=== PATIENT | male | born 1940 | race Caucasian/White ===

== ENCOUNTER 2017-08-04 13:58 | Emergency (ER) | payer MEDICARE ==
[~2017-08-04] VITALS: Ht 182.9 cm; Wt 86.6 kg
[~2017-08-04 13:58] MED LIST: AMLO10TA82 PO; AMOX500C2 PO; ASP81CT PO; ASPI-892 PO; ATOR80TA PO; CLN.1TRX PO; CLOP75TA PO; CRESTOR40 MG PO; EZET1TAB41 PO; FELO10TA31 PO; FISH1CAP15 PO; GBPN300C PO; GLIP10TA13 PO; GLIP5TAB13 PO; INSA10V1 SC; INSASP10V SQ; INSU100I14 SQ; INSU100I16 SQ; LEVO750T6 PO; METO100T5 PO; METO25TA PO; METO25TA2 PO; MULT-1030 PO; NF-ESOM40C PO; PHEN-633 PO; QUIN20TA15 PO; QUIN40TA17 PO; ROSU20TA14 PO; SULF1TAB38 PO; TMSL.4C PO
--- OUTSIDE RECORDS SUMMARY | 2017-08-04 14:05 | XMS REPORT | Continuity of Care Document ---
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 06/20/2011 Ot 397.0 TRICUSPID VALVE DISEASE 06/20/2011 Ot 401.9 HYPERTENSION NOS 06/20/2011 Ot 414.01 CORONARY ATHEROSCLEROSIS OF [place] CORON 06/20/2011 Ot 424.0 MITRAL VALVE DISORDER 06/20/2011 Ot 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 06/20/2011 Ot 440.0 AORTIC ATHEROSCLEROSIS 06/20/2011 Ot 599.0 URIN TRACT INFECTION NOS 06/20/2011 Ot 729.89 MUSCSKEL SYMPT LIMB NEC 06/20/2011 Ot 781.2 ABNORMALITY OF GAIT 06/20/2011 Ot V45.82 PERCUTANEOUS TRANSLUM CORON ANGIOPLASTY 05/06/2013 VICKIE DIXON MD Ot 413.9 ANGINA PECTORIS NEC/NOS 05/06/2013 VICKIE DIXON MD Ot V57.89 REHABILITATION PROC NEC 01/16/2015 SEBASTIÁN VALLE MD Ot 433.10 01/16/2015 SEBASTIÁN VALLE MD Ot 434.91 02/05/2015 SEBASTIÁN VALLE MD Ot 433.10 02/05/2015 SEBASTIÁN VALLE MD Ot 434.91 02/07/2015 SEBASTIÁN VALLE MD Ot 433.10 02/07/2015 SEBASTIÁN VALLE MD Ot 434.91 02/13/2015 SEBASTIÁN VALLE MD Ot 305.1 02/13/2015 SEBASTIÁN VALLE MD Ot 414.00 02/13/2015 SEBASTIÁN VALLE MD Ot 429.3 02/13/2015 SEBASTIÁN VALLE MD Ot 433.10 02/13/2015 SEBASTIÁN VALLE MD Ot 434.91 02/20/2015 JOSELUIS KELLEY Ot 250.00 02/20/2015 JOSELUIS KELLEY Ot 305.1 02/20/2015 JOSELUIS KELLEY Ot 414.00 02/20/2015 JOSELUIS KELLEY Ot 433.10 02/20/2015 JOSELUIS KELLEY Ot V58.67 03/02/2015 SEBASTIÁN VALLE MD Ot 433.10 03/02/2015 SEBASTIÁN VALLE MD Ot 434.91 03/02/2015 SEBASTIÁN VALLE MD Ot 305.1 03/02/2015 SEBASTIÁN VALLE MD Ot 414.00 03/02/2015 SEBASTIÁN VALLE MD Ot 429.3 03/02/2015 SEBASTIÁN VALLE MD Ot 433.10 03/02/2015 SEBASTIÁN VALLE MD Ot 434.91 03/10/2015 SEBASTIÁN VALLE MD Ot 305.1 03/10/2015 SEBASTIÁN VALLE MD Ot 414.00 03/10/2015 SEBASTIÁN VALLE MD Ot 429.3 03/10/2015 SEBASTIÁN VALLE MD Ot 433.10 03/10/2015 HALIE LE MD Ot 780.4 03/13/2015 HALIE LE MD Ot 780.4 03/14/2015 SEBASTIÁN VALLE MD Ot 250.00 DIAB BUCKY WO COMPL, TYPE II OR UNSPEC TY 03/14/2015 SEBASTIÁN VALLE MD Ot 272.4 HYPERLIPIDEMIA NEC/NOS 03/14/2015 SEBASTIÁN VALLE MD Ot 305.1 TOBACCO USE DISORDER 03/14/2015 SEBASTIÁN VALLE MD Ot 356.9 IDIO PERIPH NEURPTHY NOS 03/14/2015 SEBASTIÁN VALLE MD Ot 401.9 HYPERTENSION NOS 03/14/2015 SEBASTIÁN VALLE MD Ot 414.01 CORONARY ATHEROSCLEROSIS OF [place] CORON 03/14/2015 SEBASTIÁN VALLE MD Ot 414.2 CHRONIC TOTAL OCCLUSION OF CORONARY [place] 03/14/2015 SEBASTIÁN VALLE MD Ot 414.4 CORONARY ATHEROSCLEROSIS DUE TO CALCIFIE 03/14/2015 SEBASTIÁN VALLE MD Ot 426.0 ATRIOVENT BLOCK COMPLETE 03/14/2015 SEBASTIÁN VALLE MD Ot 438.20 LATE EFF-CEREBR DIS,HEMIPLEGIA AFFECTING 03/14/2015 SEBASTIÁN VALLE MD Ot 780.4 DIZZINESS AND GIDDINESS 03/14/2015 SEBASTIÁN VALLE MD Ot 794.30 ABN CARDIOVASC STUDY NOS 03/14/2015 SEBASTIÁN VALLE MD Ot V45.82 PERCUTANEOUS TRANSLUM CORON ANGIOPLASTY 03/14/2015 SEBASTIÁN VALLE MD, Ot V58.67 LONG-TERM (CURRENT) USE OF INSULIN 03/14/2015 SEBASTIÁN VALLE MD, Ot V58.69 OT MED,LT,CURRENT USE 03/30/2015 SEBASTIÁN VALLE MD Ot 305.1 03/30/2015 SEBASTIÁN VALLE MD Ot 414.00 03/30/2015 SEBASTIÁN VALLE MD Ot 429.3 03/30/2015 SEBASTIÁN VALLE MD Ot 433.10 04/11/2015 JOSELUIS KELLEY Ot 250.00 04/11/2015 JOSELUIS KELLEY Ot 305.1 04/11/2015 JOSELUIS KELLEY Ot 414.00 04/11/2015 JOSELUIS KELLEY Ot 433.10 04/11/2015 JOSELUIS KELLEY Ot V58.67 04/19/2015 JOSELUIS KELLEY Ot 250.00 04/19/2015 JOSELUIS KELLEY Ot 305.1 04/19/2015 JOSELUIS KELLEY Ot 414.00 04/19/2015 JOSELUIS KELLEY Ot 433.10 04/19/2015 JOSELUIS KELLEY Ot V58.67 04/26/2015 SEBASTIÁN VALLE MD Ot 414.01 CORONARY ATHEROSCLEROSIS OF [place] CORON 04/26/2015 SEBASTIÁN VALLE MD Ot 426.0 ATRIOVENT BLOCK COMPLETE 04/26/2015 SEBASTIÁN VALLE MD Ot 427.81 SINOATRIAL NODE DYSFUNCT 04/26/2015 SEBASTIÁN VALLE MD Ot 427.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 04/26/2015 SEBASTIÁN VALLE MD Ot 780.2 SYNCOPE AND COLLAPSE 04/26/2015 SEBASTIÁN VALLE MD Ot 780.4 DIZZINESS AND GIDDINESS 04/26/2015 SEBASTIÁN VALLE MD Ot V12.54 PERSONAL HX OF TIA, CEREBRAL INFARCTION 04/26/2015 SEBASTIÁN VALLE MD Ot V15.82 HISTORY OF TOBACCO USE 04/26/2015 SEBASTIÁN VALLE MD Ot V45.82 PERCUTANEOUS TRANSLUM CORON ANGIOPLASTY 04/26/2015 SEBASTIÁN VALLE MD, Ot V58.67 LONG-TERM (CURRENT) USE OF INSULIN 04/26/2015 SEBASTIÁN VALLE MD, Ot V58.69 OT MED,LT,CURRENT USE 05/20/2015 JOSELUIS KELLEY Ot 250.00 DIAB BUCKY WO COMPL, TYPE II OR UNSPEC TY 05/20/2015 JOSELUIS KELLEY Ot 305.1 TOBACCO USE DISORDER 05/20/2015 JOSELUIS KELLEY Ot 414.00 CORON ATHEROSCLER NOS TYPE VESSEL, NATIV 05/20/2015 JOSELUIS KELLEY Ot 433.10 CAROTID ARTERY OCCLUSION W O CEREBRAL IN 05/20/2015 JOSELUIS KELLEY Ot V58.67 LONG-TERM (CURRENT) USE OF INSULIN 08/04/2015 BRIDGET GAMBOA MD Ot E11.649 TYPE 2 DIABETES MELLITUS WITH HYPOGLYCEM 08/04/2015 BRIDGET GAMBOA MD Ot R55 SYNCOPE AND COLLAPSE 08/04/2015 BRIDGET GAMBOA MD Ot Z79.4 MCFP (CURRENT) USE OF INSULIN 10/26/2015 VICKIE PRESTON MD Ot G47.33 OBSTRUCTIVE SLEEP APNEA (ADULT) (PEDIATR 07/11/2016 EVERTON GARCIA MD Ot 592.0 CALCULUS OF KIDNEY 07/11/2016 EVERTON GARCIA MD Ot 599.70 HEMATURIA, UNSPECIFIED 07/11/2016 DENIZ KENT DO Ot 298.9 PSYCHOSIS NOS 07/11/2016 DENIZ KENT DO Ot 780.4 DIZZINESS AND GIDDINESS 07/11/2016 DENIZ KENT DO Ot 780.97 ALTERED MENTAL STATUS 07/11/2016 DENIZ KENT DO Ot 782.0 SKIN SENSATION DISTURB 07/11/2016 DENIZ KENT DO Ot 298.9 PSYCHOSIS NOS 07/11/2016 DENIZ KENT DO Ot 433.30 MULT BILTRAL ARTERY OCCLUSION WO CEREBRA 07/11/2016 DENIZ KENT DO Ot 780.97 ALTERED MENTAL STATUS 07/11/2016 DENIZ KENT DO Ot 298.9 PSYCHOSIS NOS 07/11/2016 DENIZ KENT DO Ot 435.9 TRANS CEREB ISCHEMIA NOS 07/11/2016 DENIZ KENT DO Ot 780.4 DIZZINESS AND GIDDINESS 07/11/2016 SEBASTIÁN VALLE MD Ot 305.1 TOBACCO USE DISORDER 07/11/2016 SEBASTIÁN VALLE MD Ot 414.00 CORON ATHEROSCLER NOS TYPE VESSEL, NATIV 07/11/2016 SEBASTIÁN VALLE MD Ot 429.3 CARDIOMEGALY 07/11/2016 SEBASTIÁN VALLE MD Ot 433.10 CAROTID ARTERY OCCLUSION W O CEREBRAL IN 07/11/2016 SEBASTIÁN VALLE MD Ot 434.91 CEREBRAL ART OCCLUSION NOS W CEREBRAL IN 07/11/2016 SEBASTIÁN VALLE MD Ot 305.1 TOBACCO USE DISORDER 07/11/2016 SEBASTIÁN VALLE MD Ot 414.00 CORON ATHEROSCLER NOS TYPE VESSEL, NATIV 07/11/2016 SEBASTIÁN VALLE MD Ot 429.3 CARDIOMEGALY 07/11/2016 SEBASTIÁN VALLE MD Ot 433.10 CAROTID ARTERY OCCLUSION W O CEREBRAL IN 07/11/2016 SEBASTIÁN VALLE MD Ot 433.10 CAROTID ARTERY OCCLUSION W O CEREBRAL IN 07/11/2016 SEBASTIÁN VALLE MD Ot 434.91 CEREBRAL ART OCCLUSION NOS W CEREBRAL IN 07/11/2016 HALIE LE MD Ot 780.4 DIZZINESS AND GIDDINESS 07/11/2016 SEBASTIÁN VALLE MD Ot 433.10 CAROTID ARTERY OCCLUSION W O CEREBRAL IN 07/11/2016 SEBASTIÁN VALLE MD Ot 434.91 CEREBRAL ART OCCLUSION NOS W CEREBRAL IN 07/11/2016 JOSELUIS KELLEY Ot 250.00 DIAB BUCKY WO COMPL, TYPE II OR UNSPEC TY 07/11/2016 JOSELUIS KELLEY Ot 305.1 TOBACCO USE DISORDER 07/11/2016 JOSELUIS KELLEY Ot 414.00 CORON ATHEROSCLER NOS TYPE VESSEL, NATIV 07/11/2016 JOSELUIS KELLEY Ot 433.10 CAROTID ARTERY OCCLUSION W O CEREBRAL IN 07/11/2016 JOSELUIS KELLYE Ot V58.67 LONG-TERM (CURRENT) USE OF INSULIN 07/14/2016 BRIDGET MORRELL MD Ot I51.9 HEART DISEASE, UNSPECIFIED 07/14/2016 BRIDGET MORRELL MD Ot I65.23 OCCLUSION AND STENOSIS OF [place]ILATERAL [place] 07/15/2016 SEBASTIÁN VALLE MD Ot I07.1 RHEUMATIC TRICUSPID INSUFFICIENCY 07/15/2016 SEBASTIÁN VALLE MD Ot I15.9 SECONDARY HYPERTENSION, UNSPECIFIED 07/15/2016 SEBASTIÁN VALLE MD Ot I51.7 CARDIOMEGALY 07/15/2016 SEBASTIÁN VALLE MD Ot I65.23 OCCLUSION AND STENOSIS OF [place]ATERAL [place] 07/29/2016 SEBASTIÁN VALLE MD Ot I07.1 RHEUMATIC TRICUSPID INSUFFICIENCY 07/29/2016 SEBASTIÁN VALLE MD Ot I51.7 CARDIOMEGALY 07/29/2016 SEBASTIÁN VALLE MD Ot I65.23 OCCLUSION AND STENOSIS OF [place]ILATERAL [place] 07/29/2016 SEBASTIÁN VALLE MD Ot I07.1 RHEUMATIC TRICUSPID INSUFFICIENCY 07/29/2016 SEBASTIÁN VALLE MD Ot I51.7 CARDIOMEGALY 07/29/2016 SEBASTIÁN VALLE MD Ot I65.23 OCCLUSION AND STENOSIS OF [place]ATERAL [place] 08/05/2016 BRIDGET MORRELL MD Ot I51.9 HEART DISEASE, UNSPECIFIED 08/05/2016 BRIDGET MORRELL MD Ot I65.23 OCCLUSION AND STENOSIS OF [place]ILATERAL [place] 08/06/2016 SEBASTIÁN VALLE MD Ot I07.1 RHEUMATIC TRICUSPID INSUFFICIENCY 08/06/2016 SEBASTIÁN VALLE MD Ot I15.9 SECONDARY HYPERTENSION, UNSPECIFIED 08/06/2016 SEBASTIÁN VALLE MD Ot I51.7 CARDIOMEGALY 08/06/2016 SEBASTIÁN VALLE MD Ot I65.23 OCCLUSION AND STENOSIS OF [place]ILATERAL [place] 08/07/2016 PETROS GUTIÉRREZ, BRIDGET Silva Ot I51.9 HEART DISEASE, UNSPECIFIED 08/07/2016 BRIDGET MORRELL MD Ot I65.23 OCCLUSION AND STENOSIS OF [place] 08/19/2016 SEBASTIÁN VALLE MD Ot I07.1 RHEUMATIC TRICUSPID INSUFFICIENCY 08/19/2016 SEBASTIÁN VALLE MD Ot I51.7 CARDIOMEGALY 08/19/2016 SEBASTIÁN VALLE MD Ot I65.23 OCCLUSION AND STENOSIS OF [place] 09/01/2016 SEBASTIÁN VALLE MD Ot I07.1 RHEUMATIC TRICUSPID INSUFFICIENCY 09/01/2016 SEBASTIÁN VALLE MD Ot I51.7 CARDIOMEGALY 09/01/2016 SEBASTIÁN VALLE MD Ot I65.23 OCCLUSION AND STENOSIS OF [place] Procedures Results Encounters ACCT No. Visit Date/Time Discharge Status Pt. Type Provider Facility Loc./Unit Complaint [id number] 07/28/2016 07:16:00 2015 23:59:59 CLS Outpatient SEBASTIÁN VALLE MD [facility] CARD LVH,TR,CAROTID ARTERY STENOSIS [id number] 07/14/2016 07:39:00 2015 23:59:59 CLS Outpatient SEBASTIÁN VALLE MD [facility] CARD LVH,TR [id number] 07/11/2016 14:18:00 2015 23:59:59 CLS Outpatient BRIDGET MORRELL MD [facility] RAD LVH,TR,DIASTOLIC DYSFUNCTION [id number] 10/25/2015 20:45:00 2015 06:40:00 DIS Outpatient MOHAN GUTIÉRREZ, VICKIE Zarate [facility] SLEEP SNORING,JANEL [id number] 08/04/2015 11:26:00 2014 13:22:00 DIS Emergency BRIDGET GAMBOA MD [facility] ER AMS [id number] 05/21/2015 09:00:00 2014 23:59:59 CLS Preadmit JOSELUIS KELLEY [facility] CARD CAD,EMILIO [id number] 02/19/2015 08:57:00 2014 00:01:00 DIS Outpatient JOSELUIS KELLEY [facility] CARD CAD,EMILIO [id number] 04/25/2015 09:23:00 2014 13:25:00 DIS Outpatient SEBASTIÁN VALLE MD [facility] CATH CHB,CAD,BRADYCARDIA,DIZZINESS [id number] 03/14/2015 08:55:00 2014 17:00:00 DIS Outpatient SEBASTIÁN VALLE MD [facility] CATH CAD,HTN,HLP,TOBACCOISM, COMPLETE HEART BLOCK [id number] 02/07/2015 07:43:00 2014 23:59:59 CLS Outpatient SEBASTIÁN VALLE MD [facility] CARD CAD,EMILIO,LVH [id number] 01/22/2015 07:55:00 2014 23:59:59 CLS Outpatient HALIE LE MD [facility] RT DIZZINESS, VERTIGO [id number] 01/19/2015 08:43:00 2014 23:59:59 CLS Outpatient SEBASTIÁN VALLE MD [facility] CARD CVA,CAD,EMILIO,LVH [id number] 01/05/2015 09:54:00 2014 23:59:59 CLS Outpatient SEBASTIÁN VALLE MD [facility] RAD CVA, CAROTID ARTERY STENOSIS [id number] 01/03/2015 17:29:00 2014 23:59:59 CLS Outpatient SEBASTIÁN VALLE MD [facility] LAB CVA,CAROTID ARTERY STENOSIS [id number] 01/20/2014 10:31:00 2013 23:59:59 CLS Outpatient DENIZ KENT DO [facility] RAD TRANS ISCHEMIC ATTACK [id number] 01/12/2014 14:21:00 2013 23:59:59 CLS Outpatient DENIZ KENT DO [facility] RAD CONFUSION,CHANGE IN MENTAL STATUS [id number] 01/10/2014 13:49:00 2013 23:59:59 CLS Outpatient DENIZ KENT DO [facility] RAD CONFUSION,CHANGE IN MENTAL STATUS [id number] 01/04/2014 11:08:00 2013 23:59:59 CLS Outpatient EVERTON GARCIA MD [facility] RAD HEMATURIA [id number] 05/06/2013 09:32:00 2012 12:53:00 DIS Outpatient VICKIE DIXON MD [facility] CR STABLE ANGINA [id number] 06/18/2011 08:15:00 Document Registration
[2017-08-04] MEDS ORDERED: NS IV 1000 ML 1,000 ML IV ONE (14:09)
[2017-08-04 14:17] LABS: BASOPHILS % (AUTO) 0 % (0-10); EOSINOPHILS # (AUTO) 0.2 10^3/uL (0.0-0.3); EOSINOPHILS % (AUTO) 2 % (0-10); LYMPHOCYTES # (AUTO) 2.3 X 10^3 (1.0-4.0); LYMPHOCYTES % (AUTO) 36 % (12-44); MEAN CORPUSCULAR HEMOGLOBIN 31 PG (25-34); MEAN CORPUSCULAR HGB CONC 35 G/DL (32-36); MEAN CORPUSCULAR VOLUME 90 FL (80-99); MEAN PLATELET VOLUME 10.7 FL (7.4-10.4); MONOCYTES # (AUTO) 0.7 X 10^3 (0.0-1.0); MONOCYTES % (AUTO) 11 % (0-12); NEUTROPHILS # (AUTO) 3.2 X 10^3 (1.8-7.8); NEUTROPHILS % (AUTO) 50 % (42-75); PLATELET COUNT 187 10^3/uL (130-400); RED CELL DISTRIBUTION WIDTH 12.5 % (10.0-14.5); WHITE BLOOD COUNT 6.4 10^3/uL (4.3-11.0)
--- NOTE | 2017-08-04 14:18 | ED Syncope ---
General Chief Complaint: Dizziness/Syncope Stated Complaint: SYNCOPE Source of Information: Patient, EMS, Spouse Exam Limitations: Other (vascular dementia) History of Present Illness Time Seen by Provider: 13:58 Initial Comments Patient arrives at ER by EMS with a chief complaint of just prior to arrival his found him in the garage sweeping leaves out leaning against the sidewall of the garage not making much sense. She lowered him to the ground and then got him a glucose mint and check his blood sugar immediately and it was 130. 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 She's noticed no change in his speech or change in his facial asymmetry. He has not had a stroke and no recent changes in his medications. He has been taking his medications appropriately. He has a history of seizures for which he has been placed on Dilantin 2 years ago. He had it checked about 2 months ago. He had his pacemaker checked 2 weeks ago at his sql server consultant, Dr. Karimi's office. For the past several days to week his son has noted the patient has been a very heavy sleeper when he comes by to check on him over his lunch. And difficult to arouse sometime's. His blood sugars also been elevated in the 200s and 300s in the afternoon and evening and this has concerned his that maybe he has an infection so she took him to Dr. Kent's office and had him checked out but they did not find anything in his urine or blood work. This was about 1-2 weeks ago. Several months ago the patient's metoprolol was changed from 25 mg succinate twice a day to 100 mg succinate daily at bedtime. EMS denies incontinence or postictal state when they arrived. The patient denies pain, shortness of breath, nausea, diarrhea, vomiting, rash, fevers, chills. 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 Allergies and Home Medications Allergies Coded Allergies: No Known Drug Allergies (Unverified , 06/17/11) Home Medications Amlodipine Besylate 10 Mg Tablet, 10 MG PO DAILY, (Reported) Aspirin 81 Mg Tabec, 81 MG PO HS, (Reported) Clopidogrel Bisulfate 75 Mg Tablet, 75 MG PO DAILY, (Reported) Esomeprazole Mag Trihydrate 40 Mg Capsule.dr, 40 MG PO DAILY, #30 (Reported) Fish Oil/Dha/Epa 1 Each Capsule, 1 EACH PO TID, #100 Prescribed by: SEBASTIÁN KARIMI on 03/14/15 1139 Gabapentin 300 Mg Cap, 600 MG PO BID, (Reported) take 2 (300 mg) capsules twice daily Glipizide 10 Mg Tablet, 5 MG PO DAILY, (Reported) take 1/2 (10 mg) tablet daily Insulin Aspart 100 Unit/1 Ml Insuln.pen, 0 SQ UD, (Reported) Insulin Detemir 100 Unit/1 Ml Insuln.pen, 45 UNIT SQ BID, (Reported) Metoprolol Succinate 25 Mg Tab.sr.24h, 100 MG PO HS, (Reported) Multivits,Ca,Min/Iron/FA/Lycop 1 Each Tablet, 1 EACH PO DAILY, (Reported) Phenytoin Sodium 100 Mg Cap, 100 MG PO TID, (Reported) Quinapril Hcl 40 Mg Tablet, 40 MG PO DAILY, (Reported) Rosuvastatin Calcium 20 Mg Tablet, 40 MG PO HS, (Reported) Tamsulosin Hcl 0.4 Mg Cap, 0.4 MG PO DAILY, (Reported) HOLD IF sbp <110 Constitutional: see HPI, No chills, No diaphoresis EENTM: No ear pain, No eye pain Respiratory: No cough, No orthopnea, No phlegm, No short of breath, No wheezing Cardiovascular: No chest pain, No palpitations, syncope Gastrointestinal: No abdominal pain, No constipation, No diarrhea, No nausea, No vomiting Genitourinary: No discharge, No dysuria, frequency, hesitancy, No incontinence , nocturia Musculoskeletal: No back pain, No joint pain, No joint swelling Skin: No dryness, No pruritus, No rash Psychiatric/Neurological: Denies Headache, Denies Numbness, Denies Paresthesia , Other (hard of hearing especially on the left side.) Past Khthlid-Nvrxqf-Opxtpz Hx Patient Social History Alcohol Use: Denies Use Recreational Drug Use: No Smoking Status: Former Smoker (smoked a pipe when he was younger) Neurological Neurological Disorders: Stroke Genitourinary Genitourinary Disorders: Prostate Problems Endocrine Endocrine Disorders: Diabetes, Insulin dep Physical Exam Vital Signs Vital Sign - Last 12Hours 08/04/17 14:00 Temp 97.9 Pulse 60 Resp 15 B/P (MAP) 138/81 Pulse Ox 93 Capillary Refill : General Appearance: No Apparent Distress, WD/WN HEENT: PERRL/EOMI, Pharynx Normal (mildly dry mucous membranes.) Neck: Full Range of Motion, Normal Inspection, Non Tender, Supple Cardiovascular: Regular Rate, Rhythm, No JVD, No Murmur, Normal Peripheral Pulses Respiratory: Chest Non Tender, Lungs Clear, Normal Breath Sounds, No Accessory Muscle Use Gastrointestinal: Normal Bowel Sounds, Non Tender, Soft Neurologic/Psychiatric: Alert, Other (oriented to person and place only) Cranial Nerves: Normal Speech, PERRL, Facial Droop (right-sided), Other (hard of hearing left side worse than right) Coordination/Gait: Normal Finger to Nose, Negative Romberg's Sign Motor/Sensory: No Motor Deficit, No Sensory Deficit, No Pronator Drift Skin: Normal Color, Warm/Dry Lymphatic: No Adenopathy Progress/Results/Core Measures Results/Orders Lab Results Laboratory Tests Test 08/04/17 14:00 08/04/17 15:17 Range/Units White Blood Count 6.4 4.3-11.0 10^3/uL Red Blood Count 4.20 L 4.35-5.85 10^6/uL Hemoglobin 13.2 L 13.3-17.7 G/DL Hematocrit 38 L 40-54 % Mean Corpuscular Volume 90 80-99 FL Mean Corpuscular Hemoglobin 31 25-34 PG Mean Corpuscular Hemoglobin Concent 35 32-36 G/DL Red Cell Distribution Width 12.5 10.0-14.5 % Platelet Count 187 130-400 10^3/uL Mean Platelet Volume 10.7 H 7.4-10.4 FL Neutrophils (%) (Auto) 50 42-75 % Lymphocytes (%) (Auto) 36 12-44 % Monocytes (%) (Auto) 11 0-12 % Eosinophils (%) (Auto) 2 0-10 % Basophils (%) (Auto) 0 0-10 % Neutrophils # (Auto) 3.2 1.8-7.8 X 10^3 Lymphocytes # (Auto) 2.3 1.0-4.0 X 10^3 Monocytes # (Auto) 0.7 0.0-1.0 X 10^3 Eosinophils # (Auto) 0.2 0.0-0.3 10^3/uL Basophils # (Auto) 0.0 0.0-0.1 10^3/uL Sodium Level 134 L 135-145 MMOL/L Potassium Level 3.7 3.6-5.0 MMOL/L Chloride Level 104 98-107 MMOL/L Carbon Dioxide Level 25 21-32 MMOL/L Anion Gap 5 5-14 MMOL/L Blood Urea Nitrogen 19 H 7-18 MG/DL Creatinine 1.15 0.60-1.30 MG/DL Estimat Glomerular Filtration Rate > 60 BUN/Creatinine Ratio 17 Glucose Level 145 H 70-105 MG/DL Calcium Level 9.2 8.5-10.1 MG/DL Magnesium Level 2.0 1.8-2.4 MG/DL Total Bilirubin 0.5 0.1-1.0 MG/DL Aspartate Amino Transf (AST/SGOT) 20 5-34 U/L Alanine Aminotransferase (ALT/SGPT) 28 0-55 U/L Alkaline Phosphatase 102 40-136 U/L B-Type Natriuretic Peptide 212.2 H <100.0 PG/ML Total Protein 6.5 6.4-8.2 GM/DL Albumin 3.4 3.2-4.5 GM/DL Thyroid Stimulating Hormone (TSH) 0.88 0.35-4.94 UIU/ML Phenytoin (Dilantin) Level 8.5 L 10.0-20.0 UG/ML Urine Color YELLOW Urine Clarity CLEAR Urine pH 7 5-9 Urine Specific [place] 1.015 L 1.016-1.022 Urine Protein 3+ H NEGATIVE Urine Glucose (UA) NEGATIVE NEGATIVE Urine Ketones NEGATIVE NEGATIVE Urine Nitrite NEGATIVE NEGATIVE Urine Bilirubin NEGATIVE NEGATIVE Urine Urobilinogen NORMAL NORMAL MG/DL Urine Leukocyte Esterase 1+ H NEGATIVE Urine RBC (Auto) 1+ H NEGATIVE Urine RBC 0-2 /HPF Urine WBC 2-5 /HPF Urine Squamous Epithelial Cells 5-10 /HPF Urine Crystals NONE /LPF Urine Bacteria NEGATIVE /HPF Urine Casts PRESENT /LPF Urine Hyaline Casts 25-50 H /LPF Urine Mucus MODERATE H /LPF Urine Culture Indicated NO My Orders Orders - JESS DAWKINS Ekg Tracing (08/04/17 14:00) Ct Head Wo (08/04/17 14:09) BNP (08/04/17 14:09) Cbc With Automated Diff (08/04/17 14:09) Comprehensive Metabolic Panel (08/04/17 14:09) Magnesium (08/04/17 14:09) Thyroid Stimulating Hormone (08/04/17 14:09) Ua Culture If Indicated (08/04/17 14:09) Chest 1 View, Ap/Pa Only (08/04/17 14:09) Saline Lock/Iv-Start (08/04/17 14:09) Ns Iv 1000 Ml (Sodium Chloride 0.9%) (08/04/17 14:09) Phenytoin (Dilantin) (08/04/17 14:09) Continuous Ekg Monitoring (08/04/17 14:09) Medications Given in ED Current Medications Medications Dose Ordered Sig/Amber Route Start Time Stop Time Status Last Admin Dose Admin Sodium Chloride 1,000 ml @ 0 mls/hr Q0M ONCE IV 08/04/17 14:09 08/04/17 14:13 DC 08/04/17 14:00 1,000 MLS/HR Vital Signs/I&O Vital Sign - Last 12Hours 08/04/17 14:00 Temp 97.9 Pulse 60 Resp 15 B/P (MAP) 138/81 Pulse Ox 93 Intake and Output 08/05/17 00:00 Intake Total 1000 ml Balance 1000 ml Progress Note #1: Time: 14:28 Progress Note 07/14/16: Echocardiogram from 1 year ago shows EF of 60% qlty-tr-gcudandi mitral regurg and mild tricuspid regurg without aortic stenosis or regurgitation. Pulmonary artery pressures 35 mmHg. Dilated atrium and left ventricular hypertrophy. 07/28/2016: Stress test from 1 year ago shows baseline left bundle-branch block and dilated left ventricle with diffuse left ventricular hypokinesia most pronounced of the inferior wall and inferior lateral segment and inferior apical segment. Progress Note #2: Time: 14:58 Progress Note Phenytoin level is marginally low. This could result in more absence seizure's. CT rules out normal pressure hydrocephalus, stroke, bleed. Anemia is not clinically significant. No white count indicate infection. We will try and obtain urine from him after giving him some fluids and make sure he does not have a UTI. Progress Note #3: Time: 16:15 Progress Note Patient is sneezing in bed with a normal blood pressure, blood sugar and vitals. He has no complaints been here. When he sleeps he starts snoring loudly and wakes himself and never sleeps for more than about a minute to 2 minutes at a time. His notes that they have a CPAP machine and he does have a diagnosis of obstructive sleep apnea but the patient will get up in the middle the night several times to go to the bathroom because of his urinary retention and hesitancy and forgets to put the mask back on following day his vascular dementia. She says however during the day when he sits up in his chair he will sleep very well in a very deep sleep usually starting about 10:00 in the morning. She will tell her son to stop waking the patient up when he comes by over his lunch break. She will discuss strategies to increase his utilization of the CPAP with the primary care physician as well as urologist by controlling his urinary hesitancy better. We discussed the mildly increased BNP and she will call the sql server consultant and have him evaluated in the clinic for his blood pressure medications and possible use of a diuretic. ECG Initial ECG Impression Date: Aug 04, 2017 Initial ECG Impression Time: 14:01 Initial ECG Rate: 62 Initial ECG Intervals: QT (529) Initial ECG Impression: Nonspecific Changes Initial ECG Comparisson: Unchanged (compared to 08/04/2015) Comment Complete heart block with atrial ventricular dual paced rhythm. Unchanged from comparison EKG 2014. Diagnostic Imaging Diagonstic Imaging: Xray Plain Films/CT/US/NM/MRI: chest Comments VIA [facility], [facility]. [place], [place] NAME: WEI PARADA [facility] REC#: [id number] PT STATUS: REG ER : 1940 PHYSICIAN: JESS DAWKINS MD ADMIT DATE: 08/04/17/ER Draft Date of Exam:08/04/17 CHEST 1 VIEW, AP/PA ONLY EXAMINATION: Portable upright radiograph of the chest. INDICATION: Dizziness and syncope. FINDINGS: The heart is moderately enlarged. The lungs are clear. There is no effusion or pneumothorax. Mediastinum and melchor appear unremarkable. There is a left sided pacemaker with 2 cardiac leads seen. IMPRESSION: Cardiomegaly. Dictated on workstation # [id number] Dict: 08/04/17 1443 Trans: 08/04/17 1447 [facility] [id number] Interpreted by: FARSHAD CARRANZA MD Electronically signed by: Reviewed: Reviewed by Me Diagonstic Imaging: CT Plain Films/CT/US/NM/MRI: head Comments VIA [place], [place] NAME: WEI PARADA [facility] REC#: [id number] PT STATUS: REG ER : 1940 PHYSICIAN: JESS DAWKINS MD ADMIT DATE: 08/04/17/ER Draft Date of Exam:08/04/17 CT HEAD WO PROCEDURE: CT head without contrast. TECHNIQUE: Multiple contiguous axial images were obtained through the brain without the use of intravenous contrast. INDICATION: Syncope and dizziness. FINDINGS: There is no intracranial hemorrhage, edema or mass effect. The brain parenchyma demonstrates periventricular and deep white hypodensities compatible with chronic microvascular ischemic changes. No hydrocephalus. No extra-axial fluid collection seen. The calvarium, the paranasal sinuses and the orbits visualized portions appear grossly unremarkable. IMPRESSION: White matter findings suggestive of chronic microvascular changes seen. No acute process. Dictated on workstation # [id number] Dict: 08/04/17 1445 Trans: 08/04/17 1452 [facility] [id number] Interpreted by: FARSHAD CARRANZA MD Electronically signed by: Reviewed: Reviewed by Me Departure Impression Impression: Primary Impression: Syncope and collapse Additional Impression: Obstructive sleep apnea of adult Disposition: 01 HOME, SELF-CARE Condition: Stable Departure-Patient Inst. Decision time for Depature: 16:18 Referrals: DENIZ KENT DO (PCP/Family) Primary Care Physician Patient Instructions: Syncope (Fainting) (DC) Add. Discharge Instructions: Please contact your sql server consultant to discuss the laboratory and blood pressure findings and see if any changes need to be made to include a diuretic. Please contact your primary care physician and the urologist to see if they can do anything to improve his obstructive sleep apnea and CPAP mask use by decreasing his frequent nighttime urination. If he begins to have new or worrisome symptoms such as fevers, nausea, chest pain, shortness of breath he should return to the ER. All discharge instructions reviewed with patient and/or family. Voiced understanding. Copy Copies To 1: DENIZ KENT DO Copies To 2: TORISEBASTIÁN MORILLO MD, TITUS J Aug 04, 2017 14:18
[2017-08-04 14:29] LABS: ALANINE AMINOTRANSFERASE 28 U/L (0-55); ALBUMIN 3.4 GM/DL (3.2-4.5); ANION GAP 5 MMOL/L (5-14); ASPARTATE AMINO TRANSFERASE 20 U/L (5-34); BILIRUBIN,TOTAL 0.5 MG/DL (0.1-1.0); BLOOD UREA NITROGEN 19 MG/DL (7-18); BUN/CREATININE RATIO 17; CALCIUM 9.2 MG/DL (8.5-10.1); CARBON DIOXIDE 25 MMOL/L (21-32); CHLORIDE 104 MMOL/L (98-107); CREATININE SERUM 1.15 MG/DL (0.60-1.30); GFR ESTIMATED > 60; GLUCOSE 145 MG/DL (70-105); POTASSIUM 3.7 MMOL/L (3.6-5.0); SODIUM 134 MMOL/L (135-145); TOTAL PROTEIN 6.5 GM/DL (6.4-8.2)
--- NOTE | 2017-08-04 14:47 | Diagnostic Imaging Report ---
EXAMINATION: Portable upright radiograph of the chest. INDICATION: Dizziness and syncope. FINDINGS: The heart is moderately enlarged. The lungs are clear. There is no effusion or pneumothorax. Mediastinum and melchor appear unremarkable. There is a left sided pacemaker with 2 cardiac leads seen. IMPRESSION: Cardiomegaly. Dictated by: Dictated on workstation # [id number]
[2017-08-04 14:49] LABS: THYROID STIMULATING HORMONE 0.88 UIU/ML (0.35-4.94)
--- NOTE | 2017-08-04 14:53 | Diagnostic Imaging Report ---
PROCEDURE: CT head without contrast. TECHNIQUE: Multiple contiguous axial images were obtained through the brain without the use of intravenous contrast. INDICATION: Syncope and dizziness. FINDINGS: There is no intracranial hemorrhage, edema or mass effect. The brain parenchyma demonstrates periventricular and deep white hypodensities compatible with chronic microvascular ischemic changes. No hydrocephalus. No extra-axial fluid collection seen. The calvarium, the paranasal sinuses and the orbits visualized portions appear grossly unremarkable. IMPRESSION: White matter findings suggestive of chronic microvascular changes seen. No acute process. Dictated by: Dictated on workstation # [id number]
[2017-08-04 15:24] LABS: BILIRUBIN,URINE NEGATIVE (NEGATIVE); KETONES,URINE NEGATIVE (NEGATIVE); LEUKOCYTE ESTERASE ,URINE 1+ (NEGATIVE); NITRITE,URINE NEGATIVE (NEGATIVE); PH,URINE 7 (5-9); PROTEIN,URINE 3+ (NEGATIVE); UROBILINOGEN,URINE NORMAL (NORMAL)
[2017-08-04 15:49] LABS: HYALINE CASTS, URINE 25-50 /LPF
[2017-08-04 16:34] VITALS: BP 138/81
== END 2017-08-04 16:34 | disposition home or self-care (01) ==
LOC: EDUNIT# 13:58 → ER 14:00
DX: R55 Syncope and collapse (principal); G47.33 Obstructive sleep apnea (adult) (pediatric); E11.9 Type 2 diabetes mellitus without complications; Z86.73 Personal history of transient ischemic attack (TIA), and cerebral infarction without residual deficits; Z87.891 Personal history of nicotine dependence; Z79.4 Long term (current) use of insulin; Z79.82 Long term (current) use of aspirin; Z87.438 Personal history of other diseases of male genital organs
CPT/HCPCS: 36415; 70450; 71010; 80053; 80185; 81000; 83735; 83880; 84443; 85025; 93005; 96360

== ENCOUNTER → 2017-12-11 | Outpatient (CLI) | payer MEDICARE | LOC: CARD 10:52 | PROVIDERS: ATTEND Internal Medicine Cardiovascular Disease | DX: I35.8 Other nonrheumatic aortic valve disorders (principal); I25.10 Atherosclerotic heart disease of native coronary artery without angina pectoris; I44.2 Atrioventricular block, complete; I65.29 Occlusion and stenosis of unspecified carotid artery; E11.9 Type 2 diabetes mellitus without complications; I51.7 Cardiomegaly; I34.0 Nonrheumatic mitral (valve) insufficiency | CPT/HCPCS: 93306 ==

== ENCOUNTER → 2018-08-12 | Outpatient (CLI) | payer MEDICARE | LOC: CARD 12:53 | PROVIDERS: ATTEND Internal Medicine Cardiovascular Disease | DX: I25.10 Atherosclerotic heart disease of native coronary artery without angina pectoris (principal); I44.2 Atrioventricular block, complete; I65.29 Occlusion and stenosis of unspecified carotid artery; E11.40 Type 2 diabetes mellitus with diabetic neuropathy, unspecified; I08.1 Rheumatic disorders of both mitral and tricuspid valves | CPT/HCPCS: 93306 ==

== ENCOUNTER 2018-09-06 12:16 | Observation (INO) | payer MEDICARE ==
[~2018-09-06] VITALS: Ht 182.9 cm; Wt 86.6 kg
[~2018-09-06 12:16] MED LIST changes: -AMIO200T4 PO; -AMLO10TA6 PO; -APIX5TAB PO; -ATOR40TA70 PO; -CARB1TAB17 PO; -GABA-488 PO; -INSU100I29 SQ; -METO-395 PO; -MULT-35 PO; -PHEN100C11 PO; -PHEN100C4 PO; -QUIN40TA14 PO; -TAMS0.4C2 PO
[2018-09-06 13:04] VITALS: BP 169/73
[2018-09-06] MEDS ORDERED: NS IV 1000 ML 1,000 ML IV SCH (13:30)
[2018-09-06 13:51] LABS: BASOPHILS % (AUTO) 0 % (0-10); EOSINOPHILS # (AUTO) 0.1 10^3/uL (0.0-0.3); EOSINOPHILS % (AUTO) 0 % (0-10); HEMATOCRIT 41 % (40-54); HEMOGLOBIN 13.7 G/DL (13.3-17.7); LYMPHOCYTES # (AUTO) 2.1 X 10^3 (1.0-4.0); LYMPHOCYTES % (AUTO) 16 % (12-44); MEAN CORPUSCULAR HEMOGLOBIN 32 PG (25-34); MEAN CORPUSCULAR HGB CONC 34 G/DL (32-36); MEAN CORPUSCULAR VOLUME 93 FL (80-99); MEAN PLATELET VOLUME 10.7 FL (7.4-10.4); MONOCYTES # (AUTO) 1.6 X 10^3 (0.0-1.0); MONOCYTES % (AUTO) 13 % (0-12); NEUTROPHILS # (AUTO) 9.2 X 10^3 (1.8-7.8); NEUTROPHILS % (AUTO) 71 % (42-75); PLATELET COUNT 201 10^3/uL (130-400); RED BLOOD COUNT 4.34 10^6/uL (4.35-5.85); RED CELL DISTRIBUTION WIDTH 12.8 % (10.0-14.5)
[2018-09-06] MEDS ORDERED: INSU100I29 SQ (14:15)
[2018-09-06] MEDS ORDERED: CATHETER FLUSH 10 ML SYR IV PRN (14:15)
[2018-09-06] MEDS ORDERED: FISH1CAP15 PO (14:15)
[2018-09-06] MEDS ORDERED: PHEN100C11 PO (14:15)
[2018-09-06] MEDS ORDERED: PHEN100C4 PO (14:15)
[2018-09-06] MEDS ORDERED: QUIN40TA14 PO (14:15)
[2018-09-06] MEDS ORDERED: GABA-488 PO (14:15)
[2018-09-06] MEDS ORDERED: INSU100I14 SQ (14:15)
[2018-09-06] MEDS ORDERED: NF-ESOM40C PO (14:15)
[2018-09-06] MEDS ORDERED: TAMS0.4C2 PO (14:15)
[2018-09-06] MEDS ORDERED: AMLO10TA6 PO (14:15)
[2018-09-06] MEDS ORDERED: GLIP10TA13 PO (14:15)
[2018-09-06] MEDS ORDERED: AMIO200T4 PO (14:15)
[2018-09-06] MEDS ORDERED: APIX5TAB PO (14:15)
[2018-09-06] MEDS ORDERED: MULT-35 PO (14:15)
[2018-09-06] MEDS ORDERED: ATOR40TA70 PO (14:15)
[2018-09-06] MEDS ORDERED: METO-395 PO (14:15)
--- NOTE | 2018-09-06 14:59 | ST Dysphagia Evaluation ---
Speech Evaluation-General Medical Diagnosis Altered Mental Status, Brain Bleed Onset Date: Sep 06, 2018 Therapy Diagnosis Therapy Diagnosis: Oropharyngeal Phase Precautions Precautions: Fall Precautions/Isolations: Fall Prevention Patient exhibits normal function for swallowing of all textures. Referral Referring Physician: Dr. Damon Reason for Referral: Consult (P) Medical History Current History Altered Mental Status, Possible Brain Bleed Reviewed History: Yes Speech PLF/Current-Dysphagia Prior Level of Function Patient states he has had no difficulty with swallowing prior to this hospitalization, Subjective Patient pleasant and cooperative with dysphagia evaluation. Cognitive Status Patient Orientation: Person, Place, Time, Eyes Open, Normal For Age Oral Motor Skills Denture Type: Full- Upper & Lower Current Food Consistancy: Regular, Thin Liquids Ability to Follow Directions: Excellent Oral Expression Ability: No Impairment Voice Voice Phonatory-Based Quality: Normal Voice Pitch: Normal Voice Loudness: Normal Face Facial Symmetry: Asymmetrical Patient had Martines's Palsy in the . Oral-Facial Assessment Labial Seal Description: Droops Left Smile: Droops Left Puff Cheeks: Reduced Strength Patient exhibits slight droop on the left due to Martines's Palsy in the late . Lingual Protrusion: Normal Lingual ROM: Normal Lingual Strength: Normal Gag Reflex Response: Absent Pharynx Velopharyngeal Move.: Normal Volitional Dry Swallow: Yes Not ellicited Can Clear Throat Volitionally: Yes Productive Cough: No Dysphagia Evaluation Consistencies Presented: Regular, Thin Liquid, Mechanical Soft, Pureed Within functional limits for all consistencies. Dietary Recommendations: Regular Liquid Recommendations: Thin Patient is considered safe for regular diet consistencies and thin liquids. Swallowing Precautions: Alternate Liquids/Solids, Liquids from Cup, Sitting 90 Degrees 30 Post Intake Patient is not recommended for skilled ST at this time. Dysphagia Evaluation Summary Patient is not recommended for skilled ST at this time due to adequate ROM, strength and coordination for all consistencies including regular and thin liquids. Patient does exhibit a slight left side droop due to Martines's Palsy in the late , however this deviation does not interfere with normal swallowing or mastication function. Barriers to Learning Patient has a possible brain bleed. Speech Short Term Goals Short Term Goals Short Term Goals Patient will tolerate regular diet level and thin liquids without s/s of aspiration. Speech Residential Goals Residential Goals Patient will maintain adequate nutrition/hydration via safe effective swallow function. Speech-Plan Patient/Family Goals Patient/Family Goals: Patient plans to return home with his post hospital stay. Treatment Plan Speech Therapy Treatment Plan: Modify Plan, See Comments Patient does not require skilled ST at this time. Treatment Duration: Sep 06, 2018 Frequency: Modified Program (IRF) Estimated Hrs Per Day: Other Rehab Potential: Good Pt/Family Agrees to Plan: Yes Safety Risks/Education Teaching Recipient: Patient, Significant Other Teaching Methods: Discussion Response to Teaching: Verbalize Understanding Education Topics Provided: Safety strategies for regular diet level. Time Speech Therapy Time In: 14:45 Speech Therapy Time Out: 15:00 Total Billed Time: 15 Billed Treatment Time [address] Sep 06, 2018 14:58
--- NOTE | 2018-09-06 15:30 | Diagnostic Imaging Report ---
INDICATION: Pacemaker evaluation for MRI. Portable chest at 03:33 p.m. FINDINGS: There is a left subclavian dual chamber pacemaker with leads projecting over the right atrium and right ventricle. There are no abandoned leads. There are coronary stents visible. Lungs are clear. There is no effusion or pneumothorax. IMPRESSION: No acute abnormalities in the chest. Dictated by: Dictated on workstation # [id number]
[2018-09-06 16:05] VITALS: BP 115/82
--- NOTE | 2018-09-06 16:23 | Diagnostic Imaging Report ---
CLINICAL INDICATION: Patient with difficulty walking. Exam: MRI of the brain performed without IV contrast. Sequences include axial DWI, ADC map, axial T2, axial FLAIR, axial T1, coronal gradient echo, and sagittal T1. Comparison: MRI of the brain performed without and with IV contrast dated 01/20/2014. Head CT without contrast dated 09/06/2018. Findings: Motion artifact obscures portions of the brain anatomical detail. There is no evidence of acute cerebral infarct, intracranial hemorrhage, brain herniation, or midline shift. The area of possible intracranial blood along the posterior midline region does not represent blood and represents dural reflection. There is progression of focal, patchy and confluent areas of high T2 signal white matter changes seen throughout both cerebral hemispheres and periventricular regions and woody and bilateral cerebellar regions, likely representing chronic small vessel ischemic disease and leukoaraiosis. There is diffuse brain parenchymal volume loss which has progressed with the temporal lobes affected the most. There is calcification involving the intradural left vertebral artery which is better seen on the comparison head CT. Otherwise, [place] vascular structures are similar appearing. Basal cisterns are unremarkable. The pituitary gland, sella, and suprasellar regions are unremarkable as visualized. Extra cranial soft tissue, skull, and orbits show no significant interval abnormality. There is mild mucosal thickening involving both maxillary sinuses. IMPRESSION: 1: There is increased size of the lateral and third ventricles which is suspected to be due to progression of brain parenchymal volume loss and central white matter changes. Clinical correlation would better evaluate if there is concern for normal pressure hydrocephalus. 2: Otherwise, there is no evidence of acute cerebral infarction, intracranial hemorrhage, hydrocephalus, or brain herniation. 3: There is progression of diffuse severe chronic small vessel ischemic disease and leukoaraiosis. 4: There is progression of diffuse brain parenchymal volume loss with the temporal lobes affected the most. Dictated by: Dictated on workstation # [id number]
[2018-09-06] MEDS ORDERED: FLU QUADRIvalent (5+ YOA) 2018-2019 (AFLURIA) 0.5 ML IM ONE (16:45)
[2018-09-06] MEDS: inSUlin ASPART (NovoLOG) 1 UNIT/0.01 ML (CHARGE PER UNIT) SC SCH ×2 (16:54→20:52)
--- NOTE | 2018-09-06 17:29 | Consultation-Cardiology ---
HPI-Cardiology Cardiology Consultation Date of Consultation 09/06/18 Date of Admission Time Seen by Provider: 17:22 Indication: Generalized weakness and confusion HPI 77 years old gentleman with extensive cardiovascular history, history of CVA in the past. It was noted that he has become more lethargic recently, some weakness of his left leg was noted. Became more confused recently. He was admitted directly after having an abnormal CT scan suggestive of intracranial bleed. During admission MRI was done which showed general atrophy with no active bleeding. He denied any chest pain, still disoriented to time and place and person. No palpitation. Generalized weakness was noted. No fever or chills. Home Medications & Allergies Allergies: Coded Allergies: No Known Drug Allergies (Unverified , 09/06/18) Home Medication List Reviewed: Yes ILE-[id number]-[id number] Hx Patient Social History Marital Status: Employed/Student: retired Alcohol Use: Denies Use Recreational Drug Use: No Smoking Status: Never a Smoker Type Used: Pipe Recent Foreign Travel: No Recent Infectious Disease Expo: No Recent Hopitalizations: No Physical Abuse Screen: No Sexual Abuse: No Immunizations Up To Date Date of Pneumonia Vaccine: Jul 12, 2010 Past Medical History As described below Family Medical History Family Medical Hx Noncontributory to his current condition Review of Systems Constitutional: see HPI, malaise, weakness EENTM: see HPI, no symptoms reported Respiratory: see HPI; No cough, No dyspnea on exertion, No hemoptysis, No orthopnea, No phlegm, No short of breath, No stridor, No wheezing, No other Cardiovascular: see HPI; No chest pain; edema; No Hx of Intervention, No palpitations, No syncope, No vascular heart diseas, No other Gastrointestinal: no symptoms reported, see HPI Genitourinary: see HPI, incontinence Musculoskeletal: see HPI, muscle weakness Skin: no symptoms reported, see HPI Psychiatric/Neurological: See HPI, Weakness Reviewed Test Results Reviewed Test Results Lab Laboratory Tests Test 09/06/18 13:45 09/06/18 16:11 Range/Units White Blood Count 13.0 H 4.3-11.0 10^3/uL Red Blood Count 4.34 L 4.35-5.85 10^6/uL Hemoglobin 13.7 13.3-17.7 G/DL Hematocrit 41 40-54 % Mean Corpuscular Volume 93 80-99 FL Mean Corpuscular Hemoglobin 32 25-34 PG Mean Corpuscular Hemoglobin Concent 34 32-36 G/DL Red Cell Distribution Width 12.8 10.0-14.5 % Platelet Count 201 130-400 10^3/uL Mean Platelet Volume 10.7 H 7.4-10.4 FL Neutrophils (%) (Auto) 71 42-75 % Lymphocytes (%) (Auto) 16 12-44 % Monocytes (%) (Auto) 13 H 0-12 % Eosinophils (%) (Auto) 0 0-10 % Basophils (%) (Auto) 0 0-10 % Neutrophils # (Auto) 9.2 H 1.8-7.8 X 10^3 Lymphocytes # (Auto) 2.1 1.0-4.0 X 10^3 Monocytes # (Auto) 1.6 H 0.0-1.0 X 10^3 Eosinophils # (Auto) 0.1 0.0-0.3 10^3/uL Basophils # (Auto) 0.0 0.0-0.1 10^3/uL Troponin I < 0.30 <0.30 NG/ML Glucometer 165 H 70-110 MG/DL Physical Exam Vital Signs Vital Signs - First Documented 09/06/18 13:04 Temp 98.9 Pulse 64 Resp 18 B/P (MAP) 169/73 (105) Pulse Ox 96 O2 Delivery Room Air Capillary Refill : Less Than 3 Seconds Height, Weight, BMI Height: 6'0.00" Weight: 191lbs. 0.0oz. 86.002747bo; 25.9 BMI Method:Stated General Appearance: No Apparent Distress, WD/WN Eyes: Bilateral Eye Normal Inspection, Bilateral Eye PERRL, Bilateral Eye EOMI HEENT: PERRL/EOMI, TMs Normal, Normal ENT Inspection, Pharynx Normal Neck: Full Range of Motion, Normal Inspection, Non Tender, Supple, Carotid Bruit Respiratory: Chest Non Tender, Lungs Clear, Normal Breath Sounds, No Accessory Muscle Use, No Respiratory Distress Cardiovascular: Regular Rate, Rhythm, No JVD, Normal Peripheral Pulses, Systolic Murmur, Gallop/S3 Gastrointestinal: Normal Bowel Sounds, No Organomegaly, No Pulsatile Mass, Non Tender, Soft Back: Normal Inspection, No CVA Tenderness, No Vertebral Tenderness Extremity: Normal Capillary Refill, Normal Inspection, Normal Range of Motion, Non Tender, No Calf Tenderness, Pedal Edema (Trace) Neurologic/Psychiatric: Alert, Normal Mood/Affect, Motor Weakness, Other ( Disoriented 3, generalized weakness slightly more prominent at the left leg) Skin: Normal Color, Warm/Dry Lymphatic: No Adenopathy A/P-Cardiology Admission Diagnosis Generalized weakness Change in mental status Coronary artery disease Atrial fibrillation Assessment/Plan Generalized weakness and confusion, progressing, probably advanced dementia, it was suspicious of intracranial bleed on CT scan, MRI was done showing no active bleeding, generalized atrophy was noted. Recommend starting physical therapy Change in mental status, had previous hospitalization and evaluation in the ER for change in mental status workup at that time was negative. Continue with physical therapy Sick sinus syndrome, history of episodes of bradycardia with complete heart block, frequent PVCs, ventricular bigeminy and ventricular couplets, short PAT' s. 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 Continue to monitor History of nonsustained ventricular tachycardia, noted on interrogation on July 02, 2016, has been maintained on amiodarone 200 mg daily. will evaluate CMP, TSH Paroxysmal atrial fibrillation, maintained on Eliquis. Continue to monitor [id number] score of 6, high risk, yearly risk of stroke without OAC is 9.8%. Maintained on Eliquis, continue to monitor Coronary artery disease, multiple interventions in the past, most recent cardiac catheterization done March 14, 2015 revealed extensive coronary artery disease, heavily calcified system, with 40 percent distal left main coronary artery stenosis. 3 stents in LAD proximally with 50-60 percent in-stent restenosis. Distal LAD had 95 percent stenosis followed by 80 percent stenosis long segment, very small artery not amendable to intervention. Total occlusion of the first obtuse marginal branch filled by collaterals. Patent stent in the proximal mid second OM branch with moderate disease in the distal proper circumflex artery. Patent stent in the RCA with 50 percent proximal right coronary artery stenosis and 50-60 distal right coronary artery stenosis. Asymptomatic, continue to monitor Stress test in July 2016 showed fixed defect involving the whole inferior wall and inferoapical segment with dilated left ventricle, inferior wall hypokinesia, Ejection fraction 54 percent. Echocardiogram showed ejection fraction 60 percent, dilated left atrium, mild to moderate mitral regurgitation and pulmonary artery pressure of 35 mmHg. continue to monitor Hypertension, restarted home medication, continue to monitor Hyperlipidemia, I will hold statin due to generalized weakness and monitor his response History of CVA in 2010, mild residual right sided weakness, episodes of confusion occurred over the last year where patient became confused and drove over once to [place] and once to [place]. It was felt that it was a global ischemic attack with confusion, workup at that time was negative. He was seen by Dr. Jiménez and started on Dilantin, the dose was increased by Dr. Damon, followed and managed by primary care physician Diabetes mellitus, followed and managed by primary care physician Carotid stenosis, Seen and followed by Dr Simmons, continue to monitor Ex-Tobaccoism, patient smokes pipe, he stopped smoking in October, encouraged to continue with smoking cessation Peripheral neuropathy, maintained on gabapentin. Continue on current medication , continue to monitor Sleep apnea, severe on sleep study in October 2015, does not use his machine. Clinical Quality Measures DVT/VTE Risk/Contraindication: Risk Factor Score Per Nursin RFS Level Per Nursing on Admit: 4+=Very High SEBASTIÁN VALLE MD Sep 06, 2018 17:29
[2018-09-06] MEDS ORDERED: NON-FORMULARY MEDICATION 1 EA EA (Esomeprazole Magnesium (Nexium) 40 MG) PO PRN (17:30)
[2018-09-06] MEDS ORDERED: PANTOPRAZOLE 40 MG (PROTONIX) TAB PO PRN (17:30)
[2018-09-06] MEDS ORDERED: TAMSULOSIN 0.4 MG (FLOMAX) CAP PO SCH (17:30)
[2018-09-06] MEDS ORDERED: SINEMET 25/100 (CARBIDOPA/LEVODOPA) TAB PO SCH (19:15)
--- NOTE | 2018-09-06 19:20 | History & Physicial ---
History of Present Illness History of Present Illness Reason for visit/HPI Patient brought to the office today by family. Patient having eyes closed. Patient not answering questions. Patient having acute mental status change. Patient unable to walk as he was able to do a week ago. Patient unable to communicate. Patient having generalized weakness. Patient has to be helped up to stand up and and held to walk. Patient has diabetes. Patient has dementia. Patient has coronary artery disease. Patient has hyperlipidemia. Patient has history of atrial fibrillation. Patient has generalized weakness. Date of Admission Sep 06, 2018 at 12:35 Time Seen by a Provider: 19:15 I consulted on this patient on 09/06/18 19:15 Attending Physician Mando Kent DO Admitting Physician Mando Kent DO Consult Allergies and Home Medications Allergies Coded Allergies: No Known Drug Allergies (Unverified , 09/06/18) Home Medications Amiodarone HCl 200 Mg Tablet, 200 MG PO DAILY, (Reported) Amlodipine Besylate 10 Mg Tablet, 10 MG PO DAILY, (Reported) Apixaban 5 Mg Tablet, 5 MG PO BID, (Reported) Atorvastatin Calcium 40 Mg Tablet, 40 MG PO HS, (Reported) Esomeprazole Magnesium 40 Mg Cap, 40 MG PO DAILY PRN for HEARTBURN, (Reported) Fish Oil/Dha/Epa 1 Each Capsule, 1,200 MG PO BID, (Reported) Gabapentin 300 Mg Capsule, 300 MG PO BID, (Reported) Glipizide 10 Mg Tablet, 5 MG PO DAILY, (Reported) TAKES 1/2 (10MG) TABLET Insulin Aspart 300 Units/3 Ml Solution, SQ AC, (Reported) Insulin Detemir 100 Unit/1 Ml Insuln.pen, 30 UNIT SQ BID, (Reported) Metoprolol Succinate 100 Mg Tab.er.24h, 100 MG PO HS, (Reported) Multivitamin 1 Each Tablet, 1 TAB PO DAILY, (Reported) Phenytoin Sodium Extended 100 Mg Capsule, 100 MG PO DAILY, (Reported) Phenytoin Sodium Extended 100 Mg Capsule, 200 MG PO HS, (Reported) TAKES 2 (100MG) CAPSULES Quinapril HCl 40 Mg Tablet, 40 MG PO DAILY, (Reported) Tamsulosin HCl 0.4 Mg Cap.er.24h, 0.4 MG PO 1730, (Reported) Patient Home Medication List Home Medication List Reviewed: Yes Past Wefrxun-Wvxzhr-Obdimm Hx Patient Social History Marrital Status: Employed/Student: retired Alcohol Use: Denies Use Recreational Drug Use: No Smoking Status: Never a Smoker Type Used: Pipe Physical Abuse Screen: No Sexual Abuse: No Recent Foreign Travel: No Contact w/other who traveled: No Recent Hopitalizations: No Recent Infectious Disease Expo: No Immunizations Up To Date Date of Pneumonia Vaccine: Jul 12, 2010 Seasonal Allergies Seasonal Allergies: No Surgeries Yes Respiratory No Cardiovascular Yes (X9 STENTS/PACEMAKER) Neurological Yes Dementia, Stroke Genitourinary Yes ([employer]) Benign Prostatic Hyperpl, Prostate Problems Gastrointestinal No Musculoskeletal No Endocrine History of Endocrine Disorders: Yes Endocrine Disorders: Diabetes, Insulin dep HEENT History of HEENT Disorders: No Cancer No Psychosocial History of Psychiatric Problem: No Integumentary History of Skin or Integumenta: No Blood Transfusions History of Blood Disorders: No Review of Systems Constitutional: malaise, weakness, other (Shuffling gait) EENTM: other (Face frozen) Cardiovascular: no symptoms reported Gastrointestinal: no symptoms reported Genitourinary: no symptoms reported Physical Exam Vital Signs Vital Signs - First Documented 09/06/18 13:04 Temp 98.9 Pulse 64 Resp 18 B/P (MAP) 169/73 (105) Pulse Ox 96 O2 Delivery Room Air Capillary Refill : Less Than 3 Seconds Height, Weight, BMI Height: 6'0.00" Weight: 191lbs. 0.0oz. 86.503572zh; 25.9 BMI Method:Stated General Appearance: No Apparent Distress, WD/WN Eyes: Bilateral Eye Normal Inspection HEENT: Normal ENT Inspection, Other (Frozen face) Neck: Normal Inspection, Non Tender Respiratory: Lungs Clear, No Accessory Muscle Use, No Respiratory Distress Cardiovascular: Regular Rate, Rhythm, No Murmur Gastrointestinal: Non Tender, Soft Assessment/Plan Assessment and Plan Generalized weakness. Acute mental status change. Parkinson disease. Dementia. Coronary artery disease. Diabetes. Atrial fibrillation history area Urinary incontinence. Admission Diagnosis Admission Status: Inpatient Order (span 2 midnights) Reason for Inpatient Admission: Neurologic weakness. Acute mental status change. Parkinson disease. Dementia. Coronary artery disease. Generalized weakness. Clinical Quality Measures DVT/VTE Risk/Contraindication: Risk Factor Score Per Nursin RFS Level Per Nursing on Admit: 4+=Very High MANDO KENT DO Sep 06, 2018 19:20
[2018-09-06 19:25] VITALS: BP 175/78
[2018-09-06] MEDS: GABAPENTIN 300 MG (NEURONTIN) CAP PO SCH (20:44)
[2018-09-06] MEDS: SINEMET 10/100 (CARBIDOPA/LEVADOPA) TAB PO SCH (20:44)
[2018-09-06] MEDS: APIXABAN 5 MG (ELIQUIS) TABLET PO SCH (20:45)
[2018-09-06] MEDS: OMEGA 3 (FISH OIL) 1000 MG CAP PO SCH (20:45)
[2018-09-06] MEDS ORDERED: PHENYTOIN SODIUM 200 MG PO SCH (21:00)
[2018-09-06] MEDS ORDERED: meTOprolol SUCCINATE 100 MG (TOPROL XL) TAB PO SCH (21:00)
[2018-09-06] MEDS ORDERED: PHENYTOIN 100 MG (DILANTIN) CAP PO SCH (21:00)
[2018-09-06 23:03] LABS: BILIRUBIN,URINE NEGATIVE (NEGATIVE); CLARITY,URINE CLEAR; COLOR,URINE YELLOW; GLUCOSE, URINE (UA) 4+ (NEGATIVE); KETONES,URINE NEGATIVE (NEGATIVE); LEUKOCYTE ESTERASE ,URINE NEGATIVE (NEGATIVE); NITRITE,URINE NEGATIVE (NEGATIVE); PH,URINE 6 (5-9); PROTEIN,URINE 3+ (NEGATIVE); UROBILINOGEN,URINE NORMAL (NORMAL)
[2018-09-06 23:13] LABS: SQUAMOUS EPITHELIAL CELL,UR RARE /HPF
[2018-09-06 23:56] VITALS: BP 126/60
[2018-09-07 03:51] VITALS: BP 114/57
[2018-09-07 04:59] LABS: BASOPHILS % (AUTO) 0 % (0-10); EOSINOPHILS # (AUTO) 0.2 10^3/uL (0.0-0.3); EOSINOPHILS % (AUTO) 2 % (0-10); HEMATOCRIT 34 % (40-54); HEMOGLOBIN 11.9 G/DL (13.3-17.7); LYMPHOCYTES % (AUTO) 28 % (12-44); MEAN CORPUSCULAR HEMOGLOBIN 33 PG (25-34); MEAN CORPUSCULAR HGB CONC 35 G/DL (32-36); MEAN CORPUSCULAR VOLUME 94 FL (80-99); MEAN PLATELET VOLUME 11.3 FL (7.4-10.4); MONOCYTES # (AUTO) 1.6 X 10^3 (0.0-1.0); MONOCYTES % (AUTO) 14 % (0-12); NEUTROPHILS # (AUTO) 6.1 X 10^3 (1.8-7.8); NEUTROPHILS % (AUTO) 56 % (42-75); PLATELET COUNT 200 10^3/uL (130-400); RED CELL DISTRIBUTION WIDTH 12.6 % (10.0-14.5); WHITE BLOOD COUNT 10.9 10^3/uL (4.3-11.0)
[2018-09-07 05:19] LABS: ALBUMIN 3.2 GM/DL (3.2-4.5); BILIRUBIN,TOTAL 0.6 MG/DL (0.1-1.0); CALCIUM 9.9 MG/DL (8.5-10.1); CREATININE SERUM 1.2 MG/DL (0.60-1.30); POTASSIUM 3.9 MMOL/L (3.6-5.0); TOTAL PROTEIN 6.5 GM/DL (6.4-8.2)
[2018-09-07] MEDS ORDERED: FLU QUADRIvalent (5+ YOA) 2018-2019 (AFLURIA) 0.5 ML IM ONE (05:41)
[2018-09-07] MEDS: inSUlin ASPART (NovoLOG) 1 UNIT/0.01 ML (CHARGE PER UNIT) SC SCH ×4 (05:54→20:26)
[2018-09-07] MEDS ORDERED: glipiZIDE 5 MG (GLUCOTROL) TAB PO SCH (06:30)
[2018-09-07] MEDS ORDERED: SINEMET 25/100 (CARBIDOPA/LEVODOPA) TAB PO SCH (07:00)
[2018-09-07] MEDS: MULTIVIT W/MINERALS TAB (THERAGRAN M) PO SCH (07:35)
[2018-09-07] MEDS: SINEMET 10/100 (CARBIDOPA/LEVADOPA) TAB PO SCH ×3 (07:35→16:09)
--- NOTE | 2018-09-07 07:38 | Progress Note (SOAP) ---
Subjective Time Seen by a Provider: 07:35 Subjective/Events-last exam Patient hypoglycemic this a.m. Patient knows who I am. Patient did not know where he sat. Patient had over 600 mL in his bladder last night. Patient did urinate and emptied out by self. Waiting for PSA results. Family did not want IV. Objective Exam Vital Signs Date Time Temp Pulse Resp B/P (MAP) Pulse Ox O2 Delivery O2 Flow Rate FiO2 09/07/18 03:51 98.4 58 16 114/57 (76) 95 Room Air 09/06/18 23:56 98.6 60 16 126/60 (82) 94 Room Air 09/06/18 20:00 93 Room Air 09/06/18 19:25 99.8 87 16 175/78 (110) 93 Room Air 09/06/18 16:45 96 Room Air 09/06/18 16:05 97.5 70 18 115/82 (93) 96 Room Air 09/06/18 13:04 98.9 64 18 169/73 (105) 96 Room Air I & O 09/07/18 07:00 Intake Total 580 ml Output Total 600 ml Balance -20 ml Capillary Refill : Less Than 3 Seconds General Appearance: No Apparent Distress, WD/WN HEENT: Normal ENT Inspection Neck: Normal Inspection, Non Tender Respiratory: Chest Non Tender, Lungs Clear, No Accessory Muscle Use, No Respiratory Distress Cardiovascular: Regular Rate, Rhythm, No Murmur Gastrointestinal: non tender, soft Results Lab Laboratory Tests 09/06/18 13:45 09/07/18 04:30 Laboratory Tests 09/06/18 13:45: White Blood Count 13.0H, Red Blood Count 4.34L, Hemoglobin 13.7, Hematocrit 41, Mean Corpuscular Volume 93, Mean Corpuscular Hemoglobin 32, Mean Corpuscular Hemoglobin Concent 34, Red Cell Distribution Width 12.8, Platelet Count 201, Mean Platelet Volume 10.7H, Neutrophils (%) (Auto) 71, Lymphocytes (%) (Auto) 16 , Monocytes (%) (Auto) 13H, Eosinophils (%) (Auto) 0, Basophils (%) (Auto) 0, Neutrophils # (Auto) 9.2H, Lymphocytes # (Auto) 2.1, Monocytes # (Auto) 1.6H, Eosinophils # (Auto) 0.1, Basophils # (Auto) 0.0, Troponin I < 0.30 09/06/18 16:11: Glucometer 165H 09/06/18 20:19: Glucometer 229H 09/06/18 22:55: Urine Color YELLOW, Urine Clarity CLEAR, Urine pH 6, Urine Specific [place] 1.020, Urine Protein 3+H, Urine Glucose (UA) 4+H, Urine Ketones NEGATIVE, Urine Nitrite NEGATIVE, Urine Bilirubin NEGATIVE, Urine Urobilinogen NORMAL, Urine Leukocyte Esterase NEGATIVE, Urine RBC (Auto) NEGATIVE, Urine RBC NONE, Urine WBC NONE, Urine Squamous Epithelial Cells RARE, Urine Crystals NONE, Urine Bacteria NONE, Urine Casts NONE, Urine Mucus NEGATIVE, Urine Culture Indicated NO 09/07/18 04:30: White Blood Count 10.9, Red Blood Count 3.60L, Hemoglobin 11.9L, Hematocrit 34L , Mean Corpuscular Volume 94, Mean Corpuscular Hemoglobin 33, Mean Corpuscular Hemoglobin Concent 35, Red Cell Distribution Width 12.6, Platelet Count 200, Mean Platelet Volume 11.3H, Neutrophils (%) (Auto) 56, Lymphocytes (%) (Auto) 28 , Monocytes (%) (Auto) 14H, Eosinophils (%) (Auto) 2, Basophils (%) (Auto) 0, Neutrophils # (Auto) 6.1, Lymphocytes # (Auto) 3.0, Monocytes # (Auto) 1.6H, Eosinophils # (Auto) 0.2, Basophils # (Auto) 0.0, Sodium Level 141, Potassium Level 3.9, Chloride Level 107, Carbon Dioxide Level 23, Anion Gap 11, Blood Urea Nitrogen 27H, Creatinine 1.20, Estimat Glomerular Filtration Rate 59, BUN/ Creatinine Ratio 23, Glucose Level 57*L, Calcium Level 9.9, Corrected Calcium 10.5H, Total Bilirubin 0.6, Aspartate Amino Transf (AST/SGOT) 19, Alanine Aminotransferase (ALT/SGPT) 9, Alkaline Phosphatase 107, Total Protein 6.5, Albumin 3.2, Triglycerides Level 67, Cholesterol Level 138, LDL Cholesterol Direct 73, VLDL Cholesterol 13, HDL Cholesterol 45, Thyroid Stimulating Hormone (TSH) 0.36 09/07/18 05:51: Glucometer 100 09/07/18 06:35: Assessment/Plan Assessment/Plan Assess & Plan/Chief Complaint Generalized weakness. Acute mental status change resolving area Parkinson being put on Sinemet. Dementia. Coronary artery disease. Urinary incontinence. Atrial fibrillation m. Diabetes. Unsteady gait Clinical Quality Measures Admission Status Admission Dx Generalized weakness. Acute mental status change. Parkinson disease. Dementia. Coronary artery disease. Diabetes. Atrial fibrillation history area Urinary incontinence. DVT/VTE Risk/Contraindication: Risk Factor Score Per Nursin RFS Level Per Nursing on Admit: 4+=Very High DENIZ KENT DO Sep 07, 2018 07:38
[2018-09-07 08:00] VITALS: BP 160/70
--- NOTE | 2018-09-07 08:39 | Cardiology Progress Note ---
Subjective Date Seen by Provider: Sep 07, 2018 Time Seen by Provider: 08:35 Subjective/Events-last exam Patient is sitting up at side of bed, receiving PT. Denies any CP. Review of Systems General: No Night Sweats, No Fatigue, No Malaise HEENT: No Visual Changes, No Dysphasia, No Sore Throat Pulmonary: No Dyspnea, No Cough Cardiovascular: No: Chest Pain, Palpitations Gastrointestinal: No: Nausea, Vomiting, Abdominal Pain Genitourinary: No Dysuria Musculoskeletal: No: neck pain, back pain Neurological: Weakness, Confusion; No: Numbness, Change in speech Objective-Cardiology Exam Last Set of Vital Signs Vital Signs 09/07/18 03:51 Temp 98.4 Pulse 58 Resp 16 B/P (MAP) 114/57 (76) Pulse Ox 95 O2 Delivery Room Air Capillary Refill : Less Than 3 Seconds I&O Intake and Output 09/07/18 00:00 Intake Total 460 ml Output Total 600 ml Balance -140 ml Intake Oral 460 ml Output Urine Total 600 ml Bladder Scan Volume Amount 638 ml Daily Weight Change No General: Alert, Cooperative, No Acute Distress HEENT: Atraumatic, PERRLA Neck: Supple Lungs: Clear to Auscultation, Normal Air Movement Heart: Regular Rate, Normal S1, Normal S2 Abdomen: Normal Bowel Sounds Extremities: No Clubbing, No Cyanosis Skin: No Rashes, No Significant Lesion Neuro: Normal Speech, Cranial Nerves 3-12 NL Psych/Mental Status: Other (pleasantly confused) Results Lab Laboratory Tests 09/06/18 13:45 09/07/18 04:30 A/P-Cardiology Admission Diagnosis Generalized weakness Change in mental status Coronary artery disease Atrial fibrillation Assessment/Plan Generalized weakness and confusion, progressing, probably advanced dementia, it was suspicious of intracranial bleed on CT scan, MRI was done showing no active bleeding, generalized atrophy was noted. Recommend continuing with physical therapy Change in mental status, had previous hospitalization and evaluation in the ER for change in mental status workup at that time was negative. Continue with physical therapy Sick sinus syndrome, history of episodes of bradycardia with complete heart block, frequent PVCs, ventricular bigeminy and ventricular couplets, short PAT' s. Status post permanent pacemaker implantation April 2015, using a [employer] device Lenin GONZALEZ, good sensing and capture. Continue to monitor History of nonsustained ventricular tachycardia, noted on interrogation on July 02, 2016, has been maintained on amiodarone 200 mg daily. CMP and TSH WNL Paroxysmal atrial fibrillation, maintained on Eliquis. Continue to monitor [id number] score of 6, high risk, yearly risk of stroke without OAC is 9.8%. Maintained on Eliquis, continue to monitor Coronary artery disease, multiple interventions in the past, most recent cardiac catheterization done March 14, 2015 revealed extensive coronary artery disease, heavily calcified system, with 40 percent distal left main coronary artery stenosis. 3 stents in LAD proximally with 50-60 percent in-stent restenosis. Distal LAD had 95 percent stenosis followed by 80 percent stenosis long segment, very small artery not amendable to intervention. Total occlusion of the first obtuse marginal branch filled by collaterals. Patent stent in the proximal mid second OM branch with moderate disease in the distal proper circumflex artery. Patent stent in the RCA with 50 percent proximal right coronary artery stenosis and 50-60 distal right coronary artery stenosis. Asymptomatic, continue to monitor Stress test in July 2016 showed fixed defect involving the whole inferior wall and inferoapical segment with dilated left ventricle, inferior wall hypokinesia, Ejection fraction 54 percent. Echocardiogram showed ejection fraction 60 percent, dilated left atrium, mild to moderate mitral regurgitation and pulmonary artery pressure of 35 mmHg. continue to monitor Hypertension, controlled, continue to monitor Hyperlipidemia, I will hold statin due to generalized weakness and monitor his response History of CVA in 2010, mild residual right sided weakness, episodes of confusion occurred over the last year where patient became confused and drove over once to [place] and once to [place]. It was felt that it was a global ischemic attack with confusion, workup at that time was negative. He was seen by Dr. Jiménez and started on Dilantin, the dose was increased by Dr. aDmon, followed and managed by primary care physician Diabetes mellitus, followed and managed by primary care physician Carotid stenosis, Seen and followed by Dr Simmons, continue to monitor Ex-Tobaccoism, patient smokes pipe, he stopped smoking in October, encouraged to continue with smoking cessation Peripheral neuropathy, maintained on gabapentin. Continue on current medication , continue to monitor Sleep apnea, severe on sleep study in October 2015, does not use his machine. Clinical Quality Measures DVT/VTE Risk/Contraindication: Risk Factor Score Per Nursin RFS Level Per Nursing on Admit: 4+=Very High JOSELUIS CLINTON Sep 07, 2018 08:39
[2018-09-07] MEDS ORDERED: NON-FORMULARY MEDICATION 1 EA EA (Amlodipine Besylate 10 MG) PO SCH (09:00)
[2018-09-07] MEDS ORDERED: AMIODARONE 200 MG (CORDARONE) TAB PO SCH (09:00)
[2018-09-07] MEDS ORDERED: NON-FORMULARY MEDICATION 1 EA EA (Phenytoin Sodium Extended 100 MG) PO SCH (09:00)
[2018-09-07] MEDS ORDERED: amLODIPine 10 MG (NORVASC) TAB PO SCH (09:00)
[2018-09-07] MEDS ORDERED: lisINopril 40 MG (PRINIVIL) TABLET PO SCH (09:00)
[2018-09-07] MEDS ORDERED: NON-FORMULARY MEDICATION 1 EA EA (Quinapril HCl 40 MG) PO SCH (09:00)
[2018-09-07] MEDS ORDERED: NON-FORMULARY MEDICATION 1 EA EA (Glipizide 5 MG) PO SCH (09:00)
[2018-09-07] MEDS ORDERED: PHENYTOIN 100 MG (DILANTIN) CAP PO SCH ×2 (09:00→21:00)
[2018-09-07] MEDS ORDERED: NON-FORMULARY MEDICATION 1 EA EA (Multivitamin (Daily Multiple Vitamin) 1 TAB) PO SCH (09:00)
--- NOTE | 2018-09-07 09:48 | Physical Therapy Evaluation ---
PT Evaluation-General Medical Diagnosis Admission Date Sep 06, 2018 at 12:35 Medical Diagnosis: Altered Mental Status, Brain Bleed Onset Date: Sep 06, 2018 Therapy Diagnosis Therapy Diagnosis: General Weakness Height/Weight Height (Feet): 6 Height (Inches): 0.00 Weight (Pounds): 191 Weight (Ounces): 0.0 Precautions Precautions/Isolations: Fall Prevention, Standard Precautions Weight Bear Status Right Lower Extremity: Right Full Weight Bearing Left Lower Extremity: Left Full Weight Bearing Referral Physician: Nelson Reason for Referral: Evaluation/Treatment Medical History Pertinent Medical History: Atrial Fib, CAD, DM, Dementia, Parkinson's Current History Family brought patient in as direct admit. Reviewed History: Yes Social History Home: Single Level Current Living Status: Spouse Entry Into Home: Level Entry PT Steps Into Home: 0 PT Steps Inside Home: 0 Prior/Core FIM Prior Level of Function Functional [place] Measure 0=Not Assessed/NA 4=Minimal Assistance 1=Total Assistance 5=Supervision or Setup 2=Maximal Assistance 6=Modified [place] 3=Moderate Assistance 7=Complete IndependenceIRFPAI Quality Coding Scale 6 Independent with activity with or without an assistive device 5 Patient requires set up or clean up by helper. Patient completes activity by themselves 4 Supervision or touching assist (CGA). [place] provide cues , steadying assist 3 The helper provides less than half the effort to complete the activity 2 The helper provides more than half the effort to complete the activity 1 Dependent. The helper does all the effort to complete an activity 7 Patient refused to complete or attempt activity 9 The patient did not perform the activity before the current illness or injury 88 Not attempted due to Medical conditions or safety concerns Bed Mobility: 4 Transfers (B,C,W/C) (FIM): 4 Gait: 4 PT Evaluation-Current Subjective Pt asleep in bed when PT arrived. Pt agreed to evaluation by PT. Pain Numeric Pain Scale: 0-No Pain Location: No Pain Reported Objective Patient Orientation: Person, Confused, Mumbles Problem Solving: Poor ROM/Strength ROM Upper Extremities WNL ROM Lower Extremities WNL Strength Upper Extremities Unable to follow gross motor assessment. Strength Lower Extremities Patient is 4/5 strength for R LE Patient unable to follow gross motor assessment direction. Integumentary/Posture Bowel Incontinence: No Bladder Incontinence: No Neuromuscular (Tone, Coordination, Reflexes) Patient has a shuffled gait pattern. Sensory Vision: Functional Hearing: Functional Sensation Right Upper Extremit: Intact Sensation Left Upper Extremity: Intact Sensation Right Lower Extremit: Intact Sensation Left Lower Extremity: Impaired Sensation Lower Extremities Patient unable to correctly identify dermatome during assessment from thigh down. Transfers Functional [place] Measure 0=Not Assessed/NA 4=Minimal Assistance 1=Total Assistance 5=Supervision or Setup 2=Maximal Assistance 6=Modified [place] 3=Moderate Assistance 7=Complete [place] Transfers (B, C, W/C) (FIM): 3 Scootin Rollin Supine to/from Sit: 3 Sit to/from Stand: 4 Gait Mode of Locomotion: Walk Anticipated Mode of Locomotion: Walk Gait (FIM): 1 Distance (FIM): 1=up to 49 ft Distance: 3' Gait Level of Assist: 4 Gait Persons Needed: 1 Gait Assistive Device: FWW Comments/Gait Description Patient utilizes a shuffled gait pattern and does not completely shift weight over to L LE. Balance Sitting Static: Fair Sitting Dynamic: Fair Standing Static: Poor Standing Dynamic: Poor Assessment/Needs Patient mental status was difficult to asses throughout treatment. Patient unable to correctly identify day of the week and what the current year is. Patient needs Mod A with bed mobility and with a transfer to bedside. Patient required cueing and bed positioning at edge of bed to transfer from sitting to standing. Patient was able to ambulate 3' with a FWW requiring minimal assist for safety. He will continue with therapy to maintain current level of function. Rehab Potential: Guarded PT Ch[facility] Goals Ch[facility] Goals PT [facility] Coordinator Goals Time Frame: Sep 14, 2018 Transfers (B,C,W/C) (FIM): 5 Gait (FIM): 4 Gait distance (FIM): 7=427-69 ft Distance: 50' Gait Level of Assist: 4 Gait Assistive Device: FWW PT Plan Problem List Problem List: Activity Tolerance, Functional Strength, Safety, Balance, Gait, Transfer, Bed Mobility, ROM Treatment/Plan Treatment Plan: Continue Plan of Care Treatment Plan: Bed Mobility, Education, Functional Activity Navya, Functional Strength, Gait, Safety, Therapeutic Exercise, Transfers Treatment Duration: Sep 14, 2018 Frequency: 6 times per week Estimated Hrs Per Day: .25 hour per day Patient and/or Family Agrees t: Yes Discharge Recommendations Therapy D/C Recommendations: Home w/ Family Support, [facility] Placement Time/GCodes Time In: 827 Time Out: 841 Total Billed Treatment Time: 14 Total Billed Treatment 1 Visit EVModC - 14' G Codes Necessary: YAA Murdock PT Sep 07, 2018 09:48
--- NOTE | 2018-09-07 10:08 | Cardiology Progress Note ---
Subjective Date Seen by Provider: Sep 07, 2018 Time Seen by Provider: 10:07 Subjective/Events-last exam Patient is laying down in bed. Denied any chest pain, still confused Review of Systems General: No Chills, No Night Sweats, No Fatigue, No Malaise, No Appetite, No Other HEENT: No Head Aches, No Visual Changes, No Eye Pain, No Ear Pain, No Dysphasia , No Sinus Congestion, No Post Nasal Drip, No Sore Throat, No Other Pulmonary: No Dyspnea, No Cough, No Pleuritic Chest Pain, No Other Cardiovascular: No: Chest Pain, Palpitations, Orthopnea, Paroxysmal Noc. Dyspnea, Edema, Lt Headedness, Other Objective-Cardiology Exam Last Set of Vital Signs Vital Signs 09/07/18 09/07/18 03:51 08:00 Temp 98.4 Pulse 58 Resp 16 B/P (MAP) 114/57 (76) Pulse Ox 95 O2 Delivery Room Air Capillary Refill : Less Than 3 Seconds I&O Intake and Output 09/07/18 00:00 Intake Total 460 ml Output Total 600 ml Balance -140 ml Intake Oral 460 ml Output Urine Total 600 ml Bladder Scan Volume Amount 638 ml Daily Weight Change No General: Alert, Cooperative, No Acute Distress HEENT: Atraumatic, PERRLA Neck: Supple Lungs: Clear to Auscultation, Normal Air Movement Heart: Regular Rate, Normal S1, Normal S2 Abdomen: Normal Bowel Sounds Extremities: No Clubbing, No Cyanosis Skin: No Rashes, No Significant Lesion Neuro: Normal Speech, Cranial Nerves 3-12 NL Psych/Mental Status: Other (pleasantly confused) Results Lab Laboratory Tests 09/06/18 13:45 09/07/18 04:30 A/P-Cardiology Admission Diagnosis Generalized weakness Change in mental status Coronary artery disease Atrial fibrillation Assessment/Plan Generalized weakness and confusion, progressing, probably advanced dementia, it was suspicious of intracranial bleed on CT scan, MRI was done showing no active bleeding, generalized atrophy was noted. Recommend continuing with physical therapy Change in mental status, had previous hospitalization and evaluation in the ER for change in mental status workup at that time was negative. Continue with physical therapy Sick sinus syndrome, history of episodes of bradycardia with complete heart block, frequent PVCs, ventricular bigeminy and ventricular couplets, short PAT' s. Status post permanent pacemaker implantation April 2015, using a Casmul device Advisa DR MRI, good sensing and capture. Continue to monitor History of nonsustained ventricular tachycardia, noted on interrogation on July 02, 2016, has been maintained on amiodarone 200 mg daily. CMP and TSH WNL Paroxysmal atrial fibrillation, maintained on Eliquis. Continue to monitor [id number] score of 6, high risk, yearly risk of stroke without OAC is 9.8%. Maintained on Eliquis, continue to monitor Coronary artery disease, multiple interventions in the past, most recent cardiac catheterization done March 14, 2015 revealed extensive coronary artery disease, heavily calcified system, with 40 percent distal left main coronary artery stenosis. 3 stents in LAD proximally with 50-60 percent in-stent restenosis. Distal LAD had 95 percent stenosis followed by 80 percent stenosis long segment, very small artery not amendable to intervention. Total occlusion of the first obtuse marginal branch filled by collaterals. Patent stent in the proximal mid second OM branch with moderate disease in the distal proper circumflex artery. Patent stent in the RCA with 50 percent proximal right coronary artery stenosis and 50-60 distal right coronary artery stenosis. Asymptomatic, continue to monitor Stress test in July 2016 showed fixed defect involving the whole inferior wall and inferoapical segment with dilated left ventricle, inferior wall hypokinesia, Ejection fraction 54 percent. Echocardiogram showed ejection fraction 60 percent, dilated left atrium, mild to moderate mitral regurgitation and pulmonary artery pressure of 35 mmHg. continue to monitor Hypertension, controlled, continue to monitor Hyperlipidemia, I will hold statin due to generalized weakness and monitor his response History of CVA in 2010, mild residual right sided weakness, episodes of confusion occurred over the last year where patient became confused and drove over once to [place] and once to [place]. It was felt that it was a global ischemic attack with confusion, workup at that time was negative. He was seen by Dr. Jiménez and started on Dilantin, the dose was increased by Dr. Damon, followed and managed by primary care physician Diabetes mellitus, followed and managed by primary care physician Carotid stenosis, Seen and followed by Dr Simmons, continue to monitor Ex-Tobaccoism, patient smokes pipe, he stopped smoking in October, encouraged to continue with smoking cessation Peripheral neuropathy, maintained on gabapentin. Continue on current medication , continue to monitor Sleep apnea, severe on sleep study in October 2015, does not use his machine. Clinical Quality Measures DVT/VTE Risk/Contraindication: Risk Factor Score Per Nursin RFS Level Per Nursing on Admit: 4+=Very High SEBASTIÁN VALLE MD Sep 07, 2018 10:08 am
[2018-09-07] MEDS: OMEGA 3 (FISH OIL) 1000 MG CAP PO SCH (10:16)
[2018-09-07] MEDS: GABAPENTIN 300 MG (NEURONTIN) CAP PO SCH ×2 (10:16→20:18)
[2018-09-07] MEDS: APIXABAN 5 MG (ELIQUIS) TABLET PO SCH ×2 (10:16→20:20)
[2018-09-07 12:00] VITALS: BP 133/62
--- NOTE | 2018-09-07 13:46 | Diagnostic Imaging Report ---
INDICATION: Neck pain. TECHNIQUE: AP, lateral and odontoid views cervical spine.. CORRELATION STUDY: None. FINDINGS: Examination compromised and limited. Patient reportedly had a hard time following directions. Trace anterolisthesis C3 on C4, C4 on C5 and C6 on C7. Vertebral body heights overall appear fairly well-maintained. No definitive evidence for acute bony abnormality. Mild multilevel disc space narrowing is present. Odontoid not well-defined, generally unremarkable. Lateral mass of C1 and C2 aligned. Scattered areas of asymmetric hypertrophic facet arthropathy. Calcifications of soft tissues of the neck greatest on the left suspect for potential carotid artery calcification. IMPRESSION: 1. Compromised and limited imaging of the cervical spine demonstrates no definitive evidence of acute fracture. Multilevel cervical spondylosis is suggested. 2. Prominent calcifications soft tissues neck could be reflective of carotid artery calcification, right less severe than left. Consideration might be given to carotid Doppler ultrasound evaluation. Dictated by: Dictated on workstation # [id number]
[2018-09-07] MEDS ORDERED: PATIENT MAY USE OWN MEDS, ALL MC SCH (14:00)
--- NOTE | 2018-09-07 14:22 | Occupational Therapy Eval ---
OT Evaluation-General/PLF Medical Diagnosis Admission Date Sep 06, 2018 at 12:35 Medical Diagnosis: Altered Mental Status, Brain Bleed Onset Date: Sep 06, 2018 Therapy Diagnosis Therapy Diagnosis: decreased self care skills Height/Weight Height (Feet): 6 Height (Inches): 0.00 Weight (Pounds): 191 Weight (Ounces): 0.0 Precautions Precautions/Isolations: Fall Prevention, Standard Precautions Referral Physician: Nelson Medical History Pertinent Medical History: Atrial Fib, CAD, DM, Dementia, Parkinson's Additional Medical History stents, pacemaker Reviewed History: Yes Social History Home: Single Level Current Living Status: Spouse Entry Into Home: Level Entry Steps Into Home: 0 Steps Inside Home: 0 ADL-Prior Level of Function Functional [place] Measure 0=Not Assessed/NA 4=Minimal Assistance 1=Total Assistance 5=Supervision or Setup 2=Maximal Assistance 6=Modified [place] 3=Moderate Assistance 7=Complete [place] IRFPAI Quality Coding Scale 6 Independent with activity with or without an assistive device 5 Patient requires set up or clean up by helper. Patient completes activity by themselves 4 Supervision or touching assist (CGA). [place] provide cues , steadying assist 3 The helper provides less than half the effort to complete the activity 2 The helper provides more than half the effort to complete the activity 1 Dependent. The helper does all the effort to complete an activity 7 Patient refused to complete or attempt activity 9 The patient did not perform the activity before the current illness or injury 88 Not attempted due to Medical conditions or safety concerns Functional Abilities and Goals 3. Independent: Patient completed the activities by him/herself, with or without an assistive device, with no assistance from a helper. 2. Needed Some Help: Patient needed partial assistance from another person to complete activities. 1. Dependent: A helper completed the activities for the patient. 8. Unknown: 9. Not Applicable: ADL PLOF Comments Pt unable to provide PLOF. No family available Self Care: Unknown Functional Cognition: Unknown OT Current Status Subjective Pt in bed, agrees to therapy. Pt has no c/o pain. Mental Status/Objective Patient Orientation: Person, Confused ADL-Treatment ADL-Current Pt supine to sit with moderate assistance. Pt sat EOB with fair balance during ADL tasks. Pt combed hair and washed face with SBA. Verbal cues for sequencing and task completion. Pt performed sit to stand with minimal assistance. Pt took sidesteps to HOB with FWW. Pt has difficulty shifting weight to left in order to sidestep to right. Sit to supine with assist for bilateral LE. Pt able to position self in bed. Pt resting in bed with needs met and bed alarm on after session. Functional [place] Measure 0=Not Assessed/NA 4=Minimal Assistance 1=Total Assistance 5=Supervision or Setup 2=Maximal Assistance 6=Modified [place] 3=Moderate Assistance 7=Complete [place] IRFPAI Quality Coding Scale 6 Independent with activity with or without an assistive device 5 Patient requires set up or clean up by helper. Patient completes activity by themselves 4 Supervision or touching assist (CGA). [place] provide cues , steadying assist 3 The helper provides less than half the effort to complete the activity 2 The helper provides more than half the effort to complete the activity 1 Dependent. The helper does all the effort to complete an activity 7 Patient refused to complete or attempt activity 9 The patient did not perform the activity before the current illness or injury 88 Not attempted due to Medical conditions or safety concerns Grooming (FIM): 5 Education OT Patient Education: Rehab process Teaching Recipient: Patient Teaching Methods: Discussion Response to Teaching: Reinforcement Needed OT Short Term Goals Short Term Goals 1=Demonstrate adherence to instructed precautions during ADL tasks. 2=Patient will verbalize/demonstrate understanding of assistive devices/ modifications for ADL. 3=Patient will improve strength/tolerance for activity to enable patient to perform ADL's. OT Air Box Tester Goals Air Box Tester Goals Time Frame: Sep 14, 2018 Eating (FIM): 5 Upper Body Dressing(FIM): 5 Toileting(FIM): 4 Toilet/Commode Transfer(FIM): 4 Additional Goals: 1-Demonstrate ADL Tasks, 2-Verbalize Understanding, 3- ImproveStrength/Navya 1=Demonstrate adherence to instructed precautions during ADL tasks. 2=Patient will verbalize/demonstrate understanding of assistive devices/ modifications for ADL. 3=Patient will improve strength/tolerance for activity to enable patient to perform ADL's. OT Education/Plan Problem List/Assessment Assessment: Decreased Activ Tolerance, Decreased Safety Aware, Decreased UE Strength, Dependent Transfers, Impaired Self-Care Skills Pt to benefit from skilled OT intervention for ADL training, transfers, strengthening, and safety education to increase level of independence and allow safe discharge plan. Discharge Recommendations Plan/Recommendations: Continue POC Treatment Plan/Plan of Care Treatment,Training & Education: Yes Patient would benefit from OT for education, treatment and training to promote independence in ADL's, mobility, safety and/or upper extremity function for ADL' s. Plan of Care: ADL Retraining, Functional Mobility, UE Funct Exercise/Act Treatment Duration: Sep 14, 2018 Frequency: 5 times per week Estimated Hrs Per Day: .25 hour per day Rehab Potential: Guarded Time/GCodes Start Time: 13:58 Stop Time: 14:11 Total Time Billed (hr/min): 13 Billed Treatment Time 1 visit, JOSÉ(13minutes) PARIS JAMIL OT Sep 07, 2018 14:22
[2018-09-07 16:00] VITALS: BP 174/72
[2018-09-07] MEDS ORDERED: TAMSULOSIN 0.4 MG (FLOMAX) CAP PO SCH ×2 (17:30)
[2018-09-07 19:30] VITALS: BP 121/68
[2018-09-07] MEDS: FISH OIL PO SCH (20:20)
[2018-09-07] MEDS: EPA PO SCH (20:20)
[2018-09-07] MEDS: DHA PO SCH (20:20)
[2018-09-07] MEDS ORDERED: meTOprolol SUCCINATE 100 MG (TOPROL XL) TAB PO SCH (21:00)
[2018-09-08 00:02] VITALS: BP 155/67
[2018-09-08 04:00] VITALS: BP 143/68
[2018-09-08 05:07] LABS: HEMOGLOBIN 11.7 G/DL (13.3-17.7); MEAN PLATELET VOLUME 10.8 FL (7.4-10.4); RED BLOOD COUNT 3.68 10^6/uL (4.35-5.85); RED CELL DISTRIBUTION WIDTH 12.3 % (10.0-14.5); WHITE BLOOD COUNT 8.7 10^3/uL (4.3-11.0)
[2018-09-08 05:37] LABS: BUN/CREATININE RATIO 22; CALCIUM 9.8 MG/DL (8.5-10.1); CARBON DIOXIDE 23 MMOL/L (21-32); CHLORIDE 104 MMOL/L (98-107); CREATININE SERUM 1.09 MG/DL (0.60-1.30); GFR ESTIMATED > 60; GLUCOSE 96 MG/DL (70-105); POTASSIUM 4.1 MMOL/L (3.6-5.0); SODIUM 138 MMOL/L (135-145)
[2018-09-08] MEDS: MULTIVIT W/MINERALS TAB (THERAGRAN M) PO SCH (06:29)
[2018-09-08] MEDS: SINEMET 10/100 (CARBIDOPA/LEVADOPA) TAB PO SCH (06:29)
[2018-09-08] MEDS: inSUlin ASPART (NovoLOG) 1 UNIT/0.01 ML (CHARGE PER UNIT) SC SCH (06:30)
[2018-09-08] MEDS ORDERED: GLIPIZIDE 10 MG PO SCH (06:30)
--- NOTE | 2018-09-08 07:51 | Progress Note (SOAP) ---
Subjective Time Seen by a Provider: 07:49 Subjective/Events-last exam Patient eating good this morning. Patient had to be straight catheter 2.. Consult urology. Waiting for rehabilitation Objective Exam Vital Signs Date Time Temp Pulse Resp B/P (MAP) Pulse Ox O2 Delivery O2 Flow Rate FiO2 09/08/18 04:00 98.4 90 20 143/68 (93) 95 Room Air 09/08/18 00:02 98.6 60 18 155/67 (96) 93 Room Air 09/07/18 20:20 93 Room Air 09/07/18 19:30 98.6 62 16 121/68 (85) 95 Room Air 09/07/18 16:00 98.8 60 16 174/72 (106) 94 09/07/18 12:00 98.7 82 16 133/62 (85) 95 Room Air 09/07/18 08:00 99.1 60 16 160/70 (100) 95 Room Air 09/07/18 08:00 95 Room Air I & O 09/08/18 07:00 Intake Total 2510 ml Output Total 425 ml Balance 2085 ml Capillary Refill : Less Than 3 Seconds General Appearance: No Apparent Distress, WD/WN HEENT: Normal ENT Inspection Respiratory: Lungs Clear, No Accessory Muscle Use, No Respiratory Distress Cardiovascular: Regular Rate, Rhythm Gastrointestinal: non tender, soft Results Lab Laboratory Tests 09/07/18 11:30: Glucometer 306H 09/07/18 15:43: Glucometer 345H 09/07/18 20:24: Glucometer 328H 09/08/18 04:40: White Blood Count 8.7, Red Blood Count 3.68L, Hemoglobin 11.7L, Hematocrit 34L, Mean Corpuscular Volume 93, Mean Corpuscular Hemoglobin 32, Mean Corpuscular Hemoglobin Concent 34, Red Cell Distribution Width 12.3, Platelet Count 222, Mean Platelet Volume 10.8H, Sodium Level 138, Potassium Level 4.1, Chloride Level 104, Carbon Dioxide Level 23, Anion Gap 11, Blood Urea Nitrogen 24H, Creatinine 1.09, Estimat Glomerular Filtration Rate > 60, BUN/Creatinine Ratio 22, Glucose Level 96, Calcium Level 9.8 09/08/18 06:01: Glucometer 113H Assessment/Plan Assessment/Plan Assess & Plan/Chief Complaint Generalized weakness. Acute mental status change resolving area Parkinson being put on Sinemet. Dementia. Coronary artery disease. Urinary incontinence. Atrial fibrillation m. Diabetes. Unsteady gait. . 09/08/18. Generalized weakness. Acute mental status change. Parkinson disease. Dementia. Coronary artery disease. Urinary obstruction. Diabetes. Unsteady gait Clinical Quality Measures Admission Status Admission Dx Generalized weakness. Acute mental status change. Parkinson disease. Dementia. Coronary artery disease. Diabetes. Atrial fibrillation history area Urinary incontinence. DVT/VTE Risk/Contraindication: Risk Factor Score Per Nursin RFS Level Per Nursing on Admit: 4+=Very High DENIZ KENT DO Sep 08, 2018 07:51
[2018-09-08 08:00] VITALS: BP 143/66
--- NOTE | 2018-09-08 08:16 | Cardiology Progress Note ---
Subjective Date Seen by Provider: Sep 08, 2018 Time Seen by Provider: 08:14 Subjective/Events-last exam Patient is laying down in bed, denied any chest pain, less confused today. Review of Systems General: No Chills, No Night Sweats, No Fatigue, No Malaise, No Appetite, No Other HEENT: No Head Aches, No Visual Changes, No Eye Pain, No Ear Pain, No Dysphasia , No Sinus Congestion, No Post Nasal Drip, No Sore Throat, No Other Pulmonary: No Dyspnea, No Cough, No Pleuritic Chest Pain, No Other Cardiovascular: No: Chest Pain, Palpitations, Orthopnea, Paroxysmal Noc. Dyspnea, Edema, Lt Headedness, Other Objective-Cardiology Exam Last Set of Vital Signs Vital Signs 09/08/18 04:00 Temp 98.4 Pulse 90 Resp 20 B/P (MAP) 143/68 (93) Pulse Ox 95 O2 Delivery Room Air Capillary Refill : Less Than 3 Seconds I&O Intake and Output 09/08/18 00:00 Intake Total 2530 ml Output Total 425 ml Balance 2105 ml Intake Oral 2530 ml Output Urine Total 425 ml Bladder Scan Volume Amount 238 ml 738 ml General: Alert, Cooperative, No Acute Distress HEENT: Atraumatic, PERRLA Neck: Supple Lungs: Clear to Auscultation, Normal Air Movement Heart: Regular Rate, Normal S1, Normal S2 Abdomen: Normal Bowel Sounds Extremities: No Clubbing, No Cyanosis Skin: No Rashes, No Significant Lesion Neuro: Normal Speech, Cranial Nerves 3-12 NL Psych/Mental Status: Other (pleasantly confused) Results Lab Laboratory Tests 09/08/18 04:40 A/P-Cardiology Admission Diagnosis Generalized weakness Change in mental status Coronary artery disease Atrial fibrillation Assessment/Plan Generalized weakness and confusion, progressing, probably advanced dementia, it was suspicious of intracranial bleed on CT scan, MRI was done showing no active bleeding, generalized atrophy was noted. Recommend continuing with physical therapy Change in mental status, had previous hospitalization and evaluation in the ER for change in mental status in the past, workup at that time was negative. Continue with physical therapy Sick sinus syndrome, history of episodes of bradycardia with complete heart block, frequent PVCs, ventricular bigeminy and ventricular couplets, short PAT' s. Status post permanent pacemaker implantation April 2015, using a [employer] device Lenin GONZALEZ, good sensing and capture. Continue to monitor History of nonsustained ventricular tachycardia, noted on interrogation on July 02, 2016, has been maintained on amiodarone 200 mg daily. Continue to monitor Paroxysmal atrial fibrillation, maintained on Eliquis. Continue to monitor [id number] score of 6, high risk, yearly risk of stroke without OAC is 9.8%. Maintained on Eliquis, continue to monitor Coronary artery disease, multiple interventions in the past, most recent cardiac catheterization done March 14, 2015 revealed extensive coronary artery disease, heavily calcified system, with 40 percent distal left main coronary artery stenosis. 3 stents in LAD proximally with 50-60 percent in-stent restenosis. Distal LAD had 95 percent stenosis followed by 80 percent stenosis long segment, very small artery not amendable to intervention. Total occlusion of the first obtuse marginal branch filled by collaterals. Patent stent in the proximal mid second OM branch with moderate disease in the distal proper circumflex artery. Patent stent in the RCA with 50 percent proximal right coronary artery stenosis and 50-60 distal right coronary artery stenosis. Asymptomatic, continue to monitor Stress test in July 2016 showed fixed defect involving the whole inferior wall and inferoapical segment with dilated left ventricle, inferior wall hypokinesia, Ejection fraction 54 percent. Echocardiogram showed ejection fraction 60 percent, dilated left atrium, mild to moderate mitral regurgitation and pulmonary artery pressure of 35 mmHg. continue to monitor Hypertension, controlled, continue to monitor Hyperlipidemia, I will hold statin due to generalized weakness and monitor his response History of CVA in 2010, mild residual right sided weakness, episodes of confusion occurred over the last year where patient became confused and drove over once to [place] and once to [place]. It was felt that it was a global ischemic attack with confusion, workup at that time was negative. He was seen by Dr. Jiménez and started on Dilantin, the dose was increased by Dr. Damon, followed and managed by primary care physician Diabetes mellitus, followed and managed by primary care physician Carotid stenosis, Seen and followed by Dr Simmons, continue to monitor Ex-Tobaccoism, patient smokes pipe, he stopped smoking in October, encouraged to continue with smoking cessation Peripheral neuropathy, maintained on gabapentin. Continue on current medication , continue to monitor Sleep apnea, severe on sleep study in October 2015, does not use his machine. Clinical Quality Measures DVT/VTE Risk/Contraindication: Risk Factor Score Per Nursin RFS Level Per Nursing on Admit: 4+=Very High SEBASTIÁN VALLE MD Sep 08, 2018 08:16
[2018-09-08] MEDS ORDERED: AMIODARONE 200 MG (CORDARONE) TAB PO SCH (09:00)
[2018-09-08] MEDS ORDERED: QUINAPRIL HCL 40 MG PO SCH (09:00)
[2018-09-08] MEDS ORDERED: amLODIPine 10 MG (NORVASC) TAB PO SCH (09:00)
[2018-09-08] MEDS ORDERED: PHENYTOIN 100 MG (DILANTIN) CAP PO SCH (09:00)
[2018-09-08] MEDS: EPA PO SCH (09:23)
[2018-09-08] MEDS: FISH OIL PO SCH (09:23)
[2018-09-08] MEDS: DHA PO SCH (09:23)
[2018-09-08] MEDS: APIXABAN 5 MG (ELIQUIS) TABLET PO SCH (09:24)
[2018-09-08] MEDS: GABAPENTIN 300 MG (NEURONTIN) CAP PO SCH (09:25)
[2018-09-08] MEDS ORDERED: CARB1TAB17 PO (09:53)
[2018-09-08 10:30] VITALS: BP 143/66
--- NOTE | 2018-09-09 07:28 | Clinic Account Progress/Dx ---
Clinic Account Progress/Dx DIAGNOSIS: Time Seen by Provider: 07:27 Generalized weakness. Acute mental status change. Parkinson disease. Dementia. Coronary artery disease. Diabetes. Atrial fibrillation history. Urinary incontinence. Hypertension. Hyperlipidemia. Sleep apnea. Seizure DENIZ KENT DO Sep 09, 2018 07:28
--- NOTE | 2018-09-09 16:01 | Physician Query Clarification ---
PQ-Conflicting Diagnosis Admission/Discharge Admission Date: Sep 06, 2018 at 12:35 Discharge Date: Sep 08, 2018 at 10:45 The medical record reflects the following clinical scenario: History/Risk Factors: Dementia, Parkinson, Hx CVA w/rt hemiparesis, CAD Clinical Findings: generalized weakness, acute mental status changes Treatment: Carbidopa/Levodopa, PT, OT Question: Do you agree with the impression of weakness and altered mental status due to dementia per Dr. Karimi. Please document a response below. PHYSICIAN RESPONSE Do you agree w/Consulting Dx?: No In responding to this query, please exercise your independent professional judgment. The purpose of this communication is to more accurately reflect the complexity of your patients condition. The fact that a question is asked does not imply that any particular answer is desired or expected. Thank you for your timely response to this clarification. Requestors name: Cameron THIS PHYSICIAN QUERY FORM IS A PERMANENT PART OF THE MEDICAL RECORD CAMERON LOUIS Sep 09, 2018 16:01 DENIZ KENT DO Sep 10, 2018 07:11
--- NOTE | 2018-09-10 12:30 | CONSULTATION REPORT ---
DATE OF SERVICE: 09/07/2018 ATTENDING PHYSICIAN: Dr. Damon. SUMMARY: After reviewing the patient's records at the office in the hospital, the patient is being a poor historian because of his mental changes. HISTORY OF PRESENT ILLNESS: This is a 77-year-old man known to me about 4 years ago, was referred because of BPH and elevated PSA and ultrasound of the prostate was performed, which revealed some suspicious lesions in the prostate. The prostate itself was not enlarged. Cystoscopy did not show significant obstruction. The patient does not have significant voiding symptoms. At that time, the patient was on blood thinners. He was a high risk patient and he was referred back to Dr. Damon and his compliance manager to decide about the next step related to the biopsies, if possibly done and possibly hold the anticoagulation. He was lost to follow up, did not hear anything from the physicians or the patient himself, has multiple medical issues neurological and brain morfin this fall and he has been having incontinence according to his , which sounds like possibility of overflow urinary incontinence. He has been on the Flomax by Dr. Damon daily and he increased it in this hospitalization. I deferred any prostate check at this point because of the medical condition of the patient and deferred any checking PSA at least at this point. IMPRESSION: Urinary retention, benign prostatic hyperplasia and neurogenic bladder. PLAN: Continue Flomax b.i.d. and start him first on Urecholine 10 mg a.c. and at bedtime. If he tolerates it well, we will give him a trial of voiding in a day or two and manage accordingly. Job ID: [id number] DocumentID: [id number] Dictated Date: 09/10/2018 09:45:11 Budget Director Date: 09/10/2018 12:29:27 Dictated By: EVERTON GARCIA MD
== END 2018-09-08 10:45 ==
LOC: INTOOBSV 12:35 → 4TH 12:35 → UNDODISIN 09-08 10:45
PROVIDERS: ADMIT Family Medicine; ATTEND Family Medicine
DX: R53.1 Weakness (principal); R41.82 Altered mental status, unspecified; G31.83 Neurocognitive disorder with Lewy bodies; F02.80 Dementia in other diseases classified elsewhere, unspecified severity, without behavioral disturbance, psychotic disturbance, mood disturbance, and anxiety; I69.351 Hemiplegia and hemiparesis following cerebral infarction affecting right dominant side; I25.10 Atherosclerotic heart disease of native coronary artery without angina pectoris; T82.855D Stenosis of coronary artery stent, subsequent encounter; E11.42 Type 2 diabetes mellitus with diabetic polyneuropathy; E11.649 Type 2 diabetes mellitus with hypoglycemia without coma; Z66 Do not resuscitate; Z79.4 Long term (current) use of insulin; I48.0 Paroxysmal atrial fibrillation; N40.1 Benign prostatic hyperplasia with lower urinary tract symptoms; R32 Unspecified urinary incontinence; R26.81 Unsteadiness on feet; I10 Essential (primary) hypertension; G47.30 Sleep apnea, unspecified; R56.9 Unspecified convulsions
CPT/HCPCS: 36415; 70551; 71045; 72040; 80048; 80053; 80061; 81000; 82962; 83036; 83735; 84153; 84443; 84484; 85025; 85027; 90686; 93005; G0378

== ENCOUNTER → 2018-09-06 | Outpatient (CLI) | payer MEDICARE ==
[~2018-09-06] MED LIST changes: +AMIO200T4 PO; +AMLO10TA6 PO; +APIX5TAB PO; +ATOR40TA70 PO; +CARB1TAB17 PO; +GABA-488 PO; +INSU100I29 SQ; +METO-395 PO; +MULT-35 PO; +PHEN100C11 PO; +PHEN100C4 PO; +QUIN40TA14 PO; +TAMS0.4C2 PO
[2018-09-06 11:39] LABS: ALBUMIN 3.5 GM/DL (3.2-4.5); BILIRUBIN,TOTAL 0.6 MG/DL (0.1-1.0); CALCIUM 10.3 MG/DL (8.5-10.1); CREATININE SERUM 1.57 MG/DL (0.60-1.30); POTASSIUM 4.5 MMOL/L (3.6-5.0); TOTAL PROTEIN 7.2 GM/DL (6.4-8.2)
--- NOTE | 2018-09-06 11:59 | Diagnostic Imaging Report ---
PROCEDURE: CT head without contrast. TECHNIQUE: Multiple contiguous axial images were obtained through the brain without the use of intravenous contrast. INDICATION: Altered mental status. Comparison is made with prior head CT from 08/04/2017. Ventricles and sulci are prominent consistent with cerebral atrophy. This is similar to prior exam. There is moderate periventricular hypodensity noted consistent with chronic microvascular ischemia. There is some slight thickening of the posterior falx to 4-5 mm, increased since the exam from one year earlier. This could represent minimal subdural blood and followup would be recommended. There is no mass effect. There is no midline shift. No suspicious hyperdensity along the convexities elsewhere is seen. The cisterns are patent. Visualized paranasal sinuses are clear. Impression: Slight thickened hyperdensity along the posterior falx, image 18. This may represent minimal acute subdural blood. The remainder of the study appears stable when compared with examination from 08/04/2017 demonstrating findings of cerebral atrophy and chronic microvascular ischemia. Followup CT would be useful to confirm stability or resolution. Report was called to Dr. Damon by scarlett at 11:53 am. Dictated by: Dictated on workstation # [id number]
--- NOTE | 2018-09-06 12:02 | Diagnostic Imaging Report ---
INDICATION: Left hip pain. FINDINGS: Two views of the left hip show concentric joint space narrowing. There are small osteophytes at the margins of the articular surfaces. Articular surfaces are smooth, and femoral head shape is maintained. IMPRESSION: Mild degenerative changes of the left hip. No acute abnormality seen. Dictated by: Dictated on workstation # [id number]
== END ==
LOC: RAD 10:57
PROVIDERS: ATTEND Family Medicine
DX: I67.82 Cerebral ischemia (principal); G31.9 Degenerative disease of nervous system, unspecified; M16.12 Unilateral primary osteoarthritis, left hip
CPT/HCPCS: 36415; 70450; 73502; 80053; 80185

== ENCOUNTER 2018-09-08 09:48 | Inpatient (IN) | payer MEDICARE ==
[~2018-09-08] VITALS: Ht 182.9 cm; Wt 80.6 kg
[~2018-09-08 09:48] MED LIST changes: +AMIO200T4 PO; +AMLO10TA6 PO; +APIX5TAB PO; +ATOR40TA70 PO; +GABA-488 PO; +INSU100I29 SQ; +METO-395 PO; +MULT-35 PO; +PHEN100C11 PO; +PHEN100C4 PO; +QUIN40TA14 PO; +TAMS0.4C2 PO
[2018-09-08] MEDS ORDERED: CARB1TAB17 PO (09:53)
--- NOTE | 2018-09-08 11:27 | Physical Therapy Evaluation ---
PT Evaluation-General Medical Diagnosis Admission Date Sep 08, 2018 at 10:18 Medical Diagnosis: Parkinson's Onset Date: Sep 06, 2018 Therapy Diagnosis Therapy Diagnosis: Debility, Left side neglect, Left LE weakness Height/Weight Height (Feet): 6 Height (Inches): 0.00 Weight (Pounds): 191 Weight (Ounces): 0.0 Precautions Precautions/Isolations: Fall Prevention Weight Bear Status Right Lower Extremity: Right Full Weight Bearing Left Lower Extremity: Left Full Weight Bearing Referral Physician: Isreal Reason for Referral: Evaluation/Treatment Medical History Pertinent Medical History: Atrial Fib, CAD, DM, Dementia, Parkinson's Current History Pt admitted to inpatient rehabilitation from med/surg. Reviewed History: Yes Social History Home: Single Level Current Living Status: Spouse Entry Into Home: Level Entry PT Steps Inside Home: 0 Prior/Core FIM Prior Level of Function Functional [place] Measure 0=Not Assessed/NA 4=Minimal Assistance 1=Total Assistance 5=Supervision or Setup 2=Maximal Assistance 6=Modified [place] 3=Moderate Assistance 7=Complete [place] IRFPAI Quality Coding Scale 6 Independent with activity with or without an assistive device 5 Patient requires set up or clean up by helper. Patient completes activity by themselves 4 Supervision or touching assist (CGA). [place] provide cues , steadying assist 3 The helper provides less than half the effort to complete the activity 2 The helper provides more than half the effort to complete the activity 1 Dependent. The helper does all the effort to complete an activity 7 Patient refused to complete or attempt activity 9 The patient did not perform the activity before the current illness or injury 88 Not attempted due to Medical conditions or safety concerns Functional Abilities and Goals 3. Independent: Patient completed the activities by him/herself, with or without an assistive device, with no assistance from a helper. 2. Needed Some Help: Patient needed partial assistance from another person to complete activities. 1. Dependent: A helper completed the activities for the patient. 8. Unknown: 9. Not Applicable: unknown PT Evaluation-Current Subjective Pt sleep in bed when PT arrived. Pt woke up to greeting and agreed to evaluation by PT. Pain Numeric Pain Scale: 0-No Pain Location: No Pain Reported Objective Patient Orientation: Person, Confused, Mumbles Attachments: Patel Catheter ROM/Strength ROM Upper Extremities WNL ROM Lower Extremities WNL Strength Upper Extremities NT Strenght Lower Extremities R LE 4/5 L - unable to assess due to patient not understanding instruction Integumentary/Posture Bladder Incontinence: Patel Cath Neuromuscular (Tone, Coordination, Reflexes) NT Sensory Vision: Functional Hearing: Unable to Assess Sensation Right Upper Extremit: Intact Sensation Left Upper Extremity: Intact Sensation Right Lower Extremit: Intact Sensation Left Lower Extremity: Intact Transfers Functional [place] Measure 0=Not Assessed/NA 4=Minimal Assistance 1=Total Assistance 5=Supervision or Setup 2=Maximal Assistance 6=Modified [place] 3=Moderate Assistance 7=Complete [place] IRFPAI Quality Coding Scale 6 Independent with activity with or without an assistive device 5 Patient requires set up or clean up by helper. Patient completes activity by themselves 4 Supervision or touching assist (CGA). [place] provide cues , steadying assist 3 The helper provides less than half the effort to complete the activity 2 The helper provides more than half the effort to complete the activity 1 Dependent. The helper does all the effort to complete an activity 7 Patient refused to complete or attempt activity 9 The patient did not perform the activity before the current illness or injury 88 Not attempted due to Medical conditions or safety concerns Transfers (B, C, W/C) (FIM): 3 Scootin Rollin Roll Left to Right (QC): 2 Supine to/from Sit: 3 Sit to/from Stand: 3 bed t/f WC(FIM only if WC use): 3 Sit to Lying (QC): 2 Lying to Sitting/Side of Bed(Q: 2 Sit to Stand (QC): 2 Chair/Gkl-ky-Urrnc Xfer(QC): 2 Car Transfer (QC): 2 Patient performs bed mobility and transfers with mod assist, transfers mod assist, car transfer mod assist. Patient resists transferring to the left side. Gait Does the Patient Walk?: Yes Mode of Locomotion: Both Anticipated Mode of Locomotion: Both Gait (FIM): 1 Distance (FIM): 1=up to 49 ft Walk 10 feet (QC): 88 Walk 50 ft with 2 Turns(QC): 88 Walk 150 ft (QC): 88 Walking 10ft/uneven surface-QC: 88 Distance: 5' Gait Level of Assist: 3 Gait Persons Needed: 1 Gait Assistive Device: Parallel Bars Comments/Gait Description Patient can ambulate 5' in the parallel bars with mod assist. He needs assist with weight shifting, balance, advancing left foot, cues for positioning. Patient is resistance to movement in general, even during ambulation. Wheelchair Training Does the Pt Use a Wheelchair?: Yes Wheelchair (FIM): 1 Distance: 20' Wheelchair Level of Assist: 3 Wheel 50 ft with 2 turns (QC): 88 Wheel 150 ft (QC): 88 Type of Wheelchair: Manual Stairs If not tested on admit;explain Patient is not safe to perform stairs at this time due to balance impairments and left neglect and resistance to movement. Balance Sitting Static: Good Sitting Dynamic: Good Standing Static: Poor Standing Dynamic: Poor Treatment Seated LE exercises performed x20: Leg kicks, Heel slides, Ankle pumps, Seated marching. Assessment/Needs Pt is mod A in bed/mat mobility and sit/stand transfers. Patient requires Mod A for ambulation in parallel bars. He resists transfers when moving to his left and will often use his hand to grab onto an object and not let go. Patient needs to be cued when stepping and weight shifts facilitated by therapist. Chase finished therapy with seated LE exercises and returned to room to work with occupational therapy. Rehab Potential: Guarded PT Short Term Goals Short Term Goals Time Frame: Sep 15, 2018 Transfers (B,C,W/C) (FIM): 4 Gait (FIM): 1 Gait Distance Comment: 20' Gait Level of Assist: 3 Gait Assistive Device: Walker Cristian PT Nursing Home Goals Pole Setter Goals PT Nursing Home Goals Time Frame: Sep 29, 2018 Transfers (B,C,W/C) (FIM): 4 Sit to Lying (QC): 4 Lying-Sitting on Side/Bed(QC): 4 Sit to Stand (QC): 4 Rollin Roll Left to Right (QC): 4 Chair/Wms-pm-Ujpav Xfer(QC): 4 Car Transfer (QC): 4 Does the Patient Walk: Yes Gait (FIM): 2 Gait distance (FIM): 1=up to 49 ft Distance: 50' Walk 10 feet (QC): 3 Walk 10ft-Uneven Surface(QC): 3 Walk 50ft with 2 Turns (QC): 3 Walk 150 ft (QC): 0 Gait Level of Assist: 4 Gait Assistive Device: Walker Cristian Does the Pt use WC or Scooter?: Yes Wheelchair (FIM): 2 Wheelchair distance (FIM): 1=up to 49 ft Distance: 50 Wheelchair Level of Assist: 4 Wheel 50 feet with 2 turns (QC: 4 Stairs (FIM): 1 # of Steps: 1 1 Step (curb) (QC): 3 4 Steps (QC): 0 12 Steps (QC): 0 Stairs Level Of Assist: 4 Picking up an Object (QC): 0 PT Plan Problem List Problem List: Activity Tolerance, Functional Strength, Safety, Balance, Gait, Transfer, Bed Mobility, ROM Treatment/Plan Treatment Plan: Continue Plan of Care Treatment Plan: Bed Mobility, Concurrent Therapy, Education, Functional Activity Navya, Functional Strength, Group Therapy, Gait, Safety, Therapeutic Exercise, Transfers Treatment Duration: Sep 29, 2018 Frequency: At least 5 of 7 days/Wk (IRF) Estimated Hrs Per Day: 1.5 hours per day Patient and/or Family Agrees t: Yes Safety Risks/Education Patient Education: Gait Training, Transfer Techniques, Correct Positioning, W/ C Management, Safety Issues Teaching Recipient: Patient Teaching Methods: Demonstration, Discussion Response to Teaching: Reinforcement Needed Discharge Recommendations Plan Patient will perform bed mobility and transfer training, balance and endurance training, functional strengthening, stair training, gait training, and education , to improve functional mobility and independence at home. Therapy D/C Recommendations: Home w/ Family Support, Jail (TCU/NH) Time/GCodes Time In: 1020 Time Out: 1120 Total Billed Treatment Time: 60 Total Billed Treatment 1 Visit JOSÉ 30' GT 15' FA 15' FABRICIO ALFONSO PT Sep 08, 2018 11:27
[2018-09-08 12:15] VITALS: BP 134/78
[2018-09-08] MEDS ORDERED: PANTOPRAZOLE 40 MG (PROTONIX) TAB PO PRN (12:15)
[2018-09-08] MEDS ORDERED: PATIENT MAY USE OWN MEDS, ALL MC SCH (12:15)
--- NOTE | 2018-09-08 12:27 | Occupational Therapy Eval ---
OT Evaluation-General/PLF Medical Diagnosis Admission Date Sep 08, 2018 at 10:18 Medical Diagnosis: Parkinsons Onset Date: Sep 06, 2018 Therapy Diagnosis Therapy Diagnosis: decr self care, decr funct mob, decr act lillie, decr cognition Height/Weight Height (Feet): 6 Height (Inches): 0.00 Weight (Pounds): 191 Weight (Ounces): 0.0 Precautions Precautions/Isolations: Fall Prevention Referral Physician: Isreal Referral Reason: Evaluation/Treatment Medical History Pertinent Medical History: Atrial Fib, CAD, CVA, DM, Dementia, Parkinson's Additional Medical History Cardiac stents, BPH. Incontinence Current History Pt admitted with altered mental status, possible brain bleed. Reviewed History: Yes Social History Home: Single Level Current Living Status: Spouse Entry Into Home: Level Entry Steps Inside Home: 0 Pt is poor historian ADL-Prior Level of Function Functional [place] Measure 0=Not Assessed/NA 4=Minimal Assistance 1=Total Assistance 5=Supervision or Setup 2=Maximal Assistance 6=Modified [place] 3=Moderate Assistance 7=Complete [place] IRFPAI Quality Coding Scale 6 Independent with activity with or without an assistive device 5 Patient requires set up or clean up by helper. Patient completes activity by themselves 4 Supervision or touching assist (CGA). [place] provide cues , steadying assist 3 The helper provides less than half the effort to complete the activity 2 The helper provides more than half the effort to complete the activity 1 Dependent. The helper does all the effort to complete an activity 7 Patient refused to complete or attempt activity 9 The patient did not perform the activity before the current illness or injury 88 Not attempted due to Medical conditions or safety concerns Functional Abilities and Goals 3. Independent: Patient completed the activities by him/herself, with or without an assistive device, with no assistance from a helper. 2. Needed Some Help: Patient needed partial assistance from another person to complete activities. 1. Dependent: A helper completed the activities for the patient. 8. Unknown: 9. Not Applicable: ADL PLOF Comments Pt reported that he was previously able to manage his basic self care. He said that he doesn't drive and is retired from a company in [place] but unable to recall its name. Unknown if he needed help with medications. Son reported that he was able to be home alone during the day while his worked. Self Care: Unknown Functional Cognition: Unknown Pt reported that he used a shower OT Current Status Subjective Pt seen in room, up in w/c, agreeable to OT. Pain reported 0/10 Appearance Flat affect. Oriented to name only. Mental Status/Objective Patient Orientation: Person Attachments: Patel Catheter Current Glasses/Contacts: Yes Hearing Aids: No Dentures/Partials: No Hand Dominance: Left Upper Extremity ROM Grossly WFL bilat Upper Extremity Strength Grossly 4/5 bilat. No lag Pt had more difficulty tracking visually to R side and neglected R side during ADLs ADL-Treatment ADL-Current Pt transported to bathroom per w/c and positioned at sink. Required cues 100% for sequencing and initiating grooming tasks, as well as hand over hand help. Perseverated with brushing teeth, combing mustache. Cues to comb hair on R side. Confused and put handwashing soap on hair. Required extra time and delayed responses verbally and physically. Per PT, required mod assist for all transfers and resistant to transferring to L side. Eating (FIM): 5 (setup, cues to look to find all food items. Able to get a drink) Eating (QC): 4 (supervision) Grooming (FIM): 3 (mod assist) Oral Hygiene (QC): 3 On/Off Footwear (QC): 4 (Able to get slipper socks off with supervision and able to get R sock back on but needed help with left one.) Education OT Patient Education: Modified ADL techniques, Purpose of tx/functional activities, Rehab process Teaching Recipient: Patient Teaching Methods: Demonstration Response to Teaching: Verbalize Understanding, Reinforcement Needed OT Short Term Goals Short Term Goals Time Frame: Sep 15, 2018 Grooming(FIM): 5 Toilet/Commode Transfer(FIM): 4 1=Demonstrate adherence to instructed precautions during ADL tasks. 2=Patient will verbalize/demonstrate understanding of assistive devices/ modifications for ADL. 3=Patient will improve strength/tolerance for activity to enable patient to perform ADL's. OT Lacquer Spray Booth Operator Goals Custodial Goals Time Frame: Sep 29, 2018 Eating (FIM): 6 Eating (QC): 6 Groomin Oral Hygiene (QC): 5 Bathing(FIM): 5 Shower/Bathe Self (QC): 5 Upper Body Dressing(FIM): 6 Upper Body Dressing (QC): 6 Lower Body Dressing(FIM): 6 Lower Body Dressing (QC): 6 On/Off Footwear (QC): 6 Toileting(FIM): 6 Toileting Hygiene (QC): 6 Toilet/Commode Transfer(FIM): 6 Toilet/Commode Transfer (QC): 6 Shower Transfer(FIM): 5 Additional Goals: 1-Demonstrate ADL Tasks, 2-Verbalize Understanding, 3- ImproveStrength/Navya 1=Demonstrate adherence to instructed precautions during ADL tasks. 2=Patient will verbalize/demonstrate understanding of assistive devices/ modifications for ADL. 3=Patient will improve strength/tolerance for activity to enable patient to perform ADL's. OT Education/Plan Problem List/Assessment Assessment: Decreased Safety Aware, Decreased UE Strength, Dependent Transfers , Impaired Bed Mobility, Impaired Cognition, Impaired Self-Care Skills, Visual- Perceptual Deficit Pt would benefit from skilled OT to increase his independence in basic self care Discharge Recommendations Plan/Recommendations: Continue POC Treatment Plan/Plan of Care Treatment,Training & Education: Yes Patient would benefit from OT for education, treatment and training to promote independence in ADL's, mobility, safety and/or upper extremity function for ADL' s. Plan of Care: ADL Retraining, Caregiver Training, Functional Mobility, Group Exercise/Act as Ind (education, exercise, socialization, funct activities, communication), UE Funct Exercise/Act, UE Neuromus Re-Ed/Coord, Visual/ Perceptual Retrain Treatment Duration: Sep 29, 2018 Frequency: At least 5 of 7 days/Wk (IRF) Estimated Hrs Per Day: 1.5 hours per day (1.25 to 1.5) Agreement: Yes Rehab Potential: Guarded Time/GCodes Start Time: 11:20 Stop Time: 12:10 Total Time Billed (hr/min): 50 Billed Treatment Time visit, 20 minutes evaluation high intensity, 30 minutes ADL CECILIA BOYD OT Sep 08, 2018 12:27
--- NOTE | 2018-09-08 14:26 | Physical Therapy Daily Note ---
PT Daily Note-Current Subjective Pt agreed to participate in co-treatment between PT and OT due to impaired patient mobility and balance. Pain Numeric Pain Scale: 0-No Pain Location: No Pain Reported Mental Status Patient Orientation: Person, Confused, Mumbles Attachments: Patel Catheter Transfers Functional [place] Measure 0=Not Assessed/NA 4=Minimal Assistance 1=Total Assistance 5=Supervision or Setup 2=Maximal Assistance 6=Modified [place] 3=Moderate Assistance 7=Complete [place] IRFPAI Quality Coding Scale 6 Independent with activity with or without an assistive device 5 Patient requires set up or clean up by helper. Patient completes activity by themselves 4 Supervision or touching assist (CGA). [place] provide cues , steadying assist 3 The helper provides less than half the effort to complete the activity 2 The helper provides more than half the effort to complete the activity 1 Dependent. The helper does all the effort to complete an activity 7 Patient refused to complete or attempt activity 9 The patient did not perform the activity before the current illness or injury 88 Not attempted due to Medical conditions or safety concerns Transfers (B, C, W/C) (FIM): 3 Scootin Rollin Supine to/from Sit: 3 Sit to/from Stand: 3 Bed to/from Chair: 3 Patient needed assist with both legs getting into bed. Weight Bearing Right Lower Extremity: Right Full Weight Bearing Left Lower Extremity: Left Full Weight Bearing Gait Training Does the Patient Walk?: Yes Gait (FIM): 1 Distance (FIM): 1=up to 49 ft Distance: 5' Gait Level of Assist: 3 Gait Persons Needed: 1 Gait Assistive Device: FWW Exercises Standing: Sit to Stand Standing Reps: 5 Assessment Current Status: Poor Progress PT worked with OT to co-treat patient for therapy. PT assisted Pt with mod A during transfers from chair/toilet/bed. Patient needs cueing for foot placement and weight shifting during activities. PT Short Term Goals Short Term Goals Time Frame: Sep 15, 2018 Transfers (B,C,W/C) (FIM): 4 Gait (FIM): 1 Gait Distance Comment: 20' Gait Level of Assist: 3 Gait Assistive Device: Walker Cristian Wheelchair Distance: 20' PT [place] Machine Operator Goals Retirement Goals PT [place] Machine Operator Goals Time Frame: Sep 29, 2018 Transfers (B,C,W/C) (FIM): 4 Sit to Lying (QC): 4 Lying-Sitting on Side/Bed(QC): 4 Sit to Stand (QC): 4 Rollin Roll Left to Right (QC): 4 Chair/Rjw-gz-Luird Xfer(QC): 4 Car Transfer (QC): 4 Does the Patient Walk: Yes Gait (FIM): 2 Gait distance (FIM): 1=up to 49 ft Distance: 50' Walk 10 feet (QC): 3 Walk 10ft-Uneven Surface(QC): 3 Walk 50ft with 2 Turns (QC): 3 Walk 150 ft (QC): 0 Gait Level of Assist: 4 Gait Assistive Device: Walker Cristian Does the Pt use WC or Scooter?: Yes Wheelchair (FIM): 2 Wheelchair distance (FIM): 1=up to 49 ft Distance: 50 Wheelchair Level of Assist: 4 Wheel 50 feet with 2 turns (QC: 4 Stairs (FIM): 1 # of Steps: 1 1 Step (curb) (QC): 3 4 Steps (QC): 0 12 Steps (QC): 0 Stairs Level Of Assist: 4 Picking up an Object (QC): 0 PT Plan Problem List Problem List: Activity Tolerance, Functional Strength, Safety, Balance, Gait, Transfer, Bed Mobility, ROM Treatment/Plan Treatment Plan: Continue Plan of Care Treatment Plan: Bed Mobility, Concurrent Therapy, Education, Functional Activity Navya, Functional Strength, Group Therapy, Gait, Safety, Therapeutic Exercise, Transfers Treatment Duration: Sep 29, 2018 Frequency: At least 5 of 7 days/Wk (IRF) Estimated Hrs Per Day: 1.5 hours per day Patient and/or Family Agrees t: Yes Safety Risks/Education Patient Education: Gait Training, Transfer Techniques, Correct Positioning, Safety Issues Teaching Recipient: Patient Teaching Methods: Demonstration, Discussion Response to Teaching: Reinforcement Needed Time/GCodes Time In: 1405 Time Out: 1420 Total Billed Treatment Time: 15 Total Billed Treatment 1 Visit FA - 15' PT worked on standing, balance, transfers, OT worked on cleaning patient, dressing. FABRICIO ALFONSO PT Sep 08, 2018 14:26
--- NOTE | 2018-09-08 14:28 | PM&R Post Admission Assessment ---
Post Admission Physician Asses Date seen by provider: Sep 08, 2018 Time seen by provider: 14:00 The preadmission screen agrees with the post admission assessment that the patient is a good candidate for inpatient rehabilitation. The patient will have a comprehensive program of inpatient rehabilitation with a goal of maximizing level of functional independence prior to discharge home with spouse. The patient will have PT/OT ninety minutes per day, each discipline, five days a week for 2 weeks for gait, strengthening, conditioning , balance, ADLs, any patient/family/caregiver training as necessary. Speech therapy to do cognitive assessment and treat as indicated. Rehabilitation nursing to assist with bowel, bladder, skin, wound care, medication administration, pain management. Change Booth Attendant to assist with discharge planning, community reentry. SCD's for DVT prophylaxis. He appears to be well motivated to participate in three hours of therapy a day. He should be able to tolerate three hours of therapy a day from a medical standpoint. He should benefit from the three hours of therapy a day. He has a reasonable discharge plan, reasonable discharge rehabilitation goals and a supportive family. He has various comorbidities that need to be closely monitored with medications and treatments adjusted on a daily basis as needed. These include: Mild ementia DM PAF SSS s/p pacemaker CAD s/p stent Barriers to discharge for this patient who had been Modified independent prior to this are for him to be modified independent to supervision for ADLs and mobility skills prior to discharge home with spouse, so as to lessen the burden of the caregivers. Risks for this patient include: 1. Fall 2. Fracture 3. DVT 4. Pulmonary embolism 5. Poorly controlled DM 6. Skin breakdown 7. Contractures 8. Poorly controlled pain 9. Urinary retention 10. UTI 11. Respiratory infection 12. Aspiration 13. Poorly controlled A FIB Estimated Length of Stay: 14 days Prognosis: Rehab prognosis appears good for goal of discharge home with spouse modified independent to supervision for ADLs and mobility skills. Date Identified: Sep 08, 2018 Time Identified: 14:00 Action Plan to Resolve CSMI: Transfer meds reviewed General: Alert, Cooperative, No Acute Distress HEENT: Atraumatic, PERRLA, EOMI, Mucous Memb Moist/[place] Neck: Supple, No JVD Lungs: Clear to Auscultation Heart: Regular Rate Abdomen: Normal Bowel Sounds, Soft, No Tenderness Extremities: No Edema, Other (Indwelling Patel catheter to DD) Neuro: Other (Impaired strength Left leg Impaired balance Mild dementia with memory loss) YOVANY DANIELS MD Sep 08, 2018 14:28
--- NOTE | 2018-09-08 14:32 | Occupational Ther Daily Note ---
OT Current Status-Daily Note Subjective Pt alert, finishing up lunch. Sitting in w/c. Pt agrees to therapy. No c/o pain at this time. Mental Status/Objective Patient Orientation: Person, Place, Time, Situation Functional [place] Measure 0=Not Assessed/NA 4=Minimal Assistance 1=Total Assistance 5=Supervision or Setup 2=Maximal Assistance 6=Modified [place] 3=Moderate Assistance 7=Complete [place] Attachments: Patel Catheter ADL-Treatment PT/OT co-treat for skilled care due to decreased mobility and activity tolerance. PT worked on transfers. OT worked on ADLs. Pt was set up for sponge bath. Pt required assist to reach and grasp then wring out rags. Verbal cues to wash all areas. Pt able to don/doff shirt after set up. Dependent with lower body dressing due to assist x2 for standing to hike pants over hips. Assist to pull up/down legs. Max A for toilet transfer and hygiene. After therapy, pt lying in bed with call light/phone in reach. All needs met in room. Functional [place] Measure 0=Not Assessed/NA 4=Minimal Assistance 1=Total Assistance 5=Supervision or Setup 2=Maximal Assistance 6=Modified [place] 3=Moderate Assistance 7=Complete [place] IRFPAI Quality Coding Scale 6 Independent with activity with or without an assistive device 5 Patient requires set up or clean up by helper. Patient completes activity by themselves 4 Supervision or touching assist (CGA). [place] provide cues , steadying assist 3 The helper provides less than half the effort to complete the activity 2 The helper provides more than half the effort to complete the activity 1 Dependent. The helper does all the effort to complete an activity 7 Patient refused to complete or attempt activity 9 The patient did not perform the activity before the current illness or injury 88 Not attempted due to Medical conditions or safety concerns Bathing (FIM): 1 (Assist x2 in standing to cleanse buttocks.) Bathing Location: L Arm, R Arm, L Upper Leg, R Upper Leg, Chest, Abdomen, Perineal Area Shower/Bathe Self (QC): 1 Upper Body (FIM): 5 Upper Body Dressing (QC): 4 Lower Body Dressing (FIM): 1 Lower Body Dressing (QC): 1 On/Off Footwear (QC): 2 Toileting (FIM): 1 Toileting Hygiene (QC): 1 Toilet/Commode Transfer (FIM): 1 OT Short Term Goals Short Term Goals Time Frame: Sep 15, 2018 Grooming(FIM): 5 Transfers (B,C,W/C) (FIM): 4 Toilet/Commode Transfer(FIM): 4 1=Demonstrate adherence to instructed precautions during ADL tasks. 2=Patient will verbalize/demonstrate understanding of assistive devices/ modifications for ADL. 3=Patient will improve strength/tolerance for activity to enable patient to perform ADL's. OT Usp Goals Weld Technician Goals Time Frame: Sep 29, 2018 Eating (FIM): 6 Eating (QC): 6 Groomin Oral Hygiene (QC): 5 Bathing(FIM): 5 Shower/Bathe Self (QC): 5 Upper Body Dressing(FIM): 6 Upper Body Dressing (QC): 6 Lower Body Dressing(FIM): 6 Lower Body Dressing (QC): 6 On/Off Footwear (QC): 6 Toileting(FIM): 6 Toileting Hygiene (QC): 6 Toilet/Commode Transfer(FIM): 6 Toilet/Commode Transfer (QC): 6 Shower Transfer(FIM): 5 Additional Goals: 1-Demonstrate ADL Tasks, 2-Verbalize Understanding, 3- ImproveStrength/[place] 1=Demonstrate adherence to instructed precautions during ADL tasks. 2=Patient will verbalize/demonstrate understanding of assistive devices/ modifications for ADL. 3=Patient will improve strength/tolerance for activity to enable patient to perform ADL's. OT Education/Plan Problem List/Assessment Pt would benefit from skilled OT to increase his independence in basic self care Discharge Recommendations Plan/Recommendations: Continue POC Treatment Plan/Plan of Care Patient would benefit from OT for education, treatment and training to promote independence in ADL's, mobility, safety and/or upper extremity function for ADL' s. Plan of Care: ADL Retraining, Caregiver Training, Functional Mobility, Group Exercise/Act as Ind (education, exercise, socialization, funct activities, communication), UE Funct Exercise/Act, UE Neuromus Re-Ed/Coord, Visual/ Perceptual Retrain Treatment Duration: Sep 29, 2018 Frequency: At least 5 of 7 days/Wk (IRF) Estimated Hrs Per Day: 1.5 hours per day (1.25 to 1.5) Agreement: Yes Rehab Potential: Guarded Time/GCodes Start Time: 12:55 Stop Time: 13:20 Total Time Billed (hr/min): 25 Billed Treatment Time 1 visit-ADL 2 (25 min) Co-treat with PT 15 min SRINIVAS MARTINEZ Sep 08, 2018 14:32
--- NOTE | 2018-09-08 15:04 | HISTORY AND PHYSICAL ---
DATE OF SERVICE: 09/08/2018 CHIEF COMPLAINT: Difficulty with walking. HISTORY OF PRESENT ILLNESS: The patient is a 77-year-old male with a history of mild dementia, but had been able to get along at home while his was at work. He is retired. He lives in [place], [place]. He reports not using a walker or cane prior to this, but did require some assistance for higher order ADLs due to memory loss. He was admitted to [facility] to the service of Dr. Damon, FRANCK due to change in mental status. An MRI of the brain revealed no acute infarct, but findings consistent with generalized ischemia. A CT of the cervical spine showed cervical spondylosis. The patient currently has an indwelling Patel catheter for bladder management. He was referred to inpatient rehabilitation unit. He was started on medication for Parkinson's disease. Currently, he is set up for eating, mod assist for grooming, oral hygiene, min assist for upper body dressing and max assist for lower body dressing. He is mod assist for gait 5 feet in the parallel bars. He is mod to max assist for transfers. He is mod assist for wheelchair propulsion. Has difficulty following commands at time, but is alert and pleasant, cooperative. PAST MEDICAL HISTORY: Atrial fibrillation, coronary artery disease, diabetes mellitus, dementia, Parkinson's. He has been followed by cardiology also during this most recent admission. PAST SURGICAL HISTORY: Noncontributory. ALLERGIES: No known drug allergies. FAMILY HISTORY: Noncontributory. SOCIAL HISTORY: Essentially as per above. REVIEW OF SYSTEMS: A 10-point review of systems significant for memory loss, unsteady gait. MEDICATIONS: Quinapril 40 mg p.o. daily, amiodarone 200 mg p.o. daily. Amlodipine 10 mg p.o. daily, multivitamins with minerals one tablet p.o. daily, glipizide 5 mg p.o. daily, fish oil 1200 mg p.o. b.i.d., phenytoin 200 mg p.o. each day at bedtime, Toprol 100 mg p.o. each day at bedtime, Gabapentin 300 mg p.o. b.i.d., Eliquis 5 mg p.o. b.i.d., Flomax .4 mg p.o. q. evening, Sinemet 10/100 one tablet p.o. t.i.d. with meals, sliding scale insulin regimen A, Protonix 40 mg p.o. daily. PHYSICAL EXAMINATION: GENERAL: Significant for a male appearing his stated age, sitting in wheelchair, in no acute distress. VITAL SIGNS: Blood pressure is 143/68, O2 sat 95% on room air, respirations 20, pulse 90, he is afebrile. HEENT: Vision, speech, hearing is functional. No oral lesion is noted. NECK: Supple without mass. HEART: Regular rhythm. CHEST: Clear. ABDOMEN: Soft, nontender, bowel sounds present. GENITOURINARY: Indwelling Patel catheter to dependent drainage. EXTREMITIES: No lower leg edema, no calf tenderness. MUSCULOSKELETAL: The patient has functional active range of motion in all 4 limbs. NEUROLOGIC: He has mild dementia, able to follow simple commands. Sensation is grossly intact to touch. Strength right lower extremity 4/5, left 3+/5. Strength both upper limbs 4/5. He is left hand dominant. He has difficulty tracking to the right side and neglected right side during ADLs. IMPRESSION: 1. Parkinson's disease on Sinemet. 1. Dementia. 2. Diabetes mellitus. 3. Coronary artery disease. 4. Urinary incontinence. 5. Paroxysmal Atrial fibrillation maintained on Eliquis. 6. History of nonsustained ventricular tachycardia noted on interrogation 2015. Has been maintained on amiodarone 200 mg daily. 7. Sick sinus syndrome, status post permanent pacemaker implantation in April 2015. PLAN: The patient will have a comprehensive program of inpatient rehabilitation with goal of maximizing level of functional independence prior to discharge home with spouse and home health care. The patient will have PT, OT 90 minutes per day each discipline, 5 days a week for the above goals in mind. Please see post-admission physician evaluation which is separate document for details of plan of care. Speech therapy to do cognitive assessment and treat as indicated. Rehabilitation nursing to assist with bowel, bladder, skin,Patel catheter care, medication administration, pain management. policy services representative to assist with discharge planning, community reentry. Follow up with Dr. Damon and cardiology as per their schedule. ESTIMATED LENGTH OF STAY: Two weeks. PROGNOSIS: Rehab prognosis appears good for goal of discharging home with spouse hopefully modified independent to supervision for ADLs and mobility skills. DIET: Carb consistent. CODE STATUS: DNR. Job ID: [id number] DocumentID: [id number] Dictated Date: 09/08/2018 14:22:02 Parts Sales Counterperson Date: 09/08/2018 15:04:24 Dictated By: YOVANY DANIELS MD [facility]PITAL[facility]
--- NOTE | 2018-09-08 16:00 | ST Cognitive Linguistic Eval ---
Speech Evaluation-General Medical Diagnosis Parkinson's Onset Date: Sep 06, 2018 Therapy Diagnosis Therapy Diagnosis: Cognitive-Communication Precautions Precautions/Isolations: Fall Prevention Medical History Pertinent Medical History: Atrial Fib, CAD, CVA, DM, Dementia, Parkinson's Reviewed History: Yes Social History Current Living Status: Spouse Speech PLF-Current Status Prior Level of Function Patient lived at home with his where he was primarily independent for his daily needs. Subjective Patient was pleasant and cooperative, however he did fall asleep multiple times during the evaluation and had to be awakened to complete the eval. Language Eval: Auditory Comprehends Simple Yes/No Ques: Moderate Indent/Objects Multiple [place]: Moderate Follows 1-Step Commands: Moderate Language Eval: Verbal Language Completes Spontaneous Greeting: Mild Produces Auto, Serial Info: Moderate Imitates Simple Words/Phrases: Moderate Word Finding: Moderate Requests Basic Needs: Moderate States Basic Personal Info: Mild Expresses Complex Ideas: Severe Language Evaluation: Reading Comprehends Single Nouns: Moderate Comprehends Multiple Sentences: Severe Cognitive Patient Orientation Patient oriented to self and place. Objective Cognitive Domain Attention: Moderate Memory: Moderate Problem Solving: Moderate Executive Functions: Moderate Visuospatial Skills: Moderate Objective Formal/Standardized Tests [facility] Cognitive/Communication Results Memory: 3:3, Delayed: 0:3, Cues of field of 3 given: 0:3, Orientation: 2:3, Organization/[place]enc[place]:5 Oral Motor/Speech Production Min to mod decreased secondary to Martines's Palsy in the . Impression Patient exhibits moderate cognitive-communication deficits in the areas of following directions, memory and problem solving. Communication/Social Cognition Comprehension: 2 Expression: 2 Social Interaction: 3 Problem Solvin Memory: 3 Speech Patient Assess Expression of Ideas/Wants: Rarely/Never (1) Understanding Verbal Content: Sometimes Understands(2) Brief Interview-Mental Status: Yes Repetition of Three Words: One (1) Temporal Orientation: Year: Missed by more than 5 yrs (0) Temporal Orientation: Month: Missed by 6 days-1 month (1) Temporal Orientation: Day: Incorrect or No Answer(0) Recall : Wear to say "Sock": No, could not recall (0) Recall : Color: No, could not recall (0) Recall : Bed: No, could not recall (0) Memory/Recall Ability: That he or she is in a hsp/hsp unit Speech Short Term Goals Short Term Goals Short Term Goals 1) Patient will complete simple memory tasks at 75% with minimal cues. 2) Patient will complete simple problem solving tasks at 75% with minimal cues. 3) Patient will complete simple 1 step directions with 75% with minimal cues. Speech Fire Hydrant Mechanic Goals Fire Hydrant Mechanic Goals Patient will improve cognitive-communication tasks for improved safety and independence. Speech-Plan Patient/Family Goals Patient/Family Goals: Patient plans to return home with his as soon as he completes rehab. Treatment Plan Speech Therapy Treatment Plan: Continue Plan of Care Patient is recommended for skilled ST due to moderate deficits in memory, problem solving and decreased ability to follow directions. Treatment Duration: Sep 08, 2018 Frequency: 5 times per week Estimated Hrs Per Day: .5 hour per day Rehab Potential: Guarded Barriers to Learning: Cognitive-communication deficits. Pt/Family Agrees to Plan: Yes Safety Risks/Education Teaching Recipient: Patient Teaching Methods: Discussion Response to Teaching: Verbalize Understanding Education Topics Provided: Safety and utilization of the call light. Time Speech Therapy Time In: 15:00 Speech Therapy Time Out: 15:35 Total Billed Time: 30 Billed Treatment Time 1, SPSNDCOMPATRICK Almendarez Sep 08, 2018 16:00
[2018-09-08] MEDS ORDERED: TAMSULOSIN 0.4 MG (FLOMAX) CAP PO SCH (17:30)
[2018-09-08] MEDS: inSUlin ASPART (NovoLOG) 1 UNIT/0.01 ML (CHARGE PER UNIT) SC SCH ×2 (17:55→21:47)
[2018-09-08] MEDS: TAMSULOSIN 0.4 MG (FLOMAX) CAP PO SCH (18:15)
[2018-09-08] MEDS: SINEMET 10/100 (CARBIDOPA/LEVADOPA) TAB PO SCH (18:15)
[2018-09-08] MEDS ORDERED: APIXABAN 5 MG (ELIQUIS) TABLET PO SCH (21:00)
[2018-09-08] MEDS ORDERED: inSUlin DETERMIR 1 UNIT/0.01 ML (LEVEMIR) CHARGE PER UNIT SQ SCH (21:00)
[2018-09-08] MEDS ORDERED: meTOprolol SUCCINATE 100 MG (TOPROL XL) TAB PO SCH (21:00)
[2018-09-08] MEDS ORDERED: GABAPENTIN 300 MG (NEURONTIN) CAP PO SCH (21:00)
[2018-09-08] MEDS ORDERED: PHENYTOIN 100 MG (DILANTIN) CAP PO SCH (21:00)
[2018-09-08] MEDS: FISH OIL 1200 MG CAPSULE PO SCH (21:38)
[2018-09-08] MEDS: GABAPENTIN 300 MG (NEURONTIN) CAP PO SCH (21:39)
[2018-09-08] MEDS: PHENYTOIN 100 MG (DILANTIN) CAP PO SCH (21:40)
[2018-09-08] MEDS: DOCUSATE SODIUM 100 MG (COLACE) CAP PO SCH (21:40)
[2018-09-08] MEDS: meTOprolol SUCCINATE 100 MG (TOPROL XL) TAB PO SCH (21:41)
[2018-09-08] MEDS: APIXABAN 5 MG (ELIQUIS) TABLET PO SCH (21:41)
[2018-09-09 05:49] VITALS: BP 130/71
[2018-09-09] MEDS: inSUlin ASPART (NovoLOG) 1 UNIT/0.01 ML (CHARGE PER UNIT) SC SCH ×4 (06:00→20:48)
[2018-09-09] MEDS ORDERED: GLIPIZIDE PO SCH (06:30)
[2018-09-09] MEDS: glipiZIDE 5 MG (GLUCOTROL) TAB PO SCH (06:52)
[2018-09-09] MEDS: MULTIVIT W/MINERALS TAB (THERAGRAN M) PO SCH (06:53)
[2018-09-09] MEDS: SINEMET 10/100 (CARBIDOPA/LEVADOPA) TAB PO SCH (06:53)
--- NOTE | 2018-09-09 07:43 | Progress Note (SOAP) ---
Subjective Time Seen by a Provider: 07:40 Subjective/Events-last exam Patient more alert today. Yesterday patient was able to have a conversation with son Increased the dose of Sinemet. Patient eating good. Patient to see urologist today. Objective Exam Vital Signs Date Time Temp Pulse Resp B/P (MAP) Pulse Ox O2 Delivery O2 Flow Rate FiO2 09/09/18 05:49 99.5 62 20 130/71 (90) 96 Room Air 09/08/18 21:00 Room Air 09/08/18 12:15 98.7 86 20 134/78 (96) 97 Room Air 09/08/18 11:30 Room Air I & O 09/09/18 07:00 Intake Total 1190 ml Output Total 2350 ml Balance -1160 ml Capillary Refill : General Appearance: No Apparent Distress, WD/WN HEENT: Normal ENT Inspection Neck: Normal Inspection Respiratory: No Accessory Muscle Use, No Respiratory Distress Cardiovascular: Regular Rate, Rhythm, No Murmur Gastrointestinal: non tender, soft Results Lab Laboratory Tests 09/08/18 17:50: Glucometer 411*H 09/08/18 21:37: Glucometer 377H 09/09/18 05:41: Glucometer 167H Assessment/Plan Assessment/Plan Assess & Plan/Chief Complaint Debility. Parkinson disease. Dementia. Mental status change improving. Diabetes. Increased the dose of Sinemet Clinical Quality Measures DVT/VTE Risk/Contraindication: Risk Factor Score Per Nursin RFS Level Per Nursing on Admit: 4+=Very High DENIZ KENT DO Sep 09, 2018 07:42
--- NOTE | 2018-09-09 08:21 | Cardiology Progress Note ---
Subjective Date Seen by Provider: Sep 09, 2018 Time Seen by Provider: 08:10 Subjective/Events-last exam No new complaints. Appears less confused today. Denies any chest pain or dyspnea. Review of Systems General: No Chills, No Night Sweats; Fatigue HEENT: No Visual Changes, No Dysphasia Pulmonary: No Dyspnea, No Cough Cardiovascular: No: Chest Pain, Palpitations, Paroxysmal Noc. Dyspnea, Edema Gastrointestinal: No: Nausea, Vomiting, Abdominal Pain Genitourinary: No Dysuria, No Frequency Musculoskeletal: No: neck pain, back pain Neurological: Weakness, Confusion; No: Numbness, Change in speech Objective-Cardiology Exam Last Set of Vital Signs Vital Signs 09/09/18 05:49 Temp 99.5 Pulse 62 Resp 20 B/P (MAP) 130/71 (90) Pulse Ox 96 O2 Delivery Room Air Capillary Refill : I&O Intake and Output 09/09/18 00:00 Intake Total 950 ml Output Total 1800 ml Balance -850 ml Intake Oral 950 ml Output Urine Total 1800 ml Daily Weight Change Yes, 2-13 lbs General: Alert, Cooperative, No Acute Distress HEENT: Atraumatic, PERRLA, EOMI, Mucous Memb Moist/[place] Neck: Supple, No JVD Lungs: Clear to Auscultation Heart: Regular Rate Abdomen: Normal Bowel Sounds, Soft, No Tenderness Extremities: No Edema, Other (Indwelling Patel catheter to DD) Neuro: Other (Impaired strength Left leg Impaired balance Mild dementia with memory loss) A/P-Cardiology Admission Diagnosis Generalized weakness PAF CAD HTN Assessment/Plan Generalized weakness and confusion, progressing, probably advanced dementia, it was suspicious of intracranial bleed on CT scan, MRI was done showing no active bleeding, generalized atrophy was noted. Recommend continuing with physical therapy Change in mental status, had previous hospitalization and evaluation in the ER for change in mental status in the past, workup at that time was negative. Continue with physical therapy Sick sinus syndrome, history of episodes of bradycardia with complete heart block, frequent PVCs, ventricular bigeminy and ventricular couplets, short PAT' s. Status post permanent pacemaker implantation April 2015, using a [employer] device Advisa DR GONZALEZ, good sensing and capture. Continue to monitor History of nonsustained ventricular tachycardia, noted on interrogation on July 02, 2016, has been maintained on amiodarone 200 mg daily. Continue to monitor Paroxysmal atrial fibrillation, maintained on Eliquis. Continue to monitor [id number] score of 6, high risk, yearly risk of stroke without OAC is 9.8%. Maintained on Eliquis, continue to monitor Coronary artery disease, multiple interventions in the past, most recent cardiac catheterization done March 14, 2015 revealed extensive coronary artery disease, heavily calcified system, with 40 percent distal left main coronary artery stenosis. 3 stents in LAD proximally with 50-60 percent in-stent restenosis. Distal LAD had 95 percent stenosis followed by 80 percent stenosis long segment, very small artery not amendable to intervention. Total occlusion of the first obtuse marginal branch filled by collaterals. Patent stent in the proximal mid second OM branch with moderate disease in the distal proper circumflex artery. Patent stent in the RCA with 50 percent proximal right coronary artery stenosis and 50-60 distal right coronary artery stenosis. Asymptomatic, continue to monitor Stress test in July 2016 showed fixed defect involving the whole inferior wall and inferoapical segment with dilated left ventricle, inferior wall hypokinesia, Ejection fraction 54 percent. Echocardiogram showed ejection fraction 60 percent, dilated left atrium, mild to moderate mitral regurgitation and pulmonary artery pressure of 35 mmHg. continue to monitor Hypertension, controlled, continue to monitor Hyperlipidemia, I will hold statin due to generalized weakness and monitor his response History of CVA in 2010, mild residual right sided weakness, episodes of confusion occurred over the last year where patient became confused and drove over once to [place] and once to [place]. It was felt that it was a global ischemic attack with confusion, workup at that time was negative. He was seen by Dr. Jiménez and started on Dilantin, the dose was increased by Dr. Damon, followed and managed by primary care physician Diabetes mellitus, followed and managed by primary care physician Carotid stenosis, Seen and followed by Dr Simmons, continue to monitor Ex-Tobaccoism, patient smokes pipe, he stopped smoking in October, encouraged to continue with smoking cessation Peripheral neuropathy, maintained on gabapentin. Continue on current medication , continue to monitor Sleep apnea, severe on sleep study in October 2015, does not use his machine. Clinical Quality Measures DVT/VTE Risk/Contraindication: Risk Factor Score Per Nursin RFS Level Per Nursing on Admit: 4+=Very High JOSELUIS CLINTON Sep 09, 2018 08:21
[2018-09-09] MEDS: APIXABAN 5 MG (ELIQUIS) TABLET PO SCH ×2 (08:42→20:48)
[2018-09-09] MEDS: GABAPENTIN 300 MG (NEURONTIN) CAP PO SCH ×2 (08:42→20:48)
[2018-09-09] MEDS: DOCUSATE SODIUM 100 MG (COLACE) CAP PO SCH ×2 (08:42→20:49)
[2018-09-09] MEDS: AMIODARONE 200 MG (CORDARONE) TAB PO SCH (08:42)
[2018-09-09] MEDS: amLODIPine 10 MG (NORVASC) TAB PO SCH (08:42)
[2018-09-09] MEDS: FISH OIL 1200 MG CAPSULE PO SCH ×2 (08:59→20:50)
[2018-09-09] MEDS: QUINAPRIL 40 MG PO SCH (08:59)
[2018-09-09] MEDS ORDERED: AMIODARONE 200 MG (CORDARONE) TAB PO SCH (09:00)
[2018-09-09] MEDS ORDERED: amLODIPine 10 MG (NORVASC) TAB PO SCH (09:00)
--- NOTE | 2018-09-09 09:51 | Physical Therapy Daily Note ---
PT Daily Note-Current Subjective Patient in bed pre tx, agrees to PT, will be co-treating with OT this morning. No complaints of pain. Appearance Patient in recliner post tx with nurse call, phone, tray, all needs met. Mental Status Patient Orientation: Person, Confused Attachments: Patel Catheter Transfers Functional [place] Measure 0=Not Assessed/NA 4=Minimal Assistance 1=Total Assistance 5=Supervision or Setup 2=Maximal Assistance 6=Modified [place] 3=Moderate Assistance 7=Complete [place] IRFPAI Quality Coding Scale 6 Independent with activity with or without an assistive device 5 Patient requires set up or clean up by helper. Patient completes activity by themselves 4 Supervision or touching assist (CGA). [place] provide cues , steadying assist 3 The helper provides less than half the effort to complete the activity 2 The helper provides more than half the effort to complete the activity 1 Dependent. The helper does all the effort to complete an activity 7 Patient refused to complete or attempt activity 9 The patient did not perform the activity before the current illness or injury 88 Not attempted due to Medical conditions or safety concerns Transfers (B, C, W/C) (FIM): 3 Scootin Rollin Supine to/from Sit: 4 Sit to/from Stand: 3 Bed to/from Chair: 3 Patient had improved bed mobility, requiring only min assist and has improved with stand pivot transfer, especially to the left side but is still mod assist. Weight Bearing Right Lower Extremity: Right Full Weight Bearing Left Lower Extremity: Left Full Weight Bearing Gait Training Gait (FIM): 1 Distance: 5', 10' Gait Level of Assist: 3 Gait Persons Needed: 2 Gait Assistive Device: FWW Attempted ambulation with a hemiwalker but patient keeps trying to use both hands on it so tried a rolling walker and he was able to ambulate about 30'. Patient ambulates slowly and needs assist to help guide walker and cues to stay close to walker. Exercises Seated Therapy Exercises: Long arc quads, Hip abd/add (with RTB and pillow) Seated Reps: 20 Neuromuscular standing in the parallel bars reaching for another therapists hand Treatments bed mobility and transfers, ambulation, reaching/balance activity, LE exercises , bathing and dressing Assessment Current Status: Fair Progress improved transfers and patient was able to ambulate using a rolling walker this morning PT Short Term Goals Short Term Goals Time Frame: Sep 15, 2018 Transfers (B,C,W/C) (FIM): 4 Gait (FIM): 1 Gait Distance Comment: 20' Gait Level of Assist: 3 Gait Assistive Device: Walker Cristian Wheelchair Distance: 20' PT Jail Goals Jail Goals PT Jail Goals Time Frame: Sep 29, 2018 Transfers (B,C,W/C) (FIM): 4 Sit to Lying (QC): 4 Lying-Sitting on Side/Bed(QC): 4 Sit to Stand (QC): 4 Rollin Roll Left to Right (QC): 4 Chair/Ctc-ae-Lowmy Xfer(QC): 4 Car Transfer (QC): 4 Does the Patient Walk: Yes Gait (FIM): 2 Gait distance (FIM): 1=up to 49 ft Distance: 50' Walk 10 feet (QC): 3 Walk 10ft-Uneven Surface(QC): 3 Walk 50ft with 2 Turns (QC): 3 Walk 150 ft (QC): 0 Gait Level of Assist: 4 Gait Assistive Device: Walker Cristian Does the Pt use WC or Scooter?: Yes Wheelchair (FIM): 2 Wheelchair distance (FIM): 1=up to 49 ft Distance: 50 Wheelchair Level of Assist: 4 Wheel 50 feet with 2 turns (QC: 4 Stairs (FIM): 1 # of Steps: 1 1 Step (curb) (QC): 3 4 Steps (QC): 0 12 Steps (QC): 0 Stairs Level Of Assist: 4 Picking up an Object (QC): 0 PT Plan Problem List Problem List: Activity Tolerance, Functional Strength, Safety, Balance, Gait, Transfer, Bed Mobility, ROM Treatment/Plan Treatment Plan: Continue Plan of Care Treatment Plan: Bed Mobility, Concurrent Therapy, Education, Functional Activity Navya, Functional Strength, Group Therapy, Gait, Safety, Therapeutic Exercise, Transfers Treatment Duration: Sep 29, 2018 Frequency: At least 5 of 7 days/Wk (IRF) Estimated Hrs Per Day: 1.5 hours per day Patient and/or Family Agrees t: Yes Safety Risks/Education Patient Education: Gait Training, Transfer Techniques, Correct Positioning, Safety Issues Teaching Recipient: Patient Teaching Methods: Demonstration, Discussion Response to Teaching: Reinforcement Needed Time/GCodes Time In: 0830 Time Out: 0945 Total Billed Treatment Time: 75 Total Billed Treatment 1 visit GT 15' EX 15' FA 45' PT worked on bed mobility, ambulation, transfers and positioning during bathing and dressing, OT worked on bathing, dressing, UE exercises and positioning during mobility activities FABRICIO ALFONSO PT Sep 09, 2018 09:51
--- NOTE | 2018-09-09 10:37 | Speech Therapy Daily Note ---
Speech Daily Progress Note Subjective Date Seen by Provider: Sep 09, 2018 Time Seen by Provider: 00:30 Patient was sitting in his recliner resting. He required frequent prompts to stay awake and participate in therapy session. Objective Patient completed simple memory tasks in q/a format with 30% accuracy given 75% verbal cues and/or repetitions. Treatment Plan Continue Plan of Care Communication Comprehension: 2 Expression: 2 Social Cognition Social Interaction: 3 Problem Solvin Memory: 3 Speech Short Term Goals Short Term Goals Short Term Goals 1) Patient will complete simple memory tasks at 75% with minimal cues. 2) Patient will complete simple problem solving tasks at 75% with minimal cues. 3) Patient will complete simple 1 step directions with 75% with minimal cues. Speech Residential Goals Chief Deputy Court Clerk Goals Patient will improve cognitive-communication tasks for improved safety and independence. Speech-Plan Patient/Family Goals Patient/Family Goals: Patient plans to return home with his post rehab. Treatment Plan Speech Therapy Treatment Plan: Continue Plan of Care Patient frequently falls asleep during activities, requiring verbal prompts to wake up and engage in activities. Treatment Duration: Sep 08, 2018 Frequency: 5 times per week Estimated Hrs Per Day: .5 hour per day Rehab Potential: Guarded Barriers to Learning: Patient falls asleep very easily. Pt/Family Agrees to Plan: Yes Safety Risks/Education Teaching Recipient: Patient Teaching Methods: Discussion Response to Teaching: Verbalize Understanding Education Topics Provided: Safety within his room and utilization of the call light. Time Speech Therapy Time In: 10:00 Speech Therapy Time Out: 10:30 Total Billed Time: 30 Billed Treatment Time 1[address] Sep 09, 2018 10:37
--- NOTE | 2018-09-09 10:45 | Occupational Ther Daily Note ---
OT Current Status-Daily Note Subjective No pain reported. Appearance Pt. in bed with HOB elevated. Tray in front with most of food eaten. Pt. states that he is done eating. Mental Status/Objective Patient Orientation: Unable to Assess Functional [place] Measure 0=Not Assessed/NA 4=Minimal Assistance 1=Total Assistance 5=Supervision or Setup 2=Maximal Assistance 6=Modified [place] 3=Moderate Assistance 7=Complete [place] ADL-Treatment Functional [place] Measure 0=Not Assessed/NA 4=Minimal Assistance 1=Total Assistance 5=Supervision or Setup 2=Maximal Assistance 6=Modified [place] 3=Moderate Assistance 7=Complete [place] IRFPAI Quality Coding Scale 6 Independent with activity with or without an assistive device 5 Patient requires set up or clean up by helper. Patient completes activity by themselves 4 Supervision or touching assist (CGA). [place] provide cues , steadying assist 3 The helper provides less than half the effort to complete the activity 2 The helper provides more than half the effort to complete the activity 1 Dependent. The helper does all the effort to complete an activity 7 Patient refused to complete or attempt activity 9 The patient did not perform the activity before the current illness or injury 88 Not attempted due to Medical conditions or safety concerns Grooming (FIM): 5 (Set up to comb hair after shower.) Bathing (FIM): 2 (Please see note.) Shower/Bathe Self (QC): 2 Upper Body (FIM): 4 Upper Body Dressing (QC): 4 Lower Body Dressing (FIM): 2 Lower Body Dressing (QC): 2 On/Off Footwear (QC): 2 Transfers (B, C, W/C) (FIM): 1 (Please see note.) Shower Transfer(FIM): 1 Pt. agrees to shower this morning. OT/PT co-treated due to pt's need for max skilled intervention. PT focused on transfer training, LE mobility, and strength while OT addressed ADL goals. Pt. transferred supine-sit with max assist, and then stood with max assist and pivoted to shower chair with max x 2. Pt. taken to roll in shower. Stood at grab bar with max assist while OT doffed pants over hips. Pt. unable to let go of bar to do this himself. Pt. sat back down but unable to process in that space how to doff pants over feet, or socks. OT did this for him. Pt. was able to doff shirt. Pt. was given water hand held and would spray self, but would only spray one part. Pt. was given max cues to spray all parts, but could not do it. OT did this for him. Pt. was given a washcloth with soap. Encouraged to wash chest and arms. Pt. "dabbed" at chest, and then washed face. Pt. had soap in eyes but did not seem to understand how to spray off face. OT did this for him. Pt. was encouraged again to wash chest, but pt. washed face again, as though he had forgot that he had already done this. OT finished assisting him to wash. Assisted him to dress as well, as pt. only able to assist with his shirt while seated on shower chair. Pt. taken to therapy room. Attempted to walk with jone cane for weight shifting. Please see PT note. This did not work for him and seemed to be too overwhelming. Pt. utilized a FWW and was able to ambulate much better. Ambulated with mod assist x 2 for weight shift and upright posture. Please see PT note for distance. Pt. was encouraged to look upright, but often would look down at floor. Took rest break and went to therapy gym. Worked on standing in parallel bars for standing endurance while OT facilitated reaching and UE stretch/ROM. Pt. seems to fatigue but states that he is not tired. Pt. is taken back to room and transferred to reclining chair in room with max x 2. All needs are met. Education OT Patient Education: Correct positioning, Exercise program, Modified ADL techniques, Progress toward Goal/Update tx plan, Purpose of tx/functional activities, Reviewed precautions, Rehab process, Transfer techniques Teaching Recipient: Patient Teaching Methods: Demonstration, Discussion Response to Teaching: Reinforcement Needed OT Short Term Goals Short Term Goals Time Frame: Sep 15, 2018 Grooming(FIM): 5 Transfers (B,C,W/C) (FIM): 4 Toilet/Commode Transfer(FIM): 4 1=Demonstrate adherence to instructed precautions during ADL tasks. 2=Patient will verbalize/demonstrate understanding of assistive devices/ modifications for ADL. 3=Patient will improve strength/tolerance for activity to enable patient to perform ADL's. OT Respiratory Therapist Assistant Goals Intermediate Goals Time Frame: Sep 29, 2018 Eating (FIM): 6 Eating (QC): 6 Groomin Oral Hygiene (QC): 5 Bathing(FIM): 5 Shower/Bathe Self (QC): 5 Upper Body Dressing(FIM): 6 Upper Body Dressing (QC): 6 Lower Body Dressing(FIM): 6 Lower Body Dressing (QC): 6 On/Off Footwear (QC): 6 Toileting(FIM): 6 Toileting Hygiene (QC): 6 Toilet/Commode Transfer(FIM): 6 Toilet/Commode Transfer (QC): 6 Shower Transfer(FIM): 5 Additional Goals: 1-Demonstrate ADL Tasks, 2-Verbalize Understanding, 3- ImproveStrength/Navya 1=Demonstrate adherence to instructed precautions during ADL tasks. 2=Patient will verbalize/demonstrate understanding of assistive devices/ modifications for ADL. 3=Patient will improve strength/tolerance for activity to enable patient to perform ADL's. OT Education/Plan Problem List/Assessment Assessment: Decreased Activ Tolerance, Decreased UE Strength, Dependent Transfers, Impaired Bed Mobility, Impaired Cognition, Impaired Coordination, Impaired Funct Balance, Impaired I ADL's, Impaired Self-Care Skills, Restricted Funct UE ROM Pt would benefit from skilled OT to increase his independence in basic self care Discharge Recommendations Plan/Recommendations: Continue POC Treatment Plan/Plan of Care Treatment,Training & Education: Yes Patient would benefit from OT for education, treatment and training to promote independence in ADL's, mobility, safety and/or upper extremity function for ADL' s. Plan of Care: ADL Retraining, Caregiver Training, Functional Mobility, Group Exercise/Act as Ind (education, exercise, socialization, funct activities, communication), UE Funct Exercise/Act, UE Neuromus Re-Ed/Coord, Visual/ Perceptual Retrain Treatment Duration: Sep 29, 2018 Frequency: At least 5 of 7 days/Wk (IRF) Estimated Hrs Per Day: 1.5 hours per day (1.25 to 1.5) Agreement: Yes Rehab Potential: Guarded Time/GCodes Start Time: 08:30 Stop Time: 09:45 Total Time Billed (hr/min): 75 Billed Treatment Time 1, ADL x 45minutes, FA x 30minutes MILAD SIMON OT Sep 09, 2018 10:45
[2018-09-09] MEDS ORDERED: MILK OF MAGNESIA 400 MG/5 ML 30 ML UDC PO PRN (11:00)
[2018-09-09] MEDS ORDERED: MILK OF MAGNESIA 400 MG/5 ML 30 ML UDC ONE (11:06)
[2018-09-09] MEDS ORDERED: MILK OF MAGNESIA 400 MG/5 ML 30 ML UDC PO NR (11:08)
[2018-09-09] MEDS: SINEMET 25/100 (CARBIDOPA/LEVODOPA) TAB PO SCH ×2 (11:11→17:16)
[2018-09-09] MEDS ORDERED: BETHANECHOL 10 MG (URECHOLINE) TAB ONE (11:38)
[2018-09-09] MEDS: BETHANECHOL 10 MG (URECHOLINE) TAB PO SCH ×3 (11:52→20:49)
--- NOTE | 2018-09-09 15:38 | PM & R (SOAP) Progress Note ---
Subjective This was a face to face visit with the patient. Date Seen by Provider: Sep 09, 2018 Time Seen by Provider: 07:40 Subjective/Events-last exam Patient was seen in his room this AM Patient Mod assist for transfers.Patient adjusting well to unit.Accuchek quite high earlier and Insulin adjusted Bowel prep adjusted for constipation Date Identified: Sep 09, 2018 Time Identified: 08:00 Medication Intervention: Meds adjusted for constipation and poorly controlled DM Review of Systems Neurological: Other (memory impairment) Objective Physician Exam Last Set of Vital Signs Vital Signs Date Time Temp Pulse Resp B/P (MAP) Pulse Ox O2 Delivery O2 Flow Rate FiO2 09/09/18 10:00 Room Air 09/09/18 05:49 99.5 62 20 130/71 (90) 96 Capillary Refill : I&O Intake and Output 09/09/18 00:00 Intake Total 950 ml Output Total 1800 ml Balance -850 ml Intake Oral 950 ml Output Urine Total 1800 ml Daily Weight Change Yes, 2-13 lbs General: Alert, Cooperative, No Acute Distress HEENT: Atraumatic, PERRLA, EOMI, Mucous Memb Moist/[place] Neck: Supple, No JVD Lungs: Clear to Auscultation Heart: Regular Rate Abdomen: Normal Bowel Sounds, Soft, No Tenderness Extremities: No Edema, Other (Indwelling Patel catheter to DD) Neuro: Other (Impaired strength Left leg Impaired balance Mild dementia with memory loss) Results Lab Data Laboratory Tests 09/08/18 17:50: Glucometer 411*H 09/08/18 21:37: Glucometer 377H 09/09/18 05:41: Glucometer 167H 09/09/18 10:50: Glucometer 274H Assessment/Plan Assessment and Plan Nasra Isabel on Sinemet Dementia DM poorly controlled CAD Constipation Urinary incontinence PAF on Eliquis HX of nonsustained V Tach noted 2016 on Amiodarone Cardiology following SSS s/p pacemaker 2014 Plan Continue PT/OTST Monitor Accucheks and adjust Insulin as needed F/U with DR Damon PCP and Cardiology prn Adjust Bowel program for constipation as needed Co-Morbidities that are continuing to impact the rehab process: (include details ) YOVANY DANIELS MD Sep 09, 2018 15:38
[2018-09-09] MEDS: TAMSULOSIN 0.4 MG (FLOMAX) CAP PO SCH (17:16)
[2018-09-09 18:10] VITALS: BP 145/64
--- NOTE | 2018-09-09 20:38 | Individualized Plan of Care ---
Individualized Plan of Care Rehab Nursing IPOC Order Admission Date Sep 08, 2018 at 10:18 Current Orders Orders Pt Evaluate/Treat Request (09/08/18 09:50) Request Ot Evaluate & Treat (09/08/18 09:50) Request For Cognitive Services (09/08/18 09:50) Admission Arrival Bed Request (09/08/18 10:18) Code/Resuscitation (09/08/18 12:01) Accucheck Achs ACHS (09/08/18 12:01) Ambulate 08,12,20 (09/08/18 12:01) Initiate Admission Nursing Pro .admission (09/08/18 12:01) Sequential Compression Device (09/08/18 12:01) Cho 60g/M 1snack (16-2000 Sigifredo) (09/08/18 Lunch) (Nf) Fish Oil/Dha/Epa (Fish Oil 1,200 Mg (09/08/18 21:00) (Nf) Glipizide (09/09/18 06:30) (Nf) Quinapril Hcl (09/09/18 09:00) Amiodarone Tablet (Cordarone Tablet) (09/09/18 09:00) Apixaban Tablet (Eliquis Tablet) (09/08/18 21:00) Carbidopa/Levadopa 10/100 (Sinemet 10/10 (09/08/18 17:00) Gabapentin Capsule/Tablet (Neurontin Cap (09/08/18 21:00) Pantoprazole Tablet (Protonix Tablet) (09/08/18 12:15) Patient May Use Own Meds, All (Patient M (09/08/18 12:15) Phenytoin Capsule (Dilantin Capsule) (09/08/18 21:00) Tamsulosin Capsule (Flomax Capsule) (09/08/18 17:30) Therapeutic Multivitamin Tab (Vitamins, (09/09/18 07:00) Amlodipine Tablet (Norvasc Tablet) (09/09/18 09:00) Insulin Aspart (Novolog) (Novolog (Charg (09/08/18 16:00) Metoprolol Succinate (Xl) Tab (Toprol Xl (09/08/18 21:00) Occupational Therapy Order (09/08/18 12:01) Physical Therapy [place]der (09/08/18 12:01) Speech Therapy Orders (09/08/18 12:01) Condition Code 44 (09/08/18 12:01) Tamsulosin Capsule (Flomax Capsule) (09/08/18 17:30) Phenytoin Capsule (Dilantin Capsule) (09/08/18 21:00) Glipizide Tablet (Glucotrol Tablet) (09/09/18 06:30) Metoprolol Succinate (Xl) Tab (Toprol Xl (09/08/18 21:00) Gabapentin Capsule/Tablet (Neurontin Cap (09/08/18 21:00) Amiodarone Tablet (Cordarone Tablet) (09/09/18 09:00) Amlodipine Tablet (Norvasc Tablet) (09/09/18 09:00) Apixaban Tablet (Eliquis Tablet) (09/08/18 21:00) Consult Urology (09/08/18 12:43) Consult Cardiology (09/08/18 12:43) Admission Order(Inpt,Obs,Sdc) (09/08/18 12:43) Patient Visit (09/08/18 ) Pt Eval Moderate Complexity (09/08/18 ) Gait Training, Ea 15 Min (09/08/18 ) Functional Activities, Ea 15 (09/08/18 ) Patient Visit (09/08/18 ) Exercise Therap, Ea 15 Min (09/08/18 ) Patient Visit (09/08/18 ) Speech Sound Lang Comp (09/08/18 ) Docusate Sodium Capsule (Colace Capsule) (09/08/18 21:00) Insulin Determir (Per Unit) (Levemir (Pe (09/08/18 21:00) Nursing Communication (Order) (09/08/18 18:40) Request Ot Evaluate & Treat (09/08/18 19:53) Request For Dysphagia Services (09/08/18 19:53) Ambulate 08,12,20 (09/08/18 20:16) Sequential Compression Device 08,20 (09/08/18 20:16) Dvt/Vte Risk - Notifiy Physici 08 (09/08/18 20:16) Insulin Determir (Per Unit) (Levemir (Pe (09/09/18 21:00) Carbidopa/Levodopa 25/100 (Sinemet 25/10 (09/09/18 12:00) Functional Activities, Ea 15 (09/08/18 ) Patient Visit (09/09/18 ) Treat. Speech/Lang/Voice (09/09/18 ) Magnesium Hydroxide Oral Susp (Mom Oral (09/09/18 11:08) Magnesium Hydroxide Oral Susp (Mom Oral (09/09/18 11:00) Automatic Tray (09/09/18 11:04) Magnesium Hydroxide Oral Susp (Mom Oral (09/09/18 11:06) Bethanechol Tablet (Urecholine Tablet) (09/09/18 11:00) Bethanechol Tablet (Urecholine Tablet) (09/09/18 11:38) Patient Visit (09/09/18 ) Exercise Therap, Ea 15 Min (09/09/18 ) Gait Training, Ea 15 Min (09/09/18 ) Functional Activities, Ea 15 (09/09/18 ) Rehab Nursing Orders: Ongoing Assess. of Cognitive Status, Ongoing Assess. of Function Status, Disease Management & Educaiton, DVT Prophylaxis, Fall Prevention, Fluid/Electrolyte/Nutrition Mgmt, Infection Prevention, Medication Management & Education, Management of Risks & Complications, Management of Skin Intergrity, Nutrition Management, Pain Management, Patient/Family Support PT IPOC Problem List: Activity Tolerance, Functional Strength, Safety, Balance, Gait, Transfer, Bed Mobility, ROM Treatment Plan: Continue Plan of Care Bed Mobility, Concurrent Therapy, Education, Functional Activity Navya, Functional Strength, Group Therapy, Gait, Safety, Therapeutic Exercise, Transfers Treatment Duration: Sep 29, 2018 Frequency: At least 5 of 7 days/Wk (IRF) Estimated Hrs Per Day: 1.5 hours per day OT IPOC Problems: Decreased Activ Tolerance, Decreased UE Strength, Dependent Transfers , Impaired Bed Mobility, Impaired Cognition, Impaired Coordination, Impaired Funct Balance, Impaired I ADL's, Impaired Self-Care Skills, Restricted Funct UE ROM OT Treatment, Training and Edu: Yes OT Problems Pt would benefit from skilled OT to increase his independence in basic self care Plan of Care: ADL Retraining, Caregiver Training, Functional Mobility, Group Exercise/Act as Ind (education, exercise, socialization, funct activities, communication), UE Funct Exercise/Act, UE Neuromus Re-Ed/Coord, Visual/ Perceptual Retrain Treatment Duration: Sep 29, 2018 Frequency: At least 5 of 7 days/Wk (IRF) Estimated Hrs Per Day: 1.5 hours per day (1.25 to 1.5) [facility] Speech Therapy Treatment Plan: Continue Plan of Care Treatment Duration: Sep 08, 2018 Frequency: 5 times per week Estimated Hrs Per Day: .5 hour per day Outboard Motor Assembler/Case Mgmt Outboard Motor Assembler/Case Managemen: Discharge Planning, Patient/Family Counseling Dietitian/Peer Health Promoter Dietitian/Peer Health Promoter to monitor nutritional status and make changes and/or recommendations as needed and work with speech pathology on dietary upgrades as the occur. Physician IPOC Medical Issues being managed closely and that require the 24 hour availability of a physician: poorly controlled DM Newly diagnosed Park D started on Sinemet Dementia constipation CAD PAF on eliquis SSS s/p pacemaker HX of nonsustained V Tach maintained on Amiodarone Medical Issues: Bowel/Bladder Function, DVT Prophylaxis, Falls Precautions, Fluid/Electrolyte/Nutrition Balance, Infection Protection, Pain Management, Other (List) (as per above) Brief Synthesis of Preadmission Screen, Post-Admission Evaluation, and Therapy Evaluations: 77 yo male with newly diagnosed Park D started on Sinemet with PMH significant for DM and mild dementia and A FIB referred to IRU due to a decline in Function Lives with his spouse who helps out with his daily routine [facility] code 03.2 Etiologic DX Parkinsons D Medical Prognosis: Good Anticipated Length of Stay: 2 weeks Return to OF or better Anticipated d/c Destination: Home with spouse and [facility] YOVANY DANIELS MD Sep 09, 2018 20:38
[2018-09-09] MEDS: PHENYTOIN 100 MG (DILANTIN) CAP PO SCH (20:49)
[2018-09-09] MEDS: meTOprolol SUCCINATE 100 MG (TOPROL XL) TAB PO SCH (20:49)
[2018-09-09] MEDS ORDERED: inSUlin DETERMIR 1 UNIT/0.01 ML (LEVEMIR) CHARGE PER UNIT SQ SCH (21:00)
[2018-09-10] MEDS: MULTIVIT W/MINERALS TAB (THERAGRAN M) PO SCH (06:17)
[2018-09-10] MEDS: SINEMET 25/100 (CARBIDOPA/LEVODOPA) TAB PO SCH ×3 (06:17→16:34)
[2018-09-10] MEDS: BETHANECHOL 10 MG (URECHOLINE) TAB PO SCH ×3 (06:17→16:34)
[2018-09-10] MEDS: inSUlin ASPART (NovoLOG) 1 UNIT/0.01 ML (CHARGE PER UNIT) SC SCH ×4 (06:17→20:06)
[2018-09-10] MEDS: glipiZIDE 5 MG (GLUCOTROL) TAB PO SCH (06:17)
[2018-09-10 06:23] VITALS: BP 159/76
--- NOTE | 2018-09-10 07:51 | Progress Note (SOAP) ---
Subjective Time Seen by a Provider: 07:49 Subjective/Events-last exam Patient was able to walk to the bathroom with walker last night. Diabetes still little bit hard increase the dose of Levemir. Patient awake and talking better. Patient in the right direction Objective Exam Vital Signs Date Time Temp Pulse Resp B/P (MAP) Pulse Ox O2 Delivery O2 Flow Rate FiO2 09/10/18 06:23 99.4 66 20 159/76 (103) 95 Room Air 09/09/18 21:06 Room Air 09/09/18 18:10 97.9 60 19 145/64 (91) 95 Room Air 09/09/18 10:00 Room Air 09/09/18 08:30 Room Air I & O 09/10/18 07:00 Intake Total 670 ml Output Total 1350 ml Balance -680 ml Capillary Refill : General Appearance: No Apparent Distress, WD/WN HEENT: Normal ENT Inspection Respiratory: Lungs Clear, Normal Breath Sounds, No Accessory Muscle Use, No Respiratory Distress Cardiovascular: Regular Rate, Rhythm, No Murmur Results Lab Laboratory Tests 09/09/18 10:50: Glucometer 274H 09/09/18 16:17: Glucometer 310H 09/09/18 20:46: Glucometer 334H 09/10/18 05:55: Glucometer 195H Assessment/Plan Assessment/Plan Assess & Plan/Chief Complaint Debility. Parkinson disease. Dementia. Mental status change improving. Diabetes. Increased the dose of Sinemet. . 09/10/18. Debility better. Parkinson disease. Dementia. Mental status change improved. Diabetes sugars still little bit high. Cogwheel motion of right arm much less Clinical Quality Measures DVT/VTE Risk/Contraindication: Risk Factor Score Per Nursin RFS Level Per Nursing on Admit: 4+=Very High DENIZ KENT DO Sep 10, 2018 07:50
[2018-09-10] MEDS: DOCUSATE SODIUM 100 MG (COLACE) CAP PO SCH ×2 (07:54→20:06)
[2018-09-10] MEDS: QUINAPRIL 40 MG PO SCH (07:55)
[2018-09-10] MEDS: AMIODARONE 200 MG (CORDARONE) TAB PO SCH (07:55)
[2018-09-10] MEDS: amLODIPine 10 MG (NORVASC) TAB PO SCH (07:55)
[2018-09-10] MEDS: GABAPENTIN 300 MG (NEURONTIN) CAP PO SCH ×2 (07:55→20:06)
[2018-09-10] MEDS: APIXABAN 5 MG (ELIQUIS) TABLET PO SCH ×2 (07:55→20:06)
[2018-09-10] MEDS: FISH OIL 1200 MG CAPSULE PO SCH ×2 (07:56→20:07)
--- NOTE | 2018-09-10 08:09 | Cardiology Progress Note ---
Subjective Date Seen by Provider: Sep 10, 2018 Time Seen by Provider: 08:04 Subjective/Events-last exam Patient is in a chair, no new complaint, no palpitations Review of Systems General: No Chills, No Night Sweats, No Fatigue, No Malaise, No Appetite, No Other HEENT: No Head Aches, No Visual Changes, No Eye Pain, No Ear Pain, No Dysphasia , No Sinus Congestion, No Post Nasal Drip, No Sore Throat, No Other Pulmonary: No Dyspnea, No Cough, No Pleuritic Chest Pain, No Other Cardiovascular: No: Chest Pain, Palpitations, Orthopnea, Paroxysmal Noc. Dyspnea, Edema, Lt Headedness, Other Objective-Cardiology Exam Last Set of Vital Signs Vital Signs 09/10/18 06:23 Temp 99.4 Pulse 66 Resp 20 B/P (MAP) 159/76 (103) Pulse Ox 95 O2 Delivery Room Air Capillary Refill : I&O Intake and Output 09/10/18 00:00 Intake Total 560 ml Output Total 1300 ml Balance -740 ml Intake Oral 560 ml Output Urine Total 1300 ml General: Alert, Cooperative, No Acute Distress HEENT: Atraumatic, PERRLA, EOMI, Mucous Memb Moist/[place] Neck: Supple, No JVD Lungs: Clear to Auscultation Heart: Regular Rate, Normal S1, Normal S2 Abdomen: Normal Bowel Sounds, Soft, No Tenderness Extremities: No Cyanosis, No Edema, Other (Indwelling Patel catheter to DD) Skin: No Rashes Neuro: Normal Speech, Other (Impaired strength Left leg Impaired balance Mild dementia with memory loss) Results Lab Laboratory Tests Test 09/09/18 10:50 09/09/18 16:17 09/09/18 20:46 09/10/18 05:55 Range/Units Glucometer 274 H 310 H 334 H 195 H 70-110 MG/DL A/P-Cardiology Admission Diagnosis Generalized weakness PAF CAD HTN Assessment/Plan Generalized weakness and confusion, progressing, probably advanced dementia, it was suspicious of intracranial bleed on CT scan, MRI was done showing no active bleeding, generalized atrophy was noted. Recommend continuing with physical therapy Change in mental status, had previous hospitalization and evaluation in the ER for change in mental status in the past, workup at that time was negative. Continue with physical therapy Parkinson, started on Sinemet, followed by primary team Sick sinus syndrome, history of episodes of bradycardia with complete heart block, frequent PVCs, ventricular bigeminy and ventricular couplets, short PAT' s. Status post permanent pacemaker implantation April 2015, using a [employer] device Advisa DR GONZALEZ, good sensing and capture. Continue to monitor History of nonsustained ventricular tachycardia, noted on interrogation on July 02, 2016, has been maintained on amiodarone 200 mg daily. Continue to monitor Paroxysmal atrial fibrillation, maintained on Eliquis. Continue to monitor [id number] score of 6, high risk, yearly risk of stroke without OAC is 9.8%. Maintained on Eliquis, continue to monitor Coronary artery disease, multiple interventions in the past, most recent cardiac catheterization done March 14, 2015 revealed extensive coronary artery disease, heavily calcified system, with 40 percent distal left main coronary artery stenosis. 3 stents in LAD proximally with 50-60 percent in-stent restenosis. Distal LAD had 95 percent stenosis followed by 80 percent stenosis long segment, very small artery not amendable to intervention. Total occlusion of the first obtuse marginal branch filled by collaterals. Patent stent in the proximal mid second OM branch with moderate disease in the distal proper circumflex artery. Patent stent in the RCA with 50 percent proximal right coronary artery stenosis and 50-60 distal right coronary artery stenosis. Asymptomatic, continue to monitor Stress test in July 2016 showed fixed defect involving the whole inferior wall and inferoapical segment with dilated left ventricle, inferior wall hypokinesia, Ejection fraction 54 percent. Echocardiogram showed ejection fraction 60 percent, dilated left atrium, mild to moderate mitral regurgitation and pulmonary artery pressure of 35 mmHg. continue to monitor Hypertension, controlled, continue to monitor Hyperlipidemia, I will hold statin due to generalized weakness and monitor his response History of CVA in 2010, mild residual right sided weakness, episodes of confusion occurred over the last year where patient became confused and drove over once to [place] and once to [place]. It was felt that it was a global ischemic attack with confusion, workup at that time was negative. He was seen by Dr. Jiménez and started on Dilantin, the dose was increased by Dr. Damon, followed and managed by primary care physician Diabetes mellitus, followed and managed by primary care physician Carotid stenosis, Seen and followed by Dr Simmons, continue to monitor Ex-Tobaccoism, patient smokes pipe, he stopped smoking in October, encouraged to continue with smoking cessation Peripheral neuropathy, maintained on gabapentin. Continue on current medication , continue to monitor Sleep apnea, severe on sleep study in October 2015, does not use his machine. Clinical Quality Measures DVT/VTE Risk/Contraindication: Risk Factor Score Per Nursin RFS Level Per Nursing on Admit: 4+=Very High SEBASTIÁN VALLE MD Sep 10, 2018 08:09
--- NOTE | 2018-09-10 09:07 | PM & R (SOAP) Progress Note ---
Subjective This was a face to face visit with the patient. Date Seen by Provider: Sep 10, 2018 Time Seen by Provider: 07:50 Subjective/Events-last exam Patient was seen in his room this AM Patient Ambulates with short shuffling steps with assistance of therapy and walker.Patient mod assist for transfers Review of Systems Neurological: Weakness, Incoordination Objective Physician Exam Last Set of Vital Signs Vital Signs Date Time Temp Pulse Resp B/P (MAP) Pulse Ox O2 Delivery O2 Flow Rate FiO2 09/10/18 06:23 99.4 66 20 159/76 (103) 95 Room Air Capillary Refill : I&O Intake and Output 09/09/18 23:59 Intake Total 560 ml Output Total 1300 ml Balance -740 ml Intake Oral 560 ml Output Urine Total 1300 ml General: Alert, Cooperative, No Acute Distress HEENT: Atraumatic, PERRLA, EOMI, Mucous Memb Moist/[place] Neck: Supple, No JVD Lungs: Clear to Auscultation Heart: Regular Rate, Normal S1, Normal S2 Abdomen: Normal Bowel Sounds, Soft, No Tenderness Extremities: No Cyanosis, No Edema, Other (Indwelling Patel catheter to DD) Skin: No Rashes Neuro: Normal Speech, Other (Impaired strength Left leg Impaired balance Mild dementia with memory loss) Results Lab Data Laboratory Tests 09/08/18 17:50: Glucometer 411*H 09/08/18 21:37: Glucometer 377H 09/09/18 05:41: Glucometer 167H 09/09/18 10:50: Glucometer 274H 09/09/18 16:17: Glucometer 310H 09/09/18 20:46: Glucometer 334H 09/10/18 05:55: Glucometer 195H Assessment/Plan Assessment and Plan Nasra Isabel on Sinemet dementia DM better controlled CAD Constipation Urinary incontinence PAF on Eliquis Hx of nonsustained V Tach noted 2016 maintained on Amiodarone SSS s/p pacemaker Plan Continue PT/OT Team Conference next week Adjust Sinemet dose as needed F/U with PCP and cardiology Co-Morbidities that are continuing to impact the rehab process: (include details ) YOVANY DANIELS MD Sep 10, 2018 09:07
--- NOTE | 2018-09-10 09:14 | Progress Note-Urology ---
Progress Note-Urology Progress Notes/Assess & Plan Progress/Assessment & Plan TOV TODAY AND MANAGE ACCORDINGLY Final Diagnosis URINE RETENTION EVERTON GARCIA MD Sep 10, 2018 9:14 am
--- NOTE | 2018-09-10 09:23 | Physical Therapy Daily Note ---
PT Daily Note-Current Subjective Patient in recliner pre tx, agrees to PT, no complaints of pain. Will be co- treating with OT this morning due to poor patient balance, endurance, safety awareness, resistance to transfers. Appearance Patient in wheelchair post tx with OT to finish grooming. Mental Status Patient Orientation: Person, Confused Transfers Functional [place] Measure 0=Not Assessed/NA 4=Minimal Assistance 1=Total Assistance 5=Supervision or Setup 2=Maximal Assistance 6=Modified [place] 3=Moderate Assistance 7=Complete [place] IRFPAI Quality Coding Scale 6 Independent with activity with or without an assistive device 5 Patient requires set up or clean up by helper. Patient completes activity by themselves 4 Supervision or touching assist (CGA). [place] provide cues , steadying assist 3 The helper provides less than half the effort to complete the activity 2 The helper provides more than half the effort to complete the activity 1 Dependent. The helper does all the effort to complete an activity 7 Patient refused to complete or attempt activity 9 The patient did not perform the activity before the current illness or injury 88 Not attempted due to Medical conditions or safety concerns Transfers (B, C, W/C) (FIM): 4 Sit to/from Stand: 4 Bed to/from Chair: 4 Improved stand pivot transfer but still needs assist especially when transferring to the left side. Cues for safety and hand placement. Weight Bearing Right Lower Extremity: Right Full Weight Bearing Left Lower Extremity: Left Full Weight Bearing Gait Training Gait (FIM): 2 Distance: 100'x3 Gait Level of Assist: 4 Gait Persons Needed: 1 Gait Assistive Device: FWW Patient needs assist guiding walker, with balance, and frequent cues to stay closer to the walker. Neuromuscular assist with standing balance during OT activities Treatments standing, transfers, ambulation, dressing at the beginning of treatment Assessment Current Status: Fair Progress improved transfers PT Short Term Goals Short Term Goals Time Frame: Sep 15, 2018 Transfers (B,C,W/C) (FIM): 4 Gait (FIM): 1 Gait Distance Comment: 20' Gait Level of Assist: 3 Gait Assistive Device: Walker Cristian Wheelchair Distance: 20' PT Photographer Model Goals Penit[facility]iary Goals PT Photographer Model Goals Time Frame: Sep 29, 2018 Transfers (B,C,W/C) (FIM): 4 Sit to Lying (QC): 4 Lying-Sitting on Side/Bed(QC): 4 Sit to Stand (QC): 4 Rollin Roll Left to Right (QC): 4 Chair/Kbe-oc-Xnhur Xfer(QC): 4 Car Transfer (QC): 4 Does the Patient Walk: Yes Gait (FIM): 2 Gait distance (FIM): 1=up to 49 ft Distance: 50' Walk 10 feet (QC): 3 Walk 10ft-Uneven Surface(QC): 3 Walk 50ft with 2 Turns (QC): 3 Walk 150 ft (QC): 0 Gait Level of Assist: 4 Gait Assistive Device: Walker Cristian Does the Pt use WC or Scooter?: Yes Wheelchair (FIM): 2 Wheelchair distance (FIM): 1=up to 49 ft Distance: 50 Wheelchair Level of Assist: 4 Wheel 50 feet with 2 turns (QC: 4 Stairs (FIM): 1 # of Steps: 1 1 Step (curb) (QC): 3 4 Steps (QC): 0 12 Steps (QC): 0 Stairs Level Of Assist: 4 Picking up an Object (QC): 0 PT Plan Problem List Problem List: Activity Tolerance, Functional Strength, Safety, Balance, Gait, Transfer, Bed Mobility, ROM Treatment/Plan Treatment Plan: Continue Plan of Care Treatment Plan: Bed Mobility, Concurrent Therapy, Education, Functional Activity Navya, Functional Strength, Group Therapy, Gait, Safety, Therapeutic Exercise, Transfers Treatment Duration: Sep 29, 2018 Frequency: At least 5 of 7 days/Wk (IRF) Estimated Hrs Per Day: 1.5 hours per day Patient and/or Family Agrees t: Yes Safety Risks/Education Patient Education: Gait Training, Transfer Techniques, Correct Positioning, Safety Issues Teaching Recipient: Patient Teaching Methods: Demonstration, Discussion Response to Teaching: Reinforcement Needed Time/GCodes Time In: 0800 Time Out: 0900 Total Billed Treatment Time: 60 Total Billed Treatment 1 visit FA 15' GT 15' NM 30' PT worked on dressing, standing balance, ambulation, transfers, OT worked on UE activities while standing, dressing, assisted with transfers and ambulation FABRICIO ALFONSO PT Sep 10, 2018 09:23
--- NOTE | 2018-09-10 10:41 | Occupational Ther Daily Note ---
OT Current Status-Daily Note Subjective Pt stated that he was "good" today. Appearance Pt in recliner, breakfast tray in front of him. Pt said he was done eating and willing to work with OT/PT. Mental Status/Objective Patient Orientation: Person Therapy Code Descriptions/Definitions Functional [place] Measure: 0=Not Assessed/NA 4=Minimal Assistance 1=Total Assistance 5=Supervision or Setup 2=Maximal Assistance 6=Modified [place] 3=Moderate Assistance 7=Complete [place] ADL-Treatment Therapy Code Descriptions/Definitions Functional [place] Measure: 0=Not Assessed/NA 4=Minimal Assistance 1=Total Assistance 5=Supervision or Setup 2=Maximal Assistance 6=Modified [place] 3=Moderate Assistance 7=Complete [place] Therapy Quality Codes: 6 Independent with activity with or without an assistive device 5 Patient requires set up or clean up by helper. Patient completes activity by themselves 4 Supervision or touching assist (CGA). [place] provide cues , steadying assist 3 The helper provides less than half the effort to complete the activity 2 The helper provides more than half the effort to complete the activity 1 Dependent. The helper does all the effort to complete an activity 7 Patient refused to complete or attempt activity 9 The patient did not perform the activity before the current illness or injury 88 Not attempted due to Medical conditions or safety concerns Grooming (FIM): 4 (Pt performs grooming in wc at sink, many verbal cues, and hand over hand assist to initiate washing face.) Upper Body (FIM): 5 (Pt performs UE dressing sitting with setup and verbal cues. ) Lower Body Dressing (FIM): 3 (Pt performs LE dressing while sitting in chair, needs assist in threading pants & many verbal cues. Pt able to pull up pants while standing at FWW with MIN A to stand for balance. ) Transfers (B, C, W/C) (FIM): 4 (Pt requires MIN A for transfers for balance and safety concerns. ) After participating in ambulation and therapy in gym, Pt ambulates to room and transfers to for grooming activities.Pt participated in grooming sink side in wc. Pt was able to initiate task of brushing teeth with setup after instruction that he needed to brush his teeth. Pt perseverates with the toothpaste applying much more than needed. Pt able to comb hair, but required verbal cues to comb on L side. Pt required verbal cues to also comb his garcia. Pt instructed to wash face. Pt seemed confused and unable to initiate with setup of washcloth and water turned on. Pt kept folding washcloth neatly and setting it aside. After several verbal cues to wash face, therapist wets washcloth and hands to Pt and gives instruction to wash face. Pt washes face, neatly folds washcloth and sets aside. Pt requires extended time for all grooming tasks, verbal cues throughout tasks, and perseverates with therapist needing to remove tools for task to end task. Pt transfers to recliner, seat alarm set, all needs met. Other Treatment Pt participated in PT/OT treatment for safety in ambulation, transfers and standing functional balance activities. See PT note for ambulation and transfer comments. Pt ambulated to therapy gym. Pt required rest break. While seated and resting, Pt participated in nut and bolt activity x 2 for fine motor skills. Pt needed verbal cues to stay on task and kept closing his eyes during task. Pt participated in arm arc activity while in stance for static standing balance with PT assist for balance and safety concerns. Pt had difficulty in using R arm to move ring across midline. Pt would bring ring up approx 25% of arc then use L arm to continue arc to opposite side. OT instructed to use only R arm throughout entire movement. Pt would try to continue task using both arms. Pt used L arm throughout several rings. Pt able to complete task with last two rings using only the R arm. Pt took a rest break seated. Pt ambulated to nursing station and returned to therapy gym, see PT note for comments. Pt took rest break. Pt again stood for static standing balance functional activity of arm arc with PT' s assist for balance and safety concerns to participate in arm arc using only the L arm throughout the entire arc. Pt easily was able to complete task as directed, neatly stacking rings upon each other at opposite end of arc. Pt needed verbal cues for standing posture while participating in activity. Pt needed rest break. Pt ambulated to room, see ADL treatment for continuation of session. Co-treat with PT secondary to impaired mobility, strength, activity tolerance, and balance. OT focusing on ADL completion, UE management, sequencing, and problem solving. PT focusing on transfers, mobility, and balance during functional tasks. Education OT Patient Education: Correct positioning, Energy conservation, Exercise program, Modified ADL techniques, Progress toward Goal/Update tx plan, Purpose of tx/functional activities, Reviewed precautions, Rehab process, Safety issues , Transfer techniques, W/C management Teaching Recipient: Patient Teaching Methods: Demonstration, Discussion Response to Teaching: Reinforcement Needed OT Short Term Goals Short Term Goals Time Frame: Sep 15, 2018 Grooming(FIM): 5 Transfers (B,C,W/C) (FIM): 4 Toilet/Commode Transfer(FIM): 4 1=Demonstrate adherence to instructed precautions during ADL tasks. 2=Patient will verbalize/demonstrate understanding of assistive devices/ modifications for ADL. 3=Patient will improve strength/tolerance for activity to enable patient to perform ADL's. OT Cable Assembler Goals Half-Way Goals Time Frame: Sep 29, 2018 Eating (FIM): 6 Eating (QC): 6 Groomin Oral Hygiene (QC): 5 Bathing(FIM): 5 Shower/Bathe Self (QC): 5 Upper Body Dressing(FIM): 6 Upper Body Dressing (QC): 6 Lower Body Dressing(FIM): 6 Lower Body Dressing (QC): 6 On/Off Footwear (QC): 6 Toileting(FIM): 6 Toileting Hygiene (QC): 6 Toilet/Commode Transfer(FIM): 6 Toilet/Commode Transfer (QC): 6 Shower Transfer(FIM): 5 Additional Goals: 1-Demonstrate ADL Tasks, 2-Verbalize Understanding, 3- ImproveStrength/[place] 1=Demonstrate adherence to instructed precautions during ADL tasks. 2=Patient will verbalize/demonstrate understanding of assistive devices/ modifications for ADL. 3=Patient will improve strength/tolerance for activity to enable patient to perform ADL's. OT Education/Plan Problem List/Assessment Assessment: Decreased Activ Tolerance, Decreased Safety Aware, Dependent Transfers, Impaired Cognition, Impaired Coordination, Impaired Funct Balance, Impaired I ADL's, Impaired Self-Care Skills Pt would benefit from skilled OT to increase his independence in basic self care Discharge Recommendations Plan/Recommendations: Continue POC Treatment Plan/Plan of Care Treatment,Training & Education: Yes Patient would benefit from OT for education, treatment and training to promote independence in ADL's, mobility, safety and/or upper extremity function for ADL' s. Plan of Care: ADL Retraining, Caregiver Training, Functional Mobility, Group Exercise/Act as Ind (education, exercise, socialization, funct activities, communication), UE Funct Exercise/Act, UE Neuromus Re-Ed/Coord, Visual/ Perceptual Retrain Treatment Duration: Sep 29, 2018 Frequency: At least 5 of 7 days/Wk (IRF) Estimated Hrs Per Day: 1.5 hours per day (1.25 to 1.5) Agreement: Yes Rehab Potential: Guarded Time/GCodes Start Time: 08:00 Stop Time: 09:15 Total Time Billed (hr/min): 75 Billed Treatment Time 1, ADL x 25 minutes, FA x 50 minutes. PARIS JAMIL OT Sep 10, 2018 10:41
--- NOTE | 2018-09-10 12:09 | Speech Therapy Daily Note ---
Speech Daily Progress Note Subjective Date Seen by Provider: Sep 10, 2018 Time Seen by Provider: 00:30 Patient sitting in his recliner resting when I entered the room. He was pleasant and cooperative. Objective Patient completed simple memory activities at 60% with moderate to maximum verbal cues and/or repetitions. Assessment Assessment Current Status: Fair Progress Treatment Plan Continue Plan of Care Communication Comprehension: 2 Expression: 2 Social Cognition Social Interaction: 3 Problem Solvin Memory: 3 Speech Short Term Goals Short Term Goals Short Term Goals 1) Patient will complete simple memory tasks at 75% with minimal cues. 2) Patient will complete simple problem solving tasks at 75% with minimal cues. 3) Patient will complete simple 1 step directions with 75% with minimal cues. Speech Aoc Operations Intelligence Officer Goals Correction Goals Patient will improve cognitive-communication tasks for improved safety and independence. Speech-Plan Patient/Family Goals Patient/Family Goals: Patient plans to return home with family post rehab. Treatment Plan Speech Therapy Treatment Plan: Continue Plan of Care Patient continues to require frequent prompts to wake up during the therapy session. Treatment Duration: Sep 08, 2018 Frequency: 5 times per week Estimated Hrs Per Day: .5 hour per day Rehab Potential: Guarded Barriers to Learning: Patient falls asleep frequently, sometimes even in mid sentence. Pt/Family Agrees to Plan: Yes Safety Risks/Education Teaching Recipient: Patient Teaching Methods: Discussion Response to Teaching: Verbalize Understanding Education Topics Provided: Safety within his room and using the call light for assistance. Time Speech Therapy Time In: 11:30 Speech Therapy Time Out: 12:00 Total Billed Time: 30 Billed Treatment Time [address] Sep 10, 2018 12:09
--- NOTE | 2018-09-10 13:20 | Physical Therapy Daily Note ---
PT Daily Note-Current Subjective Patient in recliner pre tx, agrees to PT, no complaints of pain. Appearance Patient in recliner post tx with nurse call, chair alarm on, all needs met. Mental Status Patient Orientation: Person, Confused Transfers Therapy Code Descriptions/Definitions Functional [place] Measure: 0=Not Assessed/NA 4=Minimal Assistance 1=Total Assistance 5=Supervision or Setup 2=Maximal Assistance 6=Modified [place] 3=Moderate Assistance 7=Complete [place] Therapy Quality Codes: 6 Independent with activity with or without an assistive device 5 Patient requires set up or clean up by helper. Patient completes activity by themselves 4 Supervision or touching assist (CGA). [place] provide cues , steadying assist 3 The helper provides less than half the effort to complete the activity 2 The helper provides more than half the effort to complete the activity 1 Dependent. The helper does all the effort to complete an activity 7 Patient refused to complete or attempt activity 9 The patient did not perform the activity before the current illness or injury 88 Not attempted due to Medical conditions or safety concerns Transfers (B, C, W/C) (FIM): 4 Sit to/from Stand: 4 Bed to/from Chair: 4 Weight Bearing Right Lower Extremity: Right Full Weight Bearing Left Lower Extremity: Left Full Weight Bearing Gait Training Gait (FIM): 2 Distance: 100'x2 Gait Level of Assist: 4 Gait Persons Needed: 1 Gait Assistive Device: FWW Min assist, patient has festinating gait needs cues for safety and direction and to take bigger steps. Needs assist guiding the walker. Treatments transfers, ambulation Assessment Current Status: Fair Progress improved ambulation PT Short Term Goals Short Term Goals Time Frame: Sep 15, 2018 Transfers (B,C,W/C) (FIM): 4 Gait (FIM): 1 Gait Distance Comment: 20' Gait Level of Assist: 3 Gait Assistive Device: Walker Cristian Wheelchair Distance: 20' PT Retirement Goals Pocket Setter Lockstitch Goals PT Retirement Goals Time Frame: Sep 29, 2018 Transfers (B,C,W/C) (FIM): 4 Sit to Lying (QC): 4 Lying-Sitting on Side/Bed(QC): 4 Sit to Stand (QC): 4 Rollin Roll Left to Right (QC): 4 Chair/[id number]-zr-Kjuzj Xfer(QC): 4 Car Transfer (QC): 4 Does the Patient Walk: Yes Gait (FIM): 2 Gait distance (FIM): 1=up to 49 ft Distance: 50' Walk 10 feet (QC): 3 Walk 10ft-Uneven Surface(QC): 3 Walk 50ft with 2 Turns (QC): 3 Walk 150 ft (QC): 0 Gait Level of Assist: 4 Gait Assistive Device: Walker Cristian Does the Pt use WC or Scooter?: Yes Wheelchair (FIM): 2 Wheelchair distance (FIM): 1=up to 49 ft Distance: 50 Wheelchair Level of Assist: 4 Wheel 50 feet with 2 turns (QC: 4 Stairs (FIM): 1 # of Steps: 1 1 Step (curb) (QC): 3 4 Steps (QC): 0 12 Steps (QC): 0 Stairs Level Of Assist: 4 Picking up an Object (QC): 0 PT Plan Problem List Problem List: Activity Tolerance, Functional Strength, Safety, Balance, Gait, Transfer, Bed Mobility, ROM Treatment/Plan Treatment Plan: Continue Plan of Care Treatment Plan: Bed Mobility, Concurrent Therapy, Education, Functional Activity Navya, Functional Strength, Group Therapy, Gait, Safety, Therapeutic Exercise, Transfers Treatment Duration: Sep 29, 2018 Frequency: At least 5 of 7 days/Wk (IRF) Estimated Hrs Per Day: 1.5 hours per day Patient and/or Family Agrees t: Yes Safety Risks/Education Patient Education: Gait Training, Transfer Techniques, Correct Positioning, Safety Issues Teaching Recipient: Patient Teaching Methods: Demonstration, Discussion Response to Teaching: Reinforcement Needed Time/GCodes Time In: 1300 Time Out: 1320 Total Billed Treatment Time: 20 Total Billed Treatment 1 visit GT 20' FABRICIO ALFONSO PT Sep 10, 2018 13:20
[2018-09-10] MEDS: TAMSULOSIN 0.4 MG (FLOMAX) CAP PO SCH (16:34)
[2018-09-10 16:35] VITALS: BP 154/68
[2018-09-10] MEDS: BETHANECHOL 25 MG (URECHOLINE) TAB PO SCH (20:06)
[2018-09-10] MEDS: meTOprolol SUCCINATE 100 MG (TOPROL XL) TAB PO SCH (20:06)
[2018-09-10] MEDS: PHENYTOIN 100 MG (DILANTIN) CAP PO SCH (20:06)
[2018-09-10] MEDS ORDERED: inSUlin DETERMIR 1 UNIT/0.01 ML (LEVEMIR) CHARGE PER UNIT SQ SCH (21:00)
[2018-09-11 05:12] VITALS: BP 128/66
[2018-09-11] MEDS: inSUlin ASPART (NovoLOG) 1 UNIT/0.01 ML (CHARGE PER UNIT) SC SCH ×4 (05:31→20:33)
[2018-09-11] MEDS: SINEMET 25/100 (CARBIDOPA/LEVODOPA) TAB PO SCH ×3 (06:19→16:05)
[2018-09-11] MEDS: MULTIVIT W/MINERALS TAB (THERAGRAN M) PO SCH (06:19)
[2018-09-11] MEDS: BETHANECHOL 25 MG (URECHOLINE) TAB PO SCH ×4 (06:19→20:19)
[2018-09-11] MEDS: glipiZIDE 5 MG (GLUCOTROL) TAB PO SCH (06:19)
[2018-09-11 08:45] VITALS: BP 167/71
[2018-09-11] MEDS: AMIODARONE 200 MG (CORDARONE) TAB PO SCH (09:06)
[2018-09-11] MEDS: DOCUSATE SODIUM 100 MG (COLACE) CAP PO SCH ×2 (09:06→20:18)
[2018-09-11] MEDS: GABAPENTIN 300 MG (NEURONTIN) CAP PO SCH ×2 (09:06→20:19)
[2018-09-11] MEDS: APIXABAN 5 MG (ELIQUIS) TABLET PO SCH ×2 (09:06→20:18)
[2018-09-11] MEDS: amLODIPine 10 MG (NORVASC) TAB PO SCH (09:06)
[2018-09-11] MEDS: FISH OIL 1200 MG CAPSULE PO SCH ×2 (09:07→20:18)
[2018-09-11] MEDS: QUINAPRIL 40 MG PO SCH (09:08)
--- NOTE | 2018-09-11 11:20 | Physical Therapy Daily Note ---
PT Daily Note-Current Subjective Pt. up in chair and agrees to therapy. He denies pain. Mental Status Patient Orientation: Person, Place Transfers Therapy Code Descriptions/Definitions Functional [place] Measure: 0=Not Assessed/NA 4=Minimal Assistance 1=Total Assistance 5=Supervision or Setup 2=Maximal Assistance 6=Modified [place] 3=Moderate Assistance 7=Complete [place] Therapy Quality Codes: 6 Independent with activity with or without an assistive device 5 Patient requires set up or clean up by helper. Patient completes activity by themselves 4 Supervision or touching assist (CGA). [place] provide cues , steadying assist 3 The helper provides less than half the effort to complete the activity 2 The helper provides more than half the effort to complete the activity 1 Dependent. The helper does all the effort to complete an activity 7 Patient refused to complete or attempt activity 9 The patient did not perform the activity before the current illness or injury 88 Not attempted due to Medical conditions or safety concerns Transfers (B, C, W/C) (FIM): 4 Sit to Stand (QC): 4 Weight Bearing Right Lower Extremity: Right Full Weight Bearing Left Lower Extremity: Left Full Weight Bearing Gait Training Does the Patient Walk?: Yes Gait (FIM): 4 Distance (FIM): 3=150 ft Distance: 150 ft, 100 ft Walk 150 ft (QC): 4 Gait Level of Assist: 4 Gait Persons Needed: 1 Gait Assistive Device: FWW short steps, shuffled gait, needs cues for direction and to stay close to walker Exercises NuStep Minutes: 10 NuStep Workload: 4 Treatments gait, exercise Assessment Current Status: Good Progress Pt. needs cues for safety and direction during session. He has shuffled gait pattern and is unable to correct with verbal cuing. Pt. returned to bedside chair post session with call light, chair alarm set, and all needs met. PT Short Term Goals Short Term Goals Time Frame: Sep 15, 2018 Transfers (B,C,W/C) (FIM): 4 Gait (FIM): 1 Gait Distance Comment: 20' Gait Level of Assist: 3 Gait Assistive Device: Walker Cristian Wheelchair Distance: 20' PT Fdc Goals Fdc Goals PT Fdc Goals Time Frame: Sep 29, 2018 Transfers (B,C,W/C) (FIM): 4 Sit to Lying (QC): 4 Lying-Sitting on Side/Bed(QC): 4 Sit to Stand (QC): 4 Rollin Roll Left to Right (QC): 4 Chair/Vqe-gv-Xoytc Xfer(QC): 4 Car Transfer (QC): 4 Does the Patient Walk: Yes Gait (FIM): 2 Gait distance (FIM): 1=up to 49 ft Distance: 50' Walk 10 feet (QC): 3 Walk 10ft-Uneven Surface(QC): 3 Walk 50ft with 2 Turns (QC): 3 Walk 150 ft (QC): 0 Gait Level of Assist: 4 Gait Assistive Device: Walker Cristian Does the Pt use WC or Scooter?: Yes Wheelchair (FIM): 2 Wheelchair distance (FIM): 1=up to 49 ft Distance: 50 Wheelchair Level of Assist: 4 Wheel 50 feet with 2 turns (QC: 4 Stairs (FIM): 1 # of Steps: 1 1 Step (curb) (QC): 3 4 Steps (QC): 0 12 Steps (QC): 0 Stairs Level Of Assist: 4 Picking up an Object (QC): 0 PT Plan Treatment/Plan Treatment Plan: Continue Plan of Care Treatment Plan: Bed Mobility, Concurrent Therapy, Education, Functional Activity Navya, Functional Strength, Group Therapy, Gait, Safety, Therapeutic Exercise, Transfers Treatment Duration: Sep 29, 2018 Frequency: At least 5 of 7 days/Wk (IRF) Estimated Hrs Per Day: 1.5 hours per day Patient and/or Family Agrees t: Yes Time/GCodes Time In: 903 Time Out: 928 Total Billed Treatment Time: 25 Total Billed Treatment 1, GT 15', Ex 10' GEOFF GONZALEZ PT Sep 11, 2018 11:20
--- NOTE | 2018-09-11 13:47 | Cardiology Progress Note ---
Subjective Date Seen by Provider: Sep 11, 2018 Time Seen by Provider: 13:46 Subjective/Events-last exam Patient is sitting in a chair, eating lunch, denied any chest pain. Feeling better. Review of Systems General: No Chills, No Night Sweats, No Fatigue, No Malaise, No Appetite, No Other HEENT: No Head Aches, No Visual Changes, No Eye Pain, No Ear Pain, No Dysphasia , No Sinus Congestion, No Post Nasal Drip, No Sore Throat, No Other Pulmonary: No Dyspnea, No Cough, No Pleuritic Chest Pain, No Other Cardiovascular: No: Chest Pain, Palpitations, Orthopnea, Paroxysmal Noc. Dyspnea, Edema, Lt Headedness, Other Objective-Cardiology Exam Last Set of Vital Signs Vital Signs 09/11/18 08:45 Temp 97.2 Pulse 60 Resp 20 B/P (MAP) 167/71 (103) Pulse Ox 93 O2 Delivery Room Air Capillary Refill : I&O Intake and Output 09/11/18 00:00 Intake Total 850 ml Output Total 1000 ml Balance -150 ml Intake Oral 850 ml Output Urine Total 1000 ml Bladder Scan Volume Amount 309 ml 412 ml # Bowel Movements 2 General: Alert, Cooperative, No Acute Distress HEENT: Atraumatic, PERRLA, EOMI, Mucous Memb Moist/[place]bert [place] Neck: Supple, No JVD Lungs: Clear to Auscultation Heart: Regular Rate, Normal S1, Normal S2 Abdomen: Normal Bowel Sounds, Soft, No Tenderness Extremities: No Cyanosis, No Edema, Other (Indwelling Patel catheter to DD) Skin: No Rashes Neuro: Normal Speech, Other (Impaired strength Left leg Impaired balance Mild dementia with memory loss) A/P-Cardiology Admission Diagnosis Generalized weakness PAF CAD HTN Assessment/Plan Generalized weakness, improving, workup has been negative. Continue his physical therapy Change in mental status, had previous hospitalization and evaluation in the ER for change in mental status in the past, workup at that time was negative. Continue with physical therapy Parkinson, started on Sinemet, followed by primary team Sick sinus syndrome, history of episodes of bradycardia with complete heart block, frequent PVCs, ventricular bigeminy and ventricular couplets, short PAT' s. Status post permanent pacemaker implantation April 2015, using a Values of n device Advistio GONZALEZ, good sensing and capture. Continue to monitor History of nonsustained ventricular tachycardia, noted on interrogation on July 02, 2016, has been maintained on amiodarone 200 mg daily. Continue to monitor Paroxysmal atrial fibrillation, maintained on Eliquis. Continue to monitor [id number] score of 6, high risk, yearly risk of stroke without OAC is 9.8%. Maintained on Eliquis, continue to monitor Coronary artery disease, multiple interventions in the past, most recent cardiac catheterization done March 14, 2015 revealed extensive coronary artery disease, heavily calcified system, with 40 percent distal left main coronary artery stenosis. 3 stents in LAD proximally with 50-60 percent in-stent restenosis. Distal LAD had 95 percent stenosis followed by 80 percent stenosis long segment, very small artery not amendable to intervention. Total occlusion of the first obtuse marginal branch filled by collaterals. Patent stent in the proximal mid second OM branch with moderate disease in the distal proper circumflex artery. Patent stent in the RCA with 50 percent proximal right coronary artery stenosis and 50-60 distal right coronary artery stenosis. Asymptomatic, continue to monitor Stress test in July 2016 showed fixed defect involving the whole inferior wall and inferoapical segment with dilated left ventricle, inferior wall hypokinesia, Ejection fraction 54 percent. Echocardiogram showed ejection fraction 60 percent, dilated left atrium, mild to moderate mitral regurgitation and pulmonary artery pressure of 35 mmHg. continue to monitor Hypertension, controlled, continue to monitor Hyperlipidemia, I will hold statin due to generalized weakness and monitor his response History of CVA in 2010, mild residual right sided weakness, episodes of confusion occurred over the last year where patient became confused and drove over once to [place] and once to [place]. It was felt that it was a global ischemic attack with confusion, workup at that time was negative. He was seen by Dr. Jiménez and started on Dilantin, the dose was increased by Dr. Damon, followed and managed by primary care physician Diabetes mellitus, followed and managed by primary care physician Carotid stenosis, Seen and followed by Dr Simmons, continue to monitor Ex-Tobaccoism, patient smokes pipe, he stopped smoking in October, encouraged to continue with smoking cessation Peripheral neuropathy, maintained on gabapentin. Continue on current medication , continue to monitor Sleep apnea, severe on sleep study in October 2015, does not use his machine. Clinical Quality Measures DVT/VTE Risk/Contraindication: Risk Factor Score Per Nursin RFS Level Per Nursing on Admit: 4+=Very High SEBASTIÁN VALLE MD Sep 11, 2018 13:47
[2018-09-11] MEDS: TAMSULOSIN 0.4 MG (FLOMAX) CAP PO SCH (17:22)
[2018-09-11 17:35] VITALS: BP 143/77
[2018-09-11] MEDS: meTOprolol SUCCINATE 100 MG (TOPROL XL) TAB PO SCH (20:18)
[2018-09-11] MEDS: PHENYTOIN 100 MG (DILANTIN) CAP PO SCH (20:19)
[2018-09-11] MEDS: inSUlin DETERMIR 1 UNIT/0.01 ML (LEVEMIR) CHARGE PER UNIT SQ SCH (20:33)
[2018-09-12 05:36] VITALS: BP 167/66
[2018-09-12] MEDS: inSUlin ASPART (NovoLOG) 1 UNIT/0.01 ML (CHARGE PER UNIT) SC SCH ×4 (06:16→20:37)
[2018-09-12] MEDS: BETHANECHOL 25 MG (URECHOLINE) TAB PO SCH ×4 (06:28→20:36)
[2018-09-12] MEDS: MULTIVIT W/MINERALS TAB (THERAGRAN M) PO SCH (06:28)
[2018-09-12] MEDS: glipiZIDE 5 MG (GLUCOTROL) TAB PO SCH (06:28)
[2018-09-12] MEDS: SINEMET 25/100 (CARBIDOPA/LEVODOPA) TAB PO SCH ×3 (06:28→16:36)
[2018-09-12] MEDS: APIXABAN 5 MG (ELIQUIS) TABLET PO SCH ×2 (08:55→20:36)
[2018-09-12] MEDS: GABAPENTIN 300 MG (NEURONTIN) CAP PO SCH ×2 (08:55→20:35)
[2018-09-12] MEDS: AMIODARONE 200 MG (CORDARONE) TAB PO SCH (08:55)
[2018-09-12] MEDS: amLODIPine 10 MG (NORVASC) TAB PO SCH (08:55)
[2018-09-12] MEDS: DOCUSATE SODIUM 100 MG (COLACE) CAP PO SCH ×2 (08:55→19:35)
[2018-09-12] MEDS: FISH OIL 1200 MG CAPSULE PO SCH ×2 (09:24→20:35)
[2018-09-12] MEDS: QUINAPRIL 40 MG PO SCH (09:24)
[2018-09-12] MEDS: TAMSULOSIN 0.4 MG (FLOMAX) CAP PO SCH (16:36)
[2018-09-12 17:30] VITALS: BP 155/65
[2018-09-12] MEDS: meTOprolol SUCCINATE 100 MG (TOPROL XL) TAB PO SCH (20:35)
[2018-09-12] MEDS: PHENYTOIN 100 MG (DILANTIN) CAP PO SCH (20:36)
[2018-09-12] MEDS: inSUlin DETERMIR 1 UNIT/0.01 ML (LEVEMIR) CHARGE PER UNIT SQ SCH (20:37)
[2018-09-13 05:40] VITALS: BP 145/62
[2018-09-13] MEDS: inSUlin ASPART (NovoLOG) 1 UNIT/0.01 ML (CHARGE PER UNIT) SC SCH ×4 (05:47→20:15)
[2018-09-13] MEDS: glipiZIDE 5 MG (GLUCOTROL) TAB PO SCH (06:25)
[2018-09-13] MEDS: SINEMET 25/100 (CARBIDOPA/LEVODOPA) TAB PO SCH ×3 (06:25→16:30)
[2018-09-13] MEDS: BETHANECHOL 25 MG (URECHOLINE) TAB PO SCH ×4 (06:25→20:12)
[2018-09-13] MEDS: MULTIVIT W/MINERALS TAB (THERAGRAN M) PO SCH (06:25)
--- NOTE | 2018-09-13 07:39 | Progress Note (SOAP) ---
Subjective Time Seen by a Provider: 07:37 Subjective/Events-last exam Patient alert today. Patient over the weekend with sleeping. Patient doing well with physical therapy. Patient has Patel catheter in and swelling of the penis. Patient sugars slow today to decrease the Levemir patient speaking better Objective Exam Vital Signs Date Time Temp Pulse Resp B/P (MAP) Pulse Ox O2 Delivery O2 Flow Rate FiO2 09/13/18 05:40 99.4 63 18 145/62 (89) 93 Room Air 09/12/18 20:45 Room Air 09/12/18 17:30 98.0 58 18 155/65 (95) 96 Room Air 09/12/18 09:00 Room Air I & O 09/13/18 07:00 Intake Total 600 ml Output Total 1040 ml Balance -440 ml Capillary Refill : General Appearance: No Apparent Distress, WD/WN HEENT: Normal ENT Inspection Neck: Full Range of Motion, Normal Inspection Respiratory: Lungs Clear, No Accessory Muscle Use, No Respiratory Distress Cardiovascular: Regular Rate, Rhythm, No Murmur Gastrointestinal: non tender, soft Results Lab Laboratory Tests 09/12/18 11:07: Glucometer 147H 09/12/18 15:49: Glucometer 306H 09/12/18 20:30: Glucometer 334H 09/13/18 05:43: Glucometer 56*L 09/13/18 06:16: Glucometer 88 Assessment/Plan Assessment/Plan Assess & Plan/Chief Complaint Debility. Parkinson disease. Dementia. Mental status change improving. Diabetes. Increased the dose of Sinemet. . 09/10/18. Debility better. Parkinson disease. Dementia. Mental status change improved. Diabetes sugars still little bit high. Cogwheel motion of right arm much less. . 09/13/18. Debility better. Parkinson disease. Dementia. Diabetes patient hypoglycemic this morning. Patient still has Patel catheter in Clinical Quality Measures DVT/VTE Risk/Contraindication: Risk Factor Score Per Nursin RFS Level Per Nursing on Admit: 4+=Very High DENIZ KENT DO Sep 13, 2018 07:39
[2018-09-13] MEDS: AMIODARONE 200 MG (CORDARONE) TAB PO SCH (08:12)
[2018-09-13] MEDS: GABAPENTIN 300 MG (NEURONTIN) CAP PO SCH ×2 (08:12→20:11)
[2018-09-13] MEDS: amLODIPine 10 MG (NORVASC) TAB PO SCH (08:12)
[2018-09-13] MEDS: APIXABAN 5 MG (ELIQUIS) TABLET PO SCH ×2 (08:13→20:12)
[2018-09-13] MEDS: FISH OIL 1200 MG CAPSULE PO SCH ×2 (09:48→20:11)
[2018-09-13] MEDS: QUINAPRIL 40 MG PO SCH (09:48)
[2018-09-13] MEDS: DOCUSATE SODIUM 100 MG (COLACE) CAP PO SCH ×2 (09:49→20:17)
--- NOTE | 2018-09-13 09:59 | Progress Note-Urology ---
Progress Note-Urology Progress Notes/Assess & Plan Progress/Assessment & Plan TOV TODAY AND PLAN PER ORDERS Final Diagnosis URINE RETENTION EVERTON GARCIA MD Sep 13, 2018 09:59
--- NOTE | 2018-09-13 10:00 | Physical Therapy Daily Note ---
PT Daily Note-Current Subjective Patient in bed pre tx, agrees to PT, no complaints of pain. Will be co- treating with OT for most of the treatment due to confusion, impaired safety awareness, impaired balance. Appearance Patient with OT post tx to finish up with them. Mental Status Patient Orientation: Person, Confused Transfers Therapy Code Descriptions/Definitions Functional [place] Measure: 0=Not Assessed/NA 4=Minimal Assistance 1=Total Assistance 5=Supervision or Setup 2=Maximal Assistance 6=Modified [place] 3=Moderate Assistance 7=Complete [place] Therapy Quality Codes: 6 Independent with activity with or without an assistive device 5 Patient requires set up or clean up by helper. Patient completes activity by themselves 4 Supervision or touching assist (CGA). [place] provide cues , steadying assist 3 The helper provides less than half the effort to complete the activity 2 The helper provides more than half the effort to complete the activity 1 Dependent. The helper does all the effort to complete an activity 7 Patient refused to complete or attempt activity 9 The patient did not perform the activity before the current illness or injury 88 Not attempted due to Medical conditions or safety concerns Transfers (B, C, W/C) (FIM): 4 Scootin Rollin Supine to/from Sit: 4 Sit to/from Stand: 4 Bed to/from Chair: 4 Min assist supine to sit, CGA sit to stand. Patient needs cues for safety and hand placement, occasionally needs guided manually, sometimes trouble initiating movement. Weight Bearing Right Lower Extremity: Right Full Weight Bearing Left Lower Extremity: Left Full Weight Bearing Neuromuscular Standing balance activity hitting ball and balloon. Treatments bed mobility and transfers, dressing, bathing, balance activity. Assessment Current Status: Fair Progress improving balance and transfers PT Short Term Goals Short Term Goals Time Frame: Sep 15, 2018 Transfers (B,C,W/C) (FIM): 4 Gait (FIM): 1 Gait Distance Comment: 20' Gait Level of Assist: 3 Gait Assistive Device: Walker Cristian Wheelchair Distance: 20' PT Assisted Goals Help Desk Associate Goals PT Help Desk Associate Goals Time Frame: Sep 29, 2018 Transfers (B,C,W/C) (FIM): 4 Sit to Lying (QC): 4 Lying-Sitting on Side/Bed(QC): 4 Sit to Stand (QC): 4 Rollin Roll Left to Right (QC): 4 Chair/Prg-db-Ntokb Xfer(QC): 4 Car Transfer (QC): 4 Does the Patient Walk: Yes Gait (FIM): 2 Gait distance (FIM): 1=up to 49 ft Distance: 50' Walk 10 feet (QC): 3 Walk 10ft-Uneven Surface(QC): 3 Walk 50ft with 2 Turns (QC): 3 Walk 150 ft (QC): 0 Gait Level of Assist: 4 Gait Assistive Device: Walker Cristian Does the Pt use WC or Scooter?: Yes Wheelchair (FIM): 2 Wheelchair distance (FIM): 1=up to 49 ft Distance: 50 Wheelchair Level of Assist: 4 Wheel 50 feet with 2 turns (QC: 4 Stairs (FIM): 1 # of Steps: 1 1 Step (curb) (QC): 3 4 Steps (QC): 0 12 Steps (QC): 0 Stairs Level Of Assist: 4 Picking up an Object (QC): 0 PT Plan Problem List Problem List: Activity Tolerance, Functional Strength, Safety, Balance, Gait, Transfer, Bed Mobility, ROM Treatment/Plan Treatment Plan: Continue Plan of Care Treatment Plan: Bed Mobility, Concurrent Therapy, Education, Functional Activity Navya, Functional Strength, Group Therapy, Gait, Safety, Therapeutic Exercise, Transfers Treatment Duration: Sep 29, 2018 Frequency: At least 5 of 7 days/Wk (IRF) Estimated Hrs Per Day: 1.5 hours per day Patient and/or Family Agrees t: Yes Safety Risks/Education Patient Education: Transfer Techniques, Correct Positioning, Safety Issues Teaching Recipient: Patient Teaching Methods: Demonstration, Discussion Response to Teaching: Reinforcement Needed Time/GCodes Time In: 0800 Time Out: 0900 Total Billed Treatment Time: 60 Total Billed Treatment 1 visit NM 15' FA 45' PT and OT co-treated for 45'. PT performed bed mobility and transfers, balance training, and assisted with balance and positioning during bathing. OT worked on balance training, bathing, dressing. FABRICIO ALFONSO PT Sep 13, 2018 10:00
--- NOTE | 2018-09-13 10:12 | Speech Therapy Daily Note ---
Speech Daily Progress Note Subjective Date Seen by Provider: Sep 13, 2018 Time Seen by Provider: 00:30 Patient demo increased level of alert today and only fell asleep x2 with easy arousal with verbal prompts. Objective Patient completed simple y/n questions related to his immediate environment with 75% accuracy given moderate verbal cues and/or repetitions. Treatment Plan Continue Plan of Care Communication Comprehension: 2 Expression: 2 Social Cognition Social Interaction: 3 Problem Solvin Memory: 3 Speech Short Term Goals Short Term Goals Short Term Goals 1) Patient will complete simple memory tasks at 75% with minimal cues. 2) Patient will complete simple problem solving tasks at 75% with minimal cues. 3) Patient will complete simple 1 step directions with 75% with minimal cues. Speech Cat Cracker Operator Goals Cat Cracker Operator Goals Patient will improve cognitive-communication tasks for improved safety and independence. Speech-Plan Patient/Family Goals Patient/Family Goals: Patient plans to return home with his as soon as he is able post rehab. Treatment Plan Speech Therapy Treatment Plan: Continue Plan of Care Patient is more alert today than he has been in the past. Participation is good with decreased cuing. Treatment Duration: Sep 08, 2018 Frequency: 5 times per week Estimated Hrs Per Day: .5 hour per day Rehab Potential: Guarded Barriers to Learning: Patient has decreased memory. Pt/Family Agrees to Plan: Yes Safety Risks/Education Teaching Recipient: Patient Teaching Methods: Discussion Response to Teaching: Verbalize Understanding Education Topics Provided: Safety within his immediate environment. Time Speech Therapy Time In: 09:30 Speech Therapy Time Out: 10:00 Total Billed Time: 30 Billed Treatment Time 1, PATRICK Cleaning Sep 13, 2018 10:12
--- NOTE | 2018-09-13 10:40 | Cardiology Progress Note ---
Subjective Date Seen by Provider: Sep 13, 2018 Time Seen by Provider: 09:30 Subjective/Events-last exam Patient sitting up in chair, no new complaints. Review of Systems General: No Night Sweats, No Fatigue, No Malaise HEENT: No Visual Changes, No Dysphasia Pulmonary: No Dyspnea, No Cough Cardiovascular: No: Chest Pain, Palpitations, Orthopnea, Edema Gastrointestinal: No: Nausea, Vomiting, Abdominal Pain Genitourinary: No Frequency Musculoskeletal: No: neck pain, back pain Objective-Cardiology Exam Last Set of Vital Signs Vital Signs 09/13/18 09/13/18 05:40 08:11 Temp 99.4 Pulse 63 Resp 18 B/P (MAP) 145/62 (89) Pulse Ox 93 O2 Delivery Room Air Capillary Refill : I&O Intake and Output 09/13/18 00:00 Intake Total 500 ml Output Total 1090 ml Balance -590 ml Intake Oral 500 ml Output Urine Total 1090 ml General: Alert, Cooperative, No Acute Distress HEENT: Atraumatic, PERRLA, EOMI, Mucous Memb Moist/[place] Neck: Supple, No JVD Lungs: Clear to Auscultation Heart: Regular Rate, Normal S1, Normal S2 Abdomen: Normal Bowel Sounds, Soft, No Tenderness Extremities: No Cyanosis, No Edema, Other (Indwelling Patel catheter to DD) Skin: No Rashes Neuro: Normal Speech, Other (Impaired strength Left leg Impaired balance Mild dementia with memory loss) A/P-Cardiology Admission Diagnosis Generalized weakness PAF CAD HTN Assessment/Plan Generalized weakness, improving, workup has been negative. Continue his physical therapy Change in mental status, had previous hospitalization and evaluation in the ER for change in mental status in the past, workup at that time was negative. Continue with physical therapy Parkinson, started on Sinemet, followed by primary team Sick sinus syndrome, history of episodes of bradycardia with complete heart block, frequent PVCs, ventricular bigeminy and ventricular couplets, short PAT' s. Status post permanent pacemaker implantation April 2015, using a Linq3 device Advisa DR GONZALEZ, good sensing and capture. Continue to monitor History of nonsustained ventricular tachycardia, noted on interrogation on July 02, 2016, has been maintained on amiodarone 200 mg daily. Continue to monitor Paroxysmal atrial fibrillation, maintained on Eliquis. Continue to monitor [id number] score of 6, high risk, yearly risk of stroke without OAC is 9.8%. Maintained on Eliquis, continue to monitor Coronary artery disease, multiple interventions in the past, most recent cardiac catheterization done March 14, 2015 revealed extensive coronary artery disease, heavily calcified system, with 40 percent distal left main coronary artery stenosis. 3 stents in LAD proximally with 50-60 percent in-stent restenosis. Distal LAD had 95 percent stenosis followed by 80 percent stenosis long segment, very small artery not amendable to intervention. Total occlusion of the first obtuse marginal branch filled by collaterals. Patent stent in the proximal mid second OM branch with moderate disease in the distal proper circumflex artery. Patent stent in the RCA with 50 percent proximal right coronary artery stenosis and 50-60 distal right coronary artery stenosis. Asymptomatic, continue to monitor Stress test in July 2016 showed fixed defect involving the whole inferior wall and inferoapical segment with dilated left ventricle, inferior wall hypokinesia, Ejection fraction 54 percent. Echocardiogram showed ejection fraction 60 percent, dilated left atrium, mild to moderate mitral regurgitation and pulmonary artery pressure of 35 mmHg. continue to monitor Hypertension, controlled, continue to monitor Hyperlipidemia, I will continue to hold statin due to generalized weakness and monitor his response History of CVA in 2010, mild residual right sided weakness, episodes of confusion occurred over the last year where patient became confused and drove over once to [place] and once to [place]. It was felt that it was a global ischemic attack with confusion, workup at that time was negative. He was seen by Dr. Jiménez and started on Dilantin, the dose was increased by Dr. Damon, followed and managed by primary care physician Diabetes mellitus, followed and managed by primary care physician Carotid stenosis, Seen and followed by Dr Simmons, continue to monitor Ex-Tobaccoism, patient smokes pipe, he stopped smoking in October, encouraged to continue with smoking cessation Peripheral neuropathy, maintained on gabapentin. Continue on current medication , continue to monitor Sleep apnea, severe on sleep study in October 2015, does not use his machine. Clinical Quality Measures DVT/VTE Risk/Contraindication: Risk Factor Score Per Nursin RFS Level Per Nursing on Admit: 4+=Very High JOSELUIS CLINTON Sep 13, 2018 10:40
--- NOTE | 2018-09-13 10:46 | Physical Therapy Daily Note ---
PT Daily Note-Current Subjective Patient in recliner pre tx, agrees to PT, no complaints of pain. Appearance Patient in recliner post tx with nurse call, phone, tray, chair alarm on. Mental Status Patient Orientation: Person, Confused Transfers Therapy Code Descriptions/Definitions Functional [place] Measure: 0=Not Assessed/NA 4=Minimal Assistance 1=Total Assistance 5=Supervision or Setup 2=Maximal Assistance 6=Modified [place] 3=Moderate Assistance 7=Complete [place] Therapy Quality Codes: 6 Independent with activity with or without an assistive device 5 Patient requires set up or clean up by helper. Patient completes activity by themselves 4 Supervision or touching assist (CGA). [place] provide cues , steadying assist 3 The helper provides less than half the effort to complete the activity 2 The helper provides more than half the effort to complete the activity 1 Dependent. The helper does all the effort to complete an activity 7 Patient refused to complete or attempt activity 9 The patient did not perform the activity before the current illness or injury 88 Not attempted due to Medical conditions or safety concerns Supine to/from Sit: 4 Bed to/from Chair: 4 CGA, cues for hand placement and safety Weight Bearing Right Lower Extremity: Right Full Weight Bearing Left Lower Extremity: Left Full Weight Bearing Gait Training Gait (FIM): 4 Distance: 150'x2 Gait Level of Assist: 4 Gait Persons Needed: 1 Gait Assistive Device: FWW CGA, patient needs cues to stand behind the walker when turning. Still festinating gait but slightly bigger steps and less hesitant to initiate movement. Treatments transfers, ambulation Assessment Current Status: Fair Progress improved ambulation PT Short Term Goals Short Term Goals Time Frame: Sep 15, 2018 Transfers (B,C,W/C) (FIM): 4 Gait (FIM): 1 Gait Distance Comment: 20' Gait Level of Assist: 3 Gait Assistive Device: Walker Cristian Wheelchair Distance: 20' PT Blindstitch [place] Goals Jail Goals PT Jail Goals Time Frame: Sep 29, 2018 Transfers (B,C,W/C) (FIM): 4 Sit to Lying (QC): 4 Lying-Sitting on Side/Bed(QC): 4 Sit to Stand (QC): 4 Rollin Roll Left to Right (QC): 4 Chair/Hep-rd-Ehjrj Xfer(QC): 4 Car Transfer (QC): 4 Does the Patient Walk: Yes Gait (FIM): 2 Gait distance (FIM): 1=up to 49 ft Distance: 50' Walk 10 feet (QC): 3 Walk 10ft-Uneven Surface(QC): 3 Walk 50ft with 2 Turns (QC): 3 Walk 150 ft (QC): 0 Gait Level of Assist: 4 Gait Assistive Device: Walker Cristian Does the Pt use WC or Scooter?: Yes Wheelchair (FIM): 2 Wheelchair distance (FIM): 1=up to 49 ft Distance: 50 Wheelchair Level of Assist: 4 Wheel 50 feet with 2 turns (QC: 4 Stairs (FIM): 1 # of Steps: 1 1 Step (curb) (QC): 3 4 Steps (QC): 0 12 Steps (QC): 0 Stairs Level Of Assist: 4 Picking up an Object (QC): 0 PT Plan Problem List Problem List: Activity Tolerance, Functional Strength, Safety, Balance, Gait, Transfer, Bed Mobility, ROM Treatment/Plan Treatment Plan: Continue Plan of Care Treatment Plan: Bed Mobility, Concurrent Therapy, Education, Functional Activity Navya, Functional Strength, Group Therapy, Gait, Safety, Therapeutic Exercise, Transfers Treatment Duration: Sep 29, 2018 Frequency: At least 5 of 7 days/Wk (IRF) Estimated Hrs Per Day: 1.5 hours per day Patient and/or Family Agrees t: Yes Safety Risks/Education Patient Education: Gait Training, Transfer Techniques, Correct Positioning, Safety Issues Teaching Recipient: Patient Teaching Methods: Demonstration, Discussion Response to Teaching: Reinforcement Needed Time/GCodes Time In: 1030 Time Out: 1045 Total Billed Treatment Time: 15 Total Billed Treatment 1 visit GT 15' FABRICIO ALFONSO PT Sep 13, 2018 10:45
--- NOTE | 2018-09-13 11:39 | Occupational Ther Daily Note ---
OT Current Status-Daily Note Subjective Pt stated that he got some good rest this weekend. Appearance Pt was already in therapy shower room with PT for co-treatment, alert, and willing to work with OT. Mental Status/Objective Patient Orientation: Person, Place Therapy Code Descriptions/Definitions Functional [place] Measure: 0=Not Assessed/NA 4=Minimal Assistance 1=Total Assistance 5=Supervision or Setup 2=Maximal Assistance 6=Modified [place] 3=Moderate Assistance 7=Complete [place] Attachments: Patel Catheter ADL-Treatment Therapy Code Descriptions/Definitions Functional [place] Measure: 0=Not Assessed/NA 4=Minimal Assistance 1=Total Assistance 5=Supervision or Setup 2=Maximal Assistance 6=Modified [place] 3=Moderate Assistance 7=Complete [place] Therapy Quality Codes: 6 Independent with activity with or without an assistive device 5 Patient requires set up or clean up by helper. Patient completes activity by themselves 4 Supervision or touching assist (CGA). [place] provide cues , steadying assist 3 The helper provides less than half the effort to complete the activity 2 The helper provides more than half the effort to complete the activity 1 Dependent. The helper does all the effort to complete an activity 7 Patient refused to complete or attempt activity 9 The patient did not perform the activity before the current illness or injury 88 Not attempted due to Medical conditions or safety concerns Grooming (FIM): 4 (Pt combed hair with setup, SBA in wc needing assit in being able to reach back R side. ) Bathing (FIM): 4 (Pt able to wash all parts except buttocks. Pt perservarates during tasks, requires several verbal cues move on to next task. ) Upper Body (FIM): 5 (Setup and SBA.) Lower Body Dressing (FIM): 3 (Pt able to thread pants and don R sock. OT applied L sock due to Pt's extended time during tasks. Pt able to stand at grab bars with min assist and pull pants over hips with SBA.) Transfers (B, C, W/C) (FIM): 4 (Pt requires Min A due to safety issues and balance. ) Shower Transfer(FIM): 4 (Pt requires Min A from shower chair to wc for balance and safety issues. ) OT/PT co treatment of Pt with shower due to safety issues with balance in stance and ambulation. PT facilitated transfer training, mobility, and balance in stance while OT initiated ADL skills and educated pt. on safety during those tasks. See PT notes. Pt participated in a shower in therapy shower room. Pt requires shower chair, hand held shower sprayer, and grab bars. Pt perseverates washing same body parts. Pt requires cues to move to next task. Pt showed improvement on donning pants and ability to pull pants up over hips. OT pushes Pt to therapy gym. Other Treatment OT/ PT co-treat patient for standing balance with balloon activity for approximately 10 minutes. See PT notes.Pt requires rest break. Co-treatment ends. Pt participated in nuts and bolts activity while seated. Pt able to follow directions more easily today. Pt removes and replaces 7 nuts and bolts for fine motor skills and problem solving. Pt requires rest break. Pt participated in arm arc for crossing midline, moving rings L to R with L hand following directions to use only L hand. Pt moved rings from R to L with R hand requiring several verbal cues to not assist with L hand. Pt participated in armbike for approximately 6 minutes. Pt returned to room in wc with OT pushing chair. Pt transfers to chair with ST in room ready to work with him. All needs met. Education OT Patient Education: Correct positioning, Energy conservation, Exercise program, Modified ADL techniques, Progress toward Goal/Update tx plan, Purpose of tx/functional activities, Reviewed precautions, Rehab process, Safety issues , Transfer techniques, W/C management Teaching Recipient: Patient Teaching Methods: Demonstration, Discussion Response to Teaching: Verbalize Understanding, Return Demonstration OT Short Term Goals Short Term Goals Time Frame: Sep 15, 2018 Grooming(FIM): 5 Transfers (B,C,W/C) (FIM): 4 Toilet/Commode Transfer(FIM): 4 1=Demonstrate adherence to instructed precautions during ADL tasks. 2=Patient will verbalize/demonstrate understanding of assistive devices/ modifications for ADL. 3=Patient will improve strength/tolerance for activity to enable patient to perform ADL's. OT Chemistry Faculty Member Goals Jail Goals Time Frame: Sep 29, 2018 Eating (FIM): 6 Eating (QC): 6 Groomin Oral Hygiene (QC): 5 Bathing(FIM): 5 Shower/Bathe Self (QC): 5 Upper Body Dressing(FIM): 6 Upper Body Dressing (QC): 6 Lower Body Dressing(FIM): 6 Lower Body Dressing (QC): 6 On/Off Footwear (QC): 6 Toileting(FIM): 6 Toileting Hygiene (QC): 6 Toilet/Commode Transfer(FIM): 6 Toilet/Commode Transfer (QC): 6 Shower Transfer(FIM): 5 Additional Goals: 1-Demonstrate ADL Tasks, 2-Verbalize Understanding, 3- ImproveStrength/[place] 1=Demonstrate adherence to instructed precautions during ADL tasks. 2=Patient will verbalize/demonstrate understanding of assistive devices/ modifications for ADL. 3=Patient will improve strength/tolerance for activity to enable patient to perform ADL's. OT Education/Plan Problem List/Assessment Assessment: Decreased Activ Tolerance, Decreased Safety Aware, Decreased UE Strength, Impaired Cognition, Impaired Funct Balance, Impaired I ADL's, Impaired Self-Care Skills, Restricted Funct UE ROM Pt would benefit from skilled OT to increase his independence in basic self care Discharge Recommendations Plan/Recommendations: Continue POC Therapy D/C Recommendations: 24 hr Supervision Treatment Plan/Plan of Care Treatment,Training & Education: Yes Patient would benefit from OT for education, treatment and training to promote independence in ADL's, mobility, safety and/or upper extremity function for ADL' s. Plan of Care: ADL Retraining, Caregiver Training, Functional Mobility, Group Exercise/Act as Ind (education, exercise, socialization, funct activities, communication), UE Funct Exercise/Act, UE Neuromus Re-Ed/Coord, Visual/ Perceptual Retrain Treatment Duration: Sep 29, 2018 Frequency: At least 5 of 7 days/Wk (IRF) Estimated Hrs Per Day: 1.5 hours per day (1.25 to 1.5) Agreement: Yes Rehab Potential: Guarded Time/GCodes Start Time: 08:15 Stop Time: 09:40 Total Time Billed (hr/min): 85 Billed Treatment Time 1, ADL x 45 minutes, FA x 40 minutes. MILAD SIMON OT Sep 13, 2018 11:39
--- NOTE | 2018-09-13 12:00 | Cardiology Progress Note ---
Subjective Date Seen by Provider: Sep 13, 2018 Time Seen by Provider: 11:59 Subjective/Events-last exam Patient is laying down in a chair, feeling better. Denied any chest pain Review of Systems General: No Chills, No Night Sweats, No Fatigue, No Malaise, No Appetite, No Other HEENT: No Head Aches, No Visual Changes, No Eye Pain, No Ear Pain, No Dysphasia , No Sinus Congestion, No Post Nasal Drip, No Sore Throat, No Other Pulmonary: No Dyspnea, No Cough, No Pleuritic Chest Pain, No Other Objective-Cardiology Exam Last Set of Vital Signs Vital Signs 09/13/18 09/13/18 05:40 08:11 Temp 99.4 Pulse 63 Resp 18 B/P (MAP) 145/62 (89) Pulse Ox 93 O2 Delivery Room Air Capillary Refill : I&O Intake and Output 09/13/18 00:00 Intake Total 500 ml Output Total 1090 ml Balance -590 ml Intake Oral 500 ml Output Urine Total 1090 ml General: Alert, Cooperative, No Acute Distress HEENT: Atraumatic, PERRLA, EOMI, Mucous Memb Moist/[place] Neck: Supple, No JVD Lungs: Clear to Auscultation Heart: Regular Rate, Normal S1, Normal S2 Abdomen: Normal Bowel Sounds, Soft, No Tenderness Extremities: No Cyanosis, No Edema, Other (Indwelling Patel catheter to DD) Skin: No Rashes Neuro: Normal Speech, Other (Impaired strength Left leg Impaired balance Mild dementia with memory loss) Results Lab Laboratory Tests Test 09/12/18 15:49 09/12/18 20:30 09/13/18 05:43 09/13/18 06:16 Range/Units Glucometer 306 H 334 H 56 *L 88 70-110 MG/DL Test 09/13/18 10:59 Range/Units Glucometer 339 H 70-110 MG/DL A/P-Cardiology Admission Diagnosis Generalized weakness PAF CAD HTN Assessment/Plan Generalized weakness, improving, workup has been negative. Continue his physical therapy Change in mental status, had previous hospitalization and evaluation in the ER for change in mental status in the past, workup at that time was negative. Continue with physical therapy Parkinson, started on Sinemet, followed by primary team Sick sinus syndrome, history of episodes of bradycardia with complete heart block, frequent PVCs, ventricular bigeminy and ventricular couplets, short PAT' s. Status post permanent pacemaker implantation April 2015, using a [employer] device Advisa DR GONZALEZ, good sensing and capture. Continue to monitor History of nonsustained ventricular tachycardia, noted on interrogation on July 02, 2016, has been maintained on amiodarone 200 mg daily. Continue to monitor Paroxysmal atrial fibrillation, maintained on Eliquis. Continue to monitor [id number] score of 6, high risk, yearly risk of stroke without OAC is 9.8%. Maintained on Eliquis, continue to monitor Coronary artery disease, multiple interventions in the past, most recent cardiac catheterization done March 14, 2015 revealed extensive coronary artery disease, heavily calcified system, with 40 percent distal left main coronary artery stenosis. 3 stents in LAD proximally with 50-60 percent in-stent restenosis. Distal LAD had 95 percent stenosis followed by 80 percent stenosis long segment, very small artery not amendable to intervention. Total occlusion of the first obtuse marginal branch filled by collaterals. Patent stent in the proximal mid second OM branch with moderate disease in the distal proper circumflex artery. Patent stent in the RCA with 50 percent proximal right coronary artery stenosis and 50-60 distal right coronary artery stenosis. Asymptomatic, continue to monitor Stress test in July 2016 showed fixed defect involving the whole inferior wall and inferoapical segment with dilated left ventricle, inferior wall hypokinesia, Ejection fraction 54 percent. Echocardiogram showed ejection fraction 60 percent, dilated left atrium, mild to moderate mitral regurgitation and pulmonary artery pressure of 35 mmHg. continue to monitor Hypertension, controlled, continue to monitor Hyperlipidemia, I will continue to hold statin due to generalized weakness and monitor his response History of CVA in 2010, mild residual right sided weakness, episodes of confusion occurred over the last year where patient became confused and drove over once to [place] and once to [place]. It was felt that it was a global ischemic attack with confusion, workup at that time was negative. He was seen by Dr. Jiménez and started on Dilantin, the dose was increased by Dr. Damon, followed and managed by primary care physician Diabetes mellitus, having labile blood sugar, managed by primary care physician. Carotid stenosis, Seen and followed by Dr Simmons, continue to monitor Ex-Tobaccoism, patient smokes pipe, he stopped smoking in October, encouraged to continue with smoking cessation Peripheral neuropathy, maintained on gabapentin. Continue on current medication , continue to monitor Sleep apnea, severe on sleep study in October 2015, does not use his machine. Clinical Quality Measures DVT/VTE Risk/Contraindication: Risk Factor Score Per Nursin RFS Level Per Nursing on Admit: 4+=Very High SEBASTIÁN VALLE MD Sep 13, 2018 12:00 pm
[2018-09-13 15:33] VITALS: BP 148/56
[2018-09-13] MEDS: TAMSULOSIN 0.4 MG (FLOMAX) CAP PO SCH (16:31)
[2018-09-13] MEDS: meTOprolol SUCCINATE 100 MG (TOPROL XL) TAB PO SCH (20:12)
[2018-09-13] MEDS: PHENYTOIN 100 MG (DILANTIN) CAP PO SCH (20:12)
[2018-09-13] MEDS: inSUlin DETERMIR 1 UNIT/0.01 ML (LEVEMIR) CHARGE PER UNIT SQ SCH (20:13)
--- NOTE | 2018-09-13 21:06 | PM & R (SOAP) Progress Note ---
Subjective This was a face to face visit with the patient. Date Seen by Provider: Sep 13, 2018 Time Seen by Provider: 20:15 Subjective/Events-last exam Patient was seen in his room this evening Patient min assist for transfers Objective Physician Exam Last Set of Vital Signs Vital Signs Date Time Temp Pulse Resp B/P (MAP) Pulse Ox O2 Delivery O2 Flow Rate FiO2 09/13/18 15:33 96.5 59 14 148/56 (86) 97 Room Air Capillary Refill : I&O Intake and Output 09/13/18 00:00 Intake Total 500 ml Output Total 1090 ml Balance -590 ml Intake Oral 500 ml Output Urine Total 1090 ml General: Alert, Cooperative, No Acute Distress HEENT: Atraumatic, PERRLA, EOMI, Mucous Memb Moist/[place] Neck: Supple, No JVD Lungs: Clear to Auscultation Heart: Regular Rate, Normal S1, Normal S2 Abdomen: Normal Bowel Sounds, Soft, No Tenderness Extremities: No Cyanosis, No Edema, Other (Indwelling Patel catheter to DD) Skin: No Rashes Neuro: Normal Speech, Other (Impaired strength Left leg Impaired balance Mild dementia with memory loss) Results Lab Data Laboratory Tests 09/11/18 05:02: Glucometer 137H 09/11/18 10:49: Glucometer 198H 09/11/18 15:50: Glucometer 223H 09/11/18 20:30: Glucometer 333H 09/12/18 05:39: Glucometer 130H 09/12/18 11:07: Glucometer 147H 09/12/18 15:49: Glucometer 306H 09/12/18 20:30: Glucometer 334H 09/13/18 05:43: Glucometer 56*L 09/13/18 06:16: Glucometer 88 09/13/18 10:59: Glucometer 339H 09/13/18 15:31: Glucometer 257H 09/13/18 20:09: Glucometer 297H Assessment/Plan Assessment and Plan [place] Isabel on Sinemet Dementai DM better controlled CAD Constipation urinary incontinence PAF on Eliquis Hx of nonsustained V tach noted 2016 maintained on Amiodarone SSS s/p pacemaker Plan Continue PT/OT Team Conference 09-15-18 Co-Morbidities that are continuing to impact the rehab process: (include details ) YOVANY DANIELS MD Sep 13, 2018 21:06
[2018-09-14 05:02] VITALS: BP 175/82
[2018-09-14] MEDS: inSUlin ASPART (NovoLOG) 1 UNIT/0.01 ML (CHARGE PER UNIT) SC SCH ×4 (05:02→20:55)
[2018-09-14 05:07] LABS: HEMOGLOBIN 12.9 G/DL (13.3-17.7); MEAN PLATELET VOLUME 10.4 FL (7.4-10.4); RED BLOOD COUNT 4.01 10^6/uL (4.35-5.85); RED CELL DISTRIBUTION WIDTH 12.1 % (10.0-14.5); WHITE BLOOD COUNT 9.7 10^3/uL (4.3-11.0)
[2018-09-14 05:21] LABS: BUN/CREATININE RATIO 21; CARBON DIOXIDE 24 MMOL/L (21-32); CHLORIDE 105 MMOL/L (98-107); CREATININE SERUM 0.96 MG/DL (0.60-1.30); GFR ESTIMATED > 60; GLUCOSE 110 MG/DL (70-105); POTASSIUM 4.1 MMOL/L (3.6-5.0); SODIUM 139 MMOL/L (135-145)
[2018-09-14] MEDS: BETHANECHOL 25 MG (URECHOLINE) TAB PO SCH ×4 (06:12→20:15)
[2018-09-14] MEDS: MULTIVIT W/MINERALS TAB (THERAGRAN M) PO SCH (06:12)
[2018-09-14] MEDS: SINEMET 25/100 (CARBIDOPA/LEVODOPA) TAB PO SCH ×3 (06:12→16:06)
[2018-09-14] MEDS: glipiZIDE 5 MG (GLUCOTROL) TAB PO SCH (06:12)
--- NOTE | 2018-09-14 07:36 | Progress Note (SOAP) ---
Subjective Time Seen by a Provider: 07:34 Subjective/Events-last exam Patient has Patel out. We'll straight catheter one time. Sugars are better in the morning. Patient more alert. Patient getting around better. Improving patient Objective Exam Vital Signs Date Time Temp Pulse Resp B/P (MAP) Pulse Ox O2 Delivery O2 Flow Rate FiO2 09/14/18 05:02 97.1 60 18 175/82 (113) 96 Room Air 09/13/18 20:00 Room Air 09/13/18 15:33 96.5 59 14 148/56 (86) 97 Room Air 09/13/18 08:11 Room Air I & O 09/14/18 07:00 Intake Total 950 ml Output Total 1050 ml Balance -100 ml Capillary Refill : General Appearance: WD/WN HEENT: Normal ENT Inspection Neck: Normal Inspection, Non Tender Respiratory: Chest Non Tender, Lungs Clear, No Accessory Muscle Use, No Respiratory Distress Cardiovascular: Regular Rate, Rhythm, No Murmur Gastrointestinal: non tender, soft Results Lab Laboratory Tests 09/14/18 04:55 Laboratory Tests 09/13/18 10:59: Glucometer 339H 09/13/18 15:31: Glucometer 257H 09/13/18 20:09: Glucometer 297H 09/14/18 04:53: Glucometer 107 09/14/18 04:55: White Blood Count 9.7, Red Blood Count 4.01L, Hemoglobin 12.9L, Hematocrit 37L, Mean Corpuscular Volume 92, Mean Corpuscular Hemoglobin 32, Mean Corpuscular Hemoglobin Concent 35, Red Cell Distribution Width 12.1, Platelet Count 295, Mean Platelet Volume 10.4, Sodium Level 139, Potassium Level 4.1, Chloride Level 105, Carbon Dioxide Level 24, Anion Gap 10, Blood Urea Nitrogen 20H, Creatinine 0.96, Estimat Glomerular Filtration Rate > 60, BUN/Creatinine Ratio 21, Glucose Level 110H, Calcium Level 10.0 Assessment/Plan Assessment/Plan Assess & Plan/Chief Complaint Debility. Parkinson disease. Dementia. Mental status change improving. Diabetes. Increased the dose of Sinemet. . 09/10/18. Debility better. Parkinson disease. Dementia. Mental status change improved. Diabetes sugars still little bit high. Cogwheel motion of right arm much less. . 09/13/18. Debility better. Parkinson disease. Dementia. Diabetes patient hypoglycemic this morning. Patient still has Patel catheter in. . 09/14/18. Debility. Patel catheter removed. Straight catheter once. Dementia. Diabetes. Patient improving Clinical Quality Measures DVT/VTE Risk/Contraindication: Risk Factor Score Per Nursin RFS Level Per Nursing on Admit: 4+=Very High DENIZ KENT DO Sep 14, 2018 07:36
--- NOTE | 2018-09-14 08:01 | Cardiology Progress Note ---
Subjective Date Seen by Provider: Sep 14, 2018 Time Seen by Provider: 08:00 Subjective/Events-last exam Patient resting comfortably in bed, no new complaints. Denies any CP or dyspnea. Objective-Cardiology Exam Last Set of Vital Signs Vital Signs 09/14/18 05:02 Temp 97.1 Pulse 60 Resp 18 B/P (MAP) 175/82 (113) Pulse Ox 96 O2 Delivery Room Air Capillary Refill : I&O Intake and Output 09/14/18 00:00 Intake Total 1000 ml Output Total 850 ml Balance 150 ml Intake Oral 1000 ml Output Urine Total 850 ml Bladder Scan Volume Amount 134 ml 253 ml # Bowel Movements 3 General: Alert, Cooperative, No Acute Distress HEENT: Atraumatic, PERRLA, EOMI, Mucous Memb Moist/[place] Neck: Supple, No JVD Lungs: Clear to Auscultation Heart: Regular Rate, Normal S1, Normal S2 Abdomen: Normal Bowel Sounds, Soft, No Tenderness Extremities: No Cyanosis, No Edema, Other (Indwelling Patel catheter to DD) Skin: No Rashes Neuro: Normal Speech, Other (Impaired strength Left leg Impaired balance Mild dementia with memory loss) Results Lab Laboratory Tests 09/14/18 04:55 A/P-Cardiology Admission Diagnosis Generalized weakness PAF CAD HTN Assessment/Plan Generalized weakness, improving, workup has been negative. Continue his physical therapy Change in mental status, had previous hospitalization and evaluation in the ER for change in mental status in the past, workup at that time was negative. Continue with physical therapy Parkinson, started on Sinemet, followed by primary team Sick sinus syndrome, history of episodes of bradycardia with complete heart block, frequent PVCs, ventricular bigeminy and ventricular couplets, short PAT' s. Status post permanent pacemaker implantation April 2015, using a [employer]tronic device Advisa DR GONZALEZ, good sensing and capture. Continue to monitor History of nonsustained ventricular tachycardia, noted on interrogation on July 02, 2016, has been maintained on amiodarone 200 mg daily. Continue to monitor Paroxysmal atrial fibrillation, maintained on Eliquis. Continue to monitor [id number] score of 6, high risk, yearly risk of stroke without OAC is 9.8%. Maintained on Eliquis, continue to monitor Coronary artery disease, multiple interventions in the past, most recent cardiac catheterization done March 14, 2015 revealed extensive coronary artery disease, heavily calcified system, with 40 percent distal left main coronary artery stenosis. 3 stents in LAD proximally with 50-60 percent in-stent restenosis. Distal LAD had 95 percent stenosis followed by 80 percent stenosis long segment, very small artery not amendable to intervention. Total occlusion of the first obtuse marginal branch filled by collaterals. Patent stent in the proximal mid second OM branch with moderate disease in the distal proper circumflex artery. Patent stent in the RCA with 50 percent proximal right coronary artery stenosis and 50-60 distal right coronary artery stenosis. Asymptomatic, continue to monitor Stress test in July 2016 showed fixed defect involving the whole inferior wall and inferoapical segment with dilated left ventricle, inferior wall hypokinesia, Ejection fraction 54 percent. Echocardiogram showed ejection fraction 60 percent, dilated left atrium, mild to moderate mitral regurgitation and pulmonary artery pressure of 35 mmHg. continue to monitor Hypertension, controlled, continue to monitor Hyperlipidemia, I will continue to hold statin due to generalized weakness and monitor his response History of CVA in 2010, mild residual right sided weakness, episodes of confusion occurred over the last year where patient became confused and drove over once to [place] and once to [place]. It was felt that it was a global ischemic attack with confusion, workup at that time was negative. He was seen by Dr. Jiménez and started on Dilantin, the dose was increased by Dr. Damon, followed and managed by primary care physician Diabetes mellitus, having labile blood sugar, managed by primary care physician. Carotid stenosis, Seen and followed by Dr Simmons, continue to monitor Ex-Tobaccoism, patient smokes pipe, he stopped smoking in October, encouraged to continue with smoking cessation Peripheral neuropathy, maintained on gabapentin. Continue on current medication , continue to monitor Sleep apnea, severe on sleep study in October 2015, does not use his machine. Clinical Quality Measures DVT/VTE Risk/Contraindication: Risk Factor Score Per Nursin RFS Level Per Nursing on Admit: 4+=Very High JOSELUIS CILNTON Sep 14, 2018 08:01
[2018-09-14] MEDS: QUINAPRIL 40 MG PO SCH (08:18)
[2018-09-14] MEDS: FISH OIL 1200 MG CAPSULE PO SCH ×2 (08:18→20:16)
[2018-09-14 08:19] VITALS: BP 152/74
[2018-09-14] MEDS: APIXABAN 5 MG (ELIQUIS) TABLET PO SCH ×2 (08:19→20:15)
[2018-09-14] MEDS: AMIODARONE 200 MG (CORDARONE) TAB PO SCH (08:19)
[2018-09-14] MEDS: amLODIPine 10 MG (NORVASC) TAB PO SCH (08:19)
[2018-09-14] MEDS: DOCUSATE SODIUM 100 MG (COLACE) CAP PO SCH ×2 (08:19→19:24)
[2018-09-14] MEDS: GABAPENTIN 300 MG (NEURONTIN) CAP PO SCH ×2 (08:19→20:15)
--- NOTE | 2018-09-14 09:37 | Occupational Ther Daily Note ---
OT Current Status-Daily Note Subjective Pt states that he feels rested. Appearance Pt supine in bed, alert, and ready to work with OT. Mental Status/Objective Patient Orientation: Person, Place Therapy Code Descriptions/Definitions Functional [place] Measure: 0=Not Assessed/NA 4=Minimal Assistance 1=Total Assistance 5=Supervision or Setup 2=Maximal Assistance 6=Modified [place] 3=Moderate Assistance 7=Complete [place] ADL-Treatment Therapy Code Descriptions/Definitions Functional [place] Measure: 0=Not Assessed/NA 4=Minimal Assistance 1=Total Assistance 5=Supervision or Setup 2=Maximal Assistance 6=Modified [place] 3=Moderate Assistance 7=Complete [place] Therapy Quality Codes: 6 Independent with activity with or without an assistive device 5 Patient requires set up or clean up by helper. Patient completes activity by themselves 4 Supervision or touching assist (CGA). [place] provide cues , steadying assist 3 The helper provides less than half the effort to complete the activity 2 The helper provides more than half the effort to complete the activity 1 Dependent. The helper does all the effort to complete an activity 7 Patient refused to complete or attempt activity 9 The patient did not perform the activity before the current illness or injury 88 Not attempted due to Medical conditions or safety concerns Grooming (FIM): 4 (Pt requires verbal cues and setup. Pt requires assist in sequencing. Pt participates at sink side in wc. ) Oral Hygiene (QC): 4 Upper Body (FIM): 5 (Pt requires setup while seated in wc with SBA. ) Upper Body Dressing (QC): 5 Lower Body Dressing (FIM): 4 (Pt requires setup and extended time. Seems to have difficulty with L LE. Able to doff socks, don clean slipper socks and sweatpants while seated in wc, SBA. Pt stands with CGA and FWW for safety to pull up pants over hips. ) Lower Body Dressing (QC): 4 On/Off Footwear (QC): 5 (SBA to don slipper socks.) Transfers (B, C, W/C) (FIM): 4 (Pt transfers with CGA with walker.) Pt. in bed. Agrees to work with OT. Transfers supine-sit with min assist. Transfers to wheelchair using walker for sit-stand with CGA. Pt performs grooming tasks of brushing teeth and combing hair at wheelchair level at sink in bathroom. Pt requires verbal cues and one step directions. Pt initiates brushing teeth after instructing him that is what he is to do. Pt does not apply toothpaste, OT gives verbal cue to apply toothpaste. Pt applies large quantity of toothpaste. Pt finishes task with extended time and setup of water cup. Pt directed to comb hair. Pt beltran L side of head. OT gives verbal cue to comb R side of head. Pt makes a few swipes at R side and continues to comb on L side. Unable to end the task when finished. OT instructs Pt to wash face, Pt unable to initiate task. OT prepares washcloth and hands to Pt. Pt washes mouth and neatly folds washcloth and sets aside. OT instructs him to wash entire face , Pt picks up washcloth and washes most of face. OT pushes Pt to therapy gym. Other Treatment Pt participates in arm bike for 10 minutes with mod resistance for increased activity tolerance. Pt participates in sorting cards by color for fine motor skills and cognition. Pt has difficulty in following directions to match color stacks. Pt repeatedly needs verbal cues at beginning of task but towards end required fewer cues and made less mistakes. Pt had some difficulty in holding cards and dropped several throughout task. Pt participated in easy char conveyor tender task of inserting pegs into small mat for hand/eye coordination. OT returned Pt to room , transferred to recliner with CGA and all needs met. Education OT Patient Education: Correct positioning, Energy conservation, Exercise program, Modified ADL techniques, Progress toward Goal/Update tx plan, Purpose of tx/functional activities, Reviewed precautions, Rehab process, Safety issues , Transfer techniques, W/C management Teaching Recipient: Patient Teaching Methods: Demonstration, Discussion Response to Teaching: Verbalize Understanding, Return Demonstration, Reinforcement Needed OT Short Term Goals Short Term Goals Time Frame: Sep 15, 2018 Grooming(FIM): 5 Transfers (B,C,W/C) (FIM): 4 Toilet/Commode Transfer(FIM): 4 1=Demonstrate adherence to instructed precautions during ADL tasks. 2=Patient will verbalize/demonstrate understanding of assistive devices/ modifications for ADL. 3=Patient will improve strength/tolerance for activity to enable patient to perform ADL's. OT Jail Goals [employer] Specialist Goals Time Frame: Sep 29, 2018 Eating (FIM): 6 Eating (QC): 6 Groomin Oral Hygiene (QC): 5 Bathing(FIM): 5 Shower/Bathe Self (QC): 5 Upper Body Dressing(FIM): 6 Upper Body Dressing (QC): 6 Lower Body Dressing(FIM): 6 Lower Body Dressing (QC): 6 On/Off Footwear (QC): 6 Toileting(FIM): 6 Toileting Hygiene (QC): 6 Toilet/Commode Transfer(FIM): 6 Toilet/Commode Transfer (QC): 6 Shower Transfer(FIM): 5 Additional Goals: 1-Demonstrate ADL Tasks, 2-Verbalize Understanding, 3- ImproveStrength/[place] 1=Demonstrate adherence to instructed precautions during ADL tasks. 2=Patient will verbalize/demonstrate understanding of assistive devices/ modifications for ADL. 3=Patient will improve strength/tolerance for activity to enable patient to perform ADL's. OT Education/Plan Problem List/Assessment Assessment: Decreased Activ Tolerance, Decreased Safety Aware, Decreased UE Strength, Dependent Transfers, Impaired Bed Mobility, Impaired Cognition, Impaired I ADL's, Impaired Self-Care Skills Pt would benefit from skilled OT to increase his independence in basic self care Discharge Recommendations Plan/Recommendations: Continue POC Therapy D/C Recommendations: Home w/ Family Support, Scheduled Assistance Treatment Plan/Plan of Care Treatment,Training & Education: Yes Patient would benefit from OT for education, treatment and training to promote independence in ADL's, mobility, safety and/or upper extremity function for ADL' s. Plan of Care: ADL Retraining, Caregiver Training, Functional Mobility, Group Exercise/Act as Ind (education, exercise, socialization, funct activities, communication), UE Funct Exercise/Act, UE Neuromus Re-Ed/Coord, Visual/ Perceptual Retrain Treatment Duration: Sep 29, 2018 Frequency: At least 5 of 7 days/Wk (IRF) Estimated Hrs Per Day: 1.5 hours per day (1.25 to 1.5) Agreement: Yes Rehab Potential: Fair Time/GCodes Start Time: 08:15 Stop Time: 09:30 Total Time Billed (hr/min): 75 Billed Treatment Time 1, ADL x 30 minutes, EX x 15 minutes, FA, x 30 minutes. MILAD SIMON OT Sep 14, 2018 09:37
--- NOTE | 2018-09-14 10:06 | Progress Note-Urology ---
Progress Note-Urology Progress Notes/Assess & Plan Progress/Assessment & Plan DID NOT VOID YESTERDAY AND HAD TO BE STRAIGHT CATHED. VOIDED TODAY. TOLERATES MEDS WELL. KEEP SAME. PLAN PER ORDERS Final Diagnosis URINE RETENTION EVERTON GARCIA MD Sep 14, 2018 10:06
--- NOTE | 2018-09-14 10:56 | Speech Therapy Daily Note ---
Speech Daily Progress Note Subjective Date Seen by Provider: Sep 14, 2018 Time Seen by Provider: 00:30 Patient awake and alert today. Objective Patient completed simple linguistic task of describing items by their function at 70% with moderate verbal cues and/or repetitions. Assessment Assessment Current Status: Fair Progress Treatment Plan Continue Plan of Care Communication Comprehension: 2 Expression: 2 Social Cognition Social Interaction: 3 Problem Solvin Memory: 3 Speech Short Term Goals Short Term Goals Short Term Goals 1) Patient will complete simple memory tasks at 75% with minimal cues. 2) Patient will complete simple problem solving tasks at 75% with minimal cues. 3) Patient will complete simple 1 step directions with 75% with minimal cues. Speech Assisted Goals Assisted Goals Patient will improve cognitive-communication tasks for improved safety and independence. Speech-Plan Patient/Family Goals Patient/Family Goals: Patient plans to return home with his when he is medically stable. Treatment Plan Speech Therapy Treatment Plan: Continue Plan of Care Patient continues to require skilled ST services for safety awareness and independence for his return home. Treatment Duration: Sep 08, 2018 Frequency: 5 times per week Estimated Hrs Per Day: .5 hour per day Rehab Potential: Guarded Barriers to Learning: Patient has difficulty with retention of information. Pt/Family Agrees to Plan: Yes Safety Risks/Education Teaching Recipient: Patient Teaching Methods: Discussion Response to Teaching: Verbalize Understanding Education Topics Provided: Personal safety within his room. Time Speech Therapy Time In: 09:30 Speech Therapy Time Out: 10:00 Total Billed Time: 30 Billed Treatment Time 1[address] Sep 14, 2018 10:56
--- NOTE | 2018-09-14 11:00 | PM & R (SOAP) Progress Note ---
Subjective This was a face to face visit with the patient. Date Seen by Provider: Sep 12, 2018 Time Seen by Provider: 18:05 Subjective/Events-last exam Patient was seen in his room this evening Patient min assist for transfers Objective Physician Exam Last Set of Vital Signs Vital Signs Date Time Temp Pulse Resp B/P (MAP) Pulse Ox O2 Delivery O2 Flow Rate FiO2 09/14/18 08:20 Room Air 09/14/18 08:19 58 152/74 (100) 09/14/18 05:02 97.1 18 96 Capillary Refill : I&O Intake and Output 09/14/18 00:00 Intake Total 1000 ml Output Total 850 ml Balance 150 ml Intake Oral 1000 ml Output Urine Total 850 ml Bladder Scan Volume Amount 134 ml 253 ml # Bowel Movements 3 General: Alert, Cooperative, No Acute Distress HEENT: Atraumatic, PERRLA, EOMI, Mucous Memb Moist/[place] Neck: Supple, No JVD Lungs: Clear to Auscultation Heart: Regular Rate, Normal S1, Normal S2 Abdomen: Normal Bowel Sounds, Soft, No Tenderness Extremities: No Cyanosis, No Edema, Other (Indwelling Patel catheter to DD) Skin: No Rashes Neuro: Normal Speech, Other (Impaired strength Left leg Impaired balance Mild dementia with memory loss) Results Lab Data Laboratory Tests 09/11/18 15:50: Glucometer 223H 09/11/18 20:30: Glucometer 333H 09/12/18 05:39: Glucometer 130H 09/12/18 11:07: Glucometer 147H 09/12/18 15:49: Glucometer 306H 09/12/18 20:30: Glucometer 334H 09/13/18 05:43: Glucometer 56*L 09/13/18 06:16: Glucometer 88 09/13/18 10:59: Glucometer 339H 09/13/18 15:31: Glucometer 257H 09/13/18 20:09: Glucometer 297H 09/14/18 04:53: Glucometer 107 09/14/18 04:55: White Blood Count 9.7, Red Blood Count 4.01L, Hemoglobin 12.9L, Hematocrit 37L, Mean Corpuscular Volume 92, Mean Corpuscular Hemoglobin 32, Mean Corpuscular Hemoglobin Concent 35, Red Cell Distribution Width 12.1, Platelet Count 295, Mean Platelet Volume 10.4, Sodium Level 139, Potassium Level 4.1, Chloride Level 105, Carbon Dioxide Level 24, Anion Gap 10, Blood Urea Nitrogen 20H, Creatinine 0.96, Estimat Glomerular Filtration Rate > 60, BUN/Creatinine Ratio 21, Glucose Level 110H, Calcium Level 10.0 Assessment/Plan Assessment and Plan [place] D on sinemet Dementia DM meds being adjusted CAD Constipation Urinary incontinence-Gu following PAF on Eliquis HX of nonsustained V tach noted 2015 maintained on amiodarone SSS s/p pacemaker Continue PT/OT F/U with DR romero PCP and Team Conference 09-15-18 This note completed tardy due to difficulty accessing EMR with new ICON Co-Morbidities that are continuing to impact the rehab process: (include details ) YOVANY DANIELS MD Sep 14, 2018 11:00
--- NOTE | 2018-09-14 11:35 | Physical Therapy Daily Note ---
PT Daily Note-Current Subjective Patient in recliner pre tx, agrees to PT, no complaints of pain. Appearance Patient in bed post tx with nurse call, nurse in the room to perform a bladder scan. Mental Status Patient Orientation: Person, Confused Transfers Therapy Code Descriptions/Definitions Functional [place] Measure: 0=Not Assessed/NA 4=Minimal Assistance 1=Total Assistance 5=Supervision or Setup 2=Maximal Assistance 6=Modified [place] 3=Moderate Assistance 7=Complete [place] Therapy Quality Codes: 6 Independent with activity with or without an assistive device 5 Patient requires set up or clean up by helper. Patient completes activity by themselves 4 Supervision or touching assist (CGA). [place] provide cues , steadying assist 3 The helper provides less than half the effort to complete the activity 2 The helper provides more than half the effort to complete the activity 1 Dependent. The helper does all the effort to complete an activity 7 Patient refused to complete or attempt activity 9 The patient did not perform the activity before the current illness or injury 88 Not attempted due to Medical conditions or safety concerns Transfers (B, C, W/C) (FIM): 3 Scootin Rollin Supine to/from Sit: 3 Sit to/from Stand: 4 Bed to/from Chair: 4 Patient CGA for bed mobility and transfers but needs mod assist to get both legs into bed. Weight Bearing Right Lower Extremity: Right Full Weight Bearing Left Lower Extremity: Left Full Weight Bearing Gait Training Gait (FIM): 4 Distance: 150'x3 Gait Level of Assist: 4 Gait Persons Needed: 1 Gait Assistive Device: FWW CGA, patient needs cues for direction, will often get out from behind his walker when turning. Exercises Standing: Hip Abduction, Hamstring curls, Heel/toe raises, Marching, Mini squats Standing Reps: 15 LAQ alternating for 5 min NuStep Minutes: 15 NuStep Workload: 5 Treatments bed mobility and transfers, ambulation, functional strengthening Assessment Current Status: Fair Progress Patient easily distracted by other activity in therapy gym today. Patient needs frequent rest breaks due to fatigue. PT Short Term Goals Short Term Goals Time Frame: Sep 15, 2018 Transfers (B,C,W/C) (FIM): 4 Gait (FIM): 1 Gait Distance Comment: 20' Gait Level of Assist: 3 Gait Assistive Device: Walker Cristian Wheelchair Distance: 20' PT Snf Goals Estimation Manager Goals PT Estimation Manager Goals Time Frame: Sep 29, 2018 Transfers (B,C,W/C) (FIM): 4 Sit to Lying (QC): 4 Lying-Sitting on Side/Bed(QC): 4 Sit to Stand (QC): 4 Rollin Roll Left to Right (QC): 4 Chair/Ofy-ia-Otdvp Xfer(QC): 4 Car Transfer (QC): 4 Does the Patient Walk: Yes Gait (FIM): 2 Gait distance (FIM): 1=up to 49 ft Distance: 50' Walk 10 feet (QC): 3 Walk 10ft-Uneven Surface(QC): 3 Walk 50ft with 2 Turns (QC): 3 Walk 150 ft (QC): 0 Gait Level of Assist: 4 Gait Assistive Device: Walker Cristian Does the Pt use WC or Scooter?: Yes Wheelchair (FIM): 2 Wheelchair distance (FIM): 1=up to 49 ft Distance: 50 Wheelchair Level of Assist: 4 Wheel 50 feet with 2 turns (QC: 4 Stairs (FIM): 1 # of Steps: 1 1 Step (curb) (QC): 3 4 Steps (QC): 0 12 Steps (QC): 0 Stairs Level Of Assist: 4 Picking up an Object (QC): 0 PT Plan Problem List Problem List: Activity Tolerance, Functional Strength, Safety, Balance, Gait, Transfer, Bed Mobility, ROM Treatment/Plan Treatment Plan: Continue Plan of Care Treatment Plan: Bed Mobility, Concurrent Therapy, Education, Functional Activity [place], Functional Strength, Group Therapy, Gait, Safety, Therapeutic Exercise, Transfers Treatment Duration: Sep 29, 2018 Frequency: At least 5 of 7 days/Wk (IRF) Estimated Hrs Per Day: 1.5 hours per day Patient and/or Family Agrees t: Yes Safety Risks/Education Patient Education: Gait Training, Transfer Techniques, Correct Positioning, Safety Issues Teaching Recipient: Patient Teaching Methods: Demonstration, Discussion Response to Teaching: Reinforcement Needed Time/GCodes Time In: 1015 Time Out: 1130 Total Billed Treatment Time: 75 Total Billed Treatment 1 visit GT 20' FA 15' EX 40' FABRICIO ALFONSO PT Sep 14, 2018 11:34
--- NOTE | 2018-09-14 12:14 | PM & R (SOAP) Progress Note ---
Subjective This was a face to face visit with the patient. Date Seen by Provider: Sep 14, 2018 Time Seen by Provider: 11:50 Subjective/Events-last exam Patient was seen in his room this AM Discussed case with professional healthcare representative in to check on sacral pressure sore Accucheks noted Appreciate DR Whittaker note and orders Patel out and patient with TOV with some st cathing required.ST continues to work with cognitive issues Date Identified: Sep 14, 2018 Time Identified: 11:50 Medication Intervention: Meds adjusted to assist with TOV/Urinary retention Review of Systems Genitourinary: Retention Neurological: Weakness, Confusion Objective Physician Exam Last Set of Vital Signs Vital Signs Date Time Temp Pulse Resp B/P (MAP) Pulse Ox O2 Delivery O2 Flow Rate FiO2 09/14/18 08:20 Room Air 09/14/18 08:19 58 152/74 (100) 09/14/18 05:02 97.1 18 96 Capillary Refill : I&O Intake and Output 09/14/18 00:00 Intake Total 1000 ml Output Total 850 ml Balance 150 ml Intake Oral 1000 ml Output Urine Total 850 ml Bladder Scan Volume Amount 134 ml 253 ml # Bowel Movements 3 General: Alert, Cooperative, No Acute Distress HEENT: Atraumatic, PERRLA, EOMI, Mucous Memb Moist/[place] Neck: Supple, No JVD Lungs: Clear to Auscultation Heart: Regular Rate, Normal S1, Normal S2 Abdomen: Normal Bowel Sounds, Soft, No Tenderness Extremities: No Cyanosis, No Edema, Other (Indwelling Patel catheter to DD) Skin: No Rashes Neuro: Normal Speech, Other (Impaired strength Left leg Impaired balance Mild dementia with memory loss) Results Lab Data Laboratory Tests 09/11/18 15:50: Glucometer 223H 09/11/18 20:30: Glucometer 333H 09/12/18 05:39: Glucometer 130H 09/12/18 11:07: Glucometer 147H 09/12/18 15:49: Glucometer 306H 09/12/18 20:30: Glucometer 334H 09/13/18 05:43: Glucometer 56*L 09/13/18 06:16: Glucometer 88 09/13/18 10:59: Glucometer 339H 09/13/18 15:31: Glucometer 257H 09/13/18 20:09: Glucometer 297H 09/14/18 04:53: Glucometer 107 09/14/18 04:55: White Blood Count 9.7, Red Blood Count 4.01L, Hemoglobin 12.9L, Hematocrit 37L, Mean Corpuscular Volume 92, Mean Corpuscular Hemoglobin 32, Mean Corpuscular Hemoglobin Concent 35, Red Cell Distribution Width 12.1, Platelet Count 295, Mean Platelet Volume 10.4, Sodium Level 139, Potassium Level 4.1, Chloride Level 105, Carbon Dioxide Level 24, Anion Gap 10, Blood Urea Nitrogen 20H, Creatinine 0.96, Estimat Glomerular Filtration Rate > 60, BUN/Creatinine Ratio 21, Glucose Level 110H, Calcium Level 10.0 09/14/18 11:43: Glucometer 156H Assessment/Plan Assessment and Plan Nasra Isabel on sinemet Dementia multifactorial DM better controlled CAD Constipation Urinary retention having TOV with Meds and on board PAF on Eliquis HX of nonsustained V Tach noted 2015 maintained on Amiodarone SSS s/p pacemaker Plan Continue PT/OT/ST Continue TOV Team Conference tomorrow Co-Morbidities that are continuing to impact the rehab process: (include details ) YOVANY DANIELS MD Sep 14, 2018 12:14
[2018-09-14] MEDS: TAMSULOSIN 0.4 MG (FLOMAX) CAP PO SCH (16:06)
[2018-09-14 16:43] VITALS: BP 163/71
[2018-09-14] MEDS: PHENYTOIN 100 MG (DILANTIN) CAP PO SCH (20:15)
[2018-09-14] MEDS: meTOprolol SUCCINATE 100 MG (TOPROL XL) TAB PO SCH (20:15)
[2018-09-14] MEDS: inSUlin DETERMIR 1 UNIT/0.01 ML (LEVEMIR) CHARGE PER UNIT SQ SCH (20:55)
[2018-09-15 05:04] VITALS: BP 166/82
[2018-09-15] MEDS: inSUlin ASPART (NovoLOG) 1 UNIT/0.01 ML (CHARGE PER UNIT) SC SCH ×4 (05:47→21:13)
[2018-09-15] MEDS: SINEMET 25/100 (CARBIDOPA/LEVODOPA) TAB PO SCH ×3 (06:19→21:04)
[2018-09-15] MEDS: glipiZIDE 5 MG (GLUCOTROL) TAB PO SCH (06:19)
[2018-09-15] MEDS: BETHANECHOL 25 MG (URECHOLINE) TAB PO SCH ×4 (06:19→21:03)
[2018-09-15] MEDS: MULTIVIT W/MINERALS TAB (THERAGRAN M) PO SCH (06:19)
--- NOTE | 2018-09-15 07:41 | Progress Note (SOAP) ---
Subjective Time Seen by a Provider: 07:39 Subjective/Events-last exam Patient walking better. Patient eating good. Patient did have to be straight catheter one time last night area Patient is urinating. Blood sugar this morning is 80. Patient did walk with 1 assist Objective Exam Vital Signs Date Time Temp Pulse Resp B/P (MAP) Pulse Ox O2 Delivery O2 Flow Rate FiO2 09/15/18 05:04 97.4 61 20 166/82 (110) 96 Room Air 09/14/18 20:46 Room Air 09/14/18 16:43 98.6 55 18 163/71 (101) 95 Room Air 09/14/18 08:20 Room Air 09/14/18 08:19 58 152/74 (100) I & O 09/15/18 07:00 Intake Total 1000 ml Output Total 1375 ml Balance -375 ml Capillary Refill : General Appearance: No Apparent Distress, WD/WN Neck: Normal Inspection Respiratory: Lungs Clear, No Accessory Muscle Use, No Respiratory Distress Cardiovascular: Regular Rate, Rhythm, No Murmur Gastrointestinal: non tender, soft Results Lab Laboratory Tests 09/14/18 11:43: Glucometer 156H 09/14/18 15:58: Glucometer 233H 09/14/18 20:49: Glucometer 313H 09/15/18 04:59: Glucometer 88 Assessment/Plan Assessment/Plan Assess & Plan/Chief Complaint Debility. Parkinson disease. Dementia. Mental status change improving. Diabetes. Increased the dose of Sinemet. . 09/10/18. Debility better. Parkinson disease. Dementia. Mental status change improved. Diabetes sugars still little bit high. Cogwheel motion of right arm much less. . 09/13/18. Debility better. Parkinson disease. Dementia. Diabetes patient hypoglycemic this morning. Patient still has Patel catheter in. . 09/14/18. Debility. Patel catheter removed. Straight catheter once. Dementia. Diabetes. Patient improving. . 09/15/18. Debility. Dementia. Diabetes. Patient walking better. Patient standing up straight. Patient still has cogwheel motion of the right upper arm. Patient talking better. Patient improving Clinical Quality Measures DVT/VTE Risk/Contraindication: Risk Factor Score Per Nursin RFS Level Per Nursing on Admit: 4+=Very High DENIZ KENT DO Sep 15, 2018 07:41
--- NOTE | 2018-09-15 08:23 | PM & R (SOAP) Progress Note ---
Subjective This was a face to face visit with the patient. Date Seen by Provider: Sep 15, 2018 Time Seen by Provider: 07:45 Subjective/Events-last exam Patient was seen in his room this AM. Patient min assist for transfers Objective Physician Exam Last Set of Vital Signs Vital Signs Date Time Temp Pulse Resp B/P (MAP) Pulse Ox O2 Delivery O2 Flow Rate FiO2 09/15/18 05:04 97.4 61 20 166/82 (110) 96 Room Air Capillary Refill : I&O Intake and Output 09/15/18 00:00 Intake Total 900 ml Output Total 1400 ml Balance -500 ml Intake Oral 900 ml Output Urine Total 1400 ml Bladder Scan Volume Amount 540 ml 292 ml 268 ml # Urine Diapers 3 General: Alert, Cooperative, No Acute Distress HEENT: Atraumatic, PERRLA, EOMI, Mucous Memb Moist/[place] Neck: Supple, No JVD Lungs: Clear to Auscultation Heart: Regular Rate, Normal S1, Normal S2 Abdomen: Normal Bowel Sounds, Soft, No Tenderness Extremities: No Cyanosis, No Edema, Other (Indwelling Patel catheter to DD) Skin: No Rashes Neuro: Normal Speech, Other (Impaired strength Left leg Impaired balance Mild dementia with memory loss) Results Lab Data Laboratory Tests 09/12/18 11:07: Glucometer 147H 09/12/18 15:49: Glucometer 306H 09/12/18 20:30: Glucometer 334H 09/13/18 05:43: Glucometer 56*L 09/13/18 06:16: Glucometer 88 09/13/18 10:59: Glucometer 339H 09/13/18 15:31: Glucometer 257H 09/13/18 20:09: Glucometer 297H 09/14/18 04:53: Glucometer 107 09/14/18 04:55: White Blood Count 9.7, Red Blood Count 4.01L, Hemoglobin 12.9L, Hematocrit 37L, Mean Corpuscular Volume 92, Mean Corpuscular Hemoglobin 32, Mean Corpuscular Hemoglobin Concent 35, Red Cell Distribution Width 12.1, Platelet Count 295, Mean Platelet Volume 10.4, Sodium Level 139, Potassium Level 4.1, Chloride Level 105, Carbon Dioxide Level 24, Anion Gap 10, Blood Urea Nitrogen 20H, Creatinine 0.96, Estimat Glomerular Filtration Rate > 60, BUN/Creatinine Ratio 21, Glucose Level 110H, Calcium Level 10.0 09/14/18 11:43: Glucometer 156H 09/14/18 15:58: Glucometer 233H 09/14/18 20:49: Glucometer 313H 09/15/18 04:59: Glucometer 88 Assessment/Plan Assessment and Plan Nasra D on Sinemet Dementia multifactorial DM better controlled CAD Constipation Urinary retention having TOV following PAF on Eliquis Hx of nonsustained V tach noted 2016 maintained on Amiodarone SSS s/p pacemaker Plan Continue PT/OT Team Conference later today-see report for full functional update and POC and ELOS Co-Morbidities that are continuing to impact the rehab process: (include details ) YOVANY DANIELS MD Sep 15, 2018 08:23
--- NOTE | 2018-09-15 08:23 | Progress Note-Urology ---
Progress Note-Urology Progress Notes/Assess & Plan Progress/Assessment & Plan VOIDED SOME ON OWN WITH INCONTINENCE. NEEDED ISC TWICE YETERDAY FOR 500CC. TOLERATES URECHOLINE WELL, WE WILL INCREASE TO [address] KENT Final Diagnosis URINE RETENTION EVERTON GARCIA MD Sep 15, 2018 08:23
--- NOTE | 2018-09-15 08:40 | Cardiology Progress Note ---
Subjective Date Seen by Provider: Sep 15, 2018 Time Seen by Provider: 08:10 Subjective/Events-last exam Patient up walking with PT, no new complaints. Denies any chest pain or dyspnea. Objective-Cardiology Exam Last Set of Vital Signs Vital Signs 09/15/18 05:04 Temp 97.4 Pulse 61 Resp 20 B/P (MAP) 166/82 (110) Pulse Ox 96 O2 Delivery Room Air Capillary Refill : I&O Intake and Output 09/15/18 00:00 Intake Total 900 ml Output Total 1400 ml Balance -500 ml Intake Oral 900 ml Output Urine Total 1400 ml Bladder Scan Volume Amount 540 ml 292 ml 268 ml # Urine Diapers 3 General: Alert, Cooperative, No Acute Distress HEENT: Atraumatic, PERRLA, EOMI, Mucous Memb Moist/[place] Neck: Supple, No JVD Lungs: Clear to Auscultation Heart: Regular Rate, Normal S1, Normal S2 Abdomen: Normal Bowel Sounds, Soft, No Tenderness Extremities: No Cyanosis, No Edema, Other (Indwelling Patel catheter to DD) Skin: No Rashes Neuro: Normal Speech, Other (Impaired strength Left leg Impaired balance Mild dementia with memory loss) A/P-Cardiology Admission Diagnosis Generalized weakness PAF CAD HTN Assessment/Plan Generalized weakness, improving, workup has been negative. Continue his physical therapy Change in mental status, had previous hospitalization and evaluation in the ER for change in mental status in the past, workup at that time was negative. Continue with physical therapy Parkinson, started on Sinemet, followed by primary team Sick sinus syndrome, history of episodes of bradycardia with complete heart block, frequent PVCs, ventricular bigeminy and ventricular couplets, short PAT' s. Status post permanent pacemaker implantation April 2015, using a [employer] device Advisa DR GONZALEZ, good sensing and capture. Continue to monitor History of nonsustained ventricular tachycardia, noted on interrogation on July 02, 2016, has been maintained on amiodarone 200 mg daily. Continue to monitor Paroxysmal atrial fibrillation, maintained on Eliquis. Continue to monitor [id number] score of 6, high risk, yearly risk of stroke without OAC is 9.8%. Maintained on Eliquis, continue to monitor Coronary artery disease, multiple interventions in the past, most recent cardiac catheterization done March 14, 2015 revealed extensive coronary artery disease, heavily calcified system, with 40 percent distal left main coronary artery stenosis. 3 stents in LAD proximally with 50-60 percent in-stent restenosis. Distal LAD had 95 percent stenosis followed by 80 percent stenosis long segment, very small artery not amendable to intervention. Total occlusion of the first obtuse marginal branch filled by collaterals. Patent stent in the proximal mid second OM branch with moderate disease in the distal proper circumflex artery. Patent stent in the RCA with 50 percent proximal right coronary artery stenosis and 50-60 distal right coronary artery stenosis. Asymptomatic, continue to monitor Stress test in July 2016 showed fixed defect involving the whole inferior wall and inferoapical segment with dilated left ventricle, inferior wall hypokinesia, Ejection fraction 54 percent. Echocardiogram showed ejection fraction 60 percent, dilated left atrium, mild to moderate mitral regurgitation and pulmonary artery pressure of 35 mmHg. continue to monitor Hypertension, controlled, continue to monitor Hyperlipidemia, I will continue to hold statin due to generalized weakness and monitor his response History of CVA in 2010, mild residual right sided weakness, episodes of confusion occurred over the last year where patient became confused and drove over once to [place] and once to [place]. It was felt that it was a global ischemic attack with confusion, workup at that time was negative. He was seen by Dr. Jiménez and started on Dilantin, the dose was increased by Dr. Damon, followed and managed by primary care physician Diabetes mellitus, having labile blood sugar, managed by primary care physician. Carotid stenosis, Seen and followed by Dr Simmons, continue to monitor Ex-Tobaccoism, patient smokes pipe, he stopped smoking in October, encouraged to continue with smoking cessation Peripheral neuropathy, maintained on gabapentin. Continue on current medication , continue to monitor Sleep apnea, severe on sleep study in October 2015, does not use his machine. Clinical Quality Measures DVT/VTE Risk/Contraindication: Risk Factor Score Per Nursin RFS Level Per Nursing on Admit: 4+=Very High JOSELUIS CLINTON Sep 15, 2018 08:40
--- NOTE | 2018-09-15 08:55 | Physical Therapy Daily Note ---
PT Daily Note-Current Subjective Pt. pleasant and cooperative, states he isnt in any pain. Can remember where 2 of his children are but not the 3rd Pain Numeric Pain Scale: 0-No Pain Mental Status Patient Orientation: Person, Place Transfers Therapy Code Descriptions/Definitions Functional [place] Measure: 0=Not Assessed/NA 4=Minimal Assistance 1=Total Assistance 5=Supervision or Setup 2=Maximal Assistance 6=Modified [place] 3=Moderate Assistance 7=Complete [place] Therapy Quality Codes: 6 Independent with activity with or without an assistive device 5 Patient requires set up or clean up by helper. Patient completes activity by themselves 4 Supervision or touching assist (CGA). [place] provide cues , steadying assist 3 The helper provides less than half the effort to complete the activity 2 The helper provides more than half the effort to complete the activity 1 Dependent. The helper does all the effort to complete an activity 7 Patient refused to complete or attempt activity 9 The patient did not perform the activity before the current illness or injury 88 Not attempted due to Medical conditions or safety concerns Transfers (B, C, W/C) (FIM): 5 Scootin Rollin Supine to/from Sit: 5 Sit to/from Stand: 5 requires instruction for use of hands and safe TRFs in out chair as well as car. Weight Bearing Right Lower Extremity: Right Full Weight Bearing Left Lower Extremity: Left Full Weight Bearing Gait Training Does the Patient Walk?: Yes Gait (FIM): 4 Distance (FIM): 3=150 ft (150x3) Gait Level of Assist: 4 Gait Persons Needed: 1 Gait Assistive Device: FWW stiff gait, min to no trunk rotation, head down, needs instruction to maneuver walker and turn effectively Stair Training Stair Training: Handrails/: 2 handrails Stairs (FIM): 2 #of Steps: 4 Stairs: Pattern: Reciprocal Level of Assist: 4 needs instruction for putting full foot on step Exercises Supine Ex: Bridging, Ankle pumps, Rolling, Heel Slides, Short Arc Quads, Scooting, Straight leg raise, Hip abd/add Supine Reps: 15 Seated Therapy Exercises: Ankle pumps, Sit to stand, Long arc quads, Hip flexion Seated Reps: 10 NuStep Minutes: 12 NuStep Workload: 3 Treatments emphasis on sit to stand safety and balance Assessment Current Status: Good Progress slow progress, improved mobility PT Short Term Goals Short Term Goals Time Frame: Sep 15, 2018 Transfers (B,C,W/C) (FIM): 4 Gait (FIM): 1 Gait Distance Comment: 20' Gait Level of Assist: 3 Gait Assistive Device: Walker Cristian Wheelchair Distance: 20' PT Fci Goals Fci Goals PT Fci Goals Time Frame: Sep 29, 2018 Transfers (B,C,W/C) (FIM): 4 Sit to Lying (QC): 4 Lying-Sitting on Side/Bed(QC): 4 Sit to Stand (QC): 4 Rollin Roll Left to Right (QC): 4 Chair/[id number]-Bfnvl Xfer(QC): 4 Car Transfer (QC): 4 Does the Patient Walk: Yes Gait (FIM): 2 Gait distance (FIM): 1=up to 49 ft Distance: 50' Walk 10 feet (QC): 3 Walk 10ft-Uneven Surface(QC): 3 Walk 50ft with 2 Turns (QC): 3 Walk 150 ft (QC): 0 Gait Level of Assist: 4 Gait Assistive Device: Walker Cristian Does the Pt use WC or Scooter?: Yes Wheelchair (FIM): 2 Wheelchair distance (FIM): 1=up to 49 ft Distance: 50 Wheelchair Level of Assist: 4 Wheel 50 feet with 2 turns (QC: 4 Stairs (FIM): 1 # of Steps: 1 1 Step (curb) (QC): 3 4 Steps (QC): 0 12 Steps (QC): 0 Stairs Level Of Assist: 4 Picking up an Object (QC): 0 PT Plan Treatment/Plan Treatment Plan: Continue Plan of Care Treatment Plan: Bed Mobility, Concurrent Therapy, Education, Functional Activity Navya, Functional Strength, Group Therapy, Gait, Safety, Therapeutic Exercise, Transfers Treatment Duration: Sep 29, 2018 Frequency: At least 5 of 7 days/Wk (IRF) Estimated Hrs Per Day: 1.5 hours per day Patient and/or Family Agrees t: Yes Safety Risks/Education Patient Education: Gait Training, Transfer Techniques, Steps, Disease Process, Safety Issues Teaching Recipient: Patient Teaching Methods: Demonstration, Discussion Response to Teaching: Verbalize Understanding, Return Demonstration, Reinforcement Needed Time/GCodes Time In: 800 Time Out: 900 Total Billed Treatment Time: 60 Total Billed Treatment 1,FA25m,GT15m,EX20m G Codes Necessary: No SANDEE BENNETT CEMENT MASON APPRENTICE Sep 15, 2018 08:55
[2018-09-15] MEDS: DOCUSATE SODIUM 100 MG (COLACE) CAP PO SCH ×2 (09:08→21:03)
[2018-09-15] MEDS: amLODIPine 10 MG (NORVASC) TAB PO SCH (09:48)
[2018-09-15] MEDS: APIXABAN 5 MG (ELIQUIS) TABLET PO SCH ×2 (09:48→21:04)
[2018-09-15] MEDS: GABAPENTIN 300 MG (NEURONTIN) CAP PO SCH ×2 (09:49→21:03)
[2018-09-15] MEDS: AMIODARONE 200 MG (CORDARONE) TAB PO SCH (09:49)
[2018-09-15] MEDS: FISH OIL 1200 MG CAPSULE PO SCH ×3 (09:50→21:09)
[2018-09-15] MEDS: QUINAPRIL 40 MG PO SCH (09:51)
--- NOTE | 2018-09-15 11:33 | Speech Therapy Daily Note ---
Speech Daily Progress Note Subjective Date Seen by Provider: Sep 15, 2018 Time Seen by Provider: 00:30 Patient awake and alert while resting in his recliner. Objective Patient completed a memory task of two item comparisons with 60% accuracy given moderate to maximum verbal cues and/or repetitions. Treatment Plan Continue Plan of Care Communication Comprehension: 2 Expression: 2 Social Cognition Social Interaction: 3 Problem Solvin Memory: 3 Speech Short Term Goals Short Term Goals Short Term Goals 1) Patient will complete simple memory tasks at 75% with minimal cues. 2) Patient will complete simple problem solving tasks at 75% with minimal cues. 3) Patient will complete simple 1 step directions with 75% with minimal cues. Speech Energy Director Goals Retirement Goals Patient will improve cognitive-communication tasks for improved safety and independence. Speech-Plan Patient/Family Goals Patient/Family Goals: Patient plans to return home as soon as he completes his rehab. Treatment Plan Speech Therapy Treatment Plan: Continue Plan of Care Patient is making progress with goals. Treatment Duration: Sep 08, 2018 Frequency: 5 times per week Estimated Hrs Per Day: .5 hour per day Rehab Potential: Fair Barriers to Learning: Memory deficit as well as falling asleep very easily. Pt/Family Agrees to Plan: Yes Safety Risks/Education Teaching Recipient: Patient Teaching Methods: Discussion Response to Teaching: Verbalize Understanding Education Topics Provided: Safety within his room. Time Speech Therapy Time In: 09:30 Speech Therapy Time Out: 10:00 Total Billed Time: 30 Billed Treatment Time 1DON[address] Sep 15, 2018 11:33
--- NOTE | 2018-09-15 13:56 | Physical Therapy Daily Note ---
PT Daily Note-Current Subjective Pt. asleep in recliner, agrees to Rx when awakened. Pain Numeric Pain Scale: 0-No Pain Mental Status Patient Orientation: Person, Place Transfers Therapy Code Descriptions/Definitions Functional [place] Measure: 0=Not Assessed/NA 4=Minimal Assistance 1=Total Assistance 5=Supervision or Setup 2=Maximal Assistance 6=Modified [place] 3=Moderate Assistance 7=Complete [place] Therapy Quality Codes: 6 Independent with activity with or without an assistive device 5 Patient requires set up or clean up by helper. Patient completes activity by themselves 4 Supervision or touching assist (CGA). [place] provide cues , steadying assist 3 The helper provides less than half the effort to complete the activity 2 The helper provides more than half the effort to complete the activity 1 Dependent. The helper does all the effort to complete an activity 7 Patient refused to complete or attempt activity 9 The patient did not perform the activity before the current illness or injury 88 Not attempted due to Medical conditions or safety concerns all sit to stand SBA and cuing for safety and approach with turns etc. Weight Bearing Right Lower Extremity: Right Full Weight Bearing Left Lower Extremity: Left Full Weight Bearing Gait Training Does the Patient Walk?: Yes (a) Gait Assistive Device: FWW 200ft, 100ft, FWW, shuffled gait, narrow, MIRIAN, head down, min trunk rotation, wide turns, festination at tight areas and with turns, cued and instructed for all Assessment Current Status: Good Progress PT Short Term Goals Short Term Goals Time Frame: Sep 15, 2018 Transfers (B,C,W/C) (FIM): 4 Gait (FIM): 1 Gait Distance Comment: 20' Gait Level of Assist: 3 Gait Assistive Device: Walker Cristian Wheelchair Distance: 20' PT Senior Care Goals [employer] Supervisor Goals PT Senior Care Goals Time Frame: Sep 29, 2018 Transfers (B,C,W/C) (FIM): 4 Sit to Lying (QC): 4 Lying-Sitting on Side/Bed(QC): 4 Sit to Stand (QC): 4 Rollin Roll Left to Right (QC): 4 Chair/Fka-wl-Yyffo Xfer(QC): 4 Car Transfer (QC): 4 Does the Patient Walk: Yes Gait (FIM): 2 Gait distance (FIM): 1=up to 49 ft Distance: 50' Walk 10 feet (QC): 3 Walk 10ft-Uneven Surface(QC): 3 Walk 50ft with 2 Turns (QC): 3 Walk 150 ft (QC): 0 Gait Level of Assist: 4 Gait Assistive Device: Walker Cristian Does the Pt use WC or Scooter?: Yes Wheelchair (FIM): 2 Wheelchair distance (FIM): 1=up to 49 ft Distance: 50 Wheelchair Level of Assist: 4 Wheel 50 feet with 2 turns (QC: 4 Stairs (FIM): 1 # of Steps: 1 1 Step (curb) (QC): 3 4 Steps (QC): 0 12 Steps (QC): 0 Stairs Level Of Assist: 4 Picking up an Object (QC): 0 PT Plan Treatment/Plan Treatment Plan: Continue Plan of Care Treatment Plan: Bed Mobility, Concurrent Therapy, Education, Functional Activity Navya, Functional Strength, Group Therapy, Gait, Safety, Therapeutic Exercise, Transfers Treatment Duration: Sep 29, 2018 Frequency: At least 5 of 7 days/Wk (IRF) Estimated Hrs Per Day: 1.5 hours per day Patient and/or Family Agrees t: Yes Safety Risks/Education Patient Education: Gait Training, Transfer Techniques, Disease Process, Safety Issues Teaching Recipient: Patient Teaching Methods: Demonstration, Discussion Response to Teaching: Verbalize Understanding, Return Demonstration, Reinforcement Needed Time/GCodes Time In: 1330 Time Out: 1400 Total Billed Treatment Time: 30 Total Billed Treatment 1,GT30m G Codes Necessary: SANDEE Avilez TRACK WELDER Sep 15, 2018 13:56
--- NOTE | 2018-09-15 14:14 | Occupational Ther Daily Note ---
OT Current Status-Daily Note Subjective No pain reported. Appearance Pt in recliner, dressed with shoes on, willing to work with OT. Mental Status/Objective Patient Orientation: Person, Place Therapy Code Descriptions/Definitions Functional [place] Measure: 0=Not Assessed/NA 4=Minimal Assistance 1=Total Assistance 5=Supervision or Setup 2=Maximal Assistance 6=Modified [place] 3=Moderate Assistance 7=Complete [place] ADL-Treatment Therapy Code Descriptions/Definitions Functional [place] Measure: 0=Not Assessed/NA 4=Minimal Assistance 1=Total Assistance 5=Supervision or Setup 2=Maximal Assistance 6=Modified [place] 3=Moderate Assistance 7=Complete [place] Therapy Quality Codes: 6 Independent with activity with or without an assistive device 5 Patient requires set up or clean up by helper. Patient completes activity by themselves 4 Supervision or touching assist (CGA). [place] provide cues , steadying assist 3 The helper provides less than half the effort to complete the activity 2 The helper provides more than half the effort to complete the activity 1 Dependent. The helper does all the effort to complete an activity 7 Patient refused to complete or attempt activity 9 The patient did not perform the activity before the current illness or injury 88 Not attempted due to Medical conditions or safety concerns Grooming (FIM): 4 (Pt performs grooming of brushing teeth and hair at wc level at sink side. Pt requires many verbal cues to initiate. Pt perseverates during both tasks and OT has to instruct to end tasks. ) Oral Hygiene (QC): 4 Bathing (FIM): 4 (Pt performs task of bathing in shower in room. Pt requires many cues to initiate bathing different parts of the body due to his continued perservataion of task. Pt requires assist to wash rear roderick area while standing at grab bars. ) Shower/Bathe Self (QC): 4 Upper Body (FIM): 5 (Pt able to doff and don shirt while seated with setup and SBA. ) Upper Body Dressing (QC): 5 Lower Body Dressing (FIM): 4 (Pt able to doff and don undergarments, pants and slipper socks while seated with extended time. Pt. able to thread brief and pants around bilateral feet. Pt requires assist in pulling up undergarments and pants while standing at grab bars. Pt has difficult with L LE. OT instructed several times to dress that side first, but Pt continues to dress R side first. 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 Pt is impulsive in movements and will try to stand to walk before walker is in place. Pt does not always reach back for chair even with cues. ) Shower Transfer(FIM): 4 (Pt requires Min A for transfers from/to walker to shower bench. Pt is impulsive in transfers. Safety concerns. ) Pt in recliner upon entering room. Pt ambulates to bathroom with walker CGA to shower chair. Pt doffed clothing. Pt participates in shower with use of shower bench, grab bars, and hand-held shower sprayer. OT gives cues to wash different body parts, Pt continues to bathe same area several times. Pt requires several verbal cues to move to next body part. OT assists in getting shower gel out, Pt unable to process. Pt tries to stand with grab bars before instructed to wash rear roderick area. OT required to several times instruct Pt to not stand. Pt has difficulty dressing L LE. Pt transfers to to groom at sink. Pt beltran hair in wc at sink side with several verbal cues to comb R side. OT provides setup for brushing teeth and instructs Pt several times to brush his teeth, he agrees, but does not initiate. OT provided assist in applying toothpaste to toothbrush and hands to Pt. Pt begins brushing teeth. Pt continues to brush teeth for extended time. Pt does initiate turning on water to rinse toothbrush out which is the first time he has done this. Other Treatment After ADL tasks in room, Pt ambulates CGA to therapy room for 12 minutes of armbike for increased activity tolerance on mod resistance. Pt ambulates CGA to room, Pt returns to recliner, all needs met. Chair alarm set. Education OT Patient Education: Correct positioning, Energy conservation, Exercise program, Modified ADL techniques, Progress toward Goal/Update tx plan, Purpose of tx/functional activities, Reviewed precautions, Rehab process, Safety issues , Transfer techniques, W/C management Teaching Recipient: Patient Teaching Methods: Demonstration, Discussion Response to Teaching: Verbalize Understanding, Return Demonstration, Reinforcement Needed OT Short Term Goals Short Term Goals Time Frame: Sep 15, 2018 Grooming(FIM): 5 Transfers (B,C,W/C) (FIM): 4 Toilet/Commode Transfer(FIM): 4 1=Demonstrate adherence to instructed precautions during ADL tasks. 2=Patient will verbalize/demonstrate understanding of assistive devices/ modifications for ADL. 3=Patient will improve strength/tolerance for activity to enable patient to perform ADL's. OT Drug And Alcohol Counselor Goals Detention Goals Time Frame: Sep 29, 2018 Eating (FIM): 6 Eating (QC): 6 Groomin Oral Hygiene (QC): 5 Bathing(FIM): 5 Shower/Bathe Self (QC): 5 Upper Body Dressing(FIM): 6 Upper Body Dressing (QC): 6 Lower Body Dressing(FIM): 6 Lower Body Dressing (QC): 6 On/Off Footwear (QC): 6 Toileting(FIM): 6 Toileting Hygiene (QC): 6 Toilet/Commode Transfer(FIM): 6 Toilet/Commode Transfer (QC): 6 Shower Transfer(FIM): 5 Additional Goals: 1-Demonstrate ADL Tasks, 2-Verbalize Understanding, 3- ImproveStrength/[place] 1=Demonstrate adherence to instructed precautions during ADL tasks. 2=Patient will verbalize/demonstrate understanding of assistive devices/ modifications for ADL. 3=Patient will improve strength/tolerance for activity to enable patient to perform ADL's. OT Education/Plan Problem List/Assessment Assessment: Decreased Activ Tolerance, Decreased Safety Aware, Decreased UE Strength, Dependent Transfers, Impaired Cognition, Impaired I ADL's, Impaired Self-Care Skills Pt would benefit from skilled OT to increase his independence in basic self care Discharge Recommendations Plan/Recommendations: Continue POC Therapy D/C Recommendations: 24 hr Supervision, Home w/ Family Support, Scheduled Assistance Barriers to Progress Pt. has severe cognitive deficits due to dementia. Treatment Plan/Plan of Care Treatment,Training & Education: Yes Patient would benefit from OT for education, treatment and training to promote independence in ADL's, mobility, safety and/or upper extremity function for ADL' s. Plan of Care: ADL Retraining, Caregiver Training, Functional Mobility, Group Exercise/Act as Ind (education, exercise, socialization, funct activities, communication), UE Funct Exercise/Act, UE Neuromus Re-Ed/Coord, Visual/ Perceptual Retrain Treatment Duration: Sep 29, 2018 Frequency: At least 5 of 7 days/Wk (IRF) Estimated Hrs Per Day: 1.5 hours per day (1.25 to 1.5) Agreement: Yes Rehab Potential: Fair Time/GCodes Start Time: 10:00 Stop Time: 11:15 Total Time Billed (hr/min): 75 Billed Treatment Time 1, ADL x 55 minutes, EX x 20 minutes. MILAD SIMON OT Sep 15, 2018 14:14
[2018-09-15] MEDS: TAMSULOSIN 0.4 MG (FLOMAX) CAP PO SCH (16:23)
[2018-09-15 17:04] VITALS: BP 165/71
--- NOTE | 2018-09-15 17:27 | Cardiology Progress Note ---
Subjective Date Seen by Provider: Sep 15, 2018 Time Seen by Provider: 17:25 Subjective/Events-last exam Patient is laying down in bed, feeling better, no dizziness, no passing out. Review of Systems General: No Chills, No Night Sweats, No Fatigue, No Malaise, No Appetite, No Other HEENT: No Head Aches, No Visual Changes, No Eye Pain, No Ear Pain, No Dysphasia , No Sinus Congestion, No Post Nasal Drip, No Sore Throat, No Other Pulmonary: No Dyspnea, No Cough, No Pleuritic Chest Pain, No Other Cardiovascular: No: Chest Pain, Palpitations, Orthopnea, Paroxysmal Noc. Dyspnea, Edema, Lt Headedness, Other Objective-Cardiology Exam Last Set of Vital Signs Vital Signs 09/15/18 17:04 Temp 97.0 Pulse 61 Resp 18 B/P (MAP) 165/71 (102) Pulse Ox 98 O2 Delivery Room Air Capillary Refill : I&O Intake and Output 09/15/18 00:00 Intake Total 900 ml Output Total 1400 ml Balance -500 ml Intake Oral 900 ml Output Urine Total 1400 ml Bladder Scan Volume Amount 540 ml 292 ml 268 ml # Urine Diapers 3 General: Alert, Cooperative, No Acute Distress HEENT: Atraumatic, PERRLA, EOMI, Mucous Memb Moist/[place] Neck: Supple, No JVD Lungs: Clear to Auscultation Heart: Regular Rate, Normal S1, Normal S2 Abdomen: Normal Bowel Sounds, Soft, No Tenderness Extremities: No Cyanosis, No Edema, Other (Indwelling Patel catheter to DD) Skin: No Rashes Neuro: Normal Speech, Other (Impaired strength Left leg Impaired balance Mild dementia with memory loss) A/P-Cardiology Admission Diagnosis Generalized weakness PAF CAD HTN Assessment/Plan Generalized weakness, improving, workup has been negative. Continue his physical therapy Change in mental status, had previous hospitalization and evaluation in the ER for change in mental status in the past, workup at that time was negative. Continue with physical therapy Parkinson, started on Sinemet, followed by primary team Sick sinus syndrome, history of episodes of bradycardia with complete heart block, frequent PVCs, ventricular bigeminy and ventricular couplets, short PAT' s. 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 Continue to monitor History of nonsustained ventricular tachycardia, noted on interrogation on July 02, 2016, has been maintained on amiodarone 200 mg daily. Continue to monitor Paroxysmal atrial fibrillation, maintained on Eliquis. Continue to monitor [id number] score of 6, high risk, yearly risk of stroke without OAC is 9.8%. Maintained on Eliquis, continue to monitor Coronary artery disease, multiple interventions in the past, most recent cardiac catheterization done March 14, 2015 revealed extensive coronary artery disease, heavily calcified system, with 40 percent distal left main coronary artery stenosis. 3 stents in LAD proximally with 50-60 percent in-stent restenosis. Distal LAD had 95 percent stenosis followed by 80 percent stenosis long segment, very small artery not amendable to intervention. Total occlusion of the first obtuse marginal branch filled by collaterals. Patent stent in the proximal mid second OM branch with moderate disease in the distal proper circumflex artery. Patent stent in the RCA with 50 percent proximal right coronary artery stenosis and 50-60 distal right coronary artery stenosis. Asymptomatic, continue to monitor Stress test in July 2016 showed fixed defect involving the whole inferior wall and inferoapical segment with dilated left ventricle, inferior wall hypokinesia, Ejection fraction 54 percent. Echocardiogram showed ejection fraction 60 percent, dilated left atrium, mild to moderate mitral regurgitation and pulmonary artery pressure of 35 mmHg. continue to monitor Hypertension, mildly elevated blood pressure, I am hesitant to increase his blood pressure medications due to to the fact that he might have orthostatic hypotension or syncope. He is currently asymptomatic. Continue on current medication monitor Hyperlipidemia, I will continue to hold statin due to generalized weakness and monitor his response History of CVA in 2010, mild residual right sided weakness, episodes of confusion occurred over the last year where patient became confused and drove over once to [place] and once to [place]. It was felt that it was a global ischemic attack with confusion, workup at that time was negative. He was seen by Dr. Jiménez and started on Dilantin, the dose was increased by Dr. Damon, followed and managed by primary care physician Diabetes mellitus, having labile blood sugar, managed by primary care physician. Carotid stenosis, Seen and followed by Dr Simmons, continue to monitor Ex-Tobaccoism, patient smokes pipe, he stopped smoking in October, encouraged to continue with smoking cessation Peripheral neuropathy, maintained on gabapentin. Continue on current medication , continue to monitor Sleep apnea, severe on sleep study in October 2015, does not use his machine. Clinical Quality Measures DVT/VTE Risk/Contraindication: Risk Factor Score Per Nursin RFS Level Per Nursing on Admit: 4+=Very High SEBASTIÁN VALLE MD Sep 15, 2018 5:26 pm
[2018-09-15] MEDS: PHENYTOIN 100 MG (DILANTIN) CAP PO SCH (21:03)
[2018-09-15] MEDS: meTOprolol SUCCINATE 100 MG (TOPROL XL) TAB PO SCH (21:03)
[2018-09-15] MEDS: inSUlin DETERMIR 1 UNIT/0.01 ML (LEVEMIR) CHARGE PER UNIT SQ SCH (21:14)
[2018-09-16 06:00] VITALS: BP 160/84
[2018-09-16] MEDS: MULTIVIT W/MINERALS TAB (THERAGRAN M) PO SCH (06:11)
[2018-09-16] MEDS: glipiZIDE 5 MG (GLUCOTROL) TAB PO SCH (06:11)
[2018-09-16] MEDS: inSUlin ASPART (NovoLOG) 1 UNIT/0.01 ML (CHARGE PER UNIT) SC SCH ×4 (06:12→22:05)
[2018-09-16] MEDS: BETHANECHOL 25 MG (URECHOLINE) TAB PO SCH ×4 (06:12→21:33)
[2018-09-16] MEDS: SINEMET 25/100 (CARBIDOPA/LEVODOPA) TAB PO SCH ×4 (06:13→21:33)
--- NOTE | 2018-09-16 07:59 | Progress Note (SOAP) ---
Subjective Time Seen by a Provider: 07:57 Subjective/Events-last exam Patient feeling better. Patient more conversant. Still having to be straight cathetered. Patient eating good by himself Objective Exam Vital Signs Date Time Temp Pulse Resp B/P (MAP) Pulse Ox O2 Delivery O2 Flow Rate FiO2 09/16/18 06:00 97.7 61 20 160/84 (109) 93 Room Air 09/15/18 21:00 Room Air 09/15/18 17:04 97.0 61 18 165/71 (102) 98 Room Air 09/15/18 09:00 Room Air I & O 09/16/18 07:00 Intake Total 740 ml Output Total 250 ml Balance 490 ml Capillary Refill : General Appearance: No Apparent Distress, WD/WN HEENT: Normal ENT Inspection Neck: Normal Inspection Respiratory: No Accessory Muscle Use, No Respiratory Distress Cardiovascular: Regular Rate, Rhythm Results Lab Laboratory Tests 09/15/18 11:55: Glucometer 188H 09/15/18 15:29: Glucometer 320H 09/15/18 21:02: Glucometer 342H 09/16/18 04:53: Glucometer 120H Assessment/Plan Assessment/Plan Assess & Plan/Chief Complaint Debility. Parkinson disease. Dementia. Mental status change improving. Diabetes. Increased the dose of Sinemet. . 09/10/18. Debility better. Parkinson disease. Dementia. Mental status change improved. Diabetes sugars still little bit high. Cogwheel motion of right arm much less. . 09/13/18. Debility better. Parkinson disease. Dementia. Diabetes patient hypoglycemic this morning. Patient still has Patel catheter in. . 09/14/18. Debility. Patel catheter removed. Straight catheter once. Dementia. Diabetes. Patient improving. . 09/15/18. Debility. Dementia. Diabetes. Patient walking better. Patient standing up straight. Patient still has cogwheel motion of the right upper arm. Patient talking better. Patient improving. . 09/16/18. Debility better. Dementia improving. Diabetes. Patient still having Trouble with his urination. Parkinson disease Clinical Quality Measures DVT/VTE Risk/Contraindication: Risk Factor Score Per Nursin RFS Level Per Nursing on Admit: 4+=Very High DENIZ KENT DO Sep 16, 2018 07:59
--- NOTE | 2018-09-16 08:49 | Physical Therapy Daily Note ---
PT Daily Note-Current Subjective Patient in bed pre tx, agrees to PT, no complaints of pain. Patient needs brief changed and dressed lowers. Appearance Patient in bed post tx with nurse call, phone, tray, all needs met, bed alarm on. Mental Status Patient Orientation: Person, Confused Transfers Therapy Code Descriptions/Definitions Functional [place] Measure: 0=Not Assessed/NA 4=Minimal Assistance 1=Total Assistance 5=Supervision or Setup 2=Maximal Assistance 6=Modified [place] 3=Moderate Assistance 7=Complete [place] Therapy Quality Codes: 6 Independent with activity with or without an assistive device 5 Patient requires set up or clean up by helper. Patient completes activity by themselves 4 Supervision or touching assist (CGA). [place] provide cues , steadying assist 3 The helper provides less than half the effort to complete the activity 2 The helper provides more than half the effort to complete the activity 1 Dependent. The helper does all the effort to complete an activity 7 Patient refused to complete or attempt activity 9 The patient did not perform the activity before the current illness or injury 88 Not attempted due to Medical conditions or safety concerns Transfers (B, C, W/C) (FIM): 5 Scootin Rollin Supine to/from Sit: 5 Sit to/from Stand: 5 Bed to/from Chair: 5 Patient needs cues for direction and safety, will often try standing with both hands on the walker. Weight Bearing Right Lower Extremity: Right Full Weight Bearing Left Lower Extremity: Left Full Weight Bearing Gait Training Gait (FIM): 5 Distance: 150', 100' Gait Level of Assist: 5 Gait Persons Needed: 1 Gait Assistive Device: FWW Close supervision, patient sometimes has a festinating gait, gets outside of walker when turning. Exercises Standing: Hip Abduction, Heel/toe raises, Marching, Mini squats Standing Reps: 15 NuStep Minutes: 10 NuStep Workload: 5 Treatments bed mobility and transfers, dressing, ambulation, functional strengthening Assessment Current Status: Fair Progress improving ambulation PT Short Term Goals Short Term Goals Time Frame: Sep 15, 2018 Transfers (B,C,W/C) (FIM): 4 Gait (FIM): 1 Gait Distance Comment: 20' Gait Level of Assist: 3 Gait Assistive Device: Walker Cristian Wheelchair Distance: 20' PT Automobile Brake [place] Goals [facility] Goals PT [facility] Goals Time Frame: Sep 29, 2018 Transfers (B,C,W/C) (FIM): 4 Sit to Lying (QC): 4 Lying-Sitting on Side/Bed(QC): 4 Sit to Stand (QC): 4 Rollin Roll Left to Right (QC): 4 Chair/Cng-wf-[id number] Xfer(QC): 4 Car Transfer (QC): 4 Does the Patient Walk: Yes Gait (FIM): 2 Gait distance (FIM): 1=up to 49 ft Distance: 50' Walk 10 feet (QC): 3 Walk 10ft-Uneven Surface(QC): 3 Walk 50ft with 2 Turns (QC): 3 Walk 150 ft (QC): 0 Gait Level of Assist: 4 Gait Assistive Device: Walker Cristian Does the Pt use WC or Scooter?: Yes Wheelchair (FIM): 2 Wheelchair distance (FIM): 1=up to 49 ft Distance: 50 Wheelchair Level of Assist: 4 Wheel 50 feet with 2 turns (QC: 4 Stairs (FIM): 1 # of Steps: 1 1 Step (curb) (QC): 3 4 Steps (QC): 0 12 Steps (QC): 0 Stairs Level Of Assist: 4 Picking up an Object (QC): 0 PT Plan Problem List Problem List: Activity Tolerance, Functional Strength, Safety, Balance, Gait, Transfer, Bed Mobility, ROM Treatment/Plan Treatment Plan: Continue Plan of Care Treatment Plan: Bed Mobility, Concurrent Therapy, Education, Functional Activity Navya, Functional Strength, Group Therapy, Gait, Safety, Therapeutic Exercise, Transfers Treatment Duration: Sep 29, 2018 Frequency: At least 5 of 7 days/Wk (IRF) Estimated Hrs Per Day: 1.5 hours per day Patient and/or Family Agrees t: Yes Safety Risks/Education Patient Education: Gait Training, Transfer Techniques, Correct Positioning, Safety Issues Teaching Recipient: Patient Teaching Methods: Demonstration, Discussion Response to Teaching: Reinforcement Needed Time/GCodes Time In: 0800 Time Out: 0845 Total Billed Treatment Time: 45 Total Billed Treatment 1 visit GT 15' EX 30' FABRICIO ALFONSO PT Sep 16, 2018 08:49
[2018-09-16] MEDS: FISH OIL 1200 MG CAPSULE PO SCH (08:59)
[2018-09-16] MEDS: QUINAPRIL 40 MG PO SCH (08:59)
[2018-09-16 09:00] VITALS: BP 159/66
[2018-09-16] MEDS: amLODIPine 10 MG (NORVASC) TAB PO SCH (09:00)
[2018-09-16] MEDS: APIXABAN 5 MG (ELIQUIS) TABLET PO SCH ×2 (09:00→21:33)
[2018-09-16] MEDS: AMIODARONE 200 MG (CORDARONE) TAB PO SCH (09:01)
[2018-09-16] MEDS: GABAPENTIN 300 MG (NEURONTIN) CAP PO SCH ×2 (09:01→21:33)
[2018-09-16] MEDS: DOCUSATE SODIUM 100 MG (COLACE) CAP PO SCH ×2 (09:01→21:31)
--- NOTE | 2018-09-16 11:05 | Cardiology Progress Note ---
Subjective Date Seen by Provider: Sep 16, 2018 Time Seen by Provider: 11:03 Subjective/Events-last exam Patient receiving physical therapy. No new complaint. Denies any pain. Review of Systems General: No Night Sweats, No Fatigue, No Malaise HEENT: No Visual Changes, No Dysphasia Pulmonary: No Dyspnea, No Cough Cardiovascular: No: Chest Pain, Palpitations Gastrointestinal: No: Nausea, Vomiting, Abdominal Pain Genitourinary: No Dysuria, No Frequency Musculoskeletal: No: neck pain, back pain Neurological: No: Weakness, Numbness, Change in speech, Confusion Objective-Cardiology Exam Last Set of Vital Signs Vital Signs 09/16/18 06:00 Temp 97.7 Pulse 61 Resp 20 B/P (MAP) 160/84 (109) Pulse Ox 93 O2 Delivery Room Air Capillary Refill : I&O Intake and Output 09/16/18 00:00 Intake Total 940 ml Output Total 825 ml Balance 115 ml Intake Oral 940 ml Output Urine Total 825 ml Bladder Scan Volume Amount 498 ml 550 ml 550 ml # Urine Diapers 2 General: Alert, Cooperative, No Acute Distress HEENT: Atraumatic, PERRLA, EOMI, Mucous Memb Moist/[place] Neck: Supple, No JVD Lungs: Clear to Auscultation Heart: Regular Rate, Normal S1, Normal S2 Abdomen: Normal Bowel Sounds, Soft, No Tenderness Extremities: No Cyanosis, No Edema Skin: No Rashes Neuro: Normal Speech, Other (Impaired strength Left leg Impaired balance Mild dementia with memory loss) A/P-Cardiology Admission Diagnosis Generalized weakness PAF CAD HTN Assessment/Plan Generalized weakness, improving, workup has been negative. Continue his physical therapy Change in mental status, had previous hospitalization and evaluation in the ER for change in mental status in the past, workup at that time was negative. Appears back to baseline. Continue with physical therapy Parkinson, started on Sinemet, followed by primary team Sick sinus syndrome, history of episodes of bradycardia with complete heart block, frequent PVCs, ventricular bigeminy and ventricular couplets, short PAT' s. 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 Continue to monitor History of nonsustained ventricular tachycardia, noted on interrogation on July 02, 2016, has been maintained on amiodarone 200 mg daily. Continue to monitor Paroxysmal atrial fibrillation, maintained on Eliquis. Continue to monitor [id number] score of 6, high risk, yearly risk of stroke without OAC is 9.8%. Maintained on Eliquis, continue to monitor Coronary artery disease, multiple interventions in the past, most recent cardiac catheterization done March 14, 2015 revealed extensive coronary artery disease, heavily calcified system, with 40 percent distal left main coronary artery stenosis. 3 stents in LAD proximally with 50-60 percent in-stent restenosis. Distal LAD had 95 percent stenosis followed by 80 percent stenosis long segment, very small artery not amendable to intervention. Total occlusion of the first obtuse marginal branch filled by collaterals. Patent stent in the proximal mid second OM branch with moderate disease in the distal proper circumflex artery. Patent stent in the RCA with 50 percent proximal right coronary artery stenosis and 50-60 distal right coronary artery stenosis. Asymptomatic, continue to monitor Stress test in July 2016 showed fixed defect involving the whole inferior wall and inferoapical segment with dilated left ventricle, inferior wall hypokinesia, Ejection fraction 54 percent. Echocardiogram showed ejection fraction 60 percent, dilated left atrium, mild to moderate mitral regurgitation and pulmonary artery pressure of 35 mmHg. continue to monitor Hypertension, mildly elevated blood pressure, I am hesitant to increase his blood pressure medications due to to the fact that he might have orthostatic hypotension or syncope. He is currently asymptomatic. Continue on current medication monitor Hyperlipidemia, I will continue to hold statin due to generalized weakness and monitor his response History of CVA in 2010, mild residual right sided weakness, episodes of confusion occurred over the last year where patient became confused and drove over once to [place] and once to [place]. It was felt that it was a global ischemic attack with confusion, workup at that time was negative. He was seen by Dr. Jiménez and started on Dilantin, the dose was increased by Dr. Damon, followed and managed by primary care physician Diabetes mellitus, having labile blood sugar, managed by primary care physician. Carotid stenosis, Seen and followed by Dr Simmons, continue to monitor Ex-Tobaccoism, patient smokes pipe, he stopped smoking in October, encouraged to continue with smoking cessation Peripheral neuropathy, maintained on gabapentin. Continue on current medication , continue to monitor Sleep apnea, severe on sleep study in October 2015, does not use his machine. Clinical Quality Measures DVT/VTE Risk/Contraindication: Risk Factor Score Per Nursin RFS Level Per Nursing on Admit: 4+=Very High JOSELUIS CLINTON Sep 16, 2018 11:05
--- NOTE | 2018-09-16 11:16 | Occupational Ther Daily Note ---
OT Current Status-Daily Note Subjective Pt reported no pain. Appearance Pt supine in bed, dressed, alert, and willing to work with OT. Mental Status/Objective Patient Orientation: Person, Place Therapy Code Descriptions/Definitions Functional [place] Measure: 0=Not Assessed/NA 4=Minimal Assistance 1=Total Assistance 5=Supervision or Setup 2=Maximal Assistance 6=Modified [place] 3=Moderate Assistance 7=Complete [place] ADL-Treatment Therapy Code Descriptions/Definitions Functional [place] Measure: 0=Not Assessed/NA 4=Minimal Assistance 1=Total Assistance 5=Supervision or Setup 2=Maximal Assistance 6=Modified [place] 3=Moderate Assistance 7=Complete [place] Therapy Quality Codes: 6 Independent with activity with or without an assistive device 5 Patient requires set up or clean up by helper. Patient completes activity by themselves 4 Supervision or touching assist (CGA). Celina provide cues , steadying assist 3 The helper provides less than half the effort to complete the activity 2 The helper provides more than half the effort to complete the activity 1 Dependent. The helper does all the effort to complete an activity 7 Patient refused to complete or attempt activity 9 The patient did not perform the activity before the current illness or injury 88 Not attempted due to Medical conditions or safety concerns Transfers (B, C, W/C) (FIM): 4 (Pt transferred from supine to EOB with use of bed handrails. Pt transfers from EOB to stand CGA at walker. Pt transfers walker to chair CGA. Pt ambulates CGA. ) Other Treatment Pt declines brushing teeth and combing hair stating that he already has done both today. Pt ambulates to therapy gym with walker CGA. Pt participates in 12 minutes of arm bike activity on mod resistance for increased activity tolerance. Pt requires break. Pt participates in arm arc for increasing ROM in UE in all planes. Pt given direction to move rings from L side to R with R hand. Pt couldn't process. Pt continued to initiate task with L hand. With several cues Pt continued task with L hand completing task. OT instructed Pt to move rings from R to L using R hand and completed task with L hand, placing all rings at top of arc, stopping midline. OT gave cue to move rings from midline to L side. Pt completed task with L hand. Pt ambulates to room with CGA. Pt transfers to recliner, all needs met. Nursing in room. Pt continues to try to stand without walker or assist. Pt does not follow cues to reach back for sitting or to push up from chair when standing to walker. Education OT Patient Education: Correct positioning, Energy conservation, Exercise program, Modified ADL techniques, Progress toward Goal/Update tx plan, Purpose of tx/functional activities, Reviewed precautions, Rehab process, Safety issues , Transfer techniques Teaching Recipient: Patient Teaching Methods: Demonstration, Discussion Response to Teaching: Verbalize Understanding, Return Demonstration, Reinforcement Needed OT Short Term Goals Short Term Goals Time Frame: Sep 15, 2018 Grooming(FIM): 5 Transfers (B,C,W/C) (FIM): 4 Toilet/Commode Transfer(FIM): 4 1=Demonstrate adherence to instructed precautions during ADL tasks. 2=Patient will verbalize/demonstrate understanding of assistive devices/ modifications for ADL. 3=Patient will improve strength/tolerance for activity to enable patient to perform ADL's. OT Dental Appliance Mechanic Goals Dental Appliance Mechanic Goals Time Frame: Sep 29, 2018 Eating (FIM): 6 Eating (QC): 6 Groomin Oral Hygiene (QC): 5 Bathing(FIM): 5 Shower/Bathe Self (QC): 5 Upper Body Dressing(FIM): 6 Upper Body Dressing (QC): 6 Lower Body Dressing(FIM): 6 Lower Body Dressing (QC): 6 On/Off Footwear (QC): 6 Toileting(FIM): 6 Toileting Hygiene (QC): 6 Toilet/Commode Transfer(FIM): 6 Toilet/Commode Transfer (QC): 6 Shower Transfer(FIM): 5 Additional Goals: 1-Demonstrate ADL Tasks, 2-Verbalize Understanding, 3- ImproveStrength/[place] 1=Demonstrate adherence to instructed precautions during ADL tasks. 2=Patient will verbalize/demonstrate understanding of assistive devices/ modifications for ADL. 3=Patient will improve strength/tolerance for activity to enable patient to perform ADL's. OT Education/Plan Problem List/Assessment Assessment: Decreased Activ Tolerance, Decreased Safety Aware, Decreased UE Strength, Impaired Cognition, Impaired I ADL's, Impaired Self-Care Skills Pt would benefit from skilled OT to increase his independence in basic self care Discharge Recommendations Plan/Recommendations: Continue POC Therapy D/C Recommendations: 24 hr Supervision Treatment Plan/Plan of Care Treatment,Training & Education: Yes Patient would benefit from OT for education, treatment and training to promote independence in ADL's, mobility, safety and/or upper extremity function for ADL' s. Plan of Care: ADL Retraining, Caregiver Training, Functional Mobility, Group Exercise/Act as Ind (education, exercise, socialization, funct activities, communication), UE Funct Exercise/Act, UE Neuromus Re-Ed/Coord, Visual/ Perceptual Retrain Treatment Duration: Sep 29, 2018 Frequency: At least 5 of 7 days/Wk (IRF) Estimated Hrs Per Day: 1.5 hours per day (1.25 to 1.5) Agreement: Yes Rehab Potential: Fair Time/GCodes Start Time: 10:15 Stop Time: 11:00 Total Time Billed (hr/min): 45 Billed Treatment Time 1, EX x 25 minutes, FA x 20 minutes. MILAD SIMON OT Sep 16, 2018 11:16
--- NOTE | 2018-09-16 11:30 | Cardiology Progress Note ---
Subjective Date Seen by Provider: Sep 16, 2018 Time Seen by Provider: 11:29 Subjective/Events-last exam patient is sitting in a chair, feeling well. Denied any chest pain or shortness of Review of Systems General: No Chills, No Night Sweats, No Fatigue, No Malaise, No Appetite, No Other HEENT: No Head Aches, No Visual Changes, No Eye Pain, No Ear Pain, No Dysphasia , No Sinus Congestion, No Post Nasal Drip, No Sore Throat, No Other Pulmonary: No Dyspnea, No Cough, No Pleuritic Chest Pain, No Other Cardiovascular: No: Chest Pain, Palpitations, Orthopnea, Paroxysmal Noc. Dyspnea, Edema, Lt Headedness, Other Objective-Cardiology Exam Last Set of Vital Signs Vital Signs 09/16/18 06:00 Temp 97.7 Pulse 61 Resp 20 B/P (MAP) 160/84 (109) Pulse Ox 93 O2 Delivery Room Air Capillary Refill : I&O Intake and Output 09/16/18 00:00 Intake Total 940 ml Output Total 825 ml Balance 115 ml Intake Oral 940 ml Output Urine Total 825 ml Bladder Scan Volume Amount 498 ml 550 ml 550 ml # Urine Diapers 2 General: Alert, Cooperative, No Acute Distress HEENT: Atraumatic, PERRLA, EOMI, Mucous Memb Moist/[place] Neck: Supple, No JVD Lungs: Clear to Auscultation Heart: Regular Rate, Normal S1, Normal S2 Abdomen: Normal Bowel Sounds, Soft, No Tenderness Extremities: No Cyanosis, No Edema Skin: No Rashes Neuro: Normal Speech, Other (Impaired strength Left leg Impaired balance Mild dementia with memory loss) Results Lab A/P-Cardiology Admission Diagnosis Generalized weakness PAF CAD HTN Assessment/Plan Generalized weakness, improving, workup has been negative. Continue his physical therapy Change in mental status, had previous hospitalization and evaluation in the ER for change in mental status in the past, workup at that time was negative. Appears back to baseline. Continue with physical therapy Parkinson, started on Sinemet, followed by primary team Sick sinus syndrome, history of episodes of bradycardia with complete heart block, frequent PVCs, ventricular bigeminy and ventricular couplets, short PAT' s. Status post permanent pacemaker implantation April 2015, using a [employer] device Lenin GONZALEZ, good sensing and capture. Continue to monitor History of nonsustained ventricular tachycardia, noted on interrogation on July 02, 2016, has been maintained on amiodarone 200 mg daily. Continue to monitor Paroxysmal atrial fibrillation, maintained on Eliquis. Continue to monitor [id number] score of 6, high risk, yearly risk of stroke without OAC is 9.8%. Maintained on Eliquis, continue to monitor Coronary artery disease, multiple interventions in the past, most recent cardiac catheterization done March 14, 2015 revealed extensive coronary artery disease, heavily calcified system, with 40 percent distal left main coronary artery stenosis. 3 stents in LAD proximally with 50-60 percent in-stent restenosis. Distal LAD had 95 percent stenosis followed by 80 percent stenosis long segment, very small artery not amendable to intervention. Total occlusion of the first obtuse marginal branch filled by collaterals. Patent stent in the proximal mid second OM branch with moderate disease in the distal proper circumflex artery. Patent stent in the RCA with 50 percent proximal right coronary artery stenosis and 50-60 distal right coronary artery stenosis. Asymptomatic, continue to monitor Stress test in July 2016 showed fixed defect involving the whole inferior wall and inferoapical segment with dilated left ventricle, inferior wall hypokinesia, Ejection fraction 54 percent. Echocardiogram showed ejection fraction 60 percent, dilated left atrium, mild to moderate mitral regurgitation and pulmonary artery pressure of 35 mmHg. continue to monitor Hypertension, mildly elevated blood pressure, I am hesitant to increase his blood pressure medications due to to the fact that he might have orthostatic hypotension or syncope. He is currently asymptomatic. Continue on current medication monitor Hyperlipidemia, I will continue to hold statin due to generalized weakness and monitor his response History of CVA in 2010, mild residual right sided weakness, episodes of confusion occurred over the last year where patient became confused and drove over once to [place] and once to [place]. It was felt that it was a global ischemic attack with confusion, workup at that time was negative. He was seen by Dr. Jiménez and started on Dilantin, the dose was increased by Dr. Damon, followed and managed by primary care physician Diabetes mellitus, having labile blood sugar, managed by primary care physician. Carotid stenosis, Seen and followed by Dr Simmons, continue to monitor Ex-Tobaccoism, patient smokes pipe, he stopped smoking in October, encouraged to continue with smoking cessation Peripheral neuropathy, maintained on gabapentin. Continue on current medication , continue to monitor Sleep apnea, severe on sleep study in October 2015, does not use his machine. Clinical Quality Measures DVT/VTE Risk/Contraindication: Risk Factor Score Per Nursin RFS Level Per Nursing on Admit: 4+=Very High SEBASTIÁN VALLE MD Sep 16, 2018 11:30
--- NOTE | 2018-09-16 11:45 | Progress Note-Urology ---
Progress Note-Urology Progress Notes/Assess & Plan Progress/Assessment & Plan VOIDING MORE ON OWN. STILL LEAKS. TOLERATES INCREASE URECHOLINE WELL. KEEP SAME PLAN Final Diagnosis URINE RETENTION EVERTON GARCIA MD Sep 16, 2018 11:45
--- NOTE | 2018-09-16 13:56 | PM & R (SOAP) Progress Note ---
Subjective This was a face to face visit with the patient. Date Seen by Provider: Sep 16, 2018 Time Seen by Provider: 11:50 Subjective/Events-last exam Patient was seen in his room this AM Appreciate DR amaya and Remedios notes and orders Urecholine increased to facilitate voiding Discussed with RN patient with some incontinence DR romero has increased Sinemet.Patient min assist for transfers Date Identified: Sep 16, 2018 Time Identified: 12:00 Medication Intervention: Urecholine and Sinemet increased in dosage as per above Review of Systems Genitourinary: Incontinence Neurological: Confusion Objective Physician Exam Last Set of Vital Signs Vital Signs Date Time Temp Pulse Resp B/P (MAP) Pulse Ox O2 Delivery O2 Flow Rate FiO2 09/16/18 09:00 Room Air 09/16/18 06:00 97.7 61 20 160/84 (109) 93 Capillary Refill : I&O Intake and Output 09/16/18 00:00 Intake Total 940 ml Output Total 825 ml Balance 115 ml Intake Oral 940 ml Output Urine Total 825 ml Bladder Scan Volume Amount 498 ml 550 ml 550 ml # Urine Diapers 2 General: Alert, Cooperative, No Acute Distress HEENT: Atraumatic, PERRLA, EOMI, Mucous Memb Moist/[place] Neck: Supple, No JVD Lungs: Clear to Auscultation Heart: Regular Rate, Normal S1, Normal S2 Abdomen: Normal Bowel Sounds, Soft, No Tenderness Extremities: No Cyanosis, No Edema Skin: No Rashes Neuro: Normal Speech, Other (Impaired strength Left leg Impaired balance Mild dementia with memory loss) Results Lab Data Laboratory Tests 09/13/18 15:31: Glucometer 257H 09/13/18 20:09: Glucometer 297H 09/14/18 04:53: Glucometer 107 09/14/18 04:55: White Blood Count 9.7, Red Blood Count 4.01L, Hemoglobin 12.9L, Hematocrit 37L, Mean Corpuscular Volume 92, Mean Corpuscular Hemoglobin 32, Mean Corpuscular Hemoglobin Concent 35, Red Cell Distribution Width 12.1, Platelet Count 295, Mean Platelet Volume 10.4, Sodium Level 139, Potassium Level 4.1, Chloride Level 105, Carbon Dioxide Level 24, Anion Gap 10, Blood Urea Nitrogen 20H, Creatinine 0.96, Estimat Glomerular Filtration Rate > 60, BUN/Creatinine Ratio 21, Glucose Level 110H, Calcium Level 10.0 09/14/18 11:43: Glucometer 156H 09/14/18 15:58: Glucometer 233H 09/14/18 20:49: Glucometer 313H 09/15/18 04:59: Glucometer 88 09/15/18 11:55: Glucometer 188H 09/15/18 15:29: Glucometer 320H 09/15/18 21:02: Glucometer 342H 09/16/18 04:53: Glucometer 120H 09/16/18 10:59: Glucometer 224H Assessment/Plan Assessment and Plan Nasra Isabel sinemet dose being adjusted Dementia multifactorial DM better controlled CAD Constipation Urinary rentention improved with some incontinence DR barajas adjusting meds PAF on eliquis HX of nonsustained V tach noted 2015 maintained on Amiodarone SSS s/p pacemaker Plan Continue Pt/OT Adjust meds as per above Team Conference held yesterday-see report for full functional update and POC and ELOS F/U with PCP and prn Co-Morbidities that are continuing to impact the rehab process: (include details ) YOVANY DANIELS MD Sep 16, 2018 13:56
--- NOTE | 2018-09-16 14:24 | Therapy Group Daily Note ---
Therapy Daily Group Note Patient Education Topic Other List Below (memory) Exercises LE Seated Exercise, UE Exercise Other/Notes Pt ambulated with CGA using W gym <-->room for OT group. Group consisted of introductions (name, place living, reason for being in ARU), socialization, ARU description, LE/UE seated exercises, memory education/strategies and memory activities. Pt was able to introduce self with prompts. Pt required redirection throughout group, decreased focus. During group discussions and activities pt was able to verbalize answers only with prompting. Peers attempted to engage pt, pt required prompts to engage in conversation. Prompts to complete UE/LE exercises and required assist to count reps. After therapy, pt seated in recliner with call light/phone in reach. All needs met in room. Start Time: 13:00 Stop Time: 14:10 Total Billed Treatment Time: 70 Total Billed Treatment 1-GRP SRINIVAS MARTINEZ Sep 16, 2018 14:24
--- NOTE | 2018-09-16 15:23 | Speech Therapy Daily Note ---
Speech Daily Progress Note Subjective Date Seen by Provider: Sep 16, 2018 Time Seen by Provider: 00:30 Patient resting in bed, however he was able to participate in memory activities without difficulty. Treatment Plan Continue Plan of Care Communication Comprehension: 2 Expression: 2 Social Cognition Social Interaction: 3 Problem Solvin Memory: 3 Speech Short Term Goals Short Term Goals Short Term Goals 1) Patient will complete simple memory tasks at 75% with minimal cues. 2) Patient will complete simple problem solving tasks at 75% with minimal cues. 3) Patient will complete simple 1 step directions with 75% with minimal cues. Speech Residential Goals Residential Goals Patient will improve cognitive-communication tasks for improved safety and independence. Speech-Plan Patient/Family Goals Patient/Family Goals: Patient plans to return home with family support when he leaves rehab. Treatment Plan Speech Therapy Treatment Plan: Continue Plan of Care Patient is making progress on all goals. Treatment Duration: Sep 08, 2018 Frequency: 5 times per week Estimated Hrs Per Day: .5 hour per day Rehab Potential: Fair Barriers to Learning: Patient has dementia. Pt/Family Agrees to Plan: Yes Safety Risks/Education Teaching Recipient: Patient Teaching Methods: Discussion Response to Teaching: Verbalize Understanding Time Speech Therapy Time In: 09:30 Speech Therapy Time Out: 10:00 Total Billed Time: 30 Billed Treatment Time 1[address] Sep 16, 2018 15:23
[2018-09-16 15:34] VITALS: BP 154/63
[2018-09-16] MEDS: TAMSULOSIN 0.4 MG (FLOMAX) CAP PO SCH (17:00)
[2018-09-16] MEDS: OMEGA 3 (FISH OIL) 1000 MG CAP PO SCH (17:00)
[2018-09-16] MEDS: PHENYTOIN 100 MG (DILANTIN) CAP PO SCH (21:31)
[2018-09-16] MEDS: meTOprolol SUCCINATE 100 MG (TOPROL XL) TAB PO SCH (21:34)
[2018-09-16] MEDS: inSUlin DETERMIR 1 UNIT/0.01 ML (LEVEMIR) CHARGE PER UNIT SQ SCH (22:05)
[2018-09-17] MEDS: inSUlin ASPART (NovoLOG) 1 UNIT/0.01 ML (CHARGE PER UNIT) SC SCH ×4 (05:11→21:26)
[2018-09-17 05:26] VITALS: BP 130/76
[2018-09-17] MEDS: glipiZIDE 5 MG (GLUCOTROL) TAB PO SCH (05:51)
[2018-09-17] MEDS: MULTIVIT W/MINERALS TAB (THERAGRAN M) PO SCH (05:51)
[2018-09-17] MEDS: BETHANECHOL 25 MG (URECHOLINE) TAB PO SCH ×3 (05:51→16:09)
[2018-09-17] MEDS: OMEGA 3 (FISH OIL) 1000 MG CAP PO SCH ×2 (05:52→16:31)
--- NOTE | 2018-09-17 07:30 | Progress Note (SOAP) ---
Subjective Time Seen by a Provider: 07:28 Subjective/Events-last exam Patient is sleepy this morning. Patient has breakdown on the lower back. Consult wound care. Patient wets himself Objective Exam Vital Signs Date Time Temp Pulse Resp B/P (MAP) Pulse Ox O2 Delivery O2 Flow Rate FiO2 09/17/18 05:26 98.6 64 18 130/76 (94) 97 Room Air 09/16/18 21:02 Room Air 09/16/18 17:25 Room Air 09/16/18 15:34 98.9 63 14 154/63 (93) 95 Room Air 09/16/18 09:00 Room Air 09/16/18 09:00 60 159/66 (97) I & O 09/17/18 07:00 Intake Total 1400 ml Balance 1400 ml Capillary Refill : General Appearance: No Apparent Distress, WD/WN HEENT: Normal ENT Inspection Neck: Normal Inspection Respiratory: Lungs Clear, No Accessory Muscle Use, No Respiratory Distress Cardiovascular: Regular Rate, Rhythm Gastrointestinal: non tender, soft Results Lab Laboratory Tests 09/16/18 10:59: Glucometer 224H 09/16/18 15:33: Glucometer 398H 09/16/18 21:51: Glucometer 353H 09/17/18 05:05: Glucometer 148H Assessment/Plan Assessment/Plan Assess & Plan/Chief Complaint Debility. Parkinson disease. Dementia. Mental status change improving. Diabetes. Increased the dose of Sinemet. . 09/10/18. Debility better. Parkinson disease. Dementia. Mental status change improved. Diabetes sugars still little bit high. Cogwheel motion of right arm much less. . 09/13/18. Debility better. Parkinson disease. Dementia. Diabetes patient hypoglycemic this morning. Patient still has Patel catheter in. . 09/14/18. Debility. Patel catheter removed. Straight catheter once. Dementia. Diabetes. Patient improving. . 09/15/18. Debility. Dementia. Diabetes. Patient walking better. Patient standing up straight. Patient still has cogwheel motion of the right upper arm. Patient talking better. Patient improving. . 09/16/18. Debility better. Dementia improving. Diabetes. Patient still having Trouble with his urination. Parkinson disease. . 09/17/18. Debility better. Patient has breakdown in the lower back. Diabetes. Dementia. Parkinson disease. Patient resting comfortably today Clinical Quality Measures DVT/VTE Risk/Contraindication: Risk Factor Score Per Nursin RFS Level Per Nursing on Admit: 4+=Very High DENIZ KENT DO Sep 17, 2018 07:30
[2018-09-17] MEDS: QUINAPRIL 40 MG PO SCH (08:46)
[2018-09-17] MEDS: GABAPENTIN 300 MG (NEURONTIN) CAP PO SCH ×2 (08:46→21:26)
[2018-09-17] MEDS: AMIODARONE 200 MG (CORDARONE) TAB PO SCH (08:46)
[2018-09-17] MEDS: APIXABAN 5 MG (ELIQUIS) TABLET PO SCH ×2 (08:46→21:26)
[2018-09-17] MEDS: amLODIPine 10 MG (NORVASC) TAB PO SCH (08:46)
[2018-09-17] MEDS: SINEMET 25/100 (CARBIDOPA/LEVODOPA) TAB PO SCH ×3 (08:46→21:27)
[2018-09-17] MEDS: DOCUSATE SODIUM 100 MG (COLACE) CAP PO SCH ×2 (08:47→21:26)
--- NOTE | 2018-09-17 08:53 | Speech Therapy Daily Note ---
Speech Daily Progress Note Subjective Date Seen by Provider: Sep 17, 2018 Time Seen by Provider: 00:30 Patient sleepy today which required frequent verbal and/or tactile prompts to be able to participate with skilled therapy. Objective Patient completed memory tasks with 60% accuracy given frequent cues and/or repetitions. Treatment Plan Continue Plan of Care Communication Comprehension: 2 Expression: 2 Social Cognition Social Interaction: 3 Problem Solvin Memory: 3 Speech Short Term Goals Short Term Goals Short Term Goals 1) Patient will complete simple memory tasks at 75% with minimal cues. 2) Patient will complete simple problem solving tasks at 75% with minimal cues. 3) Patient will complete simple 1 step directions with 75% with minimal cues. Speech Dentist/Owner Goals Dentist/Owner Goals Patient will improve cognitive-communication tasks for improved safety and independence. Speech-Plan Patient/Family Goals Patient/Family Goals: Patient will be returning home with family as soon as he is able. Treatment Plan Speech Therapy Treatment Plan: Continue Plan of Care Patient is adjusting to his new meds which may be part of the reason he is so sleepy most of the time. Treatment Duration: Sep 08, 2018 Frequency: 5 times per week Estimated Hrs Per Day: .5 hour per day Rehab Potential: Fair Barriers to Learning: Patient is sleepy much of the time. He also has dementia. Pt/Family Agrees to Plan: Yes Safety Risks/Education Teaching Recipient: Patient Teaching Methods: Discussion Response to Teaching: Verbalize Understanding Education Topics Provided: Safety. Time Speech Therapy Time In: 08:15 Speech Therapy Time Out: 08:45 Total Billed Time: 30 Billed Treatment Time 1, PATRICK Cleaning Sep 17, 2018 08:53
--- NOTE | 2018-09-17 09:56 | Cardiology Progress Note ---
Subjective Date Seen by Provider: Sep 17, 2018 Time Seen by Provider: 09:52 Subjective/Events-last exam Patient is in bed, feeling better, no new complaint Review of Systems General: No Chills, No Night Sweats, No Fatigue, No Malaise, No Appetite, No Other HEENT: No Head Aches, No Visual Changes, No Eye Pain, No Ear Pain, No Dysphasia , No Sinus Congestion, No Post Nasal Drip, No Sore Throat, No Other Pulmonary: No Dyspnea, No Cough, No Pleuritic Chest Pain, No Other Cardiovascular: No: Chest Pain, Palpitations, Orthopnea, Paroxysmal Noc. Dyspnea, Edema, Lt Headedness, Other Objective-Cardiology Exam Last Set of Vital Signs Vital Signs 09/17/18 09/17/18 05:26 09:00 Temp 98.6 Pulse 64 Resp 18 B/P (MAP) 130/76 (94) Pulse Ox 97 O2 Delivery Room Air Capillary Refill : I&O Intake and Output 09/17/18 00:00 Intake Total 1000 ml Balance 1000 ml Intake Oral 1000 ml Bladder Scan Volume Amount 156 ml 127 ml 121 ml # Voids 3 General: Alert, Cooperative, No Acute Distress HEENT: Atraumatic, PERRLA, EOMI, Mucous Memb Moist/[place] Neck: Supple, No JVD Lungs: Clear to Auscultation Heart: Regular Rate, Normal S1, Normal S2 Abdomen: Normal Bowel Sounds, Soft, No Tenderness Extremities: No Cyanosis, No Edema Skin: No Rashes Neuro: Normal Speech, Other (Impaired strength Left leg Impaired balance Mild dementia with memory loss) Results Lab Laboratory Tests Test 09/16/18 10:59 09/16/18 15:33 09/16/18 21:51 09/17/18 05:05 Range/Units Glucometer 224 H 398 H 353 H 148 H 70-110 MG/DL Test 09/17/18 09:24 Range/Units Glucometer 211 H 70-110 MG/DL A/P-Cardiology Admission Diagnosis Generalized weakness PAF CAD HTN Assessment/Plan Generalized weakness, improving, workup has been negative. Continue his physical therapy Change in mental status, had previous hospitalization and evaluation in the ER for change in mental status in the past, workup at that time was negative. Appears back to baseline. Continue with physical therapy Parkinson, started on Sinemet, followed by primary team Sick sinus syndrome, history of episodes of bradycardia with complete heart block, frequent PVCs, ventricular bigeminy and ventricular couplets, short PAT' s. Status post permanent pacemaker implantation April 2015, using a [employer] device Advisa DR GONZALEZ, good sensing and capture. Continue to monitor History of nonsustained ventricular tachycardia, noted on interrogation on July 02, 2016, has been maintained on amiodarone 200 mg daily. Continue to monitor Paroxysmal atrial fibrillation, maintained on Eliquis. Continue to monitor [id number] score of 6, high risk, yearly risk of stroke without OAC is 9.8%. Maintained on Eliquis, continue to monitor Coronary artery disease, multiple interventions in the past, most recent cardiac catheterization done March 14, 2015 revealed extensive coronary artery disease, heavily calcified system, with 40 percent distal left main coronary artery stenosis. 3 stents in LAD proximally with 50-60 percent in-stent restenosis. Distal LAD had 95 percent stenosis followed by 80 percent stenosis long segment, very small artery not amendable to intervention. Total occlusion of the first obtuse marginal branch filled by collaterals. Patent stent in the proximal mid second OM branch with moderate disease in the distal proper circumflex artery. Patent stent in the RCA with 50 percent proximal right coronary artery stenosis and 50-60 distal right coronary artery stenosis. Asymptomatic, continue to monitor Stress test in July 2016 showed fixed defect involving the whole inferior wall and inferoapical segment with dilated left ventricle, inferior wall hypokinesia, Ejection fraction 54 percent. Echocardiogram showed ejection fraction 60 percent, dilated left atrium, mild to moderate mitral regurgitation and pulmonary artery pressure of 35 mmHg. continue to monitor Hypertension, mildly elevated blood pressure, I am hesitant to increase his blood pressure medications due to to the fact that he might have orthostatic hypotension or syncope. He is currently asymptomatic. Continue on current medication monitor Hyperlipidemia, I will continue to hold statin due to generalized weakness and monitor his response History of CVA in 2010, mild residual right sided weakness, episodes of confusion occurred over the last year where patient became confused and drove over once to [place] and once to [place]. It was felt that it was a global ischemic attack with confusion, workup at that time was negative. He was seen by Dr. Jiménez and started on Dilantin, the dose was increased by Dr. Damon, followed and managed by primary care physician Diabetes mellitus, having labile blood sugar, managed by primary care physician. Carotid stenosis, Seen and followed by Dr Simmons, continue to monitor Ex-Tobaccoism, patient smokes pipe, he stopped smoking in October, encouraged to continue with smoking cessation Peripheral neuropathy, maintained on gabapentin. Continue on current medication , continue to monitor Sleep apnea, severe on sleep study in October 2015, does not use his machine. Clinical Quality Measures DVT/VTE Risk/Contraindication: Risk Factor Score Per Nursin RFS Level Per Nursing on Admit: 4+=Very High SEBASTIÁN VALLE MD Sep 17, 2018 09:56
--- NOTE | 2018-09-17 11:09 | Physical Therapy Daily Note ---
PT Daily Note-Current Subjective Pt. difficult to awaken. Falls asleep quickly and does not follow commands, states his name, but doesnt respond to where he is, states Esteban is president and does not know the month. Pt. was oriented to these items x 3 during Rx Pain Location: No Pain Reported Mental Status Patient Orientation: Person, Confused, Listless Transfers Therapy Code Descriptions/Definitions Functional [place] Measure: 0=Not Assessed/NA 4=Minimal Assistance 1=Total Assistance 5=Supervision or Setup 2=Maximal Assistance 6=Modified [place] 3=Moderate Assistance 7=Complete [place] Therapy Quality Codes: 6 Independent with activity with or without an assistive device 5 Patient requires set up or clean up by helper. Patient completes activity by themselves 4 Supervision or touching assist (CGA). [place] provide cues , steadying assist 3 The helper provides less than half the effort to complete the activity 2 The helper provides more than half the effort to complete the activity 1 Dependent. The helper does all the effort to complete an activity 7 Patient refused to complete or attempt activity 9 The patient did not perform the activity before the current illness or injury 88 Not attempted due to Medical conditions or safety concerns Transfers (B, C, W/C) (FIM): 3 Scootin Rollin Supine to/from Sit: 3 Sit to/from Stand: 4 pt. falls asleep between commands and does not complete commands. Needs mod assist to complete rolling and get feet and legs out of bed Weight Bearing Right Lower Extremity: Right Full Weight Bearing Left Lower Extremity: Left Full Weight Bearing Gait Training Does the Patient Walk?: Yes Gait (FIM): 1 Distance (FIM): 1=up to 49 ft (20ftx1) Gait Level of Assist: 3 Gait Persons Needed: 1 Gait Assistive Device: FWW Exercises Supine Ex: Bridging, Rolling, Heel Slides, Straight leg raise, Hip abd/add Supine Reps: 5 Seated Therapy Exercises: Ankle pumps, Sit to stand, Long arc quads, Hip flexion Seated Reps: 8 Assessment Current Status: Fair Progress lethargic, unable to follow commands, requires assist to complete TRFs , gait and exercise, BP 154/66, HR 63, O2 sats 94% PT Short Term Goals Short Term Goals Time Frame: Sep 15, 2018 Transfers (B,C,W/C) (FIM): 4 Gait (FIM): 1 Gait Distance Comment: 20' Gait Level of Assist: 3 Gait Assistive Device: Walker Cristian Wheelchair Distance: 20' PT Director Software Development Goals Custodial Goals PT Custodial Goals Time Frame: Sep 29, 2018 Transfers (B,C,W/C) (FIM): 4 Sit to Lying (QC): 4 Lying-Sitting on Side/Bed(QC): 4 Sit to Stand (QC): 4 Rollin Roll Left to Right (QC): 4 Chair/Lkn-ea-Hmxwv Xfer(QC): 4 Car Transfer (QC): 4 Does the Patient Walk: Yes Gait (FIM): 2 Gait distance (FIM): 1=up to 49 ft Distance: 50' Walk 10 feet (QC): 3 Walk 10ft-Uneven Surface(QC): 3 Walk 50ft with 2 Turns (QC): 3 Walk 150 ft (QC): 0 Gait Level of Assist: 4 Gait Assistive Device: Walker Cristian Does the Pt use WC or Scooter?: Yes Wheelchair (FIM): 2 Wheelchair distance (FIM): 1=up to 49 ft Distance: 50 Wheelchair Level of Assist: 4 Wheel 50 feet with 2 turns (QC: 4 Stairs (FIM): 1 # of Steps: 1 1 Step (curb) (QC): 3 4 Steps (QC): 0 12 Steps (QC): 0 Stairs Level Of Assist: 4 Picking up an Object (QC): 0 PT Plan Treatment/Plan Treatment Plan: Continue Plan of Care Treatment Plan: Bed Mobility, Concurrent Therapy, Education, Functional Activity Navya, Functional Strength, Group Therapy, Gait, Safety, Therapeutic Exercise, Transfers Treatment Duration: Sep 29, 2018 Frequency: At least 5 of 7 days/Wk (IRF) Estimated Hrs Per Day: 1.5 hours per day Patient and/or Family Agrees t: Yes Safety Risks/Education Patient Education: Gait Training, Transfer Techniques Teaching Recipient: Patient Teaching Methods: Demonstration Response to Teaching: Unable to Return Demonstration, Unable to Comprehend, Reinforcement Needed Time/GCodes Time In: 900 Time Out: 1000 Total Billed Treatment Time: 60 Total Billed Treatment 1,EX15m,GT10m,FA35m G Codes Necessary: SANDEE Avilez WOOD TYPE FINISHER Sep 17, 2018 11:09
--- NOTE | 2018-09-17 11:12 | Occupational Ther Daily Note ---
OT Current Status-Daily Note Subjective Pt reported no pain. Appearance Pt upright, dressed in recliner. Pt was asleep and had to be awoken. Pt willing to work with OT. Mental Status/Objective Therapy Code Descriptions/Definitions Functional [place] Measure: 0=Not Assessed/NA 4=Minimal Assistance 1=Total Assistance 5=Supervision or Setup 2=Maximal Assistance 6=Modified [place] 3=Moderate Assistance 7=Complete [place] ADL-Treatment Therapy Code Descriptions/Definitions Functional [place] Measure: 0=Not Assessed/NA 4=Minimal Assistance 1=Total Assistance 5=Supervision or Setup 2=Maximal Assistance 6=Modified [place] 3=Moderate Assistance 7=Complete [place] Therapy Quality Codes: 6 Independent with activity with or without an assistive device 5 Patient requires set up or clean up by helper. Patient completes activity by themselves 4 Supervision or touching assist (CGA). [place] provide cues , steadying assist 3 The helper provides less than half the effort to complete the activity 2 The helper provides more than half the effort to complete the activity 1 Dependent. The helper does all the effort to complete an activity 7 Patient refused to complete or attempt activity 9 The patient did not perform the activity before the current illness or injury 88 Not attempted due to Medical conditions or safety concerns Grooming (FIM): 4 (Pt perfomed grooming tasks at wheelchair height sink. Pt required several cues for initiation for washing face. OT provided warm washcloth and handed to Pt as he would not initiate task. Pt initiated combing hair independently, but had to be directed to comb R side of head. Pt required several verbal cues to initate task of brushing teeth. OT gave verbal cues to spit out toothpaste when finished brushing. Pt preoccupied with gait belt and continued to adjust it. When asked if it was ok, he said yes. ) Transfers (B, C, W/C) (FIM): 4 (Pt required Min A on transfers for steadiness, which is a decrease from previous sessions. Pt slightly retropulsive in transfers. Pt needed several verbal cues for sequencing transfers. Pt transferred to/from recliner - walker - wc. ) Pt required several more verbal and visual cues today to perform grooming tasks. OT did not feel comfortable in ambulating to therapy gym. OT pushed Pt to therapy gym in wc. Other Treatment Pt participated in arm bike for approx 6 minutes, unable to complete the 12 minutes from previous day's sessions. Pt had difficulty initiating task after direction from OT. OT provided visual cues. Pt had difficulty on staying on task and would reverse several times the direction of the arm bike rotation. Pt would take several breaks and close eyes. OT discontinued activity to attempt different activity. OT attempted to have Pt work on clothes pins activity. Pt needed visual and verbal cues on how to complete task. OT further simplified the task by singling out one clothes pin for Pt to grasp. Pt able to perform task with visual cue. After several visual cues, Pt able to complete removing remaining clothes pins. OT gave direction to replace clothes pins with visual and verbal cues. Pt able to duplicate and a reduced pace and very focused on the placement of the clothes pins. Pt completed one row. OT initiated the next row to complete task, but Pt couldn't stay on task even though verbalizing that he understood the task. OT pushed Pt back to room, transferred to recliner, all needs met. Seat alarm set. Education OT Patient Education: Correct positioning, Exercise program, Modified ADL techniques, Progress toward Goal/Update tx plan, Purpose of tx/functional activities, Reviewed precautions, Rehab process, Safety issues, Transfer techniques Teaching Recipient: Patient Teaching Methods: Demonstration, Discussion Response to Teaching: Verbalize Understanding, Return Demonstration, Reinforcement Needed OT Short Term Goals Short Term Goals Time Frame: Sep 15, 2018 Grooming(FIM): 5 Transfers (B,C,W/C) (FIM): 4 Toilet/Commode Transfer(FIM): 4 1=Demonstrate adherence to instructed precautions during ADL tasks. 2=Patient will verbalize/demonstrate understanding of assistive devices/ modifications for ADL. 3=Patient will improve strength/tolerance for activity to enable patient to perform ADL's. OT Explosives Detonator Goals Chcf Goals Time Frame: Sep 29, 2018 Eating (FIM): 6 Eating (QC): 6 Groomin Oral Hygiene (QC): 5 Bathing(FIM): 5 Shower/Bathe Self (QC): 5 Upper Body Dressing(FIM): 6 Upper Body Dressing (QC): 6 Lower Body Dressing(FIM): 6 Lower Body Dressing (QC): 6 On/Off Footwear (QC): 6 Toileting(FIM): 6 Toileting Hygiene (QC): 6 Toilet/Commode Transfer(FIM): 6 Toilet/Commode Transfer (QC): 6 Shower Transfer(FIM): 5 Additional Goals: 1-Demonstrate ADL Tasks, 2-Verbalize Understanding, 3- ImproveStrength/Navya 1=Demonstrate adherence to instructed precautions during ADL tasks. 2=Patient will verbalize/demonstrate understanding of assistive devices/ modifications for ADL. 3=Patient will improve strength/tolerance for activity to enable patient to perform ADL's. OT Education/Plan Problem List/Assessment Assessment: Decreased Activ Tolerance, Decreased Safety Aware, Dependent Transfers, Impaired Cognition, Impaired I ADL's, Impaired Self-Care Skills Pt would benefit from skilled OT to increase his independence in basic self care Discharge Recommendations Plan/Recommendations: Continue POC Treatment Plan/Plan of Care Treatment,Training & Education: Yes Patient would benefit from OT for education, treatment and training to promote independence in ADL's, mobility, safety and/or upper extremity function for ADL' s. Plan of Care: ADL Retraining, Caregiver Training, Functional Mobility, Group Exercise/Act as Ind (education, exercise, socialization, funct activities, communication), UE Funct Exercise/Act, UE Neuromus Re-Ed/Coord, Visual/ Perceptual Retrain Treatment Duration: Sep 29, 2018 Frequency: At least 5 of 7 days/Wk (IRF) Estimated Hrs Per Day: 1.5 hours per day (1.25 to 1.5) Agreement: Yes Rehab Potential: Fair Time/GCodes Start Time: 10:15 Stop Time: 11:00 Total Time Billed (hr/min): 45 Billed Treatment Time 1, ADL x 15 minutes, EX x 15 minutes, FA x 15 minutes. CECILIA BOYD OT Sep 17, 2018 11:12
--- NOTE | 2018-09-17 14:05 | Progress Note-Urology ---
Progress Note-Urology Progress Notes/Assess & Plan Progress/Assessment & Plan CONTINUES SAME. PVR 135 Final Diagnosis URINE RETENTION EVERTON GARCIA MD Sep 17, 2018 14:05
--- NOTE | 2018-09-17 14:39 | Therapy Group Daily Note ---
Therapy Daily Group Note Patient Education Topic Other List Below (Intro to Rehab and benefits of exercise) Exercises LE Seated Exercise, UE Exercise Other/Notes Pt. participated in group PT OT session this date. Pt. required min assist ambulating to and from with FWW. Pt. festinating especially in tight areas and doorways. Pts. introduced selves and socialized utilizing a pair of jumbo foam dice . Pts. laughed and shared fun life events. Pts. lead the exercise group by reading from written illustrated cards with others following the example. Pt. to room after Rx, up in recliner per his request with flores at hand and alarm in chair Start Time: 13:00 Stop Time: 14:20 Total Billed Treatment Time: 80 Total Billed Treatment 1,GRP SANDEE BENNETT LABEL FOLDER Sep 17, 2018 14:39
[2018-09-17] MEDS: TAMSULOSIN 0.4 MG (FLOMAX) CAP PO SCH (16:31)
[2018-09-17 18:00] VITALS: BP 148/74
[2018-09-17] MEDS: inSUlin DETERMIR 1 UNIT/0.01 ML (LEVEMIR) CHARGE PER UNIT SQ SCH (21:26)
[2018-09-17] MEDS: meTOprolol SUCCINATE 100 MG (TOPROL XL) TAB PO SCH (21:27)
[2018-09-17] MEDS: PHENYTOIN 100 MG (DILANTIN) CAP PO SCH (21:27)
[2018-09-18 05:27] VITALS: BP 125/60
[2018-09-18] MEDS: BETHANECHOL 25 MG (URECHOLINE) TAB PO SCH ×3 (05:54→15:19)
[2018-09-18] MEDS: glipiZIDE 5 MG (GLUCOTROL) TAB PO SCH (05:54)
[2018-09-18] MEDS: MULTIVIT W/MINERALS TAB (THERAGRAN M) PO SCH (05:55)
[2018-09-18] MEDS: OMEGA 3 (FISH OIL) 1000 MG CAP PO SCH ×2 (05:55→17:01)
[2018-09-18] MEDS: inSUlin ASPART (NovoLOG) 1 UNIT/0.01 ML (CHARGE PER UNIT) SC SCH ×4 (06:54→20:46)
--- NOTE | 2018-09-18 07:50 | PM & R (SOAP) Progress Note ---
Subjective This was a face to face visit with the patient. Date Seen by Provider: Sep 18, 2018 Time Seen by Provider: 07:40 Subjective/Events-last exam Patient was seen in his room this AM Luis Enrique aldana Discussed case with RN Sliding scale Insulin regimen added for better control of DM Patient Voiding but incontinent,Patient Min to mod assist for transfers Date Identified: Sep 18, 2018 Time Identified: 07:30 Medication Intervention: SS Insulin added for poorly controlled DM Review of Systems Genitourinary: Incontinence Neurological: Weakness, Confusion Objective Physician Exam Last Set of Vital Signs Vital Signs Date Time Temp Pulse Resp B/P (MAP) Pulse Ox O2 Delivery O2 Flow Rate FiO2 09/18/18 05:27 99.2 60 18 125/60 (81) 94 Room Air Capillary Refill : I&O Intake and Output 09/18/18 00:00 Intake Total 1150 ml Balance 1150 ml Intake Oral 1150 ml Bladder Scan Volume Amount 135 ml 184 ml # Voids 8 # Bowel Movements 1 General: Alert, Cooperative, No Acute Distress HEENT: Atraumatic, PERRLA, EOMI, Mucous Memb Moist/[place] Neck: Supple, No JVD Lungs: Clear to Auscultation Heart: Regular Rate, Normal S1, Normal S2 Abdomen: Normal Bowel Sounds, Soft, No Tenderness Extremities: No Cyanosis, No Edema Skin: No Rashes Neuro: Normal Speech, Other (Impaired strength Left leg Impaired balance Mild dementia with memory loss) Results Lab Data Laboratory Tests 09/15/18 11:55: Glucometer 188H 09/15/18 15:29: Glucometer 320H 09/15/18 21:02: Glucometer 342H 09/16/18 04:53: Glucometer 120H 09/16/18 10:59: Glucometer 224H 09/16/18 15:33: Glucometer 398H 09/16/18 21:51: Glucometer 353H 09/17/18 05:05: Glucometer 148H 09/17/18 09:24: Glucometer 211H 09/17/18 10:34: Glucometer 209H 09/17/18 15:55: Glucometer 314H 09/17/18 20:31: Glucometer 449*H 09/18/18 06:04: Glucometer 211H Assessment/Plan Assessment and Plan Nasra Isabel on Sinemet Dementia multifactorial DM poorly controlled CAD Constipation Urinary incontinence improved with some incontinence DR Villanueva adjusting meds PAF on ELIquis HX of nonsustained V tach noted 2015 maintained on Amiodarone SSS s/p Pacemaker Plan Continue Pt/OT Adjust Insulin as needed Team Conference next week F/U with PCP and Co-Morbidities that are continuing to impact the rehab process: (include details ) YOVANY DANIELS MD Sep 18, 2018 07:49
[2018-09-18] MEDS: amLODIPine 10 MG (NORVASC) TAB PO SCH (08:07)
[2018-09-18] MEDS: AMIODARONE 200 MG (CORDARONE) TAB PO SCH (08:07)
[2018-09-18] MEDS: APIXABAN 5 MG (ELIQUIS) TABLET PO SCH ×2 (08:07→20:46)
[2018-09-18] MEDS: SINEMET 25/100 (CARBIDOPA/LEVODOPA) TAB PO SCH ×3 (08:07→20:46)
[2018-09-18] MEDS: GABAPENTIN 300 MG (NEURONTIN) CAP PO SCH ×2 (08:07→20:47)
[2018-09-18] MEDS: DOCUSATE SODIUM 100 MG (COLACE) CAP PO SCH ×2 (08:08→19:37)
[2018-09-18] MEDS: QUINAPRIL 40 MG PO SCH (08:08)
--- NOTE | 2018-09-18 10:19 | Progress Note-Urology ---
Progress Note-Urology Progress Notes/Assess & Plan Progress/Assessment & Plan PVR CONTINUES LESS THAN 150 Final Diagnosis URINE RETENTION EVERTON GARCIA MD Sep 18, 2018 10:19
--- NOTE | 2018-09-18 11:39 | Physical Therapy Daily Note ---
PT Daily Note-Current Subjective Pt. in bed asleep first few attempts. Now awake with nursing in room. Pt. minimally vocal. Pain Location: No Pain Reported Appearance urine odor, incont of urine Mental Status Patient Orientation: Confused Transfers Therapy Code Descriptions/Definitions Functional [place] Measure: 0=Not Assessed/NA 4=Minimal Assistance 1=Total Assistance 5=Supervision or Setup 2=Maximal Assistance 6=Modified [place] 3=Moderate Assistance 7=Complete [place] Therapy Quality Codes: 6 Independent with activity with or without an assistive device 5 Patient requires set up or clean up by helper. Patient completes activity by themselves 4 Supervision or touching assist (CGA). [place] provide cues , steadying assist 3 The helper provides less than half the effort to complete the activity 2 The helper provides more than half the effort to complete the activity 1 Dependent. The helper does all the effort to complete an activity 7 Patient refused to complete or attempt activity 9 The patient did not perform the activity before the current illness or injury 88 Not attempted due to Medical conditions or safety concerns Transfers (B, C, W/C) (FIM): 3 Scootin Rollin Supine to/from Sit: 3 Sit to/from Stand: 3 much difficulty with TRFs this date, moving with resistance, Weight Bearing Right Lower Extremity: Right Full Weight Bearing Left Lower Extremity: Left Full Weight Bearing Gait Training Does the Patient Walk?: Yes Gait (FIM): 3 Distance (FIM): 3=150 ft (x2) Gait Level of Assist: 3 Gait Persons Needed: 1 Gait Assistive Device: FWW gait very difficult, leaning heavy to left, festinating, freezing episodes, resistive with tactile cues, mod assist and at risk for falls, Exercises NuStep Minutes: 10 NuStep Workload: 3 Neuromuscular pt. struggling with where he is in space even in sitting on Nustep . More settled in recliner. Treatments mod assist to roll and sup to sit TRF, difficulty sit to stand for donning clothing and clean up for brief change. Parkinsons like resistive position in FWW, appears fearful of movement Assessment Current Status: Fair Progress increased difficulty with movement this date, gait requiring mod assist, TRFs min to mod PT Short Term Goals Short Term Goals Time Frame: Sep 15, 2018 Transfers (B,C,W/C) (FIM): 4 Gait (FIM): 1 Gait Distance Comment: 20' Gait Level of Assist: 3 Gait Assistive Device: Walker Cristian Wheelchair Distance: 20' PT Halfway Goals Bender Helper Goals PT Bender Helper Goals Time Frame: Sep 29, 2018 Transfers (B,C,W/C) (FIM): 4 Sit to Lying (QC): 4 Lying-Sitting on Side/Bed(QC): 4 Sit to Stand (QC): 4 Rollin Roll Left to Right (QC): 4 Chair/Tmp-ci-Sijac Xfer(QC): 4 Car Transfer (QC): 4 Does the Patient Walk: Yes Gait (FIM): 2 Gait distance (FIM): 1=up to 49 ft Distance: 50' Walk 10 feet (QC): 3 Walk 10ft-Uneven Surface(QC): 3 Walk 50ft with 2 Turns (QC): 3 Walk 150 ft (QC): 0 Gait Level of Assist: 4 Gait Assistive Device: Walker Cristian Does the Pt use WC or Scooter?: Yes Wheelchair (FIM): 2 Wheelchair distance (FIM): 1=up to 49 ft Distance: 50 Wheelchair Level of Assist: 4 Wheel 50 feet with 2 turns (QC: 4 Stairs (FIM): 1 # of Steps: 1 1 Step (curb) (QC): 3 4 Steps (QC): 0 12 Steps (QC): 0 Stairs Level Of Assist: 4 Picking up an Object (QC): 0 PT Plan Treatment/Plan Treatment Plan: Continue Plan of Care Treatment Plan: Bed Mobility, Concurrent Therapy, Education, Functional Activity Navya, Functional Strength, Group Therapy, Gait, Safety, Therapeutic Exercise, Transfers Treatment Duration: Sep 29, 2018 Frequency: At least 5 of 7 days/Wk (IRF) Estimated Hrs Per Day: 1.5 hours per day Patient and/or Family Agrees t: Yes Safety Risks/Education Patient Education: Gait Training, Transfer Techniques, Correct Positioning, Disease Process, Safety Issues Teaching Recipient: Patient Teaching Methods: Demonstration, Discussion Response to Teaching: Unable to Return Demonstration, Unable to Comprehend, Reinforcement Needed Time/GCodes Time In: 1100 Time Out: 1125 Total Billed Treatment Time: 25 Total Billed Treatment 1,EX10m,GT15m G Codes Necessary: SANDEE Avilez ROLLER MAKER Sep 18, 2018 11:39
[2018-09-18 16:56] VITALS: BP 137/71
[2018-09-18] MEDS: TAMSULOSIN 0.4 MG (FLOMAX) CAP PO SCH (17:01)
[2018-09-18] MEDS: PHENYTOIN 100 MG (DILANTIN) CAP PO SCH (20:46)
[2018-09-18] MEDS: inSUlin DETERMIR 1 UNIT/0.01 ML (LEVEMIR) CHARGE PER UNIT SQ SCH (20:46)
[2018-09-18] MEDS: meTOprolol SUCCINATE 100 MG (TOPROL XL) TAB PO SCH (20:47)
[2018-09-19 04:14] VITALS: BP 142/63
[2018-09-19] MEDS: inSUlin ASPART (NovoLOG) 1 UNIT/0.01 ML (CHARGE PER UNIT) SC SCH ×4 (04:51→20:41)
[2018-09-19] MEDS: OMEGA 3 (FISH OIL) 1000 MG CAP PO SCH ×2 (05:52→16:47)
[2018-09-19] MEDS: glipiZIDE 5 MG (GLUCOTROL) TAB PO SCH (05:52)
[2018-09-19] MEDS: BETHANECHOL 25 MG (URECHOLINE) TAB PO SCH ×3 (05:52→16:47)
[2018-09-19] MEDS: MULTIVIT W/MINERALS TAB (THERAGRAN M) PO SCH (05:52)
[2018-09-19 09:24] VITALS: BP 170/76
[2018-09-19] MEDS: GABAPENTIN 300 MG (NEURONTIN) CAP PO SCH ×2 (09:25→20:42)
[2018-09-19] MEDS: SINEMET 25/100 (CARBIDOPA/LEVODOPA) TAB PO SCH ×3 (09:25→20:42)
[2018-09-19] MEDS: APIXABAN 5 MG (ELIQUIS) TABLET PO SCH ×2 (09:25→20:42)
[2018-09-19] MEDS: amLODIPine 10 MG (NORVASC) TAB PO SCH (09:25)
[2018-09-19] MEDS: AMIODARONE 200 MG (CORDARONE) TAB PO SCH (09:25)
[2018-09-19] MEDS: QUINAPRIL 40 MG PO SCH (09:26)
[2018-09-19] MEDS: DOCUSATE SODIUM 100 MG (COLACE) CAP PO SCH ×2 (09:27→20:42)
[2018-09-19 14:50] VITALS: BP 162/75
[2018-09-19 15:37] VITALS: BP 131/61
[2018-09-19] MEDS: TAMSULOSIN 0.4 MG (FLOMAX) CAP PO SCH (16:46)
[2018-09-19] MEDS: PHENYTOIN 100 MG (DILANTIN) CAP PO SCH (20:42)
[2018-09-19] MEDS: meTOprolol SUCCINATE 100 MG (TOPROL XL) TAB PO SCH (20:42)
[2018-09-19] MEDS: inSUlin DETERMIR 1 UNIT/0.01 ML (LEVEMIR) CHARGE PER UNIT SQ SCH (20:42)
[2018-09-19 20:43] VITALS: BP 159/82
[2018-09-20 05:05] VITALS: BP 160/74
[2018-09-20] MEDS: glipiZIDE 5 MG (GLUCOTROL) TAB PO SCH (06:12)
[2018-09-20] MEDS: MULTIVIT W/MINERALS TAB (THERAGRAN M) PO SCH (06:12)
[2018-09-20] MEDS: inSUlin ASPART (NovoLOG) 1 UNIT/0.01 ML (CHARGE PER UNIT) SC SCH ×4 (06:12→20:51)
[2018-09-20] MEDS: BETHANECHOL 25 MG (URECHOLINE) TAB PO SCH ×3 (06:12→16:14)
[2018-09-20] MEDS: OMEGA 3 (FISH OIL) 1000 MG CAP PO SCH ×2 (06:12→16:17)
--- NOTE | 2018-09-20 07:37 | Progress Note (SOAP) ---
Subjective Time Seen by a Provider: 07:33 Subjective/Events-last exam Patient still wetting himself. Patient eating good. Patient has breakdown in lower back. Patient getting around better Objective Exam Vital Signs Date Time Temp Pulse Resp B/P (MAP) Pulse Ox O2 Delivery O2 Flow Rate FiO2 09/20/18 05:05 98.7 60 16 160/74 (102) 98 Room Air 09/19/18 20:52 Room Air 09/19/18 20:43 70 159/82 (107) 09/19/18 15:37 97.5 58 14 131/61 (84) 95 Room Air 09/19/18 14:50 64 162/75 (104) 09/19/18 10:24 Room Air 09/19/18 09:24 60 170/76 (107) I & O 09/20/18 07:00 Intake Total 940 ml Balance 940 ml Capillary Refill : General Appearance: No Apparent Distress, WD/WN HEENT: Normal ENT Inspection Neck: Normal Inspection Respiratory: Lungs Clear, No Accessory Muscle Use, No Respiratory Distress Cardiovascular: Regular Rate, Rhythm, No Murmur Gastrointestinal: non tender, soft Results Lab Laboratory Tests 09/19/18 11:01: Glucometer 236H 09/19/18 15:36: Glucometer 325H 09/19/18 19:55: Glucometer 330H 09/20/18 04:39: Glucometer 209H Assessment/Plan Assessment/Plan Assess & Plan/Chief Complaint Debility. Parkinson disease. Dementia. Mental status change improving. Diabetes. Increased the dose of Sinemet. . 09/10/18. Debility better. Parkinson disease. Dementia. Mental status change improved. Diabetes sugars still little bit high. Cogwheel motion of right arm much less. . 09/13/18. Debility better. Parkinson disease. Dementia. Diabetes patient hypoglycemic this morning. Patient still has Patel catheter in. . 09/14/18. Debility. Patel catheter removed. Straight catheter once. Dementia. Diabetes. Patient improving. . 09/15/18. Debility. Dementia. Diabetes. Patient walking better. Patient standing up straight. Patient still has cogwheel motion of the right upper arm. Patient talking better. Patient improving. . 09/16/18. Debility better. Dementia improving. Diabetes. Patient still having Trouble with his urination. Parkinson disease. . 09/17/18. Debility better. Patient has breakdown in the lower back. Diabetes. Dementia. Parkinson disease. Patient resting comfortably today. . Debility. Diabetes. Dementia. Parkinson disease. Patient eating good Clinical Quality Measures DVT/VTE Risk/Contraindication: Risk Factor Score Per Nursin RFS Level Per Nursing on Admit: 4+=Very High DENIZ KENT DO Sep 20, 2018 07:37
--- NOTE | 2018-09-20 08:28 | Cardiology Progress Note ---
Subjective Date Seen by Provider: Sep 20, 2018 Time Seen by Provider: 08:15 Subjective/Events-last exam Patient is in bed, no new complaint. Denies any CP or dyspnea. Objective-Cardiology Exam Last Set of Vital Signs Vital Signs 09/20/18 05:05 Temp 98.7 Pulse 60 Resp 16 B/P (MAP) 160/74 (102) Pulse Ox 98 O2 Delivery Room Air Capillary Refill : I&O Intake and Output 09/20/18 00:00 Intake Total 850 ml Balance 850 ml Intake Oral 850 ml Bladder Scan Volume Amount 331 ml 124 ml 162 ml # Voids 8 # Bowel Movements 1 General: Alert, Cooperative, No Acute Distress HEENT: Atraumatic, PERRLA, EOMI, Mucous Memb Moist/[place] Neck: Supple, No JVD Lungs: Clear to Auscultation Heart: Regular Rate, Normal S1, Normal S2 Abdomen: Normal Bowel Sounds, Soft, No Tenderness Extremities: No Cyanosis, No Edema Skin: No Rashes Neuro: Normal Speech, Other (Impaired strength Left leg Impaired balance Mild dementia with memory loss) A/P-Cardiology Admission Diagnosis Generalized weakness PAF CAD HTN Assessment/Plan Generalized weakness, improving, workup has been negative. Continue his physical therapy Change in mental status, had previous hospitalization and evaluation in the ER for change in mental status in the past, workup at that time was negative. Appears back to baseline. Continue with physical therapy Parkinson, started on Sinemet, followed by primary team Sick sinus syndrome, history of episodes of bradycardia with complete heart block, frequent PVCs, ventricular bigeminy and ventricular couplets, short PAT' s. Status post permanent pacemaker implantation April 2015, using a Medtronic device Advisa DR GONZALEZ, good sensing and capture. Continue to monitor History of nonsustained ventricular tachycardia, noted on interrogation on July 02, 2016, has been maintained on amiodarone 200 mg daily. Continue to monitor Paroxysmal atrial fibrillation, maintained on Eliquis. Continue to monitor [id number] score of 6, high risk, yearly risk of stroke without OAC is 9.8%. Maintained on Eliquis, continue to monitor Coronary artery disease, multiple interventions in the past, most recent cardiac catheterization done March 14, 2015 revealed extensive coronary artery disease, heavily calcified system, with 40 percent distal left main coronary artery stenosis. 3 stents in LAD proximally with 50-60 percent in-stent restenosis. Distal LAD had 95 percent stenosis followed by 80 percent stenosis long segment, very small artery not amendable to intervention. Total occlusion of the first obtuse marginal branch filled by collaterals. Patent stent in the proximal mid second OM branch with moderate disease in the distal proper circumflex artery. Patent stent in the RCA with 50 percent proximal right coronary artery stenosis and 50-60 distal right coronary artery stenosis. Asymptomatic, continue to monitor Stress test in July 2016 showed fixed defect involving the whole inferior wall and inferoapical segment with dilated left ventricle, inferior wall hypokinesia, Ejection fraction 54 percent. Echocardiogram showed ejection fraction 60 percent, dilated left atrium, mild to moderate mitral regurgitation and pulmonary artery pressure of 35 mmHg. continue to monitor Hypertension, mildly elevated blood pressure, I am hesitant to increase his blood pressure medications due to to the fact that he might have orthostatic hypotension or syncope. He is currently asymptomatic. Continue on current medication monitor Hyperlipidemia, I will continue to hold statin due to generalized weakness and monitor his response History of CVA in 2010, mild residual right sided weakness, episodes of confusion occurred over the last year where patient became confused and drove over once to [place] and once to [place]. It was felt that it was a global ischemic attack with confusion, workup at that time was negative. He was seen by Dr. Jiménez and started on Dilantin, the dose was increased by Dr. Damon, followed and managed by primary care physician Diabetes mellitus, managed by primary care physician. Carotid stenosis, Seen and followed by Dr Simmons, continue to monitor Ex-Tobaccoism, patient smokes pipe, he stopped smoking in October, encouraged to continue with smoking cessation Peripheral neuropathy, maintained on gabapentin. Continue on current medication , continue to monitor Sleep apnea, severe on sleep study in October 2015, does not use his machine. Clinical Quality Measures DVT/VTE Risk/Contraindication: Risk Factor Score Per Nursin RFS Level Per Nursing on Admit: 4+=Very High JOSELUIS CLINTON Sep 20, 2018 08:28
[2018-09-20 09:01] VITALS: BP 163/69
[2018-09-20] MEDS: SINEMET 25/100 (CARBIDOPA/LEVODOPA) TAB PO SCH ×3 (09:02→20:35)
[2018-09-20] MEDS: APIXABAN 5 MG (ELIQUIS) TABLET PO SCH ×2 (09:02→20:35)
[2018-09-20] MEDS: GABAPENTIN 300 MG (NEURONTIN) CAP PO SCH ×2 (09:02→20:35)
[2018-09-20] MEDS: AMIODARONE 200 MG (CORDARONE) TAB PO SCH (09:02)
[2018-09-20] MEDS: amLODIPine 10 MG (NORVASC) TAB PO SCH (09:02)
[2018-09-20] MEDS: QUINAPRIL 40 MG PO SCH (09:03)
[2018-09-20] MEDS: DOCUSATE SODIUM 100 MG (COLACE) CAP PO SCH ×2 (09:05→20:32)
--- NOTE | 2018-09-20 09:39 | Speech Therapy Daily Note ---
Speech Daily Progress Note Subjective Date Seen by Provider: Sep 20, 2018 Time Seen by Provider: 00:30 Patient was having trouble staying awake, however he was able to participate with frequent verbal and/or tactile cues. Objective Patient completed memory tasks for id locations where common items are used at 75% accuracy given moderate repetitions. Assessment Assessment Current Status: Good Progress Treatment Plan Continue Plan of Care Communication Comprehension: 2 Expression: 2 Social Cognition Social Interaction: 3 Problem Solvin Memory: 3 Speech Short Term Goals Short Term Goals Short Term Goals 1) Patient will complete simple memory tasks at 75% with minimal cues. 2) Patient will complete simple problem solving tasks at 75% with minimal cues. 3) Patient will complete simple 1 step directions with 75% with minimal cues. Speech Treasury Specialist Goals Treasury Specialist Goals Patient will improve cognitive-communication tasks for improved safety and independence. Speech-Plan Treatment Plan Speech Therapy Treatment Plan: Continue Plan of Care Patient has progressed with all goals. Treatment Duration: Sep 08, 2018 Frequency: 5 times per week Estimated Hrs Per Day: .5 hour per day Rehab Potential: Fair Barriers to Learning: Patient is lethargic much of the time. He also has a dementia diagnosis. Pt/Family Agrees to Plan: Yes Safety Risks/Education Teaching Recipient: Patient Teaching Methods: Discussion Response to Teaching: Verbalize Understanding Education Topics Provided: Safety within his room. Time Speech Therapy Time In: 08:30 Speech Therapy Time Out: 09:00 Total Billed Time: 30 Billed Treatment Time [address] Sep 20, 2018 09:39
--- NOTE | 2018-09-20 09:58 | Physical Therapy Daily Note ---
PT Daily Note-Current Subjective Pt. in bed. Keeps saying he will get up and agrees to Rx but when cued and instructed to get up pt. does not move, this PIZZA CHEF having to use mod assist to get pt. out of bed Pain Numeric Pain Scale: 0-No Pain Mental Status Patient Orientation: Confused Transfers Therapy Code Descriptions/Definitions Functional [place] Measure: 0=Not Assessed/NA 4=Minimal Assistance 1=Total Assistance 5=Supervision or Setup 2=Maximal Assistance 6=Modified [place] 3=Moderate Assistance 7=Complete [place] Therapy Quality Codes: 6 Independent with activity with or without an assistive device 5 Patient requires set up or clean up by helper. Patient completes activity by themselves 4 Supervision or touching assist (CGA). [place] provide cues , steadying assist 3 The helper provides less than half the effort to complete the activity 2 The helper provides more than half the effort to complete the activity 1 Dependent. The helper does all the effort to complete an activity 7 Patient refused to complete or attempt activity 9 The patient did not perform the activity before the current illness or injury 88 Not attempted due to Medical conditions or safety concerns Transfers (B, C, W/C) (FIM): 3 Scootin Rollin Supine to/from Sit: 3 Sit to/from Stand: 4 Bed to/from Chair: 3 Car Transfer (QC): 4 Weight Bearing Right Lower Extremity: Right Full Weight Bearing Left Lower Extremity: Left Full Weight Bearing Gait Training Does the Patient Walk?: Yes Gait (FIM): 4 Distance (FIM): 3=150 ft (x2) Gait Level of Assist: 4 Gait Persons Needed: 1 Gait Assistive Device: FWW Pt. continues to stay far from FWW and often only has one foot in FWW, wide turns etc. Exercises Supine Ex: Bridging, Rolling, Heel Slides, Hip abd/add Supine Reps: 12 NuStep Minutes: 12 NuStep Workload: 3 Assessment Current Status: Fair Progress cognition issues increasing. Pt. needs more and more tactile cues and assist to initiate movement PT Short Term Goals Short Term Goals Time Frame: Sep 15, 2018 Transfers (B,C,W/C) (FIM): 4 Gait (FIM): 1 Gait Distance Comment: 20' Gait Level of Assist: 3 Gait Assistive Device: Walker Cristian Wheelchair Distance: 20' PT Long-Term Goals Sql Analyst Goals PT Sql Analyst Goals Time Frame: Sep 29, 2018 Transfers (B,C,W/C) (FIM): 4 Sit to Lying (QC): 4 Lying-Sitting on Side/Bed(QC): 4 Sit to Stand (QC): 4 Rollin Roll Left to Right (QC): 4 Chair/[id number] Xfer(QC): 4 Car Transfer (QC): 4 Does the Patient Walk: Yes Gait (FIM): 2 Gait distance (FIM): 1=up to 49 ft Distance: 50' Walk 10 feet (QC): 3 Walk 10ft-Uneven Surface(QC): 3 Walk 50ft with 2 Turns (QC): 3 Walk 150 ft (QC): 0 Gait Level of Assist: 4 Gait Assistive Device: Walker Cristian Does the Pt use WC or Scooter?: Yes Wheelchair (FIM): 2 Wheelchair distance (FIM): 1=up to 49 ft Distance: 50 Wheelchair Level of Assist: 4 Wheel 50 feet with 2 turns (QC: 4 Stairs (FIM): 1 # of Steps: 1 1 Step (curb) (QC): 3 4 Steps (QC): 0 12 Steps (QC): 0 Stairs Level Of Assist: 4 Picking up an Object (QC): 0 PT Plan Treatment/Plan Treatment Plan: Continue Plan of Care Treatment Plan: Bed Mobility, Concurrent Therapy, Education, Functional Activity Navya, Functional Strength, Group Therapy, Gait, Safety, Therapeutic Exercise, Transfers Treatment Duration: Sep 29, 2018 Frequency: At least 5 of 7 days/Wk (IRF) Estimated Hrs Per Day: 1.5 hours per day Patient and/or Family Agrees t: Yes Safety Risks/Education Patient Education: Gait Training, Transfer Techniques, Steps, Correct Positioning, Disease Process, Safety Issues Teaching Recipient: Patient Teaching Methods: Discussion Response to Teaching: Unable to Return Demonstration, Unable to Comprehend, Reinforcement Needed Time/GCodes Time In: 900 Time Out: 1000 Total Billed Treatment Time: 60 Total Billed Treatment 1GT25,FA15,EX20m G Codes Necessary: SANDEE Avilez PIZZA CHEF Sep 20, 2018 09:58
--- NOTE | 2018-09-20 10:25 | Cardiology Progress Note ---
Subjective Date Seen by Provider: Sep 20, 2018 Time Seen by Provider: 10:23 Subjective/Events-last exam Patient is in bed, feeling better, still having some confusion, no chest pain Review of Systems General: No Chills, No Night Sweats, No Fatigue, No Malaise, No Appetite, No Other HEENT: No Head Aches, No Visual Changes, No Eye Pain, No Ear Pain, No Dysphasia , No Sinus Congestion, No Post Nasal Drip, No Sore Throat, No Other Pulmonary: No Dyspnea, No Cough, No Pleuritic Chest Pain, No Other Cardiovascular: No: Chest Pain, Palpitations, Orthopnea, Paroxysmal Noc. Dyspnea, Edema, Lt Headedness, Other Objective-Cardiology Exam Last Set of Vital Signs Vital Signs 09/20/18 09/20/18 09/20/18 05:05 09:01 09:09 Temp 98.7 Pulse 60 Resp 16 B/P (MAP) 163/69 (100) Pulse Ox 98 O2 Delivery Room Air Capillary Refill : I&O Intake and Output 09/20/18 00:00 Intake Total 850 ml Balance 850 ml Intake Oral 850 ml Bladder Scan Volume Amount 331 ml 124 ml 162 ml # Voids 8 # Bowel Movements 1 General: Alert, Cooperative, No Acute Distress HEENT: Atraumatic, PERRLA, EOMI, Mucous Memb Moist/[place] Neck: Supple, No JVD Lungs: Clear to Auscultation Heart: Regular Rate, Normal S1, Normal S2 Abdomen: Normal Bowel Sounds, Soft, No Tenderness Extremities: No Cyanosis, No Edema Skin: No Rashes Neuro: Normal Speech, Other (Impaired strength Left leg Impaired balance Mild dementia with memory loss) Results Lab Laboratory Tests Test 09/19/18 11:01 09/19/18 15:36 09/19/18 19:55 09/20/18 04:39 Range/Units Glucometer 236 H 325 H 330 H 209 H 70-110 MG/DL A/P-Cardiology Admission Diagnosis Generalized weakness PAF CAD HTN Assessment/Plan Generalized weakness, improving, workup has been negative. Continue his physical therapy Change in mental status, had previous hospitalization and evaluation in the ER for change in mental status in the past, workup at that time was negative. Appears back to baseline. Continue with physical therapy Parkinson, started on Sinemet, followed by primary care team Sick sinus syndrome, history of episodes of bradycardia with complete heart block, frequent PVCs, ventricular bigeminy and ventricular couplets, short PAT' s. Status post permanent pacemaker implantation April 2015, using a Medtronic device Advisa DR GONZALEZ, good sensing and capture. Continue to monitor History of nonsustained ventricular tachycardia, noted on interrogation on July 02, 2016, has been maintained on amiodarone 200 mg daily. Continue to monitor Paroxysmal atrial fibrillation, maintained on Eliquis. Continue to monitor [id number] score of 6, high risk, yearly risk of stroke without OAC is 9.8%. Maintained on Eliquis, continue to monitor Coronary artery disease, multiple interventions in the past, most recent cardiac catheterization done March 14, 2015 revealed extensive coronary artery disease, heavily calcified system, with 40 percent distal left main coronary artery stenosis. 3 stents in LAD proximally with 50-60 percent in-stent restenosis. Distal LAD had 95 percent stenosis followed by 80 percent stenosis long segment, very small artery not amendable to intervention. Total occlusion of the first obtuse marginal branch filled by collaterals. Patent stent in the proximal mid second OM branch with moderate disease in the distal proper circumflex artery. Patent stent in the RCA with 50 percent proximal right coronary artery stenosis and 50-60 distal right coronary artery stenosis. Asymptomatic, continue to monitor Stress test in July 2016 showed fixed defect involving the whole inferior wall and inferoapical segment with dilated left ventricle, inferior wall hypokinesia, Ejection fraction 54 percent. Echocardiogram showed ejection fraction 60 percent, dilated left atrium, mild to moderate mitral regurgitation and pulmonary artery pressure of 35 mmHg. continue to monitor Hypertension, mildly elevated blood pressure, I am hesitant to increase his blood pressure medications due to to the fact that he might have orthostatic hypotension or syncope. He is currently asymptomatic. Continue on current medication monitor Hyperlipidemia, I will continue to hold statin due to generalized weakness and monitor his response History of CVA in 2010, mild residual right sided weakness, episodes of confusion occurred over the last year where patient became confused and drove over once to [place] and once to [place]. It was felt that it was a global ischemic attack with confusion, workup at that time was negative. He was seen by Dr. Jiménez and started on Dilantin, the dose was increased by Dr. Damon, followed and managed by primary care physician Diabetes mellitus, managed by primary care physician. Carotid stenosis, Seen and followed by Dr Simmons, continue to monitor Ex-Tobaccoism, patient smokes pipe, he stopped smoking in October, encouraged to continue with smoking cessation Peripheral neuropathy, maintained on gabapentin. Continue on current medication , continue to monitor Sleep apnea, severe on sleep study in October 2015, does not use his machine. Clinical Quality Measures DVT/VTE Risk/Contraindication: Risk Factor Score Per Nursin RFS Level Per Nursing on Admit: 4+=Very High SEBASTIÁN VALLE MD Sep 20, 2018 10:25
--- NOTE | 2018-09-20 14:38 | Occupational Ther Daily Note ---
OT Current Status-Daily Note Subjective No pain reported. Appearance Pt. up in chair. Agrees to work with OT. Mental Status/Objective Patient Orientation: Confused Therapy Code Descriptions/Definitions Functional [place] Measure: 0=Not Assessed/NA 4=Minimal Assistance 1=Total Assistance 5=Supervision or Setup 2=Maximal Assistance 6=Modified [place] 3=Moderate Assistance 7=Complete [place] ADL-Treatment Therapy Code Descriptions/Definitions Functional [place] Measure: 0=Not Assessed/NA 4=Minimal Assistance 1=Total Assistance 5=Supervision or Setup 2=Maximal Assistance 6=Modified [place] 3=Moderate Assistance 7=Complete [place] Therapy Quality Codes: 6 Independent with activity with or without an assistive device 5 Patient requires set up or clean up by helper. Patient completes activity by themselves 4 Supervision or touching assist (CGA). [place] provide cues , steadying assist 3 The helper provides less than half the effort to complete the activity 2 The helper provides more than half the effort to complete the activity 1 Dependent. The helper does all the effort to complete an activity 7 Patient refused to complete or attempt activity 9 The patient did not perform the activity before the current illness or injury 88 Not attempted due to Medical conditions or safety concerns Grooming (FIM): 2 (Pt. brings comb to hair, but then doesn't comb hair thoroughly. OT does this for him. Pt. declines brushing teeth.) Upper Body (FIM): 3 (Pt. is able to doff shirt with max cues, but requires max assist to don shirt.) Upper Body Dressing (QC): 3 Lower Body Dressing (FIM): 3 (Pt. requires max cues and mod assist overall for sequencing of LE dressing. Pt. requires assistance to don brief, shorts, and socks.) Lower Body Dressing (QC): 3 On/Off Footwear (QC): 4 Toileting (FIM): 1 (Pt. is incontinent in brief.) Transfers (B, C, W/C) (FIM): 4 (Min assist sit-stand.) Other Treatment Pt. declines showering. States that he is in clean clothing, but then when OT checks, pt. is in same clothing that he slept in. Nursing has just finished changing pt's brief and cleansing roderick area. OT assisted pt. to change clothing. After ADLs pt. ambulated to therapy gym with OT. Required min assist and max cues to sequence and ambulate to gym. Tolerated 10 minutes on armbike at min resistance, with cues to continue task. Worked on this to increase overall UE strength. Ambulated back to room and transferred back to chair. All needs met. Education OT Patient Education: Correct positioning, Modified ADL techniques, Progress toward Goal/Update tx plan, Purpose of tx/functional activities, Reviewed precautions, Rehab process, Transfer techniques Teaching Recipient: Patient Teaching Methods: Demonstration, Discussion Response to Teaching: Verbalize Understanding, Return Demonstration OT Short Term Goals Short Term Goals Time Frame: Sep 15, 2018 Grooming(FIM): 5 Transfers (B,C,W/C) (FIM): 4 Toilet/Commode Transfer(FIM): 4 1=Demonstrate adherence to instructed precautions during ADL tasks. 2=Patient will verbalize/demonstrate understanding of assistive devices/ modifications for ADL. 3=Patient will improve strength/tolerance for activity to enable patient to perform ADL's. OT Jr. Systems Administrator Goals Jr. Systems Administrator Goals Time Frame: Sep 29, 2018 Eating (FIM): 6 Eating (QC): 6 Groomin Oral Hygiene (QC): 5 Bathing(FIM): 5 Shower/Bathe Self (QC): 5 Upper Body Dressing(FIM): 6 Upper Body Dressing (QC): 6 Lower Body Dressing(FIM): 6 Lower Body Dressing (QC): 6 On/Off Footwear (QC): 6 Toileting(FIM): 6 Toileting Hygiene (QC): 6 Toilet/Commode Transfer(FIM): 6 Toilet/Commode Transfer (QC): 6 Shower Transfer(FIM): 5 Additional Goals: 1-Demonstrate ADL Tasks, 2-Verbalize Understanding, 3- ImproveStrength/[place] 1=Demonstrate adherence to instructed precautions during ADL tasks. 2=Patient will verbalize/demonstrate understanding of assistive devices/ modifications for ADL. 3=Patient will improve strength/tolerance for activity to enable patient to perform ADL's. OT Education/Plan Problem List/Assessment Assessment: Decreased Activ Tolerance, Decreased Safety Aware, Dependent Transfers, Impaired Bed Mobility, Impaired Cognition, Impaired I ADL's, Impaired Self-Care Skills Pt would benefit from skilled OT to increase his independence in basic self care Discharge Recommendations Plan/Recommendations: Continue POC Therapy D/C Recommendations: Home w/ Family Support Treatment Plan/Plan of Care Treatment,Training & Education: Yes Patient would benefit from OT for education, treatment and training to promote independence in ADL's, mobility, safety and/or upper extremity function for ADL' s. Plan of Care: ADL Retraining, Caregiver Training, Functional Mobility, Group Exercise/Act as Ind (education, exercise, socialization, funct activities, communication), UE Funct Exercise/Act, UE Neuromus Re-Ed/Coord, Visual/ Perceptual Retrain Treatment Duration: Sep 29, 2018 Frequency: At least 5 of 7 days/Wk (IRF) Estimated Hrs Per Day: 1.5 hours per day (1.25 to 1.5) Agreement: Yes Rehab Potential: Fair Time/GCodes Start Time: 10:00 Stop Time: 11:00 Total Time Billed (hr/min): 60 Billed Treatment Time 1, ADL x 30minutes, Ex x 30minutes MILAD SIMON OT Sep 20, 2018 14:37
--- NOTE | 2018-09-20 14:52 | Physical Therapy Daily Note ---
PT Daily Note-Current Subjective Pt. slumped in recliner nearly ready to slide out. Agreeable to get up and around a bit Pain Location: No Pain Reported Mental Status Patient Orientation: Confused (Esteban is president) Transfers Therapy Code Descriptions/Definitions Functional [place] Measure: 0=Not Assessed/NA 4=Minimal Assistance 1=Total Assistance 5=Supervision or Setup 2=Maximal Assistance 6=Modified [place] 3=Moderate Assistance 7=Complete [place] Therapy Quality Codes: 6 Independent with activity with or without an assistive device 5 Patient requires set up or clean up by helper. Patient completes activity by themselves 4 Supervision or touching assist (CGA). [place] provide cues , steadying assist 3 The helper provides less than half the effort to complete the activity 2 The helper provides more than half the effort to complete the activity 1 Dependent. The helper does all the effort to complete an activity 7 Patient refused to complete or attempt activity 9 The patient did not perform the activity before the current illness or injury 88 Not attempted due to Medical conditions or safety concerns min assist sit to stand TRFs, sit to sup SBA Weight Bearing Right Lower Extremity: Right Full Weight Bearing Left Lower Extremity: Left Full Weight Bearing Gait Training Gait Assistive Device: FWW 200ft, slow, needs cues and assist for turns and position in FWW Exercises Supine Ex: Bridging, Hip abd/add Supine Reps: 8 Assessment Current Status: Fair Progress needs more and more assist and cuing PT Short Term Goals Short Term Goals Time Frame: Sep 15, 2018 Transfers (B,C,W/C) (FIM): 4 Gait (FIM): 1 Gait Distance Comment: 20' Gait Level of Assist: 3 Gait Assistive Device: Walker Cristian Wheelchair Distance: 20' PT Reclamation Kettle Tender Goals Retirement Goals PT Reclamation Kettle Tender Goals Time Frame: Sep 29, 2018 Transfers (B,C,W/C) (FIM): 4 Sit to Lying (QC): 4 Lying-Sitting on Side/Bed(QC): 4 Sit to Stand (QC): 4 Rollin Roll Left to Right (QC): 4 Chair/[id number]-[id number] Xfer(QC): 4 Car Transfer (QC): 4 Does the Patient Walk: Yes Gait (FIM): 2 Gait distance (FIM): 1=up to 49 ft Distance: 50' Walk 10 feet (QC): 3 Walk 10ft-Uneven Surface(QC): 3 Walk 50ft with 2 Turns (QC): 3 Walk 150 ft (QC): 0 Gait Level of Assist: 4 Gait Assistive Device: Walker Cristian Does the Pt use WC or Scooter?: Yes Wheelchair (FIM): 2 Wheelchair distance (FIM): 1=up to 49 ft Distance: 50 Wheelchair Level of Assist: 4 Wheel 50 feet with 2 turns (QC: 4 Stairs (FIM): 1 # of Steps: 1 1 Step (curb) (QC): 3 4 Steps (QC): 0 12 Steps (QC): 0 Stairs Level Of Assist: 4 Picking up an Object (QC): 0 PT Plan Treatment/Plan Treatment Plan: Continue Plan of Care Treatment Plan: Bed Mobility, Concurrent Therapy, Education, Functional Activity Navya, Functional Strength, Group Therapy, Gait, Safety, Therapeutic Exercise, Transfers Treatment Duration: Sep 29, 2018 Frequency: At least 5 of 7 days/Wk (IRF) Estimated Hrs Per Day: 1.5 hours per day Patient and/or Family Agrees t: Yes Safety Risks/Education Patient Education: Gait Training, Transfer Techniques Time/GCodes Time In: 1430 Time Out: 1450 Total Billed Treatment Time: 20 Total Billed Treatment 1,GT20m G Codes Necessary: SANDEE Avilez RISK ASSESSMENT CONSULTANT Sep 20, 2018 14:52
[2018-09-20 15:14] LABS: BASOPHILS % (AUTO) 0 % (0-10); EOSINOPHILS # (AUTO) 0.2 10^3/uL (0.0-0.3); EOSINOPHILS % (AUTO) 3 % (0-10); HEMATOCRIT 42 % (40-54); HEMOGLOBIN 14.8 G/DL (13.3-17.7); LYMPHOCYTES # (AUTO) 1.9 X 10^3 (1.0-4.0); LYMPHOCYTES % (AUTO) 23 % (12-44); MEAN CORPUSCULAR HEMOGLOBIN 32 PG (25-34); MEAN CORPUSCULAR HGB CONC 35 G/DL (32-36); MEAN CORPUSCULAR VOLUME 92 FL (80-99); MEAN PLATELET VOLUME 10.6 FL (7.4-10.4); MONOCYTES # (AUTO) 0.9 X 10^3 (0.0-1.0); MONOCYTES % (AUTO) 11 % (0-12); NEUTROPHILS # (AUTO) 5.4 X 10^3 (1.8-7.8); NEUTROPHILS % (AUTO) 64 % (42-75); PLATELET COUNT 241 10^3/uL (130-400); RED BLOOD COUNT 4.59 10^6/uL (4.35-5.85); RED CELL DISTRIBUTION WIDTH 12.7 % (10.0-14.5); WHITE BLOOD COUNT 8.4 10^3/uL (4.3-11.0)
[2018-09-20 15:28] LABS: ALBUMIN 3.1 GM/DL (3.2-4.5); BILIRUBIN,TOTAL 0.3 MG/DL (0.1-1.0); CALCIUM 9.9 MG/DL (8.5-10.1); CREATININE SERUM 1.42 MG/DL (0.60-1.30); POTASSIUM 4.6 MMOL/L (3.6-5.0); TOTAL PROTEIN 6.9 GM/DL (6.4-8.2)
--- NOTE | 2018-09-20 15:55 | Occupational Ther Daily Note ---
OT Current Status-Daily Note Subjective No pain reported. Appearance Pt. in chair, leaning back with meal tray in front, when OT came into room. Mental Status/Objective Patient Orientation: Confused Therapy Code Descriptions/Definitions Functional [place] Measure: 0=Not Assessed/NA 4=Minimal Assistance 1=Total Assistance 5=Supervision or Setup 2=Maximal Assistance 6=Modified [place] 3=Moderate Assistance 7=Complete [place] ADL-Treatment Therapy Code Descriptions/Definitions Functional [place] Measure: 0=Not Assessed/NA 4=Minimal Assistance 1=Total Assistance 5=Supervision or Setup 2=Maximal Assistance 6=Modified [place] 3=Moderate Assistance 7=Complete [place] Therapy Quality Codes: 6 Independent with activity with or without an assistive device 5 Patient requires set up or clean up by helper. Patient completes activity by themselves 4 Supervision or touching assist (CGA). [place] provide cues , steadying assist 3 The helper provides less than half the effort to complete the activity 2 The helper provides more than half the effort to complete the activity 1 Dependent. The helper does all the effort to complete an activity 7 Patient refused to complete or attempt activity 9 The patient did not perform the activity before the current illness or injury 88 Not attempted due to Medical conditions or safety concerns Toileting (FIM): 4 Toileting Hygiene (QC): 4 Transfers (B, C, W/C) (FIM): 4 (CGA sit-stand and ambulation to bathroom, and then to dining area. Pt. utilizes walker.) Toilet/Commode Transfer (FIM): 4 Toilet Transfer (QC): 4 Other Treatment Pt. states that he is still eating, but then reports that he is all finished. OT asks if pt. needs to toilet. Pt. states that he does. Noted pt. incontinent of urine in brief, but did cleanse self of urine with wipes and cues. After toileting, pt. ambulated to dining area. Pt. given several fine motor/visual perceptual tasks to work on with cues. Pt. unable to follow the directions or cues. Did attempt tasks, but unable to complete them correctly. Pt. ambulated back to room and transferred to chair. Chair alarm in place. All needs met. Education OT Patient Education: Correct positioning, Modified ADL techniques, Progress toward Goal/Update tx plan, Purpose of tx/functional activities, Reviewed precautions, Rehab process, Transfer techniques Teaching Recipient: Patient Teaching Methods: Demonstration, Discussion Response to Teaching: Unable to Return Demonstration OT Short Term Goals Short Term Goals Time Frame: Sep 15, 2018 Grooming(FIM): 5 Transfers (B,C,W/C) (FIM): 4 Toilet/Commode Transfer(FIM): 4 1=Demonstrate adherence to instructed precautions during ADL tasks. 2=Patient will verbalize/demonstrate understanding of assistive devices/ modifications for ADL. 3=Patient will improve strength/tolerance for activity to enable patient to perform ADL's. OT Toy Maker Goals Fdc Goals Time Frame: Sep 29, 2018 Eating (FIM): 6 Eating (QC): 6 Groomin Oral Hygiene (QC): 5 Bathing(FIM): 5 Shower/Bathe Self (QC): 5 Upper Body Dressing(FIM): 6 Upper Body Dressing (QC): 6 Lower Body Dressing(FIM): 6 Lower Body Dressing (QC): 6 On/Off Footwear (QC): 6 Toileting(FIM): 6 Toileting Hygiene (QC): 6 Toilet/Commode Transfer(FIM): 6 Toilet/Commode Transfer (QC): 6 Shower Transfer(FIM): 5 Additional Goals: 1-Demonstrate ADL Tasks, 2-Verbalize Understanding, 3- ImproveStrength/Navya 1=Demonstrate adherence to instructed precautions during ADL tasks. 2=Patient will verbalize/demonstrate understanding of assistive devices/ modifications for ADL. 3=Patient will improve strength/tolerance for activity to enable patient to perform ADL's. OT Education/Plan Problem List/Assessment Assessment: Decreased Activ Tolerance, Decreased Safety Aware, Decreased UE Strength, Dependent Transfers, Impaired Cognition, Impaired I ADL's, Impaired Self-Care Skills Pt would benefit from skilled OT to increase his independence in basic self care Discharge Recommendations Plan/Recommendations: Continue POC Therapy D/C Recommendations: 24 hr Supervision, Home w/ Family Support Treatment Plan/Plan of Care Treatment,Training & Education: Yes Patient would benefit from OT for education, treatment and training to promote independence in ADL's, mobility, safety and/or upper extremity function for ADL' s. Plan of Care: ADL Retraining, Caregiver Training, Functional Mobility, Group Exercise/Act as Ind (education, exercise, socialization, funct activities, communication), UE Funct Exercise/Act, UE Neuromus Re-Ed/Coord, Visual/ Perceptual Retrain Treatment Duration: Sep 29, 2018 Frequency: At least 5 of 7 days/Wk (IRF) Estimated Hrs Per Day: 1.5 hours per day (1.25 to 1.5) Agreement: Yes Rehab Potential: Fair Time/GCodes Start Time: 13:30 Stop Time: 14:00 Total Time Billed (hr/min): 30 Billed Treatment Time 1, FA x 30minutes MILAD SIMON OT Sep 20, 2018 15:55
[2018-09-20] MEDS: TAMSULOSIN 0.4 MG (FLOMAX) CAP PO SCH (16:17)
[2018-09-20 17:16] VITALS: BP 152/70
--- NOTE | 2018-09-20 18:39 | PM & R (SOAP) Progress Note ---
Subjective This was a face to face visit with the patient. Date Seen by Provider: Sep 20, 2018 Time Seen by Provider: 18:10 Subjective/Events-last exam Patient was seen in his room this evening Discussed case with morning caregiver has recommended change to wound care for thigh see orders DR Damon concerned re risk for recurrent seizure with Urecholine and thus it has been D/cd DR Villanueva informed and has ordered bladder scan to check for retention.Patient SBA to min assist for transfers Date Identified: Sep 20, 2018 Time Identified: 18:15 Medication Intervention: Urecholind d/cd Review of Systems Genitourinary: Incontinence Neurological: Weakness Objective Physician Exam Last Set of Vital Signs Vital Signs Date Time Temp Pulse Resp B/P (MAP) Pulse Ox O2 Delivery O2 Flow Rate FiO2 09/20/18 17:16 97.2 63 20 152/70 (97) 96 Room Air Capillary Refill : I&O Intake and Output 09/20/18 00:00 Intake Total 850 ml Balance 850 ml Intake Oral 850 ml Bladder Scan Volume Amount 331 ml 124 ml 162 ml # Voids 8 # Bowel Movements 1 General: Alert, Cooperative, No Acute Distress HEENT: Atraumatic, PERRLA, EOMI, Mucous Memb Moist/[place] Neck: Supple, No JVD Lungs: Clear to Auscultation Heart: Regular Rate, Normal S1, Normal S2 Abdomen: Normal Bowel Sounds, Soft, No Tenderness Extremities: No Cyanosis, No Edema Skin: No Rashes Neuro: Normal Speech, Other (Impaired strength Left leg Impaired balance Mild dementia with memory loss) Results Lab Data Laboratory Tests 09/17/18 20:31: Glucometer 449*H 09/18/18 06:04: Glucometer 211H 09/18/18 11:04: Glucometer 206H 09/18/18 15:09: Glucometer 256H 09/18/18 20:11: Glucometer 209H 09/19/18 04:50: Glucometer 151H 09/19/18 11:01: Glucometer 236H 09/19/18 15:36: Glucometer 325H 09/19/18 19:55: Glucometer 330H 09/20/18 04:39: Glucometer 209H 09/20/18 11:19: Glucometer 247H 09/20/18 14:56: White Blood Count 8.4, Red Blood Count 4.59, Hemoglobin 14.8, Hematocrit 42, Mean Corpuscular Volume 92, Mean Corpuscular Hemoglobin 32, Mean Corpuscular Hemoglobin Concent 35, Red Cell Distribution Width 12.7, Platelet Count 241, Mean Platelet Volume 10.6H, Neutrophils (%) (Auto) 64, Lymphocytes (%) (Auto) 23 , Monocytes (%) (Auto) 11, Eosinophils (%) (Auto) 3, Basophils (%) (Auto) 0, Neutrophils # (Auto) 5.4, Lymphocytes # (Auto) 1.9, Monocytes # (Auto) 0.9, Eosinophils # (Auto) 0.2, Basophils # (Auto) 0.0, Sodium Level 137, Potassium Level 4.6, Chloride Level 104, Carbon Dioxide Level 23, Anion Gap 10, Blood Urea Nitrogen 28H, Creatinine 1.42H, Estimat Glomerular Filtration Rate 49, BUN/ Creatinine Ratio 20, Glucose Level 322H, Calcium Level 9.9, Corrected Calcium 10.6H, Total Bilirubin 0.3, Aspartate Amino Transf (AST/SGOT) 62H, Alanine Aminotransferase (ALT/SGPT) 14, Alkaline Phosphatase 129, Total Protein 6.9, Albumin 3.1L 09/20/18 15:45: Glucometer 335H Assessment/Plan Assessment and Plan [place] Sinemet adjusted Dementia multifactorial DM poorly controlled with SS Insulin regimen now added CAD Constipation urinary retention improved with med monitor for further urinary retention PAF on Eliquis HX of nonsustained V tach noted 2015 maintained on Amiodarone SSS s/p pacemaker remote hx of seizure Pressure sore rt thigh topical treatment adjusted Plan Continue PT/OT/Wound care Monitor for urinary retention with bladder scanner now that Urecholine has been d/cd F/U with DR damon et al prn Team Conference 09-22-18 Co-Morbidities that are continuing to impact the rehab process: (include details ) YOVANY DANIELS MD Sep 20, 2018 18:38
[2018-09-20] MEDS: inSUlin DETERMIR 1 UNIT/0.01 ML (LEVEMIR) CHARGE PER UNIT SQ SCH (20:35)
[2018-09-20] MEDS: meTOprolol SUCCINATE 100 MG (TOPROL XL) TAB PO SCH (20:35)
[2018-09-20] MEDS: DAKIN'S 1/4 STRENGTH (0.125%) 473 ML BTL TOP SCH (20:35)
[2018-09-20] MEDS: PHENYTOIN 100 MG (DILANTIN) CAP PO SCH (20:35)
[2018-09-21 05:34] VITALS: BP 146/66
[2018-09-21] MEDS: inSUlin ASPART (NovoLOG) 1 UNIT/0.01 ML (CHARGE PER UNIT) SC SCH ×4 (05:40→21:18)
[2018-09-21] MEDS: OMEGA 3 (FISH OIL) 1000 MG CAP PO SCH ×2 (06:52→16:21)
[2018-09-21] MEDS: glipiZIDE 5 MG (GLUCOTROL) TAB PO SCH (06:52)
[2018-09-21] MEDS: MULTIVIT W/MINERALS TAB (THERAGRAN M) PO SCH (06:53)
--- NOTE | 2018-09-21 07:21 | Progress Note-Urology ---
Progress Note-Urology Progress Notes/Assess & Plan Progress/Assessment & Plan URECHOLINE D/C'ED BY DR KENT YESTERDAY. OBSERVE OFF IT Final Diagnosis URINE RETENTION AND INCONTINENCE EVERTON GARCIA MD Sep 21, 2018 07:21
--- NOTE | 2018-09-21 08:12 | Progress Note (SOAP) ---
Subjective Time Seen by a Provider: 08:10 Subjective/Events-last exam Urecholine on hold. Patient voiding Objective Exam Vital Signs Date Time Temp Pulse Resp B/P (MAP) Pulse Ox O2 Delivery O2 Flow Rate FiO2 09/21/18 05:34 98.5 57 18 146/66 (92) 96 Room Air 09/20/18 20:10 Room Air 09/20/18 17:16 97.2 63 20 152/70 (97) 96 Room Air 09/20/18 09:09 Room Air 09/20/18 09:01 60 163/69 (100) I & O 09/21/18 07:00 Intake Total 675 ml Balance 675 ml Capillary Refill : General Appearance: No Apparent Distress, WD/WN HEENT: Normal ENT Inspection Respiratory: Lungs Clear, No Accessory Muscle Use, No Respiratory Distress Cardiovascular: Regular Rate, Rhythm Gastrointestinal: non tender, soft Results Lab Laboratory Tests 09/20/18 11:19: Glucometer 247H 09/20/18 14:56: White Blood Count 8.4, Red Blood Count 4.59, Hemoglobin 14.8, Hematocrit 42, Mean Corpuscular Volume 92, Mean Corpuscular Hemoglobin 32, Mean Corpuscular Hemoglobin Concent 35, Red Cell Distribution Width 12.7, Platelet Count 241, Mean Platelet Volume 10.6H, Neutrophils (%) (Auto) 64, Lymphocytes (%) (Auto) 23 , Monocytes (%) (Auto) 11, Eosinophils (%) (Auto) 3, Basophils (%) (Auto) 0, Neutrophils # (Auto) 5.4, Lymphocytes # (Auto) 1.9, Monocytes # (Auto) 0.9, Eosinophils # (Auto) 0.2, Basophils # (Auto) 0.0, Sodium Level 137, Potassium Level 4.6, Chloride Level 104, Carbon Dioxide Level 23, Anion Gap 10, Blood Urea Nitrogen 28H, Creatinine 1.42H, Estimat Glomerular Filtration Rate 49, BUN/ Creatinine Ratio 20, Glucose Level 322H, Calcium Level 9.9, Corrected Calcium 10.6H, Total Bilirubin 0.3, Aspartate Amino Transf (AST/SGOT) 62H, Alanine Aminotransferase (ALT/SGPT) 14, Alkaline Phosphatase 129, Total Protein 6.9, Albumin 3.1L 09/20/18 15:45: Glucometer 335H 09/20/18 20:40: Glucometer 295H 09/21/18 05:23: Glucometer 118H Assessment/Plan Assessment/Plan Assess & Plan/Chief Complaint Debility. Parkinson disease. Dementia. Mental status change improving. Diabetes. Increased the dose of Sinemet. . 09/10/18. Debility better. Parkinson disease. Dementia. Mental status change improved. Diabetes sugars still little bit high. Cogwheel motion of right arm much less. . 09/13/18. Debility better. Parkinson disease. Dementia. Diabetes patient hypoglycemic this morning. Patient still has Patel catheter in. . 09/14/18. Debility. Patel catheter removed. Straight catheter once. Dementia. Diabetes. Patient improving. . 09/15/18. Debility. Dementia. Diabetes. Patient walking better. Patient standing up straight. Patient still has cogwheel motion of the right upper arm. Patient talking better. Patient improving. . 09/16/18. Debility better. Dementia improving. Diabetes. Patient still having Trouble with his urination. Parkinson disease. . 09/17/18. Debility better. Patient has breakdown in the lower back. Diabetes. Dementia. Parkinson disease. Patient resting comfortably today. . Debility. Diabetes. Dementia. Parkinson disease. Patient eating good. . 09/21/18. Debility. Diabetes. Dementia. Parkinson disease. Patient resting comfortably Clinical Quality Measures DVT/VTE Risk/Contraindication: Risk Factor Score Per Nursin RFS Level Per Nursing on Admit: 4+=Very High DENIZ KENT DO Sep 21, 2018 08:12
--- NOTE | 2018-09-21 08:14 | Cardiology Progress Note ---
Subjective Date Seen by Provider: Sep 21, 2018 Time Seen by Provider: 08:13 Subjective/Events-last exam Patient is in bed, no new complaint Review of Systems General: No Chills, No Night Sweats; Fatigue; No Malaise, No Appetite, No Other HEENT: No Head Aches, No Visual Changes, No Eye Pain, No Ear Pain, No Dysphasia , No Sinus Congestion, No Post Nasal Drip, No Sore Throat, No Other Pulmonary: No Dyspnea, No Cough, No Pleuritic Chest Pain, No Other Cardiovascular: No: Chest Pain, Palpitations, Orthopnea, Paroxysmal Noc. Dyspnea, Edema, Lt Headedness, Other Objective-Cardiology Exam Last Set of Vital Signs Vital Signs 09/21/18 05:34 Temp 98.5 Pulse 57 Resp 18 B/P (MAP) 146/66 (92) Pulse Ox 96 O2 Delivery Room Air Capillary Refill : I&O Intake and Output 09/21/18 00:00 Intake Total 790 ml Balance 790 ml Intake Oral 790 ml Bladder Scan Volume Amount 177 ml # Voids 10 # Bowel Movements 3 General: Alert, Cooperative, No Acute Distress HEENT: Atraumatic, PERRLA, EOMI, Mucous Memb Moist/[place] Neck: Supple, No JVD Lungs: Clear to Auscultation Heart: Regular Rate, Normal S1, Normal S2 Abdomen: Normal Bowel Sounds, Soft, No Tenderness Extremities: No Cyanosis, No Edema Skin: No Rashes Neuro: Normal Speech, Other (Impaired strength Left leg Impaired balance Mild dementia with memory loss) Results Lab Laboratory Tests 09/20/18 14:56 A/P-Cardiology Admission Diagnosis Generalized weakness PAF CAD HTN Assessment/Plan Generalized weakness, improving, workup has been negative. Continue his physical therapy Change in mental status, had previous hospitalization and evaluation in the ER for change in mental status in the past, workup at that time was negative. Appears back to baseline. Continue with physical therapy Parkinson, started on Sinemet, followed by primary care team Sick sinus syndrome, history of episodes of bradycardia with complete heart block, frequent PVCs, ventricular bigeminy and ventricular couplets, short PAT' s. Status post permanent pacemaker implantation April 2015, using a [place] device Lenin GONZALEZ, good sensing and capture. Continue to monitor History of nonsustained ventricular tachycardia, noted on interrogation on July 02, 2016, has been maintained on amiodarone 200 mg daily. Continue to monitor Paroxysmal atrial fibrillation, maintained on Eliquis. Continue to monitor [id number] score of 6, high risk, yearly risk of stroke without OAC is 9.8%. Maintained on Eliquis, continue to monitor Coronary artery disease, multiple interventions in the past, most recent cardiac catheterization done March 14, 2015 revealed extensive coronary artery disease, heavily calcified system, with 40 percent distal left main coronary artery stenosis. 3 stents in LAD proximally with 50-60 percent in-stent restenosis. Distal LAD had 95 percent stenosis followed by 80 percent stenosis long segment, very small artery not amendable to intervention. Total occlusion of the first obtuse marginal branch filled by collaterals. Patent stent in the proximal mid second OM branch with moderate disease in the distal proper circumflex artery. Patent stent in the RCA with 50 percent proximal right coronary artery stenosis and 50-60 distal right coronary artery stenosis. Asymptomatic, continue to monitor Stress test in July 2016 showed fixed defect involving the whole inferior wall and inferoapical segment with dilated left ventricle, inferior wall hypokinesia, Ejection fraction 54 percent. Echocardiogram showed ejection fraction 60 percent, dilated left atrium, mild to moderate mitral regurgitation and pulmonary artery pressure of 35 mmHg. continue to monitor Hypertension, mildly elevated blood pressure, I am hesitant to increase his blood pressure medications due to to the fact that he might have orthostatic hypotension or syncope. He is currently asymptomatic. Continue on current medication monitor Hyperlipidemia, I will continue to hold statin due to generalized weakness and monitor his response History of CVA in 2010, mild residual right sided weakness, episodes of confusion occurred over the last year where patient became confused and drove over once to [place] and once to [place]. It was felt that it was a global ischemic attack with confusion, workup at that time was negative. He was seen by Dr. Jiménez and started on Dilantin, the dose was increased by Dr. Damon, followed and managed by primary care physician Diabetes mellitus, managed by primary care physician. Carotid stenosis, Seen and followed by Dr Simmons, continue to monitor Ex-Tobaccoism, patient smokes pipe, he stopped smoking in October, encouraged to continue with smoking cessation Peripheral neuropathy, maintained on gabapentin. Continue on current medication , continue to monitor Sleep apnea, severe on sleep study in October 2015, does not use his machine. Clinical Quality Measures DVT/VTE Risk/Contraindication: Risk Factor Score Per Nursin RFS Level Per Nursing on Admit: 4+=Very High SEBASTIÁN VALLE MD Sep 21, 2018 08:14
--- NOTE | 2018-09-21 09:08 | Occupational Ther Daily Note ---
OT Current Status-Daily Note Subjective No pain reported. Appearance Pt. is in bed. Pt. declines showering at first, but is encouraged to do so. Noted that pt. had spilled his coffee on himself and all over his bed. Mental Status/Objective Patient Orientation: Confused Therapy Code Descriptions/Definitions Functional [place] Measure: 0=Not Assessed/NA 4=Minimal Assistance 1=Total Assistance 5=Supervision or Setup 2=Maximal Assistance 6=Modified [place] 3=Moderate Assistance 7=Complete [place] Pt. seems more confused this date. More cues needed. Does not sequence or process well. Needs step by step cues and sometimes tactile guidance to start a task. Will perseverate on same task once he starts it. Will notify nursing. ADL-Treatment Therapy Code Descriptions/Definitions Functional [place] Measure: 0=Not Assessed/NA 4=Minimal Assistance 1=Total Assistance 5=Supervision or Setup 2=Maximal Assistance 6=Modified [place] 3=Moderate Assistance 7=Complete [place] Therapy Quality Codes: 6 Independent with activity with or without an assistive device 5 Patient requires set up or clean up by helper. Patient completes activity by themselves 4 Supervision or touching assist (CGA). [place] provide cues , steadying assist 3 The helper provides less than half the effort to complete the activity 2 The helper provides more than half the effort to complete the activity 1 Dependent. The helper does all the effort to complete an activity 7 Patient refused to complete or attempt activity 9 The patient did not perform the activity before the current illness or injury 88 Not attempted due to Medical conditions or safety concerns Grooming (FIM): 3 (Pt. is given all items to brush his teeth while seated at sink level. Pt. does brush, but it is minimal. Dribbles paste into his garcia and does not notice it. Puts brush away without rinsing it or mouth. [place] half of hair with comb and then puts comb down. OT finishes this for him.) Oral Hygiene (QC): 3 Bathing (FIM): 3 (Pt. is given cues to shower each part. OT washes hair. Pt. given washcloth and told to wash chest. Pt. washes hair again with cloth. Pt. is able to wash chest, but requires cues for everything else. OT washes legs and feet becuase pt. can't process how to do it. Pt. does stand with max cues to initiate it, and then is able to wash rear and front roderick area.) Shower/Bathe Self (QC): 3 Lower Body Dressing (FIM): 3 (Pt. is able to doff brief and socks with max cues. Pt. given brief to don and pt. is unable to initiate it. Will look at it and hold it. OT encourages pt. to do this. OT finially does for him. Pt. able to don slipper socks with max cues, and CGA to bend over. No clean pants noted, so OT washing pts.) Lower Body Dressing (QC): 3 Toileting (FIM): 4 (Max cues to pull down brief. Pt. sits and then requires cues to initiate standing up, and cleansing self. Pt. sits down, but does not initiate getting up when he is done. CGA at times in sitting.) Toileting Hygiene (QC): 4 Transfers (B, C, W/C) (FIM): 4 Toilet/Commode Transfer (FIM): 4 Toilet Transfer (QC): 4 Shower Transfer(FIM): 4 Education OT Patient Education: Correct positioning, Modified ADL techniques, Progress toward Goal/Update tx plan, Purpose of tx/functional activities, Reviewed precautions, Rehab process, Transfer techniques Teaching Recipient: Patient Teaching Methods: Demonstration, Discussion Response to Teaching: Verbalize Understanding, Return Demonstration OT Short Term Goals Short Term Goals Time Frame: Sep 15, 2018 Grooming(FIM): 5 Transfers (B,C,W/C) (FIM): 4 Toilet/Commode Transfer(FIM): 4 1=Demonstrate adherence to instructed precautions during ADL tasks. 2=Patient will verbalize/demonstrate understanding of assistive devices/ modifications for ADL. 3=Patient will improve strength/tolerance for activity to enable patient to perform ADL's. OT Mcfp Goals Water Pollution Control Inspector Goals Time Frame: Sep 29, 2018 Eating (FIM): 6 Eating (QC): 6 Groomin Oral Hygiene (QC): 5 Bathing(FIM): 5 Shower/Bathe Self (QC): 5 Upper Body Dressing(FIM): 6 Upper Body Dressing (QC): 6 Lower Body Dressing(FIM): 6 Lower Body Dressing (QC): 6 On/Off Footwear (QC): 6 Toileting(FIM): 6 Toileting Hygiene (QC): 6 Toilet/Commode Transfer(FIM): 6 Toilet/Commode Transfer (QC): 6 Shower Transfer(FIM): 5 Additional Goals: 1-Demonstrate ADL Tasks, 2-Verbalize Understanding, 3- ImproveStrength/Navya 1=Demonstrate adherence to instructed precautions during ADL tasks. 2=Patient will verbalize/demonstrate understanding of assistive devices/ modifications for ADL. 3=Patient will improve strength/tolerance for activity to enable patient to perform ADL's. OT Education/Plan Problem List/Assessment Assessment: Decreased Activ Tolerance, Decreased Safety Aware, Decreased UE Strength, Dependent Transfers, Impaired Bed Mobility, Impaired Cognition, Impaired Coordination, Impaired I ADL's, Impaired Self-Care Skills Pt would benefit from skilled OT to increase his independence in basic self care Discharge Recommendations Plan/Recommendations: Continue POC Therapy D/C Recommendations: 24 hr Supervision Treatment Plan/Plan of Care Treatment,Training & Education: Yes Patient would benefit from OT for education, treatment and training to promote independence in ADL's, mobility, safety and/or upper extremity function for ADL' s. Plan of Care: ADL Retraining, Caregiver Training, Functional Mobility, Group Exercise/Act as Ind (education, exercise, socialization, funct activities, communication), UE Funct Exercise/Act, UE Neuromus Re-Ed/Coord, Visual/ Perceptual Retrain Treatment Duration: Sep 29, 2018 Frequency: At least 5 of 7 days/Wk (IRF) Estimated Hrs Per Day: 1.5 hours per day (1.25 to 1.5) Agreement: Yes Rehab Potential: Fair Time/GCodes Start Time: 08:15 Stop Time: 09:00 Total Time Billed (hr/min): 45 Billed Treatment Time 1, ADL x 3 MILAD SIMON OT Sep 21, 2018 09:08
[2018-09-21] MEDS: AMIODARONE 200 MG (CORDARONE) TAB PO SCH (09:42)
[2018-09-21] MEDS: SINEMET 25/100 (CARBIDOPA/LEVODOPA) TAB PO SCH ×3 (09:42→21:20)
[2018-09-21] MEDS: DOCUSATE SODIUM 100 MG (COLACE) CAP PO SCH ×2 (09:42→20:40)
[2018-09-21] MEDS: amLODIPine 10 MG (NORVASC) TAB PO SCH (09:42)
[2018-09-21] MEDS: GABAPENTIN 300 MG (NEURONTIN) CAP PO SCH ×2 (09:42→21:20)
[2018-09-21] MEDS: APIXABAN 5 MG (ELIQUIS) TABLET PO SCH ×2 (09:42→21:20)
[2018-09-21] MEDS: QUINAPRIL 40 MG PO SCH (09:46)
[2018-09-21] MEDS: DAKIN'S 1/4 STRENGTH (0.125%) 473 ML BTL TOP SCH ×2 (09:46→21:00)
--- NOTE | 2018-09-21 10:02 | Physical Therapy Daily Note ---
PT Daily Note-Current Subjective Pt sitting in recliner upon arrival. Pt agrees to PT. Pt continues to needs VC during tx. Pain Location: No Pain Reported Mental Status Patient Orientation: Person, Confused Transfers Therapy Code Descriptions/Definitions Functional [place] Measure: 0=Not Assessed/NA 4=Minimal Assistance 1=Total Assistance 5=Supervision or Setup 2=Maximal Assistance 6=Modified [place] 3=Moderate Assistance 7=Complete [place] Therapy Quality Codes: 6 Independent with activity with or without an assistive device 5 Patient requires set up or clean up by helper. Patient completes activity by themselves 4 Supervision or touching assist ([facility]). [place] provide cues , steadying assist 3 The helper provides less than half the effort to complete the activity 2 The helper provides more than half the effort to complete the activity 1 Dependent. The helper does all the effort to complete an activity 7 Patient refused to complete or attempt activity 9 The patient did not perform the activity before the current illness or injury 88 Not attempted due to Medical conditions or safety concerns Scootin Sit to/from Stand: 4 (Due to VC for hand placement & sequencing) Sit to Stand (QC): 4 Weight Bearing Right Lower Extremity: Right Full Weight Bearing Left Lower Extremity: Left Full Weight Bearing Gait Training Does the Patient Walk?: Yes Distance (FIM): 3=150 ft Distance: 150' Walk 10 feet (QC): 5 Walk 50 ft with 2 Turns(QC): 5 Walk 150 ft (QC): 5 Gait Level of Assist: 5 Gait Persons Needed: 1 Gait Assistive Device: FWW Pt needs VC for directions & walks with slight stooped posture. Wheelchair Training Does the Pt Use a Wheelchair?: No Exercises Seated Therapy Exercises: Ankle pumps, Long arc quads, Hip flexion, Kicking activity Seated Reps: 15 (With reminders to continue Ex) NuStep Minutes: 10 NuStep Workload: 3 Treatments Pt transfers from recliner to standing using FWW at [facility] & needing VC for hand placement & sequencing. Pt ambulates in hallway using FWW at [facility]. Pt uses NuStep for 10m at 3 followed by Seated Ex. Pt returns to room to use restroom. Pt resting in recliner with all needs met at end of tx. Assessment Current Status: Fair Progress Pt has difficulty following directions and needs continual VC to complete tasks as asked. PT Short Term Goals Short Term Goals Time Frame: Sep 15, 2018 Transfers (B,C,W/C) (FIM): 4 Gait (FIM): 1 Gait Distance Comment: 20' Gait Level of Assist: 3 Gait Assistive Device: Walker Cristian Wheelchair Distance: 20' PT Skilled Nursing Goals Skilled Nursing Goals PT Skilled Nursing Goals Time Frame: Sep 29, 2018 Transfers (B,C,W/C) (FIM): 4 Sit to Lying (QC): 4 Lying-Sitting on Side/Bed(QC): 4 Sit to Stand (QC): 4 Rollin Roll Left to Right (QC): 4 Chair/Jdg-vi-Ncjfl Xfer(QC): 4 Car Transfer (QC): 4 Does the Patient Walk: Yes Gait (FIM): 2 Gait distance (FIM): 1=up to 49 ft Distance: 50' Walk 10 feet (QC): 3 Walk 10ft-Uneven Surface(QC): 3 Walk 50ft with 2 Turns (QC): 3 Walk 150 ft (QC): 0 Gait Level of Assist: 4 Gait Assistive Device: Walker Cristian Does the Pt use WC or Scooter?: Yes Wheelchair (FIM): 2 Wheelchair distance (FIM): 1=up to 49 ft Distance: 50 Wheelchair Level of Assist: 4 Wheel 50 feet with 2 turns (QC: 4 Stairs (FIM): 1 # of Steps: 1 1 Step (curb) (QC): 3 4 Steps (QC): 0 12 Steps (QC): 0 Stairs Level Of Assist: 4 Picking up an Object (QC): 0 PT Plan Problem List Problem List: Activity Tolerance, Functional Strength, Safety, Balance, Gait, Transfer Treatment/Plan Treatment Plan: Continue Plan of Care Treatment Plan: Bed Mobility, Concurrent Therapy, Education, Functional Activity Navya, Functional Strength, Group Therapy, Gait, Safety, Therapeutic Exercise, Transfers Treatment Duration: Sep 29, 2018 Frequency: At least 5 of 7 days/Wk (IRF) Estimated Hrs Per Day: 1.5 hours per day Patient and/or Family Agrees t: Yes Safety Risks/Education Patient Education: Gait Training, Transfer Techniques, Correct Positioning, Safety Issues Teaching Recipient: Patient Teaching Methods: Discussion Response to Teaching: Reinforcement Needed Time/GCodes Time In: 900 Time Out: 1000 Total Billed Treatment Time: 60 Total Billed Treatment 1, GT (20m), FA (10m) & EX x2 (30m) G Codes Necessary: DENY Chaves ZYGLO INSPECTOR Sep 21, 2018 10:01
--- NOTE | 2018-09-21 11:44 | Speech Therapy Daily Note ---
Speech Daily Progress Note Subjective Date Seen by Provider: Sep 21, 2018 Time Seen by Provider: 00:30 Patient was alert and able to participate well today. Objective Patient completed a memory task of function related to common objects with moderate verbal repetitions and/or cues. Assessment Assessment Current Status: Good Progress Treatment Plan Continue Plan of Care Communication Comprehension: 2 Expression: 2 Social Cognition Social Interaction: 3 Problem Solvin Memory: 3 Speech Short Term Goals Short Term Goals Short Term Goals 1) Patient will complete simple memory tasks at 75% with minimal cues. 2) Patient will complete simple problem solving tasks at 75% with minimal cues. 3) Patient will complete simple 1 step directions with 75% with minimal cues. Speech Lifts And Cranes Inspector Goals Lifts And Cranes Inspector Goals Patient will improve cognitive-communication tasks for improved safety and independence. Speech-Plan Patient/Family Goals Patient/Family Goals: Patient plans to return home with his post rehab. Treatment Plan Speech Therapy Treatment Plan: Continue Plan of Care Patient is progressing well with skilled services. Treatment Duration: Sep 08, 2018 Frequency: 5 times per week Estimated Hrs Per Day: .5 hour per day Rehab Potential: Fair Barriers to Learning: Patient has dementia. Pt/Family Agrees to Plan: Yes Safety Risks/Education Teaching Recipient: Patient Teaching Methods: Discussion Response to Teaching: Verbalize Understanding Education Topics Provided: Safety within his room. Time Speech Therapy Time In: 11:00 Speech Therapy Time Out: 11:30 Total Billed Time: 30 Billed Treatment Time 1[address] Sep 21, 2018 11:44
--- NOTE | 2018-09-21 13:50 | Occupational Ther Daily Note ---
OT Current Status-Daily Note Subjective No pain reported. Appearance Pt. is attempting to stand on his own when OT comes into room. Pt's chair alarm is going off. Mental Status/Objective Patient Orientation: Confused Therapy Code Descriptions/Definitions Functional [place] Measure: 0=Not Assessed/NA 4=Minimal Assistance 1=Total Assistance 5=Supervision or Setup 2=Maximal Assistance 6=Modified [place] 3=Moderate Assistance 7=Complete [place] Pt. has poor safety awareness. Encouraged multiple times to not get up on his own. ADL-Treatment Therapy Code Descriptions/Definitions Functional [place] Measure: 0=Not Assessed/NA 4=Minimal Assistance 1=Total Assistance 5=Supervision or Setup 2=Maximal Assistance 6=Modified [place] 3=Moderate Assistance 7=Complete [place] Therapy Quality Codes: 6 Independent with activity with or without an assistive device 5 Patient requires set up or clean up by helper. Patient completes activity by themselves 4 Supervision or touching assist (CGA). [place] provide cues , steadying assist 3 The helper provides less than half the effort to complete the activity 2 The helper provides more than half the effort to complete the activity 1 Dependent. The helper does all the effort to complete an activity 7 Patient refused to complete or attempt activity 9 The patient did not perform the activity before the current illness or injury 88 Not attempted due to Medical conditions or safety concerns Upper Body (FIM): 4 (Pt. requires min assistance to don shirt.) Upper Body Dressing (QC): 4 Lower Body Dressing (FIM): 3 (Pt. requires mod assistance overall to don shorts.) Lower Body Dressing (QC): 3 Transfers (B, C, W/C) (FIM): 4 (CGA at times for safety during ambulation with walker.) Other Treatment Pt's clothing were washed this a.m. due to pt. not having clean clothes. Pt. up in room unsafely when OT came in. Encouraged pt. to sit back down. Pt. agrees to get dressed. After dressing, OT and pt. ambulate with walker to therapy gym. Tolerated 10 minutes on armbike at mod resistance for increased UE strength. After this, OT and pt. ambulate around therapy dining area. Pt. requires cues for where to go, including tactile cues to keep walker from running into items. PT assisted pt. with treatment as soon as OT was finished. All needs met. Education OT Patient Education: Correct positioning, Exercise program, Modified ADL techniques, Progress toward Goal/Update tx plan, Purpose of tx/functional activities, Reviewed precautions, Rehab process, Transfer techniques Teaching Recipient: Patient Teaching Methods: Demonstration, Discussion Response to Teaching: Verbalize Understanding, Return Demonstration OT Short Term Goals Short Term Goals Time Frame: Sep 15, 2018 Grooming(FIM): 5 Transfers (B,C,W/C) (FIM): 4 Toilet/Commode Transfer(FIM): 4 1=Demonstrate adherence to instructed precautions during ADL tasks. 2=Patient will verbalize/demonstrate understanding of assistive devices/ modifications for ADL. 3=Patient will improve strength/tolerance for activity to enable patient to perform ADL's. OT Correction Goals Correction Goals Time Frame: Sep 29, 2018 Eating (FIM): 6 Eating (QC): 6 Groomin Oral Hygiene (QC): 5 Bathing(FIM): 5 Shower/Bathe Self (QC): 5 Upper Body Dressing(FIM): 6 Upper Body Dressing (QC): 6 Lower Body Dressing(FIM): 6 Lower Body Dressing (QC): 6 On/Off Footwear (QC): 6 Toileting(FIM): 6 Toileting Hygiene (QC): 6 Toilet/Commode Transfer(FIM): 6 Toilet/Commode Transfer (QC): 6 Shower Transfer(FIM): 5 Additional Goals: 1-Demonstrate ADL Tasks, 2-Verbalize Understanding, 3- ImproveStrength/Navya 1=Demonstrate adherence to instructed precautions during ADL tasks. 2=Patient will verbalize/demonstrate understanding of assistive devices/ modifications for ADL. 3=Patient will improve strength/tolerance for activity to enable patient to perform ADL's. OT Education/Plan Problem List/Assessment Assessment: Decreased Activ Tolerance, Decreased Safety Aware, Decreased UE Strength, Dependent Transfers, Impaired Cognition, Impaired Coordination, Impaired I ADL's, Impaired Self-Care Skills Pt would benefit from skilled OT to increase his independence in basic self care Discharge Recommendations Plan/Recommendations: Continue POC Therapy D/C Recommendations: 24 hr Supervision Treatment Plan/Plan of Care Treatment,Training & Education: Yes Patient would benefit from OT for education, treatment and training to promote independence in ADL's, mobility, safety and/or upper extremity function for ADL' s. Plan of Care: ADL Retraining, Caregiver Training, Functional Mobility, Group Exercise/Act as Ind (education, exercise, socialization, funct activities, communication), UE Funct Exercise/Act, UE Neuromus Re-Ed/Coord, Visual/ Perceptual Retrain Treatment Duration: Sep 29, 2018 Frequency: At least 5 of 7 days/Wk (IRF) Estimated Hrs Per Day: 1.5 hours per day (1.25 to 1.5) Agreement: Yes Rehab Potential: Fair Time/GCodes Start Time: 13:00 Stop Time: 13:30 Total Time Billed (hr/min): 30 Billed Treatment Time 1, ADL x 15minutes, Ex x 15minutes MILAD SIMON OT Sep 21, 2018 13:50
--- NOTE | 2018-09-21 14:17 | Physical Therapy Daily Note ---
PT Daily Note-Current Subjective Pt sitting in chair in Therapy Commons with OT upon arrival. Pt agrees to PT for ambulation. Mental Status Patient Orientation: Person, Confused Transfers Therapy Code Descriptions/Definitions Functional [place] Measure: 0=Not Assessed/NA 4=Minimal Assistance 1=Total Assistance 5=Supervision or Setup 2=Maximal Assistance 6=Modified [place] 3=Moderate Assistance 7=Complete [place] Therapy Quality Codes: 6 Independent with activity with or without an assistive device 5 Patient requires set up or clean up by helper. Patient completes activity by themselves 4 Supervision or touching assist ([facility]). [place] provide cues , steadying assist 3 The helper provides less than half the effort to complete the activity 2 The helper provides more than half the effort to complete the activity 1 Dependent. The helper does all the effort to complete an activity 7 Patient refused to complete or attempt activity 9 The patient did not perform the activity before the current illness or injury 88 Not attempted due to Medical conditions or safety concerns Scootin Sit to/from Stand: 4 Sit to Stand (QC): 4 Weight Bearing Right Lower Extremity: Right Full Weight Bearing Left Lower Extremity: Left Full Weight Bearing Gait Training Does the Patient Walk?: Yes Distance (FIM): 3=150 ft Distance: 150' Walk 10 feet (QC): 5 Walk 50 ft with 2 Turns(QC): 5 Walk 150 ft (QC): 5 Gait Level of Assist: 5 Gait Persons Needed: 1 Gait Assistive Device: FWW Pt walks with slow yolie and needs VC for hand placement and sequencing during transfers. Wheelchair Training Does the Pt Use a Wheelchair?: No Treatments Pt transfers from chair to standing at [facility]. Pt walks with slow yolie and needs VC for hand placement and sequencing during transfers. Pt takes No Bake Cookie from counter in Therapy Commons & eats it, Nurse notified as this may affect Blood Sugar. Pt returns to room to rest in recliner at end of tx with all needs met. Assessment Current Status: Fair Progress Pt fatigues easily and isn't socially aware for safety. PT Short Term Goals Short Term Goals Time Frame: Sep 15, 2018 Transfers (B,C,W/C) (FIM): 4 Gait (FIM): 1 Gait Distance Comment: 20' Gait Level of Assist: 3 Gait Assistive Device: Walker Cristian Wheelchair Distance: 20' PT Padding Gluer Goals Padding Gluer Goals PT Correction Goals Time Frame: Sep 29, 2018 Transfers (B,C,W/C) (FIM): 4 Sit to Lying (QC): 4 Lying-Sitting on Side/Bed(QC): 4 Sit to Stand (QC): 4 Rollin Roll Left to Right (QC): 4 Chair/Hcr-cv-Nuklw Xfer(QC): 4 Car Transfer (QC): 4 Does the Patient Walk: Yes Gait (FIM): 2 Gait distance (FIM): 1=up to 49 ft Distance: 50' Walk 10 feet (QC): 3 Walk 10ft-Uneven Surface(QC): 3 Walk 50ft with 2 Turns (QC): 3 Walk 150 ft (QC): 0 Gait Level of Assist: 4 Gait Assistive Device: Walker Cristian Does the Pt use WC or Scooter?: Yes Wheelchair (FIM): 2 Wheelchair distance (FIM): 1=up to 49 ft Distance: 50 Wheelchair Level of Assist: 4 Wheel 50 feet with 2 turns (QC: 4 Stairs (FIM): 1 # of Steps: 1 1 Step (curb) (QC): 3 4 Steps (QC): 0 12 Steps (QC): 0 Stairs Level Of Assist: 4 Picking up an Object (QC): 0 PT Plan Problem List Problem List: Activity Tolerance, Functional Strength, Safety, Balance, Gait, Transfer Treatment/Plan Treatment Plan: Continue Plan of Care Treatment Plan: Bed Mobility, Concurrent Therapy, Education, Functional Activity Navya, Functional Strength, Group Therapy, Gait, Safety, Therapeutic Exercise, Transfers Treatment Duration: Sep 29, 2018 Frequency: At least 5 of 7 days/Wk (IRF) Estimated Hrs Per Day: 1.5 hours per day Patient and/or Family Agrees t: Yes Safety Risks/Education Patient Education: Gait Training, Transfer Techniques, Correct Positioning, Safety Issues Teaching Recipient: Patient Teaching Methods: Discussion Response to Teaching: Verbalize Understanding Time/GCodes Time In: 1330 Time Out: 1345 Total Billed Treatment Time: 15 Total Billed Treatment 1, GT (15m) G Codes Necessary: DENY Chaves PTA Sep 21, 2018 14:17
[2018-09-21] MEDS: TAMSULOSIN 0.4 MG (FLOMAX) CAP PO SCH (16:21)
[2018-09-21 17:17] VITALS: BP 162/74
--- NOTE | 2018-09-21 20:11 | PM & R (SOAP) Progress Note ---
Subjective This was a face to face visit with the patient. Date Seen by Provider: Sep 21, 2018 Time Seen by Provider: 07:55 Subjective/Events-last exam Patient was seen in his room this AM Patient Min assist for transfers Objective Physician Exam Last Set of Vital Signs Vital Signs Date Time Temp Pulse Resp B/P (MAP) Pulse Ox O2 Delivery O2 Flow Rate FiO2 09/21/18 17:17 98.0 62 16 162/74 (103) 97 Room Air Capillary Refill : I&O Intake and Output 09/21/18 00:00 Intake Total 790 ml Balance 790 ml Intake Oral 790 ml Bladder Scan Volume Amount 177 ml # Voids 10 # Bowel Movements 3 General: Alert, Cooperative, No Acute Distress HEENT: Atraumatic, PERRLA, EOMI, Mucous Memb Moist/[place] Neck: Supple, No JVD Lungs: Clear to Auscultation Heart: Regular Rate, Normal S1, Normal S2 Abdomen: Normal Bowel Sounds, Soft, No Tenderness Extremities: No Cyanosis, No Edema Skin: No Rashes Neuro: Normal Speech, Other (Impaired strength Left leg Impaired balance Mild dementia with memory loss) Results Lab Data Laboratory Tests 09/18/18 20:11: Glucometer 209H 09/19/18 04:50: Glucometer 151H 09/19/18 11:01: Glucometer 236H 09/19/18 15:36: Glucometer 325H 09/19/18 19:55: Glucometer 330H 09/20/18 04:39: Glucometer 209H 09/20/18 11:19: Glucometer 247H 09/20/18 14:56: White Blood Count 8.4, Red Blood Count 4.59, Hemoglobin 14.8, Hematocrit 42, Mean Corpuscular Volume 92, Mean Corpuscular Hemoglobin 32, Mean Corpuscular Hemoglobin Concent 35, Red Cell Distribution Width 12.7, Platelet Count 241, Mean Platelet Volume 10.6H, Neutrophils (%) (Auto) 64, Lymphocytes (%) (Auto) 23 , Monocytes (%) (Auto) 11, Eosinophils (%) (Auto) 3, Basophils (%) (Auto) 0, Neutrophils # (Auto) 5.4, Lymphocytes # (Auto) 1.9, Monocytes # (Auto) 0.9, Eosinophils # (Auto) 0.2, Basophils # (Auto) 0.0, Sodium Level 137, Potassium Level 4.6, Chloride Level 104, Carbon Dioxide Level 23, Anion Gap 10, Blood Urea Nitrogen 28H, Creatinine 1.42H, Estimat Glomerular Filtration Rate 49, BUN/ Creatinine Ratio 20, Glucose Level 322H, Calcium Level 9.9, Corrected Calcium 10.6H, Total Bilirubin 0.3, Aspartate Amino Transf (AST/SGOT) 62H, Alanine Aminotransferase (ALT/SGPT) 14, Alkaline Phosphatase 129, Total Protein 6.9, Albumin 3.1L 09/20/18 15:45: Glucometer 335H 09/20/18 20:40: Glucometer 295H 09/21/18 05:23: Glucometer 118H 09/21/18 10:56: Glucometer 237H 09/21/18 16:05: Glucometer 270H Assessment/Plan Assessment and Plan Nasra Isabel sinemet dose adjusted dementia multifactorial DM meds being adjusted CAD' Constipation Urinary retention ST Cath PRN PAF on Eliquis HX of nonsustained V Tach noted 2015 maintained on Amiodarone SSS s/p pacemaker Plan Continue PT/OT Team Conference tomorrow Discuss possible discharge options F/U with PCP and Prn Co-Morbidities that are continuing to impact the rehab process: (include details ) YOVANY DANIELS MD Sep 21, 2018 20:11
[2018-09-21] MEDS: meTOprolol SUCCINATE 100 MG (TOPROL XL) TAB PO SCH (21:19)
[2018-09-21] MEDS: inSUlin DETERMIR 1 UNIT/0.01 ML (LEVEMIR) CHARGE PER UNIT SQ SCH (21:19)
[2018-09-21] MEDS: PHENYTOIN 100 MG (DILANTIN) CAP PO SCH (21:20)
[2018-09-22 03:24] VITALS: BP 123/64
[2018-09-22] MEDS: inSUlin ASPART (NovoLOG) 1 UNIT/0.01 ML (CHARGE PER UNIT) SC SCH ×4 (06:33→21:40)
[2018-09-22] MEDS: glipiZIDE 5 MG (GLUCOTROL) TAB PO SCH (06:33)
[2018-09-22] MEDS: MULTIVIT W/MINERALS TAB (THERAGRAN M) PO SCH (06:33)
[2018-09-22] MEDS: OMEGA 3 (FISH OIL) 1000 MG CAP PO SCH ×2 (06:33→16:53)
--- NOTE | 2018-09-22 07:34 | Progress Note (SOAP) ---
Subjective Time Seen by a Provider: 07:32 Subjective/Events-last exam patient Improving. patient Walking by Himself at Times. Patient for Eating with Flomax. patient wetting Himself. Objective Exam Vital Signs Date Time Temp Pulse Resp B/P (MAP) Pulse Ox O2 Delivery O2 Flow Rate FiO2 09/22/18 03:24 98.0 60 18 123/64 (83) 96 Room Air 09/21/18 20:10 Room Air 09/21/18 17:17 98.0 62 16 162/74 (103) 97 Room Air 09/21/18 09:00 Room Air I & O 09/22/18 07:00 Intake Total 1110 ml Balance 1110 ml Capillary Refill : General Appearance: No Apparent Distress, WD/WN HEENT: Normal ENT Inspection Neck: Normal Inspection Respiratory: No Accessory Muscle Use, No Respiratory Distress Cardiovascular: Regular Rate, Rhythm, No Murmur Gastrointestinal: non tender, soft Results Lab Laboratory Tests 09/21/18 10:56: Glucometer 237H 09/21/18 16:05: Glucometer 270H 09/21/18 20:53: Glucometer 392H 09/22/18 05:46: Glucometer 85 Assessment/Plan Assessment/Plan Assess & Plan/Chief Complaint Debility. Parkinson disease. Dementia. Mental status change improving. Diabetes. Increased the dose of Sinemet. . 09/10/18. Debility better. Parkinson disease. Dementia. Mental status change improved. Diabetes sugars still little bit high. Cogwheel motion of right arm much less. . 09/13/18. Debility better. Parkinson disease. Dementia. Diabetes patient hypoglycemic this morning. Patient still has Patel catheter in. . 09/14/18. Debility. Patel catheter removed. Straight catheter once. Dementia. Diabetes. Patient improving. . 09/15/18. Debility. Dementia. Diabetes. Patient walking better. Patient standing up straight. Patient still has cogwheel motion of the right upper arm. Patient talking better. Patient improving. . 09/16/18. Debility better. Dementia improving. Diabetes. Patient still having Trouble with his urination. Parkinson disease. . 09/17/18. Debility better. Patient has breakdown in the lower back. Diabetes. Dementia. Parkinson disease. Patient resting comfortably today. . Debility. Diabetes. Dementia. Parkinson disease. Patient eating good. . 09/21/18. Debility. Diabetes. Dementia. Parkinson disease. Patient resting comfortably. . 09/22/18. Debility improving. Diabetes. Dementia. Parkinson disease improving. Patient getting up better. patient still has breakdown Clinical Quality Measures DVT/VTE Risk/Contraindication: Risk Factor Score Per Nursin RFS Level Per Nursing on Admit: 4+=Very High DENIZ KENT DO Sep 22, 2018 07:34
[2018-09-22] MEDS: APIXABAN 5 MG (ELIQUIS) TABLET PO SCH ×2 (08:20→21:40)
[2018-09-22] MEDS: GABAPENTIN 300 MG (NEURONTIN) CAP PO SCH ×2 (08:21→21:41)
[2018-09-22] MEDS: amLODIPine 10 MG (NORVASC) TAB PO SCH (08:21)
[2018-09-22] MEDS: AMIODARONE 200 MG (CORDARONE) TAB PO SCH (08:21)
[2018-09-22] MEDS: SINEMET 25/100 (CARBIDOPA/LEVODOPA) TAB PO SCH ×3 (08:21→21:41)
[2018-09-22] MEDS: DOCUSATE SODIUM 100 MG (COLACE) CAP PO SCH ×2 (08:21→21:40)
[2018-09-22] MEDS: QUINAPRIL 40 MG PO SCH (08:24)
[2018-09-22] MEDS: DAKIN'S 1/4 STRENGTH (0.125%) 473 ML BTL TOP SCH ×2 (08:24→21:41)
--- NOTE | 2018-09-22 08:26 | Cardiology Progress Note ---
Subjective Date Seen by Provider: Sep 22, 2018 Time Seen by Provider: 08:24 Subjective/Events-last exam Patient is sitting up in bed, no new complaints. Denies any chest pain. Review of Systems General: No Night Sweats, No Fatigue, No Malaise HEENT: No Visual Changes, No Dysphasia, No Sore Throat Pulmonary: No Dyspnea, No Cough Cardiovascular: No: Chest Pain, Palpitations, Paroxysmal Noc. Dyspnea, Edema Gastrointestinal: No: Nausea, Vomiting, Abdominal Pain Genitourinary: No Dysuria, No Frequency Musculoskeletal: No: neck pain, back pain Neurological: No: Weakness, Numbness, Change in speech, Confusion Objective-Cardiology Exam Last Set of Vital Signs Vital Signs 09/23/18 04:15 Temp 98.2 Pulse 62 Resp 18 B/P (MAP) 167/72 (103) Pulse Ox 97 O2 Delivery Room Air Capillary Refill : I&O Intake and Output 09/23/18 00:00 Intake Total 870 ml Balance 870 ml Intake Oral 870 ml Bladder Scan Volume Amount 236 ml 267 ml # Voids 8 # Bowel Movements 1 General: Alert, Cooperative, No Acute Distress HEENT: Atraumatic, PERRLA, EOMI, Mucous Memb Moist/[place] Neck: Supple, No JVD Lungs: Clear to Auscultation Heart: Regular Rate, Normal S1, Normal S2 Abdomen: Normal Bowel Sounds, Soft, No Tenderness Extremities: No Cyanosis, No Edema Skin: No Rashes Neuro: Normal Speech, Other (Impaired strength Left leg Impaired balance Mild dementia with memory loss) A/P-Cardiology Admission Diagnosis Generalized weakness PAF CAD HTN Assessment/Plan Generalized weakness, improving, workup has been negative. Continue his physical therapy Change in mental status, had previous hospitalization and evaluation in the ER for change in mental status in the past, workup at that time was negative. Appears back to baseline. Continue with physical therapy Parkinson, started on Sinemet, followed by primary care team Sick sinus syndrome, history of episodes of bradycardia with complete heart block, frequent PVCs, ventricular bigeminy and ventricular couplets, short PAT' s. Status post permanent pacemaker implantation April 2015, using a [employer] device Advisa DR GONZALEZ, good sensing and capture. Continue to monitor History of nonsustained ventricular tachycardia, noted on interrogation on July 02, 2016, has been maintained on amiodarone 200 mg daily. Continue to monitor Paroxysmal atrial fibrillation, maintained on Eliquis. Continue to monitor [id number] score of 6, high risk, yearly risk of stroke without OAC is 9.8%. Maintained on Eliquis, continue to monitor Coronary artery disease, multiple interventions in the past, most recent cardiac catheterization done March 14, 2015 revealed extensive coronary artery disease, heavily calcified system, with 40 percent distal left main coronary artery stenosis. 3 stents in LAD proximally with 50-60 percent in-stent restenosis. Distal LAD had 95 percent stenosis followed by 80 percent stenosis long segment, very small artery not amendable to intervention. Total occlusion of the first obtuse marginal branch filled by collaterals. Patent stent in the proximal mid second OM branch with moderate disease in the distal proper circumflex artery. Patent stent in the RCA with 50 percent proximal right coronary artery stenosis and 50-60 distal right coronary artery stenosis. Asymptomatic, continue to monitor Stress test in July 2016 showed fixed defect involving the whole inferior wall and inferoapical segment with dilated left ventricle, inferior wall hypokinesia, Ejection fraction 54 percent. Echocardiogram showed ejection fraction 60 percent, dilated left atrium, mild to moderate mitral regurgitation and pulmonary artery pressure of 35 mmHg. continue to monitor Hypertension, mildly elevated blood pressure, I am hesitant to increase his blood pressure medications due to to the fact that he might have orthostatic hypotension or syncope. He is currently asymptomatic. Continue on current medication monitor Hyperlipidemia, statin discontinued secondary to increased weakness. Continue to monitor lipids as outpatient. History of CVA in 2010, mild residual right sided weakness, episodes of confusion occurred over the last year where patient became confused and drove over once to [place] and once to [place]. It was felt that it was a global ischemic attack with confusion, workup at that time was negative. He was seen by Dr. Jiménez and started on Dilantin, the dose was increased by Dr. Damon, followed and managed by primary care physician Diabetes mellitus, managed by primary care physician. Carotid stenosis, Seen and followed by Dr Simmons, continue to monitor Ex-Tobaccoism, patient smokes pipe, he stopped smoking in October, encouraged to continue with smoking cessation Peripheral neuropathy, maintained on gabapentin. Continue on current medication , continue to monitor Sleep apnea, severe on sleep study in October 2015, does not use his machine. Clinical Quality Measures DVT/VTE Risk/Contraindication: Risk Factor Score Per Nursin RFS Level Per Nursing on Admit: 4+=Very High JOSELUIS CLINTON Sep 22, 2018 08:26
--- NOTE | 2018-09-22 09:43 | Progress Note-Urology ---
Progress Note-Urology Progress Notes/Assess & Plan Progress/Assessment & Plan VOIDING BUT HAS LARGER PVR. WE WILL CHECK TODAY Final Diagnosis URINE RETENTION EVERTON GARCIA MD Sep 22, 2018 09:43
--- NOTE | 2018-09-22 10:09 | Cardiology Progress Note ---
Subjective Date Seen by Provider: Sep 22, 2018 Time Seen by Provider: 10:09 Subjective/Events-last exam Patient is sitting in a chair, no new complaint Review of Systems General: No Chills, No Night Sweats, No Fatigue, No Malaise, No Appetite, No Other HEENT: No Head Aches, No Visual Changes, No Eye Pain, No Ear Pain, No Dysphasia , No Sinus Congestion, No Post Nasal Drip, No Sore Throat, No Other Pulmonary: No Dyspnea, No Cough, No Pleuritic Chest Pain, No Other Cardiovascular: No: Chest Pain, Palpitations, Orthopnea, Paroxysmal Noc. Dyspnea, Edema, Lt Headedness, Other Objective-Cardiology Exam Last Set of Vital Signs Vital Signs 09/22/18 09/22/18 03:24 09:00 Temp 98.0 Pulse 60 Resp 18 B/P (MAP) 123/64 (83) Pulse Ox 96 O2 Delivery Room Air Capillary Refill : I&O Intake and Output 09/22/18 00:00 Intake Total 1085 ml Balance 1085 ml Intake Oral 1085 ml Bladder Scan Volume Amount 289 ml # Voids 8 # Urine Diapers 2 # Bowel Movements 1 General: Alert, Cooperative, No Acute Distress HEENT: Atraumatic, PERRLA, EOMI, Mucous Memb Moist/[place] Neck: Supple, No JVD Lungs: Clear to Auscultation Heart: Regular Rate, Normal S1, Normal S2 Abdomen: Normal Bowel Sounds, Soft, No Tenderness Extremities: No Cyanosis, No Edema Skin: No Rashes Neuro: Normal Speech, Other (Impaired strength Left leg Impaired balance Mild dementia with memory loss) Results Lab Laboratory Tests Test 09/21/18 10:56 09/21/18 16:05 09/21/18 20:53 09/22/18 05:46 Range/Units Glucometer 237 H 270 H 392 H 85 70-110 MG/DL A/P-Cardiology Admission Diagnosis Generalized weakness PAF CAD HTN Assessment/Plan Generalized weakness, improving, workup has been negative. Continue his physical therapy Change in mental status, had previous hospitalization and evaluation in the ER for change in mental status in the past, workup at that time was negative. Appears back to baseline. Continue with physical therapy Parkinson, started on Sinemet, followed by primary care team Sick sinus syndrome, history of episodes of bradycardia with complete heart block, frequent PVCs, ventricular bigeminy and ventricular couplets, short PAT' s. Status post permanent pacemaker implantation April 2015, using a [employer] device Advisa DR GONZALEZ, good sensing and capture. Continue to monitor History of nonsustained ventricular tachycardia, noted on interrogation on July 02, 2016, has been maintained on amiodarone 200 mg daily. Continue to monitor Paroxysmal atrial fibrillation, maintained on Eliquis. Continue to monitor [id number] score of 6, high risk, yearly risk of stroke without OAC is 9.8%. Maintained on Eliquis, continue to monitor Coronary artery disease, multiple interventions in the past, most recent cardiac catheterization done March 14, 2015 revealed extensive coronary artery disease, heavily calcified system, with 40 percent distal left main coronary artery stenosis. 3 stents in LAD proximally with 50-60 percent in-stent restenosis. Distal LAD had 95 percent stenosis followed by 80 percent stenosis long segment, very small artery not amendable to intervention. Total occlusion of the first obtuse marginal branch filled by collaterals. Patent stent in the proximal mid second OM branch with moderate disease in the distal proper circumflex artery. Patent stent in the RCA with 50 percent proximal right coronary artery stenosis and 50-60 distal right coronary artery stenosis. Asymptomatic, continue to monitor Stress test in July 2016 showed fixed defect involving the whole inferior wall and inferoapical segment with dilated left ventricle, inferior wall hypokinesia, Ejection fraction 54 percent. Echocardiogram showed ejection fraction 60 percent, dilated left atrium, mild to moderate mitral regurgitation and pulmonary artery pressure of 35 mmHg. continue to monitor Hypertension, mildly elevated blood pressure, I am hesitant to increase his blood pressure medications due to to the fact that he might have orthostatic hypotension or syncope. He is currently asymptomatic. Continue on current medication monitor Hyperlipidemia, statin discontinued secondary to increased weakness. Continue to monitor lipids as outpatient. History of CVA in 2010, mild residual right sided weakness, episodes of confusion occurred over the last year where patient became confused and drove over once to [place] and once to [place]. It was felt that it was a global ischemic attack with confusion, workup at that time was negative. He was seen by Dr. Jiménez and started on Dilantin, the dose was increased by Dr. Damon, followed and managed by primary care physician Diabetes mellitus, managed by primary care physician. Carotid stenosis, Seen and followed by Dr Simmons, continue to monitor Ex-Tobaccoism, patient smokes pipe, he stopped smoking in October, encouraged to continue with smoking cessation Peripheral neuropathy, maintained on gabapentin. Continue on current medication , continue to monitor Sleep apnea, severe on sleep study in October 2015, does not use his machine. Clinical Quality Measures DVT/VTE Risk/Contraindication: Risk Factor Score Per Nursin RFS Level Per Nursing on Admit: 4+=Very High SEBASTIÁN VALLE MD Sep 22, 2018 10:09
--- NOTE | 2018-09-22 10:26 | Occupational Ther Daily Note ---
OT Current Status-Daily Note Subjective Pt sitting in chair, agrees to treatment. Mental Status/Objective Therapy Code Descriptions/Definitions Functional Welling Measure: 0=Not Assessed/NA 4=Minimal Assistance 1=Total Assistance 5=Supervision or Setup 2=Maximal Assistance 6=Modified Welling 3=Moderate Assistance 7=Complete Welling ADL-Treatment Pt supine to sit with minimal assistance and cues to initiate. Pt would like to shower this morning. Sit to stand with minimal assistance. Gait to restroom with FWW. Transfer [facility] [place] toilet with minimal assistance and cues for safety. Pt doffed wet brief with minimal assistance. Transfer to walk in shower with min assist using grab bars for balance and safety. Seated shower completed with much increased time. Pt perseverates on folding and stacking washcloths in shower, requires cues to attend to task. Pt washed face multiple times and has difficulty moving on from this task. Pt able to wash bilateral UE, chest, and abdomen with max verbal cues for sequencing and task completion. Pt washed roderick area and bilateral upper legs. Requires assist to wash feet. Stood with minimal assistance and washed buttocks with increased time. Dries with towel with moderate assistance overall. Pt able to thread bilateral UE into sleeves and car repairer pullman head, but requires assist to pull down in back. Assist to thread bilateral LE into Depends and pants. Stood with minimal assistance to complete pant hike. Pt donned right sock, but unable to sequence donning left sock, required assist to complete task. Grooming completed seated at sink. Pt combed half of hair, but then requires assist for remainder. Pt given items to brush teeth. Pt requires max cues to place toothpaste on toothbrush. Pt then minimally brushes teeth and rinses mouth with increased time. Pt transferred to recliner chair with minimal assistance using FWW. Pt sitting in chair with needs met and chair alarm in place after session. Therapy Code Descriptions/Definitions Functional Welling Measure: 0=Not Assessed/NA 4=Minimal Assistance 1=Total Assistance 5=Supervision or Setup 2=Maximal Assistance 6=Modified Welling 3=Moderate Assistance 7=Complete Welling Therapy Quality Codes: 6 Independent with activity with or without an assistive device 5 Patient requires set up or clean up by helper. Patient completes activity by themselves 4 Supervision or touching assist (CGA). [place] provide cues , steadying assist 3 The helper provides less than half the effort to complete the activity 2 The helper provides more than half the effort to complete the activity 1 Dependent. The helper does all the effort to complete an activity 7 Patient refused to complete or attempt activity 9 The patient did not perform the activity before the current illness or injury 88 Not attempted due to Medical conditions or safety concerns Grooming (FIM): 3 Oral Hygiene (QC): 3 Bathing (FIM): 3 Shower/Bathe Self (QC): 3 Upper Body (FIM): 4 Upper Body Dressing (QC): 3 Lower Body Dressing (FIM): 3 Lower Body Dressing (QC): 3 On/Off Footwear (QC): 3 Toilet/Commode Transfer (FIM): 4 Toilet Transfer (QC): 3 Shower Transfer(FIM): 4 OT Short Term Goals Short Term Goals Time Frame: Sep 15, 2018 Grooming(FIM): 5 Transfers (B,C,W/C) (FIM): 4 Toilet/Commode Transfer(FIM): 4 1=Demonstrate adherence to instructed precautions during ADL tasks. 2=Patient will verbalize/demonstrate understanding of assistive devices/ modifications for ADL. 3=Patient will improve strength/tolerance for activity to enable patient to perform ADL's. OT Senior Chemical Engineer Goals Usp Goals Time Frame: Sep 29, 2018 Eating (FIM): 6 Eating (QC): 6 Groomin Oral Hygiene (QC): 5 Bathing(FIM): 5 Shower/Bathe Self (QC): 5 Upper Body Dressing(FIM): 6 Upper Body Dressing (QC): 6 Lower Body Dressing(FIM): 6 Lower Body Dressing (QC): 6 On/Off Footwear (QC): 6 Toileting(FIM): 6 Toileting Hygiene (QC): 6 Toilet/Commode Transfer(FIM): 6 Toilet/Commode Transfer (QC): 6 Shower Transfer(FIM): 5 Additional Goals: 1-Demonstrate ADL Tasks, 2-Verbalize Understanding, 3- ImproveStrength/[place] 1=Demonstrate adherence to instructed precautions during ADL tasks. 2=Patient will verbalize/demonstrate understanding of assistive devices/ modifications for ADL. 3=Patient will improve strength/tolerance for activity to enable patient to perform ADL's. OT Education/Plan Problem List/Assessment Pt would benefit from skilled OT to increase his independence in basic self care Discharge Recommendations Plan/Recommendations: Continue POC Treatment Plan/Plan of Care Patient would benefit from OT for education, treatment and training to promote independence in ADL's, mobility, safety and/or upper extremity function for ADL' s. Plan of Care: ADL Retraining, Caregiver Training, Functional Mobility, Group Exercise/Act as Ind (education, exercise, socialization, funct activities, communication), UE Funct Exercise/Act, UE Neuromus Re-Ed/Coord, Visual/ Perceptual Retrain Treatment Duration: Sep 29, 2018 Frequency: At least 5 of 7 days/Wk (IRF) Estimated Hrs Per Day: 1.5 hours per day (1.25 to 1.5) Agreement: Yes Rehab Potential: Fair Time/GCodes Start Time: 08:00 Stop Time: 09:15 Total Time Billed (hr/min): 75 Billed Treatment Time 1 visit, ADLx5(75minutes) PARIS JAMIL OT Sep 22, 2018 10:26
--- NOTE | 2018-09-22 11:57 | Speech Therapy Daily Note ---
Speech Daily Progress Note Subjective Date Seen by Provider: Sep 22, 2018 Time Seen by Provider: 00:30 Patient was sleepy this am, requiring frequent verbal and/or tactile cues to participate. Objective Patient completed problem solving tasks with moderate verbal cuing. Treatment Plan Continue Plan of Care Communication Comprehension: 4 Expression: 4 Social Cognition Social Interaction: 4 Problem Solvin Memory: 3 Speech Short Term Goals Short Term Goals Short Term Goals 1) Patient will complete simple memory tasks at 75% with minimal cues. 2) Patient will complete simple problem solving tasks at 75% with minimal cues. 3) Patient will complete simple 1 step directions with 75% with minimal cues. Speech Primer Press Operator Goals Primer Press Operator Goals Patient will improve cognitive-communication tasks for improved safety and independence. Speech-Plan Patient/Family Goals Patient/Family Goals: Patient plans to return home with his post rehab. Treatment Plan Speech Therapy Treatment Plan: Continue Plan of Care Patient demo decreased alert level today. Treatment Duration: Sep 08, 2018 Frequency: 5 times per week Estimated Hrs Per Day: .5 hour per day Rehab Potential: Fair Barriers to Learning: Memory, difficulty with following directions. Pt/Family Agrees to Plan: Yes Safety Risks/Education Teaching Recipient: Patient Teaching Methods: Discussion Response to Teaching: Verbalize Understanding Education Topics Provided: Safety. Time Speech Therapy Time In: 10:30 Speech Therapy Time Out: 11:00 Total Billed Time: 30 Billed Treatment Time [address] Sep 22, 2018 11:57
--- NOTE | 2018-09-22 13:26 | Physical Therapy Daily Note ---
PT Daily Note-Current Subjective Pt slummed over in recliner upon arrival. Pt agrees to PT. Mental Status Patient Orientation: Person, Confused Transfers Therapy Code Descriptions/Definitions Functional [place] Measure: 0=Not Assessed/NA 4=Minimal Assistance 1=Total Assistance 5=Supervision or Setup 2=Maximal Assistance 6=Modified [place] 3=Moderate Assistance 7=Complete [place] Therapy Quality Codes: 6 Independent with activity with or without an assistive device 5 Patient requires set up or clean up by helper. Patient completes activity by themselves 4 Supervision or touching assist (CGA). [place] provide cues , steadying assist 3 The helper provides less than half the effort to complete the activity 2 The helper provides more than half the effort to complete the activity 1 Dependent. The helper does all the effort to complete an activity 7 Patient refused to complete or attempt activity 9 The patient did not perform the activity before the current illness or injury 88 Not attempted due to Medical conditions or safety concerns Transfers (B, C, W/C) (FIM): 5 Scootin Rollin Roll Left to Right (QC): 5 Supine to/from Sit: 5 Sit to/from Stand: 5 Sit to Lying (QC): 5 Sit to Stand (QC): 5 Chair/Kfi-ip-Dzulj Xfer(QC): 5 Bed to/from Chair: 5 Car Transfer (QC): 5 Weight Bearing Right Lower Extremity: Right Full Weight Bearing Left Lower Extremity: Left Full Weight Bearing Gait Training Does the Patient Walk?: Yes Gait (FIM): 5 Distance (FIM): 3=150 ft Distance: 150' Walk 10 feet (QC): 5 Walk 50 ft with 2 Turns(QC): 5 Walk 150 ft (QC): 5 Walking 10ft/uneven surface-QC: 5 Gait Level of Assist: 5 Gait Persons Needed: 1 Gait Assistive Device: FWW Pt needs VC for safety and direction as well as sequencing. Wheelchair Training Does the Pt Use a Wheelchair?: No Stair Training Stair Training: Handrails/: 2 handrails Stairs (FIM): 2 #of Steps: 4 1 Step (curb) (QC): 4 4 Steps (QC): 4 Stairs: Pattern: Step to Level of Assist: 4 Balance Picking up an Object (QC): 88 Special Test Comments This is not tested due to pt's lack of balance when bending and following directions. Exercises NuStep Minutes: 15 NuStep Workload: 3 Treatments Pt completes 1 set of 4 steps, walking across varying surface as well as in hallway, transfers & bed mobility. Pt also completes car transfer. Pt uses NuStep for 15m at WL 3 and uses restroom for toileting. MOTOR VEHICLE LECTURER assists as CGA for pericare. Pt is resting in recliner eating lunch with son at end of tx. Pt has all needs met. Assessment Current Status: Fair Progress Pt demonstrates cognition deficits and has difficulty following directions at times. Social Awareness is also an issue. PT Short Term Goals Short Term Goals Time Frame: Sep 15, 2018 Transfers (B,C,W/C) (FIM): 4 Gait (FIM): 1 Gait Distance Comment: 20' Gait Level of Assist: 3 Gait Assistive Device: Walker Cristian Wheelchair Distance: 20' PT Oncology Account Specialist Goals Nursing Home Goals PT Oncology Account Specialist Goals Time Frame: Sep 29, 2018 Transfers (B,C,W/C) (FIM): 4 Sit to Lying (QC): 4 Lying-Sitting on Side/Bed(QC): 4 Sit to Stand (QC): 4 Rollin Roll Left to Right (QC): 4 Chair/Dse-wt-Hucxj Xfer(QC): 4 Car Transfer (QC): 4 Does the Patient Walk: Yes Gait (FIM): 2 Gait distance (FIM): 1=up to 49 ft Distance: 50' Walk 10 feet (QC): 3 Walk 10ft-Uneven Surface(QC): 3 Walk 50ft with 2 Turns (QC): 3 Walk 150 ft (QC): 0 Gait Level of Assist: 4 Gait Assistive Device: Walker Cristian Does the Pt use WC or Scooter?: Yes Wheelchair (FIM): 2 Wheelchair distance (FIM): 1=up to 49 ft Distance: 50 Wheelchair Level of Assist: 4 Wheel 50 feet with 2 turns (QC: 4 Stairs (FIM): 1 # of Steps: 1 1 Step (curb) (QC): 3 4 Steps (QC): 0 12 Steps (QC): 0 Stairs Level Of Assist: 4 Picking up an Object (QC): 0 PT Plan Problem List Problem List: Activity Tolerance, Functional Strength, Safety, Balance, Gait, Transfer Treatment/Plan Treatment Plan: Continue Plan of Care Treatment Plan: Bed Mobility, Concurrent Therapy, Education, Functional Activity Navya, Functional Strength, Group Therapy, Gait, Safety, Therapeutic Exercise, Transfers Treatment Duration: Sep 29, 2018 Frequency: At least 5 of 7 days/Wk (IRF) Estimated Hrs Per Day: 1.5 hours per day Patient and/or Family Agrees t: Yes Safety Risks/Education Patient Education: Gait Training, Transfer Techniques, Correct Positioning, Safety Issues Teaching Recipient: Patient Teaching Methods: Discussion Response to Teaching: Reinforcement Needed Time/GCodes Time In: 1100 Time Out: 1215 Total Billed Treatment Time: 75 Total Billed Treatment 1, GT x2 (30m), FA x2 (30m) & EX (15m) G Codes Necessary: DENY Chaves MOTOR VEHICLE LECTURER Sep 22, 2018 13:25
[2018-09-22] MEDS: TAMSULOSIN 0.4 MG (FLOMAX) CAP PO SCH (16:53)
[2018-09-22 17:59] VITALS: BP 158/74
--- NOTE | 2018-09-22 20:37 | PM & R (SOAP) Progress Note ---
Subjective This was a face to face visit with the patient. Date Seen by Provider: Sep 22, 2018 Time Seen by Provider: 08:00 Subjective/Events-last exam Patient was seen in his room this AM Patient SBA for transfers Review of Systems Neurological: Weakness, Confusion Objective Physician Exam Last Set of Vital Signs Vital Signs Date Time Temp Pulse Resp B/P (MAP) Pulse Ox O2 Delivery O2 Flow Rate FiO2 09/22/18 17:59 98.0 62 20 158/74 (102) 96 Room Air Capillary Refill : I&O Intake and Output 09/22/18 00:00 Intake Total 1085 ml Balance 1085 ml Intake Oral 1085 ml Bladder Scan Volume Amount 289 ml # Voids 8 # Urine Diapers 2 # Bowel Movements 1 General: Alert, Cooperative, No Acute Distress HEENT: Atraumatic, PERRLA, EOMI, Mucous Memb Moist/[place] Neck: Supple, No JVD Lungs: Clear to Auscultation Heart: Regular Rate, Normal S1, Normal S2 Abdomen: Normal Bowel Sounds, Soft, No Tenderness Extremities: No Cyanosis, No Edema Skin: No Rashes Neuro: Normal Speech, Other (Impaired strength Left leg Impaired balance Mild dementia with memory loss) Results Lab Data Laboratory Tests 09/20/18 04:39: Glucometer 209H 09/20/18 11:19: Glucometer 247H 09/20/18 14:56: White Blood Count 8.4, Red Blood Count 4.59, Hemoglobin 14.8, Hematocrit 42, Mean Corpuscular Volume 92, Mean Corpuscular Hemoglobin 32, Mean Corpuscular Hemoglobin Concent 35, Red Cell Distribution Width 12.7, Platelet Count 241, Mean Platelet Volume 10.6H, Neutrophils (%) (Auto) 64, Lymphocytes (%) (Auto) 23 , Monocytes (%) (Auto) 11, Eosinophils (%) (Auto) 3, Basophils (%) (Auto) 0, Neutrophils # (Auto) 5.4, Lymphocytes # (Auto) 1.9, Monocytes # (Auto) 0.9, Eosinophils # (Auto) 0.2, Basophils # (Auto) 0.0, Sodium Level 137, Potassium Level 4.6, Chloride Level 104, Carbon Dioxide Level 23, Anion Gap 10, Blood Urea Nitrogen 28H, Creatinine 1.42H, Estimat Glomerular Filtration Rate 49, BUN/ Creatinine Ratio 20, Glucose Level 322H, Calcium Level 9.9, Corrected Calcium 10.6H, Total Bilirubin 0.3, Aspartate Amino Transf (AST/SGOT) 62H, Alanine Aminotransferase (ALT/SGPT) 14, Alkaline Phosphatase 129, Total Protein 6.9, Albumin 3.1L 09/20/18 15:45: Glucometer 335H 09/20/18 20:40: Glucometer 295H 09/21/18 05:23: Glucometer 118H 09/21/18 10:56: Glucometer 237H 09/21/18 16:05: Glucometer 270H 09/21/18 20:53: Glucometer 392H 09/22/18 05:46: Glucometer 85 09/22/18 12:04: Glucometer 267H 09/22/18 16:32: Glucometer 235H Assessment/Plan Assessment and Plan [place] sinemet dose adjusted dementia multifactorial DM meds adjusted CAD Constipation Urinary retention improved but with incontinence PAF on Eliquis Hx of nonsustained V tach noted 2015 maintained on Amiodarone SSS s/p pacemaker Plan continue PT/.OT Team Conference held earlier today See report for full functional update and POC Discharge set tentatively for 09-27-18 to home with spouse Co-Morbidities that are continuing to impact the rehab process: (include details ) YOVANY DANIELS MD Sep 22, 2018 20:37
[2018-09-22] MEDS: PHENYTOIN 100 MG (DILANTIN) CAP PO SCH (21:40)
[2018-09-22] MEDS: inSUlin DETERMIR 1 UNIT/0.01 ML (LEVEMIR) CHARGE PER UNIT SQ SCH (21:40)
[2018-09-22] MEDS: meTOprolol SUCCINATE 100 MG (TOPROL XL) TAB PO SCH (21:41)
[2018-09-23 04:15] VITALS: BP 167/72
[2018-09-23] MEDS: OMEGA 3 (FISH OIL) 1000 MG CAP PO SCH ×2 (06:26→18:33)
[2018-09-23] MEDS: MULTIVIT W/MINERALS TAB (THERAGRAN M) PO SCH (06:26)
[2018-09-23] MEDS: glipiZIDE 5 MG (GLUCOTROL) TAB PO SCH (06:26)
[2018-09-23] MEDS: inSUlin ASPART (NovoLOG) 1 UNIT/0.01 ML (CHARGE PER UNIT) SC SCH ×4 (06:38→20:34)
--- NOTE | 2018-09-23 07:43 | Progress Note (SOAP) ---
Subjective Time Seen by a Provider: 07:38 Subjective/Events-last exam Patient getting around better. Patient needs to be told what to do. Patient physically improving Objective Exam Vital Signs Date Time Temp Pulse Resp B/P (MAP) Pulse Ox O2 Delivery O2 Flow Rate FiO2 09/23/18 04:15 98.2 62 18 167/72 (103) 97 Room Air 09/22/18 20:20 Room Air 09/22/18 17:59 98.0 62 20 158/74 (102) 96 Room Air 09/22/18 09:00 Room Air I & O 09/23/18 07:00 Intake Total 1070 ml Balance 1070 ml Capillary Refill : General Appearance: No Apparent Distress, WD/WN HEENT: Normal ENT Inspection Neck: Normal Inspection Respiratory: Lungs Clear, No Accessory Muscle Use, No Respiratory Distress Cardiovascular: Regular Rate, Rhythm, No Murmur Gastrointestinal: non tender, soft Results Lab Laboratory Tests 09/22/18 12:04: Glucometer 267H 09/22/18 16:32: Glucometer 235H 09/22/18 20:53: Glucometer 259H 09/23/18 06:06: Glucometer 117H Assessment/Plan Assessment/Plan Assess & Plan/Chief Complaint Debility. Parkinson disease. Dementia. Mental status change improving. Diabetes. Increased the dose of Sinemet. . 09/10/18. Debility better. Parkinson disease. Dementia. Mental status change improved. Diabetes sugars still little bit high. Cogwheel motion of right arm much less. . 09/13/18. Debility better. Parkinson disease. Dementia. Diabetes patient hypoglycemic this morning. Patient still has Patel catheter in. . 09/14/18. Debility. Patel catheter removed. Straight catheter once. Dementia. Diabetes. Patient improving. . 09/15/18. Debility. Dementia. Diabetes. Patient walking better. Patient standing up straight. Patient still has cogwheel motion of the right upper arm. Patient talking better. Patient improving. . 09/16/18. Debility better. Dementia improving. Diabetes. Patient still having Trouble with his urination. Parkinson disease. . 09/17/18. Debility better. Patient has breakdown in the lower back. Diabetes. Dementia. Parkinson disease. Patient resting comfortably today. . Debility. Diabetes. Dementia. Parkinson disease. Patient eating good. . 09/21/18. Debility. Diabetes. Dementia. Parkinson disease. Patient resting comfortably. . 09/22/18. Debility improving. Diabetes. Dementia. Parkinson disease improving. Patient getting up better. patient still has breakdown. . 09/23/18. Debility improving. Diabetes. Dementia. Parkinson disease. Patient getting around better but has to be told what to do Clinical Quality Measures DVT/VTE Risk/Contraindication: Risk Factor Score Per Nursin RFS Level Per Nursing on Admit: 4+=Very High DENIZ KENT DO Sep 23, 2018 07:43
--- NOTE | 2018-09-23 08:17 | Cardiology Progress Note ---
Subjective Date Seen by Provider: Sep 23, 2018 Time Seen by Provider: 08:16 Subjective/Events-last exam Patient in chair, no new complaints. Denies any CP, dizziness or lightheadedness. Objective-Cardiology Exam Last Set of Vital Signs Vital Signs 09/23/18 04:15 Temp 98.2 Pulse 62 Resp 18 B/P (MAP) 167/72 (103) Pulse Ox 97 O2 Delivery Room Air Capillary Refill : I&O Intake and Output 09/23/18 00:00 Intake Total 870 ml Balance 870 ml Intake Oral 870 ml Bladder Scan Volume Amount 236 ml 267 ml # Voids 8 # Bowel Movements 1 General: Alert, Cooperative, No Acute Distress HEENT: Atraumatic, PERRLA, EOMI, Mucous Memb Moist/[employer] Neck: Supple, No JVD Lungs: Clear to Auscultation Heart: Regular Rate, Normal S1, Normal S2 Abdomen: Normal Bowel Sounds, Soft, No Tenderness Extremities: No Cyanosis, No Edema Skin: No Rashes Neuro: Normal Speech, Other (Impaired strength Left leg Impaired balance Mild dementia with memory loss) A/P-Cardiology Admission Diagnosis Generalized weakness PAF CAD HTN Assessment/Plan Generalized weakness, improving, workup has been negative. Continue his physical therapy Change in mental status, had previous hospitalization and evaluation in the ER for change in mental status in the past, workup at that time was negative. Appears back to baseline. Continue with physical therapy Parkinson, started on Sinemet, followed by primary care team Sick sinus syndrome, history of episodes of bradycardia with complete heart block, frequent PVCs, ventricular bigeminy and ventricular couplets, short PAT' s. Status post permanent pacemaker implantation April 2015, using a [employer] device Advisa DR GONZALEZ, good sensing and capture. Continue to monitor History of nonsustained ventricular tachycardia, noted on interrogation on July 02, 2016, has been maintained on amiodarone 200 mg daily. Continue to monitor Paroxysmal atrial fibrillation, maintained on Eliquis. Continue to monitor [id number] score of 6, high risk, yearly risk of stroke without OAC is 9.8%. Maintained on Eliquis, continue to monitor Coronary artery disease, multiple interventions in the past, most recent cardiac catheterization done March 14, 2015 revealed extensive coronary artery disease, heavily calcified system, with 40 percent distal left main coronary artery stenosis. 3 stents in LAD proximally with 50-60 percent in-stent restenosis. Distal LAD had 95 percent stenosis followed by 80 percent stenosis long segment, very small artery not amendable to intervention. Total occlusion of the first obtuse marginal branch filled by collaterals. Patent stent in the proximal mid second OM branch with moderate disease in the distal proper circumflex artery. Patent stent in the RCA with 50 percent proximal right coronary artery stenosis and 50-60 distal right coronary artery stenosis. Asymptomatic, continue to monitor Stress test in July 2016 showed fixed defect involving the whole inferior wall and inferoapical segment with dilated left ventricle, inferior wall hypokinesia, Ejection fraction 54 percent. Echocardiogram showed ejection fraction 60 percent, dilated left atrium, mild to moderate mitral regurgitation and pulmonary artery pressure of 35 mmHg. continue to monitor Hypertension, mildly elevated blood pressure, I am hesitant to increase his blood pressure medications due to to the fact that he might have orthostatic hypotension or syncope. He is currently asymptomatic. Continue on current medication monitor Hyperlipidemia, statin discontinued secondary to increased weakness. Continue to monitor lipids as outpatient. History of CVA in 2010, mild residual right sided weakness, episodes of confusion occurred over the last year where patient became confused and drove over once to [place] and once to [place]. It was felt that it was a global ischemic attack with confusion, workup at that time was negative. He was seen by Dr. Jiménez and started on Dilantin, the dose was increased by Dr. Damon, followed and managed by primary care physician Diabetes mellitus, managed by primary care physician. Carotid stenosis, Seen and followed by Dr Simmons, continue to monitor Ex-Tobaccoism, patient smokes pipe, he stopped smoking in October, encouraged to continue with smoking cessation Peripheral neuropathy, maintained on gabapentin. Continue on current medication , continue to monitor Sleep apnea, severe on sleep study in October 2015, does not use his machine. Clinical Quality Measures DVT/VTE Risk/Contraindication: Risk Factor Score Per Nursin RFS Level Per Nursing on Admit: 4+=Very High JOSELUIS CLINTON Sep 23, 2018 08:17
[2018-09-23 08:49] LABS: CALCIUM 10.5 MG/DL (8.5-10.1); CREATININE SERUM 1.35 MG/DL (0.60-1.30); POTASSIUM 4.5 MMOL/L (3.6-5.0)
--- NOTE | 2018-09-23 08:52 | PM & R (SOAP) Progress Note ---
Subjective This was a face to face visit with the patient. Date Seen by Provider: Sep 23, 2018 Time Seen by Provider: 08:05 Subjective/Events-last exam Patient was seen in his room this AM Patient Mod assist for grooming Review of Systems Neurological: Weakness, Confusion Objective Physician Exam Last Set of Vital Signs Vital Signs Date Time Temp Pulse Resp B/P (MAP) Pulse Ox O2 Delivery O2 Flow Rate FiO2 09/23/18 08:36 Room Air 09/23/18 04:15 98.2 62 18 167/72 (103) 97 Capillary Refill : I&O Intake and Output 09/23/18 00:00 Intake Total 870 ml Balance 870 ml Intake Oral 870 ml Bladder Scan Volume Amount 236 ml 267 ml # Voids 8 # Bowel Movements 1 General: Alert, Cooperative, No Acute Distress HEENT: Atraumatic, PERRLA, EOMI, Mucous Memb Moist/[place] Neck: Supple, No JVD Lungs: Clear to Auscultation Heart: Regular Rate, Normal S1, Normal S2 Abdomen: Normal Bowel Sounds, Soft, No Tenderness Extremities: No Cyanosis, No Edema Skin: No Rashes Neuro: Normal Speech, Other (Impaired strength Left leg Impaired balance Mild dementia with memory loss) Results Lab Data Laboratory Tests 09/20/18 11:19: Glucometer 247H 09/20/18 14:56: White Blood Count 8.4, Red Blood Count 4.59, Hemoglobin 14.8, Hematocrit 42, Mean Corpuscular Volume 92, Mean Corpuscular Hemoglobin 32, Mean Corpuscular Hemoglobin Concent 35, Red Cell Distribution Width 12.7, Platelet Count 241, Mean Platelet Volume 10.6H, Neutrophils (%) (Auto) 64, Lymphocytes (%) (Auto) 23 , Monocytes (%) (Auto) 11, Eosinophils (%) (Auto) 3, Basophils (%) (Auto) 0, Neutrophils # (Auto) 5.4, Lymphocytes # (Auto) 1.9, Monocytes # (Auto) 0.9, Eosinophils # (Auto) 0.2, Basophils # (Auto) 0.0, Sodium Level 137, Potassium Level 4.6, Chloride Level 104, Carbon Dioxide Level 23, Anion Gap 10, Blood Urea Nitrogen 28H, Creatinine 1.42H, Estimat Glomerular Filtration Rate 49, BUN/ Creatinine Ratio 20, Glucose Level 322H, Calcium Level 9.9, Corrected Calcium 10.6H, Total Bilirubin 0.3, Aspartate Amino Transf (AST/SGOT) 62H, Alanine Aminotransferase (ALT/SGPT) 14, Alkaline Phosphatase 129, Total Protein 6.9, Albumin 3.1L 09/20/18 15:45: Glucometer 335H 09/20/18 20:40: Glucometer 295H 09/21/18 05:23: Glucometer 118H 09/21/18 10:56: Glucometer 237H 09/21/18 16:05: Glucometer 270H 09/21/18 20:53: Glucometer 392H 09/22/18 05:46: Glucometer 85 09/22/18 12:04: Glucometer 267H 09/22/18 16:32: Glucometer 235H 09/22/18 20:53: Glucometer 259H 09/23/18 06:06: Glucometer 117H 09/23/18 08:25: Assessment/Plan Assessment and Plan [place] on sinemet Dementia multifactorial DM meds adjusted CAD Constipation Urinary retention improved Urinary incontinence PAF on Eliquis HX of nonsustained V tach noted 2015 maintained on Amiodarone SSS s/p pacemaker Plan Continue PT/OT Discharge set tentatively for 09-27-18 to home with spouse Co-Morbidities that are continuing to impact the rehab process: (include details ) YOVANY DANIELS MD Sep 23, 2018 08:51
[2018-09-23] MEDS: GABAPENTIN 300 MG (NEURONTIN) CAP PO SCH ×2 (09:36→20:30)
[2018-09-23] MEDS: amLODIPine 10 MG (NORVASC) TAB PO SCH (09:36)
[2018-09-23] MEDS: DAKIN'S 1/4 STRENGTH (0.125%) 473 ML BTL TOP SCH ×2 (09:36→20:31)
[2018-09-23] MEDS: APIXABAN 5 MG (ELIQUIS) TABLET PO SCH ×2 (09:36→20:30)
[2018-09-23] MEDS: SINEMET 25/100 (CARBIDOPA/LEVODOPA) TAB PO SCH ×3 (09:36→20:30)
[2018-09-23] MEDS: DOCUSATE SODIUM 100 MG (COLACE) CAP PO SCH ×2 (09:36→20:30)
[2018-09-23] MEDS: AMIODARONE 200 MG (CORDARONE) TAB PO SCH (09:36)
[2018-09-23] MEDS: QUINAPRIL 40 MG PO SCH (09:43)
--- NOTE | 2018-09-23 11:58 | Progress Note-Urology ---
Progress Note-Urology Progress Notes/Assess & Plan Progress/Assessment & Plan STABLE. PVR 184CC Final Diagnosis URINE RETENTION EVERTON GARCIA MD Sep 23, 2018 11:58
--- NOTE | 2018-09-23 12:00 | Physical Therapy Daily Note ---
PT Daily Note-Current Subjective Pt R sidelying upon arrival. Pt agrees to PT but is difficult to awaken. Mental Status Patient Orientation: Person, Confused Transfers Therapy Code Descriptions/Definitions Functional [place] Measure: 0=Not Assessed/NA 4=Minimal Assistance 1=Total Assistance 5=Supervision or Setup 2=Maximal Assistance 6=Modified [place] 3=Moderate Assistance 7=Complete [place] Therapy Quality Codes: 6 Independent with activity with or without an assistive device 5 Patient requires set up or clean up by helper. Patient completes activity by themselves 4 Supervision or touching assist (CGA). [place] provide cues , steadying assist 3 The helper provides less than half the effort to complete the activity 2 The helper provides more than half the effort to complete the activity 1 Dependent. The helper does all the effort to complete an activity 7 Patient refused to complete or attempt activity 9 The patient did not perform the activity before the current illness or injury 88 Not attempted due to Medical conditions or safety concerns Scootin Rollin Supine to/from Sit: 4 Sit to/from Stand: 5 Sit to Stand (QC): 5 Weight Bearing Right Lower Extremity: Right Full Weight Bearing Left Lower Extremity: Left Full Weight Bearing Gait Training Does the Patient Walk?: Yes Distance (FIM): 3=150 ft Distance: 150' Walk 10 feet (QC): 4 Walk 50 ft with 2 Turns(QC): 4 Walk 150 ft (QC): 4 Gait Level of Assist: 4 Gait Persons Needed: 1 Gait Assistive Device: FWW Pt needs continual direction & VC for safety as well as sequencing. Wheelchair Training Does the Pt Use a Wheelchair?: No Exercises Supine Ex: Rolling Seated Therapy Exercises: Sit to stand NuStep Minutes: 15 NuStep Workload: 4 Treatments Pt transfers from bed to standing with assistance from FELTER TENNIS BALLS. Pt ambulates in hallway. Pt uses NuStep for 15m at WL 4. Pt takes rest break before ambulating again in hallway. Pt transfers back to R sidelying for Nurse & Wound Care Nurse to check sacral wound & redress. Pt completes Supine Ex in bed but is very drowsy and requires FELTER TENNIS BALLS to awaken pt several times. Pt resting at end of tx in bed to avoid pressure on sacral wound. Pt has all needs met. Assessment Current Status: Fair Progress Pt fatigues and needs rest breaks occasionally. Pt is confused at times and needs redirection. PT Short Term Goals Short Term Goals Time Frame: Sep 15, 2018 Transfers (B,C,W/C) (FIM): 4 Gait (FIM): 1 Gait Distance Comment: 20' Gait Level of Assist: 3 Gait Assistive Device: Walker Cristian Wheelchair Distance: 20' PT Correction Goals Correction Goals PT Correction Goals Time Frame: Sep 29, 2018 Transfers (B,C,W/C) (FIM): 4 Sit to Lying (QC): 4 Lying-Sitting on Side/Bed(QC): 4 Sit to Stand (QC): 4 Rollin Roll Left to Right (QC): 4 Chair/Yxy-kz-Paqyx Xfer(QC): 4 Car Transfer (QC): 4 Does the Patient Walk: Yes Gait (FIM): 2 Gait distance (FIM): 1=up to 49 ft Distance: 50' Walk 10 feet (QC): 3 Walk 10ft-Uneven Surface(QC): 3 Walk 50ft with 2 Turns (QC): 3 Walk 150 ft (QC): 0 Gait Level of Assist: 4 Gait Assistive Device: Walker Cristian Does the Pt use WC or Scooter?: Yes Wheelchair (FIM): 2 Wheelchair distance (FIM): 1=up to 49 ft Distance: 50 Wheelchair Level of Assist: 4 Wheel 50 feet with 2 turns (QC: 4 Stairs (FIM): 1 # of Steps: 1 1 Step (curb) (QC): 3 4 Steps (QC): 0 12 Steps (QC): 0 Stairs Level Of Assist: 4 Picking up an Object (QC): 0 PT Plan Problem List Problem List: Activity Tolerance, Functional Strength, Safety, Balance, Gait, Transfer Treatment/Plan Treatment Plan: Continue Plan of Care Treatment Plan: Bed Mobility, Concurrent Therapy, Education, Functional Activity Navya, Functional Strength, Group Therapy, Gait, Safety, Therapeutic Exercise, Transfers Treatment Duration: Sep 29, 2018 Frequency: At least 5 of 7 days/Wk (IRF) Estimated Hrs Per Day: 1.5 hours per day Patient and/or Family Agrees t: Yes Safety Risks/Education Patient Education: Gait Training, Transfer Techniques, Correct Positioning, Safety Issues Teaching Recipient: Patient Teaching Methods: Discussion Response to Teaching: Reinforcement Needed Time/GCodes Time In: 1045 Time Out: 1200 Total Billed Treatment Time: 75 Total Billed Treatment 1, GT (20m), FA x2 (25m) & EX x2 (30m) G Codes Necessary: DENY Chaves FELTER TENNIS BALLS Sep 23, 2018 12:00
--- NOTE | 2018-09-23 12:06 | Occupational Ther Daily Note ---
OT Current Status-Daily Note Subjective Pt seen in room, up in recliner, agreeable to OT. No pain mentioned. Appearance Pleasant but with flat affect and did not initiate activity or discussion Mental Status/Objective Therapy Code Descriptions/Definitions Functional [place] Measure: 0=Not Assessed/NA 4=Minimal Assistance 1=Total Assistance 5=Supervision or Setup 2=Maximal Assistance 6=Modified [place] 3=Moderate Assistance 7=Complete [place] ADL-Treatment He was able to finish eating breakfast without any cues, with setup. He tends to slouch down in recliner and occasionally needs cues to sit back up in chair. He needed skilled cues to get up safely from recliner, with FWW and walked CGA, FWW to bathroom to toilet and groom. He needed CGA for clothing management and toilet transfers (to [facility]) and wiped without help. As he was pulling clothes up, apparently had to toilet again. Cues to initiate clothing management when done toileting. Stood at sink, pushing FWW aside, to brush teeth. Cues needed throughout. He left hot water running and appeared to be unaware of safety issue. He needed to sit to recover after standing at sink and toileting. Therapy Code Descriptions/Definitions Functional [place] Measure: 0=Not Assessed/NA 4=Minimal Assistance 1=Total Assistance 5=Supervision or Setup 2=Maximal Assistance 6=Modified [place] 3=Moderate Assistance 7=Complete [place] Therapy Quality Codes: 6 Independent with activity with or without an assistive device 5 Patient requires set up or clean up by helper. Patient completes activity by themselves 4 Supervision or touching assist (CGA). [place] provide cues , steadying assist 3 The helper provides less than half the effort to complete the activity 2 The helper provides more than half the effort to complete the activity 1 Dependent. The helper does all the effort to complete an activity 7 Patient refused to complete or attempt activity 9 The patient did not perform the activity before the current illness or injury 88 Not attempted due to Medical conditions or safety concerns Grooming (FIM): 4 (CGA) Toileting (FIM): 4 (CGA) Toilet/Commode Transfer (FIM): 4 (CGA) Other Treatment He walked with CGA, FWW to gym, skilled cues to attend to where he was walking. Cues for reaching back before sitting in chair with arms. He was able to complete about 1/3 of nuts and bolts activity, needing cues for 75% of task steps. 1# weight on each arm. To strengthen arms to help with transfers and ADLs. Pt needed cues for hand placement for getting up from chair, then walked CGA, FWW back to room, cues to stay on task and orient to room location. Pt left up in recliner, cues for hand placement, legs elevated, chair alarm on, all needs met. Education OT Patient Education: Exercise program, Modified ADL techniques, Progress toward Goal/Update tx plan, Purpose of tx/functional activities, Safety issues, Transfer techniques Teaching Recipient: Patient Teaching Methods: Demonstration, Discussion Response to Teaching: Verbalize Understanding, Return Demonstration, Reinforcement Needed OT Short Term Goals Short Term Goals Time Frame: Sep 15, 2018 Grooming(FIM): 5 Transfers (B,C,W/C) (FIM): 4 Toilet/Commode Transfer(FIM): 4 1=Demonstrate adherence to instructed precautions during ADL tasks. 2=Patient will verbalize/demonstrate understanding of assistive devices/ modifications for ADL. 3=Patient will improve strength/tolerance for activity to enable patient to perform ADL's. OT Cleaning Specialist Goals Cleaning Specialist Goals Time Frame: Sep 29, 2018 Eating (FIM): 6 Eating (QC): 6 Groomin Oral Hygiene (QC): 5 Bathing(FIM): 5 Shower/Bathe Self (QC): 5 Upper Body Dressing(FIM): 6 Upper Body Dressing (QC): 6 Lower Body Dressing(FIM): 6 Lower Body Dressing (QC): 6 On/Off Footwear (QC): 6 Toileting(FIM): 6 Toileting Hygiene (QC): 6 Toilet/Commode Transfer(FIM): 6 Toilet/Commode Transfer (QC): 6 Shower Transfer(FIM): 5 Additional Goals: 1-Demonstrate ADL Tasks, 2-Verbalize Understanding, 3- ImproveStrength/[place] 1=Demonstrate adherence to instructed precautions during ADL tasks. 2=Patient will verbalize/demonstrate understanding of assistive devices/ modifications for ADL. 3=Patient will improve strength/tolerance for activity to enable patient to perform ADL's. OT Education/Plan Problem List/Assessment Pt would benefit from skilled OT to increase his independence in basic self care Discharge Recommendations Plan/Recommendations: Continue POC Treatment Plan/Plan of Care Patient would benefit from OT for education, treatment and training to promote independence in ADL's, mobility, safety and/or upper extremity function for ADL' s. Plan of Care: ADL Retraining, Caregiver Training, Functional Mobility, Group Exercise/Act as Ind (education, exercise, socialization, funct activities, communication), UE Funct Exercise/Act, UE Neuromus Re-Ed/Coord, Visual/ Perceptual Retrain Treatment Duration: Sep 29, 2018 Frequency: At least 5 of 7 days/Wk (IRF) Estimated Hrs Per Day: 1.5 hours per day (1.25 to 1.5) Agreement: Yes Rehab Potential: Fair Time/GCodes Start Time: 08:15 Stop Time: 09:30 Total Time Billed (hr/min): 75 Billed Treatment Time visit, 45 minutes ADL, 30 minutes exercise CECILIA BOYD OT Sep 23, 2018 12:06
--- NOTE | 2018-09-23 14:53 | Speech Therapy Daily Note ---
Speech Daily Progress Note Subjective Date Seen by Provider: Sep 23, 2018 Time Seen by Provider: 00:30 Patient pleasant and cooperative. Assessment Assessment Current Status: Fair Progress Treatment Plan Continue Plan of Care Communication Comprehension: 4 Expression: 4 Social Cognition Social Interaction: 4 Problem Solvin Memory: 3 Speech Short Term Goals Short Term Goals Short Term Goals 1) Patient will complete simple memory tasks at 75% with minimal cues. 2) Patient will complete simple problem solving tasks at 75% with minimal cues. 3) Patient will complete simple 1 step directions with 75% with minimal cues. Speech New Business Clerk Goals [facility] Goals Patient will improve cognitive-communication tasks for improved safety and independence. Speech-Plan Patient/Family Goals Patient/Family Goals: Patient plans to return home with his post rehab. Treatment Plan Speech Therapy Treatment Plan: Continue Plan of Care Patient continues progress, however due to his falling asleep very easily and frequently he isn't progressing as well as antcipated. Treatment Duration: Sep 08, 2018 Frequency: 5 times per week Estimated Hrs Per Day: .5 hour per day Rehab Potential: Fair Barriers to Learning: Patient falls asleep very easily. Pt/Family Agrees to Plan: Yes Safety Risks/Education Teaching Recipient: Patient Teaching Methods: Discussion Response to Teaching: Verbalize Understanding Education Topics Provided: Safety. Time Speech Therapy Time In: 13:30 Speech Therapy Time Out: 14:00 Total Billed Time: 30 Billed Treatment Time [address] Sep 23, 2018 14:53
[2018-09-23] MEDS: TAMSULOSIN 0.4 MG (FLOMAX) CAP PO SCH (18:33)
[2018-09-23 18:43] VITALS: BP 143/72
[2018-09-23] MEDS: PHENYTOIN 100 MG (DILANTIN) CAP PO SCH (20:30)
[2018-09-23] MEDS: meTOprolol SUCCINATE 100 MG (TOPROL XL) TAB PO SCH (20:30)
[2018-09-23] MEDS: inSUlin DETERMIR 1 UNIT/0.01 ML (LEVEMIR) CHARGE PER UNIT SQ SCH (20:30)
[2018-09-24 05:33] VITALS: BP 171/75
[2018-09-24] MEDS: inSUlin ASPART (NovoLOG) 1 UNIT/0.01 ML (CHARGE PER UNIT) SC SCH ×4 (05:36→22:02)
[2018-09-24] MEDS: MULTIVIT W/MINERALS TAB (THERAGRAN M) PO SCH (06:29)
[2018-09-24] MEDS: OMEGA 3 (FISH OIL) 1000 MG CAP PO SCH ×2 (06:29→16:36)
[2018-09-24] MEDS: glipiZIDE 5 MG (GLUCOTROL) TAB PO SCH (06:29)
--- NOTE | 2018-09-24 07:39 | Progress Note (SOAP) ---
Subjective Time Seen by a Provider: 07:36 Subjective/Events-last exam Patient doing better. Patient ate his own breakfast. Patient seems content. Patient has improved much since admission Objective Exam Vital Signs Date Time Temp Pulse Resp B/P (MAP) Pulse Ox O2 Delivery O2 Flow Rate FiO2 09/24/18 05:33 97.5 60 18 171/75 (107) 97 Room Air 09/23/18 21:00 Room Air 09/23/18 18:43 98.2 70 20 143/72 (95) 98 Room Air 09/23/18 08:36 Room Air I & O 09/24/18 07:00 Intake Total 850 ml Balance 850 ml Capillary Refill : General Appearance: No Apparent Distress, WD/WN HEENT: Normal ENT Inspection Neck: Normal Inspection Respiratory: Lungs Clear, Normal Breath Sounds, No Accessory Muscle Use, No Respiratory Distress Cardiovascular: Regular Rate, Rhythm, No Murmur Gastrointestinal: non tender, soft Results Lab Laboratory Tests 09/23/18 08:25 Laboratory Tests 09/23/18 08:25: Sodium Level 138, Potassium Level 4.5, Chloride Level 103, Carbon Dioxide Level 26, Anion Gap 9, Blood Urea Nitrogen 23H, Creatinine 1.35H, Estimat Glomerular Filtration Rate 52, BUN/Creatinine Ratio 17, Glucose Level 156H, Calcium Level 10.5H 09/23/18 11:06: Glucometer 267H 09/23/18 16:17: Glucometer 174H 09/23/18 20:28: Glucometer 294H 09/24/18 05:04: Glucometer 148H Assessment/Plan Assessment/Plan Assess & Plan/Chief Complaint Debility. Parkinson disease. Dementia. Mental status change improving. Diabetes. Increased the dose of Sinemet. . 09/10/18. Debility better. Parkinson disease. Dementia. Mental status change improved. Diabetes sugars still little bit high. Cogwheel motion of right arm much less. . 09/13/18. Debility better. Parkinson disease. Dementia. Diabetes patient hypoglycemic this morning. Patient still has Patel catheter in. . 09/14/18. Debility. Patel catheter removed. Straight catheter once. Dementia. Diabetes. Patient improving. . 09/15/18. Debility. Dementia. Diabetes. Patient walking better. Patient standing up straight. Patient still has cogwheel motion of the right upper arm. Patient talking better. Patient improving. . 09/16/18. Debility better. Dementia improving. Diabetes. Patient still having Trouble with his urination. Parkinson disease. . 09/17/18. Debility better. Patient has breakdown in the lower back. Diabetes. Dementia. Parkinson disease. Patient resting comfortably today. . Debility. Diabetes. Dementia. Parkinson disease. Patient eating good. . 09/21/18. Debility. Diabetes. Dementia. Parkinson disease. Patient resting comfortably. . 09/22/18. Debility improving. Diabetes. Dementia. Parkinson disease improving. Patient getting up better. patient still has breakdown. . 09/23/18. Debility improving. Diabetes. Dementia. Parkinson disease. Patient getting around better but has to be told what to do. . 09/24/18. Debility better. Diabetes better. Dementia. Parkinson disease. Patient eating good Clinical Quality Measures DVT/VTE Risk/Contraindication: Risk Factor Score Per Nursin RFS Level Per Nursing on Admit: 4+=Very High DENIZ KENT DO Sep 24, 2018 07:39
[2018-09-24] MEDS: QUINAPRIL 40 MG PO SCH (07:45)
[2018-09-24] MEDS: amLODIPine 10 MG (NORVASC) TAB PO SCH (07:45)
[2018-09-24] MEDS: DAKIN'S 1/4 STRENGTH (0.125%) 473 ML BTL TOP SCH ×2 (07:46→22:31)
[2018-09-24] MEDS: GABAPENTIN 300 MG (NEURONTIN) CAP PO SCH ×2 (07:46→22:06)
[2018-09-24] MEDS: SINEMET 25/100 (CARBIDOPA/LEVODOPA) TAB PO SCH ×3 (07:46→22:06)
[2018-09-24] MEDS: APIXABAN 5 MG (ELIQUIS) TABLET PO SCH ×2 (07:46→22:06)
[2018-09-24] MEDS: AMIODARONE 200 MG (CORDARONE) TAB PO SCH (07:46)
[2018-09-24] MEDS: DOCUSATE SODIUM 100 MG (COLACE) CAP PO SCH ×2 (07:46→21:00)
--- NOTE | 2018-09-24 08:25 | Cardiology Progress Note ---
Subjective Date Seen by Provider: Sep 24, 2018 Time Seen by Provider: 08:20 Subjective/Events-last exam Patient is laying down in bed, no new complaint, no chest pain or shortness of breath Review of Systems General: No Chills, No Night Sweats; Fatigue; No Malaise, No Appetite, No Other HEENT: No Head Aches, No Visual Changes, No Eye Pain, No Ear Pain, No Dysphasia , No Sinus Congestion, No Post Nasal Drip, No Sore Throat, No Other Pulmonary: No Dyspnea, No Cough, No Pleuritic Chest Pain, No Other Objective-Cardiology Exam Last Set of Vital Signs Vital Signs 09/24/18 09/24/18 05:33 07:43 Temp 97.5 Pulse 60 Resp 18 B/P (MAP) 171/75 (107) Pulse Ox 97 O2 Delivery Room Air Capillary Refill : I&O Intake and Output 09/24/18 00:00 Intake Total 1150 ml Balance 1150 ml Intake Oral 1150 ml Bladder Scan Volume Amount 184 ml # Voids 6 # Urine Diapers 3 General: Alert, Cooperative, No Acute Distress HEENT: Atraumatic, PERRLA, EOMI, Mucous Memb Moist/[place] Neck: Supple, No JVD Lungs: Clear to Auscultation Heart: Regular Rate, Normal S1, Normal S2 Abdomen: Normal Bowel Sounds, Soft, No Tenderness Extremities: No Cyanosis, No Edema Skin: No Rashes Neuro: Normal Speech, Other (Impaired strength Left leg Impaired balance Mild dementia with memory loss) Results Lab Laboratory Tests 09/23/18 08:25 A/P-Cardiology Admission Diagnosis Generalized weakness PAF CAD HTN Assessment/Plan Generalized weakness, receiving physical therapy and improving, continue to monitor Status post change in mental status, had previous hospitalization and evaluation in the ER for change in mental status in the past, workup at that time was negative. Appears back to baseline. Continue with physical therapy Parkinson, started on Sinemet, followed by primary care team Sick sinus syndrome, history of episodes of bradycardia with complete heart block, frequent PVCs, ventricular bigeminy and ventricular couplets, short PAT' s. Status post permanent pacemaker implantation April 2015, using a MedOculeve device Lenin GONZALEZ, good sensing and capture. Continue to monitor History of nonsustained ventricular tachycardia, noted on interrogation on July 02, 2016, has been maintained on amiodarone 200 mg daily. Continue to monitor Paroxysmal atrial fibrillation, maintained on Eliquis. Continue to monitor [id number] score of 6, high risk, yearly risk of stroke without OAC is 9.8%. Maintained on Eliquis, continue to monitor Coronary artery disease, multiple interventions in the past, most recent cardiac catheterization done March 14, 2015 revealed extensive coronary artery disease, heavily calcified system, with 40 percent distal left main coronary artery stenosis. 3 stents in LAD proximally with 50-60 percent in-stent restenosis. Distal LAD had 95 percent stenosis followed by 80 percent stenosis long segment, very small artery not amendable to intervention. Total occlusion of the first obtuse marginal branch filled by collaterals. Patent stent in the proximal mid second OM branch with moderate disease in the distal proper circumflex artery. Patent stent in the RCA with 50 percent proximal right coronary artery stenosis and 50-60 distal right coronary artery stenosis. Asymptomatic, continue to monitor Stress test in July 2016 showed fixed defect involving the whole inferior wall and inferoapical segment with dilated left ventricle, inferior wall hypokinesia, Ejection fraction 54 percent. Echocardiogram showed ejection fraction 60 percent, dilated left atrium, mild to moderate mitral regurgitation and pulmonary artery pressure of 35 mmHg. continue to monitor Hypertension, maintained on Toprol 100, Norvasc 10 and Quinapril 40, mildly elevated blood pressure, I am hesitant to increase his blood pressure medications due to to the fact that he might have orthostatic hypotension or syncope. He is currently asymptomatic. Continue on current medication monitor Chronic renal insufficiency, continue to monitor renal function Hyperlipidemia, statin discontinued secondary to increased weakness. Continue to monitor lipids as outpatient. History of CVA in 2010, mild residual right sided weakness, episodes of confusion occurred over the last year where patient became confused and drove over once to [place] and once to [place]. It was felt that it was a global ischemic attack with confusion, workup at that time was negative. He was seen by Dr. Jiménez and started on Dilantin, the dose was increased by Dr. Damon, followed and managed by primary care physician Diabetes mellitus, managed by primary care physician. Carotid stenosis, Seen and followed by Dr Simmons, continue to monitor Ex-Tobaccoism, patient smokes pipe, he stopped smoking in October, encouraged to continue with smoking cessation Peripheral neuropathy, maintained on gabapentin. Continue on current medication , continue to monitor Sleep apnea, severe on sleep study in October 2015, does not use his machine. Clinical Quality Measures DVT/VTE Risk/Contraindication: Risk Factor Score Per Nursin RFS Level Per Nursing on Admit: 4+=Very High SEBASTIÁN VALLE MD Sep 24, 2018 08:25
[2018-09-24 08:30] VITALS: BP 112/75
--- NOTE | 2018-09-24 09:53 | Progress Note-Urology ---
Progress Note-Urology Progress Notes/Assess & Plan Progress/Assessment & Plan PVR UNDER 200. SEE PRN Final Diagnosis URINE RETENTION EVERTON GARCIA MD Sep 24, 2018 09:52
--- NOTE | 2018-09-24 10:39 | Speech Therapy Daily Note ---
Speech Daily Progress Note Subjective Date Seen by Provider: Sep 24, 2018 Time Seen by Provider: 00:30 Patient was sleepy again this am, requiring frequent prompts to wake up in order to participate. Objective Patient participated in memory tasks with frequent verbal cues at 70% accuracy. Treatment Plan Continue Plan of Care Communication Comprehension: 4 Expression: 4 Social Cognition Social Interaction: 4 Problem Solvin Memory: 3 Speech Short Term Goals Short Term Goals Short Term Goals 1) Patient will complete simple memory tasks at 75% with minimal cues. 2) Patient will complete simple problem solving tasks at 75% with minimal cues. 3) Patient will complete simple 1 step directions with 75% with minimal cues. Speech Quality Systems Manager Goals [facility] Goals Patient will improve cognitive-communication tasks for improved safety and independence. Speech-Plan Patient/Family Goals Patient/Family Goals: Patient plans to return home with his post rehab. Treatment Plan Speech Therapy Treatment Plan: Continue Plan of Care Patient is progressing with goals in order to return home. Treatment Duration: Sep 28, 2018 Frequency: 5 times per week Estimated Hrs Per Day: .5 hour per day Rehab Potential: Fair Barriers to Learning: Patient has dementia and falls asleep during sessions very easily. Pt/Family Agrees to Plan: Yes Safety Risks/Education Teaching Recipient: Patient Teaching Methods: Discussion Response to Teaching: Verbalize Understanding Education Topics Provided: Safety and utilization of call light. Time Speech Therapy Time In: 09:00 Speech Therapy Time Out: 09:30 Total Billed Time: 30 Billed Treatment Time 1[address] Sep 24, 2018 10:39
--- NOTE | 2018-09-24 11:25 | Physical Therapy Daily Note ---
PT Daily Note-Current Subjective Pt sleeping upon therapist entry to room. Pt pleasant and agreeable to therapy. Mental Status Patient Orientation: Person Transfers Therapy Code Descriptions/Definitions Functional [place] Measure: 0=Not Assessed/NA 4=Minimal Assistance 1=Total Assistance 5=Supervision or Setup 2=Maximal Assistance 6=Modified [place] 3=Moderate Assistance 7=Complete [place] Therapy Quality Codes: 6 Independent with activity with or without an assistive device 5 Patient requires set up or clean up by helper. Patient completes activity by themselves 4 Supervision or touching assist (CGA). [place] provide cues , steadying assist 3 The helper provides less than half the effort to complete the activity 2 The helper provides more than half the effort to complete the activity 1 Dependent. The helper does all the effort to complete an activity 7 Patient refused to complete or attempt activity 9 The patient did not perform the activity before the current illness or injury 88 Not attempted due to Medical conditions or safety concerns Transfers (B, C, W/C) (FIM): 4 Supine to/from Sit: 4 Bed to/from Chair: 4 education on sequence for sit to stand and bed mobility. Performed simulated car transfer with Min assist to raise the lead leg in and out of the car. Weight Bearing Right Lower Extremity: Right Full Weight Bearing Left Lower Extremity: Left Full Weight Bearing Gait Training Gait (FIM): 4 Distance: 200 Gait Level of Assist: 4 Gait Persons Needed: 1 Gait Assistive Device: FWW Ambulate distances of 75, 150, 200, 150, 75 ft all with FWW and intermittent cues to increase stride length and pick feet up not shuffle. Stair Training Stair Training: Handrails/: 2 handrails Stairs (FIM): 4 #of Steps: 12 12 steps bilateral rails with Min A for balance and instruction on sequence. Exercises Supine Ex: Ankle pumps, Lower trunk rotation, Heel Slides, Short Arc Quads Supine Reps: 15 Standing: Hip Abduction, Heel/toe raises, Sit to Stand NuStep Minutes: 10 NuStep Workload: 5 Assessment Current Status: Fair Progress Pt progressing with physical abilities. Continues to need frequent physical and tactile cues for sequencing. PT Short Term Goals Short Term Goals Time Frame: Sep 15, 2018 Transfers (B,C,W/C) (FIM): 4 Gait (FIM): 1 Gait Distance Comment: 20' Gait Level of Assist: 3 Gait Assistive Device: Walker Cristian Wheelchair Distance: 20' PT Machine Operator Picker Goals Fpc Goals PT Fpc Goals Time Frame: Sep 29, 2018 Transfers (B,C,W/C) (FIM): 4 Sit to Lying (QC): 4 Lying-Sitting on Side/Bed(QC): 4 Sit to Stand (QC): 4 Rollin Roll Left to Right (QC): 4 Chair/Rct-bl-Neiky Xfer(QC): 4 Car Transfer (QC): 4 Does the Patient Walk: Yes Gait (FIM): 2 Gait distance (FIM): 1=up to 49 ft Distance: 50' Walk 10 feet (QC): 3 Walk 10ft-Uneven Surface(QC): 3 Walk 50ft with 2 Turns (QC): 3 Walk 150 ft (QC): 0 Gait Level of Assist: 4 Gait Assistive Device: Walker Cristian Does the Pt use WC or Scooter?: Yes Wheelchair (FIM): 2 Wheelchair distance (FIM): 1=up to 49 ft Distance: 50 Wheelchair Level of Assist: 4 Wheel 50 feet with 2 turns (QC: 4 Stairs (FIM): 1 # of Steps: 1 1 Step (curb) (QC): 3 4 Steps (QC): 0 12 Steps (QC): 0 Stairs Level Of Assist: 4 Picking up an Object (QC): 0 PT Plan Treatment/Plan Treatment Plan: Continue Plan of Care Treatment Plan: Bed Mobility, Concurrent Therapy, Education, Functional Activity Navya, Functional Strength, Group Therapy, Gait, Safety, Therapeutic Exercise, Transfers Treatment Duration: Sep 29, 2018 Frequency: At least 5 of 7 days/Wk (IRF) Estimated Hrs Per Day: 1.5 hours per day Patient and/or Family Agrees t: Yes Safety Risks/Education Patient Education: Gait Training, Transfer Techniques Time/GCodes Time In: 1000 Time Out: 1100 Total Billed Treatment Time: 60 Total Billed Treatment visit, gait 30min, ex 20 min, FA 10 min HARDY JAUREGUI PT Sep 24, 2018 11:25
--- NOTE | 2018-09-24 12:56 | Occupational Ther Daily Note ---
OT Current Status-Daily Note Subjective Pt in bed, agrees to treatment. Pt denies pain, but states he is tired today. Mental Status/Objective Therapy Code Descriptions/Definitions Functional [place] Measure: 0=Not Assessed/NA 4=Minimal Assistance 1=Total Assistance 5=Supervision or Setup 2=Maximal Assistance 6=Modified [place] 3=Moderate Assistance 7=Complete [place] ADL-Treatment Pt completed sponge bath while seated EOB. Doff shirt with SBA. Min assist to doff pants. Upper body bathing completed with SBA and verbal cues for sequencing and task completion. Pt perseverates on washing face, requires cues to wash other areas. Pt washed bilateral upper legs and roderick area. Required assist to wash feet and buttocks. Don pullover shirt with SBA. Pt able to thread right LE into Depends and pants, but requires assist with left. Stood with minimal assistance to pull pants up. Assist required for socks. Gait to restroom with FWW. Pt sat at sink for grooming tasks. Pt able to brush teeth with SBA and increased time, cues for completion. Pt combed hair with left hand , required minimal assistance to reach right side of head. Pt incontinent of urine. Transferred to toilet with minimal assistance. Assist to change Depends and don pants. Pt requires increased time for all ADL tasks. Transfer to EOB with minimal assistance. Sit to supine with SBA. Pt resting in bed with needs met and bed alarm on after session. Therapy Code Descriptions/Definitions Functional [place] Measure: 0=Not Assessed/NA 4=Minimal Assistance 1=Total Assistance 5=Supervision or Setup 2=Maximal Assistance 6=Modified [place] 3=Moderate Assistance 7=Complete [place] Therapy Quality Codes: 6 Independent with activity with or without an assistive device 5 Patient requires set up or clean up by helper. Patient completes activity by themselves 4 Supervision or touching assist (CGA). [place] provide cues , steadying assist 3 The helper provides less than half the effort to complete the activity 2 The helper provides more than half the effort to complete the activity 1 Dependent. The helper does all the effort to complete an activity 7 Patient refused to complete or attempt activity 9 The patient did not perform the activity before the current illness or injury 88 Not attempted due to Medical conditions or safety concerns Grooming (FIM): 4 Bathing (FIM): 3 Shower/Bathe Self (QC): 3 Upper Body (FIM): 5 Upper Body Dressing (QC): 4 Lower Body Dressing (FIM): 3 Lower Body Dressing (QC): 3 Toilet/Commode Transfer (FIM): 4 Toilet Transfer (QC): 3 OT Short Term Goals Short Term Goals Time Frame: Sep 15, 2018 Grooming(FIM): 5 Transfers (B,C,W/C) (FIM): 4 Toilet/Commode Transfer(FIM): 4 1=Demonstrate adherence to instructed precautions during ADL tasks. 2=Patient will verbalize/demonstrate understanding of assistive devices/ modifications for ADL. 3=Patient will improve strength/tolerance for activity to enable patient to perform ADL's. OT Half-Way Goals Marine Operations Coordinator Goals Time Frame: Sep 29, 2018 Eating (FIM): 6 Eating (QC): 6 Groomin Oral Hygiene (QC): 5 Bathing(FIM): 5 Shower/Bathe Self (QC): 5 Upper Body Dressing(FIM): 6 Upper Body Dressing (QC): 6 Lower Body Dressing(FIM): 6 Lower Body Dressing (QC): 6 On/Off Footwear (QC): 6 Toileting(FIM): 6 Toileting Hygiene (QC): 6 Toilet/Commode Transfer(FIM): 6 Toilet/Commode Transfer (QC): 6 Shower Transfer(FIM): 5 Additional Goals: 1-Demonstrate ADL Tasks, 2-Verbalize Understanding, 3- ImproveStrength/[place] 1=Demonstrate adherence to instructed precautions during ADL tasks. 2=Patient will verbalize/demonstrate understanding of assistive devices/ modifications for ADL. 3=Patient will improve strength/tolerance for activity to enable patient to perform ADL's. OT Education/Plan Problem List/Assessment Pt would benefit from skilled OT to increase his independence in basic self care Discharge Recommendations Plan/Recommendations: Continue POC Treatment Plan/Plan of Care Patient would benefit from OT for education, treatment and training to promote independence in ADL's, mobility, safety and/or upper extremity function for ADL' s. Plan of Care: ADL Retraining, Caregiver Training, Functional Mobility, Group Exercise/Act as Ind (education, exercise, socialization, funct activities, communication), UE Funct Exercise/Act, UE Neuromus Re-Ed/Coord, Visual/ Perceptual Retrain Treatment Duration: Sep 29, 2018 Frequency: At least 5 of 7 days/Wk (IRF) Estimated Hrs Per Day: 1.5 hours per day (1.25 to 1.5) Agreement: Yes Rehab Potential: Fair Time/GCodes Start Time: 08:00 Stop Time: 09:00 Total Time Billed (hr/min): 60 Billed Treatment Time 1 visit, ADLx4(60minutes) PARIS JAMIL OT Sep 24, 2018 12:56
--- NOTE | 2018-09-24 15:12 | Therapy Group Daily Note ---
Therapy Daily Group Note Patient Education Topic Other List Below Exercises LE Seated Exercise, UE Exercise Other/Notes Pt ambulated with FWW to [facility] for OT/PT group. Pt participated in introductions with verbal cues. Pt is alert, but requires cues for participation. Pt does respond to questions asked by other patients. Group education consisted of role of ARU and expectations, memory strategies, and exercise. Pt participated in UE/LE seated exercises with cues. Pt participated in group memory activity with cues for participation. Pt returned to room after session. Start Time: 13:00 Stop Time: 14:15 Total Billed Treatment Time: 75 Total Billed Treatment 1 visit, GRP(75minutes) PARIS JAMIL OT Sep 24, 2018 15:11
--- NOTE | 2018-09-24 15:38 | PM & R (SOAP) Progress Note ---
Subjective This was a face to face visit with the patient. Date Seen by Provider: Sep 24, 2018 Time Seen by Provider: 15:25 Subjective/Events-last exam Patient was seen in his room this afternoon Patient Min assist for transfers Objective Physician Exam Last Set of Vital Signs Vital Signs Date Time Temp Pulse Resp B/P (MAP) Pulse Ox O2 Delivery O2 Flow Rate FiO2 09/24/18 08:30 65 112/75 (87) 09/24/18 07:43 Room Air 09/24/18 05:33 97.5 18 97 Capillary Refill : I&O Intake and Output 09/24/18 00:00 Intake Total 1150 ml Balance 1150 ml Intake Oral 1150 ml Bladder Scan Volume Amount 184 ml # Voids 6 # Urine Diapers 3 General: Alert, Cooperative, No Acute Distress HEENT: Atraumatic, PERRLA, EOMI, Mucous Memb Moist/[place] Neck: Supple, No JVD Lungs: Clear to Auscultation Heart: Regular Rate, Normal S1, Normal S2 Abdomen: Normal Bowel Sounds, Soft, No Tenderness Extremities: No Cyanosis, No Edema Skin: No Rashes Neuro: Normal Speech, Other (Impaired strength Left leg Impaired balance Mild dementia with memory loss) Results Lab Data Laboratory Tests 09/21/18 16:05: Glucometer 270H 09/21/18 20:53: Glucometer 392H 09/22/18 05:46: Glucometer 85 09/22/18 12:04: Glucometer 267H 09/22/18 16:32: Glucometer 235H 09/22/18 20:53: Glucometer 259H 09/23/18 06:06: Glucometer 117H 09/23/18 08:25: Sodium Level 138, Potassium Level 4.5, Chloride Level 103, Carbon Dioxide Level 26, Anion Gap 9, Blood Urea Nitrogen 23H, Creatinine 1.35H, Estimat Glomerular Filtration Rate 52, BUN/Creatinine Ratio 17, Glucose Level 156H, Calcium Level 10.5H 09/23/18 11:06: Glucometer 267H 09/23/18 16:17: Glucometer 174H 09/23/18 20:28: Glucometer 294H 09/24/18 05:04: Glucometer 148H 09/24/18 11:26: Glucometer 178H Assessment/Plan Assessment and Plan [place] on Sinemet Dementia multifactorial DM meds adjusted CAD Constipation Urinary retention improved Urinary incontinence PAF on Eliquis HX of nonsustained V Tach noted 2015 maintained on Amiodarone SSS s/p pacemaker Plan Continue PT/FEDE Discharge remains set for Thursday09-27-18 to home with spouse Co-Morbidities that are continuing to impact the rehab process: (include details ) YOVANY DANIELS MD Sep 24, 2018 15:38
[2018-09-24] MEDS: TAMSULOSIN 0.4 MG (FLOMAX) CAP PO SCH (16:36)
[2018-09-24 17:02] VITALS: BP 142/61
[2018-09-24 21:50] VITALS: BP 170/63
[2018-09-24] MEDS: inSUlin DETERMIR 1 UNIT/0.01 ML (LEVEMIR) CHARGE PER UNIT SQ SCH (22:04)
[2018-09-24] MEDS: PHENYTOIN 100 MG (DILANTIN) CAP PO SCH (22:05)
[2018-09-24] MEDS: meTOprolol SUCCINATE 100 MG (TOPROL XL) TAB PO SCH (22:06)
[2018-09-25 05:05] VITALS: BP 120/72
[2018-09-25] MEDS: inSUlin ASPART (NovoLOG) 1 UNIT/0.01 ML (CHARGE PER UNIT) SC SCH ×4 (06:00→21:11)
[2018-09-25] MEDS: glipiZIDE 5 MG (GLUCOTROL) TAB PO SCH (07:04)
[2018-09-25] MEDS: OMEGA 3 (FISH OIL) 1000 MG CAP PO SCH ×2 (07:04→17:47)
[2018-09-25] MEDS: MULTIVIT W/MINERALS TAB (THERAGRAN M) PO SCH (07:04)
--- NOTE | 2018-09-25 07:35 | PM & R (SOAP) Progress Note ---
Subjective This was a face to face visit with the patient. Date Seen by Provider: Sep 25, 2018 Time Seen by Provider: 07:15 Subjective/Events-last exam Patient was seen in his room this AM Patient Min assist for transfers Discharge remains set for Thursday09-27-18 to home with spouse Date Identified: Sep 25, 2018 Time Identified: 07:15 Medication Intervention: Current meds reviewed Review of Systems Neurological: Weakness Objective Physician Exam Last Set of Vital Signs Vital Signs Date Time Temp Pulse Resp B/P (MAP) Pulse Ox O2 Delivery O2 Flow Rate FiO2 09/25/18 05:05 98.3 62 20 120/72 (88) 95 Room Air Capillary Refill : I&O Intake and Output 09/25/18 00:00 Intake Total 730 ml Balance 730 ml Intake Oral 730 ml Bladder Scan Volume Amount 255 ml 255 ml # Urine Diapers 6 General: Alert, Cooperative, No Acute Distress HEENT: Atraumatic, PERRLA, EOMI, Mucous Memb Moist/[place] Neck: Supple, No JVD Lungs: Clear to Auscultation Heart: Regular Rate, Normal S1, Normal S2 Abdomen: Normal Bowel Sounds, Soft, No Tenderness Extremities: No Cyanosis, No Edema Skin: No Rashes Neuro: Normal Speech, Other (Impaired strength Left leg Impaired balance Mild dementia with memory loss) Results Lab Data Laboratory Tests 09/22/18 12:04: Glucometer 267H 09/22/18 16:32: Glucometer 235H 09/22/18 20:53: Glucometer 259H 09/23/18 06:06: Glucometer 117H 09/23/18 08:25: Sodium Level 138, Potassium Level 4.5, Chloride Level 103, Carbon Dioxide Level 26, Anion Gap 9, Blood Urea Nitrogen 23H, Creatinine 1.35H, Estimat Glomerular Filtration Rate 52, BUN/Creatinine Ratio 17, Glucose Level 156H, Calcium Level 10.5H 09/23/18 11:06: Glucometer 267H 09/23/18 16:17: Glucometer 174H 09/23/18 20:28: Glucometer 294H 09/24/18 05:04: Glucometer 148H 09/24/18 11:26: Glucometer 178H 09/24/18 16:05: Glucometer 209H 09/24/18 21:00: Glucometer 210H 09/25/18 06:17: Glucometer 116H Assessment/Plan Assessment and Plan [place] on Sinemet Dementia multifactorial DM meds adjusted CAD Constipation Urinary retention improved Urinary incontinence PAF on Eliquis HX of nonsustained V Tach noted 2015 maintained on Amiodarone SSS s/p pacemaker Plan Continue PT/OT Discharge to home with spouse and HHC F/U with and PCP Co-Morbidities that are continuing to impact the rehab process: (include details ) YOVANY DANIELS MD Sep 25, 2018 07:35
[2018-09-25 07:59] VITALS: BP 173/70
[2018-09-25] MEDS: GABAPENTIN 300 MG (NEURONTIN) CAP PO SCH ×2 (08:02→20:30)
[2018-09-25] MEDS: amLODIPine 10 MG (NORVASC) TAB PO SCH (08:02)
[2018-09-25] MEDS: DOCUSATE SODIUM 100 MG (COLACE) CAP PO SCH ×2 (08:02→20:30)
[2018-09-25] MEDS: SINEMET 25/100 (CARBIDOPA/LEVODOPA) TAB PO SCH ×3 (08:02→20:30)
[2018-09-25] MEDS: AMIODARONE 200 MG (CORDARONE) TAB PO SCH (08:02)
[2018-09-25] MEDS: APIXABAN 5 MG (ELIQUIS) TABLET PO SCH ×2 (08:02→20:31)
[2018-09-25] MEDS: QUINAPRIL 40 MG PO SCH (08:03)
[2018-09-25] MEDS ORDERED: TAMS0.4C98 PO (08:13)
[2018-09-25] MEDS ORDERED: CARB1TAB19 PO ×3 (08:13)
[2018-09-25] MEDS ORDERED: INSU100V5 SQ (08:13)
[2018-09-25] MEDS ORDERED: OMG1KC PO (08:13)
[2018-09-25] MEDS ORDERED: SODI473S7 TOP (08:13)
--- NOTE | 2018-09-25 10:27 | Physical Therapy Daily Note ---
PT Daily Note-Current Subjective Patient in bed pre tx, agrees to PT, no complaints of pain. Appearance Patient BTB post tx with nurse call, phone, tray, all needs met, bed alarm on. Mental Status Patient Orientation: Person, Confused Transfers Therapy Code Descriptions/Definitions Functional [place] Measure: 0=Not Assessed/NA 4=Minimal Assistance 1=Total Assistance 5=Supervision or Setup 2=Maximal Assistance 6=Modified [place] 3=Moderate Assistance 7=Complete [place] Therapy Quality Codes: 6 Independent with activity with or without an assistive device 5 Patient requires set up or clean up by helper. Patient completes activity by themselves 4 Supervision or touching assist (CGA). [place] provide cues , steadying assist 3 The helper provides less than half the effort to complete the activity 2 The helper provides more than half the effort to complete the activity 1 Dependent. The helper does all the effort to complete an activity 7 Patient refused to complete or attempt activity 9 The patient did not perform the activity before the current illness or injury 88 Not attempted due to Medical conditions or safety concerns Transfers (B, C, W/C) (FIM): 4 Scootin Rollin Supine to/from Sit: 5 Sit to/from Stand: 4 Bed to/from Chair: 4 Weight Bearing Right Lower Extremity: Right Full Weight Bearing Left Lower Extremity: Left Full Weight Bearing Gait Training Gait (FIM): 2 Distance: 100'x2 Gait Level of Assist: 4 Gait Persons Needed: 1 Gait Assistive Device: FWW Exercises NuStep Minutes: 10 NuStep Workload: 5 Treatments bed mobility and transfers, ambulation, functional strengthening Assessment Current Status: Fair Progress Patient confused and needs many cues for direction and to stay on task. PT Short Term Goals Short Term Goals Time Frame: Sep 15, 2018 Transfers (B,C,W/C) (FIM): 4 Gait (FIM): 1 Gait Distance Comment: 20' Gait Level of Assist: 3 Gait Assistive Device: Walker Cristian Wheelchair Distance: 20' PT Clinical Psychologist Goals Clinical Psychologist Goals PT Clinical Psychologist Goals Time Frame: Sep 29, 2018 Transfers (B,C,W/C) (FIM): 4 Sit to Lying (QC): 4 Lying-Sitting on Side/Bed(QC): 4 Sit to Stand (QC): 4 Rollin Roll Left to Right (QC): 4 Chair/[id number] Xfer(QC): 4 Car Transfer (QC): 4 Does the Patient Walk: Yes Gait (FIM): 2 Gait distance (FIM): 1=up to 49 ft Distance: 50' Walk 10 feet (QC): 3 Walk 10ft-Uneven Surface(QC): 3 Walk 50ft with 2 Turns (QC): 3 Walk 150 ft (QC): 0 Gait Level of Assist: 4 Gait Assistive Device: Walker Cristian Does the Pt use WC or Scooter?: Yes Wheelchair (FIM): 2 Wheelchair distance (FIM): 1=up to 49 ft Distance: 50 Wheelchair Level of Assist: 4 Wheel 50 feet with 2 turns (QC: 4 Stairs (FIM): 1 # of Steps: 1 1 Step (curb) (QC): 3 4 Steps (QC): 0 12 Steps (QC): 0 Stairs Level Of Assist: 4 Picking up an Object (QC): 0 PT Plan Problem List Problem List: Activity Tolerance, Functional Strength, Safety, Balance, Gait, Transfer, Bed Mobility, ROM Treatment/Plan Treatment Plan: Continue Plan of Care Treatment Plan: Bed Mobility, Concurrent Therapy, Education, Functional Activity Navya, Functional Strength, Group Therapy, Gait, Safety, Therapeutic Exercise, Transfers Treatment Duration: Sep 29, 2018 Frequency: At least 5 of 7 days/Wk (IRF) Estimated Hrs Per Day: 1.5 hours per day Patient and/or Family Agrees t: Yes Safety Risks/Education Patient Education: Gait Training, Transfer Techniques, Correct Positioning, Safety Issues Teaching Recipient: Patient Teaching Methods: Demonstration, Discussion Response to Teaching: Reinforcement Needed Time/GCodes Time In: 1004 Time Out: 1024 Total Billed Treatment Time: 20 Total Billed Treatment 1 visit EX 20' FABRICIO ALFONSO PT Sep 25, 2018 10:27
[2018-09-25] MEDS: DAKIN'S 1/4 STRENGTH (0.125%) 473 ML BTL TOP SCH ×2 (10:47→21:12)
[2018-09-25 11:08] VITALS: BP 113/60
[2018-09-25] MEDS: TAMSULOSIN 0.4 MG (FLOMAX) CAP PO SCH (17:47)
[2018-09-25 18:00] VITALS: BP 142/68
--- NOTE | 2018-09-25 19:15 | Cardiology Progress Note ---
Cardiology SOAP Progress Note Subjective: No cardiac complaints. Objective: I&O/Vital Signs 09/25/18 09/25/18 09/25/18 09:59 11:08 18:00 Temp 97.3 Pulse 68 60 Resp 16 B/P (MAP) 113/60 (77) 142/68 (92) Pulse Ox 92 O2 Delivery Room Air Room Air 09/25/18 00:00 Intake Total 680 ml Balance 680 ml Weight (Pounds): 177 Weight (Ounces): 4.8 Weight (Calculated Kilograms): 80.059221 Constitutional: AAO x 3 Respiratory: No accessory muscle use, No respiratory distress, No chest tender , No chest expansion is symmetric; chest is bilaterally symmetric; No lungs clear to percussion; lungs clear to auscultation; No crackles, No rhonchi, No rales, No stridor, No wheezing, No pleural rub, No other Cardiovascular: regular rate-rhythm; No irregularly irregular, No extra beats, No parasternal heave is noted, No JVD, No edema, No bradycardia, No tachycardia , No point of maximal impulse, No cardiac thrills are palpable; S1 and S2; No gallop/S3, No gallop/S4, No diastolic murmur, No systolic murmur, No friction rub, No click, No other Gastrointestional: No tender, No soft, No round, No distended, No pulsatile mass, No organomegaly, No guarding, No rebound, No tenderness, No hernia, No mass, No audible bowel sounds, No abnormal bowel sounds, No abdominal bruits, No spleenomegaly, No other Extremities: No normal range of motion, No non-tender, No normal inspection, No pedal edema, No calf tenderness, No normal capillary refill, No pelvis stable , No calf tenderness, No inflammation, No pedal edema, No slow capillary refill , No swelling, No other, No abrasion, No clubbing, No cyanosis, No ecchymosis, No laceration, No no lower extremity edema bilateral, No significant edema, No tenderness, No wound Neurologic/Psychiatric: alert, normal mood/affect, oriented x 3, motor weakness Results/Procedures: Labs Laboratory Tests 09/25/18 06:17: Glucometer 116H 09/25/18 11:25: Glucometer 143H 09/25/18 16:02: Glucometer 226H 09/25/18 20:53: Glucometer 215H A/P: Assessment/Dx: Admission Diagnosis Generalized weakness PAF CAD HTN Plan: Assessment/Plan Generalized weakness, receiving physical therapy and improving, continue to monitor Status post change in mental status, had previous hospitalization and evaluation in the ER for change in mental status in the past, workup at that time was negative. Appears back to baseline. Continue with physical therapy Parkinson, started on Sinemet, followed by primary care team Sick sinus syndrome, history of episodes of bradycardia with complete heart block, frequent PVCs, ventricular bigeminy and ventricular couplets, short PAT' s. Status post permanent pacemaker implantation April 2015, using a [employer] device Advisa DR GONZALEZ, good sensing and capture. Continue to monitor History of nonsustained ventricular tachycardia, noted on interrogation on July 02, 2016, has been maintained on amiodarone 200 mg daily. Continue to monitor Paroxysmal atrial fibrillation, maintained on Eliquis. Continue to monitor [id number] score of 6, high risk, yearly risk of stroke without OAC is 9.8%. Maintained on Eliquis, continue to monitor Coronary artery disease, multiple interventions in the past, most recent cardiac catheterization done March 14, 2015 revealed extensive coronary artery disease, heavily calcified system, with 40 percent distal left main coronary artery stenosis. 3 stents in LAD proximally with 50-60 percent in-stent restenosis. Distal LAD had 95 percent stenosis followed by 80 percent stenosis long segment, very small artery not amendable to intervention. Total occlusion of the first obtuse marginal branch filled by collaterals. Patent stent in the proximal mid second OM branch with moderate disease in the distal proper circumflex artery. Patent stent in the RCA with 50 percent proximal right coronary artery stenosis and 50-60 distal right coronary artery stenosis. Asymptomatic, continue to monitor Stress test in July 2016 showed fixed defect involving the whole inferior wall and inferoapical segment with dilated left ventricle, inferior wall hypokinesia, Ejection fraction 54 percent. Echocardiogram showed ejection fraction 60 percent, dilated left atrium, mild to moderate mitral regurgitation and pulmonary artery pressure of 35 mmHg. continue to monitor Hypertension, maintained on Toprol 100, Norvasc 10 and Quinapril 40, Chronic renal insufficiency, continue to monitor renal function Hyperlipidemia, statin discontinued secondary to increased weakness. Continue to monitor lipids as outpatient. History of CVA in 2010, mild residual right sided weakness, episodes of confusion occurred over the last year where patient became confused and drove over once to [place] and once to [place]. It was felt that it was a global ischemic attack with confusion, workup at that time was negative. He was seen by Dr. Jiménez and started on Dilantin, the dose was increased by Dr. Damon, followed and managed by primary care physician Diabetes mellitus, managed by primary care physician. Carotid stenosis, Seen and followed by Dr Simmons, continue to monitor Ex-Tobaccoism, patient smokes pipe, he stopped smoking in October, encouraged to continue with smoking cessation Peripheral neuropathy, maintained on gabapentin. Continue on current medication , continue to monitor Sleep apnea, severe on sleep study in October 2015, does not use his machine. Thank you for your consultation. Please call me if you have any questions. Fatimah San MD, FACP, FACC, FSCAI, FHRS, CCDS Interventional Cardiology Cardiac Electrophysiology Vascular Medicine and Endovascular Interventions Gisela SAN MD Sep 25, 2018 19:15
[2018-09-25 20:25] VITALS: BP 158/66
[2018-09-25] MEDS: PHENYTOIN 100 MG (DILANTIN) CAP PO SCH (20:30)
[2018-09-25] MEDS: meTOprolol SUCCINATE 100 MG (TOPROL XL) TAB PO SCH (20:35)
[2018-09-25] MEDS: inSUlin DETERMIR 1 UNIT/0.01 ML (LEVEMIR) CHARGE PER UNIT SQ SCH (21:10)
[2018-09-26 06:00] VITALS: BP 160/83
[2018-09-26] MEDS: inSUlin ASPART (NovoLOG) 1 UNIT/0.01 ML (CHARGE PER UNIT) SC SCH ×4 (06:00→21:32)
[2018-09-26] MEDS: OMEGA 3 (FISH OIL) 1000 MG CAP PO SCH ×2 (06:32→18:23)
[2018-09-26] MEDS: MULTIVIT W/MINERALS TAB (THERAGRAN M) PO SCH (06:32)
[2018-09-26] MEDS: glipiZIDE 5 MG (GLUCOTROL) TAB PO SCH (06:32)
[2018-09-26] MEDS: APIXABAN 5 MG (ELIQUIS) TABLET PO SCH ×2 (08:36→21:32)
[2018-09-26] MEDS: SINEMET 25/100 (CARBIDOPA/LEVODOPA) TAB PO SCH ×3 (08:36→21:31)
[2018-09-26] MEDS: GABAPENTIN 300 MG (NEURONTIN) CAP PO SCH ×2 (08:36→21:32)
[2018-09-26] MEDS: amLODIPine 10 MG (NORVASC) TAB PO SCH (08:36)
[2018-09-26] MEDS: DOCUSATE SODIUM 100 MG (COLACE) CAP PO SCH ×2 (08:36→21:32)
[2018-09-26] MEDS: AMIODARONE 200 MG (CORDARONE) TAB PO SCH (08:36)
[2018-09-26] MEDS: QUINAPRIL 40 MG PO SCH (08:37)
[2018-09-26] MEDS: DAKIN'S 1/4 STRENGTH (0.125%) 473 ML BTL TOP SCH ×2 (08:38→21:33)
[2018-09-26] MEDS: TAMSULOSIN 0.4 MG (FLOMAX) CAP PO SCH (18:23)
[2018-09-26 18:38] VITALS: BP 144/16
[2018-09-26] MEDS: inSUlin DETERMIR 1 UNIT/0.01 ML (LEVEMIR) CHARGE PER UNIT SQ SCH (21:32)
[2018-09-26] MEDS: PHENYTOIN 100 MG (DILANTIN) CAP PO SCH (21:32)
[2018-09-26] MEDS: meTOprolol SUCCINATE 100 MG (TOPROL XL) TAB PO SCH (21:32)
[2018-09-27 05:35] VITALS: BP 153/61
[2018-09-27] MEDS: MULTIVIT W/MINERALS TAB (THERAGRAN M) PO SCH (06:06)
[2018-09-27] MEDS: glipiZIDE 5 MG (GLUCOTROL) TAB PO SCH (06:06)
[2018-09-27] MEDS: OMEGA 3 (FISH OIL) 1000 MG CAP PO SCH ×2 (06:06→17:02)
[2018-09-27] MEDS: inSUlin ASPART (NovoLOG) 1 UNIT/0.01 ML (CHARGE PER UNIT) SC SCH ×3 (06:06→17:02)
--- NOTE | 2018-09-27 07:42 | Progress Note (SOAP) ---
Subjective Time Seen by a Provider: 07:40 Subjective/Events-last exam Patient be discharged today. Patient eating good. Patient awake. Patient had a home visit this weekend Objective Exam Vital Signs Date Time Temp Pulse Resp B/P (MAP) Pulse Ox O2 Delivery O2 Flow Rate FiO2 09/27/18 05:35 96.9 62 20 153/61 (91) 95 Room Air 09/26/18 20:10 Room Air 09/26/18 18:38 97.4 61 20 144/16 (58) 96 Room Air 09/26/18 09:00 Room Air I & O 09/27/18 07:00 Intake Total 900 ml Balance 900 ml Capillary Refill : Less Than 3 Seconds General Appearance: No Apparent Distress, WD/WN HEENT: Normal ENT Inspection Neck: Normal Inspection, Non Tender Respiratory: Lungs Clear, No Accessory Muscle Use, No Respiratory Distress Cardiovascular: Regular Rate, Rhythm, No Murmur Gastrointestinal: non tender, soft Results Lab Laboratory Tests 09/26/18 11:10: Glucometer 126H 09/26/18 20:39: Glucometer 461*H 09/27/18 05:53: Glucometer 231H Assessment/Plan Assessment/Plan Assess & Plan/Chief Complaint Debility. Parkinson disease. Dementia. Mental status change improving. Diabetes. Increased the dose of Sinemet. . 09/10/18. Debility better. Parkinson disease. Dementia. Mental status change improved. Diabetes sugars still little bit high. Cogwheel motion of right arm much less. . 09/13/18. Debility better. Parkinson disease. Dementia. Diabetes patient hypoglycemic this morning. Patient still has Patel catheter in. . 09/14/18. Debility. Patel catheter removed. Straight catheter once. Dementia. Diabetes. Patient improving. . 09/15/18. Debility. Dementia. Diabetes. Patient walking better. Patient standing up straight. Patient still has cogwheel motion of the right upper arm. Patient talking better. Patient improving. . 09/16/18. Debility better. Dementia improving. Diabetes. Patient still having Trouble with his urination. Parkinson disease. . 09/17/18. Debility better. Patient has breakdown in the lower back. Diabetes. Dementia. Parkinson disease. Patient resting comfortably today. . Debility. Diabetes. Dementia. Parkinson disease. Patient eating good. . 09/21/18. Debility. Diabetes. Dementia. Parkinson disease. Patient resting comfortably. . 09/22/18. Debility improving. Diabetes. Dementia. Parkinson disease improving. Patient getting up better. patient still has breakdown. . 09/23/18. Debility improving. Diabetes. Dementia. Parkinson disease. Patient getting around better but has to be told what to do. . 09/24/18. Debility better. Diabetes better. Dementia. Parkinson disease. Patient eating good. . 09/27/18. Debility. Diabetes. Dementia. Parkinson disease. Ulcer on gluteus region. Patient to be discharged today Clinical Quality Measures DVT/VTE Risk/Contraindication: Risk Factor Score Per Nursin RFS Level Per Nursing on Admit: 4+=Very High DENIZ KENT DO Sep 27, 2018 07:42
--- NOTE | 2018-09-27 08:23 | Cardiology Progress Note ---
Subjective Date Seen by Provider: Sep 27, 2018 Time Seen by Provider: 08:21 Subjective/Events-last exam Patient eating breakfast, no new complaints. Denies any chest pain or dyspnea. Review of Systems General: No Night Sweats, No Fatigue, No Malaise HEENT: No Visual Changes, No Dysphasia Pulmonary: No Dyspnea, No Cough Cardiovascular: No: Chest Pain, Palpitations, Paroxysmal Noc. Dyspnea, Edema Gastrointestinal: No: Nausea, Vomiting, Abdominal Pain, Constipation Genitourinary: No Dysuria, No Frequency Musculoskeletal: No: neck pain, back pain Neurological: Weakness, Confusion; No: Numbness Objective-Cardiology Exam Last Set of Vital Signs Vital Signs 09/27/18 05:35 Temp 96.9 Pulse 62 Resp 20 B/P (MAP) 153/61 (91) Pulse Ox 95 O2 Delivery Room Air Capillary Refill : Less Than 3 Seconds I&O Intake and Output 09/27/18 00:00 Intake Total 850 ml Balance 850 ml Intake Oral 850 ml Bladder Scan Volume Amount 217 ml # Voids 6 # Urine Diapers 2 General: Alert, Cooperative, No Acute Distress HEENT: Atraumatic, PERRLA, EOMI, Mucous Memb Moist/[place] Neck: Supple, No JVD Lungs: Clear to Auscultation Heart: Regular Rate, Normal S1, Normal S2 Abdomen: Normal Bowel Sounds, Soft, No Tenderness Extremities: No Cyanosis, No Edema Skin: No Rashes Neuro: Normal Speech, Other (Impaired strength Left leg Impaired balance Mild dementia with memory loss) A/P-Cardiology Admission Diagnosis Generalized weakness PAF CAD HTN Assessment/Plan Generalized weakness, receiving physical therapy and improving, continue to monitor Status post change in mental status, had previous hospitalization and evaluation in the ER for change in mental status in the past, workup at that time was negative. Appears back to baseline. Continue with physical therapy Parkinson, started on Sinemet, followed by primary care team Sick sinus syndrome, history of episodes of bradycardia with complete heart block, frequent PVCs, ventricular bigeminy and ventricular couplets, short PAT' s. Status post permanent pacemaker implantation April 2015, using a [employer] device Advisa DR GONZALEZ, good sensing and capture. Continue to monitor History of nonsustained ventricular tachycardia, noted on interrogation on July 02, 2016, has been maintained on amiodarone 200 mg daily. Continue to monitor Paroxysmal atrial fibrillation, maintained on Eliquis. Continue to monitor [id number] score of 6, high risk, yearly risk of stroke without OAC is 9.8%. Maintained on Eliquis, continue to monitor Coronary artery disease, multiple interventions in the past, most recent cardiac catheterization done March 14, 2015 revealed extensive coronary artery disease, heavily calcified system, with 40 percent distal left main coronary artery stenosis. 3 stents in LAD proximally with 50-60 percent in-stent restenosis. Distal LAD had 95 percent stenosis followed by 80 percent stenosis long segment, very small artery not amendable to intervention. Total occlusion of the first obtuse marginal branch filled by collaterals. Patent stent in the proximal mid second OM branch with moderate disease in the distal proper circumflex artery. Patent stent in the RCA with 50 percent proximal right coronary artery stenosis and 50-60 distal right coronary artery stenosis. Asymptomatic, continue to monitor Stress test in July 2016 showed fixed defect involving the whole inferior wall and inferoapical segment with dilated left ventricle, inferior wall hypokinesia, Ejection fraction 54 percent. Echocardiogram showed ejection fraction 60 percent, dilated left atrium, mild to moderate mitral regurgitation and pulmonary artery pressure of 35 mmHg. continue to monitor Hypertension, maintained on Toprol 100, Norvasc 10 and Quinapril 40, mildly elevated blood pressure, I am hesitant to increase his blood pressure medications due to to the fact that he might have orthostatic hypotension or syncope. He is currently asymptomatic. Continue on current medication monitor Chronic renal insufficiency, continue to monitor renal function Hyperlipidemia, statin discontinued secondary to increased weakness. Continue to monitor lipids as outpatient. History of CVA in 2010, mild residual right sided weakness, episodes of confusion occurred over the last year where patient became confused and drove over once to [place] and once to [place]. It was felt that it was a global ischemic attack with confusion, workup at that time was negative. He was seen by Dr. Jiménez and started on Dilantin, the dose was increased by Dr. Damon, followed and managed by primary care physician Diabetes mellitus, managed by primary care physician. Carotid stenosis, Seen and followed by Dr Simmons, continue to monitor Ex-Tobaccoism, patient smokes pipe, he stopped smoking in October, encouraged to continue with smoking cessation Peripheral neuropathy, maintained on gabapentin. Continue on current medication , continue to monitor Sleep apnea, severe on sleep study in October 2015, does not use his machine. Clinical Quality Measures DVT/VTE Risk/Contraindication: Risk Factor Score Per Nursin RFS Level Per Nursing on Admit: 4+=Very High JOSELUIS CLINTON Sep 27, 2018 08:23
[2018-09-27] MEDS: APIXABAN 5 MG (ELIQUIS) TABLET PO SCH (08:46)
[2018-09-27] MEDS: DOCUSATE SODIUM 100 MG (COLACE) CAP PO SCH (08:46)
[2018-09-27] MEDS: amLODIPine 10 MG (NORVASC) TAB PO SCH (08:46)
[2018-09-27] MEDS: SINEMET 25/100 (CARBIDOPA/LEVODOPA) TAB PO SCH ×2 (08:46→12:05)
[2018-09-27] MEDS: GABAPENTIN 300 MG (NEURONTIN) CAP PO SCH (08:46)
[2018-09-27] MEDS: AMIODARONE 200 MG (CORDARONE) TAB PO SCH (08:46)
[2018-09-27] MEDS: QUINAPRIL 40 MG PO SCH (08:48)
--- NOTE | 2018-09-27 09:22 | Cardiology Progress Note ---
Subjective Date Seen by Provider: Sep 27, 2018 Time Seen by Provider: 09:20 Subjective/Events-last exam Patient is sitting in a chair, confused, no chest pain or shortness of breath Review of Systems General: No Chills, No Night Sweats, No Fatigue, No Malaise, No Appetite, No Other HEENT: No Head Aches, No Visual Changes, No Eye Pain, No Ear Pain, No Dysphasia , No Sinus Congestion, No Post Nasal Drip, No Sore Throat, No Other Pulmonary: Dyspnea; No Cough, No Pleuritic Chest Pain, No Other Cardiovascular: No: Chest Pain, Palpitations, Orthopnea, Paroxysmal Noc. Dyspnea, Edema, Lt Headedness, Other Objective-Cardiology Exam Last Set of Vital Signs Vital Signs 09/27/18 05:35 Temp 96.9 Pulse 62 Resp 20 B/P (MAP) 153/61 (91) Pulse Ox 95 O2 Delivery Room Air Capillary Refill : Less Than 3 Seconds I&O Intake and Output 09/27/18 00:00 Intake Total 850 ml Balance 850 ml Intake Oral 850 ml Bladder Scan Volume Amount 217 ml # Voids 6 # Urine Diapers 2 General: Alert, Cooperative, No Acute Distress HEENT: Atraumatic, PERRLA, EOMI, Mucous Memb Moist/[place] Neck: Supple, No JVD Lungs: Clear to Auscultation Heart: Regular Rate, Normal S1, Normal S2 Abdomen: Normal Bowel Sounds, Soft, No Tenderness Extremities: No Cyanosis, No Edema Skin: No Rashes Neuro: Normal Speech, Other (Impaired strength Left leg Impaired balance Mild dementia with memory loss) Results Lab Laboratory Tests Test 09/26/18 11:10 09/26/18 20:39 09/27/18 05:53 Range/Units Glucometer 126 H 461 *H 231 H 70-110 MG/DL A/P-Cardiology Admission Diagnosis Generalized weakness PAF CAD HTN Assessment/Plan Generalized weakness, receiving physical therapy and improving, continue to monitor Status post change in mental status, had previous hospitalization and evaluation in the ER for change in mental status in the past, workup at that time was negative. Appears back to baseline. Continue with physical therapy Parkinson, started on Sinemet, followed by primary care team Sick sinus syndrome, history of episodes of bradycardia with complete heart block, frequent PVCs, ventricular bigeminy and ventricular couplets, short PAT' s. Status post permanent pacemaker implantation April 2015, using a [employer] Touch device Advisa DR GONZALEZ, good sensing and capture. Continue to monitor History of nonsustained ventricular tachycardia, noted on interrogation on July 02, 2016, has been maintained on amiodarone 200 mg daily. Continue to monitor Paroxysmal atrial fibrillation, maintained on Eliquis. Continue to monitor [id number] score of 6, high risk, yearly risk of stroke without OAC is 9.8%. Maintained on Eliquis, continue to monitor Coronary artery disease, multiple interventions in the past, most recent cardiac catheterization done March 14, 2015 revealed extensive coronary artery disease, heavily calcified system, with 40 percent distal left main coronary artery stenosis. 3 stents in LAD proximally with 50-60 percent in-stent restenosis. Distal LAD had 95 percent stenosis followed by 80 percent stenosis long segment, very small artery not amendable to intervention. Total occlusion of the first obtuse marginal branch filled by collaterals. Patent stent in the proximal mid second OM branch with moderate disease in the distal proper circumflex artery. Patent stent in the RCA with 50 percent proximal right coronary artery stenosis and 50-60 distal right coronary artery stenosis. Asymptomatic, continue to monitor Stress test in July 2016 showed fixed defect involving the whole inferior wall and inferoapical segment with dilated left ventricle, inferior wall hypokinesia, Ejection fraction 54 percent. Echocardiogram showed ejection fraction 60 percent, dilated left atrium, mild to moderate mitral regurgitation and pulmonary artery pressure of 35 mmHg. continue to monitor Hypertension, maintained on Toprol 100, Norvasc 10 and Quinapril 40, mildly elevated blood pressure, I am hesitant to increase his blood pressure medications due to to the fact that he might have orthostatic hypotension or syncope. He is currently asymptomatic. Continue on current medication monitor Chronic renal insufficiency, continue to monitor renal function Hyperlipidemia, statin discontinued secondary to increased weakness. Continue to monitor lipids as outpatient. History of CVA in 2010, mild residual right sided weakness, episodes of confusion occurred over the last year where patient became confused and drove over once to [place] and once to [place]. It was felt that it was a global ischemic attack with confusion, workup at that time was negative. He was seen by Dr. Jiménez and started on Dilantin, the dose was increased by Dr. Damon, followed and managed by primary care physician Diabetes mellitus, Poorly controlled, managed by primary care physician. Carotid stenosis, Seen and followed by Dr Simmons, continue to monitor Ex-Tobaccoism, patient smokes pipe, he stopped smoking in October, encouraged to continue with smoking cessation Peripheral neuropathy, maintained on gabapentin. Continue on current medication , continue to monitor Sleep apnea, severe on sleep study in October 2015, does not use his machine. Clinical Quality Measures DVT/VTE Risk/Contraindication: Risk Factor Score Per Nursin RFS Level Per Nursing on Admit: 4+=Very High SEBASTIÁN VALLE MD Sep 27, 2018 9:21 am
--- NOTE | 2018-09-27 09:38 | Physical Therapy Daily Note ---
PT Daily Note-Current Subjective Agrees to PT. Acknowledges that he is going home today. Pain Numeric Pain Scale: 0-No Pain Location: No Pain Reported Mental Status Patient Orientation: Person Transfers Therapy Code Descriptions/Definitions Functional [place] Measure: 0=Not Assessed/NA 4=Minimal Assistance 1=Total Assistance 5=Supervision or Setup 2=Maximal Assistance 6=Modified [place] 3=Moderate Assistance 7=Complete [place] Therapy Quality Codes: 6 Independent with activity with or without an assistive device 5 Patient requires set up or clean up by helper. Patient completes activity by themselves 4 Supervision or touching assist (CGA). [place] provide cues , steadying assist 3 The helper provides less than half the effort to complete the activity 2 The helper provides more than half the effort to complete the activity 1 Dependent. The helper does all the effort to complete an activity 7 Patient refused to complete or attempt activity 9 The patient did not perform the activity before the current illness or injury 88 Not attempted due to Medical conditions or safety concerns Transfers (B, C, W/C) (FIM): 5 Roll Left to Right (QC): 5 Supine to/from Sit: 5 Sit to Lying (QC): 5 Sit to Stand (QC): 5 Chair/Qrk-lw-Iwdax Xfer(QC): 5 Car Transfer (QC): 5 SBA for all transfers for safety as well as intermittent cues to sequence and complete task. He does not need any physical assist just cues. Weight Bearing Right Lower Extremity: Right Full Weight Bearing Left Lower Extremity: Left Full Weight Bearing Gait Training Does the Patient Walk?: Yes Gait (FIM): 5 (SBA for safety and cues for direction and sequencing) Distance (FIM): 3=150 ft Distance: 200 ft x 2 Walk 10 feet (QC): 5 Walk 50 ft with 2 Turns(QC): 5 Walk 150 ft (QC): 5 Gait Assistive Device: FWW decreased step length and needs cues to keep going. Wheelchair Training Does the Pt Use a Wheelchair?: No Stair Training Stair Training: Handrails/: 2 handrails Stairs (FIM): 5 #of Steps: 12 1 Step (curb) (QC): 5 4 Steps (QC): 5 12 Steps (QC): 5 Stairs: Pattern: Step to Level of Assist: 5 (SBA for safety and intermittent cues) Balance Picking up an Object (QC): 3 Assessment Pt's functional mobility has improved and he does not require touching assist to complete tasks, but does require cues for safety and sequencing as well as safety. Needs redirection frequently and cues to stay on task. PT Short Term Goals Short Term Goals Time Frame: Sep 15, 2018 Transfers (B,C,W/C) (FIM): 4 (met) Gait (FIM): 1 (met) Gait Distance Comment: 20' Gait Level of Assist: 3 Gait Assistive Device: Walker Cristian Wheelchair Distance: 20' PT Penitentiary Goals Penitentiary Goals PT Turbine Mechanic Goals Time Frame: Sep 29, 2018 Transfers (B,C,W/C) (FIM): 4 (exceeded) Sit to Lying (QC): 4 (exceeded) Lying-Sitting on Side/Bed(QC): 4 (exceeded) Sit to Stand (QC): 4 (exceeded) Rollin Roll Left to Right (QC): 4 (exceeded) Chair/Yqx-gt-Fgbho Xfer(QC): 4 (exceeded) Car Transfer (QC): 4 (exceeded) Does the Patient Walk: Yes Gait (FIM): 2 (exceeded) Gait distance (FIM): 1=up to 49 ft Distance: 50' Walk 10 feet (QC): 3 Walk 10ft-Uneven Surface(QC): 3 (exceeded) Walk 50ft with 2 Turns (QC): 3 (exceeded) Walk 150 ft (QC): 0 (exceeded) Gait Level of Assist: 4 Gait Assistive Device: Walker Cristian Does the Pt use WC or Scooter?: Yes Wheelchair (FIM): 2 Wheelchair distance (FIM): 1=up to 49 ft Distance: 50 Wheelchair Level of Assist: 4 Wheel 50 feet with 2 turns (QC: 4 Stairs (FIM): 1 # of Steps: 1 1 Step (curb) (QC): 3 4 Steps (QC): 0 12 Steps (QC): 0 Stairs Level Of Assist: 4 Picking up an Object (QC): 0 Pt is at a SBA level for all functional mobility. PT Plan Problem List Problem List: Activity Tolerance, Functional Strength, Safety Treatment/Plan Treatment Plan: Discontinue PT (pt to discharge home today ) Treatment Plan: Bed Mobility, Concurrent Therapy, Education, Functional Activity Navya, Functional Strength, Group Therapy, Gait, Safety, Therapeutic Exercise, Transfers Treatment Duration: Sep 29, 2018 Frequency: At least 5 of 7 days/Wk (IRF) Estimated Hrs Per Day: 1.5 hours per day Patient and/or Family Agrees t: Yes Safety Risks/Education Patient Education: Safety Issues Teaching Recipient: Patient Teaching Methods: Discussion Response to Teaching: Reinforcement Needed Discharge Recommendations Therapy D/C Recommendations: Physical Therapy Home Care Time/GCodes Time In: 815 Time Out: 900 Total Billed Treatment Time: 45 Total Billed Treatment visit FA 45 SRINIVAS ANDERSON PT Sep 27, 2018 09:38
--- NOTE | 2018-09-27 09:44 | Therapy Team Discharge Summary ---
Therapy Discharge Summary Discharge Recommendations Date of Discharge 09/27/2018 Therapy D/C Recommendations: Physical Therapy Home Care Physical Therapy This patient was tranferred to ARU post acute hospital stay due to decline in function and AMS. Upon admit to ARU, he required mod assist with transfers and only walked about 5 ft with heavy assist and needed constant cues to complete tasks. Treatment has focused on functional mobility and strength to progress his safety and mobility in his home. He has made functional progress, although needs cues frequently for sequencing and safety and recommend SBA with all mobility. He is SBA with transfers, gait and stairs. Recommend he is supervised at home; recommend [facility] PT to follow. Pt has met goals set and is to discharge this date. Occupational Therapy Decreased Activ Tolerance, Decreased Safety Aware, Decreased UE Strength, Dependent Transfers, Impaired Cognition, Impaired Coordination, Impaired I ADL's , Impaired Self-Care Skills PT Content Editor Goals Senior Care Goals PT Senior Care Goals Time Frame: Sep 29, 2018 Transfers (B,C,W/C) (FIM): 4 (exceeded) Roll Left to Right (QC): 4 (exceeded) Sit to Lying (QC): 4 (exceeded) Lying-Sitting on Side/Bed(QC): 4 (exceeded) Sit to Stand (QC): 4 (exceeded) Chair/Yii-pz-Olivt Xfer(QC): 4 (exceeded) Car Transfer (QC): 4 (exceeded) Does the Patient Walk: Yes Gait (FIM): 2 (exceeded) Gait distance (FIM): 1=up to 49 ft Distance: 50' Walk 10 feet (QC): 3 Walk 10ft-Uneven Surface(QC): 3 (exceeded) Walk 50ft with 2 Turns (QC): 3 (exceeded) Walk 150 ft (QC): 0 (exceeded) Gait Level of Assist: 4 Gait Assistive Device: Walker Cristian Does the Pt use WC or Scooter?: Yes Wheelchair (FIM): 2 Wheelchair distance (FIM): 1=up to 49 ft Distance: 50 Wheelchair Level of Assist: 4 Wheel 50 feet with 2 turns (QC: 4 Stairs (FIM): 1 # of Steps: 1 1 Step (curb) (QC): 3 4 Steps (QC): 0 12 Steps (QC): 0 Stairs Level Of Assist: 4 Picking up an Object (QC): 0 All goals met or exceeded. Pt is at a SBA level with mobility. OT Senior Care Goals Content Editor Goals Time Frame: Sep 29, 2018 Eating (FIM): 6 Eating (QC): 6 Oral Hygiene (QC): 5 Grooming(FIM): 5 Bathing(FIM): 5 Shower/Bathe Self (QC): 5 Upper Body Dressing(FIM): 6 Upper Body Dressing (QC): 6 Lower Body Dressing(FIM): 6 Lower Body Dressing (QC): 6 On/Off Footwear (QC): 6 Toileting(FIM): 6 Toileting Hygiene (QC): 6 Toilet/Commode Transfer(FIM): 6 Toilet/Commode Transfer (QC): 6 Shower Transfer(FIM): 5 Additional Goals: 1-Demonstrate ADL Tasks, 2-Verbalize Understanding, 3- ImproveStrength/[place] 1=Demonstrate adherence to instructed precautions during ADL tasks. 2=Patient will verbalize/demonstrate understanding of assistive devices/ modifications for ADL. 3=Patient will improve strength/tolerance for activity to enable patient to perform ADL's. Speech Senior Care Goals Content Editor Goals Patient will improve cognitive-communication tasks for improved safety and independence. SRINIVAS ANDERSON PT Sep 27, 2018 09:44
--- NOTE | 2018-09-27 14:10 | Occupational Ther Daily Note ---
OT Current Status-Daily Note Subjective Pt. smiles at OT when coming into room. Appearance Pt. in chair and reclined. Agrees to shower. Mental Status/Objective Patient Orientation: Confused Therapy Code Descriptions/Definitions Functional [place] Measure: 0=Not Assessed/NA 4=Minimal Assistance 1=Total Assistance 5=Supervision or Setup 2=Maximal Assistance 6=Modified [place] 3=Moderate Assistance 7=Complete [place] Attachments: IV ADL-Treatment Therapy Code Descriptions/Definitions Functional [place] Measure: 0=Not Assessed/NA 4=Minimal Assistance 1=Total Assistance 5=Supervision or Setup 2=Maximal Assistance 6=Modified [place] 3=Moderate Assistance 7=Complete [place] Therapy Quality Codes: 6 Independent with activity with or without an assistive device 5 Patient requires set up or clean up by helper. Patient completes activity by themselves 4 Supervision or touching assist (CGA). [place] provide cues , steadying assist 3 The helper provides less than half the effort to complete the activity 2 The helper provides more than half the effort to complete the activity 1 Dependent. The helper does all the effort to complete an activity 7 Patient refused to complete or attempt activity 9 The patient did not perform the activity before the current illness or injury 88 Not attempted due to Medical conditions or safety concerns Grooming (FIM): 2 (Max assist to comb hair. pt. is confused and will hold comb , but not put into hair.) Oral Hygiene (QC): 88 Bathing (FIM): 3 (Pt. requires max cues and increased time to complete bathing tasks. Pt. will hold washcloth, but forget what he is doing, or wash a part he has already washed. Perseverates on one spot. Pt. washes his face and chest. Does not process how to wash his arms, as pt. is asked to do this multiple times. OT does this for him, and assists with his legs and feet. Pt. is able to wash his front roderick area while seated. OT washes rear roderick area in stance.) Shower/Bathe Self (QC): 3 Upper Body (FIM): 2 (Pt. is able to put his arms into the armholes of his shirt when the shirt is presented to him, with arm holes open. Pt. is unable to conductor pullman his head or over his torso.) Upper Body Dressing (QC): 2 (Mod assist to don brief. Pt. puts one foot in but is unable to put the other one in. Unable to don pants or slipper socks. Pt. is able to doff slipper socks.) Lower Body Dressing (FIM): 3 (See FIM above.) Lower Body Dressing (QC): 3 On/Off Footwear (QC): 2 Toileting (FIM): 2 (Pt. sits on toilet in bathroom randomly as he is ambulating to shower. Pt. is asked if he needs to sit awhile. Pt. does not answer, but is having BM. Pt. perseverates with toilet paper that is handed to him, and does not know how to cleanse self. OT does this for him in stance.) Toileting Hygiene (QC): 2 Transfers (B, C, W/C) (FIM): 4 (Min assist in stance as pt. is confused and needs tactile as well as verbal cues.) Toilet/Commode Transfer (FIM): 4 Toilet Transfer (QC): 4 Shower Transfer(FIM): 4 Education OT Patient Education: Correct positioning, Modified ADL techniques, Progress toward Goal/Update tx plan, Purpose of tx/functional activities, Reviewed precautions, Rehab process, Transfer techniques Teaching Recipient: Patient Teaching Methods: Demonstration Response to Teaching: Unable to Comprehend OT Short Term Goals Short Term Goals Time Frame: Sep 15, 2018 Grooming(FIM): 5 Transfers (B,C,W/C) (FIM): 4 (met) Toilet/Commode Transfer(FIM): 4 1=Demonstrate adherence to instructed precautions during ADL tasks. 2=Patient will verbalize/demonstrate understanding of assistive devices/ modifications for ADL. 3=Patient will improve strength/tolerance for activity to enable patient to perform ADL's. OT Brine Mixer Operator Goals Nursing Home Goals Time Frame: Sep 29, 2018 Eating (FIM): 6 Eating (QC): 6 Groomin Oral Hygiene (QC): 5 Bathing(FIM): 5 Shower/Bathe Self (QC): 5 Upper Body Dressing(FIM): 6 Upper Body Dressing (QC): 6 Lower Body Dressing(FIM): 6 Lower Body Dressing (QC): 6 On/Off Footwear (QC): 6 Toileting(FIM): 6 Toileting Hygiene (QC): 6 Toilet/Commode Transfer(FIM): 6 Toilet/Commode Transfer (QC): 6 Shower Transfer(FIM): 5 Additional Goals: 1-Demonstrate ADL Tasks, 2-Verbalize Understanding, 3- ImproveStrength/[place] 1=Demonstrate adherence to instructed precautions during ADL tasks. 2=Patient will verbalize/demonstrate understanding of assistive devices/ modifications for ADL. 3=Patient will improve strength/tolerance for activity to enable patient to perform ADL's. OT Education/Plan Problem List/Assessment Assessment: Decreased Activ Tolerance, Decreased Safety Aware, Decreased UE Strength, Dependent Transfers, Impaired Cognition, Impaired I ADL's, Impaired Self-Care Skills Discharge Recommendations Plan/Recommendations: Discontinue OT Therapy D/C Recommendations: 24 hr Supervision Comment Due to pt's advancing mental state, he would benefit from 24 hour supervision. This has been verbalized to family via social work. Treatment Plan/Plan of Care Treatment,Training & Education: Yes Treatment Duration: Sep 29, 2018 Frequency: At least 5 of 7 days/Wk (IRF) Estimated Hrs Per Day: 1.5 hours per day (1.25 to 1.5) Agreement: Yes Rehab Potential: Fair Time/GCodes Start Time: 09:20 Stop Time: 09:45 Total Time Billed (hr/min): 25 Billed Treatment Time 1, ADL x 2 MILAD SIMON OT Sep 27, 2018 14:10
--- NOTE | 2018-09-27 14:19 | Therapy Team Discharge Summary ---
Therapy Discharge Summary Discharge Recommendations Date of Discharge 09-27-18 Therapy D/C Recommendations: 24 hr Supervision Occupational Therapy Pt. has been seen by occupational therapy to increase overall strength and independence. Pt. has made progress with physical abilities. However, due to poor cognition and inability to sequence, pt. requires much assistance for all daily ADL needs. No goals met as pt. is unable to retain new information or learn new skills. Pt. requires 24 hour supervision for safety. Pt. has difficulty sequencing tasks or initiating tasks. Pt. is discharging home today with family support and caregiver support at home. Decreased Activ Tolerance, Decreased Safety Aware, Decreased UE Strength, Dependent Transfers, Impaired Cognition, Impaired I ADL's, Impaired Self-Care Skills PT Manufacturing Management Associate Goals Chcf Goals PT Manufacturing Management Associate Goals Time Frame: Sep 29, 2018 Transfers (B,C,W/C) (FIM): 4 (exceeded) Roll Left to Right (QC): 4 (exceeded) Sit to Lying (QC): 4 (exceeded) Lying-Sitting on Side/Bed(QC): 4 (exceeded) Sit to Stand (QC): 4 (exceeded) Chair/Dmy-rl-Cbpri Xfer(QC): 4 (exceeded) Car Transfer (QC): 4 (exceeded) Does the Patient Walk: Yes Gait (FIM): 2 (exceeded) Gait distance (FIM): 1=up to 49 ft Distance: 50' Walk 10 feet (QC): 3 Walk 10ft-Uneven Surface(QC): 3 (exceeded) Walk 50ft with 2 Turns (QC): 3 (exceeded) Walk 150 ft (QC): 0 (exceeded) Gait Level of Assist: 4 Gait Assistive Device: Walker Cristian Does the Pt use WC or Scooter?: Yes Wheelchair (FIM): 2 Wheelchair distance (FIM): 1=up to 49 ft Distance: 50 Wheelchair Level of Assist: 4 Wheel 50 feet with 2 turns (QC: 4 Stairs (FIM): 1 # of Steps: 1 1 Step (curb) (QC): 3 4 Steps (QC): 0 12 Steps (QC): 0 Stairs Level Of Assist: 4 Picking up an Object (QC): 0 OT Chcf Goals Manufacturing Management Associate Goals Time Frame: Sep 29, 2018 Eating (FIM): 6 (not met) Eating (QC): 6 (not met) Oral Hygiene (QC): 5 (not met) Grooming(FIM): 5 (not met) Bathing(FIM): 5 (not met) Shower/Bathe Self (QC): 5 (not met) Upper Body Dressing(FIM): 6 (not met) Upper Body Dressing (QC): 6 (not met) Lower Body Dressing(FIM): 6 (not met) Lower Body Dressing (QC): 6 (not met) On/Off Footwear (QC): 6 (not met) Toileting(FIM): 6 (not met) Toileting Hygiene (QC): 6 (not met) Toilet/Commode Transfer(FIM): 6 (not met) Toilet/Commode Transfer (QC): 6 (not met) Shower Transfer(FIM): 5 (not met) Additional Goals: 1-Demonstrate ADL Tasks, 2-Verbalize Understanding, 3- ImproveStrength/Navya 1=Demonstrate adherence to instructed precautions during ADL tasks. 2=Patient will verbalize/demonstrate understanding of assistive devices/ modifications for ADL. 3=Patient will improve strength/tolerance for activity to enable patient to perform ADL's. Speech Manufacturing Management Associate Goals Chcf Goals Patient will improve cognitive-communication tasks for improved safety and independence. MILAD SIMON OT Sep 27, 2018 14:18
--- NOTE | 2018-09-27 15:17 | Speech Therapy Daily Note ---
Speech Daily Progress Note Subjective Date Seen by Provider: Sep 27, 2018 Time Seen by Provider: 00:15 Patient was awake and able to participate with decreased cuing. Objective Patient completed simple memory tasks at 70% with moderate verbal cues. Treatment Plan Continue Plan of Care Communication Comprehension: 5 Expression: 4 Social Cognition Social Interaction: 5 Problem Solvin Memory: 4 Speech Short Term Goals Short Term Goals Short Term Goals 1) Patient will complete simple memory tasks at 75% with minimal cues. 2) Patient will complete simple problem solving tasks at 75% with minimal cues. 3) Patient will complete simple 1 step directions with 75% with minimal cues. Speech Residential Goals Team Member Goals Patient will improve cognitive-communication tasks for improved safety and independence. Speech-Plan Patient/Family Goals Patient/Family Goals: Patient plans to return home with his spouse on 09/28/2018. Treatment Plan Speech Therapy Treatment Plan: Discontinue ST, Goals Met Patient is returning home with his tomorrow, 09/28/2018. Treatment Duration: Sep 28, 2018 Frequency: 5 times per week Estimated Hrs Per Day: .5 hour per day Rehab Potential: Fair Barriers to Learning: Patient is lethargic much of the time and has memory deficit. Pt/Family Agrees to Plan: Yes Safety Risks/Education Teaching Recipient: Patient Teaching Methods: Discussion Response to Teaching: Verbalize Understanding Education Topics Provided: Safety within his immediate environment. Time Speech Therapy Time In: 12:45 Speech Therapy Time Out: 13:00 Total Billed Time: 15 Billed Treatment Time [address] Sep 27, 2018 15:17
[2018-09-27 15:42] VITALS: BP 149/71
[2018-09-27] MEDS: TAMSULOSIN 0.4 MG (FLOMAX) CAP PO SCH (17:02)
--- NOTE | 2018-09-27 18:33 | PM & R (SOAP) Progress Note ---
Subjective This was a face to face visit with the patient. Date Seen by Provider: Sep 27, 2018 Time Seen by Provider: 18:15 Subjective/Events-last exam Patient was seen in his room this evening Spouse in to take patient home with her and C Date Identified: Sep 27, 2018 Time Identified: 18:25 Medication Intervention: Discharge meds reviewed Objective Physician Exam Last Set of Vital Signs Vital Signs Date Time Temp Pulse Resp B/P (MAP) Pulse Ox O2 Delivery O2 Flow Rate FiO2 09/27/18 15:42 96.2 59 14 149/71 (97) 95 Room Air Capillary Refill : Less Than 3 Seconds I&O Intake and Output 09/27/18 00:00 Intake Total 850 ml Balance 850 ml Intake Oral 850 ml Bladder Scan Volume Amount 217 ml # Voids 6 # Urine Diapers 2 General: Alert, Cooperative, No Acute Distress HEENT: Atraumatic, PERRLA, EOMI, Mucous Memb Moist/Iatan Neck: Supple, No JVD Lungs: Clear to Auscultation Heart: Regular Rate, Normal S1, Normal S2 Abdomen: Normal Bowel Sounds, Soft, No Tenderness Extremities: No Cyanosis, No Edema Skin: No Rashes Neuro: Normal Speech, Other (Impaired strength Left leg Impaired balance Mild dementia with memory loss) Results Lab Data Laboratory Tests 09/24/18 21:00: Glucometer 210H 09/25/18 06:17: Glucometer 116H 09/25/18 11:25: Glucometer 143H 09/25/18 16:02: Glucometer 226H 09/25/18 20:53: Glucometer 215H 09/26/18 05:25: Glucometer 66L 09/26/18 06:21: Glucometer 94 09/26/18 11:10: Glucometer 126H 09/26/18 20:39: Glucometer 461*H 09/27/18 05:53: Glucometer 231H 09/27/18 11:49: Glucometer 252H 09/27/18 15:40: Glucometer 211H Assessment/Plan Assessment and Plan Discharge to home with spouse and C F/U with DR Damon See orders Co-Morbidities that are continuing to impact the rehab process: (include details ) YOVANY DANIELS MD Sep 27, 2018 18:33
--- NOTE | 2018-09-28 08:14 | Therapy Team Discharge Summary ---
Therapy Discharge Summary Discharge Recommendations Date of Discharge Sep 27, 2018 at 18:58 Therapy D/C Recommendations: 24 hr Supervision Occupational Therapy Decreased Activ Tolerance, Decreased Safety Aware, Decreased UE Strength, Dependent Transfers, Impaired Cognition, Impaired I ADL's, Impaired Self-Care Skills Speech-Language Pathology Patient was initially admitted to ARU for weakness and Parkinson's like symptoms. Patient was compliant with all therapy, however he had significant difficulty with initiating and participation due to extreme lethargic state. Patient was seen for skilled ST with focus on memory and problem solving to improve safety awareness and independence. Patient made mild gains through the course of therapy. Patient was discharged to home with his and other family support. PT Alf Goals Receiver Bulk System Goals PT Receiver Bulk System Goals Time Frame: Sep 27, 2018 Transfers (B,C,W/C) (FIM): 4 (exceeded) Roll Left to Right (QC): 4 (exceeded) Sit to Lying (QC): 4 (exceeded) Lying-Sitting on Side/Bed(QC): 4 (exceeded) Sit to Stand (QC): 4 (exceeded) Chair/Lmn-qu-Grelm Xfer(QC): 4 (exceeded) Car Transfer (QC): 4 (exceeded) Does the Patient Walk: Yes Gait (FIM): 2 (exceeded) Gait distance (FIM): 1=up to 49 ft Distance: 50' Walk 10 feet (QC): 3 Walk 10ft-Uneven Surface(QC): 3 (exceeded) Walk 50ft with 2 Turns (QC): 3 (exceeded) Walk 150 ft (QC): 0 (exceeded) Gait Level of Assist: 4 Gait Assistive Device: Walker Cristian Does the Pt use WC or Scooter?: Yes Wheelchair (FIM): 2 Wheelchair distance (FIM): 1=up to 49 ft Distance: 50 Wheelchair Level of Assist: 4 Wheel 50 feet with 2 turns (QC: 4 Stairs (FIM): 1 # of Steps: 1 1 Step (curb) (QC): 3 4 Steps (QC): 0 12 Steps (QC): 0 Stairs Level Of Assist: 4 Picking up an Object (QC): 0 OT Alf Goals Receiver Bulk System Goals Time Frame: Sep 29, 2018 Eating (FIM): 6 (not met) Eating (QC): 6 (not met) Oral Hygiene (QC): 5 (not met) Grooming(FIM): 5 (not met) Bathing(FIM): 5 (not met) Shower/Bathe Self (QC): 5 (not met) Upper Body Dressing(FIM): 6 (not met) Upper Body Dressing (QC): 6 (not met) Lower Body Dressing(FIM): 6 (not met) Lower Body Dressing (QC): 6 (not met) On/Off Footwear (QC): 6 (not met) Toileting(FIM): 6 (not met) Toileting Hygiene (QC): 6 (not met) Toilet/Commode Transfer(FIM): 6 (not met) Toilet/Commode Transfer (QC): 6 (not met) Shower Transfer(FIM): 5 (not met) Additional Goals: 1-Demonstrate ADL Tasks, 2-Verbalize Understanding, 3- ImproveStrength/Navya 1=Demonstrate adherence to instructed precautions during ADL tasks. 2=Patient will verbalize/demonstrate understanding of assistive devices/ modifications for ADL. 3=Patient will improve strength/tolerance for activity to enable patient to perform ADL's. Speech Alf Goals Alf Goals Patient will improve cognitive-communication tasks for improved safety and independence. Goal met at 80%. PATRICK HAWTHORNE Sep 28, 2018 08:14
== END 2018-09-27 18:58 | disposition home health service (06) | DRG 57 ==
PROVIDERS: ADMIT Physical Medicine & Rehabilitation; ATTEND Physical Medicine & Rehabilitation
DX: G20 Parkinson's disease (principal); F03.90 Unspecified dementia, unspecified severity, without behavioral disturbance, psychotic disturbance, mood disturbance, and anxiety; I69.353 Hemiplegia and hemiparesis following cerebral infarction affecting right non-dominant side; T82.855A Stenosis of coronary artery stent, initial encounter; L89.312 Pressure ulcer of right buttock, stage 2; R32 Unspecified urinary incontinence; R33.9 Retention of urine, unspecified; E11.649 Type 2 diabetes mellitus with hypoglycemia without coma; E11.65 Type 2 diabetes mellitus with hyperglycemia; E11.42 Type 2 diabetes mellitus with diabetic polyneuropathy; I48.0 Paroxysmal atrial fibrillation; I12.9 Hypertensive chronic kidney disease with stage 1 through stage 4 chronic kidney disease, or unspecified chronic kidney disease; I25.10 Atherosclerotic heart disease of native coronary artery without angina pectoris; E75.6 Lipid storage disorder, unspecified; G47.30 Sleep apnea, unspecified; K59.00 Constipation, unspecified; I34.0 Nonrheumatic mitral (valve) insufficiency; M47.812 Spondylosis without myelopathy or radiculopathy, cervical region; Z79.4 Long term (current) use of insulin; Z87.891 Personal history of nicotine dependence; Z95.0 Presence of cardiac pacemaker
CPT/HCPCS: 36415; 80048; 80053; 82962; 85025; 85027; 90471

== ENCOUNTER → 2019-03-10 | Outpatient (CLI) | payer MEDICARE ==
[~2019-03-10] MED LIST changes: -AMLO10TA6 PO; +AMLO10TA7 PO; +CARB1TAB17 PO; +CARB1TAB19 PO; +INSU100V5 SQ; +OMG1KC PO; +SODI473S7 TOP; +TAMS0.4C98 PO
[2019-03-10 07:55] LABS: BILIRUBIN,URINE NEGATIVE (NEGATIVE); CLARITY,URINE CLEAR; COLOR,URINE YELLOW; GLUCOSE, URINE (UA) 3+ (NEGATIVE); KETONES,URINE NEGATIVE (NEGATIVE); LEUKOCYTE ESTERASE ,URINE 3+ (NEGATIVE); NITRITE,URINE NEGATIVE (NEGATIVE); PH,URINE 6 (5-9); PROTEIN,URINE 3+ (NEGATIVE); UROBILINOGEN,URINE NORMAL (NORMAL)
[2019-03-10 08:03] LABS: WBC,URINE 50-100 /HPF
[2019-03-10 08:04] LABS: BACTERIA,URINE TRACE /HPF
== END ==
LOC: LAB 07:39
PROVIDERS: ATTEND Family Medicine
DX: N39.0 Urinary tract infection, site not specified (principal)
CPT/HCPCS: 81000; 87088

== ENCOUNTER → 2019-08-15 | Outpatient (CLI) | payer MEDICARE ==
[~2019-08-15] MED LIST changes: +ACET-93 PO; +ASPI-983 PO; +BISA-65 PO; +CARB1TAB41 PO; +CLOP75TA28 PO; +METO-370 PO; +MULT1TAB69 PO; +OMEG-160 PO; +PANT40SU PO; +RIVA20TA2 PO
== END ==
LOC: CARD 13:27
PROVIDERS: ATTEND Internal Medicine Cardiovascular Disease
DX: I08.1 Rheumatic disorders of both mitral and tricuspid valves (principal); I25.10 Atherosclerotic heart disease of native coronary artery without angina pectoris; E11.9 Type 2 diabetes mellitus without complications
CPT/HCPCS: 93306

== ENCOUNTER 2019-08-17 06:46 | Day surgery (SDC) | payer MEDICARE ==
[2019-08-17] VITALS (13 sets, daily range): BP systolic 122–172; BP diastolic 64–91
[~2019-08-17] VITALS: Ht 183 cm; Wt 77.0 kg
[~2019-08-17 06:46] MED LIST changes: -ACET-93 PO; -ASPI-983 PO; -BISA-65 PO; -CARB1TAB41 PO; -CLOP75TA28 PO; -METO-370 PO; -MULT1TAB69 PO; -OMEG-160 PO; -PANT40SU PO; -RIVA20TA2 PO
[2019-08-17] MEDS ORDERED: NS IV 1000 ML 1,000 ML ONE (06:49)
[2019-08-17] MEDS ORDERED: LIDOCAINE 1% INJ 20 ML 20 ML VIAL ONE (06:49)
[2019-08-17] MEDS ORDERED: HEParin (CATH LAB) 2,000 ML IV ONE (06:49)
[2019-08-17] MEDS ORDERED: NS IV 1000 ML 1,000 ML IV SCH (07:00)
[2019-08-17 07:18] LABS: HEMOGLOBIN 13.4 G/DL (13.3-17.7); MEAN PLATELET VOLUME 11.3 FL (7.4-10.4); RED CELL DISTRIBUTION WIDTH 13.2 % (10.0-14.5); WHITE BLOOD COUNT 6.6 10^3/uL (4.3-11.0)
[2019-08-17 07:29] LABS: INR 1.1 (0.8-1.4); PROTHROMBIN TIME PATIENT 15.1 SEC (12.2-14.7)
[2019-08-17] MEDS ORDERED: MIDAZOLAM 5 MG/5 ML (VERSED) VIAL ONE (07:32)
[2019-08-17] MEDS ORDERED: fentaNYL INJECTION 100 MCG/2 ML AMP ONE (07:33)
[2019-08-17 07:38] LABS: ALANINE AMINOTRANSFERASE 8 U/L (0-55); ALBUMIN 3.2 GM/DL (3.2-4.5); ALKALINE PHOSPHATASE 130 U/L (40-136); BILIRUBIN,TOTAL 0.8 MG/DL (0.1-1.0); BUN/CREATININE RATIO 17; CALCIUM 9.4 MG/DL (8.5-10.1); CARBON DIOXIDE 28 MMOL/L (21-32); CHLORIDE 104 MMOL/L (98-107); CHOLESTEROL 115 MG/DL (< 200); GFR ESTIMATED > 60; GLUCOSE 133 MG/DL (70-105); HDL CHOLESTEROL 38 MG/DL (40-60); POTASSIUM 3.8 MMOL/L (3.6-5.0); SODIUM 140 MMOL/L (135-145); TRIGLYCERIDES 60 MG/DL (<150); VLDL CHOLESTEROL 12 MG/DL (5-40)
--- NOTE | 2019-08-17 07:42 | Diagnostic Imaging Report ---
INDICATION: Peripheral vascular disease. Comparison made with prior examination from 09/06/2018. FINDINGS: There is cardiomegaly. There is minimal scarring in the left mid lung. Pacemaker overlies the left hemithorax. There is no pleural effusion, pneumothorax or pneumonia. Mediastinum is unremarkable. IMPRESSION: Cardiomegaly and some minimal scarring in the left midlung. Dictated by: Dictated on workstation # [id number]
[2019-08-17] MEDS ORDERED: TAMS0.4C98 PO (07:44)
[2019-08-17] MEDS ORDERED: METO-370 PO (07:44)
[2019-08-17] MEDS ORDERED: OMEG-160 PO (07:44)
[2019-08-17] MEDS ORDERED: MULT1TAB69 PO (07:47)
[2019-08-17] MEDS ORDERED: INSU100V5 SQ (07:50)
[2019-08-17] MEDS ORDERED: CARB1TAB41 PO ×3 (07:54)
[2019-08-17] MEDS ORDERED: ACET-93 PO (07:57)
[2019-08-17] MEDS ORDERED: BISA-65 PO (07:57)
--- NOTE | 2019-08-17 08:46 | NUR ---
SPOKE WITH PT (AND HIS , SHE TAKES CARE OF HIS MEDICATIONS) WELL CALLING [facility] TO COMPLETE THE MED REC. PT'S WAS ABLE TO TELL ME HOW/WHEN HE TOOK HIS MEDS; SHE HAD A DETAILED LIST THAT SHE SAYS THEY FOLLOW. THE FOLLOWING ARE MAIL OUT DATES GIVEN TO ME BY [facility] ([facility]) MAIL ORDER: 12-14-2018 AMLODIPINE 10MG (ONLY TAKE 1/2 TABS WHEN BLOOD PRESSURE IS OVER 150) #90 04-25-2019 ATORVASTATIN #90/90DS 06-16-2019 GLIPIZIDE #90/180 DS (ONLY TAKES 1/2 TAB) 06-16-2019 METOPROLOL #90/90DS 06-16-2019 QUINAPRIL #90/90DS 06-28-2019 GABAPENTIN #180/90DS 07-05-2019 AMIODARONE #90/90DS 07-22-2019 TAMSULOSIN #180/90DS 08-15-2019 CARB/LEVO #360/90DS LEVEMIR, NOVOLOG AND ELIQUIS THE PATIENT SAYS SHE GETS SAMPLES FROM DR. 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 OTC MEDS: FISH OIL DULCOLAX TYLENOL MTV
[2019-08-17] MEDS ORDERED: HEParin 1000 UNIT/ML (10ML VIAL) FOR BOLUS ONE (08:52)
--- NOTE | 2019-08-17 09:12 | Cardiac Procedure Note-CS/ASA ---
Pre-Procedure Note Pre-Op Procedure Note H&P Reviewed The H&P was reviewed, patient examined and no changes noted. Date H&P Reviewed: Aug 17, 2019 Time H&P Reviewed: 09:12 Conscious Sedation Pre-Proced Time 09:12 ASA Score 3 For ASA 3 and 4: Consider anesthesia and medical clearance. Also, for patients with a history of failed moderate sedation consider anesthesia. Airway Lungs Heart ASA score ASA 1: a normal healthy patient ASA 2: a patient with a mild systemic disease (mid diabetes, controlled hypertension, obesity x ASA 3: a patient with a severe systemic disease that limits activity (angina, COPD, prior Myocardial infarction) ASA 4: a patient with an incapacitating disease that is a constant threat to life (CHF, renal failure) ASA 5: a moribund patient not expected to survive 24 hrs. (ruptured aneurysm) ASA 6: a declared brain- patient whose organs are being harvested. For emergent operations, add the letter E after the classification Mallampati Classification Grade 3 Sedation Plan Analgesia, Amnesia, Plan communicated to team members, Discussed options with patient/fam, Discussed risks with patient/fam The patient is an appropriate candidate to undergo the planned procedure, sedation, and anesthesia. The patient immediately re-assessed prior to indication. SEBASTIÁN VALLE MD Aug 17, 2019 09:12 POS
[2019-08-17] MEDS ORDERED: NITRO DRIP 25000 MCG/D5W 250 ML IV ONE (09:40)
[2019-08-17] MEDS ORDERED: CLOPIDOGREL 300 MG (PLAVIX) TABLET PO ONE (10:26)
[2019-08-17] MEDS ORDERED: ASPIRIN 325 MG (5 GR) TABLET ONE (10:26)
[2019-08-17] MEDS ORDERED: PATIENT MAY USE OWN MEDS, ALL PO SCH (10:30)
--- NOTE | 2019-08-17 10:41 | Peripheral Report ---
Peripheral Report Physician (s)/Chief Meteorologist (s) Physician SEBASTIÁN VALLE MD Pre-Procedure Diagnosis Pre-Procedure Diagnosis: Nonhealing foot ulcer, peripheral arterial disease Post-Procedure Note Procedure Start Date: Aug 17, 2019 Name of Procedure: Abdominal aortogram Bilateral runoff Angioplasty and stenting of the right popliteal and right SFA Findings/Procedure Note PROCEDURE NOTE: 78 years old gentleman with history of coronary artery disease, paroxysmal atrial fibrillation and peripheral arterial disease, developed nonhealing ulcer on the right ankle, BASIA was significantly abnormal, decided to proceed with peripheral angiogram. After explaining the procedure to the patient, all pros and cons were explained, all questions were answered. The patient signed the consent and then he was placed on the cardiac catheterization laboratory. The patient was placed on the cardiac catheterization laboratory. Groin was prepped SL fashion local anesthesia was used. Sheath placed in the left femoral artery, pigtail advanced to the abdominal aorta and runoff was done then exchanged over a long J-wire into a straight catheter placed in the right common femoral artery and runoff to the right leg was done. Then the catheter was advanced to the right SFA Angiogram was done then it was removed over a stork wire and the sheath was exchanged into long 6 British sheath. Patient was given 6000 units of heparin. Command wire was advanced patient had total occlusion in the mid SFA to the popliteal artery and a long segment. I was unable to advance the command wire exchanged the straight catheter into many catheter to support the wire and I was able to cross the lesion. Angiogram showed good positioning I proceeded with predilatation using the long [place] 5 then 6 balloon then proceed with deployment of 2 overlapping Supera stents 6 x 150 and 6 x 100 postdilated and angiogram showed excellent results. Then the sheath was retracted and exchange interest short 6 British sheath and advanced pigtail catheter to the abdominal aorta reevaluated the bifurcation, no complication noted then runoff to the left leg was done through the 6 British sheath. At the end of the procedure closure device was used FINDINGS: abdominal aortogram showed atherosclerotic disease with normal bifurcation, no dissection or aneurysm. Or post intervention Right leg runoff: Heavily calcified SFA with total occlusion at the midportion reconstructed at the distal popliteal segment severe disease at the anterior tibial and severe disease at the distal posterior tibial, successful balloon angioplasty then deployment of 2 overlapping Supera stents 6 x 150 and 6 x 100 with excellent results, excellent rapid flow down to the foot Left leg runoff: Heavily calcified SFA with moderate severe disease at multiple segment, severe disease at the anterior tibial artery with total occlusion, moderate disease otherwise CONCLUSIONS: 1. Total occlusion of the right SFA, successful angioplasty and deployment of 2 Supera stents 6 x 150 and 6 x 100 with excellent results and excellent flow, there is severe disease at the distal posterior tibial artery and proximal anterior tibial artery. 2. Heavily calcified left SFA with multiple segment of moderate to severe disease with occluded anterior tibial artery 3. Normal abdominal aorta and bifurcation with mild consultation DISCUSSION AND RECOMMENDATIONS: I will exchange Eliquis 2 Xarelto and add aspirin and Plavix for now and monitor closely Anesthesia Type: Conscious Sedation Estimated blood loss (mL): 35 ml Contrast Amount: 65 ml Total Radiation Dose: 248 mGy Post-Procedure Diagnosis Post-operative diagnosis: Ischemic foot ulcer Peripheral arterial disease Coronary artery disease Hypertension Hyperlipidemia SEBASTIÁN VALLE MD Aug 17, 2019 10:41 POS
[2019-08-17] MEDS ORDERED: NON-FORMULARY MEDICATION 1 EA EA (Amlodipine Besylate 5 MG) PO PRN (10:45)
[2019-08-17] MEDS ORDERED: BISACODYL 5 MG (DULCOLAX) TABLET PO PRN (10:45)
[2019-08-17] MEDS ORDERED: NON-FORMULARY MEDICATION 1 EA EA (Acetaminophen 1,000 MG) PO PRN (10:45)
[2019-08-17] MEDS: NS IV 1000 ML 1,000 ML IV SCH ×2 (10:50→21:29)
[2019-08-17] MEDS ORDERED: amLODIPine 5 MG (NORVASC) TAB PO PRN (12:45)
[2019-08-17] MEDS ORDERED: ACETAMINOPHEN 500 MG TAB (TYLENOL) PO PRN (12:45)
[2019-08-17] MEDS ORDERED: SINEMET CR 50/200 (CARBIDOPA/LEVODOPA SA) TAB PO SCH ×2 (13:00→21:00)
[2019-08-17] MEDS ORDERED: RIVAROXABAN 20 MG TABLET (XARELTO) PO SCH (17:00)
[2019-08-17] MEDS ORDERED: TAMSULOSIN 0.4 MG (FLOMAX) CAP PO SCH (17:30)
[2019-08-17] MEDS ORDERED: GABAPENTIN 300 MG (NEURONTIN) CAP PO SCH (21:00)
[2019-08-17] MEDS ORDERED: NON-FORMULARY MEDICATION 1 EA EA (Omega-3/Dha/Epa/Fish Oil (Fish Oil 1,000 mg Softgel) 1 E PO SCH (21:00)
[2019-08-17] MEDS ORDERED: OMEGA 3 (FISH OIL) 1000 MG CAP PO SCH (21:00)
[2019-08-17] MEDS ORDERED: meTOproloL SUCCINATE 50 MG (TOPROL XL) TAB PO SCH (21:00)
[2019-08-18] VITALS: BP 151/79
[2019-08-18 02:00] VITALS: BP 147/80
[2019-08-18 03:00] VITALS: BP 125/62
[2019-08-18 03:49] LABS: HEMOGLOBIN 12.2 G/DL (13.3-17.7); RED CELL DISTRIBUTION WIDTH 13.5 % (10.0-14.5); WHITE BLOOD COUNT 10.7 10^3/uL (4.3-11.0)
[2019-08-18 04:06] LABS: BUN/CREATININE RATIO 21; CALCIUM 9.1 MG/DL (8.5-10.1); CARBON DIOXIDE 25 MMOL/L (21-32); CHLORIDE 106 MMOL/L (98-107); CREATININE SERUM 0.94 MG/DL (0.60-1.30); GFR ESTIMATED > 60; POTASSIUM 3.7 MMOL/L (3.6-5.0); SODIUM 139 MMOL/L (135-145)
[2019-08-18 04:15] LABS: GLUCOSE 49 MG/DL (70-105)
[2019-08-18 04:20] VITALS: BP 115/53
[2019-08-18 05:00] VITALS: BP 128/67
[2019-08-18] MEDS ORDERED: glipiZIDE 5 MG (GLUCOTROL) TAB PO SCH (06:30)
[2019-08-18] MEDS: NS IV 1000 ML 1,000 ML IV SCH (06:35)
[2019-08-18] MEDS ORDERED: MULTIVIT W/MINERALS TAB (THERAGRAN M) PO SCH (07:00)
[2019-08-18] MEDS ORDERED: CLOP75TA28 PO (07:10)
[2019-08-18] MEDS ORDERED: ASPI-983 PO (07:10)
[2019-08-18] MEDS ORDERED: RIVA20TA2 PO (07:10)
--- NOTE | 2019-08-18 07:10 | Discharge Inst-Post CATH ---
Discharge Inst-CATH/EP Problems Reviewed?: Yes Post Cardiac Cath/EP D/C Inst Follow Up/Plan Stop Eliquis Start Xarelto, aspirin and Plavix Appointment with Dr. Karimi's office in 2-4 weeks <b>CARDIAC CATH/EP PROCEDURE DISCHARGE INSTRUCTIONS</b> ACTIVITY * Go Home directly and rest. * Limit activity of the leg (or wrist if it was used) for 7 days including aerobics, swimming, jogging, bicycling, etc. * Restrict stair-climbing for 7 days if possible, if not, climb up with your non-cath leg, then bring together on the same step. * Avoid lifting, pushing, pulling or excessive movement of the affected extremity for 7 days. * Customary sexual activity may be resumed after 2 days-use caution not to use a position that strains or causes pain to the affected extremity. * No driving for 24 hours. * NO SMOKING. * Avoid straining for bowel movements for 7 days. * Gentle walking on level ground is allowed. * Returning to work will depend on the type of procedure and the results. Your doctor will discuss this with you. CALL YOUR DOCTOR FOR ANY OF THE FOLLOWING: *If bleeding from the puncture site occurs- Apply gentle pressure to site with clean cloth and call your doctor or EMS. * If a knot or lump forms under the skin, increases in size, or causes pain. * If bruising appears to be worsening or moving further down your leg instead of disappearing. * Temperature above 101 F. CARE OF YOUR GROIN INCISION; * Bruising or purple discoloration of the skin near the puncture site is common. * You may shower only, no bathtub bathing for 5 days. Be careful to avoid slipping as your leg may feel stiff. * If a closure device was used on your femoral artery, please see the attached guide regarding care of the device and your leg. * Leave dressing on FOR 24 hours. CARE OF YOUR WRIST INCISION; * Bruising or purple discoloration of the skin near the puncture site is common. * You may shower. * DO NOT submerge wrist. * Leave dressing on FOR 24 hours. SEBASTIÁN KARIMI MD Aug 18, 2019 07:10 POS
[2019-08-18] MEDS ORDERED: PANT40SU PO (07:11)
--- NOTE | 2019-08-18 07:25 | Cardiology Progress Note ---
Subjective Date Seen by Provider: Aug 18, 2019 Time Seen by Provider: 07:23 Subjective/Events-last exam Patient is laying down in bed, groin is healing well. No new complaint Review of Systems General: No Chills, No Night Sweats, No Fatigue, No Malaise, No Appetite, No Other HEENT: No Head Aches, No Visual Changes, No Eye Pain, No Ear Pain, No Dysphasia, No Sinus Congestion, No Post Nasal Drip, No Sore Throat, No Other Pulmonary: No Dyspnea, No Cough, No Pleuritic Chest Pain, No Other Cardiovascular: No: Chest Pain, Palpitations, Orthopnea, Paroxysmal Noc. Dyspnea, Edema, Lt Headedness, Other Objective-Cardiology Exam Last Set of Vital Signs Vital Signs 08/18/19 05:00 Pulse 59 Resp 14 B/P (MAP) 128/67 (87) Pulse Ox 95 O2 Delivery Nasal Cannula O2 Flow Rate 2.00 Capillary Refill : Less Than 3 Seconds General: Alert, Oriented X3, Cooperative HEENT: Atraumatic, PERRLA Neck: Supple, No JVD, No Thyromegaly Lungs: Clear to Auscultation, Normal Air Movement Heart: Regular Rate, Normal S1, Normal S2, No Murmurs Abdomen: Normal Bowel Sounds, Soft, No Tenderness, No Hepatosplenomegaly, No Masses Extremities: No Clubbing, No Cyanosis, No Edema, Normal Pulses, No Tend erness/Swelling Skin: No Rashes, No Breakdown, No Significant Lesion Neuro: Normal Gait, Normal Speech, Strength at 5/5 X4 Ext, Normal Tone, Sensation Intact Psych/Mental Status: Mental Status NL, Mood NL Results Lab Laboratory Tests 08/18/19 03:00 A/P-Cardiology Admission Diagnosis Nonhealing foot ulcer Peripheral arterial disease Hypertension Hyperlipidemia Diabetes mellitus Assessment/Plan Peripheral arterial disease, extensive disease as described below 1. Total occlusion of the right SFA, successful angioplasty and deployment of 2 Supera stents 6 x 150 and 6 x 100 with excellent results and excellent flow, th ere is severe disease at the distal posterior tibial artery and proximal anterior tibial artery. 2. Heavily calcified left SFA with multiple segment of moderate to severe disease with occluded anterior tibial artery 3. Normal abdominal aorta and bifurcation with mild consultation Nonhealing foot ulcer, status post angiogram with intervention on totally occluded right SFA with excellent results, still have distal disease which would be considered for intervention if he continued to be having nonhealing ulcer Hypertension, controlled, monitor blood pressure Hyperlipidemia, monitor lipids Diabetes mellitus, had an episode of hypoglycemia this morning. Continue to monitor blood sugar and deferred to the primary care physician for diabetic management SEBASTIÁN VALLE MD Aug 18, 2019 07:25 POS
[2019-08-18] MEDS ORDERED: SINEMET CR 50/200 (CARBIDOPA/LEVODOPA SA) TAB PO SCH (08:00)
--- NOTE | 2019-08-18 08:11 | NUR ---
NO MORNING MEDS GIVEN PER 'S REQUEST. SHE PLANS TO ADMIN MORNING MEDS AT HOME AFTER PICKING UP RX.
[2019-08-18] MEDS ORDERED: NON-FORMULARY MEDICATION 1 EA EA (Quinapril HCl 40 MG) PO SCH (09:00)
[2019-08-18] MEDS ORDERED: ASPIRIN E.C. 81 MG (ECOTRIN) TAB PO SCH (09:00)
[2019-08-18] MEDS ORDERED: QUINAPRIL 20 MG (ACCUPRIL) TAB PO SCH (09:00)
[2019-08-18] MEDS ORDERED: AMIODARONE 200 MG (CORDARONE) TAB PO SCH (09:00)
[2019-08-18] MEDS ORDERED: CLOPIDOGREL 75 MG (PLAVIX) TABLET PO SCH (09:00)
[2019-08-18] MEDS ORDERED: NON-FORMULARY MEDICATION 1 EA EA (Glipizide 5 MG) PO SCH (09:00)
== END 2019-08-18 07:30 | disposition home or self-care (01) ==
LOC: CATH 06:46 → ICU 10:52 → CATH 08-18 07:30
PROVIDERS: ATTEND Internal Medicine Cardiovascular Disease
DX: E11.621 Type 2 diabetes mellitus with foot ulcer (principal); I25.10 Atherosclerotic heart disease of native coronary artery without angina pectoris; I10 Essential (primary) hypertension; I08.3 Combined rheumatic disorders of mitral, aortic and tricuspid valves; I65.29 Occlusion and stenosis of unspecified carotid artery; I49.5 Sick sinus syndrome; I47.2 Ventricular tachycardia; I48.0 Paroxysmal atrial fibrillation; G47.30 Sleep apnea, unspecified; E78.5 Hyperlipidemia, unspecified; E11.42 Type 2 diabetes mellitus with diabetic polyneuropathy; F03.90 Unspecified dementia, unspecified severity, without behavioral disturbance, psychotic disturbance, mood disturbance, and anxiety; Z87.891 Personal history of nicotine dependence; Z79.01 Long term (current) use of anticoagulants; Z79.899 Other long term (current) drug therapy; Z82.49 Family history of ischemic heart disease and other diseases of the circulatory system
CPT/HCPCS: 36246; 36248; 36415; 37226; 71045; 75716; 80048; 80053; 80061; 82962; 85027; 85347; 85610; 85730; 87081

== ENCOUNTER → 2019-08-25 | Outpatient (CLI) | payer MEDICARE ==
[~2019-08-25] MED LIST changes: +ACET-93 PO; +ASPI-983 PO; +BISA-65 PO; +CARB1TAB41 PO; +CLOP75TA28 PO; +METO-370 PO; +MULT1TAB69 PO; +OMEG-160 PO; +PANT40SU PO; +RIVA20TA2 PO
[2019-08-25 14:40] LABS: BASOPHILS % (AUTO) 0 % (0-10); EOSINOPHILS # (AUTO) 0.1 10^3/uL (0.0-0.3); EOSINOPHILS % (AUTO) 1 % (0-10); HEMATOCRIT 37 % (40-54); HEMOGLOBIN 11.8 G/DL (13.3-17.7); LYMPHOCYTES # (AUTO) 1.1 X 10^3 (1.0-4.0); LYMPHOCYTES % (AUTO) 11 % (12-44); MEAN CORPUSCULAR HEMOGLOBIN 31 PG (25-34); MEAN CORPUSCULAR HGB CONC 32 G/DL (32-36); MEAN CORPUSCULAR VOLUME 97 FL (80-99); MEAN PLATELET VOLUME 11.3 FL (7.4-10.4); MONOCYTES # (AUTO) 1.1 X 10^3 (0.0-1.0); MONOCYTES % (AUTO) 10 % (0-12); NEUTROPHILS # (AUTO) 8.3 X 10^3 (1.8-7.8); NEUTROPHILS % (AUTO) 79 % (42-75); PLATELET COUNT 198 10^3/uL (130-400); RED CELL DISTRIBUTION WIDTH 13.4 % (10.0-14.5); WHITE BLOOD COUNT 10.5 10^3/uL (4.3-11.0)
--- NOTE | 2019-08-25 15:00 | Diagnostic Imaging Report ---
INDICATION: Cough and wheezing. COMPARISON: 08/17/2019. FINDINGS: Frontal and lateral radiographic views of the chest were obtained and show normal cardiac silhouette. Pulmonary vasculature is mildly prominent. There is some plate-like perihilar atelectasis. Small left basilar effusion is also noted. There is no large effusion on the right. Lungs are otherwise clear. There is no pneumothorax on either side. Left-sided dual-lead pacemaker and calcified aortic atherosclerosis are also noted. IMPRESSION: 1. Mild pulmonary vascular congestion. 2. Small left basilar effusion. Dictated by: Dictated on workstation # [id number]
== END ==
LOC: LAB 14:24
PROVIDERS: ATTEND Family Medicine
DX: J90 Pleural effusion, not elsewhere classified (principal); R09.89 Other specified symptoms and signs involving the circulatory and respiratory systems
CPT/HCPCS: 36415; 71046; 85025

== ENCOUNTER → 2019-08-28 | Outpatient (CLI) | payer MEDICARE ==
[2019-08-28 12:09] LABS: BUN/CREATININE RATIO 17; CALCIUM 9.8 MG/DL (8.5-10.1); CARBON DIOXIDE 26 MMOL/L (21-32); CHLORIDE 101 MMOL/L (98-107); CREATININE SERUM 1.09 MG/DL (0.60-1.30); GFR ESTIMATED > 60; GLUCOSE 159 MG/DL (70-105); POTASSIUM 3.4 MMOL/L (3.6-5.0); SODIUM 141 MMOL/L (135-145)
--- NOTE | 2019-08-28 12:29 | Diagnostic Imaging Report ---
PATIENT HISTORY: SOB, CHF. TECHNIQUE: 2 views of the chest COMPARISON: 08/25/2019 FINDINGS: Lung volumes are normal. There is central vascular congestion and interstitial edema. Patchy airspace opacities are seen in the right lung and appear mildly increased since the prior exam. There is linear atelectasis in the left lung. The left pacemaker appears stable. Aortic atherosclerosis is seen. There is no pneumothorax. There is a small left pleural effusion. IMPRESSION: 1. Interstitial and airspace opacities appear mildly increased, may represent edema. 2. Small left pleural effusion. Dictated by: Dictated on workstation # [id number]
== END ==
LOC: RAD 11:26
PROVIDERS: ATTEND Family Medicine
DX: J90 Pleural effusion, not elsewhere classified (principal); I50.9 Heart failure, unspecified; R91.8 Other nonspecific abnormal finding of lung field
CPT/HCPCS: 36415; 71046; 80048; 83880

== ENCOUNTER → 2019-09-06 | Outpatient (CLI) | payer MEDICARE ==
--- NOTE | 2019-09-06 16:55 | Diagnostic Imaging Report ---
PROCEDURE: CT head without contrast. TECHNIQUE: Multiple contiguous axial images were obtained through the brain without the use of intravenous contrast. Auto Exposure Controls were utilized during the CT exam to meet ALARA standards for radiation dose reduction. INDICATION: Fell, anticoagulated. FINDINGS: The previous CT head exam performed on 09/06/2018 noted a slightly thickened hyperdensity along the posterior falx. The possibility that this was related to minimal subdural hemorrhage was raised. On this exam, that finding is again evident and does not appear to have changed significantly. There is no other parenchymal or subdural hemorrhage identified. The normal tentorial blush is noted. The ventricles are prominent but unchanged in size when compared to the prior exam. The size of the ventricles is most likely due to the underlying cortical atrophy and periventricular encephalomalacia. The bone windows show no sign of a fracture or of a destructive lesion. The orbits and sinuses were not visualized in their entirety. Where visualized, there is no acute abnormality. IMPRESSION: 1. The slightly thickened hyperdensity along the posterior falx seen previously is again evident and does not appear to have changed significantly. Consequently, this finding is unlikely to be related to an acute abnormality. 2. There is no acute intracranial abnormality noted. 3. If the patient's symptoms of headache persist, then a short-term (24-hour) follow-up CT head exam would be recommended. 4. These results were discussed with Dr. Damon. Dictated by: Dictated on workstation # [id number]
== END ==
LOC: RAD 16:02
PROVIDERS: ATTEND Family Medicine
DX: G93.89 Other specified disorders of brain (principal); W19.XXXA Unspecified fall, initial encounter
CPT/HCPCS: 70450

== ENCOUNTER → 2019-09-07 | Outpatient (CLI) | payer MEDICARE ==
--- NOTE | 2019-09-07 17:10 | Diagnostic Imaging Report ---
PROCEDURE: CT head without contrast. TECHNIQUE: Multiple contiguous axial images were obtained through the brain without the use of intravenous contrast. Auto Exposure Controls were utilized during the CT exam to meet ALARA standards for radiation dose reduction. DATE: September 07, 2019. COMPARISON: None. INDICATION: CT head September 06, 2019. MRI brain September 06, 2018. FINDINGS: There is proportional prominence of the ventricles and CSF spaces consistent with moderate cerebral volume loss. There are prominent areas of low attenuation in the periventricular and subcortical white matter which are nonspecific but most likely relate to advanced changes of chronic small vessel ischemic disease. There is no mass effect or midline shift. There is no acute intracranial hemorrhage. There is no abnormal extra-axial fluid collection. The visualized portions of the paranasal sinuses, mastoid air cells and middle ears are well aerated. IMPRESSION: 1. No identified acute intracranial abnormality. 2. Moderate cerebral volume loss with advanced changes of chronic small vessel ischemic disease. Dictated by: Dictated on workstation # [id number]
== END ==
LOC: RAD 16:46
PROVIDERS: ATTEND Family Medicine
DX: I67.82 Cerebral ischemia (principal); J34.89 Other specified disorders of nose and nasal sinuses; W19.XXXA Unspecified fall, initial encounter
CPT/HCPCS: 70450

== ENCOUNTER 2019-09-14 18:17 | Inpatient (IN) | payer MEDICARE ==
[2019-09-13] MEDS: NS IV 1000 ML 1,000 ML IV SCH (22:45)
[~2019-09-14] VITALS: Ht 182.8 cm; Wt 75.3 kg
[~2019-09-14 18:17] MED LIST changes: -METO-370 PO; -METO-395 PO; +METO50TA7 PO; +MTP100TCR PO; -TAMS0.4C98 PO
[2019-09-14] MEDS ORDERED: NS IV 1000 ML 1,000 ML ONE (18:45)
[2019-09-14 18:51] LABS: BASOPHILS % (AUTO) 0 % (0-10); EOSINOPHILS # (AUTO) 0.2 10^3/uL (0.0-0.3); EOSINOPHILS % (AUTO) 2 % (0-10); HEMATOCRIT 37 % (40-54); HEMOGLOBIN 12.3 G/DL (13.3-17.7); LYMPHOCYTES # (AUTO) 3.7 X 10^3 (1.0-4.0); LYMPHOCYTES % (AUTO) 26 % (12-44); MEAN CORPUSCULAR HEMOGLOBIN 31 PG (25-34); MEAN CORPUSCULAR HGB CONC 33 G/DL (32-36); MEAN CORPUSCULAR VOLUME 94 FL (80-99); MEAN PLATELET VOLUME 11.6 FL (7.4-10.4); MONOCYTES # (AUTO) 1.1 X 10^3 (0.0-1.0); MONOCYTES % (AUTO) 8 % (0-12); NEUTROPHILS # (AUTO) 9.3 X 10^3 (1.8-7.8); NEUTROPHILS % (AUTO) 65 % (42-75); PLATELET COUNT 237 10^3/uL (130-400); WHITE BLOOD COUNT 14.3 10^3/uL (4.3-11.0)
[2019-09-14] MEDS ORDERED: NS IV 1000 ML 1,000 ML IV SCH (19:00)
[2019-09-14 19:04] LABS: INR 2.9 (0.8-1.4); PROTHROMBIN TIME PATIENT 31.5 SEC (12.2-14.7)
[2019-09-14 19:05] LABS: SMEAR SCAN COMMENT YES
--- NOTE | 2019-09-14 19:06 | ED General ---
General Chief Complaint: Altered Mental Status Stated Complaint: AMS Nursing Triage Note: PT TO ROOM 03 WITH C/O ALTERED MENTAL STATUS, CONFUSION, AND WEAKNESS X3 DAYS. FAMILY REPORTS THAT PT HAS FALLEN MULTIPLE TIMES IN THE LAST FEW DAYS. REDDENED AREA NOTED IN THE MIDDLE OF BACK. Nursing Sepsis Screen: No Definite Risk Source of Information: Patient Exam Limitations: No Limitations History of Present Illness Date Seen by Provider: Sep 14, 2019 Time Seen by Provider: 19:03 Initial Comments To ER with reports of worsening of altered mental status/confusion, global weakness for 3 days. He has Parkinson's disease with dementia. 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 He's fallen several times over the past couple days. Timing/Duration: 1-2 Days Severity: Moderate Associated Systoms: Weakness Allergies and Home Medications Allergies Coded Allergies: No Known Drug Allergies (Unverified , 09/06/18) Home Medications Acetaminophen 500 Mg Tablet, 1,000 MG PO Q8H PRN for PAIN-MILD, (Reported) Amiodarone HCl 200 Mg Tablet, 200 MG PO DAILY, (Reported) Amlodipine Besylate 10 Mg Tablet, 5 MG PO DAILY PRN for BLOOD PRESSURE, (Reported) TAKES 1/2 OF A 10MG TAB TO EQUAL 5MG ONLY WHEN BLOOC PRESSURE IS >150 Aspirin 81 Mg Tablet.dr, 81 MG PO DAILY Prescribed by: SEBASTIÁN KARIMI on 08/18/19 07 Atorvastatin Calcium 40 Mg Tablet, 40 MG PO HS, (Reported) Bisacodyl 5 Mg Tablet.dr, 10 MG PO HS PRN for CONSTIPATION-1ST LINE, (Reported) Carbidopa/Levodopa 1 Each Tablet.er, 2 EACH PO 0800, (Reported) TAKES 2 TABS IN THE MORNING, 1 TAB AT 1300 AND 1 TAB AT BEDTIME Carbidopa/Levodopa 1 Each Tablet.er, 1 EACH PO 1300, (Reported) TAKES 2 TABS IN THE MORNING, 1 TAB AT 1300 AND 1 TAB AT BEDTIME Carbidopa/Levodopa 1 Each Tablet.er, 1 EACH PO HS, (Reported) TAKES 2 TABS IN THE MORNING, 1 TAB AT 1300 AND 1 TAB AT BEDTIME Clopidogrel Bisulfate 75 Mg Tablet, 75 MG PO DAILY Prescribed by: SEBASTIÁN KARIMI on 08/18/19 07 Gabapentin 300 Mg Capsule, 300 MG PO BID, (Reported) Glipizide 10 Mg Tablet, 5 MG PO DAILY, (Reported) TAKES 1/2 (10MG) TABLET Insulin Aspart 300 Units/3 Ml Solution, SQ AC, (Reported) Insulin Determir 1,000 Units/10 Ml Soln, 40 UNITS SQ HS, (Reported) Metoprolol Succinate 50 Mg Tab.er.24h, 50 MG PO HS, (Reported) Multivitamin 1 Each Tablet, 1 EACH PO DAILY, (Reported) [place]-3/Dha/Epa/Fish Oil 1 Each Capsule, 1 EACH PO BID, (Reported) Pantoprazole Sodium 40 Mg Granpkt.dr, 40 MG PO DAILY Prescribed by: SEBASTIÁN KARIMI on 08/18/19 0711 Quinapril HCl 40 Mg Tablet, 40 MG PO DAILY, (Reported) Rivaroxaban 20 Mg Tablet, 20 MG PO DAILY@1700 Prescribed by: SEBASTIÁN KARIMI on 08/18/19 0710 Tamsulosin HCl 0.4 Mg Cap, 0.8 MG PO 1730, (Reported) TAKES 2 (0.4MG) TO EQUAL 0.8MG, TAKE AFTER EVENING MEAL Patient Home Medication List Home Medication List Reviewed: Yes Review of Systems Review of Systems Constitutional: see HPI, weakness (unable to obtain due to altered mental status) Past Karygft-Ezcdyl-Dcdszn Hx Patient Social History Type Used: Pipe Recent Foreign Travel: No Contact w/Someone Who Travel: No Recent Infectious Disease Expo: No Recent Hopitalizations: Yes Immunizations Up To Date Date of Pneumonia Vaccine: Aug 17, 2016 Date of Influenza Vaccine: Aug 03, 2019 Seasonal Allergies Seasonal Allergies: No Past Medical History Surgeries: Yes Coronary Stent Respiratory: No Cardiac: Yes (X9 STENTS/PACEMAKER) Neurological: Yes Dementia, Stroke Genitourinary: Yes ([employer]) Benign Prostatic Hyperpl, Prostate Problems Gastrointestinal: No Musculoskeletal: Yes Endocrine: Yes Diabetes, Insulin dep HEENT: No Cancer: No Psychosocial: No Integumentary: Yes (dryness) Blood Disorders: No Physical Exam Vital Signs Vital Signs - First Documented 09/14/19 18:57 Temp 36.4 Pulse 60 Resp 17 B/P (MAP) 88/53 (65) O2 Delivery Room Air Capillary Refill : Less Than 3 Seconds Height, Weight, BMI Height: 6'0.00" Weight: 177lbs. 9.6oz. 80.523837og; 23.00 BMI Method:Stated General Appearance: No Apparent Distress, WD/WN Eyes: Bilateral Eye Normal Inspection, Bilateral Eye PERRL, Bilateral Eye EOMI HEENT: PERRL/EOMI, TMs Normal, Other (there is a large left subconjunctival hemorrhage, states this is been present for several days since the fall) Neck: Full Range of Motion, Normal Inspection Respiratory: No Accessory Muscle Use, No Respiratory Distress Cardiovascular: Regular Rate, Rhythm, Normal Peripheral Pulses Gastrointestinal: Normal Bowel Sounds, Non Tender, Soft Extremity: Normal Capillary Refill, Normal Inspection, Other (ulcer 1-2cm lateral malleolus with overlying eschar no surrounding erythema) Neurologic/Psychiatric: Alert, Disoriented Skin: Normal Color, Warm/Dry Comments Left foot is cooler than the right, unable to palpate posterior tibial or dorsalis pedis pulse on the left, very faint palpable pulse in the posterior tibial region on the right. Focused Exam Lactate Level 09/14/19 18:35: Lactic Acid Level 1.98 Lactic Acid Level Laboratory Tests Test 09/14/19 18:35 Lactic Acid Level 1.98 MMOL/L (0.50-2.00) Progress/Results/Core Measures Suspected Sepsis Recent Fever Within 48 Hours: No Infection Criteria Present: None New/Unexplained Altered Menta: No Sepsis Screen: No Definite Risk SIRS Temperature: Pulse: 60 Respiratory Rate: 17 Laboratory Tests 09/14/19 18:35: White Blood Count 14.3H Blood Pressure 88 /53 Mean: 65 09/14/19 18:35: Lactic Acid Level 1.98 Laboratory Tests 09/14/19 18:35: Creatinine 1.49H, INR Comment 2.9H, Platelet Count 237, Total Bilirubin 0.8 Results/Orders Lab Results Laboratory Tests Test 09/14/19 18:35 09/14/19 20:27 Range/Units White Blood Count 14.3 H 4.3-11.0 10^3/uL Red Blood Count 3.98 L 4.35-5.85 10^6/uL Hemoglobin 12.3 L 13.3-17.7 G/DL Hematocrit 37 L 40-54 % Mean Corpuscular Volume 94 80-99 FL Mean Corpuscular Hemoglobin 31 25-34 PG Mean Corpuscular Hemoglobin Concent 33 32-36 G/DL Red Cell Distribution Width 13.0 10.0-14.5 % Platelet Count 237 130-400 10^3/uL Mean Platelet Volume 11.6 H 7.4-10.4 FL Neutrophils (%) (Auto) 65 42-75 % Lymphocytes (%) (Auto) 26 12-44 % Monocytes (%) (Auto) 8 0-12 % Eosinophils (%) (Auto) 2 0-10 % Basophils (%) (Auto) 0 0-10 % Neutrophils # (Auto) 9.3 H 1.8-7.8 X 10^3 Lymphocytes # (Auto) 3.7 1.0-4.0 X 10^3 Monocytes # (Auto) 1.1 H 0.0-1.0 X 10^3 Eosinophils # (Auto) 0.2 0.0-0.3 10^3/uL Basophils # (Auto) 0.0 0.0-0.1 10^3/uL Neutrophils % (Manual) 70 % Lymphocytes % (Manual) 21 % Monocytes % (Manual) 6 % Eosinophils % (Manual) 3 % Basophils % (Manual) % Blood Morphology Comment NORMAL Prothrombin Time 31.5 H 12.2-14.7 SEC INR Comment 2.9 H 0.8-1.4 Sodium Level 137 135-145 MMOL/L Potassium Level 4.4 3.6-5.0 MMOL/L Chloride Level 100 98-107 MMOL/L Carbon Dioxide Level 25 21-32 MMOL/L Anion Gap 12 5-14 MMOL/L Blood Urea Nitrogen 26 H 7-18 MG/DL Creatinine 1.49 H 0.60-1.30 MG/DL Estimat Glomerular Filtration Rate 46 BUN/Creatinine Ratio 17 Glucose Level 91 70-105 MG/DL Lactic Acid Level 1.98 0.50-2.00 MMOL/L Calcium Level 9.3 8.5-10.1 MG/DL Corrected Calcium 10.2 H 8.5-10.1 MG/DL Total Bilirubin 0.8 0.1-1.0 MG/DL Aspartate Amino Transf (AST/SGOT) 23 5-34 U/L Alanine Aminotransferase (ALT/SGPT) < 6 0-55 U/L Alkaline Phosphatase 139 H 40-136 U/L Total Protein 6.3 L 6.4-8.2 GM/DL Albumin 2.9 L 3.2-4.5 GM/DL Smear Scan YES Urine Color ORANGE Urine Clarity CLOUDY Urine pH 6.0 5-9 Urine Specific Tracy 1.020 1.016-1.022 Urine Protein 1+ H NEGATIVE Urine Glucose (UA) 1+ H NEGATIVE Urine Ketones TRACE H NEGATIVE Urine Nitrite NEGATIVE NEGATIVE Urine Bilirubin NEGATIVE NEGATIVE Urine Urobilinogen 0.2 < = 1.0 MG/DL Urine Leukocyte Esterase 2+ H NEGATIVE Urine RBC (Auto) TRACE-I NEGATIVE Urine RBC 0-2 /HPF Urine WBC TNTC H /HPF Urine Crystals NONE /LPF Urine Bacteria FEW H /HPF Urine Casts NONE /LPF Urine Mucus NEGATIVE /LPF Urine Culture Indicated YES My Orders Orders - MARIA ALEJANDRA CHAVEZ APRN Cbc With Automated Diff (09/14/19 18:26) Comprehensive Metabolic Panel (09/14/19 18:26) Protime With Inr (09/14/19 18:26) Chest 1 View, Ap/Pa Only (09/14/19 18:26) Ua Culture If Indicated (09/14/19 18:26) Blood Culture (09/14/19 18:26) Lactic Acid Analyzer (09/14/19 18:26) Ns Iv 1000 Ml (Sodium Chloride 0.9%) (09/14/19 18:45) Ekg Tracing (09/14/19 18:49) Ns Iv 1000 Ml (Sodium Chloride 0.9%) (09/14/19 19:00) Manual Differential (09/14/19 18:35) Ct Head/Cervical Spine Wo (09/14/19 19:07) Pelvis With Left Hip 2-3 Views (09/14/19 19:35) Urine Culture (09/14/19 20:27) Vital Signs/I&O 09/14/19 18:57 Temp 36.4 Pulse 60 Resp 17 B/P (MAP) 88/53 (65) O2 Delivery Room Air Capillary Refill : Less Than 3 Seconds Blood Pressure Mean: 65 POS Diagnostic Imaging Diagonstic Imaging: Xray, CT Comments NAME: WEI PARADA [facility] REC#: [id number] PT STATUS: REG ER : 1940 PHYSICIAN: MARIA ALEJANDRA CHAVEZ APRN ADMIT DATE: 09/14/19/ER Signed POSDate of Exam:09/14/19 CT HEAD/CERVICAL SPINE WO PROCEDURE: CT head and CT cervical spine without contrast. TECHNIQUE: Multiple contiguous axial images were obtained through the brain and cervical spine without the use of intravenous contrast. Sagittal and coronal reformations through the cervical spine were then performed. Auto Exposure Controls were utilized during the CT exam to meet ALARA standards for radiation dose reduction. INDICATION: Head injury from a fall CT HEAD: There is generalized atrophy. There is decreased density in the periventricular white matter of the cerebral hemispheres. There are no masses, hemorrhages or extra-axial fluid collections. There are no skull fractures seen. IMPRESSION: Senescent changes of the brain with diffuse cerebral degeneration and chronic ischemic leukoencephalopathy. No acute abnormality seen CT cervical spine: Vertebral body height and alignment appear normal. There are degenerative disc changes at C3-C4, C4-C5 C5-C6 and C6-C7. There are anterior bridging osteophytes from C6 through T1. There are some hypertrophic changes of the uncovertebral joints of the mid cervical spine. There is no fracture or misalignment. IMPRESSION: Degenerative changes of the cervical spine. No acute abnormality seen. Dictated by: Dictated on workstation # [id number] Dict: 09/14/191936 Trans: 09/14/191943 [facility] [id number] Interpreted by: JJ PARHAM MD Electronically signed by: JJ PARHAM MD 09/14/191943 NAME: WEI PARADA [facility] REC#: [id number] PT STATUS: REG ER : 1940 PHYSICIAN: MARIA ALEJANDRA CHAVEZ APRN ADMIT DATE: 09/14/19/ER Signed POSDate of Exam:09/14/19 CHEST 1 VIEW, AP/PA ONLY INDICATION: Altered mental status. EXAMINATION: Portable chest at 7:24 p.m. FINDINGS: There is a dual chamber pacemaker. Heart size and pulmonary vascularity are normal. There are no consolidating infiltrates. There are no effusions or pneumothoraces. IMPRESSION: Mild interstitial prominence in the right upper lung. This is improved since 08/28/2019. Dictated by: Dictated on workstation # [id number] Dict: 09/14/191940 Trans: 09/14/191943 [facility] [id number] Interpreted by: JJ PARHAM MD Electronically signed by: JJ PARHAM MD 09/14/191943 NAME: WEI PARADA [facility] REC#: [id number] PT STATUS: REG ER : 1940 PHYSICIAN: MARIA ALEJANDRA CHAVEZ APRN ADMIT DATE: 09/14/19/ER Draft POSDate of Exam:09/14/19 PELVIS WITH LEFT HIP 2-3 VIEWS INDICATION: Left hip pain AP view pelvis and two views of the left hip show an old healed fracture of the lesser trochanter. There is no acute fracture seen. Joint spaces well-maintained. There is calcific atherosclerosis. IMPRESSION: Old healed fracture of the lesser trochanter. No acute abnormality seen. Dictated on workstation # [id number] Dict: 09/14/192023 Trans: 09/14/192028 [facility] [phone] Interpreted by: JJ PARHAM MD Electronically signed by: Departure Communication (Admissions) Time/Spoke to Admitting Phy: 21:06 Time/Spoke to Consulting Phy: 21:[address] Karimi, at this point no intervention, he'll evaluate the patient in the morning and intervene if necessary. On arrival to ER patient's blood pressure was 88 systolic and 92 systolic on 2 separate readings, after a 1 L fluid bolus pressure increased to 140s systolic and mentation improved though still confused/disoriented. I am unable to palpate a pulse or Doppler blood flow in the left posterior tibial artery or dorsalis pedis artery. There is however capillary refill of the toes though it is significantly delayed at about 4-5 seconds. The left lower extremity is cooler to touch in comparison to the right. Patient's and at bedside agree that he is DO NOT RESUSCITATE status. Impression Primary Impression: AMS (altered mental status) Additional Impressions: Volume depletion PAD (peripheral artery disease) Disposition: ADMITTED INPATIENT Condition: Stable Admissions Decision to Admit Reason: Admit from ER (General) Decision to Admit/Date: Sep 14, 2019 Time/Decision to Admit Time: 20:57 Departure-Patient Inst. Referrals: DENIZ KENT DO (PCP/Family) Primary Care Physician MARIA ALEJANDRA CHAVEZ APRN Sep 14, 2019 19:06 POS
[2019-09-14 19:11] LABS: ALANINE AMINOTRANSFERASE < 6 U/L (0-55); ALBUMIN 2.9 GM/DL (3.2-4.5); ALKALINE PHOSPHATASE 139 U/L (40-136); BILIRUBIN,TOTAL 0.8 MG/DL (0.1-1.0); BUN/CREATININE RATIO 17; CALCIUM 9.3 MG/DL (8.5-10.1); CARBON DIOXIDE 25 MMOL/L (21-32); CHLORIDE 100 MMOL/L (98-107); CREATININE SERUM 1.49 MG/DL (0.60-1.30); GFR ESTIMATED 46; GLUCOSE 91 MG/DL (70-105); POTASSIUM 4.4 MMOL/L (3.6-5.0); SODIUM 137 MMOL/L (135-145); TOTAL PROTEIN 6.3 GM/DL (6.4-8.2)
[2019-09-14 19:20] LABS: EOSINOPHILS % (MANUAL) 3 %; LYMPHOCYTES % (MANUAL) 21 %; MONOCYTES % (MANUAL) 6 %; NEUTROPHILS % (MANUAL) 70 %
[2019-09-14 19:21] LABS: RBC MORPH NORMAL
--- NOTE | 2019-09-14 19:43 | Diagnostic Imaging Report ---
INDICATION: Altered mental status. EXAMINATION: Portable chest at 7:24 p.m. FINDINGS: There is a dual chamber pacemaker. Heart size and pulmonary vascularity are normal. There are no consolidating infiltrates. There are no effusions or pneumothoraces. IMPRESSION: Mild interstitial prominence in the right upper lung. This is improved since 08/28/2019. Dictated by: Dictated on workstation # [id number]
--- NOTE | 2019-09-14 19:44 | Diagnostic Imaging Report ---
PROCEDURE: CT head and CT cervical spine without contrast. TECHNIQUE: Multiple contiguous axial images were obtained through the brain and cervical spine without the use of intravenous contrast. Sagittal and coronal reformations through the cervical spine were then performed. Auto Exposure Controls were utilized during the CT exam to meet ALARA standards for radiation dose reduction. INDICATION: Head injury from a fall CT HEAD: There is generalized atrophy. There is decreased density in the periventricular white matter of the cerebral hemispheres. There are no masses, hemorrhages or extra-axial fluid collections. There are no skull fractures seen. IMPRESSION: Senescent changes of the brain with diffuse cerebral degeneration and chronic ischemic leukoencephalopathy. No acute abnormality seen CT cervical spine: Vertebral body height and alignment appear normal. There are degenerative disc changes at C3-C4, C4-C5 C5-C6 and C6-C7. There are anterior bridging osteophytes from C6 through T1. There are some hypertrophic changes of the uncovertebral joints of the mid cervical spine. There is no fracture or misalignment. IMPRESSION: Degenerative changes of the cervical spine. No acute abnormality seen. Dictated by: Dictated on workstation # [id number]
--- NOTE | 2019-09-14 20:29 | Diagnostic Imaging Report ---
INDICATION: Left hip pain AP view pelvis and two views of the left hip show an old healed fracture of the lesser trochanter. There is no acute fracture seen. Joint spaces well-maintained. There is calcific atherosclerosis. IMPRESSION: Old healed fracture of the lesser trochanter. No acute abnormality seen. Dictated by: Dictated on workstation # [id number]
[2019-09-14 20:33] LABS: BILIRUBIN,URINE NEGATIVE (NEGATIVE); CLARITY,URINE CLOUDY; COLOR,URINE ORANGE; GLUCOSE, URINE (UA) 1+ (NEGATIVE); KETONES,URINE TRACE (NEGATIVE); LEUKOCYTE ESTERASE ,URINE 2+ (NEGATIVE); NITRITE,URINE NEGATIVE (NEGATIVE); PROTEIN,URINE 1+ (NEGATIVE)
[2019-09-14 21:04] LABS: BACTERIA,URINE FEW /HPF; RBC,URINE 0-2 /HPF; WBC,URINE TNTC /HPF
[2019-09-14] MEDS ORDERED: cefTRIAXone FOR IV USE 1,000 MG in WATER (STERILE) FOR INJECTION 10 ML IV ONE (21:15)
--- NOTE | 2019-09-14 22:00 | NUR ---
KARMAWEI Green admitted to room 424-1, with an admitting diagnosis of AMS, VOLUME DEPLETION, CHF, UTI, on 09/14/19 from ER via BED, accompanied by ER STAFF. and son, and pt introduced to surroundings, call light, bed controls, phone, TV, temperature control, lights, meal times, smoking policy, visitor policy, side rail policy, bathrooms and showers. Patient Rights given to patient in the handbook. KARMAWEI Green, and son verbalizes understanding that [facility] is not responsible for the loss or damage to any personal effects or valuables that are kept in the patients possession during their hospitalization.
[2019-09-14 22:12] VITALS: BP 163/72
[2019-09-14] MEDS: fluCOnazole (DIFLUCAN) 100 MG TAB PO SCH (23:51)
[2019-09-15 00:17] VITALS: BP 173/78
[2019-09-15 04:00] VITALS: BP 133/70
--- NOTE | 2019-09-15 06:30 | NUR ---
Dr. Damon notified of bladder scan showing residual of 538 mls. New order rec to straight cath x 1 if unable to void. also notified of DVT score at 7. Dr. javier pt takes three home medications of thinners and for day shift RN to call after medications are reconciled by [facility] staff for continuation. Addendum: 09/16/19 at 0526 by SHAHAB DENG RN Dr. javier pt takes three home medications of blood thinners and for day shift RN to call after medications are reconciled by [facility] staff for continuation.
[2019-09-15 06:56] LABS: BASOPHILS % (AUTO) 0 % (0-10); EOSINOPHILS # (AUTO) 0.2 10^3/uL (0.0-0.3); EOSINOPHILS % (AUTO) 1 % (0-10); HEMATOCRIT 34 % (40-54); HEMOGLOBIN 11.3 G/DL (13.3-17.7); LYMPHOCYTES # (AUTO) 2.6 X 10^3 (1.0-4.0); LYMPHOCYTES % (AUTO) 23 % (12-44); MEAN CORPUSCULAR HEMOGLOBIN 31 PG (25-34); MEAN CORPUSCULAR HGB CONC 33 G/DL (32-36); MEAN CORPUSCULAR VOLUME 94 FL (80-99); MEAN PLATELET VOLUME 11.4 FL (7.4-10.4); MONOCYTES # (AUTO) 1.2 X 10^3 (0.0-1.0); MONOCYTES % (AUTO) 10 % (0-12); NEUTROPHILS # (AUTO) 7.4 X 10^3 (1.8-7.8); NEUTROPHILS % (AUTO) 65 % (42-75); PLATELET COUNT 201 10^3/uL (130-400); RED CELL DISTRIBUTION WIDTH 12.6 % (10.0-14.5); WHITE BLOOD COUNT 11.4 10^3/uL (4.3-11.0)
[2019-09-15 07:21] LABS: ALANINE AMINOTRANSFERASE 13 U/L (0-55); ALBUMIN 2.8 GM/DL (3.2-4.5); ALKALINE PHOSPHATASE 119 U/L (40-136); BILIRUBIN,TOTAL 0.7 MG/DL (0.1-1.0); BUN/CREATININE RATIO 20; CARBON DIOXIDE 25 MMOL/L (21-32); CHLORIDE 104 MMOL/L (98-107); CREATININE SERUM 1.14 MG/DL (0.60-1.30); GFR ESTIMATED > 60; POTASSIUM 3.6 MMOL/L (3.6-5.0); SODIUM 138 MMOL/L (135-145); TOTAL PROTEIN 5.6 GM/DL (6.4-8.2)
[2019-09-15 07:23] LABS: GLUCOSE 59 MG/DL (70-105)
--- NOTE | 2019-09-15 07:45 | NUR ---
New order rec from Dr. Damon to decrease IVF to 50 mls/hr and MOM daily PRN for constipation.
--- NOTE | 2019-09-15 07:49 | Diagnostic Imaging Report ---
CHEST 1 VIEW, AP/PA ONLY INDICATION: Congestive heart failure, volume depletion. COMPARISON: 09/14/2019. FINDINGS: Left midlung zone linear atelectasis/scar is unchanged. No new opacities. Posterior lower lobes are poorly evaluated by portable radiography. Stable enlargement of cardiac silhouette. No pneumothorax or appreciable effusion. Stable left pectoral transvenous pacemaker. IMPRESSION: 1. Stable cardiomegaly without overt heart failure. Dictated by: Dictated on workstation # [id number]
--- NOTE | 2019-09-15 07:56 | History & Physical ---
History of Present Illness History of Present Illness Reason for visit/HPI Patient lives at home with . Patient the last 3 days has been little lethargic and weaker and confused. Patient not able to get up and walk around now. Patient has not been eating for the last 3 days. Patient dehydrated area Patient hypoglycemic.. Patient sleepy and hard to arouse. Patient has history of peripheral artery disease, Parkinson disease, dementia,. Patient recently had stents the right femoral artery. Patient dehydrated and diabetic Date of Admission Sep 14, 2019 at 21:12 Time Seen by a Provider: 07:51 I consulted on this patient on 09/15/19 07:51 Attending Physician Mando Kent DO Admitting Physician Mando Kent DO Consult Allergies and Home Medications Allergies Coded Allergies: No Known Drug Allergies (Unverified , 09/06/18) Home Medications Acetaminophen 500 Mg Tablet, 1,000 MG PO Q8H PRN for PAIN-MILD, (Reported) Amiodarone HCl 200 Mg Tablet, 200 MG PO DAILY, (Reported) Amlodipine Besylate 10 Mg Tablet, 5 MG PO DAILY PRN for BLOOD PRESSURE, (Reported) TAKES 1/2 OF A 10MG TAB TO EQUAL 5MG ONLY WHEN BLOOC PRESSURE IS >150 Aspirin 81 Mg Tablet.dr, 81 MG PO DAILY Prescribed by: SEBASTIÁN VALLE on 08/18/1910 Atorvastatin Calcium 40 Mg Tablet, 40 MG PO HS, (Reported) Bisacodyl 5 Mg Tablet.dr, 10 MG PO HS PRN for CONSTIPATION-1ST LINE, (Reported) Carbidopa/Levodopa 1 Each Tablet.er, 2 EACH PO 0800, (Reported) TAKES 2 TABS IN THE MORNING, 1 TAB AT 1300 AND 1 TAB AT BEDTIME Carbidopa/Levodopa 1 Each Tablet.er, 1 EACH PO 1300, (Reported) TAKES 2 TABS IN THE MORNING, 1 TAB AT 1300 AND 1 TAB AT BEDTIME Carbidopa/Levodopa 1 Each Tablet.er, 1 EACH PO HS, (Reported) TAKES 2 TABS IN THE MORNING, 1 TAB AT 1300 AND 1 TAB AT BEDTIME Clopidogrel Bisulfate 75 Mg Tablet, 75 MG PO DAILY Prescribed by: SEBASTIÁN VALLE on 08/18/19 0710 Gabapentin 300 Mg Capsule, 300 MG PO BID, (Reported) Glipizide 10 Mg Tablet, 5 MG PO DAILY, (Reported) TAKES 1/2 (10MG) TABLET Insulin Aspart 300 Units/3 Ml Solution, SQ AC, (Reported) Insulin Determir 1,000 Units/10 Ml Soln, 40 UNITS SQ HS, (Reported) Metoprolol Succinate 50 Mg Tab.er.24h, 50 MG PO HS, (Reported) Multivitamin 1 Each Tablet, 1 EACH PO DAILY, (Reported) [place]-3/Dha/Epa/Fish Oil 1 Each Capsule, 1 EACH PO BID, (Reported) Pantoprazole Sodium 40 Mg Granpkt.dr, 40 MG PO DAILY Prescribed by: SEBASTIÁN VALLE on 08/18/19 0711 Quinapril HCl 40 Mg Tablet, 40 MG PO DAILY, (Reported) Rivaroxaban 20 Mg Tablet, 20 MG PO DAILY@1700 Prescribed by: SEBASTIÁN VALLE on 08/18/19 0710 Tamsulosin HCl 0.4 Mg Cap, 0.8 MG PO 1730, (Reported) TAKES 2 (0.4MG) TO EQUAL 0.8MG, TAKE AFTER EVENING MEAL Patient Home Medication List Home Medication List Reviewed: No Past Zrteidn-Nmzyew-Wowmdn Hx Past Med/Social Hx: Reviewed Nursing Past Med/Soc Hx Patient Social History Marrital Status: Employed/Student: retired Alcohol Use: Denies Use Recreational Drug Use: No Smoking Status: Former Smoker Type Used: Pipe 2nd Hand Smoke Exposure: No Recent Foreign Travel: No Contact w/other who traveled: No Recent Hopitalizations: Yes Recent Infectious Disease Expo: No Immunizations Up To Date Date of Pneumonia Vaccine: Aug 17, 2016 Date of Influenza Vaccine: Aug 03, 2019 Seasonal Allergies Seasonal Allergies: No Past Medical History Surgeries: Coronary Stent Neurological: Dementia, Stroke Genitourinary: Benign Prostatic Hyperpl, Prostate Problems Endocrine: Diabetes, Insulin dep History of Blood Disorders: No Family History Alcoholism G8 BROTHER ( at age 46) FH: heart disease 19 FATHER Hypertension 19 MOTHER Myocardial infarction 19 FATHER ( at age 60) Review of Systems Constitutional: malaise, weakness EENTM: no symptoms reported Respiratory: no symptoms reported Cardiovascular: no symptoms reported Gastrointestinal: no symptoms reported Genitourinary: no symptoms reported Physical Exam Vital Signs Vital Signs - First Documented 09/14/19 09/14/19 18:57 21:40 Temp 36.4 Pulse 60 Resp 17 B/P (MAP) 88/53 (65) Pulse Ox 97 O2 Delivery Room Air Capillary Refill : Less Than 3 Seconds Height, Weight, BMI Height: 6'0.00" Weight: 177lbs. 9.6oz. 80.333011rq; 23.19 BMI Method:Stated General Appearance: No Apparent Distress, WD/WN Eyes: Bilateral Eye Normal Inspection HEENT: Normal ENT Inspection Neck: Full Range of Motion, Normal Inspection Respiratory: Lungs Clear, No Accessory Muscle Use, No Respiratory Distress Cardiovascular: Regular Rate, Rhythm Gastrointestinal: Non Tender, Soft Assessment/Plan Assessment and Plan Dehydration. Recent falling at home. Parkinson disease. Peripheral artery disease. Confusion. Diabetes. Not eating the last 3 days. Inability to ambulate. Renal insufficiency acute. Coronary artery disease Admission Diagnosis Admission Status: Inpatient Order (span 2 midnights) Reason for Inpatient Admission: Hypoglycemia. Weakness. Dehydration. Hypoglycemia. Not eating. Confusion. Inability to walk Clinical Quality Measures DVT/VTE Risk/Contraindication: Risk Factor Score Per Nursin RFS Level Per Nursing on Admit: 4+=Very High MANDO KENT DO Sep 15, 2019 07:56 POS
[2019-09-15 08:00] VITALS: BP 163/76
[2019-09-15] MEDS ORDERED: MILK OF MAGNESIA 400 MG/5 ML 30 ML UDC PO PRN (08:00)
[2019-09-15] MEDS ORDERED: OLME40TA12 PO (08:05)
[2019-09-15] MEDS ORDERED: MTP25TSR PO (09:43)
[2019-09-15] MEDS ORDERED: FURO20TA4 PO (09:43)
[2019-09-15] MEDS ORDERED: POTA10CA43 PO (09:43)
[2019-09-15] MEDS ORDERED: PANT40TA3 PO (09:43)
[2019-09-15] MEDS ORDERED: CLOP75TA69 PO (09:43)
[2019-09-15] MEDS ORDERED: ASPI-983 PO (09:43)
--- NOTE | 2019-09-15 09:49 | Physical Therapy Evaluation ---
PT Evaluation-General Medical Diagnosis Admission Date Sep 14, 2019 at 21:12 Medical Diagnosis: AMS, volume depletion, UTI Onset Date: Sep 14, 2019 Therapy Diagnosis Therapy Diagnosis: weakness Height/Weight Height (Feet): 6 Height (Inches): 0.00 Weight (Pounds): 177 Weight (Ounces): 9.6 Precautions Precautions/Isolations: Fall Prevention, Standard Precautions Weight Bear Status Right Lower Extremity: Right Weight Bearing/Tolerated Left Lower Extremity: Left Weight Bearing/Tolerated Referral Physician: Nelson Reason for Referral: Evaluation/Treatment Medical History Pertinent Medical History: Atrial Fib, CAD, CVA, DM, Dementia, Parkinson's Current History ER secondary to altered mental status, weakness, and falls Reviewed History: Yes Social History Home: Single Level Current Living Status: Spouse Entry Into Home: Level Entry Prior Prior Level of Function SCALE: Activities may be completed with or without assistive devices. 4-Woawdiznyp-mbxkyij completes the activity by him/herself with no assistance from a helper. 5-Set-up or Clean-up Assistance-helper sets up or cleans up; patient completes activity. [place] assists only prior to or following the activity. 4-Supervision or Touching Assistance-helper provides verbal cues and/or touching/steadying and/or contact guard assistance as patient completes activity. Assistance may be provided throughout the activity or intermittently. 3-Partial/Moderate Assistance-helper does LESS THAN HALF the effort. [place] lifts, holds or supports trunk or limbs, but provides less than half the effort. 2-Substantial/Maximal Assistance-helper does MORE THAN HALF the effort. [place] lifts or holds trunk or limbs and provides more than half the effort. 3-Clnvgxgbh-cpfcdt does ALL the effort. Patient does none of the effort to complete the activity. Or, the assistance of 2 or more helpers is required for the patient to complete the activity. If activity was not attempted, code reason: 7-Patient Refused. 9-Not Applicable-not attempted and the patient did not perform the activity before the current illness, exacerbation or injury. 10-Not Attempted due to Environmental Limitations-(lack of equipment, weather restraints, etc.). 88-Not Attempted due to Medical Conditions or Safety Concerns. Bed Mobility: 6 Transfers (B,C,W/C): 6 Gait: 6 Indoor Mobility (Ambulation): Independent Prior Devices Use: Walker PT Evaluation-Current Subjective Patient agrees to PT. Agrees to walk and transfer to chair. Patient reports no pain. Pain Numeric Pain Scale: 0-No Pain Location: No Pain Reported Objective Patient Orientation: Normal For Age Attachments: IV ROM/Strength ROM Lower Extremities R WFL; L knee flexion limited Strength Lower Extremities Grossly 3/5 bilaterally Integumentary/Posture Integumentary See nursing notes Bowel Incontinence: No Bladder Incontinence: No Posture Slight forward flexion Neuromuscular (Tone, Coordination, Reflexes) Parkinson's Sensory Vision: Functional Hearing: Functional Transfers Roll Left to Right (QC): 4 Sit to Lying (QC): 4 Lying to Sitting/Side of Bed(Q: 4 Sit to Stand (QC): 3 Chair/Ymx-mp-Zbtcp Xfer(QC): 3 Car Transfer (QC): 10 SBA/verbal cues bed mobility; Ingrid STS and transfers Gait Does the Patient Walk?: Yes Mode of Locomotion: Walk Anticipated Mode of Locomotion: Walk Walk 10 feet (QC): 3 Walk 50 ft with 2 Turns(QC): 3 Walk 150 ft (QC): 88 Walking 10ft/uneven surface-QC: 88 Distance: 200' Gait Assistive Device: FWW Comments/Gait Description Slow pace, short even steps Wheelchair Training Does the Pt Use a Wheelchair?: No Wheel 50 ft with 2 turns (QC): 9 Wheel 150 ft (QC): 9 Type of Wheelchair: Manual Stairs 1 Step (curb) (QC): 88 4 Steps (QC): 9 12 Steps (QC): 9 Balance Sitting Static: Normal Sitting Dynamic: Normal Standing Static: Normal Standing Dynamic: Normal Picking up an Object (QC): 88 Assessment/Needs Patient able to complete bed mobility with SBA and some verbal cues. Limited instructions and explanations d/t dementia and Parkinson's. Ingrid to stand from EOB and ambulate 200' in hallway with FWW at a slow pace but with short, even steps. Patient seated in chair with legs elevated and needs met at conclusion of treatment. Rehab Potential: Fair PT Portfolio Manager Goals Halfway Goals PT Portfolio Manager Goals Time Frame: Sep 30, 2019 Roll Left & Right (QC): 6 Sit to Lying (QC): 6 Lying-Sitting on Side/Bed(QC): 6 Sit to Stand (QC): 6 Chair/Guc-mx-Yczkr Xfer(QC): 6 Toilet Transfer (QC): 6 Car Transfer (QC): 6 Does the Patient Walk: Yes Walk 10 feet (QC): 6 Walk 50ft with 2 Turns (QC): 6 Walk 150 ft (QC): 6 Walking 10ft on Uneven Surface: 6 1 Step (curb) (QC): 6 4 Steps (QC): 9 12 Steps (QC): 9 Picking up an Object (QC): 6 Does the Pt use WC or Scooter?: No Type: N/A Type: N/A PT Plan Problem List Problem List: Activity Tolerance, Functional Strength, Safety, Balance, Gait, Transfer, Bed Mobility Treatment/Plan Treatment Plan: Continue Plan of Care Treatment Plan: Bed Mobility, Education, Functional Activity Navya, Functional Strength, Gait, Safety, Therapeutic Exercise, Transfers Treatment Duration: Sep 30, 2019 Frequency: 6 times per week Estimated Hrs Per Day: .25 hour per day Patient and/or Family Agrees t: Yes Time/GCodes Time In: 837 Time Out: 850 Total Billed Treatment Time: 13 [facility] Sep 15, 2019 09:49 POS
[2019-09-15] MEDS ORDERED: RIVA20TA PO (09:56)
[2019-09-15] MEDS ORDERED: DOXY100T2 PO (09:57)
--- NOTE | 2019-09-15 10:19 | NUR ---
CALLED AND SPOKE WITH THE PATIENTS ABOUT MEDICATIONS. WE WENT OVER THE LIST THAT WAS BROUGHT IN WELL COMPARING IT WITH THE EXT MED HX. 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 HE FILLED GLIPIZIDE 10MG #90 06-15-19 - HE ONLY TAKES 1/2 TAB DAILY THEY FILLED QUINAPRIL 40MG #90 06-15-19 HOWEVER THIS HAS BEEN STOPPED, HE HAS BEEN TAKING BENICAR 40MG DAILY, THIS WAS HIS WIFES SUPPLY HE WAS TAKING TO SEE IF IT WOULD WORK, NOW THAT IT HAS BEEN WORKING THEY WILL GET A PRESCRIPTION FILLED FOR HIM. LIPITOR SHOWS IT HAS NOT BEEN FILLED SINCE 04-23-19 #90 THROUGH [facility] HOWEVER STATES THEY STILL HAVE SOME AND DON'T MISS DOSES BUT DOES MENTION HUMAN FILLS IT EARLY A LOT OF THE TIME SO THEY HAVE A SUPPLY BUILT UP ON HAND. HE TAKES 1/2 TAB OF AMLODIPINE 10MG ONLY IF BP IS ABOVE 150 - THIS WAS LAST FILLED #90 12-14-18. OTC MEDS: FISH OIL BID MTV DAILY ASPIRIN 81MG HS TYLENOL PRN BISACODYL SUPPOSITORY PRN
--- NOTE | 2019-09-15 10:42 | Consultation-Cardiology ---
HPI-Cardiology Cardiology Consultation Date of Consultation 09/15/19 Date of Admission Time Seen by Provider: 07:51 Indication: PVD HPI Patient is a 78-year-old gentleman with history of severe peripheral vascular disease, coronary artery disease, ventricular tachycardia, CHF, sick sinus syndrome status post permanent pacemaker placement. Presented to the ER with family with complaints of increased altered mental status over the past 3 days. Diagnosed with UTI and started on antibiotic. Noted to have diminished pulse in the left foot. Patient has known severe peripheral vascular disease, had recent intervention to right lower extremity last month. Currently denying any chest pain or palpitation. Denies any claudication pain. Wound to the right lower extremity is slowly improving. No other complaints at this time. Home Medications & Allergies Allergies: Coded Allergies: No Known Drug Allergies (Unverified , 09/06/18) Home Medication List Reviewed: Yes PWR-Rhqkwt-Zkgwfs Hx Patient Social History Marital Status: Employed/Student: retired Alcohol Use: Denies Use Recreational Drug Use: No Smoking Status: Former Smoker Type Used: Pipe 2nd Hand Smoke Exposure: No Recent Foreign Travel: No Recent Infectious Disease Expo: No Recent Hopitalizations: Yes Immunizations Up To Date Date of Pneumonia Vaccine: Aug 17, 2016 Date of Influenza Vaccine: Aug 03, 2019 Past Medical History CAD, CHF, hypertension, sick sinus syndrome, PVD, V. tach Family Medical History Family History: Alcoholism G8 BROTHER ( at age 46) FH: heart disease 19 FATHER Hypertension 19 MOTHER Myocardial infarction 19 FATHER ( at age 60) Review of Systems-General Review of Systems Constitutional: malaise, weakness EENTM: no symptoms reported; No blurred vision Respiratory: no symptoms reported, see HPI; No dyspnea on exertion, No short of breath Cardiovascular: no symptoms reported, see HPI; No chest pain, No edema; Hx of Intervention; No palpitations, No syncope; vascular heart diseas Gastrointestinal: no symptoms reported Genitourinary: no symptoms reported Musculoskeletal: No back pain, No joint pain Skin: No lesions, No rash Reviewed Test Results Reviewed Test Results Lab Laboratory Tests 09/14/19 18:35: White Blood Count 14.3H, Red Blood Count 3.98L, Hemoglobin 12.3L, Hematocrit 37L , Mean Corpuscular Volume 94, Mean Corpuscular Hemoglobin 31, Mean Corpuscular Hemoglobin Concent 33, Red Cell Distribution Width 13.0, Platelet Count 237, Mean Platelet Volume 11.6H, Neutrophils (%) (Auto) 65, Lymphocytes (%) (Auto) 26, Monocytes (%) (Auto) 8, Eosinophils (%) (Auto) 2, Basophils (%) (Auto) 0, Neutrophils # (Auto) 9.3H, Lymphocytes # (Auto) 3.7, Monocytes # (Auto) 1.1H, Eosinophils # (Auto) 0.2, Basophils # (Auto) 0.0, Neutrophils % (Manual) 70, Lymphocytes % (Manual) 21, Monocytes % (Manual) 6, Eosinophils % (Manual) 3, Basophils % (Manual) , Blood Morphology Comment NORMAL, Prothrombin Time 31.5H, INR Comment 2.9H, Sodium Level 137, Potassium Level 4.4, Chloride Level 100, Carbon Dioxide Level 25, Anion Gap 12, Blood Urea Nitrogen 26H, Creatinine 1.49H , Estimat Glomerular Filtration Rate 46, BUN/Creatinine Ratio 17, Glucose Level 91, Lactic Acid Level 1.98, Calcium Level 9.3, Corrected Calcium 10.2H, Total Bilirubin 0.8, Aspartate Amino Transf (AST/SGOT) 23, Alanine Aminotransferase (ALT/SGPT) < 6, Alkaline Phosphatase 139H, Total Protein 6.3L, Albumin 2.9L, Smear Scan YES 09/14/19 20:27: Urine Color ORANGE, Urine Clarity CLOUDY, Urine pH 6.0, Urine Specific [place] 1.020, Urine Protein 1+H, Urine Glucose (UA) 1+H, Urine Ketones TRACEH, Urine Nitrite NEGATIVE, Urine Bilirubin NEGATIVE, Urine Urobilinogen 0.2, Urine Leukocyte Esterase 2+H, Urine RBC (Auto) TRACE-I, Urine RBC 0-2, Urine WBC TNTCH , Urine Crystals NONE, Urine Bacteria FEWH, Urine Casts NONE, Urine Mucus NEGATIVE, Urine Culture Indicated YES 09/15/19 01:58: Glucometer 57*L 09/15/19 02:42: Glucometer 76 09/15/19 04:33: Glucometer 92 09/15/19 06:45: White Blood Count 11.4H, Red Blood Count 3.63L, Hemoglobin 11.3L, Hematocrit 34L , Mean Corpuscular Volume 94, Mean Corpuscular Hemoglobin 31, Mean Corpuscular Hemoglobin Concent 33, Red Cell Distribution Width 12.6, Platelet Count 201, Mean Platelet Volume 11.4H, Neutrophils (%) (Auto) 65, Lymphocytes (%) (Auto) 23, Monocytes (%) (Auto) 10, Eosinophils (%) (Auto) 1, Basophils (%) (Auto) 0, Neutrophils # (Auto) 7.4, Lymphocytes # (Auto) 2.6, Monocytes # (Auto) 1.2H, Eosinophils # (Auto) 0.2, Basophils # (Auto) 0.0, Sodium Level 138, Potassium Level 3.6, Chloride Level 104, Carbon Dioxide Level 25, Anion Gap 9, Blood Urea Nitrogen 23H, Creatinine 1.14, Estimat Glomerular Filtration Rate > 60, BUN/Creatinine Ratio 20, Glucose Level 59*L, Lactic Acid Level 1.01, Calcium Level 9.0, Corrected Calcium 10.0, Total Bilirubin 0.7, Aspartate Amino Transf (AST/SGOT) 20, Alanine Aminotransferase (ALT/SGPT) 13, Alkaline Phosphatase 119, Total Protein 5.6L, Albumin 2.8L 09/15/19 07:51: Glucometer 58*L 09/15/19 08:56: Glucometer 122H Physical Exam Physical Exam Vital Signs Vital Signs - First Documented 09/14/19 09/14/19 18:57 21:40 Temp 36.4 Pulse 60 Resp 17 B/P (MAP) 88/53 (65) Pulse Ox 97 O2 Delivery Room Air Capillary Refill : Less Than 3 Seconds Height, Weight, BMI Height: 6'0.00" Weight: 177lbs. 9.6oz. 80.963176wh; 23.19 BMI Method:Stated General Appearance: No Apparent Distress, WD/WN Eyes: Bilateral Eye Normal Inspection, Bilateral Eye PERRL, Bilateral Eye EOMI HEENT: Normal ENT Inspection Neck: Full Range of Motion, Normal Inspection Respiratory: Lungs Clear, No Accessory Muscle Use, No Respiratory Distress Cardiovascular: Regular Rate, Rhythm, Systolic Murmur, Gallop/S3 Gastrointestinal: Non Tender, Soft Back: No CVA Tenderness Extremity: Normal Capillary Refill, Normal Inspection, Other (RLE ulcer 1-2cm lateral malleolus with overlying eschar no surrounding erythema) Neurologic/Psychiatric: Alert, scaffolder II-XII Norm as Tested, Disoriented Skin: Normal Color, Warm/Dry A/P-Cardiology Admission Diagnosis AMS UTI PVD SSS CAD Assessment/Plan AMS- appears to be back to baseline at this time, continue to monitor UTI- started on antibiotic, management per PCP Severe Peripheral vascular disease, had nonhealing wound right lower extremity, underwent peripheral angiogram on August 17, 2019 revealing total occlusion of right SFA, successful angioplasty then deployment of 2 Supera stent [id number] and 6x100 with excellent results and flow. Severe disease at the distal posterior tibial artery proximal anterior tibial artery. Heavily calcified left SFA with multiple segments of moderate to severe disease with occluded anterior tibial artery. Patient is maintained on Plavix and aspirin. Wound to right lower extremity is healing. Patient has known severe disease on the left side, we will continue with conservative management unless patient becomes symptomatic due to his comorbidities. Currently not having any symptoms, does not have any ulceration to left lower extremity. Continue to monitor Sick sinus syndrome, history of episodes of bradycardia with complete heart block, frequent PVCs, ventricular bigeminy and ventricular couplets, short PAT's. Status post permanent pacemaker implantation April 2015, using a UroSens device Advisa DR GONZALEZ, last interrogation was done in June 2019 showing good sensing and capture activity, longevity for the battery is 4 years, no arrhythmia was detected. Continue to monitor Nonsustained ventricular tachycardia, has been maintained on amiodarone 200 mg daily. No recent arrhythmia on pacemaker interrogation, continue to monitor. Paroxysmal atrial fibrillation, maintained on Amiodarone, continue to monitor. [id number] score of 6, high risk, yearly risk of stroke without OAC is 9.8%. Maintained on Xarelto, continue to monitor Coronary artery disease, multiple interventions in the past, most recent cardiac catheterization done March 14, 2015 revealed extensive coronary artery disease, heavily calcified system, with 40 percent distal left main coronary artery stenosis. 3 stents in LAD proximally with 50-60 percent in-stent restenosis. Distal LAD had 95 percent stenosis followed by 80 percent stenosis long segment, very small artery not amendable to intervention. Total occlusion of the first obtuse marginal branch filled by collaterals. Patent stent in the proximal mid second OM branch with moderate disease in the distal proper circumflex artery. Patent stent in the RCA with 50 percent proximal right coronary artery stenosis and 50-60 distal right coronary artery stenosis. Asymptomatic, continue to monitor Stress test in July 2016 showed fixed defect involving the whole inferior wall and inferoapical segment with dilated left ventricle, inferior wall hypokinesia, Ejection fraction 54 percent. Echocardiogram showed ejection f raction 60 percent, dilated left atrium, mild to moderate mitral regurgitation and pulmonary artery pressure of 35 mmHg. continue to monitor, Hypertension, has history of orthostatic hypotension. Restart home blood pressure medications and continue to monitor closely. Hyperlipidemia, maintained on Crestor, continue to monitor lipids. History of CVA in 2010, mild residual right sided weakness, episodes of confusion occurred over the last year where patient became confused and drove over once to [place] and once to [place]. It was felt that it was a global ischemic attack with confusion, workup at that time was negative. He was seen by Dr. Jiménez and started on Dilantin, the dose was increased by Dr. Damon, followed and managed by primary care physician Congestive heart failure, EF 45-50 percent, as well as diastolic dysfunction per most recent 2-D echocardiogram done 2018, continue on current medications and continue to monitor. Diabetes mellitus, followed and managed by primary care physician Carotid stenosis, monitored by Dr. Simmons's office Dementia, managed by primary care physician. Ex-Tobaccoism, patient smokes pipe, he stopped smoking in October, encouraged to continue with smoking cessation Peripheral neuropathy, maintained on gabapentin. Continue on current medication, continue to monitor Sleep apnea, severe on sleep study in October 2015, does not use his machine. Thank you for allowing us to participate the management of Mr. Nassar. This is Yee Herrmann PA-C, as a scribe for Dr. Karimi. Patient was seen and evaluated with Yee, examination performed, management plan was discussed, agree with the current scribed note, I made few changes to the note using Italic font Patient was sitting in a chair, comfortable, confused On examination lungs were clear to auscultation, heart is regular Receiving treatment for sepsis, change in mental status Regarding his peripheral arterial disease although he had diminished pulse in the left leg, he is asymptomatic, he has significant disease and will consider intervention if needed if he becomes symptomatic or develop any ulceration Regarding the right leg it appear to be healing slowly, I discussed management plan with Dr. Quintanilla Re: Coronary artery disease will continue with conservative management and monitor Clinical Quality Measures DVT/VTE Risk/Contraindication: Risk Factor Score Per Nursin RFS Level Per Nursing on Admit: 4+=Very High Contraindications-Pharm: Other *list below* YEE CLINTON Sep 15, 2019 10:42 SEBASTIÁN ZAVALETA MD Sep 15, 2019 16:52 POS
[2019-09-15] MEDS: NS IV 1000 ML 1,000 ML IV SCH (11:28)
[2019-09-15] MEDS: inSUlin ASPART (NovoLOG) 1 UNIT/0.01 ML (CHARGE PER UNIT) SC SCH ×3 (11:29→21:06)
[2019-09-15 12:00] VITALS: BP 168/64
[2019-09-15] MEDS ORDERED: LIDOCAINE UROJET 2% GEL 10 ML PKG ONE (13:39)
--- NOTE | 2019-09-15 14:00 | Occ Therapy Progress Note ---
Therapy Progress Note OT evaluation received and chart review complete. OT attempted to assess pt, but nursing was in room performing catheterization. OT will check back and assess as time allows. 1, visit 13:45 SHITAL LLANES OT Sep 15, 2019 14:00 POS
--- NOTE | 2019-09-15 15:07 | Occupational Therapy Eval ---
OT Evaluation-General/PLF Medical Diagnosis Admission Date Sep 14, 2019 at 21:12 Medical Diagnosis: AMS, volume depletion, UTI Onset Date: Sep 14, 2019 Therapy Diagnosis Therapy Diagnosis: Decreased ADL function Height/Weight Height (Feet): 6 Height (Inches): 0.00 Weight (Pounds): 177 Weight (Ounces): 9.6 Precautions Precautions/Isolations: Fall Prevention, Standard Precautions Safety Interventions: Bed Exit Alarm Weight Bear Status Weight Bearing Restriction: Weight Bearing/Tolerated Referral Physician: Nelson Referral Reason: Activity Tolerance, Self Care, Evaluation/Treatment, Strengthening/ROM Medical History Pertinent Medical History: Atrial Fib, CAD, CVA, DM, Dementia, Parkinson's Additional Medical History PAD, recent stents in femoral artery, CVA, DM, pacemaker Current History dehydration/ AMS, hypoglycemia Reviewed History: Yes Social History Home: Single Level Current Living Status: Spouse Entry Into Home: Level Entry Steps Into Home: 0 Steps Inside Home: 0 ADL-Prior Level of Function SCALE: Activities may be completed with or without assistive devices. 8-Dyvibrdbny-lvnysyt completes the activity by him/herself with no assistance from a helper. 5-Set-up or Clean-up Assistance-helper sets up or cleans up; patient completes activity. Heidrick assists only prior to or following the activity. 4-Supervision or Touching Assistance-helper provides verbal cues and/or touching/steadying and/or contact guard assistance as patient completes activity. Assistance may be provided throughout the activity or intermittently. 3-Partial/Moderate Assistance-helper does LESS THAN HALF the effort. Heidrick lifts, holds or supports trunk or limbs, but provides less than half the effort. 2-Substantial/Maximal Assistance-helper does MORE THAN HALF the effort. Heidrick lifts or holds trunk or limbs and provides more than half the effort. 0-Eguujowzc-rxsuoj does ALL the effort. Patient does none of the effort to complete the activity. Or, the assistance of 2 or more helpers is required for the patient to complete the activity. If activity was not attempted, code reason: 7-Patient Refused. 9-Not Applicable-not attempted and the patient did not perform the activity before the current illness, exacerbation or injury. 10-Not Attempted due to Environmental Limitations-(lack of equipment, weather restraints, etc.). 88-Not Attempted due to Medical Conditions or Safety Concerns. ADL PLOF Comments Pt states IND without use of AE Self Care: Independent Functional Cognition: Unknown DME/Equipment: Tub/Shower Occupation: retired Drive Self: Yes OT Current Status Subjective Pt seen asleep in bed, wakes with vocals. Pt agreeable to OT tx session, denies pain. Mental Status/Objective Patient Orientation: Person, Place Attachments: IV Current Glasses/Contacts: No Hearing Aids: No Dentures/Partials: Yes Hand Dominance: Left Upper Extremity ROM WFL BUE Upper Extremity Coordination WFL BUE Upper Extremity Sensation WFL BUE Upper Extremity Strength unable to test due to confusion. ADL-Treatment Eating (QC): 6 Oral Hygiene (QC): 7 Shower/Bathe Self (QC): 7 Upper Body Dressing (QC): 7 Lower Body Dressing (QC): 7 On/Off Footwear (QC): 7 Toileting Hygiene (QC): 7 Toilet Transfer (QC): 7 Other Treatments Pt seen in bed, completes evaluation while seated upright. Pt denies out of bed/ moving to chair or other ADL tasks. Pt confused with OT instruction for MMT, able to follow other directions and answer questions clearly. Pt states he lives in house with spouse, IND without use of FWW or cane, states tub/ shower without gb or shower chair. Pt educated on OT role and process and goals to increase IND within ADL tasks. Pt agreeable to OT tx sessions. Pt left in bed, call light in reach, all needs met. Education OT Patient Education: Correct positioning, Purpose of tx/functional activities, Rehab process Teaching Recipient: Patient Teaching Methods: Discussion Response to Teaching: Verbalize Understanding OT Chcf Goals Chcf Goals Time Frame: Sep 22, 2019 Eating (QC): 6 Oral Hygiene (QC): 6 Toileting Hygiene (QC): 6 Shower/Bathe Self (QC): 6 Upper Body Dressing (QC): 6 Lower Body Dressing (QC): 6 On/Off Footwear (QC): 6 Additional Goals: 1-Demonstrate ADL Tasks, 2-Verbalize Understanding, 3- ImproveStrength/Navya 1=Demonstrate adherence to instructed precautions during ADL tasks. 2=Patient will verbalize/demonstrate understanding of assistive devices/modifications for ADL. 3=Patient will improve strength/tolerance for activity to enable patient to perform ADL's. OT Education/Plan Problem List/Assessment Assessment: Decreased Activ Tolerance, Decreased UE Strength, Impaired Cognition, Impaired Funct Balance, Impaired I ADL's, Impaired Self-Care Skills Discharge Recommendations Plan/Recommendations: Continue POC Equpiment Recommendations-D/C: Rails on Tub/Shower, Bath Chair Treatment Plan/Plan of Care Treatment,Training & Education: Yes Patient would benefit from OT for education, treatment and training to promote independence in ADL's, mobility, safety and/or upper extremity function for ADL's. Plan of Care: ADL Retraining, Caregiver Training, Functional Mobility, UE Funct Exercise/Act Treatment Duration: Sep 22, 2019 Frequency: 5 times per week Estimated Hrs Per Day: .25 hour per day Agreement: Yes Rehab Potential: Fair Time/GCodes Start Time: 14:50 Stop Time: 14:58 Total Time Billed (hr/min): 8 Billed Treatment Time 1, EVM (8) TYRA ALEJO OTR Sep 15, 2019 15:07 POS
--- NOTE | 2019-09-15 15:17 | Wound Care Assessment ---
Wound Care Assessment Date Seen by Provider: Sep 15, 2019 Time Seen by Provider: 15:00 Chief Complaint Ulcers R ankle, mid-back and sacral area. HPI The patient is a 78 year old male with dementia and limited mobility with pressure injuries of the R lateral malleolus, mid back and a stage 1 injury of the sacral area. Past Medical History: Admits Diabetes Type II, Admits Heart Disease Dementia Smoking Status: Former Smoker Recreational Drug Use: No Alcohol Use: Denies Use Review of Systems Pulmonary: No Dyspnea Cardiovascular: No: Chest Pain Exam Vital Signs Date Time Temp Pulse Resp B/P (MAP) Pulse Ox O2 Delivery O2 Flow Rate FiO2 09/15/19 12:00 36.1 72 18 168/64 (98) 92 Room Air Capillary Refill : Less Than 3 Seconds General Appearance: mild distress Respiratory: no respiratory distress Skin: other (superficial pressure injuries of R anlke, back and sacrum) Results Laboratory Tests 09/14/19 18:35: White Blood Count 14.3H, Red Blood Count 3.98L, Hemoglobin 12.3L, Hematocrit 37L , Mean Corpuscular Volume 94, Mean Corpuscular Hemoglobin 31, Mean Corpuscular Hemoglobin Concent 33, Red Cell Distribution Width 13.0, Platelet Count 237, Mean Platelet Volume 11.6H, Neutrophils (%) (Auto) 65, Lymphocytes (%) (Auto) 26, Monocytes (%) (Auto) 8, Eosinophils (%) (Auto) 2, Basophils (%) (Auto) 0, Neutrophils # (Auto) 9.3H, Lymphocytes # (Auto) 3.7, Monocytes # (Auto) 1.1H, Eosinophils # (Auto) 0.2, Basophils # (Auto) 0.0, Neutrophils % (Manual) 70, Lymphocytes % (Manual) 21, Monocytes % (Manual) 6, Eosinophils % (Manual) 3, Basophils % (Manual) , Blood Morphology Comment NORMAL, Prothrombin Time 31.5H, INR Comment 2.9H, Sodium Level 137, Potassium Level 4.4, Chloride Level 100, Carbon Dioxide Level 25, Anion Gap 12, Blood Urea Nitrogen 26H, Creatinine 1.49H , Estimat Glomerular Filtration Rate 46, BUN/Creatinine Ratio 17, Glucose Level 91, Lactic Acid Level 1.98, Calcium Level 9.3, Corrected Calcium 10.2H, Total Bilirubin 0.8, Aspartate Amino Transf (AST/SGOT) 23, Alanine Aminotransferase (ALT/SGPT) < 6, Alkaline Phosphatase 139H, Total Protein 6.3L, Albumin 2.9L, Smear Scan YES 09/14/19 20:27: Urine Color ORANGE, Urine Clarity CLOUDY, Urine pH 6.0, Urine Specific [place] 1.020, Urine Protein 1+H, Urine Glucose (UA) 1+H, Urine Ketones TRACEH, Urine Nitrite NEGATIVE, Urine Bilirubin NEGATIVE, Urine Urobilinogen 0.2, Urine Leukocyte Esterase 2+H, Urine RBC (Auto) TRACE-I, Urine RBC 0-2, Urine WBC TNTCH , Urine Crystals NONE, Urine Bacteria FEWH, Urine Casts NONE, Urine Mucus NEGATIVE, Urine Culture Indicated YES 09/15/19 01:58: Glucometer 57*L 09/15/19 02:42: Glucometer 76 09/15/19 04:33: Glucometer 92 09/15/19 06:45: White Blood Count 11.4H, Red Blood Count 3.63L, Hemoglobin 11.3L, Hematocrit 34L , Mean Corpuscular Volume 94, Mean Corpuscular Hemoglobin 31, Mean Corpuscular Hemoglobin Concent 33, Red Cell Distribution Width 12.6, Platelet Count 201, Mean Platelet Volume 11.4H, Neutrophils (%) (Auto) 65, Lymphocytes (%) (Auto) 23, Monocytes (%) (Auto) 10, Eosinophils (%) (Auto) 1, Basophils (%) (Auto) 0, Neutrophils # (Auto) 7.4, Lymphocytes # (Auto) 2.6, Monocytes # (Auto) 1.2H, Eosinophils # (Auto) 0.2, Basophils # (Auto) 0.0, Sodium Level 138, Potassium Level 3.6, Chloride Level 104, Carbon Dioxide Level 25, Anion Gap 9, Blood Urea Nitrogen 23H, Creatinine 1.14, Estimat Glomerular Filtration Rate > 60, BUN/Creatinine Ratio 20, Glucose Level 59*L, Lactic Acid Level 1.01, Calcium Level 9.0, Corrected Calcium 10.0, Total Bilirubin 0.7, Aspartate Amino Transf (AST/SGOT) 20, Alanine Aminotransferase (ALT/SGPT) 13, Alkaline Phosphatase 119, Total Protein 5.6L, Albumin 2.8L 09/15/19 07:51: Glucometer 58*L 09/15/19 08:56: Glucometer 122H 09/15/19 11:04: Glucometer 137H Microbiology 09/14/19 Blood Culture - Preliminary, Resulted No growth Microbiology 09/14/19 Blood Culture - Preliminary, Resulted No growth 09/14/19 Blood Culture - Preliminary, Resulted No growth Assessment/Plan/Dx 1 Pressure injuries of uncertain behavior of ankle, back and sacrum. Plan: Off-loading and moisture control urged. VICKIE STAPLETON MD Sep 15, 2019 15:17
[2019-09-15] MEDS ORDERED: ACETAMINOPHEN 500 MG TAB (TYLENOL) PO PRN (15:30)
[2019-09-15 16:26] VITALS: BP 168/67
[2019-09-15] MEDS: RIVAROXABAN 20 MG TABLET (XARELTO) PO SCH (18:31)
[2019-09-15] MEDS: TAMSULOSIN 0.4 MG (FLOMAX) CAP PO SCH (18:36)
[2019-09-15 19:11] VITALS: BP 171/72
[2019-09-15] MEDS ORDERED: CLOPIDOGREL 75 MG (PLAVIX) TABLET ONE (19:29)
[2019-09-15] MEDS: cefTRIAXone 1,000 MG/SWFI 10 ML IV PUSH IV SCH ×2 (20:19)
[2019-09-15] MEDS: ASPIRIN E.C. 81 MG (ECOTRIN) TAB PO SCH (20:19)
[2019-09-15] MEDS: GABAPENTIN 300 MG (NEURONTIN) CAP PO SCH (20:19)
[2019-09-15] MEDS: CLOPIDOGREL 75 MG (PLAVIX) TABLET PO SCH (20:19)
[2019-09-15] MEDS: SINEMET CR 50/200 (CARBIDOPA/LEVODOPA SA) TAB PO SCH (20:19)
[2019-09-15] MEDS: fluCOnazole (DIFLUCAN) 100 MG TAB PO SCH (22:32)
[2019-09-16] VITALS (7 sets, daily range): BP systolic 129–189; BP diastolic 64–89
[2019-09-16 05:39] LABS: HEMOGLOBIN 9.9 G/DL (13.3-17.7); MEAN PLATELET VOLUME 11.8 FL (7.4-10.4); RED CELL DISTRIBUTION WIDTH 12.4 % (10.0-14.5); WHITE BLOOD COUNT 6.5 10^3/uL (4.3-11.0)
[2019-09-16 06:09] LABS: ALANINE AMINOTRANSFERASE < 6 U/L (0-55); ALBUMIN 2.5 GM/DL (3.2-4.5); ALKALINE PHOSPHATASE 102 U/L (40-136); BILIRUBIN,TOTAL 0.8 MG/DL (0.1-1.0); BUN/CREATININE RATIO 20; CALCIUM 8.6 MG/DL (8.5-10.1); CARBON DIOXIDE 23 MMOL/L (21-32); CHLORIDE 106 MMOL/L (98-107); CREATININE SERUM 0.93 MG/DL (0.60-1.30); GFR ESTIMATED > 60; POTASSIUM 3.7 MMOL/L (3.6-5.0); SODIUM 137 MMOL/L (135-145); TOTAL PROTEIN 5.1 GM/DL (6.4-8.2)
[2019-09-16 06:17] LABS: GLUCOSE 50 MG/DL (70-105)
--- NOTE | 2019-09-16 06:30 | NUR ---
Dr. Damon notified of bladder scan at 757 mls residual and 100 mls voided after bladder scan. New orders rec to DC IVF; Consult Dr. Villanueva for retention; bladder scan q 4 hr and straight cath for residual > 500 mls; collect UA and send to lab.
[2019-09-16] MEDS: inSUlin ASPART (NovoLOG) 1 UNIT/0.01 ML (CHARGE PER UNIT) SC SCH ×4 (06:53→20:19)
[2019-09-16 06:57] LABS: BILIRUBIN,URINE NEGATIVE (NEGATIVE); CLARITY,URINE CLEAR; COLOR,URINE YELLOW; GLUCOSE, URINE (UA) NEGATIVE (NEGATIVE); KETONES,URINE NEGATIVE (NEGATIVE); LEUKOCYTE ESTERASE ,URINE NEGATIVE (NEGATIVE); NITRITE,URINE NEGATIVE (NEGATIVE); PROTEIN,URINE TRACE (NEGATIVE)
--- NOTE | 2019-09-16 07:04 | NUR ---
Dr. Villanueva notified and message left about consult for retention. Addendum: 09/16/19 at 1630 by SHAHAB DENG RN Report given to FLO Brody - states she will make sure Dr. Villanueva is aware of consult if she doesn't hear back from him after message left.
[2019-09-16 07:13] LABS: BACTERIA,URINE NEGATIVE /HPF
--- NOTE | 2019-09-16 08:06 | Progress Note ---
Subjective Time Seen by a Provider: 08:02 Subjective/Events-last exam Patient's blood sugars follow. We'll monitor. Patient had 700 mils in bladder this morning. Needed to be straight catheter. Consulted urology. To see if patient candidate for acute rehabilitation. Focused Exam Lactate Level 09/14/19 18:35: Lactic Acid Level 1.98 09/15/19 06:45: Lactic Acid Level 1.01 Objective Exam Vital Signs Date Time Temp Pulse Resp B/P (MAP) Pulse Ox O2 Delivery O2 Flow Rate FiO2 09/16/19 04:00 36.6 63 18 129/66 (87) 93 Room Air 09/16/19 00:10 36.6 58 17 174/66 (102) 93 Room Air 09/15/19 20:30 Room Air 09/15/19 19:11 36.5 61 18 171/72 (105) 97 Room Air 09/15/19 16:26 36.6 60 18 168/67 (100) 98 Room Air 09/15/19 12:00 36.1 72 18 168/64 (98) 92 Room Air 09/15/19 08:00 36.4 74 20 163/76 (105) 93 Room Air I & O 09/16/19 07:00 Intake Total 2180 ml Output Total 900 ml Balance 1280 ml Capillary Refill : Less Than 3 Seconds General Appearance: No Apparent Distress, WD/WN HEENT: Normal ENT Inspection, Other (Left eye conjunctival bleed) Neck: Normal Inspection Respiratory: Lungs Clear, No Accessory Muscle Use, No Respiratory Distress Cardiovascular: Regular Rate, Rhythm, No Murmur Gastrointestinal: non tender, soft Results Lab Laboratory Tests 09/16/19 05:15 Laboratory Tests 09/15/19 08:56: Glucometer 122H 09/15/19 11:04: Glucometer 137H 09/15/19 16:29: Glucometer 83 09/15/19 20:34: Glucometer 109 09/16/19 05:15: White Blood Count 6.5, Red Blood Count 3.17L, Hemoglobin 9.9L, Hematocrit 30L, Mean Corpuscular Volume 94, Mean Corpuscular Hemoglobin 31, Mean Corpuscular Hemoglobin Concent 33, Red Cell Distribution Width 12.4, Platelet Count 162, Mean Platelet Volume 11.8H, Sodium Level 137, Potassium Level 3.7, Chloride Level 106, Carbon Dioxide Level 23, Anion Gap 8, Blood Urea Nitrogen 19H, Creatinine 0.93, Estimat Glomerular Filtration Rate > 60, BUN/Creatinine Ratio 20, Glucose Level 50*L, Calcium Level 8.6, Corrected Calcium 9.8, Total Bilirubin 0.8, Aspartate Amino Transf (AST/SGOT) 18, Alanine Aminotransferase (ALT/SGPT) < 6, Alkaline Phosphatase 102, Total Protein 5.1L, Albumin 2.5L 09/16/19 06:48: Urine Color YELLOW, Urine Clarity CLEAR, Urine pH 7.0, Urine Specific [place] 1.010L, Urine Protein TRACE, Urine Glucose (UA) NEGATIVE, Urine Ketones NEGATIVE, Urine Nitrite NEGATIVE, Urine Bilirubin NEGATIVE, Urine Urobilinogen 1.0, Urine Leukocyte Esterase NEGATIVE, Urine RBC (Auto) 2+H, Urine RBC 5-10H, Urine WBC 2-5, Urine Squamous Epithelial Cells NONE, Urine Crystals NONE, Urine Bacteria NEGATIVE, Urine Casts NONE, Urine Mucus NEGATIVE, Urine Culture Indicated NO 09/16/19 06:52: Glucometer 66L Microbiology 09/14/19 Blood Culture - Preliminary, Resulted No growth 09/14/19 Urine Culture - Preliminary, Resulted Strep agalactiae Group B Assessment/Plan Assessment/Plan Assess & Plan/Chief Complaint AMS. Diabetes. Dehydration. Parkinson disease. Dementia. Hyperlipidemia. History of CHF. Peripheral artery disease. Patient hypoglycemic the last few days. Urinary retention Clinical Quality Measures Admission Status Admission Dx Dehydration. Recent falling at home. Parkinson disease. Peripheral artery disease. Confusion. Diabetes. Not eating the last 3 days. Inability to ambulate. Renal insufficiency acute. Coronary artery disease DVT/VTE Risk/Contraindication: Risk Factor Score Per Nursin RFS Level Per Nursing on Admit: 4+=Very High Contraindications-Pharm: Other *list below* DENIZ KENT DO Sep 16, 2019 08:06 POS
[2019-09-16] MEDS: GABAPENTIN 300 MG (NEURONTIN) CAP PO SCH ×2 (08:10→20:06)
[2019-09-16] MEDS: CLOPIDOGREL 75 MG (PLAVIX) TABLET PO SCH (08:10)
[2019-09-16] MEDS: PANTOPRAZOLE 40 MG (PROTONIX) TAB PO SCH (08:11)
[2019-09-16] MEDS: AMIODARONE 200 MG (CORDARONE) TAB PO SCH (08:12)
[2019-09-16] MEDS: SINEMET CR 50/200 (CARBIDOPA/LEVODOPA SA) TAB PO SCH ×3 (08:12→20:06)
--- NOTE | 2019-09-16 09:51 | Physical Therapy Daily Note ---
PT Daily Note-Current Subjective Patient agrees to PT at this time. Reports no pain and feeling good today. States he needs to toilet prior to ambulation. Pain Numeric Pain Scale: 0-No Pain Location: No Pain Reported Mental Status Patient Orientation: Normal For Age Transfers SCALE: Activities may be completed with or without assistive devices. 3-Gippvlbuhj-pisocpv completes the activity by him/herself with no assistance from a helper. 5-Set-up or Clean-up Assistance-helper sets up or cleans up; patient completes activity. [place] assists only prior to or following the activity. 4-Supervision or Touching Assistance-helper provides verbal cues and/or touching/steadying and/or contact guard assistance as patient completes activity. Assistance may be provided throughout the activity or intermittently. 3-Partial/Moderate Assistance-helper does LESS THAN HALF the effort. [place] lifts, holds or supports trunk or limbs, but provides less than half the effort. 2-Substantial/Maximal Assistance-helper does MORE THAN HALF the effort. [place] lifts or holds trunk or limbs and provides more than half the effort. 4-Ckqbzsotk-ivgkbk does ALL the effort. Patient does none of the effort to complete the activity. Or, the assistance of 2 or more helpers is required for the patient to complete the activity. If activity was not attempted, code reason: 7-Patient Refused. 9-Not Applicable-not attempted and the patient did not perform the activity before the current illness, exacerbation or injury. 10-Not Attempted due to Environmental Limitations-(lack of equipment, weather restraints, etc.). 88-Not Attempted due to Medical Conditions or Safety Concerns. Roll Left & Right (QC): 4 Lying to Sitting/Side of Bed(Q: 4 Sit to Stand (QC): 3 Toilet Transfer (QC): 3 Weight Bearing Right Lower Extremity: Right Weight Bearing/Tolerated Left Lower Extremity: Left Weight Bearing/Tolerated Gait Training Does the Patient Walk?: Yes Distance: 400' Walk 10 feet (QC): 3 Walk 50 ft with 2 Turns(QC): 3 Walk 150 ft (QC): 3 Gait Assistive Device: FWW Does not always keep walker with him, forward head posture Assessment Patient bowel incontinent during tx. Completed toilet transfer with assistance to redress and clean. Required Ingrid to stand but able to maintain standing balance today with minimal assistance. Patient ambulated 400' with FWW and was able to follow directions/instructions during ambulation today. Patient is not always safe with walker and will leave it during transfers due to minimal safety awareness secondary to dementia. Patient seated in chair with alarm on at conclusion of treatment with all needs met. PT Drying Room Attendant Goals Halfway Goals PT Halfway Goals Time Frame: Sep 30, 2019 Roll Left & Right (QC): 6 Sit to Lying (QC): 6 Lying-Sitting on Side/Bed(QC): 6 Sit to Stand (QC): 6 Chair/Qkz-ds-Wtbdn Xfer(QC): 6 Toilet Transfer (QC): 6 Car Transfer (QC): 6 Does the Patient Walk: Yes Walk 10 feet (QC): 6 Walk 50ft with 2 Turns (QC): 6 Walk 150 ft (QC): 6 Walking 10ft on Uneven Surface: 6 1 Step (curb) (QC): 6 4 Steps (QC): 9 12 Steps (QC): 9 Picking up an Object (QC): 6 Does the Pt use WC or Scooter?: No Type: N/A Type: N/A PT Plan Treatment/Plan Treatment Plan: Continue Plan of Care Treatment Plan: Bed Mobility, Education, Functional Activity Navya, Functional Strength, Gait, Safety, Therapeutic Exercise, Transfers Treatment Duration: Sep 30, 2019 Frequency: 6 times per week Estimated Hrs Per Day: .25 hour per day Patient and/or Family Agrees t: Yes Time/GCodes Time In: 840 Time Out: 903 Total Billed Treatment Time: 23 Total Billed Treatment 1 visit FA x2 23min YAA CAMACHO PT Sep 16, 2019 09:51 POS
--- NOTE | 2019-09-16 10:36 | Cardiology Progress Note ---
Subjective Date Seen by Provider: Sep 16, 2019 Time Seen by Provider: 10:34 Subjective/Events-last exam patient is sitting in a chair, no new complaint, denied any chest pain Review of Systems General: No Chills, No Night Sweats; Fatigue, Malaise; No Appetite, No Other HEENT: No Head Aches, No Visual Changes, No Eye Pain, No Ear Pain, No Dysphasia, No Sinus Congestion, No Post Nasal Drip, No Sore Throat, No Other Pulmonary: No Dyspnea, No Cough, No Pleuritic Chest Pain, No Other Cardiovascular: No: Chest Pain, Palpitations, Orthopnea, Paroxysmal Noc. Dyspnea, Edema, Lt Headedness, Other Focused Exam Lactate Level 09/14/19 18:35: Lactic Acid Level 1.98 09/15/19 06:45: Lactic Acid Level 1.01 Objective-Cardiology Exam Last Set of Vital Signs Vital Signs 09/16/19 08:00 Temp 36.0 Pulse 60 Resp 16 B/P (MAP) 162/89 (113) Pulse Ox 97 O2 Delivery Room Air Capillary Refill : Less Than 3 Seconds I&O Intake and Output 09/16/19 00:00 Intake Total 2220 ml Output Total 900 ml Balance 1320 ml Intake Oral 1210 ml IV Total 1010 ml Output Urine Total 900 ml Bladder Scan Volume Amount 538 ml 650 ml 404 ml General: Alert, Cooperative, Other (confused) HEENT: Atraumatic, PERRLA Neck: Supple, No JVD, No Thyromegaly Lungs: Clear to Auscultation, Normal Air Movement Heart: Normal S1, Normal S2, Other (systolic murmur) Abdomen: Normal Bowel Sounds, Soft, No Tenderness, No Hepatosplenomegaly, No Masses Extremities: No Clubbing, No Cyanosis, No Edema, No Tenderness/Swelling, Other (diminished pulse) Skin: No Rashes, No Breakdown, No Significant Lesion Neuro: Normal Speech, Normal Tone, Sensation Intact Psych/Mental Status: Mood NL Results Lab Laboratory Tests 09/16/19 05:15 A/P-Cardiology Admission Diagnosis AMS UTI PVD SSS CAD Assessment/Plan Change in mental status, generalized weakness and loss of energy, multiple falls, being managed by primary care physician Urinary tract infection, receiving antibiotic, managed by primary care physician Severe Peripheral vascular disease, had nonhealing wound right lower extremity, underwent peripheral angiogram on August 17, 2019 revealing total occlusion of right SFA, successful angioplasty then deployment of 2 Supera stent [id number] and [id number] with excellent results and flow. Severe disease at the distal posterior tibial artery proximal anterior tibial artery. Heavily calcified left SFA with multiple segments of moderate to severe disease with occluded anterior tibial artery. Patient is maintained on Plavix and aspirin. Wound to right lower extremity is healing. Patient has known severe disease on the left side, we will continue with conservative management unless patient becomes symptomatic due to his comorbidities. Currently not having any symptoms, does not have any ulceration to left lower extremity. Continue to monitor Sick sinus syndrome, history of episodes of bradycardia with complete heart block, frequent PVCs, ventricular bigeminy and ventricular couplets, short PAT's. Status post permanent pacemaker implantation April 2015, using a [email or web address] device [employer]visa DR GONZALEZ, last interrogation was done in June 2019 showing good sensing and capture activity, longevity for the battery is 4 years, no arrhythmia was detected. Continue to monitor Nonsustained ventricular tachycardia, has been maintained on amiodarone 200 mg daily. No recent arrhythmia on pacemaker interrogation, continue to monitor. Paroxysmal atrial fibrillation, maintained on Amiodarone, continue to monitor. [id number] score of 6, high risk, yearly risk of stroke without OAC is 9.8%. Maintained on Xarelto, continue to monitor Coronary artery disease, multiple interventions in the past, most recent cardiac catheterization done March 14, 2015 revealed extensive coronary artery disease, heavily calcified system, with 40 percent distal left main coronary artery stenosis. 3 stents in LAD proximally with 50-60 percent in-stent restenosis. Distal LAD had 95 percent stenosis followed by 80 percent stenosis long segment, very small artery not amendable to intervention. Total occlusion of the first obtuse marginal branch filled by collaterals. Patent stent in the proximal mid second OM branch with moderate disease in the distal proper circumflex artery. Patent stent in the RCA with 50 percent proximal right coronary artery stenosis and 50-60 distal right coronary artery stenosis. Asymptomatic, continue to monitor Stress test in July 2016 showed fixed defect involving the whole inferior wall and inferoapical segment with dilated left ventricle, inferior wall hypokinesia, Ejection fraction 54 percent. Echocardiogram showed ejection fraction 60 percent, dilated left atrium, mild to moderate mitral regurgitation and pulmonary artery pressure of 35 mmHg. continue to monitor, Hypertension, has history of orthostatic hypotension. Restart home blood pressure medications and continue to monitor closely. Hyperlipidemia, maintained on Crestor, continue to monitor lipids. History of CVA in 2010, mild residual right sided weakness, episodes of confusion occurred over the last year where patient became confused and drove over once to [place] and once to [place]. It was felt that it was a global ischemic attack with confusion, workup at that time was negative. He was seen by Dr. Jiménez and started on Dilantin, the dose was increased by Dr. Damon, followed and managed by primary care physician Congestive heart failure, EF 45-50 percent, as well as diastolic dysfunction per most recent 2-D echocardiogram done 2018, continue on current medications and continue to monitor. Diabetes mellitus, followed and managed by primary care physician Carotid stenosis, monitored by Dr. Simmons's office Dementia, managed by primary care physician. Ex-Tobaccoism, patient smokes pipe, he stopped smoking in October, encouraged to continue with smoking cessation Peripheral neuropathy, maintained on gabapentin. Continue on current m edication, continue to monitor Sleep apnea, severe on sleep study in October 2015, does not use his machine. Clinical Quality Measures DVT/VTE Risk/Contraindication: Risk Factor Score Per Nursin RFS Level Per Nursing on Admit: 4+=Very High Contraindications-Pharm: Other *list below* SEBASTIÁN VALLE MD Sep 16, 2019 10:36 POS
--- NOTE | 2019-09-16 11:45 | Occupational Ther Daily Note ---
OT Current Status-Daily Note Subjective Pt seen in bed, asleep. Pt easily wakes with verbals. Pt agreeable to OT tx and denies pain. Mental Status/Objective Attachments: Patel Catheter ADL-Treatment Therapy Code Descriptions/Definitions Functional [place] Measure: 0=Not Assessed/NA 4=Minimal Assistance 1=Total Assistance 5=Supervision or Setup 2=Maximal Assistance 6=Modified [place] 3=Moderate Assistance 7=Complete IndependenceSCALE: Activities may be completed with or without assistive devices. 4-Capelxonxi-nxttfpx completes the activity by him/herself with no assistance from a helper. 5-Set-up or Clean-up Assistance-helper sets up or cleans up; patient completes activity. [place] assists only prior to or following the activity. 4-Supervision or Touching Assistance-helper provides verbal cues and/or touching/steadying and/or contact guard assistance as patient completes activity. Assistance may be provided throughout the activity or intermittently. 3-Partial/Moderate Assistance-helper does LESS THAN HALF the effort. [place] lifts, holds or supports trunk or limbs, but provides less than half the effort. 2-Substantial/Maximal Assistance-helper does MORE THAN HALF the effort. [place] lifts or holds trunk or limbs and provides more than half the effort. 8-Iihdzxgkf-qximhk does ALL the effort. Patient does none of the effort to complete the activity. Or, the assistance of 2 or more helpers is required for the patient to complete the activity. If activity was not attempted, code reason: 7-Patient Refused. 9-Not Applicable-not attempted and the patient did not perform the activity before the current illness, exacerbation or injury. 10-Not Attempted due to Environmental Limitations-(lack of equipment, weather restraints, etc.). 88-Not Attempted due to Medical Conditions or Safety Concerns. Shower/Bathe Self (QC): 3 (Completes sponge bath EOB, requires assist with back (nursing notified of dressing coming off), CGA in stance, and assist with bilateral feet.) Upper Body Dressing (QC): 5 (s/u) Lower Body Dressing (QC): 3 (min A for threading over L LE) Toileting Hygiene (QC): 4 (CGA in stance.) on /off footwear (socks): 3- requires assist with LLE doff/ donning. Pt IND EOB with RLE Other Treatment Pt agreeable to sponge bath, pt completes bed mob to EOB with IND. Pt demonstrates good balance during tasks, limited ROM/strength in LLE, requiring assist with bathing and dressing over LLE. Pt sit to stand with SBA for bottom hygiene, with support of FWW. Pt completes sponge bath and returns to bed, bed alarm set, pt states one rail up is fine, pt educated on hospital standards of calling nursing with red button prior to exiting chair/ bed. Pt states agreement/ understanding. Pt left in bed, call light in reach. Education OT Patient Education: Correct positioning, Modified ADL techniques, Rehab process, Safety issues, Transfer techniques Teaching Recipient: Patient Teaching Methods: Demonstration, Discussion Response to Teaching: Verbalize Understanding, Return Demonstration OT [facility] Goals Derrick Boat Captain Goals Time Frame: Sep 22, 2019 Eating (QC): 6 Oral Hygiene (QC): 6 Toileting Hygiene (QC): 6 Shower/Bathe Self (QC): 6 Upper Body Dressing (QC): 6 Lower Body Dressing (QC): 6 On/Off Footwear (QC): 6 Additional Goals: 1-Demonstrate ADL Tasks, 2-Verbalize Understanding, 3-ImproveStrength/Navya 1=Demonstrate adherence to instructed precautions during ADL tasks. 2=Patient will verbalize/demonstrate understanding of assistive devices/modifications for ADL. 3=Patient will improve strength/tolerance for activity to enable patient to perform ADL's. OT Education/Plan Problem List/Assessment Assessment: Decreased Activ Tolerance, Decreased UE Strength, Impaired Funct Balance, Impaired I ADL's, Impaired Self-Care Skills Discharge Recommendations Plan/Recommendations: Continue POC Treatment Plan/Plan of Care Treatment,Training & Education: Yes Patient would benefit from OT for education, treatment and training to promote independence in ADL's, mobility, safety and/or upper extremity function for ADL's. Plan of Care: ADL Retraining, Caregiver Training, Functional Mobility, UE Funct Exercise/Act Treatment Duration: Sep 22, 2019 Frequency: 5 times per week Estimated Hrs Per Day: .25 hour per day Agreement: Yes Rehab Potential: Fair Time/GCodes Start Time: 11:10 Stop Time: 11:30 Total Time Billed (hr/min): 20 Billed Treatment Time 1, ADL (20) TYRA ALEJO OTR Sep 16, 2019 11:45 POS
--- NOTE | 2019-09-16 12:03 | NUR ---
IRF Evaluation Order received to evaluate patient for the ARU. Chart review complete and findings discussed with Dr. Escalante - patient accepted for admission. CM/SS notified. Met with patient, spouse and son to discuss details related to rehabilitation program. Patient and family familiar with program as patient has been on the unit in the past. Patient agreeable to required therapy regimen and admission. Anticipate admission, 09/17. Thank you for this referral.
[2019-09-16] MEDS: RIVAROXABAN 20 MG TABLET (XARELTO) PO SCH (17:45)
[2019-09-16] MEDS: TAMSULOSIN 0.4 MG (FLOMAX) CAP PO SCH (17:45)
[2019-09-16] MEDS: amLODIPine 5 MG (NORVASC) TAB PO PRN (17:45)
[2019-09-16] MEDS: ASPIRIN E.C. 81 MG (ECOTRIN) TAB PO SCH (20:06)
[2019-09-16] MEDS: fluCOnazole (DIFLUCAN) 100 MG TAB PO SCH (20:06)
[2019-09-16] MEDS: cefTRIAXone 1,000 MG/SWFI 10 ML IV PUSH IV SCH ×2 (20:07)
--- NOTE | 2019-09-16 22:04 | CONSULTATION REPORT ---
DATE OF SERVICE: 09/16/2019 ATTENDING PRIMARY CARE PHYSICIAN: Mando Damon DO. SUMMARY: After reviewing the patient's record in in the hospital, this is well known to me a patient that I have seen several years ago, referred because of symptoms of BPH and an elevated PSA. Ultrasound of the prostate revealed a suspicious lesion in it, but we could not do biopsy because of his medical condition as well as his anticoagulation at that time. He was supposed to check with his director manufacturing engineering and Dr. Damon regarding the possibility of the biopsy and come back with me, but he never did. Neither from the part of the physicians or the patient. I saw him back last year and same story of some issues, trouble of issues of voiding. He has multiple medical and neurological indices. Yesterday, apparently he had some trouble passing urine, but he had not taken his Flomax for 2 days, it has been resumed and will see how he does. IMPRESSION: 1. Benign prostatic hyperplasia with urinary retention. It is also mentioned that his prostate is not enlarged. It was only 17 mL back in 2013 by ultrasound. 2. Elevated PSA, possible cancer of the prostate. PLAN: 1. We will resume the Flomax. 2. Follow up with bladder scan postvoid residual and straight cath p.r.n. Job ID: [id number] DocumentID: [id number] Dictated Date: 09/16/2019 13:36:39 Mental Health Advanced Practice Nurse Date: 09/16/2019 18:18:14 Dictated By: EVERTON GARCIA MD
--- NOTE | 2019-09-16 22:16 | NUR ---
2200 pt had been inc x1 and voided x1 but at this time pt c/o needing to void but unable to go . bladder scan done 575cc found.. straight cath done 600cc dk yellow urine return. left foot drg changed at this time
[2019-09-17] MEDS ORDERED: amLODIPine 5 MG (NORVASC) TAB ONE (00:02)
[2019-09-17] MEDS: amLODIPine 5 MG (NORVASC) TAB PO PRN (00:06)
[2019-09-17] MEDS ORDERED: meTOprolol TARTRATE 25 MG (LOPRESSOR) TABLET PO SCH ×2 (02:15→21:00)
[2019-09-17 03:30] VITALS: BP 160/79
[2019-09-17 04:52] LABS: BASOPHILS % (AUTO) 0 % (0-10); EOSINOPHILS # (AUTO) 0.4 10^3/uL (0.0-0.3); EOSINOPHILS % (AUTO) 5 % (0-10); HEMATOCRIT 31 % (40-54); HEMOGLOBIN 10.3 G/DL (13.3-17.7); LYMPHOCYTES # (AUTO) 2.3 X 10^3 (1.0-4.0); LYMPHOCYTES % (AUTO) 30 % (12-44); MEAN CORPUSCULAR HEMOGLOBIN 31 PG (25-34); MEAN CORPUSCULAR HGB CONC 33 G/DL (32-36); MEAN CORPUSCULAR VOLUME 92 FL (80-99); MEAN PLATELET VOLUME 11.2 FL (7.4-10.4); MONOCYTES # (AUTO) 0.8 X 10^3 (0.0-1.0); MONOCYTES % (AUTO) 10 % (0-12); NEUTROPHILS # (AUTO) 4.2 X 10^3 (1.8-7.8); NEUTROPHILS % (AUTO) 55 % (42-75); PLATELET COUNT 180 10^3/uL (130-400); RED CELL DISTRIBUTION WIDTH 12.7 % (10.0-14.5); WHITE BLOOD COUNT 7.6 10^3/uL (4.3-11.0)
[2019-09-17 05:15] LABS: ALANINE AMINOTRANSFERASE < 6 U/L (0-55); ALBUMIN 2.7 GM/DL (3.2-4.5); ALKALINE PHOSPHATASE 113 U/L (40-136); BILIRUBIN,TOTAL 0.7 MG/DL (0.1-1.0); BUN/CREATININE RATIO 16; CALCIUM 8.9 MG/DL (8.5-10.1); CARBON DIOXIDE 24 MMOL/L (21-32); CHLORIDE 105 MMOL/L (98-107); GFR ESTIMATED > 60; GLUCOSE 82 MG/DL (70-105); POTASSIUM 4.2 MMOL/L (3.6-5.0); SODIUM 136 MMOL/L (135-145); TOTAL PROTEIN 5.4 GM/DL (6.4-8.2)
[2019-09-17] MEDS: inSUlin ASPART (NovoLOG) 1 UNIT/0.01 ML (CHARGE PER UNIT) SC SCH (05:39)
[2019-09-17 08:02] VITALS: BP 160/76
--- NOTE | 2019-09-17 08:22 | Discharge Summary ---
Diagnosis/Chief Complaint Date of Admission Sep 14, 2019 at 21:12 Date of Discharge Discharge Date: Sep 17, 2019 Primary Care Mando Damon DO Discharge Summary Discharge Physical Exam Allergies: Coded Allergies: No Known Drug Allergies (Unverified , 09/06/18) Vitals & I&Os Vital Signs Date Time Temp Pulse Resp B/P (MAP) Pulse Ox O2 Delivery O2 Flow Rate FiO2 09/17/19 08:02 36.2 62 18 160/76 (104) 100 Room Air General Appearance: No Apparent Distress, Chronically ill Respiratory: Lungs Clear, No Respiratory Distress Neurologic/Psychiatric: Alert, Oriented x3 Hospital Course Pt was admitted for altered mental status due to UTI, dehydration, and hypoglycemia. He responded well to IV fluids and antibiotics and with this his mentation and appetite improved. His home Levemir was held as well and his blood sugars were stable. He was evaluated by PT/OT and deemed an appropriate candidate for Inpatient Rehab. He was transferred there in stable condition to complete aggressive inpatient therapy in hopes of returning home.His urine culture grew e coli but sensitivities are pending at the time of discharge. Labs (last 24 hrs) Microbiology 09/14/19 Blood Culture - Preliminary, Resulted No growth 09/14/19 Urine Culture - Final, Complete Strep agalactiae Group B Escherichia coli Patient resulted labs reviewed. Pending Labs Discussion & Recommendations Discharge Planning: <30 minutes discharge planning Discharge Home Medications: Active Scripts Active Reported Xarelto (Rivaroxaban) 20 Mg Tablet 20 Mg PO HS Metoprolol Succinate 25 Mg Tab.er.24h 25 Mg PO HS Aspirin EC (Aspirin) 81 Mg Tablet.dr 81 Mg PO HS Plavix (Clopidogrel Bisulfate) 75 Mg Tablet 75 Mg PO DAILY Pantoprazole Sodium 40 Mg Tablet.dr 40 Mg PO DAILY Benicar (Olmesartan Medoxomil) 40 Mg Tablet 40 Mg PO DAILY Dulcolax (Bisacodyl) 5 Mg Tablet.dr 10 Mg PO HS PRN Acetaminophen 500 Mg Tablet 1,000 Mg PO Q4H PRN Carbidopa-Levo ER 50-200 Tab (Carbidopa/Levodopa) 1 Each Tablet.er 1 Tab PO 1300,2100 TAKES 2 TABS IN THE MORNING, 1 TAB AT 1300 AND 1 TAB AT BEDTIME Carbidopa-Levo ER 50-200 Tab (Carbidopa/Levodopa) 1 Each Tablet.er 2 Tab PO 0800 TAKES 2 TABS IN THE MORNING, 1 TAB AT 1300 AND 1 TAB AT BEDTIME Multivitamins (Multivitamin) 1 Each Tablet 1 Tab PO DAILY Flomax (Tamsulosin HCl) 0.4 Mg Cap 0.8 Mg PO 1730 TAKES 2 (0.4MG) CAPSULES Fish Oil 1,000 mg Softgel ([place]-3/Dha/Epa/Fish Oil) 1 Each Capsule 1,000 Mg PO BID Atorvastatin Calcium 40 Mg Tablet 40 Mg PO HS Gabapentin 300 Mg Capsule 300 Mg PO BID Glipizide 10 Mg Tablet 5 Mg PO DAILY TAKES 1/2 (10MG) TABLET Amiodarone HCl 200 Mg Tablet 200 Mg PO DAILY Amlodipine Besylate 10 Mg Tablet 5 Mg PO DAILY PRN TAKES 1/2 (10MG) TABLET Novolog Flexpen (Insulin Aspart) 300 Units/3 Ml Solution SQ TIDAC Instructions to patient/family Please see electronic discharge instructions given to patient. Clinical Quality Measures DVT/VTE Risk/Contraindication: Risk Factor Score Per Nursin RFS Level Per Nursing on Admit: 4+=Very High Contraindications-Pharm: Other *list below* ADOLFO WILLSON MD Sep 17, 2019 08:22 POS
[2019-09-17] MEDS: GABAPENTIN 300 MG (NEURONTIN) CAP PO SCH (08:26)
[2019-09-17] MEDS: PANTOPRAZOLE 40 MG (PROTONIX) TAB PO SCH (08:26)
[2019-09-17] MEDS: SINEMET CR 50/200 (CARBIDOPA/LEVODOPA SA) TAB PO SCH (08:26)
[2019-09-17] MEDS: AMIODARONE 200 MG (CORDARONE) TAB PO SCH (08:26)
[2019-09-17] MEDS: CLOPIDOGREL 75 MG (PLAVIX) TABLET PO SCH (08:28)
--- NOTE | 2019-09-19 14:30 | Physician Query Clarification ---
PQ-CHF Specificity Admission Date: Sep 14, 2019 at 21:12 Discharge Date: Sep 17, 2019 at 09:45 The medical record reflects the following clinical scenario: History/Risk Factors: HTN, CHF Clinical Findings: HTN, CHF Treatment: blood pressure meds, monitor Question: Can you further specify the acuity &/or type of CHF per the clinical indicators above? Please document a response in the Progress Notes or Discharge Summary. 1. Acuity: Acute, Chronic or Acute on Chronic 2. Type: Systolic, Diastolic or Systolic & Diastolic 3. Unspecified: CHF cannot be further specified regarding type or acuity 4. Other, with explanation of clinical findings 5. Clinically undetermined, no explanation for clinical findings PHYSICIAN RESPONSE Acuity: Chronic Type: Systolic & Diastolic Please remember a lack of response to the above will prompt a phone page by CDI/Coding staff. In responding to this query, please exercise your independent professional judgment. The purpose of this communication is to more accurately reflect the complexity of your patients condition. The fact that a question is asked does not imply that any particular answer is desired or expected. Thank you for your timely response to this clarification. Requestors name: Daniella Fox Phone # [phone] THIS PHYSICIAN QUERY FORM IS A PERMANENT PART OF THE MEDICAL RECORD DANIELLA REYES Sep 19, 2019 14:30 SEBASTIÁN ZAVALETA MD Sep 19, 2019 19:22 POS
[2019-10-04] MEDS ORDERED: MTP25TSR PO (12:55)
--- OUTSIDE RECORDS SUMMARY | 2019-10-10 19:08 | XMS REPORT | Continuity of Care Document ---
Author Organization Unknown Address Unknown Phone Unavailable Allergies Active Description Code Type Severity Reaction Onset Reported/Identified Relationship to Patient Clinical Status Yes No Known Drug Allergies [id number] Drug Allergy Unknown N/A 09/06/2018 Medications There is no data. 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 10 01/16/2015 SEBASTIÁN VALLE MD Ot 434. 91 02/05/2015 SEBASTIÁN VALLE MD Ot 433. 10 02/05/2015 SEBASTIÁN VALLE MD Ot 434. 91 02/07/2015 SEBASTIÁN VALLE MD Ot 433. 10 02/07/2015 SEBASTIÁN VALLE MD Ot 434. 91 02/13/2015 SEBASTIÁN VALLE MD Ot 305. 1 02/13/2015 SEBASTIÁN VALLE MD Ot 414. 00 02/13/2015 SEBASTIÁN VALLE MD Ot 429. 3 02/13/2015 SEBASTIÁN VALLE MD Ot 433. 10 02/13/2015 SEBASTIÁN VALLE MD Ot 434. 91 02/20/2015 JOSELUIS KELLEY Ot 250.00 02/20/2015 JOSELUIS KELLEY Ot 305.1 02/20/2015 JOSELUIS KELLEY Ot 414.00 02/20/2015 JOSELIUS KELLEY Ot 433.10 02/20/2015 JOSELUIS KELLEY Ot V58.67 03/02/2015 SEBASTIÁN VALLE MD Ot 433. 10 03/02/2015 SEBASTIÁN VALLE MD Ot 434. 91 03/02/2015 SEBASTIÁN VALLE MD Ot 305. 1 03/02/2015 SEBASTIÁN VALLE MD Ot 414. 00 03/02/2015 SEBASTIÁN VALLE MD Ot 429. 3 03/02/2015 SEBASTIÁN VALLE MD Ot 433. 10 03/02/2015 SEBASTIÁN VALLE MD Ot 434. 91 03/10/2015 SEBASTIÁN VALLE MD Ot 305. 1 03/10/2015 SEBASTIÁN VALLE MD Ot 414. 00 03/10/2015 SEBASTIÁN VALLE MD Ot 429. 3 03/10/2015 SEBASTIÁN VALLE MD Ot 433. 10 03/10/2015 HALIE LE MD Ot 780 .4 03/13/2015 HALIE LE MD Ot 780 .4 03/14/2015 SEBASTIÁN VALLE MD Ot 250. 00 DIAB BUCKY WO COMPL, TYPE II OR UNSPEC TY 03/14/2015 SEBASTIÁN VALLE MD Ot 272. 4 HYPERLIPIDEMIA NEC/NOS 03/14/2015 SEBASTIÁN VALLE MD Ot 305. 1 TOBACCO USE DISORDER 03/14/2015 SEBASTÁIN VALLE MD Ot 356. 9 IDIO PERIPH NEURPTHY NOS 03/14/2015 SEBASTIÁN VALLE MD Ot 401. 9 HYPERTENSION NOS 03/14/2015 SEBASTIÁN VALLE MD Ot 414. 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 4 CORONARY ATHEROSCLEROSIS DUE TO CALCIFIE 03/14/2015 SEBASTIÁN VALLE MD Ot 426. 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 4 DIZZINESS AND GIDDINESS 03/14/2015 SEBASTIÁN VALLE MD Ot 794. 30 ABN CARDIOVASC STUDY NOS 03/14/2015 SEBASTIÁN VALLE MD, Ot V45. 82 PERCUTANEOUS TRANSLUM CORON ANGIOPLASTY 03/14/2015 SEBASTIÁN VALLE MD, Ot V58. 67 LONG-TERM (CURRENT) USE OF INSULIN 03/14/2015 SEBASTIÁN VALLE MD, Ot V58. 69 OT MED,LT,CURRENT USE 03/30/2015 SEBASTIÁN VALLE MD Ot 305. 1 03/30/2015 SEBASTIÁN VALLE MD, Ot 414. 00 03/30/2015 SEBASTIÁN VALLE MD Ot 429. 3 03/30/2015 SEBASTIÁN VALLE MD Ot 433. 10 04/11/2015 JOSELUIS KELLEY Ot 250.00 04/11/2015 JOSELUIS KELLEY Ot 305.1 04/11/2015 JOSELUIS KELLEY Ot 414.00 04/11/2015 JOSELUIS KELLEY Ot 433.10 04/11/2015 JOSELUIS KELLEY Ot V58.67 04/19/2015 JOSELUIS KELLEY Ot 250.00 04/19/2015 JOSELUIS KELLEY Ot 305.1 04/19/2015 JOSELUIS KELLEY Ot 414.00 04/19/2015 JOSELUIS KELLEY Ot 433.10 04/19/2015 JOSELUIS KELLEY Ot V58.67 04/26/2015 SEBASTIÁN VALLE MD Ot 414. 01 CORONARY ATHEROSCLEROSIS OF [place] CORON 04/26/2015 SEBASTIÁN VALLE MD Ot 426. 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 04/26/2015 SEBASTIÁN VALLE MD Ot 780. 2 SYNCOPE AND COLLAPSE 04/26/2015 SEBASTIÁN VALEL MD Ot 780. 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 82 HISTORY OF TOBACCO USE 04/26/2015 SEBASTIÁN VALLE MD, Ot V45. 82 PERCUTANEOUS TRANSLUM CORON ANGIOPLASTY 04/26/2015 SEBASTIÁN VALLE MD, Ot V58. 67 LONG-TERM (CURRENT) USE OF INSULIN 04/26/2015 SEBASTIÁN VALLE MD, Ot V58. 69 OT MED,LT,CURRENT USE 05/20/2015 JOSELUIS KELLEY Ot [...] AND COLLAPSE 08/04/2015 BRIDGET GAMBOA MD Ot Z79. 4 SNF (CURRENT) USE OF INSULIN 10/26/2015 MOHAN GUTIÉRREZ, VICKIE Zarate Ot G47.33 OBSTRUCTIVE SLEEP APNEA (ADULT) (PEDIATR 07/11/2016 EVERTON GARCIA MD Ot 592.0 CALCULUS OF KIDNEY 07/11/2016 EVERTON GARCIA MD Ot 599.7 0 HEMATURIA, UNSPECIFIED 07/11/2016 DENIZ KENT DO Ot [...] AND GIDDINESS 07/11/2016 SEBASTIÁN VALLE MD Ot 305. 1 TOBACCO USE DISORDER 07/11/2016 SEBASTIÁN VALLE MD Ot 414. 00 CORON ATHEROSCLER NOS TYPE VESSEL, NATIV 07/11/2016 SEBASTIÁN VALLE MD Ot 429. 3 CARDIOMEGALY 07/11/2016 SEBASTIÁN VALLE MD Ot 433. 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 91 CEREBRAL ART OCCLUSION NOS W CEREBRAL IN 07/11/2016 SEBASTIÁN VALLE MD Ot 305. 1 TOBACCO USE DISORDER 07/11/2016 SEBASTIÁN VALLE MD Ot 414. 00 CORON ATHEROSCLER NOS TYPE VESSEL, NATIV 07/11/2016 SEBASTIÁN VALLE MD Ot 429. 3 CARDIOMEGALY 07/11/2016 SEBASTIÁN VALLE MD Ot 433. 10 CAROTID ARTERY OCCLUSION W O CEREBRAL IN 07/11/2016 SEBASTIÁN VALLE MD Ot 433. 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 91 CEREBRAL ART OCCLUSION NOS W CEREBRAL IN 07/11/2016 HALIE LE MD Ot 780 .4 DIZZINESS AND GIDDINESS 07/11/2016 SEBASTIÁN VALLE MD Ot 433. 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 91 CEREBRAL ART OCCLUSION NOS W CEREBRAL IN 07/11/2016 JOSELUIS KELLEY Ot 250.00 DIAB BUCKY WO COMPL, TYPE II OR UNSPEC TY 07/11/2016 JOSELUIS KELLEY Ot 305.1 TOBACCO USE DISORDER 07/11/2016 JOSELUIS KELLEY Ot 414.00 CORON ATHEROSCLER NOS TYPE VESSEL, NATIV 07/11/2016 JOSELUIS KELLEY Ot 433.10 CAROTID ARTERY OCCLUSION W O CEREBRAL IN 07/11/2016 JOSELUIS KELLEY Ot V58.67 LONG-TERM (CURRENT) USE OF INSULIN 07/14/2016 BRIDGET MORRELL MD Ot I51.9 HEART DISEASE, UNSPECIFIED 07/14/2016 BRIDGET MORRELL MD Ot I65.2 3 OCCLUSION AND STENOSIS OF BILATERAL STOLL 07/15/2016 SEBASTIÁN VALLE MD Ot I07. 1 RHEUMATIC TRICUSPID INSUFFICIENCY 07/15/2016 SEBASTIÁN VALLE MD Ot I15. 9 SECONDARY HYPERTENSION, UNSPECIFIED 07/15/2016 SEBASTIÁN VALLE MD Ot I51. 7 CARDIOMEGALY 07/15/2016 SEBASTIÁN VALLE MD Ot I65. 23 OCCLUSION AND STENOSIS OF BILATERAL [place] 07/29/2016 SEBASTIÁN VALLE MD Ot I07. 1 RHEUMATIC TRICUSPID INSUFFICIENCY 07/29/2016 SEBASTIÁN VALLE MD Ot I51. 7 CARDIOMEGALY 07/29/2016 SEBASTIÁN VALLE MD Ot I65. 23 OCCLUSION AND STENOSIS OF BILATERAL [place] 07/29/2016 SEBASTIÁN VALLE MD Ot I07. 1 RHEUMATIC TRICUSPID INSUFFICIENCY 07/29/2016 SEBASTIÁN VALLE MD Ot I51. 7 CARDIOMEGALY 07/29/2016 SEBASTIÁN VALLE MD Ot I65. 23 OCCLUSION AND STENOSIS OF BILATERAL [place] 08/05/2016 BRIDGET MORRELL MD Ot I51.9 HEART DISEASE, UNSPECIFIED 08/05/2016 BRIDGET MORRELL MD Ot I65.2 3 OCCLUSION AND STENOSIS OF BILATERAL STO[place] 08/06/2016 SEBASTIÁN VALLE MD Ot I07. 1 RHEUMATIC TRICUSPID INSUFFICIENCY 08/06/2016 SEBASTIÁN VALLE MD Ot I15. 9 SECONDARY HYPERTENSION, UNSPECIFIED 08/06/2016 SEBASTIÁN VALLE MD Ot I51. 7 CARDIOMEGALY 08/06/2016 SEBASTIÁN VALLE MD Ot I65. 23 OCCLUSION AND STENOSIS OF BILATERAL STOLL 08/07/2016 PETROS GUTIÉRREZ, BRIDGET Silva Ot I51.9 HEART DISEASE, UNSPECIFIED 08/07/2016 BRIDGET MORRELL MD Ot I65.2 3 OCCLUSION AND STENOSIS OF BILATERAL STO[place] 08/19/2016 SEBASTIÁN VALLE MD Ot I07. 1 RHEUMATIC TRICUSPID INSUFFICIENCY 08/19/2016 SEBASTIÁN VALLE MD Ot I51. 7 CARDIOMEGALY 08/19/2016 SEBASTIÁN VALLE MD Ot I65. 23 OCCLUSION AND STENOSIS OF BILATERAL STO[place] 09/01/2016 SEBASTIÁN VALLE MD Ot I07. 1 RHEUMATIC TRICUSPID INSUFFICIENCY 09/01/2016 SEBASTIÁN VALLE MD Ot I51. 7 CARDIOMEGALY 09/01/2016 SEBASTIÁN VALLE MD Ot I65. 23 OCCLUSION AND STENOSIS OF BILATERAL STO[place] 08/04/2017 JESS DAWKINS MD Ot E11. 9 TYPE 2 DIABETES MELLITUS WITHOUT COMPLIC 08/04/2017 JESS DAWKINS MD Ot G47. 33 OBSTRUCTIVE SLEEP APNEA (ADULT) (PEDIATR 08/04/2017 JESS DAWKINS MD Ot R55 SYNCOPE AND COLLAPSE 08/04/2017 JESS DAWKINS MD Ot Z79. 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 73 PRSNL HX OF TIA (TIA), AND CEREB INFRC W 08/04/2017 JESS DAWKINS MD Ot Z87.438 PERSONAL HISTORY OF OTHER DISEASES OF [place] 08/04/2017 JESS DAWKINS MD Ot Z87.891 PERSONAL HISTORY OF NICOTINE DEPENDENCE 12/14/2017 SEBASTIÁN VALLE MD Ot E11. 9 TYPE 2 DIABETES MELLITUS WITHOUT COMPLIC 12/14/2017 SEBASTIÁN VALLE MD Ot I25. 10 ATHSCL HEART DISEASE OF [place] CORONARY 12/14/2017 SEBASTIÁN VALLE MD Ot I34. 0 NONRHEUMATIC MITRAL (VALVE) INSUFFICIENC 12/14/2017 SEBASTIÁN VALLE MD Ot I35. 8 OTHER NONRHEUMATIC AORTIC VALVE DISORDER 12/14/2017 SEBASTIÁN VALLE MD Ot I44. 2 ATRIOVENTRICULAR BLOCK, COMPLETE 12/14/2017 SEBASTIÁN VALLE MD Ot I51. 7 CARDIOMEGALY 12/14/2017 SEBASTIÁN VALLE MD Ot I65. 29 OCCLUSION AND STENOSIS OF UNSPECIFIED CA 12/17/2017 SEBASTIÁN VALLE MD Ot E11. 9 TYPE 2 DIABETES MELLITUS WITHOUT COMPLIC 12/17/2017 SEBASTIÁN VALLE MD Ot I25. 10 ATHSCL HEART DISEASE OF [place] CORONARY 12/17/2017 SEBASTIÁN VALLE MD Ot I34. 0 NONRHEUMATIC MITRAL (VALVE) INSUFFICIENC 12/17/2017 SEBASTIÁN VALLE MD Ot I35. 8 OTHER NONRHEUMATIC AORTIC VALVE DISORDER 12/17/2017 SEBASTIÁN VALLE MD Ot I44. 2 ATRIOVENTRICULAR BLOCK, COMPLETE 12/17/2017 SEBASTIÁN VALLE MD Ot I51. 7 CARDIOMEGALY 12/17/2017 SEBASTIÁN VALLE MD Ot I65. 29 OCCLUSION AND STENOSIS OF UNSPECIFIED CA 01/01/2018 SEBASTIÁN VALLE MD Ot E11. 9 TYPE 2 DIABETES MELLITUS WITHOUT COMPLIC 01/01/2018 SEBASTIÁN VALLE MD Ot I25. 10 ATHSCL HEART DISEASE OF [place] CORONARY 01/01/2018 SEBASTIÁN VALLE MD Ot I34. 0 NONRHEUMATIC MITRAL (VALVE) INSUFFICIENC 01/01/2018 SEBASTIÁN VALLE MD Ot I35. 8 OTHER NONRHEUMATIC AORTIC VALVE DISORDER 01/01/2018 SEBASTIÁN VALLE MD Ot I44. 2 ATRIOVENTRICULAR BLOCK, COMPLETE 01/01/2018 SEBASTIÁN VALLE MD Ot I51. 7 CARDIOMEGALY 01/01/2018 SEBASTIÁN VALLE MD Ot I65. 29 OCCLUSION AND STENOSIS OF UNSPECIFIED CA 01/06/2018 SEBASTIÁN VALLE MD Ot E11. 9 TYPE 2 DIABETES MELLITUS WITHOUT COMPLIC 01/06/2018 SEBASTIÁN VALLE MD Ot I25. 10 ATHSCL HEART DISEASE OF [place] CORONARY 01/06/2018 SEBASTIÁN VALLE MD Ot I34. 0 NONRHEUMATIC MITRAL (VALVE) INSUFFICIENC 01/06/2018 SEBASTIÁN VALLE MD Ot I35. 8 OTHER NONRHEUMATIC AORTIC VALVE DISORDER 01/06/2018 SEBASTIÁN VALLE MD Ot I44. 2 ATRIOVENTRICULAR BLOCK, COMPLETE 01/06/2018 SEBASTIÁN VALLE MD Ot I51. 7 CARDIOMEGALY 01/06/2018 SEBASTIÁN VALLE MD Ot I65. 29 OCCLUSION AND STENOSIS OF UNSPECIFIED CA 08/12/2018 EVERTON GARCIA MD Ot 592.0 CALCULUS OF KIDNEY 08/12/2018 EVERTON GARCIA MD Ot 599.7 0 HEMATURIA, UNSPECIFIED 08/12/2018 GELLENDER DO, DENIZ A Ot 298.9 PSYCHOSIS NOS 08/12/2018 GELLENDER DO, DENIZ A Ot 780.4 DIZZINESS AND GIDDINESS 08/12/2018 GELLENDER DO, DENIZ A Ot 780.97 ALTERED MENTAL STATUS 08/12/2018 MARCELOLENDER DO, DENIZ A Ot 782.0 SKIN SENSATION DISTURB 08/12/2018 GELLENDER DO, DENIZ A Ot 298.9 PSYCHOSIS NOS 08/12/2018 GELLENDER DO, DENIZ A Ot 433.30 MULT BILTRAL ARTERY OCCLUSION WO CEREBRA 08/12/2018 MARCELOLENDER DO, DENIZ A Ot 780.97 ALTERED MENTAL STATUS 08/12/2018 MARCELOLENDER DO, DENIZ A Ot 298.9 PSYCHOSIS NOS 08/12/2018 MARCELOLENDER DO, DENIZ A Ot 435.9 TRANS CEREB ISCHEMIA NOS 08/12/2018 MARCELOLENHINES, DENIZ A Ot 780.4 DIZZINESS AND GIDDINESS 08/12/2018 SEBASTIÁN VALLE MD Ot 305. 1 TOBACCO USE DISORDER 08/12/2018 SEBASTIÁN VALLE MD Ot 414. 00 CORON ATHEROSCLER NOS TYPE VESSEL, NATIV 08/12/2018 SEBASTIÁN VALLE MD Ot 429. 3 CARDIOMEGALY 08/12/2018 SEBASTIÁN VALLE MD Ot 433. 10 CAROTID ARTERY OCCLUSION W O CEREBRAL IN 08/12/2018 SEBASTIÁN VALLE MD Ot 434. 91 CEREBRAL ART OCCLUSION NOS W CEREBRAL IN 08/12/2018 SEBASTIÁN VALLE MD Ot 305. 1 TOBACCO USE DISORDER 08/12/2018 SEBASTIÁN VALLE MD Ot 414. 00 CORON ATHEROSCLER NOS TYPE VESSEL, NATIV 08/12/2018 SEBASTIÁN VALLE MD Ot 429. 3 CARDIOMEGALY 08/12/2018 SEBASTIÁN VALLE MD Ot 433. 10 CAROTID ARTERY OCCLUSION W O CEREBRAL IN 08/12/2018 SEBASTIÁN VALLE MD Ot 433. 10 CAROTID ARTERY OCCLUSION W O CEREBRAL IN 08/12/2018 SEBASTIÁN VALLE MD Ot 434. 91 CEREBRAL ART OCCLUSION NOS W CEREBRAL IN 08/12/2018 MIMI GUTIÉRREZ, HALIE Dooley Ot 780 .4 DIZZINESS AND GIDDINESS 08/12/2018 SEBASTIÁN VALLE MD Ot 433. 10 CAROTID ARTERY OCCLUSION W O CEREBRAL IN 08/12/2018 SEBASTIÁN VALLE MD Ot 434. 91 CEREBRAL ART OCCLUSION NOS W CEREBRAL IN 08/12/2018 JOSELUIS KELLEY Ot 250.00 DIAB BUCKY WO COMPL, TYPE II OR UNSPEC TY 08/12/2018 JOSELUIS KELLEY Ot 305.1 TOBACCO USE DISORDER 08/12/2018 JOSELUIS KELLEY Ot 414.00 CORON ATHEROSCLER NOS TYPE VESSEL, NATIV 08/12/2018 JOSELUIS KELLEY Ot 433.10 CAROTID ARTERY OCCLUSION W O CEREBRAL IN 08/12/2018 JOSELUIS KELLEY Ot V58.67 LONG-TERM (CURRENT) USE OF INSULIN 08/12/2018 SEBASTIÁN VALLE MD Ot I07. 1 RHEUMATIC TRICUSPID INSUFFICIENCY 08/12/2018 SEBASTIÁN VALLE MD Ot I51. 7 CARDIOMEGALY 08/12/2018 SEBASTIÁN VALLE MD Ot I65. 23 OCCLUSION AND STENOSIS OF BILATERAL STOLL 08/12/2018 SEBASTIÁN VALLE MD Ot I07. 1 RHEUMATIC TRICUSPID INSUFFICIENCY 08/12/2018 SEBASTIÁN VALLE MD Ot I15. 9 SECONDARY HYPERTENSION, UNSPECIFIED 08/12/2018 SEBASTIÁN VALLE MD Ot I51. 7 CARDIOMEGALY 08/12/2018 SEBASTIÁN VALLE MD Ot I65. 23 OCCLUSION AND STENOSIS OF BILATERAL STOLL 08/12/2018 BRIDGET MORRELL MD Ot I51.9 HEART DISEASE, UNSPECIFIED 08/12/2018 BRIDGET MORRELL MD Ot I65.2 3 OCCLUSION AND STENOSIS OF BILATERAL STOLL 08/12/2018 SEBASTIÁN VALLE MD Ot E11. 9 TYPE 2 DIABETES MELLITUS WITHOUT COMPLIC 08/12/2018 SEBASTIÁN VALLE MD Ot I25. 10 ATHSCL HEART DISEASE OF [place] CORONARY 08/12/2018 SEBASTIÁN VALLE MD Ot I34. 0 NONRHEUMATIC MITRAL (VALVE) INSUFFICIENC 08/12/2018 SEBASTIÁN VALLE MD Ot I35. 8 OTHER NONRHEUMATIC AORTIC VALVE DISORDER 08/12/2018 SEBASTIÁN VALLE MD Ot I44. 2 ATRIOVENTRICULAR BLOCK, COMPLETE 08/12/2018 SEBASTIÁN VALLE MD Ot I51. 7 CARDIOMEGALY 08/12/2018 SEBASTIÁN VALLE MD, Ot I65. 29 OCCLUSION AND STENOSIS OF UNSPECIFIED CA 08/13/2018 SEBASTIÁN VALLE MD Ot E11. 40 TYPE 2 DIABETES MELLITUS WITH DIABETIC N 08/13/2018 SEBASTIÁN VALLE MD Ot I08. 1 RHEUMATIC DISORDERS OF BOTH MITRAL AND T 08/13/2018 SEBASTIÁN VALLE MD Ot I25. 10 ATHSCL HEART DISEASE OF [place] CORONARY 08/13/2018 SEBASTIÁN VALLE MD Ot I44. 2 ATRIOVENTRICULAR BLOCK, COMPLETE 08/13/2018 SEBASTIÁN VALLE MD Ot I65. 29 OCCLUSION AND STENOSIS OF UNSPECIFIED CA 09/06/2018 SEBASTIÁN VALLE MD Ot E11. 40 TYPE 2 DIABETES MELLITUS WITH DIABETIC N 09/06/2018 SEBASTIÁN VALLE MD Ot I08. 1 RHEUMATIC DISORDERS OF BOTH MITRAL AND T 09/06/2018 SEBASTIÁN VALLE MD Ot I25. 10 ATHSCL HEART DISEASE OF [place] CORONARY 09/06/2018 SEBASTIÁN VALLE MD Ot I44. 2 ATRIOVENTRICULAR BLOCK, COMPLETE 09/06/2018 SEBASTIÁN VALLE MD Ot I65. 29 OCCLUSION AND STENOSIS OF UNSPECIFIED CA 09/06/2018 JOSELUIS KELLEY Ot 250.00 DIAB BUCKY WO COMPL, TYPE II OR UNSPEC TY 09/06/2018 JOSELUIS KELLEY Ot 305.1 TOBACCO USE DISORDER 09/06/2018 JOSELUIS KELLEY Ot 414.00 CORON ATHEROSCLER NOS TYPE VESSEL, NATIV 09/06/2018 JOSELUIS KELLEY Ot 433.10 CAROTID ARTERY OCCLUSION W O CEREBRAL IN 09/06/2018 JOSELUIS KELLEY Ot V58.67 LONG-TERM (CURRENT) USE OF INSULIN 09/08/2018 DENIZ KENT DO Ot G31.9 DEGENERATIVE DISEASE OF NERVOUS SYSTEM, 09/08/2018 SUDHIRDER DO, DENIZ Silva Ot I67.82 CEREBRAL ISCHEMIA 09/08/2018, DENIZ Silva Ot M16.12 UNILATERAL PRIMARY OSTEOARTHRITIS, LEFT 09/08/2018, DENIZ Silva Ot E11.42 TYPE 2 DIABETES MELLITUS WITH DIABETIC P 09/08/2018, DENIZ iSlva Ot E11.649 TYPE 2 DIABETES MELLITUS WITH HYPOGLYCEM 09/08/2018, DENIZ Silva Ot F02.80 DEMENTIA IN OTH DISEASES CLASSD ELSWHR W 09/08/2018, DENIZ Silva Ot G31.83 DEMENTIA WITH LEWY BODIES 09/08/2018, DENIZ Silva Ot G47.30 SLEEP APNEA, UNSPECIFIED 09/08/2018, DENIZ Silva Ot I10 ESSENTIAL (PRIMARY) HYPERTENSION 09/08/2018, DENIZ Silva Ot I25.10 ATHSCL HEART DISEASE OF [place] CORONARY 09/08/2018, DENIZ Silva Ot I48.0 PAROXYSMAL ATRIAL FIBRILLATION 09/08/2018, DENIZ Silva Ot I69.351 HEMIPLGA FOLLOWING CEREBRAL INFRC AFF RI 09/08/2018, DENIZ Silva Ot N31.9 NEUROMUSCULAR DYSFUNCTION OF [place], UN 09/08/2018, DENIZ Silva Ot N40.1 BENIGN PROSTATIC HYPERPLASIA WITH LOWER 09/08/2018, DENIZ Silva Ot R26.81 UNSTEADINESS ON FEET 09/08/2018, DENIZ Silva Ot R32 UNSPECIFIED URINARY INCONTINENCE 09/08/2018, DENIZ Silva Ot R41.82 ALTERED MENTAL STATUS, UNSPECIFIED 09/08/2018DER DO, DENIZ Silva Ot R53.1 WEAKNESS 09/08/2018 GELLENDER , DENIZ Silva Ot R56.9 UNSPECIFIED CONVULSIONS 09/08/2018, DENIZ Silva Ot T82.855D STENOSIS OF CORONARY ARTERY STENT, SUBSE 09/08/2018, DENIZ Silva Ot Z66 DO NOT RESUSCITATE 09/08/2018 GELDER DO, DENIZ Silva Ot Z79.4 SNF (CURRENT) USE OF INSULIN 09/08/2018, DENIZ Silva Ot E11.42 TYPE 2 DIABETES MELLITUS WITH DIABETIC P 09/08/2018, DENIZ Silva Ot E11.649 TYPE 2 DIABETES MELLITUS WITH HYPOGLYCEM 09/08/2018 GELLENDER DO, DENIZ Silva Ot F02.80 DEMENTIA IN OTH DISEASES CLASSD ELSWHR W 09/08/2018 GELLENDER DO, DENIZ Silva Ot G31.83 DEMENTIA WITH LEWY BODIES 09/08/2018 GELLENDER DO, DENIZ Silva Ot G47.30 SLEEP APNEA, UNSPECIFIED 09/08/2018 GELLENDER DO, DENIZ Silva Ot I10 ESSENTIAL (PRIMARY) HYPERTENSION 09/08/2018 GELLENDER DO, DENIZ Silva Ot I25.10 ATHSCL HEART DISEASE OF [place] CORONARY 09/08/2018 GELLENDER DO, DENIZ Silva Ot I48.0 PAROXYSMAL ATRIAL FIBRILLATION 09/08/2018 GELLENDER DO, DENIZ Silva Ot I69.351 HEMIPLGA FOLLOWING CEREBRAL INFRC AFF RI 09/08/2018 GELLENDER DO, DENIZ Silva Ot N40.1 BENIGN PROSTATIC HYPERPLASIA WITH LOWER 09/08/2018 GELLENDER DO, DENIZ Silva Ot R26.81 UNSTEADINESS ON FEET 09/08/2018 GELLENDER DO, DENIZ Silva Ot R32 UNSPECIFIED URINARY INCONTINENCE 09/08/2018 GELLENDER DO, DENIZ Silva Ot R41.82 ALTERED MENTAL STATUS, UNSPECIFIED 09/08/2018 GELLENDER DO, DENIZ Silva Ot R53.1 WEAKNESS 09/08/2018 GELLENDER DO, DENIZ Silva Ot R56.9 UNSPECIFIED CONVULSIONS 09/08/2018 GELLENDER DO, DENIZ Silva Ot T82.855D STENOSIS OF CORONARY ARTERY STENT, SUBSE 09/08/2018 GELLENDER DO, DENIZ Silva Ot Z66 DO NOT RESUSCITATE 09/08/2018 GELLENDER DO, DENIZ Silva Ot 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 09/10/2018 GELLENDER DO, DENIZ Silva Ot E11.42 TYPE 2 DIABETES MELLITUS WITH DIABETIC P 09/10/2018 GELLENDER DO, DENIZ Silva Ot E11.649 TYPE 2 DIABETES MELLITUS WITH HYPOGLYCEM 09/10/2018 GELLENDER DO, DENIZ Silva Ot F02.80 DEMENTIA IN OTH DISEASES CLASSD ELSWHR W 09/10/2018 GELLENDER DO, DENIZ Silva Ot G31.83 DEMENTIA WITH LEWY BODIES 09/10/2018 GELLENDER DO, DENIZ Silva Ot G47.30 SLEEP APNEA, UNSPECIFIED 09/10/2018 GELLENDER DO, DENIZ Silva Ot I10 ESSENTIAL (PRIMARY) HYPERTENSION 09/10/2018 GELLENDER DO, DENIZ Silva Ot I25.10 ATHSCL HEART DISEASE OF [place] CORONARY 09/10/2018 GELLENDER , DENIZ Silva Ot I48.0 PAROXYSMAL ATRIAL FIBRILLATION 09/10/2018 GELLENDER , DENIZ Silva Ot I69.351 HEMIPLGA FOLLOWING CEREBRAL INFRC AFF RI 09/10/2018 GELLENDER DO, DENIZ Silva Ot N40.1 BENIGN PROSTATIC HYPERPLASIA WITH LOWER 09/10/2018 GELLENDER DO, DENIZ Silva Ot R26.81 UNSTEADINESS ON FEET 09/10/2018 GELLENDER , DENIZ Silva Ot R32 UNSPECIFIED URINARY INCONTINENCE 09/10/2018 GELLENDER , DENIZ Silva Ot R41.82 ALTERED MENTAL STATUS, UNSPECIFIED 09/10/2018 GELLENDER , DENIZ Silva Ot R53.1 WEAKNESS 09/10/2018 GELLENDER DO, DENIZ Silva Ot R56.9 UNSPECIFIED CONVULSIONS 09/10/2018 GELDER , DENIZ Silva Ot T82.855D STENOSIS OF CORONARY ARTERY STENT, SUBSE 09/10/2018 GELLENDER , DENIZ Silva Ot Z66 DO NOT RESUSCITATE 09/10/2018 GELLENDER , DENIZ Silva Ot Z79.4 SNF (CURRENT) USE OF INSULIN 09/17/2018, DENIZ Silva Ot E11.42 TYPE 2 DIABETES MELLITUS WITH DIABETIC P 09/17/2018DER , DENIZ Silva Ot E11.649 TYPE 2 DIABETES MELLITUS WITH HYPOGLYCEM 09/17/2018, DENIZ Silva Ot F02.80 DEMENTIA IN OTH DISEASES CLASSD ELSWHR W 09/17/2018 GELLENDER DO, DENIZ Silva Ot G31.83 DEMENTIA WITH LEWY BODIES 09/17/2018 GELLENDER DO, DENIZ Silva Ot G47.30 SLEEP APNEA, UNSPECIFIED 09/17/2018 GELLENDER DO, DENIZ Silva Ot I10 ESSENTIAL (PRIMARY) HYPERTENSION 09/17/2018 GELLENDER , DENIZ Silva Ot I25.10 ATHSCL HEART DISEASE OF [place] CORONARY 09/17/2018 GELLENDER DO, DENIZ Silva Ot I48.0 PAROXYSMAL ATRIAL FIBRILLATION 09/17/2018 GELLENDER DO, DENIZ Silav Ot I69.351 HEMIPLGA FOLLOWING CEREBRAL INFRC AFF RI 09/17/2018 GELLENDER DO, DENIZ Silva Ot N40.1 BENIGN PROSTATIC HYPERPLASIA WITH LOWER 09/17/2018 GELLENDER DO, DENIZ Silva Ot R26.81 UNSTEADINESS ON FEET 09/17/2018 GELLENDER DO, DENIZ Silva Ot R32 UNSPECIFIED URINARY INCONTINENCE 09/17/2018 GELLENDER DO, DENIZ Silva Ot R41.82 ALTERED MENTAL STATUS, UNSPECIFIED 09/17/2018 GELLENDER DO, DENIZ Silva Ot R53.1 WEAKNESS 09/17/2018 GELLENDER DO, DENIZ Silva Ot R56.9 UNSPECIFIED CONVULSIONS 09/17/2018 GELLENDER DO, DENIZ Silva Ot T82.855D STENOSIS OF CORONARY ARTERY STENT, SUBSE 09/17/2018 GELLENDER DO, DENIZ Silva Ot Z66 DO NOT RESUSCITATE 09/17/2018 GELLENDER DO, DENIZ Silva Ot 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 09/27/2018 YOVANY DANIELS MD E Ot E11.4 2 TYPE 2 DIABETES MELLITUS WITH DIABETIC P 09/27/2018 YOVANY DANIELS MD E Ot E11.6 49 TYPE 2 DIABETES MELLITUS WITH HYPOGLYCEM 09/27/2018 YOVANY DANIELS MD E Ot E11.6 5 TYPE 2 DIABETES MELLITUS WITH HYPERGLYCE 09/27/2018 FRANCES GUTIÉRREZ YOVANY E Ot E75.6 LIPID STORAGE DISORDER, UNSPECIFIED 09/27/2018 FRANCES GUTIÉRREZ YOVANY E Ot F03.9 0 UNSPECIFIED DEMENTIA WITHOUT BEHAVIORAL 09/27/2018 FRANCES GUTIÉRREZ YOVANY E Ot G20 PARKINSON'S DISEASE 09/27/2018 FRANCES GUTIÉRREZ YOVANY E Ot G47.3 0 SLEEP APNEA, UNSPECIFIED 09/27/2018 FRANCES GUTIÉRREZ YOVANY E Ot I12.9 HYPERTENSIVE CHRONIC KIDNEY DISEASE W ST 09/27/2018 CECE DANIELS MDIC E Ot I25.1 0 ATHSCL HEART DISEASE OF [place] CORONARY 09/27/2018 YOVANY DANIELS MD E Ot I34.0 NONRHEUMATIC MITRAL (VALVE) INSUFFICIENC 09/27/2018 YOVANY DANIELS MD E Ot I48.0 PAROXYSMAL ATRIAL FIBRILLATION 09/27/2018 FRANCES GUTIÉRREZ YOVANY E Ot I69.3 53 HEMIPLGA FOLLOWING CEREBRAL INFRC AFF RI 09/27/2018 YOVANY DANIELS MD E Ot K59.0 0 CONSTIPATION, UNSPECIFIED 09/27/2018 FRANCES GUTIÉRREZ YOVANY E Ot L89.3 12 PRESSURE ULCER OF RIGHT BUTTOCK, STAGE 2 09/27/2018 YOVANY DANIELS MD, Ot M47.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 09/27/2018 YOVANY DANIELS MD Ot R32 UNSPECIFIED URINARY INCONTINENCE 09/27/2018 YOVANY DANIELS MD, Ot R33.9 RETENTION OF URINE, UNSPECIFIED 09/27/2018 YOVANY DANIELS MD Ot T82.855A STENOSIS OF CORONARY ARTERY STENT, INITI 09/27/2018 YOVANY DANIELS MD, Ot 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 42 TYPE 2 DIABETES MELLITUS WITH DIABETIC P 08/18/2019 SEBASTIÁN VALLE MD Ot E11.621 TYPE 2 DIABETES MELLITUS WITH FOOT ULCER 08/18/2019 SEBASTIÁN VALLE MD Ot E78. 5 HYPERLIPIDEMIA, UNSPECIFIED 08/18/2019 SEBASTIÁN VALLE MD Ot F03. 90 UNSPECIFIED DEMENTIA WITHOUT BEHAVIORAL 08/18/2019 SEBASTIÁN VALLE MD Ot G47. 30 SLEEP APNEA, UNSPECIFIED 08/18/2019 SEBASTIÁN VALLE MD Ot I08. 3 COMB RHEUMATIC DISORD OF MITRAL, AORTIC 08/18/2019 SEBASTIÁN VALLE MD Ot I10 ESSENTIAL (PRIMARY) HYPERTENSION 08/18/2019 SEBASTIÁN VALLE MD, Ot I25. 10 ATHSCL HEART DISEASE OF [place] CORONARY 08/18/2019 SEBASTIÁN VALLE MD Ot I47. 2 VENTRICULAR TACHYCARDIA 08/18/2019 SEBASTIÁN VALLE MD Ot I48. 0 PAROXYSMAL ATRIAL FIBRILLATION 08/18/2019 SEBASTIÁN VALLE MD Ot I49. 5 SICK SINUS SYNDROME 08/18/2019 SEBASTIÁN VALLE MD Ot I65. 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 01 SNF (CURRENT) USE OF ANTICOAGULANT 08/18/2019 SEBASTIÁN VALLE MD Ot Z79.899 OTHER INDUSTRIAL MANAGEMENT TEACHER (CURRENT) DRUG THERAPY 08/18/2019 SEBASTIÁN VALLE MD Ot Z82. 49 FAMILY HX OF ISCHEM HEART DIS AND OTH DI 08/18/2019 SEBASTIÁN VALLE MD, Ot Z87.891 PERSONAL HISTORY OF NICOTINE DEPENDENCE 08/22/2019 SEBASTIÁN VALLE MD Ot E11. 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 5 HYPERLIPIDEMIA, UNSPECIFIED 08/22/2019 SEBASTIÁN VALLE MD Ot F03. 90 UNSPECIFIED DEMENTIA WITHOUT BEHAVIORAL 08/22/2019 SEBASTIÁN VALLE MD Ot G47. 30 SLEEP APNEA, UNSPECIFIED 08/22/2019 SEBASTIÁN VALLE MD Ot I08. 3 COMB RHEUMATIC DISORD OF MITRAL, AORTIC 08/22/2019 SEBASTIÁN VALLE MD Ot I10 ESSENTIAL (PRIMARY) HYPERTENSION 08/22/2019 SEBASTIÁN VALLE MD Ot I25. 10 ATHSCL HEART DISEASE OF [place] CORONARY 08/22/2019 SEBASTIÁN VALLE MD Ot I47. 2 VENTRICULAR TACHYCARDIA 08/22/2019 SEBASTIÁN VALLE MD Ot I48. 0 PAROXYSMAL ATRIAL FIBRILLATION 08/22/2019 SEBASTIÁN VALLE MD Ot I49. 5 SICK SINUS SYNDROME 08/22/2019 SEBASTIÁN VALLE MD Ot I65. 29 OCCLUSION AND STENOSIS OF UNSPECIFIED CA 08/22/2019 SEBASTIÁN VALLE MD Ot Z79. 01 SNF (CURRENT) USE OF ANTICOAGULANT 08/22/2019 SEBASTIÁN VALLE MD Ot Z79.899 OTHER SNF (CURRENT) DRUG THERAPY 08/22/2019 SEBASTIÁN VALLE MD, Ot Z82. 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 5 HYPERLIPIDEMIA, UNSPECIFIED 08/23/2019 SEBASTIÁN VALLE MD Ot F03. 90 UNSPECIFIED DEMENTIA WITHOUT BEHAVIORAL 08/23/2019 SEBASTIÁN VALLE MD Ot G47. 30 SLEEP APNEA, UNSPECIFIED 08/23/2019 SEBASTIÁN VALLE MD Ot I08. 3 COMB RHEUMATIC DISORD OF MITRAL, AORTIC 08/23/2019 SEBASTIÁN VALLE MD Ot I10 ESSENTIAL (PRIMARY) HYPERTENSION 08/23/2019 SEBASTIÁN VALLE MD Ot I25. 10 ATHSCL HEART DISEASE OF [place] CORONARY 08/23/2019 SEBASTIÁN VALLE MD Ot I47. 2 VENTRICULAR TACHYCARDIA 08/23/2019 SEBASTIÁN VALLE MD Ot I48. 0 PAROXYSMAL ATRIAL FIBRILLATION 08/23/2019 SEBASTIÁN VALLE MD Ot I49. 5 SICK SINUS SYNDROME 08/23/2019 SEBASTIÁN VALLE MD Ot I65. 29 OCCLUSION AND STENOSIS OF UNSPECIFIED CA 08/23/2019 SEBASTIÁN VALLE MD Ot Z79. 01 INDUSTRIAL MANAGEMENT TEACHER (CURRENT) USE OF ANTICOAGULANT 08/23/2019 SEBASTIÁN VALLE MD Ot Z79.899 OTHER SNF (CURRENT) DRUG THERAPY 08/23/2019 SEBASTIÁN VALLE MD Ot Z82. 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 5 HYPERLIPIDEMIA, UNSPECIFIED 08/24/2019 SEBASTIÁN VALLE MD Ot F03. 90 UNSPECIFIED DEMENTIA WITHOUT BEHAVIORAL 08/24/2019 SEBASTIÁN VALLE MD Ot G47. 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 10 ATHSCL HEART DISEASE OF [place] CORONARY 08/24/2019 SEBASTIÁN VALLE MD Ot I47. 2 VENTRICULAR TACHYCARDIA 08/24/2019 SEBASTIÁN VALLE MD Ot I48. 0 PAROXYSMAL ATRIAL FIBRILLATION 08/24/2019 SEBASTIÁN VALLE MD Ot I49. 5 SICK SINUS SYNDROME 08/24/2019 SEBASTIÁN VALLE MD Ot I65. 29 OCCLUSION AND STENOSIS OF UNSPECIFIED CA 08/24/2019 SEBASTIÁN VALLE MD Ot Z79. 01 INDUSTRIAL MANAGEMENT TEACHER (CURRENT) USE OF ANTICOAGULANT 08/24/2019 SEBASTIÁN VALLE MD Ot Z79.899 OTHER INDUSTRIAL MANAGEMENT TEACHER (CURRENT) DRUG THERAPY 08/24/2019 SEBASTIÁN VALLE MD Ot Z82. 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 5 HYPERLIPIDEMIA, UNSPECIFIED 08/25/2019 SEBASTIÁN VALLE MD Ot F03. 90 UNSPECIFIED DEMENTIA WITHOUT BEHAVIORAL 08/25/2019 SEBASTIÁN VALLE MD Ot G47. 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 10 ATHSCL HEART DISEASE OF [place] CORONARY 08/25/2019 SEBASTIÁN VALLE MD Ot I47. 2 VENTRICULAR TACHYCARDIA 08/25/2019 SEBASTIÁN VALLE MD Ot I48. 0 PAROXYSMAL ATRIAL FIBRILLATION 08/25/2019 SEBASTIÁN VALLE MD Ot I49. 5 SICK SINUS SYNDROME 08/25/2019 SEBASTIÁN VALLE MD Ot I65. 29 OCCLUSION AND STENOSIS OF UNSPECIFIED CA 08/25/2019 SEBASTIÁN VALLE MD Ot Z79. 01 INDUSTRIAL MANAGEMENT TEACHER (CURRENT) USE OF ANTICOAGULANT 08/25/2019 SEBASTIÁN VALLE MD Ot Z79.899 OTHER INDUSTRIAL MANAGEMENT TEACHER (CURRENT) DRUG THERAPY 08/25/2019 SEBASTIÁN VALLE MD Ot Z82. 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 5 HYPERLIPIDEMIA, UNSPECIFIED 08/30/2019 SEBASTIÁN VALLE MD Ot F03. 90 UNSPECIFIED DEMENTIA WITHOUT BEHAVIORAL 08/30/2019 SEBASTIÁN VALLE MD Ot G47. 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 10 ATHSCL HEART DISEASE OF [place] CORONARY 08/30/2019 SEBASTIÁN VALLE MD Ot I47. 2 VENTRICULAR TACHYCARDIA 08/30/2019 SEBASTIÁN VALLE MD Ot I48. 0 PAROXYSMAL ATRIAL FIBRILLATION 08/30/2019 SEBASTIÁN VALLE MD Ot I49. 5 SICK SINUS SYNDROME 08/30/2019 SEBASTIÁN VALLE MD Ot I65. 29 OCCLUSION AND STENOSIS OF UNSPECIFIED CA 08/30/2019 SEBASTIÁN VALLE MD Ot Z79. 01 SNF (CURRENT) USE OF ANTICOAGULANT 08/30/2019 SEBASTIÁN VALLE MD Ot Z79.899 OTHER SNF (CURRENT) DRUG THERAPY 08/30/2019 SEBASTIÁN VALLE MD Ot Z82. 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 5 HYPERLIPIDEMIA, UNSPECIFIED 08/30/2019 SEBASTIÁN VALLE MD Ot F03. 90 UNSPECIFIED DEMENTIA WITHOUT BEHAVIORAL 08/30/2019 SEBASTIÁN VALLE MD Ot G47. 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 10 ATHSCL HEART DISEASE OF [place] CORONARY 08/30/2019 SEBASTIÁN VALLE MD Ot I47. 2 VENTRICULAR TACHYCARDIA 08/30/2019 SEBASTIÁN VALLE MD Ot I48. 0 PAROXYSMAL ATRIAL FIBRILLATION 08/30/2019 SEBASTIÁN VALLE MD Ot I49. 5 SICK SINUS SYNDROME 08/30/2019 SEBASTIÁN VALLE MD Ot I65. 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 01 SNF (CURRENT) USE OF ANTICOAGULANT 08/30/2019 SEBASTIÁN VALLE MD Ot Z79.899 OTHER SNF (CURRENT) DRUG THERAPY 08/30/2019 SEBASTIÁN VALLE MD Ot Z82. 49 FAMILY HX OF ISCHE[place] HEART DIS AND OTH DI 08/30/2019 SEBASTIÁN VALLE MD, Ot Z87.891 PERSONAL HISTORY OF NICOTINE DEPENDENCE 08/30/2019 DENIZ KENT DO Ot I50.9 HEART FAILURE, UNSPECIFIED 08/30/2019 DENIZ KENT DO Ot J90 PLEURAL EFFUSION, NOT ELSEWHERE CLASSIFI 08/30/2019 DENIZ KENT DO Ot R91.8 OTHER NONSPECIFIC ABNORMAL FINDING OF [place] 09/06/2019 SEBASTIÁN VALLE MD Ot E11. 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 10 ATHSCL HEART DISEASE OF [place] CORONARY 09/09/2019 GELLENDER DO, DENIZ Silva Ot G93.89 OTHER SPECIFIED DISORDERS OF BRAIN 09/09/2019 GELLENDER DO, DENIZ Silva Ot W19.XXXA UNSPECIFIED FALL, INITIAL ENCOUNTER 09/12/2019 GELLENDER DO, DENIZ Silva Ot I67.82 CEREBRAL ISCHEMIA 09/12/2019 GELLENDER DO, DENIZ Silva Ot J34.89 OTHER SPECIFIED DISORDERS OF NOSE AND NA 09/12/2019 GELLENDER DO, DENIZ Silva Ot W19.XXXA UNSPECIFIED FALL, INITIAL ENCOUNTER 09/12/2019 GELLENDER DO, DENIZ Silva Ot I67.82 CEREBRAL ISCHEMIA 09/12/2019 GELLENDER DO, DENIZ Silva Ot J34.89 OTHER SPECIFIED DISORDERS OF NOSE AND NA 09/12/2019 GELLENDER DO, DENIZ Silva Ot W19.XXXA UNSPECIFIED FALL, INITIAL ENCOUNTER 09/14/2019 MARCELOLENDER DO, DENIZ Silva Ot G93.89 OTHER SPECIFIED DISORDERS OF BRAIN 09/14/2019 GELLENDER DO, DENIZ Silva Ot W19.XXXA UNSPECIFIED FALL, INITIAL ENCOUNTER 09/16/2019 MARCELOLENDER DO, DENIZ Silva Ot J90 PLEURAL EFFUSION, NOT ELSEWHERE CLASSIFI 09/16/2019 MARCELOLENDER DO, DENIZ Silva Ot R09.89 OTH SYMPTOMS AND SIGNS INVOLVING THE CIR 09/17/2019 DONTE DO, DENIZ Silva Ot B95.1 STREPTOCOCCUS, GROUP B, CAUSING DISEASES 09/17/2019 [facility] DENIZ [facility] Ot B96.20 UNSP ESCHERICHIA COLI THE CAUSE OF DI 09/17/2019 GELLENDER DO, DENIZ Silva Ot E11.40 TYPE 2 DIABETES MELLITUS WITH DIABETIC N 09/17/2019 GELLENDER DODENIZ Ot E11.622 TYPE 2 DIABETES MELLITUS WITH OTHER SKIN 09/17/2019 GELLENDER DODENIZ Ot E11.649 TYPE 2 DIABETES MELLITUS WITH HYPOGLYCEM 09/17/2019 GELLENDER DO, DENIZ Silva Ot E86.0 DEHYDRATION 09/17/2019 GELLENDER DO, DENIZ Silva Ot F03.90 UNSPECIFIED DEMENTIA WITHOUT BEHAVIORAL 09/17/2019 GELLENDER DODENIZ Ot G20 PARKINSON'S DISEASE 09/17/2019 [facility] , DENIZ Silva Ot G47.30 SLEEP APNEA, UNSPECIFIED 09/17/2019 [facility], DENIZ Silva Ot I11.0 HYPERTENSIVE HEART DISEASE WITH HEART FA 09/17/2019 [facility] , DENIZ Silva Ot I25.10 ATHSCL HEART DISEASE OF [place] CORONARY 09/17/2019 [facility], DENIZ Silva Ot I47.2 VENTRICULAR TACHYCARDIA 09/17/2019 [facility], DENIZ Silva Ot I48.0 PAROXYSMAL ATRIAL FIBRILLATION 09/17/2019 [facility], DENIZ Silva Ot I49.5 SICK SINUS SYNDROME 09/17/2019, DENIZ Silva Ot 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0 URINARY TRACT INFECTION, SITE NOT SPECIF 09/17/2019 [facility], DENIZ Silva Ot N40.1 BENIGN PROSTATIC HYPERPLASIA WITH LOWER 09/17/2019 [facility], DENIZ Silva Ot R33.9 RETENTION OF URINE, UNSPECIFIED 09/17/2019 [facility] Ot R97.20 ELEVATED PROSTATE SPECIFIC ANTIGEN [PSA] 09/17/2019 [facility], DENIZ Silva Ot Z66 DO NOT RESUSCITATE 09/17/2019 [facility], DENIZ Silva Ot Z79.4 SNF (CURRENT) USE OF INSULIN 09/17/2019 [facility], DENIZ Silva Ot Z87.891 PERSONAL HISTORY OF NICOTINE DEPENDENCE 09/17/2019 [facility], DENIZ Silva Ot Z91.81 HISTORY OF FALLING 09/17/2019 [facility], DENIZ Silva Ot Z95.0 PRESENCE OF CARDIAC PACEMAKER 09/17/2019 [facility], DENIZ Silva Ot Z95.5 PRESENCE OF CORONARY ANGIOPLASTY IMPLANT 09/17/2019 DONTE HOLLIDAY DENIZ Shira Ot I67.82 CEREBRAL ISCHEMIA 09/17/2019 DONTE DENIZ HOLLIDAY Ot J34.89 OTHER SPECIFIED DISORDERS OF NOSE AND NA 09/17/2019 DONTE HOLLIDAYDENIZ Ot W19.XXXA UNSPECIFIED FALL, INITIAL ENCOUNTER 09/21/2019 MARCELOBALAJI DENIZ HOLLIDAY Ot J90 PLEURAL EFFUSION, NOT ELSEWHERE CLASSIFI 09/21/2019 DENIZ KENT DO Ot R09.89 OT SYMPTOMS AND SIGNS INVOLVING THE CIR 09/27/2019 MILTON GILLESPIE DOI Ot E11.42 TYPE 2 DIABETES MELLITUS WITH DIABETIC P 09/27/2019 JULIA GILLESPIE DO Ot E11.65 TYPE 2 DIABETES MELLITUS WITH HYPERGLYCE 09/27/2019 JULIA GILLESPIE DO Ot F02.80 DEMENTIA IN OTH DISEASES CLASSD ELSWHR W 09/27/2019 MILTON GILLESPIE DOI Ot G31.83 DEMENTIA WITH LEWY BODIES 09/27/2019 MILTON GILLESPIE DOI Ot G47.33 OBSTRUCTIVE SLEEP APNEA (ADULT) (PEDIATR 09/27/2019 VERNA HOLLIDAY JULAI Ot 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 09/27/2019 VERNA HOLLIDAY JULIA Ot G91.9 HYDROCEPHALUS, UNSPECIFIED 09/27/2019 VERNA HOLLIDAY JULIA Ot I11.0 HYPERTENSIVE HEART DISEASE WITH HEART FA 09/27/2019 VERNA HOLLIDAY JULIA Ot I25.10 ATHSCL HEART DISEASE OF [place] CORONARY 09/27/2019 VERNA HOLLIDAY JULIA Ot I34.0 NONRHEUMATIC MITRAL (VALVE) INSUFFICIENC 09/27/2019 MILTON GILLESPIE DOI Ot I47.2 VENTRICULAR TACHYCARDIA 09/27/2019 VERNA HOLLIDAY JULIA Ot I48.0 PAROXYSMAL ATRIAL FIBRILLATION 09/27/2019 VERNA HOLLIDAY JULIA Ot I49.5 SICK SINUS SYNDROME 09/27/2019 VERNA HOLLIDAY JULIA Ot I50.30 UNSPECIFIED DIASTOLIC (CONGESTIVE) HEART 09/27/2019 VERNA HOLLIDAY JULIA Ot I69.31 8 OTHER SYMPTOMS AND SIGNS W COGN FNCTNS F 09/27/2019 VERNA HOLLIDAY JULIA Ot I69.35 1 HEMIPLGA FOLLOWING CEREBRAL INFRC AFF RI 09/27/2019 VRENA HOLLIDAY JULIA Ot I70.20 3 UNSP ATHSCL [place] ARTERIES OF EXTREMITI 09/27/2019 GILLESPIE DO, JULIA Ot I72.4 ANEURYSM OF ARTERY OF LOWER EXTREMITY 09/27/2019 GILLES[place] DO, JULIA Ot I97.89 OTH POSTPROC COMP AND DISORDERS OF THE C 09/27/2019 GILLESPIE DO, JULIA Ot J18.9 PNEUMONIA, UNSPECIFIED ORGANISM 09/27/2019 GILLES[place]E DO, JULIA Ot K59.09 OTHER CONSTIPATION 09/27/2019 GILLESPIE DO, JULIA Ot L89.10 9 PRESSURE ULCER OF UNSP PART OF BACK, UNS 09/27/2019 GILLES[place]E DO, JULIA Ot L89.15 9 PRESSURE ULCER OF SACRAL REGION, UNSPECI 09/27/2019 G[place] DO, UJLIA Ot L89.51 9 PRESSURE ULCER OF RIGHT ANKLE, UNSPECIFI 09/27/2019 GILLESPIE DO, JULIA Ot N40.1 BENIGN PROSTATIC HYPERPLASIA WITH LOWER 09/27/2019 GILLES[place] DO, JULIA Ot N47.1 PHIMOSIS 09/27/2019 GILLES[place]E DO, JULIA Ot R29.6 REPEATED FALLS 09/27/2019 GILLES[place] DO, JULIA Ot R33.9 RETENTION OF URINE, UNSPECIFIED 09/27/2019 GILLES[place]E DO, JULIA Ot R41.0 DISORIENTATION, UNSPECIFIED 09/27/2019 GILLES[place] DO, JULIA Ot Z66 DO NOT RESUSCITATE 10/03/2019 DENIZ KENT DO Ot D64.9 ANEMIA, UNSPECIFIED 10/03/2019 DENIZ KENT DO Ot E11.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 2 DIABETES MELLITUS WITH DIABETIC P 10/03/2019 DENIZ KENT DO Ot E11.51 TYPE 2 DIABETES W DIABETIC PERIPHERAL AN 10/03/2019 DENIZ KENT DO Ot E78.00 PURE HYPERCHOLESTEROLEMIA, UNSPECIFIED 10/03/2019 DENIZ KENT DO Ot F03.90 UNSPECIFIED DEMENTIA WITHOUT BEHAVIORAL 10/03/2019 DENIZ KENT DO Ot G20 PARKINSON'S DISEASE 10/03/2019 DENIZ KENT DO Ot G47.30 SLEEP APNEA, UNSPECIFIED 10/03/2019 DENIZ KENT DO Ot I11.0 HYPERTENSIVE HEART DISEASE WITH HEART FA 10/03/2019 DENIZ KENT DO Ot I25.10 ATHSCL HEART DISEASE OF [place] CORONARY 10/03/2019 DENIZ KENT DO Ot I34.0 NONRHEUMATIC MITRAL (VALVE) INSUFFICIENC 10/03/2019, DENIZ Silva Ot I48.0 PAROXYSMAL ATRIAL FIBRILLATION 10/03/2019, DENIZ Silva Ot I50.30 UNSPECIFIED DIASTOLIC (CONGESTIVE) HEART 10/03/2019, DENIZ Silva Ot I69.351 HEMIPLGA FOLLOWING CEREBRAL INFRC AFF RI 10/03/2019, DENIZ Silva Ot I72.4 ANEURYSM OF ARTERY OF LOWER EXTREMITY 10/03/2019, DENIZ Silva Ot I95.1 ORTHOSTATIC HYPOTENSION 10/03/2019, DENIZ Silva Ot J18.9 PNEUMONIA, UNSPECIFIED ORGANISM 10/03/2019, DENIZ Silva Ot J90 PLEURAL EFFUSION, NOT ELSEWHERE CLASSIFI 10/03/2019 [facility], DENIZ Silva Ot N40.0 BENIGN PROSTATIC HYPERPLASIA WITHOUT LOW 10/03/2019, DENIZ Silva Ot R53.1 WEAKNESS 10/03/2019 [facility], DENIZ Silva Ot 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 10/03/2019, DENIZ Silva Ot 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 10/03/2019, DENIZ Silva Ot Z87.891 PERSONAL HISTORY OF NICOTINE DEPENDENCE 10/03/2019, DENIZ Silva Ot Z95.0 PRESENCE OF CARDIAC PACEMAKER 10/03/2019, DENIZ Silva Ot Z95.5 PRESENCE OF CORONARY ANGIOPLASTY IMPLANT 10/03/2019 [facility], DENIZ Silva Ot D64.9 ANEMIA, UNSPECIFIED 10/03/2019, DENIZ Silva Ot E11.42 TYPE 2 DIABETES MELLITUS WITH DIABETIC P 10/03/2019, DENIZ Silva Ot E11.51 TYPE 2 DIABETES W DIABETIC PERIPHERAL AN 10/03/2019, DENIZ Silva Ot E78.00 PURE HYPERCHOLESTEROLEMIA, UNSPECIFIED 10/03/2019, DENIZ Silva Ot F03.90 UNSPECIFIED DEMENTIA WITHOUT BEHAVIORAL 10/03/2019, DENIZ Silva Ot G20 PARKINSON'S DISEASE 10/03/2019, DENIZ Silva Ot G47.30 SLEEP APNEA, UNSPECIFIED 10/03/2019, DENIZ Silva Ot I11.0 HYPERTENSIVE HEART DISEASE WITH HEART FA 10/03/2019 [facility] , DENIZ Silva Ot I25.10 ATHSCL HEART DISEASE OF [place] CORONARY 10/03/2019 [facility] , DENIZ Silva Ot I34.0 NONRHEUMATIC MITRAL (VALVE) INSUFFICIENC 10/03/2019 [facility] , DENIZ Silva Ot I48.0 PAROXYSMAL ATRIAL FIBRILLATION 10/03/2019 [facility] , DENIZ Silva Ot I50.30 UNSPECIFIED DIASTOLIC (CONGESTIVE) HEART 10/03/2019 [facility] , DENIZ Silva Ot I69.351 HEMIPLGA FOLLOWING CEREBRAL INFRC AFF RI 10/03/2019 [facility], DENIZ Silva Ot I72.4 ANEURYSM OF ARTERY OF LOWER EXTREMITY 10/03/2019 [facility] , DENIZ Silva Ot I95.1 ORTHOSTATIC HYPOTENSION 10/03/2019 [facility], DENIZ Silva Ot J18.9 PNEUMONIA, UNSPECIFIED ORGANISM 10/03/2019 [facility] , DENIZ Silva Ot J90 PLEURAL EFFUSION, NOT ELSEWHERE CLASSIFI 10/03/2019 [facility], DENIZ Silva Ot N40.0 BENIGN PROSTATIC HYPERPLASIA WITHOUT LOW 10/03/2019 [facility], DENIZ Silva Ot R53.1 WEAKNESS 10/03/2019 [facility] , DENIZ Silva Ot 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 10/03/2019 [facility], DENIZ Silva Ot 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 10/03/2019 [facility], DENIZ Silva Ot Z87.891 PERSONAL HISTORY OF NICOTINE DEPENDENCE 10/03/2019 [facility], DENIZ Silva Ot Z95.0 PRESENCE OF CARDIAC PACEMAKER 10/03/2019 [facility], DENIZ Silva Ot Z95.5 PRESENCE OF CORONARY ANGIOPLASTY IMPLANT 10/04/2019 [facility], DENIZ Silva Ot D64.9 ANEMIA, UNSPECIFIED 10/04/2019 [facility], DENIZ Silva Ot E11.42 TYPE 2 DIABETES MELLITUS WITH DIABETIC P 10/04/2019 [facility], DENIZ Silva Ot E11.51 TYPE 2 DIABETES W DIABETIC PERIPHERAL AN 10/04/2019 [facility] , DENIZ Silva Ot E78.00 PURE HYPERCHOLESTEROLEMIA, UNSPECIFIED 10/04[facility]2019 [facility] DEMENTIA IN OTH DISEASES CLASSD ELSWHR W 10/04/2019 [facility], DENIZ Silva Ot F03.90 UNSPECIFIED DEMENTIA WITHOUT BEHAVIORAL 10/04/2019DER DO, DENIZ Silva Ot G20 PARKINSON'S DISEASE 10/04/2019DER , DENIZ Silva Ot G47.30 SLEEP APNEA, UNSPECIFIED 10/04/2019 [facility] DO, DENIZ Silva Ot I11.0 HYPERTENSIVE HEART DISEASE WITH HEART FA 10/04/2019 [facility] DO, DENIZ Silva Ot I25.10 ATHSCL HEART DISEASE OF [place] CORONARY 10/04/2019, DENIZ Silva Ot I34.0 NONRHEUMATIC MITRAL (VALVE) INSUFFICIENC 10/04/2019DER , DENIZ Silva Ot I48.0 PAROXYSMAL ATRIAL FIBRILLATION 10/04/2019, DENIZ Silva Ot I50.30 UNSPECIFIED DIASTOLIC (CONGESTIVE) HEART 10/04/2019DER , DENIZ Silva Ot I50.32 CHRONIC DIASTOLIC (CONGESTIVE) HEART JESE 10/04/2019DER , DENIZ Silva Ot I69.351 HEMIPLGA FOLLOWING CEREBRAL INFRC AFF RI 10/04/2019, DENIZ Silva Ot I72.4 ANEURYSM OF ARTERY OF LOWER EXTREMITY 10/04/2019, DENIZ Silva Ot I95.1 ORTHOSTATIC HYPOTENSION 10/04/2019, DENIZ Silva Ot J18.9 PNEUMONIA, UNSPECIFIED ORGANISM 10/04/2019DER , DENIZ Silva Ot J90 PLEURAL EFFUSION, NOT ELSEWHERE CLASSIFI 10/04/2019DER DO, DENIZ Silva Ot N40.0 BENIGN PROSTATIC HYPERPLASIA WITHOUT LOW 10/04/2019, DENIZ Silva Ot R53.1 WEAKNESS 10/04/2019 [facility] DO, DENIZ Silva Ot Z66 DO NOT RESUSCITATE 10/04/2019 [facility] DO, DENIZ Silva Ot 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 10/04/2019DER , DENIZ Silva Ot Z79.4 SNF (CURRENT) USE OF INSULIN 10/04/2019 [facility] DO, DENIZ Silva Ot Z87.891 PERSONAL HISTORY OF NICOTINE DEPENDENCE 10/04/2019 [facility] DO, DENIZ Silva Ot Z95.0 PRESENCE OF CARDIAC PACEMAKER 10/04/2019DER DO, DENIZ Silva Ot Z95.5 PRESENCE OF CORONARY ANGIOPLASTY IMPLANT 10/06/2019 DENIZ KENT DO Ot I50.9 HEART FAILURE, UNSPECIFIED 10/06/2019 DENIZ KENT DO Ot J90 PLEURAL EFFUSION, NOT ELSEWHERE CLASSIFI 10/06/2019 DENIZ KENT DO Ot R91.8 OTHER NONSPECIFIC ABNORMAL FINDING OF [place] 10/07/2019 DENIZ KENT DO Ot G93.89 OTHER SPECIFIED DISORDERS OF BRAIN 10/07/2019 DENIZ KENT DO Ot W19.XXXA UNSPECIFIED FALL, INITIAL ENCOUNTER 10/07/2019 DENIZ KENT DO Ot I67.82 CEREBRAL ISCHEMIA 10/07/2019 DENIZ KENT DO Ot J34.89 OTHER SPECIFIED DISORDERS OF NOSE AND NA 10/07/2019 DENIZ KENT DO Ot W19.XXXA UNSPECIFIED FALL, INITIAL ENCOUNTER Procedures Code Description Performed By Fidel farnsworth On [id number] IN TRODUCE OF [facility] THERAP SUBST INTO [facility] 10/03/2019 Results Test Result Range Complete blood count (CBC) with automate d white blood cell (WBC) differential - 08/04/17 14:00 Blood leukocytes automated count (number/volume) 6.4 10*3/uL 4.3-11.0 Blood erythrocytes automated count (number/volume) 4.20 10*6/uL 4.35-5.85 Venous blood hemoglobin measurement (mass/volume) 13.2 g/dL 13.3-17.7 Blood hematocrit (volume fraction) 38 % 40-54 Automated erythrocyte mean corpuscular volume 90 [ foz_us] 80-99 Automated erythrocyte mean corpuscular h emoglobin (mass per erythrocyte) 31 pg 25-34 Automated erythrocyte mean corpuscular h emoglobin concentration measurement (mass/volume) 35 g/dL 32-36 Automated erythrocyte distribution width ratio 12. 5 % 10.0- 14.5 Automated blood platelet count (count/volume) 187 10*3/uL 130-400 Automated blood platelet mean volume measurement 10.7 [foz_us] 7.4-10.4 Automated blood neutrophils/100 leukocytes 50 % 42-75 Automated blood lymphocytes/100 leukocytes 36 % 12-44 Blood monocytes/100 leukocytes 11 % 0-12 Automated blood eosinophils/100 leukocytes 2 % 0-10 Automated blood basophils/100 leukocytes 0 % 0-10 Blood neutrophils automated count (number/volume) 3.2 10*3 1.8-7.8 Blood lymphocytes automated count (number/volume) 2.3 10*3 1.0-4.0 Blood monocytes automated count (number/volume) 0. 7 10*3 0.0-1.0 Automated eosinophil count 0.2 10*3/uL 0 .0-0.3 Automated blood basophil count (count/volume) 0.0 10*3/uL 0.0-0.1 Comprehensive metabolic panel - 08/04/17 14:00 Serum or plasma sodium measurement (moles/volume) 134 mmol/L 135-145 Serum or plasma potassium measurement (moles/volume) 3.7 mmol/L 3.6-5.0 Serum or plasma chloride measurement (moles/volume) 104 mmol/L 98-107 Carbon dioxide 25 mmol/L 21-32 Serum or plasma anion gap determination (moles/volume) 5 mmol/L 5-14 Serum or plasma urea nitrogen measurement (mass/volume ) 19 mg/dL 7-18 Serum or plasma creatinine measurement (mass/volume) 1.15 mg/dL 0.60-1.30 Serum or plasma urea nitrogen/creatinine mass ratio 17 NRG Serum or plasma creatinine measurement w ith calculation of estimated glomerular filtration rate > NRG Serum or plasma glucose measurement (mass/volume) 145 mg/dL 70-105 Serum or plasma calcium measurement (mass/volume) 9.2 mg/dL 8.5-10.1 Serum or plasma total bilirubin measurement (mass/volu me) 0.5 mg/dL 0.1-1.0 Serum or plasma alkaline phosphatase irena surement (enzymatic activity/volume) 102 U/L 40-136 Serum or plasma aspartate aminotransfera se measurement (enzymatic activity/volume) 20 U/L 5-34 Serum or plasma alanine aminotransferase measurement (enzymatic activity/volume) 28 U/L 0-55 Serum or plasma protein measurement (mass/volume) 6.5 g/dL 6.4-8.2 Serum or plasma albumin measurement (mass/volume) 3.4 g/dL 3.2-4.5 Magnesium - 08/04/17 14:00 Magnesium 2.0 mg/dL 1.8-2.4 Serum or plasma lithium measurement (mol es/volume) - 08/04/17 14:00 BNP level 212.2 pg/mL <100.0 THYROID STIMULATING HORMONE - 08/04/17 1 4:00 THYROID STIMULATING HORMONE 0.88 u[iU]/mL 0.35-4.94 Serum or plasma phenytoin measurement (m ass/volume) - 08/04/17 14:00 Serum or plasma phenytoin measurement (mass/volume) 8.5 ug/mL 10.0-20.0 Complete urinalysis with reflex to cultu re - 08/04/17 15:17 Urine color determination YELLOW NRG Urine clarity determination CLEAR NR G Urine pH measurement by test strip 7 5-9 Specific gravity of urine by test strip 1.015 1.016-1.022 Urine protein assay by test strip, semi-quantitative 3+ NEGATIVE Urine glucose detection by automated test strip NE GATIVE NEGATIVE Erythrocytes detection in urine sediment by light micr oscopy 1+ NEGATIVE Urine ketones detection by automated test strip NE GATIVE NEGATIVE Urine nitrite detection by test strip NEGATIVE NEGATIVE Urine total bilirubin detection by test strip NEGA TIVE NEGATIVE Urine urobilinogen measurement by automated test strip (mass/volume) NORMAL NORMAL Urine leukocyte esterase detection by dipstick 1+ NEGATIVE Automated urine sediment erythrocyte cou nt by microscopy (number/high power field) [HPF] NRG Automated urine sediment leukocyte count by microscopy (number/high power field) [HPF] NRG Bacteria detection in urine sediment by light microsco py NEGATIVE NRG Squamous epithelial cells detection in u rine sediment by light microscopy 5-10 NRG Crystals detection in urine sediment by light microsco py NONE NRG Casts detection in urine sediment by light microscopy PRESENT NRG Mucus detection in urine sediment by light microscopy MODERATE NRG Complete urinalysis with reflex to culture NO NRG Hyaline casts detection in urine sediment by light jana roscopy 25-50 NRG Comprehensive metabolic panel - 09/06/18 11:05 Serum or plasma sodium measurement (moles/volume) 140 mmol/L 135-145 Serum or plasma potassium measurement (moles/volume) 4.5 mmol/L 3.6-5.0 Serum or plasma chloride measurement (moles/volume) 105 mmol/L 98-107 Carbon dioxide 24 mmol/L 21-32 Serum or plasma anion gap determination (moles/volume) 11 mmol/L 5-14 Serum or plasma urea nitrogen measurement (mass/volume ) 30 mg/dL 7-18 Serum or plasma creatinine measurement (mass/volume) 1.57 mg/dL 0.60-1.30 Serum or plasma urea nitrogen/creatinine mass ratio 19 NRG Serum or plasma creatinine measurement w ith calculation of estimated glomerular filtration rate 43 NRG Serum or plasma glucose measurement (mass/volume) 163 mg/dL 70-105 Serum or plasma calcium measurement (mass/volume) 10.3 mg/dL 8.5-10.1 Serum or plasma total bilirubin measurement (mass/volu me) 0.6 mg/dL 0.1-1.0 Serum or plasma alkaline phosphatase irena surement (enzymatic activity/volume) 127 U/L 40-136 Serum or plasma aspartate aminotransfera se measurement (enzymatic activity/volume) 19 U/L 5-34 Serum or plasma alanine aminotransferase measurement (enzymatic activity/volume) 24 U/L 0-55 Serum or plasma protein measurement (mass/volume) 7.2 g/dL 6.4-8.2 Serum or plasma albumin measurement (mass/volume) 3.5 g/dL 3.2-4.5 CALCIUM CORRECTED 10.7 mg/dL 8.5-10.1 DILANTIN (PHENYTOIN) - 09/06/18 11:05 DILANTIN PHEN 15.8 % 10.0-20.0 Complete blood count (CBC) with automate d white blood cell (WBC) differential - 09/06/18 13:45 Blood leukocytes automated count (number/volume) 13.0 10*3/uL 4.3-11.0 Blood erythrocytes automated count (number/volume) 4.34 10*6/uL 4.35-5.85 Venous blood hemoglobin measurement (mass/volume) 13.7 g/dL 13.3-17.7 Blood hematocrit (volume fraction) 41 % 40-54 Automated erythrocyte mean corpuscular volume 93 [ foz_us] 80-99 Automated erythrocyte mean corpuscular h emoglobin (mass per erythrocyte) 32 pg 25-34 Automated erythrocyte mean corpuscular h emoglobin concentration measurement (mass/volume) 34 g/dL 32-36 Automated erythrocyte distribution width ratio 12. 8 % 10.0- 14.5 Automated blood platelet count (count/volume) 201 10*3/uL 130-400 Automated blood platelet mean volume measurement 10.7 [foz_us] 7.4-10.4 Automated blood neutrophils/100 leukocytes 71 % 42-75 Automated blood lymphocytes/100 leukocytes 16 % 12-44 Blood monocytes/100 leukocytes 13 % 0-12 Automated blood eosinophils/100 leukocytes 0 % 0-10 Automated blood basophils/100 leukocytes 0 % 0-10 Blood neutrophils automated count (number/volume) 9.2 10*3 1.8-7.8 Blood lymphocytes automated count (number/volume) 2.1 10*3 1.0-4.0 Blood monocytes automated count (number/volume) 1. 6 10*3 0.0-1.0 Automated eosinophil count 0.1 10*3/uL 0 .0-0.3 Automated blood basophil count (count/volume) 0.0 10*3/uL 0.0-0.1 Serum or plasma troponin i.cardiac measu rement (mass/volume) - 09/06/18 13:45 Serum or plasma troponin i.cardiac measurement (mass/v olume) < ng/mL <0.30 Capillary blood glucose measurement by g lucometer (mass/volume) - 09/06/18 16:11 Capillary blood glucose measurement by glucometer (mas s/volume) 165 mg/dL 70-110 Capillary blood glucose measurement by g lucometer (mass/volume) - 09/06/18 20:19 Capillary blood glucose measurement by glucometer (mas s/volume) 229 mg/dL 70-110 Complete urinalysis with reflex to cultu re - 09/06/18 22:55 Urine color determination YELLOW NRG Urine clarity determination CLEAR NR G Urine pH measurement by test strip 6 5-9 Specific gravity of urine by test strip 1.020 1.016-1.022 Urine protein assay by test strip, semi-quantitative 3+ NEGATIVE Urine glucose detection by automated test strip 4+ NEGATIVE Erythrocytes detection in urine sediment by light micr oscopy NEGATIVE NEGATIVE Urine ketones detection by automated test strip NE GATIVE NEGATIVE Urine nitrite detection by test strip NEGATIVE NEGATIVE Urine total bilirubin detection by test strip NEGA TIVE NEGATIVE Urine urobilinogen measurement by automated test strip (mass/volume) NORMAL NORMAL Urine leukocyte esterase detection by dipstick NEG ATIVE NEGATIVE Automated urine sediment erythrocyte cou nt by microscopy (number/high power field) NONE NRG Automated urine sediment leukocyte count by microscopy (number/high power field) NONE NRG Bacteria detection in urine sediment by light microsco py NONE NRG Squamous epithelial cells detection in u rine sediment by light microscopy RARE NRG Crystals detection in urine sediment by light microsco py NONE NRG Casts detection in urine sediment by light microscopy NONE NRG Mucus detection in urine sediment by light microscopy NEGATIVE NRG Complete urinalysis with reflex to culture NO NRG Complete blood count (CBC) with automate d white blood cell (WBC) differential - 09/07/18 04:30 Blood leukocytes automated count (number/volume) 10.9 10*3/uL 4.3-11.0 Blood erythrocytes automated count (number/volume) 3.60 10*6/uL 4.35-5.85 Venous blood hemoglobin measurement (mass/volume) 11.9 g/dL 13.3-17.7 Blood hematocrit (volume fraction) 34 % 40-54 Automated erythrocyte mean corpuscular volume 94 [ foz_us] 80-99 Automated erythrocyte mean corpuscular h emoglobin (mass per erythrocyte) 33 pg 25-34 Automated erythrocyte mean corpuscular h emoglobin concentration measurement (mass/volume) 35 g/dL 32-36 Automated erythrocyte distribution width ratio 12. 6 % 10.0- 14.5 Automated blood platelet count (count/volume) 200 10*3/uL 130-400 Automated blood platelet mean volume measurement 11.3 [foz_us] 7.4-10.4 Automated blood neutrophils/100 leukocytes 56 % 42-75 Automated blood lymphocytes/100 leukocytes 28 % 12-44 Blood monocytes/100 leukocytes 14 % 0-12 Automated blood eosinophils/100 leukocytes 2 % 0-10 Automated blood basophils/100 leukocytes 0 % 0-10 Blood neutrophils automated count (number/volume) 6.1 10*3 1.8-7.8 Blood lymphocytes automated count (number/volume) 3.0 10*3 1.0-4.0 Blood monocytes automated count (number/volume) 1. 6 10*3 0.0-1.0 Automated eosinophil count 0.2 10*3/uL 0 .0-0.3 Automated blood basophil count (count/volume) 0.0 10*3/uL 0.0-0.1 Comprehensive metabolic panel - 09/07/18 04:30 Serum or plasma sodium measurement (moles/volume) 141 mmol/L 135-145 Serum or plasma potassium measurement (moles/volume) 3.9 mmol/L 3.6-5.0 Serum or plasma chloride measurement (moles/volume) 107 mmol/L 98-107 Carbon dioxide 23 mmol/L 21-32 Serum or plasma anion gap determination (moles/volume) 11 mmol/L 5-14 Serum or plasma urea nitrogen measurement (mass/volume ) 27 mg/dL 7-18 Serum or plasma creatinine measurement (mass/volume) 1.20 mg/dL 0.60-1.30 Serum or plasma urea nitrogen/creatinine mass ratio 23 NRG Serum or plasma creatinine measurement w ith calculation of estimated glomerular filtration rate 59 NRG Serum or plasma glucose measurement (mass/volume) 57 mg/dL 70-105 Serum or plasma calcium measurement (mass/volume) 9.9 mg/dL 8.5-10.1 Serum or plasma total bilirubin measurement (mass/volu me) 0.6 mg/dL 0.1-1.0 Serum or plasma alkaline phosphatase irena surement (enzymatic activity/volume) 107 U/L 40-136 Serum or plasma aspartate aminotransfera se measurement (enzymatic activity/volume) 19 U/L 5-34 Serum or plasma alanine aminotransferase measurement (enzymatic activity/volume) 9 U/L 0-55 Serum or plasma protein measurement (mass/volume) 6.5 g/dL 6.4-8.2 Serum or plasma albumin measurement (mass/volume) 3.2 g/dL 3.2-4.5 CALCIUM CORRECTED 10.5 mg/dL 8.5-10.1 Lipid 1996 panel - 09/07/18 04:30 Serum or plasma triglyceride measurement (mass/volume) 67 mg/dL <150 Serum or plasma cholesterol measurement (mass/volume) 138 mg/dL < 200 Serum or plasma cholesterol in HDL measurement (mass/v olume) 45 mg/dL 40-60 Cholesterol in LDL [mass/volume] in serum or plasma by direct assay 73 mg/dL 1-129 Serum or plasma cholesterol in VLDL measurement (mass/ volume) 13 mg/dL 5-40 THYROID STIMULATING HORMONE - 09/07/18 0 4:30 THYROID STIMULATING HORMONE 0.36 u[iU]/mL 0.35-4.94 Magnesium - 09/07/18 04:30 Magnesium 2.3 mg/dL 1.8-2.4 Capillary blood glucose measurement by g lucometer (mass/volume) - 09/07/18 05:51 Capillary blood glucose measurement by glucometer (mas s/volume) 100 mg/dL 70-110 Semen free prostate specific antigen (PS A) measurement (units/volume) - 09/07/18 06:35 Prostate specific ag [mass/volume] in serum or plasma 9.54 % 0.00-4.00 Capillary blood glucose measurement by g lucometer (mass/volume) - 09/07/18 11:30 Capillary blood glucose measurement by glucometer (mas s/volume) 306 mg/dL 70-110 Capillary blood glucose measurement by g lucometer (mass/volume) - 09/07/18 15:43 Capillary blood glucose measurement by glucometer (mas s/volume) 345 mg/dL 70-110 Capillary blood glucose measurement by g lucometer (mass/volume) - 09/07/18 20:24 Capillary blood glucose measurement by glucometer (mas s/volume) 328 mg/dL 70-110 Automated blood complete blood count (he mogram) panel - 09/08/18 04:40 Blood leukocytes automated count (number/volume) 8.7 10*3/uL 4.3-11.0 Blood erythrocytes automated count (number/volume) 3.68 10*6/uL 4.35-5.85 Venous blood hemoglobin measurement (mass/volume) 11.7 g/dL 13.3-17.7 Blood hematocrit (volume fraction) 34 % 40-54 Automated erythrocyte mean corpuscular volume 93 [ foz_us] 80-99 Automated erythrocyte mean corpuscular h emoglobin (mass per erythrocyte) 32 pg 25-34 Automated erythrocyte mean corpuscular h emoglobin concentration measurement (mass/volume) 34 g/dL 32-36 Automated erythrocyte distribution width ratio 12. 3 % 10.0- 14.5 Automated blood platelet count (count/volume) 222 10*3/uL 130-400 Automated blood platelet mean volume measurement 10.8 [foz_us] 7.4-10.4 Whole blood basic metabolic panel - 08/13 05/29 04:40 Serum or plasma sodium measurement (moles/volume) 138 mmol/L 135-145 Serum or plasma potassium measurement (moles/volume) 4.1 mmol/L 3.6-5.0 Serum or plasma chloride measurement (moles/volume) 104 mmol/L 98-107 Carbon dioxide 23 mmol/L 21-32 Serum or plasma anion gap determination (moles/volume) 11 mmol/L 5-14 Serum or plasma urea nitrogen measurement (mass/volume ) 24 mg/dL 7-18 Serum or plasma creatinine measurement (mass/volume) 1.09 mg/dL 0.60-1.30 Serum or plasma urea nitrogen/creatinine mass ratio 22 NRG Serum or plasma creatinine measurement w ith calculation of estimated glomerular filtration rate > NRG Serum or plasma glucose measurement (mass/volume) 96 mg/dL 70-105 Serum or plasma calcium measurement (mass/volume) 9.8 mg/dL 8.5-10.1 Hemoglobin A1c - 09/08/18 04:40 Blood hemoglobin A1C measurement (mass/volume) 8.9 % 4.0-5.6 MEAN BLOOD GLUCOSE 209 % <=126 Capillary blood glucose measurement by g lucometer (mass/volume) - 09/08/18 06:01 Capillary blood glucose measurement by glucometer (mas s/volume) 113 mg/dL 70-110 Capillary blood glucose measurement by g lucometer (mass/volume) - 09/08/18 17:50 Capillary blood glucose measurement by glucometer (mas s/volume) 411 mg/dL 70-110 Capillary blood glucose measurement by g lucometer (mass/volume) - 09/08/18 21:37 Capillary blood glucose measurement by glucometer (mas s/volume) 377 mg/dL 70-110 Capillary blood glucose measurement by g lucometer (mass/volume) - 09/09/18 05:41 Capillary blood glucose measurement by glucometer (mas s/volume) 167 mg/dL 70-110 Capillary blood glucose measurement by g lucometer (mass/volume) - 09/09/18 10:50 Capillary blood glucose measurement by glucometer (mas s/volume) 274 mg/dL 70-110 Capillary blood glucose measurement by g lucometer (mass/volume) - 09/09/18 16:17 Capillary blood glucose measurement by glucometer (mas s/volume) 310 mg/dL 70-110 Capillary blood glucose measurement by g lucometer (mass/volume) - 09/09/18 20:46 Capillary blood glucose measurement by glucometer (mas s/volume) 334 mg/dL 70-110 Capillary blood glucose measurement by g lucometer (mass/volume) - 09/10/18 05:55 Capillary blood glucose measurement by glucometer (mas s/volume) 195 mg/dL 70-110 Capillary blood glucose measurement by g lucometer (mass/volume) - 09/10/18 10:47 Capillary blood glucose measurement by glucometer (mas s/volume) 354 mg/dL 70-110 Capillary blood glucose measurement by g lucometer (mass/volume) - 09/10/18 16:25 Capillary blood glucose measurement by glucometer (mas s/volume) 386 mg/dL 70-110 Capillary blood glucose measurement by g lucometer (mass/volume) - 09/10/18 20:01 Capillary blood glucose measurement by glucometer (mas s/volume) 369 mg/dL 70-110 Capillary blood glucose measurement by g lucometer (mass/volume) - 09/11/18 05:02 Capillary blood glucose measurement by glucometer (mas s/volume) 137 mg/dL 70-110 Capillary blood glucose measurement by g lucometer (mass/volume) - 09/11/18 10:49 Capillary blood glucose measurement by glucometer (mas s/volume) 198 mg/dL 70-110 Capillary blood glucose measurement by g lucometer (mass/volume) - 09/11/18 15:50 Capillary blood glucose measurement by glucometer (mas s/volume) 223 mg/dL 70-110 Capillary blood glucose measurement by g lucometer (mass/volume) - 09/11/18 20:30 Capillary blood glucose measurement by glucometer (mas s/volume) 333 mg/dL 70-110 Capillary blood glucose measurement by g lucometer (mass/volume) - 09/12/18 05:39 Capillary blood glucose measurement by glucometer (mas s/volume) 130 mg/dL 70-110 Capillary blood glucose measurement by g lucometer (mass/volume) - 09/12/18 11:07 Capillary blood glucose measurement by glucometer (mas s/volume) 147 mg/dL 70-110 Capillary blood glucose measurement by g lucometer (mass/volume) - 09/12/18 15:49 Capillary blood glucose measurement by glucometer (mas s/volume) 306 mg/dL 70-110 Capillary blood glucose measurement by g lucometer (mass/volume) - 09/12/18 20:30 Capillary blood glucose measurement by glucometer (mas s/volume) 334 mg/dL 70-110 Capillary blood glucose measurement by g lucometer (mass/volume) - 09/13/18 05:43 Capillary blood glucose measurement by glucometer (mas s/volume) 56 mg/dL 70-110 Capillary blood glucose measurement by g lucometer (mass/volume) - 09/13/18 06:16 Capillary blood glucose measurement by glucometer (mas s/volume) 88 mg/dL 70-110 Capillary blood glucose measurement by g lucometer (mass/volume) - 09/13/18 10:59 Capillary blood glucose measurement by glucometer (mas s/volume) 339 mg/dL 70-110 Capillary blood glucose measurement by g lucometer (mass/volume) - 09/13/18 20:09 Capillary blood glucose measurement by glucometer (mas s/volume) 297 mg/dL 70-110 Capillary blood glucose measurement by g lucometer (mass/volume) - 09/14/18 04:53 Capillary blood glucose measurement by glucometer (mas s/volume) 107 mg/dL 70-110 Automated blood complete blood count (he mogram) panel - 09/14/18 04:55 Blood leukocytes automated count (number/volume) 9.7 10*3/uL 4.3-11.0 Blood erythrocytes automated count (number/volume) 4.01 10*6/uL 4.35-5.85 Venous blood hemoglobin measurement (mass/volume) 12.9 g/dL 13.3-17.7 Blood hematocrit (volume fraction) 37 % 40-54 Automated erythrocyte mean corpuscular volume 92 [ foz_us] 80-99 Automated erythrocyte mean corpuscular h emoglobin (mass per erythrocyte) 32 pg 25-34 Automated erythrocyte mean corpuscular h emoglobin concentration measurement (mass/volume) 35 g/dL 32-36 Automated erythrocyte distribution width ratio 12. 1 % 10.0- 14.5 Automated blood platelet count (count/volume) 295 10*3/uL 130-400 Automated blood platelet mean volume measurement 10.4 [foz_us] 7.4-10.4 Whole blood basic metabolic panel - 01/27 04:55 Serum or plasma sodium measurement (moles/volume) 139 mmol/L 135-145 Serum or plasma potassium measurement (moles/volume) 4.1 mmol/L 3.6-5.0 Serum or plasma chloride measurement (moles/volume) 105 mmol/L 98-107 Carbon dioxide 24 mmol/L 21-32 Serum or plasma anion gap determination (moles/volume) 10 mmol/L 5-14 Serum or plasma urea nitrogen measurement (mass/volume ) 20 mg/dL 7-18 Serum or plasma creatinine measurement (mass/volume) 0.96 mg/dL 0.60-1.30 Serum or plasma urea nitrogen/creatinine mass ratio 21 NRG Serum or plasma creatinine measurement w ith calculation of estimated glomerular filtration rate > NRG Serum or plasma glucose measurement (mass/volume) 110 mg/dL 70-105 Serum or plasma calcium measurement (mass/volume) 10.0 mg/dL 8.5-10.1 Capillary blood glucose measurement by g lucometer (mass/volume) - 09/14/18 11:43 Capillary blood glucose measurement by glucometer (mas s/volume) 156 mg/dL 70-110 Capillary blood glucose measurement by g lucometer (mass/volume) - 09/14/18 15:58 Capillary blood glucose measurement by glucometer (mas s/volume) 233 mg/dL 70-110 Capillary blood glucose measurement by g lucometer (mass/volume) - 09/14/18 20:49 Capillary blood glucose measurement by glucometer (mas s/volume) 313 mg/dL 70-110 Capillary blood glucose measurement by g lucometer (mass/volume) - 09/15/19 04:33 Capillary blood glucose measurement by glucometer (mas s/volume) 92 mg/dL 70-110 Capillary blood glucose measurement by g lucometer (mass/volume) - 09/15/18 11:55 Capillary blood glucose measurement by glucometer (mas s/volume) 188 mg/dL 70-110 Capillary blood glucose measurement by g lucometer (mass/volume) - 09/15/18 15:29 Capillary blood glucose measurement by glucometer (mas s/volume) 320 mg/dL 70-110 Capillary blood glucose measurement by g lucometer (mass/volume) - 09/15/18 21:02 Capillary blood glucose measurement by glucometer (mas s/volume) 342 mg/dL 70-110 Capillary blood glucose measurement by g lucometer (mass/volume) - 09/16/18 04:53 Capillary blood glucose measurement by glucometer (mas s/volume) 120 mg/dL 70-110 Capillary blood glucose measurement by g lucometer (mass/volume) - 09/16/18 10:59 Capillary blood glucose measurement by glucometer (mas s/volume) 224 mg/dL 70-110 Capillary blood glucose measurement by g lucometer (mass/volume) - 09/16/18 15:33 Capillary blood glucose measurement by glucometer (mas s/volume) 398 mg/dL 70-110 Capillary blood glucose measurement by g lucometer (mass/volume) - 09/16/18 21:51 Capillary blood glucose measurement by glucometer (mas s/volume) 353 mg/dL 70-110 Capillary blood glucose measurement by g lucometer (mass/volume) - 09/17/18 05:05 Capillary blood glucose measurement by glucometer (mas s/volume) 148 mg/dL 70-110 Capillary blood glucose measurement by g lucometer (mass/volume) - 09/17/18 09:24 Capillary blood glucose measurement by glucometer (mas s/volume) 211 mg/dL 70-110 Capillary blood glucose measurement by g lucometer (mass/volume) - 09/17/18 10:34 Capillary blood glucose measurement by glucometer (mas s/volume) 209 mg/dL 70-110 Capillary blood glucose measurement by g lucometer (mass/volume) - 09/17/18 15:55 Capillary blood glucose measurement by glucometer (mas s/volume) 314 mg/dL 70-110 Capillary blood glucose measurement by g lucometer (mass/volume) - 09/17/18 20:31 Capillary blood glucose measurement by glucometer (mas s/volume) 449 mg/dL 70-110 Capillary blood glucose measurement by g lucometer (mass/volume) - 09/18/18 06:04 Capillary blood glucose measurement by glucometer (mas s/volume) 211 mg/dL 70-110 Capillary blood glucose measurement by g lucometer (mass/volume) - 09/18/18 11:04 Capillary blood glucose measurement by glucometer (mas s/volume) 206 mg/dL 70-110 Capillary blood glucose measurement by g lucometer (mass/volume) - 09/18/18 15:09 Capillary blood glucose measurement by glucometer (mas s/volume) 256 mg/dL 70-110 Capillary blood glucose measurement by g lucometer (mass/volume) - 09/18/18 20:11 Capillary blood glucose measurement by glucometer (mas s/volume) 209 mg/dL 70-110 Capillary blood glucose measurement by g lucometer (mass/volume) - 09/19/18 04:50 Capillary blood glucose measurement by glucometer (mas s/volume) 151 mg/dL 70-110 Capillary blood glucose measurement by g lucometer (mass/volume) - 09/19/18 11:01 Capillary blood glucose measurement by glucometer (mas s/volume) 236 mg/dL 70-110 Capillary blood glucose measurement by g lucometer (mass/volume) - 09/19/18 15:36 Capillary blood glucose measurement by glucometer (mas s/volume) 325 mg/dL 70-110 Capillary blood glucose measurement by g lucometer (mass/volume) - 09/19/18 19:55 Capillary blood glucose measurement by glucometer (mas s/volume) 330 mg/dL 70-110 Capillary blood glucose measurement by g lucometer (mass/volume) - 09/20/18 04:39 Capillary blood glucose measurement by glucometer (mas s/volume) 209 mg/dL 70-110 Capillary blood glucose measurement by g lucometer (mass/volume) - 09/20/18 11:19 Capillary blood glucose measurement by glucometer (mas s/volume) 247 mg/dL 70-110 Complete blood count (CBC) with automate d white blood cell (WBC) differential - 09/20/18 14:56 Blood leukocytes automated count (number/volume) 8.4 10*3/uL 4.3-11.0 Blood erythrocytes automated count (number/volume) 4.59 10*6/uL 4.35-5.85 Venous blood hemoglobin measurement (mass/volume) 14.8 g/dL 13.3-17.7 Blood hematocrit (volume fraction) 42 % 40-54 Automated erythrocyte mean corpuscular volume 92 [ foz_us] 80-99 Automated erythrocyte mean corpuscular h emoglobin (mass per erythrocyte) 32 pg 25-34 Automated erythrocyte mean corpuscular h emoglobin concentration measurement (mass/volume) 35 g/dL 32-36 Automated erythrocyte distribution width ratio 12. 7 % 10.0- 14.5 Automated blood platelet count (count/volume) 241 10*3/uL 130-400 Automated blood platelet mean volume measurement 10.6 [foz_us] 7.4-10.4 Automated blood neutrophils/100 leukocytes 64 % 42-75 Automated blood lymphocytes/100 leukocytes 23 % 12-44 Blood monocytes/100 leukocytes 11 % 0-12 Automated blood eosinophils/100 leukocytes 3 % 0-10 Automated blood basophils/100 leukocytes 0 % 0-10 Blood neutrophils automated count (number/volume) 5.4 10*3 1.8-7.8 Blood lymphocytes automated count (number/volume) 1.9 10*3 1.0-4.0 Blood monocytes automated count (number/volume) 0. 9 10*3 0.0-1.0 Automated eosinophil count 0.2 10*3/uL 0 .0-0.3 Automated blood basophil count (count/volume) 0.0 10*3/uL 0.0-0.1 Comprehensive metabolic panel - 09/20/18 14:56 Serum or plasma sodium measurement (moles/volume) 137 mmol/L 135-145 Serum or plasma potassium measurement (moles/volume) 4.6 mmol/L 3.6-5.0 Serum or plasma chloride measurement (moles/volume) 104 mmol/L 98-107 Carbon dioxide 23 mmol/L 21-32 Serum or plasma anion gap determination (moles/volume) 10 mmol/L 5-14 Serum or plasma urea nitrogen measurement (mass/volume ) 28 mg/dL 7-18 Serum or plasma creatinine measurement (mass/volume) 1.42 mg/dL 0.60-1.30 Serum or plasma urea nitrogen/creatinine mass ratio 20 NRG Serum or plasma creatinine measurement w ith calculation of estimated glomerular filtration rate 49 NRG Serum or plasma glucose measurement (mass/volume) 322 mg/dL 70-105 Serum or plasma calcium measurement (mass/volume) 9.9 mg/dL 8.5-10.1 Serum or plasma total bilirubin measurement (mass/volu me) 0.3 mg/dL 0.1-1.0 Serum or plasma alkaline phosphatase irena surement (enzymatic activity/volume) 129 U/L 40-136 Serum or plasma aspartate aminotransfera se measurement (enzymatic activity/volume) 62 U/L 5-34 Serum or plasma alanine aminotransferase measurement (enzymatic activity/volume) 14 U/L 0-55 Serum or plasma protein measurement (mass/volume) 6.9 g/dL 6.4-8.2 Serum or plasma albumin measurement (mass/volume) 3.1 g/dL 3.2-4.5 CALCIUM CORRECTED 10.6 mg/dL 8.5-10.1 Capillary blood glucose measurement by g lucometer (mass/volume) - 09/20/18 15:45 Capillary blood glucose measurement by glucometer (mas s/volume) 335 mg/dL 70-110 Capillary blood glucose measurement by g lucometer (mass/volume) - 09/20/18 20:40 Capillary blood glucose measurement by glucometer (mas s/volume) 295 mg/dL 70-110 Capillary blood glucose measurement by g lucometer (mass/volume) - 09/21/18 05:23 Capillary blood glucose measurement by glucometer (mas s/volume) 118 mg/dL 70-110 Capillary blood glucose measurement by g lucometer (mass/volume) - 09/21/18 10:56 Capillary blood glucose measurement by glucometer (mas s/volume) 237 mg/dL 70-110 Capillary blood glucose measurement by g lucometer (mass/volume) - 09/21/18 16:05 Capillary blood glucose measurement by glucometer (mas s/volume) 270 mg/dL 70-110 Capillary blood glucose measurement by g lucometer (mass/volume) - 09/21/18 20:53 Capillary blood glucose measurement by glucometer (mas s/volume) 392 mg/dL 70-110 Capillary blood glucose measurement by g lucometer (mass/volume) - 09/22/18 05:46 Capillary blood glucose measurement by glucometer (mas s/volume) 85 mg/dL 70-110 Capillary blood glucose measurement by g lucometer (mass/volume) - 09/22/18 12:04 Capillary blood glucose measurement by glucometer (mas s/volume) 267 mg/dL 70-110 Capillary blood glucose measurement by g lucometer (mass/volume) - 09/22/18 16:32 Capillary blood glucose measurement by glucometer (mas s/volume) 235 mg/dL 70-110 Capillary blood glucose measurement by g lucometer (mass/volume) - 09/22/18 20:53 Capillary blood glucose measurement by glucometer (mas s/volume) 259 mg/dL 70-110 Capillary blood glucose measurement by g lucometer (mass/volume) - 09/23/18 06:06 Capillary blood glucose measurement by glucometer (mas s/volume) 117 mg/dL 70-110 Whole blood basic metabolic panel - 09/11 12/27 08:25 Serum or plasma sodium measurement (moles/volume) 138 mmol/L 135-145 Serum or plasma potassium measurement (moles/volume) 4.5 mmol/L 3.6-5.0 Serum or plasma chloride measurement (moles/volume) 103 mmol/L 98-107 Carbon dioxide 26 mmol/L 21-32 Serum or plasma anion gap determination (moles/volume) 9 mmol/L 5-14 Serum or plasma urea nitrogen measurement (mass/volume ) 23 mg/dL 7-18 Serum or plasma creatinine measurement (mass/volume) 1.35 mg/dL 0.60-1.30 Serum or plasma urea nitrogen/creatinine mass ratio 17 NRG Serum or plasma creatinine measurement w ith calculation of estimated glomerular filtration rate 52 NRG Serum or plasma glucose measurement (mass/volume) 156 mg/dL 70-105 Serum or plasma calcium measurement (mass/volume) 10.5 mg/dL 8.5-10.1 Capillary blood glucose measurement by g lucometer (mass/volume) - 09/23/18 11:06 Capillary blood glucose measurement by glucometer (mas s/volume) 267 mg/dL 70-110 Capillary blood glucose measurement by g lucometer (mass/volume) - 09/23/18 16:17 Capillary blood glucose measurement by glucometer (mas s/volume) 174 mg/dL 70-110 Capillary blood glucose measurement by g lucometer (mass/volume) - 09/23/18 20:28 Capillary blood glucose measurement by glucometer (mas s/volume) 294 mg/dL 70-110 Capillary blood glucose measurement by g lucometer (mass/volume) - 09/24/18 05:04 Capillary blood glucose measurement by glucometer (mas s/volume) 148 mg/dL 70-110 Capillary blood glucose measurement by g lucometer (mass/volume) - 09/24/18 11:26 Capillary blood glucose measurement by glucometer (mas s/volume) 178 mg/dL 70-110 Capillary blood glucose measurement by g lucometer (mass/volume) - 09/24/18 16:05 Capillary blood glucose measurement by glucometer (mas s/volume) 209 mg/dL 70-110 Capillary blood glucose measurement by g lucometer (mass/volume) - 09/24/18 21:00 Capillary blood glucose measurement by glucometer (mas s/volume) 210 mg/dL 70-110 Capillary blood glucose measurement by g lucometer (mass/volume) - 09/25/18 06:17 Capillary blood glucose measurement by glucometer (mas s/volume) 116 mg/dL 70-110 Capillary blood glucose measurement by g lucometer (mass/volume) - 09/25/18 11:25 Capillary blood glucose measurement by glucometer (mas s/volume) 143 mg/dL 70-110 Capillary blood glucose measurement by g lucometer (mass/volume) - 09/25/18 16:02 Capillary blood glucose measurement by glucometer (mas s/volume) 226 mg/dL 70-110 Capillary blood glucose measurement by g lucometer (mass/volume) - 09/25/19 16:00 Capillary blood glucose measurement by glucometer (mas s/volume) 363 mg/dL 70-110 Capillary blood glucose measurement by g lucometer (mass/volume) - 09/26/18 05:25 Capillary blood glucose measurement by glucometer (mas s/volume) 66 mg/dL 70-110 Capillary blood glucose measurement by g lucometer (mass/volume) - 09/26/18 06:21 Capillary blood glucose measurement by glucometer (mas s/volume) 94 mg/dL 70-110 Capillary blood glucose measurement by g lucometer (mass/volume) - 09/26/18 11:10 Capillary blood glucose measurement by glucometer (mas s/volume) 126 mg/dL 70-110 Capillary blood glucose measurement by g lucometer (mass/volume) - 09/26/18 20:39 Capillary blood glucose measurement by glucometer (mas s/volume) 461 mg/dL 70-110 Capillary blood glucose measurement by g lucometer (mass/volume) - 09/27/18 05:53 Capillary blood glucose measurement by glucometer (mas s/volume) 231 mg/dL 70-110 Capillary blood glucose measurement by g lucometer (mass/volume) - 09/27/18 11:49 Capillary blood glucose measurement by glucometer (mas s/volume) 252 mg/dL 70-110 Capillary blood glucose measurement by g lucometer (mass/volume) - 09/27/18 15:40 Capillary blood glucose measurement by glucometer (mas s/volume) 211 mg/dL 70-110 Complete urinalysis with reflex to cultu re - 03/10/19 07:00 Urine color determination YELLOW NRG Urine clarity determination CLEAR NR G Urine pH measurement by test strip 6 5-9 Specific gravity of urine by test strip 1.020 1.016-1.022 Urine protein assay by test strip, semi-quantitative 3+ NEGATIVE Urine glucose detection by automated test strip 3+ NEGATIVE Erythrocytes detection in urine sediment by light micr oscopy 1+ NEGATIVE Urine ketones detection by automated test strip NE GATIVE NEGATIVE Urine nitrite detection by test strip NEGATIVE NEGATIVE Urine total bilirubin detection by test strip NEGA TIVE NEGATIVE Urine urobilinogen measurement by automated test strip (mass/volume) NORMAL NORMAL Urine leukocyte esterase detection by dipstick 3+ NEGATIVE Automated urine sediment erythrocyte cou nt by microscopy (number/high power field) [HPF] NRG Automated urine sediment leukocyte count by microscopy (number/high power field) [HPF] NRG Bacteria detection in urine sediment by light microsco py TRACE NRG Squamous epithelial cells detection in u rine sediment by light microscopy 5-10 NRG Crystals detection in urine sediment by light microsco py NONE NRG Casts detection in urine sediment by light microscopy NONE NRG Mucus detection in urine sediment by light microscopy NEGATIVE NRG Complete urinalysis with reflex to culture YES NRG Bacterial urine culture - 03/10/19 07:00 Bacterial urine culture YEAST NRG COLONY COUNT 50,000 CFU/ML NRG Automated blood complete blood count (he mogram) panel - 08/17/19 07:12 Blood leukocytes automated count (number/volume) 6.6 10*3/uL 4.3-11.0 Blood erythrocytes automated count (number/volume) 4.20 10*6/uL 4.35-5.85 Venous blood hemoglobin measurement (mass/volume) 13.4 g/dL 13.3-17.7 Blood hematocrit (volume fraction) 40 % 40-54 Automated erythrocyte mean corpuscular volume 94 [ foz_us] 80-99 Automated erythrocyte mean corpuscular h emoglobin (mass per erythrocyte) 32 pg 25-34 Automated erythrocyte mean corpuscular h emoglobin concentration measurement (mass/volume) 34 g/dL 32-36 Automated erythrocyte distribution width ratio 13. 2 % 10.0- 14.5 Automated blood platelet count (count/volume) 164 10*3/uL 130-400 Automated blood platelet mean volume measurement 11.3 [foz_us] 7.4-10.4 PT panel in platelet poor plasma by coag ulation assay - 08/17/19 07:12 Prothrombin time (PT) in platelet poor plasma by coagu lation assay 15.1 s 12.2-14.7 INR in platelet poor plasma or blood by coagulation as say 1.1 0.8-1.4 Activated partial thromboplastin time (a PTT) in platelet poor plasma bycoagulation assay - 08/17/19 07:12 Activated partial thromboplastin time (a PTT) in platelet poor plasma bycoagulation assay 33 s 24-35 Comprehensive metabolic panel - 08/17/19 07:12 Serum or plasma sodium measurement (moles/volume) 140 mmol/L 135-145 Serum or plasma potassium measurement (moles/volume) 3.8 mmol/L 3.6-5.0 Serum or plasma chloride measurement (moles/volume) 104 mmol/L 98-107 Carbon dioxide 28 mmol/L 21-32 Serum or plasma anion gap determination (moles/volume) 8 mmol/L 5-14 Serum or plasma urea nitrogen measurement (mass/volume ) 19 mg/dL 7-18 Serum or plasma creatinine measurement (mass/volume) 1.10 mg/dL 0.60-1.30 Serum or plasma urea nitrogen/creatinine mass ratio 17 NRG Serum or plasma creatinine measurement w ith calculation of estimated glomerular filtration rate > NRG Serum or plasma glucose measurement (mass/volume) 133 mg/dL 70-105 Serum or plasma calcium measurement (mass/volume) 9.4 mg/dL 8.5-10.1 Serum or plasma total bilirubin measurement (mass/volu me) 0.8 mg/dL 0.1-1.0 Serum or plasma alkaline phosphatase irena surement (enzymatic activity/volume) 130 U/L 40-136 Serum or plasma aspartate aminotransfera se measurement (enzymatic activity/volume) 27 U/L 5-34 Serum or plasma alanine aminotransferase measurement (enzymatic activity/volume) 8 U/L 0-55 Serum or plasma protein measurement (mass/volume) 6.0 g/dL 6.4-8.2 Serum or plasma albumin measurement (mass/volume) 3.2 g/dL 3.2-4.5 CALCIUM CORRECTED 10.0 mg/dL 8.5-10.1 Lipid 1996 panel - 08/17/19 07:12 Serum or plasma triglyceride measurement (mass/volume) 60 mg/dL <150 Serum or plasma cholesterol measurement (mass/volume) 115 mg/dL < 200 Serum or plasma cholesterol in HDL measurement (mass/v olume) 38 mg/dL 40-60 Cholesterol in LDL [mass/volume] in serum or plasma by direct assay 62 mg/dL 1-129 Serum or plasma cholesterol in VLDL measurement (mass/ volume) 12 mg/dL 5-40 Methicillin resistant Staphylococcus aur eus (MRSA) screening culture - 08/17/19 07:12 Methicillin resistant Staphylococcus aureus (MRSA) scr eening culture NEG NRG Automated blood complete blood count (he mogram) panel - 08/18/19 03:00 Blood leukocytes automated count (number/volume) 10.7 10*3/uL 4.3-11.0 Blood erythrocytes automated count (number/volume) 3.83 10*6/uL 4.35-5.85 Venous blood hemoglobin measurement (mass/volume) 12.2 g/dL 13.3-17.7 Blood hematocrit (volume fraction) 36 % 40-54 Automated erythrocyte mean corpuscular volume 95 [ foz_us] 80-99 Automated erythrocyte mean corpuscular h emoglobin (mass per erythrocyte) 32 pg 25-34 Automated erythrocyte mean corpuscular h emoglobin concentration measurement (mass/volume) 34 g/dL 32-36 Automated erythrocyte distribution width ratio 13. 5 % 10.0- 14.5 Automated blood platelet count (count/volume) 159 10*3/uL 130-400 Automated blood platelet mean volume measurement 12.0 [foz_us] 7.4-10.4 Whole blood basic metabolic panel - 04/29 03:00 Serum or plasma sodium measurement (moles/volume) 139 mmol/L 135-145 Serum or plasma potassium measurement (moles/volume) 3.7 mmol/L 3.6-5.0 Serum or plasma chloride measurement (moles/volume) 106 mmol/L 98-107 Carbon dioxide 25 mmol/L 21-32 Serum or plasma anion gap determination (moles/volume) 8 mmol/L 5-14 Serum or plasma urea nitrogen measurement (mass/volume ) 20 mg/dL 7-18 Serum or plasma creatinine measurement (mass/volume) 0.94 mg/dL 0.60-1.30 Serum or plasma urea nitrogen/creatinine mass ratio 21 NRG Serum or plasma creatinine measurement w ith calculation of estimated glomerular filtration rate > NRG Serum or plasma glucose measurement (mass/volume) 49 mg/dL 70-105 Serum or plasma calcium measurement (mass/volume) 9.1 mg/dL 8.5-10.1 Capillary blood glucose measurement by g lucometer (mass/volume) - 08/18/19 04:58 Capillary blood glucose measurement by glucometer (mas s/volume) 62 mg/dL 70-110 Capillary blood glucose measurement by g lucometer (mass/volume) - 08/18/19 06:33 Capillary blood glucose measurement by glucometer (mas s/volume) 77 mg/dL 70-110 Complete blood count (CBC) with automate d white blood cell (WBC) differential - 08/25/19 14:33 Blood leukocytes automated count (number/volume) 10.5 10*3/uL 4.3-11.0 Blood erythrocytes automated count (number/volume) 3.78 10*6/uL 4.35-5.85 Venous blood hemoglobin measurement (mass/volume) 11.8 g/dL 13.3-17.7 Blood hematocrit (volume fraction) 37 % 40-54 Automated erythrocyte mean corpuscular volume 97 [ foz_us] 80-99 Automated erythrocyte mean corpuscular h emoglobin (mass per erythrocyte) 31 pg 25-34 Automated erythrocyte mean corpuscular h emoglobin concentration measurement (mass/volume) 32 g/dL 32-36 Automated erythrocyte distribution width ratio 13. 4 % 10.0- 14.5 Automated blood platelet count (count/volume) 198 10*3/uL 130-400 Automated blood platelet mean volume measurement 11.3 [foz_us] 7.4-10.4 Automated blood neutrophils/100 leukocytes 79 % 42-75 Automated blood lymphocytes/100 leukocytes 11 % 12-44 Blood monocytes/100 leukocytes 10 % 0-12 Automated blood eosinophils/100 leukocytes 1 % 0-10 Automated blood basophils/100 leukocytes 0 % 0-10 Blood neutrophils automated count (number/volume) 8.3 10*3 1.8-7.8 Blood lymphocytes automated count (number/volume) 1.1 10*3 1.0-4.0 Blood monocytes automated count (number/volume) 1. 1 10*3 0.0-1.0 Automated eosinophil count 0.1 10*3/uL 0 .0-0.3 Automated blood basophil count (count/volume) 0.0 10*3/uL 0.0-0.1 Whole blood basic metabolic panel - 08/12 04/29 11:45 Serum or plasma sodium measurement (moles/volume) 141 mmol/L 135-145 Serum or plasma potassium measurement (moles/volume) 3.4 mmol/L 3.6-5.0 Serum or plasma chloride measurement (moles/volume) 101 mmol/L 98-107 Carbon dioxide 26 mmol/L 21-32 Serum or plasma anion gap determination (moles/volume) 14 mmol/L 5-14 Serum or plasma urea nitrogen measurement (mass/volume ) 18 mg/dL 7-18 Serum or plasma creatinine measurement (mass/volume) 1.09 mg/dL 0.60-1.30 Serum or plasma urea nitrogen/creatinine mass ratio 17 NRG Serum or plasma creatinine measurement w ith calculation of estimated glomerular filtration rate > NRG Serum or plasma glucose measurement (mass/volume) 159 mg/dL 70-105 Serum or plasma calcium measurement (mass/volume) 9.8 mg/dL 8.5-10.1 Serum or plasma lithium measurement (mol es/volume) - 08/28/19 11:45 BNP PT 598.3 pg/mL <100.0 Complete blood count (CBC) with automate d white blood cell (WBC) differential - 09/14/19 18:35 Blood leukocytes automated count (number/volume) 14.3 10*3/uL 4.3-11.0 Blood erythrocytes automated count (number/volume) 3.98 10*6/uL 4.35-5.85 Venous blood hemoglobin measurement (mass/volume) 12.3 g/dL 13.3-17.7 Blood hematocrit (volume fraction) 37 % 40-54 Automated erythrocyte mean corpuscular volume 94 [ foz_us] 80-99 Automated erythrocyte mean corpuscular h emoglobin (mass per erythrocyte) 31 pg 25-34 Automated erythrocyte mean corpuscular h emoglobin concentration measurement (mass/volume) 33 g/dL 32-36 Automated erythrocyte distribution width ratio 13. 0 % 10.0- 14.5 Automated blood platelet count (count/volume) 237 10*3/uL 130-400 Automated blood platelet mean volume measurement 11.6 [foz_us] 7.4-10.4 Automated blood neutrophils/100 leukocytes 65 % 42-75 Automated blood lymphocytes/100 leukocytes 26 % 12-44 Blood monocytes/100 leukocytes 8 % 0-12 Automated blood eosinophils/100 leukocytes 2 % 0-10 Automated blood basophils/100 leukocytes 0 % 0-10 Blood neutrophils automated count (number/volume) 9.3 10*3 1.8-7.8 Blood lymphocytes automated count (number/volume) 3.7 10*3 1.0-4.0 Blood monocytes automated count (number/volume) 1. 1 10*3 0.0-1.0 Automated eosinophil count 0.2 10*3/uL 0 .0-0.3 Automated blood basophil count (count/volume) 0.0 10*3/uL 0.0-0.1 Blood blood smear finding identification by light micr oscopy YES NRG Blood lactic acid measurement (moles/vol ume) - 09/14/19 18:35 Blood lactic acid measurement (moles/volume) 1.98 mmol/L 0.50-2.00 PT panel in platelet poor plasma by coag ulation assay - 09/14/19 18:35 Prothrombin time (PT) in platelet poor plasma by coagu lation assay 31.5 s 12.2-14.7 INR in platelet poor plasma or blood by coagulation as say 2.9 0.8-1.4 Comprehensive metabolic panel - 09/14/19 18:35 Serum or plasma sodium measurement (moles/volume) 137 mmol/L 135-145 Serum or plasma potassium measurement (moles/volume) 4.4 mmol/L 3.6-5.0 Serum or plasma chloride measurement (moles/volume) 100 mmol/L 98-107 Carbon dioxide 25 mmol/L 21-32 Serum or plasma anion gap determination (moles/volume) 12 mmol/L 5-14 Serum or plasma urea nitrogen measurement (mass/volume ) 26 mg/dL 7-18 Serum or plasma creatinine measurement (mass/volume) 1.49 mg/dL 0.60-1.30 Serum or plasma urea nitrogen/creatinine mass ratio 17 NRG Serum or plasma creatinine measurement w ith calculation of estimated glomerular filtration rate 46 NRG Serum or plasma glucose measurement (mass/volume) 91 mg/dL 70-105 Serum or plasma calcium measurement (mass/volume) 9.3 mg/dL 8.5-10.1 Serum or plasma total bilirubin measurement (mass/volu me) 0.8 mg/dL 0.1-1.0 Serum or plasma alkaline phosphatase irena surement (enzymatic activity/volume) 139 U/L 40-136 Serum or plasma aspartate aminotransfera se measurement (enzymatic activity/volume) 23 U/L 5-34 Serum or plasma alanine aminotransferase measurement (enzymatic activity/volume) < U/L 0-55 Serum or plasma protein measurement (mass/volume) 6.3 g/dL 6.4-8.2 Serum or plasma albumin measurement (mass/volume) 2.9 g/dL 3.2-4.5 CALCIUM CORRECTED 10.2 mg/dL 8.5-10.1 Manual absolute plasma cell count - 12/0 01/28 18:35 Blood monocytes/100 leukocytes 6 % NRG Manual blood segmented neutrophils/100 leukocytes 70 % NRG Manual blood lymphocytes/100 leukocytes 21 % NRG Manual eosinophils/100 leukocytes in nose 3 % NRG Blood erythrocyte morphology finding identification NORMAL NRG Bacterial blood culture - 09/14/19 18:35 Bacterial blood culture NG NRG Bacterial blood culture - 09/14/19 18:58 Bacterial blood culture NG NRG Complete urinalysis with reflex to cultu re - 09/14/19 20:27 Urine color determination ORANGE NRG Urine clarity determination CLOUDY NR G Urine pH measurement by test strip 6.0 5-9 Specific gravity of urine by test strip 1.020 1.016-1.022 Urine protein assay by test strip, semi-quantitative 1+ NEGATIVE Urine glucose detection by automated test strip 1+ NEGATIVE Erythrocytes detection in urine sediment by light micr oscopy TRACE-I NEGATIVE Urine ketones detection by automated test strip TR BEAU NEGATIVE Urine nitrite detection by test strip NEGATIVE NEGATIVE Urine total bilirubin detection by test strip NEGA TIVE NEGATIVE Urine urobilinogen measurement by automated test strip (mass/volume) 0.2 mg/dL < = 1.0 Urine leukocyte esterase detection by dipstick 2+ NEGATIVE Automated urine sediment erythrocyte cou nt by microscopy (number/high power field) [HPF] NRG Automated urine sediment leukocyte count by microscopy (number/high power field) TNTC NRG Bacteria detection in urine sediment by light microsco py FEW NRG Crystals detection in urine sediment by light microsco py NONE NRG Casts detection in urine sediment by light microscopy NONE NRG Mucus detection in urine sediment by light microscopy NEGATIVE NRG Complete urinalysis with reflex to culture YES NRG Bacterial urine culture - 09/14/19 20:27 Bacterial urine culture [id number] NRG COLONY COUNT <10,000 NRG FTX;REPORTABLE SUSCEPTIBILITY REPORTED 09/17/19 10: 05 NRG Dirithromycin susceptibility test by dis k diffusion - 09/14/19 20:27 Gentamicin susceptibility test by minimum inhibitory c oncentration > NRG Trimethoprim/sulfamethoxazole susceptibi lity test by minimum inhibitoryconcentration <= NRG Levofloxacin susceptibility test by minimum inhibitory concentration > NRG Ampicillin susceptibility test by minimum inhibitory c oncentration > NRG Cefazolin susceptibility test by minimum inhibitory co ncentration 4 NRG Ceftriaxone susceptibility test by minimum inhibitory concentration <= NRG Ciprofloxacin susceptibility test by minimum inhibitor y concentration > NRG Meropenem susceptibility test by minimum inhibitory co ncentration <= NRG Nitrofurantoin susceptibility test by mi nimum inhibitory concentration <= NRG Amoxicillin and clavulanate potassium susc JANA = NRG Capillary blood glucose measurement by g lucometer (mass/volume) - 09/15/19 01:58 Capillary blood glucose measurement by glucometer (mas s/volume) 57 mg/dL 70-110 Capillary blood glucose measurement by g lucometer (mass/volume) - 09/15/19 02:42 Capillary blood glucose measurement by glucometer (mas s/volume) 76 mg/dL 70-110 Complete blood count (CBC) with automate d white blood cell (WBC) differential - 09/15/19 06:45 Blood leukocytes automated count (number/volume) 11.4 10*3/uL 4.3-11.0 Blood erythrocytes automated count (number/volume) 3.63 10*6/uL 4.35-5.85 Venous blood hemoglobin measurement (mass/volume) 11.3 g/dL 13.3-17.7 Blood hematocrit (volume fraction) 34 % 40-54 Automated erythrocyte mean corpuscular volume 94 [ foz_us] 80-99 Automated erythrocyte mean corpuscular h emoglobin (mass per erythrocyte) 31 pg 25-34 Automated erythrocyte mean corpuscular h emoglobin concentration measurement (mass/volume) 33 g/dL 32-36 Automated erythrocyte distribution width ratio 12. 6 % 10.0- 14.5 Automated blood platelet count (count/volume) 201 10*3/uL 130-400 Automated blood platelet mean volume measurement 11.4 [foz_us] 7.4-10.4 Automated blood neutrophils/100 leukocytes 65 % 42-75 Automated blood lymphocytes/100 leukocytes 23 % 12-44 Blood monocytes/100 leukocytes 10 % 0-12 Automated blood eosinophils/100 leukocytes 1 % 0-10 Automated blood basophils/100 leukocytes 0 % 0-10 Blood neutrophils automated count (number/volume) 7.4 10*3 1.8-7.8 Blood lymphocytes automated count (number/volume) 2.6 10*3 1.0-4.0 Blood monocytes automated count (number/volume) 1. 2 10*3 0.0-1.0 Automated eosinophil count 0.2 10*3/uL 0 .0-0.3 Automated blood basophil count (count/volume) 0.0 10*3/uL 0.0-0.1 Blood lactic acid measurement (moles/vol ume) - 09/15/19 06:45 Blood lactic acid measurement (moles/volume) 1.01 mmol/L 0.50-2.00 Comprehensive metabolic panel - 09/15/19 06:45 Serum or plasma sodium measurement (moles/volume) 138 mmol/L 135-145 Serum or plasma potassium measurement (moles/volume) 3.6 mmol/L 3.6-5.0 Serum or plasma chloride measurement (moles/volume) 104 mmol/L 98-107 Carbon dioxide 25 mmol/L 21-32 Serum or plasma anion gap determination (moles/volume) 9 mmol/L 5-14 Serum or plasma urea nitrogen measurement (mass/volume ) 23 mg/dL 7-18 Serum or plasma creatinine measurement (mass/volume) 1.14 mg/dL 0.60-1.30 Serum or plasma urea nitrogen/creatinine mass ratio 20 NRG Serum or plasma creatinine measurement w ith calculation of estimated glomerular filtration rate > NRG Serum or plasma glucose measurement (mass/volume) 59 mg/dL 70-105 Serum or plasma calcium measurement (mass/volume) 9.0 mg/dL 8.5-10.1 Serum or plasma total bilirubin measurement (mass/volu me) 0.7 mg/dL 0.1-1.0 Serum or plasma alkaline phosphatase irena surement (enzymatic activity/volume) 119 U/L 40-136 Serum or plasma aspartate aminotransfera se measurement (enzymatic activity/volume) 20 U/L 5-34 Serum or plasma alanine aminotransferase measurement (enzymatic activity/volume) 13 U/L 0-55 Serum or plasma protein measurement (mass/volume) 5.6 g/dL 6.4-8.2 Serum or plasma albumin measurement (mass/volume) 2.8 g/dL 3.2-4.5 CALCIUM CORRECTED 10.0 mg/dL 8.5-10.1 Hemoglobin A1c measurement - 09/15/19 06 :45 Blood hemoglobin A1C measurement (mass/volume) 8.4 % 4.0-5.6 MEAN BLOOD GLUCOSE 194 % <=126 Capillary blood glucose measurement by g lucometer (mass/volume) - 09/15/19 07:51 Capillary blood glucose measurement by glucometer (mas s/volume) 58 mg/dL 70-110 Capillary blood glucose measurement by g lucometer (mass/volume) - 09/15/19 08:56 Capillary blood glucose measurement by glucometer (mas s/volume) 122 mg/dL 70-110 Capillary blood glucose measurement by g lucometer (mass/volume) - 09/15/19 11:04 Capillary blood glucose measurement by glucometer (mas s/volume) 137 mg/dL 70-110 Capillary blood glucose measurement by g lucometer (mass/volume) - 09/15/19 16:29 Capillary blood glucose measurement by glucometer (mas s/volume) 83 mg/dL 70-110 Capillary blood glucose measurement by g lucometer (mass/volume) - 09/15/19 20:34 Capillary blood glucose measurement by glucometer (mas s/volume) 109 mg/dL 70-110 Automated blood complete blood count (he mogram) panel - 09/16/19 05:15 Blood leukocytes automated count (number/volume) 6.5 10*3/uL 4.3-11.0 Blood erythrocytes automated count (number/volume) 3.17 10*6/uL 4.35-5.85 Venous blood hemoglobin measurement (mass/volume) 9.9 g/dL 13.3-17.7 Blood hematocrit (volume fraction) 30 % 40-54 Automated erythrocyte mean corpuscular volume 94 [ foz_us] 80-99 Automated erythrocyte mean corpuscular h emoglobin (mass per erythrocyte) 31 pg 25-34 Automated erythrocyte mean corpuscular h emoglobin concentration measurement (mass/volume) 33 g/dL 32-36 Automated erythrocyte distribution width ratio 12. 4 % 10.0- 14.5 Automated blood platelet count (count/volume) 162 10*3/uL 130-400 Automated blood platelet mean volume measurement 11.8 [foz_us] 7.4-10.4 Comprehensive metabolic panel - 09/16/19 05:15 Serum or plasma sodium measurement (moles/volume) 137 mmol/L 135-145 Serum or plasma potassium measurement (moles/volume) 3.7 mmol/L 3.6-5.0 Serum or plasma chloride measurement (moles/volume) 106 mmol/L 98-107 Carbon dioxide 23 mmol/L 21-32 Serum or plasma anion gap determination (moles/volume) 8 mmol/L 5-14 Serum or plasma urea nitrogen measurement (mass/volume ) 19 mg/dL 7-18 Serum or plasma creatinine measurement (mass/volume) 0.93 mg/dL 0.60-1.30 Serum or plasma urea nitrogen/creatinine mass ratio 20 NRG Serum or plasma creatinine measurement w ith calculation of estimated glomerular filtration rate > NRG Serum or plasma glucose measurement (mass/volume) 50 mg/dL 70-105 Serum or plasma calcium measurement (mass/volume) 8.6 mg/dL 8.5-10.1 Serum or plasma total bilirubin measurement (mass/volu me) 0.8 mg/dL 0.1-1.0 Serum or plasma alkaline phosphatase irena surement (enzymatic activity/volume) 102 U/L 40-136 Serum or plasma aspartate aminotransfera se measurement (enzymatic activity/volume) 18 U/L 5-34 Serum or plasma alanine aminotransferase measurement (enzymatic activity/volume) < U/L 0-55 Serum or plasma protein measurement (mass/volume) 5.1 g/dL 6.4-8.2 Serum or plasma albumin measurement (mass/volume) 2.5 g/dL 3.2-4.5 CALCIUM CORRECTED 9.8 mg/dL 8.5-10.1 Complete urinalysis with reflex to cultu re - 09/16/19 06:48 Urine color determination YELLOW NRG Urine clarity determination CLEAR NR G Urine pH measurement by test strip 7.0 5-9 Specific gravity of urine by test strip 1.010 1.016-1.022 Urine protein assay by test strip, semi-quantitative TRACE NEGATIVE Urine glucose detection by automated test strip NE GATIVE NEGATIVE Erythrocytes detection in urine sediment by light micr oscopy 2+ NEGATIVE Urine ketones detection by automated test strip NE GATIVE NEGATIVE Urine nitrite detection by test strip NEGATIVE NEGATIVE Urine total bilirubin detection by test strip NEGA TIVE NEGATIVE Urine urobilinogen measurement by automated test strip (mass/volume) 1.0 mg/dL < = 1.0 Urine leukocyte esterase detection by dipstick NEG ATIVE NEGATIVE Automated urine sediment erythrocyte cou nt by microscopy (number/high power field) [HPF] NRG Automated urine sediment leukocyte count by microscopy (number/high power field) [HPF] NRG Bacteria detection in urine sediment by light microsco py NEGATIVE NRG Squamous epithelial cells detection in u rine sediment by light microscopy NONE NRG Crystals detection in urine sediment by light microsco py NONE NRG Casts detection in urine sediment by light microscopy NONE NRG Mucus detection in urine sediment by light microscopy NEGATIVE NRG Complete urinalysis with reflex to culture NO NRG Capillary blood glucose measurement by g lucometer (mass/volume) - 09/16/19 06:52 Capillary blood glucose measurement by glucometer (mas s/volume) 66 mg/dL 70-110 Capillary blood glucose measurement by g lucometer (mass/volume) - 09/16/19 11:10 Capillary blood glucose measurement by glucometer (mas s/volume) 261 mg/dL 70-110 Capillary blood glucose measurement by g lucometer (mass/volume) - 09/16/19 15:52 Capillary blood glucose measurement by glucometer (mas s/volume) 151 mg/dL 70-110 Capillary blood glucose measurement by g lucometer (mass/volume) - 09/16/19 20:18 Capillary blood glucose measurement by glucometer (mas s/volume) 180 mg/dL 70-110 Complete blood count (CBC) with automate d white blood cell (WBC) differential - 09/17/19 04:32 Blood leukocytes automated count (number/volume) 7.6 10*3/uL 4.3-11.0 Blood erythrocytes automated count (number/volume) 3.37 10*6/uL 4.35-5.85 Venous blood hemoglobin measurement (mass/volume) 10.3 g/dL 13.3-17.7 Blood hematocrit (volume fraction) 31 % 40-54 Automated erythrocyte mean corpuscular volume 92 [ foz_us] 80-99 Automated erythrocyte mean corpuscular h emoglobin (mass per erythrocyte) 31 pg 25-34 Automated erythrocyte mean corpuscular h emoglobin concentration measurement (mass/volume) 33 g/dL 32-36 Automated erythrocyte distribution width ratio 12. 7 % 10.0- 14.5 Automated blood platelet count (count/volume) 180 10*3/uL 130-400 Automated blood platelet mean volume measurement 11.2 [foz_us] 7.4-10.4 Automated blood neutrophils/100 leukocytes 55 % 42-75 Automated blood lymphocytes/100 leukocytes 30 % 12-44 Blood monocytes/100 leukocytes 10 % 0-12 Automated blood eosinophils/100 leukocytes 5 % 0-10 Automated blood basophils/100 leukocytes 0 % 0-10 Blood neutrophils automated count (number/volume) 4.2 10*3 1.8-7.8 Blood lymphocytes automated count (number/volume) 2.3 10*3 1.0-4.0 Blood monocytes automated count (number/volume) 0. 8 10*3 0.0-1.0 Automated eosinophil count 0.4 10*3/uL 0 .0-0.3 Automated blood basophil count (count/volume) 0.0 10*3/uL 0.0-0.1 Comprehensive metabolic panel - 09/17/19 04:37 Serum or plasma sodium measurement (moles/volume) 136 mmol/L 135-145 Serum or plasma potassium measurement (moles/volume) 4.2 mmol/L 3.6-5.0 Serum or plasma chloride measurement (moles/volume) 105 mmol/L 98-107 Carbon dioxide 24 mmol/L 21-32 Serum or plasma anion gap determination (moles/volume) 7 mmol/L 5-14 Serum or plasma urea nitrogen measurement (mass/volume ) 14 mg/dL 7-18 Serum or plasma creatinine measurement (mass/volume) 0.90 mg/dL 0.60-1.30 Serum or plasma urea nitrogen/creatinine mass ratio 16 NRG Serum or plasma creatinine measurement w ith calculation of estimated glomerular filtration rate > NRG Serum or plasma glucose measurement (mass/volume) 82 mg/dL 70-105 Serum or plasma calcium measurement (mass/volume) 8.9 mg/dL 8.5-10.1 Serum or plasma total bilirubin measurement (mass/volu me) 0.7 mg/dL 0.1-1.0 Serum or plasma alkaline phosphatase irena surement (enzymatic activity/volume) 113 U/L 40-136 Serum or plasma aspartate aminotransfera se measurement (enzymatic activity/volume) 18 U/L 5-34 Serum or plasma alanine aminotransferase measurement (enzymatic activity/volume) < U/L 0-55 Serum or plasma protein measurement (mass/volume) 5.4 g/dL 6.4-8.2 Serum or plasma albumin measurement (mass/volume) 2.7 g/dL 3.2-4.5 CALCIUM CORRECTED 9.9 mg/dL 8.5-10.1 Capillary blood glucose measurement by g lucometer (mass/volume) - 09/17/19 10:32 Capillary blood glucose measurement by glucometer (mas s/volume) 168 mg/dL 70-110 Capillary blood glucose measurement by g lucometer (mass/volume) - 09/17/19 16:05 Capillary blood glucose measurement by glucometer (mas s/volume) 209 mg/dL 70-110 Capillary blood glucose measurement by g lucometer (mass/volume) - 09/17/19 20:55 Capillary blood glucose measurement by glucometer (mas s/volume) 197 mg/dL 70-110 Capillary blood glucose measurement by g lucometer (mass/volume) - 09/18/19 05:10 Capillary blood glucose measurement by glucometer (mas s/volume) 122 mg/dL 70-110 Complete blood count (CBC) with automate d white blood cell (WBC) differential - 09/18/19 05:12 Blood leukocytes automated count (number/volume) 7.2 10*3/uL 4.3-11.0 Blood erythrocytes automated count (number/volume) 3.25 10*6/uL 4.35-5.85 Venous blood hemoglobin measurement (mass/volume) 10.1 g/dL 13.3-17.7 Blood hematocrit (volume fraction) 30 % 40-54 Automated erythrocyte mean corpuscular volume 92 [ foz_us] 80-99 Automated erythrocyte mean corpuscular h emoglobin (mass per erythrocyte) 31 pg 25-34 Automated erythrocyte mean corpuscular h emoglobin concentration measurement (mass/volume) 34 g/dL 32-36 Automated erythrocyte distribution width ratio 12. 5 % 10.0- 14.5 Automated blood platelet count (count/volume) 189 10*3/uL 130-400 Automated blood platelet mean volume measurement 11.0 [foz_us] 7.4-10.4 Automated blood neutrophils/100 leukocytes 54 % 42-75 Automated blood lymphocytes/100 leukocytes 31 % 12-44 Blood monocytes/100 leukocytes 10 % 0-12 Automated blood eosinophils/100 leukocytes 5 % 0-10 Automated blood basophils/100 leukocytes 0 % 0-10 Blood neutrophils automated count (number/volume) 3.9 10*3 1.8-7.8 Blood lymphocytes automated count (number/volume) 2.2 10*3 1.0-4.0 Blood monocytes automated count (number/volume) 0. 7 10*3 0.0-1.0 Automated eosinophil count 0.3 10*3/uL 0 .0-0.3 Automated blood basophil count (count/volume) 0.0 10*3/uL 0.0-0.1 Comprehensive metabolic panel - 09/18/19 05:12 Serum or plasma sodium measurement (moles/volume) 137 mmol/L 135-145 Serum or plasma potassium measurement (moles/volume) 4.1 mmol/L 3.6-5.0 Serum or plasma chloride measurement (moles/volume) 104 mmol/L 98-107 Carbon dioxide 24 mmol/L 21-32 Serum or plasma anion gap determination (moles/volume) 9 mmol/L 5-14 Serum or plasma urea nitrogen measurement (mass/volume ) 15 mg/dL 7-18 Serum or plasma creatinine measurement (mass/volume) 0.97 mg/dL 0.60-1.30 Serum or plasma urea nitrogen/creatinine mass ratio 15 NRG Serum or plasma creatinine measurement w ith calculation of estimated glomerular filtration rate > NRG Serum or plasma glucose measurement (mass/volume) 116 mg/dL 70-105 Serum or plasma calcium measurement (mass/volume) 8.9 mg/dL 8.5-10.1 Serum or plasma total bilirubin measurement (mass/volu me) 0.7 mg/dL 0.1-1.0 Serum or plasma alkaline phosphatase irena surement (enzymatic activity/volume) 116 U/L 40-136 Serum or plasma aspartate aminotransfera se measurement (enzymatic activity/volume) 20 U/L 5-34 Serum or plasma alanine aminotransferase measurement (enzymatic activity/volume) 16 U/L 0-55 Serum or plasma protein measurement (mass/volume) 5.4 g/dL 6.4-8.2 Serum or plasma albumin measurement (mass/volume) 2.7 g/dL 3.2-4.5 CALCIUM CORRECTED 9.9 mg/dL 8.5-10.1 Capillary blood glucose measurement by g lucometer (mass/volume) - 09/18/19 11:07 Capillary blood glucose measurement by glucometer (mas s/volume) 188 mg/dL 70-110 Capillary blood glucose measurement by g lucometer (mass/volume) - 09/18/19 15:11 Capillary blood glucose measurement by glucometer (mas s/volume) 230 mg/dL 70-110 Capillary blood glucose measurement by g lucometer (mass/volume) - 09/18/19 20:18 Capillary blood glucose measurement by glucometer (mas s/volume) 240 mg/dL 70-110 Capillary blood glucose measurement by g lucometer (mass/volume) - 09/19/19 05:48 Capillary blood glucose measurement by glucometer (mas s/volume) 100 mg/dL 70-110 Complete blood count (CBC) with automate d white blood cell (WBC) differential - 09/19/19 06:34 Blood leukocytes automated count (number/volume) 7.1 10*3/uL 4.3-11.0 Blood erythrocytes automated count (number/volume) 3.27 10*6/uL 4.35-5.85 Venous blood hemoglobin measurement (mass/volume) 10.2 g/dL 13.3-17.7 Blood hematocrit (volume fraction) 31 % 40-54 Automated erythrocyte mean corpuscular volume 93 [ foz_us] 80-99 Automated erythrocyte mean corpuscular h emoglobin (mass per erythrocyte) 31 pg 25-34 Automated erythrocyte mean corpuscular h emoglobin concentration measurement (mass/volume) 33 g/dL 32-36 Automated erythrocyte distribution width ratio 12. 7 % 10.0- 14.5 Automated blood platelet count (count/volume) 178 10*3/uL 130-400 Automated blood platelet mean volume measurement 11.2 [foz_us] 7.4-10.4 Automated blood neutrophils/100 leukocytes 52 % 42-75 Automated blood lymphocytes/100 leukocytes 33 % 12-44 Blood monocytes/100 leukocytes 11 % 0-12 Automated blood eosinophils/100 leukocytes 4 % 0-10 Automated blood basophils/100 leukocytes 0 % 0-10 Blood neutrophils automated count (number/volume) 3.7 10*3 1.8-7.8 Blood lymphocytes automated count (number/volume) 2.3 10*3 1.0-4.0 Blood monocytes automated count (number/volume) 0. 8 10*3 0.0-1.0 Automated eosinophil count 0.3 10*3/uL 0 .0-0.3 Automated blood basophil count (count/volume) 0.0 10*3/uL 0.0-0.1 Comprehensive metabolic panel - 09/19/19 06:34 Serum or plasma sodium measurement (moles/volume) 137 mmol/L 135-145 Serum or plasma potassium measurement (moles/volume) 3.9 mmol/L 3.6-5.0 Serum or plasma chloride measurement (moles/volume) 106 mmol/L 98-107 Carbon dioxide 24 mmol/L 21-32 Serum or plasma anion gap determination (moles/volume) 7 mmol/L 5-14 Serum or plasma urea nitrogen measurement (mass/volume ) 16 mg/dL 7-18 Serum or plasma creatinine measurement (mass/volume) 1.08 mg/dL 0.60-1.30 Serum or plasma urea nitrogen/creatinine mass ratio 15 NRG Serum or plasma creatinine measurement w ith calculation of estimated glomerular filtration rate > NRG Serum or plasma glucose measurement (mass/volume) 95 mg/dL 70-105 Serum or plasma calcium measurement (mass/volume) 8.8 mg/dL 8.5-10.1 Serum or plasma total bilirubin measurement (mass/volu me) 0.6 mg/dL 0.1-1.0 Serum or plasma alkaline phosphatase irena surement (enzymatic activity/volume) 118 U/L 40-136 Serum or plasma aspartate aminotransfera se measurement (enzymatic activity/volume) 17 U/L 5-34 Serum or plasma alanine aminotransferase measurement (enzymatic activity/volume) 16 U/L 0-55 Serum or plasma protein measurement (mass/volume) 5.3 g/dL 6.4-8.2 Serum or plasma albumin measurement (mass/volume) 2.7 g/dL 3.2-4.5 CALCIUM CORRECTED 9.8 mg/dL 8.5-10.1 Capillary blood glucose measurement by g lucometer (mass/volume) - 09/19/19 11:06 Capillary blood glucose measurement by glucometer (mas s/volume) 215 mg/dL 70-110 Capillary blood glucose measurement by g lucometer (mass/volume) - 09/19/19 15:40 Capillary blood glucose measurement by glucometer (mas s/volume) 216 mg/dL 70-110 Capillary blood glucose measurement by g lucometer (mass/volume) - 09/19/19 20:13 Capillary blood glucose measurement by glucometer (mas s/volume) 304 mg/dL 70-110 Capillary blood glucose measurement by g lucometer (mass/volume) - 09/20/19 05:44 Capillary blood glucose measurement by glucometer (mas s/volume) 150 mg/dL 70-110 Capillary blood glucose measurement by g lucometer (mass/volume) - 09/20/19 11:14 Capillary blood glucose measurement by glucometer (mas s/volume) 229 mg/dL 70-110 Capillary blood glucose measurement by g lucometer (mass/volume) - 09/20/19 11:42 Capillary blood glucose measurement by glucometer (mas s/volume) 215 mg/dL 70-110 Capillary blood glucose measurement by g lucometer (mass/volume) - 09/20/19 15:26 Capillary blood glucose measurement by glucometer (mas s/volume) 279 mg/dL 70-110 Capillary blood glucose measurement by g lucometer (mass/volume) - 09/20/19 20:18 Capillary blood glucose measurement by glucometer (mas s/volume) 239 mg/dL 70-110 Automated blood complete blood count (he mogram) panel - 09/21/19 05:20 Blood leukocytes automated count (number/volume) 7.9 10*3/uL 4.3-11.0 Blood erythrocytes automated count (number/volume) 3.13 10*6/uL 4.35-5.85 Venous blood hemoglobin measurement (mass/volume) 9.7 g/dL 13.3-17.7 Blood hematocrit (volume fraction) 29 % 40-54 Automated erythrocyte mean corpuscular volume 93 [ foz_us] 80-99 Automated erythrocyte mean corpuscular h emoglobin (mass per erythrocyte) 31 pg 25-34 Automated erythrocyte mean corpuscular h emoglobin concentration measurement (mass/volume) 33 g/dL 32-36 Automated erythrocyte distribution width ratio 12. 8 % 10.0- 14.5 Automated blood platelet count (count/volume) 182 10*3/uL 130-400 Automated blood platelet mean volume measurement 11.2 [foz_us] 7.4-10.4 Comprehensive metabolic panel - 09/21/19 05:20 Serum or plasma sodium measurement (moles/volume) 137 mmol/L 135-145 Serum or plasma potassium measurement (moles/volume) 4.1 mmol/L 3.6-5.0 Serum or plasma chloride measurement (moles/volume) 105 mmol/L 98-107 Carbon dioxide 24 mmol/L 21-32 Serum or plasma anion gap determination (moles/volume) 8 mmol/L 5-14 Serum or plasma urea nitrogen measurement (mass/volume ) 19 mg/dL 7-18 Serum or plasma creatinine measurement (mass/volume) 1.02 mg/dL 0.60-1.30 Serum or plasma urea nitrogen/creatinine mass ratio 19 NRG Serum or plasma creatinine measurement w ith calculation of estimated glomerular filtration rate > NRG Serum or plasma glucose measurement (mass/volume) 99 mg/dL 70-105 Serum or plasma calcium measurement (mass/volume) 8.9 mg/dL 8.5-10.1 Serum or plasma total bilirubin measurement (mass/volu me) 0.6 mg/dL 0.1-1.0 Serum or plasma alkaline phosphatase irena surement (enzymatic activity/volume) 132 U/L 40-136 Serum or plasma aspartate aminotransfera se measurement (enzymatic activity/volume) 18 U/L 5-34 Serum or plasma alanine aminotransferase measurement (enzymatic activity/volume) < U/L 0-55 Serum or plasma protein measurement (mass/volume) 5.3 g/dL 6.4-8.2 Serum or plasma albumin measurement (mass/volume) 2.6 g/dL 3.2-4.5 CALCIUM CORRECTED 10.0 mg/dL 8.5-10.1 Magnesium - 09/21/19 05:20 Magnesium 2.0 mg/dL 1.6-2.4 Capillary blood glucose measurement by g lucometer (mass/volume) - 09/21/19 05:22 Capillary blood glucose measurement by glucometer (mas s/volume) 110 mg/dL 70-110 Capillary blood glucose measurement by g lucometer (mass/volume) - 09/21/19 10:48 Capillary blood glucose measurement by glucometer (mas s/volume) 170 mg/dL 70-110 Capillary blood glucose measurement by g lucometer (mass/volume) - 09/21/19 15:34 Capillary blood glucose measurement by glucometer (mas s/volume) 258 mg/dL 70-110 Capillary blood glucose measurement by g lucometer (mass/volume) - 09/21/19 20:39 Capillary blood glucose measurement by glucometer (mas s/volume) 299 mg/dL 70-110 Capillary blood glucose measurement by g lucometer (mass/volume) - 09/22/19 05:33 Capillary blood glucose measurement by glucometer (mas s/volume) 148 mg/dL 70-110 Capillary blood glucose measurement by g lucometer (mass/volume) - 09/22/19 10:48 Capillary blood glucose measurement by glucometer (mas s/volume) 191 mg/dL 70-110 Capillary blood glucose measurement by g lucometer (mass/volume) - 09/22/19 16:11 Capillary blood glucose measurement by glucometer (mas s/volume) 367 mg/dL 70-110 Capillary blood glucose measurement by g lucometer (mass/volume) - 09/22/19 20:55 Capillary blood glucose measurement by glucometer (mas s/volume) 364 mg/dL 70-110 Automated blood complete blood count (he mogram) panel - 09/23/19 05:25 Blood leukocytes automated count (number/volume) 9.0 10*3/uL 4.3-11.0 Blood erythrocytes automated count (number/volume) 3.44 10*6/uL 4.35-5.85 Venous blood hemoglobin measurement (mass/volume) 10.6 g/dL 13.3-17.7 Blood hematocrit (volume fraction) 32 % 40-54 Automated erythrocyte mean corpuscular volume 92 [ foz_us] 80-99 Automated erythrocyte mean corpuscular h emoglobin (mass per erythrocyte) 31 pg 25-34 Automated erythrocyte mean corpuscular h emoglobin concentration measurement (mass/volume) 34 g/dL 32-36 Automated erythrocyte distribution width ratio 13. 1 % 10.0- 14.5 Automated blood platelet count (count/volume) 188 10*3/uL 130-400 Automated blood platelet mean volume measurement 11.1 [foz_us] 7.4-10.4 Whole blood basic metabolic panel - 09/11 12/28 05:25 Serum or plasma sodium measurement (moles/volume) 136 mmol/L 135-145 Serum or plasma potassium measurement (moles/volume) 4.2 mmol/L 3.6-5.0 Serum or plasma chloride measurement (moles/volume) 105 mmol/L 98-107 Carbon dioxide 21 mmol/L 21-32 Serum or plasma anion gap determination (moles/volume) 10 mmol/L 5-14 Serum or plasma urea nitrogen measurement (mass/volume ) 21 mg/dL 7-18 Serum or plasma creatinine measurement (mass/volume) 0.88 mg/dL 0.60-1.30 Serum or plasma urea nitrogen/creatinine mass ratio 24 NRG Serum or plasma creatinine measurement w ith calculation of estimated glomerular filtration rate > NRG Serum or plasma glucose measurement (mass/volume) 128 mg/dL 70-105 Serum or plasma calcium measurement (mass/volume) 9.2 mg/dL 8.5-10.1 Capillary blood glucose measurement by g lucometer (mass/volume) - 09/23/19 05:54 Capillary blood glucose measurement by glucometer (mas s/volume) 151 mg/dL 70-110 Capillary blood glucose measurement by g lucometer (mass/volume) - 09/23/19 11:00 Capillary blood glucose measurement by glucometer (mas s/volume) 391 mg/dL 70-110 Capillary blood glucose measurement by g lucometer (mass/volume) - 09/23/19 15:30 Capillary blood glucose measurement by glucometer (mas s/volume) 363 mg/dL 70-110 Capillary blood glucose measurement by g lucometer (mass/volume) - 09/23/19 20:48 Capillary blood glucose measurement by glucometer (mas s/volume) 395 mg/dL 70-110 Capillary blood glucose measurement by g lucometer (mass/volume) - 09/24/19 06:12 Capillary blood glucose measurement by glucometer (mas s/volume) 160 mg/dL 70-110 Capillary blood glucose measurement by g lucometer (mass/volume) - 09/24/19 12:10 Capillary blood glucose measurement by glucometer (mas s/volume) 262 mg/dL 70-110 Capillary blood glucose measurement by g lucometer (mass/volume) - 09/24/19 15:56 Capillary blood glucose measurement by glucometer (mas s/volume) 294 mg/dL 70-110 Capillary blood glucose measurement by g lucometer (mass/volume) - 09/24/19 20:33 Capillary blood glucose measurement by glucometer (mas s/volume) 325 mg/dL 70-110 Capillary blood glucose measurement by g lucometer (mass/volume) - 09/25/19 05:50 Capillary blood glucose measurement by glucometer (mas s/volume) 191 mg/dL 70-110 Capillary blood glucose measurement by g lucometer (mass/volume) - 09/25/19 10:51 Capillary blood glucose measurement by glucometer (mas s/volume) 326 mg/dL 70-110 Capillary blood glucose measurement by g lucometer (mass/volume) - 09/25/19 18:31 Capillary blood glucose measurement by glucometer (mas s/volume) 312 mg/dL 70-110 Capillary blood glucose measurement by g lucometer (mass/volume) - 09/25/19 20:55 Capillary blood glucose measurement by glucometer (mas s/volume) 277 mg/dL 70-110 Capillary blood glucose measurement by g lucometer (mass/volume) - 09/26/19 05:50 Capillary blood glucose measurement by glucometer (mas s/volume) 172 mg/dL 70-110 Complete blood count (CBC) with automate d white blood cell (WBC) differential - 09/26/19 06:50 Blood leukocytes automated count (number/volume) 8.6 10*3/uL 4.3-11.0 Blood erythrocytes automated count (number/volume) 2.85 10*6/uL 4.35-5.85 Venous blood hemoglobin measurement (mass/volume) 9.0 g/dL 13.3-17.7 Blood hematocrit (volume fraction) 27 % 40-54 Automated erythrocyte mean corpuscular volume 95 [ foz_us] 80-99 Automated erythrocyte mean corpuscular h emoglobin (mass per erythrocyte) 32 pg 25-34 Automated erythrocyte mean corpuscular h emoglobin concentration measurement (mass/volume) 33 g/dL 32-36 Automated erythrocyte distribution width ratio 13. 4 % 10.0- 14.5 Automated blood platelet count (count/volume) 193 10*3/uL 130-400 Automated blood platelet mean volume measurement 10.9 [foz_us] 7.4-10.4 Automated blood neutrophils/100 leukocytes 62 % 42-75 Automated blood lymphocytes/100 leukocytes 25 % 12-44 Blood monocytes/100 leukocytes 10 % 0-12 Automated blood eosinophils/100 leukocytes 4 % 0-10 Automated blood basophils/100 leukocytes 0 % 0-10 Blood neutrophils automated count (number/volume) 5.4 10*3 1.8-7.8 Blood lymphocytes automated count (number/volume) 2.1 10*3 1.0-4.0 Blood monocytes automated count (number/volume) 0. 8 10*3 0.0-1.0 Automated eosinophil count 0.3 10*3/uL 0 .0-0.3 Automated blood basophil count (count/volume) 0.0 10*3/uL 0.0-0.1 Comprehensive metabolic panel - 09/26/19 06:50 Serum or plasma sodium measurement (moles/volume) 135 mmol/L 135-145 Serum or plasma potassium measurement (moles/volume) 4.3 mmol/L 3.6-5.0 Serum or plasma chloride measurement (moles/volume) 102 mmol/L 98-107 Carbon dioxide 27 mmol/L 21-32 Serum or plasma anion gap determination (moles/volume) 6 mmol/L 5-14 Serum or plasma urea nitrogen measurement (mass/volume ) 28 mg/dL 7-18 Serum or plasma creatinine measurement (mass/volume) 1.18 mg/dL 0.60-1.30 Serum or plasma urea nitrogen/creatinine mass ratio 24 NRG Serum or plasma creatinine measurement w ith calculation of estimated glomerular filtration rate 60 NRG Serum or plasma glucose measurement (mass/volume) 156 mg/dL 70-105 Serum or plasma calcium measurement (mass/volume) 8.9 mg/dL 8.5-10.1 Serum or plasma total bilirubin measurement (mass/volu me) 0.9 mg/dL 0.1-1.0 Serum or plasma alkaline phosphatase irena surement (enzymatic activity/volume) 138 U/L 40-136 Serum or plasma aspartate aminotransfera se measurement (enzymatic activity/volume) 22 U/L 5-34 Serum or plasma alanine aminotransferase measurement (enzymatic activity/volume) < U/L 0-55 Serum or plasma protein measurement (mass/volume) 5.4 g/dL 6.4-8.2 Serum or plasma albumin measurement (mass/volume) 2.6 g/dL 3.2-4.5 CALCIUM CORRECTED 10.0 mg/dL 8.5-10.1 Capillary blood glucose measurement by g lucometer (mass/volume) - 09/26/19 11:01 Capillary blood glucose measurement by glucometer (mas s/volume) 401 mg/dL 70-110 Capillary blood glucose measurement by g lucometer (mass/volume) - 09/26/19 17:04 Capillary blood glucose measurement by glucometer (mas s/volume) 280 mg/dL 70-110 Capillary blood glucose measurement by g lucometer (mass/volume) - 09/26/19 20:49 Capillary blood glucose measurement by glucometer (mas s/volume) 344 mg/dL 70-110 Capillary blood glucose measurement by g lucometer (mass/volume) - 09/27/19 05:54 Capillary blood glucose measurement by glucometer (mas s/volume) 229 mg/dL 70-110 Capillary blood glucose measurement by g lucometer (mass/volume) - 09/27/19 10:48 Capillary blood glucose measurement by glucometer (mas s/volume) 324 mg/dL 70-110 Complete blood count (CBC) with automate d white blood cell (WBC) differential - 09/27/19 15:40 Blood leukocytes automated count (number/volume) 9.7 10*3/uL 4.3-11.0 Blood erythrocytes automated count (number/volume) 2.85 10*6/uL 4.35-5.85 Venous blood hemoglobin measurement (mass/volume) 9.0 g/dL 13.3-17.7 Blood hematocrit (volume fraction) 27 % 40-54 Automated erythrocyte mean corpuscular volume 96 [ foz_us] 80-99 Automated erythrocyte mean corpuscular h emoglobin (mass per erythrocyte) 32 pg 25-34 Automated erythrocyte mean corpuscular h emoglobin concentration measurement (mass/volume) 33 g/dL 32-36 Automated erythrocyte distribution width ratio 13. 7 % 10.0- 14.5 Automated blood platelet count (count/volume) 227 10*3/uL 130-400 Automated blood platelet mean volume measurement 11.0 [foz_us] 7.4-10.4 Automated blood neutrophils/100 leukocytes 77 % 42-75 Automated blood lymphocytes/100 leukocytes 13 % 12-44 Blood monocytes/100 leukocytes 9 % 0-12 Automated blood eosinophils/100 leukocytes 2 % 0-10 Automated blood basophils/100 leukocytes 0 % 0-10 Blood neutrophils automated count (number/volume) 7.4 10*3 1.8-7.8 Blood lymphocytes automated count (number/volume) 1.2 10*3 1.0-4.0 Blood monocytes automated count (number/volume) 0. 8 10*3 0.0-1.0 Automated eosinophil count 0.2 10*3/uL 0 .0-0.3 Automated blood basophil count (count/volume) 0.0 10*3/uL 0.0-0.1 Blood lactic acid measurement (moles/vol ume) - 09/27/19 15:40 Blood lactic acid measurement (moles/volume) 1.61 mmol/L 0.50-2.00 Comprehensive metabolic panel - 09/27/19 15:40 Serum or plasma sodium measurement (moles/volume) 131 mmol/L 135-145 Serum or plasma potassium measurement (moles/volume) 4.8 mmol/L 3.6-5.0 Serum or plasma chloride measurement (moles/volume) 98 mmol/L 98-107 Carbon dioxide 24 mmol/L 21-32 Serum or plasma anion gap determination (moles/volume) 9 mmol/L 5-14 Serum or plasma urea nitrogen measurement (mass/volume ) 35 mg/dL 7-18 Serum or plasma creatinine measurement (mass/volume) 1.45 mg/dL 0.60-1.30 Serum or plasma urea nitrogen/creatinine mass ratio 24 NRG Serum or plasma creatinine measurement w ith calculation of estimated glomerular filtration rate 47 NRG Serum or plasma glucose measurement (mass/volume) 394 mg/dL 70-105 Serum or plasma calcium measurement (mass/volume) 8.7 mg/dL 8.5-10.1 Serum or plasma total bilirubin measurement (mass/volu me) 0.8 mg/dL 0.1-1.0 Serum or plasma alkaline phosphatase irena surement (enzymatic activity/volume) 163 U/L 40-136 Serum or plasma aspartate aminotransfera se measurement (enzymatic activity/volume) 23 U/L 5-34 Serum or plasma alanine aminotransferase measurement (enzymatic activity/volume) 8 U/L 0-55 Serum or plasma protein measurement (mass/volume) 5.7 g/dL 6.4-8.2 Serum or plasma albumin measurement (mass/volume) 2.7 g/dL 3.2-4.5 CALCIUM CORRECTED 9.7 mg/dL 8.5-10.1 Bacterial blood culture - 09/27/19 15:40 Bacterial blood culture NG NRG Bacterial blood culture - 09/27/19 15:50 Bacterial blood culture NG NRG Capillary blood glucose measurement by g lucometer (mass/volume) - 09/27/19 16:12 Capillary blood glucose measurement by glucometer (mas s/volume) 387 mg/dL 70-110 Capillary blood glucose measurement by g lucometer (mass/volume) - 09/27/19 19:47 Capillary blood glucose measurement by glucometer (mas s/volume) 416 mg/dL 70-110 Capillary blood glucose measurement by g lucometer (mass/volume) - 09/27/19 22:28 Capillary blood glucose measurement by glucometer (mas s/volume) 414 mg/dL 70-110 Comprehensive metabolic panel - 09/28/19 05:34 Serum or plasma sodium measurement (moles/volume) 136 mmol/L 135-145 Serum or plasma potassium measurement (moles/volume) 4.3 mmol/L 3.6-5.0 Serum or plasma chloride measurement (moles/volume) 103 mmol/L 98-107 Carbon dioxide 24 mmol/L 21-32 Serum or plasma anion gap determination (moles/volume) 9 mmol/L 5-14 Serum or plasma urea nitrogen measurement (mass/volume ) 27 mg/dL 7-18 Serum or plasma creatinine measurement (mass/volume) 1.05 mg/dL 0.60-1.30 Serum or plasma urea nitrogen/creatinine mass ratio 26 NRG Serum or plasma creatinine measurement w ith calculation of estimated glomerular filtration rate > NRG Serum or plasma glucose measurement (mass/volume) 210 mg/dL 70-105 Serum or plasma calcium measurement (mass/volume) 8.6 mg/dL 8.5-10.1 Serum or plasma total bilirubin measurement (mass/volu me) 0.8 mg/dL 0.1-1.0 Serum or plasma alkaline phosphatase irena surement (enzymatic activity/volume) 153 U/L 40-136 Serum or plasma aspartate aminotransfera se measurement (enzymatic activity/volume) 27 U/L 5-34 Serum or plasma alanine aminotransferase measurement (enzymatic activity/volume) 8 U/L 0-55 Serum or plasma protein measurement (mass/volume) 5.6 g/dL 6.4-8.2 Serum or plasma albumin measurement (mass/volume) 2.7 g/dL 3.2-4.5 CALCIUM CORRECTED 9.6 mg/dL 8.5-10.1 Serum or plasma lithium measurement (mol es/volume) - 09/28/19 05:34 BNP PT 204.7 pg/mL <100.0 Capillary blood glucose measurement by g lucometer (mass/volume) - 09/28/19 05:38 Capillary blood glucose measurement by glucometer (mas s/volume) 234 mg/dL 70-110 Complete blood count (CBC) with automate d white blood cell (WBC) differential - 09/28/19 05:39 Blood leukocytes automated count (number/volume) 9.6 10*3/uL 4.3-11.0 Blood erythrocytes automated count (number/volume) 2.89 10*6/uL 4.35-5.85 Venous blood hemoglobin measurement (mass/volume) 9.1 g/dL 13.3-17.7 Blood hematocrit (volume fraction) 27 % 40-54 Automated erythrocyte mean corpuscular volume 95 [ foz_us] 80-99 Automated erythrocyte mean corpuscular h emoglobin (mass per erythrocyte) 32 pg 25-34 Automated erythrocyte mean corpuscular h emoglobin concentration measurement (mass/volume) 33 g/dL 32-36 Automated erythrocyte distribution width ratio 13. 5 % 10.0- 14.5 Automated blood platelet count (count/volume) 229 10*3/uL 130-400 Automated blood platelet mean volume measurement 10.8 [foz_us] 7.4-10.4 Automated blood neutrophils/100 leukocytes 69 % 42-75 Automated blood lymphocytes/100 leukocytes 18 % 12-44 Blood monocytes/100 leukocytes 10 % 0-12 Automated blood eosinophils/100 leukocytes 3 % 0-10 Automated blood basophils/100 leukocytes 0 % 0-10 Blood neutrophils automated count (number/volume) 6.7 10*3 1.8-7.8 Blood lymphocytes automated count (number/volume) 1.7 10*3 1.0-4.0 Blood monocytes automated count (number/volume) 0. 9 10*3 0.0-1.0 Automated eosinophil count 0.3 10*3/uL 0 .0-0.3 Automated blood basophil count (count/volume) 0.0 10*3/uL 0.0-0.1 Capillary blood glucose measurement by g lucometer (mass/volume) - 09/28/19 11:11 Capillary blood glucose measurement by glucometer (mas s/volume) 316 mg/dL 70-110 Capillary blood glucose measurement by g lucometer (mass/volume) - 09/28/19 16:14 Capillary blood glucose measurement by glucometer (mas s/volume) 283 mg/dL 70-110 Capillary blood glucose measurement by g lucometer (mass/volume) - 09/28/19 20:54 Capillary blood glucose measurement by glucometer (mas s/volume) 297 mg/dL 70-110 Comprehensive metabolic panel - 09/29/19 05:00 Serum or plasma sodium measurement (moles/volume) 138 mmol/L 135-145 Serum or plasma potassium measurement (moles/volume) 4.1 mmol/L 3.6-5.0 Serum or plasma chloride measurement (moles/volume) 105 mmol/L 98-107 Carbon dioxide 23 mmol/L 21-32 Serum or plasma anion gap determination (moles/volume) 10 mmol/L 5-14 Serum or plasma urea nitrogen measurement (mass/volume ) 26 mg/dL 7-18 Serum or plasma creatinine measurement (mass/volume) 1.25 mg/dL 0.60-1.30 Serum or plasma urea nitrogen/creatinine mass ratio 21 NRG Serum or plasma creatinine measurement w ith calculation of estimated glomerular filtration rate 56 NRG Serum or plasma glucose measurement (mass/volume) 102 mg/dL 70-105 Serum or plasma calcium measurement (mass/volume) 8.9 mg/dL 8.5-10.1 Serum or plasma total bilirubin measurement (mass/volu me) 0.8 mg/dL 0.1-1.0 Serum or plasma alkaline phosphatase irena surement (enzymatic activity/volume) 121 U/L 40-136 Serum or plasma aspartate aminotransfera se measurement (enzymatic activity/volume) 33 U/L 5-34 Serum or plasma alanine aminotransferase measurement (enzymatic activity/volume) 8 U/L 0-55 Serum or plasma protein measurement (mass/volume) 5.5 g/dL 6.4-8.2 Serum or plasma albumin measurement (mass/volume) 2.7 g/dL 3.2-4.5 CALCIUM CORRECTED 9.9 mg/dL 8.5-10.1 Complete blood count (CBC) with automate d white blood cell (WBC) differential - 09/29/19 05:50 Blood leukocytes automated count (number/volume) 10.8 10*3/uL 4.3-11.0 Blood erythrocytes automated count (number/volume) 2.87 10*6/uL 4.35-5.85 Venous blood hemoglobin measurement (mass/volume) 9.0 g/dL 13.3-17.7 Blood hematocrit (volume fraction) 27 % 40-54 Automated erythrocyte mean corpuscular volume 94 [ foz_us] 80-99 Automated erythrocyte mean corpuscular h emoglobin (mass per erythrocyte) 31 pg 25-34 Automated erythrocyte mean corpuscular h emoglobin concentration measurement (mass/volume) 33 g/dL 32-36 Automated erythrocyte distribution width ratio 14. 5 % 10.0- 14.5 Automated blood platelet count (count/volume) 268 10*3/uL 130-400 Automated blood platelet mean volume measurement 10.2 [foz_us] 7.4-10.4 Automated blood neutrophils/100 leukocytes 68 % 42-75 Automated blood lymphocytes/100 leukocytes 18 % 12-44 Blood monocytes/100 leukocytes 10 % 0-12 Automated blood eosinophils/100 leukocytes 4 % 0-10 Automated blood basophils/100 leukocytes 0 % 0-10 Blood neutrophils automated count (number/volume) 7.4 10*3 1.8-7.8 Blood lymphocytes automated count (number/volume) 2.0 10*3 1.0-4.0 Blood monocytes automated count (number/volume) 1. 1 10*3 0.0-1.0 Automated eosinophil count 0.4 10*3/uL 0 .0-0.3 Automated blood basophil count (count/volume) 0.0 10*3/uL 0.0-0.1 Capillary blood glucose measurement by g lucometer (mass/volume) - 09/29/19 05:51 Capillary blood glucose measurement by glucometer (mas s/volume) 110 mg/dL 70-110 Capillary blood glucose measurement by g lucometer (mass/volume) - 09/29/19 11:22 Capillary blood glucose measurement by glucometer (mas s/volume) 186 mg/dL 70-110 Capillary blood glucose measurement by g lucometer (mass/volume) - 09/29/19 16:21 Capillary blood glucose measurement by glucometer (mas s/volume) 251 mg/dL 70-110 Capillary blood glucose measurement by g lucometer (mass/volume) - 09/29/19 20:56 Capillary blood glucose measurement by glucometer (mas s/volume) 238 mg/dL 70-110 Capillary blood glucose measurement by g lucometer (mass/volume) - 09/30/19 04:51 Capillary blood glucose measurement by glucometer (mas s/volume) 100 mg/dL 70-110 Capillary blood glucose measurement by g lucometer (mass/volume) - 09/30/19 10:59 Capillary blood glucose measurement by glucometer (mas s/volume) 258 mg/dL 70-110 Capillary blood glucose measurement by g lucometer (mass/volume) - 09/30/19 12:25 Capillary blood glucose measurement by glucometer (mas s/volume) 259 mg/dL 70-110 Capillary blood glucose measurement by g lucometer (mass/volume) - 09/30/19 15:23 Capillary blood glucose measurement by glucometer (mas s/volume) 156 mg/dL 70-110 Capillary blood glucose measurement by g lucometer (mass/volume) - 09/30/19 20:39 Capillary blood glucose measurement by glucometer (mas s/volume) 204 mg/dL 70-110 Comprehensive metabolic panel - 10/01/19 05:05 Serum or plasma sodium measurement (moles/volume) 139 mmol/L 135-145 Serum or plasma potassium measurement (moles/volume) 4.0 mmol/L 3.6-5.0 Serum or plasma chloride measurement (moles/volume) 108 mmol/L 98-107 Carbon dioxide 22 mmol/L 21-32 Serum or plasma anion gap determination (moles/volume) 9 mmol/L 5-14 Serum or plasma urea nitrogen measurement (mass/volume ) 20 mg/dL 7-18 Serum or plasma creatinine measurement (mass/volume) 1.06 mg/dL 0.60-1.30 Serum or plasma urea nitrogen/creatinine mass ratio 19 NRG Serum or plasma creatinine measurement w ith calculation of estimated glomerular filtration rate > NRG Serum or plasma glucose measurement (mass/volume) 127 mg/dL 70-105 Serum or plasma calcium measurement (mass/volume) 8.6 mg/dL 8.5-10.1 Serum or plasma total bilirubin measurement (mass/volu me) 0.6 mg/dL 0.1-1.0 Serum or plasma alkaline phosphatase irena surement (enzymatic activity/volume) 105 U/L 40-136 Serum or plasma aspartate aminotransfera se measurement (enzymatic activity/volume) 33 U/L 5-34 Serum or plasma alanine aminotransferase measurement (enzymatic activity/volume) 8 U/L 0-55 Serum or plasma protein measurement (mass/volume) 5.4 g/dL 6.4-8.2 Serum or plasma albumin measurement (mass/volume) 2.5 g/dL 3.2-4.5 CALCIUM CORRECTED 9.8 mg/dL 8.5-10.1 Complete blood count (CBC) with automate d white blood cell (WBC) differential - 10/01/19 05:08 Blood leukocytes automated count (number/volume) 6.9 10*3/uL 4.3-11.0 Blood erythrocytes automated count (number/volume) 2.69 10*6/uL 4.35-5.85 Venous blood hemoglobin measurement (mass/volume) 8.3 g/dL 13.3-17.7 Blood hematocrit (volume fraction) 26 % 40-54 Automated erythrocyte mean corpuscular volume 98 [ foz_us] 80-99 Automated erythrocyte mean corpuscular h emoglobin (mass per erythrocyte) 31 pg 25-34 Automated erythrocyte mean corpuscular h emoglobin concentration measurement (mass/volume) 32 g/dL 32-36 Automated erythrocyte distribution width ratio 14. 7 % 10.0- 14.5 Automated blood platelet count (count/volume) 256 10*3/uL 130-400 Automated blood platelet mean volume measurement 10.7 [foz_us] 7.4-10.4 Automated blood neutrophils/100 leukocytes 59 % 42-75 Automated blood lymphocytes/100 leukocytes 26 % 12-44 Blood monocytes/100 leukocytes 10 % 0-12 Automated blood eosinophils/100 leukocytes 5 % 0-10 Automated blood basophils/100 leukocytes 0 % 0-10 Blood neutrophils automated count (number/volume) 4.1 10*3 1.8-7.8 Blood lymphocytes automated count (number/volume) 1.8 10*3 1.0-4.0 Blood monocytes automated count (number/volume) 0. 7 10*3 0.0-1.0 Automated eosinophil count 0.4 10*3/uL 0 .0-0.3 Automated blood basophil count (count/volume) 0.0 10*3/uL 0.0-0.1 Capillary blood glucose measurement by g lucometer (mass/volume) - 10/01/19 10:11 Capillary blood glucose measurement by glucometer (mas s/volume) 201 mg/dL 70-110 Capillary blood glucose measurement by g lucometer (mass/volume) - 10/01/19 16:10 Capillary blood glucose measurement by glucometer (mas s/volume) 177 mg/dL 70-110 Capillary blood glucose measurement by g lucometer (mass/volume) - 10/01/19 20:02 Capillary blood glucose measurement by glucometer (mas s/volume) 194 mg/dL 70-110 Capillary blood glucose measurement by g lucometer (mass/volume) - 10/02/19 05:37 Capillary blood glucose measurement by glucometer (mas s/volume) 133 mg/dL 70-110 Capillary blood glucose measurement by g lucometer (mass/volume) - 10/02/19 11:16 Capillary blood glucose measurement by glucometer (mas s/volume) 159 mg/dL 70-110 Capillary blood glucose measurement by g lucometer (mass/volume) - 10/02/19 15:37 Capillary blood glucose measurement by glucometer (mas s/volume) 174 mg/dL 70-110 Capillary blood glucose measurement by g lucometer (mass/volume) - 10/02/19 20:32 Capillary blood glucose measurement by glucometer (mas s/volume) 204 mg/dL 70-110 Capillary blood glucose measurement by g lucometer (mass/volume) - 10/03/19 06:16 Capillary blood glucose measurement by glucometer (mas s/volume) 84 mg/dL 70-110 Capillary blood glucose measurement by g lucometer (mass/volume) - 10/03/19 11:32 Capillary blood glucose measurement by glucometer (mas s/volume) 201 mg/dL 70-110 Capillary blood glucose measurement by g lucometer (mass/volume) - 10/03/19 20:43 Capillary blood glucose measurement by glucometer (mas s/volume) 103 mg/dL 70-110 Capillary blood glucose measurement by g lucometer (mass/volume) - 10/04/19 05:58 Capillary blood glucose measurement by glucometer (mas s/volume) 54 mg/dL 70-110 Capillary blood glucose measurement by g lucometer (mass/volume) - 10/04/19 06:44 Capillary blood glucose measurement by glucometer (mas s/volume) 78 mg/dL 70-110 Capillary blood glucose measurement by g lucometer (mass/volume) - 10/04/19 11:49 Capillary blood glucose measurement by glucometer (mas s/volume) 153 mg/dL 70-110 Encounters ACCT No. Visit Date/Time Discharge Status Pt. Type Provider Facility Loc./Unit Complaint [id number] 03/15/2019 13:21:00 03/15/2019 23:59: 00 DIS Outpatient TIARA CARRILLO [id number] 12/14/2018 14:06:00 12/14/2018 23:59: 00 DIS Outpatient TIARA CARRILLO [id number] 09/27/2019 16:02:00 15:37:00 DIS Inpatient DENIZ KENT DO [facility] 4TH PNEUMONIA [id number] 09/17/2019 09:00:00 12/17/2 019 16:02:00 DIS Outpatient JULIA GILLESPIE DO [facility] IRF PARKINSON'S DISEASE [id number] 09/14/2019 21:12:00 09:45:00 DIS Inpatient DENIZ KENT DO [facility] 4TH AMS,VOLUME DEPLETION,CHF,UTI [id number] 09/12/2019 08:37:00 23:59:59 CLS Preadmit VICKIE STAPLETON MD [facility] WOUNDCARE [id number] 09/07/2019 16:46:00 23:59:59 CLS Outpatient DENIZ KENT DO [facility] RAD FALL [id number] 09/06/2019 16:11:00 23:59:59 CLS Preadmit DENIZ KENT DO [facility] RAD FALL [id number] 09/06/2019 16:02:00 23:59:59 CLS Outpatient DENIZ KENT DO [facility] RAD FELL ON 3 BLOOD THINNERS [id number] 08/28/2019 11:26:00 23:59:59 CLS Outpatient DENIZ KENT DO [facility] RAD SOB,CHF [id number] 08/25/2019 14:24:00 23:59:59 CLS Outpatient DENIZ KENT DO [facility] LAB COUGH,WHEEZING [id number] 08/17/2019 06:46:00 07:30:00 DIS Outpatient SEBASTIÁN VALLE MD [facility] CATH ABN BASIA,PERIPHERAL ULCE R [id number] 08/15/2019 13:27:00 23:59:59 CLS Outpatient SEBASTIÁN VALLE MD [facility] CARD TR, IDDM, CAD, AORTIC V ALVE SCLEROSIS [id number] 03/10/2019 07:39:00 23:59:59 CLS Outpatient GELLENDER DO DENIZ Shira [facility] LAB UTI [id number] 09/08/2018 10:18:00 018 18:58:00 DIS Inpatient YOVANY DANIELS MD [facility] IRF PARKINSON'S DISEASE [id number] 09/06/2018 12:35:00 09:51:00 DIS Inpatient SUDHIRHINESDENIZ Shira [facility] 4TH POSSIBLE BRAIN BLEED [id number] 09/06/2018 10:57:00 018 23:59:59 CLS Outpatient DONTE DO DENIZ Shira [facility] RAD ACUTE MENTAL ST ATUS CHANGE [id number] 08/12/2018 12:53:00 23:59:59 CLS Outpatient SEBASTIÁN VALLE MD [facility] CARD CAD,CHB, CAROTID ARTERY STENOSIS [id number] 12/11/2017 10:52:00 018 23:59:59 CLS Outpatient SEBASTIÁN VALLE MD [facility] CARD I35.8 [id number] 08/04/2017 14:00:00 017 16:34:00 DIS Emergency JESS DAWKINS MD [facility] ER SYNCOPE [id number] 07/28/2016 07:16:00 016 23:59:59 CLS Outpatient SEBASTIÁN VALLE MD [facility] CARD LVH,TR,CAROTID ARTERY S TENOSIS [id number] 07/14/2016 07:39:00 016 23:59:59 CLS Outpatient SEBASTIÁN VALLE MD [facility] CARD LVH,TR [id number] 07/11/2016 14:18:00 016 23:59:59 CLS Outpatient BRIDGET MORRELL MD [facility] RAD LVH,TR,DIASTOLIC DYSFUN CTION [id number] 10/25/2015 20:45:00 016 06:40:00 DIS Outpatient VICKIE PRESTON MD [facility] SLEEP SNORING,JANEL [id number] 08/04/2015 11:26:00 13:22:00 DIS Emergency COOPER GUTIÉRREZ, BRIDGET Arnold [facility] ER AMS [id number] 05/21/2015 09:00:00 23:59:59 CLS Preadmit JOSELUIS KELLEY [facility] CARD CAD,EMILIO [id number] 02/19/2015 08:57:00 00:01:00 DIS Outpatient COLLINS KELLEY [facility] CARD CAD,EMILIO [id number] 04/25/2015 09:23:00 13:25:00 DIS Outpatient SEBASTIÁN VALLE MD [facility] CATH CHB,CAD,BRADYCARDIA,DIZ ZINESS [id number] 03/14/2015 08:55:00 17:00:00 DIS Outpatient SEBASTIÁN VALLE MD [facility] CATH CAD,HTN,HLP,TOBACCOISM, COMPLETE HEART BLOCK [id number] 02/07/2015 07:43:00 23:59:59 CLS Outpatient SEBASTIÁN VALLE MD [facility] CARD CAD,EMILIO,LVH [id number] 01/22/2015 07:55:00 23:59:59 CLS Outpatient HALIE LE MD [facility] RT DIZZINESS, VERTIGO [id number] 01/19/2015 08:43:00 23:59:59 CLS Outpatient SEBASTIÁN VALLE MD [facility] CARD CVA,CAD,EMILIO,LVH [id number] 01/05/2015 09:54:00 23:59:59 CLS Outpatient SEBASTIÁN VALLE MD [facility] RAD CVA, CAROTID ARTERY MELINDA NOSIS [id number] 01/03/2015 17:29:00 23:59:59 CLS Outpatient SEBASTIÁN VALLE MD [facility] LAB CVA,CAROTID ARTERY STEN OSIS [id number] 01/20/2014 10:31:00 014 23:59:59 CLS Outpatient DENIZ KENT DO [facility] RAD TRANS ISCHEMIC ATTACK [id number] 01/12/2014 14:21:00 014 23:59:59 CLS Outpatient DENIZ KENT DO [facility] RAD CONFUSION,MURILLO E IN MENTAL STATUS [id number] 01/10/2014 13:49:00 014 23:59:59 CLS Outpatient DENIZ KENT DO [facility] RAD CONFUSION,MURILLO E IN MENTAL STATUS [id number] 01/04/2014 11:08:00 014 23:59:59 CLS Outpatient EVERTON GARCIA MD [facility] RAD HEMATURIA [id number] 05/06/2013 09:32:00 013 12:53:00 DIS Outpatient ZACK GUTIÉRREZ, VICKIE Mercado [facility] CR STABLE ANGINA [id number] 06/18/2011 08:15:00 Document Registration
== END 2019-09-17 09:45 | DRG 690 ==
LOC: EDUNIT# 18:17 → ER 18:19 → 4TH 21:12
PROVIDERS: ADMIT Family Medicine; ATTEND Family Medicine
DX: N39.0 Urinary tract infection, site not specified (principal); B96.20 Unspecified Escherichia coli [E. coli] as the cause of diseases classified elsewhere; E86.0 Dehydration; I47.2 Ventricular tachycardia; L97.319 Non-pressure chronic ulcer of right ankle with unspecified severity; I69.351 Hemiplegia and hemiparesis following cerebral infarction affecting right dominant side; I11.0 Hypertensive heart disease with heart failure; I50.42 Chronic combined systolic (congestive) and diastolic (congestive) heart failure; Z66 Do not resuscitate; E11.649 Type 2 diabetes mellitus with hypoglycemia without coma; B95.1 Streptococcus, group B, as the cause of diseases classified elsewhere; N40.1 Benign prostatic hyperplasia with lower urinary tract symptoms; R33.9 Retention of urine, unspecified; R97.20 Elevated prostate specific antigen [PSA]; L98.429 Non-pressure chronic ulcer of back with unspecified severity; I25.10 Atherosclerotic heart disease of native coronary artery without angina pectoris; I49.5 Sick sinus syndrome; I70.203 Unspecified atherosclerosis of native arteries of extremities, bilateral legs; I48.0 Paroxysmal atrial fibrillation; E11.622 Type 2 diabetes mellitus with other skin ulcer; E11.40 Type 2 diabetes mellitus with diabetic neuropathy, unspecified; F03.90 Unspecified dementia, unspecified severity, without behavioral disturbance, psychotic disturbance, mood disturbance, and anxiety; G47.30 Sleep apnea, unspecified; L89.151 Pressure ulcer of sacral region, stage 1; G20 Parkinson's disease; Z95.5 Presence of coronary angioplasty implant and graft; Z95.0 Presence of cardiac pacemaker; Z79.4 Long term (current) use of insulin; Z91.81 History of falling; Z87.891 Personal history of nicotine dependence
CPT/HCPCS: 36415; 70450; 71045; 72125; 80053; 81000; 82962; 83036; 83605; 85007; 85025; 85027; 85610; 87040; 87077; 87088; 87186; 93005; 96361; 96374

== ENCOUNTER 2019-09-17 09:00 | Inpatient (IN) | payer MEDICARE ==
[~2019-09-17] VITALS: Ht 182.8 cm; Wt 76.0 kg
[~2019-09-17 09:00] MED LIST changes: +ACETAMINOPHEN 500 MG TAB (TYLENOL) PO PRN; +ALPRAZolam 0.25 MG (XANAX) TAB PO PRN; +BISACODYL 10 MG SUPP (DULCOLAX) PR PRN; +CALCIUM CARBONATE 500 MG (TUMS) TAB.CHEW PO PRN; +CLOP75TA69 PO; +DOCUSATE SODIUM 100 MG (COLACE) CAP PO PRN; +DOXY100T2 PO; +ENOXAPARIN 40 MG/0.4 ML (LOVENOX) SYR SC SCH; +FLEET ENEMA ADULT 1 EA BTL PR PRN; +FURO20TA4 PO; +HYDROcodone/APAP 5 MG/325 MG (LORTAB) TAB PO PRN; +LACTULOSE SYRUP 10GM/15ML (ENULOSE) 30ML UDC PO PRN; +LOPERAMIDE 2 MG (IMODIUM) TABLET PO PRN; +METO-370 PO; +METO-387 PO; +METO-395 PO; -METO50TA7 PO; -MTP100TCR PO; +OLME40TA12 PO; +ONDANSETRON 4 MG (ZOFRAN) ORAL DISSOLVE TAB PO PRN; +PANT40TA3 PO; +POTA10CA43 PO; +RIVA20TA PO; +TAMS0.4C98 PO; +diphenhydrAMINE 25 MG TAB (BENADRYL) PO PRN; +guaiFENesin/CODEINE (ROBITUSSIN AC) 10ML UDC PO PRN
--- NOTE | 2019-09-17 10:20 | Physical Therapy Evaluation ---
PT Evaluation-General Medical Diagnosis Admission Date Medical Diagnosis: AMS, volume depletion, UTI Onset Date: Sep 14, 2019 Therapy Diagnosis Therapy Diagnosis: impaired mobility, endurance, balance Height/Weight Height (Feet): 6 Height (Inches): 0.00 Weight (Pounds): 177 Weight (Ounces): 9.6 Referral Physician: Maria T Escalante DO Reason for Referral: Evaluation/Treatment Medical History Pertinent Medical History: Atrial Fib, CAD, CVA, DM, Dementia, Parkinson's Reviewed History: Yes Social History Home: Single Level Current Living Status: Spouse Entry Into Home: Level Entry Prior Prior Level of Function SCALE: Activities may be completed with or without assistive devices. 0-Evnexeyzzd-lyqpger completes the activity by him/herself with no assistance from a helper. 5-Set-up or Clean-up Assistance-helper sets up or cleans up; patient completes activity. [place] assists only prior to or following the activity. 4-Supervision or Touching Assistance-helper provides verbal cues and/or touching/steadying and/or contact guard assistance as patient completes activity. Assistance may be provided throughout the activity or intermittently. 3-Partial/Moderate Assistance-helper does LESS THAN HALF the effort. [place] lifts, holds or supports trunk or limbs, but provides less than half the effort. 2-Substantial/Maximal Assistance-helper does MORE THAN HALF the effort. [place] lifts or holds trunk or limbs and provides more than half the effort. 6-Kmbqhswsi-aiuoaq does ALL the effort. Patient does none of the effort to complete the activity. Or, the assistance of 2 or more helpers is required for the patient to complete the activity. If activity was not attempted, code reason: 7-Patient Refused. 9-Not Applicable-not attempted and the patient did not perform the activity before the current illness, exacerbation or injury. 10-Not Attempted due to Environmental Limitations-(lack of equipment, weather restraints, etc.). 88-Not Attempted due to Medical Conditions or Safety Concerns. Bed Mobility: 6 Transfers (B,C,W/C): 6 Gait: 6 Indoor Mobility (Ambulation): Independent Prior Device Use: RW PT Evaluation-Current Subjective Patient in recliner pre tx, agrees to PT, has no complaints of pain, pleasant and cooperative. Pt/Family Goals none stated, patient is confused Objective Patient Orientation: Person, Confused ROM/Strength ROM Lower Extremities WNL Strength Lower Extremities 4+/5 gross bilateral lower extremities Sensory Hearing: Functional Sensation Right Lower Extremit: Intact Sensation Left Lower Extremity: Intact Transfers Roll Left to Right (QC): 4 Sit to Lying (QC): 4 Lying to Sitting/Side of Bed(Q: 4 Sit to Stand (QC): 4 Chair/Cnc-co-Dodrk Xfer(QC): 4 Car Transfer (QC): 4 Patient performs bed mobility with SBA, supine <-> sit with SBA, sit <-> stand with CGA, transfers with CGA, car transfer CGA. Patient needs cues for direction and safety due to confusion. Will often leave walker to perform a transfer. Gait Does the Patient Walk?: Yes Mode of Locomotion: Walk Anticipated Mode of Locomotion: Walk Walk 10 feet (QC): 4 Walk 50 ft with 2 Turns(QC): 4 Walk 150 ft (QC): 4 Walking 10ft/uneven surface-QC: 4 Distance: 200' Gait Assistive Device: FWW Comments/Gait Description Patient ambulated 200' with a rolling walker with CGA (including 50' with at least 2 turns of 90 degrees and 10' over an uneven surface). Patient shuffles and has poor foot clearance but no instances of LOB. Needs cues for direction and safety due to confusion. Wheelchair Training Does the Pt Use a Wheelchair?: No Wheel 50 ft with 2 turns (QC): 9 Wheel 150 ft (QC): 9 Type of Wheelchair: Manual Stairs #of Steps: 1 1 Step (curb) (QC): 4 4 Steps (QC): 88 12 Steps (QC): 88 Walking Assistive Device: Walker Balance Sitting Static: Normal Sitting Dynamic: Normal Standing Static: Good Standing Dynamic: Fair Picking up an Object (QC): 4 Assessment/Needs Patient has impaired mobility, strength, endurance, balance. He is confused and needs cues for direction and safety. Patient in recliner post tx with nurse call, phone, tray, chair alarm on. Rehab Potential: Fair PT Short Term Goals Short Term Goals Time Frame: Sep 24, 2019 Roll Left & Right: 6 Sit to lyin Lying to sitting on side of be: 6 Sit to stand: 4 (SBA) Chair/dbu-wi-smsas transfer: 4 (SBA) Walk 10 feet: 4 (SBA) Walk 50 feet with two turns: 4 (SBA) Walk 150 feet: 4 (SBA) PT Custodial Goals Custodial Goals PT Distributor Publications Goals Time Frame: Oct 08, 2019 Roll Left & Right (QC): 6 Sit to Lying (QC): 6 Lying-Sitting on Side/Bed(QC): 6 Sit to Stand (QC): 6 Chair/Lbx-ky-Ijczg Xfer(QC): 6 Toilet Transfer (QC): 6 Car Transfer (QC): 6 Does the Patient Walk: Yes Walk 10 feet (QC): 6 Walk 50ft with 2 Turns (QC): 6 Walk 150 ft (QC): 6 Walking 10ft on Uneven Surface: 6 1 Step (curb) (QC): 4 4 Steps (QC): 4 12 Steps (QC): 88 Picking up an Object (QC): 6 Does the Pt use WC or Scooter?: No Type: N/A Type: N/A PT Plan Problem List Problem List: Activity Tolerance, Functional Strength, Safety, Balance, Gait, Transfer Treatment/Plan Treatment Plan: Continue Plan of Care Treatment Plan: Education, Functional Activity Nav[place], Functional Strength, Group Therapy, Gait, Safety, Therapeutic Exercise, Transfers Treatment Duration: Oct 08, 2019 Frequency: At least 5 of 7 days/Wk (IRF) Estimated Hrs Per Day: 1.5 hours per day Patient and/or Family Agrees t: Yes Safety Risks/Education Patient Education: Gait Training, Transfer Techniques, Steps, Correct Positioning, Safety Issues Teaching Recipient: Patient Teaching Methods: Demonstration, Discussion Response to Teaching: Reinforcement Needed Discharge Recommendations Plan Patient will perform bed mobility and transfer training, balance and endurance training, functional strengthening, stair training, gait training, and education, to improve functional mobility and independence at home. Therapy Discharge Recommendati: Other, See Comments (home with family) Time/GCodes Time In: 1005 Time Out: 1020 Total Billed Treatment Time: 15 Total Billed Treatment 1 visit FABRICIO HAMMOND PT Sep 17, 2019 10:19 POS
[2019-09-17] MEDS ORDERED: MILK OF MAGNESIA 400 MG/5 ML 30 ML UDC PO PRN (12:00)
--- NOTE | 2019-09-17 13:10 | NUR ---
Admitted to room 233-1, with an admitting diagnosis of debility, on 09/17/[address] [place] [address]. WEI PARADA introduced to surroundings, call light, bed controls, phone, TV, temperature control, lights, meal times, smoking policy, visitor policy, side rail policy, bathrooms and showers. Patient Rights given to patient in the handbook.WEI PARADA verbalizes understanding that [facility] is not responsible for the loss or damage to any personal effects or valuables that are kept in the patients posession during their hospitalization. The following Patient Care Plans were discussed with the : Discharge Planning, ,, and . WEI PARADA verbalizes understanding of Interdisciplinary Patient Education. Patient and/or family were informed about the Rapid Response Team and its purpose. Patient received Patient Rights Booklet, which includes Privacy Act Statement and Data Collection Information Summary.
[2019-09-17 14:00] VITALS: BP 168/81
[2019-09-17] MEDS: DOCUSATE SODIUM 100 MG (COLACE) CAP PO SCH ×2 (14:56→21:50)
[2019-09-17] MEDS: SENNA W/DOCUSATE (SENOKOT S) TABLET PO SCH ×2 (14:57→22:04)
[2019-09-17] MEDS: POLYETHYLENE GLYCOL 17 GM (MIRALAX) PACK PO SCH ×2 (14:57→22:04)
[2019-09-17 15:44] VITALS: BP 168/81
[2019-09-17 16:06] VITALS: BP 157/79
[2019-09-17] MEDS: TAMSULOSIN 0.4 MG (FLOMAX) CAP PO SCH (16:56)
[2019-09-17] MEDS: RIVAROXABAN 20 MG TABLET (XARELTO) PO SCH (16:56)
[2019-09-17] MEDS: inSUlin ASPART (NovoLOG) 1 UNIT/0.01 ML (CHARGE PER UNIT) SC SCH ×2 (16:57→21:00)
--- NOTE | 2019-09-17 19:21 | NUR ---
bedside report received from PASQUALE ROSSI, assume care of pt
--- NOTE | 2019-09-17 20:10 | NUR ---
back to bed with bed alarm on & side rails up x4, bladder scan showed 611 ml
[2019-09-17] MEDS ORDERED: LIDOCAINE UROJET 2% GEL 10 ML PKG ONE (20:20)
[2019-09-17] MEDS ORDERED: LIDOCAINE UROJET 2% GEL 10 ML PKG TOP ONE (20:30)
--- NOTE | 2019-09-17 20:35 | NUR ---
tried to straight cath but foreskin will not retract to see urethral opening, 2 nurses tried to do straight cath without success, medical billing supervisor called
--- NOTE | 2019-09-17 21:25 | NUR ---
AMANUEL RN from ICU came down & with both nurses were able to visualize the opening & straight cath pt, received 1100ml light devora colored urine
[2019-09-17] MEDS: ASPIRIN E.C. 81 MG (ECOTRIN) TAB PO SCH (21:49)
[2019-09-17] MEDS: meTOprolol TARTRATE 25 MG (LOPRESSOR) TABLET PO SCH (21:49)
[2019-09-17] MEDS: amLODIPine 5 MG (NORVASC) TAB PO PRN (21:50)
[2019-09-17] MEDS: GABAPENTIN 300 MG (NEURONTIN) CAP PO SCH (21:50)
[2019-09-17] MEDS: cefTRIAXone FOR IV USE 1,000 MG in WATER (STERILE) FOR INJECTION 10 ML IV SCH (21:50)
--- NOTE | 2019-09-17 21:50 | NUR ---
pt refused miralax, Hillary took Naina, b/p 186/76, Lopressor 25mg & Norvasc 5mg given
[2019-09-17] MEDS: CATHETER FLUSH 10 ML SYR IV SCH (22:06)
--- NOTE | 2019-09-17 23:19 | NUR ---
b/p 180 notified orders received for no med changes she will address tomorrow
--- NOTE | 2019-09-18 05:10 | NUR ---
b/p 118/68 bladder scan showed less than 361
[2019-09-18 05:20] LABS: BASOPHILS % (AUTO) 0 % (0-10); EOSINOPHILS # (AUTO) 0.3 10^3/uL (0.0-0.3); EOSINOPHILS % (AUTO) 5 % (0-10); HEMATOCRIT 30 % (40-54); HEMOGLOBIN 10.1 G/DL (13.3-17.7); LYMPHOCYTES # (AUTO) 2.2 X 10^3 (1.0-4.0); LYMPHOCYTES % (AUTO) 31 % (12-44); MEAN CORPUSCULAR HEMOGLOBIN 31 PG (25-34); MEAN CORPUSCULAR HGB CONC 34 G/DL (32-36); MEAN CORPUSCULAR VOLUME 92 FL (80-99); MONOCYTES # (AUTO) 0.7 X 10^3 (0.0-1.0); MONOCYTES % (AUTO) 10 % (0-12); NEUTROPHILS # (AUTO) 3.9 X 10^3 (1.8-7.8); NEUTROPHILS % (AUTO) 54 % (42-75); PLATELET COUNT 189 10^3/uL (130-400); RED CELL DISTRIBUTION WIDTH 12.5 % (10.0-14.5); WHITE BLOOD COUNT 7.2 10^3/uL (4.3-11.0)
[2019-09-18 05:40] LABS: ALANINE AMINOTRANSFERASE 16 U/L (0-55); ALBUMIN 2.7 GM/DL (3.2-4.5); ALKALINE PHOSPHATASE 116 U/L (40-136); BILIRUBIN,TOTAL 0.7 MG/DL (0.1-1.0); BUN/CREATININE RATIO 15; CALCIUM 8.9 MG/DL (8.5-10.1); CARBON DIOXIDE 24 MMOL/L (21-32); CHLORIDE 104 MMOL/L (98-107); CREATININE SERUM 0.97 MG/DL (0.60-1.30); GFR ESTIMATED > 60; GLUCOSE 116 MG/DL (70-105); POTASSIUM 4.1 MMOL/L (3.6-5.0); SODIUM 137 MMOL/L (135-145); TOTAL PROTEIN 5.4 GM/DL (6.4-8.2)
[2019-09-18 05:53] VITALS: BP 118/68
[2019-09-18] MEDS: inSUlin ASPART (NovoLOG) 1 UNIT/0.01 ML (CHARGE PER UNIT) SC SCH ×4 (06:00→21:03)
--- NOTE | 2019-09-18 07:24 | NUR ---
bedside report given to CYNTHIA ROSSI
--- NOTE | 2019-09-18 07:43 | PM&R Post Admission Assessment ---
PM&R HP Date of Visit: Sep 17, 2019 Time of Visit: 10:00 History of Present Illness Late note, patient seen and examined 09/17/19 at 1000 on IRF unit and note placed late. Chief complaint: Debility following fall due to Parkinson's disease History of present illness: This is a 78-year-old white male clinic patient of Dr. Damon who has a past medical history of severe Parkinson's disease who resides at home who suffered a fall suffered abrasions on his back and having significant debility in need of intensive therapy prior to discharging home. He has a longstanding history of orthostasis due to Parkinson's, peripheral vascular disease, coronary artery disease and pacemaker placement in the past. He remains on antiplatelet and anticoagulation medications. He is considered a fall risk and being on blood thinners we will need to aggressively treat this problem prior to going home safely. At this current time patient's bowels are reportedly slow and he is having urinary retention which BladderScan is initiated and in and out catheters are used. He has a poor recall and does not report any of these urinary bladder or bowel problems which are present. Past Twoqnug-Rbdmqu-Mzeatl Hx Past Med/Social Hx: Reviewed Nursing Past Med/Soc Hx, Reviewed and Corrections made Patient Social History Marrital Status: single Employed/Student: retired Alcohol Use: Denies Use Recreational Drug Use: No Smoking Status: Former Smoker Type Used: Cigarettes 2nd Hand Smoke Exposure: No Physical Abuse Screen: No Sexual Abuse: No Recent Foreign Travel: No Contact w/other who traveled: No Recent Hopitalizations: Yes Recent Infectious Disease Expo: No Immunizations Up To Date Pediatric: Yes Date of Pneumonia Vaccine: Aug 17, 2016 Date of Influenza Vaccine: Aug 03, 2019 Seasonal Allergies Seasonal Allergies: No Past Medical History Surgeries: Coronary Stent Cardiac: Atrial Fibrillation, High Cholesterol, Hypertension, Peripheral Vascular Neurological: Dementia, Parkinson's Disease, Stroke Genitourinary: Benign Prostatic Hyperpl, Prostate Problems Endocrine: Diabetes, Insulin dep Skin/Integumentary: Psoriasis History of Blood Disorders: No Family History Alcoholism G8 BROTHER ( at age 46) FH: heart disease 19 FATHER Hypertension 19 MOTHER Myocardial infarction 19 FATHER ( at age 60) Prior Level of Function Bed Mobility: 6 Transfers: 6 Gait: 6 Indoor Mobility (Ambulation): Independent RW Occupation: retired Current Level of Fuctioning Roll Left to Right: 4 Sit to Lyin Lying to Sitting/Side of Bed: 4 Sit to Stand: 4 Chair/Zyw-zx-Jrqlz Xfer: 4 Car Transfer: 4 Does the Patient Walk: Yes Mode of Locomotion: Walk Anticipated Mode of Locomotion: Walk Walk 10 feet: 4 Walk 50 ft with 2 Turns: 4 Walk 150 ft: 4 Walking 10ft on uneven surface: 4 Gait Assistive Device: FWW Does the Pt Use a Wheelchair: No Wheel 50 ft with 2 turns: 9 Wheel 150 ft: 9 Type of Wheelchair: Manual #of Steps: 1 1 Step (curb): 4 4 Steps: 88 Walking Assistive Device: Walker 12 Steps: 88 Picking up an Object: 4 PM&R Allergy/Meds/Data Review Allergies Coded Allergies: No Known Drug Allergies (Unverified , 09/06/18) Home Medications Scheduled Amiodarone HCl (Amiodarone HCl), 200 MG PO DAILY, (Reported) Aspirin (Aspirin EC), 81 MG PO HS, (Reported) Atorvastatin Calcium (Atorvastatin Calcium), 40 MG PO HS, (Reported) Carbidopa/Levodopa (Carbidopa-Levo ER 50-200 Tab), 2 TAB PO 0800, (Reported) Carbidopa/Levodopa (Carbidopa-Levo ER 50-200 Tab), 1 TAB PO 1300,2100, (Reported) Clopidogrel Bisulfate (Plavix), 75 MG PO DAILY, (Reported) Gabapentin (Gabapentin), 300 MG PO BID, (Reported) Glipizide (Glipizide), 5 MG PO DAILY, (Reported) Insulin Aspart (Novolog Flexpen), SQ TIDAC, (Reported) Metoprolol Succinate (Metoprolol Succinate), 25 MG PO HS, (Reported) Multivitamin (Multivitamins), 1 TAB PO DAILY, (Reported) Olmesartan Medoxomil (Benicar), 40 MG PO DAILY, (Reported) [place]-3/Dha/Epa/Fish Oil (Fish Oil 1,000 mg Softgel), 1,000 MG PO BID, (Reported) Pantoprazole Sodium (Pantoprazole Sodium), 40 MG PO DAILY, (Reported) Rivaroxaban (Xarelto), 20 MG PO HS, (Reported) Tamsulosin HCl (Flomax), 0.8 MG PO 1730, (Reported) Scheduled PRN Acetaminophen (Acetaminophen), 1,000 MG PO Q4H PRN for PAIN-MILD, (Reported) Amlodipine Besylate (Amlodipine Besylate), 5 MG PO DAILY PRN for BLOOD PRESSURE >150, (Reported) Bisacodyl (Dulcolax), 10 MG PO HS PRN for CONSTIPATION-4TH LINE, (Reported) Discontinued Medications Carbidopa/Levodopa (Carbidopa-Levo ER 50-200 Tab), 1 EACH PO HS, (Reported) Discontinued Reason: New Order Doxycycline Hyclate (Doxycycline Hyclate), 100 MG PO BID, (Reported) Furosemide (Furosemide), 20 MG PO DAILY, (Reported) Discontinued Reason: No Longer Taking Insulin Determir (Levemir), 40 UNITS SQ HS, (Reported) Potassium Chloride (Potassium Chloride), 10 MEQ PO DAILY, (Reported) Discontinued Reason: No Longer Taking Quinapril HCl (Quinapril HCl), 40 MG PO DAILY, (Reported) Discontinued Reason: No Longer Taking Current Medications Current Medications Reviewed Laboratory Data Laboratory Tests 09/17/19 20:55: Glucometer 197H 09/18/19 05:10: Glucometer 122H 09/18/19 05:12: White Blood Count 7.2, Red Blood Count 3.25L, Hemoglobin 10.1L, Hematocrit 30L, Mean Corpuscular Volume 92, Mean Corpuscular Hemoglobin 31, Mean Corpuscular Hemoglobin Concent 34, Red Cell Distribution Width 12.5, Platelet Count 189, Mean Platelet Volume 11.0H, Neutrophils (%) (Auto) 54, Lymphocytes (%) (Auto) 31, Monocytes (%) (Auto) 10, Eosinophils (%) (Auto) 5, Basophils (%) (Auto) 0, Neutrophils # (Auto) 3.9, Lymphocytes # (Auto) 2.2, Monocytes # (Auto) 0.7, Eosinophils # (Auto) 0.3, Basophils # (Auto) 0.0, Sodium Level 137, Potassium Level 4.1, Chloride Level 104, Carbon Dioxide Level 24, Anion Gap 9, Blood Urea Nitrogen 15, Creatinine 0.97, Estimat Glomerular Filtration Rate > 60, BUN/Creatinine Ratio 15, Glucose Level 116H, Calcium Level 8.9, Corrected Calcium 9.9, Total Bilirubin 0.7, Aspartate Amino Transf (AST/SGOT) 20, Alanine Aminotransferase (ALT/SGPT) 16, Alkaline Phosphatase 116, Total Protein 5.4L, Albumin 2.7L Review of Systems Constitutional: see HPI, malaise, weakness Respiratory: no symptoms reported Cardiovascular: no symptoms reported Gastrointestinal: constipation Genitourinary: other (retention) Musculoskeletal: joint pain Skin: rash (psoriasis) Psychiatric/Neurological: Anxiety, Depressed All Other Systems Reviewed Negative Unless Noted: Yes Physical Exam Physical Exam Vital Signs Vital Signs - First Documented 09/17/19 14:00 Temp 36.1 Pulse 83 Resp 18 B/P (MAP) 168/81 (110) Pulse Ox 95 O2 Delivery Room Air Capillary Refill : Height, Weight, BMI Height: 6'0.00" Weight: 177lbs. 9.6oz. [id number]; 22.53 BMI Method:Stated General Appearance: No Apparent Distress, WD/WN, Chronically ill Eyes: Bilateral Eye Normal Inspection, Bilateral Eye PERRL HEENT: PERRL/EOMI, Normal ENT Inspection, Pharynx Normal Neck: Full Range of Motion, Normal Inspection, Non Tender, Supple, Carotid Bruit Respiratory: Chest Non Tender, Lungs Clear, Normal Breath Sounds, No Accessory Muscle Use, No Respiratory Distress Cardiovascular: Regular Rate, Rhythm, No Edema, No Gallop, No JVD, No Murmur, Normal Peripheral Pulses Gastrointestinal: Normal Bowel Sounds, No Organomegaly, No Pulsatile Mass, Non Tender, Soft Back: Normal Inspection, No CVA Tenderness, No Vertebral Tenderness Extremity: Normal Capillary Refill, Normal Inspection, Normal Range of Motion, Non Tender, No Calf Tenderness, No Pedal Edema Neurologic/Psychiatric: Alert, Oriented x3, No Motor/Sensory Deficits (weakness 4/5 legs, falls risk), Normal 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/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, 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 Norm as Tested, Disoriented (subtle poor recall), Other (tremor noted upper extremities) Skin: Normal Color, Warm/Dry Lymphatic: No Adenopathy PM&R Medical Assessment & Plan REHAB/MEDICAL ASSESSMENT AND PLAN: REHAB IMPAIRMENT GROUP: Parkinson's disease ETIOLOGIC DIAGNOSIS: Parkinson's disease with falls The comorbidities that impact the patients function and/or functional outcome by: CAD, Pacemaker, AF, OAC, Urinary retention, constipation REHAB PLAN: The patient is being admitted to our comprehensive inpatient rehabilitation fac ility and can tolerate the intensity of service consisting of at least: 180 minutes of therapy a day, 5 out of 7 days a week Rehab treatment will consist of: PT will focus on fall prevention since he can walk moderately well, OT will help ADL function The patient/family has a good understanding of our discharge process and will benefit from an interdisciplinary inpatient rehabilitation program. The patient has potential to make improvement and is in need of at least two of the fo llowing multidisciplinary therapies including but not limited to physical, occupational, speech, and prosthetics and orthotics. Additionally the patient will need services from respiratory, nutritional services, wound care, psychology, etc. (Customize this to each patient). Given the patients complex condition and risk of further medical complications, rehabilitation services can not be safely or effectively provided at a lower level of care such as a correction facility. BARRIERS TO DISCHARGE: Fall risk on blood thinners ESTIMATED LOS: 10 days DISPOSITION: Home RELEVANT CHANGES SINCE PREADMISSION SCREENING: I have compared the patients medical and functional status at the time of the preadmission screening and there are: no changes PROGNOSIS: Good REHABILITATION GOALS: 1. PT and OT will both help regain independence and prevent falls in Parkinson's patient with high risk for falls All the above goals were reviewed with the patient and he/she is in agreement. By signing this document, I acknowledge that I have personally performed a full physical examination on this patient within 24 hours of admission to this inpatient rehabilitation facility and have determined the patient to be able to tolerate the above course of treatment at an intensive level for a reasonable period of time. I will be completing a detailed individualized Plan of Care for this patient by day #4 of the patients stay based upon the Preadmission Screen, the Post-Admission Evaluation, and the therapy evaluations. Admission Dx/Comorbidities: (1) Parkinsons disease ICD Codes: G20 - Parkinson's disease (2) Dementia ICD Codes: F03.90 - Unspecified dementia without behavioral disturbance (3) Orthostasis ICD Codes: I95.1 - Orthostatic hypotension (4) Labile hypertension ICD Codes: R09.89 - Other specified symptoms and signs involving the circulatory and respiratory systems (5) Falls frequently ICD Codes: R29.6 - Repeated falls (6) Urinary retention ICD Codes: R33.9 - Retention of urine, unspecified (7) Constipation ICD Codes: K59.00 - Constipation, unspecified (8) DM (9) Obstructive sleep apnea of adult Status: Acute ICD Codes: G47.33 - Obstructive sleep apnea (adult) (pediatric) (10) PAD (peripheral artery disease) Status: Acute ICD Codes: I73.9 - Peripheral vascular disease, unspecified JULIA GILLESPIE DO Sep 18, 2019 07:43 POS
[2019-09-18] MEDS: CLOPIDOGREL 75 MG (PLAVIX) TABLET PO SCH (08:26)
[2019-09-18] MEDS: AMIODARONE 200 MG (CORDARONE) TAB PO SCH (08:26)
[2019-09-18] MEDS: SINEMET CR 50/200 (CARBIDOPA/LEVODOPA SA) TAB PO SCH (08:26)
[2019-09-18] MEDS: GABAPENTIN 300 MG (NEURONTIN) CAP PO SCH ×2 (08:26→21:02)
[2019-09-18] MEDS: PANTOPRAZOLE 40 MG (PROTONIX) TAB PO SCH (08:26)
[2019-09-18] MEDS: POLYETHYLENE GLYCOL 17 GM (MIRALAX) PACK PO SCH ×2 (08:28→21:04)
[2019-09-18] MEDS: DOCUSATE SODIUM 100 MG (COLACE) CAP PO SCH ×2 (08:28→21:01)
[2019-09-18] MEDS: SENNA W/DOCUSATE (SENOKOT S) TABLET PO SCH ×2 (08:28→21:03)
[2019-09-18] MEDS: CATHETER FLUSH 10 ML SYR IV SCH ×3 (08:50→21:03)
--- NOTE | 2019-09-18 09:40 | Cardiology Progress Note ---
Subjective Date Seen by Provider: Sep 18, 2019 Time Seen by Provider: 09:39 Subjective/Events-last exam Patient was seen at bedside, comfortable, no active pain. No dyspnea Review of Systems General: No Chills, No Night Sweats; Fatigue, Malaise; No Appetite, No Other HEENT: No Head Aches, No Visual Changes, No Eye Pain, No Ear Pain, No Dysphasia, No Sinus Congestion, No Post Nasal Drip, No Sore Throat, No Other Pulmonary: No Dyspnea, No Cough, No Pleuritic Chest Pain, No Other Cardiovascular: No: Chest Pain, Palpitations, Orthopnea, Paroxysmal Noc. Dyspnea, Edema, Lt Headedness, Other Objective-Cardiology Exam Last Set of Vital Signs Vital Signs 09/18/19 09/18/19 05:53 08:54 Temp 36.6 Pulse 62 Resp 18 B/P (MAP) 118/68 (85) Pulse Ox 96 O2 Delivery Room Air Capillary Refill : I&O Intake and Output 09/18/19 00:00 Intake Total 300 ml Balance 300 ml Intake Oral 300 ml Bladder Scan Volume Amount 611 ml # Voids 2 Daily Weight Change No General: Alert, Cooperative, Other (confused) HEENT: Atraumatic, PERRLA Neck: Supple, No JVD, No Thyromegaly Lungs: Normal Air Movement, Other (bilateral rhonchi) Heart: Regular Rate, Normal S1, Normal S2, No Murmurs Abdomen: Normal Bowel Sounds, Soft, No Tenderness, No Hepatosplenomegaly, No Masses Extremities: No Clubbing, No Cyanosis, No Edema, No Tenderness/Swelling, Other (diminished pulse) Skin: No Rashes, No Breakdown, No Significant Lesion Neuro: Normal Gait, Normal Speech, Strength at 5/5 X4 Ext, Normal Tone, Sensation Intact Psych/Mental Status: Mental Status NL, Mood NL Results Lab Laboratory Tests 09/18/19 05:12 A/P-Cardiology Admission Diagnosis Parkinson disease Peripheral arterial disease Coronary artery disease Hypertension Assessment/Plan Change in mental status, generalized weakness and loss of energy, Parkinson disease, multiple falls, currently in rehabilitation receiving physical and occupational therapy. X Left groin bruit, I will evaluate ultrasound Severe Peripheral vascular disease, had nonhealing wound right lower extremity, underwent peripheral angiogram on August 17, 2019 revealing total occlusion of right SFA, successful angioplasty then deployment of 2 Supera stent [id number] and [id number] with excellent results and flow. Severe disease at the distal posterior tibial artery proximal anterior tibial artery. Heavily calcified left SFA with multiple segments of moderate to severe disease with occluded anterior tibial artery. Patient is maintained on Plavix and aspirin. Wound to right lower extremity is healing. Patient has known severe disease on the left side, we will continue with conservative management unless patient becomes symptomatic due to his comorbidities. Currently not having any symptoms, does not have any ulceration to left lower extremity. Continue to monitor Sick sinus syndrome, history of episodes of bradycardia with complete heart block, frequent PVCs, ventricular bigeminy and ventricular couplets, short PAT's. Status post permanent pacemaker implantation April 2015, using a Riboxx device Advisa DR GONZALEZ, last interrogation was done in June 2019 showing good sensing and capture activity, longevity for the battery is 4 years, no arrhythmia was detected. Continue to monitor Nonsustained ventricular tachycardia, has been maintained on amiodarone 200 mg daily. No recent arrhythmia on pacemaker interrogation, continue to monitor. Paroxysmal atrial fibrillation, maintained on Amiodarone, continue to monitor. [id number] score of 6, high risk, yearly risk of stroke without OAC is 9.8%. Maintained on Xarelto, continue to monitor Coronary artery disease, multiple interventions in the past, most recent cardiac catheterization done March 14, 2015 revealed extensive coronary artery disease, heavily calcified system, with 40 percent distal left main coronary artery stenosis. 3 stents in LAD proximally with 50-60 percent in-stent restenosis. Distal LAD had 95 percent stenosis followed by 80 percent stenosis long segment, very small artery not amendable to intervention. Total occlusion of the first obtuse marginal branch filled by collaterals. Patent stent in the proximal mid second OM branch with moderate disease in the distal proper circumflex artery. Patent stent in the RCA with 50 percent proximal right coronary artery stenosis and 50-60 distal right coronary artery stenosis. Asymptomatic, continue to monitor Stress test in July 2016 showed fixed defect involving the whole inferior wall and inferoapical segment with dilated left ventricle, inferior wall hypokinesia, Ejection fraction 54 percent. Echocardiogram showed ejection fraction 60 percent, dilated left atrium, mild to moderate mitral regurgitation and pulmonary artery pressure of 35 mmHg. continue to monitor, Hypertension, has history of orthostatic hypotension, monitor blood pressure Hyperlipidemia, maintained on Crestor, continue to monitor lipids. History of CVA in 2010, mild residual right sided weakness, episodes of confusion occurred over the last year where patient became confused and drove over once to [place] and once to [place]. It was felt that it was a global ischemic attack with confusion, workup at that time was negative. He was seen by Dr. Jiménez and started on Dilantin, the dose was increased by Dr. Damon, followed and managed by primary care physician Congestive heart failure, EF 45-50 percent, as well as diastolic dysfunction per most recent 2-D echocardiogram done 2018, continue with current medication Diabetes mellitus, followed and managed by primary care physician Carotid stenosis, monitored by Dr. Simmons's office Dementia, managed by primary care physician. Ex-Tobaccoism, patient smokes pipe, he stopped smoking in October, encouraged to continue with smoking cessation Peripheral neuropathy, maintained on gabapentin. Continue on current medication, continue to monitor Sleep apnea, severe on sleep study in October 2015, does not use his machine. Clinical Quality Measures DVT/VTE Risk/Contraindication: Risk Factor Score Per Nursin RFS Level Per Nursing on Admit: 4+=Very High SEBASTIÁN VALLE MD Sep 18, 2019 09:40 POS
--- NOTE | 2019-09-18 12:00 | NUR ---
Dr. Villanueva on floor, this RN informed of pt having 1071 ML of urine in bladder. Dr. Villanueva at bedside and inserted palmer cath for this RN due to difficulty of pt's anatomy.
--- NOTE | 2019-09-18 12:19 | Progress Note - Urology ---
Progress Note-Urology Progress Notes/Assess & Plan Progress/Assessment & Plan UNABLE TO VOID. PVR 1060. DIFFICULT STRAIGHT CATH SECONDARY TO SEVERE PHIMOSIS. I WENT AHEAD AND INSERTED [place] WITHOUT COMPLICATIONS. CLEAR ELVER URINE. PLAN INCREASE FLOMAX TO BID. Final Diagnosis URINE RETENTION EVERTON GARCIA MD Sep 18, 2019 12:19 POS
--- NOTE | 2019-09-18 12:21 | PM&R Progress Note ---
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 Urology consultation recommended indwelling Patel because the foreskin was causing many issues in trying to do an in and out cath Lactulose will be given for constipation Check meds and labs Reviewed therapy notes Conferred with technical support director of Systems General: Fatigue Gastrointestinal: Constipation Genitourinary: Retention Neurological: Confusion Objective Exam Vital Signs Vital Signs Date Time Temp Pulse Resp B/P (MAP) Pulse Ox O2 Delivery O2 Flow Rate FiO2 09/18/19 17:22 36.6 60 18 137/66 (89) 96 Room Air Capillary Refill : General Appearance: No Apparent Distress, WD/WN, Chronically ill HEENT: PERRL/EOMI, Normal ENT Inspection, Pharynx Normal Neck: Full Range of Motion, Normal Inspection, Non Tender, Supple, Carotid Bruit Respiratory: Chest Non Tender, Lungs Clear, Normal Breath Sounds, No Accessory Muscle Use, No Respiratory Distress Cardiovascular: Regular Rate, Rhythm, No Edema, No Gallop, No JVD, No Murmur, Normal Peripheral Pulses Gastrointestinal: Normal Bowel Sounds, No Organomegaly, No Pulsatile Mass, Non Tender, Soft Back: Normal Inspection, No CVA Tenderness, No Vertebral Tenderness Extremity: Normal Capillary Refill, Normal Inspection, Normal Range of Motion, Non Tender, No Calf Tenderness, No Pedal Edema Neurologic/Psychiatric: Alert, Oriented x3, No Motor/Sensory Deficits (weakness 4/5 legs, falls risk), Normal 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 FIM Transfers Therapy Code Descriptions/Definitions Functional [place] Measure: 0=Not Assessed/NA 4=Minimal Assistance 1=Total Assistance 5=Supervision or Setup 2=Maximal Assistance 6=Modified [place] 3=Moderate Assistance 7=Complete IndependenceSCALE: Activities may be completed with or without assistive devices. 0-Ljszsjizrl-heontcg completes the activity by him/herself with no assistance from a helper. 5-Set-up or Clean-up Assistance-helper sets up or cleans up; patient completes activity. Adrian assists only prior to or following the activity. 4-Supervision or Touching Assistance-helper provides verbal cues and/or touching/steadying and/or contact guard assistance as patient completes act ivity. Assistance may be provided throughout the activity or intermittently. 3-Partial/Moderate Assistance-helper does LESS THAN HALF the effort. Adrian lifts, holds or supports trunk or limbs, but provides less than half the effort. 2-Substantial/Maximal Assistance-helper does MORE THAN HALF the effort. Adrian lifts or holds trunk or limbs and provides more than half the effort. 0-Zinknlyji-twmymp does ALL the effort. Patient does none of the effort to complete the activity. Or, the assistance of 2 or more helpers is required for the patient to complete the activity. If activity was not attempted, code reason: 7-Patient Refused. 9-Not Applicable-not attempted and the patient did not perform the activity before the current illness, exacerbation or injury. 10-Not Attempted due to Environmental Limitations-(lack of equipment, weather restraints, etc.). 88-Not Attempted due to Medical Conditions or Safety Concerns. Roll Left to Right (QC): 4 Sit to Lying (QC): 4 Sit to Stand (QC): 4 Chair/Dii-zv-Ufigl Xfer(QC): 4 Car Transfer (QC): 4 Gait Training Does the Patient Walk?: Yes Walk 10 feet (QC): 4 Walk 50 ft with 2 Turns(QC): 4 Walk 150 ft (QC): 4 Walking 10ft/uneven surface-QC: 4 Gait Assistive Device: FWW Wheelchair Training Does the Pt Use a Wheelchair?: No Wheel 50 ft with 2 turns (QC): 9 Wheel 150 ft (QC): 9 Type of Wheelchair: Manual Stair Training #of Steps: 1 1 Step (curb) (QC): 4 4 Steps (QC): 88 12 Steps (QC): 88 Balance Picking up an Object (QC): 4 Assessment/Plan Assessment and Plan Assess & Plan/Chief Complaint Assessment: Parkinson's disease Falls Abrasion on back AF PVD CAD Urinary retention Chronic constipation Dementia Plan: IRF protocol BM regimen Patel cath per Dr Villanueva (1) Parkinsons disease (2) Dementia (3) Orthostasis (4) Labile hypertension (5) Falls frequently (6) Urinary retention (7) Constipation (8) DM (9) Obstructive sleep apnea of adult Status: Acute (10) PAD (peripheral artery disease) Status: Acute JULIA GILLESPIE DO Sep 18, 2019 12:21 POS
[2019-09-18] MEDS: LACTULOSE SYRUP 10GM/15ML (ENULOSE) 30ML UDC PO SCH ×2 (12:34→21:03)
[2019-09-18] MEDS: RIVAROXABAN 20 MG TABLET (XARELTO) PO SCH (16:18)
[2019-09-18] MEDS: TAMSULOSIN 0.4 MG (FLOMAX) CAP PO SCH (16:18)
[2019-09-18 17:22] VITALS: BP 137/66
--- NOTE | 2019-09-18 19:15 | NUR ---
bedside report received from CYNTHIA ROSSI, assume care of pt
[2019-09-18 21:00] VITALS: BP 173/86
[2019-09-18] MEDS: cefTRIAXone FOR IV USE 1,000 MG in WATER (STERILE) FOR INJECTION 10 ML IV SCH (21:01)
[2019-09-18] MEDS: ASPIRIN E.C. 81 MG (ECOTRIN) TAB PO SCH (21:02)
[2019-09-18] MEDS: meTOprolol TARTRATE 25 MG (LOPRESSOR) TABLET PO SCH (21:02)
[2019-09-18] MEDS: amLODIPine 5 MG (NORVASC) TAB PO PRN (21:02)
--- NOTE | 2019-09-18 21:02 | NUR ---
v/s 60-18-97%-173/86 Norvasc 5mg given, fsbs 240 NovoLog 3 units given
[2019-09-19] VITALS: BP 161/73
--- NOTE | 2019-09-19 | NUR ---
v/s 65-16-96%- 161/73
[2019-09-19] MEDS: inSUlin ASPART (NovoLOG) 1 UNIT/0.01 ML (CHARGE PER UNIT) SC SCH ×4 (06:00→21:08)
[2019-09-19 06:10] VITALS: BP 152/73
[2019-09-19] MEDS: CATHETER FLUSH 10 ML SYR IV SCH ×3 (06:21→20:59)
[2019-09-19 06:50] LABS: BASOPHILS % (AUTO) 0 % (0-10); EOSINOPHILS # (AUTO) 0.3 10^3/uL (0.0-0.3); EOSINOPHILS % (AUTO) 4 % (0-10); HEMATOCRIT 31 % (40-54); HEMOGLOBIN 10.2 G/DL (13.3-17.7); LYMPHOCYTES # (AUTO) 2.3 X 10^3 (1.0-4.0); LYMPHOCYTES % (AUTO) 33 % (12-44); MEAN CORPUSCULAR HEMOGLOBIN 31 PG (25-34); MEAN CORPUSCULAR HGB CONC 33 G/DL (32-36); MEAN CORPUSCULAR VOLUME 93 FL (80-99); MEAN PLATELET VOLUME 11.2 FL (7.4-10.4); MONOCYTES # (AUTO) 0.8 X 10^3 (0.0-1.0); MONOCYTES % (AUTO) 11 % (0-12); NEUTROPHILS # (AUTO) 3.7 X 10^3 (1.8-7.8); NEUTROPHILS % (AUTO) 52 % (42-75); PLATELET COUNT 178 10^3/uL (130-400); RED CELL DISTRIBUTION WIDTH 12.7 % (10.0-14.5); WHITE BLOOD COUNT 7.1 10^3/uL (4.3-11.0)
[2019-09-19 07:22] LABS: ALANINE AMINOTRANSFERASE 16 U/L (0-55); ALBUMIN 2.7 GM/DL (3.2-4.5); ALKALINE PHOSPHATASE 118 U/L (40-136); BILIRUBIN,TOTAL 0.6 MG/DL (0.1-1.0); BUN/CREATININE RATIO 15; CALCIUM 8.8 MG/DL (8.5-10.1); CARBON DIOXIDE 24 MMOL/L (21-32); CHLORIDE 106 MMOL/L (98-107); CREATININE SERUM 1.08 MG/DL (0.60-1.30); GFR ESTIMATED > 60; GLUCOSE 95 MG/DL (70-105); POTASSIUM 3.9 MMOL/L (3.6-5.0); SODIUM 137 MMOL/L (135-145); TOTAL PROTEIN 5.3 GM/DL (6.4-8.2)
--- NOTE | 2019-09-19 07:27 | NUR ---
bedside report given to JIN ROSSI
--- NOTE | 2019-09-19 08:15 | Progress Note ---
Subjective Time Seen by a Provider: 08:13 Subjective/Events-last exam Patient had confusion this weekend. Patient today doing much better. Patient to have ultrasound of possibility of pseudoaneurysm of left groin. Parkinson disease Objective Exam Vital Signs Date Time Temp Pulse Resp B/P (MAP) Pulse Ox O2 Delivery O2 Flow Rate FiO2 09/19/19 06:10 36.5 60 16 152/73 (99) 97 Room Air 09/19/19 00:00 65 16 161/73 (102) 96 Room Air 09/18/19 21:05 97 Room Air 09/18/19 21:00 36.0 60 18 173/86 (115) 97 Room Air 09/18/19 17:22 36.6 60 18 137/66 (89) 96 Room Air 09/18/19 08:54 96 Room Air I & O 09/19/19 07:00 Intake Total 875 ml Output Total 1675 ml Balance -800 ml Capillary Refill : General Appearance: No Apparent Distress, WD/WN HEENT: Normal ENT Inspection, Pharynx Normal Neck: Full Range of Motion, Normal Inspection, Non Tender Respiratory: Lungs Clear, No Accessory Muscle Use, No Respiratory Distress Cardiovascular: Regular Rate, Rhythm, No Murmur Gastrointestinal: non tender, soft Results Lab Laboratory Tests 09/18/19 11:07: Glucometer 188H 09/18/19 15:11: Glucometer 230H 09/18/19 20:18: Glucometer 240H 09/19/19 05:48: Glucometer 100 09/19/19 06:34: White Blood Count 7.1, Red Blood Count 3.27L, Hemoglobin 10.2L, Hematocrit 31L, Mean Corpuscular Volume 93, Mean Corpuscular Hemoglobin 31, Mean Corpuscular Hemoglobin Concent 33, Red Cell Distribution Width 12.7, Platelet Count 178, Mean Platelet Volume 11.2H, Neutrophils (%) (Auto) 52, Lymphocytes (%) (Auto) 33, Monocytes (%) (Auto) 11, Eosinophils (%) (Auto) 4, Basophils (%) (Auto) 0, Neutrophils # (Auto) 3.7, Lymphocytes # (Auto) 2.3, Monocytes # (Auto) 0.8, Eosinophils # (Auto) 0.3, Basophils # (Auto) 0.0, Sodium Level 137, Potassium Level 3.9, Chloride Level 106, Carbon Dioxide Level 24, Anion Gap 7, Blood Urea Nitrogen 16, Creatinine 1.08, Estimat Glomerular Filtration Rate > 60, BUN/Creatinine Ratio 15, Glucose Level 95, Calcium Level 8.8, Corrected Calcium 9.8, Total Bilirubin 0.6, Aspartate Amino Transf (AST/SGOT) 17, Alanine Aminotransferase (ALT/SGPT) 16, Alkaline Phosphatase 118, Total Protein 5.3L, Albumin 2.7L Assessment/Plan Assessment/Plan Assess & Plan/Chief Complaint Parkinson disease. Hypoglycemia. Hypertension. Weakness. Debility. Dementia. Clinical Quality Measures DVT/VTE Risk/Contraindication: Risk Factor Score Per Nursin RFS Level Per Nursing on Admit: 4+=Very High DENIZ KENT DO Sep 19, 2019 08:15 POS
[2019-09-19] MEDS ORDERED: INSU100I29 SQ (08:16)
--- NOTE | 2019-09-19 08:17 | NUR ---
REVIEWED MED REC IT WAS REPORTED UPON ADMISSION TO 4TH FLOOR. NOTE THE FOLLOWING CHANGES WERE MADE WHEN THE PATIENT DISCHARGED TO REHAB THAT ARE NOT CURRENTLY REFLECTED ON THE HOME MED REC. STOP TAKING: LEVEMIR 40 UNITS HS I DID NOT ADD BACK THE DOXYCYCLINE THAT WAS STOPPED, THIS WAS A SHORT SUPPLY OF MEDICATION FILLED 09-12-19 FOR 7 DAYS.
--- NOTE | 2019-09-19 08:30 | Cardiology Progress Note ---
Subjective Date Seen by Provider: Sep 19, 2019 Time Seen by Provider: 08:28 Subjective/Events-last exam Patient in bed, US tech at bedside. US revealing left groin pseudoaneurysm. Review of Systems General: No Chills, No Night Sweats; Fatigue, Malaise; No Appetite, No Other Pulmonary: No Dyspnea, No Cough, No Pleuritic Chest Pain, No Other Cardiovascular: No: Chest Pain, Palpitations, Orthopnea, Paroxysmal Noc. Dyspnea, Edema, Lt Headedness, Other Objective-Cardiology Exam Last Set of Vital Signs Vital Signs 09/19/19 06:10 Temp 36.5 Pulse 60 Resp 16 B/P (MAP) 152/73 (99) Pulse Ox 97 O2 Delivery Room Air Capillary Refill : I&O Intake and Output 09/19/19 00:00 Intake Total 675 ml Output Total 2075 ml Balance -1400 ml Intake Oral 675 ml Output Urine Total 2075 ml Bladder Scan Volume Amount 361 ml # Urine Diapers 2 General: Alert, Cooperative, Other (confused) HEENT: Atraumatic, PERRLA Neck: Supple, No JVD, No Thyromegaly Lungs: Normal Air Movement, Other (bilateral rhonchi) Heart: Regular Rate, Normal S1, Normal S2, No Murmurs Abdomen: Normal Bowel Sounds, Soft, No Tenderness, No Hepatosplenomegaly, No Masses Extremities: No Clubbing, No Cyanosis, No Edema, No Tenderness/Swelling, Other (diminished pulse LLE, L groin bruit) Skin: No Rashes, No Breakdown, No Significant Lesion Neuro: Normal Gait, Normal Speech, Strength at 5/5 X4 Ext, Normal Tone, Sensation Intact Psych/Mental Status: Mental Status NL, Mood NL Results Lab Laboratory Tests 09/19/19 06:34 A/P-Cardiology Admission Diagnosis Parkinson disease Peripheral arterial disease Coronary artery disease Hypertension Assessment/Plan Change in mental status, generalized weakness and loss of energy, Parkinson disease, multiple falls, currently in rehabilitation receiving physical and occupational therapy. X Left groin pseudoaneurysm per US done this morning. Severe Peripheral vascular disease, had nonhealing wound right lower extremity, underwent peripheral angiogram on August 17, 2019 revealing total occlusion of right SFA, successful angioplasty then deployment of 2 Supera stent [id number] and [id number] with excellent results and flow. Severe disease at the distal posterior tibial artery proximal anterior tibial artery. Heavily calcified left SFA with multiple segments of moderate to severe disease with occluded anterior tibial artery. Patient is maintained on Plavix and aspirin. Wound to right lower extremity is healing. Patient has known severe disease on the left side, we will continue with conservative management unless patient becomes symptomatic due to his comorbidities. Currently not having any symptoms, does not have any ulceration to left lower extremity. Continue to monitor Sick sinus syndrome, history of episodes of bradycardia with complete heart block, frequent PVCs, ventricular bigeminy and ventricular couplets, short PAT's. Status post permanent pacemaker implantation April 2015, using a [employer] device Advisa DR GONZALEZ, last interrogation was done in June 2019 showing good sensing and capture activity, longevity for the battery is 4 years, no arrhythmia was detected. Continue to monitor Nonsustained ventricular tachycardia, has been maintained on amiodarone 200 mg daily. No recent arrhythmia on pacemaker interrogation, continue to monitor. Paroxysmal atrial fibrillation, maintained on Amiodarone, continue to monitor. [id number] score of 6, high risk, yearly risk of stroke without OAC is 9.8%. Maintained on Xarelto, continue to monitor Coronary artery disease, multiple interventions in the past, most recent cardiac catheterization done March 14, 2015 revealed extensive coronary artery disease, heavily calcified system, with 40 percent distal left main coronary artery belkis nosis. 3 stents in LAD proximally with 50-60 percent in-stent restenosis. Distal LAD had 95 percent stenosis followed by 80 percent stenosis long segment, very small artery not amendable to intervention. Total occlusion of the first obtuse marginal branch filled by collaterals. Patent stent in the proximal mid second OM branch with moderate disease in the distal proper circumflex artery. Patent stent in the RCA with 50 percent proximal right coronary artery stenosis and 50-60 distal right coronary artery stenosis. Asymptomatic, continue to monitor Stress test in July 2016 showed fixed defect involving the whole inferior wall and inferoapical segment with dilated left ventricle, inferior wall hypokinesia, Ejection fraction 54 percent. Echocardiogram showed ejection f raction 60 percent, dilated left atrium, mild to moderate mitral regurgitation and pulmonary artery pressure of 35 mmHg. continue to monitor, Hypertension, has history of orthostatic hypotension, monitor blood pressure Hyperlipidemia, maintained on Crestor, continue to monitor lipids. History of CVA in 2010, mild residual right sided weakness, episodes of confusion occurred over the last year where patient became confused and drove over once to [place] and once to [place]. It was felt that it was a global ischemic attack with confusion, workup at that time was negative. He was seen by Dr. Jiménez and started on Dilantin, the dose was increased by Dr. Damon, followed and managed by primary care physician Congestive heart failure, EF 45-50 percent, as well as diastolic dysfunction per most recent 2-D echocardiogram done 2018, continue with current medication Diabetes mellitus, followed and managed by primary care physician Carotid stenosis, monitored by Dr. Simmons's office Dementia, managed by primary care physician. Ex-Tobaccoism, patient smokes pipe, he stopped smoking in October, encouraged to continue with smoking cessation Peripheral neuropathy, maintained on gabapentin. Continue on current medication, continue to monitor Sleep apnea, severe on sleep study in October 2015, does not use his machine. Patient was seen and evaluated with Yee, examination performed, management plan was discussed, agree with the current scribed note, I made few changes to the note using Italic font Patient is receiving physical therapy, doing well Small left sided pseudoaneurysm at the left common femoral artery Peripheral arterial disease, wound is healing Continue with conservative management and we'll discuss with Dr. Ugalde regarding thrombin injection Clinical Quality Measures DVT/VTE Risk/Contraindication: Risk Factor Score Per Nursin RFS Level Per Nursing on Admit: 4+=Very High Supervisory-Addendum Brief Supervisory Addendum Participated in pt care: history, MDM, physical Personally performed: exam, history, MDM Care discussed with: YEE CONROY Sep 19, 2019 08:30 SEBASTIÁN ZAVALETA MD Sep 19, 2019 09:41 POS
[2019-09-19] MEDS: CLOPIDOGREL 75 MG (PLAVIX) TABLET PO SCH (08:46)
[2019-09-19] MEDS: TAMSULOSIN 0.4 MG (FLOMAX) CAP PO SCH ×2 (08:47→20:55)
[2019-09-19] MEDS: GABAPENTIN 300 MG (NEURONTIN) CAP PO SCH ×2 (08:48→20:56)
[2019-09-19] MEDS: AMIODARONE 200 MG (CORDARONE) TAB PO SCH (08:49)
[2019-09-19] MEDS: PANTOPRAZOLE 40 MG (PROTONIX) TAB PO SCH (08:49)
[2019-09-19] MEDS: SINEMET CR 50/200 (CARBIDOPA/LEVODOPA SA) TAB PO SCH ×3 (08:50→20:56)
[2019-09-19] MEDS: SENNA W/DOCUSATE (SENOKOT S) TABLET PO SCH ×2 (08:51→20:57)
[2019-09-19] MEDS: LACTULOSE SYRUP 10GM/15ML (ENULOSE) 30ML UDC PO SCH ×2 (08:51→20:57)
[2019-09-19] MEDS: DOCUSATE SODIUM 100 MG (COLACE) CAP PO SCH ×2 (08:51→20:55)
[2019-09-19] MEDS: POLYETHYLENE GLYCOL 17 GM (MIRALAX) PACK PO SCH ×2 (08:55→20:57)
--- NOTE | 2019-09-19 09:15 | Diagnostic Imaging Report ---
INDICATION: Left groin pain post catheterization. Left groin arterial Doppler study performed in routine fashion with color flow Doppler waveform analysis. Left common femoral artery is patent with biphasic flow. There is a pseudoaneurysm arising anteriorly from the left common femoral artery measuring about 1.7 x 1.0 cm. IMPRESSION: Left groin pseudoaneurysm seen as above, arising from the left common femoral artery anteriorly. The pseudoaneurysm measures about 1.7 x 1.0 cm. Dictated by: Dictated on workstation # [id number]
--- NOTE | 2019-09-19 09:52 | PM&R Progress Note ---
Subjective HPI/CC On Admission Date Seen by Provider: Sep 19, 2019 Time Seen by Provider: 08:30 Subjective/Events-last exam More lucid today PCP even says he has improved Left ultrasound complete to evaluate for pseudoaneurysm Bowel movement was last on 09/16 so will give prn meds and a suppository Patel maintained by Dr. Villanueva Appears to be progressing nicely Check meds and labs Reviewed therapy notes Conferred with home energy auditor of Systems General: Fatigue Neurological: Weakness, Numbness, Incoordination, Confusion Objective Exam Vital Signs Vital Signs Date Time Temp Pulse Resp B/P (MAP) Pulse Ox O2 Delivery O2 Flow Rate FiO2 09/19/19 18:56 64 118/73 (88) 09/19/19 16:00 35.8 16 92 Room Air Capillary Refill : General Appearance: No Apparent Distress, WD/WN, Chronically ill HEENT: Normal ENT Inspection, Pharynx Normal Neck: Full Range of Motion, Normal Inspection, Non Tender Respiratory: Chest Non Tender, Lungs Clear, No Accessory Muscle Use, No Respiratory Distress Cardiovascular: Regular Rate, Rhythm, No Murmur Gastrointestinal: Normal Bowel Sounds, No Organomegaly, No Pulsatile Mass, Non Tender, Soft Back: Normal Inspection, No CVA Tenderness, No Vertebral Tenderness Extremity: Normal Capillary Refill, Normal Inspection, Normal Range of Motion, Non Tender, No Calf Tenderness, No Pedal Edema Neurologic/Psychiatric: Alert, Oriented x3, No Motor/Sensory Deficits (weakness 4/5 legs, falls risk), Normal 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 FIM Transfers Therapy Code Descriptions/Definitions Functional [place] Measure: 0=Not Assessed/NA 4=Minimal Assistance 1=Total Assistance 5=Supervision or Setup 2=Maximal Assistance 6=Modified [place] 3=Moderate Assistance 7=Complete IndependenceSCALE: Activities may be completed with or without assistive devices. 7-Upkhmqiiko-gxjymvh completes the activity by him/herself with no assistance from a helper. 5-Set-up or Clean-up Assistance-helper sets up or cleans up; patient completes activity. [place] assists only prior to or following the activity. 4-Supervision or Touching Assistance-helper provides verbal cues and/or touching/steadying and/or contact guard assistance as patient completes activity. Assistance may be provided throughout the activity or intermittently. 3-Partial/Moderate Assistance-helper does LESS THAN HALF the effort. [place] lifts, holds or supports trunk or limbs, but provides less than half the effort. 2-Substantial/Maximal Assistance-helper does MORE THAN HALF the effort. [place] lifts or holds trunk or limbs and provides more than half the effort. 7-Xsfhvkhhg-lsmoql does ALL the effort. Patient does none of the effort to complete the activity. Or, the assistance of 2 or more helpers is required for the patient to complete the activity. If activity was not attempted, code reason: 7-Patient Refused. 9-Not Applicable-not attempted and the patient did not perform the activity before the current illness, exacerbation or injury. 10-Not Attempted due to Environmental Limitations-(lack of equipment, weather restraints, etc.). 88-Not Attempted due to Medical Conditions or Safety Concerns. Roll Left to Right (QC): 4 Sit to Lying (QC): 4 Sit to Stand (QC): 4 Chair/Xmu-ll-Uhzjv Xfer(QC): 4 Car Transfer (QC): 4 Gait Training Does the Patient Walk?: Yes Walk 10 feet (QC): 4 Walk 50 ft with 2 Turns(QC): 4 Walk 150 ft (QC): 4 Walking 10ft/uneven surface-QC: 4 Gait Assistive Device: FWW Wheelchair Training Does the Pt Use a Wheelchair?: No Wheel 50 ft with 2 turns (QC): 9 Wheel 150 ft (QC): 9 Type of Wheelchair: Manual Stair Training #of Steps: 1 1 Step (curb) (QC): 4 4 Steps (QC): 88 12 Steps (QC): 88 Balance Picking up an Object (QC): 4 Assessment/Plan Assessment and Plan Assess & Plan/Chief Complaint Assessment: Parkinson's disease Falls Abrasion on back AF PVD CAD Urinary retention Chronic constipation Dementia Plan: IRF protocol BM regimen Patel cath per Dr Villanueva US check (1) Parkinsons disease (2) Dementia (3) Orthostasis (4) Labile hypertension (5) Falls frequently (6) Urinary retention (7) Constipation (8) DM (9) Obstructive sleep apnea of adult Status: Acute (10) PAD (peripheral artery disease) Status: Acute JULIA GILLESPIE DO Sep 19, 2019 09:52 POS
--- NOTE | 2019-09-19 09:53 | Physical Therapy Daily Note ---
PT Daily Note-Current Subjective Patient in bed pre tx, agrees to PT, has no complaints of pain at rest. Patient has a wound on his back, showed the nurse and she put a bandage on it. Patient needs dressed. Appearance Patient in bed post tx with nurse call, phone, tray, bed alarm on. Mental Status Patient Orientation: Person, Confused Attachments: Patel Catheter Transfers SCALE: Activities may be completed with or without assistive devices. 7-Ejhpwrujae-lpxzbzw completes the activity by him/herself with no assistance from a helper. 5-Set-up or Clean-up Assistance-helper sets up or cleans up; patient completes activity. [place] assists only prior to or following the activity. 4-Supervision or Touching Assistance-helper provides verbal cues and/or touching/steadying and/or contact guard assistance as patient completes activity. Assistance may be provided throughout the activity or intermittently. 3-Partial/Moderate Assistance-helper does LESS THAN HALF the effort. [place] lifts, holds or supports trunk or limbs, but provides less than half the effort. 2-Substantial/Maximal Assistance-helper does MORE THAN HALF the effort. [place] lifts or holds trunk or limbs and provides more than half the effort. 1-Irnadzlwe-ykiyub does ALL the effort. Patient does none of the effort to complete the activity. Or, the assistance of 2 or more helpers is required for the patient to complete the activity. If activity was not attempted, code reason: 7-Patient Refused. 9-Not Applicable-not attempted and the patient did not perform the activity before the current illness, exacerbation or injury. 10-Not Attempted due to Environmental Limitations-(lack of equipment, weather restraints, etc.). 88-Not Attempted due to Medical Conditions or Safety Concerns. Roll Left & Right (QC): 6 Sit to Lying (QC): 4 Lying to Sitting/Side of Bed(Q: 4 Sit to Stand (QC): 4 (CGA) Chair/Ugj-qc-Omqen Xfer(QC): 4 (CGA) Patient needs many cues for positioning and safety, he will always stand with hands on the walker in stead of surface he is standing from. Gait Training Distance: 200'x2 Walk 10 feet (QC): 4 Walk 50 ft with 2 Turns(QC): 4 Walk 150 ft (QC): 4 Gait Persons Needed: 1 Gait Assistive Device: FWW Less shuffling, needs cues for direction due to confusion, better step-through. Exercises NuStep Minutes: 15 NuStep Workload: 5 Treatments dressing, bed mobility and transfers, ambulation, LE strengthening Assessment Current Status: Fair Progress improving ambulation PT Short Term Goals Short Term Goals Time Frame: Sep 24, 2019 Roll Left & Right: 6 Sit to lyin Lying to sitting on side of be: 6 Sit to stand: 4 (SBA) Chair/sqx-ao-qpzcp transfer: 4 (SBA) Walk 10 feet: 4 (SBA) Walk 50 feet with two turns: 4 (SBA) Walk 150 feet: 4 (SBA) PT Nursing Home Goals Nursing Home Goals PT Nursing Home Goals Time Frame: Oct 08, 2019 Roll Left & Right (QC): 6 Sit to Lying (QC): 6 Lying-Sitting on Side/Bed(QC): 6 Sit to Stand (QC): 6 Chair/Uyb-bw-Gnnew Xfer(QC): 6 Toilet Transfer (QC): 6 Car Transfer (QC): 6 Does the Patient Walk: Yes Walk 10 feet (QC): 6 Walk 50ft with 2 Turns (QC): 6 Walk 150 ft (QC): 6 Walking 10ft on Uneven Surface: 6 1 Step (curb) (QC): 4 4 Steps (QC): 4 12 Steps (QC): 88 Picking up an Object (QC): 6 Does the Pt use WC or Scooter?: No Type: N/A Type: N/A PT Plan Problem List Problem List: Activity Tolerance, Functional Strength, Safety, Balance, Gait, Transfer, Bed Mobility Treatment/Plan Treatment Plan: Continue Plan of Care Treatment Plan: Education, Functional Activity Navya, Functional Strength, Group Therapy, Gait, Safety, Therapeutic Exercise, Transfers Treatment Duration: Oct 08, 2019 Frequency: At least 5 of 7 days/Wk (IRF) Estimated Hrs Per Day: 1.5 hours per day Patient and/or Family Agrees t: Yes Safety Risks/Education Patient Education: Gait Training, Transfer Techniques, Correct Positioning, Safety Issues Teaching Recipient: Patient Teaching Methods: Demonstration, Discussion Response to Teaching: Reinforcement Needed Time/GCodes Time In: 0900 Time Out: 0945 Total Billed Treatment Time: 45 Total Billed Treatment 1 visit GT 20' EX 15' FA 10' FABRICIO ALFONSO PT Sep 19, 2019 09:53 POS
--- NOTE | 2019-09-19 10:11 | ST Cognitive Linguistic Eval ---
Speech Evaluation-General Medical Diagnosis AMS, volume depletion, UTI Onset Date: Sep 14, 2019 Therapy Diagnosis Therapy Diagnosis: Cognitive-communication Precautions Precautions/Isolations: Fall Prevention Referral Referring Physician: Dr. Escalante Medical History Pertinent Medical History: Atrial Fib, CAD, CVA, DM, Dementia, Parkinson's Reviewed History: Yes Social History Current Living Status: Spouse Speech PLF-Current Status Prior Level of Function Patient lives at home with his where he receives help from family for his daily needs. Subjective Patient was cooperative with the cognitive assessment. Language Eval: Auditory Comprehends Simple Yes/No Ques: Functional Indent/Objects [place]: Functional Ident/Pics in [place]: Functional Follows 1-Step Commands: Mild Follows Complex Directions: Moderate Follows General Conversations: Mild Language Eval: Verbal Language Completes Spontaneous Greeting: Functional Produces Auto, Serial Info: Mild Imitates Simple Words/Phrases: Functional Word Finding: Mild Requests Basic Needs: Functional States Basic Personal Info: Mild Expresses Complex Ideas: Moderate Objective Cognitive Domain Attention: WNL Memory: Moderate Problem Solving: Moderate Executive Functions: Moderate Visuospatial Skills: Mild Composite Severity Rating: Mild Clock Drawing Severity Rating: Moderate Objective Formal/Standardized Tests [facility] Status ([facility]) Oral Motor/Speech Production 14/30, Moderate Dementia Range of Function Impression The patient is a pleasant 78 year old male who is known to me from previous admission. Patient was admitted to the ARU s/p fall. Patient has a history of Parkinson's. Patient was given the SLUMS with a score of 14/30 obtained. Patient will receive skilled ST services for improving cognitive function with focus on safety awareness and independence. Speech Patient Assess Expression of Ideas/Wants: Frequently (2) Understanding Verbal Content: Usually Understands (3) Brief Interview-Mental Status: Yes Repetition of Three Words: Three (3) Temporal Orientation: Year: Correct (3) Temporal Orientation: Month: Missed by 6 days-1 month (1) Temporal Orientation: Day: Incorrect or No Answer(0) Recall : Wear to say "Sock": Yes,after cueing (1) Recall : Color: No, could not recall (0) Recall : Bed: No, could not recall (0) Memory/Recall Ability: That he or she is in a hsp/hsp unit Speech Short Term Goals Short Term Goals Short Term Goals 1) The patient will complete memory tasks related to her daily needs at 90% or greater with minimal cues. 2) The patient will complete safety awareness tasks related to her daily needs at 90% or greater with minimal cues. 3) The patient will complete problem solving tasks related to her daily needs at 90% or greater with minimal cues. Speech Sales Data Analyst Goals Sales Data Analyst Goals The patient will improve cognitive-communication necessary for safety and daily living tasks with minimal assist. Speech-Plan Patient/Family Goals Patient/Family Goals: Patient plans on returning home with family upon rehab discharge. Treatment Plan Speech Therapy Treatment Plan: Continue Plan of Care Patient will receive skilled ST services. Treatment Duration: Sep 30, 2019 Frequency: 5 times per week Estimated Hrs Per Day: .5 hour per day Rehab Potential: Fair Barriers to Learning: Patient scored in the moderate dementia level of function. Pt/Family Agrees to Plan: Yes Safety Risks/Education Teaching Recipient: Patient Teaching Methods: Discussion Response to Teaching: Verbalize Understanding Education Topics Provided: Safety within his room and utilization of the call light as needed Time Speech Therapy Time In: 09:45 Speech Therapy Time Out: 10:00 Total Billed Time: 15 Billed Treatment Time 1, PATRICK Benavidez Sep 19, 2019 10:11 POS
--- NOTE | 2019-09-19 10:32 | Progress Note ---
DENY GAITAN,MED STUDENT 09/19/19 1032: Progress Note Patient doing well today. No new complaints or concerns. Denies any pain or shortness of breath. On bowel regimen at home, started lactulose yesterday, no BM today yet. OT/PT is going well. Ultrasound of left femoral region performed this morning. Dr. Villanueva managing palmer catheter. Barriers to returning home at this time include increased fall risk, dementia requiring supervision, poor compliance with CPAP machine, and urinary retention due to phimosis requiring palmer catheter. MARIA T GILLESPIE DO 09/19/192055: Supervisory-Addendum Brief Verification & Attestation Participated in pt care: history, MDM, physical Personally performed: exam, history, MDM, supervision of care Care discussed with: Medical Student Procedures: n/a Results interpretation: Verified all documentation Verification and Attestation of Medical Student E/M Service A medical student performed and documented this service in my presence. I reviewed and verified all information documented by the medical student and made modifications to such information, when appropriate. I personally performed the physical exam and medical decision making. Maria T Gillespie, Sep 19, 2019,20:56 DENY GAITAN,MED STUDENT Sep 19, 2019 10:32 MARIA T ARZATE DO Sep 19, 2019 20:56 POS
--- NOTE | 2019-09-19 11:40 | Occupational Therapy Eval ---
OT Evaluation-General/PLF Medical Diagnosis Admission Date Sep 17, 2019 at 09:00 Medical Diagnosis: AMS, volume depletion, UTI Onset Date: Sep 14, 2019 Therapy Diagnosis Therapy Diagnosis: decr self care, weakness, decr funct mob, decr cognition, decr activ tolera Height/Weight Height (Feet): 6 Height (Inches): 0.00 Weight (Pounds): 177 Weight (Ounces): 9.6 Precautions Precautions/Isolations: Fall Prevention Safety Interventions: Bed Exit Alarm Referral Physician: Maria T Escalante DO Referral Reason: Evaluation/Treatment Medical History Pertinent Medical History: Atrial Fib, CAD, CVA, DM, Dementia, Parkinson's, PVD Additional Medical History Pacemaker. L groin pseudoaneurysm. Orthostasis. BPH. Current History Admitted with AMS, volume depletion, UTI. Fall at home. L eye is red, since fall. Reviewed History: Yes Social History Home: Single Level Current Living Status: Spouse Entry Into Home: Level Entry ADL-Prior Level of Function SCALE: Activities may be completed with or without assistive devices. 1-Kwhlnfxtfx-buchhdv completes the activity by him/herself with no assistance from a helper. 5-Set-up or Clean-up Assistance-helper sets up or cleans up; patient completes activity. [place] assists only prior to or following the activity. 4-Supervision or Touching Assistance-helper provides verbal cues and/or touching/steadying and/or contact guard assistance as patient completes activity. Assistance may be provided throughout the activity or intermittently. 3-Partial/Moderate Assistance-helper does LESS THAN HALF the effort. [place] lifts, holds or supports trunk or limbs, but provides less than half the effort. 2-Substantial/Maximal Assistance-helper does MORE THAN HALF the effort. [place] lifts or holds trunk or limbs and provides more than half the effort. 0-Ygidlsiig-vvajfo does ALL the effort. Patient does none of the effort to complete the activity. Or, the assistance of 2 or more helpers is required for the patient to complete the activity. If activity was not attempted, code reason: 7-Patient Refused. 9-Not Applicable-not attempted and the patient did not perform the activity before the current illness, exacerbation or injury. 10-Not Attempted due to Environmental Limitations-(lack of equipment, weather restraints, etc.). 88-Not Attempted due to Medical Conditions or Safety Concerns. ADL PLOF Comments Pt stated that he was independent with ADLs, without use of assistive devices. He was on the ARU last year and required assistance or supervision with all ADLs at discharge. Self Care: Needed Some Help Functional Cognition: Needed Some Help DME/Equipment: Tub/Shower Occupation: retired Drive Self: No OT Current Status Subjective Pt seen in room, up in bed, agreeable to OT. Pt reported pain 0/10. Appearance Pt oriented to name and but not current date. Mental Status/Objective Patient Orientation: Person Attachments: Patel Catheter, Saline Lock Current Glasses/Contacts: No Hearing Aids: No Dentures/Partials: Yes Hand Dominance: Left Upper Extremity ROM Grossly WFL bilat Upper Extremity Sensation No problems per pt report Upper Extremity Strength Grossly 4/5 bilat but difficulty following instructions ADL-Treatment ADL-Current Pt was able to move to sit EOB with SBA. He had difficulty maintaining sitting and several times leaned back and toward his L side, needing cues to sit upright. He was able to take shirt off with SBA and don shirt with SBA (monitoring balance at EOB). He needed cues each time he stood or sat for hand placement, tending to want to pull up from FWW. He was able to pull pants down over hips with CGA but needed help to get pants off over feet or put them on over feet. He stood CGA, FWW to pull pants up. he could take slipper socks off but needed help to put them back on. He washed his upper body with supervision and tended to perseverate washing some parts. He needed cues to wash arms. OT washed his back. He was able to wash his roderick front and back with CGA and cues. Washed legs and feet, requiring initiation cues and again perseverated on washing parts. Declined shower. He got up from EOB with CGA, cues for hand placement, and walked CGA, FWW to bathroom. Transferred onto toilet with CGA, cues for hand placement and CGA for clothing management. Able to wipe bottom but not effectively and perseverated on folding toilet paper. He walked CGA, FWW to sink and needed initiation cues to wash hands. He had difficulty maintaining standing at sink and walked min assist back to bed, with multiple cues. He was distracted by Patel tubing. Cues for hand placement for sitting. He was unable to sit upright to brush his teeth at EOB and needed cues to put legs into bed. He needed cues and help with hand placement to pull himself up in bed. Her brushed his teeth with initiation cues for steps and could brush his hair with setup. Able to get a drink and feed himself, with supervision, initiation cues. He completed 10 reps bilat AROM to help with increasing activity tolerance and UE strength and was not able to accurately track repetitions. Pt left up in bed, 4 rails up, bed alarm on. He also had difficulty staying awake on and off throughout tx. Eating (QC): 4 (supervision, initiation cues) Oral Hygiene (QC): 4 (Supervision, initiation cues) Shower/Bathe Self (QC): 4 (Initiation cues, supervision for balance, CGA when standing to wash roderick and bottom. Close supervision to wash feet and skilled cues.) Upper Body Dressing (QC): 4 (Supervision, initiation cues) Lower Body Dressing (QC): 3 (Help to get pants off/on over feet. CGA when standing to pull pants up/down. FWW) On/Off Footwear (QC): 3 (Help to put socks on but able to take them off with initiation cues) Toileting Hygiene (QC): 3 (Supervision, help to wipe (ineffective). CGA to manage clothing. Cues for hand placement, FWW) Toilet Transfer (QC): 4 (CGA, supervision, cues for hand placement) Education OT Patient Education: Modified ADL techniques, Purpose of tx/functional activities, Rehab process, Safety issues, Transfer techniques Teaching Recipient: Patient Teaching Methods: Demonstration, Discussion Response to Teaching: Verbalize Understanding, Return Demonstration, [facility] Needed OT Short Term Goals Short Term Goals Time Frame: Sep 26, 2019 Toileting hygiene: 4 Lower body dressin Putting on/taking off footwear: 4 OT Shelter Goals Shelter Goals Time Frame: Oct 04, 2019 Eating (QC): 5 Oral Hygiene (QC): 5 Toileting Hygiene (QC): 5 Shower/Bathe Self (QC): 5 Upper Body Dressing (QC): 5 Lower Body Dressing (QC): 5 On/Off Footwear (QC): 5 Additional Goals: 1-Demonstrate ADL Tasks, 2-Verbalize Understanding, 3- ImproveStrength/Navya 1=Demonstrate adherence to instructed precautions during ADL tasks. 2=Patient will verbalize/demonstrate understanding of assistive devices/modifications for ADL. 3=Patient will improve strength/tolerance for activity to enable patient to perform ADL's. OT Education/Plan Problem List/Assessment Assessment: Decreased Safety Aware, Decreased UE Strength, Dependent Transfers, Impaired Cognition, Impaired Self-Care Skills Pt would benefit from skilled OT to increase his independence with basic self care to allow him to safely return home and decrease risk of falling. Discharge Recommendations Plan/Recommendations: Continue POC Treatment Plan/Plan of Care Treatment,Training & Education: Yes Patient would benefit from OT for education, treatment and training to promote independence in ADL's, mobility, safety and/or upper extremity function for ADL's. Plan of Care: ADL Retraining, Functional Mobility, Group Exercise/Act as Ind (education, exercise, activity tolerance, functional mobility, socialization, memory), UE Funct Exercise/Act, UE Neuromus Re-Ed/Coord Treatment Duration: Oct 04, 2019 Frequency: At least 5 of 7 days/Wk (IRF) Estimated Hrs Per Day: 1.5 hours per day (1.25 to 1.5) Agreement: Yes Rehab Potential: Fair Time/GCodes Start Time: 10:00 Stop Time: 11:30 Total Time Billed (hr/min): 90 Billed Treatment Time visit, 15 minutes evaluation, 65 minutes ADL, 10 minutes exercise CECILIA BOYD OT Sep 19, 2019 11:40 POS
--- NOTE | 2019-09-19 13:05 | Physical Therapy Daily Note ---
PT Daily Note-Current Subjective Pt agreeable to PT session. States he fell asleep when they brought his lunch tray, so will eat after PT. Pain Location: No Pain Reported Appearance Upon arrival, pt in bed, assisting him to eat a little. At end of session, pt sitting up in recliner with lunch tray in front of him, chair alarm activated, call light, phone and bedside table within reach. Mental Status Patient Orientation: Person, Place, Eyes Open Pt a little confused, answering questions for him. Transfers SCALE: Activities may be completed with or without assistive devices. 2-Uspmfbdkjy-gdgqyaq completes the activity by him/herself with no assistance from a helper. 5-Set-up or Clean-up Assistance-helper sets up or cleans up; patient completes activity. [place] assists only prior to or following the activity. 4-Supervision or Touching Assistance-helper provides verbal cues and/or touching/steadying and/or contact guard assistance as patient completes act ivity. Assistance may be provided throughout the activity or intermittently. 3-Partial/Moderate Assistance-helper does LESS THAN HALF the effort. [place] lifts, holds or supports trunk or limbs, but provides less than half the effort. 2-Substantial/Maximal Assistance-helper does MORE THAN HALF the effort. [place] lifts or holds trunk or limbs and provides more than half the effort. 1-Cjvuntofj-kiysup does ALL the effort. Patient does none of the effort to complete the activity. Or, the assistance of 2 or more helpers is required for the patient to complete the activity. If activity was not attempted, code reason: 7-Patient Refused. 9-Not Applicable-not attempted and the patient did not perform the activity before the current illness, exacerbation or injury. 10-Not Attempted due to Environmental Limitations-(lack of equipment, weather restraints, etc.). 88-Not Attempted due to Medical Conditions or Safety Concerns. Roll Left & Right (QC): 4 Lying to Sitting/Side of Bed(Q: 3 (bedrail, HOB elevated, min A, max verb encouragement, very slow) Sit to Stand (QC): 4 (skilled verb inst for hand placement and safety) Gait Training Does the Patient Walk?: Yes Distance: 328 Walk 10 feet (QC): 4 Walk 50 ft with 2 Turns(QC): 4 Walk 150 ft (QC): 4 Gait Persons Needed: 1 Gait Assistive Device: FWW decreased safety awareness, running into objects L side unless instructed to move around them, follows directions fairly well, easily distracted, decreased step length LLE, shuffling gait, head fwd flexed Exercises Seated Therapy Exercises: Ankle pumps (20), Sit to stand (10, skilled inst for hand placement, technique and safety), Long arc quads (20, BLE simultaneously), Hip flexion (20, alt LE's), Hamstring Curls (20, BLE's simultaneously), Hip abd/add (20, knees extended, BLE's simultaneously) Treatments education, safety, strength, balance, bed mobility, gait, transfers, activity tolerance, functional mobility Assessment increased gait distance, easily distracted, decreased safety awareness PT Short Term Goals Short Term Goals Time Frame: Sep 24, 2019 Roll Left & Right: 6 Sit to lyin Lying to sitting on side of be: 6 Sit to stand: 4 (SBA) Chair/hej-xp-uwwdo transfer: 4 (SBA) Walk 10 feet: 4 (SBA) Walk 50 feet with two turns: 4 (SBA) Walk 150 feet: 4 (SBA) PT Custodial Goals Satellite Manager Goals PT Satellite Manager Goals Time Frame: Oct 08, 2019 Roll Left & Right (QC): 6 Sit to Lying (QC): 6 Lying-Sitting on Side/Bed(QC): 6 Sit to Stand (QC): 6 Chair/Ehl-ee-Gslku Xfer(QC): 6 Toilet Transfer (QC): 6 Car Transfer (QC): 6 Does the Patient Walk: Yes Walk 10 feet (QC): 6 Walk 50ft with 2 Turns (QC): 6 Walk 150 ft (QC): 6 Walking 10ft on Uneven Surface: 6 1 Step (curb) (QC): 4 4 Steps (QC): 4 12 Steps (QC): 88 Picking up an Object (QC): 6 Does the Pt use WC or Scooter?: No Type: N/A Type: N/A PT Plan Treatment/Plan Treatment Plan: Continue Plan of Care Treatment Plan: Education, Functional Activity [place], Functional Strength, Group Therapy, Gait, Safety, Therapeutic Exercise, Transfers Treatment Duration: Oct 08, 2019 Frequency: At least 5 of 7 days/Wk (IRF) Estimated Hrs Per Day: 1.5 hours per day Patient and/or Family Agrees t: Yes Safety Risks/Education Patient Education: Gait Training, Transfer Techniques, Safety Issues Teaching Recipient: Patient Teaching Methods: Demonstration, Discussion Response to Teaching: Verbalize Understanding, Return Demonstration, Reinforcement Needed Time/GCodes Time In: 1300 Time Out: 1330 Total Billed Treatment Time: 30 Total Billed Treatment 1 visit, EX x15 min, GT x15 min JOHNNA BOSWELL PTA Sep 19, 2019 13:05 POS
--- NOTE | 2019-09-19 13:47 | NUR ---
"RD ASSESSMENT PMHx: Parkinson's Disease; CAD; HTN; HLD; DM; dementia PT INTERACTION: Pt was awake and pleasant during nutrition assessment. Note pt has AMS, per chart review. Pt states current appetite is good, and has been for some time. Note pt avg PO intake of 65% x2d, per chart review. Pt states following a regular diet at home and has no issues chewing/swallowing food at this time. Pt states no recent issues with n/v/c/d at this time and states last BM was 09/18. Note pt currently on bowel regimen of colace BID; miralax BID; senna BID; and bisacodyl PRN, per chart review. Pt states no recent wt changes. Note unable to determine recent wt hx, per chart review. ABNORMAL NUTRITION-RELATED LAB VALUES LOW: Pro 5.3; alb 2.7 HIGH: Est. kcal needs: 1766-0830 kcal | 25-30 kcal/kg Est. Pro needs: 90-106 g Pro | 1.2-1.4 g Pro/kg PES STATEMENT: Inadequate oral intake (NI-2.1) related to loss of appetite as evidenced by pt interview | avg PO intake 65% x2d Inadequate oral intake (NI-5.6.1) related to increased protein needs as evidenced by abnormal lab values of Pro 5.3 and alb 2.7 INTERVENTION: Continue with current diet order of CHO 60g/m 1snack diet. Add Ensure HP (vary) to meals TID for increased protein intake. Provides 160 kcal and 16 g Pro per serving. Will continue to follow and reassess as pt needs and status change. MONITOR/EVALUATE: PO Intake; Plan of Care; Hydration Status; Weight Status; Lab Values David Henley, MS, RD, LD"
[2019-09-19 16:00] VITALS: BP 90/57
--- NOTE | 2019-09-19 16:20 | NUR ---
Initial Assessment Patient admitted to ARU 09/17/19 for Parkinson's Disease after a medical inpatient stay from 09/14/19. His diagnoses include dementia and EMR reflects poor recall and increased falls. Patient resides at home with his spouse, Manisha Nassar. He indicates he has 3 children, two sons, Shadi ([phone]) and Nic, and a daughter Sheyla Nassar. DME: He has FWW, BSC/frame, shower chair, wheelchair. ADVANCED DIRECTIVE: Patient indicated he had not completed this document, will explore with family. PCP: Dr. Mando Damon, [place]. INSURED: Medicare with [employer] supplement. Discussed weekly team conference and purpose, patient displayed understanding.
[2019-09-19] MEDS: RIVAROXABAN 20 MG TABLET (XARELTO) PO SCH (16:59)
[2019-09-19 18:56] VITALS: BP 118/73
--- NOTE | 2019-09-19 19:16 | NUR ---
bedside report received from JIN ROSSI, assume care of pt
--- NOTE | 2019-09-19 19:34 | Wound Care Assessment ---
Wound Care Assessment Date Seen by Provider: Sep 19, 2019 Time Seen by Provider: 18:20 Chief Complaint Ulcers of back, sacrum, and R ankle. HPI The patient is a 78 year old male with dementia, hydrocephalus, limited mobility and pressure ulcers as above. These are stable to improved with current dressings. He is encouraged to lie on one side or the other. Smoking Status: Former Smoker Recreational Drug Use: No Alcohol Use: Denies Use Exam Vital Signs Date Time Temp Pulse Resp B/P (MAP) Pulse Ox O2 Delivery O2 Flow Rate FiO2 09/19/19 18:56 64 118/73 (88) 09/19/19 16:00 35.8 16 92 Room Air Capillary Refill : Back: other (Upper back -- 5.0 x 5.0 x 0.2 cm, Base with large amount of slough, partial thickness.) Extremities: other (R ankle -- 1.2 x 1.1 x 0.2 cm, base 100% slough, with moderate epithelialization.) Results Laboratory Tests 09/18/19 20:18: Glucometer 240H 09/19/19 05:48: Glucometer 100 09/19/19 06:34: White Blood Count 7.1, Red Blood Count 3.27L, Hemoglobin 10.2L, Hematocrit 31L, Mean Corpuscular Volume 93, Mean Corpuscular Hemoglobin 31, Mean Corpuscular Hemoglobin Concent 33, Red Cell Distribution Width 12.7, Platelet Count 178, Mean Platelet Volume 11.2H, Neutrophils (%) (Auto) 52, Lymphocytes (%) (Auto) 33, Monocytes (%) (Auto) 11, Eosinophils (%) (Auto) 4, Basophils (%) (Auto) 0, Neutrophils # (Auto) 3.7, Lymphocytes # (Auto) 2.3, Monocytes # (Auto) 0.8, Eosinophils # (Auto) 0.3, Basophils # (Auto) 0.0, Sodium Level 137, Potassium Level 3.9, Chloride Level 106, Carbon Dioxide Level 24, Anion Gap 7, Blood Urea Nitrogen 16, Creatinine 1.08, Estimat Glomerular Filtration Rate > 60, BUN/Creatinine Ratio 15, Glucose Level 95, Calcium Level 8.8, Corrected Calcium 9.8, Total Bilirubin 0.6, Aspartate Amino Transf (AST/SGOT) 17, Alanine Aminotransferase (ALT/SGPT) 16, Alkaline Phosphatase 118, Total Protein 5.3L, Albumin 2.7L 09/19/19 11:06: Glucometer 215H 09/19/19 15:40: Glucometer 216H VICKIE STAPLETON MD Sep 19, 2019 19:34 POS
[2019-09-19 20:50] VITALS: BP 150/80
[2019-09-19] MEDS: cefTRIAXone FOR IV USE 1,000 MG in WATER (STERILE) FOR INJECTION 10 ML IV SCH (20:53)
[2019-09-19] MEDS: meTOprolol TARTRATE 25 MG (LOPRESSOR) TABLET PO SCH (20:55)
--- NOTE | 2019-09-19 20:55 | NUR ---
pt took Colace & Enulose but not miralax & Senokot, fsbs 304 given novolog 7 units, v/s 60-18-95%-150/80, fluids encouraged,side rails up x4, bed alarm on.
[2019-09-19] MEDS: ASPIRIN E.C. 81 MG (ECOTRIN) TAB PO SCH (20:56)
--- NOTE | 2019-09-19 21:06 | Individualized Plan of Care ---
Individualized Plan of Care Rehab Nursing IPOC Order Admission Date Sep 17, 2019 at 09:00 Current Orders Orders Admission Order(Inpt,Obs,Sdc) (09/17/19 07:49) Vital Signs: Per Unit Policy ( 08,16,00 (09/17/19 07:49) Junior Huff 09,21 (09/17/19 07:49) Sequential Compression Device Q4H (09/17/19 07:49) De Alcoholizer-Inpt Rehab Con (09/17/19 07:49) Rehab Nursing Orders-Ipoc (09/17/19 07:49) Physical Therapy Rehab Orders (09/17/19 07:49) Occupational Therapy Rehab Ord (09/17/19 07:49) Speech Therapy Rehab Orders (09/17/19 07:49) Cbc With Automated Diff (09/18/19 06:00) Comprehensive Metabolic Panel (09/18/19 06:00) General/Regular (09/17/19 Lunch) Intake & Output 06,14,22 (09/17/19 07:49) Precautions (Aru) (09/17/19 07:49) Weekly Weight WEEK (09/17/19 07:49) Rehab-Intensity Of Therapy (09/17/19 07:49) Initiate Admission Nursing Pro .admission (09/17/19 07:49) Acetaminophen Tablet (Tylenol Tablet) (09/17/19 08:00) Alprazolam Tablet (Xanax Tablet) (09/17/19 08:00) Calcium Carbonate Chew Tablet (Antacid C (09/17/19 08:00) Diphenhydramine Tablet (Benadryl Tablet) (09/17/19 08:00) Docusate Sodium Capsule (Colace Capsule) (09/17/19 09:00) Docusate Sodium Capsule (Colace Capsule) (09/17/19 08:00) Bisacodyl Suppository (Dulcolax Supposit (09/17/19 08:00) Lactulose Oral Solution (Enulose Oral So (09/17/19 08:00) Na Phos/Na Biphos Enema (Fleet Enema Sage (09/17/19 08:00) Guaifenesin/Codeine Syrup (Robitussin Ac (09/17/19 08:00) Hydrocodone/Apap 5/325 Tablet (Lortab 5 (09/17/19 08:00) Loperamide Tablet (Imodium Tablet) (09/17/19 08:00) Melatonin Tablet (Melatonin Tablet) (09/17/19 08:00) Polyethylene Glycol Powder Pkt (Miralax (09/17/19 09:00) Ondansetron Oral Dissolve Tab (Zofran (09/17/19 08:00) Senna S Tablet (Senokot S Tablet) (09/17/19 09:00) Initiate Admission Nursing Pro .admission (09/17/19 07:49) Patient Visit (09/17/19 ) Pt Eval Moderate Complexity (09/17/19 ) Code/Resuscitation (09/17/19 11:57) Accucheck Achs ACHS (09/17/19 11:57) Bladder Scan-Straight Cath-Pos (09/17/19 11:57) Dressing Order (Intervention) DAILY (09/17/19 11:57) Straight Cath (Urinary) (09/17/19 11:57) Acetaminophen Tablet (Tylenol Tablet) (09/17/19 12:00) Amiodarone Tablet (Cordarone Tablet) (09/18/19 09:00) Aspirin Enteric Coated Tablet (Ecotrin T (09/17/19 21:00) Atorvastatin Tablet (Lipitor) (09/17/19 21:00) Carbidopa/Levodopa Cr Tablet (Sinemet Cr (09/18/19 08:00) Clopidogrel Tablet (Plavix Tablet) (09/18/19 09:00) Gabapentin Capsule/Tablet (Neurontin Cap (09/17/19 21:00) Magnesium Hydroxide Oral Susp (Mom Oral (09/17/19 12:00) Pantoprazole Tablet (Protonix Tablet) (09/18/19 09:00) Rivaroxaban Tablet (Xarelto Tablet) (09/17/19 17:00) Tamsulosin Capsule (Flomax Capsule) (09/17/19 17:30) Amlodipine Tablet (Norvasc Tablet) (09/17/19 12:00) Ceftriaxone For Iv Use (Rocephin For I (09/17/19 21:00) Insulin Aspart (Novolog) (Novolog (Charg (09/17/19 16:00) Metoprolol Tartrate (Ir) Tab (Lopressor (09/17/19 21:00) Consult Cardiology (09/17/19 11:57) Consult Urology (09/17/19 11:57) Consult Wound Care Physician (09/17/19 11:57) Cho 60g/M 1snack (16-2000 Sigifredo) (09/17/19 Lunch) Lidocaine 2% (Urojet) (Xylocaine Urojet) (09/17/19 20:30) Lidocaine 2% (Urojet) (Xylocaine Urojet) (09/17/19 20:20) Sodium Chloride Flush (Catheter Flush Sy (09/17/19 22:00) Lactulose Oral Solution (Enulose Oral So (09/18/19 11:45) Cbc With Automated Diff (09/19/19 06:00) Comprehensive Metabolic Panel (09/19/19 06:00) Tamsulosin Capsule (Flomax Capsule) (09/19/19 09:00) Catheter(Urinary) Insert & Ass 03,15 (09/18/19 12:00) Us Left Low Ext Arterial [id number] (09/19/19 08:00) Carbidopa/Levodopa Cr Tablet (Sinemet Cr (09/19/19 13:00) Patient Visit (09/19/19 ) Speech Sound Lang Comp (09/19/19 ) Patient Visit (09/19/19 ) Gait Training, Ea 15 Min (09/19/19 ) Exercise Therap, Ea 15 Min (09/19/19 ) Functional Activities, Ea 15 (09/19/19 ) Ensure High Protein (09/19/19 Dinner) Patient Visit (09/19/19 ) Exercise Therap, Ea 15 Min (09/19/19 ) Gait Training, Ea 15 Min (09/19/19 ) Rehab Nursing Orders: Ongoing Assess. of Cognitive Status, Ongoing Assess. of Function Status, Bladder Management, Bladder Scan, Bladder Training, Bowel Management, Bowel Training, Disease Management & Educaiton, DVT Prophylaxis, Fall Prevention, Fluid/Electrolyte/Nutrition Mgmt, Infection Prevention, Medication Management & Education, Management of Risks & Complications, Management of Skin Intergrity, Nutrition Management, Pain Management, Patient/Family Support, Safety Management Intensity of Therapy to be met Patient to be seen: Min.3h per day/5 of 7d PT IPOC Problem List: Activity Tolerance, Functional Strength, Safety, Balance, Gait, Transfer, Bed Mobility Treatment Plan: Continue Plan of Care Education, Functional Activity Navya, Functional Strength, Group Therapy, Gait, Safety, Therapeutic Exercise, Transfers Treatment Duration: Oct 08, 2019 Frequency: At least 5 of 7 days/Wk (IRF) Estimated Hrs Per Day: 1.5 hours per day OT IPOC Problems: Decreased Safety Aware, Decreased UE Strength, Dependent Transfers, Impaired Cognition, Impaired Self-Care Skills OT Treatment, Training and Edu: Yes OT Problems Pt would benefit from skilled OT to increase his independence with basic self care to allow him to safely return home and decrease risk of falling. Plan of Care: ADL Retraining, Functional Mobility, Group Exercise/Act as Ind (education, exercise, activity tolerance, functional mobility, socialization, memory), UE Funct Exercise/Act, UE Neuromus Re-Ed/Coord Treatment Duration: Oct 04, 2019 Frequency: At least 5 of 7 days/Wk (IRF) Estimated Hrs Per Day: 1.5 hours per day (1.25 to 1.5) ST IPOC Speech Therapy Treatment Plan: Continue Plan of Care Treatment Duration: Sep 30, 2019 Frequency: 5 times per week Estimated Hrs Per Day: .5 hour per day De Alcoholizer/Case Mgmt De Alcoholizer/Case Managemen: Discharge Planning Dietitian/Water Restoration Technician Dietitian/Water Restoration Technician to monitor nutritional status and make changes and/or recommendations as needed and work with speech pathology on dietary upgrades as the occur. Physician IPOC Medical Issues being managed closely and that require the 24 hour availability of a physician: Severe PD will place patient at a major fall risk and urinary retention with palmer and bowel issues place patient at risk for complex complications Medical Issues: Bowel/Bladder Function, DVT Prophylaxis, Fluid/Electrolyte/Nutrition Balance, Infection Protection, Pain Management, Swallowing Precautions, Wound Care Brief Synthesis of Preadmission Screen, Post-Admission Evaluation, and Therapy Evaluations: PT will focus on safe ambulation to prevent falls OT will focus on regaining ADL's ST will focus on cognition Medical Prognosis: Good Anticipated Length of Stay: 7 days JULIA GILLESPIE DO Sep 19, 2019 21:06 POS
[2019-09-20] VITALS (8 sets, daily range): BP systolic 79–134; BP diastolic 50–75
[2019-09-20] MEDS: MELATONIN 3 MG TABLET PO PRN ×2 (01:43→21:31)
[2019-09-20] MEDS: inSUlin ASPART (NovoLOG) 1 UNIT/0.01 ML (CHARGE PER UNIT) SC SCH ×4 (06:00→21:40)
[2019-09-20] MEDS: CATHETER FLUSH 10 ML SYR IV SCH ×3 (06:00→21:29)
--- NOTE | 2019-09-20 07:29 | NUR ---
bedside report given to SARAH ROSSI
--- NOTE | 2019-09-20 08:33 | Cardiology Progress Note ---
Subjective Date Seen by Provider: Sep 20, 2019 Time Seen by Provider: 08:31 Subjective/Events-last exam Patient in bed, denies any chest pain, dyspnea or leg pain Objective-Cardiology Exam Last Set of Vital Signs Vital Signs 09/20/19 09/20/19 09/20/19 06:01 09:00 10:07 Temp 36.2 Pulse 67 Resp 18 B/P (MAP) 79/50 (60) Pulse Ox 97 O2 Delivery Room Air Capillary Refill : I&O Intake and Output 09/20/19 00:00 Intake Total 900 ml Output Total 950 ml Balance -50 ml Intake Oral 900 ml Output Urine Total 950 ml # Bowel Movements 1 General: Alert, Cooperative, Other (confused) HEENT: Atraumatic, PERRLA Neck: Supple, No JVD, No Thyromegaly Lungs: Clear to Auscultation, Normal Air Movement Heart: Regular Rate, Normal S1, Normal S2, No Murmurs Abdomen: Normal Bowel Sounds, Soft, No Tenderness, No Hepatosplenomegaly, No Masses Extremities: No Clubbing, No Cyanosis, No Edema, No Tenderness/Swelling, Other (diminished pulse LLE, L groin bruit) Skin: No Rashes, No Breakdown, No Significant Lesion Neuro: Normal Gait, Normal Speech, Strength at 5/5 X4 Ext, Normal Tone, Sensation Intact Psych/Mental Status: Mental Status NL, Mood NL A/P-Cardiology Admission Diagnosis Parkinson disease Peripheral arterial disease Coronary artery disease Hypertension Assessment/Plan Change in mental status, generalized weakness and loss of energy, Parkinson disease, multiple falls, currently in rehabilitation receiving physical and occupational therapy. 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 Severe Peripheral vascular disease, had nonhealing wound right lower extremity, underwent peripheral angiogram on August 17, 2019 revealing total occlusion of right SFA, successful angioplasty then deployment of 2 Supera stent [id number] and [id number] with excellent results and flow. Severe disease at the distal posterior tibial artery proximal anterior tibial artery. Heavily calcified left SFA with multiple segments of moderate to severe disease with occluded anterior tibial artery. Patient is maintained on Plavix and aspirin. Wound to right lower extremity is healing. Patient has known severe disease on the left side, we will continue with conservative management unless patient becomes symptomatic due to his comorbidities. Currently not having any symptoms, does not have any ulceration to left lower extremity. Continue to monitor Sick sinus syndrome, history of episodes of bradycardia with complete heart block, frequent PVCs, ventricular bigeminy and ventricular couplets, short PAT's. Status post permanent pacemaker implantation April 2015, using a M [employer] device Advisa DR GONZALEZ, last interrogation was done in June 2019 showing good sensing and capture activity, longevity for the battery is 4 years, no arrhythmia was detected. Continue to monitor Nonsustained ventricular tachycardia, has been maintained on amiodarone 200 mg daily. No recent arrhythmia on pacemaker interrogation, continue to monitor. Paroxysmal atrial fibrillation, maintained on Amiodarone, continue to monitor. [id number] score of 6, high risk, yearly risk of stroke without OAC is 9.8%. Maintained on Xarelto, continue to monitor Coronary artery disease, multiple interventions in the past, most recent cardiac catheterization done March 14, 2015 revealed extensive coronary artery disease, heavily calcified system, with 40 percent distal left main coronary artery stenosis. 3 stents in LAD proximally with 50-60 percent in-stent restenosis. Distal LAD had 95 percent stenosis followed by 80 percent stenosis long segment, very small artery not amendable to intervention. Total occlusion of the first obtuse marginal branch filled by collaterals. Patent stent in the proximal mid second OM branch with moderate disease in the distal proper circumflex artery. Patent stent in the RCA with 50 percent proximal right coronary artery stenosis and 50-60 distal right coronary artery stenosis. Asymptomatic, continue to monitor Stress test in July 2016 showed fixed defect involving the whole inferior wall and inferoapical segment with dilated left ventricle, inferior wall hypokinesia, Ejection fraction 54 percent. Echocardiogram showed ejection fraction 60 percent, dilated left atrium, mild to moderate mitral regurgitation and pulmonary artery pressure of 35 mmHg. continue to monitor, Hypertension, has history of orthostatic hypotension, monitor blood pressure Hyperlipidemia, maintained on Crestor, continue to monitor lipids. History of CVA in 2010, mild residual right sided weakness, episodes of confusion occurred over the last year where patient became confused and drove over once to [place] and once to [place]. It was felt that it was a global ischemic attack with confusion, workup at that time was negative. He was seen by Dr. Jiménez and started on Dilantin, the dose was increased by Dr. Damon, followed and managed by primary care physician Congestive heart failure, EF 45-50 percent, as well as diastolic dysfunction per most recent 2-D echocardiogram done 2018, continue with current medication Diabetes mellitus, followed and managed by primary care physician Carotid stenosis, monitored by Dr. Simmons's office Dementia, managed by primary care physician. Ex-Tobaccoism, patient smokes pipe, he stopped smoking in October, encouraged to continue with smoking cessation Peripheral neuropathy, maintained on gabapentin. Continue on current medication, continue to monitor Sleep apnea, severe on sleep study in October 2015, does not use his machine. Clinical Quality Measures DVT/VTE Risk/Contraindication: Risk Factor Score Per Nursin RFS Level Per Nursing on Admit: 4+=Very High JOSELUIS CLINTON Sep 20, 2019 08:32 POS
[2019-09-20] MEDS: SINEMET CR 50/200 (CARBIDOPA/LEVODOPA SA) TAB PO SCH ×3 (08:40→21:31)
[2019-09-20] MEDS: DOCUSATE SODIUM 100 MG (COLACE) CAP PO SCH ×2 (08:40→21:30)
[2019-09-20] MEDS: PANTOPRAZOLE 40 MG (PROTONIX) TAB PO SCH (08:40)
[2019-09-20] MEDS: SENNA W/DOCUSATE (SENOKOT S) TABLET PO SCH ×2 (08:40→21:30)
[2019-09-20] MEDS: GABAPENTIN 300 MG (NEURONTIN) CAP PO SCH ×2 (08:40→21:30)
[2019-09-20] MEDS: TAMSULOSIN 0.4 MG (FLOMAX) CAP PO SCH ×2 (08:40→21:31)
[2019-09-20] MEDS: AMIODARONE 200 MG (CORDARONE) TAB PO SCH (08:40)
[2019-09-20] MEDS: CLOPIDOGREL 75 MG (PLAVIX) TABLET PO SCH (08:40)
[2019-09-20] MEDS: LACTULOSE SYRUP 10GM/15ML (ENULOSE) 30ML UDC PO SCH ×2 (08:41→21:32)
[2019-09-20] MEDS: POLYETHYLENE GLYCOL 17 GM (MIRALAX) PACK PO SCH ×2 (08:41→21:32)
--- NOTE | 2019-09-20 08:55 | Progress Note ---
Subjective Time Seen by a Provider: 08:53 Subjective/Events-last exam He should not orthostatic hypotension he other day. Patient states he is improving. According to the nurse patient is improving. Patient has a pseudoaneurysm of the femoral artery on the left. Diabetes Objective Exam Vital Signs Date Time Temp Pulse Resp B/P (MAP) Pulse Ox O2 Delivery O2 Flow Rate FiO2 09/20/19 08:39 60 122/60 (80) 09/20/19 06:01 36.2 63 18 134/73 (93) 97 Room Air 09/19/19 21:00 Room Air 09/19/19 20:50 60 18 150/80 (103) 95 Room Air 09/19/19 18:56 64 118/73 (88) 09/19/19 16:00 35.8 66 16 90/57 (68) 92 Room Air I & O 09/20/19 07:00 Intake Total 1100 ml Output Total 600 ml Balance 500 ml Capillary Refill : General Appearance: No Apparent Distress, WD/WN HEENT: Normal ENT Inspection Neck: Full Range of Motion, Normal Inspection Respiratory: No Accessory Muscle Use, No Respiratory Distress Cardiovascular: Regular Rate, Rhythm, No Murmur Gastrointestinal: non tender, soft Results Lab Laboratory Tests 09/19/19 11:06: Glucometer 215H 09/19/19 15:40: Glucometer 216H 09/19/19 20:13: Glucometer 304H 09/20/19 05:44: Glucometer 150H Assessment/Plan Assessment/Plan Assess & Plan/Chief Complaint Parkinson disease. Hypoglycemia. Hypertension. Weakness. Debility. Dementia.. . 09/20/19. Parkinson disease. Hypoglycemia. Hypertension. Weakness. Debility. Dementia. Pseudoaneurysm of left femoral artery Clinical Quality Measures DVT/VTE Risk/Contraindication: Risk Factor Score Per Nursin RFS Level Per Nursing on Admit: 4+=Very High DENIZ KENT DO Sep 20, 2019 08:55 POS
--- NOTE | 2019-09-20 09:00 | Progress Note - Urology ---
Progress Note-Urology Progress Notes/Assess & Plan Progress/Assessment & Plan TOLERATES FLOMAX BID Final Diagnosis URINE RETENTION EVERTON GARCIA MD Sep 20, 2019 09:00 POS
--- NOTE | 2019-09-20 09:59 | PM&R Progress Note ---
Subjective HPI/CC On Admission Date Seen by Provider: Sep 20, 2019 Time Seen by Provider: 08:30 Subjective/Events-last exam Ultrasound did give evidence of pseudoaneurysm likely due to the angiogram done last month. Dr. Karimi will repeat the ultrasound in two weeks. Orthostatic hypotension precludes aggressive PT. Already had a BM. Dr. Villanueva and I discussed this case, he will remain with a palmer catheter in, increasing Flomax, will try to get the catheter out and see if he can void on his own. IR may inject a Thrombin injection depending on what they think would be the most helpful for the pseudoaneurysm. Dr. Villanueva ordered Urecholine. Check meds and labs Reviewed therapy notes Conferred with staffing manager of Systems General: Fatigue Genitourinary: Retention Neurological: Confusion Objective Exam Vital Signs Vital Signs Date Time Temp Pulse Resp B/P (MAP) Pulse Ox O2 Delivery O2 Flow Rate FiO2 09/20/19 15:53 36.4 59 14 117/74 (88) 95 Room Air Capillary Refill : General Appearance: No Apparent Distress, WD/WN, Chronically ill HEENT: PERRL/EOMI, Normal ENT Inspection, Pharynx Normal Neck: Full Range of Motion, Normal Inspection, Non Tender Respiratory: Chest Non Tender, Lungs Clear, Normal Breath Sounds, No Accessory Muscle Use, No Respiratory Distress Cardiovascular: Regular Rate, Rhythm, No Edema, No Gallop, No Murmur Gastrointestinal: Normal Bowel Sounds, No Organomegaly, No Pulsatile Mass, Non Tender, Soft Back: Normal Inspection, No CVA Tenderness, No Vertebral Tenderness Extremity: Normal Capillary Refill, Normal Inspection, Normal Range of Motion, Non Tender, No Calf Tenderness, No Pedal Edema Neurologic/Psychiatric: Alert, Oriented x3, No Motor/Sensory Deficits (weakness 4/5 legs, falls risk), Normal 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 FIM Transfers Therapy Code Descriptions/Definitions Functional Edmunds Measure: 0=Not Assessed/NA 4=Minimal Assistance 1=Total Assistance 5=Supervision or Setup 2=Maximal Assistance 6=Modified Edmunds 3=Moderate Assistance 7=Complete IndependenceSCALE: Activities may be completed with or without assistive devices. 0-Caqtpcvceu-ocrvqrt completes the activity by him/herself with no assistance from a helper. 5-Set-up or Clean-up Assistance-helper sets up or cleans up; patient completes activity. Xenia assists only prior to or following the activity. 4-Supervision or Touching Assistance-helper provides verbal cues and/or touching/steadying and/or contact guard assistance as patient completes activity. Assistance may be provided throughout the activity or intermittently. 3-Partial/Moderate Assistance-helper does LESS THAN HALF the effort. Xenia lifts, holds or supports trunk or limbs, but provides less than half the effort. 2-Substantial/Maximal Assistance-helper does MORE THAN HALF the effort. Xenia lifts or holds trunk or limbs and provides more than half the effort. 8-Ljampxhkw-qeuqvq does ALL the effort. Patient does none of the effort to complete the activity. Or, the assistance of 2 or more helpers is required for the patient to complete the activity. If activity was not attempted, code reason: 7-Patient Refused. 9-Not Applicable-not attempted and the patient did not perform the activity before the current illness, exacerbation or injury. 10-Not Attempted due to Environmental Limitations-(lack of equipment, weather restraints, etc.). 88-Not Attempted due to Medical Conditions or Safety Concerns. Roll Left to Right (QC): 4 Sit to Lying (QC): 4 Sit to Stand (QC): 4 (skilled verb inst for hand placement and safety) Chair/Bun-hm-Llbkw Xfer(QC): 4 (CGA) Car Transfer (QC): 4 Gait Training Does the Patient Walk?: Yes Distance: 328 Walk 10 feet (QC): 4 Walk 50 ft with 2 Turns(QC): 4 Walk 150 ft (QC): 4 Walking 10ft/uneven surface-QC: 4 Gait Persons Needed: 1 Gait Assistive Device: FWW Wheelchair Training Does the Pt Use a Wheelchair?: No Wheel 50 ft with 2 turns (QC): 9 Wheel 150 ft (QC): 9 Type of Wheelchair: Manual Stair Training #of Steps: 1 1 Step (curb) (QC): 4 4 Steps (QC): 88 12 Steps (QC): 88 Balance Picking up an Object (QC): 4 ADL-Treatment Eating (QC): 4 (supervision, initiation cues) Oral Hygiene (QC): 4 (Supervision, initiation cues) Shower/Bathe Self (QC): 4 (Initiation cues, supervision for balance, CGA when standing to wash roderick and bottom. Close supervision to wash feet and skilled cues.) Upper Body Dressing (QC): 4 (Supervision, initiation cues) Lower Body Dressing (QC): 3 (Help to get pants off/on over feet. CGA when standing to pull pants up/down. FWW) On/Off Footwear (QC): 3 (Help to put socks on but able to take them off with initiation cues) Toileting Hygiene (QC): 3 (Supervision, help to wipe (ineffective). CGA to manage clothing. Cues for hand placement, FWW) Toilet Transfer (QC): 4 (CGA, supervision, cues for hand placement) Assessment/Plan Assessment and Plan Assess & Plan/Chief Complaint Assessment: Parkinson's disease Falls Abrasion on back AF PVD CAD Urinary retention Chronic constipation Dementia Left pseudoaneurysm from peripheral procedure 1 month ago Plan: IRF protocol BM regimen Palmer cath per Dr Villanueva Pseudoaneurysm management not critical (1) Parkinsons disease (2) Dementia (3) Orthostasis (4) Labile hypertension (5) Falls frequently (6) Urinary retention (7) Constipation (8) DM (9) Obstructive sleep apnea of adult Status: Acute (10) PAD (peripheral artery disease) Status: Acute JULIA GILLESPIE DO Sep 20, 2019 09:59 POS
--- NOTE | 2019-09-20 10:22 | Occupational Ther Daily Note ---
OT Current Status-Daily Note Subjective Pt seen in bed sleeping, wakes upon entry. Pt oriented to person/ place. Pt agreeable to OT tx session with no c/o pain. Mental Status/Objective Patient Orientation: Person, Place Attachments: Patel Catheter ADL-Treatment Therapy Code Descriptions/Definitions Functional [place] Measure: 0=Not Assessed/NA 4=Minimal Assistance 1=Total Assistance 5=Supervision or Setup 2=Maximal Assistance 6=Modified [place] 3=Moderate Assistance 7=Complete IndependenceSCALE: Activities may be completed with or without assistive devices. 8-Yodwtqdxwu-fxfhhhl completes the activity by him/herself with no assistance from a helper. 5-Set-up or Clean-up Assistance-helper sets up or cleans up; patient completes activity. [place] assists only prior to or following the activity. 4-Supervision or Touching Assistance-helper provides verbal cues and/or touching/steadying and/or contact guard assistance as patient completes activity. Assistance may be provided throughout the activity or intermittently. 3-Partial/Moderate Assistance-helper does LESS THAN HALF the effort. [place] lifts, holds or supports trunk or limbs, but provides less than half the effort. 2-Substantial/Maximal Assistance-helper does MORE THAN HALF the effort. [place] lifts or holds trunk or limbs and provides more than half the effort. 9-Xcxdvpjju-fdbqex does ALL the effort. Patient does none of the effort to complete the activity. Or, the assistance of 2 or more helpers is required for the patient to complete the activity. If activity was not attempted, code reason: 7-Patient Refused. 9-Not Applicable-not attempted and the patient did not perform the activity before the current illness, exacerbation or injury. 10-Not Attempted due to Environmental Limitations-(lack of equipment, weather restraints, etc.). 88-Not Attempted due to Medical Conditions or Safety Concerns. Oral Hygiene (QC): 7 Shower/Bathe Self (QC): 4 (Pt completes sponge bath EOB, completes with assist of back and steadying assist/ SBA in sit, and CGA in stance during bottom hygiene. Pt requires cues for thoroughness. Pt expresses fatigue and returns to bed for ~3 minute rest prior to foot washing/ dressing.) Upper Body Dressing (QC): 5 (s/u) Lower Body Dressing (QC): 4 (Pt requires cues for threading feet through correct holes and threading catheter. CGA in stance to pull past hips.) Toileting Hygiene (QC): 4 (CGA and cues for thoroughness) on/ off footwear: 3 mod A, requires assist with RLE as pt leaning to L side and unable to maintain correct posture; takes break, still unable to complete RLE sock donning. Pt competes with SBA for LLE. Other Treatment Pt completes bed mob with SBA, sponge bath EOB with one rest break and return to bed. Pt sit to stand with cues for correct hand placement on bed/ rather than FWW. Pt completes orthostatic BP readings upon executive director of nursing entry: supine: 112/ 69; sit EOB: 79/50. Attempt of standing BP readings, pt states feels fine and denies lightheadedness; unable to complete BP reading. Pt returns to bed, completes UE theraband exercises with red theraband: 2 sets of 10 reps bilaterally of back flies, forward flexion, scaption, biceps, triceps; pt requires cues throughout for counting, correct tension and placement. Pt educated on completing throughout the day while in bed, pt agrees. Pt completes fine motor strengthening/ sequencing game with small clothes pin dominos while reclined in bed. Pt completes with max cues for sequencing and problem solving and decreased shoulder strength throughout with noticeable shoulder flexion depletion. Pt requires rest break, completes game and returns pins to tray. Pt left with call light in reach, all needs met, bed alarm on, rails up with pt stating "It doesn't matter" when asked. Education OT Patient Education: Correct positioning, Exercise program, Home exercise program, Modified ADL techniques, Purpose of tx/functional activities, Rehab process, Transfer techniques Teaching Recipient: Patient Teaching Methods: Demonstration, Discussion Response to Teaching: Verbalize Understanding, Return Demonstration, Reinforcement Needed OT Short Term Goals Short Term Goals Time Frame: Sep 26, 2019 Toileting hygiene: 4 (met) Lower body dressin (met) Putting on/taking off footwear: 4 OT Mcfp Goals Retail Sales Consultant Goals Time Frame: Oct 04, 2019 Eating (QC): 5 Oral Hygiene (QC): 5 Toileting Hygiene (QC): 5 Shower/Bathe Self (QC): 5 Upper Body Dressing (QC): 5 (met) Lower Body Dressing (QC): 5 On/Off Footwear (QC): 5 Additional Goals: 1-Demonstrate ADL Tasks, 2-Verbalize Understanding, 3-ImproveStrength/Navya 1=Demonstrate adherence to instructed precautions during ADL tasks. 2=Patient will verbalize/demonstrate understanding of assistive devices/modifications for ADL. 3=Patient will improve strength/tolerance for activity to enable patient to perf orm ADL's. OT Education/Plan Problem List/Assessment Assessment: Decreased Activ Tolerance, Decreased UE Strength, Impaired Cognition, Impaired Funct Balance, Impaired I ADL's, Impaired Self-Care Skills Pt would benefit from skilled OT to increase his independence with basic self care to allow him to safely return home and decrease risk of falling. Discharge Recommendations Plan/Recommendations: Continue POC Treatment Plan/Plan of Care Treatment,Training & Education: Yes Patient would benefit from OT for education, treatment and training to promote independence in ADL's, mobility, safety and/or upper extremity function for ADL's. Plan of Care: ADL Retraining, Functional Mobility, Group Exercise/Act as Ind (education, exercise, activity tolerance, functional mobility, socialization, memory), UE Funct Exercise/Act, UE Neuromus Re-Ed/Coord Treatment Duration: Oct 04, 2019 Frequency: At least 5 of 7 days/Wk (IRF) Estimated Hrs Per Day: 1.5 hours per day (1.25 to 1.5) Agreement: Yes Rehab Potential: Fair Time/GCodes Start Time: 09:00 Stop Time: 10:15 Total Time Billed (hr/min): 75 Billed Treatment Time 1, ADL 3 (45), EX 2 (30)= 75 TYRA ALEJO OTR Sep 20, 2019 10:22 POS
--- NOTE | 2019-09-20 11:18 | Progress Note ---
DENY GAITAN,MED STUDENT 09/20/19 1118: Progress Note Patient is feeling well today and has no new complaints or concerns. His appetite is good and he had a bowel movement yesterday. OT and PT are going well. Dr. Villanueva managing Patel catheter and increased his Flomax. His wounds on the sacrum, back, and R ankle are being followed by Dr. Quintanilla, who saw patient yesterday and recommended he lay on one side or the other. 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 Patient had a peripheral angiogram performed last month which revealed total occlusion of right SFA and a heavily calcified left SFA with multiple segments of moderate to severe disease with occluded anterior tibial artery. The right SFA was stented at that time and conservative management was maintained on the left due to comorbidities. Regarding the pseudoaneurysm, cardiology recommends continuing conservative management at this time and will discuss with IR Dr. Ugalde regarding possible thrombin injection. MARIA T ESCALANTE DO 09/20/19 2105: Supervisory-Addendum Brief Verification & Attestation Participated in pt care: history, MDM, physical Personally performed: exam, history, MDM, supervision of care Care discussed with: Medical Student Procedures: n/a Results interpretation: Verified all documentation Verification and Attestation of Medical Student E/M Service A medical student performed and documented this service in my presence. I reviewed and verified all information documented by the medical student and made modifications to such information, when appropriate. I personally performed the physical exam and medical decision making. Maria T Escalante, Sep 20, 2019,21:05 DENY GAITAN,MED STUDENT Sep 20, 2019 11:18 MARIA T ARZATE DO Sep 20, 2019 21:05 POS
--- NOTE | 2019-09-20 11:57 | Physical Therapy Daily Note ---
PT Daily Note-Current Subjective Patient in bed pre tx, agrees to PT, has no complaints of pain. Appearance Patient in bed post tx with nurse call, phone, tray, all needs met. Mental Status Patient Orientation: Person, Confused Attachments: Patel Catheter Transfers SCALE: Activities may be completed with or without assistive devices. 6-Alvrkfdiyh-axexioc completes the activity by him/herself with no assistance from a helper. 5-Set-up or Clean-up Assistance-helper sets up or cleans up; patient completes activity. [place] assists only prior to or following the activity. 4-Supervision or Touching Assistance-helper provides verbal cues and/or touching/steadying and/or contact guard assistance as patient completes activity. Assistance may be provided throughout the activity or intermittently. 3-Partial/Moderate Assistance-helper does LESS THAN HALF the effort. [place] lifts, holds or supports trunk or limbs, but provides less than half the effort. 2-Substantial/Maximal Assistance-helper does MORE THAN HALF the effort. [place] lifts or holds trunk or limbs and provides more than half the effort. 5-Vdmslrvpr-soishh does ALL the effort. Patient does none of the effort to complete the activity. Or, the assistance of 2 or more helpers is required for the patient to complete the activity. If activity was not attempted, code reason: 7-Patient Refused. 9-Not Applicable-not attempted and the patient did not perform the activity before the current illness, exacerbation or injury. 10-Not Attempted due to Environmental Limitations-(lack of equipment, weather restraints, etc.). 88-Not Attempted due to Medical Conditions or Safety Concerns. Roll Left & Right (QC): 3 Sit to Lying (QC): 3 Lying to Sitting/Side of Bed(Q: 3 Sit to Stand (QC): 3 Chair/Wcs-jm-Szzsv Xfer(QC): 3 MIn assist for bed mobility and transfers. Cues for hand placement and safety. Gait Training Distance: 200' Walk 10 feet (QC): 4 Walk 50 ft with 2 Turns(QC): 4 Walk 150 ft (QC): 4 Gait Assistive Device: FWW CGA, worse shuffling today, tends to keep walker too far out in front of him and lean too much on it, cues to correct Exercises Seated Therapy Exercises: Ankle pumps, Hip flexion Seated Reps: 15 Standing: Heel/toe raises, Mini squats Standing Reps: 15 LAQ alternating for 5 min NuStep Minutes: 15 NuStep Workload: 5 Treatments bed mobility and transfers, ambulation, LE strengthening Assessment Current Status: Poor Progress Patient more lethargic today. After the NuStep attempted to ambulate back to his room, he went a few steps and then started collapsing, therapist was able to keep him standing while other therapists get a chair under him, he did not fall. He was unresponsive for a short time, O2 was 97% and HR was around 68bpm but BP was 85/55. Patient put in wheelchair and taken back to his room, he became unresponsive again while being transported back to his room but came to after just a few seconds. Patient put back to bed. PT Short Term Goals Short Term Goals Time Frame: Sep 24, 2019 Roll Left & Right: 6 Sit to lyin Lying to sitting on side of be: 6 Sit to stand: 4 (SBA) Chair/ayp-vq-gkkem transfer: 4 (SBA) Walk 10 feet: 4 (SBA) Walk 50 feet with two turns: 4 (SBA) Walk 150 feet: 4 (SBA) PT Mcfp Goals Sorter Packer Goals PT Sorter Packer Goals Time Frame: Oct 08, 2019 Roll Left & Right (QC): 6 Sit to Lying (QC): 6 Lying-Sitting on Side/Bed(QC): 6 Sit to Stand (QC): 6 Chair/Voj-ls-Etvuu Xfer(QC): 6 Toilet Transfer (QC): 6 Car Transfer (QC): 6 Does the Patient Walk: Yes Walk 10 feet (QC): 6 Walk 50ft with 2 Turns (QC): 6 Walk 150 ft (QC): 6 Walking 10ft on Uneven Surface: 6 1 Step (curb) (QC): 4 4 Steps (QC): 4 12 Steps (QC): 88 Picking up an Object (QC): 6 Does the Pt use WC or Scooter?: No Type: N/A Type: N/A PT Plan Problem List Problem List: Activity Tolerance, Functional Strength, Safety, Balance, Gait, Transfer, Bed Mobility Treatment/Plan Treatment Plan: Continue Plan of Care Treatment Plan: Education, Functional Activity [place], Functional Strength, Grou p Therapy, Gait, Safety, Therapeutic Exercise, Transfers Treatment Duration: Oct 08, 2019 Frequency: At least 5 of 7 days/Wk (IRF) Estimated Hrs Per Day: 1.5 hours per day Patient and/or Family Agrees t: Yes Safety Risks/Education Patient Education: Gait Training, Transfer Techniques, Correct Positioning, Safety Issues Teaching Recipient: Patient Teaching Methods: Demonstration, Discussion Response to Teaching: Reinforcement Needed Time/GCodes Time In: 1100 Time Out: 1200 Total Billed Treatment Time: 60 Total Billed Treatment 1 visit EX 30' GT 10' FA 20' FABRICIO ALFONSO PT Sep 20, 2019 11:57 POS
[2019-09-20] MEDS: BETHANECHOL 25 MG (URECHOLINE) TAB PO SCH ×3 (12:06→21:31)
--- NOTE | 2019-09-20 14:46 | Physical Therapy Daily Note ---
PT Daily Note-Current Subjective Patient in bed pre tx, agrees to PT after waking, has no complaints of pain. Patient is very lethargic. PT attempts LE exercise with patient but he cannot do them without going to sleep. Performed LE PROM mostly. Appearance Patient in bed post tx with nurse call, phone, tray, bed alarm on. Mental Status Patient Orientation: Person, Confused Transfers SCALE: Activities may be completed with or without assistive devices. 0-Xlalsfctmm-wdwigaj completes the activity by him/herself with no assistance from a helper. 5-Set-up or Clean-up Assistance-helper sets up or cleans up; patient completes activity. [place] assists only prior to or following the activity. 4-Supervision or Touching Assistance-helper provides verbal cues and/or touching/steadying and/or contact guard assistance as patient completes activity. Assistance may be provided throughout the activity or intermittently. 3-Partial/Moderate Assistance-helper does LESS THAN HALF the effort. [place] lifts, holds or supports trunk or limbs, but provides less than half the effort. 2-Substantial/Maximal Assistance-helper does MORE THAN HALF the effort. [place] lifts or holds trunk or limbs and provides more than half the effort. 7-Anrivxnxi-miiqth does ALL the effort. Patient does none of the effort to complete the activity. Or, the assistance of 2 or more helpers is required for the patient to complete the activity. If activity was not attempted, code reason: 7-Patient Refused. 9-Not Applicable-not attempted and the patient did not perform the activity before the current illness, exacerbation or injury. 10-Not Attempted due to Environmental Limitations-(lack of equipment, weather restraints, etc.). 88-Not Attempted due to Medical Conditions or Safety Concerns. Exercises Supine Ex: Ankle pumps Supine Reps: 15 PROM BLE in all planes. Treatments PROM, ankle pumps Assessment Current Status: Poor Progress Patient too lethargic to participate in AROM. PT Short Term Goals Short Term Goals Time Frame: Sep 24, 2019 Roll Left & Right: 6 Sit to lyin Lying to sitting on side of be: 6 Sit to stand: 4 (SBA) Chair/ggu-pz-wiybu transfer: 4 (SBA) Walk 10 feet: 4 (SBA) Walk 50 feet with two turns: 4 (SBA) Walk 150 feet: 4 (SBA) PT Group Home Goals Group Home Goals PT Group Home Goals Time Frame: Oct 08, 2019 Roll Left & Right (QC): 6 Sit to Lying (QC): 6 Lying-Sitting on Side/Bed(QC): 6 Sit to Stand (QC): 6 Chair/Puj-ix-Wcdfd Xfer(QC): 6 Toilet Transfer (QC): 6 Car Transfer (QC): 6 Does the Patient Walk: Yes Walk 10 feet (QC): 6 Walk 50ft with 2 Turns (QC): 6 Walk 150 ft (QC): 6 Walking 10ft on Uneven Surface: 6 1 Step (curb) (QC): 4 4 Steps (QC): 4 12 Steps (QC): 88 Picking up an Object (QC): 6 Does the Pt use WC or Scooter?: No Type: N/A Type: N/A PT Plan Problem List Problem List: Activity Tolerance, Functional Strength, Safety, Balance, Gait, Transfer, Bed Mobility, ROM Treatment/Plan Treatment Plan: Continue Plan of Care Treatment Plan: Education, Functional Activity [place], Functional Strength, Group Therapy, Gait, Safety, Therapeutic Exercise, Transfers Treatment Duration: Oct 08, 2019 Frequency: At least 5 of 7 days/Wk (IRF) Estimated Hrs Per Day: 1.5 hours per day Patient and/or Family Agrees t: Yes Safety Risks/Education Patient Education: Correct Positioning, Safety Issues Teaching Recipient: Patient Teaching Methods: Demonstration, Discussion Response to Teaching: Reinforcement Needed Time/GCodes Time In: 1430 Time Out: 1445 Total Billed Treatment Time: 15 Total Billed Treatment 1 visit EX FABRICIO AMARAL PT Sep 20, 2019 14:46 POS
--- NOTE | 2019-09-20 14:52 | Speech Therapy Daily Note ---
Speech Daily Progress Note Subjective Date Seen by Provider: Sep 20, 2019 Time Seen by Provider: 00:30 Patient was resting in his bed. He required frequent verbal prompts to stay awake and participate. Objective Patient completed a series of safety awareness tasks using cards "What's wrong with this picture?" with 65% given 30% cues. Assessment Assessment Current Status: Good Progress Treatment Plan Continue Plan of Care Speech Short Term Goals Short Term Goals Short Term Goals 1) The patient will complete memory tasks related to her daily needs at 90% or greater with minimal cues. 2) The patient will complete safety awareness tasks related to her daily needs at 90% or greater with minimal cues. 3) The patient will complete problem solving tasks related to her daily needs at 90% or greater with minimal cues. Speech Senior Care Goals Programmer Analyst Consultant Goals The patient will improve cognitive-communication necessary for safety and daily living tasks with minimal assist. Speech-Plan Patient/Family Goals Patient/Family Goals: Patient plans on returning home with his family post rehab. Treatment Plan Speech Therapy Treatment Plan: Continue Plan of Care Patient has difficulty staying focused/awake for therapy participation. Treatment Duration: Sep 30, 2019 Frequency: 5 times per week Estimated Hrs Per Day: .5 hour per day Rehab Potential: Fair Barriers to Learning: Patient has moderate level of cognitive deficits. Pt/Family Agrees to Plan: Yes Safety Risks/Education Teaching Recipient: Patient Teaching Methods: Demonstration, Discussion Response to Teaching: Verbalize Understanding, Return Demonstration, Reinforcement Needed Education Topics Provided: Communication of his wants/needs Time Speech Therapy Time In: 13:30 Speech Therapy Time Out: 14:00 Total Billed Time: 30 Billed Treatment Time 1, PATRICK Cleaning Sep 20, 2019 14:52 POS
[2019-09-20] MEDS ORDERED: NS IV 500 ML 500 ML ONE (15:48)
[2019-09-20] MEDS ORDERED: NS IV 500 ML 500 ML IV ONE (16:00)
--- NOTE | 2019-09-20 16:01 | Cardiology Progress Note ---
Subjective Date Seen by Provider: Sep 20, 2019 Time Seen by Provider: 15:58 Subjective/Events-last exam Patient is laying down in bed, had orthostatic dizziness, no full syncope was reported, had hypotensive episode Review of Systems General: No Chills, No Night Sweats; Fatigue, Malaise; No Appetite, No Other HEENT: No Head Aches, No Visual Changes, No Eye Pain, No Ear Pain, No Dysphasia, No Sinus Congestion, No Post Nasal Drip, No Sore Throat, No Other Pulmonary: Dyspnea; No Cough, No Pleuritic Chest Pain, No Other Cardiovascular: No: Chest Pain, Palpitations, Orthopnea, Paroxysmal Noc. Dyspnea, Edema, Lt Headedness, Other Objective-Cardiology Exam Last Set of Vital Signs Vital Signs 09/20/19 15:53 Temp 36.4 Pulse 59 Resp 14 B/P (MAP) 117/74 (88) Pulse Ox 95 O2 Delivery Room Air Capillary Refill : I&O Intake and Output 09/20/19 00:00 Intake Total 900 ml Output Total 950 ml Balance -50 ml Intake Oral 900 ml Output Urine Total 950 ml # Bowel Movements 1 General: Alert, Cooperative, Other (confused) HEENT: Atraumatic, PERRLA Neck: Supple, No JVD, No Thyromegaly Lungs: Clear to Auscultation, Normal Air Movement Heart: Regular Rate, Normal S1, Normal S2, No Murmurs Abdomen: Normal Bowel Sounds, Soft, No Tenderness, No Hepatosplenomegaly, No Masses Extremities: No Clubbing, No Cyanosis, No Edema, No Tenderness/Swelling, Other (diminished pulse LLE, L groin bruit) Skin: No Rashes, No Breakdown, No Significant Lesion Neuro: Normal Gait, Normal Speech, Strength at 5/5 X4 Ext, Normal Tone, Sensation Intact Psych/Mental Status: Mental Status NL, Mood NL Results Lab Laboratory Tests Test 09/19/19 20:13 09/20/19 05:44 09/20/19 11:14 09/20/19 11:42 Range/Units Glucometer 304 H 150 H 229 H 215 H 70-110 MG/DL Test 09/20/19 15:26 Range/Units Glucometer 279 H 70-110 MG/DL A/P-Cardiology Admission Diagnosis Parkinson disease Peripheral arterial disease Coronary artery disease Hypertension Assessment/Plan Change in mental status, generalized weakness and loss of energy, Parkinson disease, multiple falls, orthostatic hypotension, maintained on metoprolol 25 mg twice a day, I'll give him a bolus of 500 mL of normal saline and monitor blood pressure Labile hypertension, has been on metoprolol 25 mg twice daily, Norvasc as needed for elevated blood pressure, last dose was given on September 18, 2019, I will stop the Norvasc and continue with metoprolol and monitor blood pressure Small Left groin pseudoaneurysm at left SOLE DYER, Continue with conservative management, plan to reevaluate US in 2 weeks. Severe Peripheral vascular disease, had nonhealing wound right lower extremity, underwent peripheral angiogram on August 17, 2019 revealing total occlusion of right SFA, successful angioplasty then deployment of 2 Supera stent 6150 and 6x100 with excellent results and flow. Severe disease at the distal posterior tibial artery proximal anterior tibial artery. Heavily calcified left SFA with multiple segments of moderate to severe disease with occluded anterior tibial artery. Patient is maintained on Plavix and aspirin. Wound to right lower extremity is healing. Patient has known severe disease on the left side, we will continue with conservative management unless patient becomes symptomatic due to his comorbidities. Currently not having any symptoms, does not have any ulceration to left lower extremity. Continue to monitor Sick sinus syndrome, history of episodes of bradycardia with complete heart block, frequent PVCs, ventricular bigeminy and ventricular couplets, short PAT's. Status post permanent pacemaker implantation April 2015, using a [employer] device Advisa DR GONZALEZ, last interrogation was done in June 2019 showing good sensing and capture activity, longevity for the battery is 4 years, no arrhythmia was detected. Continue to monitor Nonsustained ventricular tachycardia, has been maintained on amiodarone 200 mg daily. No recent arrhythmia on pacemaker interrogation, continue to monitor. Paroxysmal atrial fibrillation, maintained on Amiodarone, continue to monitor. [id number] score of 6, high risk, yearly risk of stroke without OAC is 9.8%. Maintained on Xarelto, continue to monitor Coronary artery disease, multiple interventions in the past, most recent cardiac catheterization done March 14, 2015 revealed extensive coronary artery disease, heavily calcified system, with 40 percent distal left main coronary artery stenosis. 3 stents in LAD proximally with 50-60 percent in-stent restenosis. Distal LAD had 95 percent stenosis followed by 80 percent stenosis long segment, very small artery not amendable to intervention. Total occlusion of the first obtuse marginal branch filled by collaterals. Patent stent in the proximal mid second OM branch with moderate disease in the distal proper circumflex artery. Patent stent in the RCA with 50 percent proximal right coronary artery stenosis and 50-60 distal right coronary artery stenosis. Asymptomatic, continue to monitor Stress test in July 2016 showed fixed defect involving the whole inferior wall and inferoapical segment with dilated left ventricle, inferior wall hy pokinesia, Ejection fraction 54 percent. Echocardiogram showed ejection fraction 60 percent, dilated left atrium, mild to moderate mitral regurgitation and pulmonary artery pressure of 35 mmHg. continue to monitor, Hyperlipidemia, maintained on Crestor, continue to monitor lipids. History of CVA in 2010, mild residual right sided weakness, episodes of confusion occurred over the last year where patient became confused and drove over once to [place] and once to [place]. It was felt that it was a global ischemic attack with confusion, workup at that time was negative. He was seen by Dr. Jiménez and started on Dilantin, the dose was increased by Dr. Damon, followed and managed by primary care physician Congestive heart failure, EF 45-50 percent, as well as diastolic dysfunction per most recent 2-D echocardiogram done 2018, continue with current medication Diabetes mellitus, followed and managed by primary care physician Carotid stenosis, monitored by Dr. Simmons's office Dementia, managed by primary care physician. Ex-Tobaccoism, patient smokes pipe, he stopped smoking in October, encouraged to continue with smoking cessation Peripheral neuropathy, maintained on gabapentin. Continue on current medication, continue to monitor Sleep apnea, severe on sleep study in October 2015, does not use his machine. Clinical Quality Measures DVT/VTE Risk/Contraindication: Risk Factor Score Per Nursin RFS Level Per Nursing on Admit: 4+=Very High SEBASTIÁN VALLE MD Sep 20, 2019 4:01 pm POS
--- NOTE | 2019-09-20 16:02 | NUR ---
Dr. Karimi to floor. Informed of orthostatic vitals from this AM- BP 112/69 (lying), 79/50 (sitting), and unable to obtain BP reading while standing. Also informed of near syncopal episode while working with therapy in the gym this afternoon. Therapy reports that patient did not fully lose consciousness. BP 85/55. Patient was assisted back to bed and BP was 118/63. Orders to give a 500 cc NS bolus and hold Lopressor tonight.
[2019-09-20] MEDS: RIVAROXABAN 20 MG TABLET (XARELTO) PO SCH (17:34)
--- NOTE | 2019-09-20 19:18 | NUR ---
bedside report received from SARAH ROSSI, assum care of pt
--- NOTE | 2019-09-20 21:28 | NUR ---
meds given without difficulty, fsbs 239 novolog 3 units given, v/s 62-18-96%-128/75
[2019-09-20] MEDS: cefTRIAXone FOR IV USE 1,000 MG in WATER (STERILE) FOR INJECTION 10 ML IV SCH (21:29)
[2019-09-20] MEDS: ASPIRIN E.C. 81 MG (ECOTRIN) TAB PO SCH (21:31)
[2019-09-21 05:51] VITALS: BP 145/74
[2019-09-21 05:54] LABS: HEMOGLOBIN 9.7 G/DL (13.3-17.7); MEAN PLATELET VOLUME 11.2 FL (7.4-10.4); RED CELL DISTRIBUTION WIDTH 12.8 % (10.0-14.5); WHITE BLOOD COUNT 7.9 10^3/uL (4.3-11.0)
[2019-09-21] MEDS: inSUlin ASPART (NovoLOG) 1 UNIT/0.01 ML (CHARGE PER UNIT) SC SCH ×4 (06:00→21:05)
[2019-09-21 06:12] LABS: ALANINE AMINOTRANSFERASE < 6 U/L (0-55); ALBUMIN 2.6 GM/DL (3.2-4.5); ALKALINE PHOSPHATASE 132 U/L (40-136); BILIRUBIN,TOTAL 0.6 MG/DL (0.1-1.0); BUN/CREATININE RATIO 19; CALCIUM 8.9 MG/DL (8.5-10.1); CARBON DIOXIDE 24 MMOL/L (21-32); CHLORIDE 105 MMOL/L (98-107); CREATININE SERUM 1.02 MG/DL (0.60-1.30); GFR ESTIMATED > 60; GLUCOSE 99 MG/DL (70-105); POTASSIUM 4.1 MMOL/L (3.6-5.0); SODIUM 137 MMOL/L (135-145); TOTAL PROTEIN 5.3 GM/DL (6.4-8.2)
[2019-09-21] MEDS: BETHANECHOL 25 MG (URECHOLINE) TAB PO SCH ×4 (06:44→21:02)
[2019-09-21] MEDS: CATHETER FLUSH 10 ML SYR IV SCH ×3 (06:44→21:06)
--- NOTE | 2019-09-21 07:32 | NUR ---
bedside report given to JANEY ROSSI
--- NOTE | 2019-09-21 07:45 | Progress Note ---
Subjective Time Seen by a Provider: 07:42 Subjective/Events-last exam Patient alert this morning. Patient has Parkinson's disease causing the orthostatic hypotension. Patient to have a Patel catheter removed today. Objective Exam Vital Signs Date Time Temp Pulse Resp B/P (MAP) Pulse Ox O2 Delivery O2 Flow Rate FiO2 09/21/19 05:51 36.4 62 20 145/74 (97) 97 Room Air 09/20/19 21:30 Room Air 09/20/19 21:25 62 18 128/75 (92) 96 Room Air 09/20/19 15:53 36.4 59 14 117/74 (88) 95 Room Air 09/20/19 13:16 60 118/63 (81) 09/20/19 10:07 67 79/50 (60) 09/20/19 10:03 64 112/69 (83) 09/20/19 09:00 Room Air 09/20/19 08:39 60 122/60 (80) I & O 09/21/19 07:00 Intake Total 1627 ml Output Total 1200 ml Balance 427 ml Capillary Refill : General Appearance: No Apparent Distress, WD/WN HEENT: Normal ENT Inspection Neck: Full Range of Motion, Normal Inspection Respiratory: No Accessory Muscle Use, No Respiratory Distress Cardiovascular: Regular Rate, Rhythm, No Murmur Gastrointestinal: non tender, soft Results Lab Laboratory Tests 09/21/19 05:20 Laboratory Tests 09/20/19 11:14: Glucometer 229H 09/20/19 11:42: Glucometer 215H 09/20/19 15:26: Glucometer 279H 09/20/19 20:18: Glucometer 239H 09/21/19 05:20: White Blood Count 7.9, Red Blood Count 3.13L, Hemoglobin 9.7L, Hematocrit 29L, Mean Corpuscular Volume 93, Mean Corpuscular Hemoglobin 31, Mean Corpuscular Hemoglobin Concent 33, Red Cell Distribution Width 12.8, Platelet Count 182, Mean Platelet Volume 11.2H, Sodium Level 137, Potassium Level 4.1, Chloride Level 105, Carbon Dioxide Level 24, Anion Gap 8, Blood Urea Nitrogen 19H, Creatinine 1.02, Estimat Glomerular Filtration Rate > 60, BUN/Creatinine Ratio 19, Glucose Level 99, Calcium Level 8.9, Corrected Calcium 10.0, Magnesium Level 2.0, Total Bilirubin 0.6, Aspartate Amino Transf (AST/SGOT) 18, Alanine Aminotransferase (ALT/SGPT) < 6, Alkaline Phosphatase 132, Total Protein 5.3L, Albumin 2.6L 09/21/19 05:22: Glucometer 110 Assessment/Plan Assessment/Plan Assess & Plan/Chief Complaint Parkinson disease. Hypoglycemia. Hypertension. Weakness. Debility. Dementia.. . 09/20/19. Parkinson disease. Hypoglycemia. Hypertension. Weakness. Debility. Dementia. Pseudoaneurysm of left femoral artery. . 09/21/19. Parkinson disease. Diabetes. Orthostatic hypertension. Hypertension. Weakness improving. Debility improving. Dementia. Pseudoaneurysm of the left femoral artery small Clinical Quality Measures DVT/VTE Risk/Contraindication: Risk Factor Score Per Nursin RFS Level Per Nursing on Admit: 4+=Very High DENIZ KENT DO Sep 21, 2019 07:45 POS
--- NOTE | 2019-09-21 08:39 | Cardiology Progress Note ---
Subjective Date Seen by Provider: Sep 21, 2019 Time Seen by Provider: 08:37 Subjective/Events-last exam Patient in bed, denies any further dizziness or lightheadedness. Objective-Cardiology Exam Last Set of Vital Signs Vital Signs 09/21/19 05:51 Temp 36.4 Pulse 62 Resp 20 B/P (MAP) 145/74 (97) Pulse Ox 97 O2 Delivery Room Air Capillary Refill : I&O Intake and Output 09/21/19 00:00 Intake Total 1977 ml Output Total 1150 ml Balance 827 ml Intake Oral 1457 ml IV Total 520 ml Output Urine Total 1150 ml General: Alert, Cooperative, Other (confused) HEENT: Atraumatic, PERRLA Neck: Supple, No JVD, No Thyromegaly Lungs: Clear to Auscultation, Normal Air Movement Heart: Regular Rate, Normal S1, Normal S2, No Murmurs Abdomen: Normal Bowel Sounds, Soft, No Tenderness, No Hepatosplenomegaly, No Masses Extremities: No Clubbing, No Cyanosis, No Edema, No Tenderness/Swelling, Other (diminished pulse LLE, L groin bruit) Skin: No Rashes, No Breakdown, No Significant Lesion Neuro: Normal Gait, Normal Speech, Strength at 5/5 X4 Ext, Normal Tone, Sensation Intact Psych/Mental Status: Mental Status NL, Mood NL Results Lab Laboratory Tests 09/21/19 05:20 A/P-Cardiology Admission Diagnosis Parkinson disease Peripheral arterial disease Coronary artery disease Hypertension Assessment/Plan Change in mental status, generalized weakness and loss of energy, Parkinson disease, multiple falls, appears back to baseline Labile hypertension, had episode of orthostatic hypotension yesterday. Received bolus of normal saline. Norvasc discontinued. Continue to monitor. 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 Severe Peripheral vascular disease, had nonhealing wound right lower extremity, underwent peripheral angiogram on August 17, 2019 revealing total occlusion of right SFA, successful angioplasty then deployment of 2 Supera stent 6150 and 6x100 with excellent results and flow. Severe disease at the distal posterior tibial artery proximal anterior tibial artery. Heavily calcified left SFA with multiple segments of moderate to severe disease with occluded anterior tibial artery. Patient is maintained on Plavix and aspirin. Wound to right lower extremity is healing. Patient has known severe disease on the left side, we denzel l continue with conservative management unless patient becomes symptomatic due to his comorbidities. Currently not having any symptoms, does not have any ulceration to left lower extremity. Continue to monitor Sick sinus syndrome, history of episodes of bradycardia with complete heart block, frequent PVCs, ventricular bigeminy and ventricular couplets, short PAT's. Status post permanent pacemaker implantation April 2015, using a [employer] device Advisa DR GONZALEZ, last interrogation was done in June 2019 showing good sensing and capture activity, longevity for the battery is 4 years, no arrhythmia was detected. Continue to monitor Nonsustained ventricular tachycardia, has been maintained on amiodarone 200 mg daily. No recent arrhythmia on pacemaker interrogation, continue to monitor. Paroxysmal atrial fibrillation, maintained on Amiodarone, continue to monitor. [id number] score of 6, high risk, yearly risk of stroke without OAC is 9.8%. Maintained on Xarelto, continue to monitor Coronary artery disease, multiple interventions in the past, most recent cardiac catheterization done March 14, 2015 revealed extensive coronary artery disease, heavily calcified system, with 40 percent distal left main coronary artery stenosis. 3 stents in LAD proximally with 50-60 percent in-stent restenosis. Distal LAD had 95 percent stenosis followed by 80 percent stenosis long segment, very small artery not amendable to intervention. Total occlusion of the first obtuse marginal branch filled by collaterals. Patent stent in the proximal mid second OM branch with moderate disease in the distal proper circumflex artery. Patent stent in the RCA with 50 percent proximal right coronary artery stenosis and 50-60 distal right coronary artery stenosis. Asymptomatic, continue to monitor Stress test in July 2016 showed fixed defect involving the whole inferior wall and inferoapical segment with dilated left ventricle, inferior wall hypokinesia, Ejection fraction 54 percent. Echocardiogram showed ejection fraction 60 percent, dilated left atrium, mild to moderate mitral regurgitation and pulmonary artery pressure of 35 mmHg. continue to monitor, Hyperlipidemia, maintained on Crestor, continue to monitor lipids. History of CVA in 2010, mild residual right sided weakness, episodes of confusion occurred over the last year where patient became confused and drove over once to [place] and once to [place]. It was felt that it was a global ischemic attack with confusion, workup at that time was negative. He was seen by Dr. Jiménez and started on Dilantin, the dose was increased by Dr. Damon, followed and managed by primary care physician Congestive heart failure, EF 45-50 percent, as well as diastolic dysfunction per most recent 2-D echocardiogram done 2018, continue with current medication Diabetes mellitus, followed and managed by primary care physician Carotid stenosis, monitored by Dr. Simmons's office Dementia, managed by primary care physician. Ex-Tobaccoism, patient smokes pipe, he stopped smoking in October, encouraged to continue with smoking cessation Peripheral neuropathy, maintained on gabapentin. Continue on current medication, continue to monitor Sleep apnea, severe on sleep study in October 2015, does not use his machine. Clinical Quality Measures DVT/VTE Risk/Contraindication: Risk Factor Score Per Nursin RFS Level Per Nursing on Admit: 4+=Very High JOSELUIS CLINTON Sep 21, 2019 08:39 POS
[2019-09-21] MEDS: POLYETHYLENE GLYCOL 17 GM (MIRALAX) PACK PO SCH ×2 (09:00→21:02)
[2019-09-21] MEDS: AMIODARONE 200 MG (CORDARONE) TAB PO SCH (09:00)
[2019-09-21] MEDS: LACTULOSE SYRUP 10GM/15ML (ENULOSE) 30ML UDC PO SCH ×2 (09:13→21:04)
[2019-09-21] MEDS: TAMSULOSIN 0.4 MG (FLOMAX) CAP PO SCH ×2 (09:14→21:03)
[2019-09-21] MEDS: PANTOPRAZOLE 40 MG (PROTONIX) TAB PO SCH (09:14)
[2019-09-21] MEDS: GABAPENTIN 300 MG (NEURONTIN) CAP PO SCH ×2 (09:14→21:03)
[2019-09-21] MEDS: CLOPIDOGREL 75 MG (PLAVIX) TABLET PO SCH (09:15)
[2019-09-21] MEDS: SINEMET CR 50/200 (CARBIDOPA/LEVODOPA SA) TAB PO SCH ×3 (09:15→21:02)
[2019-09-21] MEDS: DOCUSATE SODIUM 100 MG (COLACE) CAP PO SCH ×2 (09:15→21:02)
[2019-09-21] MEDS: SENNA W/DOCUSATE (SENOKOT S) TABLET PO SCH ×2 (09:15→21:02)
--- NOTE | 2019-09-21 09:16 | Progress Note - Urology ---
Progress Note-Urology Progress Notes/Assess & Plan Progress/Assessment & Plan TOV TODAY Final Diagnosis URINE RETENTION EVERTON GARCIA MD Sep 21, 2019 09:16 POS
--- NOTE | 2019-09-21 09:57 | PM&R Progress Note ---
Subjective HPI/CC On Admission Date Seen by Provider: Sep 21, 2019 Time Seen by Provider: 08:45 Subjective/Events-last exam Pt overall doing well Discontinued palmer an hour ago and will bladder scan him Holding Lopressor and Amiodarone due to hypotension Very poor recall and cognition overall Difficult to keep on task Questionable caregiver if works at Dr. Rosalse office during the day Denies any significant pain issues Check meds and labs Reviewed therapy notes Conferred with central office equipment installer of Systems General: Fatigue Neurological: Weakness, Confusion Objective Exam Vital Signs Vital Signs Date Time Temp Pulse Resp B/P (MAP) Pulse Ox O2 Delivery O2 Flow Rate FiO2 09/21/19 17:53 36.4 60 18 131/72 (91) 98 Room Air Capillary Refill : General Appearance: No Apparent Distress, WD/WN, Chronically ill HEENT: PERRL/EOMI, Normal ENT Inspection, Pharynx Normal Neck: Full Range of Motion, Normal Inspection, Non Tender, Supple Respiratory: Chest Non Tender, Lungs Clear, Normal Breath Sounds, No Accessory Muscle Use, No Respiratory Distress Cardiovascular: No Edema, No Gallop, No JVD, No Murmur, Irregularly Irregular Gastrointestinal: Normal Bowel Sounds, No Organomegaly, No Pulsatile Mass, Non Tender, Soft Back: Normal Inspection, No CVA Tenderness, No Vertebral Tenderness Extremity: Normal Capillary Refill, Normal Inspection, Normal Range of Motion, Non Tender, No Calf Tenderness, No Pedal Edema Neurologic/Psychiatric: Alert, Oriented x3, No Motor/Sensory Deficits (weakness 4/5 legs, falls risk), Normal 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 FIM Transfers Therapy Code Descriptions/Definitions Functional [place] Measure: 0=Not Assessed/NA 4=Minimal Assistance 1=Total Assistance 5=Supervision or Setup 2=Maximal Assistance 6=Modified [place] 3=Moderate Assistance 7=Complete IndependenceSCALE: Activities may be completed with or without assistive devices. 4-Kfcixzcovg-ryeixcl completes the activity by him/herself with no assistance from a helper. 5-Set-up or Clean-up Assistance-helper sets up or cleans up; patient completes activity. [place] assists only prior to or following the activity. 4-Supervision or Touching Assistance-helper provides verbal cues and/or touching/steadying and/or contact guard assistance as patient completes activity. Assistance may be provided throughout the activity or intermittently. 3-Partial/Moderate Assistance-helper does LESS THAN HALF the effort. [place] lifts, holds or supports trunk or limbs, but provides less than half the effort. 2-Substantial/Maximal Assistance-helper does MORE THAN HALF the effort. [place] lifts or holds trunk or limbs and provides more than half the effort. 2-Frbzcwxzi-ocipsq does ALL the effort. Patient does none of the effort to complete the activity. Or, the assistance of 2 or more helpers is required for the patient to complete the activity. If activity was not attempted, code reason: 7-Patient Refused. 9-Not Applicable-not attempted and the patient did not perform the activity before the current illness, exacerbation or injury. 10-Not Attempted due to Environmental Limitations-(lack of equipment, weather restraints, etc.). 88-Not Attempted due to Medical Conditions or Safety Concerns. Roll Left to Right (QC): 3 Sit to Lying (QC): 3 Sit to Stand (QC): 3 Chair/Ozh-oo-Jgknd Xfer(QC): 3 Car Transfer (QC): 4 Gait Training Does the Patient Walk?: Yes Distance: 200' Walk 10 feet (QC): 4 Walk 50 ft with 2 Turns(QC): 4 Walk 150 ft (QC): 4 Walking 10ft/uneven surface-QC: 4 Gait Persons Needed: 1 Gait Assistive Device: FWW Wheelchair Training Does the Pt Use a Wheelchair?: No Wheel 50 ft with 2 turns (QC): 9 Wheel 150 ft (QC): 9 Stair Training #of Steps: 1 1 Step (curb) (QC): 4 4 Steps (QC): 88 12 Steps (QC): 88 Balance Picking up an Object (QC): 4 ADL-Treatment Eating (QC): 4 (supervision, initiation cues) Oral Hygiene (QC): 7 Shower/Bathe Self (QC): 4 (Pt completes sponge bath EOB, completes with assist of back and steadying assist/ SBA in sit, and CGA in stance during bottom hygiene. Pt requires cues for thoroughness. Pt expresses fatigue and returns to bed for ~3 minute rest prior to foot washing/ dressing.) Upper Body Dressing (QC): 5 (s/u) Lower Body Dressing (QC): 4 (Pt requires cues for threading feet through correct holes and threading catheter. CGA in stance to pull past hips.) On/Off Footwear (QC): 3 (Help to put socks on but able to take them off with initiation cues) Toileting Hygiene (QC): 4 (CGA and cues for thoroughness) Toilet Transfer (QC): 4 (CGA, supervision, cues for hand placement) Assessment/Plan Assessment and Plan Assess & Plan/Chief Complaint Assessment: Parkinson's disease Falls Abrasion on back AF PVD CAD Urinary retention now palmer DC per Urology Chronic constipation Dementia Left pseudoaneurysm from peripheral procedure 1 month ago Plan: IRF protocol BM regimen Palmer cath DC per Dr Villanueva Pseudoaneurysm management not critical (1) Parkinsons disease (2) Dementia (3) Orthostasis (4) Labile hypertension (5) Falls frequently (6) Urinary retention (7) Constipation (8) DM (9) Obstructive sleep apnea of adult Status: Acute (10) PAD (peripheral artery disease) Status: Acute JULIA GILLESPIE DO Sep 21, 2019 09:57 POS
--- NOTE | 2019-09-21 10:18 | Occupational Ther Daily Note ---
OT Current Status-Daily Note Subjective Pt seen in bed, alert. Pt readily agreeable to OT tx session, denies pain. Mental Status/Objective Attachments: Patel Catheter ADL-Treatment Therapy Code Descriptions/Definitions Functional [place] Measure: 0=Not Assessed/NA 4=Minimal Assistance 1=Total Assistance 5=Supervision or Setup 2=Maximal Assistance 6=Modified [place] 3=Moderate Assistance 7=Complete IndependenceSCALE: Activities may be completed with or without assistive devices. 8-Hsrwvpigjm-ftnrcuz completes the activity by him/herself with no assistance from a helper. 5-Set-up or Clean-up Assistance-helper sets up or cleans up; patient completes activity. [place] assists only prior to or following the activity. 4-Supervision or Touching Assistance-helper provides verbal cues and/or touching/steadying and/or contact guard assistance as patient completes activity. Assistance may be provided throughout the activity or intermittently. 3-Partial/Moderate Assistance-helper does LESS THAN HALF the effort. [place] lifts, holds or supports trunk or limbs, but provides less than half the effort. 2-Substantial/Maximal Assistance-helper does MORE THAN HALF the effort. [place] lifts or holds trunk or limbs and provides more than half the effort. 4-Izaujcyef-lpkgmk does ALL the effort. Patient does none of the effort to complete the activity. Or, the assistance of 2 or more helpers is required for the patient to complete the activity. If activity was not attempted, code reason: 7-Patient Refused. 9-Not Applicable-not attempted and the patient did not perform the activity be fore the current illness, exacerbation or injury. 10-Not Attempted due to Environmental Limitations-(lack of equipment, weather restraints, etc.). 88-Not Attempted due to Medical Conditions or Safety Concerns. Eating (QC): 6 Oral Hygiene (QC): 4 (SBA in stance at FWW/ sink) Upper Body Dressing (QC): 7 Lower Body Dressing (QC): 7 Other Treatment Pt denies showering/ changing clothes on this date. Vitals assessed in bed/ supine: 131/72, 98% 02, 60 BPM; sitting EOB: 106/60, 98% 02, 66 BPM; standing at FWW: 97/58. Pt denies lightheadedness/ states he feels "fine" in each position. Pt transfers sit to stand to FWW with cues for hand placement, sits in recliner chair with cues to sit with control- controlled sit completed. Pt completes hair grooming with IND, sit to stand with cues, completes oral hygiene in stance at sink with FWW. Pt sits in w/c and pushed to therapy gym; completes 10 minutes of moderate resistance of arm bike with no c/o fatigue/ no noted SOB. Pt takes one 1 minute rest break at 5 min. Pt completes sit to stand with FWW from w/c to sit EOM, completes core twists/ shoulder flexion to 90*/ bicep curls with weighted 3# bar. Pt completes with cues for initiation and termination. Pt requires cues throughout for problem solving/ initiation. Pt completes toe-touches by bringing each ankle over opposite knee, returns to floor 3x per leg, difficulty with reaching L toes in this position, pt completes stretches to ensure easier LLE footwear donning. Pt returns to room, requests back into bed. Pt lays EOB with knees over side of bed, pt closes eyes and requires cues to reach mid-bed. Pt states agreement to bed rails up, left with bed alarm on, pt reclined in bed, all needs met, call light within reach. Education OT Patient Education: Correct positioning, Exercise program, Home exercise program, Modified ADL techniques, Purpose of tx/functional activities, Safety issues, Transfer techniques Teaching Recipient: Patient Teaching Methods: Demonstration, Discussion Response to Teaching: Verbalize Understanding, Return Demonstration, Reinforcement Needed OT Short Term Goals Short Term Goals Time Frame: Sep 26, 2019 Toileting hygiene: 4 (met) Lower body dressin (met) Putting on/taking off footwear: 4 OT Halfway Goals Halfway Goals Time Frame: Oct 04, 2019 Eating (QC): 5 Oral Hygiene (QC): 5 Toileting Hygiene (QC): 5 Shower/Bathe Self (QC): 5 Upper Body Dressing (QC): 5 (met) Lower Body Dressing (QC): 5 On/Off Footwear (QC): 5 Additional Goals: 1-Demonstrate ADL Tasks, 2-Verbalize Understanding, 3- ImproveStrength/Navya 1=Demonstrate adherence to instructed precautions during ADL tasks. 2=Patient will verbalize/demonstrate understanding of assistive devices/modifications for ADL. 3=Patient will improve strength/tolerance for activity to enable patient to perform ADL's. OT Education/Plan Problem List/Assessment Assessment: Decreased Activ Tolerance, Decreased Safety Aware, Dependent Transfers, Impaired Cognition, Impaired Funct Balance, Impaired I ADL's, Impaired Self-Care Skills Pt would benefit from skilled OT to increase his independence with basic self care to allow him to safely return home and decrease risk of falling. Discharge Recommendations Plan/Recommendations: Continue POC Therapy Discharge Recommendati: Post Acute OT Treatment Plan/Plan of Care Treatment,Training & Education: Yes Patient would benefit from OT for education, treatment and training to promote independence in ADL's, mobility, safety and/or upper extremity function for ADL's. Plan of Care: ADL Retraining, Functional Mobility, Group Exercise/Act as Ind (education, exercise, activity tolerance, functional mobility, socialization, memory), UE Funct Exercise/Act, UE Neuromus Re-Ed/Coord Treatment Duration: Oct 04, 2019 Frequency: At least 5 of 7 days/Wk (IRF) Estimated Hrs Per Day: 1.5 hours per day (1.25 to 1.5) Agreement: Yes Rehab Potential: Fair Time/GCodes Start Time: 09:00 Stop Time: 10:00 Total Time Billed (hr/min): 60 Billed Treatment Time 1, ADL (15), EX 3 (45)= 60 TYRA ALEJO OTR Sep 21, 2019 10:18 POS
--- NOTE | 2019-09-21 11:30 | NUR ---
Orders to remove palmer catheter and bladder scan. area cleansed, 8cc sterile water removed from balloon, palmer removed intact without incident. will con't to monitor and scan bladder after lunch. patient tolerates procedure well.
--- NOTE | 2019-09-21 11:50 | Speech Therapy Daily Note ---
Speech Daily Progress Note Subjective Date Seen by Provider: Sep 21, 2019 Time Seen by Provider: 00:30 Patient resting in bed after therapy. Objective Patient completed a series of questions related to his personal needs/safety with 75% given 25% repetitions and/or cues. Assessment Assessment Current Status: Fair Progress Treatment Plan Continue Plan of Care Speech Short Term Goals Short Term Goals Short Term Goals 1) The patient will complete memory tasks related to her daily needs at 90% or greater with minimal cues. 2) The patient will complete safety awareness tasks related to her daily needs at 90% or greater with minimal cues. 3) The patient will complete problem solving tasks related to her daily needs at 90% or greater with minimal cues. Speech Clinical Quality Analyst Goals Clinical Quality Analyst Goals The patient will improve cognitive-communication necessary for safety and daily living tasks with minimal assist. Speech-Plan Patient/Family Goals Patient/Family Goals: Patient plans on returning home with his post rehab. Treatment Plan Speech Therapy Treatment Plan: Continue Plan of Care Patient requires frequent verbal prompts to stay awake and participate. Treatment Duration: Sep 30, 2019 Frequency: 5 times per week Estimated Hrs Per Day: .5 hour per day Rehab Potential: Fair Barriers to Learning: Patient's decreased cognitive function Pt/Family Agrees to Plan: Yes Safety Risks/Education Teaching Recipient: Patient Teaching Methods: Demonstration, Discussion Response to Teaching: Verbalize Understanding, Return Demonstration, Reinforcement Needed Education Topics Provided: Continued safety and communication of wants/needs Time Speech Therapy Time In: 10:30 Speech Therapy Time Out: 11:00 Total Billed Time: 30 Billed Treatment Time 1, SLPATRICK Crews Sep 21, 2019 11:50 POS
--- NOTE | 2019-09-21 12:06 | Physical Therapy Daily Note ---
PT Daily Note-Current Subjective Pt. in bed asleep and did not want to wake up initially but was then very cooperative with encouragement. Pain Location: No Pain Reported Mental Status Patient Orientation: Confused Transfers SCALE: Activities may be completed with or without assistive devices. 2-Ibttsxetmk-semtgol completes the activity by him/herself with no assistance from a helper. 5-Set-up or Clean-up Assistance-helper sets up or cleans up; patient completes activity. [place] assists only prior to or following the activity. 4-Supervision or Touching Assistance-helper provides verbal cues and/or touching /steadying and/or contact guard assistance as patient completes activity. Assistance may be provided throughout the activity or intermittently. 3-Partial/Moderate Assistance-helper does LESS THAN HALF the effort. [place] lifts, holds or supports trunk or limbs, but provides less than half the effort. 2-Substantial/Maximal Assistance-helper does MORE THAN HALF the effort. [place] lifts or holds trunk or limbs and provides more than half the effort. 0-Ulohwoiqe-fomqyt does ALL the effort. Patient does none of the effort to complete the activity. Or, the assistance of 2 or more helpers is required for the patient to complete the activity. If activity was not attempted, code reason: 7-Patient Refused. 9-Not Applicable-not attempted and the patient did not perform the activity before the current illness, exacerbation or injury. 10-Not Attempted due to Environmental Limitations-(lack of equipment, weather restraints, etc.). 88-Not Attempted due to Medical Conditions or Safety Concerns. Roll Left & Right (QC): 5 Sit to Lying (QC): 5 Lying to Sitting/Side of Bed(Q: 5 Sit to Stand (QC): 5 Gait Training Does the Patient Walk?: Yes Walk 10 feet (QC): 4 Gait Persons Needed: 1 Gait Assistive Device: FWW short distances secondary to pts recent BP drops and orthostasis Exercises Supine Ex: Bridging, Ankle pumps, Quad Set, Rolling, Heel Slides, Scooting, Straight leg raise, Hip abd/add Supine Reps: 20 Seated Therapy Exercises: Ankle pumps, Sit to stand, Long arc quads, Hip flexion, Hip abd/add Seated Reps: 15 Treatments BP as recorded below but pt. never c/o dizziness and had no evelio LOB with Rx Assessment Current Status: Fair Progress sup BP: 155/106 HR 65, sitting BP135/68 HR 64, standing BP 92/54 HR 61. PT Short Term Goals Short Term Goals Time Frame: Sep 24, 2019 Roll Left & Right: 6 Sit to lyin Lying to sitting on side of be: 6 Sit to stand: 4 (SBA) Chair/yls-qf-zsagf transfer: 4 (SBA) Walk 10 feet: 4 (SBA) Walk 50 feet with two turns: 4 (SBA) Walk 150 feet: 4 (SBA) PT Envelope Fold Operator Goals Prison Goals PT Envelope Fold Operator Goals Time Frame: Oct 08, 2019 Roll Left & Right (QC): 6 Sit to Lying (QC): 6 Lying-Sitting on Side/Bed(QC): 6 Sit to Stand (QC): 6 Chair/Lyw-tw-Lpxva Xfer(QC): 6 Toilet Transfer (QC): 6 Car Transfer (QC): 6 Does the Patient Walk: Yes Walk 10 feet (QC): 6 Walk 50ft with 2 Turns (QC): 6 Walk 150 ft (QC): 6 Walking 10ft on Uneven Surface: 6 1 Step (curb) (QC): 4 4 Steps (QC): 4 12 Steps (QC): 88 Picking up an Object (QC): 6 Does the Pt use WC or Scooter?: No Type: N/A Type: N/A PT Plan Treatment/Plan Treatment Plan: Continue Plan of Care Treatment Plan: Education, Functional Activity Navya, Functional Strength, Group Therapy, Gait, Safety, Therapeutic Exercise, Transfers Treatment Duration: Oct 08, 2019 Frequency: At least 5 of 7 days/Wk (IRF) Estimated Hrs Per Day: 1.5 hours per day Patient and/or Family Agrees t: Yes Safety Risks/Education Patient Education: Gait Training, Transfer Techniques, Correct Positioning, Disease Process, Safety Issues Teaching Recipient: Patient Teaching Methods: Demonstration, Discussion Response to Teaching: Verbalize Understanding, Return Demonstration, Reinforcement Needed Time/GCodes Time In: 1105 Time Out: 1205 Total Billed Treatment Time: 60 Total Billed Treatment 1,EX30m,FA30m SANDEE BENNETT CORE PLACER Sep 21, 2019 12:06 POS
--- NOTE | 2019-09-21 14:34 | Progress Note ---
DENY GAITAN,MED STUDENT 09/21/19 1434: Progress Note Patient to have Patel removed today and trial of void. He had an episode of near syncope yesterday during therapy with BP of 85/55. Lopressor being held, Norvasc discontinued. Cardiology considering thrombin injection per IR for L common femoral pseudoaneurysm pending repeat ultrasound in 2 weeks. OT and PT report that he is requiring minimal to moderate assistance with ADLs and transfers, and requires constant cues to keep him on track. He is oriented to person but not to time or place. He has good support at home from his children. His works during the day. Goals prior to discharge are to make sure he is voiding well and that his orthostatic hypotension is well controlled. Goal discharge date: 09/28/19 MARIA T GILLESPIE DO 09/21/192111: Supervisory-Addendum Brief Verification & Attestation Participated in pt care: history, MDM, physical Personally performed: exam, history, MDM, supervision of care Care discussed with: Medical Student Procedures: n/a Results interpretation: Verified all documentation Verification and Attestation of Medical Student E/M Service A medical student performed and documented this service in my presence. I reviewed and verified all information documented by the medical student and made modifications to such information, when appropriate. I personally performed the physical exam and medical decision making. Maria T Gillespie, Sep 21, 2019,21:12 DENY GAITAN,MED STUDENT Sep 21, 2019 14:34 MARIA T ARZATE DO Sep 21, 2019 21:12 POS
--- NOTE | 2019-09-21 14:47 | Therapy Group Daily Note ---
Therapy Daily Group Note Patient Education Topic Other List Below (transfers) Exercises LE Seated Exercise, UE Exercise Session Ratio (pt:therapist): 4:1 Goal of Session: UE/LE Strengthing, Safety with Transfers Goal Met for this Session: Yes Pt Benefit of Group: Contributions to Others, F/U Use of Strategies @Home, Increased Functional Safety, Increased Functional Strength, Improved Cognition, Recognition of Peers, Socialization Other/Notes Pt was transported via w/c to <--> from [facility] for OT/PT group. Group consisted of introductions (name, place living, Josselin memory), so cialization, pt led UE/LE seated exercises and education for safe transfers. Pt introduced self appropriately and actively listened to peers, with cues. Pt required assist to stay focused and participate during group. Pt able to read exercise card and lead peers in one exercise then was able to complete other exercises. Pt acknowledged understanding of safe transfers utilizing AE for bathroom, automobile and chairs by contributing ideas and own experiences. After therapy, pt lying in bed with call light/phone in reach. All needs met in room. Start Time: 13:00 Stop Time: 14:15 Total Billed Treatment Time: 75 Total Billed Treatment 1-GRP SRINIVAS MARTINEZ Sep 21, 2019 14:47 POS
--- NOTE | 2019-09-21 16:33 | Cardiology Progress Note ---
Subjective Date Seen by Provider: Sep 21, 2019 Time Seen by Provider: 16:33 Subjective/Events-last exam patient is laying down in bed, denied any chest pain, had orthostatic hypotension again today Review of Systems General: No Chills, No Night Sweats; Fatigue, Malaise; No Appetite, No Other HEENT: No Head Aches, No Visual Changes, No Eye Pain, No Ear Pain, No Dysph denton, No Sinus Congestion, No Post Nasal Drip, No Sore Throat, No Other Pulmonary: No Dyspnea, No Cough, No Pleuritic Chest Pain, No Other Cardiovascular: No: Chest Pain, Palpitations, Orthopnea, Paroxysmal Noc. Dyspnea, Edema, Lt Headedness, Other Objective-Cardiology Exam Last Set of Vital Signs Vital Signs 09/21/19 09/21/19 05:51 09:00 Temp 36.4 Pulse 62 Resp 20 B/P (MAP) 145/74 (97) Pulse Ox 97 O2 Delivery Room Air Capillary Refill : I&O Intake and Output 09/21/19 00:00 Intake Total 1977 ml Output Total 1150 ml Balance 827 ml Intake Oral 1457 ml IV Total 520 ml Output Urine Total 1150 ml General: Alert, Cooperative, Other (confused) HEENT: Atraumatic, PERRLA Neck: Supple, No JVD, No Thyromegaly Lungs: Clear to Auscultation, Normal Air Movement Heart: Regular Rate, Normal S1, Normal S2, No Murmurs Abdomen: Normal Bowel Sounds, Soft, No Tenderness, No Hepatosplenomegaly, No Masses Extremities: No Clubbing, No Cyanosis, No Edema, No Tenderness/Swelling, Other (diminished pulse LLE, L groin bruit) Skin: No Rashes, No Breakdown, No Significant Lesion Neuro: Normal Gait, Normal Speech, Strength at 5/5 X4 Ext, Normal Tone, Sensation Intact Psych/Mental Status: Mental Status NL, Mood NL Results Lab Laboratory Tests 09/21/19 05:20 A/P-Cardiology Admission Diagnosis Parkinson disease Peripheral arterial disease Coronary artery disease Hypertension Assessment/Plan Change in mental status, generalized weakness and loss of energy, Parkinson disease, multiple falls, appears back to baseline Labile hypertension, still having orthostatic hypotension, hold metoprolol again and monitor. Small Left groin pseudoaneurysm at left MILK POWDER GRINDER, Continue with conservative management, plan to reevaluate US in 2 weeks. Severe Peripheral vascular disease, had nonhealing wound right lower extremity, underwent peripheral angiogram on August 17, 2019 revealing total occlusion of right SFA, successful angioplasty then deployment of 2 Supera stent [id number] and [id number] with excellent results and flow. Severe disease at the distal posterior tibial artery proximal anterior tibial artery. Heavily calcified left SFA with multiple segments of moderate to severe disease with occluded anterior tibial artery. Patient is maintained on Plavix and aspirin. Wound to right lower extremity is healing. Patient has known severe disease on the left side, we will continue with conservative management unless patient becomes symptomatic due to his comorbidities. Currently not having any symptoms, does not have any ulceration to left lower extremity. Continue to monitor Sick sinus syndrome, history of episodes of bradycardia with complete heart block, frequent PVCs, ventricular bigeminy and ventricular couplets, short PA T's. 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 Continue to monitor Nonsustained ventricular tachycardia, has been maintained on amiodarone 200 mg daily. No recent arrhythmia on pacemaker interrogation, continue to monitor. Paroxysmal atrial fibrillation, maintained on Amiodarone, continue to monitor. [id number] score of 6, high risk, yearly risk of stroke without OAC is 9.8%. Maintained on Xarelto, continue to monitor Coronary artery disease, multiple interventions in the past, most recent cardiac catheterization done March 14, 2015 revealed extensive coronary artery disease, heavily calcified system, with 40 percent distal left main coronary artery stenosis. 3 stents in LAD proximally with 50-60 percent in-stent restenosis. Distal LAD had 95 percent stenosis followed by 80 percent stenosis long segment, very small artery not amendable to intervention. Total occlusion of the first obtuse marginal branch filled by collaterals. Patent stent in the proximal mid second OM branch with moderate disease in the distal proper circumflex artery. Patent stent in the RCA with 50 percent proximal right coronary artery stenosis and 50-60 distal right coronary artery stenosis. Asymptomatic, continue to monitor Stress test in July 2016 showed fixed defect involving the whole inferior wall and inferoapical segment with dilated left ventricle, inferior wall hypokinesia, Ejection fraction 54 percent. Echocardiogram showed ejection fraction 60 percent, dilated left atrium, mild to moderate mitral regurgitation and pulmonary artery pressure of 35 mmHg. continue to monitor, Hyperlipidemia, maintained on Crestor, continue to monitor lipids. History of CVA in 2010, mild residual right sided weakness, episodes of confusion occurred over the last year where patient became confused and drove over once to [place] and once to [place]. It was felt that it was a global ischemic attack with confusion, workup at that time was negative. He was seen by Dr. Jiménez and started on Dilantin, the dose was increased by Dr. Damon, followed and managed by primary care physician Congestive heart failure, EF 45-50 percent, as well as diastolic dysfunction per most recent 2-D echocardiogram done 2018, continue with current medication Diabetes mellitus, followed and managed by primary care physician Carotid stenosis, monitored by Dr. Simmons's office Dementia, managed by primary care physician. Ex-Tobaccoism, patient smokes pipe, he stopped smoking in October, encouraged to continue with smoking cessation Peripheral neuropathy, maintained on gabapentin. Continue on current medication, continue to monitor Sleep apnea, severe on sleep study in October 2015, does not use his machine. Clinical Quality Measures DVT/VTE Risk/Contraindication: Risk Factor Score Per Nursin RFS Level Per Nursing on Admit: 4+=Very High SEBASTIÁN VALLE MD Sep 21, 2019 16:33 POS
[2019-09-21] MEDS: RIVAROXABAN 20 MG TABLET (XARELTO) PO SCH (17:19)
[2019-09-21 17:53] VITALS: BP 131/72
[2019-09-21] MEDS: meTOprolol TARTRATE 25 MG (LOPRESSOR) TABLET PO SCH (19:58)
[2019-09-21] MEDS: ASPIRIN E.C. 81 MG (ECOTRIN) TAB PO SCH (21:03)
[2019-09-21] MEDS: MELATONIN 3 MG TABLET PO PRN (21:03)
[2019-09-21] MEDS: cefTRIAXone FOR IV USE 1,000 MG in WATER (STERILE) FOR INJECTION 10 ML IV SCH (21:07)
[2019-09-22] MEDS: inSUlin ASPART (NovoLOG) 1 UNIT/0.01 ML (CHARGE PER UNIT) SC SCH ×4 (05:43→21:12)
[2019-09-22] MEDS: BETHANECHOL 25 MG (URECHOLINE) TAB PO SCH ×4 (05:44→20:00)
[2019-09-22] MEDS: CATHETER FLUSH 10 ML SYR IV SCH ×3 (05:45→20:02)
[2019-09-22 06:17] VITALS: BP 148/74
--- NOTE | 2019-09-22 08:00 | Progress Note ---
Subjective Time Seen by a Provider: 07:58 Subjective/Events-last exam Patient resting comfortably this morning. Patient had to be straight catheter. Bladder scan showed 500 mL. Patient unable to void by himself since Patel taken out Objective Exam Vital Signs Date Time Temp Pulse Resp B/P (MAP) Pulse Ox O2 Delivery O2 Flow Rate FiO2 09/22/19 06:17 36.5 60 18 148/74 (98) 96 Room Air 09/21/19 21:02 Room Air 09/21/19 17:53 36.4 60 18 131/72 (91) 98 Room Air 09/21/19 09:00 Room Air I & O 09/22/19 07:00 Intake Total 1520 ml Output Total 1110 ml Balance 410 ml Capillary Refill : General Appearance: No Apparent Distress, WD/WN HEENT: Normal ENT Inspection Neck: Full Range of Motion, Normal Inspection Respiratory: Lungs Clear, No Accessory Muscle Use, No Respiratory Distress Cardiovascular: Regular Rate, Rhythm, No Murmur Gastrointestinal: non tender, soft Results Lab Laboratory Tests 09/21/19 10:48: Glucometer 170H 09/21/19 15:34: Glucometer 258H 09/21/19 20:39: Glucometer 299H 09/22/19 05:33: Glucometer 148H Assessment/Plan Assessment/Plan Assess & Plan/Chief Complaint Parkinson disease. Hypoglycemia. Hypertension. Weakness. Debility. Dementia.. . 09/20/19. Parkinson disease. Hypoglycemia. Hypertension. Weakness. Debility. Dementia. Pseudoaneurysm of left femoral artery. . 09/21/19. Parkinson disease. Diabetes. Orthostatic hypertension. Hypertension. Weakness improving. Debility improving. Dementia. Pseudoaneurysm of the left femoral artery small. . 09/22/19. Parkinson disease. Orthostatic hypotension. Diabetes. History of hypertension. Weakness. Debility. Dementia. Pseudoaneurysm of the left femoral artery small Clinical Quality Measures DVT/VTE Risk/Contraindication: Risk Factor Score Per Nursin RFS Level Per Nursing on Admit: 4+=Very High DENIZ KENT DO Sep 22, 2019 08:00 POS
--- NOTE | 2019-09-22 08:17 | Cardiology Progress Note ---
Subjective Date Seen by Provider: Sep 22, 2019 Time Seen by Provider: 08:16 Subjective/Events-last exam Patient is in bed, no new complaints. Denies any further episode of dizziness. Review of Systems General: No Chills, No Night Sweats, No Fatigue, No Malaise, No Appetite, No Other HEENT: No Head Aches, No Visual Changes, No Eye Pain, No Ear Pain, No Dysphasia, No Sinus Congestion, No Post Nasal Drip, No Sore Throat, No Other Pulmonary: No Dyspnea, No Cough, No Pleuritic Chest Pain, No Other Cardiovascular: No: Chest Pain, Palpitations, Orthopnea, Paroxysmal Noc. Dyspnea, Edema, Lt Headedness, Other Objective-Cardiology Exam Last Set of Vital Signs Vital Signs 09/22/19 06:17 Temp 36.5 Pulse 60 Resp 18 B/P (MAP) 148/74 (98) Pulse Ox 96 O2 Delivery Room Air Capillary Refill : I&O Intake and Output 09/22/19 00:00 Intake Total 1570 ml Output Total 960 ml Balance 610 ml Intake Oral 1570 ml Output Urine Total 900 ml Post Void Residual 60 ml Bladder Scan Volume Amount 84 ml 84 ml 272 ml General: Alert, Cooperative, Other (confused) HEENT: Atraumatic, PERRLA Neck: Supple, No JVD, No Thyromegaly Lungs: Clear to Auscultation, Normal Air Movement Heart: Regular Rate, Normal S1, Normal S2, No Murmurs Abdomen: Normal Bowel Sounds, Soft, No Tenderness, No Hepatosplenomegaly, No Masses Extremities: No Clubbing, No Cyanosis, No Edema, No Tenderness/Swelling, Other (diminished pulse LLE, L groin bruit) Skin: No Rashes, No Breakdown, No Significant Lesion Neuro: Normal Gait, Normal Speech, Strength at 5/5 X4 Ext, Normal Tone, Sensation Intact Psych/Mental Status: Mental Status NL, Mood NL A/P-Cardiology Admission Diagnosis Parkinson disease Peripheral arterial disease Coronary artery disease Hypertension Assessment/Plan Change in mental status, generalized weakness and loss of energy, Parkinson disease, multiple falls, appears back to baseline Labile hypertension, has been having orthostatic hypotension. Metoprolol on hold, continue to monitor. 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 Severe Peripheral vascular disease, had nonhealing wound right lower extremity, underwent peripheral angiogram on August 17, 2019 revealing total occlusion of right SFA, successful angioplasty then deployment of 2 Supera stent [id number] and 6x100 with excellent results and flow. Severe disease at the distal posterior tibial artery proximal anterior tibial artery. Heavily calcified left SFA with multiple segments of moderate to severe disease with occluded anterior tibial artery. Patient is maintained on Plavix and aspirin. Wound to right lower extremity is healing. Patient has known severe disease on the left side, we will continue with conservative management unless patient becomes symptomatic due to his comorbidities. Currently not having any symptoms, does not have any ulceration to left lower extremity. Continue to monitor Sick sinus syndrome, history of episodes of bradycardia with complete heart block, frequent PVCs, ventricular bigeminy and ventricular couplets, short PAT's. Status post permanent pacemaker implantation April 2015, using a 24tidy device [employer] DR GONZALEZ, last interrogation was done in June 2019 showing good sensing and capture activity, longevity for the battery is 4 years, no arrhythmia was detected. Continue to monitor Nonsustained ventricular tachycardia, has been maintained on amiodarone 200 mg daily. No recent arrhythmia on pacemaker interrogation, continue to monitor. Paroxysmal atrial fibrillation, maintained on Amiodarone, continue to monitor. [id number] score of 6, high risk, yearly risk of stroke without OAC is 9.8%. Maintained on Xarelto, continue to monitor Coronary artery disease, multiple interventions in the past, most recent cardiac catheterization done March 14, 2015 revealed extensive coronary artery disease, heavily calcified system, with 40 percent distal left main coronary artery stenosis. 3 stents in LAD proximally with 50-60 percent in-stent restenosis. Distal LAD had 95 percent stenosis followed by 80 percent stenosis long segment, very small artery not amendable to intervention. Total occlusion of the first obtuse marginal branch filled by collaterals. Patent stent in the proximal mid second OM branch with moderate disease in the distal proper circumflex artery. Patent stent in the RCA with 50 percent proximal right coronary artery stenosis and 50-60 distal right coronary artery stenosis. Asymptomatic, continue to monitor Stress test in July 2016 showed fixed defect involving the whole inferior wall and inferoapical segment with dilated left ventricle, inferior wall hypokinesia, Ejection fraction 54 percent. Echocardiogram showed ejection fraction 60 percent, dilated left atrium, mild to moderate mitral regurgitation and pulmonary artery pressure of 35 mmHg. continue to monitor, Hyperlipidemia, maintained on Crestor, continue to monitor lipids. History of CVA in 2010, mild residual right sided weakness, episodes of confusion occurred over the last year where patient became confused and drove over once to [place] and once to [place]. It was felt that it was a global ischemic attack with confusion, workup at that time was negative. He was seen by Dr. Jiménez and started on Dilantin, the dose was increased by Dr. Damon, followed and managed by primary care physician Congestive heart failure, EF 45-50 percent, as well as diastolic dysfunction per most recent 2-D echocardiogram done 2018, continue with current medication Diabetes mellitus, followed and managed by primary care physician Carotid stenosis, monitored by Dr. Simmons's office Dementia, managed by primary care physician. Ex-Tobaccoism, patient smokes pipe, he stopped smoking in October, encouraged to continue with smoking cessation Peripheral neuropathy, maintained on gabapentin. Continue on current medication, continue to monitor Sleep apnea, severe on sleep study in October 2015, does not use his machine. Patient was seen and evaluated with Yee, examination performed, management plan was discussed, agree with the current scribed note, I made few changes to the note using Italic font Patient is laying down in bed, complaint of fatigue, still having orthostatic hypotension I have stopped his blood pressure medication, probably there is an element of peripheral neuropathy and autonomic dysfunction as an underlying cause for his orthostatic hypotension. He will not be able to tolerate the dose due to the peripheral arterial disease He will not be able to tolerate Florinef due to the severe baseline hypertension. Continue with conservative management Clinical Quality Measures DVT/VTE Risk/Contraindication: Risk Factor Score Per Nursin RFS Level Per Nursing on Admit: 4+=Very High YEE CLINTON Sep 22, 2019 8:17 am SEBASTIÁN ZAVALETA MD Sep 22, 2019 3:48 pm CHARLIE
--- NOTE | 2019-09-22 09:33 | Occupational Ther Daily Note ---
OT Current Status-Daily Note Subjective Pt seen in bed, awake/ alert. Pt agreeable to OT tx session, denies pain. ADL-Treatment Therapy Code Descriptions/Definitions Functional [place] Measure: 0=Not Assessed/NA 4=Minimal Assistance 1=Total Assistance 5=Supervision or Setup 2=Maximal Assistance 6=Modified [place] 3=Moderate Assistance 7=Complete IndependenceSCALE: Activities may be completed with or without assistive devices. 7-Bofagiljap-pxiotmo completes the activity by him/herself with no assistance from a helper. 5-Set-up or Clean-up Assistance-helper sets up or cleans up; patient completes activity. [place] assists only prior to or following the activity. 4-Supervision or Touching Assistance-helper provides verbal cues and/or touching/steadying and/or contact guard assistance as patient completes activity. Assistance may be provided throughout the activity or intermittently. 3-Partial/Moderate Assistance-helper does LESS THAN HALF the effort. [place] lifts, holds or supports trunk or limbs, but provides less than half the effort. 2-Substantial/Maximal Assistance-helper does MORE THAN HALF the effort. [place] lifts or holds trunk or limbs and provides more than half the effort. 2-Sfsyvpadr-dreckf does ALL the effort. Patient does none of the effort to complete the activity. Or, the assistance of 2 or more helpers is required for the patient to complete the activity. If activity was not attempted, code reason: 7-Patient Refused. 9-Not Applicable-not attempted and the patient did not perform the activity before the current illness, exacerbation or injury. 10-Not Attempted due to Environmental Limitations-(lack of equipment, weather restraints, etc.). 88-Not Attempted due to Medical Conditions or Safety Concerns. Eating (QC): 6 (Pt had completed breakfast prior to entry) Oral Hygiene (QC): 7 Shower/Bathe Self (QC): 4 (Pt completes LB bathing with CGA in stance.) Lower Body Dressing (QC): 4 (CGA in stance) Toileting Hygiene (QC): 4 (Pt requires mod A for righting self, requires sit to EOB during bottom hygiene. When asked if weak/ lightheaded pt states, "A little bit." Pt returns to stance after 2 min rest break, completes with CGA.) on/ off footwear: 3- pt able to complete doffing R sock IND, L sock with intermittent assist. Pt dons R sock with SBA, L sock with max A Other Treatment Pt completes LB sponge bath EOB/ in recliner chair. Pt no longer has palmer catheter, brief and pants donned with CGA. Pt sits in recliner chair, completes hair grooming. Pt remains in recliner chair, chair alarm on, call light in reach, all needs met. Education OT Patient Education: Correct positioning, Modified ADL techniques, Purpose of tx/functional activities, Safety issues, Transfer techniques Teaching Recipient: Patient Teaching Methods: Demonstration, Discussion Response to Teaching: Verbalize Understanding, Return Demonstration, Reinforcement Needed OT Short Term Goals Short Term Goals Time Frame: Sep 26, 2019 Toileting hygiene: 4 (met) Lower body dressin (met) Putting on/taking off footwear: 4 OT Dentofacial Orthopedics Dentist Goals Skilled Nursing Goals Time Frame: Oct 04, 2019 Eating (QC): 5 Oral Hygiene (QC): 5 Toileting Hygiene (QC): 5 Shower/Bathe Self (QC): 5 Upper Body Dressing (QC): 5 (met) Lower Body Dressing (QC): 5 On/Off Footwear (QC): 5 Additional Goals: 1-Demonstrate ADL Tasks, 2-Verbalize Understanding, 3-ImproveStrength/[place] 1=Demonstrate adherence to instructed precautions during ADL tasks. 2=Patient will verbalize/demonstrate understanding of assistive devices/modifications for ADL. 3=Patient will improve strength/tolerance for activity to enable patient to perform ADL's. OT Education/Plan Problem List/Assessment Assessment: Decreased Activ Tolerance, Decreased UE Strength, Dependent Transfers, Impaired Funct Balance, Impaired I ADL's, Impaired Self-Care Skills Pt would benefit from skilled OT to increase his independence with basic self care to allow him to safely return home and decrease risk of falling. Discharge Recommendations Plan/Recommendations: Continue POC Treatment Plan/Plan of Care Treatment,Training & Education: Yes Patient would benefit from OT for education, treatment and training to promote independence in ADL's, mobility, safety and/or upper extremity function for ADL's. Plan of Care: ADL Retraining, Functional Mobility, Group Exercise/Act as Ind (education, exercise, activity tolerance, functional mobility, socialization, memory), UE Funct Exercise/Act, UE Neuromus Re-Ed/Coord Treatment Duration: Oct 04, 2019 Frequency: At least 5 of 7 days/Wk (IRF) Estimated Hrs Per Day: 1.5 hours per day (1.25 to 1.5) Agreement: Yes Rehab Potential: Fair Time/GCodes Start Time: 09:00 Stop Time: 09:30 Total Time Billed (hr/min): 30 Billed Treatment Time 1, ADL 2 (30) TYRA ALEJO OTR Sep 22, 2019 09:33 POS
--- NOTE | 2019-09-22 09:39 | PM&R Progress Note ---
Subjective HPI/CC On Admission Date Seen by Provider: Sep 22, 2019 Time Seen by Provider: 08:30 Subjective/Events-last exam Had to have a straight in-and-out cath due to urinary retention, obtained 500 CCs. PCP did see him, Dr. Damon. Will discontinue Xanax since that made him too loopy. A little bit poor motivation to get out of bed today. Check meds and labs Reviewed therapy notes Conferred with spinner hydraulic of Systems General: Fatigue Neurological: Weakness, Numbness, Incoordination Objective Exam Vital Signs Vital Signs Date Time Temp Pulse Resp B/P (MAP) Pulse Ox O2 Delivery O2 Flow Rate FiO2 09/24/19 06:15 36.5 60 16 152/71 (98) 96 Room Air Capillary Refill : General Appearance: No Apparent Distress, WD/WN, Chronically ill HEENT: PERRL/EOMI, Normal ENT Inspection, Pharynx Normal Neck: Full Range of Motion, Normal Inspection, Non Tender, Supple Respiratory: Lungs Clear, No Accessory Muscle Use, No Respiratory Distress Cardiovascular: Regular Rate, Rhythm, No Murmur Gastrointestinal: Normal Bowel Sounds, No Organomegaly, No Pulsatile Mass, Non Tender, Soft Back: Normal Inspection, No CVA Tenderness, No Vertebral Tenderness Extremity: Normal Capillary Refill, Normal Inspection, Normal Range of Motion, Non Tender, No Calf Tenderness, No Pedal Edema Neurologic/Psychiatric: Alert, Oriented x3, No Motor/Sensory Deficits (weakness 4/5 legs, falls risk), Normal Mood/Affect, 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 FIM Transfers Therapy Code Descriptions/Definitions Functional [place] Measure: 0=Not Assessed/NA 4=Minimal Assistance 1=Total Assistance 5=Supervision or Setup 2=Maximal Assistance 6=Modified [place] 3=Moderate Assistance 7=Complete IndependenceSCALE: Activities may be completed with or without assistive devices. 9-Siedwhhovg-acctazb completes the activity by him/herself with no assistance from a helper. 5-Set-up or Clean-up Assistance-helper sets up or cleans up; patient completes activity. [place] assists only prior to or following the activity. 4-Supervision or Touching Assistance-helper provides verbal cues and/or touching/steadying and/or contact guard assistance as patient completes acti vity. Assistance may be provided throughout the activity or intermittently. 3-Partial/Moderate Assistance-helper does LESS THAN HALF the effort. [place] lifts, holds or supports trunk or limbs, but provides less than half the effort. 2-Substantial/Maximal Assistance-helper does MORE THAN HALF the effort. [place] lifts or holds trunk or limbs and provides more than half the effort. 7-Qanaiiojf-ahbgoa does ALL the effort. Patient does none of the effort to complete the activity. Or, the assistance of 2 or more helpers is required for the patient to complete the activity. If activity was not attempted, code reason: 7-Patient Refused. 9-Not Applicable-not attempted and the patient did not perform the activity before the current illness, exacerbation or injury. 10-Not Attempted due to Environmental Limitations-(lack of equipment, weather restraints, etc.). 88-Not Attempted due to Medical Conditions or Safety Concerns. Roll Left to Right (QC): 5 Sit to Lying (QC): 5 Sit to Stand (QC): 5 Chair/Yly-wa-Hwzyl Xfer(QC): 3 Car Transfer (QC): 4 Gait Training Does the Patient Walk?: Yes Distance: 200' Walk 10 feet (QC): 4 Walk 50 ft with 2 Turns(QC): 4 Walk 150 ft (QC): 4 Walking 10ft/uneven surface-QC: 4 Gait Persons Needed: 1 Gait Assistive Device: FWW Wheelchair Training Does the Pt Use a Wheelchair?: No Wheel 50 ft with 2 turns (QC): 9 Wheel 150 ft (QC): 9 Stair Training #of Steps: 1 1 Step (curb) (QC): 4 4 Steps (QC): 88 12 Steps (QC): 88 Balance Picking up an Object (QC): 4 ADL-Treatment Eating (QC): 6 (Pt had completed breakfast prior to entry) Oral Hygiene (QC): 7 Shower/Bathe Self (QC): 4 (Pt completes LB bathing with CGA in stance.) Upper Body Dressing (QC): 7 Lower Body Dressing (QC): 4 (CGA in stance) On/Off Footwear (QC): 3 (Help to put socks on but able to take them off with initiation cues) Toileting Hygiene (QC): 4 (Pt requires mod A for righting self, requires sit to EOB during bottom hygiene. When asked if weak/ lightheaded pt states, "A little bit." Pt returns to stance after 2 min rest break, completes with CGA.) Toilet Transfer (QC): 4 (CGA, supervision, cues for hand placement) Assessment/Plan Assessment and Plan Assess & Plan/Chief Complaint Assessment: Parkinson's disease Falls Abrasion on back wound care consulted AF PVD CAD Urinary retention now palmer DC per Urology Chronic constipation Dementia Left pseudoaneurysm from peripheral procedure 1 month ago Plan: IRF protocol BM regimen Palmer cath DC per Dr Villanueva Pseudoaneurysm management not critical (1) Parkinsons disease (2) Dementia (3) Orthostasis (4) Labile hypertension (5) Falls frequently (6) Urinary retention (7) Constipation (8) DM (9) Obstructive sleep apnea of adult Status: Acute (10) PAD (peripheral artery disease) Status: Acute JULIA GILLESPIE DO Sep 22, 2019 09:39 POS
--- NOTE | 2019-09-22 10:20 | Speech Therapy Daily Note ---
Speech Daily Progress Note Subjective Date Seen by Provider: Sep 22, 2019 Time Seen by Provider: 03:00 Patient was resting in his recliner watching the sports channel on television. Objective Patient completed safety awareness tasks with 60% given 50% verbal and/or visual cuing. Assessment Assessment Current Status: Fair Progress Treatment Plan Continue Plan of Care Speech Short Term Goals Short Term Goals Short Term Goals 1) The patient will complete memory tasks related to her daily needs at 90% or greater with minimal cues. 2) The patient will complete safety awareness tasks related to her daily needs at 90% or greater with minimal cues. 3) The patient will complete problem solving tasks related to her daily needs at 90% or greater with minimal cues. Speech Residential Goals Residential Goals The patient will improve cognitive-communication necessary for safety and daily living tasks with minimal assist. Speech-Plan Patient/Family Goals Patient/Family Goals: Patient plans on returning home post rehab. Treatment Plan Speech Therapy Treatment Plan: Continue Plan of Care Patient was slightly more alert today. Treatment Duration: Sep 30, 2019 Frequency: 5 times per week Estimated Hrs Per Day: .5 hour per day Rehab Potential: Fair Barriers to Learning: Patient has cognitive deficits Pt/Family Agrees to Plan: Yes Safety Risks/Education Teaching Recipient: Patient Teaching Methods: Demonstration, Discussion Response to Teaching: Verbalize Understanding, Return Demonstration, Reinforcement Needed Education Topics Provided: Continued safety and communication of wants/needs. Time Speech Therapy Time In: 09:30 Speech Therapy Time Out: 10:00 Total Billed Time: 30 Billed Treatment Time 1DONOVANPATRICK MEJIA Sep 22, 2019 10:20 POS
[2019-09-22] MEDS: SINEMET CR 50/200 (CARBIDOPA/LEVODOPA SA) TAB PO SCH ×3 (11:35→19:59)
--- NOTE | 2019-09-22 11:35 | Physical Therapy Daily Note ---
PT Daily Note-Current Subjective Patient in recliner pre tx, agrees to PT, has no complaints of pain. Patient has no dizziness and BP is 96/58 seated, patient stands and BP is 62/44. Patient goes to therapy gym in , no ambulation today. Appearance Patient in recliner post tx with nurse call, phone, tray, chair alarm on. Mental Status Patient Orientation: Person, Confused Transfers SCALE: Activities may be completed with or without assistive devices. 3-Vugmyustao-gjwithb completes the activity by him/herself with no assistance from a helper. 5-Set-up or Clean-up Assistance-helper sets up or cleans up; patient completes activity. [place] assists only prior to or following the activity. 4-Supervision or Touching Assistance-helper provides verbal cues and/or touching/steadying and/or contact guard assistance as patient completes activity. Assistance may be provided throughout the activity or intermittently. 3-Partial/Moderate Assistance-helper does LESS THAN HALF the effort. [place] lifts, holds or supports trunk or limbs, but provides less than half the effort. 2-Substantial/Maximal Assistance-helper does MORE THAN HALF the effort. [place] lifts or holds trunk or limbs and provides more than half the effort. 2-Rlcaaopnm-xjbetd does ALL the effort. Patient does none of the effort to complete the activity. Or, the assistance of 2 or more helpers is required for the patient to complete the activity. If activity was not attempted, code reason: 7-Patient Refused. 9-Not Applicable-not attempted and the patient did not perform the activity before the current illness, exacerbation or injury. 10-Not Attempted due to Environmental Limitations-(lack of equipment, weather restraints, etc.). 88-Not Attempted due to Medical Conditions or Safety Concerns. Sit to Stand (QC): 4 Chair/Htx-sb-Bmcjt Xfer(QC): 4 Wheelchair Training Does the Pt Use a Wheelchair?: Yes Wheel 150 ft (QC): 4 Type of Wheelchair: Manual SBA, cues for direction, 150'x2 Exercises Seated Therapy Exercises: Ankle pumps, Long arc quads, Hip flexion, Hip abd/add (with RTB and pillow) Seated Reps: 15 NuStep Minutes: 15 NuStep Workload: 5 Treatments WC mobility, transfers, LE strengthening Assessment Current Status: Poor Progress confusion, needs cues for direction and safety, cannot stand due to [place]. PT Short Term Goals Short Term Goals Time Frame: Sep 24, 2019 Roll Left & Right: 6 Sit to lyin Lying to sitting on side of be: 6 Sit to stand: 4 (SBA) Chair/pti-ij-bnaup transfer: 4 (SBA) Walk 10 feet: 4 (SBA) Walk 50 feet with two turns: 4 (SBA) Walk 150 feet: 4 (SBA) PT Diesel Powerplant Mechanic Helper Goals Diesel Powerplant Mechanic Helper Goals PT Senior Living Goals Time Frame: Oct 08, 2019 Roll Left & Right (QC): 6 Sit to Lying (QC): 6 Lying-Sitting on Side/Bed(QC): 6 Sit to Stand (QC): 6 Chair/Dyj-ej-Gchpq Xfer(QC): 6 Toilet Transfer (QC): 6 Car Transfer (QC): 6 Does the Patient Walk: Yes Walk 10 feet (QC): 6 Walk 50ft with 2 Turns (QC): 6 Walk 150 ft (QC): 6 Walking 10ft on Uneven Surface: 6 1 Step (curb) (QC): 4 4 Steps (QC): 4 12 Steps (QC): 88 Picking up an Object (QC): 6 Does the Pt use WC or Scooter?: No Type: N/A Type: N/A PT Plan Problem List Problem List: Activity Tolerance, Functional Strength, Safety, Balance, Gait, Transfer, ROM Treatment/Plan Treatment Plan: Continue Plan of Care Treatment Plan: Education, Functional Activity [place], Functional Strength, Group Therapy, Gait, Safety, Therapeutic Exercise, Transfers Treatment Duration: Oct 08, 2019 Frequency: At least 5 of 7 days/Wk (IRF) Estimated Hrs Per Day: 1.5 hours per day Patient and/or Family Agrees t: Yes Safety Risks/Education Patient Education: Transfer Techniques, Correct Positioning, W/C Management, Safety Issues Teaching Recipient: Patient Teaching Methods: Demonstration, Discussion Response to Teaching: Reinforcement Needed Time/GCodes Time In: 1000 Time Out: 1100 Total Billed Treatment Time: 60 Total Billed Treatment 1 visit EX 30' WCH 20' FA 10' FABRICIO ALFONSO PT Sep 22, 2019 11:35 POS
[2019-09-22] MEDS: LACTULOSE SYRUP 10GM/15ML (ENULOSE) 30ML UDC PO SCH ×2 (11:36→20:00)
[2019-09-22] MEDS: GABAPENTIN 300 MG (NEURONTIN) CAP PO SCH ×2 (11:36→20:00)
[2019-09-22] MEDS: PANTOPRAZOLE 40 MG (PROTONIX) TAB PO SCH (11:37)
[2019-09-22] MEDS: CLOPIDOGREL 75 MG (PLAVIX) TABLET PO SCH (11:37)
[2019-09-22] MEDS: SENNA W/DOCUSATE (SENOKOT S) TABLET PO SCH ×2 (11:37→20:00)
[2019-09-22] MEDS: AMIODARONE 200 MG (CORDARONE) TAB PO SCH (11:37)
[2019-09-22] MEDS: POLYETHYLENE GLYCOL 17 GM (MIRALAX) PACK PO SCH ×2 (11:37→19:59)
[2019-09-22] MEDS: TAMSULOSIN 0.4 MG (FLOMAX) CAP PO SCH ×2 (11:37→20:00)
--- NOTE | 2019-09-22 11:50 | Occupational Ther Daily Note ---
OT Current Status-Daily Note Subjective Pt seen in recliner, agreeable to OT tx session. Pt denies pain, states fatigue. ADL-Treatment Therapy Code Descriptions/Definitions Functional [place] Measure: 0=Not Assessed/NA 4=Minimal Assistance 1=Total Assistance 5=Supervision or Setup 2=Maximal Assistance 6=Modified [place] 3=Moderate Assistance 7=Complete IndependenceSCALE: Activities may be completed with or without assistive devices. 0-Zmiyylskkt-fvfickh completes the activity by him/herself with no assistance from a helper. 5-Set-up or Clean-up Assistance-helper sets up or cleans up; patient completes activity. [place] assists only prior to or following the activity. 4-Supervision or Touching Assistance-helper provides verbal cues and/or touching/steadying and/or contact guard assistance as patient completes activity. Assistance may be provided throughout the activity or intermittently. 3-Partial/Moderate Assistance-helper does LESS THAN HALF the effort. [place] lifts, holds or supports trunk or limbs, but provides less than half the effort. 2-Substantial/Maximal Assistance-helper does MORE THAN HALF the effort. [place] lifts or holds trunk or limbs and provides more than half the effort. 6-Qgzfwaozt-gdczzw does ALL the effort. Patient does none of the effort to complete the activity. Or, the assistance of 2 or more helpers is required for the patient to complete the activity. If activity was not attempted, code reason: 7-Patient Refused. 9-Not Applicable-not attempted and the patient did not perform the activity before the current illness, exacerbation or injury. 10-Not Attempted due to Environmental Limitations-(lack of equipment, weather restraints, etc.). 88-Not Attempted due to Medical Conditions or Safety Concerns. Oral Hygiene (QC): 4 (Pt wheeled into bathroom in w/c, completes sit to stand to FWW in front of sink. Pt completes oral hygiene with SBA-CGA.) Shower/Bathe Self (QC): 4 (Pt completes UB washing with min A for back, completes arms and torso with s/u.) Upper Body Dressing (QC): 5 (Pt requires cues for intiation of donning and donning shirts. Able to complete) Other Treatment Pt seen in recliner; pt's vitals assessed in seated: 113/54 and in standin/46. Pt's nurse notified of BP status. Pt completes UB washing/ dressing in chair. Pt agrees to laundry and tooth brushing. Pt wheeled to laundry room in w/c, sit to stand to FWW placed in front of washer. Pt stands, able to stand for ~15 seconds, states need to sit. Pt returns to sit, hand on head. Pt denies lightheadedness. Pt's laundry completed with TD, returns to recliner chair in room with cues to push up from w/c in sit>stand and bring hands back to sit slowly in sitting. Pt's nurse present. Pt directed to complete 2 theraband exercises from memory. pt unable to complete task, required demonstration of each exercise. Pt completes 10 reps of 2 exercises with continued cues for counting reps and positioning. Pt left in recliner with call light in reach, chair alarm on, all needs met, nursing present. Education OT Patient Education: Correct positioning, Home exercise program, Modified ADL techniques, Safety issues, Transfer techniques Teaching Recipient: Patient Teaching Methods: Demonstration, Discussion Response to Teaching: Return Demonstration, Reinforcement Needed OT Short Term Goals Short Term Goals Time Frame: Sep 26, 2019 Toileting hygiene: 4 (met) Lower body dressin (met) Putting on/taking off footwear: 4 OT Chrome Cleaner Goals Fdc Goals Time Frame: Oct 04, 2019 Eating (QC): 5 Oral Hygiene (QC): 5 Toileting Hygiene (QC): 5 Shower/Bathe Self (QC): 5 Upper Body Dressing (QC): 5 (met) Lower Body Dressing (QC): 5 On/Off Footwear (QC): 5 Additional Goals: 1-Demonstrate ADL Tasks, 2-Verbalize Understanding, 3- ImproveStrength/Nav[place] 1=Demonstrate adherence to instructed precautions during ADL tasks. 2=Patient will verbalize/demonstrate understanding of assistive device s/modifications for ADL. 3=Patient will improve strength/tolerance for activity to enable patient to perform ADL's. OT Education/Plan Problem List/Assessment Assessment: Decreased Activ Tolerance, Decreased Safety Aware, Decreased UE Strength, Impaired Cognition, Impaired Funct Balance, Impaired I ADL's, Impaired Self-Care Skills Pt would benefit from skilled OT to increase his independence with basic self care to allow him to safely return home and decrease risk of falling. Discharge Recommendations Plan/Recommendations: Continue POC Treatment Plan/Plan of Care Treatment,Training & Education: Yes Patient would benefit from OT for education, treatment and training to promote independence in ADL's, mobility, safety and/or upper extremity function for ADL's. Plan of Care: ADL Retraining, Functional Mobility, Group Exercise/Act as Ind (education, exercise, activity tolerance, functional mobility, socialization, memory), UE Funct Exercise/Act, UE Neuromus Re-Ed/Coord Treatment Duration: Oct 04, 2019 Frequency: At least 5 of 7 days/Wk (IRF) Estimated Hrs Per Day: 1.5 hours per day (1.25 to 1.5) Agreement: Yes Rehab Potential: Fair Time/GCodes Start Time: 11:00 Stop Time: 11:45 Total Time Billed (hr/min): 45 Billed Treatment Time 1, ADL 2 (30), FA (15)= 45 TYRA ALEJO OTR Sep 22, 2019 11:50 POS
--- NOTE | 2019-09-22 12:03 | Progress Note - Urology ---
Progress Note-Urology Progress Notes/Assess & Plan Progress/Assessment & Plan NO VOIDING YET. PVR 525CC. PLAN 1. GIVE FLOMAX 0.4 BID 2. INCREASE URECHOLINE TO 50 AC & HS Final Diagnosis URINE RETENTION EVERTON GARCIA MD Sep 22, 2019 12:03 POS
--- NOTE | 2019-09-22 14:10 | NUR ---
Weekly Team Conference Visited with spouse Manisha by phone to summarize team reports regarding patient progress. She understands that patient's target discharge date is 09/28/19, patient and spouse in agreement to continued stay for rehab services. She said the current plan is that their son Bull Nassar, one of their 4 children, will come stay with them for a period of time when patient is released home. Manisha works multimedia instructional designer at the office of Dr. Mando Damon and Bull has an employment that would allow him to work from their home while staying with patient. HHC: Recommended for RN, PT, OT. DME: Manisha confirms patient has multi DME established as earlier noted and does not anticipate any new needs at this time unless therapists recommend. Continue intermittent reviews and discharge planning. Addendum: 09/22/19 at 1423 by MARIO JACKSON SS Contacts: Manisha Cesario, spouse (Requested that Registration correct facesheet.) Home: cady Felix Business: [phone] Nic Silvestredenise cady [employer] Unknown Sheyla Giraldo, daughter @ [facility] [phone]
--- NOTE | 2019-09-22 14:23 | Physical Therapy Daily Note ---
PT Daily Note-Current Subjective Patient in recliner pre tx, sleeping, after waking states he has no pain. Patient is very drowsy, agrees to seated exercises. States he doesn't want to get back into bed. Appearance Patient in recliner post tx with nurse call, phone, tray, legs elevated. Mental Status Patient Orientation: Person, Confused Transfers SCALE: Activities may be completed with or without assistive devices. 9-Uxmnwyxsap-hjmbspm completes the activity by him/herself with no assistance from a helper. 5-Set-up or Clean-up Assistance-helper sets up or cleans up; patient completes activity. [place] assists only prior to or following the activity. 4-Supervision or Touching Assistance-helper provides verbal cues and/or touching/steadying and/or contact guard assistance as patient completes activity. Assistance may be provided throughout the activity or intermittently. 3-Partial/Moderate Assistance-helper does LESS THAN HALF the effort. [place] lifts, holds or supports trunk or limbs, but provides less than half the effort. 2-Substantial/Maximal Assistance-helper does MORE THAN HALF the effort. [place] lifts or holds trunk or limbs and provides more than half the effort. 1-Gkirugzdp-qvtdpo does ALL the effort. Patient does none of the effort to complete the activity. Or, the assistance of 2 or more helpers is required for the patient to complete the activity. If activity was not attempted, code reason: 7-Patient Refused. 9-Not Applicable-not attempted and the patient did not perform the activity b efore the current illness, exacerbation or injury. 10-Not Attempted due to Environmental Limitations-(lack of equipment, weather restraints, etc.). 88-Not Attempted due to Medical Conditions or Safety Concerns. Exercises Seated Therapy Exercises: Ankle pumps, Long arc quads (alternating for 5 min), Hip flexion, Hip abd/add Treatments LE exercise Assessment Current Status: Fair Progress no difficulty performing exercises, followed directions better. PT Short Term Goals Short Term Goals Time Frame: Sep 24, 2019 Roll Left & Right: 6 Sit to lyin Lying to sitting on side of be: 6 Sit to stand: 4 (SBA) Chair/qyo-zt-caoht transfer: 4 (SBA) Walk 10 feet: 4 (SBA) Walk 50 feet with two turns: 4 (SBA) Walk 150 feet: 4 (SBA) PT Coroner'S Juror Goals Coroner'S Juror Goals PT Custodial Goals Time Frame: Oct 08, 2019 Roll Left & Right (QC): 6 Sit to Lying (QC): 6 Lying-Sitting on Side/Bed(QC): 6 Sit to Stand (QC): 6 Chair/Ekx-sg-Gwskb Xfer(QC): 6 Toilet Transfer (QC): 6 Car Transfer (QC): 6 Does the Patient Walk: Yes Walk 10 feet (QC): 6 Walk 50ft with 2 Turns (QC): 6 Walk 150 ft (QC): 6 Walking 10ft on Uneven Surface: 6 1 Step (curb) (QC): 4 4 Steps (QC): 4 12 Steps (QC): 88 Picking up an Object (QC): 6 Does the Pt use WC or Scooter?: No Type: N/A Type: N/A PT Plan Problem List Problem List: Activity Tolerance, Functional Strength, Safety, Balance, Gait, Transfer, ROM Treatment/Plan Treatment Plan: Continue Plan of Care Treatment Plan: Education, Functional Activity Navya, Functional Strength, Group Therapy, Gait, Safety, Therapeutic Exercise, Transfers Treatment Duration: Oct 08, 2019 Frequency: At least 5 of 7 days/Wk (IRF) Estimated Hrs Per Day: 1.5 hours per day Patient and/or Family Agrees t: Yes Safety Risks/Education Patient Education: Correct Positioning, Safety Issues Teaching Recipient: Patient Teaching Methods: Demonstration, Discussion Response to Teaching: Reinforcement Needed Time/GCodes Time In: 1400 Time Out: 1415 Total Billed Treatment Time: 15 Total Billed Treatment 1 visit EX FABRICIO AMARAL PT Sep 22, 2019 14:23 POS
[2019-09-22] MEDS: DOCUSATE SODIUM 100 MG (COLACE) CAP PO SCH ×2 (15:46→20:00)
[2019-09-22 16:00] VITALS: BP 150/61
[2019-09-22] MEDS: RIVAROXABAN 20 MG TABLET (XARELTO) PO SCH (17:13)
--- NOTE | 2019-09-22 18:30 | NUR ---
Bladder Scan 397. Will discuss with oncoming shift.
[2019-09-22] MEDS: ASPIRIN E.C. 81 MG (ECOTRIN) TAB PO SCH (19:59)
[2019-09-22] MEDS: MELATONIN 3 MG TABLET PO PRN (20:00)
[2019-09-22] MEDS: meTOprolol TARTRATE 25 MG (LOPRESSOR) TABLET PO SCH (20:01)
[2019-09-23] MEDS: CATHETER FLUSH 10 ML SYR IV SCH ×3 (05:16→21:37)
[2019-09-23] MEDS: BETHANECHOL 25 MG (URECHOLINE) TAB PO SCH ×4 (05:16→21:28)
--- NOTE | 2019-09-23 05:53 | NUR ---
Pt found sitting in floor in bathroom in front of toilet. Pt had been in bed at 0530 with lab in room drawing blood when this RN last saw pt. equip tech left pt in bed with the two bottom rails down when labd draw completle as well bed alarm off. No c/o's pain or discomfort. No injury noted. Dr. Escalante notified and will notify when she gets here this morning.
[2019-09-23 05:57] LABS: HEMOGLOBIN 10.6 G/DL (13.3-17.7); MEAN PLATELET VOLUME 11.1 FL (7.4-10.4); RED CELL DISTRIBUTION WIDTH 13.1 % (10.0-14.5)
[2019-09-23] MEDS: inSUlin ASPART (NovoLOG) 1 UNIT/0.01 ML (CHARGE PER UNIT) SC SCH ×4 (06:16→21:36)
[2019-09-23 06:20] LABS: BUN/CREATININE RATIO 24; CALCIUM 9.2 MG/DL (8.5-10.1); CARBON DIOXIDE 21 MMOL/L (21-32); CHLORIDE 105 MMOL/L (98-107); CREATININE SERUM 0.88 MG/DL (0.60-1.30); GFR ESTIMATED > 60; GLUCOSE 128 MG/DL (70-105); POTASSIUM 4.2 MMOL/L (3.6-5.0); SODIUM 136 MMOL/L (135-145)
[2019-09-23 06:25] VITALS: BP 179/77
--- NOTE | 2019-09-23 06:33 | NUR ---
Phoned to Manisha to notify her of pt's fall. No answer at this time. Will pass on to next shift.
--- NOTE | 2019-09-23 06:35 | NUR ---
Manisha returned my phone call and was informed of fall. No new concerns at this time.
--- NOTE | 2019-09-23 07:39 | Progress Note ---
Subjective Time Seen by a Provider: 07:34 Subjective/Events-last exam Patient fell and hurt his lumbar area. X-ray lumbar region. Patient taken off amiodarone and Lopressor. Blood pressure going up. Monitoring orthostatic hypotension Objective Exam Vital Signs Date Time Temp Pulse Resp B/P (MAP) Pulse Ox O2 Delivery O2 Flow Rate FiO2 09/23/19 06:25 36.4 65 18 179/77 (111) 98 Room Air 09/22/19 20:51 Room Air 09/22/19 16:00 36.4 65 16 150/61 (90) 98 Room Air 09/22/19 09:00 Room Air I & O 09/23/19 07:00 Intake Total 1295 ml Output Total 850 ml Balance 445 ml Capillary Refill : General Appearance: No Apparent Distress, WD/WN HEENT: Normal ENT Inspection Neck: Full Range of Motion, Normal Inspection Respiratory: Lungs Clear, No Accessory Muscle Use, No Respiratory Distress Cardiovascular: Regular Rate, Rhythm, No Murmur Gastrointestinal: non tender, soft Results Lab Laboratory Tests 09/23/19 05:25 Laboratory Tests 09/22/19 10:48: Glucometer 191H 09/22/19 16:11: Glucometer 367H 09/22/19 20:55: Glucometer 364H 09/23/19 05:25: White Blood Count 9.0, Red Blood Count 3.44L, Hemoglobin 10.6L, Hematocrit 32L, Mean Corpuscular Volume 92, Mean Corpuscular Hemoglobin 31, Mean Corpuscular Hemoglobin Concent 34, Red Cell Distribution Width 13.1, Platelet Count 188, Mean Platelet Volume 11.1H, Sodium Level 136, Potassium Level 4.2, Chloride Level 105, Carbon Dioxide Level 21, Anion Gap 10, Blood Urea Nitrogen 21H, Creatinine 0.88, Estimat Glomerular Filtration Rate > 60, BUN/Creatinine Ratio 24, Glucose Level 128H, Calcium Level 9.2 09/23/19 05:54: Glucometer 151H Assessment/Plan Assessment/Plan Assess & Plan/Chief Complaint Parkinson disease. Hypoglycemia. Hypertension. Weakness. Debility. Dementia.. . 09/20/19. Parkinson disease. Hypoglycemia. Hypertension. Weakness. Debility. Dementia. Pseudoaneurysm of left femoral artery. . 09/21/19. Parkinson disease. Diabetes. Orthostatic hypertension. Hypertension. Weakness improving. Debility improving. Dementia. Pseudoaneurysm of the left femoral artery small. . 09/22/19. Parkinson disease. Orthostatic hypotension. Diabetes. History of hypertension. Weakness. Debility. Dementia. Pseudoaneurysm of the left femoral artery small. . 09/23/19. Parkinson disease. Orthostatic hypotension. Lumbar pain due to 4. Diabetes. Hypertension. Weakness. Debility. Demented. Small pseudoaneurysm of the left femoral artery. Patient alert and eating good this morning Clinical Quality Measures DVT/VTE Risk/Contraindication: Risk Factor Score Per Nursin RFS Level Per Nursing on Admit: 4+=Very High DENIZ KENT DO Sep 23, 2019 07:39 POS
--- NOTE | 2019-09-23 08:59 | Occupational Ther Daily Note ---
OT Current Status-Daily Note Subjective Pt seen in bed, awake. Pt agreeable to OT tx session, states no pain. Pt states he is "tired" after 15 minutes of therapy. Agreeable to bed exercises. ADL-Treatment Therapy Code Descriptions/Definitions Functional [place] Measure: 0=Not Assessed/NA 4=Minimal Assistance 1=Total Assistance 5=Supervision or Setup 2=Maximal Assistance 6=Modified [place] 3=Moderate Assistance 7=Complete IndependenceSCALE: Activities may be completed with or without assistive devices. 5-Lvvkchmmaz-onxoopq completes the activity by him/herself with no assistance from a helper. 5-Set-up or Clean-up Assistance-helper sets up or cleans up; patient completes activity. [place] assists only prior to or following the activity. 4-Supervision or Touching Assistance-helper provides verbal cues and/or touching/steadying and/or contact guard assistance as patient completes activity. Assistance may be provided throughout the activity or intermittently. 3-Partial/Moderate Assistance-helper does LESS THAN HALF the effort. [place] lifts, holds or supports trunk or limbs, but provides less than half the effort. 2-Substantial/Maximal Assistance-helper does MORE THAN HALF the effort. [place] lifts or holds trunk or limbs and provides more than half the effort. 5-Asvonlzpl-huznae does ALL the effort. Patient does none of the effort to complete the activity. Or, the assistance of 2 or more helpers is required for the patient to complete the activity. If activity was not attempted, code reason: 7-Patient Refused. 9-Not Applicable-not attempted and the patient did not perform the activity before the current illness, exacerbation or injury. 10-Not Attempted due to Environmental Limitations-(lack of equipment, weather restraints, etc.). 88-Not Attempted due to Medical Conditions or Safety Concerns. Eating (QC): 6 Oral Hygiene (QC): 7 Shower/Bathe Self (QC): 7 Upper Body Dressing (QC): 5 Lower Body Dressing (QC): 3 (Pt changes into sweat pants- pt completed laundry routine previous day. No clean clothes in closet, pt states may have taken clothing home. Nursing notified of missing/ potentially sent home clothing items. Pt requires mod A to thread BLE through pants. Pt able to pull to knees and past hips with SBA.) Other Treatment Pt's vitals assessed in bed: 115/63; completes EOB activity with decreased energy on this date. EOB vitals assessed: BP 68/39. Nursing notified. Pt agreeable to in-bed exercises. Pt completes 15 reps of bicep curls, shoulder flexion, and back flies. Pt agrees to complete EOB exercises before returning to bed (pt declines OOB activity/ sitting in recliner chair). Pt completes bicep curls and triceps (10 reps) EOB. Vitals assessed EOB: 92/54. Pt returns to bed, requires assist to align shoulders/ hips due to fatigue. Pt left with call light in reach, all needs met, bed alarm on. Education OT Patient Education: Correct positioning, Exercise program, Home exercise program Teaching Recipient: Patient Teaching Methods: Demonstration, Discussion Response to Teaching: Verbalize Understanding, Return Demonstration, Reinforcement Needed OT Short Term Goals Short Term Goals Time Frame: Sep 26, 2019 Toileting hygiene: 4 (met) Lower body dressin (met) Putting on/taking off footwear: 4 OT Skilled Nursing Goals Skilled Nursing Goals Time Frame: Oct 04, 2019 Eating (QC): 5 (met) Oral Hygiene (QC): 5 Toileting Hygiene (QC): 5 Shower/Bathe Self (QC): 5 Upper Body Dressing (QC): 5 (met) Lower Body Dressing (QC): 5 On/Off Footwear (QC): 5 Additional Goals: 1-Demonstrate ADL Tasks, 2-Verbalize Understanding, 3- ImproveStrength/[place] 1=Demonstrate adherence to instructed precautions during ADL tasks. 2=Patient will verbalize/demonstrate understanding of assistive devices/modifications for ADL. 3=Patient will improve strength/tolerance for activity to enable patient to perform ADL's. OT Education/Plan Problem List/Assessment Assessment: Decreased Activ Tolerance, Decreased Safety Aware, Decreased UE Strength, Dependent Transfers, Impaired Cognition, Impaired Funct Balance, Impaired I ADL's, Impaired Self-Care Skills Pt would benefit from skilled OT to increase his independence with basic self care to allow him to safely return home and decrease risk of falling. Discharge Recommendations Plan/Recommendations: Continue POC Treatment Plan/Plan of Care Treatment,Training & Education: Yes Patient would benefit from OT for education, treatment and training to promote independence in ADL's, mobility, safety and/or upper extremity function for ADL's. Plan of Care: ADL Retraining, Functional Mobility, Group Exercise/Act as Ind (education, exercise, activity tolerance, functional mobility, socialization, memory), UE Funct Exercise/Act, UE Neuromus Re-Ed/Coord Treatment Duration: Oct 04, 2019 Frequency: At least 5 of 7 days/Wk (IRF) Estimated Hrs Per Day: 1.5 hours per day (1.25 to 1.5) Agreement: Yes Rehab Potential: Fair Time/GCodes Start Time: 08:00 Stop Time: 09:00 Total Time Billed (hr/min): 60 Billed Treatment Time 1, ADL 2 (30), EX 2 (30)= 60 TYRA ALEJO OTR Sep 23, 2019 08:59 POS
[2019-09-23] MEDS: POLYETHYLENE GLYCOL 17 GM (MIRALAX) PACK PO SCH ×2 (09:00→21:30)
[2019-09-23] MEDS: SINEMET CR 50/200 (CARBIDOPA/LEVODOPA SA) TAB PO SCH ×3 (09:01→21:28)
[2019-09-23] MEDS: AMIODARONE 200 MG (CORDARONE) TAB PO SCH (09:01)
[2019-09-23] MEDS: GABAPENTIN 300 MG (NEURONTIN) CAP PO SCH ×2 (09:02→21:28)
[2019-09-23] MEDS: PANTOPRAZOLE 40 MG (PROTONIX) TAB PO SCH (09:02)
[2019-09-23] MEDS: CLOPIDOGREL 75 MG (PLAVIX) TABLET PO SCH (09:02)
[2019-09-23] MEDS: DOCUSATE SODIUM 100 MG (COLACE) CAP PO SCH ×2 (09:02→21:27)
[2019-09-23] MEDS: TAMSULOSIN 0.4 MG (FLOMAX) CAP PO SCH ×2 (09:02→21:29)
[2019-09-23] MEDS: LACTULOSE SYRUP 10GM/15ML (ENULOSE) 30ML UDC PO SCH ×2 (09:03→21:28)
[2019-09-23] MEDS: SENNA W/DOCUSATE (SENOKOT S) TABLET PO SCH ×2 (09:37→21:28)
--- NOTE | 2019-09-23 10:42 | Progress Note ---
DENY GAITAN,MED STUDENT 09/23/19 1042: Progress Note Patient fell this morning in the bathroom but denies significant injury. He did complain of some back pain and a lumbar x-ray was ordered by Dr. Damon. His Patel was discontinued yesterday for a trial of void. He had a post-void residual of 500 cc requiring in and out cath. Dr. Villanueva managing. Cardiology following for orthostatic hypotension and L groin pseudoaneurysm. Metoprolol and amiodarone held and they will repeat groin ultrasound in 2 weeks. His last bowel movement was on 09/19 so he will get a suppository today. OT and PT is going well but state he is sometimes quick to fatigue. Patient is a poor historian but noted no other complaints or concerns at this time. Goal discharge date is still 09/28/19. MARIA T GILLESPIE DO 09/24/19 0752: Supervisory-Addendum Brief Verification & Attestation Participated in pt care: history, MDM, physical Personally performed: exam, history, MDM, supervision of care Care discussed with: Medical Student Procedures: n/a Results interpretation: Verified all documentation Verification and Attestation of Medical Student E/M Service A medical student performed and documented this service in my presence. I reviewed and verified all information documented by the medical student and made modifications to such information, when appropriate. I personally performed the physical exam and medical decision making. Maria T Gillespie, Sep 24, 2019,07:52 DENY GAITAN,MED STUDENT Sep 23, 2019 10:42 MARIA T ARZATE DO Sep 24, 2019 07:52 POS
--- NOTE | 2019-09-23 10:53 | PM&R Progress Note ---
Subjective HPI/CC On Admission Date Seen by Provider: Sep 23, 2019 Time Seen by Provider: 09:30 Subjective/Events-last exam Had a fall earlier this morning when lab left lower bed rails down No injury reported but he did report back pain to his primary care provider so L-spine x-ray was ordered Sugars remain high Bowels will be aggressively treated with suppository and enemas due to high risk for megacolon due to Parkinson's Requiring straight in and out caths per Dr. Villanueva Conferred with RN Reviewed therapy notes Check meds and labs Check meds and labs Reviewed therapy notes Conferred with hydraulic plumber helper of Systems General: Fatigue Gastrointestinal: Constipation Genitourinary: Retention Neurological: Weakness, Numbness, Incoordination Objective Exam Vital Signs Vital Signs Date Time Temp Pulse Resp B/P (MAP) Pulse Ox O2 Delivery O2 Flow Rate FiO2 09/24/19 06:15 36.5 60 16 152/71 (98) 96 Room Air Capillary Refill : General Appearance: No Apparent Distress, WD/WN, Chronically ill HEENT: PERRL/EOMI, Normal ENT Inspection, Pharynx Normal Neck: Full Range of Motion, Normal Inspection, Non Tender, Supple Respiratory: Chest Non Tender, Lungs Clear, No Accessory Muscle Use, No Re spiratory Distress Cardiovascular: Regular Rate, Rhythm, No Edema, No Gallop, No JVD, No Murmur Gastrointestinal: Normal Bowel Sounds, No Organomegaly, No Pulsatile Mass, Non Tender, Soft Back: Normal Inspection, No CVA Tenderness, No Vertebral Tenderness Extremity: Normal Capillary Refill, Normal Inspection, Normal Range of Motion, Non Tender, No Calf Tenderness, No Pedal Edema Neurologic/Psychiatric: Alert, Oriented x3, No Motor/Sensory Deficits (weakness 4/5 legs, falls risk), Normal 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 FIM Transfers Therapy Code Descriptions/Definitions Functional [place] Measure: 0=Not Assessed/NA 4=Minimal Assistance 1=Total Assistance 5=Supervision or Setup 2=Maximal Assistance 6=Modified [place] 3=Moderate Assistance 7=Complete IndependenceSCALE: Activities may be completed with or without assistive devices. 4-Hfonqorowg-gfczwgu completes the activity by him/herself with no assistance from a helper. 5-Set-up or Clean-up Assistance-helper sets up or cleans up; patient completes activity. [place] assists only prior to or following the activity. 4-Supervision or Touching Assistance-helper provides verbal cues and/or touching/steadying and/or contact guard assistance as patient completes activity. Assistance may be provided throughout the activity or intermittently. 3-Partial/Moderate Assistance-helper does LESS THAN HALF the effort. [place] lifts, holds or supports trunk or limbs, but provides less than half the effort. 2-Substantial/Maximal Assistance-helper does MORE THAN HALF the effort. [place] lifts or holds trunk or limbs and provides more than half the effort. 6-Hcdypdktr-xjoauh does ALL the effort. Patient does none of the effort to complete the activity. Or, the assistance of 2 or more helpers is required for the patient to complete the activity. If activity was not attempted, code reason: 7-Patient Refused. 9-Not Applicable-not attempted and the patient did not perform the activity before the current illness, exacerbation or injury. 10-Not Attempted due to Environmental Limitations-(lack of equipment, weather restraints, etc.). 88-Not Attempted due to Medical Conditions or Safety Concerns. Roll Left to Right (QC): 5 Sit to Lying (QC): 5 Sit to Stand (QC): 4 Chair/Qhm-bg-Utzox Xfer(QC): 4 Car Transfer (QC): 4 Gait Training Does the Patient Walk?: Yes Distance: 200' Walk 10 feet (QC): 4 Walk 50 ft with 2 Turns(QC): 4 Walk 150 ft (QC): 4 Walking 10ft/uneven surface-QC: 4 Gait Persons Needed: 1 Gait Assistive Device: FWW Wheelchair Training Does the Pt Use a Wheelchair?: Yes Wheel 50 ft with 2 turns (QC): 9 Wheel 150 ft (QC): 4 Type of Wheelchair: Manual Stair Training #of Steps: 1 1 Step (curb) (QC): 4 4 Steps (QC): 88 12 Steps (QC): 88 Balance Picking up an Object (QC): 4 ADL-Treatment Eating (QC): 6 Oral Hygiene (QC): 7 Shower/Bathe Self (QC): 7 Upper Body Dressing (QC): 5 Lower Body Dressing (QC): 3 (Pt changes into sweat pants- pt completed laundry routine previous day. No clean clothes in closet, pt states may have taken clothing home. Nursing notified of missing/ potentially sent home clothing items. Pt requires mod A to thread BLE through pants. Pt able to pull to knees and past hips with SBA.) On/Off Footwear (QC): 3 (Help to put socks on but able to take them off with initiation cues) Toileting Hygiene (QC): 4 (Pt requires mod A for righting self, requires sit to EOB during bottom hygiene. When asked if weak/ lightheaded pt states, "A little bit." Pt returns to stance after 2 min rest break, completes with CGA.) Toilet Transfer (QC): 4 (CGA, supervision, cues for hand placement) Assessment/Plan Assessment and Plan Assess & Plan/Chief Complaint Assessment: Parkinson's disease Falls Abrasion on back AF PVD CAD Urinary retention now palmer DC per Urology Chronic constipation Dementia Left pseudoaneurysm from peripheral procedure 1 month ago Fall without injury Plan: IRF protocol BM regimen Palmer cath DC per Dr Villanueva Pseudoaneurysm management not critical Fall risk (1) Parkinsons disease (2) Dementia (3) Orthostasis (4) Labile hypertension (5) Falls frequently (6) Urinary retention (7) Constipation (8) DM (9) Obstructive sleep apnea of adult Status: Acute (10) PAD (peripheral artery disease) Status: Acute JULIA GILLESPIE DO Sep 23, 2019 10:53 POS
--- NOTE | 2019-09-23 10:57 | Physical Therapy Daily Note ---
PT Daily Note-Current Subjective Pt. in bed, awakened to attempt Rx. Pt. minimally verbal, confused about where , when and situation. c/o pain in his back with movement Pain Comment: does not rate pain Mental Status Patient Orientation: Confused Transfers SCALE: Activities may be completed with or without assistive devices. 3-Bwznkbzlfx-qyocbrp completes the activity by him/herself with no assistance from a helper. 5-Set-up or Clean-up Assistance-helper sets up or cleans up; patient completes activity. [place] assists only prior to or following the activity. 4-Supervision or Touching Assistance-helper provides verbal cues and/or touching/steadying and/or contact guard assistance as patient completes activity. Assistance may be provided throughout the activity or intermittently. 3-Partial/Moderate Assistance-helper does LESS THAN HALF the effort. [place] lifts, holds or supports trunk or limbs, but provides less than half the effort. 2-Substantial/Maximal Assistance-helper does MORE THAN HALF the effort. [place] lifts or holds trunk or limbs and provides more than half the effort. 4-Bbjhmrfpb-canxtz does ALL the effort. Patient does none of the effort to complete the activity. Or, the assistance of 2 or more helpers is required for the patient to complete the activity. If activity was not attempted, code reason: 7-Patient Refused. 9-Not Applicable-not attempted and the patient did not perform the activity before the current illness, exacerbation or injury. 10-Not Attempted due to Environmental Limitations-(lack of equipment, weather restraints, etc.). 88-Not Attempted due to Medical Conditions or Safety Concerns. Roll Left & Right (QC): 4 Sit to Lying (QC): 3 Lying to Sitting/Side of Bed(Q: 4 Sit to Stand (QC): 4 Chair/Nfj-od-Qffcp Xfer(QC): 3 pt. with low BP in sitting as well as c/o back pain required mod assist SPT chair to bed Gait Training Does the Patient Walk?: Yes Walk 10 feet (QC): 88 Walk 50 ft with 2 Turns(QC): 88 Walk 150 ft (QC): 88 Gait Persons Needed: 1 Gait Assistive Device: FWW very short distance bed to recliner approx 5 ft x2 with min assist. after up in recliner pt. required mod assist to bed with chair moved next to bed secondary to consistent low BP in sitting Exercises Supine Ex: Bridging, Ankle pumps, Quad Set, Rolling, Glut sets, Heel Slides, Short Arc Quads, Scooting, Straight leg raise, Hip abd/add Supine Reps: 15 (x2) Seated Therapy Exercises: Ankle pumps, Long arc quads, Hip flexion, Hip abd/add Seated Reps: 15 Treatments limited Rx secondary to low BP readings, pt. apparently had a fall this date in stance. Nurse notified of pts BP readings etc Assessment Current Status: Fair Progress seated BPs : upon initially sitting up: 97/49, after 8 mins up 79/50, 15m up: 80/47, pt. was then SPT TRFd to bed dance fashion PT Short Term Goals Short Term Goals Time Frame: Sep 24, 2019 Roll Left & Right: 6 Sit to lyin Lying to sitting on side of be: 6 Sit to stand: 4 (SBA) Chair/vcm-ii-snqhq transfer: 4 (SBA) Walk 10 feet: 4 (SBA) Walk 50 feet with two turns: 4 (SBA) Walk 150 feet: 4 (SBA) PT Medical Receptionist Biller Goals Jail Goals PT Jail Goals Time Frame: Oct 08, 2019 Roll Left & Right (QC): 6 Sit to Lying (QC): 6 Lying-Sitting on Side/Bed(QC): 6 Sit to Stand (QC): 6 Chair/Uxa-pv-Fkgjc Xfer(QC): 6 Toilet Transfer (QC): 6 Car Transfer (QC): 6 Does the Patient Walk: Yes Walk 10 feet (QC): 6 Walk 50ft with 2 Turns (QC): 6 Walk 150 ft (QC): 6 Walking 10ft on Uneven Surface: 6 1 Step (curb) (QC): 4 4 Steps (QC): 4 12 Steps (QC): 88 Picking up an Object (QC): 6 Does the Pt use WC or Scooter?: No Type: N/A Type: N/A PT Plan Treatment/Plan Treatment Plan: Continue Plan of Care (as tolerated) Treatment Plan: Education, Functional Activity Navya, Functional Strength, Group Therapy, Gait, Safety, Therapeutic Exercise, Transfers Treatment Duration: Oct 08, 2019 Frequency: At least 5 of 7 days/Wk (IRF) Estimated Hrs Per Day: 1.5 hours per day Patient and/or Family Agrees t: Yes Safety Risks/Education Patient Education: Transfer Techniques, Correct Positioning, Disease Process, Safety Issues Teaching Recipient: Patient Response to Teaching: Unable to Return Demonstration, Unable to Comprehend, Reinforcement Needed Time/GCodes Time In: 1000 Time Out: 1045 Total Billed Treatment Time: 45 Total Billed Treatment 1,FA20m,EX25m SANDEE BENNETT WOOD ROUTER Sep 23, 2019 10:56 POS
--- NOTE | 2019-09-23 12:17 | NUR ---
Bladder scan reviels 27cc in bladder after incontinent in bed. Addendum: 09/23/19 at 1224 by JACOB NESBITT RN Bladder scan 227cc
--- NOTE | 2019-09-23 12:55 | Speech Therapy Daily Note ---
Speech Daily Progress Note Subjective Date Seen by Provider: Sep 23, 2019 Time Seen by Provider: 00:30 Patient resting in his bed, pleasant however he is confused. Objective The patient completed simple q/a related to himself, however due to his confusion today he wasn't sure regarding his daily needs/routine. Assessment Assessment Current Status: Poor Progress Treatment Plan Continue Plan of Care Speech Short Term Goals Short Term Goals Short Term Goals 1) The patient will complete memory tasks related to her daily needs at 90% or greater with minimal cues. 2) The patient will complete safety awareness tasks related to her daily needs at 90% or greater with minimal cues. 3) The patient will complete problem solving tasks related to her daily needs at 90% or greater with minimal cues. Speech Steward/Stewardess Club Car Goals Shelter Goals The patient will improve cognitive-communication necessary for safety and daily living tasks with minimal assist. Speech-Plan Patient/Family Goals Patient/Family Goals: Patient's family plans on him returning post rehab. Treatment Plan Speech Therapy Treatment Plan: Continue Plan of Care Patient is making poor progress due to level of confusion. Treatment Duration: Sep 30, 2019 Frequency: 5 times per week Estimated Hrs Per Day: .5 hour per day Rehab Potential: Fair Barriers to Learning: Patient's decreased cognition and confusion level Pt/Family Agrees to Plan: Yes Safety Risks/Education Teaching Recipient: Patient Teaching Methods: Demonstration, Discussion Response to Teaching: Unable to Return Demonstration, Reinforcement Needed Education Topics Provided: Safety within his room and utilization of his call light. Time Speech Therapy Time In: 11:00 Speech Therapy Time Out: 11:30 Total Billed Time: 30 Billed Treatment Time 1, PATRICK Cleaning Sep 23, 2019 12:55 POS
--- NOTE | 2019-09-23 13:19 | Cardiology Progress Note ---
Subjective Date Seen by Provider: Sep 23, 2019 Time Seen by Provider: 13:18 Subjective/Events-last exam Patient is laying down in bed, no new complaint. Continue to monitor Review of Systems General: No Chills, No Night Sweats, No Fatigue, No Malaise, No Appetite, No Other HEENT: No Head Aches, No Visual Changes, No Eye Pain, No Ear Pain, No Dysphasia, No Sinus Congestion, No Post Nasal Drip, No Sore Throat, No Other Pulmonary: No Dyspnea, No Cough, No Pleuritic Chest Pain, No Other Cardiovascular: No: Chest Pain, Palpitations, Orthopnea, Paroxysmal Noc. Dyspnea, Edema, Lt Headedness, Other Objective-Cardiology Exam Last Set of Vital Signs Vital Signs 09/23/19 06:25 Temp 36.4 Pulse 65 Resp 18 B/P (MAP) 179/77 (111) Pulse Ox 98 O2 Delivery Room Air Capillary Refill : I&O Intake and Output 09/23/19 00:00 Intake Total 1020 ml Output Total 550 ml Balance 470 ml Intake Oral 1020 ml Output Urine Total 550 ml Bladder Scan Volume Amount 354 ml 513 ml 404 ml General: Alert, Cooperative, Other (confused) HEENT: Atraumatic, PERRLA Neck: Supple, No JVD, No Thyromegaly Lungs: Clear to Auscultation, Normal Air Movement Heart: Regular Rate, Normal S1, Normal S2, No Murmurs Abdomen: Normal Bowel Sounds, Soft, No Tenderness, No Hepatosplenomegaly, No Masses Extremities: No Clubbing, No Cyanosis, No Edema, No Tenderness/Swelling, Other (diminished pulse LLE, L groin bruit) Skin: No Rashes, No Breakdown, No Significant Lesion Neuro: Normal Gait, Normal Speech, Strength at 5/5 X4 Ext, Normal Tone, Sensation Intact Psych/Mental Status: Mental Status NL, Mood NL Results Lab Laboratory Tests 09/23/19 05:25 A/P-Cardiology Admission Diagnosis Parkinson disease Peripheral arterial disease Coronary artery disease Hypertension Assessment/Plan Change in mental status, generalized weakness and loss of energy, Parkinson disease, multiple falls, appears back to baseline Labile hypertension, has been having orthostatic hypotension. Baseline hypertension, cannot tolerate antihypertensive medication due to his severe orthostatic hypotension. 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 Severe Peripheral vascular disease, had nonhealing wound right lower extremity, underwent peripheral angiogram on August 17, 2019 revealing total occlusion of right SFA, successful angioplasty then deployment of 2 Supera stent 6150 and 6x100 with excellent results and flow. Severe disease at the distal posterior tibial artery proximal anterior tibial artery. Heavily calcified left SFA with multiple segments of moderate to severe disease with occluded anterior tibial artery. Patient is maintained on Plavix and aspirin. Wound to right lower extremity is healing. Patient has known severe disease on the left side, we will continue with conservative management unless patient becomes symptomatic due to his comorbidities. Currently not having any symptoms, does not have any ulceration to left lower extremity. Continue to monitor Sick sinus syndrome, history of episodes of bradycardia with complete heart block, frequent PVCs, ventricular bigeminy and ventricular couplets, short PAT's . 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 Continue to monitor Nonsustained ventricular tachycardia, has been maintained on amiodarone 200 mg daily. No recent arrhythmia on pacemaker interrogation, continue to monitor. Paroxysmal atrial fibrillation, maintained on Amiodarone, continue to monitor. [id number] score of 6, high risk, yearly risk of stroke without OAC is 9.8%. Maintained on Xarelto, continue to monitor Coronary artery disease, multiple interventions in the past, most recent cardiac catheterization done March 14, 2015 revealed extensive coronary artery disease, heavily calcified system, with 40 percent distal left main coronary artery stenosis. 3 stents in LAD proximally with 50-60 percent in-stent restenosis. Distal LAD had 95 percent stenosis followed by 80 percent stenosis long segment, very small artery not amendable to intervention. Total occlusion of the first obtuse marginal branch filled by collaterals. Patent stent in the proximal mid second OM branch with moderate disease in the distal proper circumflex artery. Patent stent in the RCA with 50 percent proximal right coronary artery stenosis and 50-60 distal right coronary artery stenosis. Asymptomatic, continue to monitor Stress test in July 2016 showed fixed defect involving the whole inferior wall and inferoapical segment with dilated left ventricle, inferior wall hypokinesia, Ejection fraction 54 percent. Echocardiogram showed ejection fraction 60 percent, dilated left atrium, mild to moderate mitral regurgitation and pulmonary artery pressure of 35 mmHg. continue to monitor, Hyperlipidemia, maintained on Crestor, continue to monitor lipids. History of CVA in 2010, mild residual right sided weakness, episodes of confusion occurred over the last year where patient became confused and drove over once to [place] and once to [place]. It was felt that it was a global ischemic attack with confusion, workup at that time was negative. He was seen by Dr. Jiménez and started on Dilantin, the dose was increased by Dr. Damon, followed and managed by primary care physician Congestive heart failure, EF 45-50 percent, as well as diastolic dysfunction per most recent 2-D echocardiogram done 2018, continue with current medication Diabetes mellitus, followed and managed by primary care physician Carotid stenosis, monitored by Dr. Simmons's office Dementia, managed by primary care physician. Ex-Tobaccoism, patient smokes pipe, he stopped smoking in October, encouraged to continue with smoking cessation Peripheral neuropathy, maintained on gabapentin. Continue on current medication, continue to monitor Sleep apnea, severe on sleep study in October 2015, does not use his machine. Clinical Quality Measures DVT/VTE Risk/Contraindication: Risk Factor Score Per Nursin RFS Level Per Nursing on Admit: 4+=Very High SEBASTIÁN VALLE MD Sep 23, 2019 1:19 pm POS
--- NOTE | 2019-09-23 15:05 | Physical Therapy Daily Note ---
PT Daily Note-Current Subjective Pt. lethargic, supine in bed. Transfers SCALE: Activities may be completed with or without assistive devices. 8-Dxuqinabbw-gfghsay completes the activity by him/herself with no assistance from a helper. 5-Set-up or Clean-up Assistance-helper sets up or cleans up; patient completes activity. [place] assists only prior to or following the activity. 4-Supervision or Touching Assistance-helper provides verbal cues and/or touching/steadying and/or contact guard assistance as patient completes activity. Assistance may be provided throughout the activity or intermittently. 3-Partial/Moderate Assistance-helper does LESS THAN HALF the effort. [place] lifts, holds or supports trunk or limbs, but provides less than half the effort. 2-Substantial/Maximal Assistance-helper does MORE THAN HALF the effort. [place] lifts or holds trunk or limbs and provides more than half the effort. 8-Bzewdfslj-ivyzir does ALL the effort. Patient does none of the effort to complete the activity. Or, the assistance of 2 or more helpers is required for the patient to complete the activity. If activity was not attempted, code reason: 7-Patient Refused. 9-Not Applicable-not attempted and the patient did not perform the activity before the current illness, exacerbation or injury. 10-Not Attempted due to Environmental Limitations-(lack of equipment, weather restraints, etc.). 88-Not Attempted due to Medical Conditions or Safety Concerns. Assessment Current Status: No Treatment/Other Tests pt. unable to participate in group or further therapies today secondary to orthostatic hypotensive episode, seated BPs 80s over 40s. Pt. to have echo. PT Short Term Goals Short Term Goals Time Frame: Sep 24, 2019 Roll Left & Right: 6 Sit to lyin Lying to sitting on side of be: 6 Sit to stand: 4 (SBA) Chair/tkz-yd-pippz transfer: 4 (SBA) Walk 10 feet: 4 (SBA) Walk 50 feet with two turns: 4 (SBA) Walk 150 feet: 4 (SBA) PT Fittings Tightener Goals Alf Goals PT Fittings Tightener Goals Time Frame: Oct 08, 2019 Roll Left & Right (QC): 6 Sit to Lying (QC): 6 Lying-Sitting on Side/Bed(QC): 6 Sit to Stand (QC): 6 Chair/Xsm-cd-Jlqge Xfer(QC): 6 Toilet Transfer (QC): 6 Car Transfer (QC): 6 Does the Patient Walk: Yes Walk 10 feet (QC): 6 Walk 50ft with 2 Turns (QC): 6 Walk 150 ft (QC): 6 Walking 10ft on Uneven Surface: 6 1 Step (curb) (QC): 4 4 Steps (QC): 4 12 Steps (QC): 88 Picking up an Object (QC): 6 Does the Pt use WC or Scooter?: No Type: N/A Type: N/A PT Plan Treatment/Plan Treatment Plan: Continue Plan of Care (as tolerated) Treatment Plan: Education, Functional Activity Navya, Functional Strength, Group Therapy, Gait, Safety, Therapeutic Exercise, Transfers Treatment Duration: Oct 08, 2019 Frequency: At least 5 of 7 days/Wk (IRF) Estimated Hrs Per Day: 1.5 hours per day Patient and/or Family Agrees t: Yes Time/GCodes Time In: 1250 Time Out: 1255 Total Billed Treatment Time: 0 Total Billed Treatment 1,no Rx, no chg SANDEE BENNETT MANUFACTURING ENGINEERING DIRECTOR Sep 23, 2019 15:05 POS
--- NOTE | 2019-09-23 15:12 | NUR ---
Initial visit: The pt is [employer] and a [facility] [place]. No contacts requested. The pt states his is his primary support and comfort. He welcomed prayer and expressed appreciation for our visit.
--- NOTE | 2019-09-23 15:27 | Diagnostic Imaging Report ---
INDICATION: Status post fall. Pain. TECHNIQUE: AP, lateral, and spot imaging of the lumbar spine. CORRELATION STUDY: None. FINDINGS: Examination is compromised by obtaining imaging in a sitting position. There is mild rightward lower lumbar and superior leftward curvature present. Some straightening of the normal lumbar lordotic curvature. There does appear to be slight loss of height at the T12 vertebral body, age indeterminate. The lumbar vertebral body heights overall appear to be fairly well maintained. Mild various degrees of disc space narrowing are noted. There is mild endplate lipping at the thoracolumbar junction. There is rather dense aortoiliac vascular calcification. Moderate severity fecal retention with stool throughout the colon. IMPRESSION: Mild compression deformity of T12 vertebral body. While age is indeterminate, this does appear to be suggested on previous chest radiograph and clinical correlation recommended. No definitive acute lumbar compression deformity. Dictated by: Dictated on workstation # [id number]
[2019-09-23] MEDS: RIVAROXABAN 20 MG TABLET (XARELTO) PO SCH (16:22)
[2019-09-23 18:12] VITALS: BP 106/58
[2019-09-23] MEDS: ASPIRIN E.C. 81 MG (ECOTRIN) TAB PO SCH (21:28)
[2019-09-23] MEDS: meTOprolol TARTRATE 25 MG (LOPRESSOR) TABLET PO SCH (21:29)
[2019-09-24] MEDS: BETHANECHOL 25 MG (URECHOLINE) TAB PO SCH ×4 (06:13→21:05)
[2019-09-24] MEDS: inSUlin ASPART (NovoLOG) 1 UNIT/0.01 ML (CHARGE PER UNIT) SC SCH ×4 (06:13→21:09)
[2019-09-24] MEDS: CATHETER FLUSH 10 ML SYR IV SCH ×3 (06:13→21:06)
[2019-09-24 06:15] VITALS: BP 152/71
[2019-09-24] MEDS: PANTOPRAZOLE 40 MG (PROTONIX) TAB PO SCH (09:46)
[2019-09-24] MEDS: AMIODARONE 200 MG (CORDARONE) TAB PO SCH (09:46)
[2019-09-24] MEDS: SENNA W/DOCUSATE (SENOKOT S) TABLET PO SCH ×2 (09:46→21:06)
[2019-09-24] MEDS: CLOPIDOGREL 75 MG (PLAVIX) TABLET PO SCH (09:47)
[2019-09-24] MEDS: SINEMET CR 50/200 (CARBIDOPA/LEVODOPA SA) TAB PO SCH ×3 (09:47→21:05)
[2019-09-24] MEDS: DOCUSATE SODIUM 100 MG (COLACE) CAP PO SCH ×2 (09:47→21:05)
[2019-09-24] MEDS: GABAPENTIN 300 MG (NEURONTIN) CAP PO SCH ×2 (09:47→21:05)
[2019-09-24] MEDS: LACTULOSE SYRUP 10GM/15ML (ENULOSE) 30ML UDC PO SCH ×2 (09:47→21:10)
[2019-09-24] MEDS: TAMSULOSIN 0.4 MG (FLOMAX) CAP PO SCH ×2 (09:47→21:05)
[2019-09-24] MEDS: POLYETHYLENE GLYCOL 17 GM (MIRALAX) PACK PO SCH ×2 (09:57→21:10)
--- NOTE | 2019-09-24 10:25 | Physical Therapy Daily Note ---
PT Daily Note-Current Subjective Pt resting in bed. Agreeable to PT. Pt denies pain, says he slept good last night. Transfers SCALE: Activities may be completed with or without assistive devices. 4-Igrpzrvfbm-nujcpoo completes the activity by him/herself with no assistance from a helper. 5-Set-up or Clean-up Assistance-helper sets up or cleans up; patient completes activity. [place] assists only prior to or following the activity. 4-Supervision or Touching Assistance-helper provides verbal cues and/or touching/steadying and/or contact guard assistance as patient completes activity. Assistance may be provided throughout the activity or intermittently. 3-Partial/Moderate Assistance-helper does LESS THAN HALF the effort. [place] lifts, holds or supports trunk or limbs, but provides less than half the effort. 2-Substantial/Maximal Assistance-helper does MORE THAN HALF the effort. [place] lifts or holds trunk or limbs and provides more than half the effort. 0-Jzmsjzzkg-qnbytp does ALL the effort. Patient does none of the effort to complete the activity. Or, the assistance of 2 or more helpers is required for the patient to complete the activity. If activity was not attempted, code reason: 7-Patient Refused. 9-Not Applicable-not attempted and the patient did not perform the activity before the current illness, exacerbation or injury. 10-Not Attempted due to Environmental Limitations-(lack of equipment, weather restraints, etc.). 88-Not Attempted due to Medical Conditions or Safety Concerns. Exercises Supine Ex: Ankle pumps, Quad Set, Glut sets, Heel Slides, Short Arc Quads, Hip abd/add Supine Reps: 20 Assessment Current Status: Good Progress, Fair Progress Pt lillie ther ex very well, rest breaks as needed and AAROM as needed. Pt resting in bed per request with call light and all needs met. 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 Goals PT Mcc Goals Time Frame: Oct 08, 2019 Roll Left & Right (QC): 6 Sit to Lying (QC): 6 Lying-Sitting on Side/Bed(QC): 6 Sit to Stand (QC): 6 Chair/Pjs-de-Robok Xfer(QC): 6 Toilet Transfer (QC): 6 Car Transfer (QC): 6 Does the Patient Walk: Yes Walk 10 feet (QC): 6 Walk 50ft with 2 Turns (QC): 6 Walk 150 ft (QC): 6 Walking 10ft on Uneven Surface: 6 1 Step (curb) (QC): 4 4 Steps (QC): 4 12 Steps (QC): 88 Picking up an Object (QC): 6 Does the Pt use WC or Scooter?: No Type: N/A Type: N/A PT Plan Treatment/Plan Treatment Plan: Continue Plan of Care Treatment Plan: Education, Functional Activity Navya, Functional Strength, Group Therapy, Gait, Safety, Therapeutic Exercise, Transfers Treatment Duration: Oct 08, 2019 Frequency: At least 5 of 7 days/Wk (IRF) Estimated Hrs Per Day: 1.5 hours per day Patient and/or Family Agrees t: Yes Time/GCodes Time In: 1005 Time Out: 1025 Total Billed Treatment Time: 15 Total Billed Treatment 1, ther ex 15' DANNY BOLANOS CPTA Sep 24, 2019 10:25 POS
--- NOTE | 2019-09-24 12:48 | PM&R Progress Note ---
Subjective HPI/CC On Admission Date Seen by Provider: Sep 24, 2019 Time Seen by Provider: 12:30 Subjective/Events-last exam Confused most of the time but follows cues SBP 120's Bowels will be aggressively treated with suppository and enemas due to high risk for megacolon due to Parkinson's, moved last night Requiring straight in and out caths per Dr. Villanueva Conferred with RN Reviewed therapy notes Check meds and labs Check meds and labs Reviewed therapy notes Conferred with assistant director of admissions of Systems General: Fatigue Neurological: Confusion Objective Exam Vital Signs Vital Signs Date Time Temp Pulse Resp B/P (MAP) Pulse Ox O2 Delivery O2 Flow Rate FiO2 09/24/19 17:53 36.8 60 20 152/73 (99) 96 Room Air Capillary Refill : General Appearance: No Apparent Distress, WD/WN, Chronically ill HEENT: PERRL/EOMI, Normal ENT Inspection, Pharynx Normal Neck: Full Range of Motion, Normal Inspection, Non Tender, Supple Respiratory: Chest Non Tender, Lungs Clear, No Accessory Muscle Use, No Respiratory Distress Cardiovascular: Regular Rate, Rhythm, No Edema, No Gallop, No JVD, No Murmur Gastrointestinal: Normal Bowel Sounds, No Organomegaly, No Pulsatile Mass, Non Tender, Soft Back: Normal Inspection, No CVA Tenderness, No Vertebral Tenderness Extremity: Normal Capillary Refill, Normal Inspection, Normal Range of Motion, Non Tender, No Calf Tenderness, No Pedal Edema Neurologic/Psychiatric: Alert, Oriented x3, No Motor/Sensory Deficits (weakness 4/5 legs, falls risk), Normal 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 FIM Transfers Therapy Code Descriptions/Definitions Functional [place] Measure: 0=Not Assessed/NA 4=Minimal Assistance 1=Total Assistance 5=Supervision or Setup 2=Maximal Assistance 6=Modified [place] 3=Moderate Assistance 7=Complete IndependenceSCALE: Activities may be completed with or without assistive devices. 0-Kdycyjvjfe-iesqzpb completes the activity by him/herself with no assistance from a helper. 5-Set-up or Clean-up Assistance-helper sets up or cleans up; patient completes activity. [place] assists only prior to or following the activity. 4-Supervision or Touching Assistance-helper provides verbal cues and/or touching/steadying and/or contact guard assistance as patient completes activity. Assistance may be provided throughout the activity or intermittently. 3-Partial/Moderate Assistance-helper does LESS THAN HALF the effort. [place] lifts, holds or supports trunk or limbs, but provides less than half the effort. 2-Substantial/Maximal Assistance-helper does MORE THAN HALF the effort. [place] lifts or holds trunk or limbs and provides more than half the effort. 2-Sjutukcwa-fgfzyl does ALL the effort. Patient does none of the effort to complete the activity. Or, the assistance of 2 or more helpers is required for the patient to complete the activity. If activity was not attempted, code reason: 7-Patient Refused. 9-Not Applicable-not attempted and the patient did not perform the activity before the current illness, exacerbation or injury. 10-Not Attempted due to Environmental Limitations-(lack of equipment, weather restraints, etc.). 88-Not Attempted due to Medical Conditions or Safety Concerns. Roll Left to Right (QC): 4 Sit to Lying (QC): 3 Sit to Stand (QC): 4 Chair/Uha-xn-Kdbjx Xfer(QC): 3 Car Transfer (QC): 4 Gait Training Does the Patient Walk?: Yes Distance: 200' Walk 10 feet (QC): 88 Walk 50 ft with 2 Turns(QC): 88 Walk 150 ft (QC): 88 Walking 10ft/uneven surface-QC: 4 Gait Persons Needed: 1 Gait Assistive Device: FWW Wheelchair Training Does the Pt Use a Wheelchair?: Yes Wheel 50 ft with 2 turns (QC): 9 Wheel 150 ft (QC): 4 Type of Wheelchair: Manual Stair Training #of Steps: 1 1 Step (curb) (QC): 4 4 Steps (QC): 88 12 Steps (QC): 88 Balance Picking up an Object (QC): 4 ADL-Treatment Eating (QC): 6 Oral Hygiene (QC): 7 Shower/Bathe Self (QC): 7 Upper Body Dressing (QC): 5 Lower Body Dressing (QC): 3 (Pt changes into sweat pants- pt completed laundry routine previous day. No clean clothes in closet, pt states may have taken clothing home. Nursing notified of missing/ potentially sent home clothing items. Pt requires mod A to thread BLE through pants. Pt able to pull to knees and past hips with SBA.) On/Off Footwear (QC): 3 (Help to put socks on but able to take them off with initiation cues) Toileting Hygiene (QC): 4 (Pt requires mod A for righting self, requires sit to EOB during bottom hygiene. When asked if weak/ lightheaded pt states, "A little bit." Pt returns to stance after 2 min rest break, completes with CGA.) Toilet Transfer (QC): 4 (CGA, supervision, cues for hand placement) Assessment/Plan Assessment and Plan Assess & Plan/Chief Complaint Assessment: Parkinson's disease Falls Abrasion on back AF PVD CAD Urinary retention now palmer DC per Urology Chronic constipation Dementia Left pseudoaneurysm from peripheral procedure 1 month ago Fall without injury Plan: IRF protocol BM regimen Palmer cath DC per Dr Villanueva Pseudoaneurysm management not critical Fall risk (1) Parkinsons disease (2) Dementia (3) Orthostasis (4) Labile hypertension (5) Falls frequently (6) Urinary retention (7) Constipation (8) DM (9) Obstructive sleep apnea of adult Status: Acute (10) PAD (peripheral artery disease) Status: Acute JULIA GILLESPIE DO Sep 24, 2019 12:47 POS
[2019-09-24] MEDS: RIVAROXABAN 20 MG TABLET (XARELTO) PO SCH (16:56)
[2019-09-24 17:53] VITALS: BP 152/73
[2019-09-24] MEDS: meTOprolol TARTRATE 25 MG (LOPRESSOR) TABLET PO SCH (21:05)
[2019-09-24] MEDS: ASPIRIN E.C. 81 MG (ECOTRIN) TAB PO SCH (21:05)
[2019-09-25] MEDS: BETHANECHOL 25 MG (URECHOLINE) TAB PO SCH ×4 (05:13→20:46)
[2019-09-25] MEDS: CATHETER FLUSH 10 ML SYR IV SCH ×3 (05:13→20:59)
[2019-09-25 06:05] VITALS: BP 151/64
[2019-09-25] MEDS: inSUlin ASPART (NovoLOG) 1 UNIT/0.01 ML (CHARGE PER UNIT) SC SCH ×4 (06:16→20:59)
[2019-09-25] MEDS: TAMSULOSIN 0.4 MG (FLOMAX) CAP PO SCH ×2 (08:54→20:46)
[2019-09-25] MEDS: AMIODARONE 200 MG (CORDARONE) TAB PO SCH (08:54)
[2019-09-25] MEDS: PANTOPRAZOLE 40 MG (PROTONIX) TAB PO SCH (08:54)
[2019-09-25] MEDS: DOCUSATE SODIUM 100 MG (COLACE) CAP PO SCH ×2 (08:54→20:44)
[2019-09-25] MEDS: GABAPENTIN 300 MG (NEURONTIN) CAP PO SCH ×2 (08:54→20:46)
[2019-09-25] MEDS: SINEMET CR 50/200 (CARBIDOPA/LEVODOPA SA) TAB PO SCH ×3 (08:55→20:46)
[2019-09-25] MEDS: LACTULOSE SYRUP 10GM/15ML (ENULOSE) 30ML UDC PO SCH ×2 (08:55→20:46)
[2019-09-25] MEDS: POLYETHYLENE GLYCOL 17 GM (MIRALAX) PACK PO SCH ×2 (08:55→20:46)
[2019-09-25] MEDS: CLOPIDOGREL 75 MG (PLAVIX) TABLET PO SCH (08:55)
[2019-09-25] MEDS: SENNA W/DOCUSATE (SENOKOT S) TABLET PO SCH ×2 (08:55→20:46)
--- NOTE | 2019-09-25 11:31 | PM&R Progress Note ---
Subjective HPI/CC On Admission Date Seen by Provider: Sep 25, 2019 Time Seen by Provider: 11:30 Subjective/Events-last exam Congested at times but lungs are clear Patient denies pain Bowels will be aggressively treated with suppository and enemas due to high risk for megacolon due to Parkinson's Requiring straight in and out caths per Dr. Villanueva Check meds and labs Reviewed therapy notes Conferred with chlorination operator of Systems General: Fatigue Musculoskeletal: leg pain Objective Exam Vital Signs Vital Signs Date Time Temp Pulse Resp B/P (MAP) Pulse Ox O2 Delivery O2 Flow Rate FiO2 09/25/19 18:00 36.8 60 18 136/55 (82) 96 Room Air Capillary Refill : General Appearance: No Apparent Distress, WD/WN, Chronically ill HEENT: PERRL/EOMI, Normal ENT Inspection, Pharynx Normal Neck: Full Range of Motion, Normal Inspection, Non Tender, Supple Respiratory: Chest Non Tender, Lungs Clear, No Accessory Muscle Use, No Respiratory Distress Cardiovascular: Regular Rate, Rhythm, No Edema, No Gallop, No JVD, No Murmur Gastrointestinal: Normal Bowel Sounds, No Organomegaly, No Pulsatile Mass, Non Tender, Soft Back: Normal Inspection, No CVA Tenderness, No Vertebral Tenderness Extremity: Normal Capillary Refill, Normal Inspection, Normal Range of Motion, Non Tender, No Calf Tenderness, No Pedal Edema Neurologic/Psychiatric: Alert, Oriented x3, No Motor/Sensory Deficits (weakness 4/5 legs, falls risk), Normal 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 FIM Transfers Therapy Code Descriptions/Definitions Functional [place] Measure: 0=Not Assessed/NA 4=Minimal Assistance 1=Total Assistance 5=Supervision or Setup 2=Maximal Assistance 6=Modified [place] 3=Moderate Assistance 7=Complete IndependenceSCALE: Activities may be completed with or without assistive devices. 7-Zicjohbdgu-lppgkuq completes the activity by him/herself with no assistance from a helper. 5-Set-up or Clean-up Assistance-helper sets up or cleans up; patient completes activity. [place] assists only prior to or following the activity. 4-Supervision or Touching Assistance-helper provides verbal cues and/or touching/steadying and/or contact guard assistance as patient completes activity. Assistance may be provided throughout the activity or intermittently. 3-Partial/Moderate Assistance-helper does LESS THAN HALF the effort. [place] lifts, holds or supports trunk or limbs, but provides less than half the effort. 2-Substantial/Maximal Assistance-helper does MORE THAN HALF the effort. [place] lifts or holds trunk or limbs and provides more than half the effort. 4-Kfbohvadz-xtmzdc does ALL the effort. Patient does none of the effort to complete the activity. Or, the assistance of 2 or more helpers is required for the patient to complete the activity. If activity was not attempted, code reason: 7-Patient Refused. 9-Not Applicable-not attempted and the patient did not perform the activity before the current illness, exacerbation or injury. 10-Not Attempted due to Environmental Limitations-(lack of equipment, weather restraints, etc.). 88-Not Attempted due to Medical Conditions or Safety Concerns. Roll Left to Right (QC): 4 Sit to Lying (QC): 3 Sit to Stand (QC): 4 Chair/Fdv-rx-Jfgax Xfer(QC): 3 Car Transfer (QC): 4 Gait Training Does the Patient Walk?: Yes Distance: 200' Walk 10 feet (QC): 88 Walk 50 ft with 2 Turns(QC): 88 Walk 150 ft (QC): 88 Walking 10ft/uneven surface-QC: 4 Gait Persons Needed: 1 Gait Assistive Device: FWW Wheelchair Training Does the Pt Use a Wheelchair?: Yes Wheel 50 ft with 2 turns (QC): 9 Wheel 150 ft (QC): 4 Type of Wheelchair: Manual Stair Training #of Steps: 1 1 Step (curb) (QC): 4 4 Steps (QC): 88 12 Steps (QC): 88 Balance Picking up an Object (QC): 4 ADL-Treatment Eating (QC): 6 Oral Hygiene (QC): 7 Shower/Bathe Self (QC): 7 Upper Body Dressing (QC): 5 Lower Body Dressing (QC): 3 (Pt changes into sweat pants- pt completed laundry routine previous day. No clean clothes in closet, pt states may have taken clothing home. Nursing notified of missing/ potentially sent home clothing items. Pt requires mod A to thread BLE through pants. Pt able to pull to knees and past hips with SBA.) On/Off Footwear (QC): 3 (Help to put socks on but able to take them off with initiation cues) Toileting Hygiene (QC): 4 (Pt requires mod A for righting self, requires sit to EOB during bottom hygiene. When asked if weak/ lightheaded pt states, "A little bit." Pt returns to stance after 2 min rest break, completes with CGA.) Toilet Transfer (QC): 4 (CGA, supervision, cues for hand placement) Assessment/Plan Assessment and Plan Assess & Plan/Chief Complaint Assessment: Parkinson's disease Falls Abrasion on back AF PVD CAD Urinary retention now palmer DC per Urology Chronic constipation Dementia Left pseudoaneurysm from peripheral procedure 1 month ago Fall without injury Plan: IRF protocol BM regimen Palmer cath DC per Dr Villanueva Pseudoaneurysm management not critical Fall risk (1) Parkinsons disease (2) Dementia (3) Orthostasis (4) Labile hypertension (5) Falls frequently (6) Urinary retention (7) Constipation (8) DM (9) Obstructive sleep apnea of adult Status: Acute (10) PAD (peripheral artery disease) Status: Acute JULIA GILLESPIE DO Sep 25, 2019 11:31 POS
[2019-09-25] MEDS: ACETAMINOPHEN 500 MG TAB (TYLENOL) PO PRN (14:28)
--- NOTE | 2019-09-25 15:59 | NUR ---
Incontinent x 2. Bladder scan showing 420cc. Straight Cath done 375 urine clear/dark devora. Pt tolerated well. Pt cleaned/skin barrier placed in roderick area/bedding and gown changed.
[2019-09-25] MEDS: RIVAROXABAN 20 MG TABLET (XARELTO) PO SCH (16:20)
[2019-09-25 18:00] VITALS: BP 136/55
--- NOTE | 2019-09-25 19:26 | NUR ---
The patient appears lethargic, however after verbal stimulation he opens his eyes and answers questions. GCS score 13. Vitals 36.7 (98), BP 108/63, O2sat 92 room air, HR 66, 18 rpm. O2 applied via NC 2L. O2sat up to 96%. Patient was able to eat a few bites of his dinner, states I'm very tired, denies any pain, does not appear in any distress. Will continue to monitor.
[2019-09-25] MEDS: ASPIRIN E.C. 81 MG (ECOTRIN) TAB PO SCH (20:46)
[2019-09-25] MEDS: meTOprolol TARTRATE 25 MG (LOPRESSOR) TABLET PO SCH (20:46)
[2019-09-26] MEDS: CATHETER FLUSH 10 ML SYR IV SCH ×3 (05:54→21:31)
[2019-09-26] MEDS: BETHANECHOL 25 MG (URECHOLINE) TAB PO SCH ×4 (05:54→21:32)
[2019-09-26] MEDS: inSUlin ASPART (NovoLOG) 1 UNIT/0.01 ML (CHARGE PER UNIT) SC SCH ×4 (06:20→21:31)
[2019-09-26 06:47] VITALS: BP 117/52
[2019-09-26 07:01] LABS: BASOPHILS % (AUTO) 0 % (0-10); EOSINOPHILS # (AUTO) 0.3 10^3/uL (0.0-0.3); EOSINOPHILS % (AUTO) 4 % (0-10); HEMATOCRIT 27 % (40-54); LYMPHOCYTES # (AUTO) 2.1 X 10^3 (1.0-4.0); LYMPHOCYTES % (AUTO) 25 % (12-44); MEAN CORPUSCULAR HEMOGLOBIN 32 PG (25-34); MEAN CORPUSCULAR HGB CONC 33 G/DL (32-36); MEAN CORPUSCULAR VOLUME 95 FL (80-99); MEAN PLATELET VOLUME 10.9 FL (7.4-10.4); MONOCYTES # (AUTO) 0.8 X 10^3 (0.0-1.0); MONOCYTES % (AUTO) 10 % (0-12); NEUTROPHILS # (AUTO) 5.4 X 10^3 (1.8-7.8); NEUTROPHILS % (AUTO) 62 % (42-75); PLATELET COUNT 193 10^3/uL (130-400); RED CELL DISTRIBUTION WIDTH 13.4 % (10.0-14.5); WHITE BLOOD COUNT 8.6 10^3/uL (4.3-11.0)
[2019-09-26 07:21] LABS: ALANINE AMINOTRANSFERASE < 6 U/L (0-55); ALBUMIN 2.6 GM/DL (3.2-4.5); ALKALINE PHOSPHATASE 138 U/L (40-136); BILIRUBIN,TOTAL 0.9 MG/DL (0.1-1.0); BUN/CREATININE RATIO 24; CALCIUM 8.9 MG/DL (8.5-10.1); CARBON DIOXIDE 27 MMOL/L (21-32); CHLORIDE 102 MMOL/L (98-107); CREATININE SERUM 1.18 MG/DL (0.60-1.30); GFR ESTIMATED 60; GLUCOSE 156 MG/DL (70-105); POTASSIUM 4.3 MMOL/L (3.6-5.0); SODIUM 135 MMOL/L (135-145); TOTAL PROTEIN 5.4 GM/DL (6.4-8.2)
--- NOTE | 2019-09-26 08:26 | PM&R Progress Note ---
Subjective HPI/CC On Admission Date Seen by Provider: Sep 26, 2019 Time Seen by Provider: 08:30 Subjective/Events-last exam Flomax could be the cause of the hypotension Orthostasis noted of the systolic of 60 Dr. Karimi stopped all meds due to hypotension Baseline BP is 160-180 Florinef is not an option Junior andrade is not an option since he has ulcers on his legs Parkinson's is a significant problem with the orthostasis Will talk to Dr. 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 with blower blast furnace of Systems General: Fatigue Neurological: Confusion Objective Exam Vital Signs Vital Signs Date Time Temp Pulse Resp B/P (MAP) Pulse Ox O2 Delivery O2 Flow Rate FiO2 09/26/19 21:38 89 146/60 (88) 09/26/19 20:40 Room Air 09/26/19 18:00 36.4 18 96 Capillary Refill : General Appearance: No Apparent Distress, WD/WN, Chronically ill HEENT: PERRL/EOMI, Normal ENT Inspection, Pharynx Normal Neck: Full Range of Motion, Normal Inspection, Non Tender, Supple Respiratory: Chest Non Tender, Lungs Clear, No Accessory Muscle Use, No Respiratory Distress Cardiovascular: Regular Rate, Rhythm, No Edema, No Gallop, No JVD, No Murmur Gastrointestinal: Normal Bowel Sounds, No Organomegaly, No Pulsatile Mass, Non Tender, Soft Back: Normal Inspection, No CVA Tenderness, No Vertebral Tenderness Extremity: Normal Capillary Refill, Normal Inspection, Normal Range of Motion, Non Tender, No Calf Tenderness, No Pedal Edema Neurologic/Psychiatric: Alert, Oriented x3, No Motor/Sensory Deficits (weakness 4/5 legs, falls risk), Normal 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 FIM Transfers Therapy Code Descriptions/Definitions Functional [place] Measure: 0=Not Assessed/NA 4=Minimal Assistance 1=Total Assistance 5=Supervision or Setup 2=Maximal Assistance 6=Modified [place] 3=Moderate Assistance 7=Complete IndependenceSCALE: Activities may be completed with or without assistive devices. 7-Zsablgamnv-xdyycto completes the activity by him/herself with no assistance from a helper. 5-Set-up or Clean-up Assistance-helper sets up or cleans up; patient completes activity. [place] assists only prior to or following the activity. 4-Supervision or Touching Assistance-helper provides verbal cues and/or touch ing/steadying and/or contact guard assistance as patient completes activity. Assistance may be provided throughout the activity or intermittently. 3-Partial/Moderate Assistance-helper does LESS THAN HALF the effort. [place] lifts, holds or supports trunk or limbs, but provides less than half the effort. 2-Substantial/Maximal Assistance-helper does MORE THAN HALF the effort. [place] lifts or holds trunk or limbs and provides more than half the effort. 0-Lkqzbpxaa-jhxwmk does ALL the effort. Patient does none of the effort to complete the activity. Or, the assistance of 2 or more helpers is required for the patient to complete the activity. If activity was not attempted, code reason: 7-Patient Refused. 9-Not Applicable-not attempted and the patient did not perform the activity bef ore the current illness, exacerbation or injury. 10-Not Attempted due to Environmental Limitations-(lack of equipment, weather restraints, etc.). 88-Not Attempted due to Medical Conditions or Safety Concerns. Roll Left to Right (QC): 4 Sit to Lying (QC): 3 Sit to Stand (QC): 4 Chair/Iqc-wm-Pbuea Xfer(QC): 3 Car Transfer (QC): 4 Gait Training Does the Patient Walk?: Yes Distance: 200' Walk 10 feet (QC): 88 Walk 50 ft with 2 Turns(QC): 88 Walk 150 ft (QC): 88 Walking 10ft/uneven surface-QC: 4 Gait Persons Needed: 1 Gait Assistive Device: FWW Wheelchair Training Does the Pt Use a Wheelchair?: Yes Wheel 50 ft with 2 turns (QC): 9 Wheel 150 ft (QC): 4 Type of Wheelchair: Manual Stair Training #of Steps: 1 1 Step (curb) (QC): 4 4 Steps (QC): 88 12 Steps (QC): 88 Balance Picking up an Object (QC): 4 ADL-Treatment Eating (QC): 6 Oral Hygiene (QC): 7 Shower/Bathe Self (QC): 7 Upper Body Dressing (QC): 5 Lower Body Dressing (QC): 3 (Pt changes into sweat pants- pt completed laundry routine previous day. No clean clothes in closet, pt states may have taken clothing home. Nursing notified of missing/ potentially sent home clothing item s. Pt requires mod A to thread BLE through pants. Pt able to pull to knees and past hips with SBA.) On/Off Footwear (QC): 3 (Help to put socks on but able to take them off with i nitiation cues) Toileting Hygiene (QC): 4 (Pt requires mod A for righting self, requires sit to EOB during bottom hygiene. When asked if weak/ lightheaded pt states, "A little bit." Pt returns to stance after 2 min rest break, completes with CGA.) Toilet Transfer (QC): 4 (CGA, supervision, cues for hand placement) Assessment/Plan Assessment and Plan Assess & Plan/Chief Complaint Assessment: Parkinson's disease Falls Abrasion on back AF PVD CAD Urinary retention now palmer DC per Urology performing in-out caths Chronic constipation Dementia Left pseudoaneurysm from peripheral procedure 1 month ago Fall without injury Severe orthostasis stopping meds to try to help Plan: IRF protocol BM regimen Palmer cath DC per Dr Villanueva Pseudoaneurysm management not critical Fall risk Orthostasis is severe (1) Parkinsons disease (2) Dementia (3) Orthostasis (4) Labile hypertension (5) Falls frequently (6) Urinary retention (7) Constipation (8) DM (9) Obstructive sleep apnea of adult Status: Acute (10) PAD (peripheral artery disease) Status: Acute JULIA GILLESPIE DO Sep 26, 2019 08:26 POS
--- NOTE | 2019-09-26 08:36 | Physical Therapy Daily Note ---
PT Daily Note-Current Subjective Pt in bed supine head slightly elevated. just leaving and states he ate well and seems more alert to her today. Pain Numeric Pain Scale: 6 Location: Right Location Body Site: Abdomen Pain Description: Acute Comment: pt. c/o pain when movement is initiated and points to his right lower quadr Mental Status Patient Orientation: Confused Transfers SCALE: Activities may be completed with or without assistive devices. 3-Gqvbortgzs-kjivdko completes the activity by him/herself with no assistance from a helper. 5-Set-up or Clean-up Assistance-helper sets up or cleans up; patient completes activity. [place] assists only prior to or following the activity. 4-Supervision or Touching Assistance-helper provides verbal cues and/or touc dandre/steadying and/or contact guard assistance as patient completes activity. Assistance may be provided throughout the activity or intermittently. 3-Partial/Moderate Assistance-helper does LESS THAN HALF the effort. [place] lifts, holds or supports trunk or limbs, but provides less than half the effort. 2-Substantial/Maximal Assistance-helper does MORE THAN HALF the effort. [place] lifts or holds trunk or limbs and provides more than half the effort. 3-Cslfvwgud-ceswhi does ALL the effort. Patient does none of the effort to complete the activity. Or, the assistance of 2 or more helpers is required for the patient to complete the activity. If activity was not attempted, code reason: 7-Patient Refused. 9-Not Applicable-not attempted and the patient did not perform the activity before the current illness, exacerbation or injury. 10-Not Attempted due to Environmental Limitations-(lack of equipment, weather restraints, etc.). 88-Not Attempted due to Medical Conditions or Safety Concerns. Roll Left & Right (QC): 2 Sit to Lying (QC): 2 Lying to Sitting/Side of Bed(Q: 2 Sit to Stand (QC): 4 Gait Training gait not safe as pts BP low see below Exercises Supine Ex: Ankle pumps, Rolling, Heel Slides, Scooting, Straight leg raise, Hip abd/add Supine Reps: 10 Treatments BPs monitored in sitting and stance, pt continues orthostatic hypo..seated: 89/49, stance: 57/34 Assessment Current Status: Poor Progress Dr Damon here and was informed about pts BP issues. states he feels it could be related to Flomax drug pt is on. Pt. consistently unable to complete Rx session due to orthostatic hypotension PT Short Term Goals Short Term Goals Time Frame: Sep 24, 2019 Roll Left & Right: 6 Sit to lyin Lying to sitting on side of be: 6 Sit to stand: 4 (SBA) Chair/lnu-ri-zrgmf transfer: 4 (SBA) Walk 10 feet: 4 (SBA) Walk 50 feet with two turns: 4 (SBA) Walk 150 feet: 4 (SBA) PT Pantograph Machine Set Up Operator Goals [facility] Goals PT Pantograph Machine Set Up Operator Goals Time Frame: Oct 08, 2019 Roll Left & Right (QC): 6 Sit to Lying (QC): 6 Lying-Sitting on Side/Bed(QC): 6 Sit to Stand (QC): 6 Chair/Epe-ry-Xxlvf Xfer(QC): 6 Toilet Transfer (QC): 6 Car Transfer (QC): 6 Does the Patient Walk: Yes Walk 10 feet (QC): 6 Walk 50ft with 2 Turns (QC): 6 Walk 150 ft (QC): 6 Walking 10ft on Uneven Surface: 6 1 Step (curb) (QC): 4 4 Steps (QC): 4 12 Steps (QC): 88 Picking up an Object (QC): 6 Does the Pt use WC or Scooter?: No Type: N/A Type: N/A PT Plan Treatment/Plan Treatment Plan: Continue Plan of Care Treatment Plan: Education, Functional Activity Navya, Functional Strength, Group Therapy, Gait, Safety, Therapeutic Exercise, Transfers Treatment Duration: Oct 08, 2019 Frequency: At least 5 of 7 days/Wk (IRF) Estimated Hrs Per Day: 1.5 hours per day Patient and/or Family Agrees t: Yes Safety Risks/Education Patient Education: Transfer Techniques, Correct Positioning, Disease Process, Safety Issues Teaching Recipient: Patient Teaching Methods: Demonstration, Discussion Response to Teaching: Verbalize Understanding, Return Demonstration, Reinforcement Needed Time/GCodes Time In: 800 Time Out: 830 Total Billed Treatment Time: 30 Total Billed Treatment 1,FA30m SANDEE BENNETT DITCHING MACHINE ENGINEER Sep 26, 2019 08:36 POS
--- NOTE | 2019-09-26 08:41 | Progress Note ---
Subjective Time Seen by a Provider: 08:38 Subjective/Events-last exam Patient had a hypotensive episode this morning. Blood pressure 1 down to 80/50. Parkinson disease. On Flomax and Urecholine. Objective Exam Vital Signs Date Time Temp Pulse Resp B/P (MAP) Pulse Ox O2 Delivery O2 Flow Rate FiO2 09/26/19 06:47 36.8 51 16 117/52 (73) 91 Room Air 09/25/19 21:00 Room Air 09/25/19 18:00 36.8 60 18 136/55 (82) 96 Room Air 09/25/19 08:40 Room Air I & O 09/26/19 07:00 Intake Total 1000 ml Output Total 370 ml Balance 630 ml Capillary Refill : General Appearance: No Apparent Distress, WD/WN HEENT: Normal ENT Inspection Neck: Normal Inspection Respiratory: Lungs Clear, No Accessory Muscle Use, No Respiratory Distress Cardiovascular: Regular Rate, Rhythm, No Murmur Gastrointestinal: non tender, soft Results Lab Laboratory Tests 09/26/19 06:50 Laboratory Tests 09/25/19 10:51: Glucometer 326H 09/25/19 16:00: Glucometer 363H 09/25/19 18:31: Glucometer 312H 09/25/19 20:55: Glucometer 277H 09/26/19 05:50: Glucometer 172H 09/26/19 06:50: White Blood Count 8.6, Red Blood Count 2.85L, Hemoglobin 9.0L, Hematocrit 27L, Mean Corpuscular Volume 95, Mean Corpuscular Hemoglobin 32, Mean Corpuscular Hemoglobin Concent 33, Red Cell Distribution Width 13.4, Platelet Count 193, Mean Platelet Volume 10.9H, Neutrophils (%) (Auto) 62, Lymphocytes (%) (Auto) 25, Monocytes (%) (Auto) 10, Eosinophils (%) (Auto) 4, Basophils (%) (Auto) 0, Neutrophils # (Auto) 5.4, Lymphocytes # (Auto) 2.1, Monocytes # (Auto) 0.8, Eosinophils # (Auto) 0.3, Basophils # (Auto) 0.0, Sodium Level 135, Potassium Level 4.3, Chloride Level 102, Carbon Dioxide Level 27, Anion Gap 6, Blood Urea Nitrogen 28H, Creatinine 1.18, Estimat Glomerular Filtration Rate 60, BUN/Creatinine Ratio 24, Glucose Level 156H, Calcium Level 8.9, Corrected Calci um 10.0, Total Bilirubin 0.9, Aspartate Amino Transf (AST/SGOT) 22, Alanine Aminotransferase (ALT/SGPT) < 6, Alkaline Phosphatase 138H, Total Protein 5.4L, Albumin 2.6L Assessment/Plan Assessment/Plan Assess & Plan/Chief Complaint Parkinson disease. Hypoglycemia. Hypertension. Weakness. Debility. Dementia.. . 09/20/19. Parkinson disease. Hypoglycemia. Hypertension. Weakness. Debility. Dementia. Pseudoaneurysm of left femoral artery. . 09/21/19. Parkinson disease. Diabetes. Orthostatic hypertension. Hypertension. Weakness improving. Debility improving. Dementia. Pseudoaneurysm of the left femoral artery small. . 09/22/19. Parkinson disease. Orthostatic hypotension. Diabetes. History of hypertension. Weakness. Debility. Dementia. Pseudoaneurysm of the left femoral artery small. . 09/23/19. Parkinson disease. Orthostatic hypotension. Lumbar pain due to 4. Diabetes. Hypertension. Weakness. Debility. Demented. Small pseudoaneurysm of the left femoral artery. Patient alert and eating good this morning. . 09/26/19. Parkinson disease. Orthostatic hypotension. Diabetes. Hypertension history. Weakness. Debility. Dementia. Patient starting to urinate now Clinical Quality Measures DVT/VTE Risk/Contraindication: Risk Factor Score Per Nursin RFS Level Per Nursing on Admit: 4+=Very High DENIZ KENT DO Sep 26, 2019 08:41 POS
--- NOTE | 2019-09-26 09:10 | Cardiology Progress Note ---
Subjective Date Seen by Provider: Sep 26, 2019 Time Seen by Provider: 09:08 Subjective/Events-last exam Patient is in bed, continues to have orthostatic hypotension. Review of Systems General: No Chills, No Night Sweats; Fatigue; No Malaise, No Appetite, No Other HEENT: No Head Aches, No Visual Changes, No Eye Pain, No Ear Pain, No Dysphasia, No Sinus Congestion, No Post Nasal Drip, No Sore Throat, No Other Pulmonary: Dyspnea; No Cough, No Pleuritic Chest Pain, No Other Cardiovascular: No: Chest Pain, Palpitations, Orthopnea, Paroxysmal Noc. Dyspnea, Edema, Lt Headedness, Other Objective-Cardiology Exam Last Set of Vital Signs Vital Signs 09/26/19 06:47 Temp 36.8 Pulse 51 Resp 16 B/P (MAP) 117/52 (73) Pulse Ox 91 O2 Delivery Room Air Capillary Refill : I&O Intake and Output 09/26/19 00:00 Intake Total 950 ml Output Total 370 ml Balance 580 ml Intake Oral 950 ml Output Urine Total 370 ml # Voids 2 # Urine Diapers 2 General: Alert, Cooperative, Other (confused) HEENT: Atraumatic, PERRLA Neck: Supple, No JVD, No Thyromegaly Lungs: Clear to Auscultation, Normal Air Movement Heart: Regular Rate, Normal S1, Normal S2, No Murmurs Abdomen: Normal Bowel Sounds, Soft, No Tenderness, No Hepatosplenomegaly, No Ma sses Extremities: No Clubbing, No Cyanosis, No Edema, No Tenderness/Swelling, Other (diminished pulse LLE, L groin bruit) Skin: No Rashes, No Breakdown, No Significant Lesion Neuro: Normal Gait, Normal Speech, Strength at 5/5 X4 Ext, Normal Tone, Sensation Intact Psych/Mental Status: Mental Status NL, Mood NL Results Lab Laboratory Tests 09/26/19 06:50 A/P-Cardiology Admission Diagnosis Parkinson disease Peripheral arterial disease Coronary artery disease Hypertension Assessment/Plan Change in mental status, generalized weakness and loss of energy, Parkinson disease, multiple falls, appears back to baseline Labile hypertension, has been having orthostatic hypotension. Baseline hypertension, cannot tolerate antihypertensive medication due to his severe orthostatic hypotension. I will discontinue Lopressor, gabapentin, melatonin, Amiodarone, continue to monitor. Small Left groin pseudoaneurysm at left GOLD ASSAYER, Continue with conservative management, plan to reevaluate US in 1-2 weeks. Severe Peripheral vascular disease, had nonhealing wound right lower extremity, underwent peripheral angiogram on August 17, 2019 revealing total occlusion of right SFA, successful angioplasty then deployment of 2 Supera stent [id number] and [id number] with excellent results and flow. Severe disease at the distal posterior tibial artery proximal anterior tibial artery. Heavily calcified left SFA with multiple segments of moderate to severe disease with occluded anterior tibial artery. Patient is maintained on Plavix and aspirin. Wound to right lower extremity is healing. Patient has known severe disease on the left side, we will continue with conservative management unless patient becomes symptomatic due to his comorbidities. Currently not having any symptoms, does not have any ulceration to left lower extremity. Continue to monitor Sick sinus syndrome, history of episodes of bradycardia with complete heart block, frequent PVCs, ventricular bigeminy and ventricular couplets, short PAT's. 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 Continue to monitor Nonsustained ventricular tachycardia, No recent arrhythmia on pacemaker interrogation, continue to monitor. Paroxysmal atrial fibrillation, maintained on Amiodarone, continue to monitor. [id number] score of 6, high risk, yearly risk of stroke without OAC is 9.8%. Maintained on Xarelto, continue to monitor Coronary artery disease, multiple interventions in the past, most recent cardiac catheterization done March 14, 2015 revealed extensive coronary artery disease, heavily calcified system, with 40 percent distal left main coronary artery stenosis. 3 stents in LAD proximally with 50-60 percent in-stent restenosis. Distal LAD had 95 percent stenosis followed by 80 percent stenosis long segment, very small artery not amendable to intervention. Total occlusion of the first obtuse marginal branch filled by collaterals. Patent stent in the proximal mid second OM branch with moderate disease in the distal proper circumflex artery. Patent stent in the RCA with 50 percent proximal right coronary artery stenosis and 50-60 distal right coronary artery stenosis. Asymptomatic, continue to monitor Stress test in July 2016 showed fixed defect involving the whole inferior wall and inferoapical segment with dilated left ventricle, inferior wall hypokinesia, Ejection fraction 54 percent. Echocardiogram showed ejection fraction 60 percent, dilated left atrium, mild to moderate mitral regurgitation and pulmonary artery pressure of 35 mmHg. continue to monitor, Hyperlipidemia, maintained on Crestor, continue to monitor lipids. History of CVA in 2010, mild residual right sided weakness, episodes of confusion occurred over the last year where patient became confused and drove over once to [place] and once to [place]. It was felt that it was a global ischemic attack with confusion, workup at that time was negative. He was seen by Dr. Jiménez and started on Dilantin, the dose was increased by Dr. Damon, followed and managed by primary care physician Congestive heart failure, EF 45-50 percent, as well as diastolic dysfunction per most recent 2-D echocardiogram done 2018, continue with current medication Diabetes mellitus, followed and managed by primary care physician Carotid stenosis, monitored by Dr. Simmons's office Dementia, managed by primary care physician. Ex-Tobaccoism, patient smokes pipe, he stopped smoking in October, encouraged to continue with smoking cessation Peripheral neuropathy, maintained on gabapentin. Continue on current medication, continue to monitor Sleep apnea, severe on sleep study in October 2015, does not use his machine. Patient was seen and evaluated with Yee, examination performed, management plan was discussed, agree with the current scribed note, I made few changes to the note using Italic font Patient is still having orthostatic hypotension, baseline hypertension with blood pressure around 150 systolic Lungs were clear to auscultation, heart is regular I will stop beta blockers, amiodarone and melatonin, monitor blood pressure Cannot tolerate compression stocking due to the foot ulcers and peripheral arterial disease Cannot tolerate Midrin or Florinef due to the baseline severe hypertension Clinical Quality Measures DVT/VTE Risk/Contraindication: Risk Factor Score Per Nursin RFS Level Per Nursing on Admit: 4+=Very High Supervisory-Addendum Brief Supervisory Addendum Participated in pt care: history, MDM, physical Personally performed: exam, history, MDM Care discussed with: YEE CONROY Sep 26, 2019 09:10 SEBASTIÁN ZAVALETA MD Sep 26, 2019 10:05 POS
[2019-09-26] MEDS: TAMSULOSIN 0.4 MG (FLOMAX) CAP PO SCH (09:18)
--- NOTE | 2019-09-26 09:28 | Progress Note - Urology ---
Progress Note-Urology Progress Notes/Assess & Plan Progress/Assessment & Plan VOIDING WELL. SOME DECREASE IN B.P. WE WILL HOLD DAYTIME FLOMAX DOSE AND SEE Final Diagnosis URINE RETENTION EVERTON GARCIA MD Sep 26, 2019 09:28 POS
[2019-09-26] MEDS: DOCUSATE SODIUM 100 MG (COLACE) CAP PO SCH ×2 (10:13→20:43)
[2019-09-26] MEDS: PANTOPRAZOLE 40 MG (PROTONIX) TAB PO SCH (10:13)
[2019-09-26] MEDS: SENNA W/DOCUSATE (SENOKOT S) TABLET PO SCH ×2 (10:13→20:43)
[2019-09-26] MEDS: CLOPIDOGREL 75 MG (PLAVIX) TABLET PO SCH (10:13)
[2019-09-26] MEDS: POLYETHYLENE GLYCOL 17 GM (MIRALAX) PACK PO SCH ×2 (10:14→20:43)
[2019-09-26] MEDS: LACTULOSE SYRUP 10GM/15ML (ENULOSE) 30ML UDC PO SCH ×2 (10:14→20:43)
[2019-09-26] MEDS: SINEMET CR 50/200 (CARBIDOPA/LEVODOPA SA) TAB PO SCH ×3 (10:14→21:32)
--- NOTE | 2019-09-26 10:26 | Occupational Ther Daily Note ---
OT Current Status-Daily Note Subjective Pt seen supine in bed, feet above heart. Pt agreeable to OT tx session, states he had a good weekend and denies pain. Mental Status/Objective Patient Orientation: Person ADL-Treatment Therapy Code Descriptions/Definitions Functional [place] Measure: 0=Not Assessed/NA 4=Minimal Assistance 1=Total Assistance 5=Supervision or Setup 2=Maximal Assistance 6=Modified [place] 3=Moderate Assistance 7=Complete IndependenceSCALE: Activities may be completed with or without assistive devices. 0-Jocnyfvzcx-esatrrg completes the activity by him/herself with no assistance from a helper. 5-Set-up or Clean-up Assistance-helper sets up or cleans up; patient completes activity. [place] assists only prior to or following the activity. 4-Supervision or Touching Assistance-helper provides verbal cues and/or touching/steadying and/or contact guard assistance as patient completes activity. Assistance may be provided throughout the activity or intermittently. 3-Partial/Moderate Assistance-helper does LESS THAN HALF the effort. [place] lifts, holds or supports trunk or limbs, but provides less than half the effort. 2-Substantial/Maximal Assistance-helper does MORE THAN HALF the effort. [place] lifts or holds trunk or limbs and provides more than half the effort. 2-Khjxcaule-adegdy does ALL the effort. Patient does none of the effort to complete the activity. Or, the assistance of 2 or more helpers is required for the patient to complete the activity. If activity was not attempted, code reason: 7-Patient Refused. 9-Not Applicable-not attempted and the patient did not perform the activity before the current illness, exacerbation or injury. 10-Not Attempted due to Environmental Limitations-(lack of equipment, weather restraints, etc.). 88-Not Attempted due to Medical Conditions or Safety Concerns. Other Treatment Pt denies pain, completes supine BP readin/73. Pt educated on BP reading, pt asked to sit EOB for additional readings. Pt attempts to move with multiple cues, pt states back is in pain when he moves. Pt's back assessed, pt states moderate pain in mid-back. Bandaging touched and pt agrees pain is occurring under bandaging, agrees to "dull ache" pain. Pt cued to move toward EOB after resting, pt mobilizes legs but does not attempt to move EOB. Pt educated on ways for OT to assist toward EOB, pt agrees for OT assist. Pt's HOB raised to sitting position, states light headedness and HOB lowered. Upon prepping, pt states, "Give me one more minute." DO comes in during session. After DO exit, pt's BP assessed in seated in bed in sittin/63. Pt states he is lightheaded and in pain, hindering ability to move EOB. Nursing notified of BP reading and pain that has limited pt's ability to move OOB. OT to attempt later this afternoon for pt tx session. Education OT Patient Education: Correct positioning, Purpose of tx/functional activities, Transfer techniques Teaching Recipient: Patient Teaching Methods: Demonstration, Discussion Response to Teaching: Verbalize Understanding, Unable to Return Demonstration, Reinforcement Needed OT Short Term Goals Short Term Goals Time Frame: Sep 26, 2019 Toileting hygiene: 4 (met) Lower body dressin (met) Putting on/taking off footwear: 4 OT Care Home Goals Sap Solutions Architect Goals Time Frame: Oct 04, 2019 Eating (QC): 5 (met) Oral Hygiene (QC): 5 Toileting Hygiene (QC): 5 Shower/Bathe Self (QC): 5 Upper Body Dressing (QC): 5 (met) Lower Body Dressing (QC): 5 On/Off Footwear (QC): 5 Additional Goals: 1-Demonstrate ADL Tasks, 2-Verbalize Understanding, 3- ImproveStrength/[place] 1=Demonstrate adherence to instructed precautions during ADL tasks. 2=Patient will verbalize/demonstrate understanding of assistive devices/modifications for ADL. 3=Patient will improve strength/tolerance for activity to enable patient to perform ADL's. OT Education/Plan Problem List/Assessment Assessment: Decreased Activ Tolerance, Decreased Safety Aware, Decreased UE Strength, Dependent Transfers, Impaired Bed Mobility, Impaired Cognition, Impaired I ADL's, Impaired Self-Care Skills Pt would benefit from skilled OT to increase his independence with basic self ca re to allow him to safely return home and decrease risk of falling. Discharge Recommendations Plan/Recommendations: Continue POC Treatment Plan/Plan of Care Treatment,Training & Education: Yes Patient would benefit from OT for education, treatment and training to promote independence in ADL's, mobility, safety and/or upper extremity function for ADL's. Plan of Care: ADL Retraining, Functional Mobility, Group Exercise/Act as Ind (education, exercise, activity tolerance, functional mobility, socialization, memory), UE Funct Exercise/Act, UE Neuromus Re-Ed/Coord Treatment Duration: Oct 04, 2019 Frequency: At least 5 of 7 days/Wk (IRF) Estimated Hrs Per Day: 1.5 hours per day (1.25 to 1.5) Agreement: Yes Rehab Potential: Fair Time/GCodes Start Time: 09:30 Stop Time: 10:00 Total Time Billed (hr/min): 30 Billed Treatment Time 1, FA 2 (30) TYRA ALEJO OTR Sep 26, 2019 10:26 POS
--- NOTE | 2019-09-26 12:01 | Speech Therapy Daily Note ---
Speech Daily Progress Note Subjective Date Seen by Provider: Sep 26, 2019 Time Seen by Provider: 00:30 Patient was resting in his bed when I entered his room. Objective Patient completed simple q/a with 70% given moderate verbal cues. Assessment Assessment Current Status: Fair Progress Treatment Plan Continue Plan of Care Speech Short Term Goals Short Term Goals Short Term Goals 1) The patient will complete memory tasks related to her daily needs at 90% or greater with minimal cues. 2) The patient will complete safety awareness tasks related to her daily needs at 90% or greater with minimal cues. 3) The patient will complete problem solving tasks related to her daily needs at 90% or greater with minimal cues. Speech Jail Goals Design Inserter Goals The patient will improve cognitive-communication necessary for safety and daily living tasks with minimal assist. Speech-Plan Patient/Family Goals Patient/Family Goals: Patient plans on returning home upon discharge. Treatment Plan Speech Therapy Treatment Plan: Continue Plan of Care Patient was more alert today. Treatment Duration: Sep 30, 2019 Frequency: 5 times per week Estimated Hrs Per Day: .5 hour per day Rehab Potential: Fair Barriers to Learning: Patient is confused Pt/Family Agrees to Plan: Yes Safety Risks/Education Teaching Recipient: Patient Teaching Methods: Demonstration, Discussion Response to Teaching: Verbalize Understanding, Return Demonstration, Reinforcement Needed Education Topics Provided: Communication of wants/needs Time Speech Therapy Time In: 11:00 Speech Therapy Time Out: 11:30 Total Billed Time: 30 Billed Treatment Time 1DON[address] Sep 26, 2019 12:01 POS
[2019-09-26] MEDS: ACETAMINOPHEN 500 MG TAB (TYLENOL) PO PRN (12:38)
--- NOTE | 2019-09-26 14:12 | NUR ---
Reviewed EMR and patient status. Per rounding, patient was having hypotension prohibiting participation in therapies. RN updated MD and Rx adjustment was ordered, will continue to follow for updates. Visited with son Bull who was here visiting and soon after with spouse Manisha. Explored patient safety post discharge, home vs community SNF. Manisha works, the children have offered to alternate schedules to stay with patient at home while Manisha is at work; however, it needs to be determined whether they can provide the needed care in the home. Reminded that target discharge date is 09/28/19. Data Warehouse Administrator and Manisha discussed community nursing facilities and since she works for Dr. Damon she will discuss with him. Provided contact information for updates if family comes to a conclusion. Continue intermittent review and availability to patient/family for assistance.
--- NOTE | 2019-09-26 14:52 | Physical Therapy Daily Note ---
PT Daily Note-Current Subjective Pt. with OT and nursing upon arrival. Nursing shares that Flomax was held in hopes pts. BP would stabilize. Pain Location: No Pain Reported Comment: pt. lethargic and off and on non responsive it appeared as he did not respo Mental Status Patient Orientation: Confused Transfers SCALE: Activities may be completed with or without assistive devices. 7-Glkfgqwfje-zwclclv completes the activity by him/herself with no assistance from a helper. 5-Set-up or Clean-up Assistance-helper sets up or cleans up; patient completes activity. [place] assists only prior to or following the activity. 4-Supervision or Touching Assistance-helper provides verbal cues and/or touching/steadying and/or contact guard assistance as patient completes activity. Assistance may be provided throughout the activity or intermittently. 3-Partial/Moderate Assistance-helper does LESS THAN HALF the effort. Emily lifts, holds or supports trunk or limbs, but provides less than half the effort. 2-Substantial/Maximal Assistance-helper does MORE THAN HALF the effort. [place] lifts or holds trunk or limbs and provides more than half the effort. 2-Vgcxwgtsh-pzuvwo does ALL the effort. Patient does none of the effort to complete the activity. Or, the assistance of 2 or more helpers is required for the patient to complete the activity. If activity was not attempted, code reason: 7-Patient Refused. 9-Not Applicable-not attempted and the patient did not perform the activity before the current illness, exacerbation or injury. 10-Not Attempted due to Environmental Limitations-(lack of equipment, weather restraints, etc.). 88-Not Attempted due to Medical Conditions or Safety Concerns. rolling , sup to sit and sit to stand all mod to max assist. pt. sitting slumping, melting back in to bed and reclining without notice x 3 Treatments pt. co Rxd with OT to assess viability of rx and BP readings. Pt found also to need brief change and BM clean up. Pt. in bed with LEs elevated and head of bed up BP 120/60, pt. required mod to max assist sup to sit. in sitting BP 110/39, pt. stood briefly for brief off when pt. slumped back on bed and BP would not record, ( likely dropping rapidly per pts response). Pt. was assisted in to bed max assist of 2 and rolled multiple times max assist for BM and bedding change, after this in sup BP 120/60 call flores at hand and pt speaking again and more reponsive Assessment Current Status: Poor Progress labile BPs orthostatic hypotension prohibits upright activity PT Short Term Goals Short Term Goals Time Frame: Sep 24, 2019 Roll Left & Right: 6 Sit to lyin Lying to sitting on side of be: 6 Sit to stand: 4 (SBA) Chair/kne-sa-lkkee transfer: 4 (SBA) Walk 10 feet: 4 (SBA) Walk 50 feet with two turns: 4 (SBA) Walk 150 feet: 4 (SBA) PT Detention Goals Detention Goals PT Detention Goals Time Frame: Oct 08, 2019 Roll Left & Right (QC): 6 Sit to Lying (QC): 6 Lying-Sitting on Side/Bed(QC): 6 Sit to Stand (QC): 6 Chair/Hyd-rl-Ibqvk Xfer(QC): 6 Toilet Transfer (QC): 6 Car Transfer (QC): 6 Does the Patient Walk: Yes Walk 10 feet (QC): 6 Walk 50ft with 2 Turns (QC): 6 Walk 150 ft (QC): 6 Walking 10ft on Uneven Surface: 6 1 Step (curb) (QC): 4 4 Steps (QC): 4 12 Steps (QC): 88 Picking up an Object (QC): 6 Does the Pt use WC or Scooter?: No Type: N/A Type: N/A PT Plan Treatment/Plan Treatment Plan: Continue Plan of Care Treatment Plan: Education, Functional Activity Navya, Functional Strength, Group Therapy, Gait, Safety, Therapeutic Exercise, Transfers Treatment Duration: Oct 08, 2019 Frequency: At least 5 of 7 days/Wk (IRF) Estimated Hrs Per Day: 1.5 hours per day Patient and/or Family Agrees t: Yes Time/GCodes Time In: 1415 Time Out: 1445 Total Billed Treatment Time: 30 Total Billed Treatment 1,FA30, co Rx OT SANDEE BENNETT TENTERING MACHINE FEEDER Sep 26, 2019 14:52 POS
--- NOTE | 2019-09-26 15:35 | Occupational Ther Daily Note ---
OT Current Status-Daily Note Subjective Pt seen in bed, awake upon entry. Pt states his pain is "better," but states "mild pain" mid-back. Pt agreeable to OT tx session. ADL-Treatment Therapy Code Descriptions/Definitions Functional [place] Measure: 0=Not Assessed/NA 4=Minimal Assistance 1=Total Assistance 5=Supervision or Setup 2=Maximal Assistance 6=Modified [place] 3=Moderate Assistance 7=Complete IndependenceSCALE: Activities may be completed with or without assistive devices. 5-Worqeoupgc-ebhduqg completes the activity by him/herself with no assistance from a helper. 5-Set-up or Clean-up Assistance-helper sets up or cleans up; patient completes activity. [place] assists only prior to or following the activity. 4-Supervision or Touching Assistance-helper provides verbal cues and/or touching/steadying and/or contact guard assistance as patient completes activity. Assistance may be provided throughout the activity or intermittently. 3-Partial/Moderate Assistance-helper does LESS THAN HALF the effort. [place] lifts, holds or supports trunk or limbs, but provides less than half the effort. 2-Substantial/Maximal Assistance-helper does MORE THAN HALF the effort. [place] lifts or holds trunk or limbs and provides more than half the effort. 5-Gqpnlpofh-yurapj does ALL the effort. Patient does none of the effort to complete the activity. Or, the assistance of 2 or more helpers is required for the patient to complete the activity. If activity was not attempted, code reason: 7-Patient Refused. 9-Not Applicable-not attempted and the patient did not perform the activity before the current illness, exacerbation or injury. 10-Not Attempted due to Environmental Limitations-(lack of equipment, weather restraints, etc.). 88-Not Attempted due to Medical Conditions or Safety Concerns. Eating (QC): 6 Other Treatment PT/ OT cotreatment due to pt low BP and need for 2 skilled therapists. OT addressed personal hygiene and ADL ability. PT focused on mobility. Pt seen in bed, supine BP assessed 123/62. Pt states lightheadedness. Pt encouraged to move EOB, pt required max A for mobility in bed. BP: 105/56 EOB. Pt's brief soiled, attempt sit to stand, pt stands for ~5 seconds before laying back in bed, sitting BP: 110/39. Pt laid back down in bed, soiled brief and sheets changed with TD. Pt left in bed, bed rails up per pt and call light in reach. Nursing notified of pt BP and position. Education OT Patient Education: Correct positioning, Modified ADL techniques, Progress toward Goal/Update tx plan, Safety issues, Transfer techniques Teaching Recipient: Patient Teaching Methods: Demonstration, Discussion Response to Teaching: Verbalize Understanding, Return Demonstration, Reinforcement Needed OT Short Term Goals Short Term Goals Time Frame: Sep 26, 2019 Toileting hygiene: 4 (met) Lower body dressin (met) Putting on/taking off footwear: 4 OT Longterm Goals Longterm Goals Time Frame: Oct 04, 2019 Eating (QC): 5 (met) Oral Hygiene (QC): 5 Toileting Hygiene (QC): 5 Shower/Bathe Self (QC): 5 Upper Body Dressing (QC): 5 (met) Lower Body Dressing (QC): 5 On/Off Footwear (QC): 5 Additional Goals: 1-Demonstrate ADL Tasks, 2-Verbalize Understanding, 3-ImproveStrength/Navya 1=Demonstrate adherence to instructed precautions during ADL tasks. 2=Patient will verbalize/demonstrate understanding of assistive devices/modifications for ADL. 3=Patient will improve strength/tolerance for activity to enable patient to perf orm ADL's. OT Education/Plan Problem List/Assessment Assessment: Decreased Activ Tolerance, Decreased UE Strength, Dependent Transfers, Impaired Cognition, Impaired Funct Balance, Impaired I ADL's, Impaired Self-Care Skills Pt would benefit from skilled OT to increase his independence with basic self care to allow him to safely return home and decrease risk of falling. Discharge Recommendations Plan/Recommendations: Continue POC Therapy Discharge Recommendati: Intermittent Supervision, Home & Family, Post Acute OT Treatment Plan/Plan of Care Treatment,Training & Education: Yes Patient would benefit from OT for education, treatment and training to promote independence in ADL's, mobility, safety and/or upper extremity function for ADL's. Plan of Care: ADL Retraining, Functional Mobility, Group Exercise/Act as Ind (education, exercise, activity tolerance, functional mobility, socialization, memory), UE Funct Exercise/Act, UE Neuromus Re-Ed/Coord Treatment Duration: Oct 04, 2019 Frequency: At least 5 of 7 days/Wk (IRF) Estimated Hrs Per Day: 1.5 hours per day (1.25 to 1.5) Agreement: Yes Rehab Potential: Fair Time/GCodes Start Time: 15:15 Stop Time: 15:45 Total Time Billed (hr/min): 30 Billed Treatment Time 1, ADL 2 (30) TYRA ALEJO OTR Sep 26, 2019 15:35 POS
--- NOTE | 2019-09-26 16:09 | NUR ---
"RD ASSESSMENT PMHx: Parkinson's disease; CAD; HTN; HLD; DM; dementia PT INTERACTION: Pt was awake and pleasant during nutrition assessment. Pt states eating well since last assessment. Note pt avg PO intake of 64% x6d, per chart review. Pt states tolerating Ensure HP supplement well. Pt states no recent issues with n/v/c/d at this time. Note last BM was 09/24 (x2), and pt currently on bowel regimen of colace BID; senna BID, and miralax BID, per chart review. ABNORMAL NUTRITION-RELATED LAB VALUES LOW: Pro 5.4; alb 2.6 HIGH: BUN 28; glu 156; alkphos 138 Est. kcal needs: 2241-0171 kcal | 25-30 kcal/kg Est. Pro needs: 76-91 g Pro | 1.0-1.2 g Pro/kg PES STATEMENT: Inadequate oral intake (NI-2.1) related to loss of appetite as evidenced by pt interview | avg PO intake 64% x4d INTERVENTION: Continue with current diet order of CHO 60g/m 1snack diet. Continue with current supplementation order of Ensure HP (vary) with meals TID. Provides 160 kcal and 16 g Pro per serving. Will continue to follow and reassess as pt needs and status change. MONITOR/EVALUATE: PO Intake; Plan of Care; Hydration Status; Weight Status; Lab Values David Henley, MS, RD, LD"
[2019-09-26] MEDS: RIVAROXABAN 20 MG TABLET (XARELTO) PO SCH (17:57)
[2019-09-26 18:00] VITALS: BP 133/64
[2019-09-26] MEDS ORDERED: TAMSULOSIN 0.4 MG (FLOMAX) CAP PO SCH (21:00)
[2019-09-26] MEDS: ASPIRIN E.C. 81 MG (ECOTRIN) TAB PO SCH (21:32)
[2019-09-26 21:38] VITALS: BP 146/60
[2019-09-27 06:00] VITALS: BP 156/69
[2019-09-27] MEDS: inSUlin ASPART (NovoLOG) 1 UNIT/0.01 ML (CHARGE PER UNIT) SC SCH ×2 (06:28→12:00)
[2019-09-27] MEDS: BETHANECHOL 25 MG (URECHOLINE) TAB PO SCH ×2 (06:28→12:00)
[2019-09-27] MEDS: CATHETER FLUSH 10 ML SYR IV SCH ×2 (06:28→14:12)
--- NOTE | 2019-09-27 08:05 | Progress Note ---
Subjective Time Seen by a Provider: 08:03 Subjective/Events-last exam Patient alert today. Patient's blood pressure better with decrease in medication for hypotension. Sugars are elevating to put on Levemir. Objective Exam Vital Signs Date Time Temp Pulse Resp B/P (MAP) Pulse Ox O2 Delivery O2 Flow Rate FiO2 09/27/19 06:00 36.6 67 18 156/69 (98) 93 Room Air 09/26/19 21:38 89 146/60 (88) 09/26/19 20:40 Room Air 09/26/19 18:00 36.4 62 18 133/64 (87) 96 Room Air 09/26/19 08:20 Room Air I & O 09/27/19 07:00 Intake Total 1130 ml Output Total 3 ml Balance 1127 ml Capillary Refill : General Appearance: No Apparent Distress, WD/WN HEENT: Normal ENT Inspection Neck: Normal Inspection Respiratory: Lungs Clear, No Accessory Muscle Use, No Respiratory Distress Cardiovascular: Regular Rate, Rhythm, No Murmur Gastrointestinal: non tender, soft Results Lab Laboratory Tests 09/26/19 11:01: Glucometer 401*H 09/26/19 17:04: Glucometer 280H 09/26/19 20:49: Glucometer 344H 09/27/19 05:54: Glucometer 229H Assessment/Plan Assessment/Plan Assess & Plan/Chief Complaint Parkinson disease. Hypoglycemia. Hypertension. Weakness. Debility. Dementia.. . 09/20/19. Parkinson disease. Hypoglycemia. Hypertension. Weakness. Debility. Dementia. Pseudoaneurysm of left femoral artery. . 09/21/19. Parkinson disease. Diabetes. Orthostatic hypertension. Hypertension. Weakness improving. Debility improving. Dementia. Pseudoaneurysm of the left femoral artery small. . 09/22/19. Parkinson disease. Orthostatic hypotension. Diabetes. History of hypertension. Weakness. Debility. Dementia. Pseudoaneurysm of the left femoral artery small. . 09/23/19. Parkinson disease. Orthostatic hypotension. Lumbar pain due to 4. Diabetes. Hypertension. Weakness. Debility. Demented. Small pseudoaneurysm of the left femoral artery. Patient alert and eating good this morning. . 09/26/19. Parkinson disease. Orthostatic hypotension. Diabetes. Hypertension history. Weakness. Debility. Dementia. Patient starting to urinate now. . 09/27/90 Parkinson disease. Orthostatic hypotension. Blood pressure better this morning. Diabetes needs Levemir sugars increasing. Hypertension history. Weakness. Debility. Dementia. Clinical Quality Measures DVT/VTE Risk/Contraindication: Risk Factor Score Per Nursin RFS Level Per Nursing on Admit: 4+=Very High DENIZ KENT DO Sep 27, 2019 08:05 POS
--- NOTE | 2019-09-27 08:30 | Cardiology Progress Note ---
Subjective Date Seen by Provider: Sep 27, 2019 Time Seen by Provider: 08:28 Subjective/Events-last exam Patient in bed, blood pressure better this morning. Denies any chest pain or dyspnea. Review of Systems General: No Chills, No Night Sweats; Fatigue; No Malaise, No Appetite, No Other HEENT: No Head Aches, No Visual Changes, No Eye Pain, No Ear Pain, No Dysphasia, No Sinus Congestion, No Post Nasal Drip, No Sore Throat, No Other Pulmonary: No Dyspnea, No Cough, No Pleuritic Chest Pain, No Other Cardiovascular: No: Chest Pain, Palpitations, Orthopnea, Paroxysmal Noc. Dyspnea, Edema, Lt Headedness, Other Objective-Cardiology Exam Last Set of Vital Signs Vital Signs 09/27/19 06:00 Temp 36.6 Pulse 67 Resp 18 B/P (MAP) 156/69 (98) Pulse Ox 93 O2 Delivery Room Air Capillary Refill : I&O Intake and Output 09/27/19 00:00 Intake Total 1000 ml Output Total 1 ml Balance 999 ml Intake Oral 1000 ml Stool Total 1 ml # Voids 3 General: Alert, Cooperative, Other (confused) HEENT: Atraumatic, PERRLA Neck: Supple, No JVD, No Thyromegaly Lungs: Clear to Auscultation, Normal Air Movement Heart: Regular Rate, Normal S1, Normal S2, No Murmurs Abdomen: Normal Bowel Sounds, Soft, No Tenderness, No Hepatosplenomegaly, No Masses Extremities: No Clubbing, No Cyanosis, No Edema, No Tenderness/Swelling, Other (diminished pulse LLE, L groin bruit) Skin: No Rashes, No Breakdown, No Significant Lesion Neuro: Normal Gait, Normal Speech, Strength at 5/5 X4 Ext, Normal Tone, Sensation Intact Psych/Mental Status: Mental Status NL, Mood NL Results Lab Laboratory Tests Test 09/26/19 11:01 09/26/19 17:04 09/26/19 20:49 09/27/19 05:54 Range/Units Glucometer 401 *H 280 H 344 H 229 H 70-110 MG/DL A/P-Cardiology Admission Diagnosis Parkinson disease Peripheral arterial disease Coronary artery disease Hypertension Assessment/Plan Change in mental status, generalized weakness and loss of energy, Parkinson disease, multiple falls, appears back to baseline Labile hypertension, has been having orthostatic hypotension. Baseline hypertension, cannot tolerate antihypertensive medication due to his severe orthostatic hypotension. Lopressor, gabapentin, melatonin, Amiodarone discontinued yesterday, continue to monitor. Small Left groin pseudoaneurysm at left SHAPER MACHINE HAND, Continue with conservative management, plan to reevaluate US next week Severe Peripheral vascular disease, had nonhealing wound right lower extremity, underwent peripheral angiogram on August 17, 2019 revealing total occlusion of right SFA, successful angioplasty then deployment of 2 Supera stent [id number] and 6x100 with excellent results and flow. Severe disease at the distal posterior tibial artery proximal anterior tibial artery. Heavily calcified left SFA with multiple segments of moderate to severe disease with occluded anterior tibial artery. Patient is maintained on Plavix and aspirin. Wound to right lower extremity is healing. Patient has known severe disease on the left side, we will continue with conservative management unless patient becomes symptomatic due to his comorbidities. Currently not having any symptoms, does not have any ulceration to left lower extremity. Continue to monitor Sick sinus syndrome, history of episodes of bradycardia with complete heart block, frequent PVCs, ventricular bigeminy and ventricular couplets, short PAT's. 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 device Advisa DR GONZALEZ, last interrogation was done in June 2019 showing good sensing and capture activity, longevity for the battery is 4 years, no arrhythmia was detected. Continue to monitor Nonsustained ventricular tachycardia, No recent arrhythmia on pacemaker interrogation, continue to monitor. Paroxysmal atrial fibrillation, maintained on Amiodarone, continue to monitor. [id number] score of 6, high risk, yearly risk of stroke without OAC is 9.8%. Maintained on Xarelto, continue to monitor Coronary artery disease, multiple interventions in the past, most recent cardiac catheterization done March 14, 2015 revealed extensive coronary artery disease, heavily calcified system, with 40 percent distal left main coronary artery stenosis. 3 stents in LAD proximally with 50-60 percent in-stent restenosis. Distal LAD had 95 percent stenosis followed by 80 percent stenosis long segment, very small artery not amendable to intervention. Total occlusion of the first obtuse marginal branch filled by collaterals. Patent stent in the proximal mid second OM branch with moderate disease in the distal proper circumflex artery. Patent stent in the RCA with 50 percent proximal right coronary artery stenosis and 50-60 distal right coronary artery stenosis. Asymptomatic, continue to monitor Stress test in July 2016 showed fixed defect involving the whole inferior wall and inferoapical segment with dilated left ventricle, inferior wall hypokinesia, Ejection fraction 54 percent. Echocardiogram showed ejection fraction 60 percent, dilated left atrium, mild to moderate mitral regurgitation and pulmonary artery pressure of 35 mmHg. continue to monitor, Hyperlipidemia, maintained on Crestor, continue to monitor lipids. History of CVA in 2010, mild residual right sided weakness, episodes of confusion occurred over the last year where patient became confused and drove over once to [place] and once to [place]. It was felt that it was a global ischemic attack with confusion, workup at that time was negative. He was seen by Dr. Jiménez and started on Dilantin, the dose was increased by Dr. Damon, followed and managed by primary care physician Congestive heart failure, EF 45-50 percent, as well as diastolic dysfunction per most recent 2-D echocardiogram done 2018, continue with current medication Diabetes mellitus, followed and managed by primary care physician Carotid stenosis, monitored by Dr. Simmons's office Dementia, managed by primary care physician. Ex-Tobaccoism, patient smokes pipe, he stopped smoking in October, encouraged to continue with smoking cessation Peripheral neuropathy, maintained on gabapentin. Continue on current medication, continue to monitor Sleep apnea, severe on sleep study in October 2015, does not use his machine. Patient was seen and evaluated with Yee, examination performed, management plan was discussed, agree with the current scribed note, I made few changes to the note using Italic font feeling better, blood pressure is better Lungs were clear to auscultation, heart is regular. continue to monitor, no changes are recommended Clinical Quality Measures DVT/VTE Risk/Contraindication: Risk Factor Score Per Nursin RFS Level Per Nursing on Admit: 4+=Very High Supervisory-Addendum Brief Supervisory Addendum Participated in pt care: history, MDM, physical Personally performed: exam, history, MDM Care discussed with: YEE CONROY Sep 27, 2019 08:30 SEBASTIÁN ZAVALETA MD Sep 27, 2019 08:41 POS
--- NOTE | 2019-09-27 09:13 | Physical Therapy Daily Note ---
PT Daily Note-Current Subjective Pt R sidelying in bed with pillow between knees upon arrival. Pt agrees to PT. Pain Location: No Pain Reported Mental Status Patient Orientation: Person, Place Attachments: IV Transfers SCALE: Activities may be completed with or without assistive devices. 5-Dvmvalraiz-wdnjadk completes the activity by him/herself with no assistance from a helper. 5-Set-up or Clean-up Assistance-helper sets up or cleans up; patient completes activity. [place] assists only prior to or following the activity. 4-Supervision or Touching Assistance-helper provides verbal cues and/or touching/steadying and/or contact guard assistance as patient completes activity. Assistance may be provided throughout the activity or intermittently. 3-Partial/Moderate Assistance-helper does LESS THAN HALF the effort. [place] lifts, holds or supports trunk or limbs, but provides less than half the effort. 2-Substantial/Maximal Assistance-helper does MORE THAN HALF the effort. [place] lifts or holds trunk or limbs and provides more than half the effort. 2-Pyfnxectm-ebkxvj does ALL the effort. Patient does none of the effort to complete the activity. Or, the assistance of 2 or more helpers is required for the patient to complete the activity. If activity was not attempted, code reason: 7-Patient Refused. 9-Not Applicable-not attempted and the patient did not perform the activity before the current illness, exacerbation or injury. 10-Not Attempted due to Environmental Limitations-(lack of equipment, weather restraints, etc.). 88-Not Attempted due to Medical Conditions or Safety Concerns. Sit to Lying (QC): 2 Lying to Sitting/Side of Bed(Q: 2 Sit to Stand (QC): 3 Weight Bearing Full Weight Bearing Full Weight Bearing Exercises Seated Therapy Exercises: Ankle pumps, Long arc quads, Hip flexion, Kicking activity Seated Reps: 20 Treatments CARRIAGE SETTER assists pt from Supine to EOB then lengthy rests to monitor BP. After rest, Pt stands for approx. 2' before sitting back at EOB. Pt is completed twice before pt sits back again and tries to lay back in bed. Pt resting Supine in bed with all needs met, call light next to pt. Assessment Current Status: Fair Progress BP is monitored throughout Rx. Supine:144/65, EOB: 125/72 with Pulse of 75 & 115/55 with Pulse of 70. More attempts for BP readings but pt moves too much for BP to register. Pt is encouraged to continue to participate but pt continues to sit back on bed, eventually laying with assistance. Per Nurse during Rx, pt is less lethargic/more awake today compared to yesterday's Rx. PT Short Term Goals Short Term Goals Time Frame: Sep 24, 2019 Roll Left & Right: 6 Sit to lyin Lying to sitting on side of be: 6 Sit to stand: 4 (SBA) Chair/nmn-hx-bwimu transfer: 4 (SBA) Walk 10 feet: 4 (SBA) Walk 50 feet with two turns: 4 (SBA) Walk 150 feet: 4 (SBA) PT Production Foreman Goals Senior Living Goals PT Production Foreman Goals Time Frame: Oct 08, 2019 Roll Left & Right (QC): 6 Sit to Lying (QC): 6 Lying-Sitting on Side/Bed(QC): 6 Sit to Stand (QC): 6 Chair/Xpd-wc-Slswq Xfer(QC): 6 Toilet Transfer (QC): 6 Car Transfer (QC): 6 Does the Patient Walk: Yes Walk 10 feet (QC): 6 Walk 50ft with 2 Turns (QC): 6 Walk 150 ft (QC): 6 Walking 10ft on Uneven Surface: 6 1 Step (curb) (QC): 4 4 Steps (QC): 4 12 Steps (QC): 88 Picking up an Object (QC): 6 Does the Pt use WC or Scooter?: No Type: N/A Type: N/A PT Plan Problem List Problem List: Activity Tolerance, Functional Strength, Safety, Balance, Gait, Transfer, Bed Mobility Treatment/Plan Treatment Plan: Continue Plan of Care Treatment Plan: Education, Functional Activity Navya, Functional Strength, Group Therapy, Gait, Safety, Therapeutic Exercise, Transfers Treatment Duration: Oct 08, 2019 Frequency: At least 5 of 7 days/Wk (IRF) Estimated Hrs Per Day: 1.5 hours per day Patient and/or Family Agrees t: Yes Safety Risks/Education Patient Education: Transfer Techniques, Correct Positioning, Disease Process, Safety Issues Teaching Recipient: Patient Teaching Methods: Discussion Response to Teaching: Reinforcement Needed Time/GCodes Time In: 815 Time Out: 900 Total Billed Treatment Time: 45 Total Billed Treatment 1, EX (15m) & FA x2 (30m) DENY IBARRA CARRIAGE SETTER Sep 27, 2019 09:13 POS
[2019-09-27] MEDS: POLYETHYLENE GLYCOL 17 GM (MIRALAX) PACK PO SCH (09:54)
[2019-09-27] MEDS: LACTULOSE SYRUP 10GM/15ML (ENULOSE) 30ML UDC PO SCH (09:54)
--- NOTE | 2019-09-27 10:36 | PM&R Progress Note ---
Subjective HPI/CC On Admission Date Seen by Provider: Sep 27, 2019 Time Seen by Provider: 09:00 Subjective/Events-last exam After rounds primary care provider ordered chest x-ray revealing pneumonia Completed septic workup Transferring to floor due to unable to participate in therapy Check meds and labs Reviewed therapy notes Conferred with well logging captain of Systems General: Fatigue Neurological: Confusion Focused Exam Lactate Level 09/27/19 15:40: Lactic Acid Level 1.61 Objective Exam Vital Signs Vital Signs Date Time Temp Pulse Resp B/P (MAP) Pulse Ox O2 Delivery O2 Flow Rate FiO2 09/27/19 08:25 Room Air 09/27/19 06:00 36.6 67 18 156/69 (98) 93 Capillary Refill : General Appearance: No Apparent Distress, WD/WN HEENT: Normal ENT Inspection Neck: Normal Inspection Respiratory: Lungs Clear, No Accessory Muscle Use, No Respiratory Distress Cardiovascular: Regular Rate, Rhythm, No Murmur Gastrointestinal: Normal Bowel Sounds, No Organomegaly, No Pulsatile Mass, Non Tender, Soft Back: Normal Inspection, No CVA Tenderness, No Vertebral Tenderness Extremity: Normal Capillary Refill, Normal Inspection, Normal Range of Motion, Non Tender, No Calf Tenderness, No Pedal Edema Neurologic/Psychiatric: Alert, Oriented x3, No Motor/Sensory Deficits (weakness 4/5 legs, falls risk), Normal Mood/Affect, insights analyst II-XII Norm as Tested, Disoriente d (subtle poor recall), Other (tremor noted upper extremities) Skin: Normal Color, Warm/Dry Lymphatic: No Adenopathy Results/Procedures Lab Laboratory Tests 09/27/19 15:40 Patient resulted labs reviewed. FIM Transfers Therapy Code Descriptions/Definitions Functional [place] Measure: 0=Not Assessed/NA 4=Minimal Assistance 1=Total Assistance 5=Supervision or Setup 2=Maximal Assistance 6=Modified [place] 3=Moderate Assistance 7=Complete IndependenceSCALE: Activities may be completed with or without assistive devices. 2-Lqusufvaiy-kmtdsix completes the activity by him/herself with no assistance from a helper. 5-Set-up or Clean-up Assistance-helper sets up or cleans up; patient completes activity. [place] assists only prior to or following the activity. 4-Supervision or Touching Assistance-helper provides verbal cues and/or touching/steadying and/or contact guard assistance as patient completes activity. Assistance may be provided throughout the activity or intermittently. 3-Partial/Moderate Assistance-helper does LESS THAN HALF the effort. [place] lifts, holds or supports trunk or limbs, but provides less than half the effort. 2-Substantial/Maximal Assistance-helper does MORE THAN HALF the effort. [place] lifts or holds trunk or limbs and provides more than half the effort. 6-Nzcsgtpsu-komeki does ALL the effort. Patient does none of the effort to complete the activity. Or, the assistance of 2 or more helpers is required for the patient to complete the activity. If activity was not attempted, code reason: 7-Patient Refused. 9-Not Applicable-not attempted and the patient did not perform the activity before the current illness, exacerbation or injury. 10-Not Attempted due to Environmental Limitations-(lack of equipment, weather restraints, etc.). 88-Not Attempted due to Medical Conditions or Safety Concerns. Roll Left to Right (QC): 2 Sit to Lying (QC): 2 Sit to Stand (QC): 3 Chair/Pzg-li-Wdzqu Xfer(QC): 3 Car Transfer (QC): 4 Gait Training Does the Patient Walk?: Yes Distance: 200' Walk 10 feet (QC): 88 Walk 50 ft with 2 Turns(QC): 88 Walk 150 ft (QC): 88 Walking 10ft/uneven surface-QC: 4 Gait Persons Needed: 1 Gait Assistive Device: FWW Wheelchair Training Does the Pt Use a Wheelchair?: Yes Wheel 50 ft with 2 turns (QC): 9 Wheel 150 ft (QC): 4 Type of Wheelchair: Manual Stair Training #of Steps: 1 1 Step (curb) (QC): 4 4 Steps (QC): 88 12 Steps (QC): 88 Balance Picking up an Object (QC): 4 ADL-Treatment Eating (QC): 6 Oral Hygiene (QC): 7 Shower/Bathe Self (QC): 7 Upper Body Dressing (QC): 5 Lower Body Dressing (QC): 3 (Pt changes into sweat pants- pt completed laundry routine previous day. No clean clothes in closet, pt states may have taken clothing home. Nursing notified of missing/ potentially sent home clothing items. Pt requires mod A to thread BLE through pants. Pt able to pull to knees and past hips with SBA.) On/Off Footwear (QC): 3 (Help to put socks on but able to take them off with initiation cues) Toileting Hygiene (QC): 4 (Pt requires mod A for righting self, requires sit to EOB during bottom hygiene. 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
[2019-09-27] MEDS: CLOPIDOGREL 75 MG (PLAVIX) TABLET PO SCH (10:48)
[2019-09-27] MEDS: PANTOPRAZOLE 40 MG (PROTONIX) TAB PO SCH (10:48)
[2019-09-27] MEDS: SENNA W/DOCUSATE (SENOKOT S) TABLET PO SCH (10:48)
[2019-09-27] MEDS: DOCUSATE SODIUM 100 MG (COLACE) CAP PO SCH (10:49)
[2019-09-27] MEDS: SINEMET CR 50/200 (CARBIDOPA/LEVODOPA SA) TAB PO SCH ×2 (10:49→13:53)
[2019-09-27] MEDS: ACETAMINOPHEN 500 MG TAB (TYLENOL) PO PRN (11:02)
--- NOTE | 2019-09-27 11:19 | Progress Note - Urology ---
Progress Note-Urology Progress Notes/Assess & Plan Progress/Assessment & Plan VOIDING WELL. PVR 115. BP BETTER. KEEP SAME. Final Diagnosis URINE RETENTION EVERTON GARCIA MD Sep 27, 2019 11:19 POS
--- NOTE | 2019-09-27 13:35 | Occupational Ther Daily Note ---
OT Current Status-Daily Note Subjective Pt seen in bed, agreeable to OT tx session. Pt states no current pain but later through tx states he is in pain in R ribs. Mental Status/Objective Patient Orientation: Person ADL-Treatment Therapy Code Descriptions/Definitions Functional [place] Measure: 0=Not Assessed/NA 4=Minimal Assistance 1=Total Assistance 5=Supervision or Setup 2=Maximal Assistance 6=Modified [place] 3=Moderate Assistance 7=Complete IndependenceSCALE: Activities may be completed with or without assistive devices. 8-Ebkqgjxeuz-jcvqjdh completes the activity by him/herself with no assistance from a helper. 5-Set-up or Clean-up Assistance-helper sets up or cleans up; patient completes activity. [place] assists only prior to or following the activity. 4-Supervision or Touching Assistance-helper provides verbal cues and/or touching/steadying and/or contact guard assistance as patient completes activity. Assistance may be provided throughout the activity or intermittently. 3-Partial/Moderate Assistance-helper does LESS THAN HALF the effort. [place] lifts, holds or supports trunk or limbs, but provides less than half the effort. 2-Substantial/Maximal Assistance-helper does MORE THAN HALF the effort. [place] lifts or holds trunk or limbs and provides more than half the effort. 8-Sugwoaogp-yiypmb does ALL the effort. Patient does none of the effort to complete the activity. Or, the assistance of 2 or more helpers is required for the patient to complete the activity. If activity was not attempted, code reason: 7-Patient Refused. 9-Not Applicable-not attempted and the patient did not perform the activity before the current illness, exacerbation or injury. 10-Not Attempted due to Environmental Limitations-(lack of equipment, weather restraints, etc.). 88-Not Attempted due to Medical Conditions or Safety Concerns. Eating (QC): 6 (Pt able to bring drink to mouth and swallow. ) Oral Hygiene (QC): 7 (Pt refused, states he does not need to at the time.) Shower/Bathe Self (QC): 3 (Pt requires assist with bilateral feet (bottoms), bottom, and back.) Upper Body Dressing (QC): 5 (s/u) Lower Body Dressing (QC): 2 (Max A on this date due to fatigue. BLE threaded and pulled to hips, pt completes rolling in bed to complete donning over hips.) Toileting Hygiene (QC): 1 (TD on this date due to pt fatigue and BP. completed in bed during roll.) Toilet Transfer (QC): 88 (OOB activity not completed on this date due to pt's BP readings. Pt denies need for bathroom.) on/ off footwear: 3: Pt able to doff/ don RLE with encouragement, required assist with LLE. Other Treatment Pt seen in bed, vitals assessed in supine: 127/57. Pt completes bed mob to EOB with max Ax2 (nursing present). Pt's vitals EOB: 157/61, assessed again 5 min post-EOB: 146/61. Pt completes sponge bath EOB, prior to stance pt's vitals assessed in sittin/52. Pt requests to lay down, lays to the side with feet off bed, SUP provided throughout. Pt denies lifting legs into bed or sitting to complete sponge bath. Pt denies sitting up, rest given to pt, pt denies again stating he needs more minutes. BP taken while pt side-lying with feet down: BP 80/30. Pt offered coffee, pt willing to sit up for coffee but strength declined requiring max Ax1 to sit upright. Pt unable to maintain sit, required laying down supine with TD. Pt lays supine, BP reads 122/56. Pt completes rolls in bed to complete LB dressing. Pt denies further ADLs, BP and energy limits abilities to complete OOB activities. Pt left in bed, call light in reach, all needs met. Education OT Patient Education: Correct positioning, Modified ADL techniques, Safety issues, Transfer techniques Teaching Recipient: Patient Teaching Methods: Demonstration, Discussion Response to Teaching: Verbalize Understanding, Return Demonstration, Reinforcement Needed OT Short Term Goals Short Term Goals Time Frame: Sep 26, 2019 Toileting hygiene: 4 (met) Lower body dressin (met) Putting on/taking off footwear: 4 OT Snf Goals Groundskeeper Porter Goals Time Frame: Oct 04, 2019 Eating (QC): 5 (met) Oral Hygiene (QC): 5 Toileting Hygiene (QC): 5 Shower/Bathe Self (QC): 5 Upper Body Dressing (QC): 5 (met) Lower Body Dressing (QC): 5 On/Off Footwear (QC): 5 Additional Goals: 1-Demonstrate ADL Tasks, 2-Verbalize Understanding, 3-ImproveStrength/Nav[place] 1=Demonstrate adherence to instructed precautions during ADL tasks. 2=Patient will verbalize/demonstrate understanding of assistive devices/modifications for ADL. 3=Patient will improve strength/tolerance for activity to enable patient to perform ADL's. OT Education/Plan Problem List/Assessment Assessment: Decreased Activ Tolerance, Decreased Safety Aware, Decreased UE Strength, Dependent Transfers, Impaired Cognition, Impaired Funct Balance, Impaired I ADL's, Impaired Self-Care Skills Pt would benefit from skilled OT to increase his independence with basic self care to allow him to safely return home and decrease risk of falling. Discharge Recommendations Plan/Recommendations: Continue POC Therapy Discharge Recommendati: 24 Hour Supervision (due to pt's declined transfer ability and ADL abilities) Treatment Plan/Plan of Care Treatment,Training & Education: Yes Patient would benefit from OT for education, treatment and training to promote independence in ADL's, mobility, safety and/or upper extremity function for ADL's. Plan of Care: ADL Retraining, Functional Mobility, Group Exercise/Act as Ind (education, exercise, activity tolerance, functional mobility, socialization, memory), UE Funct Exercise/Act, UE Neuromus Re-Ed/Coord Treatment Duration: Oct 04, 2019 Frequency: At least 5 of 7 days/Wk (IRF) Estimated Hrs Per Day: 1.5 hours per day (1.25 to 1.5) Agreement: Yes Rehab Potential: Fair Time/GCodes Start Time: 10:45 Stop Time: 11:45 Total Time Billed (hr/min): 60 Billed Treatment Time 1, ADL 4 (60) TYRA ALEJO OTR Sep 27, 2019 13:35 POS
--- NOTE | 2019-09-27 13:42 | Occupational Ther Daily Note ---
OT Current Status-Daily Note Subjective Pt seen in bed, nursing executive prepping food for pt. Pt agreeable to OT tx session, PT and join session. PT/ OT cotreat to discuss pt abilities with and to address pt safety and endurance. OT focused on feeding and ADL abilities while PT focused on gross motor and endurance abilities. Mental Status/Objective Patient Orientation: Person ADL-Treatment Therapy Code Descriptions/Definitions Functional [place] Measure: 0=Not Assessed/NA 4=Minimal Assistance 1=Total Assistance 5=Supervision or Setup 2=Maximal Assistance 6=Modified [place] 3=Moderate Assistance 7=Complete IndependenceSCALE: Activities may be completed with or without assistive devices. 7-Tzxuchamuz-raelamo completes the activity by him/herself with no assistance from a helper. 5-Set-up or Clean-up Assistance-helper sets up or cleans up; patient completes activity. [place] assists only prior to or following the activity. 4-Supervision or Touching Assistance-helper provides verbal cues and/or touching/steadying and/or contact guard assistance as patient completes a ctivity. Assistance may be provided throughout the activity or intermittently. 3-Partial/Moderate Assistance-helper does LESS THAN HALF the effort. [place] lifts, holds or supports trunk or limbs, but provides less than half the effort. 2-Substantial/Maximal Assistance-helper does MORE THAN HALF the effort. [place] lifts or holds trunk or limbs and provides more than half the effort. 9-Uwifykvhc-ocpbqy does ALL the effort. Patient does none of the effort to complete the activity. Or, the assistance of 2 or more helpers is required for the patient to complete the activity. If activity was not attempted, code reason: 7-Patient Refused. 9-Not Applicable-not attempted and the patient did not perform the activity before the current illness, exacerbation or injury. 10-Not Attempted due to Environmental Limitations-(lack of equipment, weather restraints, etc.). 88-Not Attempted due to Medical Conditions or Safety Concerns. Eating (QC): 4 (With feeding tasks, pt's provides cues for feeding and endurance. Pt and educated on AE and positioning for increased IND with feeding. Pt's LUE (dominant) propped with pillow, pt given built up handles for increased success and endurance for feeding tasks. ) Oral Hygiene (QC): 7 Toileting Hygiene (QC): 7 Toilet Transfer (QC): 7 Other Treatment Pt denies need for toileting, states he has not needed to go. Pt completes feeding while in bed. Pt positioned for success and increased endurance. Pt's educated on AE and positioning techniques, pt's provides cues for pt's initiation of feeding task. Pt asked once more if he needs toilet, denies. Pt encouraged to complete EOB activities for PT, pt declines, stating, "No." Pt left in bed with PT and present, all needs met, call light in reach. Education OT Patient Education: Correct positioning, Energy conservation, Instructions to caregiver, Modified ADL techniques, Purpose of tx/functional activities, Safety issues, Use of adapted equipment Teaching Recipient: Patient, Significant Other Teaching Methods: Demonstration, Discussion Response to Teaching: Verbalize Understanding, Return Demonstration, Reinforcement Needed OT Short Term Goals Short Term Goals Time Frame: Sep 26, 2019 Toileting hygiene: 4 (met) Lower body dressin (met) Putting on/taking off footwear: 4 OT Kst Operator Goals Kst Operator Goals Time Frame: Oct 04, 2019 Eating (QC): 5 (met) Oral Hygiene (QC): 5 Toileting Hygiene (QC): 5 Shower/Bathe Self (QC): 5 Upper Body Dressing (QC): 5 (met) Lower Body Dressing (QC): 5 On/Off Footwear (QC): 5 Additional Goals: 1-Demonstrate ADL Tasks, 2-Verbalize Understanding, 3- ImproveStrength/[place] 1=Demonstrate adherence to instructed precautions during ADL tasks. 2=Patient will verbalize/demonstrate understanding of assistive devic es/modifications for ADL. 3=Patient will improve strength/tolerance for activity to enable patient to perform ADL's. OT Education/Plan Problem List/Assessment Assessment: Decreased Activ Tolerance, Decreased Safety Aware, Decreased UE Strength, Dependent Transfers, Impaired Cognition, Impaired Funct Balance, Impaired I ADL's, Impaired Self-Care Skills Pt would benefit from skilled OT to increase his independence with basic self care to allow him to safely return home and decrease risk of falling. Discharge Recommendations Plan/Recommendations: Continue POC Therapy Discharge Recommendati: 24 Hour Supervision Treatment Plan/Plan of Care Treatment,Training & Education: Yes Patient would benefit from OT for education, treatment and training to promote independence in ADL's, mobility, safety and/or upper extremity function for ADL's. Plan of Care: ADL Retraining, Functional Mobility, Group Exercise/Act as Ind (education, exercise, activity tolerance, functional mobility, socialization, memory), UE Funct Exercise/Act, UE Neuromus Re-Ed/Coord Treatment Duration: Oct 04, 2019 Frequency: At least 5 of 7 days/Wk (IRF) Estimated Hrs Per Day: 1.5 hours per day (1.25 to 1.5) Agreement: Yes Rehab Potential: Fair Time/GCodes Start Time: 12:55 Stop Time: 12:25 Total Time Billed (hr/min): 30 Billed Treatment Time 1, ADL (30) cotreat OT/ PT from [id number] TYRA ALEJO OTR Sep 27, 2019 13:42 POS
--- NOTE | 2019-09-27 13:59 | Diagnostic Imaging Report ---
EXAMINATION: Portable erect AP chest at 1:43 p.m. INDICATION: Congestive failure. FINDINGS: There is shallow inspiration when compared to the prior exam of 09/15/2019. Allowing for this technical factor, the heart is enlarged but stable. The left-sided pacemaker seen previously is again evident and no different. In the interval since the prior study, a vague area of increased density has developed in the right lung base. This may be secondary to mild pneumonia/atelectasis. A small amount of atelectasis/infiltrate is also now present in the left retrocardiac region. The upper lungs are generally clear. The central pulmonary vascularity does not appear to be engorged, and there is no evidence for overt failure at this time. The mediastinum is not widened. The osseous structures are intact. IMPRESSION: 1. The appearance of the chest has worsened since the prior study as mild bibasilar pneumonia/atelectasis has developed. There is greater involvement on the right. 2. There is persistent cardiomegaly, but there is no evidence for pulmonary congestion. Dictated by: Dictated on workstation # [id number]
--- NOTE | 2019-09-27 14:24 | Physical Therapy Daily Note ---
PT Daily Note-Current Subjective Pt siting up in bed attempting to eat lunch upon arrival. Sp & OT were present. Pt agrees to PT for co-treat. Pain Location: No Pain Reported Mental Status Patient Orientation: Person, Place Transfers SCALE: Activities may be completed with or without assistive devices. 8-Ofdshwsfrj-bkiehut completes the activity by him/herself with no assistance from a helper. 5-Set-up or Clean-up Assistance-helper sets up or cleans up; patient completes activity. [place] assists only prior to or following the activity. 4-Supervision or Touching Assistance-helper provides verbal cues and/or touching/steadying and/or contact guard assistance as patient completes activity. Assistance may be provided throughout the activity or intermittently. 3-Partial/Moderate Assistance-helper does LESS THAN HALF the effort. [place] lifts, holds or supports trunk or limbs, but provides less than half the effort. 2-Substantial/Maximal Assistance-helper does MORE THAN HALF the effort. [place] lifts or holds trunk or limbs and provides more than half the effort. 9-Nmijdhlce-ddyamk does ALL the effort. Patient does none of the effort to complete the activity. Or, the assistance of 2 or more helpers is required for the patient to complete the activity. If activity was not attempted, code reason: 7-Patient Refused. 9-Not Applicable-not attempted and the patient did not perform the activity before the current illness, exacerbation or injury. 10-Not Attempted due to Environmental Limitations-(lack of equipment, weather restraints, etc.). 88-Not Attempted due to Medical Conditions or Safety Concerns. Weight Bearing Full Weight Bearing Full Weight Bearing Exercises Supine Ex: Ankle pumps, Quad Set, Glut sets, Heel Slides, Hip abd/add Supine Reps: 15 Treatments OT works on ADLs especially eating/feeding self. PT works on sitting balance & LE strengthening Ex. Pt has all needs met, call light next to pt. Assessment Current Status: Good Progress BP at beginning of Rx is 136/58 with a Pulse of 60in sitting position in bed. Pt is able to comprehend and follow directions given better during Rx. Pt still needs encouragement to participate. PT Short Term Goals Short Term Goals Time Frame: Sep 24, 2019 Roll Left & Right: 6 Sit to lyin Lying to sitting on side of be: 6 Sit to stand: 4 (SBA) Chair/cgc-ii-sapos transfer: 4 (SBA) Walk 10 feet: 4 (SBA) Walk 50 feet with two turns: 4 (SBA) Walk 150 feet: 4 (SBA) PT Correction Goals Correction Goals PT Aquarium Tank Attendant Goals Time Frame: Oct 08, 2019 Roll Left & Right (QC): 6 Sit to Lying (QC): 6 Lying-Sitting on Side/Bed(QC): 6 Sit to Stand (QC): 6 Chair/Owv-ae-Asqed Xfer(QC): 6 Toilet Transfer (QC): 6 Car Transfer (QC): 6 Does the Patient Walk: Yes Walk 10 feet (QC): 6 Walk 50ft with 2 Turns (QC): 6 Walk 150 ft (QC): 6 Walking 10ft on Uneven Surface: 6 1 Step (curb) (QC): 4 4 Steps (QC): 4 12 Steps (QC): 88 Picking up an Object (QC): 6 Does the Pt use WC or Scooter?: No Type: N/A Type: N/A PT Plan Problem List Problem List: Activity Tolerance, Functional Strength, Safety, Balance, Gait, Transfer Treatment/Plan Treatment Plan: Continue Plan of Care Treatment Plan: Education, Functional Activity Nav[place], Functional Strength, Group Therapy, Gait, Safety, Therapeutic Exercise, Transfers Treatment Duration: Oct 08, 2019 Frequency: At least 5 of 7 days/Wk (IRF) Estimated Hrs Per Day: 1.5 hours per day Patient and/or Family Agrees t: Yes Safety Risks/Education Patient Education: Correct Positioning, Safety Issues Teaching Recipient: Patient, Significant Other Teaching Methods: Discussion Response to Teaching: Verbalize Understanding, Reinforcement Needed Time/GCodes Time In: 1300 Time Out: 1330 Total Billed Treatment Time: 30 Total Billed Treatment 1, FA (15m) & Ex (15m) DENY IBARRA ENERGY RISK MANAGEMENT ANALYST Sep 27, 2019 14:24 POS
--- NOTE | 2019-09-27 14:31 | NUR ---
SS Concurrent Note Visited with patient and spouse Manisha today. Patient participation with therapy noted declined. PCP Dr. Damon ordered chest xray, results to be confirmed with him and unit medical technologist clinical, await next steps. Family continue to desire to take patient home upon discharge from ARU. A son has committed to stay several weeks, spouse and other children will schedule their available time to assist as well. Updated Manisha that if they found they could not provide necessary care at home patient could be admitted from home to community SNF within 30 days of discharge and still access Medicare skilled benefits. Patient has established DME at home, no new needs identified thus far. [facility] discharge had been for 09/28/19; review in a.m. for current findings and care plan.
--- NOTE | 2019-09-27 15:27 | Speech Therapy Daily Note ---
Speech Daily Progress Note Subjective Date Seen by Provider: Sep 27, 2019 Time Seen by Provider: 00:30 Patient was resting in his bed watching television. Objective Patient completed a series of memory tasks related to his daily routine/needs at 50% with 50% cuing. Assessment Assessment Current Status: Poor Progress Treatment Plan Continue Plan of Care Speech Short Term Goals Short Term Goals Short Term Goals 1) The patient will complete memory tasks related to her daily needs at 90% or greater with minimal cues. 2) The patient will complete safety awareness tasks related to her daily needs at 90% or greater with minimal cues. 3) The patient will complete problem solving tasks related to her daily needs at 90% or greater with minimal cues. Speech Senior Living Goals Lobster Catcher Goals The patient will improve cognitive-communication necessary for safety and daily living tasks with minimal assist. Speech-Plan Patient/Family Goals Patient/Family Goals: Patient plans on returning home with his post rehab. Treatment Plan Speech Therapy Treatment Plan: Continue Plan of Care Patient will be discharged from skilled therapy due to pneumonia. Treatment Duration: Sep 30, 2019 Frequency: 5 times per week Estimated Hrs Per Day: .5 hour per day Rehab Potential: Fair Barriers to Learning: Moderate cognitive deficits Pt/Family Agrees to Plan: Yes Safety Risks/Education Teaching Recipient: Patient Teaching Methods: Discussion Response to Teaching: Verbalize Understanding Education Topics Provided: Continued safety Time Speech Therapy Time In: 14:00 Speech Therapy Time Out: 14:30 Total Billed Time: 30 Billed Treatment Time 1, SLTS No QUALITY CODES: EXPRESSION OF IDEAS/WANTS: 2 UNDERSTANDING VERBAL CONTENT: 3 BRIEF INTERVIEW MENTAL STATUS: YES REPETITION OF 3 WORDS: 3 TEMPORAL ORIENTATION: YEAR: MISS BY 1 YEAR, MONTH: NO ANSWER, DAY: INCORRECT RECALL SOCK: NO, COLOR: NO, BED: NO MEMORY/RECALL ABILITY: NONE OF THE ABOVE PATRICK HAWTHORNE Sep 27, 2019 15:27 POS
[2019-09-27] MEDS ORDERED: PIPERACILLIN/TAZO 4.5 GM/NS 100 ML IV NR ×2 (16:00)
[2019-09-27 16:03] LABS: BASOPHILS % (AUTO) 0 % (0-10); EOSINOPHILS # (AUTO) 0.2 10^3/uL (0.0-0.3); EOSINOPHILS % (AUTO) 2 % (0-10); HEMATOCRIT 27 % (40-54); LYMPHOCYTES # (AUTO) 1.2 X 10^3 (1.0-4.0); LYMPHOCYTES % (AUTO) 13 % (12-44); MEAN CORPUSCULAR HEMOGLOBIN 32 PG (25-34); MEAN CORPUSCULAR HGB CONC 33 G/DL (32-36); MEAN CORPUSCULAR VOLUME 96 FL (80-99); MONOCYTES # (AUTO) 0.8 X 10^3 (0.0-1.0); MONOCYTES % (AUTO) 9 % (0-12); NEUTROPHILS # (AUTO) 7.4 X 10^3 (1.8-7.8); NEUTROPHILS % (AUTO) 77 % (42-75); PLATELET COUNT 227 10^3/uL (130-400); RED CELL DISTRIBUTION WIDTH 13.7 % (10.0-14.5); WHITE BLOOD COUNT 9.7 10^3/uL (4.3-11.0)
[2019-09-27 16:20] LABS: ALBUMIN 2.7 GM/DL (3.2-4.5); BILIRUBIN,TOTAL 0.8 MG/DL (0.1-1.0); CALCIUM 8.7 MG/DL (8.5-10.1); CREATININE SERUM 1.45 MG/DL (0.60-1.30); POTASSIUM 4.8 MMOL/L (3.6-5.0); TOTAL PROTEIN 5.7 GM/DL (6.4-8.2)
[2019-09-27] MEDS ORDERED: PIPERACILLIN/TAZOBACTAM (BULK) 4.5 GM in NS (IVPB) 100 ML IV SCH (22:00)
--- NOTE | 2019-09-28 08:59 | Therapy Team Discharge Summary ---
Therapy Discharge Summary Discharge Recommendations Date of Discharge Occupational Therapy Decreased Activ Tolerance, Decreased Safety Aware, Decreased UE Strength, Dependent Transfers, Impaired Cognition, Impaired Funct Balance, Impaired I ADL's, Impaired Self-Care Skills Speech-Language Pathology Patient was admitted to the ARU due to falls and debility. Patient was given the SLUMS with a cognitive deficit noted. Patient received skilled ST, however patient did not progress well. Patient was discharged to the acute floor yesterday due to pneumonia. Patient was discharged from skilled ST at that time. PT Group Home Goals Fabrication Welder Goals PT Group Home Goals Time Frame: Oct 08, 2019 Roll Left to Right (QC): 6 Sit to Lying (QC): 6 Lying-Sitting on Side/Bed(QC): 6 Sit to Stand (QC): 6 Chair/Wcc-ux-Hxrrg Xfer(QC): 6 Car Transfer (QC): 6 Does the Patient Walk: Yes Walk 10 feet (QC): 6 Walk 10ft-Uneven Surface(QC): 6 Walk 50ft with 2 Turns (QC): 6 Walk 150 ft (QC): 6 Does the Pt use WC or Scooter?: No 1 Step (curb) (QC): 4 4 Steps (QC): 4 12 Steps (QC): 88 Picking up an Object (QC): 6 OT Group Home Goals Fabrication Welder Goals Time Frame: Oct 04, 2019 Eating (QC): 5 (met) Oral Hygiene (QC): 5 Shower/Bathe Self (QC): 5 Upper Body Dressing (QC): 5 (met) Lower Body Dressing (QC): 5 On/Off Footwear (QC): 5 Toileting Hygiene (QC): 5 Toilet/Commode Transfer (QC): 6 Additional Goals: 1-Demonstrate ADL Tasks, 2-Verbalize Understanding, 3-Improve Strength/[place] 1=Demonstrate adherence to instructed precautions during ADL tasks. 2=Patient will verbalize/demonstrate understanding of assistive devices/modifications for ADL. 3=Patient will improve strength/tolerance for activity to enable patient to pe rform ADL's. Speech Group Home Goals Fabrication Welder Goals The patient will improve cognitive-communication necessary for safety and daily living tasks with minimal assist. PATRICK HAWTHORNE Sep 28, 2019 08:59
--- NOTE | 2019-09-28 12:52 | Therapy Team Discharge Summary ---
Therapy Discharge Summary Discharge Recommendations Date of Discharge Sep 27, 2019 at 16:02 Occupational Therapy Pt admits with debility and Parkinson's with therapy admit dx of decreased ADL ability. Pt admitting QC's include: eating min A, shower mod A, UB dress min A, LB mod-max A, toilet hygiene mod A, and toilet transfer CGA. Pt and OT work toward increased IND with ADL abilities through ADL reeducation, safety issues and UB endurance/ strengthening. Pt limited by vitals/ low BP, fatigue, and limited endurance. During stay at [facility], pt did not attain LTGs. Pt d/c with UB s/u, LB min-mod A, footwear mod A, toileting hygiene 1, toilet transfer 7. Pt d/c to acute floor due to medical dx of pneumonia. Pt and family plan to return home, HH OT recommended. Decreased Activ Tolerance, Decreased Safety Aware, Decreased UE Strength, Dependent Transfers, Impaired Cognition, Impaired Funct Balance, Impaired I ADL's, Impaired Self-Care Skills PT Fdc Goals Fdc Goals PT Fdc Goals Time Frame: Oct 08, 2019 Roll Left to Right (QC): 6 Sit to Lying (QC): 6 Lying-Sitting on Side/Bed(QC): 6 Sit to Stand (QC): 6 Chair/Jrc-mg-Ymmma Xfer(QC): 6 Car Transfer (QC): 6 Does the Patient Walk: Yes Walk 10 feet (QC): 6 Walk 10ft-Uneven Surface(QC): 6 Walk 50ft with 2 Turns (QC): 6 Walk 150 ft (QC): 6 Does the Pt use WC or Scooter?: No 1 Step (curb) (QC): 4 4 Steps (QC): 4 12 Steps (QC): 88 Picking up an Object (QC): 6 OT Fdc Goals Fdc Goals Time Frame: Oct 04, 2019 Eating (QC): 5 (met) Oral Hygiene (QC): 5 Shower/Bathe Self (QC): 5 Upper Body Dressing (QC): 5 (met) Lower Body Dressing (QC): 5 On/Off Footwear (QC): 5 Toileting Hygiene (QC): 5 Toilet/Commode Transfer (QC): 6 Additional Goals: 1-Demonstrate ADL Tasks, 2-Verbalize Understanding, 3- ImproveStrength/[place] 1=Demonstrate adherence to instructed precautions during ADL tasks. 2=Patient will verbalize/demonstrate understanding of assistive devices/modifications for ADL. 3=Patient will improve strength/tolerance for activity to enable patient to perform ADL's. Speech Fdc Goals Fdc Goals The patient will improve cognitive-communication necessary for safety and daily living tasks with minimal assist. TYRA ALEJO OTR Sep 28, 2019 12:52
--- NOTE | 2019-09-28 15:17 | Discharge Summary ---
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 Fall without injury Severe orthostasis stopping meds to try to help Plan: Transfer to fourth floor Discharge Summary Discharge Physical Examination Allergies: Coded Allergies: No Known Drug Allergies (Unverified , 09/06/18) Vitals & I&Os Vital Signs Date Time Temp Pulse Resp B/P (MAP) Pulse Ox O2 Delivery O2 Flow Rate FiO2 09/27/19 08:25 Room Air 09/27/19 06:00 36.6 67 18 156/69 (98) 93 General Appearance: Alert, Cooperative Respiratory: Other (crackles) Skin: No Rashes, No Breakdown Hospital Course Was the Problem List Reviewed?: Yes Hospital course: Pt had an uneventful hospital course for 11 days, he was able to participate in therapy quite a bit until the orthostatic hypotension from Parkinson's remained difficult to manage. Chest X-ray was checked by Dr. Damon at day of transfer up to fourth floor finding pneumonia and since he couldn't participate he was in need of pneumonia treatment so he was transferred up to fourth floor but overall, Dr. Damon, Dr. Karimi and Dr. Villanueva will watch patient closely and continue all home medication but orthostatic hypotension remains and issue, confusion from dementia was also an issue placing Pt at risk for likely discharge to a [facility]. Labs (last 24 hrs) Laboratory Tests 09/17/19 20:55: Glucometer 197H 09/18/19 05:10: Glucometer 122H 09/18/19 05:12: White Blood Count 7.2, Red Blood Count 3.25L, Hemoglobin 10.1L, Hematocrit 30L, Mean Corpuscular Volume 92, Mean Corpuscular Hemoglobin 31, Mean Corpuscular Hemoglobin Concent 34, Red Cell Distribution Width 12.5, Platelet Count 189, Mean Platelet Volume 11.0H, Neutrophils (%) (Auto) 54, Lymphocytes (%) (Auto) 31, Monocytes (%) (Auto) 10, Eosinophils (%) (Auto) 5, Basophils (%) (Auto) 0, Neutrophils # (Auto) 3.9, Lymphocytes # (Auto) 2.2, Monocytes # (Auto) 0.7, Eosinophils # (Auto) 0.3, Basophils # (Auto) 0.0, Sodium Level 137, Potassium Level 4.1, Chloride Level 104, Carbon Dioxide Level 24, Anion Gap 9, Blood Urea Nitrogen 15, Creatinine 0.97, Estimat Glomerular Filtration Rate > 60, BUN/Creatinine Ratio 15, Glucose Level 116H, Calcium Level 8.9, Corrected Calcium 9.9, Total Bilirubin 0.7, Aspartate Amino Transf (AST/SGOT) 20, Alanine Aminotransferase (ALT/SGPT) 16, Alkaline Phosphatase 116, Total Protein 5.4L, Albumin 2.7L 09/18/19 11:07: Glucometer 188H 09/18/19 15:11: Glucometer 230H 09/18/19 20:18: Glucometer 240H 09/19/19 05:48: Glucometer 100 09/19/19 06:34: White Blood Count 7.1, Red Blood Count 3.27L, Hemoglobin 10.2L, Hematocrit 31L, Mean Corpuscular Volume 93, Mean Corpuscular Hemoglobin 31, Mean Corpuscular Hemoglobin Concent 33, Red Cell Distribution Width 12.7, Platelet Count 178, Mean Platelet Volume 11.2H, Neutrophils (%) (Auto) 52, Lymphocytes (%) (Auto) 33, Monocytes (%) (Auto) 11, Eosinophils (%) (Auto) 4, Basophils (%) (Auto) 0, Neutrophils # (Auto) 3.7, Lymphocytes # (Auto) 2.3, Monocytes # (Auto) 0.8, Eosinophils # (Auto) 0.3, Basophils # (Auto) 0.0, Sodium Level 137, Potassium Level 3.9, Chloride Level 106, Carbon Dioxide Level 24, Anion Gap 7, Blood Urea Nitrogen 16, Creatinine 1.08, Estimat Glomerular Filtration Rate > 60, BUN/Creatinine Ratio 15, Glucose Level 95, Calcium Level 8.8, Corrected Calcium 9.8, Total Bilirubin 0.6, Aspartate Amino Transf (AST/SGOT) 17, Alanine Aminotra nsferase (ALT/SGPT) 16, Alkaline Phosphatase 118, Total Protein 5.3L, Albumin 2.7L 09/19/19 11:06: Glucometer 215H 09/19/19 15:40: Glucometer 216H 09/19/19 20:13: Glucometer 304H 09/20/19 05:44: Glucometer 150H 09/20/19 11:14: Glucometer 229H 09/20/19 11:42: Glucometer 215H 09/20/19 15:26: Glucometer 279H 09/20/19 20:18: Glucometer 239H 09/21/19 05:20: White Blood Count 7.9, Red Blood Count 3.13L, Hemoglobin 9.7L, Hematocrit 29L, Mean Corpuscular Volume 93, Mean Corpuscular Hemoglobin 31, Mean Corpuscular Hemoglobin Concent 33, Red Cell Distribution Width 12.8, Platelet Count 182, Mean Platelet Volume 11.2H, Sodium Level 137, Potassium Level 4.1, Chloride Level 105, Carbon Dioxide Level 24, Anion Gap 8, Blood Urea Nitrogen 19H, Creatinine 1.02, Estimat Glomerular Filtration Rate > 60, BUN/Creatinine Ratio 19, Glucose Level 99, Calcium Level 8.9, Corrected Calcium 10.0, Magnesium Level 2.0, Total Bilirubin 0.6, Aspartate Amino Transf (AST/SGOT) 18, Alanine Aminotransferase (ALT/SGPT) < 6, Alkaline Phosphatase 132, Total Protein 5.3L, Albumin 2.6L 09/21/19 05:22: Glucometer 110 09/21/19 10:48: Glucometer 170H 09/21/19 15:34: Glucometer 258H 09/21/19 20:39: Glucometer 299H 09/22/19 05:33: Glucometer 148H 09/22/19 10:48: Glucometer 191H 09/22/19 16:11: Glucometer 367H 09/22/19 20:55: Glucometer 364H 09/23/19 05:25: White Blood Count 9.0, Red Blood Count 3.44L, Hemoglobin 10.6L, Hematocrit 32L, Mean Corpuscular Volume 92, Mean Corpuscular Hemoglobin 31, Mean Corpuscular Hemoglobin Concent 34, Red Cell Distribution Width 13.1, Platelet Count 188, Mean Platelet Volume 11.1H, Sodium Level 136, Potassium Level 4.2, Chloride Level 105, Carbon Dioxide Level 21, Anion Gap 10, Blood Urea Nitrogen 21H, Creatinine 0.88, Estimat Glomerular Filtration Rate > 60, BUN/Creatinine Ratio 24, Glucose Level 128H, Calcium Level 9.2 09/23/19 05:54: Glucometer 151H 09/23/19 11:00: Glucometer 391H 09/23/19 15:30: Glucometer 363H 09/23/19 20:48: Glucometer 395H 09/24/19 06:12: Glucometer 160H 09/24/19 12:10: Glucometer 262H 09/24/19 15:56: Glucometer 294H 09/24/19 20:33: Glucometer 325H 09/25/19 05:50: Glucometer 191H 09/25/19 10:51: Glucometer 326H 09/25/19 16:00: Glucometer 363H 09/25/19 18:31: Glucometer 312H 09/25/19 20:55: Glucometer 277H 09/26/19 05:50: Glucometer 172H 09/26/19 06:50: White Blood Count 8.6, Red Blood Count 2.85L, Hemoglobin 9.0L, Hematocrit 27L, Mean Corpuscular Volume 95, Mean Corpuscular Hemoglobin 32, Mean Corpuscular Hemoglobin Concent 33, Red Cell Distribution Width 13.4, Platelet Count 193, Mean Platelet Volume 10.9H, Neutrophils (%) (Auto) 62, Lymphocytes (%) (Auto) 25, Monocytes (%) (Auto) 10, Eosinophils (%) (Auto) 4, Basophils (%) (Auto) 0, Neutrophils # (Auto) 5.4, Lymphocytes # (Auto) 2.1, Monocytes # (Auto) 0.8, Eosinophils # (Auto) 0.3, Basophils # (Auto) 0.0, Sodium Level 135, Potassium Level 4.3, Chloride Level 102, Carbon Dioxide Level 27, Anion Gap 6, Blood Urea Nitrogen 28H, Creatinine 1.18, Estimat Glomerular Filtration Rate 60, BUN/Creatinine Ratio 24, Glucose Level 156H, Calcium Level 8.9, Corrected Calcium 10.0, Total Bilirubin 0.9, Aspartate Amino Transf (AST/SGOT) 22, Alanine Aminotransferase (ALT/SGPT) < 6, Alkaline Phosphatase 138H, Total Protein 5.4L, Albumin 2.6L 09/26/19 11:01: Glucometer 401*H 09/26/19 17:04: Glucometer 280H 09/26/19 20:49: Glucometer 344H 09/27/19 05:54: Glucometer 229H 09/27/19 10:48: Glucometer 324H 09/27/19 15:40: White Blood Count 9.7, Red Blood Count 2.85L, Hemoglobin 9.0L, Hematocrit 27L, Mean Corpuscular Volume 96, Mean Corpuscular Hemoglobin 32, Mean Corpuscular Hemoglobin Concent 33, Red Cell Distribution Width 13.7, Platelet Count 227, Mean Platelet Volume 11.0H, Neutrophils (%) (Auto) 77H, Lymphocytes (%) (Auto) 13, Monocytes (%) (Auto) 9, Eosinophils (%) (Auto) 2, Basophils (%) (Auto) 0, Neutrophils # (Auto) 7.4, Lymphocytes # (Auto) 1.2, Monocytes # (Auto) 0.8, Eosinophils # (Auto) 0.2, Basophils # (Auto) 0.0, Sodium Level 131L, Potassium Level 4.8, Chloride Level 98, Carbon Dioxide Level 24, Anion Gap 9, Blood Urea Nitrogen 35H, Creatinine 1.45H, Estimat Glomerular Filtration Rate 47, BUN/Creatinine Ratio 24, Glucose Level 394H, Lactic Acid Level 1.61, Calcium Level 8.7, Corrected Calcium 9.7, Total Bilirubin 0.8, Aspartate Amino Transf (AST/SGOT) 23, Alanine Aminotransferase (ALT/SGPT) 8, Alkaline Phosphatase 163H, Total Protein 5.7L, Albumin 2.7L 09/27/19 16:12: Glucometer 387H Pending Labs Laboratory Tests 09/17/19 20:55: Glucometer 197 09/18/19 05:10: Glucometer 122 09/18/19 05:12: White Blood Count 7.2, Red Blood Count 3.25, Hemoglobin 10.1, Hematocrit 30, Mean Corpuscular Volume 92, Mean Corpuscular Hemoglobin 31, Mean Corpuscular Hemoglobin Concent 34, Red Cell Distribution Width 12.5, Platelet Count 189, Mean Platelet Volume 11.0, Neutrophils (%) (Auto) 54, Lymphocytes (%) (Auto) 31, Monocytes (%) (Auto) 10, Eosinophils (%) (Auto) 5, Basophils (%) (Auto) 0, Neutrophils # (Auto) 3.9, Lymphocytes # (Auto) 2.2, Monocytes # (Auto) 0.7, Eosinophils # (Auto) 0.3, Basophils # (Auto) 0.0, Sodium Level 137, Potassium Level 4.1, Chloride Level 104, Carbon Dioxide Level 24, Anion Gap 9, Blood Urea Nitrogen 15, Creatinine 0.97, Estimat Glomerular Filtration Rate > 60, BUN/Creatinine Ratio 15, Glucose Level 116, Calcium Level 8.9, Corrected Calcium 9.9, Total Bilirubin 0.7, Aspartate Amino Transf (AST/SGOT) 20, Alanine Aminotransferase (ALT/SGPT) 16, Alkaline Phosphatase 116, Total Protein 5.4, Albumin 2.7 09/18/19 11:07: Glucometer 188 09/18/19 15:11: Glucometer 230 09/18/19 20:18: Glucometer 240 09/19/19 05:48: Glucometer 100 09/19/19 06:34: White Blood Count 7.1, Red Blood Count 3.27, Hemoglobin 10.2, Hematocrit 31, Mean Corpuscular Volume 93, Mean Corpuscular Hemoglobin 31, Mean Corpuscular Hemoglobin Concent 33, Red Cell Distribution Width 12.7, Platelet Count 178, Mean Platelet Volume 11.2, Neutrophils (%) (Auto) 52, Lymphocytes (%) (Auto) 33, Monocytes (%) (Auto) 11, Eosinophils (%) (Auto) 4, Basophils (%) (Auto) 0, Neutrophils # (Auto) 3.7, Lymphocytes # (Auto) 2.3, Monocytes # (Auto) 0.8, Eosinophils # (Auto) 0.3, Basophils # (Auto) 0.0, Sodium Level 137, Potassium Level 3.9, Chloride Level 106, Carbon Dioxide Level 24, Anion Gap 7, Blood Urea Nitrogen 16, Creatinine 1.08, Estimat Glomerular Filtration Rate > 60, BUN/Creatinine Ratio 15, Glucose Level 95, Calcium Level 8.8, Corrected Calcium 9.8, Total Bilirubin 0.6, Aspartate Amino Transf (AST/SGOT) 17, Alanine Aminotransferase (ALT/SGPT) 16, Alkaline Phosphatase 118, Total Protein 5.3, Albumin 2.7 09/19/19 11:06: Glucometer 215 09/19/19 15:40: Glucometer 216 09/19/19 20:13: Glucometer 304 09/20/19 05:44: Glucometer 150 09/20/19 11:14: Glucometer 229 09/20/19 11:42: Glucometer 215 09/20/19 15:26: Glucometer 279 09/20/19 20:18: Glucometer 239 09/21/19 05:20: White Blood Count 7.9, Red Blood Count 3.13, Hemoglobin 9.7, Hematocrit 29, Mean Corpuscular Volume 93, Mean Corpuscular Hemoglobin 31, Mean Corpuscular Hemoglobin Concent 33, Red Cell Distribution Width 12.8, Platelet Count 182, Mean Platelet Volume 11.2, Sodium Level 137, Potassium Level 4.1, Chloride Level 105, Carbon Dioxide Level 24, Anion Gap 8, Blood Urea Nitrogen 19, Creatinine 1.02, Estimat Glomerular Filtration Rate > 60, BUN/Creatinine Ratio 19, Glucose Level 99, Calcium Level 8.9, Corrected Calcium 10.0, Magnesium Level 2.0, Total Bilirubin 0.6, Aspartate Amino Transf (AST/SGOT) 18, Alanine Aminotransferase (ALT/SGPT) < 6, Alkaline Phosphatase 132, Total Protein 5.3, Albumin 2.6 09/21/19 05:22: Glucometer 110 09/21/19 10:48: Glucometer 170 09/21/19 15:34: Glucometer 258 09/21/19 20:39: Glucometer 299 09/22/19 05:33: Glucometer 148 09/22/19 10:48: Glucometer 191 09/22/19 16:11: Glucometer 367 09/22/19 20:55: Glucometer 364 09/23/19 05:25: White Blood Count 9.0, Red Blood Count 3.44, Hemoglobin 10.6, Hematocrit 32, Mean Corpuscular Volume 92, Mean Corpuscular Hemoglobin 31, Mean Corpuscular Hemoglobin Concent 34, Red Cell Distribution Width 13.1, Platelet Count 188, Mean Platelet Volume 11.1, Sodium Level 136, Potassium Level 4.2, Chloride Level 105, Carbon Dioxide Level 21, Anion Gap 10, Blood Urea Nitrogen 21, Creatinine 0.88, Estimat Glomerular Filtration Rate > 60, BUN/Creatinine Ratio 24, Glucose Level 128, Calcium Level 9.2 09/23/19 05:54: Glucometer 151 09/23/19 11:00: Glucometer 391 09/23/19 15:30: Glucometer 363 09/23/19 20:48: Glucometer 395 09/24/19 06:12: Glucometer 160 09/24/19 12:10: Glucometer 262 09/24/19 15:56: Glucometer 294 09/24/19 20:33: Glucometer 325 09/25/19 05:50: Glucometer 191 09/25/19 10:51: Glucometer 326 09/25/19 16:00: Glucometer 363 09/25/19 18:31: Glucometer 312 09/25/19 20:55: Glucometer 277 09/26/19 05:50: Glucometer 172 09/26/19 06:50: White Blood Count 8.6, Red Blood Count 2.85, Hemoglobin 9.0, Hematocrit 27, Mean Corpuscular Volume 95, Mean Corpuscular Hemoglobin 32, Mean Corpuscular Hemoglobin Concent 33, Red Cell Distribution Width 13.4, Platelet Count 193, Mean Platelet Volume 10.9, Neutrophils (%) (Auto) 62, Lymphocytes (%) (Auto) 25, Monocytes (%) (Auto) 10, Eosinophils (%) (Auto) 4, Basophils (%) (Auto) 0, Neutrophils # (Auto) 5.4, Lymphocytes # (Auto) 2.1, Monocytes # (Auto) 0.8, Eosinophils # (Auto) 0.3, Basophils # (Auto) 0.0, Sodium Level 135, Potassium Level 4.3, Chloride Level 102, Carbon Dioxide Level 27, Anion Gap 6, Blood Urea Nitrogen 28, Creatinine 1.18, Estimat Glomerular Filtration Rate 60, BUN/Creatinine Ratio 24, Glucose Level 156, Calcium Level 8.9, Corrected Calcium 10.0, Total Bilirubin 0.9, Aspartate Amino Transf (AST/SGOT) 22, Alanine Aminotransferase (ALT/SGPT) < 6, Alkaline Phosphatase 138, Total Protein 5.4, Albumin 2.6 09/26/19 11:01: Glucometer 401 09/26/19 17:04: Glucometer 280 09/26/19 20:49: Glucometer 344 09/27/19 05:54: Glucometer 229 09/27/19 10:48: Glucometer 324 09/27/19 15:40: White Blood Count 9.7, Red Blood Count 2.85, Hemoglobin 9.0, Hematocrit 27, Mean Corpuscular Volume 96, Mean Corpuscular Hemoglobin 32, Mean Corpuscular Hemog lobin Concent 33, Red Cell Distribution Width 13.7, Platelet Count 227, Mean Platelet Volume 11.0, Neutrophils (%) (Auto) 77, Lymphocytes (%) (Auto) 13, Monocytes (%) (Auto) 9, Eosinophils (%) (Auto) 2, Basophils (%) (Auto) 0, Neutrophils # (Auto) 7.4, Lymphocytes # (Auto) 1.2, Monocytes # (Auto) 0.8, Eosinophils # (Auto) 0.2, Basophils # (Auto) 0.0, Sodium Level 131, Potassium Level 4.8, Chloride Level 98, Carbon Dioxide Level 24, Anion Gap 9, Blood Urea Nitrogen 35, Creatinine 1.45, Estimat Glomerular Filtration Rate 47, BUN/Creatinine Ratio 24, Glucose Level 394, Lactic Acid Level 1.61, Calcium Level 8.7, Corrected Calcium 9.7, Total Bilirubin 0.8, Aspartate Amino Transf (AST/SGOT) 23, Alanine Aminotransferase (ALT/SGPT) 8, Alkaline Phosphatase 163, Total Protein 5.7, Albumin 2.7 09/27/19 16:12: Glucometer 387 Discharge Home Medications: Active Scripts Active Reported Levemir Flextouch (Insulin Detemir) 100 Unit/1 Ml Insuln.pen 40 Unit SQ HS Xarelto (Rivaroxaban) 20 Mg Tablet 20 Mg PO HS Metoprolol Succinate 25 Mg Tab.er.24h 25 Mg PO HS Aspirin EC (Aspirin) 81 Mg Tablet.dr 81 Mg PO HS Plavix (Clopidogrel Bisulfate) 75 Mg Tablet 75 Mg PO DAILY Pantoprazole Sodium 40 Mg Tablet.dr 40 Mg PO DAILY Benicar (Olmesartan Medoxomil) 40 Mg Tablet 40 Mg PO DAILY Dulcolax (Bisacodyl) 5 Mg Tablet.dr 10 Mg PO HS PRN Acetaminophen 500 Mg Tablet 1,000 Mg PO Q4H PRN Carbidopa-Levo ER 50-200 Tab (Carbidopa/Levodopa) 1 Each Tablet.er 1 Tab PO 1300,2100 TAKES 2 TABS IN THE MORNING, 1 TAB AT 1300 AND 1 TAB AT BEDTIME Carbidopa-Levo ER 50-200 Tab (Carbidopa/Levodopa) 1 Each Tablet.er 2 Tab PO 0800 TAKES 2 TABS IN THE MORNING, 1 TAB AT 1300 AND 1 TAB AT BEDTIME Multivitamins (Multivitamin) 1 Each Tablet 1 Tab PO DAILY Flomax (Tamsulosin HCl) 0.4 Mg Cap 0.8 Mg PO 1730 TAKES 2 (0.4MG) CAPSULES Fish Oil 1,000 mg Softgel (Bryan-3/Dha/Epa/Fish Oil) 1 Each Capsule 1,000 Mg PO BID Atorvastatin Calcium 40 Mg Tablet 40 Mg PO HS Gabapentin 300 Mg Capsule 300 Mg PO BID Glipizide 10 Mg Tablet 5 Mg PO DAILY TAKES 1/2 (10MG) TABLET Amiodarone HCl 200 Mg Tablet 200 Mg PO DAILY Amlodipine Besylate 10 Mg Tablet 5 Mg PO DAILY PRN TAKES 1/2 (10MG) TABLET Novolog Flexpen (Insulin Aspart) 300 Units/3 Ml Solution SQ TIDAC Instructions to patient/family Please see electronic discharge instructions given to patient. Diagnosis/Problems Diagnosis/Problems (1) Parkinsons disease (2) Dementia (3) Orthostasis (4) Labile hypertension (5) Falls frequently (6) Urinary retention (7) Constipation (8) DM (9) Obstructive sleep apnea of adult Status: Acute (10) PAD (peripheral artery disease) Status: Acute Clinical Quality Measures DVT/VTE Risk/Contraindication: Risk Factor Score Per Nursin RFS Level Per Nursing on Admit: 4+=Very High JULIA GILLESPIE DO Sep 28, 2019 15:17
--- NOTE | 2019-09-29 09:48 | Therapy Team Discharge Summary ---
Therapy Discharge Summary Discharge Recommendations Date of Discharge Sep 27, 2019 at 16:02 Physical Therapy This patient was admitted to ARU post acute hospital stay due to decreased alertness and weakness at home. He transferred to ARU for continued medical management and functional strengthening. Prior to his acute admit, he was home with his , staying during the day alone while she worked. He was mod indep with mobility in his home. Upon admission to ARU, he required CGA with gait and transfers. Treatment consisted of functional strength, balance, safety all to progress and improve gait and transfers. He had issues with low BP that limited progress and participation throughout the course of treatment. At last visits, he was requiring increased assist with all mobility due to low BP and complaints of pain, therefor goals not fully met or assessed. He was cooperative and participated as able but at times was not able to effectively participate. He transferred from this unit to [facility], thus goals remain unmet at this time. DC from ARU. Occupational Therapy Decreased Activ Tolerance, Decreased Safety Aware, Decreased UE Strength, Dependent Transfers, Impaired Cognition, Impaired Funct Balance, Impaired I ADL's, Impaired Self-Care Skills PT Skilled Nursing Goals Towel Folder Goals PT Skilled Nursing Goals Time Frame: Oct 08, 2019 Roll Left to Right (QC): 6 Sit to Lying (QC): 6 Lying-Sitting on Side/Bed(QC): 6 Sit to Stand (QC): 6 Chair/Uge-kq-Awsie Xfer(QC): 6 Car Transfer (QC): 6 Does the Patient Walk: Yes Walk 10 feet (QC): 6 Walk 10ft-Uneven Surface(QC): 6 Walk 50ft with 2 Turns (QC): 6 Walk 150 ft (QC): 6 Does the Pt use WC or Scooter?: No 1 Step (curb) (QC): 4 4 Steps (QC): 4 12 Steps (QC): 88 Picking up an Object (QC): 6 grossly unmet due to transfer from ARU to [facility]. OT Skilled Nursing Goals Skilled Nursing Goals Time Frame: Oct 04, 2019 Eating (QC): 5 (met) Oral Hygiene (QC): 5 Shower/Bathe Self (QC): 5 Upper Body Dressing (QC): 5 (met) Lower Body Dressing (QC): 5 On/Off Footwear (QC): 5 Toileting Hygiene (QC): 5 Toilet/Commode Transfer (QC): 6 Additional Goals: 1-Demonstrate ADL Tasks, 2-Verbalize Understanding, 3- ImproveStrength/Navya 1=Demonstrate adherence to instructed precautions during ADL tasks. 2=Patient will verbalize/demonstrate understanding of assistive devices/modifications for ADL. 3=Patient will improve strength/tolerance for activity to enable patient to perform ADL's. Speech Towel Folder Goals Towel Folder Goals The patient will improve cognitive-communication necessary for safety and daily living tasks with minimal assist. SRINIVAS ANDERSON PT Sep 29, 2019 09:48
== END 2019-09-27 16:02 | disposition short-term general hospital (02) | DRG 56 ==
LOC: UNDOLOA 09-27 16:01
PROVIDERS: ADMIT Internal Medicine; ATTEND Internal Medicine
DX: G90.3 Multi-system degeneration of the autonomic nervous system (principal); G31.83 Neurocognitive disorder with Lewy bodies; F02.80 Dementia in other diseases classified elsewhere, unspecified severity, without behavioral disturbance, psychotic disturbance, mood disturbance, and anxiety; R29.6 Repeated falls; G91.9 Hydrocephalus, unspecified; I97.89 Other postprocedural complications and disorders of the circulatory system, not elsewhere classified; I70.203 Unspecified atherosclerosis of native arteries of extremities, bilateral legs; J18.9 Pneumonia, unspecified organism; Z66 Do not resuscitate; I69.351 Hemiplegia and hemiparesis following cerebral infarction affecting right dominant side; I47.2 Ventricular tachycardia; I50.30 Unspecified diastolic (congestive) heart failure; E11.42 Type 2 diabetes mellitus with diabetic polyneuropathy; I72.4 Aneurysm of artery of lower extremity; E11.65 Type 2 diabetes mellitus with hyperglycemia; L89.109 Pressure ulcer of unspecified part of back, unspecified stage; L89.159 Pressure ulcer of sacral region, unspecified stage; L89.519 Pressure ulcer of right ankle, unspecified stage; I25.10 Atherosclerotic heart disease of native coronary artery without angina pectoris; N40.1 Benign prostatic hyperplasia with lower urinary tract symptoms; R33.9 Retention of urine, unspecified; N47.1 Phimosis; I48.0 Paroxysmal atrial fibrillation; I11.0 Hypertensive heart disease with heart failure; I34.0 Nonrheumatic mitral (valve) insufficiency; K59.09 Other constipation; G47.33 Obstructive sleep apnea (adult) (pediatric); I69.318 Other symptoms and signs involving cognitive functions following cerebral infarction; R41.0 Disorientation, unspecified; I49.5 Sick sinus syndrome
CPT/HCPCS: 36415; 71045; 72100; 80048; 80053; 82962; 83605; 83735; 85025; 85027; 87040; 93926

== ENCOUNTER 2019-09-27 16:02 | Inpatient (IN) | payer MEDICARE ==
[~2019-09-27 16:02] MED LIST changes: -ACETAMINOPHEN 500 MG TAB (TYLENOL) PO PRN; -ALPRAZolam 0.25 MG (XANAX) TAB PO PRN; -BISACODYL 10 MG SUPP (DULCOLAX) PR PRN; -CALCIUM CARBONATE 500 MG (TUMS) TAB.CHEW PO PRN; -DOCUSATE SODIUM 100 MG (COLACE) CAP PO PRN; -ENOXAPARIN 40 MG/0.4 ML (LOVENOX) SYR SC SCH; -FLEET ENEMA ADULT 1 EA BTL PR PRN; -HYDROcodone/APAP 5 MG/325 MG (LORTAB) TAB PO PRN; -LACTULOSE SYRUP 10GM/15ML (ENULOSE) 30ML UDC PO PRN; -LOPERAMIDE 2 MG (IMODIUM) TABLET PO PRN; -ONDANSETRON 4 MG (ZOFRAN) ORAL DISSOLVE TAB PO PRN; -diphenhydrAMINE 25 MG TAB (BENADRYL) PO PRN; -guaiFENesin/CODEINE (ROBITUSSIN AC) 10ML UDC PO PRN
[2019-09-27] MEDS ORDERED: NS IV 1000 ML 1,000 ML IV SCH (16:26)
[2019-09-27 16:43] VITALS: BP 148/70
[2019-09-27] MEDS ORDERED: PIPERACILLIN/TAZO 4.5 GM/NS 100 ML IV NR ×2 (16:45)
[2019-09-27] MEDS ORDERED: CATHETER FLUSH 10 ML SYR IV PRN ×2 (16:45→20:00)
--- NOTE | 2019-09-27 16:52 | NUR ---
RECEIVED HAND OFF FROM ARIELLE IN ARU. SHE HUNG STARTING DOSE OF ZOSYN BEFORE ATIENT WAS BROUGHT TO FLOOR.
--- NOTE | 2019-09-27 16:53 | NUR ---
WEI PARADA admitted to room 410-1, with an admitting diagnosis of PNEUMONIA, on 09/27/19 from ARU, accompanied by PERSONNEL.WEI PARADA introduced to surroundings, call light, bed controls, phone, TV, temperature control, lights, meal times, smoking policy, visitor policy, side rail policy, bathrooms and showers. Patient Rights given to patient in the handbook. WEI PARADA verbalizes understanding that [facility] is not responsible for the loss or damage to any personal effects or valuables that are kept in the patients posession during their hospitalization. The following Patient Care Plans were discussed with thePATIENT: Discharge Planning, ADEQUATE OXEGENATION,FALL PRECAUTION, and PAIN. WEI PARADA verbalizes understanding of Interdisciplinary Patient Education.
[2019-09-27] MEDS: NS IV 1000 ML 1,000 ML IV SCH (18:56)
--- NOTE | 2019-09-27 18:56 | NUR ---
ORIGINAL BAG HAD BEEN HUNG AT 70MLS AN HR. RATE WAS CHANGED TO 50. NO NEW BAG WAS NECESSARY
[2019-09-27] MEDS ORDERED: guaiFENesin/CODEINE (ROBITUSSIN AC) 10ML UDC PO PRN (19:00)
[2019-09-27] MEDS ORDERED: LACTULOSE SYRUP 10GM/15ML (ENULOSE) 30ML UDC PO PRN (19:00)
[2019-09-27] MEDS ORDERED: BISACODYL 10 MG SUPP (DULCOLAX) PR PRN (19:00)
[2019-09-27] MEDS ORDERED: LOPERAMIDE 2 MG (IMODIUM) TABLET PO PRN (19:00)
[2019-09-27] MEDS ORDERED: ACETAMINOPHEN 500 MG TAB (TYLENOL) PO PRN (19:00)
[2019-09-27] MEDS ORDERED: ONDANSETRON 4 MG (ZOFRAN) ORAL DISSOLVE TAB PO PRN (19:00)
[2019-09-27] MEDS ORDERED: CALCIUM CARBONATE 500 MG (TUMS) TAB.CHEW PO PRN (19:00)
[2019-09-27] MEDS ORDERED: diphenhydrAMINE 25 MG TAB (BENADRYL) PO PRN (19:00)
[2019-09-27 20:00] VITALS: BP 157/88
[2019-09-27] MEDS: inSUlin ASPART (NovoLOG) 1 UNIT/0.01 ML (CHARGE PER UNIT) SC SCH (20:00)
--- NOTE | 2019-09-27 20:02 | NUR ---
Blood glucose = 416. Called Dr. Damon and received order for 8 units of Novolog now and 10 units of Levemir in 1 hour as scheduled.
[2019-09-27] MEDS ORDERED: SENNA W/DOCUSATE (SENOKOT S) TABLET PO SCH (21:00)
[2019-09-27] MEDS ORDERED: POLYETHYLENE GLYCOL 17 GM (MIRALAX) PACK PO SCH (21:00)
[2019-09-27] MEDS ORDERED: DOCUSATE SODIUM 100 MG (COLACE) CAP PO SCH (21:00)
[2019-09-27] MEDS: ASPIRIN E.C. 81 MG (ECOTRIN) TAB PO SCH (21:16)
[2019-09-27] MEDS: SINEMET CR 50/200 (CARBIDOPA/LEVODOPA SA) TAB PO SCH (21:16)
[2019-09-27] MEDS: BETHANECHOL 25 MG (URECHOLINE) TAB PO SCH (21:16)
[2019-09-27] MEDS: RT-ALBUTEROL SULF 2.5 MG/3 ML PRE-MIX VIAL INH SCH (21:43)
[2019-09-27] MEDS: CATHETER FLUSH 10 ML SYR IV SCH (22:00)
[2019-09-27] MEDS: PIPERACILLIN/TAZOBACTAM (BULK) 4.5 GM in NS (IVPB) 100 ML IV SCH (23:30)
[2019-09-28] VITALS: BP 178/76
[2019-09-28 06:09] LABS: BASOPHILS % (AUTO) 0 % (0-10); EOSINOPHILS # (AUTO) 0.3 10^3/uL (0.0-0.3); EOSINOPHILS % (AUTO) 3 % (0-10); HEMATOCRIT 27 % (40-54); HEMOGLOBIN 9.1 G/DL (13.3-17.7); LYMPHOCYTES # (AUTO) 1.7 X 10^3 (1.0-4.0); LYMPHOCYTES % (AUTO) 18 % (12-44); MEAN CORPUSCULAR HEMOGLOBIN 32 PG (25-34); MEAN CORPUSCULAR HGB CONC 33 G/DL (32-36); MEAN CORPUSCULAR VOLUME 95 FL (80-99); MEAN PLATELET VOLUME 10.8 FL (7.4-10.4); MONOCYTES # (AUTO) 0.9 X 10^3 (0.0-1.0); MONOCYTES % (AUTO) 10 % (0-12); NEUTROPHILS # (AUTO) 6.7 X 10^3 (1.8-7.8); NEUTROPHILS % (AUTO) 69 % (42-75); PLATELET COUNT 229 10^3/uL (130-400); RED CELL DISTRIBUTION WIDTH 13.5 % (10.0-14.5); WHITE BLOOD COUNT 9.6 10^3/uL (4.3-11.0)
[2019-09-28 06:40] LABS: ALANINE AMINOTRANSFERASE 8 U/L (0-55); ALBUMIN 2.7 GM/DL (3.2-4.5); ALKALINE PHOSPHATASE 153 U/L (40-136); BILIRUBIN,TOTAL 0.8 MG/DL (0.1-1.0); BUN/CREATININE RATIO 26; CALCIUM 8.6 MG/DL (8.5-10.1); CARBON DIOXIDE 24 MMOL/L (21-32); CHLORIDE 103 MMOL/L (98-107); CREATININE SERUM 1.05 MG/DL (0.60-1.30); GFR ESTIMATED > 60; GLUCOSE 210 MG/DL (70-105); POTASSIUM 4.3 MMOL/L (3.6-5.0); SODIUM 136 MMOL/L (135-145); TOTAL PROTEIN 5.6 GM/DL (6.4-8.2)
--- NOTE | 2019-09-28 07:18 | Pulmonary Consultation ---
History of Present Illness History of Present Illness Date Seen by Provider: Sep 28, 2019 Time Seen by Provider: 07:28 Date of Admission Allergies and Home Medications Allergies Coded Allergies: No Known Drug Allergies (Unverified , 09/06/18) Home Medications Acetaminophen 500 Mg Tablet, 1,000 MG PO Q4H PRN for PAIN-MILD, (Reported) Amiodarone HCl 200 Mg Tablet, 200 MG PO DAILY, (Reported) Amlodipine Besylate 10 Mg Tablet, 5 MG PO DAILY PRN for BLOOD PRESSURE >150, (Reported) TAKES 1/2 (10MG) TABLET Aspirin 81 Mg Tablet.dr, 81 MG PO HS, (Reported) Atorvastatin Calcium 40 Mg Tablet, 40 MG PO HS, (Reported) Bisacodyl 5 Mg Tablet.dr, 10 MG PO HS PRN for CONSTIPATION-4TH LINE, (Reported) Carbidopa/Levodopa 1 Each Tablet.er, 2 TAB PO 0800, (Reported) TAKES 2 TABS IN THE MORNING, 1 TAB AT 1300 AND 1 TAB AT BEDTIME Carbidopa/Levodopa 1 Each Tablet.er, 1 TAB PO 1300,2100, (Reported) TAKES 2 TABS IN THE MORNING, 1 TAB AT 1300 AND 1 TAB AT BEDTIME Clopidogrel Bisulfate 75 Mg Tablet, 75 MG PO DAILY, (Reported) Gabapentin 300 Mg Capsule, 300 MG PO BID, (Reported) Glipizide 10 Mg Tablet, 5 MG PO DAILY, (Reported) TAKES 1/2 (10MG) TABLET Insulin Aspart 300 Units/3 Ml Solution, SQ TIDAC, (Reported) Insulin Detemir 100 Unit/1 Ml Insuln.pen, 40 UNIT SQ HS, (Reported) Metoprolol Succinate 25 Mg Tab.er.24h, 25 MG PO HS, (Reported) Multivitamin 1 Each Tablet, 1 TAB PO DAILY, (Reported) Olmesartan Medoxomil 40 Mg Tablet, 40 MG PO DAILY, (Reported) [place]-3/Dha/Epa/Fish Oil 1 Each Capsule, 1,000 MG PO BID, (Reported) Pantoprazole Sodium 40 Mg Tablet.dr, 40 MG PO DAILY, (Reported) Rivaroxaban 20 Mg Tablet, 20 MG PO HS, (Reported) Tamsulosin HCl 0.4 Mg Cap, 0.8 MG PO 1730, (Reported) TAKES 2 (0.4MG) CAPSULES Past Udlzhrv-Yncfjs-Konixf Hx Patient Social History Alcohol Use: Denies Use Recreational Drug Use: No Type Used: Cigarettes 2nd Hand Smoke Exposure: No Recent Foreign Travel: No Contact w/Someone Who Travel: No Recent Infectious Disease Expo: No Recent Hopitalizations: Yes Immunizations Up To Date PED Vaccines UTD: Yes Date of Pneumonia Vaccine: Aug 17, 2016 Date of Influenza Vaccine: Aug 03, 2019 Seasonal Allergies Seasonal Allergies: No Past Medical History Surgeries: Yes (PACEMAKER) Coronary Stent Respiratory: No Cardiac: Yes (X9 STENTS/PACEMAKER) Atrial Fibrillation, High Cholesterol, Hypertension, Peripheral Vascular Neurological: Yes Dementia, Parkinson's Disease, Stroke Genitourinary: Yes ([employer]) Benign Prostatic Hyperpl, Prostate Problems Gastrointestinal: No Musculoskeletal: No Endocrine: Yes Diabetes, Insulin dep HEENT: No Cancer: No Psychosocial: No Integumentary: Yes (dryness) Psoriasis Blood Disorders: No Family Medical History Alcoholism G8 BROTHER ( at age 46) FH: heart disease 19 FATHER Hypertension 19 MOTHER Myocardial infarction 19 FATHER ( at age 60) Sepsis Event Evaluation Height, Weight, BMI Height: 6'0.00" Weight: 177lbs. 9.6oz. 80.012801ge; 22.53 BMI Method:Stated Exam Exam Vital Signs Date Time Temp Pulse Resp B/P (MAP) Pulse Ox O2 Delivery O2 Flow Rate FiO2 09/28/19 01:00 80 09/28/19 00:00 36.9 83 20 178/76 (110) 94 Room Air 09/27/19 21:44 94 Room Air 09/27/19 20:00 36.4 64 16 157/88 (111) 95 Room Air 09/27/19 19:00 62 09/27/19 18:19 95 Room Air 09/27/19 16:56 62 09/27/19 16:43 36.4 60 16 148/70 (96) 95 Room Air I & O 09/28/19 07:00 Intake Total 300 ml Balance 300 ml Height & Weight Height: 6'0.00" Weight: 177lbs. 9.6oz. 80.460606ni; 22.53 BMI Method:Stated Results Lab Laboratory Tests 09/28/19 05:34 09/28/19 05:39 Assessment/Plan Assessment/Plan RLL infiltrate r/o PNA -- no leukocytosis or fever -Continue Zosyn -Cultures pending -Check BNP -Check echo Anemia -Monitor ELIEL YANES DO Sep 28, 2019 07:18
[2019-09-28 08:00] VITALS: BP 119/62
--- NOTE | 2019-09-28 08:03 | Diagnostic Imaging Report ---
INDICATION: Pneumonia. COMPARISON: 09/27/2019. FINDINGS: Right lower lobe airspace consolidation shows progressive density from prior. Right pleural effusion has increased. We note right lateral lower rib fractures which appeared unhealed and are presumed recent correlate clinically. No pneumothorax. IMPRESSION: Worsened right basilar airspace disease and pleural fluid. Multiple right rib fractures noted. No pneumothorax. Dictated by: Dictated on workstation # [id number]
--- NOTE | 2019-09-28 08:19 | History & Physical ---
History of Present Illness History of Present Illness Reason for visit/HPI Patient transferred from acute rehabilitation. Patient has pneumonia. Patient diabetic. Patient has hypotension decreased medicines. Patient has dementia. Date of Admission Sep 27, 2019 at 16:02 Time Seen by a Provider: 08:15 I consulted on this patient on 09/28/19 08:14 Attending Physician Mando Kent DO Admitting Physician Mando Kent DO Consult Allergies and Home Medications Allergies Coded Allergies: No Known Drug Allergies (Unverified , 09/06/18) Home Medications Acetaminophen 500 Mg Tablet, 1,000 MG PO Q4H PRN for PAIN-MILD, (Reported) Amiodarone HCl 200 Mg Tablet, 200 MG PO DAILY, (Reported) Amlodipine Besylate 10 Mg Tablet, 5 MG PO DAILY PRN for BLOOD PRESSURE >150, (Reported) TAKES 1/2 (10MG) TABLET Aspirin 81 Mg Tablet.dr, 81 MG PO HS, (Reported) Atorvastatin Calcium 40 Mg Tablet, 40 MG PO HS, (Reported) Bisacodyl 5 Mg Tablet.dr, 10 MG PO HS PRN for CONSTIPATION-4TH LINE, (Reported) Carbidopa/Levodopa 1 Each Tablet.er, 2 TAB PO 0800, (Reported) TAKES 2 TABS IN THE MORNING, 1 TAB AT 1300 AND 1 TAB AT BEDTIME Carbidopa/Levodopa 1 Each Tablet.er, 1 TAB PO 1300,2100, (Reported) TAKES 2 TABS IN THE MORNING, 1 TAB AT 1300 AND 1 TAB AT BEDTIME Clopidogrel Bisulfate 75 Mg Tablet, 75 MG PO DAILY, (Reported) Gabapentin 300 Mg Capsule, 300 MG PO BID, (Reported) Glipizide 10 Mg Tablet, 5 MG PO DAILY, (Reported) TAKES 1/2 (10MG) TABLET Insulin Aspart 300 Units/3 Ml Solution, SQ TIDAC, (Reported) Insulin Detemir 100 Unit/1 Ml Insuln.pen, 40 UNIT SQ HS, (Reported) Metoprolol Succinate 25 Mg Tab.er.24h, 25 MG PO HS, (Reported) Multivitamin 1 Each Tablet, 1 TAB PO DAILY, (Reported) Olmesartan Medoxomil 40 Mg Tablet, 40 MG PO DAILY, (Reported) [place]-3/Dha/Epa/Fish Oil 1 Each Capsule, 1,000 MG PO BID, (Reported) Pantoprazole Sodium 40 Mg Tablet.dr, 40 MG PO DAILY, (Reported) Rivaroxaban 20 Mg Tablet, 20 MG PO HS, (Reported) Tamsulosin HCl 0.4 Mg Cap, 0.8 MG PO 1730, (Reported) TAKES 2 (0.4MG) CAPSULES Patient Home Medication List Home Medication List Reviewed: Yes Past Kwdylje-Oucxpe-Uripjs Hx Past Med/Social Hx: Reviewed Nursing Past Med/Soc Hx Patient Social History Marrital Status: Employed/Student: retired Alcohol Use: Denies Use Recreational Drug Use: No Type Used: Cigarettes 2nd Hand Smoke Exposure: No Physical Abuse Screen: No Sexual Abuse: No Recent Foreign Travel: No Contact w/other who traveled: No Recent Hopitalizations: Yes Recent Infectious Disease Expo: No Immunizations Up To Date Pediatric: Yes Date of Pneumonia Vaccine: Aug 17, 2016 Date of Influenza Vaccine: Aug 03, 2019 Seasonal Allergies Seasonal Allergies: No Past Medical History Surgeries: Coronary Stent Respiratory: Pneumonia Cardiac: Atrial Fibrillation, High Cholesterol, Hypertension, Peripheral Vascular Neurological: Dementia, Parkinson's Disease, Stroke Genitourinary: Benign Prostatic Hyperpl, Prostate Problems Endocrine: Diabetes, Insulin dep Skin/Integumentary: Psoriasis History of Blood Disorders: No Family History Alcoholism G8 BROTHER ( at age 46) FH: heart disease 19 FATHER Hypertension 19 MOTHER Myocardial infarction 19 FATHER ( at age 60) Review of Systems Constitutional: malaise, weakness EENTM: no symptoms reported Respiratory: cough, other (ingestion) Cardiovascular: no symptoms reported Gastrointestinal: no symptoms reported Genitourinary: no symptoms reported Physical Exam Vital Signs Vital Signs - First Documented 09/27/19 16:43 Temp 36.4 Pulse 60 Resp 16 B/P (MAP) 148/70 (96) Pulse Ox 95 O2 Delivery Room Air Capillary Refill : Less Than 3 Seconds Height, Weight, BMI Height: 6'0.00" Weight: 177lbs. 9.6oz. 80.127637dm; 22.53 BMI Method:Stated General Appearance: No Apparent Distress, WD/WN Eyes: Bilateral Eye Normal Inspection HEENT: Normal ENT Inspection Neck: Full Range of Motion Respiratory: No Accessory Muscle Use, No Respiratory Distress Cardiovascular: Regular Rate, Rhythm, No Murmur Gastrointestinal: Non Tender, Soft Assessment/Plan Assessment and Plan Pneumonia. Peripheral artery disease. Diabetes. Dementia. Orthostatic hypotension. Weakness Admission Diagnosis Admission Status: Inpatient Order (span 2 midnights) Reason for Inpatient Admission: Pneumonia. Orthostatic hypotension. Hypertension. Diabetes. Dementia Clinical Quality Measures DVT/VTE Risk/Contraindication: Risk Factor Score Per Nursin RFS Level Per Nursing on Admit: 4+=Very High MANDO KENT DO Sep 28, 2019 08:19
[2019-09-28] MEDS: SINEMET CR 50/200 (CARBIDOPA/LEVODOPA SA) TAB PO SCH ×3 (09:13→20:44)
[2019-09-28] MEDS: CLOPIDOGREL 75 MG (PLAVIX) TABLET PO SCH (09:13)
[2019-09-28] MEDS: PANTOPRAZOLE 40 MG (PROTONIX) TAB PO SCH (09:13)
--- NOTE | 2019-09-28 09:36 | Physical Therapy Evaluation ---
PT Evaluation-General Medical Diagnosis Admission Date Sep 27, 2019 at 16:02 Medical Diagnosis: pneumonia Onset Date: Sep 27, 2019 Therapy Diagnosis Therapy Diagnosis: abnormal gait Height/Weight Height (Feet): 6 Height (Inches): 0.00 Weight (Pounds): 177 Weight (Ounces): 9.6 Precautions Precautions/Isolations: Fall Prevention, Standard Precautions Weight Bear Status Right Lower Extremity: Right Weight Bearing/Tolerated Left Lower Extremity: Left Weight Bearing/Tolerated Referral Physician: Boris Reason for Referral: Evaluation/Treatment Medical History Pertinent Medical History: Atrial Fib, CAD, CVA, DM, Dementia, Parkinson's, PVD Current History Pt has had a complex stay, which started on 09/14/19 with admission to acute hospital followed by transfer to ARU; he has subsequently returned to acute due to worsening pneumonia. In addition, he has been experiencing issues with low blood pressure. Social History Home: Single Level Current Living Status: Spouse Entry Into Home: Stairs With Railing Prior Prior Level of Function SCALE: Activities may be completed with or without assistive devices. 0-Vipwglieuv-kivyyai completes the activity by him/herself with no assistance from a helper. 5-Set-up or Clean-up Assistance-helper sets up or cleans up; patient completes activity. [place] assists only prior to or following the activity. 4-Supervision or Touching Assistance-helper provides verbal cues and/or touching/steadying and/or contact guard assistance as patient completes acti vity. Assistance may be provided throughout the activity or intermittently. 3-Partial/Moderate Assistance-helper does LESS THAN HALF the effort. [place] lifts, holds or supports trunk or limbs, but provides less than half the effort. 2-Substantial/Maximal Assistance-helper does MORE THAN HALF the effort. [place] lifts or holds trunk or limbs and provides more than half the effort. 2-Xzxkoqyax-kjtirc does ALL the effort. Patient does none of the effort to complete the activity. Or, the assistance of 2 or more helpers is required for the patient to complete the activity. If activity was not attempted, code reason: 7-Patient Refused. 9-Not Applicable-not attempted and the patient did not perform the activity before the current illness, exacerbation or injury. 10-Not Attempted due to Environmental Limitations-(lack of equipment, weather restraints, etc.). 88-Not Attempted due to Medical Conditions or Safety Concerns. Bed Mobility: 6 Transfers (B,C,W/C): 6 Gait: 6 Indoor Mobility (Ambulation): Independent Stairs: Needed Some Help Pt stays home alone during the day while his works. PT Evaluation-Current Subjective Pt agreeable to PT. Denies pain. Reports he rested well last night. Pain Numeric Pain Scale: 0-No Pain Location: No Pain Reported Objective Patient Orientation: Person, Confused ROM/Strength ROM Lower Extremities WFL with AAROM: tends to hold his knees in a flexed position. Strength Lower Extremities B LE strngth is grossly 4-/5 . Integumentary/Posture Integumentary refer to nursing notes for full assessment. Bowel Incontinence: Yes Bladder Incontinence: Yes Posture rounded shoulders and forward head; lacks full hip extension in standing. Neuromuscular (Tone, Coordination, Reflexes) no noted tone deficits; coordination impaired due to PD; reflexes delayed but intact Sensory Vision: Functional Hand Dominance: Right Sensation Right Lower Extremit: Intact Sensation Left Lower Extremity: Intact Transfers Roll Left to Right (QC): 2 (max verbal and tactile cues ) Sit to Lying (QC): 0 (NT this visit) Lying to Sitting/Side of Bed(Q: 2 (max assist with max verbal and tactile cues) Sit to Stand (QC): 2 (max assist to come to a stand with cues to sequence. ) Chair/Lpb-dp-Aezfn Xfer(QC): 3 Car Transfer (QC): 88 Pt requires heavy cues to stay on task and does not initiate task; requires cues to complete. Gait Does the Patient Walk?: Yes Mode of Locomotion: Walk Anticipated Mode of Locomotion: Walk Walk 10 feet (QC): 88 Walk 50 ft with 2 Turns(QC): 88 Walk 150 ft (QC): 88 Walking 10ft/uneven surface-QC: 88 Gait Assistive Device: FWW Comments/Gait Description Pt took 4-5 steps to walk to the chair to turn and sit with FWW with min assist and cues to sequence; forward flexed and without full hip/knee extension. Wheelchair Training Does the Pt Use a Wheelchair?: No Wheel 50 ft with 2 turns (QC): 9 Wheel 150 ft (QC): 9 Type of Wheelchair: Manual Stairs 1 Step (curb) (QC): 88 4 Steps (QC): 88 12 Steps (QC): 88 Balance Sitting Static: Fair Sitting Dynamic: Fair Standing Static: Fair Standing Dynamic: Fair Picking up an Object (QC): 88 Treatment Stood EOB x 3-4 minutes to cleanse periarea and change wet depend as well as apply clean depend. Pt dependent for all roderick care and application of depend. CG-min assist for balance in standing. BP in supine 169/70, seated EOB 140/65, standing 119/62; after transfer to the chair 124/47 Assessment/Needs Pt presents with need for cues and assist with all functional mobility with limited initiation of tasks. He has strength, balance and awareness deficits that impair safety. He will benefit from skilled PT to address mobiltiy to work to allow him to return to his PLOF. Rehab Potential: Guarded PT Chcf Goals Chcf Goals PT Umbrella Cutter Goals Time Frame: Oct 07, 2019 Roll Left & Right (QC): 4 Sit to Lying (QC): 4 Lying-Sitting on Side/Bed(QC): 4 Sit to Stand (QC): 4 Chair/Alg-uz-Ualxj Xfer(QC): 4 Toilet Transfer (QC): 4 Car Transfer (QC): 4 Does the Patient Walk: Yes Walk 10 feet (QC): 3 Walk 50ft with 2 Turns (QC): 3 Walk 150 ft (QC): 3 Walking 10ft on Uneven Surface: 3 1 Step (curb) (QC): 3 4 Steps (QC): 88 12 Steps (QC): 88 Picking up an Object (QC): 88 Does the Pt use WC or Scooter?: No Type: N/A Type: N/A PT Plan Problem List Problem List: Activity Tolerance, Functional Strength, Safety, Balance, Gait, Transfer, Bed Mobility Treatment/Plan Treatment Plan: Continue Plan of Care Treatment Plan: Bed Mobility, Education, Functional Activity Navya, Functional Strength, Gait, Safety, Therapeutic Exercise, Transfers Treatment Duration: Oct 07, 2019 Frequency: 5 times per week Estimated Hrs Per Day: .5 hour per day Patient and/or Family Agrees t: Yes Safety Risks/Education Patient Education: Transfer Techniques, Safety Issues Teaching Recipient: Patient Teaching Methods: Demonstration, Discussion Response to Teaching: Reinforcement Needed Time/GCodes Time In: 835 Time Out: 904 Total Billed Treatment Time: 29 Total Billed Treatment visit EVM 15 FA 14 SRINIVAS ANDERSON PT Sep 28, 2019 09:36
--- NOTE | 2019-09-28 09:45 | Cardiology Progress Note ---
Subjective Date Seen by Provider: Sep 28, 2019 Time Seen by Provider: 09:43 Subjective/Events-last exam Patient is laying down in bed, he was transferred to the medical floor due to recent diagnosis of pneumonia. Eating breakfast, denied any chest pain, still having mild cough, still having generalized weakness. Review of Systems General: No Chills, No Night Sweats; Fatigue, Malaise; No Appetite, No Other HEENT: No Head Aches, No Visual Changes, No Eye Pain, No Ear Pain, No Dysphasia, No Sinus Congestion, No Post Nasal Drip, No Sore Throat, No Other Pulmonary: Dyspnea, Cough; No Pleuritic Chest Pain, No Other Cardiovascular: No: Chest Pain, Palpitations, Orthopnea, Paroxysmal Noc. Dyspnea, Edema, Lt Headedness, Other Objective-Cardiology Exam Last Set of Vital Signs Vital Signs Capillary Refill : Less Than 3 Seconds I&O Intake and Output 09/28/19 00:00 Intake Total 300 ml Balance 300 ml Intake Oral 300 ml # Voids 3 # Bowel Movements 1 Daily Weight Change Yes, 2-13 lbs Yes, 2-13 lbs General: Alert, Cooperative, No Acute Distress HEENT: Atraumatic, PERRLA Neck: Supple, No JVD Lungs: Normal Air Movement, Other (bilateral rhonchi) Heart: Regular Rate, Normal S1, Normal S2 Abdomen: Normal Bowel Sounds, No Tenderness Extremities: No Clubbing, No Edema Skin: No Rashes, No Breakdown Neuro: Normal Speech, Sensation Intact Psych/Mental Status: Mood NL Results Lab Laboratory Tests 09/28/19 05:34 09/28/19 05:39 A/P-Cardiology Admission Diagnosis Pneumonia Syncope Coronary artery disease Peripheral arterial disease Assessment/Plan Pneumonia, transferred to medical floor, receiving antibiotic and improving slowly. Generalized weakness, severe orthostatic hypotension, labile blood pressure, currently off all blood pressure medication. 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 Severe disease at the distal posterior tibial artery proximal anterior tibial artery. Heavily calcified left SFA with multiple segments of moderate to severe disease with occluded anterior tibial artery. Patient is maintained on Plavix and aspirin. Wound to right lower extremity is healing. Patient has known severe disease on the left side, we will continue with conservative management unless patient becomes symptomatic due to his comorbidities. Currently not having any symptoms, does not have any ulceration to left lower extremity. Continue to monitor Sick sinus syndrome, history of episodes of bradycardia with complete heart block, frequent PVCs, ventricular bigeminy and ventricular couplets, short PAT's. 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 Continue to monitor Nonsustained ventricular tachycardia, No recent arrhythmia on pacemaker interrogation, continue to monitor. Paroxysmal atrial fibrillation, currently off amiodarone, continue to monitor on telemetry [id number] score of 6, high risk, yearly risk of stroke without OAC is 9.8%. Maintained on Xarelto, continue to monitor Coronary artery disease, multiple interventions in the past, most recent cardiac catheterization done March 14, 2015 revealed extensive coronary artery disease, heavily calcified system, with 40 percent distal left main coronary artery stenosis. 3 stents in LAD proximally with 50-60 percent in-stent restenosis. Distal LAD had 95 percent stenosis followed by 80 percent stenosis long segment, very small artery not amendable to intervention. Total occlusion of the first obtuse marginal branch filled by collaterals. Patent stent in the proximal mid second OM branch with moderate disease in the distal proper circumflex artery. Patent stent in the RCA with 50 percent proximal right coronary artery stenosis and 50-60 distal right coronary artery stenosis. Asymptomatic, continue to monitor Stress test in July 2016 showed fixed defect involving the whole inferior wall and inferoapical segment with dilated left ventricle, inferior wall hy pokinesia, Ejection fraction 54 percent. Echocardiogram showed ejection fraction 60 percent, dilated left atrium, mild to moderate mitral regurgitation and pulmonary artery pressure of 35 mmHg. continue to monitor, Hyperlipidemia, maintained on Crestor, continue to monitor lipids. History of CVA in 2010, mild residual right sided weakness, episodes of confusion occurred over the last year where patient became confused and drove over once to [place] and once to [place]. It was felt that it was a global ischemic attack with confusion, workup at that time was negative. He was seen by Dr. Jiménez and started on Dilantin, the dose was increased by Dr. Damon, followed and managed by primary care physician Congestive heart failure, EF 45-50 percent, as well as diastolic dysfunction per most recent 2-D echocardiogram done 2018, continue with current medication Diabetes mellitus, followed and managed by primary care physician Carotid stenosis, monitored by Dr. Simmons's office Dementia, managed by primary care physician. Ex-Tobaccoism, patient smokes pipe, he stopped smoking in October, encouraged to continue with smoking cessation Peripheral neuropathy, maintained on gabapentin. Continue on current medication, continue to monitor Sleep apnea, severe on sleep study in October 2015, does not use his machine. Clinical Quality Measures DVT/VTE Risk/Contraindication: Risk Factor Score Per Nursin RFS Level Per Nursing on Admit: 4+=Very High SEBASTIÁN VALLE MD Sep 28, 2019 09:45
[2019-09-28] MEDS: RT-ALBUTEROL SULF 2.5 MG/3 ML PRE-MIX VIAL INH SCH ×3 (10:01→22:53)
--- NOTE | 2019-09-28 10:59 | Occupational Therapy Eval ---
OT Evaluation-General/PLF Medical Diagnosis Admission Date Sep 27, 2019 at 16:02 Medical Diagnosis: pneumonia Onset Date: Sep 27, 2019 Therapy Diagnosis Therapy Diagnosis: Decreased ADL function Height/Weight Height (Feet): 6 Height (Inches): 0.00 Weight (Pounds): 177 Weight (Ounces): 9.6 Precautions Precautions/Isolations: Fall Prevention, Standard Precautions Safety Interventions: Bed Exit Alarm Weight Bear Status Weight Bearing Restriction: Weight Bearing/Tolerated Referral Physician: Boris Referral Reason: Activity Tolerance, Self Care, Evaluation/Treatment, Strengthening/ROM Medical History Pertinent Medical History: Atrial Fib, CAD, CVA, DM, Dementia, Parkinson's, PVD Additional Medical History a fib, high cholesterol, HTN, PVD, dementia, Parkinson's, CVA, IDDM, psoriasis, PAD Current History Pt transfers from ARU floor to acute due to decreased medical status, dx with pneumonia. Reviewed History: Yes Social History Home: Single Level Current Living Status: Spouse Entry Into Home: Stairs With Railing Steps Into Home: 2 ADL-Prior Level of Function SCALE: Activities may be completed with or without assistive devices. 8-Dglsximfpu-ycrpvht completes the activity by him/herself with no assistance from a helper. 5-Set-up or Clean-up Assistance-helper sets up or cleans up; patient completes activity. [place] assists only prior to or following the activity. 4-Supervision or Touching Assistance-helper provides verbal cues and/or touching/steadying and/or contact guard assistance as patient completes activity. Assistance may be provided throughout the activity or intermittently. 3-Partial/Moderate Assistance-helper does LESS THAN HALF the effort. [place] lifts, holds or supports trunk or limbs, but provides less than half the effort. 2-Substantial/Maximal Assistance-helper does MORE THAN HALF the effort. [place] lifts or holds trunk or limbs and provides more than half the effort. 6-Phzyxhlho-chqlww does ALL the effort. Patient does none of the effort to complete the activity. Or, the assistance of 2 or more helpers is required for the patient to complete the activity. If activity was not attempted, code reason: 7-Patient Refused. 9-Not Applicable-not attempted and the patient did not perform the activity before the current illness, exacerbation or injury. 10-Not Attempted due to Environmental Limitations-(lack of equipment, weather restraints, etc.). 88-Not Attempted due to Medical Conditions or Safety Concerns. ADL PLOF Comments Pt expresses he was IND with ADLs with use of FWW. Self Care: Needed Some Help Functional Cognition: Needed Some Help DME/Equipment: Bath Chair, Shower DME/Equipment Comments Pt expresses he has walkin shower with shower chair/ no grab bars. Prior evaluations state tub shower with no DME.. Occupation: retired Drive Self: No Leisure Interests: TV, naps OT Current Status Subjective Pt seen upright in recliner chair, denies pain. Pt agreeable to OT eval/ treat. Mental Status/Objective Patient Orientation: Person, Place Current Glasses/Contacts: Yes Hearing Aids: No Dentures/Partials: Yes Hand Dominance: Right Upper Extremity ROM WFL BUE (limited to ~110* shoulder flexion) Upper Extremity Coordination WFL BUE Upper Extremity Sensation WFL, denies paresthesias Upper Extremity Strength Decreased strength BUE, unable to follow directions for MMT ADL-Treatment Eating (QC): 7 Oral Hygiene (QC): 7 Shower/Bathe Self (QC): 7 Upper Body Dressing (QC): 7 Lower Body Dressing (QC): 7 On/Off Footwear (QC): 3 (Requires assist with LLE, SUP with RLE) Toileting Hygiene (QC): 7 Toilet Transfer (QC): 7 Other Treatments Pt seen in chair, pt educated on pneumonia status. Pt questioned on orientation questions- not oriented to year or situation. Pt educated again on pneumonia and why transferred to acute. Pt completes ADLs in chair, denies out of chair activities. Pt educated on deep breathing techniques to complete throughout the day. Pt return demonstrates with cues. Pt left in recliner chair, all needs met, call light in reach. Education OT Patient Education: Correct positioning, Exercise program, Home exercise program, Purpose of tx/functional activities, Rehab process, Safety issues Teaching Recipient: Patient Teaching Methods: Demonstration, Discussion Response to Teaching: Verbalize Understanding, Return Demonstration OT Short Term Goals Short Term Goals Time Frame: Oct 05, 2019 Upper body dressin Lower body dressin OT Alf Goals Group Reservations Coordinator Goals Time Frame: Oct 05, 2019 Eating (QC): 6 Oral Hygiene (QC): 6 Toileting Hygiene (QC): 6 Shower/Bathe Self (QC): 4 Upper Body Dressing (QC): 6 Lower Body Dressing (QC): 6 On/Off Footwear (QC): 6 Additional Goals: 1-Demonstrate ADL Tasks, 2-Verbalize Understanding, 3- ImproveStrength/[place] 1=Demonstrate adherence to instructed precautions during ADL tasks. 2=Patient will verbalize/demonstrate understanding of assistive devices/modifications for ADL. 3=Patient will improve strength/tolerance for activity to enable patient to perform ADL's. OT Education/Plan Problem List/Assessment Assessment: Decreased Activ Tolerance, Decreased Safety Aware, Decreased UE Strength, Impaired Bed Mobility, Impaired Cognition, Impaired Funct Balance, Impaired I ADL's, Impaired Self-Care Skills Discharge Recommendations Plan/Recommendations: Continue POC Therapy Discharge Recommendati: 24 Hour Supervision, Post Acute OT Equpiment Recommendations-D/C: Rails on Tub/Shower Treatment Plan/Plan of Care Treatment,Training & Education: Yes Patient would benefit from OT for education, treatment and training to promote independence in ADL's, mobility, safety and/or upper extremity function for ADL's. Plan of Care: ADL Retraining, Caregiver Training, Functional Mobility, UE Funct Exercise/Act Treatment Duration: Oct 05, 2019 Frequency: 5 times per week Estimated Hrs Per Day: .25 hour per day Agreement: Yes Rehab Potential: Guarded Time/GCodes Start Time: 10:19 Stop Time: 10:27 Total Time Billed (hr/min): 8 Billed Treatment Time JOSÉ Freitas (8) TYRA ALEJO OTR Sep 28, 2019 10:59
[2019-09-28] MEDS: BETHANECHOL 25 MG (URECHOLINE) TAB PO SCH ×3 (11:46→20:44)
[2019-09-28] MEDS: inSUlin ASPART (NovoLOG) 1 UNIT/0.01 ML (CHARGE PER UNIT) SC SCH ×3 (11:47→20:59)
[2019-09-28 12:00] VITALS: BP 136/63
--- NOTE | 2019-09-28 13:53 | NUR ---
GIVE EXTRA 4 UNITS OF LEVEMIR NOW & START LEVEMIR 14 UNITS DAILY IN AM (DC PM LEVEMIR DOSE). START [place]-S [address] CAPSULE [address] DA[address] RBTO [address] KENT [id number] 09-28-19
[2019-09-28] MEDS: CATHETER FLUSH 10 ML SYR IV SCH ×2 (14:13→22:41)
[2019-09-28] MEDS: DOCUSATE SODIUM 100 MG (COLACE) CAP PO SCH ×2 (14:24→20:43)
[2019-09-28] MEDS: SENNA W/DOCUSATE (SENOKOT S) TABLET PO SCH ×2 (14:25→20:43)
[2019-09-28] MEDS: POLYETHYLENE GLYCOL 17 GM (MIRALAX) PACK PO SCH ×2 (14:26→22:40)
[2019-09-28] MEDS: PIPERACILLIN/TAZOBACTAM (BULK) 4.5 GM in NS (IVPB) 100 ML IV SCH ×3 (16:12→22:46)
[2019-09-28 16:14] VITALS: BP 124/65
[2019-09-28] MEDS: TAMSULOSIN 0.4 MG (FLOMAX) CAP PO SCH (18:06)
[2019-09-28] MEDS: RIVAROXABAN 20 MG TABLET (XARELTO) PO SCH (18:06)
[2019-09-28 19:55] VITALS: BP 138/63
--- NOTE | 2019-09-28 20:06 | Wound Care Assessment ---
Wound Care Assessment Date Seen by Provider: Sep 28, 2019 Time Seen by Provider: 18:30 Chief Complaint R ankle ulcer. HPI The patient is a 78 year old male with history of a R ankle ulcer, primarily arterial, which has improved post revascularization. The wound has a stable appearance on silver alginate dressings. We will continue the same. Recreational Drug Use: No Alcohol Use: Denies Use Exam Vital Signs Date Time Temp Pulse Resp B/P (MAP) Pulse Ox O2 Delivery O2 Flow Rate FiO2 09/28/19 16:14 36.2 65 18 124/65 (84) 93 Room Air Capillary Refill : Less Than 3 Seconds Results Laboratory Tests 09/27/19 22:28: Glucometer 414*H 09/28/19 05:34: Sodium Level 136, Potassium Level 4.3, Chloride Level 103, Carbon Dioxide Level 24, Anion Gap 9, Blood Urea Nitrogen 27H, Creatinine 1.05, Estimat Glomerular Filtration Rate > 60, BUN/Creatinine Ratio 26, Glucose Level 210H, Calcium Level 8.6, Corrected Calcium 9.6, Total Bilirubin 0.8, Aspartate Amino Transf (AST/SGOT) 27, Alanine Aminotransferase (ALT/SGPT) 8, Alkaline Phosphatase 153H, B-Type Natriuretic Peptide 204.7H, Total Protein 5.6L, Albumin 2.7L 09/28/19 05:38: Glucometer 234H 09/28/19 05:39: White Blood Count 9.6, Red Blood Count 2.89L, Hemoglobin 9.1L, Hematocrit 27L, Mean Corpuscular Volume 95, Mean Corpuscular Hemoglobin 32, Mean Corpuscular Hemoglobin Concent 33, Red Cell Distribution Width 13.5, Platelet Count 229, Mean Platelet Volume 10.8H, Neutrophils (%) (Auto) 69, Lymphocytes (%) (Auto) 18, Monocytes (%) (Auto) 10, Eosinophils (%) (Auto) 3, Basophils (%) (Auto) 0, Neutrophils # (Auto) 6.7, Lymphocytes # (Auto) 1.7, Monocytes # (Auto) 0.9, Eosinophils # (Auto) 0.3, Basophils # (Auto) 0.0 09/28/19 11:11: Glucometer 316H 09/28/19 16:14: Glucometer 283H VICKIE STAPLETON MD Sep 28, 2019 20:06
[2019-09-28] MEDS: ASPIRIN E.C. 81 MG (ECOTRIN) TAB PO SCH (20:43)
[2019-09-28] MEDS: HYDROcodone/APAP 5 MG/325 MG (LORTAB) TAB PO PRN (20:43)
[2019-09-28] MEDS: NS IV 1000 ML 1,000 ML IV SCH (22:40)
[2019-09-29] VITALS (7 sets, daily range): BP systolic 118–167; BP diastolic 56–89
[2019-09-29] MEDS: NS IV 1000 ML 1,000 ML IV SCH (05:30)
[2019-09-29] MEDS: PIPERACILLIN/TAZOBACTAM (BULK) 4.5 GM in NS (IVPB) 100 ML IV SCH ×2 (05:30→15:54)
[2019-09-29] MEDS: BETHANECHOL 25 MG (URECHOLINE) TAB PO SCH ×4 (05:31→21:09)
[2019-09-29] MEDS: CATHETER FLUSH 10 ML SYR IV SCH ×3 (05:33→22:15)
[2019-09-29 06:09] LABS: BASOPHILS % (AUTO) 0 % (0-10); EOSINOPHILS # (AUTO) 0.4 10^3/uL (0.0-0.3); EOSINOPHILS % (AUTO) 4 % (0-10); HEMATOCRIT 27 % (40-54); LYMPHOCYTES % (AUTO) 18 % (12-44); MEAN CORPUSCULAR HEMOGLOBIN 31 PG (25-34); MEAN CORPUSCULAR HGB CONC 33 G/DL (32-36); MEAN CORPUSCULAR VOLUME 94 FL (80-99); MEAN PLATELET VOLUME 10.2 FL (7.4-10.4); MONOCYTES # (AUTO) 1.1 X 10^3 (0.0-1.0); MONOCYTES % (AUTO) 10 % (0-12); NEUTROPHILS # (AUTO) 7.4 X 10^3 (1.8-7.8); NEUTROPHILS % (AUTO) 68 % (42-75); PLATELET COUNT 268 10^3/uL (130-400); RED CELL DISTRIBUTION WIDTH 14.5 % (10.0-14.5); WHITE BLOOD COUNT 10.8 10^3/uL (4.3-11.0)
[2019-09-29] MEDS: inSUlin ASPART (NovoLOG) 1 UNIT/0.01 ML (CHARGE PER UNIT) SC SCH ×4 (06:26→21:10)
[2019-09-29 06:29] LABS: ALBUMIN 2.7 GM/DL (3.2-4.5); BILIRUBIN,TOTAL 0.8 MG/DL (0.1-1.0); CALCIUM 8.9 MG/DL (8.5-10.1); CREATININE SERUM 1.25 MG/DL (0.60-1.30); POTASSIUM 4.1 MMOL/L (3.6-5.0); TOTAL PROTEIN 5.5 GM/DL (6.4-8.2)
--- NOTE | 2019-09-29 07:15 | Pulmonary Progress Note ---
[facility] [employer] 09/29/19 0715: Subjective Date Seen by a Provider: Sep 29, 2019 Time Seen by a Provider: 07:00 Subjective/Events-last exam The patient is resting comfortably in his room and is awake and alert. He answers all questions appropriately and fully participates in the physical exam. He is reporting shortness of breath which he states is unchanged since yesterday. He is also experiencing a cough which he states is non-productive. He denies fever, chills, or chest pain. He has no concerns at this time. Sepsis Event Evaluation Height, Weight, BMI Height: 6'0.00" Weight: 177lbs. 9.6oz. 80.544804ii; 22.53 BMI Method:Stated Exam Exam Vital Signs Date Time Temp Pulse Resp B/P (MAP) Pulse Ox O2 Delivery O2 Flow Rate FiO2 09/29/19 04:00 37.1 77 18 144/69 (94) 94 Room Air 09/29/19 01:23 36.8 85 16 139/89 (106) 93 Room Air 09/29/19 01:00 86 09/29/19 00:00 36.8 85 16 139/89 (106) 93 Room Air 09/28/19 20:11 93 Room Air 09/28/19 19:55 36.6 84 20 138/63 (88) 94 Room Air 09/28/19 19:00 67 09/28/19 16:14 36.2 65 18 124/65 (84) 93 Room Air 09/28/19 14:30 92 Room Air 09/28/19 12:44 62 09/28/19 12:00 37.2 68 20 136/63 (87) 93 Room Air 09/28/19 10:01 94 Room Air 09/28/19 08:00 36.5 82 18 119/62 (81) 98 Room Air 09/28/19 08:00 Room Air I & O 09/29/19 07:00 Intake Total 940 ml Output Total 175 ml Balance 765 ml Height & Weight Height: 6'0.00" Weight: 177lbs. 9.6oz. 80.134380bc; 22.53 BMI Method:Stated General Appearance: No Apparent Distress, WD/WN HEENT: Normal ENT Inspection Neck: Full Range of Motion Respiratory: Lungs Clear, No Accessory Muscle Use, No Respiratory Distress Cardiovascular: Regular Rate, Rhythm, No Murmur Neurologic/Psychiatric: Alert, Normal Mood/Affect Skin: Normal Color Results Lab Laboratory Tests 09/28/19 05:34 09/28/19 05:39 09/29/19 05:00 09/29/19 05:50 Assessment/Plan Assessment/Plan RLL infiltrate r/o PNA -- no leukocytosis or fever -Continue Zosyn, started 09/27 -Cultures pending -Check BNP, 204.7 on 09/28 -Check echo Anemia -Monitor -Hgb: 9.0 Hct: 27 on 09/29 ELIEL YANES DO 09/29/19 1057: Subjective Time Seen by a Provider: 10:55 Subjective/Events-last exam Appears to be doing better. Exam Exam General Appearance: No Apparent Distress, WD/WN HEENT: Normal ENT Inspection Neck: Full Range of Motion Respiratory: Lungs Clear, No Accessory Muscle Use, No Respiratory Distress Cardiovascular: Regular Rate, Rhythm, No Murmur Gastrointestinal: soft Neurologic/Psychiatric: Alert Skin: Normal Color Assessment/Plan Assessment/Plan RLL infiltrate r/o PNA -- no leukocytosis or fever -Continue Zosyn, started 09/27 -Cultures pending -BNP, 204.7 on 09/28 -Check echo Anemia -Monitor -Hgb: 9.0 Hct: 27 on 09/29 [facility] [employer] Sep 29, 2019 07:15 ELIEL YANES DO Sep 29, 2019 10:57
--- NOTE | 2019-09-29 07:35 | Diagnostic Imaging Report ---
INDICATION: Pneumonia. COMPARISON: 09/28/2019 FINDINGS: Single frontal radiograph view the chest was obtained and demonstrates stable cardiac silhouette and pulmonary vascular tree. 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 Also again noted is hazy opacification of the right lower lung field. This is stable compared to prior exam. There is improved aeration in the left base. No large effusion is seen on the left. No pneumothorax is identified on either side. Osseous structures are stable. IMPRESSION: 1. Stable exam of the chest showing probable right basilar effusion with associated right basilar atelectasis and/or infiltrate. 2. Interval improved aeration in the left base. Dictated by: Dictated on workstation # [id number]
--- NOTE | 2019-09-29 07:49 | Progress Note ---
Subjective Time Seen by a Provider: 07:46 Subjective/Events-last exam Patient awake and alert this morning. Patient's blood sugar 110 this morning. Right ankle ulcer, also doing good. Waiting for chest x-ray results Objective Exam Vital Signs Date Time Temp Pulse Resp B/P (MAP) Pulse Ox O2 Delivery O2 Flow Rate FiO2 09/29/19 07:00 72 09/29/19 04:00 37.1 77 18 144/69 (94) 94 Room Air 09/29/19 01:23 36.8 85 16 139/89 (106) 93 Room Air 09/29/19 01:00 86 09/29/19 00:00 36.8 85 16 139/89 (106) 93 Room Air 09/28/19 20:11 93 Room Air 09/28/19 19:55 36.6 84 20 138/63 (88) 94 Room Air 09/28/19 19:00 67 09/28/19 16:14 36.2 65 18 124/65 (84) 93 Room Air 09/28/19 14:30 92 Room Air 09/28/19 12:44 62 09/28/19 12:00 37.2 68 20 136/63 (87) 93 Room Air 09/28/19 10:01 94 Room Air 09/28/19 08:00 36.5 82 18 119/62 (81) 98 Room Air 09/28/19 08:00 Room Air I & O 09/29/19 07:00 Intake Total 940 ml Output Total 175 ml Balance 765 ml Capillary Refill : Less Than 3 Seconds General Appearance: No Apparent Distress, WD/WN HEENT: Normal ENT Inspection Neck: Full Range of Motion, Normal Inspection Respiratory: Lungs Clear, No Accessory Muscle Use, No Respiratory Distress Cardiovascular: Regular Rate, Rhythm, No Murmur Gastrointestinal: non tender, soft Results Lab Laboratory Tests 09/29/19 05:00 09/29/19 05:50 Laboratory Tests 09/28/19 11:11: Glucometer 316H 09/28/19 16:14: Glucometer 283H 09/28/19 20:54: Glucometer 297H 09/29/19 05:00: Sodium Level 138, Potassium Level 4.1, Chloride Level 105, Carbon Dioxide Level 23, Anion Gap 10, Blood Urea Nitrogen 26H, Creatinine 1.25, Estimat Glomerular Filtration Rate 56, BUN/Creatinine Ratio 21, Glucose Level 102, Calcium Level 8.9, Corrected Calcium 9.9, Total Bilirubin 0.8, Aspartate Amino Transf (A ST/SGOT) 33, Alanine Aminotransferase (ALT/SGPT) 8, Alkaline Phosphatase 121, Total Protein 5.5L, Albumin 2.7L 09/29/19 05:50: White Blood Count 10.8, Red Blood Count 2.87L, Hemoglobin 9.0L, Hematocrit 27L, Mean Corpuscular Volume 94, Mean Corpuscular Hemoglobin 31, Mean Corpuscular Hemoglobin Concent 33, Red Cell Distribution Width 14.5, Platelet Count 268, Mean Platelet Volume 10.2, Neutrophils (%) (Auto) 68, Lymphocytes (%) (Auto) 18, Monocytes (%) (Auto) 10, Eosinophils (%) (Auto) 4, Basophils (%) (Auto) 0, Neutrophils # (Auto) 7.4, Lymphocytes # (Auto) 2.0, Monocytes # (Auto) 1.1H, Eosinophils # (Auto) 0.4H, Basophils # (Auto) 0.0 09/29/19 05:51: Glucometer 110 Assessment/Plan Assessment/Plan Assess & Plan/Chief Complaint Pneumonia. Right rib fractures. Diabetes. Peripheral artery disease. Dementia. Weakness. Orthostatic hypotension history. Hypertension Clinical Quality Measures Admission Status Admission Dx Pneumonia. Peripheral artery disease. Diabetes. Dementia. Orthostatic hypotension. Weakness DVT/VTE Risk/Contraindication: Risk Factor Score Per Nursin RFS Level Per Nursing on Admit: 4+=Very High DENIZ KENT DO Sep 29, 2019 07:49
--- NOTE | 2019-09-29 08:55 | Cardiology Progress Note ---
Subjective Date Seen by Provider: Sep 29, 2019 Time Seen by Provider: 08:53 Subjective/Events-last exam Patient is laying down in bed, complaining of fatigue, still having orthostatic dizziness. No chest pain. Review of Systems General: No Chills, No Night Sweats; Fatigue; No Malaise, No Appetite, No Other HEENT: No Head Aches, No Visual Changes, No Eye Pain, No Ear Pain, No Dysphasia, No Sinus Congestion, No Post Nasal Drip, No Sore Throat, No Other Pulmonary: Dyspnea; No Cough, No Pleuritic Chest Pain, No Other Cardiovascular: No: Chest Pain, Palpitations, Orthopnea, Paroxysmal Noc. Dyspnea, Edema, Lt Headedness, Other Objective-Cardiology Exam Last Set of Vital Signs Vital Signs 09/29/19 07:44 Temp 36.8 Pulse 65 Resp 16 B/P (MAP) 118/56 (76) Pulse Ox 94 O2 Delivery Room Air Capillary Refill : Less Than 3 Seconds I&O Intake and Output 09/29/19 00:00 Intake Total 740 ml Output Total 175 ml Balance 565 ml Intake Oral 620 ml IV Total 120 ml Output Urine Total 175 ml # Voids 4 # Bowel Movements 3 General: Alert, Cooperative, No Acute Distress HEENT: Atraumatic, PERRLA Neck: Supple, No JVD Lungs: Normal Air Movement, Other (bilateral rhonchi) Heart: Regular Rate, Normal S1, Normal S2 Abdomen: Normal Bowel Sounds, No Tenderness Extremities: No Clubbing, No Edema Skin: No Rashes, No Breakdown Neuro: Normal Speech, Sensation Intact Psych/Mental Status: Mood NL Results Lab Laboratory Tests 09/29/19 05:00 09/29/19 05:50 A/P-Cardiology Admission Diagnosis Pneumonia Syncope Coronary artery disease Peripheral arterial disease Assessment/Plan Pneumonia, some improvement on chest x-ray, still receiving antibiotic, continue to monitor Generalized weakness, severe orthostatic hypotension, labile blood pressure, currently off all blood pressure medication. 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 Severe disease at the distal posterior tibial artery proximal anterior tibial artery. Heavily calcified left SFA with multiple segments of moderate to severe disease with occluded anterior tibial artery. Patient is maintained on Plavix and aspirin. Wound to right lower extremity is healing. Patient has known severe disease on the left side, we will continue with conservative management unless patient becomes symptomatic due to his comorbidities. Currently not having any symptoms, does not have any ulceration to left lower extremity. Continue to monitor Sick sinus syndrome, history of episodes of bradycardia with complete heart block, frequent PVCs, ventricular bigeminy and ventricular couplets, short PAT's. Status post permanent pacemaker implantation April 2015, using a [employer] device Advisa DR GONZALEZ, last interrogation was done in June 2019 showing good sensing and capture activity, longevity for the battery is 4 years, no arrhythmia was detected. Continue to monitor Nonsustained ventricular tachycardia, No recent arrhythmia on pacemaker interrogation, continue to monitor. Paroxysmal atrial fibrillation, currently off amiodarone, continue to monitor on telemetry [id number] score of 6, high risk, yearly risk of stroke without OAC is 9.8%. Maintained on Xarelto, continue to monitor Coronary artery disease, multiple interventions in the past, most recent cardiac catheterization done March 14, 2015 revealed extensive coronary artery disease, heavily calcified system, with 40 percent distal left main coronary artery stenosis. 3 stents in LAD proximally with 50-60 percent in-stent restenosis. Distal LAD had 95 percent stenosis followed by 80 percent stenosis long segment, very small artery not amendable to intervention. Total occlusion of the first obtuse marginal branch filled by collaterals. Patent stent in the proximal mid second OM branch with moderate disease in the distal proper circumflex artery. Patent stent in the RCA with 50 percent proximal right coronary artery stenosis and 50-60 distal right coronary artery stenosis. Asymptomatic, continue to monitor Stress test in July 2016 showed fixed defect involving the whole inferior wall and inferoapical segment with dilated left ventricle, inferior wall hypokinesia, Ejection fraction 54 percent. Echocardiogram showed ejection fraction 60 percent, dilated left atrium, mild to moderate mitral regurgitation and pulmonary artery pressure of 35 mmHg. continue to monitor, Hyperlipidemia, maintained on Crestor, continue to monitor lipids. History of CVA in 2010, mild residual right sided weakness, episodes of confusion occurred over the last year where patient became confused and drove over once to [place] and once to [place]. It was felt that it was a global ischemic attack with confusion, workup at that time was negative. He was seen by Dr. Jiménez and started on Dilantin, the dose was increased by Dr. Damon, followed and managed by primary care physician Congestive heart failure, EF 45-50 percent, as well as diastolic dysfunction per most recent 2-D echocardiogram done 2018, continue with current medication Diabetes mellitus, followed and managed by primary care physician Carotid stenosis, monitored by Dr. Simmons's office Dementia, managed by primary care physician. Ex-Tobaccoism, patient smokes pipe, he stopped smoking in October, encouraged to continue with smoking cessation Peripheral neuropathy, maintained on gabapentin. Continue on current medication, continue to monitor Sleep apnea, severe on sleep study in October 2015, does not use his machine. Clinical Quality Measures DVT/VTE Risk/Contraindication: Risk Factor Score Per Nursin RFS Level Per Nursing on Admit: 4+=Very High SEBASTIÁN VALLE MD Sep 29, 2019 8:55 am
[2019-09-29] MEDS: RT-ALBUTEROL SULF 2.5 MG/3 ML PRE-MIX VIAL INH SCH ×3 (09:02→19:39)
[2019-09-29] MEDS: PANTOPRAZOLE 40 MG (PROTONIX) TAB PO SCH (09:05)
[2019-09-29] MEDS: DOCUSATE SODIUM 100 MG (COLACE) CAP PO SCH ×2 (09:05→21:11)
[2019-09-29] MEDS: CLOPIDOGREL 75 MG (PLAVIX) TABLET PO SCH (09:05)
[2019-09-29] MEDS: SENNA W/DOCUSATE (SENOKOT S) TABLET PO SCH ×2 (09:05→21:06)
[2019-09-29] MEDS: SINEMET CR 50/200 (CARBIDOPA/LEVODOPA SA) TAB PO SCH ×3 (09:06→21:09)
[2019-09-29] MEDS: POLYETHYLENE GLYCOL 17 GM (MIRALAX) PACK PO SCH ×2 (09:08→21:11)
--- NOTE | 2019-09-29 12:20 | Physical Therapy Daily Note ---
PT Daily Note-Current Subjective Pt laying Supine in bed upon arrival. Pt is asleep and drowsy and needs frequent redirection to stay awake. Pain Location: No Pain Reported Mental Status Patient Orientation: Person, Confused, Place Transfers SCALE: Activities may be completed with or without assistive devices. 8-Xtspqtbeoi-tjjijpy completes the activity by him/herself with no assistance from a helper. 5-Set-up or Clean-up Assistance-helper sets up or cleans up; patient completes activity. [place] assists only prior to or following the activity. 4-Supervision or Touching Assistance-helper provides verbal cues and/or touching/steadying and/or contact guard assistance as patient completes activity. Assistance may be provided throughout the activity or intermittently. 3-Partial/Moderate Assistance-helper does LESS THAN HALF the effort. [place] lifts, holds or supports trunk or limbs, but provides less than half the effort. 2-Substantial/Maximal Assistance-helper does MORE THAN HALF the effort. [place] lifts or holds trunk or limbs and provides more than half the effort. 5-Suvjfdaio-ccvhfn does ALL the effort. Patient does none of the effort to complete the activity. Or, the assistance of 2 or more helpers is required for the patient to complete the activity. If activity was not attempted, code reason: 7-Patient Refused. 9-Not Applicable-not attempted and the patient did not perform the activity before the current illness, exacerbation or injury. 10-Not Attempted due to Environmental Limitations-(lack of equipment, weather restraints, etc.). 88-Not Attempted due to Medical Conditions or Safety Concerns. Weight Bearing Right Lower Extremity: Right Weight Bearing/Tolerated Left Lower Extremity: Left Weight Bearing/Tolerated Exercises Supine Ex: Ankle pumps, Quad Set, Heel Slides, Hip abd/add Supine Reps: 15 Treatments Pt completes Supine EX with frequent redirection to stay awake. Dr Christie checks on pt during Rx and Aide checks Blood Sugar & vitals. Assessment Current Status: Fair Progress Pt is very drowsy and difficult to keep awake. 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 Time Frame: Oct 07, 2019 Roll Left & Right (QC): 4 Sit to Lying (QC): 4 Lying-Sitting on Side/Bed(QC): 4 Sit to Stand (QC): 4 Chair/Vme-lk-Iofwq Xfer(QC): 4 Toilet Transfer (QC): 4 Car Transfer (QC): 4 Does the Patient Walk: Yes Walk 10 feet (QC): 3 Walk 50ft with 2 Turns (QC): 3 Walk 150 ft (QC): 3 Walking 10ft on Uneven Surface: 3 1 Step (curb) (QC): 3 4 Steps (QC): 88 12 Steps (QC): 88 Picking up an Object (QC): 88 Does the Pt use WC or Scooter?: No Type: N/A Type: N/A PT Plan Problem List Problem List: Activity Tolerance, Functional Strength, Safety, Balance, Gait, Transfer, Bed Mobility Treatment/Plan Treatment Plan: Continue Plan of Care Treatment Plan: Bed Mobility, Education, Functional Activity Navya, Functional Strength, Gait, Safety, Therapeutic Exercise, Transfers Treatment Duration: Oct 07, 2019 Frequency: 5 times per week Estimated Hrs Per Day: .5 hour per day Patient and/or Family Agrees t: Yes Safety Risks/Education Patient Education: Correct Positioning, Safety Issues Teaching Recipient: Patient Teaching Methods: Discussion Response to Teaching: Reinforcement Needed Time/GCodes Time In: 1115 Time Out: 1125 Total Billed Treatment Time: 10 Total Billed Treatment 1, EX (10m) DENY IBARRA PTA Sep 29, 2019 12:20
--- NOTE | 2019-09-29 14:58 | Occupational Ther Daily Note ---
OT Current Status-Daily Note Subjective Pt seen in bed asleep, leaning to L side. Pt wakes with verbals, unable to situate self upright, agreeable to OT tx session. Pt denies pain, grimaces/ agrees to moderate pain during mobility. ADL-Treatment Therapy Code Descriptions/Definitions Functional [place] Measure: 0=Not Assessed/NA 4=Minimal Assistance 1=Total Assistance 5=Supervision or Setup 2=Maximal Assistance 6=Modified [place] 3=Moderate Assistance 7=Complete IndependenceSCALE: Activities may be completed with or without assistive devices. 8-Akxzkpsjpn-webfhfy completes the activity by him/herself with no assistance from a helper. 5-Set-up or Clean-up Assistance-helper sets up or cleans up; patient completes activity. [place] assists only prior to or following the activity. 4-Supervision or Touching Assistance-helper provides verbal cues and/or touch ing/steadying and/or contact guard assistance as patient completes activity. Assistance may be provided throughout the activity or intermittently. 3-Partial/Moderate Assistance-helper does LESS THAN HALF the effort. [place] lifts, holds or supports trunk or limbs, but provides less than half the effort. 2-Substantial/Maximal Assistance-helper does MORE THAN HALF the effort. [place] lifts or holds trunk or limbs and provides more than half the effort. 4-Pocjzdxeb-xkixtj does ALL the effort. Patient does none of the effort to complete the activity. Or, the assistance of 2 or more helpers is required for the patient to complete the activity. If activity was not attempted, code reason: 7-Patient Refused. 9-Not Applicable-not attempted and the patient did not perform the activity before the current illness, exacerbation or injury. 10-Not Attempted due to Environmental Limitations-(lack of equipment, weather restraints, etc.). 88-Not Attempted due to Medical Conditions or Safety Concerns. Other Treatment Pt leaning to L side, R arm somewhat edematous on this date. 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 Pt strongly denies OOB activity, educated on benefits and pneumonia status. Pt states he didn't know he had pneumonia. Pt completes bed mob to sit straight with TD, expresses pain in back. Pt unable to maintain upright position and leans to L side, blankets wet from saliva. Pt positioned with pillows on L side to encourage upright position, pt educated on salivation and blankets changed. Pt's R dorsal foot has pitted edema, positioned with pillow to decrease swelling and larger sock placed on pt (indentions noted on R ankle). Pt educated of reasoning of position changes. Pt left in bed, call light in reach, all needs met, positioned for success. Education OT Patient Education: Correct positioning, Progress toward Goal/Update tx plan, Purpose of tx/functional activities, Safety issues Teaching Recipient: Patient Teaching Methods: Demonstration, Discussion Response to Teaching: Verbalize Understanding, Return Demonstration OT Short Term Goals Short Term Goals Time Frame: Oct 05, 2019 Upper body dressin Lower body dressin OT [facility] Goals [facility] Goals Time Frame: Oct 05, 2019 Eating (QC): 6 Oral Hygiene (QC): 6 Toileting Hygiene (QC): 6 Shower/Bathe Self (QC): 4 Upper Body Dressing (QC): 6 Lower Body Dressing (QC): 6 On/Off Footwear (QC): 6 Additional Goals: 1-Demonstrate ADL Tasks, 2-Verbalize Understanding, 3- ImproveStrength/Navya 1=Demonstrate adherence to instructed precautions during ADL tasks. 2=Patient will verbalize/demonstrate understanding of assistive devices/modifications for ADL. 3=Patient will improve strength/tolerance for activity to enable patient to perform ADL's. OT Education/Plan Problem List/Assessment Assessment: Decreased Activ Tolerance, Decreased UE Strength, Dependent Transfers, Edema, Impaired Bed Mobility, Impaired Cognition, Impaired Funct Balance, Impaired I ADL's, Impaired Self-Care Skills Discharge Recommendations Plan/Recommendations: Continue POC Therapy Discharge Recommendati: 24 Hour Supervision Treatment Plan/Plan of Care Treatment,Training & Education: Yes Patient would benefit from OT for education, treatment and training to promote independence in ADL's, mobility, safety and/or upper extremity function for ADL's. Plan of Care: ADL Retraining, Caregiver Training, Functional Mobility, UE Funct Exercise/Act Treatment Duration: Oct 05, 2019 Frequency: 5 times per week Estimated Hrs Per Day: .25 hour per day Agreement: Yes Rehab Potential: Guarded Time/GCodes Start Time: 14:23 Stop Time: 14:35 Total Time Billed (hr/min): 12 Billed Treatment Time 1, KUSH (12) TYRA ALEJO OTR Sep 29, 2019 14:58
[2019-09-29] MEDS: TAMSULOSIN 0.4 MG (FLOMAX) CAP PO SCH (17:05)
[2019-09-29] MEDS: RIVAROXABAN 20 MG TABLET (XARELTO) PO SCH (17:05)
[2019-09-29] MEDS: HYDROcodone/APAP 5 MG/325 MG (LORTAB) TAB PO PRN (21:07)
[2019-09-29] MEDS: ASPIRIN E.C. 81 MG (ECOTRIN) TAB PO SCH (21:07)
[2019-09-30] VITALS (7 sets, daily range): BP systolic 125–162; BP diastolic 60–73
[2019-09-30] MEDS: PIPERACILLIN/TAZOBACTAM (BULK) 4.5 GM in NS (IVPB) 100 ML IV SCH ×3 (00:37→15:44)
[2019-09-30] MEDS: inSUlin ASPART (NovoLOG) 1 UNIT/0.01 ML (CHARGE PER UNIT) SC SCH ×4 (05:06→21:34)
[2019-09-30] MEDS: CATHETER FLUSH 10 ML SYR IV SCH ×3 (05:06→21:35)
[2019-09-30] MEDS: BETHANECHOL 25 MG (URECHOLINE) TAB PO SCH ×4 (06:02→21:34)
[2019-09-30] MEDS: POLYETHYLENE GLYCOL 17 GM (MIRALAX) PACK PO SCH ×2 (08:01→21:34)
--- NOTE | 2019-09-30 08:32 | Physical Therapy Daily Note ---
PT Daily Note-Current Subjective Pt more alert this morning and agreeable to PT session. Pain Numeric Pain Scale: 0-No Pain Appearance Pt in bed leaning to L side upon arrival, easily aroused, able to slowly correct lean to neutral position with instruction and tactile cueing. At end of session, pt sitting up in recliner with LE's elevated, alarm activated, call light, phone and bedside table within reach. Mental Status Patient Orientation: Confused Attachments: IV Transfers SCALE: Activities may be completed with or without assistive devices. 7-Nnaviyfyku-zdgvcaa completes the activity by him/herself with no assistance from a helper. 5-Set-up or Clean-up Assistance-helper sets up or cleans up; patient completes activity. [place] assists only prior to or following the activity. 4-Supervision or Touching Assistance-helper provides verbal cues and/or touching/steadying and/or contact guard assistance as patient completes activity. Assistance may be provided throughout the activity or intermittently. 3-Partial/Moderate Assistance-helper does LESS THAN HALF the effort. [place] lifts, holds or supports trunk or limbs, but provides less than half the effort. 2-Substantial/Maximal Assistance-helper does MORE THAN HALF the effort. [place] lifts or holds trunk or limbs and provides more than half the effort. 0-Wmsckblez-telbgp does ALL the effort. Patient does none of the effort to complete the activity. Or, the assistance of 2 or more helpers is required for the patient to complete the activity. If activity was not attempted, code reason: 7-Patient Refused. 9-Not Applicable-not attempted and the patient did not perform the activity before the current illness, exacerbation or injury. 10-Not Attempted due to Environmental Limitations-(lack of equipment, weather restraints, etc.). 88-Not Attempted due to Medical Conditions or Safety Concerns. Roll Left & Right (QC): 3 Lying to Sitting/Side of Bed(Q: 3 Sit to Stand (QC): 4 Chair/Gtk-fc-Mmovx Xfer(QC): 4 slow transitions, able to follow verbal instruction with tactile cueing, min A rolling and sup to sit with HOB elevated and use of bedrail. 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 Goals Cage Supervisor Goals PT [facility] Goals Time Frame: Oct 07, 2019 Roll Left & Right (QC): 4 Sit to Lying (QC): 4 Lying-Sitting on Side/Bed(QC): 4 Sit to Stand (QC): 4 Chair/Ery-kv-Vupyl Xfer(QC): 4 Toilet Transfer (QC): 4 Car Transfer (QC): 4 Does the Patient Walk: Yes Walk 10 feet (QC): 3 Walk 50ft with 2 Turns (QC): 3 Walk 150 ft (QC): 3 Walking 10ft on Uneven Surface: 3 1 Step (curb) (QC): 3 4 Steps (QC): 88 12 Steps (QC): 88 Picking up an Object (QC): 88 Does the Pt use WC or Scooter?: No Type: N/A Type: N/A PT Plan Treatment/Plan Treatment Plan: Continue Plan of Care Treatment Plan: Bed Mobility, Education, Functional Activity Navya, Functional Strength, Gait, Safety, Therapeutic Exercise, Transfers Treatment Duration: Oct 07, 2019 Frequency: 5 times per week Estimated Hrs Per Day: .5 hour per day Patient and/or Family Agrees t: Yes Safety Risks/Education Patient Education: Transfer Techniques, Correct Positioning, Safety Issues Teaching Recipient: Patient Teaching Methods: Demonstration, Discussion Response to Teaching: Return Demonstration, Reinforcement Needed Time/GCodes Time In: 810 Time Out: 833 Total Billed Treatment Time: 23 Total Billed Treatment 1 visit, FA x13 min, EX x10 min JOHNNA BOSWELL PRODUCT ASSURANCE ENGINEER Sep 30, 2019 08:32
[2019-09-30] MEDS: RT-ALBUTEROL SULF 2.5 MG/3 ML PRE-MIX VIAL INH SCH ×3 (08:38→21:41)
[2019-09-30] MEDS: CLOPIDOGREL 75 MG (PLAVIX) TABLET PO SCH (08:52)
[2019-09-30] MEDS: DOCUSATE SODIUM 100 MG (COLACE) CAP PO SCH ×2 (08:52→21:33)
[2019-09-30] MEDS: SENNA W/DOCUSATE (SENOKOT S) TABLET PO SCH ×2 (08:52→21:33)
[2019-09-30] MEDS: PANTOPRAZOLE 40 MG (PROTONIX) TAB PO SCH (08:52)
[2019-09-30] MEDS: SINEMET CR 50/200 (CARBIDOPA/LEVODOPA SA) TAB PO SCH ×3 (08:52→21:33)
--- NOTE | 2019-09-30 09:47 | Occupational Ther Daily Note ---
OT Current Status-Daily Note Subjective Pt seated upright in recliner at start of session, declined ADLs and UE exercises on this date but agreeable with min encouragement. OT reoriented pt to him being in the hospital with pneumonia. Mental Status/Objective Patient Orientation: Person ADL-Treatment Therapy Code Descriptions/Definitions Functional [place] Measure: 0=Not Assessed/NA 4=Minimal Assistance 1=Total Assistance 5=Supervision or Setup 2=Maximal Assistance 6=Modified [place] 3=Moderate Assistance 7=Complete IndependenceSCALE: Activities may be completed with or without assistive devices. 7-Bzjlewouwy-ckelcfr completes the activity by him/herself with no assistance from a helper. 5-Set-up or Clean-up Assistance-helper sets up or cleans up; patient completes activity. [place] assists only prior to or following the activity. 4-Supervision or Touching Assistance-helper provides verbal cues and/or touching/steadying and/or contact guard assistance as patient completes activity. Assistance may be provided throughout the activity or intermittently. 3-Partial/Moderate Assistance-helper does LESS THAN HALF the effort. [place] lifts, holds or supports trunk or limbs, but provides less than half the effort. 2-Substantial/Maximal Assistance-helper does MORE THAN HALF the effort. [place] lifts or holds trunk or limbs and provides more than half the effort. 2-Ibfeqdniv-eepygs does ALL the effort. Patient does none of the effort to complete the activity. Or, the assistance of 2 or more helpers is required for the patient to complete the activity. If activity was not attempted, code reason: 7-Patient Refused. 9-Not Applicable-not attempted and the patient did not perform the activity before the current illness, exacerbation or injury. 10-Not Attempted due to Environmental Limitations-(lack of equipment, weather restraints, etc.). 88-Not Attempted due to Medical Conditions or Safety Concerns. Upper Body Dressing (QC): 2 (Pt able to remove left arm from gown, required assistance with R due to IV. OT assisted with tying/untying gown.) Other Treatment Pt seated in recliner, OT reoriented pt as nurse aide changed pt's bed. Pt then completed sit to stand with min A, 1 verbal cue to stand up straight at FWW with CGA for 1 min as aide changed linens on his recliner. Pt then sat back down with CGA. Pt then changed gown. Nurse present to give pt meds. Post OT session, pt seated in recliner, chair alarm on with nurse and aide present. Education OT Patient Education: Correct positioning, Energy conservation, Modified ADL techniques, Progress toward Goal/Update tx plan, Purpose of tx/functional activities, Transfer techniques Teaching Recipient: Patient Teaching Methods: Demonstration Response to Teaching: Verbalize Understanding OT Short Term Goals Short Term Goals Time Frame: Oct 05, 2019 Upper body dressin Lower body dressin OT Fpc Goals Fpc Goals Time Frame: Oct 05, 2019 Eating (QC): 6 Oral Hygiene (QC): 6 Toileting Hygiene (QC): 6 Shower/Bathe Self (QC): 4 Upper Body Dressing (QC): 6 Lower Body Dressing (QC): 6 On/Off Footwear (QC): 6 Additional Goals: 1-Demonstrate ADL Tasks, 2-Verbalize Understanding, 3-ImproveStrength/[place] 1=Demonstrate adherence to instructed precautions during ADL tasks. 2=Patient will verbalize/demonstrate understanding of assistive devices/modifications for ADL. 3=Patient will improve strength/tolerance for activity to enable patient to perform ADL's. OT Education/Plan Problem List/Assessment Assessment: Decreased Activ Tolerance, Decreased UE Strength, Impaired Cognition, Impaired Funct Balance, Impaired I ADL's, Impaired Self-Care Skills Discharge Recommendations Plan/Recommendations: Continue POC Treatment Plan/Plan of Care Treatment,Training & Education: Yes Patient would benefit from OT for education, treatment and training to promote independence in ADL's, mobility, safety and/or upper extremity function for ADL's. Plan of Care: ADL Retraining, Caregiver Training, Functional Mobility, UE Funct Exercise/Act Treatment Duration: Oct 05, 2019 Frequency: 5 times per week Estimated Hrs Per Day: .25 hour per day Agreement: Yes Rehab Potential: Guarded Time/GCodes Start Time: 08:45 Stop Time: 09:00 Total Time Billed (hr/min): 15 Billed Treatment Time 1, ADL SHITAL LLANES OT Sep 30, 2019 09:47
--- NOTE | 2019-09-30 10:05 | Cardiology Progress Note ---
Cardiology SOAP Progress Note Objective: I&O/Vital Signs 10/01/19 10/01/19 10/01/19 10/01/19 04:00 07:00 07:36 08:00 Temp 36.7 Pulse 66 66 Resp 18 B/P (MAP) 171/72 (105) Pulse Ox 95 96 O2 Delivery Room Air Room Air Room Air 10/01/19 10/01/19 10/01/19 08:07 11:54 13:00 Temp 36.8 36.8 Pulse 68 60 62 Resp 20 18 B/P (MAP) 175/73 (107) 129/60 (83) Pulse Ox 94 96 O2 Delivery Room Air Room Air 10/01/19 00:00 Intake Total 1020 ml Balance 1020 ml Weight (Pounds): 177 Weight (Ounces): 9.6 Weight (Calculated Kilograms): 80.878732 Constitutional: AAO x 3, well-developed, well-nourished Respiratory: chest is bilaterally symmetric, rhonchi Cardiovascular: regular rate-rhythm, S1 and S2 Gastrointestional: soft, audible bowel sounds Extremities: normal range of motion, non-tender, normal inspection, no lower extremity edema bilateral Neurologic/Psychiatric: no motor/sensory deficits, alert, normal mood/affect, oriented x 3 Skin: normal color Results/Procedures: Labs Laboratory Tests 09/30/19 15:23: Glucometer 156H 09/30/19 20:39: Glucometer 204H 10/01/19 05:05: Sodium Level 139, Potassium Level 4.0, Chloride Level 108H, Carbon Dioxide Level 22, Anion Gap 9, Blood Urea Nitrogen 20H, Creatinine 1.06, Estimat Glomerular Filtration Rate > 60, BUN/Creatinine Ratio 19, Glucose Level 127H, Calcium Level 8.6, Corrected Calcium 9.8, Total Bilirubin 0.6, Aspartate Amino Transf (AST/SGOT) 33, Alanine Aminotransferase (ALT/SGPT) 8, Alkaline Phosphatase 105, Total Protein 5.4L, Albumin 2.5L 10/01/19 05:08: White Blood Count 6.9, Red Blood Count 2.69L, Hemoglobin 8.3L, Hematocrit 26L, Mean Corpuscular Volume 98, Mean Corpuscular Hemoglobin 31, Mean Corpuscular Hemoglobin Concent 32, Red Cell Distribution Width 14.7H, Platelet Count 256, Mean Platelet Volume 10.7H, Neutrophils (%) (Auto) 59, Lymphocytes (%) (Auto) 26, Monocytes (%) (Auto) 10, Eosinophils (%) (Auto) 5, Basophils (%) (Auto) 0, Neutrophils # (Auto) 4.1, Lymphocytes # (Auto) 1.8, Monocytes # (Auto) 0.7, Eosinophils # (Auto) 0.4H, Basophils # (Auto) 0.0 10/01/19 10:11: Glucometer 201H A/P: Assessment/Dx: Pneumonia Syncope Coronary artery disease Peripheral arterial disease Plan: Assessment/Plan Pneumonia, some improvement on chest x-ray, still receiving antibiotic, continue to monitor Generalized weakness, severe orthostatic hypotension, labile blood pressure, currently off all blood pressure medication. 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 Anjum Hallman, recommendation is to continue with conservative management, plan to repeat ultrasound on thursday10/03/2019. Severe Peripheral vascular disease, had nonhealing wound right lower extremity, underwent peripheral angiogram on August 17, 2019 revealing total occlusion of right SFA, successful angioplasty then deployment of 2 Supera stent 6150 and 6x100 with excellent results and flow. Severe disease at the distal posterior tibial artery proximal anterior tibial artery. Heavily calcified left SFA with multiple segments of moderate to severe disease with occluded anterior tibial artery. Patient is maintained on Plavix and aspirin. Wound to right lower extremity is healing. Patient has known severe disease on the left side, we will continue with conservative management unless patient becomes symptomatic due to his comorbidities. Currently not having any symptoms, does not have any ulceration to left lower extremity. Continue to monitor Sick sinus syndrome, history of episodes of bradycardia with complete heart block, frequent PVCs, ventricular bigeminy and ventricular couplets, short PAT's. 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 Continue to monitor Nonsustained ventricular tachycardia, No recent arrhythmia on pacemaker interrogation, continue to monitor. Paroxysmal atrial fibrillation, currently off amiodarone, continue to monitor on telemetry [id number] score of 6, high risk, yearly risk of stroke without OAC is 9.8%. Maintained on Xarelto, continue to monitor Coronary artery disease, multiple interventions in the past, most recent cardiac catheterization done March 14, 2015 revealed extensive coronary artery disease, heavily calcified system, with 40 percent distal left main coronary artery stenosis. 3 stents in LAD proximally with 50-60 percent in-stent restenosis. Distal LAD had 95 percent stenosis followed by 80 percent stenosis long segment, very small artery not amendable to intervention. Total occlusion of the first obtuse marginal branch filled by collaterals. Patent stent in the proximal mid second OM branch with moderate disease in the distal proper circumflex artery. Patent stent in the RCA with 50 percent proximal right coronary artery stenosis and 50-60 distal right coronary artery stenosis. Asymptomatic, continue to monitor Stress test in July 2016 showed fixed defect involving the whole inferior wall and inferoapical segment with dilated left ventricle, inferior wall hypokinesia, Ejection fraction 54 percent. Echocardiogram showed ejection fraction 60 percent, dilated left atrium, mild to moderate mitral regurgitation and pulmonary artery pressure of 35 mmHg. continue to monitor, Hyperlipidemia, maintained on Crestor, continue to monitor lipids. History of CVA in 2010, mild residual right sided weakness, episodes of confusion occurred over the last year where patient became confused and drove over once to [place] and once to [place]. It was felt that it was a global ischemic attack with confusion, workup at that time was negative. He was seen by Dr. Jiménez and started on Dilantin, the dose was increased by Dr. Damon, followed and managed by primary care physician Congestive heart failure, EF 45-50 percent, as well as diastolic dysfunction per most recent 2-D echocardiogram done 2018, continue with current medication Diabetes mellitus, followed and managed by primary care physician Carotid stenosis, monitored by Dr. Simmons's office Dementia, managed by primary care physician. Ex-Tobaccoism, patient smokes pipe, he stopped smoking in October, encouraged to continue with smoking cessation Peripheral neuropathy, maintained on gabapentin. Continue on current medication, continue to monitor Sleep apnea, severe on sleep study in October 2015, does not use his machine. Thank you for your consultation. Please call me if you have any questions. Fatimah San MD, FACP, FACC, FSCAI, FHRS, CCDS Interventional Cardiology Cardiac Electrophysiology Vascular Medicine and Endovascular Interventions Gisela SAN MD Sep 30, 2019 10:05
--- NOTE | 2019-09-30 10:28 | Pulmonary Progress Note ---
Sepsis Event Evaluation Height, Weight, BMI Height: 6'0.00" Weight: 177lbs. 9.6oz. 80.166800ib; 22.53 BMI Method:Stated Exam Exam Vital Signs Date Time Temp Pulse Resp B/P (MAP) Pulse Ox O2 Delivery O2 Flow Rate FiO2 09/30/19 08:38 92 Room Air 09/30/19 07:00 77 09/30/19 04:00 36.4 65 18 133/60 (84) 96 Room Air 09/30/19 01:00 48 09/30/19 00:09 36.6 69 20 157/73 (101) 94 Room Air 09/29/19 20:00 99 Room Air 09/29/19 20:00 36.3 63 18 147/67 (93) 99 Room Air 09/29/19 19:39 92 Room Air 09/29/19 19:00 65 09/29/19 16:00 36.4 71 18 167/70 (102) 95 Room Air 09/29/19 15:42 92 Room Air 09/29/19 12:18 69 09/29/19 11:18 37.0 65 18 140/65 (90) 93 Room Air I & O 09/30/19 07:00 Intake Total 1490 ml Balance 1490 ml Height & Weight Height: 6'0.00" Weight: 177lbs. 9.6oz. 80.988239gm; 22.53 BMI Method:Stated General Appearance: No Apparent Distress, WD/WN HEENT: Normal ENT Inspection Neck: Full Range of Motion Respiratory: Lungs Clear, No Accessory Muscle Use, No Respiratory Distress Cardiovascular: Regular Rate, Rhythm, No Murmur Gastrointestinal: soft Neurologic/Psychiatric: Alert Skin: Normal Color Results Lab Laboratory Tests 09/29/19 05:00 09/29/19 05:50 Assessment/Plan Assessment/Plan RLL infiltrate r/o PNA -- no leukocytosis or fever - Zosyn, started 09/27 -echo Anemia -Monitor -Hgb: 9.0 Hct: 27 on 09/29 ELIEL YANES DO Sep 30, 2019 10:27
--- NOTE | 2019-09-30 13:04 | Progress Note ---
Subjective Time Seen by a Provider: 13:02 Subjective/Events-last exam Patient continues to improve. Patient will be ready for discharge on Thursday. Objective Exam Vital Signs Date Time Temp Pulse Resp B/P (MAP) Pulse Ox O2 Delivery O2 Flow Rate FiO2 09/30/19 12:19 65 09/30/19 12:00 36.3 57 18 125/63 (83) 94 Room Air 09/30/19 08:38 92 Room Air 09/30/19 08:00 36.6 68 18 151/66 (94) 97 Room Air 09/30/19 07:00 77 09/30/19 04:00 36.4 65 18 133/60 (84) 96 Room Air 09/30/19 01:00 48 09/30/19 00:09 36.6 69 20 157/73 (101) 94 Room Air 09/29/19 20:00 99 Room Air 09/29/19 20:00 36.3 63 18 147/67 (93) 99 Room Air 09/29/19 19:39 92 Room Air 09/29/19 19:00 65 09/29/19 16:00 36.4 71 18 167/70 (102) 95 Room Air 09/29/19 15:42 92 Room Air I & O 09/30/19 07:00 Intake Total 1490 ml Balance 1490 ml Capillary Refill : Less Than 3 Seconds General Appearance: No Apparent Distress, WD/WN HEENT: Normal ENT Inspection Neck: Full Range of Motion, Normal Inspection Respiratory: No Accessory Muscle Use, No Respiratory Distress Cardiovascular: Regular Rate, Rhythm, No Murmur Gastrointestinal: non tender, soft Results Lab Laboratory Tests 09/29/19 16:21: Glucometer 251H 09/29/19 20:56: Glucometer 238H 09/30/19 04:51: Glucometer 100 09/30/19 10:59: Glucometer 258H 09/30/19 12:25: Glucometer 259H Assessment/Plan Assessment/Plan Assess & Plan/Chief Complaint Pneumonia. Right rib fractures. Diabetes. Peripheral artery disease. Dementia. Weakness. Orthostatic hypotension history. Hypertension. . 09/30/19. Pneumonia. Right rib fractures. Diabetes. Peripheral artery disease. Dementia. Weakness. Orthostatic hypotension history. Hypertension. Plan to discharge Thursday Clinical Quality Measures Admission Status Admission Dx Pneumonia. Peripheral artery disease. Diabetes. Dementia. Orthostatic hypotension. Weakness DVT/VTE Risk/Contraindication: Risk Factor Score Per Nursin RFS Level Per Nursing on Admit: 4+=Very High DENIZ KENT DO Sep 30, 2019 13:04
[2019-09-30] MEDS: NS IV 1000 ML 1,000 ML IV SCH (18:31)
[2019-09-30] MEDS: RIVAROXABAN 20 MG TABLET (XARELTO) PO SCH (19:04)
[2019-09-30] MEDS: TAMSULOSIN 0.4 MG (FLOMAX) CAP PO SCH (19:04)
[2019-09-30] MEDS: ASPIRIN E.C. 81 MG (ECOTRIN) TAB PO SCH (21:33)
[2019-10-01] MEDS: PIPERACILLIN/TAZOBACTAM (BULK) 4.5 GM in NS (IVPB) 100 ML IV SCH ×4 (00:18→23:48)
[2019-10-01 04:00] VITALS: BP 171/72
[2019-10-01 05:47] LABS: BASOPHILS % (AUTO) 0 % (0-10); EOSINOPHILS # (AUTO) 0.4 10^3/uL (0.0-0.3); EOSINOPHILS % (AUTO) 5 % (0-10); HEMATOCRIT 26 % (40-54); HEMOGLOBIN 8.3 G/DL (13.3-17.7); LYMPHOCYTES # (AUTO) 1.8 X 10^3 (1.0-4.0); LYMPHOCYTES % (AUTO) 26 % (12-44); MEAN CORPUSCULAR HEMOGLOBIN 31 PG (25-34); MEAN CORPUSCULAR HGB CONC 32 G/DL (32-36); MEAN CORPUSCULAR VOLUME 98 FL (80-99); MEAN PLATELET VOLUME 10.7 FL (7.4-10.4); MONOCYTES # (AUTO) 0.7 X 10^3 (0.0-1.0); MONOCYTES % (AUTO) 10 % (0-12); NEUTROPHILS # (AUTO) 4.1 X 10^3 (1.8-7.8); NEUTROPHILS % (AUTO) 59 % (42-75); PLATELET COUNT 256 10^3/uL (130-400); RED CELL DISTRIBUTION WIDTH 14.7 % (10.0-14.5); WHITE BLOOD COUNT 6.9 10^3/uL (4.3-11.0)
[2019-10-01 06:05] LABS: ALANINE AMINOTRANSFERASE 8 U/L (0-55); ALBUMIN 2.5 GM/DL (3.2-4.5); ALKALINE PHOSPHATASE 105 U/L (40-136); BILIRUBIN,TOTAL 0.6 MG/DL (0.1-1.0); BUN/CREATININE RATIO 19; CALCIUM 8.6 MG/DL (8.5-10.1); CARBON DIOXIDE 22 MMOL/L (21-32); CHLORIDE 108 MMOL/L (98-107); CREATININE SERUM 1.06 MG/DL (0.60-1.30); GFR ESTIMATED > 60; GLUCOSE 127 MG/DL (70-105); SODIUM 139 MMOL/L (135-145); TOTAL PROTEIN 5.4 GM/DL (6.4-8.2)
[2019-10-01] MEDS: inSUlin ASPART (NovoLOG) 1 UNIT/0.01 ML (CHARGE PER UNIT) SC SCH ×4 (06:33→21:23)
--- NOTE | 2019-10-01 07:15 | Diagnostic Imaging Report ---
CHEST 1 VIEW, AP/PA ONLY Indication: Pneumonia Comparison: 09/29/2019 Findings: Improving but persistent right basilar consolidation. Small right pleural effusion is unchanged. Displaced right-sided rib fractures are more conspicuous on today's examination. Stable cardiomegaly. No pneumothorax. Impression: 1. More conspicuous displaced right lateral rib fractures. 2. Right basilar consolidations have improved but persist. Dictated by: Dictated on workstation # [id number]
[2019-10-01] MEDS: RT-ALBUTEROL SULF 2.5 MG/3 ML PRE-MIX VIAL INH SCH ×3 (07:36→18:26)
[2019-10-01] MEDS: BETHANECHOL 25 MG (URECHOLINE) TAB PO SCH ×4 (07:50→21:23)
[2019-10-01] MEDS: CATHETER FLUSH 10 ML SYR IV SCH ×3 (07:51→21:23)
[2019-10-01 08:07] VITALS: BP 175/73
[2019-10-01] MEDS: POLYETHYLENE GLYCOL 17 GM (MIRALAX) PACK PO SCH ×2 (09:32→21:23)
[2019-10-01] MEDS: SENNA W/DOCUSATE (SENOKOT S) TABLET PO SCH ×2 (09:33→21:22)
[2019-10-01] MEDS: SINEMET CR 50/200 (CARBIDOPA/LEVODOPA SA) TAB PO SCH ×3 (09:33→21:22)
[2019-10-01] MEDS: CLOPIDOGREL 75 MG (PLAVIX) TABLET PO SCH (09:34)
[2019-10-01] MEDS: PANTOPRAZOLE 40 MG (PROTONIX) TAB PO SCH (09:34)
[2019-10-01] MEDS: DOCUSATE SODIUM 100 MG (COLACE) CAP PO SCH ×2 (09:34→21:22)
[2019-10-01 11:54] VITALS: BP 129/60
--- NOTE | 2019-10-01 14:52 | Cardiology Progress Note ---
Cardiology SOAP Progress Note Subjective: No cardiac complaints. Objective: I&O/Vital Signs 10/01/19 10/01/19 10/01/19 10/01/19 04:00 07:00 07:36 08:00 Temp 36.7 Pulse 66 66 Resp 18 B/P (MAP) 171/72 (105) Pulse Ox 95 96 O2 Delivery Room Air Room Air Room Air 10/01/19 10/01/19 10/01/19 08:07 11:54 13:00 Temp 36.8 36.8 Pulse 68 60 62 Resp 20 18 B/P (MAP) 175/73 (107) 129/60 (83) Pulse Ox 94 96 O2 Delivery Room Air Room Air 10/01/19 00:00 Intake Total 1020 ml Balance 1020 ml Weight (Pounds): 177 Weight (Ounces): 9.6 Weight (Calculated Kilograms): 80.658310 Constitutional: AAO x 3, well-developed, well-nourished Respiratory: chest is bilaterally symmetric, rhonchi Cardiovascular: regular rate-rhythm, S1 and S2 Gastrointestional: soft, audible bowel sounds Extremities: normal range of motion, non-tender, normal inspection, no lower extremity edema bilateral Neurologic/Psychiatric: no motor/sensory deficits, alert, normal mood/affect, oriented x 3 Skin: normal color Results/Procedures: Labs Laboratory Tests 09/30/19 15:23: Glucometer 156H 09/30/19 20:39: Glucometer 204H 10/01/19 05:05: Sodium Level 139, Potassium Level 4.0, Chloride Level 108H, Carbon Dioxide Level 22, Anion Gap 9, Blood Urea Nitrogen 20H, Creatinine 1.06, Estimat Glomerular Filtration Rate > 60, BUN/Creatinine Ratio 19, Glucose Level 127H, Calcium Level 8.6, Corrected Calcium 9.8, Total Bilirubin 0.6, Aspartate Amino Transf (AST/SGOT) 33, Alanine Aminotransferase (ALT/SGPT) 8, Alkaline Phosphatase 105, Total Protein 5.4L, Albumin 2.5L 10/01/19 05:08: White Blood Count 6.9, Red Blood Count 2.69L, Hemoglobin 8.3L, Hematocrit 26L, Mean Corpuscular Volume 98, Mean Corpuscular Hemoglobin 31, Mean Corpuscular Hemoglobin Concent 32, Red Cell Distribution Width 14.7H, Platelet Count 256, Mean Platelet Volume 10.7H, Neutrophils (%) (Auto) 59, Lymphocytes (%) (Auto) 26, Monocytes (%) (Auto) 10, Eosinophils (%) (Auto) 5, Basophils (%) (Auto) 0, Neutrophils # (Auto) 4.1, Lymphocytes # (Auto) 1.8, Monocytes # (Auto) 0.7, Eosinophils # (Auto) 0.4H, Basophils # (Auto) 0.0 10/01/19 10:11: Glucometer 201H A/P: Assessment/Dx: Pneumonia Syncope Coronary artery disease Peripheral arterial disease Plan: Assessment/Plan Pneumonia, some improvement on chest x-ray, still receiving antibiotic, continue to monitor Generalized weakness, severe orthostatic hypotension, labile blood pressure, currently off all blood pressure medication. 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 Severe Peripheral vascular disease, had nonhealing wound right lower extremity, underwent peripheral angiogram on August 17, 2019 revealing total occlusion of right SFA, successful angioplasty then deployment of 2 Supera stent 6150 and 6x100 with excellent results and flow. Severe disease at the distal posterior tibial artery proximal anterior tibial artery. Heavily calcified left SFA with multiple segments of moderate to severe disease with occluded anterior tibial artery. Patient is maintained on Plavix and aspirin. Wound to right lower extremity is healing. Patient has known severe disease on the left side, we will continue with conservative management unless patient becomes symptomatic due to his comorbidities. Currently not having any symptoms, does not have any ulceration to left lower extremity. Continue to monitor Sick sinus syndrome, history of episodes of bradycardia with complete heart block, frequent PVCs, ventricular bigeminy and ventricular couplets, short PAT's. 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 Continue to monitor Nonsustained ventricular tachycardia, No recent arrhythmia on pacemaker interrogation, continue to monitor. Paroxysmal atrial fibrillation, currently off amiodarone, continue to monitor on telemetry [id number] score of 6, high risk, yearly risk of stroke without OAC is 9.8%. Maintained on Xarelto, continue to monitor Coronary artery disease, multiple interventions in the past, most recent cardiac catheterization done March 14, 2015 revealed extensive coronary artery disease, heavily calcified system, with 40 percent distal left main coronary artery stenosis. 3 stents in LAD proximally with 50-60 percent in-stent restenosis. Distal LAD had 95 percent stenosis followed by 80 percent stenosis long segment, very small artery not amendable to intervention. Total occlusion of the first obtuse marginal branch filled by collaterals. Patent stent in the proximal mid second OM branch with moderate disease in the distal proper circumflex artery. Patent stent in the RCA with 50 percent proximal right coronary artery stenosis and 50-60 distal right coronary artery stenosis. Asymptomatic, continue to monitor Stress test in July 2016 showed fixed defect involving the whole inferior wall and inferoapical segment with dilated left ventricle, inferior wall hypokinesia, Ejection fraction 54 percent. Echocardiogram showed ejection fraction 60 percent, dilated left atrium, mild to moderate mitral regurgitation and pulmonary artery pressure of 35 mmHg. continue to monitor, Hyperlipidemia, maintained on Crestor, continue to monitor lipids. History of CVA in 2010, mild residual right sided weakness, episodes of confusion occurred over the last year where patient became confused and drove over once to [place] and once to [place]. It was felt that it was a global ischemic attack with confusion, workup at that time was negative. He was seen by Dr. Jiménez and started on Dilantin, the dose was increased by Dr. Damon, followed and managed by primary care physician Congestive heart failure, EF 45-50 percent, as well as diastolic dysfunction per most recent 2-D echocardiogram done 2018, continue with current medication Diabetes mellitus, followed and managed by primary care physician Carotid stenosis, monitored by Dr. Simmons's office Dementia, managed by primary care physician. Ex-Tobaccoism, patient smokes pipe, he stopped smoking in October, encouraged to continue with smoking cessation Peripheral neuropathy, maintained on gabapentin. Continue on current medication, continue to monitor Sleep apnea, severe on sleep study in October 2015, does not use his machine. Thank you for your consultation. Please call me if you have any questions. Fatimah San MD, FACP, FACC, FSCAI, FHRS, CCDS Interventional Cardiology Cardiac Electrophysiology Vascular Medicine and Endovascular Interventions Gisela SAN MD Oct 01, 2019 14:52
[2019-10-01] MEDS: RIVAROXABAN 20 MG TABLET (XARELTO) PO SCH (15:27)
[2019-10-01 15:59] VITALS: BP 175/72
--- NOTE | 2019-10-01 16:26 | Progress Note - Hospitalist ---
Subjective HPI/CC On Admission Date Seen by Provider: Oct 01, 2019 Time Seen by Provider: 16:20 Subjective/Events-last exam Pneumonia- continue on Zosyn Right rib fractures- no acute management need Diabetes- Continue Insulin Peripheral artery disease- Xarelto Parkinson's Dementia- continue sinemet Weakness- PT/OT Hypertension- continue current meds pAF- Continue Xarelto Likely to DC Thursday Objective Exam Vital Signs Vital Signs Date Time Temp Pulse Resp B/P (MAP) Pulse Ox O2 Delivery O2 Flow Rate FiO2 10/01/19 15:59 36.6 70 20 175/72 (106) 95 Room Air Capillary Refill : Less Than 3 Seconds General Appearance: No Apparent Distress, Chronically ill Respiratory: Lungs Clear, No Respiratory Distress Cardiovascular: Regular Rate, Rhythm, No Murmur Results/Procedures Lab Laboratory Tests 10/01/19 05:05 10/01/19 05:08 Patient resulted labs reviewed. Clinical Quality Measures DVT/VTE Risk/Contraindication: Risk Factor Score Per Nursin RFS Level Per Nursing on Admit: 4+=Very High ADOLFO WILLSON MD Oct 01, 2019 4:26 pm
[2019-10-01] MEDS: TAMSULOSIN 0.4 MG (FLOMAX) CAP PO SCH (19:28)
[2019-10-01 19:41] VITALS: BP 157/68
[2019-10-01] MEDS: ASPIRIN E.C. 81 MG (ECOTRIN) TAB PO SCH (21:22)
[2019-10-01 23:41] VITALS: BP 176/80
[2019-10-02] VITALS (7 sets, daily range): BP systolic 158–197; BP diastolic 60–90
[2019-10-02] MEDS: inSUlin ASPART (NovoLOG) 1 UNIT/0.01 ML (CHARGE PER UNIT) SC SCH ×4 (06:53→22:36)
[2019-10-02] MEDS: BETHANECHOL 25 MG (URECHOLINE) TAB PO SCH ×4 (06:58→22:36)
[2019-10-02] MEDS: PIPERACILLIN/TAZOBACTAM (BULK) 4.5 GM in NS (IVPB) 100 ML IV SCH ×2 (06:58→14:56)
[2019-10-02] MEDS: CATHETER FLUSH 10 ML SYR IV SCH ×3 (06:58→22:37)
[2019-10-02] MEDS: RT-ALBUTEROL SULF 2.5 MG/3 ML PRE-MIX VIAL INH SCH ×3 (08:23→19:46)
[2019-10-02] MEDS: DOCUSATE SODIUM 100 MG (COLACE) CAP PO SCH ×2 (09:18→22:36)
[2019-10-02] MEDS: SENNA W/DOCUSATE (SENOKOT S) TABLET PO SCH ×2 (09:18→22:36)
[2019-10-02] MEDS: SINEMET CR 50/200 (CARBIDOPA/LEVODOPA SA) TAB PO SCH ×3 (09:18→22:36)
[2019-10-02] MEDS: PANTOPRAZOLE 40 MG (PROTONIX) TAB PO SCH (09:18)
[2019-10-02] MEDS: CLOPIDOGREL 75 MG (PLAVIX) TABLET PO SCH (09:18)
[2019-10-02] MEDS: POLYETHYLENE GLYCOL 17 GM (MIRALAX) PACK PO SCH ×2 (09:19→22:40)
--- NOTE | 2019-10-02 10:52 | Cardiology Progress Note ---
Cardiology SOAP Progress Note Subjective: No cardiac complaints. Objective: I&O/Vital Signs 10/01/19 10/02/19 10/02/19 10/02/19 23:41 01:00 04:15 05:40 Temp 37.0 36.6 Pulse 69 65 69 Resp 18 18 B/P (MAP) 176/80 (112) 191/90 (123) 168/60 (96) Pulse Ox 95 95 O2 Delivery Room Air Room Air 10/02/19 10/02/19 10/02/19 07:00 08:00 08:45 Temp 36.6 Pulse 60 63 Resp 18 B/P (MAP) 180/79 (112) Pulse Ox 97 O2 Delivery Room Air Room Air 10/02/19 00:00 Intake Total 1020 ml Balance 1020 ml Weight (Pounds): 177 Weight (Ounces): 9.6 Weight (Calculated Kilograms): 80.874447 Constitutional: AAO x 3, well-developed, well-nourished Respiratory: chest is bilaterally symmetric, rhonchi Cardiovascular: regular rate-rhythm, S1 and S2 Gastrointestional: soft, audible bowel sounds Extremities: normal range of motion, non-tender, normal inspection, no lower extremity edema bilateral Neurologic/Psychiatric: no motor/sensory deficits, alert, normal mood/affect, oriented x 3 Skin: normal color Results/Procedures: Labs Laboratory Tests 10/01/19 16:10: Glucometer 177H 10/01/19 20:02: Glucometer 194H 10/02/19 05:37: Glucometer 133H A/P: Assessment/Dx: Pneumonia Syncope Coronary artery disease Peripheral arterial disease Plan: Assessment/Plan Pneumonia, some improvement on chest x-ray, still receiving antibiotic, continue to monitor Generalized weakness, severe orthostatic hypotension, labile blood pressure, currently off all blood pressure medication. Continue to monitor Pleural effusion, continue to monitor Small Left groin pseudoaneurysm at left SLOT TAG INSERTER, Dr. Karimi discussed with Dr. Anjum Hallman, recommendation is to continue with conservative management, plan to repeat ultrasound on thursday10/03/2019. Severe Peripheral vascular disease, had nonhealing wound right lower extremity, underwent peripheral angiogram on August 17, 2019 revealing total occlusion of right SFA, successful angioplasty then deployment of 2 Supera stent 6150 and 6x100 with excellent results and flow. Severe disease at the distal posterior tibial artery proximal anterior tibial artery. Heavily calcified left SFA with multiple segments of moderate to severe disease with occluded anterior tibial artery. Patient is maintained on Plavix and aspirin. Wound to right lower extremity is healing. Patient has known severe disease on the left side, we will continue with conservative management unless patient becomes symptomatic due to his comorbidities. Currently not having any symptoms, does not have any ulceration to left lower extremity. Continue to monitor Sick sinus syndrome, history of episodes of bradycardia with complete heart block, frequent PVCs, ventricular bigeminy and ventricular couplets, short PAT's. Status post permanent pacemaker implantation April 2015, using a [place] device [employer] DR GONZALEZ, last interrogation was done in June 2019 showing good sensing and capture activity, longevity for the battery is 4 years, no arrhythmia was detected. Continue to monitor Nonsustained ventricular tachycardia, No recent arrhythmia on pacemaker interrogation, continue to monitor. Paroxysmal atrial fibrillation, currently off amiodarone, continue to monitor on telemetry [id number] score of 6, high risk, yearly risk of stroke without OAC is 9.8%. Maintained on Xarelto, continue to monitor Coronary artery disease, multiple interventions in the past, most recent cardiac catheterization done March 14, 2015 revealed extensive coronary artery disease, heavily calcified system, with 40 percent distal left main coronary artery stenosis. 3 stents in LAD proximally with 50-60 percent in-stent restenosis. Distal LAD had 95 percent stenosis followed by 80 percent stenosis long segment, very small artery not amendable to intervention. Total occlusion of the first obtuse marginal branch filled by collaterals. Patent stent in the proximal mid second OM branch with moderate disease in the distal proper circumflex artery. Patent stent in the RCA with 50 percent proximal right coronary artery stenosis and 50-60 distal right coronary artery stenosis. Asymptomatic, continue to monitor Stress test in July 2016 showed fixed defect involving the whole inferior wal l and inferoapical segment with dilated left ventricle, inferior wall hypokinesia, Ejection fraction 54 percent. Echocardiogram showed ejection fraction 60 percent, dilated left atrium, mild to moderate mitral regurgitation and pulmonary artery pressure of 35 mmHg. continue to monitor, Hyperlipidemia, maintained on Crestor, continue to monitor lipids. History of CVA in 2010, mild residual right sided weakness, episodes of confusion occurred over the last year where patient became confused and drove over once to [place] and once to [place]. It was felt that it was a global ischemic attack with confusion, workup at that time was negative. He was seen by Dr. Jiménez and started on Dilantin, the dose was increased by Dr. Damon, followed and managed by primary care physician Congestive heart failure, EF 45-50 percent, as well as diastolic dysfunction per most recent 2-D echocardiogram done 2018, continue with current medication Diabetes mellitus, followed and managed by primary care physician Carotid stenosis, monitored by Dr. Simmons's office Dementia, managed by primary care physician. Ex-Tobaccoism, patient smokes pipe, he stopped smoking in October, encouraged to continue with smoking cessation Peripheral neuropathy, maintained on gabapentin. Continue on current medication, continue to monitor Sleep apnea, severe on sleep study in October 2015, does not use his machine. Thank you for your consultation. Please call me if you have any questions. Fatimah San MD, FACP, FACC, FSCAI, FHRS, CCDS Interventional Cardiology Cardiac Electrophysiology Vascular Medicine and Endovascular Interventions Gisela SAN MD Oct 02, 2019 10:52
--- NOTE | 2019-10-02 11:20 | Progress Note - Hospitalist ---
Subjective HPI/CC On Admission Date Seen by Provider: Oct 02, 2019 Time Seen by Provider: 11:19 Subjective/Events-last exam Pt reports doing well. No complaints. BP high. Objective Exam Vital Signs Vital Signs Date Time Temp Pulse Resp B/P (MAP) Pulse Ox O2 Delivery O2 Flow Rate FiO2 10/02/19 08:45 Room Air 10/02/19 08:00 36.6 63 18 180/79 (112) 97 Capillary Refill : Less Than 3 Seconds General Appearance: No Apparent Distress, Chronically ill Respiratory: Lungs Clear, No Respiratory Distress Cardiovascular: Regular Rate, Rhythm, No Murmur Results/Procedures Lab Patient resulted labs reviewed. Assessment/Plan Assessment and Plan Assess & Plan/Chief Complaint Pneumonia- continue on Zosyn Right rib fractures- no acute management need Diabetes- Continue Insulin Peripheral artery disease- Xarelto Parkinson's Dementia- continue sinemet Weakness- PT/OT Hypertension- resume metoprolol from home due to elevated BP pAF- Continue Xarelto Likely to DC Thursday Clinical Quality Measures DVT/VTE Risk/Contraindication: Risk Factor Score Per Nursin RFS Level Per Nursing on Admit: 4+=Very High ADOLFO WILLSON MD Oct 02, 2019 11:20 am
[2019-10-02] MEDS: RIVAROXABAN 20 MG TABLET (XARELTO) PO SCH (17:04)
[2019-10-02] MEDS: TAMSULOSIN 0.4 MG (FLOMAX) CAP PO SCH (18:18)
[2019-10-02] MEDS: ASPIRIN E.C. 81 MG (ECOTRIN) TAB PO SCH (22:36)
--- NOTE | 2019-10-03 00:30 | NUR ---
PT B/P 197/80 AUTOMATICALLY, AND 180/[address] WILLSON NOTIFIED. NO NEW ORDERS. WILL CONTINUE TO MONITOR
[2019-10-03 04:04] VITALS: BP 157/66
[2019-10-03] MEDS: inSUlin ASPART (NovoLOG) 1 UNIT/0.01 ML (CHARGE PER UNIT) SC SCH ×4 (06:18→21:07)
[2019-10-03] MEDS: BETHANECHOL 25 MG (URECHOLINE) TAB PO SCH ×4 (06:21→21:34)
[2019-10-03] MEDS: CATHETER FLUSH 10 ML SYR IV SCH ×3 (06:22→21:35)
--- NOTE | 2019-10-03 07:48 | Progress Note ---
Subjective Time Seen by a Provider: 07:46 Subjective/Events-last exam Patient alert this morning. Plan to discharge today. Patient hypertensive and put on amlodipine. Patient to get another day of physical therapy and occupational therapy Objective Exam Vital Signs Date Time Temp Pulse Resp B/P (MAP) Pulse Ox O2 Delivery O2 Flow Rate FiO2 10/03/19 04:04 36.5 60 18 157/66 (96) 95 Room Air 10/03/19 01:00 51 10/02/19 23:42 36.7 61 18 197/80 (119) 94 Room Air 10/02/19 20:30 36.4 54 20 158/60 (92) 96 Room Air 10/02/19 20:00 Room Air 10/02/19 19:48 95 Room Air 10/02/19 19:00 60 10/02/19 16:09 36.3 56 20 165/73 (103) 97 Room Air 10/02/19 14:05 92 Room Air 10/02/19 13:00 61 10/02/19 12:00 36.6 68 18 170/80 (110) 97 Room Air 10/02/19 08:45 Room Air 10/02/19 08:00 36.6 63 18 180/79 (112) 97 Room Air I & O 10/03/19 07:00 Intake Total 1280 ml Balance 1280 ml Capillary Refill : Less Than 3 Seconds General Appearance: No Apparent Distress, WD/WN HEENT: Normal ENT Inspection Neck: Full Range of Motion, Normal Inspection Respiratory: Lungs Clear, No Accessory Muscle Use, No Respiratory Distress Cardiovascular: Regular Rate, Rhythm, No Murmur Gastrointestinal: non tender, soft Results Lab Laboratory Tests 10/02/19 11:16: Glucometer 159H 10/02/19 15:37: Glucometer 174H 10/02/19 20:32: Glucometer 204H 10/03/19 06:16: Glucometer 84 Assessment/Plan Assessment/Plan Assess & Plan/Chief Complaint Pneumonia. Right rib fractures. Diabetes. Peripheral artery disease. Dementia. Weakness. Orthostatic hypotension history. Hypertension. . 09/30/19. Pneumonia. Right rib fractures. Diabetes. Peripheral artery disease. Dementia. Weakness. Orthostatic hypotension history. Hypertension. Plan to discharge Thursday. . 10/03/19. Pneumonia. Right rib fractures. Diabetes. Peripheral artery disease. Pseudoaneurysm of left femoral. Dementia. Parkinson disease. Hypertension Clinical Quality Measures Admission Status Admission Dx Pneumonia. Peripheral artery disease. Diabetes. Dementia. Orthostatic hypotension. Weakness DVT/VTE Risk/Contraindication: Risk Factor Score Per Nursin RFS Level Per Nursing on Admit: 4+=Very High DENIZ KENT DO Oct 03, 2019 07:48
[2019-10-03 08:00] VITALS: BP 169/95
[2019-10-03] MEDS: RT-ALBUTEROL SULF 2.5 MG/3 ML PRE-MIX VIAL INH SCH ×3 (08:49→20:58)
[2019-10-03] MEDS: DOCUSATE SODIUM 100 MG (COLACE) CAP PO SCH ×2 (09:10→21:29)
[2019-10-03] MEDS: SENNA W/DOCUSATE (SENOKOT S) TABLET PO SCH ×2 (09:10→21:33)
[2019-10-03] MEDS: POLYETHYLENE GLYCOL 17 GM (MIRALAX) PACK PO SCH ×2 (09:10→21:29)
[2019-10-03] MEDS: PANTOPRAZOLE 40 MG (PROTONIX) TAB PO SCH (09:10)
[2019-10-03] MEDS: SINEMET CR 50/200 (CARBIDOPA/LEVODOPA SA) TAB PO SCH ×3 (09:10→21:28)
[2019-10-03] MEDS: CLOPIDOGREL 75 MG (PLAVIX) TABLET PO SCH (09:10)
[2019-10-03] MEDS: amLODIPine 5 MG (NORVASC) TAB PO SCH (09:11)
--- NOTE | 2019-10-03 09:11 | Diagnostic Imaging Report ---
INDICATION: Left common femoral artery pseudoaneurysm, follow-up. COMPARISON: Correlation is made with prior exam from 09/19/2019. FINDINGS: Left coronal arterial Doppler study was performed with color flow Doppler waveform analysis. Left groin pseudoaneurysm arising anteriorly from the left common femoral artery is again noted. This measures 2.1 x 0.9 x 1.6 cm compared with 1.7 x 1.0 cm. IMPRESSION: Persistent left groin pseudoaneurysm, similar to perhaps slightly larger than when compared with prior exam. Dictated by: Dictated on workstation # [id number]
--- NOTE | 2019-10-03 09:35 | Physical Therapy Daily Note ---
PT Daily Note-Current Subjective Patient is in bed and agrees to PT. Mental Status Patient Orientation: Confused Transfers SCALE: Activities may be completed with or without assistive devices. 1-Llsshguybw-zezuhdl completes the activity by him/herself with no assistance from a helper. 5-Set-up or Clean-up Assistance-helper sets up or cleans up; patient completes activity. [place] assists only prior to or following the activity. 4-Supervision or Touching Assistance-helper provides verbal cues and/or touching/steadying and/or contact guard assistance as patient completes activity. Assistance may be provided throughout the activity or intermittently. 3-Partial/Moderate Assistance-helper does LESS THAN HALF the effort. [place] lifts, holds or supports trunk or limbs, but provides less than half the effort. 2-Substantial/Maximal Assistance-helper does MORE THAN HALF the effort. [place] lifts or holds trunk or limbs and provides more than half the effort. 4-Dwnicckwg-rbwvqg does ALL the effort. Patient does none of the effort to co mplete the activity. Or, the assistance of 2 or more helpers is required for the patient to complete the activity. If activity was not attempted, code reason: 7-Patient Refused. 9-Not Applicable-not attempted and the patient did not perform the activity before the current illness, exacerbation or injury. 10-Not Attempted due to Environmental Limitations-(lack of equipment, weather restraints, etc.). 88-Not Attempted due to Medical Conditions or Safety Concerns. Roll Left & Right (QC): 4 Sit to Lying (QC): 4 Lying to Sitting/Side of Bed(Q: 4 Sit to Stand (QC): 5 Weight Bearing Right Lower Extremity: Right Weight Bearing/Tolerated Left Lower Extremity: Left Weight Bearing/Tolerated Gait Training Does the Patient Walk?: Yes Distance: 200' Walk 10 feet (QC): 3 Walk 50 ft with 2 Turns(QC): 3 Walk 150 ft (QC): 3 Gait Assistive Device: FWW Parkinson's gait sequence Assessment Patient appears to "fade" off at completion of ambulation requiring assistance to sit in chair and transfer to bed. RN present. BP 124/58. Patient in bed with 4 rails up and bed alarm activated. PT Hemstitching Machine Operator Goals Hemstitching Machine Operator Goals PT Hemstitching Machine Operator Goals Time Frame: Oct 07, 2019 Roll Left & Right (QC): 4 Sit to Lying (QC): 4 Lying-Sitting on Side/Bed(QC): 4 Sit to Stand (QC): 4 Chair/Qrn-sa-Lpjbj Xfer(QC): 4 Toilet Transfer (QC): 4 Car Transfer (QC): 4 Does the Patient Walk: Yes Walk 10 feet (QC): 3 Walk 50ft with 2 Turns (QC): 3 Walk 150 ft (QC): 3 Walking 10ft on Uneven Surface: 3 1 Step (curb) (QC): 3 4 Steps (QC): 88 12 Steps (QC): 88 Picking up an Object (QC): 88 Does the Pt use WC or Scooter?: No Type: N/A Type: N/A PT Plan Treatment/Plan Treatment Plan: Continue Plan of Care Treatment Plan: Bed Mobility, Education, Functional Activity [place], Functional Strength, Gait, Safety, Therapeutic Exercise, Transfers Treatment Duration: Oct 07, 2019 Frequency: 5 times per week Estimated Hrs Per Day: .5 hour per day Patient and/or Family Agrees t: Yes Time/GCodes Time In: 856 Time Out: 911 Total Billed Treatment Time: 15 Total Billed Treatment 1 visit FA 15 min YAA CAMACHO PT Oct 03, 2019 09:35
--- NOTE | 2019-10-03 10:28 | Diagnostic Imaging Report ---
INDICATION: Shortness of air and pneumonia. Time of exam 10:10 AM Correlation is made with prior chest from 10/01/2019. Heart size is stable. Dual-lead left subclavian cardiac pacemaker remains in place. Bilateral effusions are noted. There is some residual infiltrate or atelectasis in the right base. Otherwise, the lungs are clear. There is no pneumothorax. IMPRESSION: Bilateral effusions with right basilar infiltrate or atelectasis. Overall congestive changes have improved since examination 2 days earlier. Dictated by: Dictated on workstation # [id number]
--- NOTE | 2019-10-03 11:15 | Occupational Ther Daily Note ---
OT Current Status-Daily Note Subjective Pt laying in bed sleeping, easily awoken. Pt agreeable to OT tx this AM, denied pain. Mental Status/Objective Patient Orientation: Confused ADL-Treatment Therapy Code Descriptions/Definitions Functional [place] Measure: 0=Not Assessed/NA 4=Minimal Assistance 1=Total Assistance 5=Supervision or Setup 2=Maximal Assistance 6=Modified [place] 3=Moderate Assistance 7=Complete IndependenceSCALE: Activities may be completed with or without assistive devices. 1-Ciuoakgjjj-acjjrzo completes the activity by him/herself with no assistance from a helper. 5-Set-up or Clean-up Assistance-helper sets up or cleans up; patient completes activity. [place] assists only prior to or following the activity. 4-Supervision or Touching Assistance-helper provides verbal cues and/or touching/steadying and/or contact guard assistance as patient completes activity. Assistance may be provided throughout the activity or intermittently. 3-Partial/Moderate Assistance-helper does LESS THAN HALF the effort. [place] lifts, holds or supports trunk or limbs, but provides less than half the effort. 2-Substantial/Maximal Assistance-helper does MORE THAN HALF the effort. [place] lifts or holds trunk or limbs and provides more than half the effort. 7-Hkscvpaqt-zqxdfr does ALL the effort. Patient does none of the effort to complete the activity. Or, the assistance of 2 or more helpers is required for the patient to complete the activity. If activity was not attempted, code reason: 7-Patient Refused. 9-Not Applicable-not attempted and the patient did not perform the activity before the current illness, exacerbation or injury. 10-Not Attempted due to Environmental Limitations-(lack of equipment, weather restraints, etc.). 88-Not Attempted due to Medical Conditions or Safety Concerns. Other Treatment Pt laying in bed during session. Pt leaning towards his left side, he was able to scoot towards midline but required assist to fully achieve midline. When given the options between brushing his teeth, sponge bath, or arm exercises, pt did not respond. OT then asked if he would like to brush his teeth, pt declined. Pt agreeable to arm exercises, with mod encouragement throughout task. Pt completed x15 reps each of the following BUE exercises: elbow flexion, shoulder flexion, & front punch. Post OT session, pt laying in bed, call light in reach and all needs met. Education OT Patient Education: Correct positioning, Energy conservation, Exercise program, Progress toward Goal/Update tx plan, Purpose of tx/functional activit ies, Transfer techniques Teaching Recipient: Patient Teaching Methods: Discussion Response to Teaching: Reinforcement Needed OT Short Term Goals Short Term Goals Time Frame: Oct 05, 2019 Upper body dressin Lower body dressin OT [place] Regenerator Goals Snf Goals Time Frame: Oct 05, 2019 Eating (QC): 6 Oral Hygiene (QC): 6 Toileting Hygiene (QC): 6 Shower/Bathe Self (QC): 4 Upper Body Dressing (QC): 6 Lower Body Dressing (QC): 6 On/Off Footwear (QC): 6 Additional Goals: 1-Demonstrate ADL Tasks, 2-Verbalize Understanding, 3- ImproveStrength/[place] 1=Demonstrate adherence to instructed precautions during ADL tasks. 2=Patient will verbalize/demonstrate understanding of assistive devices/modifications for ADL. 3=Patient will improve strength/tolerance for activity to enable patient to perform ADL's. OT Education/Plan Problem List/Assessment Assessment: Decreased Activ Tolerance, Decreased UE Strength, Impaired Bed Mobility, Impaired I ADL's, Impaired Self-Care Skills Discharge Recommendations Plan/Recommendations: Continue POC Treatment Plan/Plan of Care Treatment,Training & Education: Yes Patient would benefit from OT for education, treatment and training to promote independence in ADL's, mobility, safety and/or upper extremity function for ADL's. Plan of Care: ADL Retraining, Caregiver Training, Functional Mobility, UE Funct Exercise/Act Treatment Duration: Oct 05, 2019 Frequency: 5 times per week Estimated Hrs Per Day: .25 hour per day Agreement: Yes Rehab Potential: Guarded Time/GCodes Start Time: 10:30 Stop Time: 10:40 Total Time Billed (hr/min): 10 Billed Treatment Time 1, EX SHITAL LLANES OT Oct 03, 2019 11:15
[2019-10-03 12:00] VITALS: BP 160/69
[2019-10-03] MEDS ORDERED: LIDOCAINE 1% INJ 20 ML 20 ML VIAL ONE (14:09)
[2019-10-03] MEDS ORDERED: THROMBIN 5,000 UNIT (RECOTHROM) VIAL TOP ONE (14:15)
--- NOTE | 2019-10-03 14:45 | NUR ---
Patient off floor to laboratory analyst at this time.
--- NOTE | 2019-10-03 14:46 | Cardiology Progress Note ---
Cardiology SOAP Progress Note Subjective: No cardiac complaints. Objective: I&O/Vital Signs 10/03/19 10/03/19 10/03/19 10/03/19 04:04 07:00 08:00 08:00 Temp 36.5 36.3 Pulse 60 60 60 Resp 18 18 B/P (MAP) 157/66 (96) 169/95 (119) Pulse Ox 95 97 O2 Delivery Room Air Room Air Room Air 10/03/19 10/03/19 10/03/19 08:49 12:00 12:40 Temp 36.4 Pulse 62 62 Resp 16 B/P (MAP) 160/69 (99) Pulse Ox 92 97 O2 Delivery Room Air Room Air 10/03/19 00:00 Intake Total 1160 ml Balance 1160 ml Weight (Pounds): 177 Weight (Ounces): 9.6 Weight (Calculated Kilograms): 80.186060 Constitutional: AAO x 3, well-developed, well-nourished Respiratory: chest is bilaterally symmetric, rhonchi Cardiovascular: regular rate-rhythm, S1 and S2 Gastrointestional: soft, audible bowel sounds Extremities: normal range of motion, non-tender, normal inspection, no lower extremity edema bilateral Neurologic/Psychiatric: no motor/sensory deficits, alert, normal mood/affect, oriented x 3 Skin: normal color Results/Procedures: Labs Laboratory Tests 10/02/19 15:37: Glucometer 174H 10/02/19 20:32: Glucometer 204H 10/03/19 06:16: Glucometer 84 10/03/19 11:32: Glucometer 201H A/P: Assessment/Dx: Pneumonia Syncope Coronary artery disease Peripheral arterial disease, Left common femoral artery pseudoaneurysm Plan: Pneumonia, some improvement on chest x-ray, still receiving antibiotic, continue to monitor Generalized weakness, severe orthostatic hypotension, labile blood pressure, currently off all blood pressure medication. Continue to monitor Pleural effusion, continue to monitor Small Left groin pseudoaneurysm at left LITERATURE TEACHER, peripheral angiogram was done through left LITERATURE TEACHER on 08/17/2019. Plan to repeat ultrasound on thursday10/03/2019. Repeat arterial ultrasound showed that the left LITERATURE TEACHER pseudoaneurysm has increased in size from 1.7 cm to 2.1 cm. This is more than 6 weeks post procedure. It is unlikely to resolve on its own. I discussed at length with the patient's and recommended that we do a left groin pseudoaneurysm repair with thrombin injection. Informed consent was taken. All risk and complication were discussed at length. We'll perform and under ultrasound guidance. Severe Peripheral vascular disease, had nonhealing wound right lower extremity, underwent peripheral angiogram on August 17, 2019 revealing total occlusion of right SFA, successful angioplasty then deployment of 2 Supera stent [id number] and [id number] with excellent results and flow. Severe disease at the distal posterior tibial artery proximal anterior tibial artery. Heavily calcified left SFA with multiple segments of moderate to severe disease with occluded anterior tibial artery. Patient is maintained on Plavix and aspirin. Wound to right lower extremity is healing. Patient has known severe disease on the left side, we will continue with conservative management unless patient becomes symptomatic due to his comorbidities. Currently not having any symptoms, does not have any ulceration to left lower extremity. Continue to monitor Sick sinus syndrome, history of episodes of bradycardia with complete heart block, frequent PVCs, ventricular bigeminy and ventricular couplets, short PAT's. Status post permanent pacemaker implantation April 2015, using a [employer] device Advisa DR GONZALEZ, last interrogation was done in June 2019 s howing good sensing and capture activity, longevity for the battery is 4 years, no arrhythmia was detected. Continue to monitor Nonsustained ventricular tachycardia, No recent arrhythmia on pacemaker interrogation, continue to monitor. Paroxysmal atrial fibrillation, currently off amiodarone, continue to monitor on telemetry [id number] score of 6, high risk, yearly risk of stroke without OAC is 9.8%. Maintained on Xarelto, continue to monitor Coronary artery disease, multiple interventions in the past, most recent cardiac catheterization done March 14, 2015 revealed extensive coronary artery disease, heavily calcified system, with 40 percent distal left main coronary artery stenosis. 3 stents in LAD proximally with 50-60 percent in-stent restenosis. Distal LAD had 95 percent stenosis followed by 80 percent stenosis long segment, very small artery not amendable to intervention. Total occlusion of the first obtuse marginal branch filled by collaterals. Patent stent in the proximal mid second OM branch with moderate disease in the distal proper circumflex artery. Patent stent in the RCA with 50 percent proximal right coronary artery stenosis and 50-60 distal right coronary artery stenosis. Asymptomatic, continue to m onitor Stress test in July 2016 showed fixed defect involving the whole inferior wall and inferoapical segment with dilated left ventricle, inferior wall hypokinesia, Ejection fraction 54 percent. Echocardiogram showed ejection fraction 60 percent, dilated left atrium, mild to moderate mitral regurgitation and pulmonary artery pressure of 35 mmHg. continue to monitor, Hyperlipidemia, maintained on Crestor, continue to monitor lipids. History of CVA in 2010, mild residual right sided weakness, episodes of confusion occurred over the last year where patient became confused and drove over once to [place] and once to [place]. It was felt that it was a global ischemic attack with confusion, workup at that time was negative. He was seen by Dr. Jiménez and started on Dilantin, the dose was increased by Dr. Damon, followed and managed by primary care physician Congestive heart failure, EF 45-50 percent, as well as diastolic dysfunction per most recent 2-D echocardiogram done 2018, continue with current medication Diabetes mellitus, followed and managed by primary care physician Carotid stenosis, monitored by Dr. Simmons's office Dementia, managed by primary care physician. Ex-Tobaccoism, patient smokes pipe, he stopped smoking in October, encouraged to continue with smoking cessation Peripheral neuropathy, maintained on gabapentin. Continue on current medication, continue to monitor Sleep apnea, severe on sleep study in October 2015, does not use his machine. Thank you for your consultation. Please call me if you have any questions. Fatimah San MD, FACP, FACC, FSCAI, FHRS, CCDS Interventional Cardiology Cardiac Electrophysiology Vascular Medicine and Endovascular Interventions Gisela SAN MD Oct 03, 2019 14:46
[2019-10-03] MEDS ORDERED: NS IV 1000 ML 1,000 ML ONE (14:53)
--- NOTE | 2019-10-03 15:15 | NUR ---
at bedside, consent for procedure signed per her. Denied any questions. Pt was prepped for procedure. Left groin was sterilized with choraprep. Pt was draped out in sterile fashion. Time out was performed with Michaela Mittal (US) and myself without issues noted. Lidocaine was given per Dr. San to Left groin with US guidance. 5 units of Thrombin was given per Dr. San to Pseudoaneurysm using US guidance. Confirmed not track flow under US. Pt will be watched and assessed in [facility] for 30 mins and US will be repeated. Pt will then be recovered in ICU.
[2019-10-03] MEDS ORDERED: LIDOCAINE 1% INJ 20 ML 20 ML VIAL INJ ONE (15:30)
--- NOTE | 2019-10-03 16:12 | NUR ---
Repeat US showed pseudoaneurysm still had flow to it. Thrombin was given for a total of [address] San. Pt tolerated well. US was used to hold pressure at the neck of the pseudo. 10 mins of pressure was held and an US was ordered for am to recheck.
[2019-10-03 16:30] VITALS: BP 157/68
--- NOTE | 2019-10-03 16:38 | Cardiology Post Procedure Note ---
Post-Procedure Note Physician (s)/Billing Control Clerk (s) Physician Gisela CONTRERAS MD Pre-Procedure Diagnosis Pre-Procedure Diagnosis: left persistent pseudoaneurysm Post-Procedure Note Procedure Start Date: Oct 03, 2019 Procedure Start Time: 14:30 Name of Procedure: Ultrasound-guided left pseudoaneurysm repair. Findings/Procedure Note This is a 78-year-old gentleman with previous history of PAD and peripheral angiogram via L [address] MAGISTRATE on 08/17/2019. Left groin swelling. Ultrasound demonstrated a left pseudoaneurysm with diameter of 2.1cm. Lidocaine was given for local anesthesia. Under ultrasound guidance by carefully 55 international units of thrombin was injected in the pseudoaneurysm with immediate cessation of flow and closure of the pseudoaneurysm however a small neck remained. We will watch it overnight and recheck with arterial ultrasound in the am. Estimated blood loss (mL): 0 Contrast Amount: none Post-Procedure Diagnosis Post-operative diagnosis: Successful ultrasound-guided left pseudoaneurysm repair Gisela CONTRERAS MD Oct 03, 2019 16:38
[2019-10-03] MEDS ORDERED: PATIENT MAY USE OWN MEDS, ALL PO SCH (16:45)
[2019-10-03] MEDS: NS IV 1000 ML 1,000 ML IV SCH ×2 (18:12→21:28)
[2019-10-03] MEDS: RIVAROXABAN 20 MG TABLET (XARELTO) PO SCH (18:17)
[2019-10-03] MEDS: TAMSULOSIN 0.4 MG (FLOMAX) CAP PO SCH (18:17)
--- NOTE | 2019-10-03 18:34 | NUR ---
patient transferred to [facility] with assist of PCT with no incident. Katia to re-assume care of patient at this time. report given.
--- NOTE | 2019-10-03 18:36 | NUR ---
Report received from Danielle ROSSI, patient to room 410. Family at bedside. Patient alert at this time, patient oriented to room and call light at this time. Will assume care of patient at this time.
[2019-10-03 19:07] VITALS: BP 146/72
[2019-10-03] MEDS: ASPIRIN E.C. 81 MG (ECOTRIN) TAB PO SCH (21:28)
[2019-10-04 00:15] VITALS: BP 134/71
[2019-10-04] MEDS: NS IV 1000 ML 1,000 ML IV SCH (02:48)
[2019-10-04 04:00] VITALS: BP 136/72
[2019-10-04 05:27] VITALS: BP 136/72
[2019-10-04] MEDS: inSUlin ASPART (NovoLOG) 1 UNIT/0.01 ML (CHARGE PER UNIT) SC SCH ×2 (06:05→13:29)
[2019-10-04] MEDS: CATHETER FLUSH 10 ML SYR IV SCH (06:06)
[2019-10-04] MEDS: BETHANECHOL 25 MG (URECHOLINE) TAB PO SCH ×2 (06:06→13:33)
--- NOTE | 2019-10-04 06:43 | NUR ---
0555- PT BLOOD SUGAR WAS 55. PT GIVEN 8 OZ OF ORANGE JUICE. 8 OZ OF MILK. PEANUT BUTTER AND CRACKERS AT THIS TIME. 0645- RECHECKED PT BLOOD SUGAR AT THIS TIME. PT BLOOD SUGAR IS 78. WILL CONTINUE TO MONITOR.
--- NOTE | 2019-10-04 07:37 | Progress Note ---
Subjective Time Seen by a Provider: 07:33 Subjective/Events-last exam Ration alert this morning. Blood pressure better. Waiting for ultrasound report of pseudoaneurysm. Blood sugars low but did not eat much yesterday. I would like to discharge patient today. Objective Exam Vital Signs Date Time Temp Pulse Resp B/P (MAP) Pulse Ox O2 Delivery O2 Flow Rate FiO2 10/04/19 05:27 37.2 60 18 136/72 (93) 95 Room Air 10/04/19 04:00 37.2 60 18 136/72 (93) 95 Room Air 10/04/19 00:54 53 10/04/19 00:15 36.0 63 18 134/71 (92) 95 Room Air 10/03/19 20:58 92 Room Air 10/03/19 20:00 Room Air 10/03/19 19:07 36.2 68 22 146/72 (96) 96 Room Air 10/03/19 18:48 61 10/03/19 16:30 36.0 61 16 157/68 (97) 92 Room Air 10/03/19 12:40 62 10/03/19 12:00 36.4 62 16 160/69 (99) 97 Room Air 10/03/19 08:49 92 Room Air 10/03/19 08:00 36.3 60 18 169/95 (119) 97 Room Air 10/03/19 08:00 Room Air I & O 10/04/19 07:00 Intake Total 1040 ml Balance 1040 ml Capillary Refill : Less Than 3 Seconds General Appearance: No Apparent Distress, WD/WN HEENT: Normal ENT Inspection Neck: Full Range of Motion, Normal Inspection Respiratory: No Accessory Muscle Use, No Respiratory Distress, Decreased Breath Sounds Cardiovascular: Regular Rate, Rhythm, No Murmur Gastrointestinal: non tender, soft Results Lab Laboratory Tests 10/03/19 11:32: Glucometer 201H 10/03/19 20:43: Glucometer 103 10/04/19 05:58: Glucometer 54*L 10/04/19 06:44: Glucometer 78 Assessment/Plan Assessment/Plan Assess & Plan/Chief Complaint Pneumonia. Right rib fractures. Diabetes. Peripheral artery disease. Dementia. Weakness. Orthostatic hypotension history. Hypertension. . 09/30/19. Pneumonia. Right rib fractures. Diabetes. Peripheral artery disease. Dementia. Weakness. Orthostatic hypotension history. Hypertension. Plan to discharge [facility]. . 10/03/19. Pneumonia. Right rib fractures. Diabetes. Peripheral artery disease. Pseudoaneurysm of left femoral. Dementia. Parkinson disease. Hypertension. . 10/04/19. Pneumonia. Right rib fracture. Diabetes. Peripheral artery disease. Pseudoaneurysm of the left femoral. Dementia. Parkinson disease. Hypertension better area Patient looking better today. Hypertension better. Waiting for ultrasound results. Clinical Quality Measures Admission Status Admission Dx Pneumonia. Peripheral artery disease. Diabetes. Dementia. Orthostatic hypotension. Weakness DVT/VTE Risk/Contraindication: Risk Factor Score Per Nursin RFS Level Per Nursing on Admit: 4+=Very High DENIZ KENT DO Oct 04, 2019 07:37
[2019-10-04 08:00] VITALS: BP 135/61
[2019-10-04] MEDS: PANTOPRAZOLE 40 MG (PROTONIX) TAB PO SCH (08:46)
[2019-10-04] MEDS: SENNA W/DOCUSATE (SENOKOT S) TABLET PO SCH (08:46)
[2019-10-04] MEDS: amLODIPine 5 MG (NORVASC) TAB PO SCH (08:46)
[2019-10-04] MEDS: SINEMET CR 50/200 (CARBIDOPA/LEVODOPA SA) TAB PO SCH ×2 (08:46→13:38)
[2019-10-04] MEDS: CLOPIDOGREL 75 MG (PLAVIX) TABLET PO SCH (08:54)
[2019-10-04] MEDS: POLYETHYLENE GLYCOL 17 GM (MIRALAX) PACK PO SCH (08:54)
[2019-10-04] MEDS: DOCUSATE SODIUM 100 MG (COLACE) CAP PO SCH (08:57)
--- NOTE | 2019-10-04 09:29 | Physical Therapy Daily Note ---
PT Daily Note-Current Subjective Pt awake and agreeable to treatment initially. After performing supine ex and sitting edge of bed, he then refused to ambulate. Mental Status Patient Orientation: Confused Transfers SCALE: Activities may be completed with or without assistive devices. 0-Mbqneaqaqo-zsuwfpi completes the activity by him/herself with no assistance from a helper. 5-Set-up or Clean-up Assistance-helper sets up or cleans up; patient completes activity. [place]s assists only prior to or following the activity. 4-Supervision or Touching Assistance-helper provides verbal cues and/or touching/steadying and/or contact guard assistance as patient completes activity. Assistance may be provided throughout the activity or intermittently. 3-Partial/Moderate Assistance-helper does LESS THAN HALF the effort. Downs lifts, holds or supports trunk or limbs, but provides less than half the effort. 2-Substantial/Maximal Assistance-helper does MORE THAN HALF the effort. Downs lifts or holds trunk or limbs and provides more than half the effort. 9-Etlphbukd-iwvhoc does ALL the effort. Patient does none of the effort to complete the activity. Or, the assistance of 2 or more helpers is required for the patient to complete the activity. If activity was not attempted, code reason: 7-Patient Refused. 9-Not Applicable-not attempted and the patient did not perform the activity before the current illness, exacerbation or injury. 10-Not Attempted due to Environmental Limitations-(lack of equipment, weather restraints, etc.). 88-Not Attempted due to Medical Conditions or Safety Concerns. Roll Left & Right (QC): 3 Sit to Lying (QC): 3 Lying to Sitting/Side of Bed(Q: 3 Weight Bearing Right Lower Extremity: Right Weight Bearing/Tolerated Left Lower Extremity: Left Weight Bearing/Tolerated Exercises Supine Ex: LE Protocol Supine Reps: 15 Treatments Pt sat edge of bed 2min without assist. He was unwilling to stand or ambulate and requested to return to supine. Assessment Current Status: Fair Progress Pt was unwilling to stand and ambulate but was able to perform bed ex and sit edge of bed without assist to sit safely. PT Balloon Design Printer Goals Balloon Design Printer Goals PT Long-Term Goals Time Frame: Oct 07, 2019 Roll Left & Right (QC): 4 Sit to Lying (QC): 4 Lying-Sitting on Side/Bed(QC): 4 Sit to Stand (QC): 4 Chair/Zlh-vy-Lxajh Xfer(QC): 4 Toilet Transfer (QC): 4 Car Transfer (QC): 4 Does the Patient Walk: Yes Walk 10 feet (QC): 3 Walk 50ft with 2 Turns (QC): 3 Walk 150 ft (QC): 3 Walking 10ft on Uneven Surface: 3 1 Step (curb) (QC): 3 4 Steps (QC): 88 12 Steps (QC): 88 Picking up an Object (QC): 88 Does the Pt use WC or Scooter?: No Type: N/A Type: N/A PT Plan Treatment/Plan Treatment Plan: Continue Plan of Care Treatment Plan: Bed Mobility, Education, Functional Activity Navya, Functional Strength, Gait, Safety, Therapeutic Exercise, Transfers Treatment Duration: Oct 07, 2019 Frequency: 5 times per week Estimated Hrs Per Day: .5 hour per day Patient and/or Family Agrees t: Yes Time/GCodes Time In: 0907 Time Out: 09 Total Billed Treatment Time: 16 Total Billed Treatment 1, ex16 HOPE RIOJAS PT Oct 04, 2019 09:28
[2019-10-04] MEDS: RT-ALBUTEROL SULF 2.5 MG/3 ML PRE-MIX VIAL INH SCH (09:55)
--- NOTE | 2019-10-04 10:06 | Diagnostic Imaging Report ---
INDICATION: Followup of a pseudoaneurysm repair left common femoral artery. FINDINGS: Pseudoaneurysm is again identified decreasing in size now measuring 1.3 x 0.6 cm. There is no flow demonstrated within the pseudoaneurysm with Doppler sampling. IMPRESSION: No evidence of flow within the pseudoaneurysm of the left common femoral artery which has decreased in size and previous exam. Dictated by: Dictated on workstation # [id number]
--- NOTE | 2019-10-04 10:55 | Occupational Ther Daily Note ---
OT Current Status-Daily Note Subjective Pt seen in bed, supine. Respiratory therapy leaving room. Pt alert/ awake. Pt agreeable to OT tx session. ADL-Treatment Therapy Code Descriptions/Definitions Functional [place] Measure: 0=Not Assessed/NA 4=Minimal Assistance 1=Total Assistance 5=Supervision or Setup 2=Maximal Assistance 6=Modified [place] 3=Moderate Assistance 7=Complete IndependenceSCALE: Activities may be completed with or without assistive devices. 7-Opqupdcunr-urgkmli completes the activity by him/herself with no assistance from a helper. 5-Set-up or Clean-up Assistance-helper sets up or cleans up; patient completes activity. [place] assists only prior to or following the activity. 4-Supervision or Touching Assistance-helper provides verbal cues and/or touching/steadying and/or contact guard assistance as patient completes activity. Assistance may be provided throughout the activity or intermittently. 3-Partial/Moderate Assistance-helper does LESS THAN HALF the effort. [place] lifts, holds or supports trunk or limbs, but provides less than half the effort. 2-Substantial/Maximal Assistance-helper does MORE THAN HALF the effort. [place] lifts or holds trunk or limbs and provides more than half the effort. 2-Iysuiomog-nkuufl does ALL the effort. Patient does none of the effort to complete the activity. Or, the assistance of 2 or more helpers is required for the patient to complete the activity. If activity was not attempted, code reason: 7-Patient Refused. 9-Not Applicable-not attempted and the patient did not perform the activity before the current illness, exacerbation or injury. 10-Not Attempted due to Environmental Limitations-(lack of equipment, weather restraints, etc.). 88-Not Attempted due to Medical Conditions or Safety Concerns. Shower/Bathe Self (QC): 7 Upper Body Dressing (QC): 7 Lower Body Dressing (QC): 7 On/Off Footwear: 7 Toileting Hygiene (QC): 7 Other Treatment Pt agreeable to OT tx session, denies OOB activity. Pt encouraged to sit up through day, respiratory encourages as well. Pt agreeable to sit in recliner chair. Pt bed mob with mod A, sit to stand with CGA. Pt ambulates with steady gait to recliner chair. Pt positioned with pillows under BLE. Pt denies additional needs/ treatments. Pt left in recliner, chair alarm on, all needs met, call light in reach. Education OT Patient Education: Correct positioning, Purpose of tx/functional activities, Safety issues Teaching Recipient: Patient Teaching Methods: Demonstration, Discussion Response to Teaching: Verbalize Understanding, Return Demonstration OT Short Term Goals Short Term Goals Time Frame: Oct 05, 2019 Upper body dressin Lower body dressin OT Supervisor Coremaker Goals Supervisor Coremaker Goals Time Frame: Oct 05, 2019 Eating (QC): 6 Oral Hygiene (QC): 6 Toileting Hygiene (QC): 6 Shower/Bathe Self (QC): 4 Upper Body Dressing (QC): 6 Lower Body Dressing (QC): 6 On/Off Footwear (QC): 6 Additional Goals: 1-Demonstrate ADL Tasks, 2-Verbalize Understanding, 3-ImproveStrength/Navya 1=Demonstrate adherence to instructed precautions during ADL tasks. 2=Patient will verbalize/demonstrate understanding of assistive devices/modifications for ADL. 3=Patient will improve strength/tolerance for activity to enable patient to perform ADL's. OT Education/Plan Problem List/Assessment Assessment: Decreased Activ Tolerance, Decreased Safety Aware, Decreased UE Strength, Dependent Transfers, Impaired Bed Mobility, Impaired Cognition, Impaired Funct Balance, Impaired I ADL's, Impaired Self-Care Skills Discharge Recommendations Plan/Recommendations: Continue POC Therapy Discharge Recommendati: 24 Hour Supervision Treatment Plan/Plan of Care Treatment,Training & Education: Yes Patient would benefit from OT for education, treatment and training to promote independence in ADL's, mobility, safety and/or upper extremity function for ADL's. Plan of Care: ADL Retraining, Caregiver Training, Functional Mobility, UE Funct Exercise/Act Treatment Duration: Oct 05, 2019 Frequency: 5 times per week Estimated Hrs Per Day: .25 hour per day Agreement: Yes Rehab Potential: Guarded Time/GCodes Start Time: 09:55 Stop Time: 10:05 Total Time Billed (hr/min): 10 Billed Treatment Time 1, FA (10) TYRA ALEJO OTR Oct 04, 2019 10:55
[2019-10-04 12:00] VITALS: BP 167/74
[2019-10-04] MEDS ORDERED: METO-387 PO (12:55)
[2019-10-04] MEDS ORDERED: INSU100V5 SQ (12:57)
--- NOTE | 2019-10-04 15:25 | Cardiology Progress Note ---
Cardiology SOAP Progress Note Subjective: No cardiac complaints. Objective: I&O/Vital Signs 10/04/19 10/04/19 10/04/19 10/04/19 04:00 05:27 07:00 08:00 Temp 37.2 37.2 Pulse 60 60 59 Resp 18 18 B/P (MAP) 136/72 (93) 136/72 (93) Pulse Ox 95 95 O2 Delivery Room Air Room Air Room Air 10/04/19 10/04/19 10/04/19 10/04/19 08:00 09:55 12:00 13:00 Temp 36.0 36.1 Pulse 57 75 59 Resp 20 16 B/P (MAP) 135/61 (85) 167/74 (105) Pulse Ox 96 92 94 O2 Delivery Room Air Room Air Room Air 10/04/19 00:00 Intake Total 620 ml Balance 620 ml Weight (Pounds): 177 Weight (Ounces): 9.6 Weight (Calculated Kilograms): [id number] Constitutional: AAO x 3, well-developed, well-nourished Respiratory: chest is bilaterally symmetric, rhonchi Cardiovascular: regular rate-rhythm, S1 and S2 Gastrointestional: soft, audible bowel sounds Extremities: normal range of motion, non-tender, normal inspection, no lower extremity edema bilateral Neurologic/Psychiatric: no motor/sensory deficits, alert, normal mood/affect, oriented x 3 Skin: normal color Results/Procedures: Labs Laboratory Tests 10/03/19 20:43: Glucometer 103 10/04/19 05:58: Glucometer 54*L 10/04/19 06:44: Glucometer 78 10/04/19 11:49: Glucometer 153H A/P: Assessment/Dx: Pneumonia Syncope Coronary artery disease Peripheral arterial disease, Left common femoral artery pseudoaneurysm Plan: Pneumonia, some improvement on chest x-ray, still receiving antibiotic, continue to monitor Generalized weakness, severe orthostatic hypotension, labile blood pressure, currently off all blood pressure medication. Continue to monitor Pleural effusion, continue to monitor Small Left groin pseudoaneurysm at left [employer]ULTING [employer]AS[employer]Y DIRECTOR, peripheral angiogram was done through left [employer]IS[employer]SULTING [employer]AS[employer]Y DIRECTOR on 08/17/2019. Plan to repeat ultrasound on thursday10/03/2019. Repeat arterial ultrasound showed that the left [employer] CONSULTING T[employer]AS[employer]Y DIRECTOR pseudoaneurysm has increased in size from 1.7 cm to 2.1 cm. This is more than 6 weeks post procedure. It is unlikely to resolve on its own. I discussed at length with the patient's and recommended that we do a left groin pseudoaneurysm repair with thrombin injection. Informed consent was taken. All risk and complication were discussed at length. We'll perform and under ultrasound guidance. Left pseudoaneurysm repair done on 10/03/2019. Repeat ultrasound today showed significantly reduced left pseudoaneurysm with diameter maximum of 1.3 cm. Will follow in one week in Dr. Karimi's office with ultrasound. Severe Peripheral vascular disease, had nonhealing wound right lower extremity, underwent peripheral angiogram on August 17, 2019 revealing total occlusion of right SFA, successful angioplasty then deployment of 2 Supera stent 6150 and 6x 100 with excellent results and flow. Severe disease at the distal posterior tibial artery proximal anterior tibial artery. Heavily calcified left SFA with multiple segments of moderate to severe disease with occluded anterior tibial artery. Patient is maintained on Plavix and aspirin. Wound to right lower extremity is healing. Patient has known severe disease on the left side, we will continue with conservative management unless patient becomes symptomatic due to his comorbidities. Currently not having any symptoms, does not have any ulceration to left lower extremity. Continue to monitor Sick sinus syndrome, history of episodes of bradycardia with complete heart block, frequent PVCs, ventricular bigeminy and ventricular couplets, short PAT's. Status post permanent pacemaker implantation April 2015, using a [employer] device Advisa DR GONZALEZ, last interrogation was done in June 2019 showing good sensing and capture activity, longevity for the battery is 4 years, no arrhythmia was detected. Continue to monitor Nonsustained ventricular tachycardia, No recent arrhythmia on pacemaker interrogation, continue to monitor. Paroxysmal atrial fibrillation, currently off amiodarone, continue to monitor on telemetry [id number] score of 6, high risk, yearly risk of stroke without OAC is 9.8%. Maintained on Xarelto, continue to monitor Coronary artery disease, multiple interventions in the past, most recent cardiac catheterization done March 14, 2015 revealed extensive coronary artery disease, heavily calcified system, with 40 percent distal left main coronary artery stenosis. 3 stents in LAD proximally with 50-60 percent in-stent restenosis. Distal LAD had 95 percent stenosis followed by 80 percent stenosis long segment, very small artery not amendable to intervention. Total occlusion of the first obtuse marginal branch filled by collaterals. Patent stent in the proximal mid second OM branch with moderate disease in the distal proper circumflex artery. Patent stent in the RCA with 50 percent proximal right coronary artery stenosis and 50-60 distal right coronary artery stenosis. Asymptomatic, continue to monitor Stress test in July 2016 showed fixed defect involving the whole inferior wall and inferoapical segment with dilated left ventricle, inferior wall hypokinesia, Ejection fraction 54 percent. Echocardiogram showed ejection fraction 60 percent, dilated left atrium, mild to moderate mitral regurgitation and pulmonary artery pressure of 35 mmHg. continue to monitor, Hyperlipidemia, maintained on Crestor, continue to monitor lipids. History of CVA in 2010, mild residual right sided weakness, episodes of confusion occurred over the last year where patient became confused and drove over once to [place] and once to [place]. It was felt that it was a global ischemic attack with confusion, workup at that time was negative. He was seen by Dr. Jiménez and started on Dilantin, the dose was increased by Dr. Damon, followed and managed by primary care physician Congestive heart failure, EF 45-50 percent, as well as diastolic dysfunction per most recent 2-D echocardiogram done 2018, continue with current medication Diabetes mellitus, followed and managed by primary care physician Carotid stenosis, monitored by Dr. Simmons's office Dementia, managed by primary care physician. Ex-Tobaccoism, patient smokes pipe, he stopped smoking in October, encouraged to continue with smoking cessation Peripheral neuropathy, maintained on gabapentin. Continue on current medication, continue to monitor Sleep apnea, severe on sleep study in October 2015, does not use his machine. Thank you for your consultation. Please call me if you have any questions. Fatimah San MD, FACP, FACC, FSCAI, FHRS, CCDS Interventional Cardiology Cardiac Electrophysiology Vascular Medicine and Endovascular Interventions Gisela SAN MD Oct 04, 2019 15:25
[2019-10-04 15:36] VITALS: BP 167/74
--- NOTE | 2019-10-04 15:38 | NUR ---
WEI PARADA demonstrates understanding of discharge instructions and accurately returns instructions upon questioning. Copy of Post-Discharge Instructions and Medication Discharge Instructions given to pt/. WEI PARADA/ are able to manage continuing needs after discharge. Patients belongings returned to pt. Skin dry and intact; no breakdown noted. Patient discharged from [facility] on 10/04/19 at 1537. WEI PARADA left floor via WC, accompanied by staff/.
--- NOTE | 2019-10-04 15:39 | NUR ---
DC instructions including medication changes and follow up appointments give to with pt's , she verbalized understanding of all teaching, questions answered. Pt in transport to ground level via WC with staff
--- NOTE | 2019-10-06 07:34 | Discharge Summary ---
Diagnosis/Chief Complaint Date of Admission Sep 27, 2019 at 16:02 Date of Discharge Oct 04, 2019 at 15:37 Discharge Date: Oct 04, 2019 Discharge Time: 07:31 Discharge Diagnosis Anemia. Diabetes. Right rib fractures. Pneumonia. Orthostatic hypotension. Hypertension. Right pleural effusion. Dementia. Left groin pseudo-aneurysm. Peripheral artery disease. Right ankle ulcer. Coronary artery disease. Peripheral neuropathy. Parkinson disease. PAF. Hyperlipidemia Reason Hospital Visit Patient transferred from acute rehabilitation. Patient has pneumonia. Patient diabetic. Patient has hypotension decreased medicines. Patient has dementia. Discharge Summary Procedures Pseudoaneurysm of left femoral artery Consultations Cardiology. Pulmonology Discharge Physical Examination Allergies: Coded Allergies: No Known Drug Allergies (Unverified , 09/06/18) Vitals & I&Os Vital Signs Date Time Temp Pulse Resp B/P (MAP) Pulse Ox O2 Delivery O2 Flow Rate FiO2 10/04/19 15:36 36.1 59 16 167/74 94 Room Air Hospital Course Labs (last 24 hrs) Laboratory Tests 09/27/19 19:47: Glucometer 416*H 09/27/19 22:28: Glucometer 414*H 09/28/19 05:34: Sodium Level 136, Potassium Level 4.3, Chloride Level 103, Carbon Dioxide Level 24, Anion Gap 9, Blood Urea Nitrogen 27H, Creatinine 1.05, Estimat Glomerular Filtration Rate > 60, BUN/Creatinine Ratio 26, Glucose Level 210H, Calcium Level 8.6, Corrected Calcium 9.6, Total Bilirubin 0.8, Aspartate Amino Transf (AST/SGOT) 27, Alanine Aminotransferase (ALT/SGPT) 8, Alkaline Phosphatase 153H, B-Type Natriuretic Peptide 204.7H, Total Protein 5.6L, Albumin 2.7L 09/28/19 05:38: Glucometer 234H 09/28/19 05:39: White Blood Count 9.6, Red Blood Count 2.89L, Hemoglobin 9.1L, Hematocrit 27L, Mean Corpuscular Volume 95, Mean Corpuscular Hemoglobin 32, Mean Corpuscular Hemoglobin Concent 33, Red Cell Distribution Width 13.5, Platelet Count 229, Mean Platelet Volume 10.8H, Neutrophils (%) (Auto) 69, Lymphocytes (%) (Auto) 18, Monocytes (%) (Auto) 10, Eosinophils (%) (Auto) 3, Basophils (%) (Auto) 0, Neutrophils # (Auto) 6.7, Lymphocytes # (Auto) 1.7, Monocytes # (Auto) 0.9, Eosinophils # (Auto) 0.3, Basophils # (Auto) 0.0 09/28/19 11:11: Glucometer 316H 09/28/19 16:14: Glucometer 283H 09/28/19 20:54: Glucometer 297H 09/29/19 05:00: Sodium Level 138, Potassium Level 4.1, Chloride Level 105, Carbon Dioxide Level 23, Anion Gap 10, Blood Urea Nitrogen 26H, Creatinine 1.25, Estimat Glomerular Filtration Rate 56, BUN/Creatinine Ratio 21, Glucose Level 102, Calcium Level 8.9, Corrected Calcium 9.9, Total Bilirubin 0.8, Aspartate Amino Transf (AST/SGOT) 33, Alanine Aminotransferase (ALT/SGPT) 8, Alkaline Phosphatase 121, Total Protein 5.5L, Albumin 2.7L 09/29/19 05:50: White Blood Count 10.8, Red Blood Count 2.87L, Hemoglobin 9.0L, Hematocrit 27L, Mean Corpuscular Volume 94, Mean Corpuscular Hemoglobin 31, Mean Corpuscular Hemoglobin Concent 33, Red Cell Distribution Width 14.5, Platelet Count 268, Mean Platelet Volume 10.2, Neutrophils (%) (Auto) 68, Lymphocytes (%) (Auto) 18, Monocytes (%) (Auto) 10, Eosinophils (%) (Auto) 4, Basophils (%) (Auto) 0, Neutrophils # (Auto) 7.4, Lymphocytes # (Auto) 2.0, Monocytes # (Auto) 1.1H, Eosinophils # (Auto) 0.4H, Basophils # (Auto) 0.0 09/29/19 05:51: Glucometer 110 09/29/19 11:22: Glucometer 186H 09/29/19 16:21: Glucometer 251H 09/29/19 20:56: Glucometer 238H 09/30/19 04:51: Glucometer 100 09/30/19 10:59: Glucometer 258H 09/30/19 12:25: Glucometer 259H 09/30/19 15:23: Glucometer 156H 09/30/19 20:39: Glucometer 204H 10/01/19 05:05: Sodium Level 139, Potassium Level 4.0, Chloride Level 108H, Carbon Dioxide Level 22, Anion Gap 9, Blood Urea Nitrogen 20H, Creatinine 1.06, Estimat Glomerular Filtration Rate > 60, BUN/Creatinine Ratio 19, Glucose Level 127H, Calcium Level 8.6, Corrected Calcium 9.8, Total Bilirubin 0.6, Aspartate Amino Transf (AST/SGOT) 33, Alanine Aminotransferase (ALT/SGPT) 8, Alkaline Phosphatase 105, Total Protein 5.4L, Albumin 2.5L 10/01/19 05:08: White Blood Count 6.9, Red Blood Count 2.69L, Hemoglobin 8.3L, Hematocrit 26L, Mean Corpuscular Volume 98, Mean Corpuscular Hemoglobin 31, Mean Corpuscular Hemoglobin Concent 32, Red Cell Distribution Width 14.7H, Platelet Count 256, Mean Platelet Volume 10.7H, Neutrophils (%) (Auto) 59, Lymphocytes (%) (Auto) 26, Monocytes (%) (Auto) 10, Eosinophils (%) (Auto) 5, Basophils (%) (Auto) 0, Neutrophils # (Auto) 4.1, Lymphocytes # (Auto) 1.8, Monocytes # (Auto) 0.7, Eosinophils # (Auto) 0.4H, Basophils # (Auto) 0.0 10/01/19 10:11: Glucometer 201H 10/01/19 16:10: Glucometer 177H 10/01/19 20:02: Glucometer 194H 10/02/19 05:37: Glucometer 133H 10/02/19 11:16: Glucometer 159H 10/02/19 15:37: Glucometer 174H 10/02/19 20:32: Glucometer 204H 10/03/19 06:16: Glucometer 84 10/03/19 11:32: Glucometer 201H 10/03/19 20:43: Glucometer 103 10/04/19 05:58: Glucometer 54*L 10/04/19 06:44: Glucometer 78 10/04/19 11:49: Glucometer 153H Pending Labs Laboratory Tests 09/27/19 19:47: Glucometer 416 09/27/19 22:28: Glucometer 414 09/28/19 05:34: Sodium Level 136, Potassium Level 4.3, Chloride Level 103, Carbon Dioxide Level 24, Anion Gap 9, Blood Urea Nitrogen 27, Creatinine 1.05, Estimat Glomerular Filtration Rate > 60, BUN/Creatinine Ratio 26, Glucose Level 210, Calcium Level 8.6, Corrected Calcium 9.6, Total Bilirubin 0.8, Aspartate Amino Transf (AST/SGOT) 27, Alanine Aminotransferase (ALT/SGPT) 8, Alkaline Phosphatase 153, B-Type Natriuretic Peptide 204.7, Total Protein 5.6, Albumin 2.7 09/28/19 05:38: Glucometer 234 09/28/19 05:39: White Blood Count 9.6, Red Blood Count 2.89, Hemoglobin 9.1, Hematocrit 27, Mean Corpuscular Volume 95, Mean Corpuscular Hemoglobin 32, Mean Corpuscular Hemoglobin Concent 33, Red Cell Distribution Width 13.5, Platelet Count 229, Mean Platelet Volume 10.8, Neutrophils (%) (Auto) 69, Lymphocytes (%) (Auto) 18, Monocytes (%) (Auto) 10, Eosinophils (%) (Auto) 3, Basophils (%) (Auto) 0, Neutrophils # (Auto) 6.7, Lymphocytes # (Auto) 1.7, Monocytes # (Auto) 0.9, Eosinophils # (Auto) 0.3, Basophils # (Auto) 0.0 09/28/19 11:11: Glucometer 316 09/28/19 16:14: Glucometer 283 09/28/19 20:54: Glucometer 297 09/29/19 05:00: Sodium Level 138, Potassium Level 4.1, Chloride Level 105, Carbon Dioxide Level 23, Anion Gap 10, Blood Urea Nitrogen 26, Creatinine 1.25, Estimat Glomerular Filtration Rate 56, BUN/Creatinine Ratio 21, Glucose Level 102, Calcium Level 8.9, Corrected Calcium 9.9, Total Bilirubin 0.8, Aspartate Amino Transf (AST/SGOT) 33, Alanine Aminotransferase (ALT/SGPT) 8, Alkaline Phosphatase 121, Total Protein 5.5, Albumin 2.7 09/29/19 05:50: White Blood Count 10.8, Red Blood Count 2.87, Hemoglobin 9.0, Hematocrit 27, Mean Corpuscular Volume 94, Mean Corpuscular Hemoglobin 31, Mean Corpuscular Hemoglobin Concent 33, Red Cell Distribution Width 14.5, Platelet Count 268, Mean Platelet Volume 10.2, Neutrophils (%) (Auto) 68, Lymphocytes (%) (Auto) 18, Monocytes (%) (Auto) 10, Eosinophils (%) (Auto) 4, Basophils (%) (Auto) 0, Neutrophils # (Auto) 7.4, Lymphocytes # (Auto) 2.0, Monocytes # (Auto) 1.1, Eosinophils # (Auto) 0.4, Basophils # (Auto) 0.0 09/29/19 05:51: Glucometer 110 09/29/19 11:22: Glucometer 186 09/29/19 16:21: Glucometer 251 09/29/19 20:56: Glucometer 238 09/30/19 04:51: Glucometer 100 09/30/19 10:59: Glucometer 258 09/30/19 12:25: Glucometer 259 09/30/19 15:23: Glucometer 156 09/30/19 20:39: Glucometer 204 10/01/19 05:05: Sodium Level 139, Potassium Level 4.0, Chloride Level 108, Carbon Dioxide Level 22, Anion Gap 9, Blood Urea Nitrogen 20, Creatinine 1.06, Estimat Glomerular Filtration Rate > 60, BUN/Creatinine Ratio 19, Glucose Level 127, Calcium Level 8.6, Corrected Calcium 9.8, Total Bilirubin 0.6, Aspartate Amino Transf (AST/SGOT) 33, Alanine Aminotransferase (ALT/SGPT) 8, Alkaline Phosphatase 105, Total Protein 5.4, Albumin 2.5 10/01/19 05:08: White Blood Count 6.9, Red Blood Count 2.69, Hemoglobin 8.3, Hematocrit 26, Mean Corpuscular Volume 98, Mean Corpuscular Hemoglobin 31, Mean Corpuscular Hemoglobin Concent 32, Red Cell Distribution Width 14.7, Platelet Count 256, Mean Platelet Volume 10.7, Neutrophils (%) (Auto) 59, Lymphocytes (%) (Auto) 26, Monocytes (%) (Auto) 10, Eosinophils (%) (Auto) 5, Basophils (%) (Auto) 0, Neutrophils # (Auto) 4.1, Lymphocytes # (Auto) 1.8, Monocytes # (Auto) 0.7, Eosinophils # (Auto) 0.4, Basophils # (Auto) 0.0 10/01/19 10:11: Glucometer 201 10/01/19 16:10: Glucometer 177 10/01/19 20:02: Glucometer 194 10/02/19 05:37: Glucometer 133 10/02/19 11:16: Glucometer 159 10/02/19 15:37: Glucometer 174 10/02/19 20:32: Glucometer 204 10/03/19 06:16: Glucometer 84 10/03/19 11:32: Glucometer 201 10/03/19 20:43: Glucometer 103 10/04/19 05:58: Glucometer 54 10/04/19 06:44: Glucometer 78 10/04/19 11:49: Glucometer 153 Laboratory Tests 09/28/19 05:34 09/28/19 05:39 09/29/19 05:00 09/29/19 05:50 10/01/19 05:05 10/01/19 05:08 Discussion & Recommendations To follow-up in the office Discharge Home Medications: Active Scripts Active Levemir (Insulin Determir) 1,000 Units/10 Ml Soln 12 Units SQ HS Metoprolol Succinate 25 Mg Tab.er.24h 25 Mg PO DAILY PRN MDD 25 30 Days For systolic bp > 150 Reported Xarelto (Rivaroxaban) 20 Mg Tablet 20 Mg PO HS Aspirin EC (Aspirin) 81 Mg Tablet.dr 81 Mg PO HS Plavix (Clopidogrel Bisulfate) 75 Mg Tablet 75 Mg PO DAILY Pantoprazole Sodium 40 Mg Tablet.dr 40 Mg PO DAILY Benicar (Olmesartan Medoxomil) 40 Mg Tablet 40 Mg PO DAILY Dulcolax (Bisacodyl) 5 Mg Tablet.dr 10 Mg PO HS PRN Carbidopa-Levo ER 50-200 Tab (Carbidopa/Levodopa) 1 Each Tablet.er 1 Tab PO 1300,2100 TAKES 2 TABS IN THE MORNING, 1 TAB AT 1300 AND 1 TAB AT BEDTIME Carbidopa-Levo ER 50-200 Tab (Carbidopa/Levodopa) 1 Each Tablet.er 2 Tab PO 0800 TAKES 2 TABS IN THE MORNING, 1 TAB AT 1300 AND 1 TAB AT BEDTIME Multivitamins (Multivitamin) 1 Each Tablet 1 Tab PO DAILY Flomax (Tamsulosin HCl) 0.4 Mg Cap 0.8 Mg PO 1730 TAKES 2 (0.4MG) CAPSULES Fish Oil 1,000 mg Softgel ([place]-3/Dha/Epa/Fish Oil) 1 Each Capsule 1,000 Mg PO BID Atorvastatin Calcium 40 Mg Tablet 40 Mg PO HS Gabapentin 300 Mg Capsule 300 Mg PO BID Glipizide 10 Mg Tablet 5 Mg PO DAILY TAKES 1/2 (10MG) TABLET Amiodarone HCl 200 Mg Tablet 200 Mg PO DAILY Amlodipine Besylate 10 Mg Tablet 5 Mg PO DAILY PRN TAKES 1/2 (10MG) TABLET Novolog Flexpen (Insulin Aspart) 300 Units/3 Ml Solution SQ TIDAC Instructions to patient/family Please see electronic discharge instructions given to patient. Clinical Quality Measures DVT/VTE Risk/Contraindication: Risk Factor Score Per Nursin RFS Level Per Nursing on Admit: 4+=Very High DENIZ KENT DO Oct 06, 2019 07:34
== END 2019-10-04 15:37 | disposition home or self-care (01) | DRG 194 ==
LOC: 4TH 16:02 → ICU 10-03 16:30 → 4TH 10-03 18:35
PROVIDERS: ADMIT Family Medicine; ATTEND Family Medicine
PROC: 3E053GC Introduction of Other Therapeutic Substance into Peripheral Artery, Percutaneous Approach (ICD-10-PCS; principal; 2019-10-03)
DX: J18.9 Pneumonia, unspecified organism (principal); I50.32 Chronic diastolic (congestive) heart failure; J90 Pleural effusion, not elsewhere classified; I69.351 Hemiplegia and hemiparesis following cerebral infarction affecting right dominant side; I11.0 Hypertensive heart disease with heart failure; I95.1 Orthostatic hypotension; Z66 Do not resuscitate; E11.42 Type 2 diabetes mellitus with diabetic polyneuropathy; E11.51 Type 2 diabetes mellitus with diabetic peripheral angiopathy without gangrene; F02.80 Dementia in other diseases classified elsewhere, unspecified severity, without behavioral disturbance, psychotic disturbance, mood disturbance, and anxiety; I48.0 Paroxysmal atrial fibrillation; I25.10 Atherosclerotic heart disease of native coronary artery without angina pectoris; E78.00 Pure hypercholesterolemia, unspecified; N40.0 Benign prostatic hyperplasia without lower urinary tract symptoms; G20 Parkinson's disease; G47.30 Sleep apnea, unspecified; I72.4 Aneurysm of artery of lower extremity; I34.0 Nonrheumatic mitral (valve) insufficiency; R53.1 Weakness; D64.9 Anemia, unspecified; Z79.4 Long term (current) use of insulin; Z87.891 Personal history of nicotine dependence; Z95.0 Presence of cardiac pacemaker; Z79.01 Long term (current) use of anticoagulants; Z95.5 Presence of coronary angioplasty implant and graft
CPT/HCPCS: 36415; 71045; 71046; 80053; 82962; 83880; 85025; 93306; 93926; 94640; 94760

== ENCOUNTER 2019-10-22 15:32 | Inpatient (IN) | payer MEDICARE ==
[2019-10-22] VITALS (7 sets, daily range): BP systolic 92–118; BP diastolic 44–57
[~2019-10-22] VITALS: Ht 177 cm; Wt 89.9 kg
[~2019-10-22 15:32] MED LIST changes: -METO-370 PO; -METO-387 PO; -METO-395 PO; +METO50TA7 PO; +MTP100TCR PO; +MTP25TSR PO; -TAMS0.4C98 PO
[2019-10-22] MEDS ORDERED: NS IV 1000 ML 1,000 ML IV SCH ×2 (15:49)
--- NOTE | 2019-10-22 15:58 | ED General ---
General Stated Complaint: UNRESPONSIVE, DIAR, SORES ON BOTTOM Source of Information: Patient Exam Limitations: No Limitations, Other History of Present Illness Date Seen by Provider: Oct 22, 2019 Time Seen by Provider: 15:32 Initial Comments Patient presents to ER by private conveyance with children and chief complaint that for the past week he's been out of it, poor appetite diarrhea and therefore it is becoming dehydrated. He had an appointment with Dr. Kent on Thursday, 6 days ago and some labs were done but no imaging. At that time Dr. Kent thought he was doing okay and let him go home. Home health nurse was suspicious that with his diarrhea he might have re-acquired C. difficile colitis. He was recently in the hospital for a couple weeks on antibiotics and discharged around [facility] 2 weeks ago. 6 days ago he was constipated and they decided to use several laxatives and suppositories and the thinks maybe that's the reason he is having some diarrhea. He was discharged with pneumonia, orthostatic hypotension, right rib fracture. He has a history of diabetes, dementia and Parkinson's disease as well as atrial fibrillation on Xarelto. His daughter reports he has some bleeding wounds on his backside. He follows with Dr. Karimi, cardiology and they've had a hard time regulating his blood pressure recently. 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 He has a history of severe peripheral vascular disease and a nonhealing right lower extremity wound. Total occlusion of his right SFA. He had 2 stents placed with excellent results. He has a history of sick sinus syndrome with episodes of bradycardia and complete heart block and frequent PVCs and short paroxysmal atrial tachycardia runs. He has a pacemaker from April 2015. History of stroke in 2010. Congestive heart failure with an EF of 45-50% on echocardiogram from 2019. History of carotid stenosis managed by Dr. estrada. History of smoking; quit in 2019. Allergies and Home Medications Allergies Coded Allergies: No Known Drug Allergies (Unverified , 09/06/18) Home Medications Amiodarone HCl 200 Mg Tablet, 200 MG PO DAILY, (Reported) Amlodipine Besylate 10 Mg Tablet, 5 MG PO DAILY PRN for BLOOD PRESSURE >150, (Reported) TAKES 1/2 (10MG) TABLET Aspirin 81 Mg Tablet.dr, 81 MG PO HS, (Reported) Atorvastatin Calcium 40 Mg Tablet, 40 MG PO HS, (Reported) Bisacodyl 5 Mg Tablet.dr, 10 MG PO HS PRN for CONSTIPATION-4TH LINE, (Reported) Carbidopa/Levodopa 1 Each Tablet.er, 2 TAB PO 0800, (Reported) TAKES 2 TABS IN THE MORNING, 1 TAB AT 1300 AND 1 TAB AT BEDTIME Carbidopa/Levodopa 1 Each Tablet.er, 1 TAB PO 1300,2100, (Reported) TAKES 2 TABS IN THE MORNING, 1 TAB AT 1300 AND 1 TAB AT BEDTIME Clopidogrel Bisulfate 75 Mg Tablet, 75 MG PO DAILY, (Reported) Gabapentin 300 Mg Capsule, 300 MG PO BID, (Reported) Glipizide 10 Mg Tablet, 5 MG PO DAILY, (Reported) TAKES 1/2 (10MG) TABLET Insulin Aspart 300 Units/3 Ml Solution, SQ TIDAC, (Reported) Insulin Determir 1,000 Units/10 Ml Soln, 12 UNITS SQ HS Prescribed by: CLAIRE KAMARA on 10/04/19 1257 Metoprolol Succinate 25 Mg Tab.er.24h, 25 MG PO DAILY PRN for BLOOD PRESSURE For systolic bp > 150 Prescribed by: CLAIRE KAMARA on 10/04/19 1255 Multivitamin 1 Each Tablet, 1 TAB PO DAILY, (Reported) Olmesartan Medoxomil 40 Mg Tablet, 40 MG PO DAILY, (Reported) [place]-3/Dha/Epa/Fish Oil 1 Each Capsule, 1,000 MG PO BID, (Reported) Pantoprazole Sodium 40 Mg Tablet.dr, 40 MG PO DAILY, (Reported) Rivaroxaban 20 Mg Tablet, 20 MG PO HS, (Reported) Tamsulosin HCl 0.4 Mg Cap, 0.8 MG PO 1730, (Reported) TAKES 2 (0.4MG) CAPSULES Patient Home Medication List Home Medication List Reviewed: Yes Review of Systems Review of Systems Constitutional: No chills, No diaphoresis EENTM: No ear discharge, No ear pain Respiratory: No cough, No phlegm, No short of breath Cardiovascular: see HPI; No chest pain; Hx of Intervention; No palpitations Gastrointestinal: No abdominal pain, No constipation; diarrhea Genitourinary: No discharge, No dysuria Musculoskeletal: No joint pain, No joint swelling All Other Systems Reviewed Negative Unless Noted: Yes Past Ovftkta-Aietzt-Hfcaxn Hx Patient Social History Alcohol Use: Denies Use Recreational Drug Use: No Smoking Status: Former Smoker Type Used: Pipe Former Smoker, Quit: Oct 12, 2018 2nd Hand Smoke Exposure: No Recent Foreign Travel: No Contact w/Someone Who Travel: No Recent Hopitalizations: Yes Immunizations Up To Date PED Vaccines UTD: Yes Date of Pneumonia Vaccine: Aug 17, 2016 Date of Influenza Vaccine: Aug 03, 2019 Seasonal Allergies Seasonal Allergies: No Past Medical History Surgeries: Yes (PACEMAKER) Coronary Stent Respiratory: No Cardiac: Yes (X9 STENTS/PACEMAKER) Atrial Fibrillation, High Cholesterol, Hypertension, Peripheral Vascular Neurological: Yes Dementia, Parkinson's Disease, Stroke Genitourinary: Yes ([employer]) Benign Prostatic Hyperpl, Prostate Problems Gastrointestinal: No Musculoskeletal: No Endocrine: Yes Diabetes, Insulin dep HEENT: No Cancer: No Psychosocial: No Integumentary: Yes (dryness) Psoriasis Blood Disorders: No Family Medical History Alcoholism G8 BROTHER ( at age 46) FH: heart disease 19 FATHER Hypertension 19 MOTHER Myocardial infarction 19 FATHER ( at age 60) Physical Exam-Suspected Sepsis Physical Exam Vital Signs Vital Signs - First Documented 10/22/19 15:32 Temp 33.7 Pulse 64 Resp 12 B/P (MAP) 94/62 (73) Pulse Ox 93 O2 Delivery Room Air Capillary Refill : Height, Weight, BMI Height: 6'0.00" Weight: 177lbs. 9.6oz. 80.733106xg; 22.53 BMI Method:Stated General Appearance: Chronically ill, Mild Distress Eyes: Bilateral Eye Normal Inspection, Bilateral Eye PERRL, Bilateral Eye EOMI HEENT: PERRL/EOMI, TMs Normal, Normal ENT Inspection, Other (upper molars. Mucosa is mildly dry.) Neck: Full Range of Motion, Normal Inspection, Non Tender, Supple Respiratory: Chest Non Tender, Lungs Clear, Normal Breath Sounds, No Accessory Muscle Use, No Respiratory Distress Cardiovascular: Regular Rate, Rhythm, No Edema, Normal Peripheral Pulses Gastrointestinal: Normal Bowel Sounds, No Organomegaly, Non Tender, Soft Genital/Rectal: Normal Genital Exam Extremity: Normal Capillary Refill, Normal Inspection, Normal Range of Motion, Non Tender Neurologic/Psychiatric: Alert, No Motor/Sensory Deficits, Disoriented (oriented to person and place but not time or situation. GCS 14, at baseline.) Skin: normal color, warm/dry Lymphatic: No Adenopathy Focused Exam Sepsis Stage: Septic Shock Possible Source: GI Tract/Intra-Abdominal Lactate Level 10/22/19 15:40: Lactic Acid Level 2.21*H 10/22/19 17:44: Lactic Acid Level 0.86 Time of Focused Exam: 19:00 Respiratory: Lungs Clear, Normal Breath Sounds, No Accessory Muscle Use, No Respiratory Distress Cardiovascular: Regular Rate, Rhythm, No Edema, Normal Peripheral Pulses Capillary Refill: Greater Than 3 Seconds Peripheral Pulses: 2+ Radial Pulses (R), 2+ Radial Pulses (L) Skin: cool, pallor Lactic Acid Level Laboratory Tests Test 10/22/19 15:40 10/22/19 17:44 Lactic Acid Level 2.21 MMOL/L (0.50-2.00) *H 0.86 MMOL/L (0.50-2.00) Within 3hrs of presentation: Admin fluids, Admin ABX, Blood cultures prior to ABX's, Focus exam, Lactate level, Vasopressin therapy Progress/Results/Core Measures Suspected Sepsis SIRS Temperature: Pulse: Respiratory Rate: Laboratory Tests 10/22/19 15:40: White Blood Count 12.1H Blood Pressure / Mean: 10/22/19 15:40: Lactic Acid Level 2.21*H 10/22/19 17:44: Lactic Acid Level 0.86 Laboratory Tests 10/22/19 15:40: Creatinine 1.91H, INR Comment 4.5H, Platelet Count 198, Total Bilirubin 0.6 Results/Orders Lab Results Laboratory Tests Test 10/22/19 15:40 10/22/19 15:45 10/22/19 16:00 10/22/19 17:44 Range/Units White Blood Count 12.1 H 4.3-11.0 10^3/uL Red Blood Count 3.33 L 4.35-5.85 10^6/uL Hemoglobin 10.4 L 13.3-17.7 G/DL Hematocrit 33 L 40-54 % Mean Corpuscular Volume 100 H 80-99 FL Mean Corpuscular Hemoglobin 31 25-34 PG Mean Corpuscular Hemoglobin Concent 31 L 32-36 G/DL Red Cell Distribution Width 15.9 H 10.0-14.5 % Platelet Count 198 130-400 10^3/uL Mean Platelet Volume 11.6 H 7.4-10.4 FL Neutrophils (%) (Auto) 76 H 42-75 % Lymphocytes (%) (Auto) 13 12-44 % Monocytes (%) (Auto) 10 0-12 % Eosinophils (%) (Auto) 1 0-10 % Basophils (%) (Auto) 0 0-10 % Neutrophils # (Auto) 9.2 H 1.8-7.8 X 10^3 Lymphocytes # (Auto) 1.5 1.0-4.0 X 10^3 Monocytes # (Auto) 1.2 H 0.0-1.0 X 10^3 Eosinophils # (Auto) 0.1 0.0-0.3 10^3/uL Basophils # (Auto) 0.0 0.0-0.1 10^3/uL Prothrombin Time 45.1 *H 12.2-14.7 SEC INR Comment 4.5 H 0.8-1.4 Activated Partial Thromboplast Time 60 H 24-35 SEC Sodium Level 140 135-145 MMOL/L Potassium Level 3.6 3.6-5.0 MMOL/L Chloride Level 105 98-107 MMOL/L Carbon Dioxide Level 23 21-32 MMOL/L Anion Gap 12 5-14 MMOL/L Blood Urea Nitrogen 34 H 7-18 MG/DL Creatinine 1.91 H 0.60-1.30 MG/DL Estimat Glomerular Filtration Rate 34 BUN/Creatinine Ratio 18 Glucose Level 182 H 70-105 MG/DL Lactic Acid Level 2.21 *H 0.86 0.50-2.00 MMOL/L Calcium Level 8.8 8.5-10.1 MG/DL Corrected Calcium 9.8 8.5-10.1 MG/DL Total Bilirubin 0.6 0.1-1.0 MG/DL Aspartate Amino Transf (AST/SGOT) 13 5-34 U/L Alanine Aminotransferase (ALT/SGPT) < 6 0-55 U/L Alkaline Phosphatase 154 H 40-136 U/L Troponin I 0.075 H <0.028 NG/ML Total Protein 5.5 L 6.4-8.2 GM/DL Albumin 2.7 L 3.2-4.5 GM/DL Glucometer 197 H 70-110 MG/DL Urine Color YELLOW Urine Clarity SL CLOUDY Urine pH 5.0 5-9 Urine Specific [place] 1.025 H 1.016-1.022 Urine Protein 1+ H NEGATIVE Urine Glucose (UA) 1+ H NEGATIVE Urine Ketones TRACE H NEGATIVE Urine Nitrite NEGATIVE NEGATIVE Urine Bilirubin NEGATIVE NEGATIVE Urine Urobilinogen 0.2 < = 1.0 MG/DL Urine Leukocyte Esterase NEGATIVE NEGATIVE Urine RBC (Auto) NEGATIVE NEGATIVE Urine RBC NONE /HPF Urine WBC NONE /HPF Urine Squamous Epithelial Cells 0-2 /HPF Urine Crystals NONE /LPF Urine Bacteria RARE /HPF Urine Casts NONE /LPF Urine Mucus NEGATIVE /LPF Urine Culture Indicated CULTURE PENDING Micro Results Microbiology 10/22/19 Influenza Types A,B Antigen (JANA) - Final, Complete My Orders Orders - JESS DAWKINS Cbc With Automated Diff (10/22/19 15:49) Comprehensive Metabolic Panel (10/22/19 15:49) Blood Culture (10/22/19 15:49) Sputum Culture (10/22/19 15:49) Urinalysis (10/22/19 15:49) Urine Culture (10/22/19 15:49) Protime With Inr (10/22/19 15:49) Partial Thromboplastin Time (10/22/19 15:49) Chest 1 View, Ap/Pa Only (10/22/19 15:49) Ed Iv/Invasive Line Start (10/22/19 15:49) Ed Iv/Invasive Line Start (10/22/19 15:49) Ekg Tracing (10/22/19 15:49) Troponin I (10/22/19 15:49) Vital Signs Adult Sepsis Patie Q15M (10/22/19 15:49) O2 (10/22/19 15:49) Remove Rings In Anticipation O (10/22/19 15:49) Lactic Acid Analyzer (10/22/19 15:49) Influenza A And B Antigens (10/22/19 15:49) Ns Iv 1000 Ml (Sodium Chloride 0.9%) (10/22/19 15:49) Piperacillin Sodium/Tazobactam (Zosyn Vi (10/22/19 16:00) Vancomycin Injection (Vancomycin Injecti (10/22/19 16:00) Ed Iv/Invasive Line Start (10/22/19 15:49) Ns Iv 1000 Ml (Sodium Chloride 0.9%) (10/22/19 15:49) Catheter(Urinary) Insert & Ass 03,15 (10/22/19 15:49) Stool Culture (10/22/19 15:49) Occult Blood Stool (10/22/19 15:49) C Difficile Ag + Toxin A/B. (10/22/19 15:49) Fecal Wbc (10/22/19 15:49) Ct Abdomen/Pelvis Wo (10/22/19 16:51) Norepinephrine 4 Mg/250 Ml Ns (Norepinep (10/22/19 17:00) Medications Given in ED Current Medications Medications Dose Ordered Sig/Amber Route Start Time Stop Time Status Last Admin Dose Admin Piperacillin Sod/ Tazobactam Sod 4.5 gm/Sodium Chloride 100 ml @ 200 mls/hr ONCE ONCE IV 10/22/19 16:00 10/22/19 16:29 DC 10/22/19 17:12 200 MLS/HR Vancomycin HCl 1000 mg/Sodium Chloride 250 ml @ 250 mls/hr ONCE ONCE IV 10/22/19 16:00 10/22/19 16:59 DC 10/22/19 17:13 250 MLS/HR Vital Signs/I&O 10/22/19 15:32 Temp 33.7 Pulse 64 Resp 12 B/P (MAP) 94/62 (73) Pulse Ox 93 O2 Delivery Room Air Capillary Refill : Progress Note #1: Time: 16:02 Progress Note Dehydration secondary to Bowel obstruction, ileitis, diverticulitis, C. difficile colitis, infectious colitis, other? Septic workup. We'll start with 2 L of warm normal saline as he is cold. We'll get a rectal temperature probe as he reads [address] the armpit. CT of the abdomen pelvis. Blood sugar is 90. He answers questions but is not cognizant of time, place, or situation at his baseline. He has dementia. GCS 14 Progress Note #2: Time: 19:13 Progress Note Patient stable after placement of a central line and Levophed at 0.04 mcg/kg/m. We elected just give fluids and go straight to pressors because ultrasound demonstrated a plump internal jugular and good central venous return. Current blood pressure is 111/50. Dr. Gonzalez is here to see the patient. We decided the patient was prior to this is not stable enough to go to CT and decided to admit and readdress abdominal in the morning. He is not having any acute discomfort does not have a surgical abdomen. His hypothermia is improving on the bear hugger. ECG Initial ECG Impression Date: Oct 22, 2019 Initial ECG Impression Time: 15:42 Initial ECG Rate: 104 Initial ECG Rhythm: Normal Sinus Initial ECG Intervals: QT (621) Initial ECG Impression: Nonspecific Changes Initial ECG Comparisson: Unchanged Comment Pacemaker with a non-capture due to atrial fibrillation. No clinically relevant ST elevation or depression. Diagnostic Imaging Diagonstic Imaging: Xray Plain Films/CT/US/NM/MRI: chest (1v) Comments NAME: WEI PARADA [facility] REC#: [id number] PT STATUS: REG ER : 1940 PHYSICIAN: JESS DAWKINS MD ADMIT DATE: 10/22/19/ER Draft Date of Exam:10/22/19 CHEST 1 VIEW, AP/PA ONLY INDICATION: Unresponsive. COMPARISON: 10/03/2019. EXAMINATION: Single frontal radiographic view of the chest was obtained. FINDINGS: Interval development of large right-sided pleural effusion and near complete opacification of the right hemithorax. There is some residual aeration in the right upper lobe. Left lung is relatively clear. There is no large effusion on the left. No pneumothorax is seen on either side. Cardiac silhouette is partially obscured, but does appear to be enlarged. Prominent vasculature is within normal limits. Right internal jugular central venous catheter is seen with tip projecting over the SVC. Left-sided dual-lead pacemaker is also present. Osseous structures show no new acute abnormality. IMPRESSION: 1. Interval development of large right-sided pleural effusion, as described above. 2. Probable mild cardiomegaly, although there may be some leftward mass effect secondary to the effusion. Dictated on workstation # [id number] Dict: 10/22/19 171 Trans: 10/22/19 171 [facility] [id number] Interpreted by: MICHAEL ALMAGUER MD Electronically signed by: Reviewed: Reviewed by Me Critical Care Note Critical Care Start Time: 16:30 Stop Time: 17:00 Total Time (minutes) 30 m Progress Patient is DO NOT RESUSCITATE. He is hypothermic, appears dry clinically and has a history of diarrhea and laxatives or infection related to the recent hospital stay for pneumonia and broad-spectrum antibiotics. We've ordered stool studies and were unable to get good peripheral IV access so we went ahead and opted for central line. He has a soft blood pressure of 90/48 with a map of 64. We put him in the minor Trendelenburg and has kept his map above 60. Plan to get a CT without IV contrast of the abdomen pelvis because his GFR/creatinine do not support the use of IV contrast this time. We have kept the family and the loop. Plan is to start Levophed 0.2 mcg/kg/m at first. Goal is to keep his map just above 65. So sent and vancomycin were initially selected with a goal of treating intra-abdominal infectious colitis. Shortly after he got. Oxygen sats started to get the 90-94 range. 2 L of oxygen is kept in the upper end of the 90s. Departure Communication (Admissions) Time/Spoke to Admitting Phy: 18:25 Discussed case lab imaging findings with Dr. Gonzalez and she is to admit the patient to the ICU. Pulmonology consult. Time/Spoke to Consulting Phy: 19:10 Discussed case lab imaging findings with Dr. Christie and he agrees to consult on the patient. Impression Primary Impression: Infectious colitis Additional Impressions: Septic shock Hypothermia Qualified Codes: T68.XXXA - Hypothermia, initial encounter Disposition: ADMITTED INPATIENT Condition: Critical Admissions Decision to Admit Reason: Admit from ER (General) Decision to Admit/Date: Oct 22, 2019 Time/Decision to Admit Time: 17:30 Departure-Patient Inst. Referrals: DENIZ KENT DO (PCP/Family) Primary Care Physician JESS DAWKINS Oct 22, 2019 15:58
[2019-10-22] MEDS ORDERED: PIPERACILLIN SODIUM/TAZOBACTAM 4.5 GM in NS (IVPB) 100 ML IV ONE (16:00)
[2019-10-22] MEDS ORDERED: VANCOMYCIN INJECTION 1,000 MG in NS (IVPB) 250 ML IV ONE (16:00)
[2019-10-22 16:07] LABS: BASOPHILS % (AUTO) 0 % (0-10); EOSINOPHILS # (AUTO) 0.1 10^3/uL (0.0-0.3); EOSINOPHILS % (AUTO) 1 % (0-10); HEMATOCRIT 33 % (40-54); HEMOGLOBIN 10.4 G/DL (13.3-17.7); LYMPHOCYTES # (AUTO) 1.5 X 10^3 (1.0-4.0); LYMPHOCYTES % (AUTO) 13 % (12-44); MEAN CORPUSCULAR HEMOGLOBIN 31 PG (25-34); MEAN CORPUSCULAR HGB CONC 31 G/DL (32-36); MEAN CORPUSCULAR VOLUME 100 FL (80-99); MEAN PLATELET VOLUME 11.6 FL (7.4-10.4); MONOCYTES # (AUTO) 1.2 X 10^3 (0.0-1.0); MONOCYTES % (AUTO) 10 % (0-12); NEUTROPHILS # (AUTO) 9.2 X 10^3 (1.8-7.8); NEUTROPHILS % (AUTO) 76 % (42-75); PLATELET COUNT 198 10^3/uL (130-400); RED CELL DISTRIBUTION WIDTH 15.9 % (10.0-14.5); WHITE BLOOD COUNT 12.1 10^3/uL (4.3-11.0)
[2019-10-22 16:10] LABS: BILIRUBIN,URINE NEGATIVE (NEGATIVE); CLARITY,URINE SL CLOUDY; COLOR,URINE YELLOW; GLUCOSE, URINE (UA) 1+ (NEGATIVE); KETONES,URINE TRACE (NEGATIVE); LEUKOCYTE ESTERASE ,URINE NEGATIVE (NEGATIVE); NITRITE,URINE NEGATIVE (NEGATIVE); PROTEIN,URINE 1+ (NEGATIVE)
[2019-10-22 16:21] LABS: ALANINE AMINOTRANSFERASE < 6 U/L (0-55); ALBUMIN 2.7 GM/DL (3.2-4.5); ALKALINE PHOSPHATASE 154 U/L (40-136); BILIRUBIN,TOTAL 0.6 MG/DL (0.1-1.0); BUN/CREATININE RATIO 18; CALCIUM 8.8 MG/DL (8.5-10.1); CARBON DIOXIDE 23 MMOL/L (21-32); CHLORIDE 105 MMOL/L (98-107); CREATININE SERUM 1.91 MG/DL (0.60-1.30); GFR ESTIMATED 34; GLUCOSE 182 MG/DL (70-105); INR 4.5 (0.8-1.4); POTASSIUM 3.6 MMOL/L (3.6-5.0); SODIUM 140 MMOL/L (135-145); TOTAL PROTEIN 5.5 GM/DL (6.4-8.2)
[2019-10-22 16:24] LABS: PROTHROMBIN TIME PATIENT 45.1 SEC (12.2-14.7)
[2019-10-22 16:35] LABS: BACTERIA,URINE RARE /HPF; SQUAMOUS EPITHELIAL CELL,UR 0-2 /HPF
[2019-10-22] MEDS: NOREPINEPHRINE 4 MG/250 ML NS 250 ML IV SCH ×2 (17:11→21:58)
--- NOTE | 2019-10-22 17:11 | NUR ---
NOREPINEPHRINE STARTED AT 0.02MCG/KG/MIN ORDERED
--- NOTE | 2019-10-22 17:15 | Diagnostic Imaging Report ---
INDICATION: Unresponsive. COMPARISON: 10/03/2019. EXAMINATION: Single frontal radiographic view of the chest was obtained. FINDINGS: Interval development of large right-sided pleural effusion and near complete opacification of the right hemithorax. There is some residual aeration in the right upper lobe. Left lung is relatively clear. There is no large effusion on the left. No pneumothorax is seen on either side. Cardiac silhouette is partially obscured, but does appear to be enlarged. Prominent vasculature is within normal limits. Right internal jugular central venous catheter is seen with tip projecting over the SVC. Left-sided dual-lead pacemaker is also present. Osseous structures show no new acute abnormality. IMPRESSION: 1. Interval development of large right-sided pleural effusion, as described above. 2. Probable mild cardiomegaly, although there may be some leftward mass effect secondary to the effusion. Dictated by: Dictated on workstation # [id number]
--- NOTE | 2019-10-22 19:37 | History & Physical-Hospitalist ---
History of Present Illness HPI/Chief Complaint Pt is a 78yoCM known to me from recent admission who presented to the ER due to decreased level of consciousness and diarrhea. He is quite lethargic provided a history like quite low who does. She states that one week ago he noticed that he was constipated and despite homemade remedy for 2 days that did not help. So 5 days ago he called his primary care doctor, Dr. Damon, who recommended Mylanta. They tried this and on the next day he started having profuse watery diarrhea. This continued for 3 more days and finally started to improve yesterday. He was doing okay but not his normal self yesterday. Today he did not eat very much, was more lethargic, and she noticed bleeding from sores on his bottom. She called Dr. Damon who advised her to bring him to the emergency department. On arrival to the ER he was found hypothermic with a temperature 33C and hypotensive. He was placed bearhuggerher to warm him, a central line was placed for pressors, and he is being admitted to the ICU. Source: patient Date Seen 10/22/19 Time Seen by a Provider: 19:15 Attending Physician Adolfo Gonzalez MD PCP Mando Damon DO Referring Physician Date of Admission Oct 22, 2019 at 19:15 Home Medications & Allergies Home Medications Reviewed patient Home Medication Reconciliation performed by pharmacy medication reconciliations home service technician and/or nursing. Patients Allergies have been reviewed. Allergies Allergies Coded Allergies No Known Drug Allergies (Vifktguqti87/26/18) Past Efrafvf-Yeqjin-Pobcme Hx Past Med/Social Hx: Reviewed Nursing Past Med/Soc Hx Patient Social History Alcohol Use: Denies Use Recreational Drug Use: No Smoking Status: Former Smoker Former Smoker, Quit: Oct 12, 2018 Type Used: Pipe 2nd Hand Smoke Exposure: No Recent Foreign Travel: No Contact w/other who traveled: No Recent Hopitalizations: Yes (PNEM) Recent Infectious Disease Expo: No Immunizations Up To Date Pediatric: Yes Date of Pneumonia Vaccine: Aug 17, 2016 Date of Influenza Vaccine: Aug 03, 2019 Seasonal Allergies Seasonal Allergies: No Past Medical History Surgeries: Coronary Stent Respiratory: Pneumonia Cardiac: Atrial Fibrillation, High Cholesterol, Hypertension, Peripheral Vascular Neurological: Dementia, Parkinson's Disease, Stroke Genitourinary: Benign Prostatic Hyperpl, Prostate Problems Endocrine: Diabetes, Insulin dep Skin/Integumentary: Psoriasis History of Blood Disorders: No Family History Alcoholism G8 BROTHER ( at age 46) FH: heart disease 19 FATHER Hypertension 19 MOTHER Myocardial infarction 19 FATHER ( at age 60) Review of Systems ROS-Unable to Obtain: unresponsive Constitutional: see HPI Physical Exam Physical Exam Vital Signs Vital Signs - First Documented 10/22/19 10/22/19 10/22/19 15:32 20:45 20:58 Temp 33.7 Pulse 64 Resp 12 B/P (MAP) 94/62 (73) Pulse Ox 93 O2 Delivery Room Air O2 Flow Rate 6.00 FiO2 21 Capillary Refill : Greater Than 3 Seconds Height, Weight, BMI Height: 6'0.00" Weight: 177lbs. 9.6oz. 80.072665dc; 24.00 BMI Method:Stated General Appearance: Chronically ill, Moderate Distress, Other (lethargic) HEENT: PERRL/EOMI, Other (dry mucus membranes) Neck: No Thyromegaly; Other (central line in place) Respiratory: No Respiratory Distress, Decreased Breath Sounds Cardiovascular: Regular Rate, Rhythm, No Murmur Gastrointestinal: Normal Bowel Sounds, Soft; No Guarding, No Rebound Extremity: Pedal Edema (trace non pitting), Slow Capillary Refill Neurologic/Psychiatric: Other (arouses to physical stimuli, ) Skin: Pallor Results Results/Procedures Labs Laboratory Tests 10/22/19 15:40 10/23/19 03:20 Patient resulted labs reviewed. Imaging: Reviewed Imaging Report Imaging Date of Exam:10/22/19 CHEST 1 VIEW, AP/PA ONLY INDICATION: Unresponsive. COMPARISON: 10/03/2019. EXAMINATION: Single frontal radiographic view of the chest was obtained. FINDINGS: Interval development of large right-sided pleural effusion and near complete opacification of the right hemithorax. There is some residual aeration in the right upper lobe. Left lung is relatively clear. There is no large effusion on the left. No pneumothorax is seen on either side. Cardiac silhouette is partially obscured, but does appear to be enlarged. Prominent vasculature is within normal limits. Right internal jugular central venous catheter is seen with tip projecting over the SVC. Left-sided dual-lead pacemaker is also present. Osseous structures show no new acute abnormality. IMPRESSION: 1. Interval development of large right-sided pleural effusion, as described above. 2. Probable mild cardiomegaly, although there may be some leftward mass effect secondary to the effusion. Assessment/Plan Admission Diagnosis Septic Shock Admission Status: Inpatient Order (span 2 midnights) Reason for Inpatient Admission: On pressors Assessment and Plan Septic Shock Lactic elevated Hypothermic with leukocytosis CXR with large pleural effusion and UA clean Vanc and Zosyn Parkinson's Disease Dementia Off from baseline, normally pleasantly confused but conversant Resume meds when mentation improves CAD HTN PAD Resume meds when mentation improves Pressure Ulcers Reported per family Wound Care Consult ADOLFO GONZALEZ MD Oct 22, 2019 19:37
[2019-10-22] MEDS ORDERED: NS IV 500 ML 500 ML ONE (19:56)
[2019-10-22] MEDS ORDERED: NS IV 500 ML 500 ML IV SCH (20:15)
[2019-10-22] MEDS: NS IV 1000 ML 1,000 ML IV SCH (20:45)
[2019-10-22] MEDS ORDERED: ACETAMINOPHEN 500 MG TAB (TYLENOL) PO PRN (20:45)
[2019-10-22] MEDS ORDERED: ONDANSETRON 4 MG/2 ML (SDV) Z0FRAN IV PRN (20:45)
[2019-10-22] MEDS ORDERED: PROMETHAZINE INJ 25 MG/ML (PHENERGAN) AMP IV PRN (20:45)
[2019-10-22] MEDS ORDERED: EPINEPHrine 1 MG INJECTION 2 MG in NS (IVPB) 250 ML IV SCH (21:00)
[2019-10-22] MEDS ORDERED: VANCOMYCIN 500 MG/NS 100 ML IV ONE ×2 (21:00)
[2019-10-22] MEDS ORDERED: RT-ALBUTEROL/IPRATROPIUM 3 ML (DUONEB) VIAL INH PRN (21:15)
[2019-10-22] MEDS: VASOPRESSIN INJECTION 20 UNIT in NORMAL SALINE 100 ML IV SCH (21:58)
[2019-10-22] MEDS ORDERED: PIPERACILLIN/TAZOBACTAM (BULK) 4.5 GM in NS (IVPB) 100 ML IV SCH (22:00)
[2019-10-22] MEDS: CEFEPIME INJECTION 2,000 MG in WATER (STERILE) FOR INJECTION 20 ML IV SCH (22:49)
[2019-10-23] VITALS (24 sets, daily range): BP systolic 94–152; BP diastolic 40–89
[2019-10-23] MEDS: NS IV 1000 ML 1,000 ML IV SCH ×6 (01:00→18:42)
[2019-10-23] MEDS: RT-ALBUTEROL/IPRATROPIUM 3 ML (DUONEB) VIAL INH SCH ×4 (02:43→19:29)
[2019-10-23 03:28] LABS: BASOPHILS % (AUTO) 0 % (0-10); EOSINOPHILS # (AUTO) 0.1 10^3/uL (0.0-0.3); EOSINOPHILS % (AUTO) 1 % (0-10); HEMATOCRIT 27 % (40-54); HEMOGLOBIN 8.4 G/DL (13.3-17.7); LYMPHOCYTES # (AUTO) 0.9 X 10^3 (1.0-4.0); LYMPHOCYTES % (AUTO) 10 % (12-44); MEAN CORPUSCULAR HGB CONC 31 G/DL (32-36); MEAN CORPUSCULAR VOLUME 101 FL (80-99); MEAN PLATELET VOLUME 10.9 FL (7.4-10.4); MONOCYTES # (AUTO) 0.7 X 10^3 (0.0-1.0); MONOCYTES % (AUTO) 8 % (0-12); NEUTROPHILS # (AUTO) 7.3 X 10^3 (1.8-7.8); NEUTROPHILS % (AUTO) 81 % (42-75); PLATELET COUNT 190 10^3/uL (130-400); RED CELL DISTRIBUTION WIDTH 15.9 % (10.0-14.5)
[2019-10-23 03:39] LABS: MEAN CORPUSCULAR HEMOGLOBIN 31 PG (25-34)
[2019-10-23 03:54] LABS: ALBUMIN 2.3 GM/DL (3.2-4.5); BILIRUBIN,TOTAL 0.5 MG/DL (0.1-1.0); CALCIUM 7.9 MG/DL (8.5-10.1); CREATININE SERUM 1.78 MG/DL (0.60-1.30); MAGNESIUM 1.9 MG/DL (1.6-2.4); PHOSPHORUS 3.9 MG/DL (2.3-4.7); POTASSIUM 3.2 MMOL/L (3.6-5.0); TOTAL PROTEIN 4.7 GM/DL (6.4-8.2)
[2019-10-23] MEDS: POTASSIUM CL 10MEQ/50ML IVPB 50 ML IV SCH ×3 (04:30→06:54)
[2019-10-23] MEDS: NOREPINEPHRINE 4 MG/250 ML NS 250 ML IV SCH ×6 (04:30→21:22)
[2019-10-23] MEDS: KCL 20 MEQ TAB (K-DUR) PO SCH (04:32)
[2019-10-23] MEDS: MAGNESIUM 1 GM/100 ML IVPB 100 ML IV SCH (04:32)
[2019-10-23] MEDS: VASOPRESSIN INJECTION 20 UNIT in NORMAL SALINE 100 ML IV SCH ×3 (05:18→21:22)
--- NOTE | 2019-10-23 05:48 | Pulmonary Consultation ---
History of Present Illness History of Present Illness Date Seen by Provider: Oct 23, 2019 Time Seen by Provider: 05:43 Date of Admission Allergies and Home Medications Allergies Coded Allergies: No Known Drug Allergies (Unverified , 09/06/18) Home Medications Amiodarone HCl 200 Mg Tablet, 200 MG PO DAILY, (Reported) Amlodipine Besylate 10 Mg Tablet, 5 MG PO DAILY PRN for BLOOD PRESSURE >150, (Reported) TAKES 1/2 (10MG) TABLET Aspirin 81 Mg Tablet.dr, 81 MG PO HS, (Reported) Atorvastatin Calcium 40 Mg Tablet, 40 MG PO HS, (Reported) Bisacodyl 5 Mg Tablet.dr, 10 MG PO HS PRN for CONSTIPATION-4TH LINE, (Reported) Carbidopa/Levodopa 1 Each Tablet.er, 2 TAB PO 0800, (Reported) TAKES 2 TABS IN THE MORNING, 1 TAB AT 1300 AND 1 TAB AT BEDTIME Carbidopa/Levodopa 1 Each Tablet.er, 1 TAB PO 1300,2100, (Reported) TAKES 2 TABS IN THE MORNING, 1 TAB AT 1300 AND 1 TAB AT BEDTIME Clopidogrel Bisulfate 75 Mg Tablet, 75 MG PO DAILY, (Reported) Gabapentin 300 Mg Capsule, 300 MG PO BID, (Reported) Glipizide 10 Mg Tablet, 5 MG PO DAILY, (Reported) TAKES 1/2 (10MG) TABLET Insulin Aspart 300 Units/3 Ml Solution, SQ TIDAC, (Reported) Insulin Determir 1,000 Units/10 Ml Soln, 12 UNITS SQ HS Prescribed by: CLAIRE KAMARA on 10/04/19 1257 Metoprolol Succinate 25 Mg Tab.er.24h, 25 MG PO DAILY PRN for BLOOD PRESSURE For systolic bp > 150 Prescribed by: CLAIRE KAMARA on 10/04/19 1255 Multivitamin 1 Each Tablet, 1 TAB PO DAILY, (Reported) Olmesartan Medoxomil 40 Mg Tablet, 40 MG PO DAILY, (Reported) Spencer-3/Dha/Epa/Fish Oil 1 Each Capsule, 1,000 MG PO BID, (Reported) Pantoprazole Sodium 40 Mg Tablet.dr, 40 MG PO DAILY, (Reported) Rivaroxaban 20 Mg Tablet, 20 MG PO HS, (Reported) Tamsulosin HCl 0.4 Mg Cap, 0.8 MG PO 1730, (Reported) TAKES 2 (0.4MG) CAPSULES Past Nekhvhq-Drgvbz-Bizdye Hx Past Med/Social Hx: Reviewed Nursing Past Med/Soc Hx Patient Social History Alcohol Use: Denies Use Recreational Drug Use: No Smoking Status: Former Smoker Type Used: Pipe Former Smoker, Quit: Oct 12, 2018 2nd Hand Smoke Exposure: No Recent Foreign Travel: No Contact w/Someone Who Travel: No Recent Infectious Disease Expo: No Recent Hopitalizations: Yes ([facility]) Physical Abuse: No Sexual Abuse: No Immunizations Up To Date PED Vaccines UTD: Yes Date of Pneumonia Vaccine: Aug 17, 2016 Date of Influenza Vaccine: Aug 03, 2019 Seasonal Allergies Seasonal Allergies: No Past Medical History Surgeries: Yes (PACEMAKER) Coronary Stent Respiratory: No Cardiac: Yes (X9 STENTS/PACEMAKER) Atrial Fibrillation, High Cholesterol, Hypertension, Peripheral Vascular Neurological: Yes Dementia, Parkinson's Disease, Stroke Genitourinary: Yes ([employer]) Benign Prostatic Hyperpl, Prostate Problems Gastrointestinal: No Musculoskeletal: No Endocrine: Yes Diabetes, Insulin dep HEENT: No Cancer: No Psychosocial: No Integumentary: Yes (dryness) Psoriasis Blood Disorders: No Family Medical History Alcoholism G8 BROTHER ( at age 46) FH: heart disease 19 FATHER Hypertension 19 MOTHER Myocardial infarction 19 FATHER ( at age 60) Sepsis Event Evaluation Height, Weight, BMI Height: 6'0.00" Weight: 177lbs. 9.6oz. 80.808334av; 24.00 BMI Method:Stated Exam Exam Vital Signs Date Time Temp Pulse Resp B/P (MAP) Pulse Ox O2 Delivery O2 Flow Rate FiO2 10/23/19 04:00 97 Nasal Cannula 6.00 10/23/19 03:00 36.8 61 23 104/44 (64) 96 Nasal Cannula 4.00 10/23/19 02:55 Nasal Cannula 4.00 10/23/19 02:54 97 Nasal Cannula 5.50 10/23/19 02:53 Nasal Cannula 5.50 10/23/19 02:00 36.8 61 17 101/52 (68) 96 Nasal Cannula 6.00 10/23/19 01:00 36.7 65 12 122/50 (74) 98 Nasal Cannula 6.00 10/23/19 01:00 65 10/23/19 00:00 97 Nasal Cannula 6.00 10/23/19 00:00 36.6 61 17 96/48 (64) 96 Nasal Cannula 6.00 10/22/19 23:00 36.4 65 11 111/57 (75) 96 Nasal Cannula 6.00 10/22/19 22:00 36.1 60 11 118/56 (76) 96 Nasal Cannula 6.00 10/22/19 21:30 35.9 60 11 98/44 (62) 94 Nasal Cannula 6.00 10/22/19 21:15 35.9 60 13 92/44 (60) 96 Nasal Cannula 6.00 10/22/19 21:03 Nasal Cannula 5.50 10/22/19 21:00 35.8 60 13 108/46 (66) 96 Nasal Cannula 6.00 10/22/19 20:58 35.6 60 93 21 10/22/19 20:51 61 10/22/19 20:45 35.8 60 14 109/49 (69) 92 Nasal Cannula 6.00 10/22/19 19:55 35.6 60 13 111/51 (73) 100 Nasal Cannula 10/22/19 15:32 33.7 64 12 94/62 (73) 93 Room Air I & O 10/23/19 07:00 Intake Total 3470 ml Output Total 425 ml Balance 3045 ml Height & Weight Height: 6'0.00" Weight: 177lbs. 9.6oz. 80.579360nf; 24.00 BMI Method:Stated General Appearance: Chronically ill, Moderate Distress, Other (lethargic) HEENT: PERRL/EOMI, Other (dry mucus membranes) Neck: No Thyromegaly; Other (central line in place) Respiratory: Lungs Clear, No Respiratory Distress Cardiovascular: Regular Rate, Rhythm, No Murmur Capillary Refill: Greater Than 3 Seconds Peripheral Pulses: 2+ Radial Pulses (R), 2+ Radial Pulses (L) Extremity: Pedal Edema (trace non pitting), Slow Capillary Refill Neurologic/Psychiatric: Other (arouses to physical stimuli, ) Skin: Pallor Lymphatic: No Adenopathy Results Lab Laboratory Tests 10/22/19 15:40 10/23/19 03:20 Assessment/Plan Assessment/Plan Septic shock -Pt is a DNR/DNI -Vanco/Zosyn Large pleural right effusion -Will do thoracentesis if consent is obtained. 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 -He will wake up with heavy stimulation only CAD with pacemaker -Pt was on Plavix, Xarelto, and ASA HTN PAD Pressure Ulcers Wound Care Consult ELIEL YANES DO Oct 23, 2019 05:48
[2019-10-23 07:07] LABS: INR 3.2 (0.8-1.4); PROTHROMBIN TIME PATIENT 34.3 SEC (12.2-14.7)
--- NOTE | 2019-10-23 08:31 | Diagnostic Imaging Report ---
INDICATION: Septic shock. TECHNIQUE: Single view chest 2:31 AM. CORRELATION STUDY: 10/22/2019 FINDINGS: There is progressive increasing opacification through the majority of the right hemithorax. Very small amount of pneumatized lung is noted centrally. Left lung demonstrates perhaps minimal atelectasis or infiltrate at its base. Heart size and mediastinal structures are largely obscured but do appear to be enlarged but stable. Vasculature appears increased in severity. Right IJ central line and left-sided pacemaker remain present. IMPRESSION: 1. Progressive opacification of the majority of the right hemithorax likely a combination of effusion along with consolidated collapsed right lung. 2. Vasculature appears to be increasing in severity as well. Dictated by: Dictated on workstation # [id number]
[2019-10-23] MEDS: CEFEPIME INJECTION 2,000 MG in WATER (STERILE) FOR INJECTION 20 ML IV SCH ×2 (09:09→20:30)
--- NOTE | 2019-10-23 09:31 | Progress Note - Hospitalist ---
Subjective HPI/CC On Admission Date Seen by Provider: Oct 23, 2019 Time Seen by Provider: 09:26 Pt is a 78yoCM known to me from recent admission who presented to the ER due to decreased level of consciousness and diarrhea. He is quite lethargic provided a history like quite low who does. She states that one week ago he noticed that he was constipated and despite homemade remedy for 2 days that did not help. So 5 days ago he called his primary care doctor, Dr. Damon, who recommended Mylanta. They tried this and on the next day he started having profuse watery diarrhea. This continued for 3 more days and finally started to improve yesterday. He was doing okay but not his normal self yesterday. Today he did not eat very much, was more lethargic, and she noticed bleeding from sores on his bottom. She called Dr. Damon who advised her to bring him to the emergency department. On arrival to the ER he was found hypothermic with a temperature 33C and hypotensive. He was placed bearhuggerher to warm him, a ce ntral line was placed for pressors, and he is being admitted to the ICU. Subjective/Events-last exam Pt much more alert today. Responds to questions. When asked how he is feeling he says "good" and then said "I'm going back to sleep." Otherwise didn't participate much in conversation. Focused Exam Lactate Level 10/22/19 15:40: Lactic Acid Level 2.21*H 10/22/19 17:44: Lactic Acid Level 0.86 Time of Focused Exam: 19:00 Objective Exam Vital Signs Vital Signs Date Time Temp Pulse Resp B/P (MAP) Pulse Ox O2 Delivery O2 Flow Rate FiO2 10/23/19 08:00 36.4 60 17 116/53 (74) 99 Nasal Cannula 4.00 10/22/19 20:58 21 Capillary Refill : Greater Than 3 Seconds General Appearance: No Apparent Distress, Chronically ill Respiratory: No Accessory Muscle Use, No Respiratory Distress, Decreased Breath Sounds Cardiovascular: Regular Rate, Rhythm, No Murmur Gastrointestinal: Normal Bowel Sounds, Non Tender, Soft Extremity: Pedal Edema Neurologic/Psychiatric: Alert, Other (easily arouses to verbal stimuli, answers questions appropriately) Results/Procedures Lab Laboratory Tests 10/22/19 15:40 10/23/19 03:20 Patient resulted labs reviewed. Imaging: Reviewed Imaging Report Assessment/Plan Assessment and Plan Assess & Plan/Chief Complaint Septic Shock PNA and pleural effusion Lactic elevated Hypothermic with leukocytosis CXR with large pleural effusion and UA clean Pulm consulted, appreciate recs Consider thoracentesis tomorrow if family agrees Renato and Ayesha Parkinson's Disease Dementia Off from baseline, normally pleasantly confused but conversant Resume meds when mentation improves CAD HTN PAD Resume meds when mentation improves Hold blood thinners for possible thoracentesis Pressure Ulcers Reported per family Wound Care Consult Diagnosis/Problems Diagnosis/Problems (1) CAD (coronary artery disease) (2) Septic shock Status: Acute (3) Infectious colitis Status: Acute (4) Hypothermia Status: Acute Qualifiers: Encounter type: initial encounter Qualified Codes: T68.XXXA - Hypothermia, initial encounter (5) Pneumonia (6) Labile hypertension (7) Orthostasis (8) Falls frequently (9) Parkinsons disease (10) Dementia (11) Constipation Clinical Quality Measures DVT/VTE Risk/Contraindication: Risk Factor Score Per Nursin RFS Level Per Nursing on Admit: 4+=Very High ADOLFO WILLSON MD Oct 23, 2019 09:31
--- NOTE | 2019-10-23 10:24 | Diagnostic Imaging Report ---
PROCEDURE: CT head without contrast. TECHNIQUE: Multiple contiguous axial images were obtained through the brain without the use of intravenous contrast. Auto Exposure Controls were utilized during the CT exam to meet ALARA standards for radiation dose reduction. DATE: October 23, 2019. COMPARISON: CT head and cervical spine September 14, 2019. INDICATION: 78-year-old male, unresponsive. FINDINGS: There is proportional prominence of the ventricles and CSF spaces consistent with moderate cerebral volume loss. There are areas of low-attenuation in the periventricular and subcortical white matter likely reflecting changes of chronic small vessel ischemic disease. There are round low-attenuation foci in the region of the right and left thalamus which may relate to remote prior lacunar infarcts and/or prominent perivascular spaces. Similar appearing foci are also noted in the basal ganglia bilaterally. There is no mass effect or midline shift. There is no acute intracranial hemorrhage. There is no abnormal extra-axial fluid collection. The visualized portions of the paranasal sinuses, mastoid air cells and middle ears are well aerated. IMPRESSION: 1. No identified interval acute intracranial abnormality. 2. Moderate cerebral volume loss with changes of chronic small vessel ischemic disease with probable remote lacunar infarcts in the thalamus and basal ganglia. Dictated by: Dictated on workstation # [id number]
--- NOTE | 2019-10-23 10:35 | Diagnostic Imaging Report ---
PROCEDURE: CT chest, abdomen, and pelvis without contrast. TECHNIQUE: Multiple contiguous axial images were obtained through the chest, abdomen, and pelvis without the use of intravenous contrast. Auto Exposure Controls were utilized during the CT exam to meet ALARA standards for radiation dose reduction. INDICATION: Sepsis. Altered mental status. Unresponsive. COMPARISON: Chest radiograph from earlier today. FINDINGS: CHEST: Large right pleural effusion results in near complete collapse of the right lung. Small left pleural effusion. No pneumothorax. Right IJ CVC tip in the upper SVC. Cardiac pacer. Cardiomegaly. No pericardial effusion. No mediastinal, hilar or axillary lymphadenopathy on this noncontrast exam. Multiple right rib fractures including the lateral right sixth, seventh, eighth, ninth ribs with mild displacement. No acute CT findings in the thoracic spine. ABDOMEN AND PELVIS: The liver, pancreas, spleen, right adrenal, kidneys, collecting systems are negative on this noncontrast exam. Benign fat-containing nodule in the left adrenal gland. The bladder is decompressed by Patel catheter. Normal appendix. No free intraperitoneal air or fluid. No lymphadenopathy. No evidence of bowel obstruction. No acute osseous findings. IMPRESSION: 1. Large right pleural effusion results in near complete collapse of the right lung. Small left pleural effusion. 2. Multiple acute to subacute right rib fractures laterally with mild displacement. 3. No acute CT findings in the abdomen or pelvis on this noncontrast exam. Dictated by: Dictated on workstation # [id number]
--- NOTE | 2019-10-23 11:10 | NUR ---
this nurse notified via telephone of patients decreased urine output, updated on VS. order received to give patient 1L NS bolus x1 now
[2019-10-23] MEDS ORDERED: NS IV 1000 ML 1,000 ML IV SCH (11:15)
[2019-10-23 11:32] LABS: ABG BASE EXCESS -4.8 MMOL/L (-2.5-2.5); ABG OXYGEN SATURATION 96 % (94-100); ABG PCO2 37 MMHG (35-45); ABG PH 7.35 (7.37-7.43); ABG PO2 77 MMHG (79-93); ABG TCO2 21.1 MMOL/L (21.0-31.0)
[2019-10-23 11:34] LABS: ALLENS TEST POSITIVE; INSPIRED O2 4 L; PATIENT TEMP 36.4; VENTILATOR NO
--- NOTE | 2019-10-23 14:20 | NUR ---
This nurse notified of patients low urine output. Will continue to monitor.
[2019-10-23] MEDS: inSUlin ASPART (NovoLOG) 1 UNIT/0.01 ML (CHARGE PER UNIT) SC SCH ×2 (18:42→23:20)
[2019-10-23] MEDS: VANCOMYCIN INJECTION 1,250 MG in NS (IVPB) 250 ML IV SCH (20:39)
[2019-10-24] VITALS (24 sets, daily range): BP systolic 102–178; BP diastolic 49–103
[2019-10-24] MEDS: NOREPINEPHRINE 4 MG/250 ML NS 250 ML IV SCH ×2 (00:20→03:24)
[2019-10-24] MEDS: NS IV 1000 ML 1,000 ML IV SCH ×2 (00:20→05:08)
[2019-10-24] MEDS: RT-ALBUTEROL/IPRATROPIUM 3 ML (DUONEB) VIAL INH SCH ×4 (02:28→21:22)
[2019-10-24 02:59] LABS: BASOPHILS % (AUTO) 0 % (0-10); EOSINOPHILS # (AUTO) 0.1 10^3/uL (0.0-0.3); EOSINOPHILS % (AUTO) 1 % (0-10); HEMATOCRIT 28 % (40-54); HEMOGLOBIN 8.7 G/DL (13.3-17.7); LYMPHOCYTES % (AUTO) 12 % (12-44); MEAN CORPUSCULAR HEMOGLOBIN 31 PG (25-34); MEAN CORPUSCULAR HGB CONC 31 G/DL (32-36); MEAN CORPUSCULAR VOLUME 102 FL (80-99); MEAN PLATELET VOLUME 10.9 FL (7.4-10.4); MONOCYTES # (AUTO) 0.8 X 10^3 (0.0-1.0); MONOCYTES % (AUTO) 9 % (0-12); NEUTROPHILS # (AUTO) 6.5 X 10^3 (1.8-7.8); NEUTROPHILS % (AUTO) 78 % (42-75); PLATELET COUNT 189 10^3/uL (130-400); WHITE BLOOD COUNT 8.3 10^3/uL (4.3-11.0)
[2019-10-24 03:17] LABS: CALCIUM 8.2 MG/DL (8.5-10.1); CREATININE SERUM 1.78 MG/DL (0.60-1.30); MAGNESIUM 1.8 MG/DL (1.6-2.4); PHOSPHORUS 4.2 MG/DL (2.3-4.7); POTASSIUM 3.7 MMOL/L (3.6-5.0)
[2019-10-24] MEDS: POTASSIUM CL 10MEQ/50ML IVPB 50 ML IV SCH (03:24)
[2019-10-24] MEDS: MAGNESIUM 1 GM/100 ML IVPB 100 ML IV SCH (03:24)
[2019-10-24] MEDS: KCL 20 MEQ TAB (K-DUR) PO SCH (03:25)
[2019-10-24] MEDS: inSUlin ASPART (NovoLOG) 1 UNIT/0.01 ML (CHARGE PER UNIT) SC SCH ×3 (05:08→18:15)
[2019-10-24] MEDS: VASOPRESSIN INJECTION 20 UNIT in NORMAL SALINE 100 ML IV SCH (05:08)
--- NOTE | 2019-10-24 06:40 | NUR ---
Dr Christie here at this time for bedside thoracentesis right lung. Patient with large right pleural effusion. Consent in the chart. Dr Christie explained procedure to patient. Patient tolerated procedure without difficulty. 1350cc of SS drainage collected from thoracentesis and sent to the lab for cytology.
--- NOTE | 2019-10-24 07:02 | Pulmonary Procedures ---
Pulmonary Procedures Date of Procedure Date of Service: Oct 24, 2019 Procedure: US guided right complex thoracentesis Preop DX: pleural effusion post op DX: Same 1500cc of bloody fluid obtained. Complications: None After informed consent obtained US was used to localize pleural fluid. Pt has bilateral R> L pleural effusions. Skin was anesthetized at approximately the 10th ICS posterior axillary line. Thoracentesis needle was advanced through the 10th ICS posterior axillary line. Needle was removed and catheter left in place.1500cc of bloody fluid obtained using vacuum bottles. Catheter was then removed. Pt tolerated procedure well. No complications noted. ELIEL YANES DO Oct 24, 2019 07:02
--- NOTE | 2019-10-24 07:06 | Pulmonary Progress Note ---
Subjective Time Seen by a Provider: 07:04 Subjective/Events-last exam Pt is now off pressors. He is more awake today. Sepsis Event Evaluation Height, Weight, BMI Height: 6'0.00" Weight: 177lbs. 9.6oz. 80.031995en; 24.00 BMI Method:Stated Focused Exam Lactate Level 10/22/19 15:40: Lactic Acid Level 2.21*H 10/22/19 17:44: Lactic Acid Level 0.86 Time of Focused Exam: 19:00 Exam Exam Vital Signs Date Time Temp Pulse Resp B/P (MAP) Pulse Ox O2 Delivery O2 Flow Rate FiO2 10/24/19 06:00 52 36 142/64 (90) 94 Nasal Cannula 3.00 10/24/19 05:00 65 22 135/57 (83) 96 Nasal Cannula 3.00 10/24/19 04:00 65 20 131/72 (91) 96 Nasal Cannula 3.00 10/24/19 03:55 36.8 Nasal Cannula 3.00 10/24/19 03:45 94 Nasal Cannula 3.00 10/24/19 03:00 65 23 144/64 (90) 96 Nasal Cannula 3.00 10/24/19 02:28 96 Nasal Cannula 3.00 10/24/19 02:00 51 118/49 (72) 93 Nasal Cannula 3.00 10/24/19 01:00 68 18 105/69 (81) 94 Nasal Cannula 3.00 10/24/19 00:41 67 10/24/19 00:00 93 Nasal Cannula 3.00 10/23/19 23:55 36.5 67 20 93 Nasal Cannula 10/23/19 23:00 63 9 117/71 (86) 93 Nasal Cannula 3.00 10/23/19 22:00 62 17 120/51 (74) 92 Nasal Cannula 3.00 10/23/19 21:00 60 16 139/62 (87) 92 Nasal Cannula 3.00 10/23/19 20:00 36.4 60 25 104/78 (87) 97 Nasal Cannula 3.00 10/23/19 19:45 96 Nasal Cannula 3.00 10/23/19 19:31 36.3 10/23/19 19:29 96 Nasal Cannula 3.00 10/23/19 19:00 36.3 60 15 126/58 (80) 96 Nasal Cannula 3.00 10/23/19 18:40 60 10/23/19 18:00 36.2 60 13 152/89 (110) 96 Nasal Cannula 3.00 10/23/19 17:24 Nasal Cannula 3.00 10/23/19 17:00 36.2 60 10 124/80 (95) 97 Nasal Cannula 4.00 10/23/19 16:58 97 Nasal Cannula 4.00 10/23/19 16:00 97 Nasal Cannula 4.00 10/23/19 16:00 36.3 60 10 102/44 (63) 98 Nasal Cannula 4.00 10/23/19 15:00 36.3 61 12 123/43 (69) 99 Nasal Cannula 4.00 10/23/19 14:00 36.3 61 15 128/40 (69) 98 Nasal Cannula 4.00 10/23/19 13:00 36.3 64 12 114/47 (69) 100 Nasal Cannula 4.00 10/23/19 12:30 64 10/23/19 12:00 36.4 10/23/19 12:00 95 Nasal Cannula 4.00 10/23/19 12:00 36.3 61 13 126/43 (70) 98 Nasal Cannula 4.00 10/23/19 11:00 36.5 60 12 122/48 (72) 98 Nasal Cannula 4.00 10/23/19 10:00 36.4 71 20 114/48 (70) 97 Nasal Cannula 4.00 10/23/19 09:00 36.3 61 13 109/48 (68) 98 Nasal Cannula 4.00 10/23/19 08:00 36.4 60 17 116/53 (74) 99 Nasal Cannula 4.00 10/23/19 08:00 96 Nasal Cannula 4.00 I & O 10/24/19 07:00 Intake Total 2735 ml Output Total 495 ml Balance 2240 ml Height & Weight Height: 6'0.00" Weight: 177lbs. 9.6oz. 80.943789ym; 24.00 BMI Method:Stated General Appearance: Chronically ill, Mild Distress HEENT: PERRL/EOMI, Other (dry mucus membranes) Neck: No Thyromegaly; Other (central line in place) Respiratory: No Respiratory Distress, Decreased Breath Sounds Cardiovascular: Regular Rate, Rhythm, No Murmur Capillary Refill: Less Than 3 Seconds Peripheral Pulses: 2+ Radial Pulses (R), 2+ Radial Pulses (L) Gastrointestinal: normal bowel sounds, non tender, soft Extremity: Pedal Edema (trace non pitting), Slow Capillary Refill Neurologic/Psychiatric: Alert, Other (arouses to physical stimuli, ) Skin: Normal Color, Warm/Dry, Pallor Lymphatic: No Adenopathy Results Lab Laboratory Tests 10/22/19 15:40 10/23/19 03:20 10/24/19 02:50 Assessment/Plan Assessment/Plan Septic shock -Pt is a DNR/DNI -Renatoo/Ayesha Large pleural right effusion -Will do thoracentesis today Metabolic lactic acidosis -Improving Dementia/confusion currently unresponsive except for heavy stimulation -Pt is unresponsive -hx of falls and fractured ribs CAD with pacemaker -Pt was on Plavix, Xarelto, and ASA HTN PAD Pressure Ulcers Wound Care Consult ELIEL YANES DO Oct 24, 2019 07:05
--- NOTE | 2019-10-24 07:25 | Diagnostic Imaging Report ---
EXAMINATION: Chest 1 view HISTORY: Septic shock COMPARISON: 10/23/2019 FINDINGS: Right internal jugular central venous catheter tip terminates in the superior vena cava. Left subclavian pacemaker is present. The left anterior descending artery stent is seen. There is mildly improved aeration of the right lung with persistent large pleural effusion and collapse of the right lung. Heart is enlarged, unchanged. Left lung is mostly clear with mild atelectasis at the base. No pneumothorax is seen. IMPRESSION: 1. Mildly improved aeration of the right lung with persistent collapse of the majority of the right lung and a large right pleural effusion. Findings may be related to pneumonia or mucous plugging. Dictated by: Dictated on workstation # [id number]
--- NOTE | 2019-10-24 07:48 | Diagnostic Imaging Report ---
EXAMINATION: Chest 1 view HISTORY: Status post right thoracentesis. COMPARISON: 10/24/2019 at 3:20 AM FINDINGS: There has been interval decrease in size in the large right-sided pleural effusion. Improved aeration is noted in the mid and upper right lung with continued atelectasis of the right lung base. A small to moderate right-sided pleural effusion remains. The left hemithorax is well aerated. Stable prominent cardiac silhouette with a left pectoral dual-chamber pacemaker in place. A right internal jugular central line is stable in configuration. No acute osseous abnormalities. IMPRESSION: 1. Interval decrease in size in the large right-sided pleural effusion status post thoracentesis. No evidence of pneumothorax. Small to moderate residual right-sided pleural effusion remains. 2. Improved aeration in the right lung with continued atelectasis in the right lung base. Dictated by: Dictated on workstation # [id number]
--- NOTE | 2019-10-24 07:54 | Progress Note ---
Subjective Time Seen by a Provider: 07:49 Subjective/Events-last exam Patient has no complaints this morning. Patient had thoracentesis this a.m. with removal of 1500 mL of fluid. Can hear breath sounds on both left and right lung Focused Exam Lactate Level 10/22/19 15:40: Lactic Acid Level 2.21*H 10/22/19 17:44: Lactic Acid Level 0.86 Time of Focused Exam: 19:00 Objective Exam Vital Signs Date Time Temp Pulse Resp B/P (MAP) Pulse Ox O2 Delivery O2 Flow Rate FiO2 10/24/19 06:00 52 36 142/64 (90) 94 Nasal Cannula 3.00 10/24/19 05:00 65 22 135/57 (83) 96 Nasal Cannula 3.00 10/24/19 04:00 65 20 131/72 (91) 96 Nasal Cannula 3.00 10/24/19 03:55 36.8 Nasal Cannula 3.00 10/24/19 03:45 94 Nasal Cannula 3.00 10/24/19 03:00 65 23 144/64 (90) 96 Nasal Cannula 3.00 10/24/19 02:28 96 Nasal Cannula 3.00 10/24/19 02:00 51 118/49 (72) 93 Nasal Cannula 3.00 10/24/19 01:00 68 18 105/69 (81) 94 Nasal Cannula 3.00 10/24/19 00:41 67 10/24/19 00:00 93 Nasal Cannula 3.00 10/23/19 23:55 36.5 67 20 93 Nasal Cannula 10/23/19 23:00 63 9 117/71 (86) 93 Nasal Cannula 3.00 10/23/19 22:00 62 17 120/51 (74) 92 Nasal Cannula 3.00 10/23/19 21:00 60 16 139/62 (87) 92 Nasal Cannula 3.00 10/23/19 20:00 36.4 60 25 104/78 (87) 97 Nasal Cannula 3.00 10/23/19 19:45 96 Nasal Cannula 3.00 10/23/19 19:31 36.3 10/23/19 19:29 96 Nasal Cannula 3.00 10/23/19 19:00 36.3 60 15 126/58 (80) 96 Nasal Cannula 3.00 10/23/19 18:40 60 10/23/19 18:00 36.2 60 13 152/89 (110) 96 Nasal Cannula 3.00 10/23/19 17:24 Nasal Cannula 3.00 10/23/19 17:00 36.2 60 10 124/80 (95) 97 Nasal Cannula 4.00 10/23/19 16:58 97 Nasal Cannula 4.00 10/23/19 16:00 97 Nasal Cannula 4.00 10/23/19 16:00 36.3 60 10 102/44 (63) 98 Nasal Cannula 4.00 10/23/19 15:00 36.3 61 12 123/43 (69) 99 Nasal Cannula 4.00 10/23/19 14:00 36.3 61 15 128/40 (69) 98 Nasal Cannula 4.00 10/23/19 13:00 36.3 64 12 114/47 (69) 100 Nasal Cannula 4.00 10/23/19 12:30 64 10/23/19 12:00 36.4 10/23/19 12:00 95 Nasal Cannula 4.00 10/23/19 12:00 36.3 61 13 126/43 (70) 98 Nasal Cannula 4.00 10/23/19 11:00 36.5 60 12 122/48 (72) 98 Nasal Cannula 4.00 10/23/19 10:00 36.4 71 20 114/48 (70) 97 Nasal Cannula 4.00 10/23/19 09:00 36.3 61 13 109/48 (68) 98 Nasal Cannula 4.00 10/23/19 08:00 36.4 60 17 116/53 (74) 99 Nasal Cannula 4.00 10/23/19 08:00 96 Nasal Cannula 4.00 I & O 10/24/19 07:00 Intake Total 3735 ml Output Total 495 ml Balance 3240 ml Capillary Refill : Less Than 3 Seconds General Appearance: No Apparent Distress, WD/WN HEENT: Normal ENT Inspection Neck: Full Range of Motion, Normal Inspection Respiratory: Lungs Clear, No Accessory Muscle Use, No Respiratory Distress, Decreased Breath Sounds, Other (Breath sounds noted on right and left lungs) Cardiovascular: Regular Rate, Rhythm, No Murmur Gastrointestinal: non tender, soft Results Lab Laboratory Tests 10/24/19 02:50 Laboratory Tests 10/23/19 11:23: Glucometer 89 10/23/19 11:25: Blood Gas Puncture Site RIGHT BRACHIAL, Blood Gas Patient Temperature 36.4, Arterial Blood pH 7.35L, Arterial Blood Partial Pressure CO2 37, Arterial Blood Partial Pressure O2 77L, Arterial Blood HCO3 20L, Arterial Blood Total CO2 21.1, Arterial Blood Oxygen Saturation 96, Arterial Blood Base Excess -4.8L, Carmelo Test POSITIVE, Blood Gas Ventilator Setting NO, Blood Gas Inspired Oxygen 4 L 10/23/19 17:26: Glucometer 94 10/23/19 23:00: Glucometer 68L 10/24/19 02:50: White Blood Count 8.3, Red Blood Count 2.78L, Hemoglobin 8.7L, Hematocrit 28L, Mean Corpuscular Volume 102H, Mean Corpuscular Hemoglobin 31, Mean Corpuscular Hemoglobin Concent 31L, Red Cell Distribution Width 16.0H, Platelet Count 189, Mean Platelet Volume 10.9H, Neutrophils (%) (Auto) 78H, Lymphocytes (%) (Auto) 12, Monocytes (%) (Auto) 9, Eosinophils (%) (Auto) 1, Basophils (%) (Auto) 0, Neutrophils # (Auto) 6.5, Lymphocytes # (Auto) 1.0, Monocytes # (Auto) 0.8, Eosinophils # (Auto) 0.1, Basophils # (Auto) 0.0, Sodium Level 143, Potassium Level 3.7, Chloride Level 117H, Carbon Dioxide Level 17L, Anion Gap 9, Blood Urea Nitrogen 33H, Creatinine 1.78H, Estimat Glomerular Filtration Rate 37, BUN/Creatinine Ratio 19, Glucose Level 52*L, Calcium Level 8.2L, Phosphorus Level 4.2, Magnesium Level 1.8, B-Type Natriuretic Peptide 311.8H 10/24/19 04:26: Glucometer 70 Microbiology 10/22/19 Influenza Types A,B Antigen (JANA) - Final, Complete 10/22/19 Blood Culture - Preliminary, Resulted Staph, Coag Neg (COSTUME CUTTER) 10/22/19 Urine Culture - Final, Complete NO GROWTH Assessment/Plan Assessment/Plan Assess & Plan/Chief Complaint Sepsis. Elevated lactic acid. Large pleural effusion. Had thoracentesis this morning. Hypotension. Hypothermia. Dementia. Parkinson disease. Diabetes. Right lung collapse Clinical Quality Measures DVT/VTE Risk/Contraindication: Risk Factor Score Per Nursin RFS Level Per Nursing on Admit: 4+=Very High DENIZ KENT DO Oct 24, 2019 07:54
[2019-10-24] MEDS ORDERED: NITR0.4T42 SL (09:18)
--- NOTE | 2019-10-24 09:19 | NUR ---
CALLED AND SPOKE WITH THE PATIENT . SHE STATES NO CHANGES HAVE BEEN MADE SINCE HIS LAST DISCHARGE. I COMPARED THAT LIST WITH THE EXT MED HX. ALSO SEE MY DETAILED NOTE FROM PREVIOUS ADMISSION FOR DETAILS ON MEDICATIONS. PATENT TAKES SOME DIFFERENTLY AND RECEIVES SAMPLES OF SOME. CONFIRMED THE NEW SCRIPT FOR METOPROLOL PRN WELL THE DOSE CHANGE ON THE LEVEMIR. SHE ALSO VERIFIED THE POTASSIUM AND LASIX HAVE NOT BEEN RESTARTED. I DID ADD NITROGLYCERIN TO THE MED REC AT THIS TIME IT WAS RECENTLY FILLED ACCORDING TO THE EXT MED HX.
[2019-10-24] MEDS: CEFEPIME INJECTION 2,000 MG in WATER (STERILE) FOR INJECTION 20 ML IV SCH (09:26)
--- NOTE | 2019-10-24 12:25 | NUR ---
"RD ASSESSMENT PMHx: dementia; Parkinson's disease; hypercholesterolemia; HTN; DM PT INTERACTION: Pt was awake and pleasant during nutrition assessment. Note pt has PMH of dementia, per chart review. Note family present at bedside during assessment. Pt states current appetite is okay, and has been for some time. Note avg PO intake of <10% x1d, per chart review. Pt states following a regular diet at home, and has no issues with chewing/swallowing food. Pt states no recent issues with n/v/c at this time. Son states pt has had episodes of diarrhea for the last week. Note no BM has been recorded, and pt not currently on bowel regimen per chart review. Pt states no recent wt changes. Note 18# wt gain x1mon, per chart review. This wt gain is believed to be fluid buildup. Note presence of wounds, per chart review. ABNORMAL NUTRITION-RELATED LAB VALUES LOW: Ca 8.2 HIGH: Cl 117; BUN 33; cr 1.78 Est. kcal needs: 4234-6744 kcal | 20-25 kcal/kg Est. Pro needs: 110-128 g Pro | 1.2-1.4 g Pro/kg PES STATEMENT: Inadequate oral intake (NI-2.1) related to loss of appetite | diarrhea | as evidenced by pt (family) interview | avg PO intake <10% x1d Inadequate protein intake (NI-5.6.1) related to increased protein needs as evidenced by presence of wounds INTERVENTION: Continue with current diet order of Clear Liquid diet. Advance diet as tolerated and as medically able. Add Ensure Clear (vary) to meals TID for increased kcal intake and perceived benefit to wound healing. Provides 250 kcal and 8 g Pro per serving. Will continue to follow and reassess as pt needs and status change. MONITOR/EVALUATE: PO Intake; Plan of Care; Hydration Status; Weight Status; Lab Values David Henley, MS, RD, LD"
[2019-10-24] MEDS ORDERED: TROUGH ORDER-PHARMACY XX NR (20:00)
[2019-10-24] MEDS: VANCOMYCIN INJECTION 1,250 MG in NS (IVPB) 250 ML IV SCH (22:02)
[2019-10-25] VITALS (14 sets, daily range): BP systolic 80–196; BP diastolic 60–96
[2019-10-25] MEDS: inSUlin ASPART (NovoLOG) 1 UNIT/0.01 ML (CHARGE PER UNIT) SC SCH ×4 (00:33→17:24)
[2019-10-25] MEDS: RT-ALBUTEROL/IPRATROPIUM 3 ML (DUONEB) VIAL INH SCH ×4 (02:11→21:17)
[2019-10-25 03:16] LABS: BASOPHILS % (AUTO) 0 % (0-10); EOSINOPHILS # (AUTO) 0.1 10^3/uL (0.0-0.3); EOSINOPHILS % (AUTO) 2 % (0-10); HEMATOCRIT 27 % (40-54); HEMOGLOBIN 8.4 G/DL (13.3-17.7); LYMPHOCYTES # (AUTO) 1.3 X 10^3 (1.0-4.0); LYMPHOCYTES % (AUTO) 15 % (12-44); MEAN CORPUSCULAR HEMOGLOBIN 31 PG (25-34); MEAN CORPUSCULAR HGB CONC 31 G/DL (32-36); MEAN CORPUSCULAR VOLUME 101 FL (80-99); MEAN PLATELET VOLUME 10.4 FL (7.4-10.4); MONOCYTES # (AUTO) 0.8 X 10^3 (0.0-1.0); MONOCYTES % (AUTO) 9 % (0-12); NEUTROPHILS # (AUTO) 6.1 X 10^3 (1.8-7.8); NEUTROPHILS % (AUTO) 74 % (42-75); PLATELET COUNT 194 10^3/uL (130-400); WHITE BLOOD COUNT 8.2 10^3/uL (4.3-11.0)
[2019-10-25 03:36] LABS: CALCIUM 8.7 MG/DL (8.5-10.1); CREATININE SERUM 1.34 MG/DL (0.60-1.30); MAGNESIUM 1.9 MG/DL (1.6-2.4); PHOSPHORUS 3.4 MG/DL (2.3-4.7); POTASSIUM 3.9 MMOL/L (3.6-5.0)
[2019-10-25] MEDS: POTASSIUM CL 10MEQ/50ML IVPB 50 ML IV SCH (03:50)
[2019-10-25] MEDS: MAGNESIUM 1 GM/100 ML IVPB 100 ML IV SCH (03:50)
[2019-10-25] MEDS: KCL 20 MEQ TAB (K-DUR) PO SCH (03:51)
[2019-10-25] MEDS ORDERED: NITROGLYCERIN 0.4 MG SL TABS BTL 25'S SL PRN (05:30)
--- NOTE | 2019-10-25 05:32 | Pulmonary Progress Note ---
Subjective Time Seen by a Provider: 05:29 Subjective/Events-last exam Pt is requiring minimal 02. He is very confused. Sepsis Event Evaluation Height, Weight, BMI Height: 6'0.00" Weight: 177lbs. 9.6oz. [id number]; 24.00 BMI Method:Stated Focused Exam Lactate Level 10/22/19 15:40: Lactic Acid Level 2.21*H 10/22/19 17:44: Lactic Acid Level 0.86 Time of Focused Exam: 19:00 Exam Exam Vital Signs Date Time Temp Pulse Resp B/P (MAP) Pulse Ox O2 Delivery O2 Flow Rate FiO2 10/25/19 04:36 Nasal Cannula 2.00 10/25/19 04:30 36.9 Nasal Cannula 2.00 10/25/19 04:00 62 25 80/60 (67) 91 Nasal Cannula 2.00 10/25/19 03:00 60 11 117/96 (103) 96 Nasal Cannula 2.00 10/25/19 02:19 10/25/19 02:09 97 Nasal Cannula 3.00 10/25/19 02:00 65 22 158/79 (105) 97 Nasal Cannula 2.00 10/25/19 01:00 19 179/86 (117) 96 Nasal Cannula 2.00 10/25/19 00:42 67 10/25/19 00:32 36.6 Nasal Cannula 2.00 10/25/19 00:30 Nasal Cannula 2.00 10/25/19 00:00 23 183/84 (117) 92 Nasal Cannula 3.00 10/24/19 23:13 Nasal Cannula 2.00 10/24/19 23:00 64 22 178/87 (117) 98 Nasal Cannula 3.00 10/24/19 22:00 61 15 160/73 (102) 98 Nasal Cannula 3.00 10/24/19 21:20 97 Nasal Cannula 3.00 10/24/19 21:00 60 13 173/78 (109) 98 Nasal Cannula 3.00 10/24/19 20:30 Nasal Cannula 3.00 10/24/19 20:23 35.9 60 16 167/70 (102) 96 Nasal Cannula 3.00 10/24/19 20:00 36.2 10/24/19 20:00 61 14 167/70 (102) 98 Nasal Cannula 3.00 10/24/19 19:00 65 14 132/64 (86) 97 Nasal Cannula 3.00 10/24/19 18:45 67 10/24/19 18:00 64 13 144/77 (99) 97 Nasal Cannula 3.00 10/24/19 17:00 60 11 161/70 (100) 96 Nasal Cannula 3.00 10/24/19 16:00 97 Nasal Cannula 3.00 10/24/19 16:00 36.1 10/24/19 16:00 60 16 158/69 (98) 95 Nasal Cannula 3.00 10/24/19 15:07 96 Nasal Cannula 3.00 10/24/19 15:00 60 13 167/58 (94) 97 Nasal Cannula 3.00 10/24/19 14:00 60 15 154/72 (99) 96 Nasal Cannula 3.00 10/24/19 13:00 60 16 133/72 (92) 94 Nasal Cannula 3.00 10/24/19 13:00 60 10/24/19 12:00 55 12 139/54 (82) 96 Nasal Cannula 3.00 10/24/19 12:00 95 Nasal Cannula 3.00 10/24/19 11:00 64 15 138/103 (115) 95 Nasal Cannula 3.00 10/24/19 10:07 96 Nasal Cannula 3.00 10/24/19 10:00 60 13 102/86 (91) 97 Nasal Cannula 3.00 10/24/19 09:00 62 12 167/86 (113) 97 Nasal Cannula 3.00 10/24/19 08:00 36.2 10/24/19 08:00 65 15 103/73 (83) 97 Nasal Cannula 3.00 10/24/19 08:00 97 Nasal Cannula 3.00 10/24/19 07:00 60 10/24/19 07:00 63 16 109/53 (71) 95 Nasal Cannula 3.00 10/24/19 06:00 52 36 142/64 (90) 94 Nasal Cannula 3.00 I & O 10/25/19 07:00 Intake Total 1675 ml Output Total 715 ml Balance 960 ml Height & Weight Height: 6'0.00" Weight: 177lbs. 9.6oz. [id number]; 24.00 BMI Method:Stated General Appearance: No Apparent Distress, WD/WN HEENT: Normal ENT Inspection Neck: Full Range of Motion, Normal Inspection Respiratory: No Accessory Muscle Use, No Respiratory Distress, Decreased Breath Sounds, Other (Breath sounds noted on right and left lungs) Cardiovascular: Regular Rate, Rhythm, No Murmur Capillary Refill: Less Than 3 Seconds Peripheral Pulses: 2+ Radial Pulses (R), 2+ Radial Pulses (L) Gastrointestinal: non tender, soft Extremity: Pedal Edema (trace non pitting), Slow Capillary Refill Neurologic/Psychiatric: Alert, Other (arouses to physical stimuli, ) Skin: Normal Color, Warm/Dry, Pallor Lymphatic: No Adenopathy Results Lab Laboratory Tests 10/24/19 02:50 10/25/19 03:09 Assessment/Plan Assessment/Plan Septic shock -Pt is a DNR/DNI -Renatoo/Ayesha Large pleural right hemothorax/effusion -Pt pulls at all lines and tubes. I am reluctant to place chest tube because he will most likely pull it out. -S/p thoracentesis -Monitor close -Check BNP -Give bumex 1mg daily Metabolic lactic acidosis -Improving Dementia/confusion currently unresponsive except for heavy stimulation -Pt is unresponsive -hx of falls and fractured ribs CAD with pacemaker -Pt was on Plavix, Xarelto, and ASA -Pt has had multiple falls per reports and right hemothorax HTN PAD Pressure Ulcers Wound Care Consult ELIEL YANES DO Oct 25, 2019 05:32
[2019-10-25] MEDS ORDERED: hydrALAZINE (APESOLINE) 20 MG/ML VIAL IV SCH (06:00)
--- NOTE | 2019-10-25 07:19 | NUR ---
REPORT GIVEN TO BRIAN ROSSI. DAY SHIFT RN TO TRANSPORT PT TO 4TH FLOOR.
--- NOTE | 2019-10-25 07:50 | Progress Note ---
Subjective Time Seen by a Provider: 07:47 Subjective/Events-last exam Better today. Patient more alert rate Patient transferred to medical floor. Patient voices no complaints. Kidney function is better. Waiting for chest x-ray report Focused Exam Lactate Level 10/22/19 15:40: Lactic Acid Level 2.21*H 10/22/19 17:44: Lactic Acid Level 0.86 Time of Focused Exam: 19:00 Objective Exam Vital Signs Date Time Temp Pulse Resp B/P (MAP) Pulse Ox O2 Delivery O2 Flow Rate FiO2 10/25/19 07:00 67 10/25/19 06:00 66 12 170/95 (120) 96 Nasal Cannula 2.00 10/25/19 05:00 63 16 190/77 (114) 97 Nasal Cannula 2.00 10/25/19 04:36 Nasal Cannula 2.00 10/25/19 04:30 36.9 Nasal Cannula 2.00 10/25/19 04:00 62 25 80/60 (67) 91 Nasal Cannula 2.00 10/25/19 03:00 60 11 117/96 (103) 96 Nasal Cannula 2.00 10/25/19 02:19 10/25/19 02:09 97 Nasal Cannula 3.00 10/25/19 02:00 65 22 158/79 (105) 97 Nasal Cannula 2.00 10/25/19 01:00 19 179/86 (117) 96 Nasal Cannula 2.00 10/25/19 00:42 67 10/25/19 00:32 36.6 Nasal Cannula 2.00 10/25/19 00:30 Nasal Cannula 2.00 10/25/19 00:00 23 183/84 (117) 92 Nasal Cannula 3.00 10/24/19 23:13 Nasal Cannula 2.00 10/24/19 23:00 64 22 178/87 (117) 98 Nasal Cannula 3.00 10/24/19 22:00 61 15 160/73 (102) 98 Nasal Cannula 3.00 10/24/19 21:20 97 Nasal Cannula 3.00 10/24/19 21:00 60 13 173/78 (109) 98 Nasal Cannula 3.00 10/24/19 20:30 Nasal Cannula 3.00 10/24/19 20:23 35.9 60 16 167/70 (102) 96 Nasal Cannula 3.00 1/13/20 20:00 36.2 10/24/19 20:00 61 14 167/70 (102) 98 Nasal Cannula 3.00 10/24/19 19:00 65 14 132/64 (86) 97 Nasal Cannula 3.00 10/24/19 18:45 67 10/24/19 18:00 64 13 144/77 (99) 97 Nasal Cannula 3.00 10/24/19 17:00 60 11 161/70 (100) 96 Nasal Cannula 3.00 10/24/19 16:00 97 Nasal Cannula 3.00 10/24/19 16:00 36.1 10/24/19 16:00 60 16 158/69 (98) 95 Nasal Cannula 3.00 10/24/19 15:07 96 Nasal Cannula 3.00 10/24/19 15:00 60 13 167/58 (94) 97 Nasal Cannula 3.00 10/24/19 14:00 60 15 154/72 (99) 96 Nasal Cannula 3.00 10/24/19 13:00 60 16 133/72 (92) 94 Nasal Cannula 3.00 10/24/19 13:00 60 10/24/19 12:00 55 12 139/54 (82) 96 Nasal Cannula 3.00 10/24/19 12:00 95 Nasal Cannula 3.00 10/24/19 11:00 64 15 138/103 (115) 95 Nasal Cannula 3.00 10/24/19 10:07 96 Nasal Cannula 3.00 10/24/19 10:00 60 13 102/86 (91) 97 Nasal Cannula 3.00 10/24/19 09:00 62 12 167/86 (113) 97 Nasal Cannula 3.00 10/24/19 08:00 36.2 10/24/19 08:00 65 15 103/73 (83) 97 Nasal Cannula 3.00 10/24/19 08:00 97 Nasal Cannula 3.00 I & O 10/25/19 07:00 Intake Total 1725 ml Output Total 760 ml Balance 965 ml Capillary Refill : Less Than 3 Seconds General Appearance: No Apparent Distress, WD/WN HEENT: Normal ENT Inspection Neck: Full Range of Motion, Normal Inspection Respiratory: Lungs Clear, No Accessory Muscle Use, No Respiratory Distress Cardiovascular: Regular Rate, Rhythm, No Murmur Gastrointestinal: non tender, soft Results Lab Laboratory Tests 10/25/19 03:09 Laboratory Tests 10/24/19 11:13: Glucometer 84 10/24/19 17:47: Glucometer 100 10/24/19 20:25: Vancomycin Level Trough 14.9 10/25/19 00:28: Glucometer 125H 10/25/19 03:09: White Blood Count 8.2, Red Blood Count 2.71L, Hemoglobin 8.4L, Hematocrit 27L, Mean Corpuscular Volume 101H, Mean Corpuscular Hemoglobin 31, Mean Corpuscular Hemoglobin Concent 31L, Red Cell Distribution Width 16.0H, Platelet Count 194, Mean Platelet Volume 10.4, Neutrophils (%) (Auto) 74, Lymphocytes (%) (Auto) 15, Monocytes (%) (Auto) 9, Eosinophils (%) (Auto) 2, Basophils (%) (Auto) 0, Neutrophils # (Auto) 6.1, Lymphocytes # (Auto) 1.3, Monocytes # (Auto) 0.8, Eo sinophils # (Auto) 0.1, Basophils # (Auto) 0.0, Sodium Level 143, Potassium Level 3.9, Chloride Level 117H, Carbon Dioxide Level 18L, Anion Gap 8, Blood Urea Nitrogen 32H, Creatinine 1.34H, Estimat Glomerular Filtration Rate 52, BUN/Creatinine Ratio 24, Glucose Level 110H, Calcium Level 8.7, Phosphorus Level 3.4, Magnesium Level 1.9 Microbiology 10/22/19 MRSA Screen - Final, Complete 10/22/19 Blood Culture - Preliminary, Resulted Staph, Coag Neg (PROTOCOL MANAGER) 10/22/19 Urine Culture - Final, Complete NO GROWTH Assessment/Plan Assessment/Plan Assess & Plan/Chief Complaint Sepsis. Elevated lactic acid. Large pleural effusion. Had thoracentesis this morning. Hypotension. Hypothermia. Dementia. Parkinson disease. Diabetes. Right lung collapse . 10/25/19. Sepsis. Elevated lactic acid. Large pleural effusion. Hypotension. Hypertension history. Dementia. Parkinson disease. Diabetes. Right lung collapse Clinical Quality Measures DVT/VTE Risk/Contraindication: Risk Factor Score Per Nursin RFS Level Per Nursing on Admit: 4+=Very High DENIZ KENT DO Oct 25, 2019 07:49
--- NOTE | 2019-10-25 08:28 | Diagnostic Imaging Report ---
EXAMINATION: Portable erect AP chest at 4:06 AM INDICATION: Septic shock The borderline cardiomegaly and the left-sided pacemaker seen on the prior exam of 10/24/2019 are again evident and not significantly changed. There has been some increase in the diffuse alveolar/interstitial infiltrate involving the right lung since the prior exam. There may be a small amount of pleural fluid reaccumulating following thoracentesis as well. There is still no sign of a pneumothorax on the right. Mild left lower lobe atelectasis/infiltrate has also developed since the prior study. The mediastinum is not widened. The numerous displaced right-sided rib fractures seen previously are again evident. The central venous catheter on the right is unchanged in position. IMPRESSION: 1. The appearance of the chest has worsened somewhat since the prior exam as there has been some increase in the atelectasis/infiltrate and fluid involving the right lung. A small amount of pneumonia/atelectasis is also now present in the left lung base. A follow-up study would be recommended for continued evaluation. Dictated by: Dictated on workstation # [id number]
[2019-10-25] MEDS ORDERED: BUMETANIDE 1 MG/4 ML (BUMEX) VIAL IV SCH (09:00)
[2019-10-25] MEDS ORDERED: CEFEPIME INJECTION 2,000 MG in WATER (STERILE) FOR INJECTION 20 ML IV SCH (09:00)
[2019-10-25] MEDS: SINEMET CR 50/200 (CARBIDOPA/LEVODOPA SA) TAB PO SCH ×3 (09:26→21:11)
[2019-10-25] MEDS: AMIODARONE 200 MG (CORDARONE) TAB PO SCH (09:27)
[2019-10-25] MEDS: CEFEPIME INJECTION 2,000 MG in WATER (STERILE) FOR INJECTION 20 ML IV SCH (09:28)
[2019-10-25] MEDS: TAMSULOSIN 0.4 MG (FLOMAX) CAP PO SCH (16:47)
--- NOTE | 2019-10-25 20:00 | NUR ---
took home pt's wedding ring.
[2019-10-25] MEDS: hydrALAZINE (APESOLINE) 20 MG/ML VIAL IV PRN (20:15)
--- NOTE | 2019-10-25 20:20 | NUR ---
Administered Hydrazaline 10mg (0.5ml). BP = 196 / 83
[2019-10-25] MEDS: VANCOMYCIN INJECTION 1,250 MG in NS (IVPB) 250 ML IV SCH (21:09)
[2019-10-26] VITALS (7 sets, daily range): BP systolic 132–196; BP diastolic 68–87
[2019-10-26] MEDS: inSUlin ASPART (NovoLOG) 1 UNIT/0.01 ML (CHARGE PER UNIT) SC SCH ×4 (00:12→18:03)
[2019-10-26] MEDS: RT-ALBUTEROL/IPRATROPIUM 3 ML (DUONEB) VIAL INH SCH ×4 (01:31→21:54)
[2019-10-26] MEDS: hydrALAZINE (APESOLINE) 20 MG/ML VIAL IV PRN (03:54)
[2019-10-26 04:51] LABS: BASOPHILS % (AUTO) 0 % (0-10); EOSINOPHILS # (AUTO) 0.2 10^3/uL (0.0-0.3); EOSINOPHILS % (AUTO) 2 % (0-10); HEMATOCRIT 28 % (40-54); LYMPHOCYTES # (AUTO) 1.2 X 10^3 (1.0-4.0); LYMPHOCYTES % (AUTO) 15 % (12-44); MEAN CORPUSCULAR HEMOGLOBIN 32 PG (25-34); MEAN CORPUSCULAR HGB CONC 32 G/DL (32-36); MEAN CORPUSCULAR VOLUME 99 FL (80-99); MEAN PLATELET VOLUME 10.7 FL (7.4-10.4); MONOCYTES % (AUTO) 12 % (0-12); NEUTROPHILS # (AUTO) 5.7 X 10^3 (1.8-7.8); NEUTROPHILS % (AUTO) 71 % (42-75); PLATELET COUNT 203 10^3/uL (130-400); RED CELL DISTRIBUTION WIDTH 15.4 % (10.0-14.5)
[2019-10-26 05:15] LABS: CALCIUM 8.9 MG/DL (8.5-10.1); CREATININE SERUM 1.19 MG/DL (0.60-1.30); MAGNESIUM 1.9 MG/DL (1.6-2.4); PHOSPHORUS 2.6 MG/DL (2.3-4.7); POTASSIUM 3.6 MMOL/L (3.6-5.0)
[2019-10-26] MEDS: KCL 20 MEQ TAB (K-DUR) PO SCH (05:22)
[2019-10-26] MEDS ORDERED: KCL 20 MEQ TAB (K-DUR) PO ONE (06:00)
--- NOTE | 2019-10-26 07:58 | Progress Note ---
Subjective Time Seen by a Provider: 07:56 Subjective/Events-last exam Patient has swelling of extremities. Patient's blood tests look better. Waiting for chest x-ray report Focused Exam Time of Focused Exam: 19:00 Objective Exam Vital Signs Date Time Temp Pulse Resp B/P (MAP) Pulse Ox O2 Delivery O2 Flow Rate FiO2 10/26/19 03:20 36.7 67 24 166/74 (104) 96 Nasal Cannula 2.00 10/26/19 01:32 91 Nasal Cannula 2.00 10/26/19 01:00 71 10/25/19 23:25 36.5 105 22 188/65 (106) 94 Nasal Cannula 2.00 10/25/19 21:18 92 Nasal Cannula 3.00 10/25/19 20:27 160/78 (105) 10/25/19 20:00 Nasal Cannula 2.00 10/25/19 19:49 35.8 62 20 196/83 (120) 94 Nasal Cannula 2.00 10/25/19 19:00 70 10/25/19 16:16 36.1 62 20 185/77 (113) 98 Nasal Cannula 3.00 10/25/19 13:52 36.3 70 93 21 10/25/19 13:00 67 10/25/19 12:59 36.3 70 18 131/79 (96) 93 Room Air 10/25/19 08:30 36.4 70 18 142/82 (102) 94 Nasal Cannula 3.00 10/25/19 08:26 92 Nasal Cannula 3.00 10/25/19 08:00 Nasal Cannula 2.00 I & O 10/26/19 07:00 Intake Total 2250 ml Output Total 2135 ml Balance 115 ml Capillary Refill : Less Than 3 Seconds General Appearance: No Apparent Distress, WD/WN HEENT: Normal ENT Inspection Neck: Normal Inspection Respiratory: Lungs Clear, No Accessory Muscle Use, No Respiratory Distress Cardiovascular: Regular Rate, Rhythm, No Murmur Gastrointestinal: non tender, soft Results Lab Laboratory Tests 10/26/19 04:40 Laboratory Tests 10/25/19 11:26: Glucometer 119H 10/25/19 17:17: Glucometer 214H 10/25/19 23:36: Glucometer 229H 10/26/19 04:40: White Blood Count 8.0, Red Blood Count 2.86L, Hemoglobin 9.0L, Hematocrit 28L, Mean Corpuscular Volume 99, Mean Corpuscular Hemoglobin 32, Mean Corpuscular Hemoglobin Concent 32, Red Cell Distribution Width 15.4H, Platelet Count 203, Mean Platelet Volume 10.7H, Neutrophils (%) (Auto) 71, Lymphocytes (%) (Auto) 15, Monocytes (%) (Auto) 12, Eosinophils (%) (Auto) 2, Basophils (%) (Auto) 0, Neutrophils # (Auto) 5.7, Lymphocytes # (Auto) 1.2, Monocytes # (Auto) 1.0, Eosinophils # (Auto) 0.2, Basophils # (Auto) 0.0, Sodium Level 142, Potassium Level 3.6, Chloride Level 115H, Carbon Dioxide Level 20L, Anion Gap 7, Blood Urea Nitrogen 30H, Creatinine 1.19, Estimat Glomerular Filtration Rate 59, BUN/Creatinine Ratio 25, Glucose Level 152H, Calcium Level 8.9, Phosphorus Level 2.6, Magnesium Level 1.9 10/26/19 05:02: Glucometer 150H Microbiology 10/22/19 MRSA Screen - Final, Complete 10/22/19 Blood Culture - Preliminary, Resulted Staph, Coag Neg (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 Elevated lactic acid. Large pleural effusion. Had thoracentesis this morning. Hypotension. Hypothermia. Dementia. Parkinson disease. Diabetes. Right lung collapse . 10/25/19. Sepsis. Elevated lactic acid. Large pleural effusion. Hypotension. Hypertension history. Dementia. Parkinson disease. Diabetes. Right lung collapse. . 10/26/2019. Sepsis. Pretibial edema. Swelling of hands. Pleural effusion. Hypertension now dementia or Parkinson disease. Diabetes. Right lung collapse Clinical Quality Measures DVT/VTE Risk/Contraindication: Risk Factor Score Per Nursin RFS Level Per Nursing on Admit: 4+=Very High DENIZ KENT DO Oct 26, 2019 07:58
--- NOTE | 2019-10-26 08:05 | Diagnostic Imaging Report ---
INDICATION: Colitis and hypothermia in patient with septic shock. FINDINGS: Upright portable AP view of chest is obtained with comparison made study of one day earlier. Extensive airspace disease is again seen throughout the right lung with associated right pleural fluid. Mild left perihilar atelectasis and/or pneumonitis is also present showing mild worsening since previous study. IMPRESSION: Mild overall worsening of airspace disease likely due to edema and pneumonitis. Pneumonia right lung with associated parapneumonic effusion is not excluded. Dictated by: Dictated on workstation # [id number]
[2019-10-26] MEDS ORDERED: FUROSEMIDE 40 MG/4 ML INJ (LASIX) IVP NR (08:13)
[2019-10-26 08:17] LABS: ALANINE AMINOTRANSFERASE < 6 U/L (0-55); ALBUMIN 2.3 GM/DL (3.2-4.5); ALKALINE PHOSPHATASE 129 U/L (40-136); BILIRUBIN,DIRECT 0.4 MG/DL (0.0-0.3); BILIRUBIN,INDIRECT 0.1 MG/DL; BILIRUBIN,TOTAL 0.5 MG/DL (0.1-1.0); TOTAL PROTEIN 5.3 GM/DL (6.4-8.2)
[2019-10-26] MEDS: SINEMET CR 50/200 (CARBIDOPA/LEVODOPA SA) TAB PO SCH ×3 (08:41→21:32)
[2019-10-26] MEDS: AMIODARONE 200 MG (CORDARONE) TAB PO SCH (08:41)
[2019-10-26] MEDS: CEFEPIME INJECTION 2,000 MG in WATER (STERILE) FOR INJECTION 20 ML IV SCH (08:46)
--- NOTE | 2019-10-26 11:39 | Consultation-Cardiology ---
HPI-Cardiology Cardiology Consultation Date of Consultation 10/26/19 Date of Admission Time Seen by Provider: 11:00 Indication: HTN HPI Patient is a 78 y/o male well known to our services. Presented to the ER on 10/22/2019. Family members reports increased lethargy and diarrhea. Denies any chest pain or dizziness. Was complaining of dyspnea. W/u revealed septic shock and right hemothorax. Patient has history of orthostatic hypotension and labile hypotension. Was taking Toprol XL at home as needed for SBP >150. Has had elevated BP for the past 2 days. Patient has severe dementia and am unable to obtain ROS 78-year-old gentleman well-known to my practice, presented by family member for generalized fatigue and loss of energy, has bruising on his right side of his chest appeared to be old. Was unable to provide full history, history was obtained by interviewing his family members. He was noted to have elevated blood pressure and I was called for evaluation management Home Medications & Allergies Allergies: Coded Allergies: No Known Drug Allergies (Unverified , 09/06/18) Home Medication List Reviewed: Yes [id number] Hx Patient Social History Marital Status: Employed/Student: retired Alcohol Use: Denies Use Recreational Drug Use: No Smoking Status: Former Smoker Type Used: Pipe 2nd Hand Smoke Exposure: No Recent Foreign Travel: No Recent Infectious Disease Expo: No Recent Hopitalizations: Yes ([facility]) Immunizations Up To Date Date of Pneumonia Vaccine: Aug 17, 2016 Date of Influenza Vaccine: Aug 03, 2019 Past Medical History CAD, PVD, CHF, PAF, HTN, SSS Family Medical History Significant Family History: No Pertinent Family Hx Family History: Alcoholism G8 BROTHER ( at age 46) FH: heart disease 19 FATHER Hypertension 19 MOTHER Myocardial infarction 19 FATHER ( at age 60) Review of Systems-General Review of Systems ROS-Unable to Obtain: unable to obtain full ROS 2/2 dementia Constitutional: see HPI Cardiovascular: see HPI; No chest pain; Hx of Intervention; No palpitations Gastrointestinal: diarrhea Genitourinary: No dysuria All Other Systems Reviewed Negative Unless Noted: Yes Reviewed Test Results Reviewed Test Results Lab Laboratory Tests 10/25/19 17:17: Glucometer 214H 10/25/19 23:36: Glucometer 229H 10/26/19 04:40: White Blood Count 8.0, Red Blood Count 2.86L, Hemoglobin 9.0L, Hematocrit 28L, Mean Corpuscular Volume 99, Mean Corpuscular Hemoglobin 32, Mean Corpuscular Hemoglobin Concent 32, Red Cell Distribution Width 15.4H, Platelet Count 203, Mean Platelet Volume 10.7H, Neutrophils (%) (Auto) 71, Lymphocytes (%) (Auto) 15, Monocytes (%) (Auto) 12, Eosinophils (%) (Auto) 2, Basophils (%) (Auto) 0, Neutrophils # (Auto) 5.7, Lymphocytes # (Auto) 1.2, Monocytes # (Auto) 1.0, Eosinophils # (Auto) 0.2, Basophils # (Auto) 0.0, Sodium Level 142, Potassium Level 3.6, Chloride Level 115H, Carbon Dioxide Level 20L, Anion Gap 7, Blood Urea Nitrogen 30H, Creatinine 1.19, Estimat Glomerular Filtration Rate 59, BUN/Creatinine Ratio 25, Glucose Level 152H, Calcium Level 8.9, Phosphorus Level 2.6, Magnesium Level 1.9, Total Bilirubin 0.5, Direct Bilirubin 0.4H, Indirect Bilirubin 0.1, Aspartate Amino Transf (AST/SGOT) 17, Alanine Aminotransferase (ALT/SGPT) < 6, Alkaline Phosphatase 129, B-Type Natriuretic Peptide 596.8H, Total Protein 5.3L, Albumin 2.3L 10/26/19 05:02: Glucometer 150H Microbiology 10/22/19 MRSA Screen - Final, Complete 10/22/19 Blood Culture - Preliminary, Resulted Staph, Coag Neg (ROR ENGINEER) 10/22/19 Urine Culture - Final, Complete NO GROWTH Physical Exam Physical Exam Vital Signs Vital Signs - First Documented 10/22/19 10/22/19 10/22/19 15:32 20:45 20:58 Temp 33.7 Pulse 64 Resp 12 B/P (MAP) 94/62 (73) Pulse Ox 93 O2 Delivery Room Air O2 Flow Rate 6.00 FiO2 21 Capillary Refill : Less Than 3 Seconds Height, Weight, BMI Height: 6'0.00" Weight: 177lbs. 9.6oz. 80.986245gl; 24.00 BMI Method:Stated General Appearance: No Apparent Distress, WD/WN Eyes: Bilateral Eye Normal Inspection, Bilateral Eye PERRL, Bilateral Eye EOMI HEENT: Normal ENT Inspection Neck: Normal Inspection Respiratory: Lungs Clear, No Accessory Muscle Use, No Respiratory Distress Cardiovascular: Regular Rate, Rhythm, No Murmur Gastrointestinal: Normal Bowel Sounds, Soft; No Guarding, No Rebound Genital/Rectal: Normal Genital Exam Extremity: Pedal Edema (trace non pitting), Slow Capillary Refill Neurologic/Psychiatric: Alert, Other (arouses to physical stimuli, ) Skin: Normal Color, Warm/Dry, Pallor Lymphatic: No Adenopathy A/P-Cardiology Admission Diagnosis HTN PAF CAD CHF hemothorax Assessment/Plan Sepsis, status post septic shock, better at this time. Continue to monitor, managed by primary care team Large right pleural hemothorax, s/p thoracentesis, Dr. Christie managing. Labile hypertension, history of orthostatic hypotension and syncope. Maintained on Toprol-XL at home. Patient had significant elevation in his blood pressure, I am still hesitant to add more blood pressure medication or increase his curren t dose of the medication due to the fact that he has significant orthostatic hypotension and syncope and fall. Continue on current medication continue to monitor. No changes are recommended Sick sinus syndrome, history of episodes of bradycardia with complete heart block, frequent PVCs, ventricular bigeminy and ventricular couplets, short PAT's. Status post permanent pacemaker implantation April 2015, using a Uversity device Advisa DR GONZALEZ, last interrogation was done October 11, 2109 showing good sensing and capture activity, no arrhythmia was detected. Continue to monitor Nonsustained ventricular tachycardia, has been maintained on amiodarone 200 mg daily. No recent arrhythmia on pacemaker interrogation, continue to monitor. Paroxysmal atrial fibrillation, maintained on Amiodarone, continue to monitor. [id number] score of 6, high risk, yearly risk of stroke without OAC is 9.8%. Unable to tolerate OAC at this time secondary to hemothorax and frequent falls. Coronary artery disease, multiple interventions in the past, most recent cardiac catheterization done March 14, 2015 revealed extensive coronary artery disease, heavily calcified system, with 40 percent distal left main coronary artery stenosis. 3 stents in LAD proximally with 50-60 percent in-stent restenosis. Distal LAD had 95 percent stenosis followed by 80 percent stenosis long segment, very small artery not amendable to intervention. Total occlusion of the first obtuse marginal branch filled by collaterals. Patent stent in the proximal mid second OM branch with moderate disease in the distal proper circumflex artery. Patent stent in the RCA with 50 percent proximal right coronary artery stenosis and 50-60 distal right coronary artery stenosis. Stress test in July 2016 showed fixed defect involving the whole inferior wall and inferoapical segment with dilated left ventricle, inferior wall hypokinesia, Ejection fraction 54 percent. Patient is asymptomatic, continue to monitor. Congestive heart failure, EF 45-50 percent, as well as diastolic dysfunction per most recent 2-D echocardiogram done 2018, continue to monitor. Hyperlipidemia, maintained on Crestor, continue to monitor History of CVA in 2010, mild residual right sided weakness, episodes of confusion occurred over the last year where patient became confused and drove over once to [place] and once to [place]. It was felt that it was a global ischemic attack with confusion, workup at that time was negative. He was seen by Dr. Jiménez and started on Dilantin, the dose was increased by Dr. Damon, followed and managed by primary care physician Peripheral vascular disease, had nonhealing wound right lower extremity, underwent peripheral angiogram on August 17, 2019 revealing total occlusion of right SFA, successful angioplasty then deployment of 2 superior stent [id number] and 6x 100 with excellent results and flow. Severe disease at the distal posterior tibial artery proximal anterior tibial artery. Heavily calcified left SFA with multiple segments of moderate to severe disease with occluded anterior tibial artery. Patient has known severe disease on the left side, we will continue with conservative management unless patient becomes symptomatically due to his comorbidities. Currently not having any symptoms, does not have any ulcerations left lower extremity. Continue to monitor. Plavix and ASA currently on hold. 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 Diabetes mellitus, followed and managed by primary care physician Carotid stenosis, had a recent carotid ultrasound done in Dr. Simmons office, I will obtain copy of the results Dementia, managed by primary care physician. Ex-Tobaccoism, patient smokes pipe, he stopped smoking in October, encouraged to continue with smoking cessation Peripheral neuropathy, maintained on gabapentin. Continue on current medication, continue to monitor Sleep apnea, severe on sleep study in October 2015, does not use his machine. Patient is DNR/DNI Thank you for allowing us to participate in the management of Mr. Nassar. This is Yee Herrmann PA-C, as a scribe for Dr. Karimi. Patient was seen and evaluated with Yee, examination performed, management plan was discussed, agree with the current scribed note, I made few changes to the note using Italic font Patient was unable to provide full history, lungs had bilateral rhonchi, heart is regular Continue current medication, evaluate ultrasound of the right groin Labile blood pressure, I'm hesitant to do any changes to his blood pressure medication due to the orthostatic hypotension and syncope Generalized weakness, continue with physical therapy Clinical Quality Measures DVT/VTE Risk/Contraindication: Risk Factor Score Per Nursin RFS Level Per Nursing on Admit: 4+=Very High YEE CLINTON Oct 26, 2019 11:39 SEBASTIÁN KARIMI MD Oct 26, 2019 13:31
--- NOTE | 2019-10-26 11:56 | NUR ---
CHANGED TO 1:1 SITTER PT NOT KEEPING O2 ON, ATTEMPTING TO GET OUT WITH 4 RAILS UP, AND PULLING ON [place] CATH.
--- NOTE | 2019-10-26 14:02 | NUR ---
Pastoral care visit.
--- NOTE | 2019-10-26 15:04 | Pulmonary Progress Note ---
Subjective Time Seen by a Provider: 14:59 Subjective/Events-last exam PT is on minimal oxygen. Sepsis Event Evaluation Height, Weight, BMI Height: 6'0.00" Weight: 177lbs. 9.6oz. 80.716981qx; 24.00 BMI Method:Stated Focused Exam Time of Focused Exam: 19:00 Exam Exam Vital Signs Date Time Temp Pulse Resp B/P (MAP) Pulse Ox O2 Delivery O2 Flow Rate FiO2 10/26/19 12:00 35.9 68 22 132/82 (99) 93 Nasal Cannula 2.00 10/26/19 09:32 90 Nasal Cannula 2.00 10/26/19 08:00 36.2 67 16 146/68 (94) 93 Nasal Cannula 2.00 10/26/19 06:38 70 10/26/19 03:20 36.7 67 24 166/74 (104) 96 Nasal Cannula 2.00 10/26/19 01:32 91 Nasal Cannula 2.00 10/26/19 01:00 71 10/25/19 23:25 36.5 105 22 188/65 (106) 94 Nasal Cannula 2.00 10/25/19 21:18 92 Nasal Cannula 3.00 10/25/19 20:27 160/78 (105) 10/25/19 20:00 Nasal Cannula 2.00 10/25/19 19:49 35.8 62 20 196/83 (120) 94 Nasal Cannula 2.00 10/25/19 19:00 70 10/25/19 16:16 36.1 62 20 185/77 (113) 98 Nasal Cannula 3.00 I & O 10/26/19 07:00 Intake Total 2250 ml Output Total 2135 ml Balance 115 ml Height & Weight Height: 6'0.00" Weight: 177lbs. 9.6oz. 80.523515gt; 24.00 BMI Method:Stated General Appearance: No Apparent Distress, WD/WN HEENT: Normal ENT Inspection Neck: Normal Inspection Respiratory: Lungs Clear, No Accessory Muscle Use, No Respiratory Distress Cardiovascular: Regular Rate, Rhythm, No Murmur Capillary Refill: Less Than 3 Seconds Peripheral Pulses: 2+ Radial Pulses (R), 2+ Radial Pulses (L) Gastrointestinal: non tender, soft Extremity: Pedal Edema (trace non pitting), Slow Capillary Refill Neurologic/Psychiatric: Alert, Other (arouses to physical stimuli, ) Skin: Normal Color, Warm/Dry, Pallor Lymphatic: No Adenopathy Results Lab Laboratory Tests 10/25/19 03:09 10/26/19 04:40 Assessment/Plan Assessment/Plan s/p Septic shock -Pt is a DNR/DNI -Currently on cefepime Large pleural right hemothorax/effusion -Pt pulls at all lines and tubes. I am reluctant to place chest tube because he will most likely pull it out. -S/p thoracentesis -Pt will probably need repeat thoracentesis -Monitor close -Currently on Lasix 40mg daily. BNP is now up to 596. will give 2mg of bumex Anasarca Multiple right sided rib fractures Metabolic lactic acidosis -Improving Dementia/confusion currently unresponsive except for heavy stimulation -hx of falls and fractured ribs CAD with pacemaker -Pt was on Plavix, Xarelto, and ASA -- currently on hold -Pt has had multiple falls per reports and right hemothorax HTN PAD Pressure Ulcers Wound Care Consult ELIEL YANES DO Oct 26, 2019 15:04
--- NOTE | 2019-10-26 15:16 | NUR ---
AGREE WITH WOUND CARE NURSE ASSESSMENT OF WOUNDS. ALSO NOTED ABRASION RT FOREHEAD, BIOFUELS RESEARCH SCIENTIST AND HEELS INTACT BUT ALLEVYN STEPHANI FOR PROTECTION.
[2019-10-26] MEDS ORDERED: KCL 20 MEQ TAB (K-DUR) PO NR (17:00)
[2019-10-26] MEDS ORDERED: BUMETANIDE 1 MG/4 ML (BUMEX) VIAL IV NR (17:00)
[2019-10-26] MEDS: TAMSULOSIN 0.4 MG (FLOMAX) CAP PO SCH (18:04)
[2019-10-27] MEDS: hydrALAZINE (APESOLINE) 20 MG/ML VIAL IV PRN (00:07)
[2019-10-27] MEDS: inSUlin ASPART (NovoLOG) 1 UNIT/0.01 ML (CHARGE PER UNIT) SC SCH ×5 (00:50→23:27)
[2019-10-27] MEDS: RT-ALBUTEROL/IPRATROPIUM 3 ML (DUONEB) VIAL INH SCH ×3 (02:41→14:58)
[2019-10-27 03:53] VITALS: BP 137/63
[2019-10-27 05:47] LABS: BASOPHILS % (AUTO) 0 % (0-10); EOSINOPHILS # (AUTO) 0.2 10^3/uL (0.0-0.3); EOSINOPHILS % (AUTO) 2 % (0-10); HEMATOCRIT 28 % (40-54); HEMOGLOBIN 8.9 G/DL (13.3-17.7); LYMPHOCYTES # (AUTO) 0.5 X 10^3 (1.0-4.0); LYMPHOCYTES % (AUTO) 5 % (12-44); MEAN CORPUSCULAR HEMOGLOBIN 31 PG (25-34); MEAN CORPUSCULAR HGB CONC 31 G/DL (32-36); MEAN CORPUSCULAR VOLUME 99 FL (80-99); MEAN PLATELET VOLUME 10.8 FL (7.4-10.4); MONOCYTES # (AUTO) 1.4 X 10^3 (0.0-1.0); MONOCYTES % (AUTO) 13 % (0-12); NEUTROPHILS # (AUTO) 8.3 X 10^3 (1.8-7.8); NEUTROPHILS % (AUTO) 80 % (42-75); PLATELET COUNT 203 10^3/uL (130-400); RED CELL DISTRIBUTION WIDTH 15.4 % (10.0-14.5); WHITE BLOOD COUNT 10.4 10^3/uL (4.3-11.0)
[2019-10-27 06:07] LABS: ANISOCYTOSIS SLIGHT; BAND NEUTROPHILS 0 %; BASOPHILS % (MANUAL) 1 %; EOSINOPHILS % (MANUAL) 4 %; LYMPHOCYTES % (MANUAL) 4 %; MONOCYTES % (MANUAL) 12 %; NEUTROPHILS % (MANUAL) 79 %; POIKILOCYTOSIS MODERATE; SCHISTOCYTES SLIGHT
[2019-10-27 06:29] LABS: CALCIUM 9.1 MG/DL (8.5-10.1); CREATININE SERUM 1.23 MG/DL (0.60-1.30); MAGNESIUM 1.7 MG/DL (1.6-2.4); POTASSIUM 4.2 MMOL/L (3.6-5.0)
[2019-10-27] MEDS: KCL 20 MEQ TAB (K-DUR) PO SCH (06:30)
[2019-10-27 07:28] VITALS: BP 148/65
--- NOTE | 2019-10-27 07:53 | Pulmonary Progress Note ---
Subjective Time Seen by a Provider: 12:25 Subjective/Events-last exam Pt is confuesed. Sepsis Event Evaluation Height, Weight, BMI Height: 6'0.00" Weight: 177lbs. 9.6oz. 80.991332bb; 24.00 BMI Method:Stated Focused Exam Time of Focused Exam: 19:00 Exam Exam Vital Signs Date Time Temp Pulse Resp B/P (MAP) Pulse Ox O2 Delivery O2 Flow Rate FiO2 10/27/19 07:28 35.4 61 24 148/65 (92) 91 Nasal Cannula 2.00 10/27/19 03:53 35.4 63 23 137/63 (87) 90 Nasal Cannula 2.00 10/27/19 02:41 93 Nasal Cannula 2.00 10/27/19 01:00 69 10/26/19 23:51 194/84 (120) 10/26/19 23:48 69 22 196/87 (123) 92 Nasal Cannula 2.00 10/26/19 21:54 94 Nasal Cannula 2.00 10/26/19 20:00 Nasal Cannula 2.00 10/26/19 19:22 35.3 59 16 155/70 (98) 93 Nasal Cannula 2.00 10/26/19 19:00 60 10/26/19 16:07 93 Nasal Cannula 2.00 10/26/19 15:15 35.8 61 16 157/72 (100) 94 Nasal Cannula 2.00 10/26/19 12:45 67 10/26/19 12:00 35.9 68 22 132/82 (99) 93 Nasal Cannula 2.00 10/26/19 09:32 90 Nasal Cannula 2.00 10/26/19 08:00 Nasal Cannula 2.00 10/26/19 08:00 36.2 67 16 146/68 (94) 93 Nasal Cannula 2.00 I & O 10/27/19 07:00 Intake Total 1940 ml Output Total 1525 ml Balance 415 ml Height & Weight Height: 6'0.00" Weight: 177lbs. 9.6oz. 80.654342wx; 24.00 BMI Method:Stated General Appearance: No Apparent Distress, WD/WN HEENT: Normal ENT Inspection Neck: Normal Inspection Respiratory: Lungs Clear, No Accessory Muscle Use, No Respiratory Distress Cardiovascular: Regular Rate, Rhythm, No Murmur Capillary Refill: Less Than 3 Seconds Peripheral Pulses: 2+ Radial Pulses (R), 2+ Radial Pulses (L) Gastrointestinal: non tender, soft Extremity: Pedal Edema (trace non pitting), Slow Capillary Refill Neurologic/Psychiatric: Alert, Other (arouses to physical stimuli, ) Skin: Normal Color, Warm/Dry, Pallor Lymphatic: No Adenopathy Results Lab Laboratory Tests 10/26/19 04:40 10/27/19 05:30 Assessment/Plan Assessment/Plan s/p Septic shock -Pt is a DNR/DNI -Currently on cefepime Large pleural right hemothorax/effusion -Pt pulls at all lines and tubes. I am reluctant to place chest tube because he will most likely pull it out. -S/p thoracentesis - will do repeat thoracentesis this AM -Monitor close -Currently on Lasix 40mg daily. BNP is now up to 596. pt was given extra 2mg of bumex yesterday. Repeat BNP Anasarca Multiple right sided rib fractures Metabolic lactic acidosis -Improving Dementia/confusion currently unresponsive except for heavy stimulation -hx of falls and fractured ribs CAD with pacemaker -Pt was on Plavix, Xarelto, and ASA -- currently on hold -Pt has had multiple falls per reports and right hemothorax HTN PAD Pressure Ulcers Wound Care Consult ELIEL YANES DO Oct 27, 2019 07:53
--- NOTE | 2019-10-27 07:54 | Progress Note ---
Subjective Time Seen by a Provider: 07:48 Subjective/Events-last exam Patient has not slept for 2 days. Patient swelling is less. Patient's kidney functions okay. Waiting for chest x-ray report today not read yet. Patient coughing . Hypertension better malignant Focused Exam Time of Focused Exam: 19:00 Objective Exam Vital Signs Date Time Temp Pulse Resp B/P (MAP) Pulse Ox O2 Delivery O2 Flow Rate FiO2 10/27/19 07:28 35.4 61 24 148/65 (92) 91 Nasal Cannula 2.00 10/27/19 03:53 35.4 63 23 137/63 (87) 90 Nasal Cannula 2.00 10/27/19 02:41 93 Nasal Cannula 2.00 10/27/19 01:00 69 10/26/19 23:51 194/84 (120) 10/26/19 23:48 69 22 196/87 (123) 92 Nasal Cannula 2.00 10/26/19 21:54 94 Nasal Cannula 2.00 10/26/19 20:00 Nasal Cannula 2.00 10/26/19 19:22 35.3 59 16 155/70 (98) 93 Nasal Cannula 2.00 10/26/19 19:00 60 10/26/19 16:07 93 Nasal Cannula 2.00 10/26/19 15:15 35.8 61 16 157/72 (100) 94 Nasal Cannula 2.00 10/26/19 12:45 67 10/26/19 12:00 35.9 68 22 132/82 (99) 93 Nasal Cannula 2.00 10/26/19 09:32 90 Nasal Cannula 2.00 10/26/19 08:00 Nasal Cannula 2.00 10/26/19 08:00 36.2 67 16 146/68 (94) 93 Nasal Cannula 2.00 I & O 10/27/19 07:00 Intake Total 1940 ml Output Total 1525 ml Balance 415 ml Capillary Refill : Less Than 3 SecondsLess Than 3 Seconds General Appearance: No Apparent Distress, WD/WN HEENT: Normal ENT Inspection Neck: Full Range of Motion, Normal Inspection Respiratory: No Accessory Muscle Use, No Respiratory Distress, Decreased Breath Sounds Cardiovascular: Regular Rate, Rhythm, No Murmur Gastrointestinal: non tender, soft Results Lab Laboratory Tests 10/27/19 05:30 Laboratory Tests 10/26/19 11:38: Glucometer 227H 10/26/19 17:31: Glucometer 252H 10/27/19 00:42: Glucometer 207H 10/27/19 05:30: White Blood Count 10.4, Red Blood Count 2.87L, Hemoglobin 8.9L, Hematocrit 28L, Mean Corpuscular Volume 99, Mean Corpuscular Hemoglobin 31, Mean Corpuscular Hemoglobin Concent 31L, Red Cell Distribution Width 15.4H, Platelet Count 203, Mean Platelet Volume 10.8H, Neutrophils (%) (Auto) 80H, Lymphocytes (%) (Auto) 5L, Monocytes (%) (Auto) 13H, Eosinophils (%) (Auto) 2, Basophils (%) (Auto) 0, Neutrophils # (Auto) 8.3H, Lymphocytes # (Auto) 0.5L, Monocytes # (Auto) 1.4H, Eosinophils # (Auto) 0.2, Basophils # (Auto) 0.0, Neutrophils % (Manual) 79, Lymphocytes % (Manual) 4, Monocytes % (Manual) 12, Eosinophils % (Manual) 4, Basophils % (Manual) 1, Band Neutrophils 0, Poikilocytosis MODERATE, Anisocytosis SLIGHT, Schistocytes SLIGHT, Sodium Level 138, Potassium Level 4.2, Chloride Level 110H, Carbon Dioxide Level 21, Anion Gap 7, Blood Urea Nitrogen 28H, Creatinine 1.23, Estimat Glomerular Filtration Rate 57, BUN/Creatinine Ratio 23, Glucose Level 108H, Calcium Level 9.1, Phosphorus Level 3.0, Magnesium Level 1.7 10/27/19 06:12: Glucometer 108 10/27/19 07:33: Glucometer 123H Microbiology 10/22/19 MRSA Screen - Final, Complete 10/22/19 Blood Culture - Preliminary, Resulted Staph, Coag Neg (SHERIFF'S OFFICER) 10/22/19 Urine Culture - Final, Complete NO GROWTH Assessment/Plan Assessment/Plan Assess & Plan/Chief Complaint Sepsis. Elevated lactic acid. Large pleural effusion. Had thoracentesis this morning. Hypotension. Hypothermia. Dementia. Parkinson disease. Diabetes. Right lung collapse . 10/25/19. Sepsis. Elevated lactic acid. Large pleural effusion. Hypotension. Hypertension history. Dementia. Parkinson disease. Diabetes. Right lung collapse. . 10/26/2019. Sepsis. Pretibial edema. Swelling of hands. Pleural effusion. Hypertension now dementia or Parkinson disease. Diabetes. Right lung collapse. . Sepsis. Edema. Pleural effusion. Malignant hypertension better. Parkinson disease. Diabetes. Right lung collapse. Dementia Clinical Quality Measures DVT/VTE Risk/Contraindication: Risk Factor Score Per Nursin RFS Level Per Nursing on Admit: 4+=Very High DENIZ KENT DO Oct 27, 2019 07:54
--- NOTE | 2019-10-27 08:35 | Cardiology Progress Note ---
Subjective Date Seen by Provider: Oct 27, 2019 Time Seen by Provider: 08:29 Subjective/Events-last exam Patient is sitting up in bed, no new complaint. Has nonproductive cough. Planning for thoracentesis later today Review of Systems General: No Chills, No Night Sweats; Fatigue, Malaise; No Appetite, No Other HEENT: No Head Aches, No Visual Changes, No Eye Pain, No Ear Pain, No Dysphasia, No Sinus Congestion, No Post Nasal Drip, No Sore Throat, No Other Pulmonary: Dyspnea; No Cough, No Pleuritic Chest Pain, No Other Cardiovascular: Edema; No: Chest Pain, Palpitations, Orthopnea, Paroxysmal Noc. Dyspnea, Lt Headedness, Other Focused Exam Time of Focused Exam: 19:00 Objective-Cardiology Exam Last Set of Vital Signs Vital Signs 10/25/19 10/27/19 10/27/19 13:52 07:28 12:08 Temp 35.4 Pulse 64 Resp 24 B/P (MAP) 148/65 (92) Pulse Ox 91 O2 Delivery Nasal Cannula O2 Flow Rate 2.00 FiO2 21 Capillary Refill : Less Than 3 SecondsLess Than 3 Seconds I&O Intake and Output 10/27/19 00:00 Intake Total 2140 ml Output Total 1835 ml Balance 305 ml Intake Oral 2140 ml Output Urine Total 1835 ml General: Alert, Cooperative, Mild Distress HEENT: Atraumatic, PERRLA Lungs: Clear to Auscultation, Normal Air Movement, Other (bilateral rhonchi) Heart: Normal S1, Normal S2 Abdomen: Normal Bowel Sounds, Soft Extremities: No Clubbing, No Cyanosis Skin: No Rashes Neuro: Normal Speech Psych/Mental Status: Other (confused) Results Lab Laboratory Tests 10/27/19 05:30 A/P-Cardiology Admission Diagnosis HTN PAF CAD CHF hemothorax Assessment/Plan Sepsis, status post septic shock, better at this time. Continue to monitor, man aged by primary care team Large right pleural hemothorax, s/p thoracentesis, Dr. Christie managing. Planning for repeat thoracentesis today Labile hypertension, history of orthostatic hypotension and syncope. Maintained on Toprol-XL at home. Patient had significant elevation in his blood pressure, I am still hesitant to add more blood pressure medication or increase his cur rent dose of the medication due to the fact that he has significant orthostatic hypotension and syncope and fall. Continue on current medication continue to monitor. No changes are recommended Sick sinus syndrome, history of episodes of bradycardia with complete heart block, frequent PVCs, ventricular bigeminy and ventricular couplets, short PAT's. Status post permanent pacemaker implantation April 2015, using a [employer] device Advisa DR GONZALEZ, last interrogation was done October 11, 2109 showing good sensing and capture activity, no arrhythmia was detected. Continue to monitor Nonsustained ventricular tachycardia, has been maintained on amiodarone 200 mg daily. No recent arrhythmia on pacemaker interrogation, continue to monitor. Paroxysmal atrial fibrillation, maintained on Amiodarone, continue to monitor. [id number] score of 6, high risk, yearly risk of stroke without OAC is 9.8%. Unable to tolerate OAC at this time secondary to hemothorax and frequent falls. Coronary artery disease, multiple interventions in the past, most recent cardiac catheterization done March 14, 2015 revealed extensive coronary artery disease, heavily calcified system, with 40 percent distal left main coronary artery stenosis. 3 stents in LAD proximally with 50-60 percent in-stent restenosis. Distal LAD had 95 percent stenosis followed by 80 percent stenosis long segment, very small artery not amendable to intervention. Total occlusion of the first obtuse marginal branch filled by collaterals. Patent stent in the proximal mid second OM branch with moderate disease in the distal proper circumflex artery. Patent stent in the RCA with 50 percent proximal right coronary artery stenosis and 50-60 distal right coronary artery stenosis. Stress test in July 2016 showed fixed defect involving the whole inferior wall and inferoapical segment with dilated left ventricle, inferior wall hypokinesia, Ejection fraction 54 percent. Patient is asymptomatic, continue to monitor. Congestive heart failure, EF 45-50 percent, as well as diastolic dysfunction per most recent 2-D echocardiogram done 2018, continue to monitor. Hyperlipidemia, maintained on Crestor, continue to monitor History of CVA in 2010, mild residual right sided weakness, episodes of confusion occurred over the last year where patient became confused and drove over once to [place] and once to [place]. It was felt that it was a global ischemic attack with confusion, workup at that time was negative. He was seen by Dr. Jiménez and started on Dilantin, the dose was increased by Dr. Damon, followed and managed by primary care physician Peripheral vascular disease, had nonhealing wound right lower extremity, underwent peripheral angiogram on August 17, 2019 revealing total occlusion of right SFA, successful angioplasty then deployment of 2 superior stent 6150 and 6x 100 with excellent results and flow. Severe disease at the distal posterior tibial artery proximal anterior tibial artery. Heavily calcified left SFA with multiple segments of moderate to severe disease with occluded anterior tibial artery. Patient has known severe disease on the left side, we will continue with conservative management unless patient becomes symptomatically due to his comorbidities. Currently not having any symptoms, does not have any ulcerations left lower extremity. Continue to monitor. Plavix and ASA currently on hold. 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 Diabetes mellitus, followed and managed by primary care physician Carotid stenosis, had a recent carotid ultrasound done in Dr. Simmons office, I will obtain copy of the results Dementia, managed by primary care physician. Ex-Tobaccoism, patient smokes pipe, he stopped smoking in October, encouraged to continue with smoking cessation Peripheral neuropathy, maintained on gabapentin. Continue on current medication, continue to monitor Sleep apnea, severe on sleep study in October 2015, does not use his machine. Patient is DNR/DNI Patient was seen and evaluated with Yee, examination performed, management plan was discussed, agree with the current scribed note, I made few changes to the note using Italic font Patient is laying down in bed, feeling better, still short of breath this morning, scheduled for thoracentesis again today. Lungs had bilateral rhonchi. Continue on current medication continue with physical therapy. Receiving antibiotic for sepsis and improving slowly. Clinical Quality Measures DVT/VTE Risk/Contraindication: Risk Factor Score Per Nursin RFS Level Per Nursing on Admit: 4+=Very High YEE CLINTON Oct 27, 2019 8:35 am SEBASTIÁN VALLE MD Oct 27, 2019 12:40 pm
--- NOTE | 2019-10-27 08:40 | Diagnostic Imaging Report ---
INDICATION: Sepsis, cardiac pacemaker COMPARISON: 10/26/2019 FINDINGS: Single view chest demonstrates cardiac enlargement with unchanged bilateral pulmonary infiltrates more so on the right than the left. Bilateral effusions right greater than left are unchanged. There is no pneumothorax. Right IJ catheter and pacemaker are stable. IMPRESSION: Unchanged aeration of the lungs. Dictated by: Dictated on workstation # [id number]
[2019-10-27] MEDS ORDERED: FUROSEMIDE 40 MG/4 ML INJ (LASIX) IVP SCH (09:00)
[2019-10-27] MEDS ORDERED: PHARMACY TO DOSE IV SCH (09:00)
[2019-10-27] MEDS ORDERED: PIPERACILLIN/TAZOBACTAM (BULK) 4.5 GM in NS (IVPB) 100 ML IV NR (09:32)
--- NOTE | 2019-10-27 09:39 | NUR ---
VANCOMYCIN DOSING BASED ON PATIENT'S PREVIOUS DOSE AND TROUGH LEVEL - WILL RESTART VANC 1250 MG Q24H CHECK TROUGH LEVEL 10/29 0900
[2019-10-27] MEDS: AMIODARONE 200 MG (CORDARONE) TAB PO SCH (10:09)
[2019-10-27] MEDS: VANCOMYCIN 1250 MG/NS 250 ML IVPB IV SCH ×2 (10:21)
--- NOTE | 2019-10-27 10:30 | NUR ---
THORACENTESIS DONE AT BEDSIDE BY DR YANES, 2000 ML BLOODY DRAINAGE, BOTTLES AND CYTOLOGY REQ SENT TO LAB, ABHISHEK WELL, SITTER REMAINS AT BEDSIDE, [place] PATENT, CALL LIGHT WITHIN REACH
[2019-10-27] MEDS ORDERED: NS 100 ML (IVPB) BAG IV ONE (10:45)
[2019-10-27] MEDS ORDERED: IOHEXOL 350 MG/ML 100 ML (OMNIPAQUE 350) VIAL IV ONE (10:45)
[2019-10-27] MEDS ORDERED: HOLD METFORMIN - RECEIVED CONTRAST 20 ML VIAL IV SCH (10:45)
--- NOTE | 2019-10-27 11:04 | Pulmonary Procedures ---
Pulmonary Procedures Date of Procedure Date of Service: Oct 27, 2019 Procedure: US guided right complex thoracentesis Preop DX: pleural effusion post op DX: Same 2000 cc of bloody red fluid obtained) Complications: None After informed consent obtained US was used to localize pleural fluid. Pt has R pleural effusions. Skin was anesthetized at approximately the 10th ICS posterior axillary line. Thoracentesis needle was advanced through the 10th ICS posterior axillary line. Needle was removed and catheter left in place. 2000 cc of bloody red fluid obtained using vacuum bottles. Catheter was then removed. Pt tolerated procedure well. No complications noted. ELIEL YANES DO Oct 27, 2019 11:04
--- NOTE | 2019-10-27 11:38 | Diagnostic Imaging Report ---
INDICATION: Status post thoracentesis. TIME OF EXAM: 10:58 AM Correlation is made with prior chest from earlier same day. There has been reduction in right-sided effusion, status post thoracentesis. There is no pneumothorax identified. There are bilateral pulmonary infiltrates noted. Cardiac pacer is in place. The right IJ line appears to be malpositioned and coiled in the low right neck. IMPRESSION: 1. Decrease in right pleural effusion, status post thoracentesis. No pneumothorax is seen. 2. Continued bilateral infiltrates. 3. Malpositioned right IJ line. Dictated by: Dictated on workstation # [id number]
--- NOTE | 2019-10-27 12:00 | NUR ---
CENTRAL LINE REMOVED INSTRUCTED BY DR YANES, CATHETER TIP SENT TO LAB
--- NOTE | 2019-10-27 12:19 | Diagnostic Imaging Report ---
PROCEDURE: CT chest without contrast. TECHNIQUE: Multiple contiguous axial images were obtained through the chest without the use of intravenous contrast. Auto Exposure Controls were utilized during the CT exam to meet ALARA standards for radiation dose reduction. INDICATION: Postthoracentesis. COMPARISON: Chest radiograph on 10/27/2019. FINDINGS: There is a small right pleural effusion status post thoracentesis. No evidence of pneumothorax. A moderate left pleural effusion is present. Dependent atelectasis is seen bilaterally. Patchy and groundglass opacities are seen throughout the lungs, with the greatest involvement in the right lower lobe. No central endobronchial obstructing lesions are seen. The heart is enlarged with a left pectoral pacer in place. A small pericardial effusion is present. There is calcified aortic and coronary atherosclerotic plaque. Mildly prominent mediastinal lymph nodes are seen. Right-sided subacute/chronic rib fractures are again visualized. No acute osseous abnormalities. Limited views of the upper abdominal structures demonstrate no acute abnormalities. Stable fat-containing nodule in the left adrenal gland. IMPRESSION: 1. Small residual right pleural effusion status post thoracentesis. No evidence of pneumothorax. A moderate left pleural effusion is present. 2. Patchy and groundglass opacities throughout the lungs, greatest in the right lower lobe. These findings may represent edema and/or infection. Dependent atelectasis is seen bilaterally. 3. Cardiomegaly with small pericardial effusion. Dictated by: Dictated on workstation # [id number]
[2019-10-27 12:55] VITALS: BP 126/72
[2019-10-27] MEDS: SINEMET CR 50/200 (CARBIDOPA/LEVODOPA SA) TAB PO SCH ×3 (13:25→21:21)
--- NOTE | 2019-10-27 14:50 | NUR ---
SARAH HERE TO INSERT MIDLINE, STARTED IN RIGHT UPPER ARM
[2019-10-27 16:19] VITALS: BP 117/54
[2019-10-27] MEDS: PIPERACILLIN/TAZOBACTAM (BULK) 4.5 GM in NS (IVPB) 100 ML IV SCH ×2 (16:44→23:27)
[2019-10-27] MEDS: TAMSULOSIN 0.4 MG (FLOMAX) CAP PO SCH (18:11)
[2019-10-27 20:00] VITALS: BP 97/54
[2019-10-27 23:16] VITALS: BP 110/55
[2019-10-28] VITALS (7 sets, daily range): BP systolic 76–99; BP diastolic 44–62
[2019-10-28] MEDS: RT-ALBUTEROL/IPRATROPIUM 3 ML (DUONEB) VIAL INH SCH ×5 (02:57→22:00)
[2019-10-28 05:15] LABS: BASOPHILS % (AUTO) 0 % (0-10); EOSINOPHILS # (AUTO) 0.1 10^3/uL (0.0-0.3); EOSINOPHILS % (AUTO) 1 % (0-10); HEMATOCRIT 28 % (40-54); HEMOGLOBIN 8.9 G/DL (13.3-17.7); LYMPHOCYTES # (AUTO) 1.1 X 10^3 (1.0-4.0); LYMPHOCYTES % (AUTO) 9 % (12-44); MEAN CORPUSCULAR HEMOGLOBIN 31 PG (25-34); MEAN CORPUSCULAR HGB CONC 32 G/DL (32-36); MEAN CORPUSCULAR VOLUME 97 FL (80-99); MEAN PLATELET VOLUME 11.2 FL (7.4-10.4); MONOCYTES # (AUTO) 0.8 X 10^3 (0.0-1.0); MONOCYTES % (AUTO) 7 % (0-12); NEUTROPHILS % (AUTO) 83 % (42-75); PLATELET COUNT 168 10^3/uL (130-400); RED CELL DISTRIBUTION WIDTH 15.6 % (10.0-14.5); WHITE BLOOD COUNT 11.9 10^3/uL (4.3-11.0)
[2019-10-28 05:30] LABS: CALCIUM 8.5 MG/DL (8.5-10.1); CREATININE SERUM 1.55 MG/DL (0.60-1.30); MAGNESIUM 1.8 MG/DL (1.6-2.4); PHOSPHORUS 3.3 MG/DL (2.3-4.7); POTASSIUM 4.6 MMOL/L (3.6-5.0)
[2019-10-28] MEDS: inSUlin ASPART (NovoLOG) 1 UNIT/0.01 ML (CHARGE PER UNIT) SC SCH ×3 (06:01→19:30)
[2019-10-28] MEDS: KCL 20 MEQ TAB (K-DUR) PO SCH (06:35)
--- NOTE | 2019-10-28 06:40 | Diagnostic Imaging Report ---
INDICATION: Hypothermia. Portable chest 4:02 AM There is a dual chamber pacemaker. There is diffuse alveolar infiltrate in the right lung. There is minimal infiltrate and left medial basilar atelectasis that appears stable compared to the previous day. Infiltrate and left medial basilar atelectasis. IMPRESSION: Diffuse alveolar nodular infiltrates throughout the right lung appears worse compared to the previous day. Dictated by: Dictated on workstation # [id number]
[2019-10-28] MEDS: PIPERACILLIN/TAZOBACTAM (BULK) 4.5 GM in NS (IVPB) 100 ML IV SCH ×3 (06:43→21:52)
--- NOTE | 2019-10-28 07:53 | Progress Note ---
Subjective Time Seen by a Provider: 07:51 Subjective/Events-last exam Patient confused this morning. Patient may be aspirating. To have evaluation with speech therapy Focused Exam Time of Focused Exam: 19:00 Objective Exam Vital Signs Date Time Temp Pulse Resp B/P (MAP) Pulse Ox O2 Delivery O2 Flow Rate FiO2 10/28/19 07:00 60 10/28/19 03:52 36.0 60 18 99/54 (69) 93 Nasal Cannula 5.00 10/28/19 02:57 88 Nasal Cannula 4.00 10/28/19 01:00 60 10/27/19 23:16 36.3 60 20 110/55 (73) 90 Nasal Cannula 4.00 10/27/19 20:00 35.9 62 20 97/54 (68) 91 Nasal Cannula 3.50 10/27/19 20:00 Nasal Cannula 4.00 10/27/19 19:00 64 10/27/19 16:19 65 18 117/54 (75) 90 3.00 10/27/19 15:03 88 Nasal Cannula 2.00 10/27/19 12:55 35.6 60 22 126/72 (90) 91 Nasal Cannula 2.00 10/27/19 12:08 64 10/27/19 08:00 Nasal Cannula 2.00 I & O 10/28/19 07:00 Intake Total 1922.5 ml Output Total 1275 ml Balance 647.5 ml Capillary Refill : Less Than 3 SecondsLess Than 3 Seconds General Appearance: No Apparent Distress, WD/WN HEENT: Normal ENT Inspection Neck: Normal Inspection Respiratory: No Accessory Muscle Use, No Respiratory Distress Cardiovascular: Regular Rate, Rhythm, No Murmur Gastrointestinal: non tender, soft Results Lab Laboratory Tests 10/28/19 05:00 Laboratory Tests 10/27/19 11:54: Glucometer 167H 10/27/19 18:13: Glucometer 265H 10/27/19 23:14: Glucometer 217H 10/28/19 05:00: White Blood Count 11.9H, Red Blood Count 2.83L, Hemoglobin 8.9L, Hematocrit 28L, Mean Corpuscular Volume 97, Mean Corpuscular Hemoglobin 31, Mean Corpuscular Hemoglobin Concent 32, Red Cell Distribution Width 15.6H, Platelet Count 168, Mean Platelet Volume 11.2H, Neutrophils (%) (Auto) 83H, Lymphocytes (%) (Auto) 9L, Monocytes (%) (Auto) 7, Eosinophils (%) (Auto) 1, Basophils (%) (Auto) 0, Neutrophils # (Auto) 10.0H, Lymphocytes # (Auto) 1.1, Monocytes # (Auto) 0.8, Eosinophils # (Auto) 0.1, Basophils # (Auto) 0.0, Sodium Level 138, Potassium Level 4.6, Chloride Level 110H, Carbon Dioxide Level 20L, Anion Gap 8, Blood Urea Nitrogen 34H, Creatinine 1.55H, Estimat Glomerular Filtration Rate 44, BUN/Creatinine Ratio 22, Glucose Level 103, Calcium Level 8.5, Phosphorus Level 3.3, Magnesium Level 1.8 10/28/19 05:02: Glucometer 113H Microbiology 10/22/19 MRSA Screen - Final, Complete 10/22/19 Blood Culture - Preliminary, Resulted Staph, Coag Neg ([employer]PER[employer] C[employer] ENGINEER) 10/22/19 Urine Culture - Final, Complete NO GROWTH Assessment/Plan Assessment/Plan Assess & Plan/Chief Complaint Sepsis. Elevated lactic acid. Large pleural effusion. Had thoracentesis this morning. Hypotension. Hypothermia. Dementia. Parkinson disease. Diabetes. Right lung collapse . 10/25/19. Sepsis. Elevated lactic acid. Large pleural effusion. Hypotension. Hypertension history. Dementia. Parkinson disease. Diabetes. Right lung collapse. . 10/26/2019. Sepsis. Pretibial edema. Swelling of hands. Pleural effusion. Hypertension now dementia or Parkinson disease. Diabetes. Right lung collapse. . Sepsis. Edema. Pleural effusion. Malignant hypertension better. Parkinson disease. Diabetes. Right lung collapse. Dementia. . Once we are . Pleural effusion. Parkinson disease. Dementia. Diabetes. Patient may be aspirating to get speech therapy involved Clinical Quality Measures DVT/VTE Risk/Contraindication: Risk Factor Score Per Nursin RFS Level Per Nursing on Admit: 4+=Very High DENIZ KENT DO Oct 28, 2019 07:53
[2019-10-28] MEDS: AMIODARONE 200 MG (CORDARONE) TAB PO SCH (08:45)
[2019-10-28] MEDS: SINEMET CR 50/200 (CARBIDOPA/LEVODOPA SA) TAB PO SCH ×3 (08:46→20:54)
--- NOTE | 2019-10-28 08:54 | Pulmonary Progress Note ---
Subjective Time Seen by a Provider: 08:49 Sepsis Event Evaluation Height, Weight, BMI Height: 6'0.00" Weight: 177lbs. 9.6oz. 80.443778wf; 24.00 BMI Method:Stated Focused Exam Time of Focused Exam: 19:00 Exam Exam Vital Signs Date Time Temp Pulse Resp B/P (MAP) Pulse Ox O2 Delivery O2 Flow Rate FiO2 10/28/19 08:20 88 Nasal Cannula 5.00 10/28/19 08:00 35.8 59 24 83/44 (57) 91 Nasal Cannula 5.00 10/28/19 07:00 60 10/28/19 03:52 36.0 60 18 99/54 (69) 93 Nasal Cannula 5.00 10/28/19 02:57 88 Nasal Cannula 4.00 10/28/19 01:00 60 10/27/19 23:16 36.3 60 20 110/55 (73) 90 Nasal Cannula 4.00 10/27/19 20:00 35.9 62 20 97/54 (68) 91 Nasal Cannula 3.50 10/27/19 20:00 Nasal Cannula 4.00 10/27/19 19:00 64 10/27/19 16:19 65 18 117/54 (75) 90 3.00 10/27/19 15:03 88 Nasal Cannula 2.00 10/27/19 12:55 35.6 60 22 126/72 (90) 91 Nasal Cannula 2.00 10/27/19 12:08 64 I & O 10/28/19 07:00 Intake Total 1922.5 ml Output Total 1275 ml Balance 647.5 ml Height & Weight Height: 6'0.00" Weight: 177lbs. 9.6oz. 80.628357qp; 24.00 BMI Method:Stated General Appearance: No Apparent Distress, WD/WN HEENT: Normal ENT Inspection Neck: Normal Inspection Respiratory: No Accessory Muscle Use, No Respiratory Distress Cardiovascular: Regular Rate, Rhythm, No Murmur Capillary Refill: Less Than 3 Seconds Peripheral Pulses: 2+ Radial Pulses (R), 2+ Radial Pulses (L) Gastrointestinal: non tender, soft Extremity: Pedal Edema (trace non pitting), Slow Capillary Refill Neurologic/Psychiatric: Alert, Other (arouses to physical stimuli, ) Skin: Normal Color, Warm/Dry, Pallor Lymphatic: No Adenopathy Results Lab Laboratory Tests 10/27/19 05:30 10/28/19 05:00 Assessment/Plan Assessment/Plan Large pleural right hemothorax/effusion -S/p thoracentesis x 2 -Monitor close -Currently on Lasix 40mg daily. Hold lasix secondary to hypotension and worsening renal failure. PNA with Worsening leukocytosis - probable aspiration PNA -CXR reviewed -Central line d/c'd yesterday -Central line tip sent for C&S -Vanco/ zosyn started 10/28 -NPO Anasarca Multiple right sided rib fractures Metabolic lactic acidosis -Improving -Repeat LA Dementia/confusion currently unresponsive except for heavy stimulation -hx of falls and fractured ribs CAD with pacemaker -Pt was on Plavix, Xarelto, and ASA -- currently on hold -Pt has had multiple falls per reports and right hemothorax HTN PAD Pressure Ulcers Wound Care Consult ELIEL YANES DO Oct 28, 2019 08:54
--- NOTE | 2019-10-28 09:44 | Cardiology Progress Note ---
Subjective Date Seen by Provider: Oct 28, 2019 Time Seen by Provider: 09:40 Subjective/Events-last exam Patient is laying down in bed, lethargic. No chest pain Review of Systems General: Fatigue, Malaise Pulmonary: Dyspnea Cardiovascular: Edema Focused Exam Lactate Level 10/28/19 09:20: Time of Focused Exam: 19:00 Lactic Acid Level Laboratory Tests Test 10/28/19 09:20 Objective-Cardiology Exam Last Set of Vital Signs Vital Signs 10/25/19 10/28/19 10/28/19 10/28/19 13:52 08:00 08:56 09:02 Temp 35.8 Pulse 60 Resp 24 B/P (MAP) 88/52 (64) Pulse Ox 96 O2 Delivery Nasal Cannula O2 Flow Rate 5.00 FiO2 21 Capillary Refill : Less Than 3 SecondsLess Than 3 Seconds I&O Intake and Output 10/28/19 00:00 Intake Total 2102.5 ml Output Total 1475 ml Balance 627.5 ml Intake Oral 1600 ml IV Total 502.5 ml Output Urine Total 1475 ml General: Alert, Cooperative, Mild Distress HEENT: Atraumatic, PERRLA Lungs: Clear to Auscultation, Normal Air Movement, Other (bilateral rhonchi) Heart: Normal S1, Normal S2 Abdomen: Normal Bowel Sounds, Soft Extremities: No Clubbing, No Cyanosis Skin: No Rashes Neuro: Normal Speech Psych/Mental Status: Other (confused) Results Lab Laboratory Tests 10/28/19 05:00 A/P-Cardiology Admission Diagnosis HTN PAF CAD CHF hemothorax Assessment/Plan Sepsis, status post septic shock, better at this time, managed by primary care team Hypotension, history of labile hypertension with orthostatic hypotension and syncope. He was maintained on Toprol at home. Receiving hydralazine at night, this morning he is severely hypotensive. I will give him a bolus of 500 mL of saline and stop hydralazine. Started on Toprol XL 25 mg daily and I added parameter to hold it for systolic blood pressure less than 110 History of multiple falls due to orthostatic hypotension. He does not recall a fall but he has some bruising on her stress and large right pleural hemothorax, had thoracentesis, followed by Dr. Christie Sick sinus syndrome, history of episodes of bradycardia with complete heart block, frequent PVCs, ventricular bigeminy and ventricular couplets, short PAT's. Status post permanent pacemaker implantation April 2015, using a [employer] device Advisa DR GONZALEZ, last interrogation was done October 11, 2109 showing good sensing and capture activity, no arrhythmia was detected. Continue to monitor Nonsustained ventricular tachycardia, has been maintained on amiodarone 200 mg daily. No recent arrhythmia on pacemaker interrogation, continue to monitor. Paroxysmal atrial fibrillation, maintained on Amiodarone, continue to monitor. [id number] score of 6, high risk, yearly risk of stroke without OAC is 9.8%. Unable to tolerate OAC at this time secondary to hemothorax and frequent falls. Coronary artery disease, multiple interventions in the past, most recent cardiac catheterization done March 14, 2015 revealed extensive coronary artery disease, heavily calcified system, with 40 percent distal left main coronary artery stenosis. 3 stents in LAD proximally with 50-60 percent in-stent restenosis. Distal LAD had 95 percent stenosis followed by 80 percent stenosis long segment, very small artery not amendable to intervention. Total occlusion of the first obtuse marginal branch filled by collaterals. Patent stent in the proximal mid second OM branch with moderate disease in the distal proper circumflex artery. Patent stent in the RCA with 50 percent proximal right coronary artery stenosis and 50-60 distal right coronary artery stenosis. Stress test in July 2016 showed fixed defect involving the whole inferior wall and inferoapical segment with dilated left ventricle, inferior wall hypokinesia, Ejection fraction 54 percent. Patient is asymptomatic, continue to monitor. Congestive heart failure, EF 45-50 percent, as well as diastolic dysfunction per most recent 2-D echocardiogram done 2018, continue to monitor. Hyperlipidemia, maintained on Crestor, continue to monitor History of CVA in 2010, mild residual right sided weakness, episodes of confusi on occurred over the last year where patient became confused and drove over once to [place] and once to [place]. It was felt that it was a global ischemic attack with confusion, workup at that time was negative. He was seen by Dr. Jiménez and started on Dilantin, the dose was increased by Dr. Damon, followed and managed by primary care physician Peripheral vascular disease, had nonhealing wound right lower extremity, underwent peripheral angiogram on August 17, 2019 revealing total occlusion of right SFA, successful angioplasty then deployment of 2 superior stent 6150 and 6x 100 with excellent results and flow. Severe disease at the distal posterior tibial artery proximal anterior tibial artery. Heavily calcified left SFA with multiple segments of moderate to severe disease with occluded anterior tibial artery. Patient has known severe disease on the left side, we will continue with conservative management unless patient becomes symptomatically due to his comorbidities. Currently not having any symptoms, does not have any ulcerations left lower extremity. Continue to monitor. Plavix and ASA currently on hold. 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 Diabetes mellitus, followed and managed by primary care physician Carotid stenosis, had a recent carotid ultrasound done in Dr. Simmons office, I will obtain copy of the results Dementia, managed by primary care physician. Ex-Tobaccoism, patient smokes pipe, he stopped smoking in October, encouraged to continue with smoking cessation Peripheral neuropathy, maintained on gabapentin. Continue on current medication, continue to monitor Sleep apnea, severe on sleep study in October 2015, does not use his machine. Patient is DNR/DNI Clinical Quality Measures DVT/VTE Risk/Contraindication: Risk Factor Score Per Nursin RFS Level Per Nursing on Admit: 4+=Very High SEBASTIÁN VALLE MD Oct 28, 2019 09:44
[2019-10-28 09:53] LABS: INR 1.7 (0.8-1.4); PROTHROMBIN TIME PATIENT 20.7 SEC (12.2-14.7)
[2019-10-28] MEDS ORDERED: NS IV 500 ML 500 ML ONE (09:57)
[2019-10-28] MEDS ORDERED: NS IV 500 ML 500 ML IV STA (10:54)
--- NOTE | 2019-10-28 11:03 | NUR ---
PALLIATIVE CARE RN in to see patient after receiving a hospice consult. He is alert and pleasantly confused. He denies pain and the knowledge of why he is here in the hospital. Dis speak with his Manisha about the hospice referral and she is well aware of hospice as she work with Dr. Damon. Now NPO for swallow study due to suspected aspiration. WIll follow on and assist as able.
[2019-10-28] MEDS: VANCOMYCIN 1250 MG/NS 250 ML IVPB IV SCH ×2 (11:51)
--- NOTE | 2019-10-28 14:43 | NUR ---
Dr. Damon notified of urine output total (100ml)
[2019-10-28] MEDS ORDERED: D5 NS 1000 ML IV SOLUTION 1,000 ML IV SCH ×2 (15:45)
--- NOTE | 2019-10-28 15:57 | Speech Therapy Progress Note ---
Therapy Progress Note Patient orders received for Bedside Swallow Evaluation. ST presented in patient room to complete BDE, however patient's son present and stated his father was to receive Modified Barium Swallow Study. This ST attempted to explain to patient's son the procedure for scheduling an MBS. Patient's son was disruptive during the ST's explanation. No BDE will be completed due to need for scheduled MBS for safest oral intake. ST will follow on Thursday as needed. PATRICK HAWTHORNE Oct 28, 2019 15:56
[2019-10-28] MEDS: TAMSULOSIN 0.4 MG (FLOMAX) CAP PO SCH (16:21)
--- NOTE | 2019-10-28 16:51 | NUR ---
Nursing staff and family notified of aspiration risk and proper precautions. HOB should elevated when eating or drinking, pureed diet, thicken liquids, monitor foe signs of aspiration. Modified barium swallow eval scheduled for Thursday. Will continue to monitor
--- NOTE | 2019-10-28 17:23 | NUR ---
Pt's family (son) refused BP check at this time. Son stated "he will be on hospice soon why don't we give him a break right now". The vitals that were obtained were charted, will attempt BP during next Vitals check.
[2019-10-29 00:05] VITALS: BP 92/62
[2019-10-29] MEDS: inSUlin ASPART (NovoLOG) 1 UNIT/0.01 ML (CHARGE PER UNIT) SC SCH (00:06)
--- NOTE | 2019-10-29 04:38 | NUR ---
0340- ASKED PATIENT'S SON TO STEP OUT OF THE ROOM SO WE COULD GET A CHEST XRAY. SON GOES DOWNSTAIRS WHILE WE DO CHEST XRAY AT THIS TIME. 0345- ASSISTED X-RAY TECH TO POSITION PATIENT FOR DAILY CHEST X-RAY. PATIENT WOKE UP AND SPOKE TO US AND PRECISION LAYOUT WORKER HELPED REPOSITION PATIENT IN BED AND GET HIM COMFORTABLE. 0355- TEACHER MUSIC CALLS AND SAYS PATIENT IS HEART RATE IS DIPPING DOWN TO THE 30S. 0356- THIS RN GOES TO THE PATIENT ROOM TO CHECK ON PATIENT. TAKES VITALS SIGNS. NO RESPIRATIONS OR HEART BEAT CAN BE AUSCULTATED AT THIS TIME. 0359- SECOND RN IS CALLED TO BEDSIDE, FLO MARTINEZ. CONFIRMED WITH RESPIRATIONS CEASED AND NO PERCEPTIBLE HEART BEAT. SON RETURNS AND IS TOLD THE NEWS OF HIS FATHERS PASSING. SON CALLS FAMILY AND IS NOTIFIED. 0420- FAMILY MAKES IN TO THE HOSPITAL. FAMILY AT BEDSIDE WITH PATIENT AT THIS TIME.
--- NOTE | 2019-10-29 07:12 | Diagnostic Imaging Report ---
Indication: Septic shock Portable chest 3:46 AM There is a dual-chamber pacemaker. There is complete opacification right hemithorax and near complete opacification of left hemithorax both of which appear worse than on the previous day. IMPRESSION: Unfavorable changes in the chest with worsening bilateral pulmonary infiltrates. Dictated by: Dictated on workstation # [id number]
[2019-10-29] MEDS ORDERED: TROUGH ORDER-PHARMACY XX NR (09:00)
--- NOTE | 2019-10-31 07:48 | Discharge Summary ---
Diagnosis/Chief Complaint Date of Admission Oct 22, 2019 at 19:15 Date of Discharge Oct 29, 2019 at 09:58 Discharge Time: 07:43 Discharge Diagnosis Acidosis. Benign prostatic Hyperplasia. Chronic diastolic congestive heart failure. Dementia. DO NOT RESUSCITATE. Hypertension. Orthostatic hypotension. History of sick sinus syndrome. Pneumonia. Sepsis. Severe sepsis with septic shock. Diabetes. Parkinson disease. Hyperlipidemia. Coronary artery disease. History of CVA. Peripheral vascular disease. 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 Constipation. Dehydration. DO NOT INTUBATE. Pleural effusion. Pressure ulcer of right ankle. Pressure ulcer and sacral region stage II Discharge Summary Procedures Thoracentesis Consultations Cardiology. Pulmonology Discharge Physical Examination Allergies: Coded Allergies: No Known Drug Allergies (Unverified , 09/06/18) Vitals & I&Os Vital Signs Date Time Temp Pulse Resp B/P (MAP) Pulse Ox O2 Delivery O2 Flow Rate FiO2 10/29/19 01:00 62 10/29/19 00:05 36.2 21 92/62 (72) 90 High Flow N/C 12.00 10/25/19 13:52 21 Hospital Course Patient . Patient had one problem after another during hospitalization Labs (last 24 hrs) Laboratory Tests 10/22/19 15:40: White Blood Count 12.1H, Red Blood Count 3.33L, Hemoglobin 10.4L, Hematocrit 33L , Mean Corpuscular Volume 100H, Mean Corpuscular Hemoglobin 31, Mean Corpuscular Hemoglobin Concent 31L, Red Cell Distribution Width 15.9H, Platelet Count 198, Mean Platelet Volume 11.6H, Neutrophils (%) (Auto) 76H, Lymphocytes (%) (Auto) 13, Monocytes (%) (Auto) 10, Eosinophils (%) (Auto) 1, Basophils (%) (Auto) 0, Neutrophils # (Auto) 9.2H, Lymphocytes # (Auto) 1.5, Monocytes # (Auto) 1.2H, Eosinophils # (Auto) 0.1, Basophils # (Auto) 0.0, Prothrombin Time 45.1*H, INR Comment 4.5H, Activated Partial Thromboplast Time 60H, Sodium Level 140, Potassium Level 3.6, Chloride Level 105, Carbon Dioxide Level 23, Anion Gap 12, Blood Urea Nitrogen 34H, Creatinine 1.91H, Estimat Glomerular Filtration Rate 34, BUN/Creatinine Ratio 18, Glucose Level 182H, Lactic Acid Level 2.21*H, Calcium Level 8.8, Corrected Calcium 9.8, Total Bilirubin 0.6, Aspartate Amino Transf (AST/SGOT) 13, Alanine Aminotransferase (ALT/SGPT) < 6, Alkaline Phosphatase 154H, Troponin I 0.075H, Total Protein 5.5L, Albumin 2.7L 10/22/19 15:45: Glucometer 197H 10/22/19 16:00: Urine Color YELLOW, Urine Clarity SL CLOUDY, Urine pH 5.0, Urine Specific [place] 1.025H, Urine Protein 1+H, Urine Glucose (UA) 1+H, Urine Ketones TRACEH, Urine Nitrite NEGATIVE, Urine Bilirubin NEGATIVE, Urine Urobilinogen 0.2, Urine Leukocyte Esterase NEGATIVE, Urine RBC (Auto) NEGATIVE, Urine RBC NONE, Urine WBC NONE, Urine Squamous Epithelial Cells 0-2, Urine Crystals NONE, Urine Bacteria RARE, Urine Casts NONE, Urine Mucus NEGATIVE, Urine Culture Indicated CULTURE PENDING 10/22/19 17:44: Lactic Acid Level 0.86 10/22/19 19:15: Lab Scanned Report Referred Lab Report 10/23/19 00:11: Glucometer 144H 10/23/19 03:20: White Blood Count 9.0, Red Blood Count 2.67L, Hemoglobin 8.4L, Hematocrit 27L, Mean Corpuscular Volume 101H, Mean Corpuscular Hemoglobin 31, Mean Corpuscular Hemoglobin Concent 31L, Red Cell Distribution Width 15.9H, Platelet Count 190, Mean Platelet Volume 10.9H, Neutrophils (%) (Auto) 81H, Lymphocytes (%) (Auto) 10L, Monocytes (%) (Auto) 8, Eosinophils (%) (Auto) 1, Basophils (%) (Auto) 0, Neutrophils # (Auto) 7.3, Lymphocytes # (Auto) 0.9L, Monocytes # (Auto) 0.7, Eosinophils # (Auto) 0.1, Basophils # (Auto) 0.0, Sodium Level 141, Potassium Level 3.2L, Chloride Level 113H, Carbon Dioxide Level 20L, Anion Gap 8, Blood Urea Nitrogen 32H, Creatinine 1.78H, Estimat Glomerular Filtration Rate 37, BUN/Creatinine Ratio 18, Glucose Level 116H, Calcium Level 7.9L, Corrected Calcium 9.3, Phosphorus Level 3.9, Magnesium Level 1.9, Total Bilirubin 0.5, Aspartate Amino Transf (AST/SGOT) 13, Alanine Aminotransferase (ALT/SGPT) 6, Alkaline Phosphatase 123, B-Type Natriuretic Peptide 225.8H, Total Protein 4.7L, Albumin 2.3L 10/23/19 06:30: Prothrombin Time 34.3H, INR Comment 3.2H, Activated Partial Thromboplast Time 58H 10/23/19 11:23: Glucometer 89 10/23/19 11:25: Blood Gas Puncture Site RIGHT BRACHIAL, Blood Gas Patient Temperature 36.4, Arterial Blood pH 7.35L, Arterial Blood Partial Pressure CO2 37, Arterial Blood Partial Pressure O2 77L, Arterial Blood HCO3 20L, Arterial Blood Total CO2 21.1, Arterial Blood Oxygen Saturation 96, Arterial Blood Base Excess -4.8L, Carmelo Test POSITIVE, Blood Gas Ventilator Setting NO, Blood Gas Inspired Oxygen 4 L 10/23/19 17:26: Glucometer 94 10/23/19 23:00: Glucometer 68L 10/24/19 02:50: White Blood Count 8.3, Red Blood Count 2.78L, Hemoglobin 8.7L, Hematocrit 28L, Mean Corpuscular Volume 102H, Mean Corpuscular Hemoglobin 31, Mean Corpuscular Hemoglobin Concent 31L, Red Cell Distribution Width 16.0H, Platelet Count 189, Mean Platelet Volume 10.9H, Neutrophils (%) (Auto) 78H, Lymphocytes (%) (Auto) 12, Monocytes (%) (Auto) 9, Eosinophils (%) (Auto) 1, Basophils (%) (Auto) 0, Neutrophils # (Auto) 6.5, Lymphocytes # (Auto) 1.0, Monocytes # (Auto) 0.8, Eosinophils # (Auto) 0.1, Basophils # (Auto) 0.0, Sodium Level 143, Potassium Level 3.7, Chloride Level 117H, Carbon Dioxide Level 17L, Anion Gap 9, Blood Urea Nitrogen 33H, Creatinine 1.78H, Estimat Glomerular Filtration Rate 37, BUN/Creatinine Ratio 19, Glucose Level 52*L, Calcium Level 8.2L, Phosphorus Level 4.2, Magnesium Level 1.8, B-Type Natriuretic Peptide 311.8H 10/24/19 04:26: Glucometer 70 10/24/19 11:13: Glucometer 84 10/24/19 17:47: Glucometer 100 10/24/19 20:25: Vancomycin Level Trough 14.9 10/25/19 00:28: Glucometer 125H 10/25/19 03:09: White Blood Count 8.2, Red Blood Count 2.71L, Hemoglobin 8.4L, Hematocrit 27L, Mean Corpuscular Volume 101H, Mean Corpuscular Hemoglobin 31, Mean Corpuscular Hemoglobin Concent 31L, Red Cell Distribution Width 16.0H, Platelet Count 194, Mean Platelet Volume 10.4, Neutrophils (%) (Auto) 74, Lymphocytes (%) (Auto) 15, Monocytes (%) (Auto) 9, Eosinophils (%) (Auto) 2, Basophils (%) (Auto) 0, Neutr ophils # (Auto) 6.1, Lymphocytes # (Auto) 1.3, Monocytes # (Auto) 0.8, Eosinophils # (Auto) 0.1, Basophils # (Auto) 0.0, Sodium Level 143, Potassium Level 3.9, Chloride Level 117H, Carbon Dioxide Level 18L, Anion Gap 8, Blood Urea Nitrogen 32H, Creatinine 1.34H, Estimat Glomerular Filtration Rate 52, BUN/Creatinine Ratio 24, Glucose Level 110H, Calcium Level 8.7, Phosphorus Level 3.4, Magnesium Level 1.9 10/25/19 11:26: Glucometer 119H 10/25/19 17:17: Glucometer 214H 10/25/19 23:36: Glucometer 229H 10/26/19 04:40: White Blood Count 8.0, Red Blood Count 2.86L, Hemoglobin 9.0L, Hematocrit 28L, Mean Corpuscular Volume 99, Mean Corpuscular Hemoglobin 32, Mean Corpuscular Hemoglobin Concent 32, Red Cell Distribution Width 15.4H, Platelet Count 203, Mean Platelet Volume 10.7H, Neutrophils (%) (Auto) 71, Lymphocytes (%) (Auto) 15, Monocytes (%) (Auto) 12, Eosinophils (%) (Auto) 2, Basophils (%) (Auto) 0, Neutrophils # (Auto) 5.7, Lymphocytes # (Auto) 1.2, Monocytes # (Auto) 1.0, Eosinophils # (Auto) 0.2, Basophils # (Auto) 0.0, Sodium Level 142, Potassium Level 3.6, Chloride Level 115H, Carbon Dioxide Level 20L, Anion Gap 7, Blood Urea Nitrogen 30H, Creatinine 1.19, Estimat Glomerular Filtration Rate 59, BUN/Creatinine Ratio 25, Glucose Level 152H, Calcium Level 8.9, Phosphorus Level 2.6, Magnesium Level 1.9, Total Bilirubin 0.5, Direct Bilirubin 0.4H, Indirect Bilirubin 0.1, Aspartate Amino Transf (AST/SGOT) 17, Alanine Aminotransferase (ALT/SGPT) < 6, Alkaline Phosphatase 129, B-Type Natriuretic Peptide 596.8H, Tot al Protein 5.3L, Albumin 2.3L 10/26/19 05:02: Glucometer 150H 10/26/19 11:38: Glucometer 227H 10/26/19 17:31: Glucometer 252H 10/27/19 00:42: Glucometer 207H 10/27/19 05:30: White Blood Count 10.4, Red Blood Count 2.87L, Hemoglobin 8.9L, Hematocrit 28L, Mean Corpuscular Volume 99, Mean Corpuscular Hemoglobin 31, Mean Corpuscular Hemoglobin Concent 31L, Red Cell Distribution Width 15.4H, Platelet Count 203, Mean Platelet Volume 10.8H, Neutrophils (%) (Auto) 80H, Lymphocytes (%) (Auto) 5L, Monocytes (%) (Auto) 13H, Eosinophils (%) (Auto) 2, Basophils (%) (Auto) 0, Neutrophils # (Auto) 8.3H, Lymphocytes # (Auto) 0.5L, Monocytes # (Auto) 1.4H, Eosinophils # (Auto) 0.2, Basophils # (Auto) 0.0, Neutrophils % (Manual) 79, Lymphocytes % (Manual) 4, Monocytes % (Manual) 12, Eosinophils % (Manual) 4, Basophils % (Manual) 1, Band Neutrophils 0, Poikilocytosis MODERATE, Anisocytosis SLIGHT, Schistocytes SLIGHT, Sodium Level 138, Potassium Level 4.2, Chloride Level 110H, Carbon Dioxide Level 21, Anion Gap 7, Blood Urea Nitrogen 28H, Creatinine 1.23, Estimat Glomerular Filtration Rate 57, BUN/Creatinine Ratio 23, Glucose Level 108H, Calcium Level 9.1, Phosphorus Level 3.0, Magnesium Level 1.7, B-Type Natriuretic Peptide 385.1H 10/27/19 06:12: Glucometer 108 10/27/19 07:33: Glucometer 123H 10/27/19 11:54: Glucometer 167H 10/27/19 18:13: Glucometer 265H 10/27/19 23:14: Glucometer 217H 10/28/19 05:00: White Blood Count 11.9H, Red Blood Count 2.83L, Hemoglobin 8.9L, Hematocrit 28L, Mean Corpuscular Volume 97, Mean Corpuscular Hemoglobin 31, Mean Corpuscular Hemoglobin Concent 32, Red Cell Distribution Width 15.6H, Platelet Count 168, Mean Platelet Volume 11.2H, Neutrophils (%) (Auto) 83H, Lymphocytes (%) (Auto) 9L, Monocytes (%) (Auto) 7, Eosinophils (%) (Auto) 1, Basophils (%) (Auto) 0, Neutrophils # (Auto) 10.0H, Lymphocytes # (Auto) 1.1, Monocytes # (Auto) 0.8, Eosinophils # (Auto) 0.1, Basophils # (Auto) 0.0, Sodium Level 138, Potassium Level 4.6, Chloride Level 110H, Carbon Dioxide Level 20L, Anion Gap 8, Blood Urea Nitrogen 34H, Creatinine 1.55H, Estimat Glomerular Filtration Rate 44, BUN/Creatinine Ratio 22, Glucose Level 103, Calcium Level 8.5, Phosphorus Level 3.3, Magnesium Level 1.8 10/28/19 05:02: Glucometer 113H 10/28/19 09:20: Prothrombin Time 20.7H, INR Comment 1.7H, Activated Partial Thromboplast Time 47H, Lactic Acid Level 1.53 10/28/19 11:53: Glucometer 97 10/28/19 17:32: Glucometer 105 10/29/19 00:06: Glucometer 140H Microbiology 10/27/19 Catheter Tip Culture - Final, Complete No growth 10/22/19 MRSA Screen - Final, Complete 10/22/19 Urine Culture - Final, Complete NO GROWTH Laboratory Tests 10/22/19 15:40 10/23/19 03:20 10/24/19 02:50 10/25/19 03:09 10/26/19 04:40 10/27/19 05:30 10/28/19 05:00 Pending Labs Microbiology Date/Time Source Procedure Growth Status 10/27/19 12:05 Central Line Catheter Tip Culture - Final No growth Complete 10/22/19 20:30 Nasal MRSA Screen - Final Complete 10/22/19 16:50 Nasopharynx Influenza Types A,B Antigen (JANA) - Final Complete 10/22/19 16:40 Peripheral Jugular Blood Culture - Final Staph, Coag Neg ([employer]) Complete 10/22/19 16:00 Urine Patel Cath Urine Culture - Final NO GROWTH Complete 10/22/19 15:40 Peripheral Rt Ac Blood Culture - Final No growth Complete Laboratory Tests 10/22/19 15:40: White Blood Count 12.1, Red Blood Count 3.33, Hemoglobin 10.4, Hematocrit 33, Mean Corpuscular Volume 100, Mean Corpuscular Hemoglobin 31, Mean Corpuscular Hemoglobin Concent 31, Red Cell Distribution Width 15.9, Platelet Count 198, Mean Platelet Volume 11.6, Neutrophils (%) (Auto) 76, Lymphocytes (%) (Auto) 13, Monocytes (%) (Auto) 10, Eosinophils (%) (Auto) 1, Basophils (%) (Auto) 0, Neutrophils # (Auto) 9.2, Lymphocytes # (Auto) 1.5, Monocytes # (Auto) 1.2, Eosinophils # (Auto) 0.1, Basophils # (Auto) 0.0, Prothrombin Time 45.1, INR Comment 4.5, Activated Partial Thromboplast Time 60, Sodium Level 140, Potassium Level 3.6, Chloride Level 105, Carbon Dioxide Level 23, Anion Gap 12, Blood Urea Nitrogen 34, Creatinine 1.91, Estimat Glomerular Filtration Rate 34, BUN/Creatinine Ratio 18, Glucose Level 182, Lactic Acid Level 2.21, Calcium Level 8.8, Corrected Calcium 9.8, Total Bilirubin 0.6, Aspartate Amino Transf (AST/SGOT) 13, Alanine Aminotransferase (ALT/SGPT) < 6, Alkaline Phosphatase 154, Troponin I 0.075, Total Protein 5.5, Albumin 2.7 10/22/19 15:45: Glucometer 197 10/22/19 16:00: Urine Color YELLOW, Urine Clarity SL CLOUDY, Urine pH 5.0, Urine Specific Gravit y 1.025, Urine Protein 1+, Urine Glucose (UA) 1+, Urine Ketones TRACE, Urine Nitrite NEGATIVE, Urine Bilirubin NEGATIVE, Urine Urobilinogen 0.2, Urine Leukocyte Esterase NEGATIVE, Urine RBC (Auto) NEGATIVE, Urine RBC NONE, Urine WBC NONE, Urine Squamous Epithelial Cells 0-2, Urine Crystals NONE, Urine Bacteria RARE, Urine Casts NONE, Urine Mucus NEGATIVE, Urine Culture Indicated CULTURE PENDING 10/22/19 17:44: Lactic Acid Level 0.86 10/22/19 19:15: Lab Scanned Report Referred Lab Report 10/23/19 00:11: Glucometer 144 10/23/19 03:20: White Blood Count 9.0, Red Blood Count 2.67, Hemoglobin 8.4, Hematocrit 27, Mean Corpuscular Volume 101, Mean Corpuscular Hemoglobin 31, Mean Corpuscular Hemoglobin Concent 31, Red Cell Distribution Width 15.9, Platelet Count 190, Mean Platelet Volume 10.9, Neutrophils (%) (Auto) 81, Lymphocytes (%) (Auto) 10, Monocytes (%) (Auto) 8, Eosinophils (%) (Auto) 1, Basophils (%) (Auto) 0, Neutrophils # (Auto) 7.3, Lymphocytes # (Auto) 0.9, Monocytes # (Auto) 0.7, Eosinophils # (Auto) 0.1, Basophils # (Auto) 0.0, Sodium Level 141, Potassium Level 3.2, Chloride Level 113, Carbon Dioxide Level 20, Anion Gap 8, Blood Urea Nitrogen 32, Creatinine 1.78, Estimat Glomerular Filtration Rate 37, BUN/Creatinine Ratio 18, Glucose Level 116, Calcium Level 7.9, Corrected Calcium 9.3, Phosphorus Level 3.9, Magnesium Level 1.9, Total Bilirubin 0.5, Aspartate Amino Transf (AST/SGOT) 13, Alanine Aminotransferase (ALT/SGPT) 6, Alkaline Phosphatase 123, B-Type Natriuretic Peptide 225.8, Total Protein 4.7, Albumin 2.3 10/23/19 06:30: Prothrombin Time 34.3, INR Comment 3.2, Activated Partial Thromboplast Time 58 10/23/19 11:23: Glucometer 89 10/23/19 11:25: Blood Gas Puncture Site RIGHT BRACHIAL, Blood Gas Patient Temperature 36.4, Arterial Blood pH 7.35, Arterial Blood Partial Pressure CO2 37, Arterial Blood Partial Pressure O2 77, Arterial Blood HCO3 20, Arterial Blood Total CO2 21.1, Arterial Blood Oxygen Saturation 96, Arterial Blood Base Excess -4.8, [place] Test POSITIVE, Blood Gas Ventilator Setting NO, Blood Gas Inspired Oxygen 4 L 10/23/19 17:26: Glucometer 94 10/23/19 23:00: Glucometer 68 10/24/19 02:50: White Blood Count 8.3, Red Blood Count 2.78, Hemoglobin 8.7, Hematocrit 28, Mean Corpuscular Volume 102, Mean Corpuscular Hemoglobin 31, Mean Corpuscular Hemoglobin Concent 31, Red Cell Distribution Width 16.0, Platelet Count 189, Mean Platelet Volume 10.9, Neutrophils (%) (Auto) 78, Lymphocytes (%) (Auto) 12, Monocytes (%) (Auto) 9, Eosinophils (%) (Auto) 1, Basophils (%) (Auto) 0, Neutrophils # (Auto) 6.5, Lymphocytes # (Auto) 1.0, Monocytes # (Auto) 0.8, Eosinophils # (Auto) 0.1, Basophils # (Auto) 0.0, Sodium Level 143, Potassium Level 3.7, Chloride Level 117, Carbon Dioxide Level 17, Anion Gap 9, Blood Urea Nitrogen 33, Creatinine 1.78, Estimat Glomerular Filtration Rate 37, BUN/Creatinine Ratio 19, Glucose Level 52, Calcium Level 8.2, Phosphorus Level 4.2, Magnesium Level 1.8, B-Type Natriuretic Peptide 311.8 10/24/19 04:26: Glucometer 70 10/24/19 11:13: Glucometer 84 10/24/19 17:47: Glucometer 100 10/24/19 20:25: Vancomycin Level Trough 14.9 10/25/19 00:28: Glucometer 125 10/25/19 03:09: White Blood Count 8.2, Red Blood Count 2.71, Hemoglobin 8.4, Hematocrit 27, Mean Corpuscular Volume 101, Mean Corpuscular Hemoglobin 31, Mean Corpuscular Hemoglobin Concent 31, Red Cell Distribution Width 16.0, Platelet Count 194, Mean Platelet Volume 10.4, Neutrophils (%) (Auto) 74, Lymphocytes (%) (Auto) 15, Monocytes (%) (Auto) 9, Eosinophils (%) (Auto) 2, Basophils (%) (Auto) 0, Neutrophils # (Auto) 6.1, Lymphocytes # (Auto) 1.3, Monocytes # (Auto) 0.8, Eosinophils # (Auto) 0.1, Basophils # (Auto) 0.0, Sodium Level 143, Potassium Level 3.9, Chloride Level 117, Carbon Dioxide Level 18, Anion Gap 8, Blood Urea Nitrogen 32, Creatinine 1.34, Estimat Glomerular Filtration Rate 52, BUN/Creatinine Ratio 24, Glucose Level 110, Calcium Level 8.7, Phosphorus Level 3.4, Magnesium Level 1.9 10/25/19 11:26: Glucometer 119 10/25/19 17:17: Glucometer 214 10/25/19 23:36: Glucometer 229 10/26/19 04:40: White Blood Count 8.0, Red Blood Count 2.86, Hemoglobin 9.0, Hematocrit 28, Mean Corpuscular Volume 99, Mean Corpuscular Hemoglobin 32, Mean Corpuscular Hemoglobin Concent 32, Red Cell Distribution Width 15.4, Platelet Count 203, Mean Platelet Volume 10.7, Neutrophils (%) (Auto) 71, Lymphocytes (%) (Auto) 15, Monocytes (%) (Auto) 12, Eosinophils (%) (Auto) 2, Basophils (%) (Auto) 0, Neutrophils # (Auto) 5.7, Lymphocytes # (Auto) 1.2, Monocytes # (Auto) 1.0, Eosinophils # (Auto) 0.2, Basophils # (Auto) 0.0, Sodium Level 142, Potassium Level 3.6, Chloride Level 115, Carbon Dioxide Level 20, Anion Gap 7, Blood Urea Nitrogen 30, Creatinine 1.19, Estimat Glomerular Filtration Rate 59, BUN/Creatinine Ratio 25, Glucose Level 152, Calcium Level 8.9, Phosphorus Level 2.6, Magnesium Level 1.9, Total Bilirubin 0.5, Direct Bilirubin 0.4, Indirect Bilirubin 0.1, Aspartate Amino Transf (AST/SGOT) 17, Alanine Aminotransferase (ALT/SGPT) < 6, Alkaline Phosphatase 129, B-Type Natriuretic Peptide 596.8, Total Protein 5.3, Albumin 2.3 10/26/19 05:02: Glucometer 150 10/26/19 11:38: Glucometer 227 10/26/19 17:31: Glucometer 252 10/27/19 00:42: Glucometer 207 10/27/19 05:30: White Blood Count 10.4, Red Blood Count 2.87, Hemoglobin 8.9, Hematocrit 28, Mean Corpuscular Volume 99, Mean Corpuscular Hemoglobin 31, Mean Corpuscular Hem oglobin Concent 31, Red Cell Distribution Width 15.4, Platelet Count 203, Mean Platelet Volume 10.8, Neutrophils (%) (Auto) 80, Lymphocytes (%) (Auto) 5, Monocytes (%) (Auto) 13, Eosinophils (%) (Auto) 2, Basophils (%) (Auto) 0, Neutrophils # (Auto) 8.3, Lymphocytes # (Auto) 0.5, Monocytes # (Auto) 1.4, Eosinophils # (Auto) 0.2, Basophils # (Auto) 0.0, Neutrophils % (Manual) 79, Lymphocytes % (Manual) 4, Monocytes % (Manual) 12, Eosinophils % (Manual) 4, Basophils % (Manual) 1, Band Neutrophils 0, Poikilocytosis MODERATE, Anisocytosis SLIGHT, Schistocytes SLIGHT, Sodium Level 138, Potassium Level 4.2, Chloride Level 110, Carbon Dioxide Level 21, Anion Gap 7, Blood Urea Nitrogen 28, Creatinine 1.23, Estimat Glomerular Filtration Rate 57, BUN/Creatinine Ratio 23, Glucose Level 108, Calcium Level 9.1, Phosphorus Level 3.0, Magnesium Level 1.7, B-Type Natriuretic Peptide 385.1 10/27/19 06:12: Glucometer 108 10/27/19 07:33: Glucometer 123 10/27/19 11:54: Glucometer 167 10/27/19 18:13: Glucometer 265 10/27/19 23:14: Glucometer 217 10/28/19 05:00: White Blood Count 11.9, Red Blood Count 2.83, Hemoglobin 8.9, Hematocrit 28, Mean Corpuscular Volume 97, Mean Corpuscular Hemoglobin 31, Mean Corpuscular Hemoglobin Concent 32, Red Cell Distribution Width 15.6, Platelet Count 168, Mean Platelet Volume 11.2, Neutrophils (%) (Auto) 83, Lymphocytes (%) (Auto) 9, Monocytes (%) (Auto) 7, Eosinophils (%) (Auto) 1, Basophils (%) (Auto) 0, Neutrophils # (Auto) 10.0, Lymphocytes # (Auto) 1.1, Monocytes # (Auto) 0.8, Eosinophils # (Auto) 0.1, Basophils # (Auto) 0.0, Sodium Level 138, Potassium Level 4.6, Chloride Level 110, Carbon Dioxide Level 20, Anion Gap 8, Blood Urea Nitrogen 34, Creatinine 1.55, Estimat Glomerular Filtration Rate 44, BUN/Creatinine Ratio 22, Glucose Level 103, Calcium Level 8.5, Phosphorus Level 3.3, Magnesium Level 1.8 10/28/19 05:02: Glucometer 113 10/28/19 09:20: Prothrombin Time 20.7, INR Comment 1.7, Activated Partial Thromboplast Time 47, Lactic Acid Level 1.53 10/28/19 11:53: Glucometer 97 10/28/19 17:32: Glucometer 105 10/29/19 00:06: Glucometer 140 Discharge Home Medications: Active Scripts Active Levemir (Insulin Determir) 1,000 Units/10 Ml Soln 12 Units SQ HS Metoprolol Succinate 25 Mg Tab.er.24h 25 Mg PO DAILY PRN MDD 25 30 Days For systolic bp > 150 Reported Nitroglycerin 0.4 Mg Tab.subl 0.4 Mg SL UD PRN Xarelto (Rivaroxaban) 20 Mg Tablet 20 Mg PO HS Aspirin EC (Aspirin) 81 Mg Tablet.dr 81 Mg PO HS Plavix (Clopidogrel Bisulfate) 75 Mg Tablet 75 Mg PO DAILY Pantoprazole Sodium 40 Mg Tablet.dr 40 Mg PO DAILY Benicar (Olmesartan Medoxomil) 40 Mg Tablet 40 Mg PO DAILY Dulcolax (Bisacodyl) 5 Mg Tablet.dr 10 Mg PO HS PRN Carbidopa-Levo ER 50-200 Tab (Carbidopa/Levodopa) 1 Each Tablet.er 1 Tab PO 1300,2100 TAKES 2 TABS IN THE MORNING, 1 TAB AT 1300 AND 1 TAB AT BEDTIME Carbidopa-Levo ER 50-200 Tab (Carbidopa/Levodopa) 1 Each Tablet.er 2 Tab PO 0800 TAKES 2 TABS IN THE MORNING, 1 TAB AT 1300 AND 1 TAB AT BEDTIME Multivitamins (Multivitamin) 1 Each Tablet 1 Tab PO DAILY Flomax (Tamsulosin HCl) 0.4 Mg Cap 0.8 Mg PO 1730 TAKES 2 (0.4MG) CAPSULES Fish Oil 1,000 mg Softgel ([place]-3/Dha/Epa/Fish Oil) 1 Each Capsule 1,000 Mg PO BID Atorvastatin Calcium 40 Mg Tablet 40 Mg PO HS Gabapentin 300 Mg Capsule 300 Mg PO BID Glipizide 10 Mg Tablet 5 Mg PO DAILY TAKES 1/2 (10MG) TABLET Amiodarone HCl 200 Mg Tablet 200 Mg PO DAILY Amlodipine Besylate 10 Mg Tablet 5 Mg PO DAILY PRN TAKES 1/2 (10MG) TABLET Novolog Flexpen (Insulin Aspart) 300 Units/3 Ml Solution SQ TIDAC Instructions to patient/family Please see electronic discharge instructions given to patient. Clinical Quality Measures DVT/VTE Risk/Contraindication: Risk Factor Score Per Nursin RFS Level Per Nursing on Admit: 4+=Very High DENIZ KENT DO Oct 31, 2019 07:48
== END 2019-10-29 09:58 | disposition expired | DRG 871 ==
LOC: EDUNIT# 15:32 → ER 15:34 → ICU 19:15 → 4TH 10-25 08:10
PROVIDERS: ADMIT Family Medicine; ATTEND Family Medicine
PROC: 0W993ZZ Drainage of Right Pleural Cavity, Percutaneous Approach (ICD-10-PCS; principal; 2019-10-24)
PROC: 0W993ZZ Drainage of Right Pleural Cavity, Percutaneous Approach (ICD-10-PCS; 2019-10-27)
DX: A41.9 Sepsis, unspecified organism (principal); R65.21 Severe sepsis with septic shock; L89.513 Pressure ulcer of right ankle, stage 3; J18.9 Pneumonia, unspecified organism; J98.19 Other pulmonary collapse; A09 Infectious gastroenteritis and colitis, unspecified; J90 Pleural effusion, not elsewhere classified; E87.2 Acidosis; I50.32 Chronic diastolic (congestive) heart failure; E86.0 Dehydration; Z66 Do not resuscitate; E11.51 Type 2 diabetes mellitus with diabetic peripheral angiopathy without gangrene; G20 Parkinson's disease; F02.80 Dementia in other diseases classified elsewhere, unspecified severity, without behavioral disturbance, psychotic disturbance, mood disturbance, and anxiety; I48.0 Paroxysmal atrial fibrillation; I11.0 Hypertensive heart disease with heart failure; R33.8 Other retention of urine; N40.1 Benign prostatic hyperplasia with lower urinary tract symptoms; L40.9 Psoriasis, unspecified; K59.00 Constipation, unspecified; E78.00 Pure hypercholesterolemia, unspecified; Z79.4 Long term (current) use of insulin; Z79.01 Long term (current) use of anticoagulants; Z87.891 Personal history of nicotine dependence; Z95.5 Presence of coronary angioplasty implant and graft; Z95.0 Presence of cardiac pacemaker; S27.1XXD Traumatic hemothorax, subsequent encounter; E11.42 Type 2 diabetes mellitus with diabetic polyneuropathy; G47.30 Sleep apnea, unspecified; L89.152 Pressure ulcer of sacral region, stage 2
CPT/HCPCS: 36415; 36600; 51702; 70450; 71045; 71250; 74176; 76937; 80048; 80053; 80076; 80202; 81000; 82805; 82962; 83605; 83735; 83880; 84100; 84484; 85007; 85025; 85027; 85610; 85730; 87040; 87070; 87081; 87088; 87804; 88112; 88305; 93005; 93306; 94640; 94664; 94760; 96365; 96375